=== PATIENT | male | born 1965 | race Caucasian/White ===

== ENCOUNTER 2017-07-26 15:25 | Inpatient (IN) | payer BC, SELFPAY ==
[2017-07-26 15:27] VITALS: BP 147/95; PULSE 92; RESP 17; TEMP 36.3; O2SAT 98; BMI 29.5
--- NOTE | 2017-07-26 15:46 | ED.VISSUMM ---
- ER Visit Summary Date of Service: 07/26/17 Chief Complaint: Alcohol withdrawal History of Present Illness: The patient is a 52 M who is requesting detox from alcohol. He has been drinking about half a gallon per day for about two years. Previously to that he was sober for about 4-5 years. His last drink was around 3 PM today, he had 5 shots of bourbon. Denies any other drug use, but did detox from opioids in the past. He is a smoker. He has a history of diabetes, high cholesterol, COPD, chronic kidney disease, thrombocytopenia, anemia, gout. Physical Examination: Afebrile and vital signs unremarkable. Head and neck atraumatic. Heart regular. Lungs clear. Abdomen soft. Skin appears normal in color. Test Results: Labs, Tox screen, and alcohol pending. Emergency Department Course and Treatment: Benefit from inpatient alcohol withdrawal. He tells me that he has a history of DTs, but no seizure history. He was treated with Ativan while awaiting results. social worker speaking with him, and she will speak with [employer]. Janel from [employer] says that the patient meets criteria for admission per CIWA score. They will follow the patient. Alcohol level 261 and tox screen positive for marijuana. White count 4.2, hemoglobin 12, platelets 60. Sodium 146 and glucose 116. Alk phos 122 and AST 64. Patient has a history of anemia and thrombocytopenia. No active bleeding. Hospitalist was contacted for admission. Treatment Plan: As above Disposition: Admission Impression: 1. Alcohol withdrawal 2. Thrombocytopenia This note was generated with [employer] dictation software. It may contain incorrect words, spelling, and punctuation that were not noted in review of the chart prior to signing ED Disposition - Plan for ED Patient: Chief Complaint: Subst Abuse Referrals: Care Physician,No Primary [Primary Care Provider] -
--- NOTE | 2017-07-26 15:49 | ED.DCSUM_ITS ---
- ER Visit Summary Date of Service: 07/26/17 Chief Complaint: Alcohol withdrawal History of Present Illness: The patient is a 52 M who is requesting detox from alcohol. He has been drinking about half a gallon per day for about two years. Previously to that he was sober for about 4-5 years. His last drink was around 3 PM today, he had 5 shots of bourbon. Denies any other drug use, but did detox from opioids in the past. He is a smoker. He has a history of diabetes, high cholesterol, COPD, chronic kidney disease, thrombocytopenia, anemia, gout. Physical Examination: Afebrile and vital signs unremarkable. Head and neck atraumatic. Heart regular. Lungs clear. Abdomen soft. Skin appears normal in color. Test Results: Labs, Tox screen, and alcohol pending. Emergency Department Course and Treatment: Benefit from inpatient alcohol withdrawal. He tells me that he has a history of DTs, but no seizure history. He was treated with Ativan while awaiting results. lavender farm worker speaking with him, and she will speak with [employer]. Janel from [employer] says that the patient meets criteria for admission per CIWA score. They will follow the patient. Alcohol level 261 and tox screen positive for marijuana. White count 4.2, hemoglobin 12, platelets 60. Sodium 146 and glucose 116. Alk phos 122 and AST 64. Patient has a history of anemia and thrombocytopenia. No active bleeding. Hospitalist was contacted for admission. Treatment Plan: As above Disposition: Admission Impression: 1. Alcohol withdrawal 2. Thrombocytopenia This note was generated with [employer] dictation software. It may contain incorrect words, spelling, and punctuation that were not noted in review of the chart prior to signing ED Disposition - Plan for ED Patient: Chief Complaint: Subst Abuse Referrals: Care Physician,No Primary [Primary Care Provider] -
--- NOTE | 2017-07-26 15:56 | CASEMGMT ---
Social Work Note Referral from Dr. Mirza that pt would benefit from detox and rehab. Face to face with the pt to discuss discharge plan. Introduced self and role at [facility]. Pt reports to live with his and insurance is provided through her employer. Pt states that he is interested in detox, but not inpatient rehabilitation. Educate pt to [facility] program here at [facility], but inform that they would like to see that he is willing to participate in follow-up care. Pt states that he would be willing to do outpatient rehab. Inform that SW will notify [facility] who will come to evaluate him as soon as they are available. Placed call to Janel who states that she would need to verify insurance, confirm pt's motivation to with follow-up care and review CIWA scores. Janel to come to unit as soon as she is able. Updated ED staff. Shelby Mercado, INTERNAL AUDIT MANAGER, BLOCKING MACHINE TENDER
--- NOTE | 2017-07-26 16:06 | CASEMGMT ---
Social Work Note Janel from [facility] on unit to evaluate. Shelby Mercado, DUST MILL OPERATOR, FIELD MARKETING LEAD
[2017-07-26] MEDS: LORazepam 2 MG/ML Syringe 1 MG IV (16:12)
[2017-07-26 16:37] LABS: Absolute Lymphocyte Count 1.36 X10^3/ul (0.83-4.51); Absolute Neutrophil Count 2.3 X10^3/uL (2.0-7.7); Basophil# 0.05 X10^3/uL; Basophil% 1.2 % (0-1); Eosinophils% 2.4 % (0-5); Hematocrit 36.4 % (40-54); Lymphocyte # 1.36 X10^3/ul (4.0); Lymphocyte % 32.6 % (19-41); Mean Corpuscular Volume 97.1 fL (80-94); Mean Platelet Vol. 10.9 fl (6.2-12.0); Monocyte# 0.38 X10^3/uL; Monocyte% 9.1 % (0-10); Neutrophil # 2.27 X10^3/uL (2.7-7.7); Neutrophil % 54.5 % (47-70); Platelet Count 60 K/mm3 (150-450); RBC Distribution Width CV 14.3 % (11.6-14.6); RBC Distribution Width SD 47.6 fl (35.1-43.9); Red Blood Count 3.75 M/mm3 (4.6-6.2); White Blood Count 4.2 K/mm3 (4.4-11.0)
[2017-07-26 16:38] LABS: ALB/GLOB Ratio 0.8 RATIO (0.9-2.4); AST(SGOT) 64 U/L (15-37); Alanine Aminotransfer ALT/SGPT 35 U/L (16-61); Albumin, Serum 3.1 g/dL (3.2-5.0); Alkaline Phosphatase 122 U/L (45-117); Anion Gap 8 (5-15); BUN 15 mg/dL (7-18); BUN/Creat Ratio 12.3 RATIO (10-20); Calcium,Total 7.7 mg/dL (8.5-10.1); Chloride 115 mmol/L (98-107); Creatinine, Serum 1.22 mg/dL (0.70-1.30); EST Glomerular Filtration Rate 67 mL/min (>60); Est Glom Filt Rate - Afr Amer 81 mL/min (>60); Globulin 4.1 g/dL (2.2-4.2); Glucose 116 mg/dL (74-106); Potassium 3.8 mmol/L (3.5-5.1); Protein, Total 7.2 g/dL (6.4-8.2); Sodium Level 146 mmol/L (136-145)
[2017-07-26 16:57] LABS: POSITIVE COUNT NO; POSITIVE DIFFERENTIAL NO; POSITIVE MORPHOLOGY NO
--- NOTE | 2017-07-26 17:00 | CASEMGMT ---
Social Work Note Updated by Janel from [facility] that after redoing the pt's CIWA score he is appropriate for their program as long as he does not need to be admitted to the hospital for medical management rather than just stabilization. Janel updated physician. Shelby Mercado, FARM SPECIALIST, CHIEF LIBRARIAN MUSIC DEPARTMENT
[2017-07-26 17:14] LABS: Amphetamine Urine VISTA NEGATIVE (<1000 ng/mL); Barbiturate Urine VISTA NEGATIVE (< 200 ng/mL); Benzodiazepine Urine VISTA NEGATIVE (< 200 ng/mL); Cocaine Urine VISTA NEGATIVE (< 300 ng/mL); Ecstacy Urine VISTA NEGATIVE (< 500 ng/mL); Methadone Urine VISTA NEGATIVE (< 300 ng/mL); PCP Urine VISTA NEGATIVE (< 25 ng/mL); THC Urine VISTA POSITIVE (< 50 ng/mL); Vista UDS pH Range 5
[2017-07-26 17:25] VITALS: BP 150/110
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
[2017-07-26 18:01] VITALS: BP 131/94; PULSE 91; RESP 18; O2SAT 97
[2017-07-26 18:15] VITALS: BMI 28.5
[2017-07-26 18:17] VITALS: BMI 28.6
[2017-07-26 18:23] VITALS: BP 136/89; PULSE 85; RESP 16; TEMP 36.7; O2SAT 98
[2017-07-26] MEDS: LORazepam 1 MG Tablet PO (18:45)
[2017-07-26 18:46] LABS: Bedside Glucose 200 mg/dL (70-110)
[2017-07-26 19:23] LABS: Hemoglobin A1c 5.8 % (4.2-6.3)
[2017-07-26 19:25] LABS: International Normalized Ratio 1.4; Prothrombin Time (Protime)PT. 17.5 SECONDS (11.7-14.9)
[2017-07-26] MEDS: hydrOXYzine PAM 25 MG Capsule 50 MG PO (21:43)
[2017-07-26] MEDS: Methocarbamol 750 MG Tablet PO (21:43)
[2017-07-26] MEDS: Glucerna Shake 120 ML LIQUID PO (21:43)
[2017-07-26] MEDS: traZODone 50 MG Tablet PO (21:43)
[2017-07-26 21:45] VITALS: BP 129/91; PULSE 107; RESP 16; TEMP 36.9; O2SAT 94
[2017-07-26 21:50] LABS: Bedside Glucose 115 mg/dL (70-110)
[2017-07-27] VITALS (9 sets, daily range): BP systolic 138–160; BP diastolic 90–106; PULSE 86–102; RESP 16–20; TEMP 37–37.4; O2SAT 95–99
[2017-07-27] MEDS: LORazepam 1 MG Tablet PO ×6 (00:31→21:34)
[2017-07-27] MEDS: Methocarbamol 750 MG Tablet PO ×3 (04:47→18:33)
[2017-07-27 06:41] LABS: Bedside Glucose 104 mg/dL (70-110)
[2017-07-27] MEDS: hydrOXYzine PAM 25 MG Capsule 50 MG PO ×3 (06:43→19:31)
[2017-07-27] MEDS: cloNIDine HCl 0.1 MG Tablet PO ×5 (06:43→18:33)
--- NOTE | 2017-07-27 07:48 | PN_ITS ---
Patient Problems: Active and Suspected Problems Alcohol withdrawal (Acute) Vitals/I&O's: Vital Signs Temp Pulse Resp BP Pulse Ox 99.1 F 102 H 16 160/106 H 95 07/27/17 04:52 07/27/17 04:52 07/27/17 04:52 07/27/17 04:52 07/27/17 04:52 Oxygen Delivery Method Room Air Weight: 202 lb Body Mass Index (BMI) 28.5 Intake and Output for Last 24 Hours 07/25/17 07/26/17 07/27/17 23:59 23:59 23:59 Intake Total 530 / 530 Balance 530 / 530 Laboratory Results 07/26/17 18:39: POC Glucose 200 H 07/26/17 18:56: PT 17.5 H, INR 1.4 07/26/17 18:56: Hemoglobin A1c 5.8 07/26/17 21:43: POC Glucose 115 H 07/27/17 06:38: POC Glucose 104 Current Medications Acetaminophen (Tylenol) 500 mg PO Q4H PRN PRN PRN Reason: Temp > 100.4 F Albuterol Sulfate (Ventolin Aerosols) 2.5 mg INHALATION Q4H PRN PRN Reason: SOB &/OR WHEEZING Albuterol Sulfate (Ventolin Aerosols) 2.5 mg INHALATION Q6HWA.RT [facility] Last Admin: 07/26/17 19:45 Dose: Not Given Budesonide (Pulmicort Aerosol) 0.5 mg INHALATION Q12H.RT [facility] Last Admin: 07/26/17 19:45 Dose: Not Given Clonidine (Catapres) 0.1 mg PO Q2H PRN PRN PRN Reason: sweating/anxiety Last Admin: 07/27/17 06:43 Dose: 0.1 mg Dextrose (D50w Syringe) 0 gm IV X1 PRN; Protocol PRN Reason: Hypoglycemia Folic Acid (Folic Acid) 1 mg PO DAILY@0800 [facility] Glucagon () 1 mg IM .X1 PRN PRN Reason: Hypoglycemia Hydroxyzine Pamoate (Vistaril Pamoate Capsule) 50 mg PO Q6H PRN PRN PRN Reason: Mild Anxiety (score 1/3) Last Admin: 07/27/17 06:43 Dose: 50 mg Loperamide HCl (Imodium) 2 - 4 mg PO UD PRN PRN Reason: LOOSE STOOLS Lorazepam (Ativan) 1 mg PO Q4H SOL PRN Reason: Taper Stop: 07/29/17 23:59 Last Admin: 07/27/17 04:47 Dose: 1 mg Magnesium Hydroxide (Milk Of Magnesia) 30 ml PO DAILY PRN PRN PRN Reason: Constipation Methocarbamol (Methocarbamol) 750 mg PO Q6H PRN PRN PRN Reason: Muscle Aches Last Admin: 07/27/17 04:47 Dose: 750 mg Nicotine (Nicoderm Cq (Pbkc)) 21 mg TRANSDERM. DAILY [facility] Nutritional Formula (Lactose Free) (Glucerna Shake) 120 ml PO 4X/DAY [facility] Last Admin: 07/26/17 21:43 Dose: 120 ml Senna (Senokot) 1 tablet PO QHS PRN PRN Reason: Constipation Sodium Chloride () 5 - 30 ml IV UD PRN PRN Reason: SALINE FLUSH Thiamine HCl (Vitamin B1) 100 mg PO DAILYCM [facility] Trazodone HCl (Desyrel) 50 mg PO QHS [facility] Last Admin: 07/26/17 21:43 Dose: 50 mg Medical Necessity - Tobacco Use Smoking Status: Current every day smoker Assessment/Plan Active and Suspected Problems Alcohol withdrawal (Acute)
[2017-07-27] MEDS: Folic Acid 1 MG Tablet PO (08:04)
[2017-07-27] MEDS: Thiamine Hydrochloride 100 MG Tablet PO (08:04)
--- NOTE | 2017-07-27 08:49 | US_ITS ---
STUDY: ABDOMINAL ULTRASOUND - RIGHT UPPER QUADRANT REASON FOR VISIT: Male, 52 years old. History of hepatosplenomegaly. TECHNIQUE: Ultrasound evaluation of the right upper quadrant was performed with real-time and static lundberg-scale imaging. TECHNICAL QUALITY: Adequate. COMPARISON: Comparison is made with prior study dated February 28, 2017. FINDINGS: Liver: The liver is enlarged and measures 20.4 cm. There is increased echogenicity consistent with fatty infiltration. The bile ducts are within normal limits. There is hepatic color flow. The direction of portal flow is hepatopetal. There is no demonstrated mass lesion. Gallbladder: Normal distended gallbladder. The gallbladder wall measures 3.4 mm. There is a negative sonographic Delgado's sign. There is no pericholecystic fluid. There are no gallstones. Common Bile Duct (C.B.D.): The common bile duct measures 3.7 mm. Pancreas: There is nonvisualization of the pancreas due to overlying bowel gas. Right Kidney: Normal size of the right kidney. The right kidney measures 9.7 cm x 4.2 cm x 5.5 cm. Normal renal cortex. The right cortex measures 1.7 cm. There is no demonstrated renal mass or cyst. There is no right hydronephrosis. There is evidence of splenomegaly. The spleen measures 16.9 cm x 7.2 cm x 7.3 cm. Small amount of ascites. US/Abdomen Limited IMPRESSION: Hepatosplenomegaly. Small amount of ascites. Electronically Signed: Raad Mcdonough MD at 10:09 EDT Tel [phone], Service support ,
[2017-07-27] MEDS: Glucerna Shake 120 ML LIQUID PO ×3 (09:38→21:34)
--- NOTE | 2017-07-27 10:09 | CASEMGMT ---
Social Work Note SW received a call from TERRI Silver that pt has a referral for [facility]. TERRI Silver asked this worker to check with Janel at [facility] to see if she will be following up with pt. SW placed call to Janel at [phone] and per Janel she will be seeing pt today for [facility]. Plan: [facility] Maranda Carrillo FABRICATING MACHINE OPERATOR, TRAVEL REGISTERED NURSE PACU
[2017-07-27 11:50] LABS: Bedside Glucose 212 mg/dL (70-110)
--- NOTE | 2017-07-27 12:52 | CHAPLAIN ---
Type of Pastoral Visit _x__ Initial Visit ___ Follow-up Visit ___ On-call Visit ___ General Patient Visit ___ Spiritual Assessment ___ Family Conference ___ Bereavement ___ Rapid Response ___ Code Blue ___ Other (describe below) Pastoral Care Referral From _x__ Patient ___ Family ___ Nurse ___ Physician ___ Security Compliance Engineer ___ Log Manager ___ Other (describe below) Sacrament/Intervention _x__ Active listening ___ Anointing ___ Hindu ___ Bereavement ___ Communion ___ Juliette exploration ___ ___ Life review ___ Prayer ___ Reconciliation ___ Sacrament of Sick _x__ Supportive presence ___ Wedding ___ Other (describe below) Pastoral Comments
--- NOTE | 2017-07-27 15:29 | PN_ITS ---
<Timoteo Cabrera - Last Filed: 07/27/17 15:23> Patient Problems: Active and Suspected Problems Alcohol withdrawal (Acute) Subjective: Current complaints include tremor in the upper extremities with muscle twitching in the left arm, nausea without vomiting, agitation, restlessness, hadache. No dizzy or LH at rest or with ambulation to the bathroom. Denies hx of withdrawal seizure. - Physical Exam General: Alert, Oriented x3, Cooperative HEENT: Atraumatic, PERRLA, EOMI, Normocephalic Neck: Supple, No JVD, Negative Carotid Bruits Lungs: Clear to auscultation, Normal air movement Cardiovascular: Regular rate, No murmurs Abdomen: Bowel Sounds Present, Soft, Non Tender Extremities: No edema, Capillary Refill Less than 3 Seconds Skin: No rashes, No breakdown Musculoskeletal: No Tenderness to Palpation of Joints or Extremities Neurological: Cranial nerves II-XII grossly intact, - - tremor BL upper ext, neg asterixis. Psych/Mental Status: Normal Affect, Appropriate, Alert and oriented to time, place, person, mood and affect Vital Signs Temp Pulse Resp BP Pulse Ox 98.6 F 90 18 139/96 H 98 07/27/17 12:55 07/27/17 12:55 07/27/17 12:55 07/27/17 12:55 07/27/17 12:52 Oxygen Delivery Method Room Air Weight: 91.6 kg Body Mass Index (BMI) 28.5 Intake and Output for Last 24 Hours 07/25/17 07/26/17 07/27/17 23:59 23:59 23:59 Intake Total 890 / 890 Balance 890 / 890 Laboratory Tests Past 24 Hrs 07/26/17 07/26/17 18:56 18:56 PT 17.5 H INR 1.4 Hemoglobin A1c 5.8 POC Glucose 07/27/17 07/27/17 07/26/17 11:46 06:38 21:43 POC Glucose 212 H 104 115 H 07/26/17 18:39 POC Glucose 200 H Medical Necessity - Tobacco Use Smoking Status: Current every day smoker Assessment/Plan Active and Suspected Problems Alcohol withdrawal (Acute) 1. Acute alcohol withdrawal - continue medical stabilization protocol, thiamine , folic acid. Current symtpoms include tremor, agitation, restlessness, nausea. Mildly elevated LFTs. Abdominal US with hepatosplenomegaly, small amount of ascites. 2. Pancytopenia, etiology unclear, possibly 2/2 liver disease. 3. CKD II - follows Dr. Baig as outpatient. GFR 67. 4. DMt2 - SSI, A1C 5.8 (prediabetes level) Carb controlled diet. 5. Mild htn - if continues through admission likely would benefit from starting antihypertensive at DC. Medical Stabilization Day 2 of 4. This patient was seen by Timoteo Cabrera PA-C under the supervision of Doctor Celio. <Tariq Pickens - Last Filed: 07/27/17 17:13> Subjective: Patient complaint of black stool before admission. He did not had any GI bleed. Complaint of withdrawal symptoms including nausea restlessness, muscle cramps. Abdominal sonogram revealed fatty infiltration of liver with splenomegaly - Physical Exam Lungs: Clear to auscultation, Normal air movement Cardiovascular: Regular rate, No murmurs Vital Signs Temp Pulse Resp BP Pulse Ox 99.2 F H 86 20 H 149/98 H 98 07/27/17 16:00 07/27/17 16:00 07/27/17 16:00 07/27/17 16:00 07/27/17 16:00 Oxygen Delivery Method Room Air Weight: 201 lb 15.095 oz Body Mass Index (BMI) 28.5 Intake and Output for Last 24 Hours 07/25/17 07/26/17 07/27/17 23:59 23:59 23:59 Intake Total 890 / 890 Balance 890 / 890 Laboratory Tests Past 24 Hrs 07/26/17 07/26/17 18:56 18:56 PT 17.5 H INR 1.4 Hemoglobin A1c 5.8 POC Glucose 07/27/17 07/27/17 07/27/17 16:32 11:46 06:38 POC Glucose 134 H 212 H 104 07/26/17 07/26/17 21:43 18:39 POC Glucose 115 H 200 H Assessment/Plan This patient was seen in conjunction with Timoteo CASAREZ. I have independently interviewed and examined the patient and reviewed pertinent history, examination findings, laboratory and plan of management. I have reviewed the note and agree with the documented findings with the few additional points. In brief, patient is admitted for alcohol withdrawal with chronic alcohol use and dependence. He also has pancytopenia secondary to alcoholic liver disease with WBC count 4.1.2 platelet count 60,000. Patient also complained of back stool before admission 60 of melena. Discussed with GI Dr. Butterfield. He suggested to call tomorrow after CBC. If hemoglobin drops, will need EGD. Abdominal ultrasound shows hepatosplenomegaly and small ascites. On Protonix 40 mg IV every 12 hourly, CBC tomorrow a.m. Avoid NSAIDs, antiplatelet agent and steroids. I have discussed my assessment with Timoteo CASAREZ and orders have been reviewed. Laboratory Results 07/26/17 16:15: Ethyl Alcohol 261.0 07/26/17 16:35: Urine Opiates Screen NEGATIVE, Urine Methadone Screen NEGATIVE, Ur Barbiturates Screen NEGATIVE, Ur Phencyclidine Scrn NEGATIVE, Ur Amphetamines Screen NEGATIVE, U Methamphetamin-MDMA NEGATIVE, U Benzodiazepines Scrn NEGATIVE, Urine Cocaine Screen NEGATIVE, U Cannabinoids Screen POSITIVE H 07/26/17 18:39: POC Glucose 200 H 07/26/17 18:56: PT 17.5 H, INR 1.4 07/26/17 18:56: Hemoglobin A1c 5.8 07/26/17 21:43: POC Glucose 115 H 07/27/17 06:38: POC Glucose 104 07/27/17 11:46: POC Glucose 212 H 07/27/17 16:32: POC Glucose 134 H Clinical Impression(s) from Imaging Studies Abdomen Ultrasound 07/27/17 08:49 IMPRESSION: Hepatosplenomegaly. Small amount of ascites. Code Visit Inpatient E&M: 62101 Subs Hosp L3
[2017-07-27 16:36] LABS: Bedside Glucose 134 mg/dL (70-110)
--- NOTE | 2017-07-27 17:43 | NURSING ---
SAID NURSE IN TO PT ROOM, PT OPENS EYES UPON NURSE ENTERING ROOM. UPDATED ON NEW ORDERS RECEIVED- PT STATES I DO NOT WANT ONE OF THOSE THINGS IN MY VEINS. FURTHER EDUCATION PROVIDED ON ORDERS/MEDS/TREATMENTS ORDERED BY MD/ WELL PT RIGHTS. PT POLITE BUT STATES HE DOES NOT WANT AN IV AT THIS TIME. SAID NURSE WILL NOTIFY MD OF PT REFUSING IV START AT THIS TIME.
[2017-07-27] MEDS: Pantoprazole Sodium 40 MG Tablet PO (18:32)
[2017-07-27] MEDS: traZODone 50 MG Tablet PO (21:34)
--- NOTE | 2017-07-28 04:05 | NURSING ---
Addendum entered by Deana Bey 07/28/17 07:10: Patient a&o x3 prior to leaving. patient does not appear to be at risk of harm to himself or others. Original Note: This RN into patient room to complete rounding and medicate patient. Patient not in room no belongs in room or closet. supervisor quilting notified and floor checked for patient. Patient not found on floor. Nursing bleach supervisor and Dr. Egan notified by charge.
--- NOTE | 2017-07-28 04:08 | NURSING ---
Notified supervisor composing room that patient has left AMA without notifying staff. Notified Hospitalist as well that patient has left.
--- NOTE | 2017-07-28 07:14 | NURSING ---
This nurse called patient's home phone and left a message for patient to call the floor to let know if is okay.
--- NOTE | 2017-07-28 07:35 | PCM.DC.SUM ---
Discharge Date and Diagnosis Date of Admission: 07/26/17 - Secondary Discharge Diagnosis Chronic Problems CKD (chronic kidney disease) stage 2, GFR 60-89 ml/min (Chronic) Pancytopenia (Chronic) CRF (chronic renal failure) (Chronic) COPD (chronic obstructive pulmonary disease) (Chronic) HLD (hyperlipidemia) (Chronic) Nicotine dependence (Chronic) Diabetes mellitus, type II (Chronic) Hyperuricemia (Chronic) History of positive PPD, untreated (Chronic) Gout (Chronic) EtOH dependence (Chronic) Hospital Course and Treatment Operations: None Summary of Care Provided: The patient is a 52 year old M [] Home Medications: Medications to take at Discharge Albuterol Inhaler [Ventolin Hfa (SP)] 1 - 2 puff INHALATION Q4H PRN PRN 02/27/17 Mometasone/Formoterol [Dulera 200 Mcg/5 Mcg Inhaler] 2 puff IH BID PRN PRN 07/26/17 Primary Care Physician: Care Physician,No Primary [Primary Care Provider] - Medical Necessity - Tobacco Use Smoking Status: Current every day smoker
--- NOTE | 2017-07-28 13:42 | PCM.DC.SUM ---
<Timoteo Cabrera - Last Filed: 07/28/17 13:42> Discharge Date and Diagnosis Date of Admission: 07/26/17 Date of Discharge: 07/28/17 - Primary Discharge Diagnosis Acute alcohol withdrawal Suspected mild blood loss anemia with melanotic stools pancytopenia CKDII HTN - Secondary Discharge Diagnosis Chronic Problems CKD (chronic kidney disease) stage 2, GFR 60-89 ml/min (Chronic) Pancytopenia (Chronic) CRF (chronic renal failure) (Chronic) COPD (chronic obstructive pulmonary disease) (Chronic) HLD (hyperlipidemia) (Chronic) Nicotine dependence (Chronic) Diabetes mellitus, type II (Chronic) Hyperuricemia (Chronic) History of positive PPD, untreated (Chronic) Gout (Chronic) EtOH dependence (Chronic) Hospital Course and Treatment Imaging Results: US/Abdomen Limited IMPRESSION: Hepatosplenomegaly. Small amount of ascites. Consults: [facility] - GI Operations: None Procedures: None Summary of Care Provided: Physical exam on day of discharge: Completed as patient left AMA before he can be examined. Hospital Course: The patient is a 52 year old M with a hx of alcoholism, htn, and CKD II who presented to the ER with acute alcohol intoxication seeking help for detox. He was admitted to the hospital on the alcohol withdrawal protocol. His tox screen also revealed cannabinoids. Glucose was elevated and his A1C was prediabetic at 5.8. He had panyctopenia with a hgb of 12 and platelets of 60 and did report some melanotic stools prior to presentation. An ultrasound of his abdomen revealed hepatosplenomegaly and a small amount of ascites. Dr. Butterfield was consulted who planned to do an EGD however the patient left AGAINST MEDICAL ADVICE early in the morning on 07.28.2017. [] Discharge Diet: - - no recommendations made as pt left AMA Discharge Activity: - - no recommendations made as pt left AMA Home Medications: Medications to take at Discharge Albuterol Inhaler [Ventolin Hfa (SP)] 1 - 2 puff INHALATION Q4H PRN PRN 02/27/17 Mometasone/Formoterol [Dulera 200 Mcg/5 Mcg Inhaler] 2 puff IH BID PRN PRN 07/26/17 Primary Care Physician: Care Physician,No Primary [Primary Care Provider] - Disposition: Against Medical Advice Minutes spent on discharge:: 35 Patient Condition:: Guarded Medical Necessity - Tobacco Use Smoking Status: Current every day smoker Meaningful Use Info Meaningful Use Diagnoses (Choose all that apply): None applicable <Tariq Pickens - Last Filed: 07/28/17 16:45> Discharge Date and Diagnosis - Secondary Discharge Diagnosis Chronic Problems CKD (chronic kidney disease) stage 2, GFR 60-89 ml/min (Chronic) Pancytopenia (Chronic) CRF (chronic renal failure) (Chronic) COPD (chronic obstructive pulmonary disease) (Chronic) HLD (hyperlipidemia) (Chronic) Nicotine dependence (Chronic) Diabetes mellitus, type II (Chronic) Hyperuricemia (Chronic) History of positive PPD, untreated (Chronic) Gout (Chronic) EtOH dependence (Chronic) Hospital Course and Treatment Summary of Care Provided: In brief, patient is admitted for alcohol withdrawal with chronic alcohol use and dependence. He also has pancytopenia secondary to alcoholic liver disease with WBC count 4.1.2 platelet count 60,000. Patient also complained of back stool before admission 60 of melena. Discussed with GI Dr. Butterfield on 07/27/2017. He suggested to call tomorrow after CBC. There was plan for CBC motor expert today and if there is drop in hematocrit, possible EGD. But patient signed AMA and left motor expert before blood draw. Abdominal ultrasound shows hepatosplenomegaly and small ascites. Patient was on Protonix 40 mg IV every 12 hourly I have discussed my assessment with Timoteo CASAREZ and orders have been reviewed. [] Code Visit Inpatient E&M: 19161 Disch Hosp
--- NOTE | 2017-07-28 13:52 | DS.PCM_ITS ---
<Timoteo Cabrera - Last Filed: 07/28/17 13:42> Discharge Date and Diagnosis Date of Admission: 07/26/17 Date of Discharge: 07/28/17 - Primary Discharge Diagnosis Acute alcohol withdrawal Suspected mild blood loss anemia with melanotic stools pancytopenia CKDII HTN - Secondary Discharge Diagnosis Chronic Problems CKD (chronic kidney disease) stage 2, GFR 60-89 ml/min (Chronic) Pancytopenia (Chronic) CRF (chronic renal failure) (Chronic) COPD (chronic obstructive pulmonary disease) (Chronic) HLD (hyperlipidemia) (Chronic) Nicotine dependence (Chronic) Diabetes mellitus, type II (Chronic) Hyperuricemia (Chronic) History of positive PPD, untreated (Chronic) Gout (Chronic) EtOH dependence (Chronic) Hospital Course and Treatment Imaging Results: US/Abdomen Limited IMPRESSION: Hepatosplenomegaly. Small amount of ascites. Consults: [facility] - GI Operations: None Procedures: None Summary of Care Provided: Physical exam on day of discharge: Completed as patient left AMA before he can be examined. Hospital Course: The patient is a 52 year old M with a hx of alcoholism, htn, and CKD II who presented to the ER with acute alcohol intoxication seeking help for detox. He was admitted to the hospital on the alcohol withdrawal protocol. His tox screen also revealed cannabinoids. Glucose was elevated and his A1C was prediabetic at 5.8. He had panyctopenia with a hgb of 12 and platelets of 60 and did report some melanotic stools prior to presentation. An ultrasound of his abdomen revealed hepatosplenomegaly and a small amount of ascites. Dr. Butterfield was consulted who planned to do an EGD however the patient left AGAINST MEDICAL ADVICE early in the morning on 07.28.2017. [] Discharge Diet: - - no recommendations made as pt left AMA Discharge Activity: - - no recommendations made as pt left AMA Home Medications: Medications to take at Discharge Albuterol Inhaler [Ventolin Hfa (SP)] 1 - 2 puff INHALATION Q4H PRN PRN Mometasone/Formoterol [Dulera 200 Mcg/5 Mcg Inhaler] 2 puff IH BID PRN PRN 07/26 Primary Care Physician: Care Physician,No Primary [Primary Care Provider] - Disposition: Against Medical Advice Minutes spent on discharge:: 35 Patient Condition:: Guarded Medical Necessity - Tobacco Use Smoking Status: Current every day smoker Meaningful Use Info Meaningful Use Diagnoses (Choose all that apply): None applicable <Tariq Pickens - Last Filed: 07/28/17 16:45> Discharge Date and Diagnosis - Secondary Discharge Diagnosis Chronic Problems CKD (chronic kidney disease) stage 2, GFR 60-89 ml/min (Chronic) Pancytopenia (Chronic) CRF (chronic renal failure) (Chronic) COPD (chronic obstructive pulmonary disease) (Chronic) HLD (hyperlipidemia) (Chronic) Nicotine dependence (Chronic) Diabetes mellitus, type II (Chronic) Hyperuricemia (Chronic) History of positive PPD, untreated (Chronic) Gout (Chronic) EtOH dependence (Chronic) Hospital Course and Treatment Summary of Care Provided: In brief, patient is admitted for alcohol withdrawal with chronic alcohol use and dependence. He also has pancytopenia secondary to alcoholic liver disease with WBC count 4.1.2 platelet count 60,000. Patient also complained of back stool before admission 60 of melena. Discussed with GI Dr. Butterfield on 2017. He suggested to call tomorrow after CBC. There was plan for CBC laboratory coordinator today and if there is drop in hematocrit, possible EGD. But patient signed AMA and left laboratory coordinator before blood draw. Abdominal ultrasound shows hepatosplenomegaly and small ascites. Patient was on Protonix 40 mg IV every 12 hourly I have discussed my assessment with Timtoeo CASAREZ and orders have been reviewed. [] Code Visit Inpatient E&M: 92008 Disch Hosp
== END 2017-07-28 04:12 | disposition left against medical advice (07) | DRG 894 ==
LOC: ED 17:40 → MS2 17:47
PROVIDERS: Emergency Provider Emergency Medicine; Visit Provider Internal Medicine
DX: F10.239 Alcohol dependence with withdrawal, unspecified (principal); D61.818 Other pancytopenia; R18.8 Other ascites; K92.1 Melena; F10.229 Alcohol dependence with intoxication, unspecified; Y90.8 Blood alcohol level of 240 mg/100 ml or more; D50.0 Iron deficiency anemia secondary to blood loss (chronic); J44.9 Chronic obstructive pulmonary disease, unspecified; E11.22 Type 2 diabetes mellitus with diabetic chronic kidney disease; I12.9 Hypertensive chronic kidney disease with stage 1 through stage 4 chronic kidney disease, or unspecified chronic kidney disease; N18.2 Chronic kidney disease, stage 2 (mild); E78.5 Hyperlipidemia, unspecified; F17.200 Nicotine dependence, unspecified, uncomplicated
CPT/HCPCS: 36415; 76705; 80053; 80307; 80320; 82962; 83036; 85025; 85610; 97802; 99284; 99406; G0480

== ENCOUNTER 2017-12-30 17:46 | Emergency (ER) | payer BC, SELFPAY ==
[2017-12-30 17:48] VITALS: BP 153/100; PULSE 104; RESP 17; TEMP 36.9; O2SAT 97; BMI 28.7
--- NOTE | 2017-12-30 18:05 | EKG12_ITS ---
Test Reason : SOB Blood Pressure : / mmHG Vent. Rate : 102 BPM Atrial Rate : 102 BPM P-R Int : 158 ms QRS Dur : 098 ms QT Int : 346 ms P-R-T Axes : 053 034 030 degrees QTc Int : 450 ms Sinus tachycardia Septal infarct , age undetermined Abnormal ECG Confirmed by JENNIFER TANNER, IAM ([id number]), electronic news gathering editor LA GREGORY ([id number]) on 01/03/2018 3:06:59 PM Referred By: Joana Mosley Confirmed By:IAM RODRIGUEZ MD
--- NOTE | 2017-12-30 18:06 | CT_ITS ---
STUDY: CTA CHEST REASON FOR EXAM: Male, 52 years old. HEMOPTYSIS X 5 DAYS RADIATION DOSAGE (If Supplied By Facility): CTDIvol = ( 13.8 ) mGy, DLP = ( 684.54 ) mGycm TECHNIQUE: The examination was performed with the intravenous administration of 100 ml of Isovue 370 contrast material. Post-processing of the angiographic images was performed, with multiplanar reformation and 3D reconstruction. Individualized dose optimization techniques were used for this CT. COMPARISON: None. FINDINGS: Normal enhancement of the main pulmonary artery and right and left pulmonary arteries. Normal enhancement of the bilateral peripheral pulmonary arteries. There is no demonstrated pulmonary embolism. Normal thoracic aorta and visualized great vessels. There is no demonstrated aortic dissection. Normal heart and pericardium. Normal mediastinum. Normal hilar regions. Normal visualized trachea and bronchi. The lungs are well expanded. Normal pulmonary parenchyma. Normal pleura. Normal chest wall structures. There are degenerative changes of thoracic spine. The liver is nodular in appearance. A focal mass is not identified. The finding is consistent for hepatic cirrhosis. Abdominal ascites CT/CTA Chest W/WO Contrast IMPRESSION: Hepatic cirrhosis Abdominal ascites No demonstrated pulmonary embolism or arterial dissection. Electronically Signed: Abimael Cortez MD at 20:20 EDT , Service support ,
[2017-12-30 18:11] VITALS: O2SAT 97
[2017-12-30 18:26] VITALS: PULSE 98; RESP 14
[2017-12-30] MEDS: Albuterol 2.5 MG/3 ML VIAL.NEB. INHALATION ×2 (18:26→18:47)
[2017-12-30] MEDS: Ipratropium/Albuterol Sulfate 3 ML AMPUL.NEB INHALATION (18:26)
[2017-12-30 18:48] VITALS: PULSE 105; RESP 14
[2017-12-30 21:29] VITALS: BP 158/108; PULSE 104
--- NOTE | 2017-12-30 21:44 | ED.VISSUMM ---
- ER Visit Summary Date of Service: 12/30/17 Chief Complaint: Hemoptysis, shortness of breath, dyspnea on exertion, COPD History of Present Illness: The patient is a 52 M who presents because of hemoptysis for the past 5 days. He has history of COPD. He reports cough and shortness of breath with dyspnea on exertion for the past week. He was a smoker of 2 packs per day. He presently is smoking 1/2-1 pack per day. He denies weight loss but does admit to night sweats. Review of prior records indicates he had a positive PPD with no follow-up or treatment. He does admit to drinking daily. He denies ocular, visual or auditory symptoms. He denies chest pain. He denies nausea, vomiting or diarrhea. He does report increased abdominal girth with weight gain. He denies orthopnea or PND. He denies black or maroon stool. He denies change in the color of his urine, dysuria, frequency, urgency or hematuria. Blood work was obtained 2 weeks ago and his CBC was unremarkable. Electrolyte panel including ALT was normal. A1c was 6.8. Lipid panel was normal chest pain symptoms No demonstrated pulmonary embolism or arterial dissection.mal. Triglycerides, HDL and LDL were unremarkable. TSH was elevated at 7.65. Physical Examination: Patient appears older than reported age. Head is atraumatic normocephalic. Pupils are equal round reactive. Extraocular muscles are intact. TMs are pearly white with landmarks noted. Nares patent with no drainage. Posterior pharynx without erythema or exudate. Uvula is midline. There is no dysphonia or dysphasia. Trachea is midline. There is no stridor with auscultation of the neck. Lungs reveal increased expiratory phase with wheezing throughout decreased air movement. Heart is regular without murmur, gallop or rub. Abdomen is distended tympanitic questionable fluid wave. Minimal edema of the feet. Neuro exam is nonfocal. Test Results: CTA of the chest was obtained and revealed: IMPRESSION: Hepatic cirrhosis Abdominal ascites No demonstrated pulmonary embolism or arterial dissection. Emergency Department Course and Treatment: With history of positive PPD on treated CT a was obtained to evaluate for pulmonary embolus, pneumonia, and/or cavitary lesions and since he complains of shortness of breath with night sweats and hemoptysis. He was treated with DuoNeb albuterol. He was reassessed and is wheeze free. Treatment Plan: Prescription for albuterol and prednisone. He was referred to Dr. Rod Villegas Disposition: Discharged to home Impression: 1. Exacerbation of COPD with bronchospasm 2. Hemoptysis 3. Alcoholic liver disease, cirrhosis 4. Ascites secondary #3 This note was generated with [employer] dictation software. It may contain incorrect words, spelling, and punctuation that were not noted in review of the chart prior to signing ED Disposition - Plan for ED Patient: Disposition: Home or Assisted Living Chief Complaint: GI Bleed Instructions: ED COPD Flare, ED Ascites, ED Cirrhosis Liver Prescriptions: Albuterol Inhaler [Ventolin Hfa] 2 puff INHALATION Q4H PRN PRN #1 inhaler PRN Reason: Wheezing Azithromycin [Zithromax Z-Frank] 250 mg PO UD #1 box Prednisone [Deltasone] 40 mg PO DAILY #10 tab Referrals: [facility] Nancy Gibbs [Primary Care Provider] - 3-5 Days Rod Villegas DO [STAFF PHYSICIAN] - 1 Week
[2017-12-30] MEDS: chlordiazePOXIDE 25 MG Capsule 50 MG PO (21:45)
[2017-12-30 22:33] VITALS: BP 139/102; PULSE 110; RESP 18; O2SAT 97
== END 2017-12-30 22:34 | disposition home or self-care (01) ==
PROVIDERS: Emergency Provider Emergency Medicine
DX: J44.1 Chronic obstructive pulmonary disease with (acute) exacerbation (principal); R04.2 Hemoptysis; K70.31 Alcoholic cirrhosis of liver with ascites; N18.6 End stage renal disease; E11.9 Type 2 diabetes mellitus without complications; E66.9 Obesity, unspecified; Z72.0 Tobacco use; M10.9 Gout, unspecified
CPT/HCPCS: 71275; 93005; 94640; 99284; Q9967; A4216

== ENCOUNTER → 2018-02-03 16:37 | Outpatient (CLI) | payer BC, SELFPAY ==
[2018-02-03 17:37] LABS: Absolute Lymphocyte Count 0.97 X10^3/ul (0.83-4.51); Basophil# 0.03 X10^3/uL; Basophil% 0.7 % (0-1); Eosinophil# 0.04 X10^3/uL; Eosinophils% 0.9 % (0-5); Hematocrit 29.2 % (40-54); Hemoglobin 9.6 g/dl (13.0-16.5); Lymphocyte # 0.97 X10^3/ul (4.0); Mean Corp Hgb Conc 32.9 g/gl (32-36); Mean Corpuscular Hgb 33.4 pg (27.0-32.0); Mean Corpuscular Volume 101.7 fL (80-94); Mean Platelet Vol. 10.7 fl (6.2-12.0); Monocyte# 0.37 X10^3/uL; Monocyte% 8.4 % (0-10); Neutrophil # 2.98 X10^3/uL (2.7-7.7); Neutrophil % 67.8 % (47-70); Platelet Count 55 K/mm3 (150-450); RBC Distribution Width CV 13.1 % (11.6-14.6); Red Blood Count 2.87 M/mm3 (4.6-6.2); White Blood Count 4.4 K/mm3 (4.4-11.0)
[2018-02-03 17:43] LABS: POSITIVE COUNT NO; POSITIVE DIFFERENTIAL NO; POSITIVE MORPHOLOGY NO
[2018-02-03 18:56] LABS: ALB/GLOB Ratio 0.7 RATIO (0.9-2.4); AST(SGOT) 127 U/L (15-37); Alanine Aminotransfer ALT/SGPT 44 U/L (16-61); Albumin, Serum 2.9 g/dL (3.2-5.0); Alkaline Phosphatase 87 U/L (45-117); Anion Gap 8 (5-15); BUN 22 mg/dL (7-18); Calcium,Total 8.4 mg/dL (8.5-10.1); Chloride 101 mmol/L (98-107); Creatinine, Serum 1.83 mg/dL (0.70-1.30); EST Glomerular Filtration Rate 42 mL/min (>60); Est Glom Filt Rate - Afr Amer 51 mL/min (>60); Globulin 4.1 g/dL (2.2-4.2); Glucose 126 mg/dL (74-106); Potassium 4.1 mmol/L (3.5-5.1); Sodium Level 137 mmol/L (136-145)
[2018-02-07 11:58] LABS: Ferritin 356 ng/mL (26-388); Iron 65 ug/dL (65-175); Iron Binding Capacity,Total 249 ug/dL (250-450); PERCENT IRON SATURATION 26.1 % (15.0-55.0)
[2018-02-08 14:51] LABS: HEPATITIS B SURFACE AG Negative (Negative); Hep B Surface Antibodies Non Reactive (.); Hep C Antibodies <0.1 s/co ratio (0.0-0.9); Vitamin B1, Thiamine 39.9 nmol/L (66.5-200.0)
== END ==
PROVIDERS: Family Provider Family Medicine; PCP Family Medicine; Visit Provider Family Medicine
DX: D64.9 Anemia, unspecified (principal); K74.60 Unspecified cirrhosis of liver; F10.10 Alcohol abuse, uncomplicated
CPT/HCPCS: 36415; 80053; 82140; 82728; 82746; 83540; 83550; 84425; 85025; 86706; 86803; 87340

== ENCOUNTER → 2018-02-17 15:51 | Outpatient (CLI) | payer BC, SELFPAY ==
[2018-02-17 17:35] LABS: Absolute Lymphocyte Count 0.83 X10^3/ul (0.83-4.51); Absolute Neutrophil Count 2.6 X10^3/uL (2.0-7.7); Basophil# 0.02 X10^3/uL; Basophil% 0.5 % (0-1); Eosinophil# 0.04 X10^3/uL; Hematocrit 34.9 % (40-54); Hemoglobin 11.6 g/dl (13.0-16.5); Lymphocyte # 0.83 X10^3/ul (4.0); Lymphocyte % 21.6 % (19-41); Mean Corp Hgb Conc 33.2 g/gl (32-36); Mean Corpuscular Hgb 33.2 pg (27.0-32.0); Monocyte# 0.34 X10^3/uL; Monocyte% 8.9 % (0-10); Neutrophil # 2.61 X10^3/uL (2.7-7.7); Platelet Count 63 K/mm3 (150-450); RBC Distribution Width CV 12.5 % (11.6-14.6); RBC Distribution Width SD 44.2 fl (35.1-43.9); Red Blood Count 3.49 M/mm3 (4.6-6.2); White Blood Count 3.8 K/mm3 (4.4-11.0)
[2018-02-17 17:46] LABS: Vitamin B12 619 pg/mL (211-911)
[2018-02-17 17:48] LABS: ALB/GLOB Ratio 0.7 RATIO (0.9-2.4); AST(SGOT) 50 U/L (15-37); Alanine Aminotransfer ALT/SGPT 31 U/L (16-61); Alkaline Phosphatase 98 U/L (45-117); Anion Gap 7 (5-15); BUN 11 mg/dL (7-18); BUN/Creat Ratio 8.7 RATIO (10-20); Calcium,Total 8.3 mg/dL (8.5-10.1); Chloride 105 mmol/L (98-107); Creatinine, Serum 1.27 mg/dL (0.70-1.30); EST Glomerular Filtration Rate 64 mL/min (>60); Est Glom Filt Rate - Afr Amer 77 mL/min (>60); Globulin 4.4 g/dL (2.2-4.2); Glucose 149 mg/dL (74-106); Protein, Total 7.4 g/dL (6.4-8.2); Sodium Level 138 mmol/L (136-145); Uric Acid 5.6 mg/dL (3.5-7.2)
[2018-02-17 17:57] LABS: Hemoglobin A1c 7.2 % (4.2-6.3)
[2018-02-17 18:05] LABS: POSITIVE COUNT NO; POSITIVE DIFFERENTIAL NO; POSITIVE MORPHOLOGY NO
== END ==
PROVIDERS: Family Provider Family Medicine; PCP Family Medicine; Visit Provider Family Medicine
DX: E11.9 Type 2 diabetes mellitus without complications (principal); D53.9 Nutritional anemia, unspecified; M10.9 Gout, unspecified; K74.60 Unspecified cirrhosis of liver; E51.9 Thiamine deficiency, unspecified
CPT/HCPCS: 36415; 80053; 82607; 83036; 84550; 85025

== ENCOUNTER → 2018-04-05 14:32 | Outpatient (CLI) | payer BC, SELFPAY ==
[2018-04-05 15:53] LABS: Absolute Lymphocyte Count 0.77 X10^3/ul (0.83-4.51); Absolute Neutrophil Count 2.4 X10^3/uL (2.0-7.7); Basophil# 0.02 X10^3/uL; Basophil% 0.5 % (0-1); Eosinophil# 0.11 X10^3/uL; Hemoglobin 12.5 g/dl (13.0-16.5); Lymphocyte # 0.77 X10^3/ul (4.0); Lymphocyte % 21.2 % (19-41); Mean Corp Hgb Conc 32.9 g/gl (32-36); Mean Corpuscular Hgb 30.7 pg (27.0-32.0); Mean Corpuscular Volume 93.4 fL (80-94); Mean Platelet Vol. 11.3 fl (6.2-12.0); Monocyte% 8.2 % (0-10); Neutrophil # 2.43 X10^3/uL (2.7-7.7); Neutrophil % 66.8 % (47-70); Platelet Count 60 K/mm3 (150-450); RBC Distribution Width SD 43.2 fl (35.1-43.9); Red Blood Count 4.07 M/mm3 (4.6-6.2); White Blood Count 3.6 K/mm3 (4.4-11.0)
[2018-04-05 15:56] LABS: POSITIVE COUNT NO; POSITIVE DIFFERENTIAL NO; POSITIVE MORPHOLOGY NO
[2018-04-05 16:54] LABS: ALB/GLOB Ratio 0.8 RATIO (0.9-2.4); AST(SGOT) 52 U/L (15-37); Alanine Aminotransfer ALT/SGPT 45 U/L (16-61); Albumin, Serum 3.3 g/dL (3.2-5.0); Alkaline Phosphatase 105 U/L (45-117); Anion Gap 10 (5-15); BUN 24 mg/dL (7-18); BUN/Creat Ratio 19.2 RATIO (10-20); Calcium,Total 9.6 mg/dL (8.5-10.1); Chloride 104 mmol/L (98-107); Creatinine, Serum 1.25 mg/dL (0.70-1.30); EST Glomerular Filtration Rate 65 mL/min (>60); Est Glom Filt Rate - Afr Amer 78 mL/min (>60); Globulin 4.4 g/dL (2.2-4.2); Glucose 282 mg/dL (74-106); Potassium 4.7 mmol/L (3.5-5.1); Protein, Total 7.7 g/dL (6.4-8.2); Sodium Level 140 mmol/L (136-145)
[2018-04-05 17:12] LABS: Vitamin D,25 Hydroxy 15.9 ng/mL (29.95-100.01)
--- OUTSIDE RECORDS SUMMARY | 2018-07-08 02:17 | XMS RPT_ITS ---
:1965 Author Organization OHIP Support Name Relationship Address Phone SUSHILA IQBAL Unavailable [address] + [place] [address] TALON SUSHILA Unavailable [address] + [place] [address] UE Unavailable Unavailable Unavailable TALON, SUSHILA Unavailable [address] + [place] [address] UE Unavailable Unavailable Unavailable TALON, SUSHILA Unavailable [address] + [place] [address] UE Unavailable Unavailable Unavailable TALON, SUSHILA Unavailable [address] + [place] [address] UE Unavailable Unavailable Unavailable TALON, SUSHILA Unavailable [address] + [place] [address] UE Unavailable Unavailable Unavailable TALON, SUSHILA Unavailable [address] [phone] [place] [address] UE Unavailable Unavailable Unavailable TALON, SUSHILA Unavailable [address] [phone] [place] [address] UE Unavailable Unavailable Unavailable TALON, SUSHILA Unavailable [address] [phone] [place] [address] UE Unavailable Unavailable Unavailable TALON, SUSHILA Unavailable [address] [phone] [place] [address] UE Unavailable Unavailable Unavailable Care Team Providers Name Role Phone Huseyin Corral Attending Unavailable Joana White Referring Unavailable [facility]IN[facility], [facility] Primary Care Unavailable Rene Mckee Attending Unavailable Rene Mckee Primary Care Unavailable Rene Mckee Attending Unavailable Rene Mckee Primary Care Unavailable Rene Mckee Attending Unavailable Rene Mckee E Primary Care Unavailable SchinRene avila Primary Care Unavailable Corral, Huseyin Attending Unavailable Jopperi, Steven Admitting Unavailable Primay Care Physicia, No Primary Care Unavailable Celio, Tariq Consulting Unavailable Celio, Tariq Attending Unavailable Jopperi, Steven Admitting Unavailable Jopperi, Steven Attending Unavailable Primay Care Physicia, No Primary Care Unavailable Jopperi, Steven Consulting Unavailable Jopperi, Steven Admitting Unavailable Primay Care Physicia, No Primary Care Unavailable Celio, Tariq Consulting Unavailable Celio, Tariq Attending Unavailable Primay Care Physicia, No Primary Care Unavailable Jopperi, Steven Admitting Unavailable Celio, Tariq Attending Unavailable ROBERTO LEYVA Admitting Unavailable ROBERTO LEYVA Attending Unavailable LITA NATH JR Referring Unavailable TAMMY ROCHA Referring Unavailable TAMMY ROCHA Referring Unavailable RADAMES MERCADO Attending Unavailable SCOTTY JERRY Referring Unavailable SHAKIRA VELAZQUEZ (FLIGHT ENGINEER MANAGER) Referring Unavailable SHAKIRA VELAZQUEZ (FLIGHT ENGINEER MANAGER) Referring Unavailable SARAHI VILLEDA Admitting Unavailable SARAHI VILLEDA Attending Unavailable SARAHI VILLEDA Admitting Unavailable SARAHI VILLEDA Attending Unavailable LITA NATH JR Admitting Unavailable LITA NATH JR Attending Unavailable BHARATH, HUSEYIN [place] Referring Unavailable CLARENCE JENSEN Consulting Unavailable PROVIDER, UNKNOWN Admitting Unavailable PROVIDER, UNKNOWN Attending Unavailable LITA NATH Admitting Unavailable LITA NATH Attending Unavailable CORRAL, HUSEYIN Referring Unavailable IMCA Primary Care Unavailable Calvin JENSEN Consulting Unavailable PROBLEMS PROBLEMS DATE TYPE CONDITION / CODE ATTENDING STATUS SOURCE 04/14/2018 Active Unknown / Justyn LEYVA UNK(Unknown) ROBERTO [facility] [place] Repository 04/14/2018 Active Hyperglycemia, PORTILLO WRIGHT Active [place] unspecified / LITA [facility] Other R73.9(ICD-10) [place] Repository 04/14/2018 Active Other shock / PORTILLO WRIGHT [facility] R57.8(ICD-10) [facility] Other [place] Repository 04/14/2018 Active Gastrointestinal PASSERO , Active [place] hemorrhage, [facility] Clinic Other unspecified / [place] K92.2(ICD-10) Repository 04/14/2018 Active Alcoholic cirrhosis PASSERO JR, Active [place] of liver without [facility] Other ascites / [place] K70.30(ICD-10) Repository 04/14/2018 Admitting Unknown / PASSERO, Active [facility] diagnosis UNK(Unknown) [facility] Health System Repository 05/05/2018 Unknown K74.60 - Unspecified Rene Mckee Active [place] cirrhosis of liver / [facility] K74.60(ICD-10) Hospital Repository 02/28/2018 Unknown E11.9 - Type 2 Rene Mckee Active [place] diabetes mellitus [facility] without complications [facility] / E11.9(ICD-10) Repository PROCEDURES PROCEDURES No Procedure Records FoundRESULTS RESULTS PROGRESS Observed: 2018 Status: COMPLETED Source: [place] 4:24 PM [facility] REPOSITORY HNO ID: [id number] Author: Amy Horton) Duale Service: Thoracic Surgery Author Type: Nurse Practitioner Type: Progress Notes Filed: 2018 4:31 PM Note Text: [facility] POSTOP PROGRESS NOTE DAY OF SURGERY: 05/01/2018 OPERATION: Right thoracoscopy, right posterolateral thoracotomy, complete decortication of the right pleural space, esophageal mobilization, primary repair of the esophagus, intercostal muscle flap based on intercostal vascular pedicle, flexible endoscopy, flexible bronchoscopy for mid esophageal perforation, extensive right pleural empyema, liver cirrhosis, 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 INTERVAL EVENTS / PERTINENT ROS: Patient had an uneventful night. Hemodynamically stable, afebrile, no chills, no diaphoresis. Pain controlled. Denies any SOB, lightheadedness, dizziness. No nausea/vomiting or bloating sensation while NPO. + flatus and no BM. Labs: WBC 9.52 H/H 9.2/28.8 BMP WNL CXR: no pneumothorax Plan: - ID COPAT for Vanco 1 gram every 24 and ertapenem 1 gram every 24 hours -continue anahi drain to bulb- DC to SNF with anahi drain -strict NPO/TPN(to be cycled 12 hours tonight) -barium swallow in 10 days as an outpatient Rhythm: SR 89 Intake/Output Summary (Last 24 hours) at 05/11/18 1627 Last data filed at 05/11/18 1441 Gross per 24 hour Intake 1921 ml Output 2405 ml Net -484 ml BP 156/74 Pulse 89 Temp 37.1 ?C (98.7 ?F) (Oral) Resp 16 Ht 177.8 cm (5' 10) Wt 103.8 kg (228 lb 13.4 oz) SpO2 96% BMI 32.83 kg/m? room air PHYSICAL EXAM: Constitutional: Obese and No acute distress HEENT: Fair dentition and No lesions Resp: Clear and Respiratory effort: normal Cardiovascular: Regular rate AND rhythm GI: Soft and Non-tender Integumentary: Warm and Dry Musculoskeletal: No deformities Neurological/Psychiatric: Oriented to time, place AND person , Alert and No gross focal neurologic deficits Additional systems reviewed: No additional systems reviewed Drains: -right arm PICC line with clean entry site and intact dressing -right anahi drain to bulb holding suction drained 40 cc of sero sang fluid yesterday Incisions: -Right posterolateral thoracotomy -with surgical glue, well approximated, no erythema, swelling, warmth, or drainage noted -right lateral chest wound packing removed and left JAZMIN no drainage or erythema noted HISTORY, ASSESSMENT AND PLAN: Problem Esophageal Perforation History: 52 year old male with COPD, DM2, liver cirrhosis secondary to ETOH abuse, esophageal varices, portal hypertension and ascites, presented to [facility] 04/14/18 with massive upper GI bleed from esophageal varices. Initially had a Sengstaken-Tony tube placed to tamponade the bleed, subsequently, underwent multiple endoscopies and was noted to have a contained perforation of the mid esophagus that at some point during became full thickness perforation likely went unrecognized because of the fact that perforation was covered by a clot every time he underwent endoscopy and also because he had NG decompression which prevented any extensive leakage into right pleural space, though he did have some soilage into R pleural space. Esophageal stent was placed but failed to contain the leak. Due to extensive comorbidity, undrained pleural space and ongoing perforation, he underwent urgent TIPS procedure 04/30/18, then was taken to OR 05/01/[address] Gr performed right posterolateral thoracotomy, complete right pleural decortication, primary repair of the esophagus and intercostal muscle flap based on intercostal vascular pedicle. Infectious disease consulted for help with antibiotics Assessment: Mid esophageal perf after hematemesis c/b empyema; Status post thoracotomy, repair of esophageal perf on 05/02/18 Plan: -Tubes: Right chest anahi to bulb- monitor amount and color of drainage -Monitor surgical drains for bleeding, chyle or anastomotic leak -ID: Appreciate ID recs DC ATB and started Ertapenem 1 gram every 24 hours and Vanco 1 gram every 24 hours with COPAT written -Double lumen PICC for TPN and ATB -Diet: Strict NPO to allow repair to heal; TPN in the interim (~4 weeks?). Diet to be advanced in outpatient -Afib prophylaxis x 30 days postop -GI stress ulcer prophylaxis x 30 days postop -Activity: ambulate/out of bed at least TID as able Essential Hypertension History: home med: amlodipine 10 mg daily, losartan 50 mg daily. Now NPO since repair of esophageal tear on 05/01/18 Assessment: BP's normotensive on clonidine patch 0.2, enalaprilat 1.25 mg IV q6H, metoprolol 10 mg IV q6H, lasix 20 mg IV daily, hydralazine 20 mg IV q6H. NPO. Plan: -Continue current regimen -monitor blood pressure Type II Diabetes Mellitus (Hcc) History: History of poorly controlled DM2, last Hgb A1c was 8.2 on 03/07/18. Admitted 04/05/18 for hematemesis and mid esophageal perf and has been NPO and on TPN Assessment: glucose ranged 127-133 while NPO and on TPN Plan: -Diet: NPO, TPN -Accucheck q6H with lispro sliding scale prn Alcoholic Cirrhosis (Hcc) History: History of presumed EtOH related cirrhosis with risk factors for BOONE with disease course c/b portal HTN (EV) who presented 04/14/18 to OSH with nausea, vomiting, melena, and hematemesis prompting tony tube placement at that time (unsure if gastric vs. Gastric and esophageal balloon inflated) found to have partial thickness esophageal tear and large EV. Transferred to [facility] 04/15/18. Hospital course c/b right empyema with fevers an purulent chest tube output on while on vancomycin/aztreonam/diflucan, respiratory failure requiring intubation now extubated (04/22) and stable from pulmonary standpoint, and on TPN. Underwent TIPS 04/30/18 with sinusoidal gradient form 18->4mmHg just prior to thoracotomy, R pleural decortication, repair of esophageal perforation on 05/01/18. Ultrasound 05/04/18 showed patent shunt Assessment: S/p TIPS placement 04/30/18 with sinusoidal gradient 18 pre and 4 post procedure Plan: -Has increased risk of post-TIPS encephalopathy given hx of prior encephalopathy; Monitor post-procedurally and TIPS can be adjusted if patient develops encephalopathy -If signs of hepatic encephalopathy manifest, start lactulose 20 gms QID and titrate to 3-4 bowel movements daily -CMP and INR daily INR today 1.3 Acute Post-Operative Pain History: Status post: VATS converted to thoracotomy, total pulm decortication, primary repair of mid esophageal tear on 05/01/18. Assessment: While NPO after repair of esophageal tear, reports adequate pain control with hydromorphone IV prn Plan: -Continue current regimen. -Continue to re-assess pain control to keep pain level at 4 or less Tobacco Abuse History: Patient is a current everyday smoker Assessment: Has not smoked since admission to hospital Plan: -Encourage smoking cessation and continue education as an outpatient Empyema Lung (Hcc) History: Mid esophageal perforation complicated by right empyema with fevers and purulent chest tube output. Infectious disease consulted for antibiotics. Underwent thoracotomy, decortication, primary repair of perf on 05/01/18 Assessment: S/p decortication and primary repair of esophageal perf on 05/01/18; afebrile while on antibiotics. Plan: -See plan under 'esophageal perf' -ID consulted Stage 2 Chronic Kidney Disease History: PHX CKD Assessment: Scr 0..84, BUN 43. Made 1.6L urine yesterday Plan: -Avoid hypotension, nephrotoxic agents, and renally dose medications. -Trend creatinine and monitor urine output Discharge Planning Issues History: and lives in [place], [place]. Admitted 05/08/18 for hematemesis, underwent TIPS procedure, then thoracotomy, pleural decortication and primary repair of esophageal tear on 05/01/18 Assessment: Anticipate discharge to SNF once clinically stable. Skilled needs postop: central line care, IV antibiotics, TPN(cycled at 12 hours) Plan: - Discuss needs with patient and collaborate with case management - Will continue to evaluate during hospital admission. DAILY STEP DOWN CHECKLIST FOR CATHETER RELATED INFECTION PREVENTION CVC, PICC, Dheeraj and/or Permacath present? Yes - PICC - needed for IV antibiotics and TPN Does the patient have a urinary catheter beyond POD 2? No VTE Risk Assessment: High risk VTE Mechanical and/or Pharmacologic Prophylaxis: IPC Device and Subcutaneous Heparin Labs and medications reviewed in [facility] SIGNATURE: Amy Sampson APRN.CNP PATIENT NAME: Lazaro Villafana DATE: 2018 TIME: 4:24 PM PAGER/CONTACT #: [phone] CONSULT PROG Observed: 2018 Status: COMPLETED Source: [place] 2:53 PM [facility] REPOSITORY O ID: [id number] Author: Katie Calderón Service: NST-Nutrition Support Team Author Type: Physician Type: Consult Progress Note Filed: 2018 3:29 PM Note Text: NUTRITION SUPPORT TEAM TOPIC: NUTRITION SUPPORT TEAM PROGRESS NOTE PATIENT NAME: Lazaro Villafana DATE OF : 1965 DATE: 2018 [facility] STAFF PHYSICIAN NOTE OF PERSONAL INVOLVEMENT IN CARE I have reviewed the progress note obtained and documented by the Nutrition Clinician. I have explored in detail with the patient the HPI and ROS, and they are summarized below. I have discussed the case and management of the patient's care with the Nutrition Clinician. I have reviewed available labs, and my exam and A/P are as follows: ASSESSMENT: 1. On TPN 2. No Malnutrition 3. Esophagus tear 4. hypoalbuminemia PLAN: Agree with recommendations as outline by clinician below. Labs were reviewed and TPN orders written: Electrolyte adjustment, cycle to 12 hours Our Service will follow. Interval History: 53 years old male , no PN for esophagus perforation, no N,V or abdominal pain, no CP or SOB , no cough or lower EX edema Physical Exam: Temp: T. Max: Temp (24hrs), Av.1 ?C (98.7 ?F), Min:36.8 ?C (98.3 ?F), Max:37.3 ?C (99.2 ?F) Venous Access: Line: PICC, Site: clean dry non-tender Edema: +2 Edema Katie Calderón MD Pager: [phone] Nutrition Clinician Assessment Nutritional Status: No malnutrition identified per RD on 04/28/18 Interval History: Transferred from ICU on 05/07/18. PICC line placed on 05/10/18; PN infusing through this morning. Pt tolerated 18 hour PN cycling well; BG and electrolytes WDL. Plan to d/c to SNF on Wednesday per thoracic surgery. Assessment: 52 year old male with a history of type II DM, poorly controlled HTN, CKD, COPD, tobacco smoker 2-3 PPD, alcohol use disorder with recent diagnosis of cirrhosis was transferred from OSH with an esophageal perforation seen on EGD. S/p esophageal stent for 4 weeks then removal with strict NPO (TPN for the interim; started 04/17/18). ? Afebrile/WBC: 9.52/BC: no growth x 5 days Line: L 3L CVC (placed on 04/27/2018/removed on 05/10/18) R 2L PICC placed on 05/10/18- clean, dry, non-tender Placement: tip located in the SVC/CAJ Denies SOB; not on NC today No edema, + small volume ascites Slightly hyperglycemia (B, 126, 115)- 100 units insulin in bag Electrolytes WDL ?Diureses: lasix 20 mg daily Chloride trending down (106) LFTs slightly elevated UO: 1675 ml; Chest Tube: 40 ml Recommendations: Cycle central PN 2.0 L x 12 hours w/ 1 hour taper up AND 1 hour taper down Decrease Mg and Phos, increase Ca and maintain K Note: only acetate, no chloride, in PN bag Vitals: Temperature Max in 24 hours: Temp (24hrs), Av.1 ?C (98.7 ?F), Min:36.8 ?C (98.3 ?F), Max:37.3 ?C (99.2 ?F) Current Vital Signs: BP 153/72 Pulse 91 Temp 37.1 ?C (98.7 ?F) (Oral) Resp 16 Ht 5' 10 (1.778 m) Wt 103.8 kg (228 lb 13.4 oz) SpO2 96% BMI 32.83 kg/m? Current Weight: Weight: 103.8 kg (228 lb 13.4 oz) Intake AND Output: Intake/Output Summary (Last 24 hours) at 05/11/18 1453 Last data filed at 05/11/18 1441 Gross per 24 hour Intake 1921 ml Output 2405 ml Net -484 ml Laboratory Data: Recent Labs 05/11/18 0455 05/10/18 0339 05/09/18 0340 NA 141 141 143 K 4.0 3.8 3.7 CHLOR 106* 107* 108* CO2 24 25 26 CREAT 0.84 0.83 0.81 BUN 43* 45* 50* GLUC 119* 149* 135* P 3.8 3.2 3.2 TPROT 6.0* 6.0* 6.3 ALB 2.2* 2.3* 2.5* MG 2.2 2.0 2.1 CA 8.0* 8.1* 8.7 Accuchecks: Glucose, Point of Care (mg/dL) Date Value 2018 127 (A) 2018 133 (A) 05/10/2018 126 (A) 05/10/2018 115 (A) Monica Rush RD, LD, [facility] Pager: [phone] Phone: [phone] THERAPY NT Observed: 2018 Status: COMPLETED Source: [place] 2:[address] [facility] REPOSITORY HNO ID: [id number] Author: Oxana Lee (Ot/Whitney Wilson Service: Occupational Therapy Author Type: Occupational Therapist Type: Therapy (PT/OT/Speech/Resp) Filed: 2018 2:37 PM Note Text: Occupational Therapy Treatment SERVICE DATE: 2018 SERVICE TIME: 1348 to 1426 ROOM: [place] [address] Recommended Discharge Disposition: Subacute/SNF Justification For Post Acute Needs: Anticipate that patient will require daily (5x/wk) skilled therapy in a post-acute facility setting at the time of acute hospital discharge;May not tolerate higher intensity programing;Willing to participate;Motivated Anticipated Discharge Needs: Undetermined OT Recommendations to Nursing: OOB for meals;Transfer to Chair;ADL?s in chair;With assist of 2 people OT 6 Clicks Score: 17 Precautions/Activity Restrictions: Lines/Tubes/Drains;Fall Risk Precaution/Activity Restriction Comments: R chest tube ASSESSMENT: Patient with progression in ADLs and functional transferse this date. Able to sit EOB and complete bed <> BSC transfer with Annette using WW. Pt.'s anxiety continues to limit participation and increase SOB during functional tasks. Continue to rec SNF. Patient Disposition at Start of Session: Supine in Bed;Call Raphael in Reach;Bed Alarm Patient Disposition at End of Session: Supine in Bed;Call Raphael in Reach;Bed Alarm Tolerated Full Session Fatigue;Pain Occupational Therapy Problem List: Cognitive Deficit;Edema;Pain;Safety Deficits;Impaired Self Care;Decreased Activity Tolerance;Decreased Strength;Functional Mobility Impairment;Balance Impaired;Impaired Fine Motor Skills Patient /Caregiver Goals: Care For Self Goals for Plan of Care: Able to perform HEP with: Modified Independent Feeding with: Modified Independent Grooming with: Modified Independent Upper Body Bathing with: Stand By Assistance Upper Body Dressing with: Stand By Assistance Lower Body Bathing with: Minimal Assistance Lower Body Dressing with: Minimal Assistance Toilet Hygiene with: Minimal Assistance Chair Transfer with: Minimal Assistance Toilet Transfer with: Minimal Assistance Tolerate (minutes of functional activity): 45 Functional Activity with: Stand By Assistance Demonstrate Positive Coping Strategies with: Modified Independent Demonstrate Competence With Education with: Modified Independent Progress Toward Goals: Progressing as expected Rehab Potential: Good PLAN: Treatment Frequency (times per week): 2 Current admission Treatment Interventions: Education;Self Care / Home Management;Energy Conservation Training;Strengthening;Functional Mobility Training;Balance Training;Neuromuscular Re-education;Pain Management;Edema Management;Cognitive Training Plan of Care developed with: Patient TREATMENT INTERVENTIONS: Therapy Diagnosis: Reduced mobility-other;Decreased activities of daily living (ADL);Muscle Weakness (generalized) Interventions Provided: Therapeutic Activity (79565);Self Assisted Management (75717);Cognitive Training (93205 or G0515) Therapeutic Activity (11154) Treatment Minutes: 15 1 unit Skilled Intervention(s): Instructed patient in log roll technique Instructed patient in supine to and from sit pushing with upper extremities to sit up Instruction in sit to and from stand technique with proper hand placement and body positioning at edge of bed/chair Instructed on bed <> BSC transfer using WW, pt. Required VCs for hand placement and body position. VCs for safe WW use and reaching back for bed/BSC prior to sitting down. Pt. Sitting prior to cues from OT Instructed patient on safe WW use, upright posture and upward gaze during functional mobility. Increased time required for line management and room setup in order to increase patient safety. Self Assisted Management (89805) Treatment Minutes: 15 1 unit Skilled Intervention(s): Cues for sequencing in hygiene tasks required maxA to clean pt. Up while standing at BSC, pt. Required VCs for upright posture. Unable to complete toilet hygiene while sitting on BSC Provided instruction, cuing and facilitation for lower body dressing while sitting EOB, provided Annette to thread BLE socks and provided VCs to lift socks over heel/ankle Educated patient on performing ADL tasks as independently as possible prior to requesting for assistance in order to return to habits, routines and roles from BI DATA ARCHITECT. Cognitive Training (G0515) Treatment Minutes (2018 Only): 8 $ Cognitive Training (G0515) Billed Units (2018 Only): 1 unit Skilled Intervention(s): Assisted with identification of coping strategies Provided psychosocial education on coping strategies including anxiety reduction techniques to increase independence during functional tasks. Therapeutic use of self and reflective listening to reduce pt anxiety Time spent educating pt. On PLB technique to decrease anxiety and SOB, pt. Visibly with increased SOB due to anxiety during mobility Total Timed Code Treatment Minutes: 38 Total Treatment Time (minutes): 38 FUNCTIONAL G CODE: OT 6 Clicks Score: 17 (05/11/181347) Self Care Current Status (G8987): CK (05/11/18 134) Self Care Goal Status (G8988): CJ (05/11/181347) Based on clinical assessment and the score on the 6 Clicks Functional Assessment Tool, the G code and corresponding severity modifiers are documented above. SUBJECTIVE: Current Hospital Course: Chart reviewed and no significant medical updates relevant to therapy were noted Reason for Occupational Therapy Consult: Re Eval post surgery Relevant Past Medical History: CKD. DM. COPD. ETOH. Cirrhosis. HTN. Patient Report: I can't do this. I am just breathing so heavy. 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 Entry To Home: Stairs Number Of Stairs Into Home: 3 Number Of Stairs To Bed/Bath: 0 Equipment Owned: Cane;Wheeled Walker Prior Functional Level: Within Functional Limits OBJECTIVE: Cognition/Communication Deficits Orientation Deficits: Not oriented to Time Responsiveness: Alert;Awake Follows Commands: 2-step Commands;1-step Commands;Cueing Needed Cueing to Follow Commands: Minimum Attention Deficits: Distractible Memory Deficits: Short Term Executive Function Deficits: Insight to Deficits;Safety Awareness;Judgement Judgement Deficit: Moderate impairment Insight to Deficits: Moderate impairment Safety Awareness Deficit: Moderate impairment Cognitive Clinical Tests and Screens: Mini Cog Clock Draw Test: 0-Abnormal Word Recall: 2-recalled words Mini Cog Score: 2 CURRENT FUNCTIONAL STATUS: Current Activities of Daily Living Assist Level Feeding Set Up Grooming Set Up Bathing Upper Body Minimal Assistance Bathing Lower Body Moderate Assistance Dressing Upper Body Minimal Assistance Dressing Lower Body Moderate Assistance Toileting Maximal Assistance Instrumental Activities of Daily Living Assist Level Meal/Beverage Prep Light Cleaning Laundry Medication Management with Strategies Functional Mobility Assist Level Rolling Minimal Assistance Supine to Sit Minimal Assistance Sit to Supine Minimal Assistance (for BLE) Scooting Minimal Assistance Sit to Stand Moderate Assistance (progressed to Annette) Stand to Sit Minimal Assistance Bed to Chair Minimal Assistance Toilet/Commode Minimal Assistance Functional Mobility Activity Tolerance: Sitting Activity Sitting Activity: ADLs/HEP Sitting Activity Tolerance (in minutes): 15 Please see discipline specific clinical documentation flowsheet for complete details for this therapy evaluation/treatment. SIGNATURE: Oxana Wilson OT/ PATIENT NAME: Lazaro Villafana DATE: 2018 TIME: 2:30 PM CASE MANAGEM Observed: 2018 Status: COMPLETED Source: [place] 2:[address] [facility] REPOSITORY HNO ID: [id number] Author: Makenna (Rn) BLAYNE Aparicio Service: Care Management Author Type: Registered Nurse Type: Care Mgt Progress Note Filed: 2018 3:56 PM Note Text: CARE MANAGEMENT PROGRESS NOTE SERVICE DATE: 2018 SERVICE TIME: 2:12 PM LOS: 27 days Needs Prior to Discharge: Precertification Procedure Needed: PICC/Dheeraj insertion EMR reviewed. Case discussed with PARAPROFESSIONAL AIDE. PT recs SNF. Has a CoPAT. Has PICC. Accepted by [facility] . Precert started. Discharge Wednesday. Transportation BLS ambulance via [employer] tentatively set for Saturday 05/13 at 11am. CM following. 2:45 PM Patient needs to meet copay for transportation to schedule. Patient and Sushila notified. CM following. 3:30 PM Patient unable to make copay for transportation via [employer]. Additional referrals sent to [facility] , [facility] , [facility] and [facility] [phone]. 3:39 PM Denied by [facility]. Called placeed to [facility] . [place] to assist with transportation arrangements. CM following. 3:56 PM Additional referrals sent to [facility] and [facility] . SIGNATURE: Makenna Aparicio RN PATIENT NAME: Lazaro Villafana DATE: 2018 TIME: 2:10 PM PAGER/CONTACT #: [phone] XR CHEST 1V FRONTAL Observed: 2018 Status: F Source: [facility] 1:[address] [facility] [facility] REPOSITORY * * *Final Report* * * DATE OF EXAM: 2018 1:24PM JIX [id number] - XR CHEST 1V FRONTAL PORT / PROCEDURE REASON: Post-operative / post-procedure assessment, asymptomatic * * * * Physician Interpretation * * * * EXAMINATION: CHEST RADIOGRAPH (PORTABLE SINGLE VIEW AP) Exam Date/Time: 2018 1:24 PM Clinical History: Post-operative / post-procedure assessment, asymptomatic, MQ: XCPMC_5 Comparison: 0541, same day RESULT: See impression. IMPRESSION: Lines, tubes, and devices: The tip of the right PICC overlies the lower third of the SVC. A right thoracostomy tube remains in place.. Lungs and pleura: Increasing peripheral opacity in the right hemithorax with blunting of the right costophrenic angle and the right lung apex, consistent with a pleural effusion which may be loculated. A portion of the right pleural effusion courses in the fissures (pseudotumor). There is passive atelectasis of the right lung. No pneumothorax is identified. The left lung remains clear of focal process. Cardiomediastinal silhouette: Stable cardiomediastinal silhouette. No acute process identified. The cardiac silhouette appears enlarged. A mural stent remains positioned over the lower third of the esophagus extending into the proximal stomach. Steel Turner: PSCB Transcribe Date/Time: 2018 3:20P Dictated by : WASHINGTON MONTANEZ MD This examination was interpreted and the report reviewed and electronically signed by: WASHINGTON MONTANEZ MD on 2018 3:23PM EST [id number] NURSING PROG Observed: 2018 Status: COMPLETED Source: [place] 10:32 AM [facility] REPOSITORY HNO ID: [id number] Author: Licha Lee (Rn) BLAYNE Callejas Service: NST-Nutrition Support Team Author Type: Registered Nurse Type: Nursing Progress Note Filed: 2018 10:33 AM Note Text: Home Parenteral Nutrition Nursing Evaluation Hx: 52 yr old male from [facility] s/p 1-13-19 Right thoracoscopy, right posterolateral thoracotomy, complete decortication of the right pleural space, esophageal mobilization, primary repair of the esophagus, intercostal muscle flap based on intercostal vascular pedicle, flexible endoscopy, flexible bronchoscopy for mid esophageal perforation, extensive right pleural empyema, liver cirrhosis, 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 Plan to d/c to a SNF. Licha Callejas RN pager [phone] XR CHEST 1V FRONTAL Observed: 2018 Status: F Source: [facility] 5:41 AM [facility] REPOSITORY * * *Final Report* * * DATE OF EXAM: 2018 5:41AM JIX [id number] - XR CHEST 1V FRONTAL PORT / PROCEDURE REASON: Acute respiratory illness * * * * Physician Interpretation * * * * EXAMINATION: CHEST RADIOGRAPH (PORTABLE SINGLE VIEW AP) Exam Date/Time: 2018 5:41 AM Clinical History: Acute respiratory illness, MQ: XCPMC_5 Comparison: 1 day prior RESULT: See impression. IMPRESSION: Lines, tubes, and devices: Interval removal of the left IJ venous catheter. Interval placement of a right PICC, the tip of which overlies the lower third of the SVC. Right thoracostomy tube remains in place. Lungs and pleura: Stable peripheral opacity in the right mid to lower hemithorax with blunting of the right costophrenic angle consistent with a pleural effusion which may be loculated. A portion of the right pleural effusion courses in the fissures (pseudotumor). There is a right mid to lower lung airspace opacity most commonly secondary to nonspecific atelectasis or pneumonia. The left lung appears clear focal process. Cardiomediastinal silhouette: Stable cardiomediastinal silhouette. No acute process identified. The cardiac silhouette appears enlarged. Steel Turner: PSCB Transcribe Date/Time: 2018 9:17A Dictated by : WASHINGTON MONTANEZ MD This examination was interpreted and the report reviewed and electronically signed by: WASHINGTON MONTANEZ MD on 2018 9:19AM EST [id number] PROTIME Collected: 2018 Status: F Source: [place] 4:55 AM [facility] REPOSITORY TYPE CODE TESTS RESULT OUT OF RANGE REFERENCE UNITS LAB PSEC 9.7-13.0 sec High PT Sec 13.6 LAB INR 0.9-1.3 PT INR 1.3 Result Comment: Vitamin K Antagonist (VKA) Therapeutic Range: INR 2 to 3 (Target INR of 2.5) Note: For patients treated with VKA drugs, such as warfarin, the [place] [employer] 2012 Guideline recommends a therapeutic INR range of 2 to 3 (target INR of 2.5). This recommendation includes high-risk patients with antiphospholipid syndrome with previous arterial or venous thromboembolism, current-generation mechanical or bioprosthetic aortic heart valve replacement. Note: Patients with mechanical aortic valve replacement and additional risk factors for thromboembolic events (atrial fibrillation, previous thromboembolism, LV dysfunction, hypercoagulable conditions) or an older generation mechanical AVR (i.e., ball in-Cage) or any mechanical MVR should have a INR therapeutic range of 2.5 to 3.5 (target INR of 3). Serjio GH, et al. Chest 2012, 141:7S-47S Rashida VAZQUEZ, et al. JAC 2017, 70: 252-289 Performed By: #### PT, CBC, CMP, MG1, PHOS #### [facility] [address] [place], [place] [address] CBC Collected: 2018 Status: F Source: [place] 4:55 AM [facility] REPOSITORY TYPE CODE TESTS RESULT OUT OF REFERENCE UNITS RANGE LAB WBC 3.70-11.00 k/uL WBC 9.52 LAB RBC 4.20-6.00 m/uL Low RBC 3.09 LAB HGB 13.0-17.0 g/dL Low Hemoglobin 9.2 LAB HCT 39.0-51.0 % Low Hematocrit 28.8 LAB MCV 80.0-100.0 fL MCV 93.2 LAB MCH 26.0-34.0 pG MCH 29.8 LAB MCHC 30.5-36.0 g/dL MCHC 31.9 LAB RDWCV 11.5-15.0 % RDW-CV High 17.3 LAB PLTCT 150-400 k/uL Low Platelet Count 97 Result Comment: No clot detected. LAB MPV 9.0-12.7 fL MPV 11.3 LAB ABSNUC <0.01 k/uL Absolute nRBC <0.01 Performed By: #### PT, CBC, CMP, MG1, PHOS #### [facility] [address] [place], [place] [address] COMP METABOLIC PANEL Collected: 2018 Status: F Source: [place] 4:55 AM [facility] REPOSITORY TYPE CODE TESTS RESULT OUT OF REFERENCE UNITS RANGE LAB TP 6.3-8.0 g/dL Low Protein, Total 6.0 LAB ALB 3.9-4.9 g/dL Low Albumin 2.2 LAB CA 8.5-10.2 mg/dL Low Calcium, Total 8.0 LAB TBIL 0.2-1.3 mg/dL Bilirubin, Total 1.0 LAB ALKP 38-113 U/L Alkaline Phosphatase 81 LAB AST 14-40 U/L AST High 48 LAB GLU 74-99 mg/dL Glucose High 119 Result Comment: The [place] [employer] Association (ADA) provides guidance for cutoff values for fasting glucose and random glucose. The ADA defines fasting as no caloric intake for at least 8 hours. Fas ting plasma glucose results between 100 to 125 mg/dL indicate increased risk for diabetes (prediabetes). Fasting plasma glucose results greater than or equal to 126 mg/dL meet the criteria for diagnosis of diabetes. In the absence of unequivocal hyperglycemia, results should be confirmed by repeat testing. In a patient with classic symptoms of hyperglycemia or hyperglycemic crisis, random plasma glucose results greater than or equal to 200 mg/dL meet the criteria for diagnosis of diabetes. Reference: Standards of Medical Care in Diabetes 2016, [place] [employer] Association. Diabetes Care. 2016.39(Suppl 1). LAB BUN 9-24 mg/dL BUN High 43 LAB CRET 0.73-1.22 mg/dL Creatinine 0.84 LAB NA 136-144 mmol/L Sodium 141 LAB K 3.7-5.1 mmol/L Potassium 4.0 LAB CL 97-105 mmol/L Chloride High 106 LAB CO2 22-30 mmol/L CO2 24 LAB AGAP 9-18 mmol/L Anion Gap 11 LAB ALT 10-54 U/L ALT 38 LAB GFRAA eGFR- Amer. >60 LAB GFRNAA . eGFR-All Other Races >60 Result Comment: eGFR (Estimated GFR) Units of measure: mL/min/1.73 meters squared eGFR is derived from the reexpressed MDRD Study equation using the following parameters: serum creatinine, age, gender and race. The creatinine assay has been calibrated to be traceable to IDMS. An eGFR <60 mL/min/1.73m2 for >3 months is consistent with chronic kidney disease. Refer to KDOQI guidelines for clinical interpretation. In patients with unstable renal function, e.g. those with acute kidney injury, the eGFR may not accurately reflect actual GFR. Performed By: #### PT, CBC, CMP, MG1, PHOS #### [facility] [address] [place], [place] [address] MAGNESIUM Collected: 2018 Status: F Source: [place] 4:[address] [facility] REPOSITORY TYPE CODE TESTS RESULT OUT OF REFERENCE UNITS RANGE LAB MG 1.7-2.3 mg/dL Magnesium 2.2 Performed By: #### PT, CBC, CMP, MG1, PHOS #### [facility] [address] [place], [place] [address] PHOSPHORUS Collected: 2018 Status: F Source: [place] 4:[address] [facility] REPOSITORY TYPE CODE TESTS RESULT OUT OF REFERENCE UNITS RANGE LAB PHOS 2.7-4.8 mg/dL Phosphorus 3.8 Performed By: #### PT, CBC, CMP, MG1, PHOS #### [facility] [address] [place], [place] [address] TYPE AND SCREEN Collected: 2018 Status: F Source: [place] 4:55 AM [facility] REPOSITORY TYPE CODE TESTS RESULT OUT OF REFERENCE UNITS RANGE LAB %ABR B ABO/RH(D) POSITIVE LAB % Antibody POS Screen Performed By: #### TSCR #### [facility] [address] [place], [place] [address] NURSING PROG Observed: 05/10/2018 Status: COMPLETED Source: [place] 9:18 PM [facility] REPOSITORY HNO ID: [id number] Author: Jayce GhoshRn) Carlos BAHENA RN Service: Nursing Author Type: Registered Nurse Type: Nursing Progress Note Filed: 05/10/2018 9:20 PM Note Text: Nursing Progress Note Patient Name: Lazaro Villafana Patient Location: [place] [id number] Triple lumen catheter removed from left IJ tip was intact. Pt tolerated well. Held pressure then drsg applied. This note was completed by: Jayce Gonzalez II, RN PT ED Observed: 05/10/2018 Status: COMPLETED Source: [place] 5:53 PM [facility] REPOSITORY HNO ID: [id number] Author: Mayra GhoshRn) BLAYNE Dave Service: PICC Team Author Type: Registered Nurse Type: Patient Education Filed: 05/10/2018 5:55 PM Note Text: PATIENT EDUCATION TOPIC: PROCEDURE / SURGERY: PICC PATIENT NAME: Lazaro Villafana PATIENT LOCATION: [place] [id number] READINESS TO LEARN COGNITIVE ABILITY: Alert and oriented MOTIVATION TO LEARN: Interested FAMILY SUPPORT: Unable to assess - Family not present INSTRUCTION PROVIDED TO: Patient PATIENT LEARNS BEST BY: Individual Instruction FACTORS AFFECTING LEARNING: None PHYSICAL LIMITATIONS AFFECTING LEARNING: None LEARNING RESPONSE DIAGNOSIS: ADULT: Malnutrition PATIENT/FAMILY RESPONSE: Verbalizes understanding of: MEDICAL REGIMEN-Importance of following prescribed medical regimen METHOD OF INSTRUCTION: Individual instruction FOLLOW-UP PLAN: Complete - No need for follow-up INSTRUCTIONAL AIDS USED: NA SUPPLEMENTAL MATERIAL PROVIDED TO PATIENT: Title of booklet / pamphlet: PICC REFERRAL (RECOMMENDATION): Nutrition (Inpatient) Electronically Signed By: Mayra Dave RN PROCEDURE Observed: 05/10/2018 Status: COMPLETED Source: [place] 5:[address] [facility] ID: [id number] Author: Mayra GhoshRn) BLAYNE Dave Service: PICC Team Author Type: Registered Nurse Type: Procedures Filed: 05/10/2018 5:52 PM Note Text: PICC NURSE INSERTION NOTE DATE OF PROCEDURE: May 10, 2018 TIME OF PROCEDURE: 1739 ORDERING PHYSICIAN: Amy Sampson CNP INFORMED CONSENT: Obtained per hospital policy. INDICATION FOR LINE PLACEMENT: IV therapy over six days PH/Osmolality CONDITION OF LINE PLACEMENT: Sterile PRIMARY PROCEDURALIST: Nathaniel Moore RN COAL HAULER OPERATOR: Mayra Dave RN PRE-PROCEDURE REVIEW ALLERGIES Allergen Reactions - Ciprofloxacin Unknown - Penicillin Unknown Tolerating cefepime Known History of Venous Thrombosis: Yes, Right Basilic and Right Cephalic from AC to wrist. Known History of Permanent Pacemaker or Automated Implanted Cardiac Device: No Previous Breast Surgery of Lymph Node Dissection: No History of Renal Disease with Arterio-Venous Fistula in Place or Planned: No Ultrasound Assessment Complete: Yes PROCEDURE NARRATIVE SAFE PRACTICE Hand Hygiene per Hospital Policy: Yes Skin Preparation Unit Dose Applicator Used: Chloraprep (CHG + alcohol), allowed to dry. Procedure Surface Cleansed with Antimicrobial Wipes: Yes Barriers Used by Proceduralist and all Assisting Personnel: Yes UNIVERSAL PROTOCOL / SAFETY CHECKLIST Procedure to be performed: PICC Sign in Communication: Completed Time Out: Team Confirms the Correct Patient, Correct Procedure, Correct Site and Site Marking, Correct Position (if applicable), Prep and Dry Time (if applicable). Time: 1739 Affirmation of Time Out: YES Sign Out Discussion: Completed Mayra Dave RN CATHETER PLACEMENT Brand: Powered by Peak Lot: [id number] Number of Lumens: 2 Type of PICC: Power Injectable PICC Lumen Size: 5 Iranian PLACEMENT TECHNIQUE Lidocaine: Yes. Strength: 1% and Buffered Volume 2 Modified Seldinger Technique Used to Place Line via the Right Basilic Ultrasound Guidance: Yes Number of Attempts at Insertion: 1 Ensured control of guidewire during all aspects of the procedure: Yes Accounted for entire guidewire upon removal: Yes Internal Length: 43 cm External Length: 0 cm Trim Length: 43 cm Mid-Arm Circumference Above Insertion Site: 34 centimeters Post Insertion Pain Level Related to Procedure: 0 Action Taken to Address Pain: None needed Verified Placement: Blood return and Tip location system or device indicates the tip is located in the SVC/CAJ. Line was Flushed with 20 cc normal saline Line Secured with: Securement device Sterile Dressing Applied and Dated: Yes Sterile Caps on all Ports Prior to Leaving Procedure Area: Yes SPECIMENS: None COMPLICATIONS: None Patient Education Materials: Given to patient The [facility] Central Line Insertion checklist, attached to the Central Line-Associated Bloodstream Infection Prevention Policy, was utilized during this procedure. QUESTIONS or PROBLEMS: Page [phone] SIGNATURE: Mayra Dave RN PATIENT NAME: Lazaro Villafana DATE: May 10, 2018 TIME: 5:49 PM PAGER/CONTACT PHONE: PLAN OF CARE Observed: 05/10/2018 Status: COMPLETED Source: [place] 5:11 PM [facility] REPOSITORY HNO ID: [id number] Author: Radha Camp (Tape Maker) Service: (none) Author Type: (none) Type: Plan of Care Filed: 05/10/2018 5:12 PM Note Text: METAL LATHER BEDSIDE DELIVERY SURVEY 1. Patient to use [facility] Bedside Delivery - YES 2. If fax, patient would like us to fax prescriptions to Pharmacy of choice a. Pharmacy: b. Location: c. Phone: 3. Insurance card on file - YES 4. Credit card for payment - NO No prescriptions yet. Please page upon discharge. CONSULT PROG Observed: 05/10/2018 Status: COMPLETED Source: [place] 4:16 PM [facility] REPOSITORY HNO ID: [id number] Author: Leena Li Service: Infectious Disease Author Type: Physician Type: Consult Progress Note Filed: 05/10/2018 4:36 PM Note Text: INFECTIOUS DISEASES PROGRESS NOTE Patient Name: Lazaro Villafana Account #: Data Unavailable Admission Date: 04/14/2018 Date of Evaluation: 05/10/2018 Time of Evaluation: 4:16 PM INTERVAL HPI: Patient is in J52, doing well, afebrile On TPN MEDICATIONS: Current hospital medications: NaCl 0.9% 10 mL 10 mL INTRAVENOUS q 12 H NaCl 0.9% 20 mL 20 mL INTRAVENOUS PRN Parenteral Nutrition - Adult INTRAVENOUS ONCE TPN (2200 START) Parenteral Nutrition - Adult INTRAVENOUS ONCE TPN (2200 START) vancomycin 1.25 g in D5W 250 mL (VANCOCIN) 1.25 g INTRAVENOUS q 12 HR insulin lispro injection (rapid acting) (HumaLOG) SUBCUTANEOUS q 6 H furosemide 20 mg injection (LASIX) 20 mg INTRAVENOUS DAILY budesonide 0.5 mg/2 mL 0.5 mg (PULMICORT) 0.5 mg INHALATION BID ipratropium-albuterol 3 mL nebulizer solution (DUONEB) 3 mL INHALATION QID OLANZapine orally disintegrating 10 mg tab(s) (ZyPREXA ZYDIS) 10 mg ORAL AT BEDTIME HYDROmorphone 0.4 mg injection (DILAUDID) 0.4 mg INTRAVENOUS q 4 H PRN metoprolol 10 mg injection (LOPRESSOR) 10 mg INTRAVENOUS q 6 HR hydrALAZINE 20 mg injection (APRESOLINE) 20 mg INTRAVENOUS q 6 H cloNIDine TTS 0.2 mg/24 hr 1 Patch (CATAPRES-TTS) 1 Patch TRANSDERMAL q FRI cloNIDine - REMOVE PATCH OTHER q FRI cloNIDine - VERIFY PATCH OTHER q 8 H fat emulsion infusion 20% (INTRALIPID) 250 mL INTRAVENOUS MO-WE-FR (10PM) enalaprilat 1.25 mg injection (VASOTEC IV) 1.25 mg INTRAVENOUS q 6 H Chlorhexidine Gluconate 0.12 % 15 mL (PERIDEX) 15 mL ORAL q 6 H heparin 5,000 Units injection 5,000 Units SUBCUTANEOUS q 12 H dextrose 50 % 12.5 g injection 12.5 g INTRAVENOUS PRN sodium chloride 0.65 % 2 [place] (AYR, OCEAN) 2 [place] EACH NOSTRIL 5X/DAY nasal ointment ([facility]) TOPICAL BID lidocaine 5 % 1 Patch (LIDODERM) 1 Patch TRANSDERMAL DAILY lidocaine patch - REMOVE OTHER AT BEDTIME lidocaine - VERIFY PATCH OTHER q 8 H aztreonam 2 g in D5W 100 mL MB+ (AZACTAM) 2 g INTRAVENOUS q 6 HR fluconazole 400 mg in NaCl (iso-osmotic) 200 mL (DIFLUCAN) 400 mg INTRAVENOUS DAILY vancomycin dosing and monitoring per pharmacy OTHER As Directed dextrose 40 % 15 g 15 g ORAL PRN glucagon 1 mg injection (GLUCAGEN) 1 mg INTRAMUSCULAR PRN NaCl 0.9% 3-5 mL 3-5 mL INTRAVENOUS q 12 H metroNIDAZOLE 500 mg PREMIX piggyback (FLAGYL) 500 mg INTRAVENOUS q 8 H pantoprazole 40 mg injection (PROTONIX) 40 mg INTRAVENOUS BID AC (0600/1599) PHYSICAL EXAM: BP 120/61 Pulse 88 Temp 36.9 ?C (98.5 ?F) (Oral) Resp 18 Ht 177.8 cm (5' 10) Wt 100.7 kg (222 lb 0.1 oz) SpO2 95% BMI 31.85 kg/m? NAD HEENT: anicteric Lungs - cta, chest tube removed CV rrr s1s2 Abd- obese, ntnd LE + 4 edema LABs: 11>30.4<121 Cr: 0.83 Alb: 2.3 HEPATIC: Recent Labs 05/10/18 0339 05/09/18 0340 05/08/18 0500 05/07/18 1203 05/07/18 0015 05/06/18 0012 05/05/18 0004 05/04/18 0005 ALKPHOS 78 84 86 85 86 82 70 85 ALT 46 59* 76* 84* 82* 72* 62* 83* AST 52* 68* 90* 102* 122* 99* 89* 160* TBILI 1.1 1.7* 1.9* 1.3 1.1 0.8 0.5 0.5 Micro and radiology personally reviewed 04/14/18: Quantiferon gold testing negative for TB 04/14/18: Blood cultures 04/19 no growth 04/14/18: MSSA nasal swab positive 04/17/18: MSSA nasal swab positive 04/17/18: Blood cultures 2/2 no growth 04/20/18: Blood cultures 2/2 no growth 04/20/18: Tracheal aspirate cultures no organisms on gram stain and no growth on culture 04/22/18: Fungitell negative 04/23/18: Sputum cultures normal abby 04/24/18: Staphylococcal nasal swab negative 04/27/18: Blood cultures 2/2 no growth 04/30/18: HCV Ab negative 04/30/18: HIV Ag/Ab negative 05/01/18: Staphylococcal nasal swab negative 05/01/18: right pleural tissue gram stain negative, cultures all no growth ? EGD 04/27/18: Impression: ? - Mucosal tear in the middle third of the esophagus ? healing well. ? - Portal hypertensive gastropathy. ? - Normal examined duodenum. ? - Feeding tube placement was successfully performed. ? Please confirm placement with KUB. ? - No specimens collected. ? Esophagram 04/27/18: PERSISTENT RIGHT MIDESOPHAGEAL PERFORATION DESCRIBED, CORRELATING WITH PRIOR. ? CT Chest 04/28/18: IMPRESSION: 1. ?Small to medium-sized right sided hydropneumothorax is stable in size since the prior chest CT dated 04/24/2018 with right thoracostomy tube in stable position. ?Adjacent dependent airspace opacity primarily in the right lower lobe has mildly improved in the interval and most likely represents either atelectasis or pneumonia/aspiration. 2. ?Previously seen bilateral airspace opacities, some of which were ground-glass or centrilobular in distribution have overall improved although have not resolved and may be due to either edema and/or infectious/inflammatory in etiology such as due to aspiration. ?No new airspace opacity has developed in the interval. 3. ?Persistent linear tract of gas extending from the right lateral mid to distal aspect of the esophagus which communicates with the right pleural space, in keeping with the known fistula as seen on the recent esophagram study. ?High attenuation material in the dependent right pleural space is nonspecific and may represent either contrast material from an esophagram study versus blood products. ?Correlate with the chest tube output for the presence of blood. 4. ?Stable mediastinal and right hilar lymphadenopathy, probably reactive. 5. ?Mild ascites in the upper abdomen, unchanged. ? Us Abd 05/04/18: IMPRESSION: PATENT TIPS. PATENT HEPATIC VASCULATURE WITH APPROPRIATELY DIRECTED FLOW. CIRRHOTIC LIVER MORPHOLOGY WITH SEQUELA OF PORTAL HYPERTENSION. ?NO HEPATIC LESION. SMALL-VOLUME ASCITES. ? IMPRESSION / PLAN 52 yo M with a h/o cirrhosis, EtoH related, CKD, COPD and reported + PPD in the past. Currently no clinical or imaging evidence of active pulmonary TB. ? Presenting with hemorrhagic shock secondary to hematemesis/esophageal tear c/b pneumomediastinum; no surgical intervention planned at this time. EGD 04/26/18 with reported improvement in esophageal tear (31-38cm). Esophageal stent placed last week, to be removed in four weeks. ? S/p TIPS 04/30/18: SUCCESSFUL TRANSJUGULAR JS-SYSTEMIC SHUNT. ?PATIENT WILL REQUIRE HEPATIC VASCULAR/TIPS ULTRASOUND FOR BASELINE VELOCITIES IN 4-5 DAYS. PORTOATIRAL GRADIENT WAS REDUCED FROM 18 MM HG TO 4 MM HG. ? 05/01/2018 Right VATS exploration, Right thoracotomy, Total right pleural decortication, primary repair of esophageal perforation with intercostal muscle flap, bronchoscopy and esophagoscopy. Surgical pathology: Right pleural tissue, biopsy - Organizing acute pleuritis with purulent exudates, consistent with empyema. Discharged form SICU - R side chest tube removed today 05/10/2018 I was called for copat placement today for discharge plans. Plan: Plan to continue fluconazole while in house - Change metronidazole and aztreonam, start ertapenem - continue vancomycin HIVAT done PICC line - double lumen Signing off. I will see pt again at your request. Marguerite Li MD Staff, Department of Infectious Disease Pager: [phone] May 10, 2018 4:31 PM CONSULT PROG Observed: 05/10/2018 Status: COMPLETED Source: [place] 2:[address] [facility] ID: [id number] Author: Katie Calderón Service: NST-Nutrition Support Team Author Type: Physician Type: Consult Progress Note Filed: 05/10/2018 3:18 PM Note Text: NUTRITION SUPPORT TEAM TOPIC: NUTRITION SUPPORT TEAM PROGRESS NOTE PATIENT NAME: Lazaro Villafana DATE OF : 1965 DATE: 05/10/2018 [facility] STAFF PHYSICIAN NOTE OF PERSONAL INVOLVEMENT IN CARE I have reviewed the progress note obtained and documented by the Nutrition Clinician. I have explored in detail with the patient the HPI and ROS, and they are summarized below. I have discussed the case and management of the patient's care with the Nutrition Clinician. I have reviewed available labs, and my exam and A/P are as follows: ASSESSMENT: 1. On TPN 2. No Malnutrition 3. Esophageal tear 4. hypoalbuminemia PLAN: Agree with recommendations as outline by clinician below. Labs were reviewed and TPN orders written: Electrolyte adjustment, cycle PN Our Service will follow. Interval History: 52 years old male on PN for esophageal tear, no N,V or abdominal pain, no CP or SOB , no cough , + lower EX edema Physical Exam: Temp: T. Max: Temp (24hrs), Av.8 ?C (98.2 ?F), Min:36.6 ?C (97.8 ?F), Max:36.9 ?C (98.5 ?F) Venous Access: Line: cvc , Site: CLEAN, NO TENDER, NO REDNESS Edema: 2+ Katie Calderón MD Pager: [phone] May 10, 2018 Nutrition Clinician Assessment Nutritional Status: No malnutrition identified per RD on 04/28/18 Interval History: Transferred from ICU on 05/07/18. Discussed with thoracic surgery; plan for pt to have 2L PICC placed and transfer to SNF on 05/13/18; requested TPN start cycling in anticipation of discharge. Plan for barium swallow in 10 days as outpatient. Assessment: 52 year old male with a history of type II DM, poorly controlled HTN, CKD, COPD, tobacco smoker 2-3 PPD, alcohol use disorder with recent diagnosis of cirrhosis was transferred from OSH with an esophageal perforation seen on EGD. S/p esophageal stent for 4 weeks then removal with strict NPO (TPN for the interim; started 04/17/18). ? Afebrile/WBC: 11.03/BC: no growth x 5 days Line: L 3L CVC (placed on 04/27/2018)- non-tender/clean/dry X-Ray: tip of left IJ om lower third SVC/right atrium on 05/07/18 Denies SOB; plan to d/c right chest tube; on O2 No edema, + small volume ascites Slightly hyperglycemia (B, 138, 149)- 100 units insulin in bag Electrolytes WDL Diureses: lasix 20 mg daily Chloride remains elevated (107) LFTs slightly elevated UO: 2725 ml; Chest Tube: 50 ml Recommendations: Continue central PN 2.0 L x 18 hours w/ 1 hour taper up AND 1 hour taper down Increase K (+21 mEq) and Phos (+4 mmol); h/o CKD noted Increase acetate Okay with 2L PICC line placement Vitals: Temperature Max in 24 hours: Temp (24hrs), Av.8 ?C (98.2 ?F), Min:36.6 ?C (97.8 ?F), Max:36.9 ?C (98.5 ?F) Current Vital Signs: BP 127/60 Pulse 88 Temp 36.9 ?C (98.5 ?F) (Oral) Resp 18 Ht 5' 10 (1.778 m) Wt 100.7 kg (222 lb 0.1 oz) SpO2 95% BMI 31.85 kg/m? Current Weight: Weight: 100.7 kg (222 lb 0.1 oz) Intake AND Output: Intake/Output Summary (Last 24 hours) at 05/10/18 1424 Last data filed at 05/10/18 1200 Gross per 24 hour Intake 1063 ml Output 2215 ml Net -1152 ml Laboratory Data: Recent Labs 05/10/18 0339 05/09/18 0340 05/08/18 0500 NA 141 143 145* K 3.8 3.7 4.1 CHLOR 107* 108* 108* CO2 25 26 26 CREAT 0.83 0.81 0.84 BUN 45* 50* 60* GLUC 149* 135* 134* P 3.2 3.2 3.6 TPROT 6.0* 6.3 6.4 ALB 2.3* 2.5* 2.6* MG 2.0 2.1 2.1 CA 8.1* 8.7 8.9 Accuchecks: Glucose, Point of Care (mg/dL) Date Value 05/10/2018 124 (A) 05/10/2018 129 (A) 05/10/2018 138 (A) 05/09/2018 127 (A) Monica Rush RD, LD, [facility] Pager: [phone] PROGRESS Observed: 05/10/2018 Status: COMPLETED Source: [place] 1:00 PM [facility] REPOSITORY HNO ID: [id number] Author: Rene Gomes Service: (none) Author Type: (none) Type: Progress Notes Filed: 05/10/2018 1:01 PM Note Text: Radiology Service Progress Note PATIENT NAME: Lazaro Villafana DATE OF SERVICE: May 10, 2018 TIME: 1:00 PM PATIENT IDENTITY VERIFICATION COMPLETED USING TWO (2) METHODS: Patient confirmed name verbally and ID band matches.. PATIENT GENDER DATA: Male PATIENT RELEVANT IMPLANT DATA REVIEWED: Not Applicable RADIOLOGY DEPARTMENT: General X-ray: Exam(s) Completed: Chest X-Ray PERIPHERAL IV DATA: Not applicable SIGNED BY: Rene Gomes May 10, 2018 1:00 PM XR CHEST 2V FRONTAL/LAT Observed: 05/10/2018 Status: F Source: [place] 12:59 PM [facility] REPOSITORY * * *Final Report* * * DATE OF EXAM: May 10 2018 12:59PM [id number] - XR CHEST 2V FRONTAL/LAT / PROCEDURE REASON: Post-operative / post-procedure assessment, asymptomatic * * * * Physician Interpretation * * * * EXAMINATION: CHEST RADIOGRAPH (2 VIEW FRONTAL and LATERAL) CLINICAL HISTORY: Post-operative / post-procedure assessment, asymptomatic, MQ: XC2_5 Comparison: Earlier same day at 5:40 AM RESULT: Lines, tubes, and devices: Interval removal of one of the right basilar pleural tube . Left IJ central venous catheter terminates near superior cavoatrial junction region. Right remaining pleural tube noted, tip terminating about the level of the right fifth proximal rib. Lungs and pleura: Mildly lordotic projection. Persistent right pleural effusion, stable to slightly increased with fluid tracking into the minor fissure. Associated atelectasis presumed. Prominent pulmonary vasculature with pulmonary venous congestion suspected. No large new lung consolidation. No large pneumothorax. Cardiomediastinal silhouette: Stable cardiomediastinal silhouette. Other: Stable skeletal structures. IMPRESSION: See body of the report Steel Turner: NIDHI Transcribe Date/Time: May 10 2018 1:33P Dictated by : ARABELLA CRUZ MD This examination was interpreted and the report reviewed and electronically signed by: ARABELLA CRUZ MD on May 10 2018 1:35PM EST [id number] PROGRESS Observed: 05/10/2018 Status: COMPLETED Source: [place] 12:28 PM [facility] REPOSITORY HNO ID: [id number] Author: Amy Horton) Duale Service: Thoracic Surgery Author Type: Nurse Practitioner Type: Progress Notes Filed: 05/10/2018 12:37 PM Note Text: [facility]OR[facility] POSTOP PROGRESS NOTE DAY OF SURGERY: 05/01/2018 OPERATION: Right thoracoscopy, right posterolateral thoracotomy, complete decortication of the right pleural space, esophageal mobilization, primary repair of the esophagus, intercostal muscle flap based on intercostal vascular pedicle, flexible endoscopy, flexible bronchoscopy for mid esophageal perforation, extensive right pleural empyema, liver cirrhosis, 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 INTERVAL EVENTS / PERTINENT ROS: Patient had an uneventful night. No additional Hemodynamically stable, afebrile, no chills, no diaphoresis. Pain controlled. Denies any SOB, lightheadedness, dizziness. No nausea/vomiting or bloating sensation while NPO. + flatus and no BM. Right chest tube to water seal no noted air leak drained 30 cc of sero sang fluid yesterday. Right chest tube removed, purse string tied, and Vaseline gauze immediately applied. CXR ordered. Patient tolerated procedure well. Labs: WBC 11.03 H/H 9.6/30.4, potassium 3.8 CXR: no pneumothorax Plan: -consult ID -ID to write COPAT -double lumen PICC placement today -once PICC place remove Left IJ catheter -DC right chest tube -continue anahi drain to bulb -potassium 20 meq IV today -strict NPO/TPN -barium swallow in 10 days as an outpatient Rhythm: SR 81 Intake/Output Summary (Last 24 hours) at 05/10/18 1228 Last data filed at 05/10/18 1200 Gross per 24 hour Intake 1063 ml Output 2865 ml Net -1802 ml BP 129/64 Pulse 85 Temp 36.9 ?C (98.4 ?F) (Oral) Resp 18 Ht 177.8 cm (5' 10) Wt 100.7 kg (222 lb 0.1 oz) SpO2 96% BMI 31.85 kg/m? room air PHYSICAL EXAM: Constitutional: Obese and No acute distress HEENT: Fair dentition and No lesions Resp: Clear and Respiratory effort: normal Cardiovascular: Regular rate AND rhythm GI: Soft and Non-tender Integumentary: Warm and Dry Musculoskeletal: No deformities Neurological/Psychiatric: Oriented to time, place AND person , Alert and No gross focal neurologic deficits Additional systems reviewed: No additional systems reviewed Drains: -Left IJ TLC with clean entry site and intact dressing -right anahi drain to bulb holding suction drained 10 cc of sero sang fluid yesterday Incisions: -Right posterolateral thoracotomy -with surgical glue, well approximated, no erythema, swelling, warmth, or drainage noted -right lateral chest wound packed wet to dry with intact dressing HISTORY, ASSESSMENT AND PLAN: Problem Esophageal Perforation History: 52 year old male with COPD, DM2, liver cirrhosis secondary to ETOH abuse, esophageal varices, portal hypertension and ascites, presented to [facility] 04/14/18 with massive upper GI bleed from esophageal varices. Initially had a Sengstaken-Tony tube placed to tamponade the bleed, subsequently, underwent multiple endoscopies and was noted to have a contained perforation of the mid esophagus that at some point during became full thickness perforation likely went unrecognized because of the fact that perforation was covered by a clot every time he underwent endoscopy and also because he had NG decompression which prevented any extensive leakage into right pleural space, though he did have some soilage into R pleural space. Esophageal stent was placed but failed to contain the leak. Due to extensive comorbidity, undrained pleural space and ongoing perforation, he underwent urgent TIPS procedure 04/30/18, then was taken to OR 05/01/[address] Gr performed right posterolateral thoracotomy, complete right pleural decortication, primary repair of the esophagus and intercostal muscle flap based on intercostal vascular pedicle. Infectious disease consulted for help with antibiotics Assessment: Mid esophageal perf after hematemesis c/b empyema; Status post thoracotomy, repair of esophageal perf on 05/02/18 Plan: -Tubes: Remove right chest tube and continue right chest anahi to bulb- monitor amount and color of drainage -Monitor surgical drains for bleeding, chyle or anastomotic leak -ID: Appreciate ID recs (aztreonam 2g IV q6H, fluconazole 400 mg IV QD, flagyl 500 mg IV q8H, vanc 1g IV BID) -ID to write COPAT -Double lumen PICC ordered -Diet: Strict NPO to allow repair to heal; TPN in the interim (~4 weeks?). Diet to be advanced in outpatient -Afib prophylaxis x 30 days postop -GI stress ulcer prophylaxis x 30 days postop -Activity: ambulate/out of bed at least TID as able Essential Hypertension History: home med: amlodipine 10 mg daily, losartan 50 mg daily. Now NPO since repair of esophageal tear on 05/01/18 Assessment: BP's normotensive on clonidine patch 0.2, enalaprilat 1.25 mg IV q6H, metoprolol 10 mg IV q6H, lasix 20 mg IV daily, hydralazine 20 mg IV q6H. NPO Plan: -Continue current regimen -monitor blood pressure Type II Diabetes Mellitus (Hcc) History: History of poorly controlled DM2, last Hgb A1c was 8.2 on 03/07/18. Admitted 04/05/18 for hematemesis and mid esophageal perf and has been NPO and on TPN Assessment: glucose ranged 124-129 while NPO and on TPN Plan: -Diet: NPO, TPN -Accucheck q6H with lispro sliding scale prn Alcoholic Cirrhosis (Hcc) History: History of presumed EtOH related cirrhosis with risk factors for BOONE with disease course c/b portal HTN (EV) who presented 04/14/18 to OSH with nausea, vomiting, melena, and hematemesis prompting tony tube placement at that time (unsure if gastric vs. Gastric and esophageal balloon inflated) found to have partial thickness esophageal tear and large EV. Transferred to [facility] 04/15/18. Hospital course c/b right empyema with fevers an purulent chest tube output on while on vancomycin/aztreonam/diflucan, respiratory failure requiring intubation now extubated (04/22) and stable from pulmonary standpoint, and on TPN. Underwent TIPS 04/30/18 with sinusoidal gradient form 18->4mmHg just prior to thoracotomy, R pleural decortication, repair of esophageal perforation on 05/01/18. Ultrasound 05/04/18 showed patent shunt Assessment: S/p TIPS placement 04/30/18 with sinusoidal gradient 18 pre and 4 post procedure. Plan: -Has increased risk of post-TIPS encephalopathy given hx of prior encephalopathy; Monitor post-procedurally and TIPS can be adjusted if patient develops encephalopathy -If signs of hepatic encephalopathy manifest, start lactulose 20 gms QID and titrate to 3-4 bowel movements daily -CMP and INR daily INR today 1.3 Acute Post-Operative Pain History: Status post: VATS converted to thoracotomy, total pulm decortication, primary repair of mid esophageal tear on 05/01/18. Assessment: While NPO after repair of esophageal tear, reports adequate pain control with hydromorphone IV prn. Plan: -Continue current regimen. -Continue to re-assess pain control to keep pain level at 4 or less Tobacco Abuse History: Patient is a current everyday smoker Assessment: Has not smoked since admission to hospital. Plan: -Encourage smoking cessation and continue education as an outpatient Empyema Lung (Hcc) History: Mid esophageal perforation complicated by right empyema with fevers and purulent chest tube output. Infectious disease consulted for antibiotics. Underwent thoracotomy, decortication, primary repair of perf on 05/01/18 Assessment: S/p decortication and primary repair of esophageal perf on 05/01/18; afebrile while on antibiotics Plan: -See plan under 'esophageal perf' -ID consulted Stage 2 Chronic Kidney Disease History: PHX CKD Assessment: Scr 0..83, BUN 45. Made 2.7L urine yesterday Plan: -Avoid hypotension, nephrotoxic agents, and renally dose medications. -Trend creatinine and monitor urine output Discharge Planning Issues History: and lives in [place], [place]. Admitted 05/08/18 for hematemesis, underwent TIPS procedure, then thoracotomy, pleural decortication and primary repair of esophageal tear on 05/01/18 Assessment: Anticipate discharge to SNF once clinically stable. Skilled needs postop: central line care, IV antibiotics, TPN Plan: - Discuss needs with patient and collaborate with case management - Will continue to evaluate during hospital admission. DAILY STEP DOWN CHECKLIST FOR CATHETER RELATED INFECTION PREVENTION CVC, PICC, Dheeraj and/or Permacath present? No Does the patient have a urinary catheter beyond POD 2? No VTE Risk Assessment: High risk VTE Mechanical and/or Pharmacologic Prophylaxis: IPC Device and Subcutaneous Heparin Labs and medications reviewed in [facility] SIGNATURE: Amy Sampson APRN.CNP PATIENT NAME: Lazaro Villafana DATE: May 10, 2018 TIME: 12:28 PM PAGER/CONTACT #: [phone] THERAPY NT Observed: 05/10/2018 Status: COMPLETED Source: [place] 11:48 AM [facility] REPOSITORY HNO ID: [id number] Author: Manjula GhoshPt) Jose Service: Physical Therapy Author Type: Physical Therapist Type: Therapy (PT/OT/Speech/Resp) Filed: 05/10/2018 11:53 AM Note Text: Physical Therapy Treatment SERVICE DATE: 05/10/2018 SERVICE TIME: 1042 to 1110 ROOM: [place] [address] Recommended Discharge Disposition: Subacute/SNF Recommended Discharge Disposition Comments: ( ) Anticipated Discharge Needs: Undetermined PT Recommendations to Nursing: Passive lift to/from chair;Utilize bed in chair position PT 6 Clicks Score: 10 Precautions/Activity Restrictions: Lines/Tubes/Drains;Fall Risk Precaution/Activity Restriction Comments: R chest tube ASSESSMENT : Pt with decreased motivation this date. Declined OOB or sitting EOB. Pt completed minimal supine there-ex with VC's and encouragement to continue. Pt is appropriate for SNF level of care at this time. Patient Disposition at Start of Session: Supine in Bed Patient Disposition at End of Session: Supine in Bed Tolerance Limited By Cooperation;Fatigue Physical Therapy Problem List: Education Deficit;Pain;Safety Deficits;Decreased Activity Tolerance;Decreased Strength;Functional Mobility Impairment;Balance Impaired Patient /Caregiver Goals: Go Home Goals for Plan of Care: Able to perform HEP with: Verbal Cues Only Rolling with: Supervision Transfer supine to/from sit with: Minimal Assistance Transfer sit to/from stand with: Minimal Assistance Ambulate with: Minimal Assistance Distance: 50ft Device: Wheeled Walker Ambulate up and down steps with: Contact Guard Assistance Number of steps: 3 Device: Rail Transfer: OOBTC with min A Progress Toward Goals: Progressing as expected Rehab Potential: Good PLAN: Treatment Frequency (times per week): 3 Current admission Treatment Interventions: Education;Strengthening;Functional Mobility Training;Balance Training Plan of Care developed with: Patient TREATMENT INTERVENTIONS: Therapy Diagnosis: Reduced mobility-other Interventions Provided: Therapeutic Exercise (72660) Therapeutic Exercise (92484) Treatment Minutes: 28 2 units Skilled Intervention(s): Instruction in therapeutic exercise Supine LE ther-ex completed AP, QS, GS, HS (2 sets), SLR Require encouragement and VC for technique. Total Timed Code Treatment Minutes: 28 Total Treatment Time (minutes): 28 FUNCTIONAL G CODE: PT 6 Clicks Score: 10 (05/10/18 1042) Mobility: Walking and Moving Around Current Status (G8978): CM (04/25/18 1145) Mobility: Walking and Moving Around Goal Status (G8979): CL (04/25/18 1145) Based on clinical assessment and the score on the 6 Clicks Functional Assessment Tool, the G code and corresponding severity modifiers are documented above. SUBJECTIVE: Current Hospital Course: Chart reviewed and no significant medical updates relevant to therapy were noted Reason for Physical Therapy Consult : Critical care therapy Relevant Past Medical History: CKD. DM. COPD. ETOH. Cirrhosis. HTN. Patient Report: Maybe I'll try to sit up this afternoon. 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 Entry To Home: Stairs Number Of Stairs Into Home: 3 Number Of Stairs To Bed/Bath: 0 Equipment Owned: Cane;Wheeled Walker Prior Functional Level: Within Functional Limits OBJECTIVE: Mini Cog Score: 2 (04/28/18 0830) CURRENT FUNCTIONAL STATUS: NT This date due to pt declined Current Functional Mobility Assist Level Additional Information Rolling Moderate Assistance Supine to Sit Moderate Assistance Sit to Supine ( ) Scooting Moderate Assistance Sit to Stand Maximal Assistance Stand to Sit Maximal Assistance Bed to Chair Maximal Assistance Bed To Chair Transfer Type: Stand Pivot Bed To Chair Transfer Equipment: (2 person assist) Toilet/Commode Gait Stairs Curb Step Car Transfer -HLM: 2: Bed activities / dependent transfer Please see discipline specific clinical documentation flowsheet for complete details for this therapy evaluation/treatment. SIGNATURE: Manjula Garcia PT PATIENT NAME: Lazaro Villafana DATE: May 10, 2018 TIME: 11:48 AM CASE MANAGEM Observed: 05/10/2018 Status: COMPLETED Source: [place] 10:13 AM [facility] REPOSITORY HNO ID: [id number] Author: Makenna (Rn) BLAYNE Aparicio Service: Care Management Author Type: Registered Nurse Type: Care Mgt Progress Note Filed: 05/10/2018 3:52 PM Note Text: CARE MANAGEMENT PROGRESS NOTE SERVICE DATE: 05/10/2018 SERVICE TIME: 10:13 AM LOS: 26 days Needs Prior to Discharge: Bed Availability;IV Antibiotics;OT/PT Evaluation;Precertification;Discharge Transportation Procedure Needed: PICC/Dheeraj insertion EMR reviewed. Discussed with PARAPROFESSIONAL AIDE. Met with patient. 52 yr old male from [facility] s/p 05-01-18 Right thoracoscopy, right posterolateral thoracotomy, complete decortication of the right pleural space, esophageal mobilization, primary repair of the esophagus, intercostal muscle flap based on intercostal vascular pedicle, flexible endoscopy, flexible bronchoscopy for mid esophageal perforation, extensive right pleural empyema, liver cirrhosis, 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 TIPS 04-30-18 Pt on TPN. Will start to cycle. Last ID note 05/06. Will contact ID for recommendation. Will likely need CoPAT. Will need PICC/Dheeraj. Lats PT/OT notes 05/06. Paged PT and OT for updated notes. Patient accepted by [facility] . CM from SNF to come and speak to the patient today. Will need precert. Case Management will continue to follow medical course and plan discharge accordingly. 3:51 PM Alaina Ivory CM from [facility] assessed. Conderned about discharge to SNF on aztreonam due to daily cost. Communicated to PARAPROFESSIONAL AIDE. SIGNATURE: Makenna Aparicio RN PATIENT NAME: Lazaro Villafana DATE: May 10, 2018 TIME: 10:13 AM PAGER/CONTACT #: [phone] XR CHEST 1V FRONTAL Observed: 05/10/2018 Status: F Source: [facility] 5:42 AM [facility] REPOSITORY * * *Final Report* * * DATE OF EXAM: May 10 2018 5:42AM JIX [id number] - XR CHEST 1V FRONTAL PORT / PROCEDURE REASON: Acute respiratory illness * * * * Physician Interpretation * * * * CHEST RADIOGRAPH (PORTABLE SINGLE VIEW AP) Exam Date/Time: 05/10/2018 5:42 AM Indications: Acute respiratory illness MQ: XCPMC_5 Comparison: 1 day earlier RESULTS: See Impression. IMPRESSION: Lines, Tubes, and Devices: Stable support lines and tubes. Lungs and Pleura: Right effusion and right-sided opacities are unchanged. No pneumothorax. Cardiomediastinal silhouette: Stable cardiac silhouette. Steel Turner: PSCB Transcribe Date/Time: May 10 2018 8:29A Dictated by : JUANCARLOS AHUMADA MD This examination was interpreted and the report reviewed and electronically signed by: JUANCARLOS AHUMADA MD on May 10 2018 8:29AM EST [id number] Collected: 05/10/2018 Status: F Source: [place] 3:39 AM [facility] REPOSITORY TYPE CODE TESTS RESULT OUT OF RANGE REFERENCE UNITS LAB PSEC 9.7-13.0 sec High PT Sec 13.7 LAB INR 0.9-1.3 PT INR 1.3 Result Comment: Vitamin K Antagonist (VKA) Therapeutic Range: INR 2 to 3 (Target INR of 2.5) Note: For patients treated with VKA drugs, such as warfarin, the [place] [employer] 2012 Guideline recommends a therapeutic INR range of 2 to 3 (target INR of 2.5). This recommendation includes high-risk patients with antiphospholipid syndrome with previous arterial or venous thromboembolism, current-generation mechanical or bioprosthetic aortic heart valve replacement. Note: Patients with mechanical aortic valve replacement and additional risk factors for thromboembolic events (atrial fibrillation, previous thromboembolism, LV dysfunction, hypercoagulable conditions) or an older generation mechanical AVR (i.e., ball in-Cage) or any mechanical MVR should have a INR therapeutic range of 2.5 to 3.5 (target INR of 3). Pradeeptt GH, et al. Chest 2012, 141:7S-47S Rashida RA, et al. [facility] 2017, 70: 252-289 Performed By: #### PT, CBC, CMP, MG1, PHOS #### [facility] [address] [id number] CBC Collected: 05/10/2018 Status: F Source: [place] 3:39 AM [facility] REPOSITORY TYPE CODE TESTS RESULT OUT OF REFERENCE UNITS RANGE LAB WBC 3.70-11.00 k/uL WBC High 11.03 LAB RBC 4.20-6.00 m/uL Low RBC 3.26 LAB HGB 13.0-17.0 g/dL Low Hemoglobin 9.6 LAB HCT 39.0-51.0 % Low Hematocrit 30.4 LAB MCV 80.0-100.0 fL MCV 93.3 LAB MCH 26.0-34.0 pG MCH 29.4 LAB MCHC 30.5-36.0 g/dL MCHC 31.6 LAB RDWCV 11.5-15.0 % RDW-CV High 17.3 LAB PLTCT 150-400 k/uL Low Platelet Count 121 LAB MPV 9.0-12.7 fL MPV 10.4 LAB ABSNUC <0.01 k/uL Absolute nRBC <0.01 Performed By: #### PT, CBC, CMP, MG1, PHOS #### [facility] [address] [place], [place] [address] COMP METABOLIC PANEL Collected: 05/10/2018 Status: F Source: [place] 3:39 AM [facility] REPOSITORY TYPE CODE TESTS RESULT OUT OF REFERENCE UNITS RANGE LAB TP 6.3-8.0 g/dL Low Protein, Total 6.0 LAB ALB 3.9-4.9 g/dL Low Albumin 2.3 LAB CA 8.5-10.2 mg/dL Low Calcium, Total 8.1 LAB TBIL 0.2-1.3 mg/dL Bilirubin, Total 1.1 LAB ALKP 38-113 U/L Alkaline Phosphatase 78 LAB AST 14-40 U/L AST High 52 LAB GLU 74-99 mg/dL Glucose High 149 Result Comment: The [place] [employer] (ADA) provides guidance for cutoff values for fasting glucose and random glucose. The ADA defines fasting as no caloric intake for at least 8 hours. Fas ting plasma glucose results between 100 to 125 mg/dL indicate increased risk for diabetes (prediabetes). Fasting plasma glucose results greater than or equal to 126 mg/dL meet the criteria for diagnosis of diabetes. In the absence of unequivocal hyperglycemia, results should be confirmed by repeat testing. In a patient with classic symptoms of hyperglycemia or hyperglycemic crisis, random plasma glucose results greater than or equal to 200 mg/dL meet the criteria for diagnosis of diabetes. Reference: Standards of Medical Care in Diabetes 2016, [place] [employer]. Diabetes Care. 2016.39(Suppl 1). LAB BUN 9-24 mg/dL BUN High 45 LAB CRET 0.73-1.22 mg/dL Creatinine 0.83 LAB NA 136-144 mmol/L Sodium 141 LAB K 3.7-5.1 mmol/L Potassium 3.8 LAB CL 97-105 mmol/L Chloride High 107 LAB CO2 22-30 mmol/L CO2 25 LAB AGAP 9-18 mmol/L Anion Gap 9 LAB ALT 10-54 U/L ALT 46 LAB GFRAA eGFR- Amer. >60 LAB GFRNAA . eGFR-All Other Races >60 Result Comment: eGFR (Estimated GFR) Units of measure: mL/min/1.73 meters squared eGFR is derived from the reexpressed MDRD Study equation using the following parameters: serum creatinine, age, gender and race. The creatinine assay has been calibrated to be traceable to IDMS. An eGFR <60 mL/min/1.73m2 for >3 months is consistent with chronic kidney disease. Refer to KDOQI guidelines for clinical interpretation. In patients with unstable renal function, e.g. those with acute kidney injury, the eGFR may not accurately reflect actual GFR. Performed By: #### PT, CBC, CMP, MG1, PHOS #### [facility] [address] [place] [address] MAGNESIUM Collected: 05/10/2018 Status: F Source: [place] 3:39 AM [facility] REPOSITORY TYPE CODE TESTS RESULT OUT OF REFERENCE UNITS RANGE LAB MG 1.7-2.3 mg/dL Magnesium 2.0 Performed By: #### PT, CBC, CMP, MG1, PHOS #### [facility] [address] [place] [address] PHOSPHORUS Collected: 05/10/2018 Status: F Source: [place] 3:39 AM [facility] REPOSITORY TYPE CODE TESTS RESULT OUT OF REFERENCE UNITS RANGE LAB PHOS 2.7-4.8 mg/dL Phosphorus 3.2 Performed By: #### PT, CBC, CMP, MG1, PHOS #### [facility] [address] [place] [address] PROGRESS Observed: 05/09/2018 Status: COMPLETED Source: [place] 3:32 PM [facility] REPOSITORY HNO ID: [id number] Author: Amy (Filiberto) Duale Service: Thoracic Surgery Author Type: Nurse Practitioner Type: Progress Notes Filed: 05/09/2018 4:14 PM Note Text: [facility] POSTOP PROGRESS NOTE DAY OF SURGERY: 05/01/2018 OPERATION: Right thoracoscopy, right posterolateral thoracotomy, complete decortication of the right pleural space, esophageal mobilization, primary repair of the esophagus, intercostal muscle flap based on intercostal vascular pedicle, flexible endoscopy, flexible bronchoscopy for mid esophageal perforation, extensive right pleural empyema, liver cirrhosis, 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 INTERVAL EVENTS / PERTINENT ROS: Patient had an uneventful night. Hemodynamically stable, afebrile, no chills, no diaphoresis. Pain controlled. Denies any SOB, lightheadedness, dizziness. No nausea/vomiting or bloating sensation while NPO. + flatus and no BM. Right posterior chest tube to water seal no noted air leak drained 20 cc of sero sang fluid yesterday. Right chest tube removed, purse string tied, and Vaseline gauze immediately applied. Right anahi drain to water seal no noted air leak. Anahi drain to bulb and holding suction. CXR ordered. Labs: WBC 12.66 H/H 10.2/33.4 CXR: no pneumothorax post pull Plan: -DC right post chest tube -strict NPO/TPN -barium swallow in 10 days Rhythm: SR 81 Intake/Output Summary (Last 24 hours) at 05/09/18 1543 Last data filed at 05/09/18 1421 Gross per 24 hour Intake 2736 ml Output 2255 ml Net 481 ml BP 135/73 Pulse 81 Temp 37.9 ?C (100.2 ?F) (Oral) Resp 20 Ht 177.8 cm (5' 10) Wt 101.7 kg (224 lb 3.3 oz) SpO2 94% BMI 32.17 kg/m? room air PHYSICAL EXAM: Constitutional: Obese and No acute distress HEENT: Fair dentition and No lesions Resp: Clear and Respiratory effort: normal Cardiovascular: Regular rate AND rhythm GI: Soft and Non-tender Integumentary: Warm and Dry Musculoskeletal: No deformities Neurological/Psychiatric: Oriented to time, place AND person , Alert and No gross focal neurologic deficits Additional systems reviewed: No additional systems reviewed Drains: -Left IJ ZULY with clean entry site and intact dressing -right anahi drain to bulb holding suction drained 70 cc of sero sang fluid yesterday -right chest tube to water seal no noted air leak drained 30 cc of sero sang fluid yesterday Incisions: -Right posterolateral thoracotomy -with surgical glue, well approximated, no erythema, swelling, warmth, or drainage noted HISTORY, ASSESSMENT AND PLAN: Problem Esophageal Perforation History: 52 year old male with COPD, DM2, liver cirrhosis secondary to ETOH abuse, esophageal varices, portal hypertension and ascites, presented to [facility] 04/14/18 with massive upper GI bleed from esophageal varices. Initially had a Sengstaken-Tony tube placed to tamponade the bleed, subsequently, underwent multiple endoscopies and was noted to have a contained perforation of the mid esophagus that at some point during became full thickness perforation likely went unrecognized because of the fact that perforation was covered by a clot every time he underwent endoscopy and also because he had NG decompression which prevented any extensive leakage into right pleural space, though he did have some soilage into R pleural space. Esophageal stent was placed but failed to contain the leak. Due to extensive comorbidity, undrained pleural space and ongoing perforation, he underwent urgent TIPS procedure 04/30/18, then was taken to OR 05/01/[address] Gr performed right posterolateral thoracotomy, complete right pleural decortication, primary repair of the esophagus and intercostal muscle flap based on intercostal vascular pedicle. Infectious disease consulted for help with antibiotics Assessment: Mid esophageal perf after hematemesis c/b empyema; Status post thoracotomy, repair of esophageal perf on 05/02/18 Plan: -Tubes: Remove right posterior chest tube and continue ight chest tube to water seal, right chest anahi to bulb -Monitor surgical drains for bleeding, chyle or anastomotic leak -ID: Appreciate ID recs (aztreonam 2g IV q6H, fluconazole 400 mg IV QD, flagyl 500 mg IV q8H, vanc 1g IV BID) -Diet: Strict NPO to allow repair to heal; TPN in the interim (~4 weeks?). Diet to be advanced in outpatient -Afib prophylaxis x 30 days postop -GI stress ulcer prophylaxis x 30 days postop -Activity: ambulate/out of bed at least TID as able Essential Hypertension History: home med: amlodipine 10 mg daily, losartan 50 mg daily. Now NPO since repair of esophageal tear on 05/01/18 Assessment: BP's normotensive on clonidine patch 0.2, enalaprilat 1.25 mg IV q6H, metoprolol 10 mg IV q6H, lasix 20 mg IV daily, hydralazine 20 mg IV q6H. Still NPO Plan: -Continue current regimen -monitor blood pressure Type II Diabetes Mellitus (Hcc) History: History of poorly controlled DM2, last Hgb A1c was 8.2 on 03/07/18. Admitted 04/05/18 for hematemesis and mid esophageal perf and has been NPO and on TPN Assessment: glucose ranged 129-137 while NPO and on TPN Plan: -Diet: NPO, TPN -Accucheck q6H with lispro sliding scale prn Alcoholic Cirrhosis (Hcc) History: History of presumed EtOH related cirrhosis with risk factors for BOONE with disease course c/b portal HTN (EV) who presented 04/14/18 to OSH with nausea, vomiting, melena, and hematemesis prompting tony tube placement at that time (unsure if gastric vs. Gastric and esophageal balloon inflated) found to have partial thickness esophageal tear and large EV. Transferred to [facility] 04/15/18. Hospital course c/b right empyema with fevers an purulent chest tube output on while on vancomycin/aztreonam/diflucan, respiratory failure requiring intubation now extubated (04/22) and stable from pulmonary standpoint, and on TPN. Underwent TIPS 04/30/18 with sinusoidal gradient form 18->4mmHg just prior to thoracotomy, R pleural decortication, repair of esophageal perforation on 05/01/18. Ultrasound 05/04/18 showed patent shunt Assessment: S/p TIPS placement 04/30/18 with sinusoidal gradient 18 pre and 4 post procedure. Plan: -Has increased risk of post-TIPS encephalopathy given hx of prior encephalopathy; Monitor post-procedurally and TIPS can be adjusted if patient develops encephalopathy -If signs of hepatic encephalopathy manifest, start lactulose 20 gms QID and titrate to 3-4 bowel movements daily -CMP and INR daily Acute Post-Operative Pain History: Status post: VATS converted to thoracotomy, total pulm decortication, primary repair of mid esophageal tear on 05/01/18. Assessment: While NPO after repair of esophageal tear, reports adequate pain control with hydromorphone IV prn Plan: -Continue current regimen. -Continue to re-assess pain control to keep pain level at 4 or less Tobacco Abuse History: Patient is a current everyday smoker Assessment: Has not smoked since admission to hospital Plan: -Encourage smoking cessation and continue education as an outpatient Empyema Lung (Hcc) History: Mid esophageal perforation complicated by right empyema with fevers and purulent chest tube output. Infectious disease consulted for antibiotics. Underwent thoracotomy, decortication, primary repair of perf on 05/01/18 Assessment: S/p decortication and primary repair of esophageal perf on 05/01/18; afebrile while on antibiotics Plan: -See plan under 'esophageal perf' Stage 2 Chronic Kidney Disease History: PHX CKD Assessment: Scr 0..81, BUN 58. Made 1.3L urine yesterday Plan: -Avoid hypotension, nephrotoxic agents, and renally dose medications. -Trend creatinine and monitor urine output Discharge Planning Issues History: and lives in [place], [place]. Admitted 05/08/18 for hematemesis, underwent TIPS procedure, then thoracotomy, pleural decortication and primary repair of esophageal tear on 05/01/18 Assessment: Anticipate discharge to SNF once clinically stable. Skilled needs postop: central line care, IV antibiotics, chest tube Plan: - Discuss needs with patient and collaborate with case management - Will continue to evaluate during hospital admission. DAILY STEP DOWN CHECKLIST FOR CATHETER RELATED INFECTION PREVENTION CVC, PICC, Dheeraj and/or Permacath present? No Does the patient have a urinary catheter beyond POD 2? No VTE Risk Assessment: High risk VTE Mechanical and/or Pharmacologic Prophylaxis: IPC Device and Subcutaneous Heparin Labs and medications reviewed in [facility] SIGNATURE: Amy Sampson APRN.CNP PATIENT NAME: Lazaro Villafana DATE: May 09, 2018 TIME: 3:43 PM PAGER/CONTACT #: [phone] CONSULT PROG Observed: 05/09/2018 Status: COMPLETED Source: [place] 2:29 PM [facility] REPOSITORY [facility] ID: [id number] Author: García Menendez (Welt Edge Rounder) Service: (none) Author Type: (none) Type: Consult Progress Note Filed: 05/09/2018 2:33 PM Note Text: Attestation signed by Shelby Galindo (Pharmacist) at 05/09/2018 2:35 PM Attestation: I have personally reviewed the information obtained by the student and updated/agree with the information contained in the note. Shelby Galindo, PharmD May 09, 2018 2:35 PM cell/pager [phone] PHARMACY VANCOMYCIN DOSING NOTE Patient Name: Lazaro Villafana Admission Date: 04/14/2018 Date of Consult: 05/09/2018 Time of Consult: 2:29 PM Indication: Pneumonia Goal Range: 15-25 mcg/mL RECOMMENDATIONS/PLAN: Pharmacy consulted for vancomycin dosing for Lazaro Villafaan, a 52 year old, male who is being treated with vancomycin for pneumonia. 1. Patient is currently ordered Vancomycin 1 g IV q12h. Today is day 18 of therapy. 2. The most recent vancomycin level was 14.3 mcg/mL drawn at 1227 on 05/09/18. This is a 12 hour level on the 18 day of therapy. 3. Will increase vancomycin to 1.25 g with a dosing interval of q12h 4. The next vancomycin level will be ordered for 05/13/18 unless clinically indicated sooner. (Pharmacy will order) We will follow patient renal function, vancomycin levels and doses with you during the course of therapy. Additional recommendations will appear in follow up notes. If you have any questions, please contact Shelby Galinod at [phone]. Age: [age] year old Allergies: ALLERGIES Allergen Reactions - Ciprofloxacin Unknown - Penicillin Unknown Tolerating cefepime Last 3 Encounter Wt Readings: Date: Wt: 04/14/2018 101.7 kg (224 lb 3.3 oz) 04/14/2018 97 kg (213 lb 13.5 oz) Last 1 Encounter Ht Readings: Date: Ht: 04/14/2018 177.8 cm (5' 10) CrCl: >100 mL/min Temp (24hrs), Av.2 ?C (98.9 ?F), Min:36.2 ?C (97.2 ?F), Max:37.9 ?C (100.2 ?F) - Current Temp: 37.9 ?C (100.2 ?F) Labs BUN (mg/dL) Date Value 05/09/2018 50 (H) 05/08/2018 60 (H) 05/07/2018 73 (H) Creatinine (mg/dL) Date Value 05/09/2018 0.81 05/08/2018 0.84 05/07/2018 0.94 WBC (k/uL) Date Value 05/09/2018 12.66 (H) 05/07/2018 11.56 (H) 05/06/2018 15.50 (H) Vancomycin Levels: Vancomycin, result (ug/mL) Date/Time Value 05/09/2018 1227 14.3 05/03/2018 1257 15.9 García Menendez (Welt Edge Rounder) CONSULT PROG Observed: 05/09/2018 Status: COMPLETED Source: [place] 1:47 PM [facility] RE[facility]ITORY [facility] ID: [id number] Author: Monica Keller) Adri Service: NST-Nutrition Support Team Author Type: Registered Dietitian Type: Consult Progress Note Filed: 05/09/2018 1:58 PM Note Text: NUTRITION SUPPORT TEAM TOPIC: NUTRITION SUPPORT TEAM PROGRESS NOTE PATIENT NAME: Lazaro Villafana DATE OF : 1965 DATE: 05/09/2018 Nutritional Status: No malnutrition identified per RD on 04/28/18 Interval History: Transferred from ICU on 05/07/18. Pt sleeping at time of team visit; appears comfortable. ILE infusing at time of visit. No new significant events. Assessment: 52 year old male with a history of type II DM, poorly controlled HTN, CKD, COPD, tobacco smoker 2-3 PPD, alcohol use disorder with recent diagnosis of cirrhosis was transferred from [facility] with an esophageal perforation seen on EGD. S/p esophageal stent for 4 weeks then removal with strict NPO (TPN for the interim; started 04/17/18). Afebrile/WBC: 11.56/BC: no growth x 5 days Line: L 3L CVC (placed on 04/27/2018)- non-tender/clean/dry X-Ray: tip of left IJ om lower third SVC/right atrium on 05/07/18 No SOB No edema, + small volume ascites Slightly hyperglycemia (B, 152, 153)- 100 units insulin in bag Electrolytes WDL (Na: 145-->143, K: 4.1-->3.7) Diureses: lasix 20 mg on 05/07/18 Chloride remains elevated (108) LFTs slightly elevated UO: 1325 ml; Chest Tube: 120 ml Recommendations: Continue central PN 2.0 L x 24 hours Increase K (+14 mEq) and Phos (+3 mmol); h/o CKD noted Increase acetate Vitals: Temperature Max in 24 hours: Temp (24hrs), Av.2 ?C (98.9 ?F), Min:36.2 ?C (97.2 ?F), Max:37.9 ?C (100.2 ?F) Current Vital Signs: BP 141/69 Pulse 92 Temp 37.9 ?C (100.2 ?F) (Oral) Resp 18 Ht 5' 10 (1.778 m) Wt 101.7 kg (224 lb 3.3 oz) SpO2 96% BMI 32.17 kg/m? Current Weight: Weight: 101.7 kg (224 lb 3.3 oz) Intake AND Output: Intake/Output Summary (Last 24 hours) at 05/09/18 1347 Last data filed at 05/09/18 1331 Gross per 24 hour Intake 2736 ml Output 2105 ml Net 631 ml Laboratory Data: Recent Labs 05/09/18 0340 05/08/18 0500 05/07/18 1203 05/07/18 0015 NA 143 145* -- 145* K 3.7 4.1 -- 4.9 CHLOR 108* 108* -- 106* CO2 26 26 -- 23 CREAT 0.81 0.84 -- 0.94 BUN 50* 60* -- 73* GLUC 135* 134* -- 157* P 3.2 3.6 -- 4.9* TPROT 6.3 6.4 6.9 7.6 ALB 2.5* 2.6* 2.7* 3.3* MG 2.1 2.1 -- 2.4* CA 8.7 8.9 -- 9.3 Accuchecks: Glucose, Point of Care (mg/dL) Date Value 05/09/2018 129 (A) 05/09/2018 137 (A) 05/08/2018 152 (A) 05/08/2018 153 (A) Monica Rush RD, LD, [facility] Pager: [phone] XR CHEST 1V FRONTAL Observed: 05/09/2018 Status: F Source: [facility] 12:55 PM [facility] REPOSITORY * * *Final Report* * * DATE OF EXAM: May 09 2018 12:55PM [id number] - XR CHEST 1V FRONTAL PORT / PROCEDURE REASON: Post-operative / post-procedure assessment, asymptomatic * * * * Physician Interpretation * * * * EXAMINATION: CHEST RADIOGRAPH (PORTABLE SINGLE VIEW AP) Exam Date/Time: 05/09/2018 12:55 PM Clinical History: Post-operative / post-procedure assessment, asymptomatic, MQ: XCPMC_5 Comparison: 05/09/2018 5:42 RESULT: See impression. IMPRESSION: Lines, tubes, and devices: One of the 3 right thoracostomy tubes has been removed in the interval. 2 right thoracostomy tubes remain in place. A left IJ catheter terminates in the lower third of the SVC. Lungs and pleura: There is persistent hazy opacity at the right lung base which obscures the right costophrenic angle, likely due to a stable small pleural effusion with adjacent atelectasis. The left lung remains clear of consolidation. No pulmonary edema. No substantial pneumothorax. Cardiomediastinal silhouette: Stable cardiomediastinal silhouette. Other: . Steel Turner: PSCB Transcribe Date/Time: May 09 2018 1:44P Dictated by : REMI PASTOR MD This examination was interpreted and the report reviewed and electronically signed by: REMI PASTOR MD on May 09 2018 1:45PM EST [id number] Collected: 05/09/2018 Status: F Source: [place] 12:27 PM [facility] REPOSITORY TYPE CODE TESTS RESULT OUT OF REFERENCE UNITS RANGE LAB VANCRA 5.0-20.0 ug/mL Vancomycin 14.3 Result Comment: Reference ranges and high/low indicator flags are provided as general guidelines only. The treating physician must determine appropriate target levels/dosing based on the specific clinical situation. Performed By: #### VANCRA #### [facility] [address] [place], [place] [address] CASE MANAGEM Observed: 05/09/2018 Status: COMPLETED Source: [place] 12:11 PM [facility] REPOSITORY HNO ID: [id number] Author: Magali (Rn) BLAYNE Grover Service: Care Management Author Type: Registered Nurse Type: Care Mgt Progress Note Filed: 05/09/2018 4:16 PM Note Text: CARE MANAGEMENT PROGRESS NOTE SERVICE DATE: 05/09/2018 SERVICE TIME: 12:10 LOS: 25 days Needs Prior to Discharge: Accepting Facility;Bed Availability;Insurance Authorization Transfer from ICU 52 yr old male from [facility] s/p 05-01-18 Right thoracoscopy, right posterolateral thoracotomy, complete decortication of the right pleural space, esophageal mobilization, primary repair of the esophagus, intercostal muscle flap based on intercostal vascular pedicle, flexible endoscopy, flexible bronchoscopy for mid esophageal perforation, extensive right pleural empyema, liver cirrhosis, 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 TIPS 04-30-18 Transferred from ICU-J over weekend. TPN 24hr, needs line ID: continue vancomycin (goal trough 15-25), aztreonam, metronidazole, fluconazole Await determinatino re COPAT Met with pt re dc needs/planning and transition of care. He is unaware of referral to [facility] from previous CM and has deferred me to his . Call to , left voicemail Received call form with initial SNF choices. Referrals sent, await determination re acceptance and bed availability. First choice [facility] SIGNATURE: Magali Grover RN PATIENT NAME: Lazaro Villafana DATE: May 09, 2018 TIME: 12:11 PM PAGER/CONTACT #: [phone] XR CHEST 1V FRONTAL Observed: 05/09/2018 Status: F Source: [facility] 5:[address] [facility] REPOSITORY * * *Final Report* * * DATE OF EXAM: May 09 2018 5:42AM [id number] - XR CHEST 1V FRONTAL PORT / PROCEDURE REASON: Acute respiratory illness * * * * Physician Interpretation * * * * EXAMINATION: CHEST RADIOGRAPH (PORTABLE SINGLE VIEW AP) Exam Date/Time: 05/09/2018 5:42 AM Clinical History: Acute respiratory illness, MQ: XCPMC_5 Comparison: 1 day prior RESULT: See impression. IMPRESSION: Lines, tubes, and devices: Unchanged Lungs and pleura: Right pleural fluid collection, areas of atelectasis and vascular crowding unchanged. Left lung clear Cardiomediastinal silhouette: Stable mild cardiomegaly Other: . Steel Turner: PSCB Transcribe Date/Time: May 09 2018 8:43A Dictated by : BEATRIZ PEDRAZA MD This examination was interpreted and the report reviewed and electronically signed by: BEATRIZ PEDRAZA MD on May 09 2018 8:44AM EST [id number] Collected: 05/09/2018 Status: F Source: [place] 3:[address] [facility] REPOSITORY TYPE CODE TESTS RESULT OUT OF RANGE REFERENCE UNITS LAB PSEC 9.7-13.0 sec High PT Sec 15.0 LAB INR 0.9-1.3 High PT INR 1.5 Result Comment: Vitamin K Antagonist (VKA) Therapeutic Range: INR 2 to 3 (Target INR of 2.5) Note: For patients treated with VKA drugs, such as warfarin, the [place] [employer] 2012 Guideline recommends a therapeutic INR range of 2 to 3 (target INR of 2.5). This recommendation includes high-risk patients with antiphospholipid syndrome with previous arterial or venous thromboembolism, current-generation mechanical or bioprosthetic aortic heart valve replacement. Note: Patients with mechanical aortic valve replacement and additional risk factors for thromboembolic events (atrial fibrillation, previous thromboembolism, LV dysfunction, hypercoagulable conditions) or an older generation mechanical AVR (i.e., ball in-Cage) or any mechanical MVR should have a INR therapeutic range of 2.5 to 3.5 (target INR of 3). Serjio GH, et al. Chest 2012, 141:7S-47S Rashida VAZQUEZ et al. [facility] 2017, 70: 252-289 Performed By: #### PT, CMP, MG1, PHOS #### [facility] [address] [place] [address] COMP METABOLIC PANEL Collected: 05/09/2018 Status: F Source: [place] 3:40 AM [facility] REPOSITORY TYPE CODE TESTS RESULT OUT OF REFERENCE UNITS RANGE LAB TP 6.3-8.0 g/dL Protein, Total 6.3 LAB ALB 3.9-4.9 g/dL Low Albumin 2.5 LAB CA 8.5-10.2 mg/dL Calcium, Total 8.7 LAB TBIL 0.2-1.3 mg/dL Bilirubin, High Total 1.7 LAB ALKP 38-113 U/L Alkaline Phosphatase 84 LAB AST 14-40 U/L AST High 68 LAB GLU 74-99 mg/dL Glucose High 135 Result Comment: The [place] [employer] Association (ADA) provides guidance for cutoff values for fasting glucose and random glucose. The ADA defines fasting as no caloric intake for at least 8 hours. Fas ting plasma glucose results between 100 to 125 mg/dL indicate increased risk for diabetes (prediabetes). Fasting plasma glucose results greater than or equal to 126 mg/dL meet the criteria for diagnosis of diabetes. In the absence of unequivocal hyperglycemia, results should be confirmed by repeat testing. In a patient with classic symptoms of hyperglycemia or hyperglycemic crisis, random plasma glucose results greater than or equal to 200 mg/dL meet the criteria for diagnosis of diabetes. Reference: Standards of Medical Care in Diabetes 2016, [place] [employer]. Diabetes Care. 2016.39(Suppl 1). LAB BUN 9-24 mg/dL BUN High 50 LAB CRET 0.73-1.22 mg/dL Creatinine 0.81 LAB NA 136-144 mmol/L Sodium 143 LAB K 3.7-5.1 mmol/L Potassium 3.7 LAB CL 97-105 mmol/L Chloride High 108 LAB CO2 22-30 mmol/L CO2 26 LAB AGAP 9-18 mmol/L Anion Gap 9 LAB ALT 10-54 U/L ALT High 59 LAB GFRAA eGFR- Amer. >60 LAB GFRNAA . eGFR-All Other Races >60 Result Comment: eGFR (Estimated GFR) Units of measure: mL/min/1.73 meters squared eGFR is derived from the reexpressed MDRD Study equation using the following parameters: serum creatinine, age, gender and race. The creatinine assay has been calibrated to be traceable to IDMS. An eGFR <60 mL/min/1.73m2 for >3 months is consistent with chronic kidney disease. Refer to KDOQI guidelines for clinical interpretation. In patients with unstable renal function, e.g. those with acute kidney injury, the eGFR may not accurately reflect actual GFR. Performed By: #### PT, CMP, MG1, PHOS #### [facility] [facility] [address] [address] MAGNESIUM Collected: 05/09/2018 Status: F Source: [place] 3:40 AM [facility] REPOSITORY TYPE CODE TESTS RESULT OUT OF REFERENCE UNITS RANGE LAB MG 1.7-2.3 mg/dL Magnesium 2.1 Performed By: #### PT, CMP, MG1, PHOS #### [facility] [address] [address] PHOSPHORUS Collected: 05/09/2018 Status: F Source: [place] 3:40 AM [facility] REPOSITORY TYPE CODE TESTS RESULT OUT OF REFERENCE UNITS RANGE LAB PHOS 2.7-4.8 mg/dL Phosphorus 3.2 Performed By: #### PT, CMP, MG1, PHOS #### [facility] [address] [address] CBC Collected: 05/09/2018 Status: F Source: [place] 3:40 AM [facility] REPOSITORY TYPE CODE TESTS RESULT OUT OF REFERENCE UNITS RANGE LAB WBC 3.70-11.00 k/uL WBC High 12.66 LAB RBC 4.20-6.00 m/uL Low RBC 3.55 LAB HGB 13.0-17.0 g/dL Low Hemoglobin 10.2 LAB HCT 39.0-51.0 % Low Hematocrit 33.4 LAB MCV 80.0-100.0 fL MCV 94.1 LAB MCH 26.0-34.0 pG MCH 28.7 LAB MCHC 30.5-36.0 g/dL MCHC 30.5 LAB RDWCV 11.5-15.0 % RDW-CV High 17.4 LAB PLTCT 150-400 k/uL Platelet Count 150 LAB MPV 9.0-12.7 fL MPV 10.6 LAB ABSNUC <0.01 k/uL Absolute nRBC <0.01 Performed By: #### CBC #### [facility] [address] [place] [id number] PROGRESS Observed: 05/08/2018 Status: COMPLETED Source: [place] 2:[address] [facility] REPOSITORY HNO ID: [id number] Author: Junie Clark (Filiberto) Favio Service: Thoracic Surgery Author Type: Nurse Practitioner Type: Progress Notes Filed: 05/08/2018 3:26 PM Note Text: [facility] THORACIC SURGERY POST-OP PROGRESS NOTE Lazaro Villafana [id number] DAY OF SURGERY: 05/01/2018 OPERATION: Right thoracoscopy, right posterolateral thoracotomy, complete decortication of the right pleural space, esophageal mobilization, primary repair of the esophagus, intercostal muscle flap based on intercostal vascular pedicle, flexible endoscopy, flexible bronchoscopy for mid esophageal perforation, extensive right pleural empyema, liver cirrhosis, 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 INTERVAL EVENTS / PERTINENT ROS: Transferred from ICU to floor last night. No acute events overnight. Afebrile. No subjective complaints. Wants to eat. Weaned to room air PERTINENT LABS: Personally reviewed; Na 145, K 4.1, creat 0.84, INR 1.5 CXR: personally reviewed, post surgical changes, small/stable loculated right effusion TELEMETRY: most recent recordings reviewed, SR PLAN: Keep all surgical drains Monitor electrolytes Antibiotics per ID Barium swallow tomorrow? Intake/Output Summary (Last 24 hours) at 05/08/18 1442 Last data filed at 05/08/18 1344 Gross per 24 hour Intake 0 ml Output 4285 ml Net -4285 ml PHYSICAL EXAM: Blood pressure 168/84, pulse 85, temperature 37.3 ?C (99.2 ?F), temperature source Oral, resp. rate 20, height 177.8 cm (5' 10), weight 102.1 kg (225 lb 1.4 oz), SpO2 95 %. Room air GENERAL: alert, no acute distress, well-hydrated, well nourished HEENT: normocephalic, midline, anicteric sclera. LUNGS: clear HEART: RRR without murmur ABDOMEN: Soft, non-tender, non distended. No masses EXTREMITIES: No clubbing, cyanosis or edema. MUSCULOSKELETAL: Muscular strength intact. SKIN: turgor normal, no suspicious rashes or lesions NEURO: Sensation grossly intact. Incisions: Right posterolateral thoracotomy Incision assessment: Well approximated. No swelling, warmth, erythema or drainage Tubes/Lines/Drains: -Left IJ central line -Right chest tube to water seal, no air leak, drained 30 cc seroang fluid yesterday -Right chest anahi drain x 2 to water seal, no air leak, drained 20 cc and 60 cc serosang fluid yesterday HISTORY, ASSESSMENT AND PLAN: Problem Esophageal Perforation History: 52 year old male with COPD, DM2, liver cirrhosis secondary to ETOH abuse, esophageal varices, portal hypertension and ascites, presented to [facility] 04/14/18 with massive upper GI bleed from esophageal varices. Initially had a Sengstaken-Tony tube placed to tamponade the bleed, subsequently, underwent multiple endoscopies and was noted to have a contained perforation of the mid esophagus that at some point during became full thickness perforation likely went unrecognized because of the fact that perforation was covered by a clot every time he underwent endoscopy and also because he had NG decompression which prevented any extensive leakage into right pleural space, though he did have some soilage into R pleural space. Esophageal stent was placed but failed to contain the leak. Due to extensive comorbidity, undrained pleural space and ongoing perforation, he underwent urgent TIPS procedure 04/30/18, then was taken to OR 05/01/[address] Gr performed right posterolateral thoracotomy, complete right pleural decortication, primary repair of the esophagus and intercostal muscle flap based on intercostal vascular pedicle. Infectious disease consulted for help with antibiotics Assessment: Mid esophageal perf after hematemesis c/b empyema; Status post thoracotomy, repair of esophageal perf on 05/02/18; Plan: -Tubes: Right chest tube to water seal, right chest anahi x 2 to bulbs -Monitor surgical drains for bleeding, chyle or anastomotic leak -ID: Appreciate ID recs (aztreonam 2g IV q6H, fluconazole 400 mg IV QD, flagyl 500 mg IV q8H, vanc 1g IV BID) -Diet: Strict NPO to allow repair to heal; TPN in the interim (~4 weeks?). Diet to be advanced in outpatient -Afib prophylaxis x 30 days postop -GI stress ulcer prophylaxis x 30 days postop -Activity: ambulate/out of bed at least TID as able Hydropneumothorax A/P: Continue to monitor CT output. Empyema Lung (Hcc) History: Mid esophageal perforation complicated by right empyema with fevers and purulent chest tube output. Infectious disease consulted for antibiotics. Underwent thoracotomy, decortication, primary repair of perf on 05/01/18 Assessment: S/p decortication and primary repair of esophageal perf on 05/01/18; afebrile while on antibiotics Plan: -See plan under 'esophageal perf' Alcoholic Cirrhosis (Hcc) History: History of presumed EtOH related cirrhosis with risk factors for BOONE with disease course c/b portal HTN (EV) who presented 04/14/18 to OSH with nausea, vomiting, melena, and hematemesis prompting tony tube placement at that time (unsure if gastric vs. Gastric and esophageal balloon inflated) found to have partial thickness esophageal tear and large EV. Transferred to [facility] 04/15/18. Hospital course c/b right empyema with fevers an purulent chest tube output on while on vancomycin/aztreonam/diflucan, respiratory failure requiring intubation now extubated (04/22) and stable from pulmonary standpoint, and on TPN. Underwent TIPS 04/30/18 with sinusoidal gradient form 18->4mmHg just prior to thoracotomy, R pleural decortication, repair of esophageal perforation on 05/01/18. Ultrasound 05/04/18 showed patent shunt Assessment: S/p TIPS placement 04/30/18 with sinusoidal gradient 18 pre and 4 post procedure. INR 1.5 Plan: -Has increased risk of post-TIPS encephalopathy given hx of prior encephalopathy; Monitor post-procedurally and TIPS can be adjusted if patient develops encephalopathy -If signs of hepatic encephalopathy manifest, start lactulose 20 gms QID and titrate to 3-4 bowel movements daily -CMP and INR daily Copd (Chronic Obstructive Pulmonary Disease) (Hcc) A/P: On mechanical ventilation. Vent wean as able. Acute Post-Operative Pain History: Status post: VATS converted to thoracotomy, total pulm decortication, primary repair of mid esophageal tear on 05/01/18. Assessment: While NPO after repair of esophageal tear, reports adequate pain control with hydromorphone IV prn Plan: -Continue current regimen. -Continue to re-assess pain control to keep pain level at 4 or less Type II Diabetes Mellitus (Hcc) History: History of poorly controlled DM2, last Hgb A1c was 8.2 on 03/07/18. Admitted 04/05/18 for hematemesis and mid esophageal perf and has been NPO and on TPN Assessment: euglycemic (glucose ranged 60-192) while NPO and on TPN Plan: -Diet: NPO, TPN -Accucheck q6H with lispro sliding scale prn Portal Hypertension (Hcc) Added automatically from request for surgery [id number] Stage 2 Chronic Kidney Disease History: PHX CKD Assessment: Scr 0.84, BUN 60. Made 5.4L urine yesterday Plan: -Avoid hypotension, nephrotoxic agents, and renally dose medications. -Trend creatinine and monitor urine output Essential Hypertension History: home med: amlodipine 10 mg daily, losartan 50 mg daily. Now NPO since repair of esophageal tear on 05/01/18 Assessment: Still hypertensive (systolics 160-180s), despite clonidine patch 0.2, enalaprilat 1.25 mg IV q6H, metoprolol 10 mg IV q6H, lasix 20 mg IV daily, hydralazine 20 mg IV q6H. Still NPO Plan: -Continue current regimen Severe Protein-Calorie Malnutrition (Hcc) A/P: Strict NPO. Continue TPN. Tobacco Abuse A/P: Encourage smoking cessation and continue education. Discharge Planning Issues History: and lives in [place], [place]. Admitted 05/08/18 for hematemesis, underwent TIPS procedure, then thoracotomy, pleural decortication and primary repair of esophageal tear on 05/01/18 Assessment: Anticipate discharge to SNF once clinically stable. Skilled needs postop: central line care, IV antibiotics, chest tube Plan: - Discuss needs with patient and collaborate with case management - Will continue to evaluate during hospital admission. Postoperative Hypertension Volume Overload Receiving Lasix 40 mg q6h, however, duie to rising Na level, started also on D%W. Will consider d/fabian the free water S/P Tips (Transjugular Intrahepatic Portosystemic Shunt) Hepatology Consult 05/03: --Echo done, no concern for pulmonary HTN, normal RV systolic function --- Has increased risk of post-TIPS encephalopathy given hx of prior encephalopathy; this can be monitored post-procedurally and TIPS can be adjusted after thoracic intervention completed if patient develops encephalopathy --Will need liver vasculature in 3 days to assess TIPS patency --If develops signs of HE start lactulose 20 gms QID and titrate to 3-4 bowel movements daily -Paracentesis PRN will need to be done bedside, please send for cellcount, culture, albumin, protein and cytology. --CMP and INR daily Delirium Due to General Medical Condition Hyperglycemia Insulin gtt transitioned to SSI DAILY STEP DOWN CHECKLIST FOR CATHETER RELATED INFECTION PREVENTION CVC, PICC, Dheeraj and/or Permacath present? Left IJ central line Does the patient have a urinary catheter beyond POD 2? No VTE Risk Assessment: High risk VTE Mechanical and/or Pharmacologic Prophylaxis: IPC Device, DOC hose, Subcutaneous heparin Labs and medications reviewed in [facility] SIGNATURE: Junie Stahl APRN.FLIGHT ENGINEER MANAGER PAGER: [phone] DATE of SERVICE: May 08, 2018 TIME of SERVICE: 3:11 PM CONSULT PROG Observed: 05/08/2018 Status: COMPLETED Source: [place] 11:50 AM [facility] REPOSITORY HNO ID: [id number] Author: Julio Cesar Cedillo Service: NST-Nutrition Support Team Author Type: Physician Type: Consult Progress Note Filed: 05/08/2018 1:50 PM Note Text: NUTRITION SUPPORT TEAM TOPIC: NUTRITION SUPPORT TEAM PROGRESS NOTE PATIENT NAME: Lazaro Villafana DATE OF : 1965 DATE: 05/08/2018 [facility] STAFF PHYSICIAN NOTE OF PERSONAL INVOLVEMENT IN CARE I have reviewed the progress note obtained and documented by the Nutrition Clinician. I have explored in detail with the patient the HPI and ROS, and they are summarized below. I have discussed the case and management of the patient's care with the Nutrition Clinician. I have reviewed available labs, and my exam and A/P are as follows: ASSESSMENT: 1. On TPN 2. No Malnutrition 3. Liver Cirrhosis PLAN: Agree with recommendations as outline by clinician below. Labs were reviewed and TPN orders written: Continue TPN without changes. Our Service will follow. Interval History: Transferred from ICU. No other significant changes. Physical Exam: Temp: T. Max: Temp (24hrs), Av.8 ?C (98.3 ?F), Min:36.1 ?C (97 ?F), Max:37.3 ?C (99.2 ?F) Venous Access: Line: Left triple lumen CVC, Site: clean dry Edema: No Edema Julio Cesar Cedillo MD Pager: [phone] May 08, 2018 Nutrition Clinician Assessment Nutritional Status: RECOMMENDED DIAGNOSIS: NO MALNUTRITION IDENTIFIED per Registered Dietitian on 04/28 Interval History: transferred from ICU Assessment: 52 year old male with a history of type II DM, poorly controlled HTN, CKD, COPD, tobacco smoker 2-3 PPD, alcohol use disorder with recent diagnosis of cirrhosis was transferred from [facility] with an esophageal perforation seen on EGD. S/p esophageal stent for 4 weeks then removal with strict NPO (TPN for the interim) Afebrile. No LE edema L 3 CVC Remains NPO Reviewed labs: stable Euglycemia Recommendations: Continue 2L PN with: no change Vitals: Temperature Max in 24 hours: Temp (24hrs), Av.8 ?C (98.3 ?F), Min:36.1 ?C (97 ?F), Max:37.3 ?C (99.2 ?F) Current Vital Signs: BP 146/83 Pulse 92 Temp 37.3 ?C (99.2 ?F) (Oral) Resp 20 Ht 5' 10 (1.778 m) Wt 102.1 kg (225 lb 1.4 oz) SpO2 93% BMI 32.30 kg/m? Current Weight: Weight: 102.1 kg (225 lb 1.4 oz) Intake AND Output: Intake/Output Summary (Last 24 hours) at 05/08/18 1150 Last data filed at 05/08/18 1110 Gross per 24 hour Intake 0 ml Output 4580 ml Net -4580 ml Laboratory Data: Recent Labs 05/08/18 0500 05/07/18 1203 05/07/18 0015 05/06/18 0012 NA 145* -- 145* 146* K 4.1 -- 4.9 4.0 CHLOR 108* -- 106* 110* CO2 26 -- 23 22 CREAT 0.84 -- 0.94 0.85 BUN 60* -- 73* 64* GLUC 134* -- 157* 180* P 3.6 -- 4.9* 5.2* TPROT 6.4 6.9 7.6 6.6 ALB 2.6* 2.7* 3.3* 2.3* MG 2.1 -- 2.4* 2.1 CA 8.9 -- 9.3 8.2* Accuchecks: Glucose, Point of Care (mg/dL) Date Value 05/08/2018 179 (A) 05/08/2018 146 (A) 05/07/2018 157 (A) 05/07/2018 172 (A) Janel Laura RD Pager: [phone] Increments 2 PROTIME Collected: 05/08/2018 Status: F Source: [place] 7:30 AM [facility] REPOSITORY TYPE CODE TESTS RESULT OUT OF RANGE REFERENCE UNITS LAB PSEC 9.7-13.0 sec High PT Sec 15.6 LAB INR 0.9-1.3 High PT INR 1.5 Result Comment: Vitamin K Antagonist (VKA) Therapeutic Range: INR 2 to 3 (Target INR of 2.5) Note: For patients treated with VKA drugs, such as warfarin, the [place] [employer] 2012 Guideline recommends a therapeutic INR range of 2 to 3 (target INR of 2.5). This recommendation includes high-risk patients with antiphospholipid syndrome with previous arterial or venous thromboembolism, current-generation mechanical or bioprosthetic aortic heart valve replacement. Note: Patients with mechanical aortic valve replacement and additional risk factors for thromboembolic events (atrial fibrillation, previous thromboembolism, LV dysfunction, hypercoagulable conditions) or an older generation mechanical AVR (i.e., ball in-Cage) or any mechanical MVR should have a INR therapeutic range of 2.5 to 3.5 (target INR of 3). Serjio GH, et al. Chest 2012, 141:7S-47S Rashida RA, et al. [facility] 2017, 70: 252-289 Performed By: #### PT #### [facility] [address], [place] [address] TYPE AND SCREEN Collected: 05/08/2018 Status: F Source: [place] 7:25 AM [facility] REPOSITORY TYPE CODE TESTS RESULT OUT OF REFERENCE UNITS RANGE LAB %ABR B ABO/RH(D) POSITIVE LAB % Antibody POS Screen Performed By: #### TSCR #### [facility] [address], [place] [address] COMP METABOLIC PANEL Collected: 05/08/2018 Status: F Source: [place] 5:00 AM [facility] REPOSITORY TYPE CODE TESTS RESULT OUT OF REFERENCE UNITS RANGE LAB TP 6.3-8.0 g/dL Protein, Total 6.4 LAB ALB 3.9-4.9 g/dL Low Albumin 2.6 LAB CA 8.5-10.2 mg/dL Calcium, Total 8.9 LAB TBIL 0.2-1.3 mg/dL Bilirubin, High Total 1.9 LAB ALKP 38-113 U/L Alkaline Phosphatase 86 LAB AST 14-40 U/L AST High 90 LAB GLU 74-99 mg/dL Glucose High 134 Result Comment: The [place] [employer] (ADA) provides guidance for cutoff values for fasting glucose and random glucose. The ADA defines fasting as no caloric intake for at least 8 hours. Fas ting plasma glucose results between 100 to 125 mg/dL indicate increased risk for diabetes (prediabetes). Fasting plasma glucose results greater than or equal to 126 mg/dL meet the criteria for diagnosis of diabetes. In the absence of unequivocal hyperglycemia, results should be confirmed by repeat testing. In a patient with classic symptoms of hyperglycemia or hyperglycemic crisis, random plasma glucose results greater than or equal to 200 mg/dL meet the criteria for diagnosis of diabetes. Reference: Standards of Medical Care in Diabetes 2016, [place] [employer] Association. Diabetes Care. 2016.39(Suppl 1). LAB BUN 9-24 mg/dL BUN High 60 LAB CRET 0.73-1.22 mg/dL Creatinine 0.84 LAB NA 136-144 mmol/L Sodium High 145 LAB K 3.7-5.1 mmol/L Potassium 4.1 LAB CL 97-105 mmol/L Chloride High 108 LAB CO2 22-30 mmol/L CO2 26 LAB AGAP 9-18 mmol/L Anion Gap 11 LAB ALT 10-54 U/L ALT High 76 LAB GFRAA eGFR- Amer. >60 LAB GFRNAA . eGFR-All Other Races >60 Result Comment: eGFR (Estimated GFR) Units of measure: mL/min/1.73 meters squared eGFR is derived from the reexpressed MDRD Study equation using the following parameters: serum creatinine, age, gender and race. The creatinine assay has been calibrated to be traceable to IDMS. An eGFR <60 mL/min/1.73m2 for >3 months is consistent with chronic kidney disease. Refer to KDOQI guidelines for clinical interpretation. In patients with unstable renal function, e.g. those with acute kidney injury, the eGFR may not accurately reflect actual GFR. Performed By: #### CMP, MG1, PHOS #### [facility] [address] [place] [address] MAGNESIUM Collected: 05/08/2018 Status: F Source: [place] 5:00 AM [facility] REPOSITORY TYPE CODE TESTS RESULT OUT OF REFERENCE UNITS RANGE LAB MG 1.7-2.3 mg/dL Magnesium 2.1 Performed By: #### CMP, MG1, PHOS #### [facility] [address] [place] [address] PHOSPHORUS Collected: 05/08/2018 Status: F Source: [place] 5:00 AM [facility] REPOSITORY TYPE CODE TESTS RESULT OUT OF REFERENCE UNITS RANGE LAB PHOS 2.7-4.8 mg/dL Phosphorus 3.6 Performed By: #### CMP, MG1, PHOS #### [facility] [address] [place] [address] XR CHEST 1V FRONTAL Observed: 05/08/2018 Status: F Source: [facility] 4:56 AM [facility] REPOSITORY * * *Final Report* * * DATE OF EXAM: May 08 2018 4:56AM [facility] [id number] - XR CHEST 1V FRONTAL PORT / PROCEDURE REASON: Acute respiratory illness * * * * Physician Interpretation * * * * EXAMINATION: CHEST RADIOGRAPH (PORTABLE SINGLE VIEW AP) Exam Date/Time: 05/08/2018 4:56 AM Clinical History: Acute respiratory illness, MQ: [id number] Comparison: 1 day prior RESULT: See impression. IMPRESSION: Lines, tubes, and devices: Stable Lungs and pleura: Improvement of vague opacities in the mid left lung. Small loculated right pleural effusion remains. Atelectatic changes remain at both bases, right more than left. Superimposed infiltrates/infection or edema cannot be entirely excluded. Cardiomediastinal silhouette: Stable cardiomediastinal silhouette. Other: . Steel Turner: PSCAlexys Transcribe Date/Time: May 08 2018 12:57P Dictated by : MELISSA RAHMAN MD This examination was interpreted and the report reviewed and electronically signed by: MELISSA RAHMAN MD on May 08 2018 12:58PM EST [id number] NURSING PROG Observed: 05/08/2018 Status: COMPLETED Source: [place] 2:24 AM [facility] REPOSITORY HNO ID: [id number] Author: Orlando (Rn) BLAYNE Johnson Service: (none) Author Type: Registered Nurse Type: Nursing Progress Note Filed: 05/08/2018 2:27 AM Note Text: Nursing Progress Note Patient Name: Lazaro Villafana Patient Location: J052 [id number] Event(s) / Intervention Note: The patient was observed having the following problems: BP 180/84, pt states he has had a headache since the morning prior. The time of the event occurred at: 0200. The following intervention(s) were initiated: scheduled metoprolol given. Vasotec and hydralazine were both given at 0000. [phone] paged. After the initiated interventions, the following observation(s) were made: waiting on response. nothing further noted. Will continue to observe and check with patient.. This note was completed by: ORLANDO JOHNSON RN NURSING PROG Observed: 05/07/2018 Status: COMPLETED Source: [place] 5:58 PM [facility] REPOSITORY HNO ID: [id number] Author: Bette (Rn) BLAYNE Mittal Service: Nursing Author Type: Registered Nurse Type: Nursing Progress Note Filed: 05/07/2018 5:58 PM Note Text: Nursing Progress Note Patient Name: Lazaro Villafana Patient Location: [place] [address]-2[facility] Transfer Note: Patient transferred into room/unit J52- in stable condition. Actions taken: No futher actions taken at this time. Will continue to monitor and check with patient. Patient belongings with patient. Skin assessed with Marty. Antonio MURRAY This note was completed by: Bette iMttal RN HEPATIC FUNCTN PANEL Collected: 05/07/2018 Status: F Source: [place] 12:03 PM [facility] REPOSITORY TYPE CODE TESTS RESULT OUT OF REFERENCE UNITS RANGE LAB ALB 3.9-4.9 g/dL Low Albumin 2.7 LAB TBIL 0.2-1.3 mg/dL Bilirubin, Total 1.3 LAB CBIL <0.2 mg/dL High Bilirubin,Conjuga 0.5 doc LAB ALKP 38-113 U/L Alkaline Phosphatase 85 LAB AST 14-40 U/L AST High 102 LAB ALT 10-54 U/L ALT High 84 LAB TP 6.3-8.0 g/dL Protein, Total 6.9 Performed By: #### HFP #### [facility] [address] [place], [place] [address] PROGRESS Observed: 05/07/2018 Status: COMPLETED Source: [place] 11:[address] [facility] REPOSITORY HNO ID: [id number] Author: Neda Brennan Service: Anesthesiology Author Type: Anesthesiologist Type: Progress Notes Filed: 05/07/2018 11:33 AM Note Text: [facility] CV[facility] Progress Note Name: Lazaro Villafana COORDINATION OF CARE NOTE: Important/Relevant PMH/PSH: Alcohol use disorder with recent diagnosis of cirrhosis w/ esophageal varices, type II DM, poorly controlled HTN, CKD, COPD, tobacco smoker 2-3 PPD. Hospital Course: HPI: Lazaro Villafana is a 52 year old male with alcohol use disorder with recent diagnosis of cirrhosis w/ esophageal varices who presents on transfer from OSH with hematemesis s/p EGD at OSH c/b esophageal laceration; MELD >?20. R-sided chest tube for hydropneumothorax. Admitted to [facility] SICU 04/14/18. 04/15/18: EGD showed 5cm esophageal laceration without active bleeding. 04/16/18: Right chest tube placed for effusion. 04/22/18: Extubated. 04/26/18: EGD: partial mucosal tear in mid esophagus. 04/27/18: Eesophagram showed persistent leak. 04/29/18: EGD 04/29: Esophageal stent successfully placed in Q3. Acute pulmonary insufficiency following non-thoracic surgery requiring intubation. Respiratory status improved with placement of CT to sxn. See Epic note for more details. Per discussion between Dr Jerry and Dr Soto the patient's care will be transitioned to Thoracic Surgery care, thoracic Surgery being primary team. Transferred to CVICU from SICU. 04/30-->TIPS A/P of Major Active Problems (excluding routine care and common problems): CV: SR. hypertensive. Resp: Extubated on high flow nasal cannula - weaned to 4 L O2 GI: Strict NPO, TPN. Cirrhosis. Follow INR. Esoph stent to be removed in 4 weeks. Renal: Cr normal. Hypervolemic-continue diuretics. Nephrology consulted to manage electrolytes on the floor Endo: Insulin infusion for glucose control - transitioned to SSI ID: Hospital course c/b mediastinitis with fevers an purulent chest tube output on vancomycin/aztreonam/flagyl/diflucan. ID following. Epistaxis: ENT following-->Nasal packing with Surgicel fibrillar removed by patient Neuro: Intermittently agitated. Continue olanzapine at bedtime. Lines: L IJ triple lumen (04/27/18). To Do or to Watch: Daily TPN Nephrology consult per TS to manage electrolyte abnormalities Hypertension OTHER PROBLEMS I MANAGED DURING THIS ENCOUNTER: Problem History of Hypertension Poorly controlled. Managed well with PRN meds and clonidine patch Type II Diabetes Mellitus (Hcc) A/P: Continue blood glucose control with RHI --> transitioned to SSI Volume Overload Receiving Lasix 40 mg q6h, however, duie to rising Na level, started also on D%W. Will consider d/fabian the free water Ckd (Chronic Kidney Disease) A/P: Cr 1.16. CKD. Avoid hypotension, nephrotoxic agents, and renally dose medications. Acute Post-Operative Pain A/P: Optimize pain control with PRN hydromorphone Mediastinitis Hospital course c/b mediastinitis with fevers an purulent chest tube output on vancomycin/aztreonam/diflucan. ID following. Follow blood cultures. Currently on Aztreonam, Vanco, Metronidazole, Fluconazole Hyperglycemia Insulin gtt transitioned to SSI Esophageal Perforation Recent diagnosis of cirrhosis w/ esophageal varices who presents on transfer from OSH with hematemesis s/p EGD at OSH c/b esophageal laceration. It is unlikely that this is the etiology of his massive hemoptysis, reportedly there were multiple varices that, in the background of cirrhosis is the likely etiology of his bleed. While he is requiring high doses of vasopressors, it is unlikely that the source of his shock is purely from his esophageal perforation given his lack of pleural effusion or free flowing contrast. 04/15/18: EGD showed 5cm esophageal laceration without active bleeding. 04/16/18: Right chest tube placed for effusion. 04/22/18: Extubated. 04/26/18: EGD: partial mucosal tear in mid esophagus. 04/27/18: Eesophagram showed persistent leak. 04/29/18: EGD 04/29: Esophageal stent successfully placed in Q3. SUBJECTIVE INTERVAL HISTORY: No acute events PERTINENT REVIEW OF SYSTEMS: See Assessment and Plan. Remaining ROS reviewed and negative. PHYSICAL EXAM AND PERTINENT DATA: Infusions: None Vital Signs: BP 179/88 Pulse 91 Temp 36.7 ?C (98.1 ?F) (Axillary) Resp 17 Ht 177.8 cm (5' 10) Wt 116.7 kg (257 lb 4.4 oz) SpO2 95% BMI 36.92 kg/m? Neuro: Awake and Follows commands Cardiovascular: Rhythm: regular rate and rhythm and Rate:normal sinus rhythm MAP: 85 mm Hg CVP: 11 mm Hg Pulmonary: Diminished breath sounds, right Ventilator: Extubated Recent Labs 05/06/18 1300 05/06/18 0902 05/06/18 0601 PH 7.47* 7.41 7.43 PCO2 34 37 37 PO2 160* 139* 139* HCO3 24 23 24 O2HB 97 97 97 LACT 1.3 2.0 1.0 CXR Findings: Post surgical changes, s/p VATS right. Gastrointestinal: Abdominal: Soft and Non-tender , distended Recent Labs 05/07/18 0015 05/06/18 0012 05/05/18 0004 TPROT 7.6 6.6 5.8* ALB 3.3* 2.3* 2.0* ALKPHOS 86 82 70 TBILI 1.1 0.8 0.5 AST 122* 99* 89* ALT 82* 72* 62* Heme: Recent Labs 05/07/18 0015 05/06/18 0012 05/05/18 0004 WBC 11.56* 15.50* 8.05 HB 11.5* 10.5* 9.0* HCT 35.8* 32.8* 27.7* PLT 236 289 149* Recent Labs 05/05/18 0004 PTSEC 15.4* INR 1.5* APTT 32.2 Endocrine: Renal: Stable Intake/Output Summary (Last 24 hours) at 05/07/18 0659 Last data filed at 05/07/18 0630 Gross per 24 hour Intake 4532.8 ml Output 8130 ml Net -3597.2 ml Recent Labs 05/07/18 0015 05/06/18 0012 05/05/18 0004 NA 145* 146* 145* K 4.9 4.0 3.8 CHLOR 106* 110* 110* CO2 23 22 24 BUN 73* 64* 59* CREAT 0.94 0.85 0.83 GLUC 157* 180* 148* Recent Labs 05/07/18 0015 05/06/18 0012 05/05/18 0004 CA 9.3 8.2* 7.9* Recent Labs 05/07/18 0015 05/06/18 0012 05/05/18 0004 MG 2.4* 2.1 1.9 Recent Labs 05/07/18 0015 05/06/18 0012 05/05/18 0004 P 4.9* 5.2* 4.5 Drug Blood Levels: I have discussed the case and the plan and management of the patient's care with the primary surgical team and consulting services, the bedside nurse and the respiratory therapist. SIGNATURE: Neda Brennan MD DATE of SERVICE: 05/07/2018 TIME of SERVICE: 11:31 AM CONSULT PROG Observed: 05/07/2018 Status: COMPLETED Source: [place] 7:27 AM [facility] RE[facility]IT[facility] ID: [id number] Author: Yaneli Rendon (Pharmacist) Service: Pharmacy Author Type: Pharmacist Type: Consult Progress Note Filed: 05/07/2018 7:29 AM Note Text: PHARMACY VANCOMYCIN DOSING NOTE Patient Name: Lazaro Villafana Admission Date: 04/14/2018 Date of Consult: 05/07/2018 Time of Consult: 7:27 AM Indication: Pneumonia Goal Range: 15-25 mcg/mL (increased per ID note) RECOMMENDATIONS/PLAN: Pharmacy consulted for vancomycin dosing for Lazaro Villafana, a 52 year old, male who is being treated with vancomycin for pneumonia 1. Patient is currently ordered Vancomycin 1 g IV q12h. Today is day 16 of therapy. 2. The most recent vancomycin level was 15.9 mcg/mL drawn at 12:57 on 05/03/18. This is a 12 hour level on the 12th day of therapy. 3. The present dose of vancomycin is the recommended dosage for this patient at this time. Continue therapy as prescribed. 4. The next vancomycin level will be ordered for 05/09/18 unless clinically indicated sooner. (Pharmacy will order) We will follow patient renal function, vancomycin levels and doses with you during the course of therapy. Additional recommendations will appear in follow up notes. If you have any questions, please contact EARNESTINE WOODS at [phone]. Age: [age] year old Allergies: ALLERGIES Allergen Reactions - Ciprofloxacin Unknown - Penicillin Unknown Tolerating cefepime Last 3 Encounter Wt Readings: Date: Wt: 04/14/2018 116.7 kg (257 lb 4.4 oz) 04/14/2018 97 kg (213 lb 13.5 oz) Last 1 Encounter Ht Readings: Date: Ht: 04/14/2018 177.8 cm (5' 10) CrCl: >100 mL/min Temp (24hrs), Av.2 ?C (97.2 ?F), Min:35.6 ?C (96.1 ?F), Max:36.9 ?C (98.4 ?F) - Current Temp: 36.5 ?C (97.7 ?F) Labs BUN (mg/dL) Date Value 05/07/2018 73 (H) 05/06/2018 64 (H) 05/05/2018 59 (H) Creatinine (mg/dL) Date Value 05/07/2018 0.94 05/06/2018 0.85 05/05/2018 0.83 WBC (k/uL) Date Value 05/07/2018 11.56 (H) 05/06/2018 15.50 (H) 05/05/2018 8.05 Vancomycin Levels: Vancomycin, result (ug/mL) Date/Time Value 05/03/2018 1257 15.9 04/26/2018 0148 14.4 EARNESTINE WOODS XR CHEST 1V FRONTAL Observed: 05/07/2018 Status: F Source: [facility] 12:54 AM [facility] REPOSITORY * * *Final Report* * * DATE OF EXAM: May 07 2018 12:54AM JIX [id number] - XR CHEST 1V FRONTAL PORT / PROCEDURE REASON: Acute respiratory illness * * * * Physician Interpretation * * * * EXAMINATION: CHEST RADIOGRAPH (PORTABLE SINGLE VIEW AP) Exam Date/Time: 05/07/2018 12:54 AM Clinical History: Acute respiratory illness, MQ: [id number] Comparison: 1 day prior RESULT: See impression. IMPRESSION: Lines, tubes, and devices: The tip of the left IJ venous catheter overlies the lower third of the SVC/right atrium. Multiple right thoracostomy tube remain in place. A mural stent remains positioned over the lower third of the esophagus extending into the proximal stomach. Lungs and pleura: There is a right pleural effusion with associated right mid to lower lung airspace/consolidative opacity most commonly secondary to nonspecific atelectasis or pneumonia. There are symmetric bilateral perihilar reticular opacities in the aerated portions of both lungs suggestive of interstitial edema. No pneumothorax is identified. Cardiomediastinal silhouette: Stable cardiomediastinal silhouette. No acute process identified. Other: There is mild subcutaneous emphysema in the right thoracoabdominal wall. Steel Turner: [facility] Transcribe Date/Time: May 07 2018 8:59A Dictated by : WASHINGTON MONTANEZ MD This examination was interpreted and the report reviewed and electronically signed by: WASHINGTON MONTANEZ MD on May 07 2018 9:01AM EST [id number] Collected: 05/07/2018 Status: F Source: [place] 12:15 AM [facility] REPOSITORY TYPE CODE TESTS RESULT OUT OF REFERENCE UNITS RANGE LAB MG 1.7-2.3 mg/dL High Magnesium 2.4 Result Comment: Results may be falsely increased due to interference by hemolysis. Suggest reorder as clinically indicated. Performed By: #### MG1, PHOS, CMP, CBCDIF #### [facility] [address] [place] [id number] PHOSPHORUS Collected: 05/07/2018 Status: F Source: [place] 12:15 AM [facility] REPOSITORY TYPE CODE TESTS RESULT OUT OF REFERENCE UNITS RANGE LAB PHOS 2.7-4.8 mg/dL High Phosphorus 4.9 Result Comment: Results may be falsely increased due to interference by hemolysis. Suggest reorder as clinically indicated. Performed By: #### MG1, PHOS, CMP, CBCDIF #### [facility] [address] [facility] [place], [place] [address] COMP METABOLIC PANEL Collected: 05/07/2018 Status: F Source: [place] 12:[address] [facility] REPOSITORY TYPE CODE TESTS RESULT OUT OF REFERENCE UNITS RANGE LAB TP 6.3-8.0 g/dL Protein, Total 7.6 LAB ALB 3.9-4.9 g/dL Low Albumin 3.3 Result Comment: Result rechecked. LAB CA 8.5-10.2 mg/dL Calcium, Total 9.3 LAB TBIL 0.2-1.3 mg/dL Bilirubin, Total 1.1 LAB ALKP 38-113 U/L Alkaline Phosphatase 86 LAB AST 14-40 U/L AST High 122 Result Comment: Results may be falsely increased due to interference by hemolysis. Suggest reorder as clinically indicated. LAB GLU 74-99 mg/dL High Glucose 157 Result Comment: The [place] [employer] (ADA) provides guidance for cutoff values for fasting glucose and random glucose. The ADA defines fasting as no caloric intake for at least 8 hours. Fas ting plasma glucose results between 100 to 125 mg/dL indicate increased risk for diabetes (prediabetes). Fasting plasma glucose results greater than or equal to 126 mg/dL meet the criteria for diagnosis of diabetes. In the absence of unequivocal hyperglycemia, results should be confirmed by repeat testing. In a patient with classic symptoms of hyperglycemia or hyperglycemic crisis, random plasma glucose results greater than or equal to 200 mg/dL meet the criteria for diagnosis of diabetes. Reference: Standards of Medical Care in Diabetes 2016, [place] [employer]. Diabetes Care. 2016.39(Suppl 1). LAB BUN 9-24 mg/dL BUN High 73 LAB CRET 0.73-1.22 mg/dL Creatinine 0.94 LAB NA 136-144 mmol/L Sodium High 145 LAB K 3.7-5.1 mmol/L Potassium 4.9 Result Comment: Results may be falsely increased due to interference by hemolysis. Suggest reorder as clinically indicated. LAB CL 97-105 mmol/L High Chloride 106 LAB CO2 22-30 mmol/L CO2 23 LAB AGAP 9-18 mmol/L Anion Gap 16 LAB ALT 10-54 U/L ALT High 82 Result Comment: Results may be falsely increased due to interference by hemolysis. Suggest reorder as clinically indicated. LAB GFRAA eGFR- Amer. >60 LAB GFRNAA . eGFR-All Other Races >60 Result Comment: eGFR (Estimated GFR) Units of measure: mL/min/1.73 meters squared eGFR is derived from the reexpressed MDRD Study equation using the following parameters: serum creatinine, age, gender and race. The creatinine assay has been calibrated to be traceable to IDMS. An eGFR <60 mL/min/1.73m2 for >3 months is consistent with chronic kidney disease. Refer to KDOQI guidelines for clinical interpretation. In patients with unstable renal function, e.g. those with acute kidney injury, the eGFR may not accurately reflect actual GFR. Performed By: #### MG1, PHOS, CMP, CBCDIF #### [facility] [address] [place] [id number] CBC AND DIFFERENTIAL Collected: 05/07/2018 Status: F Source: [place] 12:15 AM [facility] REPOSITORY TYPE CODE TESTS RESULT OUT OF REFERENCE UNITS RANGE LAB WBC 3.70-11.00 k/uL WBC High 11.56 LAB RBC 4.20-6.00 m/uL RBC Low 3.92 LAB HGB 13.0-17.0 g/dL Hemoglobin Low 11.5 LAB HCT 39.0-51.0 % Hematocrit Low 35.8 LAB MCV 80.0-100.0 fL MCV 91.3 LAB MCH 26.0-34.0 pG MCH 29.3 LAB MCHC 30.5-36.0 g/dL MCHC 32.1 LAB RDWCV 11.5-15.0 % RDW-CV High 18.1 LAB PLTCT 150-400 k/uL Platelet Count 236 LAB MPV 9.0-12.7 fL MPV 10.9 LAB ANEUT % Neut% 85.4 LAB AANEUT 1.45-7.50 k/uL Abs Neut High 9.87 LAB ALYMP % Lymph% 7.3 LAB AALYMP 1.00-4.00 k/uL Abs Lymph Low 0.84 LAB AMONO % Hendry% 6.4 LAB AAMONO <0.87 k/uL Abs Hendry 0.74 LAB AEOS % Eosin% 0.0 LAB AAEOS <0.46 k/uL Abs Eosin 0.00 LAB ABASO % Baso% 0.0 LAB AABASO <0.11 k/uL Abs Baso 0.00 LAB NRBC 0 /100 WBC NRBCs High 1 LAB AMYELO % Myelo% 0.9 LAB ANIIMI Anisocytosis Present LAB LFTIMI Left Shift Present LAB POLIMI Polychromasia Slight LAB PLTEST Platelet Estimate Platelet estimate adequate LAB DTYP DTYPE Manual Diff Performed By: #### MG1, PHOS, CMP, CBCDIF #### [facility] [address] [place], [place] [address] GASA + ALL Collected: 05/06/2018 Status: F Source: [place] FOR 1:00 PM [facility] RADIANCE USE ONLY REPOSITORY TYPE CODE TESTS RESULT OUT OF REFERENCE UNITS RANGE LAB PH 7.35-7.45 pH High 7.47 LAB PCO2 34-46 mm Hg pCO2 34 LAB PO2 85-95 mm Hg pO2 High 160 LAB BE mmol/L Base Excess 2 LAB HCO3 22-26 mmol/L Bicarbonate 24 LAB CO2CT 22.0-28.0 mmol/L CO2 Content 26 LAB O2HB 95-98 % Oxyhemoglobin, Art. 97 LAB COHB 0-5.0 % Carboxyhemoglobin, 1.2 Art LAB MHGB 0.4-1.5 % Methemoglobin 1.0 LAB TEMP C Temperature, Body 37.0 LAB PHTC 7.35-7.45 pH, Temp High Corrected 7.47 LAB PCO2T 34-46 mm Hg pCO2, Temp Correct 34 LAB PO2T mm Hg pO2, Temp Corrected 160 LAB NAB 135-146 mmol/L Sodium,Whole Bld 144 LAB KWB 3.5-5.0 mmol/L Potassium, Whole Bld 4.3 LAB HGBB 13.0-17.0 g/dL Low Hemoglobin,Total,A 11.4 CL LAB HCTB 39.0-51.0 % Hematocrit, Low ACL 35 LAB IC 1.08-1.30 mmol/L Calcium, Ion, WB 1.19 LAB GLB 60-105 mg/dL Glucose,Whole High Bld 216 LAB LACT 0.5-2.2 mmol/L Lactate 1.3 LAB ACBDTE Notify Date, Art [id number] LAB ACBTME Notify Time, Art Performed By: #### ALLBG #### [facility] [address] [place], [place] [address] THERAPY NT Observed: 05/06/2018 Status: COMPLETED Source: [place] 12:57 PM [facility] REPOSITORY [facility] ID: [id number] Author: ElhamOt/Whitney Salas Service: Occupational Therapy Author Type: Occupational Therapist Type: Therapy (PT/OT/Speech/Resp) Filed: 05/06/2018 1:01 PM Note Text: Occupational Therapy Treatment SERVICE DATE: 05/06/2018 SERVICE TIME: 1126 to 1206 ROOM: [place] [address] ([facility] ([facility] Vasc/Ultrasound)) Recommended Discharge Disposition: Subacute/SNF Justification For Post Acute Needs: Anticipate that patient will require daily (5x/wk) skilled therapy in a post-acute facility setting at the time of acute hospital discharge;May not tolerate higher intensity programing;Willing to participate;Motivated Anticipated Discharge Needs: Undetermined OT Recommendations to Nursing: OOB for meals;Transfer to Chair;ADL?s in chair;With assist of 2 people OT 6 Clicks Score: 13 Precautions/Activity Restrictions: Lines/Tubes/Drains;Fall Risk Precaution/Activity Restriction Comments: R chest tube ASSESSMENT: Upon assessment, patient presents with impaired Strength/Tone, Edema, Cognitive/Perceptual, Pain, Balance, Coordination, Functional Mobility and Activity Tolerance, affecting their ability to complete ADLs/IADLs safely without assistance from caregivers. Patient requires mod vcs for command following and processing. Pt also requires monitoring of vital signs due to fluctuations with activity and instructions/ education regarding safe activity dosing. Pt wishes to return home but needs exceed resources available at this time. Pt requires skilled therapy to address current functional limitations, identify coping skills to progress through current impairments as well as to increase independence with ADLs within safe limits. Patient would benefit from additional skilled OT while admitted upon discharge to maximize safety and independence with ADL/IADL routines and assist in safe transition to home environment. Patient Disposition at Start of Session: OOB in Chair Patient Disposition at End of Session: OOB in Chair Tolerance Limited By Fatigue;Pain Occupational Therapy Problem List: Cognitive Deficit;Edema;Pain;Safety Deficits;Impaired Self Care;Decreased Activity Tolerance;Decreased Strength;Functional Mobility Impairment;Balance Impaired;Impaired Fine Motor Skills Patient /Caregiver Goals: Care For Self Goals for Plan of Care: Able to perform HEP with: Modified Independent Feeding with: Modified Independent Grooming with: Modified Independent Upper Body Bathing with: Stand By Assistance Upper Body Dressing with: Stand By Assistance Lower Body Bathing with: Minimal Assistance Lower Body Dressing with: Minimal Assistance Toilet Hygiene with: Minimal Assistance Chair Transfer with: Minimal Assistance Toilet Transfer with: Minimal Assistance Tolerate (minutes of functional activity): 45 Functional Activity with: Stand By Assistance Demonstrate Positive Coping Strategies with: Modified Independent Demonstrate Competence With Education with: Modified Independent Progress Toward Goals: Progressing as expected Rehab Potential: Good PLAN: Treatment Frequency (times per week): 2 Current admission Treatment Interventions: Education;Self Care / Home Management;Energy Conservation Training;Strengthening;Functional Mobility Training;Balance Training;Neuromuscular Re-education;Pain Management;Edema Management;Cognitive Training Plan of Care developed with: Patient TREATMENT INTERVENTIONS: Therapy Diagnosis: Reduced mobility-other;Decreased activities of daily living (ADL);Muscle Weakness (generalized) Interventions Provided: Re-evaluation;Cognitive Training (93799 or G0515);Self Assisted Management (33478) $ Reevaluation (62857) Billed Units: 1 unit Self Assisted Management (39629) Treatment Minutes: 23 2 units Skilled Intervention(s): Provided skilled intervention and time for positioning in chair after session for safety, comfort, and pressure relief: call light in reach, cushion on seat. 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 Skilled monitoring of vital signs and symptoms continuously throughout session to ensure hemodynamic stability and physiological responses to activity with progression of session. Provided continuous verbal/tactile cues for activity pacing and initiation of therapeutic rest breaks to recover from exertion Provided intervention for vital sign monitoring to assess hemodynamic and respiratory response to activity to prescribe safe intensity and duration of activity/exercise during session Educated patient and caregiver on OT role, rehab POC, d/c recommendation, benefits of participation, safety Instruction in therapeutic exercise BUE AROM in seated position. (shoulder flexion, elbow flex/extension, wrist flexion/extension, MP/IP flexion/extension) Verbal and tactile cuing provided for technique, proper postioning and slow controlled movements. Provided visual cues/demonstration mirror image. Provided encouragement for and educated on respiratory benefits of upright position and facilitation of thoracic extension and lower abdominal activation during seated tasking. Instructed and demonstrated pursed breathing techniques during ther-ex with visual /verbal cues and feedback to apply during session. Issued handout for independent completion of HEP program with recommendation for completion 3x/daily. Instruction and demonstration on pursed lip breathing technique throughout session and benefits of utilizing technique. Handout provided. Instructed and educated on energy conservation technique and activity modifications. Issued handouts for energy conservation and work simplification principles, during dressing/bathing/grooming, and with cooking/housekeeping tasks. Cognitive Training (G0515) Treatment Minutes (2018 Only): 15 $ Cognitive Training (G0515) Billed Units (2018 Only): 1 unit Skilled Intervention(s): Facilitation of therapeutic use of self, active listening, and therapeutic touch throughout session to promote and increase rapport, increase feelings of control by providing choices, provide reassurance, positive reinforcement and encouragement to increase participation/motivation in OT session. Facilitation of rest breaks between steps of mobility to decrease anxiety during session Facilitation of positive reinforcement and optimism regarding positive gains during session and promoting positive outlook during admission despite complicated medical barriers Facilitation of maintaining attention to task(s) during session, mod cues required to gather attention and mod cues required to maintain it, able to maintain attention for 75% of task. - Identified pt goals and stressors, educated on positive coping strategies. Therapeutic use of self and reflective listening to reduce pt anxiety. Educated patient on strategies to prevent delirium including environmental modifications, sleep/wake cycle, participation in functional tasking, and engagement with family and caregivers Facilitation of environmental modifications including; bed positioning, opening blinds, turning on lights, television moved in view, and increase of access to bedside table, in order to promote increased awareness and engagement within environment to optimize participation with tasks and ADLs throughout daily activities. Total Timed Code Treatment Minutes: 38 Total Treatment Time (minutes): 40 FUNCTIONAL G CODE: OT 6 Clicks Score: 13 (05/06/18 1126) Self Care Current Status (G8987): CK (04/28/18829) Self Care Goal Status (G8988): CK (04/28/18829) Based on clinical assessment and the score on the 6 Clicks Functional Assessment Tool, the G code and corresponding severity modifiers are documented above. SUBJECTIVE: Current Hospital Course: Chart reviewed; 04/15/18: EGD showed 5cm esophageal laceration without active bleeding. 04/16/18: Right chest tube placed for effusion. 04/22/18: Extubated. 04/26/18: EGD: partial mucosal tear in mid esophagus. 04/27/18: Eesophagram showed persistent leak. 04/29/18: EGD 04/29: Esophageal stent successfully placed in Q3. Acute pulmonary insufficiency following non-thoracic surgery requiring intubation. Respiratory status improved with placement of CT to sxn. See Epic note for more details. Per discussion between Dr Jerry and Dr Soto the patient's care will be transitioned to Thoracic Surgery care, thoracic Surgery being primary team. Transferred to CVICU from SICU. 04/30-->TIPS Reason for Occupational Therapy Consult: Re Eval post surgery Relevant Past Medical History: CKD. DM. COPD. ETOH. Cirrhosis. HTN. 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 Entry To Home: Stairs Number Of Stairs Into Home: 3 Number Of Stairs To Bed/Bath: 0 Equipment Owned: Cane;Wheeled Walker Prior Functional Level: Within Functional Limits OBJECTIVE: Cognition/Communication Deficits Orientation Deficits: Not oriented to Time Responsiveness: Alert;Awake Follows Commands: 2-step Commands;1-step Commands;Cueing Needed Cueing to Follow Commands: Minimum Attention Deficits: Distractible Memory Deficits: Short Term Executive Function Deficits: Insight to Deficits;Safety Awareness;Judgement Judgement Deficit: Moderate impairment Insight to Deficits: Moderate impairment Safety Awareness Deficit: Moderate impairment Cognitive Clinical Tests and Screens: Mini Cog Clock Draw Test: 0-Abnormal Word Recall: 2-recalled words Mini Cog Score: 2 CURRENT FUNCTIONAL STATUS: Current Activities of Daily Living Assist Level Feeding Minimal Assistance Grooming Minimal Assistance Bathing Upper Body Minimal Assistance Bathing Lower Body Maximal Assistance Dressing Upper Body Moderate Assistance Dressing Lower Body Maximal Assistance Toileting Total Assistance (mcclain) Instrumental Activities of Daily Living Assist Level Meal/Beverage Prep Light Cleaning Laundry Medication Management with Strategies Functional Mobility Assist Level Rolling Moderate Assistance Supine to Sit Sit to Supine Scooting Sit to Stand Stand to Sit Maximal Assistance Bed to Chair Total Assistance Toilet/Commode Functional Mobility Activity Tolerance: Sitting Activity Sitting Activity: ADLs/HEP Sitting Activity Tolerance (in minutes): 15 Please see discipline specific clinical documentation flowsheet for complete details for this therapy evaluation/treatment. SIGNATURE: Lenny Salas OT/L PATIENT NAME: Lazaro Villafana DATE: May 06, 2018 TIME: 12:57 PM NUTRITION Observed: 05/06/2018 Status: COMPLETED Source: [place] 12:54 PM [facility] REPOSITORY HNO ID: [id number] Author: Sari Weston Service: NST-Nutrition Support Team Author Type: Registered Dietitian Type: Nutrition Filed: 05/06/2018 1:34 PM Note Text: NUTRITION SUPPORT TEAM PROGRESS NOTE SERVICE DATE: 05/06/2018 SERVICE TIME: 1040 RECOMMENDED DIAGNOSIS: NO MALNUTRITION IDENTIFIED per Registered Dietitian on 04/28 NUTRITION CARE PLAN Intervention: 1. ?Continue TPN ?- PN to provide 120gms 15% AA, 1700 dextrose calories, 2000ml?at 83ml/hr ?- orders pended with d/c NaPhos, reduce KPhos, incr K+ acetate, ?MVI, MTE, 100u insulin (1:3?ratio), 100mg thiamine 2. ?250ml IVPB lipids 20% fat emulsion MWF started 04/27; d/c'd 05/02 with pt on propofol; restart 05/06 ? Monitor and Evaluation: Goal: Meet >75% of estimated needs Monitor fluid/electrolyte balance Monitor labs, I/Os, vital signs, weight ? Discharge Nutrition Recommendations:? To be determined ? 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 Patient initially presented with hematemesis and melena with accompanying dizziness and shortness of breath. Transferred to F SICU on 04/14 for further management. s/p EGD 04/15?which showed a deep esophageal tear. ?Plan for a minimum of NPO x 2 weeks. ?04/16 Right chest tube placed for effusion. ?Esophagram (04/27/18): Persistent right mid-esophageal perforation; GI c/s and plan for esophageal stent placement tomorrow. ?s/p EGD 04/29: Esophageal stent successfully placed in Q3. Acute pulmonary insufficiency following non-thoracic surgery requiring intubation. Respiratory status improved with placement of CT to sxn. s/p TIPS 04/30. ? Interval History: TPN continues. Pt is afebrile with Tmax: 36.9 Resp: nasal cannula I/O's: Intake/Output Summary (Last 24 hours) at 05/06/18 1306 Last data filed at 05/06/18 1230 Gross per 24 hour Intake 8814 ml Output 4920 ml Net 3894 ml overall 6671.3 Abdomen: not assessed Last BM: ?05/06 Enteral access: ?n/a; NG d/c'd today Parenteral access: ?left IJ TLC placed 04/27 Labs: hypernatremia, hyperchloremia, hyperglycemia, hyperphosphatemia, leukocytosis, lactate 1.3, ionized calcium 1.19 Blood Gases: pH 7.47, pCO2 34, HCO3 24 Whole Blood glucose: 182, 157, 111, 119, 108, 216 Cultures: C-Diff in process Imaging: n/a Nutritional Intake: Intake History BI DATA ARCHITECT: Unable to determine Current intake: 04/17: ?Average 5 day intakes meeting <50% of estimated energy need.s started on PN 04/17 due to esophageal tear, plan for NPO x 2 weeks 04/18: currently goal kcals, PN 940 kcals, 110 g pro + propofol 765 kcals/day 12: ?TPN [facility] orders 04/17 - 04/19 to provide 110gms protein and 940 claories + additional calories from propofol (04/19 provided 626 calories) 04/21 - 04/22: ?PN with orders 04/20 - 04/21?to provide 100gms protein and 1000 calories + additional calories from propofol 04/25: ?PN with orders 04/22 - 04/24 to provide 110gms protein and 1040 calories 04/26 - 04/27: ?PN with orders 04/25 - 04/26?to provide 120gms protein and 1600 calories 04/28: ?PN with orders 04/27 to provide 120 gms protein and 1650 calories 04/29?- 05/02:?PN with orders 04/28 - 05/01?to provides 120 g protein and 1650 kcals + additonal calories from propofol; propofol restarted 05/03: ?TPN?- providing 1460 calories, 120 grams protein 05/04: ?TPN with orders 05/02 - 05/03 120gms protein and 1460 calories 05/05: TPN with orders 05/04 120gms protein and 1650 calories ? 250ml IVPB lipids 20% fat emulsion MWF started 04/27; d/c today - 05/02 with pt on propofol; restart 05/06 Current Diet Order DIET NPO Lines and Drains: Central Line Triple Lumen 04/27/18 Non-tunneled Left Neck (Active) Peripheral 05/04/18 1815 Short Left Forearm 20 Gauge (Active) Indwelling Urinary Catheter 04/29/18 2030 Mcclain 18 Fr (Active) Chest Tube 05/01/18 1218 Right Pleural Tube #1 (Active) Chest Tube 05/01/18 1219 Right Pleural 28 Fr Tube #2 (Active) Chest Tube 05/01/18 1219 Right Pleural Tube #3 (Active) Height: 177.8 cm (5' 10) Admission Weight: 106.1 kg (233 lb 14.5 oz) Current Weight: 116.7 kg (257 lb 4.4 oz) Body mass index is 36.92 kg/m?. Usual body weight ?Unable to determine? No weight history available. ? Estimated nutrition goals: [place] body weight: 75.4 kg Dosing weight: 106?kg (04/14; BMI 33.5kg/m2)?? Calorie needs 2859-0561?kilocalories determined by = 15-20?kcals/kg ?Dosing?weight? Protein needs: 90 - 121?grams determined by 1.2 -1.6g/kg ideal?weight?- due to CKD Temp (24hrs), Av.3 ?C (97.4 ?F), Min:35.7 ?C (96.3 ?F), Max:36.9 ?C (98.4 ?F) Recent Labs 05/06/18 0012 GLUC 180* BUN 64* CREAT 0.85 NA 146* K 4.0 CHLOR 110* CO2 22 ALB 2.3* P 5.2* HB 10.5* HCT 32.8* WBC 15.50* MG 2.1 Surgical Incision 05/01/18 Thoracotomy - Right (Active) Dressing Status None: Open to Air 05/06/2018 7:30 AM Frequency of Dressing Change As Needed 05/05/2018 7:00 PM Dressing Change Due 05/04/18 05/03/2018 7:30 AM Dressing /Treatment Type Dry Sterile Dressing 05/03/2018 7:30 AM Incision Closures Intact 05/06/2018 7:30 AM Drainage Description None 05/06/2018 7:30 AM Drainage Amount None 05/06/2018 7:30 AM Edges Intact 05/06/2018 7:30 AM Hematoma No 05/06/2018 7:30 AM Number of days: 5 Vitamin and Mineral Labs in the past year:No results for input(s): CHROMIUM, COPPER, MANGANESE, SELENIUM, VITAMINA, VITB1, VITB2, VITB6, B12, METHYLMAL, VITD25, VITAMINE, VITAK, ZINC, TIBC, FE, JOHANNY in the last 8784 hours. MNT Billing Type: Re-assess/15 min 2 units SIGNATURE: Sari Weston RD [facility] PATIENT NAME: Lazaro Villafana DATE: May 06, 2018 TIME: 1:03 PM PAGER: [phone] C DIFFICILE PCR Collected: 05/06/2018 Status: F Source: [place] 11:13 AM [facility] REPOSITORY TYPE CODE TESTS RESULT OUT OF REFERENCE UNITS RANGE LAB CDFRES C difficile PCR Negative for C. difficile toxin by PCR Performed By: #### CDPCR #### [facility] [address] [place], [place] [address] GASA + ALL Collected: 05/06/2018 Status: F Source: [place] FOR 9:02 AM [facility] RADIANCE USE ONLY REPOSITORY TYPE CODE TESTS RESULT OUT OF REFERENCE UNITS RANGE LAB PH 7.35-7.45 pH 7.41 LAB PCO2 34-46 mm Hg pCO2 37 LAB PO2 85-95 mm Hg pO2 High 139 LAB BE mmol/L Base Excess NEG 1 LAB HCO3 22-26 mmol/L Bicarbonate 23 LAB CO2CT 22.0-28.0 mmol/L CO2 Content 24 LAB O2HB 95-98 % Oxyhemoglobin, Art. 97 LAB COHB 0-5.0 % Carboxyhemoglobin,A 0.6 rt LAB MHGB 0.4-1.5 % Methemoglobin 1.0 LAB TEMP C Temperature, Body 37.0 LAB PHTC 7.35-7.45 pH, Temp Corrected 7.41 LAB PCO2T 34-46 mm Hg pCO2, Temp Correct 37 LAB PO2T mm Hg pO2, Temp Corrected 139 LAB NAB 135-146 mmol/L Sodium,Whole Bld 145 LAB KWB 3.5-5.0 mmol/L Potassium, Whole Bld 4.2 LAB HGBB 13.0-17.0 g/dL Low Hemoglobin,Total,AC 11.7 L LAB HCTB 39.0-51.0 % Hematocrit, ACL Low 36 LAB IC 1.08-1.30 mmol/L Calcium, Ion, WB 1.22 LAB GLB 60-105 mg/dL Glucose,Whole Bld High 108 LAB LACT 0.5-2.2 mmol/L Lactate 2.0 Performed By: #### ALLBG #### [facility] [address] [place], [place] [address] THERAPY NT Observed: 05/06/2018 Status: COMPLETED Source: [place] 8:53 AM [facility] REPOSITORY HNO ID: [id number] Author: Kevin (Pt) Marvin Service: Physical Therapy Author Type: Physical Therapist Type: Therapy (PT/OT/Speech/Resp) Filed: 05/06/2018 8:58 AM Note Text: Physical Therapy Treatment SERVICE DATE: 05/06/2018 SERVICE TIME: 804 to 847 ROOM: [place] [address] ([facility] ([facility] Vasc/Ultrasound)) Recommended Discharge Disposition: Unable to determine due to critical care status Recommended Discharge Disposition Comments: will need to see how patient progresses once on RNF. He may need a brief SNF stay Anticipated Discharge Needs: Undetermined PT Recommendations to Nursing: Passive lift to/from chair;Utilize bed in chair position PT 6 Clicks Score: 10 Precautions/Activity Restrictions: Lines/Tubes/Drains;Fall Risk Precaution/Activity Restriction Comments: R chest tube ASSESSMENT : Patient seen for reevaluation and mobility training after several days in bed after surgery. Patient presents with ability to follow commands, move all extremities but generalized weakness, pain, decreased activity tolerance and impaired functional mobility . Requires skilled PT for education, exercise prescription and mobility progression. Patient Disposition at Start of Session: Supine in Bed Patient Disposition at End of Session: OOB in Chair;Call Raphael in Reach Tolerance Limited By Fatigue Physical Therapy Problem List: Education Deficit;Pain;Safety Deficits;Decreased Activity Tolerance;Decreased Strength;Functional Mobility Impairment;Balance Impaired Patient /Caregiver Goals: Go Home Goals for Plan of Care: Able to perform HEP with: Independent Rolling with: Stand By Assistance Transfer supine to/from sit with: Stand By Assistance Transfer sit to/from stand with: Stand By Assistance Ambulate with: Stand By Assistance Distance: 100ft Device: Wheeled Walker Ambulate up and down steps with: Contact Guard Assistance Number of steps: 3 Device: Rail Transfer: Transfer bed to chair SBA with walker Progress Toward Goals: Progressing as expected Rehab Potential: Good PLAN: Treatment Frequency (times per week): 3 Current admission Treatment Interventions: Education;Strengthening;Functional Mobility Training;Balance Training Plan of Care developed with: Patient TREATMENT INTERVENTIONS: Therapy Diagnosis: Reduced mobility-other Interventions Provided: Re-evaluation;Therapeutic Activity (18137) $ Reevaluation (53091) Billed Units: 1 unit Therapeutic Activity (54784) Treatment Minutes: 20 1 unit Skilled Intervention(s): Educated patient on the role of PT, exercise and mobility on his recovery. Instructed and assisted patient with supine UE and LE AAROM as warm up to mobility and to ascertain response to activity. Ensured safe management of lines and tubes throughout mobility session. Instructed and assisted patient with bed mobility to achieve upright sitting on edge of bed. Patient dizzy and fatigued initially so partially returned to supine. Assisted patient again to achieve upright sitting. Guarded patient in static sitting on edge of bed for several minutes to acclimate to upright posture. Instructed and assisted patient with stand pivot transfer bed to chair- max assistance, 2 people required, verbal cues for breathing and upright gaze. -Skilled intervention for ICU line/room setup for safe mobility environment -Skilled intervention for vital sign monitoring to assess hemodynamic and respiratory response to activity to prescribe safe intensity and duration of activity/exercise during above interventions -Skilled intervention and time for positioning in chair after session for safety, comfort: call light, positioned for comfort, RN aware Total Timed Code Treatment Minutes: 20 Total Treatment Time (minutes): 43 FUNCTIONAL G CODE: PT 6 Clicks Score: 10 (05/06/18 0805) Mobility: Walking and Moving Around Current Status (G8978): CM (04/25/18 1145) Mobility: Walking and Moving Around Goal Status (G8979): CL (04/25/18 1145) Based on clinical assessment and the score on the 6 Clicks Functional Assessment Tool, the G code and corresponding severity modifiers are documented above. SUBJECTIVE: Current Hospital Course: Chart reviewed; Lazaro Villafana is a 52 year old male with alcohol use disorder with recent diagnosis of cirrhosis w/ esophageal varices who presents on transfer from OSH with hematemesis s/p EGD at OSH c/b esophageal laceration; MELD >?20. R-sided chest tube for hydropneumothorax. Admitted to [facility] SICU 04/14/18. 04/15/18: EGD showed 5cm esophageal laceration without active bleeding. 04/16/18: Right chest tube placed for effusion. 04/22/18: Extubated. 04/26/18: EGD: partial mucosal tear in mid esophagus. 04/27/18: Eesophagram showed persistent leak. 04/29/18: EGD 04/29: Esophageal stent successfully placed in Q3. Acute pulmonary insufficiency following non-thoracic surgery requiring intubation. Respiratory status improved with placement of CT to sxn. See Epic note for more details. Per discussion between Dr Jerry and Dr Soto the patient's care will be transitioned to Thoracic Surgery care, thoracic Surgery being primary team. Transferred to CVICU from SICU. 04/30-->TIPS Reason for Physical Therapy Consult : Critical care therapy Relevant Past Medical History: CKD. DM. COPD. ETOH. Cirrhosis. HTN. Patient Report: c/o generalized pain. 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 Entry To Home: Stairs Number Of Stairs Into Home: 3 Number Of Stairs To Bed/Bath: 0 Equipment Owned: Cane;Wheeled Walker Prior Functional Level: Within Functional Limits OBJECTIVE: Mini Cog Score: 2 (04/28/18 9430) CURRENT FUNCTIONAL STATUS: Current Functional Mobility Assist Level Additional Information Rolling Moderate Assistance Supine to Sit Moderate Assistance Sit to Supine ( ) Scooting Moderate Assistance Sit to Stand Maximal Assistance Stand to Sit Maximal Assistance Bed to Chair Maximal Assistance Bed To Chair Transfer Type: Stand Pivot Bed To Chair Transfer Equipment: (2 person assist) Toilet/Commode Gait Stairs Curb Step Car Transfer JH-M: 4: Move to chair / commode Please see discipline specific clinical documentation flowsheet for complete details for this therapy evaluation/treatment. SIGNATURE: Kevin Jeris, PT PATIENT NAME: Lazaro Villafana DATE: May 06, 2018 TIME: 8:53 AM PROGRESS Observed: 05/06/2018 Status: COMPLETED Source: [place] 8:[address] [facility] [place] REPOSITORY HNO ID: [id number] Author: Steven Sanchez Service: Critical Care Author Type: Anesthesiologist Type: Progress Notes Filed: 05/06/2018 8:46 AM Note Text: CVICU PROGRESS NOTE Admission Date: 04/14/2018 Hospital Day: # 22 5 Days Post-Op SUBJECTIVE: Interval Events: Hi flow nasal cannula weaned. Pain control difficult overnight. Patient Active Hospital Problem List: Esophageal perforation (04/14/2018) Hydropneumothorax (04/29/2018) History of hypertension (04/29/2018) Type II diabetes mellitus (HCC) (04/29/2018) Hyperglycemia (04/14/2018) Alcoholic cirrhosis (HCC) (04/14/2018) COPD (chronic obstructive pulmonary disease) (HCC) (04/14/2018) Acute post-operative pain (04/20/2018) Tobacco abuse (04/20/2018) Mediastinitis (04/20/2018) Severe protein-calorie malnutrition (HCC) (04/22/2018) Delirium due to general medical condition (04/26/2018) CKD (chronic kidney disease) (04/29/2018) Portal hypertension (HCC) (04/14/2018) Volume overload (05/03/2018) S/P TIPS (transjugular intrahepatic portosystemic shunt) (05/03/2018) Postoperative hypertension (05/06/2018) ASSESSMENT/PLAN: Continue nothing by mouth and TPN. Continue diuresis and had D5W infusion for control of serum sodium. Schedule aerosols including inhaled steroid and at percussion therapy. Continue insulin infusion for glycemic control. Schedule metoprolol, increase hydralazine dose, continue enalapril IV, and add Catapres patch. COORDINATION OF CARE NOTE: Important/Relevant PMH/PSH: Alcohol use disorder with recent diagnosis of cirrhosis w/ esophageal varices, type II DM, poorly controlled HTN, CKD, COPD, tobacco smoker 2-3 PPD. Hospital Course: HPI: Lazaro Villafana is a 52 year old male with alcohol use disorder with recent diagnosis of cirrhosis w/ esophageal varices who presents on transfer from OSH with hematemesis s/p EGD at OSH c/b esophageal laceration; MELD >?20. R-sided chest tube for hydropneumothorax. Admitted to [facility] SICU 04/14/18. 04/15/18: EGD showed 5cm esophageal laceration without active bleeding. 04/16/18: Right chest tube placed for effusion. 04/22/18: Extubated. 04/26/18: EGD: partial mucosal tear in mid esophagus. 04/27/18: Eesophagram showed persistent leak. 04/29/18: EGD 04/29: Esophageal stent successfully placed in Q3. Acute pulmonary insufficiency following non-thoracic surgery requiring intubation. Respiratory status improved with placement of CT to sxn. See Epic note for more details. Per discussion between Dr Jerry and Dr Soto the patient's care will be transitioned to Thoracic Surgery care, thoracic Surgery being primary team. Transferred to CVICU from SICU. 04/30-->TIPS A/P of Major Active Problems (excluding routine care and common problems): CV: SR. hypertensive. Resp: Extubated on high flow nasal cannula GI: Strict NPO, TPN. Cirrhosis. Follow INR. Esoph stent to be removed in 4 weeks. Renal: Cr normal. Hypervolemic-continue diuretics. At D5W infusion to control serum sodium. Endo: Insulin infusion for glucose control ID: Hospital course c/b mediastinitis with fevers an purulent chest tube output on vancomycin/aztreonam/flagyl/diflucan. ID following. Epistaxis: ENT following-->Nasal packing with Surgicel fibrillar removed by patient Neuro: Intermittently agitated. Continue olanzapine at bedtime. Dexmedetomidine as needed, and has been effective. Lines: L IJ triple lumen (04/27/18). To Do or to Watch: Daily TPN Hypervolemia Hypertension OBJECTIVE: Vital Signs: Temp Min: 35.7 ?C (96.3 ?F) Max: 39 ?C (102.2 ?F) Temp (24hrs), Av.5 ?C (97.7 ?F), Min:35.7 ?C (96.3 ?F), Max:37.1 ?C (98.8 ?F) Vitals: 05/06/18 0710 05/06/18 0728 05/06/18 0730 05/06/18 0750 Pulse: 77 78 75 81 BP: MAP Non Invasive (Mean Arterial Pressure): Arterial BP 1: 149/66 165/71 151/71 MAP Invasive (Mean Arterial Pressure) 1: 91 97 99 98 Resp: SpO2: 97% 96% 96% 96% Additional Cardiac Parameters 05/06/18 0710 05/06/18 0728 05/06/18 0730 05/06/18 0750 CVP: 13 15 14 14 Fluid Balance: Date 05/05/18 0700 - 05/06/18 0659 05/06/18 07 - 05/07/18 0659 Shift 9571-2072 0429-4984 8248-3828 24 Hour Total 6764-8882 5290-8668 8041-7013 24 Hour Total I N T A K E IV 3570 2056 5626 IVPB 2030 1433 3463 Vancomycin IV 200 200 Regular Insulin IV 184 89 273 Nitroglycerine Volume 167 699 4109 Flagyl IV 100 100 Aztreonam (Azactam) IV 200 200 Cefepime IVPB 200 200 TPN/PPN 568 909 3248 TPN 671 574 4137 Irrigants 90 90 Irrigant/Flush Amount In (GI Feed/Drain 05/01/18 Assessment Nasogastric Right Naris 14 Fr) 90 90 Shift Total 4646 2858 7504 O U T P U T Urine 2230 1060 1660 4950 120 120 Output ( Indwelling Urinary Catheter 04/29/182029 Mcclain 18 Fr) 2230 1060 1660 4950 120 120 Tubes 50 50 Output (GI Feed/Drain 05/01/18 Assessment Nasogastric Right Naris 14 Fr) 50 50 Chest Tube 80 60 0 140 10 10 Chest Tube Output (Chest Tube 05/01/18 1218 Right Pleural Tube #1) 40 20 0 60 0 0 Chest Tube Output (Chest Tube 05/01/18 1219 Right Pleural 28 Fr Tube #2) 30 20 0 50 10 10 Chest Tube Output (Chest Tube 05/01/18 1219 Right Pleural Tube #3) 10 20 0 30 0 0 # of BMs Number of BMs 1 x 1 x 2 x Shift Total 2310 1170 1660 5140 130 130 Weight (kg) 116.7 116.7 116.7 116.7 116.7 116.7 116.7 116.7 Last Weight: 116.7 kg (257 lb 4.4 oz) (05/05/18 0300) Admit Weight: 106.1 kg (233 lb 14.5 oz) (04/16/18 0000) DIET NPO Parenteral Nutrition - Adult Lines, Drains, and Airways Line Central Line Triple Lumen 04/27/18 Non-tunneled Left Neck 9 days Arterial Line 04/29/182009 Arterial Line Left Radial 6 days Peripheral 05/04/18 1815 Short Left Forearm 20 Gauge 1 day Drain Indwelling Urinary Catheter 04/29/182029 Mcclain 18 Fr 6 days GI Feed/Drain 05/01/18 Assessment Nasogastric Right Naris 14 Fr 5 days Chest Tube 05/01/18 1218 Right Pleural Tube #1 4 days Chest Tube 05/01/18 1219 Right Pleural Tube #3 4 days Chest Tube 05/01/18 1219 Right Pleural 28 Fr Tube #2 4 days Vent/Oxygen: O2 Therapy: Hi-Flow (05/06/18 0730) Liters: 6 (05/06/18 0730) %FIO2: 40 (05/06/18 0458) %FIO2 Min: 40 Max: 40 Pulmonary Therapy: Bronchodilators and Percussion vest VENTILATOR INFORMATION: Settings: Invasive Ventilator Mode: Continuous Positive Airway Pressure;Pressure Support Ventilation (05/04/18 0707) %FIO2: 40 Set Ventilator Respiratory Rate (BPM): (S) 18 PEEP/CPAP (cm H2O): (S) 5 Inspiratory Pressure Set (cm H2O): (S) 8 Patient Data: Inspiratory:Expiratory Ratio: 1:2 Peak Inspiratory Pressure (cm H2O): 14 Plateau Pressure (cm H2O): 21 Weaning Data: Spontaneous Respiratory Rate (BPM): 22 Physical Examination Performed: Cardiovascular: Normal sinus rhythm with variable rate Respiratory: Unlabored, no distress Extremities: Edema of all extremities, all warm and well-perfused Neurologic: Alert and oriented ?3, moves all extremities, conversant, follows commands Diagnostic tests reviewed today: CXR: Right effusion Recent Labs 05/06/18 0601 05/06/18 0415 05/06/18 0212 05/06/18 0011 05/05/18 2211 PH 7.43 7.46* 7.48* 7.48* 7.48* PCO2 37 35 32* 31* 32* PO2 139* 127* 120* 117* 99* HCO3 24 25 23 23 23 BE 0 1 1 0 1 Recent Labs 05/06/18 0012 05/05/18 0004 05/04/18 0005 MCV 91.1 89.9 91.0 MCH 29.2 29.2 29.6 MPV 10.4 11.4 11.7 Recent Labs 05/06/18 0012 05/05/18 0004 05/04/18 0005 05/03/18 0054 05/02/18 0248 04/28/18 0106 04/20/18 1338 04/14/18 1700 04/14/18 1415 WBC 15.50* 8.05 6.97 13.83* 7.56 < > 7.63 < > 10.03 < > 20.86* 21.54* RBC 3.60* 3.08* 3.45* 3.54* 3.41* < > 2.77* < > 2.66* < > 2.73* 2.67* HB 10.5* 9.0* 10.2* 10.5* 9.8* < > 7.8* < > 7.9* < > 8.0* 8.1* HCT 32.8* 27.7* 31.4* 31.9* 29.8* < > 25.5* < > 24.2* < > 25.0* 25.3* PLT 289 149* 125* 166 124* < > 145* < > 66* < > 102* 120* MCV 91.1 89.9 91.0 90.1 87.4 < > 92.1 < > 91.0 < > 91.6 94.8 MCH 29.2 29.2 29.6 29.7 28.7 < > 28.2 < > 29.7 < > 29.3 30.3 MPV 10.4 11.4 11.7 11.5 11.1 < > 11.1 < > 11.1 < > 12.2* 12.2* RDW -- -- -- -- -- -- -- -- -- -- 15.3* 13.0 ABSNEUT -- 7.12 6.39 -- -- -- 5.58 < > 8.53* < > -- -- ANCSEGBAND -- -- -- -- -- -- -- -- 8.53 -- -- -- NEUTP -- 88.5 91.8 -- -- -- 73.1 < > 85.0 < > -- -- LYMPHP -- 5.2 3.7 -- -- -- 16.9 < > 8.0 < > -- -- MONOP -- 6.2 4.4 -- -- -- 6.6 < > 7.0 < > -- -- EODINP -- 0.0 0.0 -- -- -- 3.0 < > 0.0 < > -- -- < > = values in this interval not displayed. Recent Labs 05/06/18 0012 05/05/18 0004 05/04/18 0005 05/03/18 0054 05/02/18 0248 GLUC 180* 148* 223* 194* 257* NA 146* 145* 141 139 137 K 4.0 3.8 4.5 4.9 4.2 CHLOR 110* 110* 109* 109* 105 CO2 22 24 21* 21* 19* CREAT 0.85 0.83 0.89 0.89 1.03 BUN 64* 59* 51* 43* 42* ANION 14 11 11 9 13 CA 8.2* 7.9* 8.0* 7.9* 7.7* TPROT 6.6 5.8* 6.5 6.2* 6.0* ALB 2.3* 2.0* 2.1* 1.9* 1.9* TBILI 0.8 0.5 0.5 0.5 0.6 ALKPHOS 82 70 85 76 59 AST 99* 89* 160* 161* 73* ALT 72* 62* 83* 56* 31 Recent Labs 05/05/18 0004 05/04/18 0005 05/03/18 1803 05/01/18 1521 05/01/18 1101 05/01/18 0920 APTT 32.2 30.0 29.3 29.9 33.8* 32.5* INR 1.5* 1.4* 1.4* 1.3 1.5* 1.4* FIBCT -- -- -- 478* 432* 483* VAP Prevention: Chlorhexidine Mouth Care: Not Applicable Stress Ulcer Prophylaxis PPI or H2 antagonist: Yes VTE Prophylaxis: Active VTE Risk Category Order: 04/14/18 2100 VTE RISK CATEGORY: SURGICAL MODERATE RISK ([place] Active VTE Medication Orders: 05/02/18 0800 HEPARIN 5,000 UNITS INJECTION Active VTE Prophylaxis Orders: 05/05/18 0800 ACTIVITY - MOBILIZE [place]IENT ([place]) 04/28/18 0845 GRADUATED COMPRESSION STOCKINGS ([place] 04/14/18 2100 PNEUMATIC COMPRESSION STOCKINGS ([place], [place]) Anticoagulant AND Antiplatelet Medications Start Dose Route Frequency Ordered Stop 05/02/18 0800 heparin 5,000 Units injection 5,000 Units SUBCUTANEOUS EVERY 12 HOURS 05/02/18 0756 -- I personally reviewed and updated the patient's history and course in the note as well as the assessment AND plan. I discussed the management plan with the RN and RT. SIGNATURE: Steven Sanchez MD, MMM PT NAME: Lazaro Villafana DATE: May 06, 2018 CONSULT PROG Observed: 05/06/2018 Status: COMPLETED Source: [place] 6:46 AM [facility] [facility] REPOSITORY O ID: [id number] Author: Leena Li Service: Infectious Disease Author Type: Physician Type: Consult Progress Note Filed: 05/06/2018 1:27 PM Note Text: INFECTIOUS DISEASES PROGRESS NOTE Patient Name: Lazaro Villafana Account #: Data Unavailable Admission Date: 04/14/2018 Date of Evaluation: 05/06/2018 Time of Evaluation: 10:20 AM INTERVAL HPI: Afebrile for > 24 hours, uptrending leukocytosis. Liquid BMs documented. Patient reports overall feeling better over last two days but still with some cramping diffuse abdominal pain and back pain. S/p VATS decortication 05/01/18 with cultures negative. On TPN. Broad-spectrum antibiotics continued. Steroids started 05/03/18. Extubated 05/04/18. Getting OOB to chair. Metronidazole 04/15 Fluconazole 04/15 Vancomycin 04/20 Aztreonam 04/22 MEDICATIONS: Current hospital medications: HYDROmorphone 0.5 mg injection (DILAUDID) 0.5 mg INTRAVENOUS ONCE HYDROmorphone 0.5 mg injection (DILAUDID) 0.5 mg INTRAVENOUS q 4 H PRN potassium chloride iv piggyback 10 mEq/100mL 10 mEq INTRAVENOUS PRN potassium chloride iv piggyback 20 mEq/50 mL 20 mEq INTRAVENOUS PRN potassium chloride 40-120 mEq oral powder (KLOR-CON) 40-120 mEq ORAL/FEEDING TUBE PRN furosemide 40 mg injection (LASIX) 40 mg INTRAVENOUS q 6 H hydrALAZINE 10 mg injection (APRESOLINE) 10 mg INTRAVENOUS q 6 H Parenteral Nutrition - Adult INTRAVENOUS ONCE TPN (2200 START) nitroglycerin 50 mg in D5W 250 mL 5-200 mcg/min INTRAVENOUS CONTINUOUS metoprolol 10 mg injection (LOPRESSOR) 10 mg INTRAVENOUS q 4 H PRN OLANZapine orally disintegrating 10 mg tab(s) (ZyPREXA ZYDIS) 10 mg ORAL q 12 H enalaprilat 1.25 mg injection (VASOTEC IV) 1.25 mg INTRAVENOUS q 6 H Chlorhexidine Gluconate 0.12 % 15 mL (PERIDEX) 15 mL ORAL q 6 H heparin 5,000 Units injection 5,000 Units SUBCUTANEOUS q 12 H insulin regular human iv bolus 2-10 Units 2-10 Units INTRAVENOUS PRN insulin regular 250 units in NaCl 0.9% 250 mL iv infusion - HVI CVICU NOMOGRAM 0.5-40 Units/hr INTRAVENOUS CONTINUOUS dextrose 50 % 12.5 g injection 12.5 g INTRAVENOUS PRN sodium chloride 0.65 % 2 [place] (AYR, OCEAN) 2 [place] EACH NOSTRIL 5X/DAY nasal ointment ([facility]) TOPICAL BID lidocaine 5 % 1 Patch (LIDODERM) 1 Patch TRANSDERMAL DAILY lidocaine patch - REMOVE OTHER AT BEDTIME lidocaine - VERIFY PATCH OTHER q 8 H labetalol 10 mg injection syringe (NORMODYNE) 10 mg INTRAVENOUS q 2 H PRN vancomycin iv piggyback 1 g in D5W 200 mL (VANCOCIN) 1 g INTRAVENOUS q 12 HR aztreonam 2 g in D5W 100 mL MB+ (AZACTAM) 2 g INTRAVENOUS q 6 HR fluconazole 400 mg in NaCl (iso-osmotic) 200 mL (DIFLUCAN) 400 mg INTRAVENOUS DAILY vancomycin dosing and monitoring per pharmacy OTHER As Directed potassium chloride 20-80 mEq CUP 20-80 mEq ORAL/FEEDING TUBE PRN magnesium sulfate in water 2 g in sterile water 50 ml 2 g INTRAVENOUS PRN dextrose 40 % 15 g 15 g ORAL PRN glucagon 1 mg injection (GLUCAGEN) 1 mg INTRAMUSCULAR PRN NaCl 0.9% 3-5 mL 3-5 mL INTRAVENOUS q 12 H metroNIDAZOLE 500 mg PREMIX piggyback (FLAGYL) 500 mg INTRAVENOUS q 8 H ipratropium-albuterol 3 mL nebulizer solution (DUONEB) 3 mL INHALATION q 4 H PRN pantoprazole 40 mg injection (PROTONIX) 40 mg INTRAVENOUS BID AC (0600/1600) PHYSICAL EXAM: BP 166/69 Pulse 90 Temp 36.2 ?C (97.2 ?F) (Oral) Resp 20 Ht 177.8 cm (5' 10) Wt 116.7 kg (257 lb 4.4 oz) SpO2 95% BMI 36.92 kg/m? Lines: Nontunnelled triple lumen / Left neck, L a-line, R nares NGT L nares nasal packing ?SKIN: No lesions noted. EYES: PERRLA NECK: L nontunnelled triple lumen catheter with no overlying erythema, swelling or warmth. LUNGS: clear to auscultation, no wheezes, or crackles. HEART: ?Regular rate/rhythm, normal heart sounds, and no murmurs. ABDOMEN: Soft, epigastric tenderness, hypoactive BS EXTREMITIES: Edema of all four extremities. Three right-sided chest tubes with dark fluid output, mcclain TPN, insulin infusion, nitroglycerin Labs: WBC 15.50, Hgb 10.5, Plt 289, Cr 0.85 Micro and radiology personally reviewed 04/14/18: Quantiferon gold testing negative for TB 04/14/18: Blood cultures 04/19 no growth 04/14/18: MSSA nasal swab positive 04/17/18: MSSA nasal swab positive 04/17/18: Blood cultures 2/2 no growth 04/20/18: Blood cultures 2/2 no growth 04/20/18: Tracheal aspirate cultures no organisms on gram stain and no growth on culture 04/22/18: Fungitell negative 04/23/18: Sputum cultures normal abby 04/24/18: Staphylococcal nasal swab negative 04/27/18: Blood cultures 2/2 no growth 04/30/18: HCV Ab negative 04/30/18: HIV Ag/Ab negative 05/01/18: Staphylococcal nasal swab negative 05/01/18: right pleural tissue gram stain negative, cultures all no growth EGD 04/27/18: Impression: ? - Mucosal tear in the middle third of the esophagus ? healing well. ? - Portal hypertensive gastropathy. ? - Normal examined duodenum. ? - Feeding tube placement was successfully performed. ? Please confirm placement with KUB. ? - No specimens collected. Esophagram 04/27/18: PERSISTENT RIGHT MIDESOPHAGEAL PERFORATION DESCRIBED, CORRELATING WITH PRIOR. CT Chest 04/28/18: IMPRESSION: 1. ?Small to medium-sized right sided hydropneumothorax is stable in size since the prior chest CT dated 04/24/2018 with right thoracostomy tube in stable position. ?Adjacent dependent airspace opacity primarily in the right lower lobe has mildly improved in the interval and most likely represents either atelectasis or pneumonia/aspiration. 2. ?Previously seen bilateral airspace opacities, some of which were ground-glass or centrilobular in distribution have overall improved although have not resolved and may be due to either edema and/or infectious/inflammatory in etiology such as due to aspiration. ?No new airspace opacity has developed in the interval. 3. ?Persistent linear tract of gas extending from the right lateral mid to distal aspect of the esophagus which communicates with the right pleural space, in keeping with the known fistula as seen on the recent esophagram study. ?High attenuation material in the dependent right pleural space is nonspecific and may represent either contrast material from an esophagram study versus blood products. ?Correlate with the chest tube output for the presence of blood. 4. ?Stable mediastinal and right hilar lymphadenopathy, probably reactive. 5. ?Mild ascites in the upper abdomen, unchanged. Us Abd 05/04/18: IMPRESSION: PATENT TIPS. PATENT HEPATIC VASCULATURE WITH APPROPRIATELY DIRECTED FLOW. CIRRHOTIC LIVER MORPHOLOGY WITH SEQUELA OF PORTAL HYPERTENSION. ?NO HEPATIC LESION. SMALL-VOLUME ASCITES. IMPRESSION / PLAN 52 yo M with a h/o cirrhosis, EtoH related, CKD, COPD and reported + PPD in the past. Currently no clinical or imaging evidence of active pulmonary TB. Presenting with hemorrhagic shock secondary to hematemesis/esophageal tear c/b pneumomediastinum; no surgical intervention planned at this time. EGD 04/26/18 with reported improvement in esophageal tear (31-38cm). Esophageal stent placed last week, to be removed in four weeks. S/p TIPS 04/30/18: SUCCESSFUL TRANSJUGULAR JS-SYSTEMIC SHUNT. ?PATIENT WILL REQUIRE HEPATIC VASCULAR/TIPS ULTRASOUND FOR BASELINE VELOCITIES IN 4-5 DAYS. PORTOATIRAL GRADIENT WAS REDUCED FROM 18 MM HG TO 4 MM HG. ? 05/01/2018 Right VATS exploration, Right thoracotomy, Total right pleural decortication, primary repair of esophageal perforation with intercostal muscle flap, bronchoscopy and esophagoscopy. Surgical pathology pending. Plan: - continue vancomycin (goal trough 15-25), aztreonam, metronidazole, fluconazole as ordered for now - HIV Ag/Ab and Hepatitis C Antibody screening: negative - check C diff PCR Will discuss with attending, Perla Delgado PGY4 [facility] STAFF PHYSICIAN NOTE OF PERSONAL INVOLVEMENT IN CARE Events reviewed. Patient examined. Findings as outlined in the fellow's note above. Jang elements verified. ? Relevant lab data, microbiology and imaging data reviewed. Relevant images personally reviewed. ? Agree with assessment and plan as outlined in the fellow's note above. I was physically present for the critical portions of the service provided by the ID team. The management plan reflects my input. ?Dr Emerson will cover this weekend, please call with questions Marguerite Li MD Staff, Department of Infectious Disease Pager: [phone] May 06, 2018 1:26 PM GASA + ALL Collected: 05/06/2018 Status: F Source: [place] FOR 6:01 AM [facility] USE ONLY REPOSITORY TYPE CODE TESTS RESULT OUT OF REFERENCE UNITS RANGE LAB PH 7.35-7.45 pH 7.43 LAB PCO2 34-46 mm Hg pCO2 37 LAB PO2 85-95 mm Hg pO2 High 139 LAB BE mmol/L Base Excess 0 LAB HCO3 22-26 mmol/L Bicarbonate 24 LAB CO2CT 22.0-28.0 mmol/L CO2 Content 25 LAB O2HB 95-98 % Oxyhemoglobin, Art. 97 LAB COHB 0-5.0 % Carboxyhemoglobin,A 1.2 rt LAB MHGB 0.4-1.5 % Methemoglobin 0.9 LAB TEMP C Temperature, Body 37.0 LAB PHTC 7.35-7.45 pH, Temp Corrected 7.43 LAB PCO2T 34-46 mm Hg pCO2, Temp Correct 37 LAB PO2T mm Hg pO2, Temp Corrected 139 LAB NAB 135-146 mmol/L Sodium,Whole Bld 144 LAB KWB 3.5-5.0 mmol/L Potassium, Whole Bld 4.2 LAB HGBB 13.0-17.0 g/dL Low Hemoglobin,Total,AC 10.9 L LAB HCTB 39.0-51.0 % Hematocrit, ACL Low 34 LAB IC 1.08-1.30 mmol/L Calcium, Ion, WB 1.23 LAB GLB 60-105 mg/dL Glucose,Whole Bld High 119 LAB LACT 0.5-2.2 mmol/L Lactate 1.0 Performed By: #### ALLBG #### [facility] [address] [place], [place] [address] GASA + ALL Collected: 05/06/2018 Status: F Source: [place] FOR 4:15 AM [facility] RADIANCE USE ONLY REPOSITORY TYPE CODE TESTS RESULT OUT OF REFERENCE UNITS RANGE LAB PH 7.35-7.45 pH High 7.46 LAB PCO2 34-46 mm Hg pCO2 35 LAB PO2 85-95 mm Hg pO2 High 127 LAB BE mmol/L Base Excess 1 LAB HCO3 22-26 mmol/L Bicarbonate 25 LAB CO2CT 22.0-28.0 mmol/L CO2 Content 26 LAB O2HB 95-98 % Oxyhemoglobin, Art. 96 LAB COHB 0-5.0 % Carboxyhemoglobin,A 1.3 rt LAB MHGB 0.4-1.5 % Methemoglobin 1.1 LAB TEMP C Temperature, Body 37.0 LAB PHTC 7.35-7.45 pH, Temp High Corrected 7.46 LAB PCO2T 34-46 mm Hg pCO2, Temp Correct 35 LAB PO2T mm Hg pO2, Temp Corrected 127 LAB NAB 135-146 mmol/L Sodium,Whole Bld 145 LAB KWB 3.5-5.0 mmol/L Potassium, Whole Bld 4.0 LAB HGBB 13.0-17.0 g/dL Low Hemoglobin,Total,AC 10.6 L LAB HCTB 39.0-51.0 % Hematocrit, ACL Low 33 LAB IC 1.08-1.30 mmol/L Calcium, Ion, WB 1.19 LAB GLB 60-105 mg/dL Glucose,Whole Bld High 111 LAB LACT 0.5-2.2 mmol/L Lactate 1.4 Performed By: #### ALLBG #### [facility] [address] [place], [place] [address] XR CHEST 1V FRONTAL Observed: 05/06/2018 Status: F Source: [facility] 3:56 AM [facility] REPOSITORY * * *Final Report* * * DATE OF EXAM: May 06 2018 3:56AM JIX [id number] - XR CHEST 1V FRONTAL PORT / PROCEDURE REASON: Acute respiratory illness * * * * Physician Interpretation * * * * EXAMINATION: CHEST RADIOGRAPH (PORTABLE SINGLE VIEW AP) Exam Date/Time: 05/06/2018 3:56 AM Clinical History: Acute respiratory illness, MQ: [id number] Comparison: 1 day prior RESULT: See impression. IMPRESSION: Lines, tubes, and devices: Interval removal of endotracheal and NG/OG tube. All other tubes and lines are unchanged. Stable esophageal stent. Lungs and pleura: Mild improvement in right pleural effusion with associated basilar atelectasis/consolidations. No new consolidations in the left lung. No left pleural effusion and no large pneumothorax. Cardiomediastinal silhouette: Stable cardiomediastinal silhouette. Other: . Steel Turner: PSCB Transcribe Date/Time: May 06 2018 7:55A Dictated by : WILI GATES MD This examination was interpreted and the report reviewed and electronically signed by: WILI GATSE MD on May 06 2018 7:58AM EST [id number] GASA + ALL Collected: 05/06/2018 Status: F Source: [facility] 2:12 AM [facility] RADIANCE USE ONLY REPOSITORY TYPE CODE TESTS RESULT OUT OF REFERENCE UNITS RANGE LAB PH 7.35-7.45 pH High 7.48 LAB PCO2 34-46 mm Hg pCO2 Low 32 LAB PO2 85-95 mm Hg pO2 High 120 LAB BE mmol/L Base Excess 1 LAB HCO3 22-26 mmol/L Bicarbonate 23 LAB CO2CT 22.0-28.0 mmol/L CO2 Content 24 LAB O2HB 95-98 % Oxyhemoglobin, Art. 97 LAB COHB 0-5.0 % Carboxyhemoglobin,A 1.0 rt LAB MHGB 0.4-1.5 % Methemoglobin 0.8 LAB TEMP C Temperature, Body 37.0 LAB PHTC 7.35-7.45 pH, Temp High Corrected 7.48 LAB PCO2T 34-46 mm Hg pCO2, Temp Low Correct 32 LAB PO2T mm Hg pO2, Temp Corrected 120 LAB NAB 135-146 mmol/L Sodium,Whole Bld 145 LAB KWB 3.5-5.0 mmol/L Potassium, Whole Bld 4.0 LAB HGBB 13.0-17.0 g/dL Low Hemoglobin,Total,AC 10.4 L LAB HCTB 39.0-51.0 % Hematocrit, ACL Low 32 LAB IC 1.08-1.30 mmol/L Calcium, Ion, WB 1.20 LAB GLB 60-105 mg/dL Glucose,Whole Bld High 157 LAB LACT 0.5-2.2 mmol/L Lactate 1.7 Performed By: #### ALLBG #### [facility] [address] [place] [id number] COMP METABOLIC PANEL Collected: 05/06/2018 Status: F Source: [place] 12:12 AM [facility] REPOSITORY TYPE CODE TESTS RESULT OUT OF REFERENCE UNITS RANGE LAB TP 6.3-8.0 g/dL Protein, Total 6.6 LAB ALB 3.9-4.9 g/dL Low Albumin 2.3 LAB CA 8.5-10.2 mg/dL Low Calcium, Total 8.2 LAB TBIL 0.2-1.3 mg/dL Bilirubin, Total 0.8 LAB ALKP 38-113 U/L Alkaline Phosphatase 82 LAB AST 14-40 U/L AST High 99 LAB GLU 74-99 mg/dL Glucose High 180 Result Comment: The [place] [employer] (ADA) provides guidance for cutoff values for fasting glucose and random glucose. The ADA defines fasting as no caloric intake for at least 8 hours. Fas ting plasma glucose results between 100 to 125 mg/dL indicate increased risk for diabetes (prediabetes). Fasting plasma glucose results greater than or equal to 126 mg/dL meet the criteria for diagnosis of diabetes. In the absence of unequivocal hyperglycemia, results should be confirmed by repeat testing. In a patient with classic symptoms of hyperglycemia or hyperglycemic crisis, random plasma glucose results greater than or equal to 200 mg/dL meet the criteria for diagnosis of diabetes. Reference: Standards of Medical Care in Diabetes 2016, [place] [employer]. Diabetes Care. 2016.39(Suppl 1). LAB BUN 9-24 mg/dL BUN High 64 LAB CRET 0.73-1.22 mg/dL Creatinine 0.85 LAB NA 136-144 mmol/L Sodium High 146 LAB K 3.7-5.1 mmol/L Potassium 4.0 LAB CL 97-105 mmol/L Chloride High 110 LAB CO2 22-30 mmol/L CO2 22 LAB AGAP 9-18 mmol/L Anion Gap 14 LAB ALT 10-54 U/L ALT High 72 LAB GFRAA eGFR- Amer. >60 LAB GFRNAA . eGFR-All Other Races >60 Result Comment: eGFR (Estimated GFR) Units of measure: mL/min/1.73 meters squared eGFR is derived from the reexpressed MDRD Study equation using the following parameters: serum creatinine, age, gender and race. The creatinine assay has been calibrated to be traceable to IDMS. An eGFR <60 mL/min/1.73m2 for >3 months is consistent with chronic kidney disease. Refer to KDOQI guidelines for clinical interpretation. In patients with unstable renal function, e.g. those with acute kidney injury, the eGFR may not accurately reflect actual GFR. Performed By: #### CMP, MG1, PHOS, CBCDIF #### [facility] [address] [place] [id number] MAGNESIUM Collected: 05/06/2018 Status: F Source: [place] 12:[address] [facility] REPOSITORY TYPE CODE TESTS RESULT OUT OF REFERENCE UNITS RANGE LAB MG 1.7-2.3 mg/dL Magnesium 2.1 Performed By: #### CMP, MG1, PHOS, CBCDIF #### [facility] [address] [place], [place] [address] PHOSPHORUS Collected: 05/06/2018 Status: F Source: [place] 12:12 AM [facility] REPOSITORY TYPE CODE TESTS RESULT OUT OF REFERENCE UNITS RANGE LAB PHOS 2.7-4.8 mg/dL High Phosphorus 5.2 Performed By: #### CMP, MG1, PHOS, CBCDIF #### [facility] [address] [place], [place] [address] CBC AND DIFFERENTIAL Collected: 05/06/2018 Status: F Source: [place] 12:12 AM [facility] REPOSITORY TYPE CODE TESTS RESULT OUT OF REFERENCE UNITS RANGE LAB WBC 3.70-11.00 k/uL WBC High 15.50 LAB RBC 4.20-6.00 m/uL RBC Low 3.60 LAB HGB 13.0-17.0 g/dL Hemoglobin Low 10.5 LAB HCT 39.0-51.0 % Hematocrit Low 32.8 LAB MCV 80.0-100.0 fL MCV 91.1 LAB MCH 26.0-34.0 pG MCH 29.2 LAB MCHC 30.5-36.0 g/dL MCHC 32.0 LAB RDWCV 11.5-15.0 % RDW-CV High 17.4 LAB PLTCT 150-400 k/uL Platelet Count 289 LAB MPV 9.0-12.7 fL MPV 10.4 LAB ANEUT % Neut% 90.8 LAB AANEUT 1.45-7.50 k/uL Abs Neut High 14.07 LAB ALYMP % Lymph% 0.8 LAB AALYMP 1.00-4.00 k/uL Abs Lymph Low 0.12 LAB AMONO % Hendry% 6.7 LAB AAMONO <0.87 k/uL Abs Hendry High 1.04 LAB AEOS % Eosin% 0.0 LAB AAEOS <0.46 k/uL Abs Eosin 0.00 LAB ABASO % Baso% 0.0 LAB AABASO <0.11 k/uL Abs Baso 0.00 LAB AMYELO % Myelo% 1.7 LAB ANIIMI Anisocytosis Present LAB LFTIMI Left Shift Present LAB OVAIMI Ovalocytes Few LAB POLIMI Polychromasia Slight LAB RCFIMI RBC Fragments Few LAB PLTEST Platelet Estimate Platelet estimate adequate LAB DTYP DTYPE Manual Diff Performed By: #### CMP, MG1, PHOS, CBCDIF #### [facility] [address] [place], [place] [address] GASA + ALL Collected: 05/06/2018 Status: F Source: [place] FOR 12:11 AM [facility] REPOSITORY TYPE CODE TESTS RESULT OUT OF REFERENCE UNITS RANGE LAB PH 7.35-7.45 pH 7.48 High LAB PCO2 34-46 mm Hg pCO2 31 Low LAB PO2 85-95 mm Hg pO2 117 High LAB BE mmol/L Base Excess 0 LAB HCO3 22-26 mmol/L Bicarbonate 23 LAB CO2CT 22.0-28.0 mmol/L CO2 Content 24 LAB O2HB 95-98 % 97 Oxyhemoglobin, Art. LAB COHB 0-5.0 % 1.5 Carboxyhemoglobin ,Art LAB MHGB 0.4-1.5 % 0.5 Methemoglobin LAB TEMP C 36.2 Temperature, Body LAB PHTC 7.35-7.45 pH, Temp 7.49 High Corrected LAB PCO2T 34-46 mm Hg pCO2, Temp 30 Low Correct LAB PO2T mm Hg pO2, Temp 113 Corrected LAB NAB 135-146 mmol/L 142 Sodium,Whole Bld LAB KWB 3.5-5.0 mmol/L Potassium, 3.9 Whole Bld LAB HGBB 13.0-17.0 g/dL 10.7 Low Hemoglobin,Total, ACL LAB HCTB 39.0-51.0 % Hematocrit, 33 Low ACL LAB IC 1.08-1.30 mmol/L Calcium, 1.18 Ion, WB LAB GLB 60-105 mg/dL 182 High Glucose,Whole Bld LAB LACT 0.5-2.2 mmol/L Lactate 1.6 LAB ABGCOM Blood Gas O2 Comm, Art Administration Result Comment: 40% Performed By: #### ALLBG #### [facility] [address] [place], [place] [address] GASA + ALL Collected: 05/05/2018 Status: F Source: [place] FOR 10:11 PM [facility] REPOSITORY TYPE CODE TESTS RESULT OUT OF REFERENCE UNITS RANGE LAB PH 7.35-7.45 pH High 7.48 LAB PCO2 34-46 mm Hg pCO2 Low 32 LAB PO2 85-95 mm Hg pO2 High 99 LAB BE mmol/L Base Excess 1 LAB HCO3 22-26 mmol/L Bicarbonate 23 LAB CO2CT 22.0-28.0 mmol/L CO2 Content 24 LAB O2HB 95-98 % Oxyhemoglobin, Art. 96 LAB COHB 0-5.0 % Carboxyhemoglobin,A 1.1 rt LAB MHGB 0.4-1.5 % Methemoglobin 0.7 LAB TEMP C Temperature, Body 37.0 LAB PHTC 7.35-7.45 pH, Temp High Corrected 7.48 LAB PCO2T 34-46 mm Hg pCO2, Temp Low Correct 32 LAB PO2T mm Hg pO2, Temp Corrected 99 LAB O2AD O2 Administered 40.0 LAB NAB 135-146 mmol/L Sodium,Whole Bld 144 LAB KWB 3.5-5.0 mmol/L Potassium, Whole Bld 3.8 LAB HGBB 13.0-17.0 g/dL Low Hemoglobin,Total,AC 10.4 L LAB HCTB 39.0-51.0 % Hematocrit, ACL Low 32 LAB IC 1.08-1.30 mmol/L Calcium, Ion, WB 1.17 LAB GLB 60-105 mg/dL Glucose,Whole Bld High 186 LAB LACT 0.5-2.2 mmol/L Lactate 1.8 Performed By: #### ALLBG #### [facility] [address] [place] [address] GASA + ALL Collected: 05/05/2018 Status: F Source: [place] FOR 8:20 PM [facility] RADIANCE USE ONLY REPOSITORY TYPE CODE TESTS RESULT OUT OF REFERENCE UNITS RANGE LAB PH 7.35-7.45 pH High 7.52 LAB PCO2 34-46 mm Hg pCO2 Low 31 LAB PO2 85-95 mm Hg pO2 High 118 LAB BE mmol/L Base Excess 2 LAB HCO3 22-26 mmol/L Bicarbonate 25 LAB CO2CT 22.0-28.0 mmol/L CO2 Content 26 LAB O2HB 95-98 % Oxyhemoglobin, Art. 97 LAB COHB 0-5.0 % Carboxyhemoglobin,A 1.2 rt LAB MHGB 0.4-1.5 % Methemoglobin 0.7 LAB TEMP C Temperature, Body 37.0 LAB PHTC 7.35-7.45 pH, Temp High Corrected 7.52 LAB PCO2T 34-46 mm Hg pCO2, Temp Low Correct 31 LAB PO2T mm Hg pO2, Temp Corrected 118 LAB NAB 135-146 mmol/L Sodium,Whole Bld 143 LAB KWB 3.5-5.0 mmol/L Potassium, Whole Bld 3.8 LAB HGBB 13.0-17.0 g/dL Low Hemoglobin,Total,AC 10.7 L LAB HCTB 39.0-51.0 % Hematocrit, ACL Low 33 LAB IC 1.08-1.30 mmol/L Calcium, Ion, WB 1.16 LAB GLB 60-105 mg/dL Glucose,Whole Bld High 167 LAB LACT 0.5-2.2 mmol/L Lactate 1.5 Performed By: #### ALLBG #### [facility] [address] [place] [address] GASA + ALL Collected: 05/05/2018 Status: F Source: [place] FOR 6:08 PM [facility] RADIANCE USE ONLY REPOSITORY TYPE CODE TESTS RESULT OUT OF REFERENCE UNITS RANGE LAB PH 7.35-7.45 pH 7.50 High LAB PCO2 34-46 mm Hg pCO2 30 Low LAB PO2 85-95 mm Hg pO2 110 High LAB BE mmol/L Base Excess 1 LAB HCO3 22-26 mmol/L Bicarbonate 24 LAB CO2CT 22.0-28.0 mmol/L CO2 Content 24 LAB O2HB 95-98 % 97 Oxyhemoglobin, Art. LAB COHB 0-5.0 % 0.9 Carboxyhemoglobin ,Art LAB MHGB 0.4-1.5 % 0.8 Methemoglobin LAB TEMP C 37.0 Temperature, Body LAB PHTC 7.35-7.45 pH, Temp 7.50 High Corrected LAB PCO2T 34-46 mm Hg pCO2, Temp 30 Low Correct LAB PO2T mm Hg pO2, Temp 110 Corrected LAB NAB 135-146 mmol/L 146 Sodium,Whole Bld LAB KWB 3.5-5.0 mmol/L Potassium, 3.2 Low Whole Bld LAB HGBB 13.0-17.0 g/dL 10.2 Low Hemoglobin,Total, ACL LAB HCTB 39.0-51.0 % Hematocrit, 31 Low ACL LAB IC 1.08-1.30 mmol/L Calcium, 1.19 Ion, WB LAB GLB 60-105 mg/dL 103 Glucose,Whole Bld LAB LACT 0.5-2.2 mmol/L Lactate 1.5 LAB ABGCOM Blood Gas O2 Comm, Art Administration Result Comment: 10L Performed By: #### ALLBG #### [facility] [address] [place], [place] [address] THERAPY NT Observed: 05/05/2018 Status: COMPLETED Source: [place] 3:44 PM [facility] REPOSITORY HNO ID: [id number] Author: Kevin (Pt) Marvin Service: Physical Therapy Author Type: Physical Therapist Type: Therapy (PT/OT/Speech/Resp) Filed: 05/05/2018 3:44 PM Note Text: PHYSICAL THERAPY MISSED VISIT SERVICE DATE: 05/05/2018 SERVICE TIME: 1406 to 1406 ROOM: [place] [address] ([facility] LAB MAIN ([facility] Vasc/Ultrasound)) Attempted Treatment. Patient not seen due to Test/Procedure. SIGNATURE: Kevin Wong, PT PATIENT NAME: Lazaro Villafana DATE: May 05, 2018 TIME: 3:44 PM NUTRITION Observed: 05/05/2018 Status: COMPLETED Source: [place] 2:32 PM [facility] REPOSITORY HNO ID: [id number] Author: Sari Weston Service: NST-Nutrition Support Team Author Type: Registered Dietitian Type: Nutrition Filed: 05/05/2018 2:41 PM Note Text: NUTRITION SUPPORT TEAM PROGRESS NOTE SERVICE DATE: 05/05/2018 SERVICE TIME: 1053 RECOMMENDED DIAGNOSIS: NO MALNUTRITION IDENTIFIED per Registered Dietitian on 04/28 NUTRITION CARE PLAN Intervention: 1. ?Continue TPN ?- PN to provide 120gms 15% AA, 1700 dextrose calories, 1800ml?at 75ml/hr ?- orders pended with reduced NaPhos, reduce Na+ acetate, incr K+ acetate, incr MgSO4, MVI, MTE, 85-100u insulin (1:3?ratio), 100mg thiamine 2. ?250ml IVPB lipids 20% fat emulsion MWF started 04/27; d/c'd 05/02 with pt on propofol; consider restart 05/06 with propofol off ? Monitor and Evaluation: Goal: Meet >75% of estimated needs Monitor fluid/electrolyte balance Monitor labs, I/Os, vital signs, weight ? Discharge Nutrition Recommendations:? To be determined ? 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 Patient initially presented with hematemesis and melena with accompanying dizziness and shortness of breath. Transferred to [facility] on 04/14 for further management. s/p EGD 04/15?which showed a deep esophageal tear. ?Plan for a minimum of NPO x 2 weeks. ?04/16 Right chest tube placed for effusion. ?Esophagram (04/27/18): Persistent right mid-esophageal perforation; GI c/s and plan for esophageal stent placement tomorrow. ?s/p EGD 04/29: Esophageal stent successfully placed in Q3. Acute pulmonary insufficiency following non-thoracic surgery requiring intubation. Respiratory status improved with placement of CT to sxn. s/p TIPS 04/30. Interval History: Wants to know when he can eat Pt is afebrile with Tmax: 36.8 Resp: high flow O2 I/O's: Intake/Output Summary (Last 24 hours) at 05/05/18 1437 Last data filed at 05/05/18 1330 Gross per 24 hour Intake 4304 ml Output 6510 ml Net -2206 ml overall +5794.3 Abdomen: not assessed Last BM: ?05/01 Enteral access: ?n/a; NG to LIWS Parenteral access: ?left IJ TLC placed 04/27 Labs: hypernatremia, hyperchloremia, Mg suboptimal, lactate 1.8, ionized calcium 1.17 Blood Gases: pH 7.53, pCO2 27, HCO3 23 Blood sugars: 212, 164, 193 Cultures: n/a Imaging: n/a Nutritional Intake: Intake History BI DATA ARCHITECT: Unable to determine Current intake: 04/17: ?Average 5 day intakes meeting <50% of estimated energy need.s started on PN 04/17 due to esophageal tear, plan for NPO x 2 weeks 04/18: currently goal kcals, PN 940 kcals, 110 g pro + propofol 765 kcals/day 04/20: ?TPN wirh orders 04/17 - 04/19 to provide 110gms protein and 940 claories + additional calories from propofol (04/19 provided 626 calories) 04/21 - 04/22: ?PN with orders 04/20 - 04/21?to provide 100gms protein and 1000 calories + additional calories from propofol 04/25: ?PN with orders 04/22 - 04/24 to provide 110gms protein and 1040 calories 04/26 - 04/27: ?PN with orders 04/25 - 04/26?to provide 120gms protein and 1600 calories 04/28: ?PN with orders 04/27 to provide 120 gms protein and 1650 calories 04/29?- 05/02:?PN with orders 04/28 - 05/01?to provides 120 g protein and 1650 kcals + additonal calories from propofol; propofol restarted 05/03: TPN?- providing 1460 calories, 120 grams protein 05/04: TPN with orders 05/02 - 05/03 120gms protein and 1460 calories 05/05: TPN with orders 05/04 120gms protein and 1650 calories ? 250ml IVPB lipids 20% fat emulsion MWF started 04/27; d/c today - 05/02 with pt on propofol. ?? Current Diet Order DIET NPO Lines and Drains: Central Line Triple Lumen 04/27/18 Non-tunneled Left Neck (Active) Peripheral 05/04/18 1815 Short Left Forearm 20 Gauge (Active) GI Feed/Drain 05/01/18 Assessment Nasogastric Right Naris 14 Fr (Active) Indwelling Urinary Catheter 04/29/18 2030 Mcclain 18 Fr (Active) Chest Tube 05/01/18 1218 Right Pleural Tube #1 (Active) Chest Tube 05/01/18 1219 Right Pleural 28 Fr Tube #2 (Active) Chest Tube 05/01/18 1219 Right Pleural Tube #3 (Active) Height: 177.8 cm (5' 10) Admission Weight: 106.1 kg (233 lb 14.5 oz) Current Weight: 116.7 kg (257 lb 4.4 oz) Body mass index is 36.92 kg/m?. Usual body weight ?Unable to determine? No weight history available. ? Estimated nutrition goals: [place] body weight: 75.4 kg Dosing weight: 106?kg (04/14; BMI 33.5kg/m2)?? Calorie needs 9723-3740?kilocalories determined by = 15-20?kcals/kg ?Dosing?weight? Protein needs: 90 - 121?grams determined by 1.2 -1.6g/kg ideal?weight?- due to CKD Temp (24hrs), Av.3 ?C (97.4 ?F), Min:35.9 ?C (96.6 ?F), Max:36.8 ?C (98.2 ?F) Recent Labs 05/05/18 0004 GLUC 148* BUN 59* CREAT 0.83 NA 145* K 3.8 CHLOR 110* CO2 24 ALB 2.0* P 4.5 HB 9.0* HCT 27.7* WBC 8.05 MG 1.9 Surgical Incision 05/01/18 Thoracotomy - Right (Active) Dressing Status None: Open to Air 05/05/2018 7:30 AM Frequency of Dressing Change Daily 05/03/2018 1:30 AM Dressing Change Due 05/04/18 05/03/2018 7:30 AM Dressing /Treatment Type Dry Sterile Dressing 05/03/2018 7:30 AM Incision Closures Intact 05/05/2018 7:30 AM Drainage Description None 05/05/2018 7:30 AM Drainage Amount None 05/05/2018 7:30 AM Edges Intact 05/05/2018 7:30 AM Hematoma No 05/05/2018 7:30 AM Number of days: 4 Vitamin and Mineral Labs in the past year:No results for input(s): CHROMIUM, COPPER, MANGANESE, SELENIUM, VITAMINA, VITB1, VITB2, VITB6, B12, METHYLMAL, VITD25, VITAMINE, VITAK, ZINC, TIBC, FE, JOHANNY in the last 8784 hours. MNT Billing Type: Re-assess/15 min 2 units SIGNATURE: Sari Weston RD [facility] PATIENT NAME: Lazaro Villafana DATE: May 05, 2018 TIME: 2:32 PM PAGER: [phone] CONSULT PROG Observed: 05/05/2018 Status: COMPLETED Source: [place] 2:[address] [facility] [place] REPOSITORY HNO ID: [id number] Author: Alexander Caruso (Pharmacist) Service: Pharmacy Author Type: Pharmacist Type: Consult Progress Note Filed: 05/05/2018 2:12 PM Note Text: MEDICATION HISTORY AND MEDICATION RECONCILIATION Patient Name:Violet Villafana : 1965 Source of history:[facility] records Medication Nonadherence Identified: No barriers noted The above information represents the best possible medication history: Yes Reconciliation completed? Yes All BI DATA ARCHITECT medications addressed by LIP, previously. Additional comments: Hospital day 21. BI DATA ARCHITECT mediations previously resumed or held appropriately. Currently NPO. Reassess resumption of oral medications when appropriate. Allergies: ALLERGIES Allergen Reactions - Ciprofloxacin Unknown - Penicillin Unknown Tolerating cefepime Preferred Pharmacy: TBD Current BI DATA ARCHITECT Medications: Prior to Admission medications as of 05/01/18 4301 Medication Sig Last Dose Taking amLODIPine (NORVASC) 10 mg tablet Take 10 mg by mouth once daily. metFORMIN (GLUCOPHAGE) 500 mg tablet Take 500 mg by mouth twice daily. losartan (COZAAR) 50 mg tablet Take 50 mg by mouth once daily. lactulose (DUPHALAC, CONSTULOSE) 10 gram/15 mL solution glyBURIDE (DIABETA) 5 mg tablet Take 5 mg by mouth twice daily. hydrOXYzine pamoate (VISTARIL) 50 mg capsule Take 50 mg by mouth twice daily as needed. NORepinephrine (LEVOPHED) 16 mg in D5W 250 mL Inject 0.6-30 mcg/min intravenously continuous. metroNIDAZOLE (FLAGYL) 500 mg/100 mL Inject 100 mL intravenously every 8 hours. aztreonam (AZACTAM) 1 g in D5W 100 mL Inject 100 mL intravenously every 8 hours. propofol infusion (DIPRIVAN) 10 mg/mL injection Inject 0.485- 5.82 mg/min intravenously continuous. pantoprazole (PROTONIX) 40 mg injection Inject 10 mL intravenously twice daily. octreotide 500 mcg in D5W 100 mL Inject 50 mcg/hr intravenously continuous. Alexander Caruso, Pharmacist May 05, 2018 2:05 PM G[facility] + ALL Collected: 05/05/2018 Status: F Source: [place] FOR 1:06 PM [facility] REPOSITORY TYPE CODE TESTS RESULT OUT OF REFERENCE UNITS RANGE LAB PH 7.35-7.45 pH High 7.53 LAB PCO2 34-46 mm Hg pCO2 Low 27 LAB PO2 85-95 mm Hg pO2 94 LAB BE mmol/L Base Excess 1 LAB HCO3 22-26 mmol/L Bicarbonate 23 LAB CO2CT 22.0-28.0 mmol/L CO2 Content 23 LAB O2HB 95-98 % Oxyhemoglobin, Art. 96 LAB COHB 0-5.0 % Carboxyhemoglobin,A 1.3 rt LAB MHGB 0.4-1.5 % Methemoglobin 0.8 LAB TEMP C Temperature, Body 37.0 LAB PHTC 7.35-7.45 pH, Temp High Corrected 7.53 LAB PCO2T 34-46 mm Hg pCO2, Temp Low Correct 27 LAB PO2T mm Hg pO2, Temp Corrected 94 LAB NAB 135-146 mmol/L Sodium,Whole Bld 145 LAB KWB 3.5-5.0 mmol/L Potassium, Whole Low Bld 3.3 LAB HGBB 13.0-17.0 g/dL Low Hemoglobin,Total,AC 10.4 L LAB HCTB 39.0-51.0 % Hematocrit, ACL Low 32 LAB IC 1.08-1.30 mmol/L Calcium, Ion, WB 1.17 LAB GLB 60-105 mg/dL Glucose,Whole Bld High 138 LAB LACT 0.5-2.2 mmol/L Lactate 1.8 Performed By: #### ALLBG #### [facility] [address] [place] [address] CASE MANAGEM Observed: 05/05/2018 Status: COMPLETED Source: [place] 11:06 AM [facility] REPOSITORY HNO ID: [id number] Author: Tenisha GhoshRn) BLAYNE Cox Service: Case Management Author Type: Registered Nurse Type: Care Mgt Progress Note Filed: 05/05/2018 11:14 AM Note Text: CARE MANAGEMENT PROGRESS NOTE SERVICE DATE: 05/05/2018 SERVICE TIME: 11:07 AM LOS: 21 days Needs Prior to Discharge: To Be Determined Afebrile for > 24 hours, fluctuating leukocytosis. S/p VATS decortication 05/01/18 with cultures in process but all stains/smears negative. On TPN. Broad-spectrum antibiotics continued. Steroids started 05/03/18. Extubated 05/04/18. Getting OOB to chair. Slightly confused, thinks he will have a procedure done today, ? Daily TPN, continue vancomycin (goal trough 15-25), aztreonam, metronidazole, fluconazole. LTAC referral sent to [facility] for screening. Case Management will continue to follow Medical course and plan discharge accordingly. SIGNATURE: Tneisha Cox RN PATIENT NAME: Lazaro Villafana DATE: May 05, 2018 TIME: 11:07 AM PAGER/CONTACT #: [phone] PROGRESS Observed: 05/05/2018 Status: COMPLETED Source: [place] 10:37 AM [facility] REPOSITORY HNO ID: [id number] Author: Steven Sanchez Service: Critical Care Author Type: Anesthesiologist Type: Progress Notes Filed: 05/05/2018 10:45 AM Note Text: CVICU PROGRESS NOTE Admission Date: 04/14/2018 Hospital Day: # 21 4 Days Post-Op SUBJECTIVE: Interval Events: Extubated yesterday. Intermittently agitated. Patient Active Hospital Problem List: Esophageal perforation (04/14/2018) Hydropneumothorax (04/29/2018) History of hypertension (04/29/2018) Type II diabetes mellitus (HCC) (04/29/2018) Hyperglycemia (04/14/2018) Alcoholic cirrhosis (HCC) (04/14/2018) COPD (chronic obstructive pulmonary disease) (HCC) (04/14/2018) Acute post-operative pain (04/20/2018) Tobacco abuse (04/20/2018) Mediastinitis (04/20/2018) Severe protein-calorie malnutrition (HCC) (04/22/2018) Delirium due to general medical condition (04/26/2018) CKD (chronic kidney disease) (04/29/2018) Portal hypertension (HCC) (04/14/2018) Volume overload (05/03/2018) S/P TIPS (transjugular intrahepatic portosystemic shunt) (05/03/2018) ASSESSMENT/PLAN: Continue nothing by mouth and TPN. Hypertension treated with IV metoprolol, IV enalapril, and IV hydralazine. Continue antibiotics per infectious disease recommendations. Delirium appears to be better controlled. If needed, dexmedetomidine has been effective. Ultrasound results from yesterday reviewed. Hypervolemia persists. Schedule IV Lasix. IV insulin infusion for glycemic control. Chest tube management per thoracic surgery service. COORDINATION OF CARE NOTE: Important/Relevant PMH/PSH: Alcohol use disorder with recent diagnosis of cirrhosis w/ esophageal varices, type II DM, poorly controlled HTN, CKD, COPD, tobacco smoker 2-3 PPD. Hospital Course: HPI: Lazaro Villafana is a 52 year old male with alcohol use disorder with recent diagnosis of cirrhosis w/ esophageal varices who presents on transfer from OSH with hematemesis s/p EGD at OSH c/b esophageal laceration; MELD >?20. R-sided chest tube for hydropneumothorax. Admitted to [facility] SICU 04/14/18. 04/15/18: EGD showed 5cm esophageal laceration without active bleeding. 04/16/18: Right chest tube placed for effusion. 04/22/18: Extubated. 04/26/18: EGD: partial mucosal tear in mid esophagus. 04/27/18: Eesophagram showed persistent leak. 04/29/18: EGD 04/29: Esophageal stent successfully placed in Q3. Acute pulmonary insufficiency following non-thoracic surgery requiring intubation. Respiratory status improved with placement of CT to sxn. See Epic note for more details. Per discussion between Dr Jerry and Dr Soto the patient's care will be transitioned to Thoracic Surgery care, thoracic Surgery being primary team. Transferred to CVICU from SICU. 04/30-->TIPS A/P of Major Active Problems (excluding routine care and common problems): CV: SR. hypertensive. Resp: Intubated and sedated. Status post TIPS and right VATS. Extubated 05/04 GI: Strict NPO, TPN. Cirrhosis. Follow INR. Esoph stent to be removed in 4 weeks. Renal: Cr normal. Hypervolemic-schedule diuretics Endo: Insulin infusion for glucose control ID: Hospital course c/b mediastinitis with fevers an purulent chest tube output on vancomycin/aztreonam/flagyl/diflucan. ID following. Epistaxis: ENT following-->Nasal packing with Surgicel fibrillar removed by patient Neuro: Intermittently agitated. Continue olanzapine. Dexmedetomidine as needed, and has been effective. Lines: L IJ triple lumen (04/27/18). To Do or to Watch: Daily TPN Agitation Hypervolemia OBJECTIVE: Vital Signs: Temp Min: 35.7 ?C (96.3 ?F) Max: 39 ?C (102.2 ?F) Temp (24hrs), Av.3 ?C (97.4 ?F), Min:35.9 ?C (96.6 ?F), Max:36.8 ?C (98.2 ?F) Vitals: 05/05/18 0930 05/05/18 0950 05/05/18 1010 05/05/18 1030 Pulse: 87 84 88 91 BP: MAP Non Invasive (Mean Arterial Pressure): Arterial BP 1: 154/51 149/49 154/54 159/54 MAP Invasive (Mean Arterial Pressure) 1: 79 76 81 84 Resp: SpO2: 94% 94% 94% 93% Additional Cardiac Parameters 05/05/18 0710 05/05/18 0730 05/05/18 0810 05/05/18 0830 CVP: 8 8 8 10 Fluid Balance: Date 05/04/18 0700 - 05/05/18 0659 05/05/18 0700 - 05/06/18 0659 Shift 0345-4912 6326-5064 5938-8714 24 Hour Total 9975-3312 2520-4053 6409-9309 24 Hour Total I N T A K E IV 671 1653 2324 NS 0.9% 1013 1013 Regular Insulin IV 126 111 237 Dexmedetomidine IV 173 120 293 Nitroglycerine Volume 372 409 781 TPN/PPN 6173 612 3299 TPN 7586 042 5716 Irrigants 30 30 90 150 Irrigant/Flush Amount In (GI Feed/Drain 05/01/18 Assessment Nasogastric Right Naris 14 Fr) 30 30 90 150 Shift Total 30 1739 2565 4334 O U T P U T Urine 1100 2270 1660 5030 890 890 Output ( Indwelling Urinary Catheter 04/29/18 2030 Mcclain 18 Fr) 1100 2270 1660 5030 890 890 Tubes 200 100 300 Output (GI Feed/Drain 05/01/18 Assessment Nasogastric Right Naris 14 Fr) 200 100 300 Chest Tube 110 90 110 310 10 10 Chest Tube Output (Chest Tube 05/01/18 1218 Right Pleural Tube #1) 50 40 70 160 10 10 Chest Tube Output (Chest Tube 05/01/18 1219 Right Pleural 28 Fr Tube #2) 20 20 30 70 0 0 Chest Tube Output (Chest Tube 05/01/18 1219 Right Pleural Tube #3) 40 30 10 80 0 0 Shift Total 1210 2560 1870 5640 900 900 Weight (kg) 118.2 118.2 116.7 116.7 116.7 116.7 116.7 116.7 Last Weight: 116.7 kg (257 lb 4.4 oz) (05/05/18 0300) Admit Weight: 106.1 kg (233 lb 14.5 oz) (04/16/18 0000) DIET NPO Parenteral Nutrition - Adult Lines, Drains, and Airways Line Central Line Triple Lumen 04/27/18 Non-tunneled Left Neck 8 days Arterial Line 04/29/182009 Arterial Line Left Radial 5 days Peripheral 05/04/18 1815 Short Left Forearm 20 Gauge less than 1 day Drain Indwelling Urinary Catheter 04/29/182029 Mcclain 18 Fr 5 days GI Feed/Drain 05/01/18 Assessment Nasogastric Right Naris 14 Fr 4 days Chest Tube 05/01/18 1218 Right Pleural Tube #1 3 days Chest Tube 05/01/18 1219 Right Pleural Tube #3 3 days Chest Tube 05/01/18 1219 Right Pleural 28 Fr Tube #2 3 days Vent/Oxygen: O2 Therapy: Hi-Flow Face Mask-Heated (05/05/18 08) Liters: (S) 45 (05/05/18 08) %FIO2: 40 (05/05/18815) %FIO2 Min: 40 Max: 50 Pulmonary Therapy: Bronchodilators VENTILATOR INFORMATION: Settings: Invasive Ventilator Mode: Continuous Positive Airway Pressure;Pressure Support Ventilation (05/04/18 0707) %FIO2: 40 Set Ventilator Respiratory Rate (BPM): (S) 18 PEEP/CPAP (cm H2O): (S) 5 Inspiratory Pressure Set (cm H2O): (S) 8 Patient Data: Inspiratory:Expiratory Ratio: 1:2 Peak Inspiratory Pressure (cm H2O): 14 Plateau Pressure (cm H2O): 21 Weaning Data: Spontaneous Respiratory Rate (BPM): 22 Physical Examination Performed: Cardiovascular: Regular rate and rhythm, normal sinus rhythm Respiratory: Unlabored, tolerating high flow oxygen via mask Extremities: Edema of all extremities, all warm and well-perfused Neurologic: Awake, alert and oriented times 2?3, moves all extremities, follows commands Diagnostic tests reviewed today: CXR: Increased vascular markings bilaterally, right pleural effusion Recent Labs 05/05/18 0954 05/05/18 0745 05/05/18 0357 05/05/18 0203 05/05/18 0004 PH 7.55* 7.49* 7.49* 7.49* 7.48* PCO2 25* 31* 29* 30* 31* PO2 88 93 94 98* 99* HCO3 22 23 22 23 23 BE 0 0 NEG 1 0 0 Recent Labs 05/05/18 0004 05/04/18 0005 05/03/18 0054 MCV 89.9 91.0 90.1 MCH 29.2 29.6 29.7 MPV 11.4 11.7 11.5 Recent Labs 05/05/18 0004 05/04/18 0005 05/03/18 0054 05/02/18 0248 05/01/18 1521 04/28/18 0106 04/20/18 1338 04/14/18 1700 04/14/18 1415 WBC 8.05 6.97 13.83* 7.56 14.41* < > 7.63 < > 10.03 < > 20.86* 21.54* RBC 3.08* 3.45* 3.54* 3.41* 3.36* < > 2.77* < > 2.66* < > 2.73* 2.67* HB 9.0* 10.2* 10.5* 9.8* 9.6* < > 7.8* < > 7.9* < > 8.0* 8.1* HCT 27.7* 31.4* 31.9* 29.8* 30.1* < > 25.5* < > 24.2* < > 25.0* 25.3* PLT 149* 125* 166 124* 194 < > 145* < > 66* < > 102* 120* MCV 89.9 91.0 90.1 87.4 89.6 < > 92.1 < > 91.0 < > 91.6 94.8 MCH 29.2 29.6 29.7 28.7 28.6 < > 28.2 < > 29.7 < > 29.3 30.3 MPV 11.4 11.7 11.5 11.1 10.7 < > 11.1 < > 11.1 < > 12.2* 12.2* RDW -- -- -- -- -- -- -- -- -- -- 15.3* 13.0 ABSNEUT 7.12 6.39 -- -- -- -- 5.58 < > 8.53* < > -- -- ANCSEGBAND -- -- -- -- -- -- -- -- 8.53 -- -- -- NEUTP 88.5 91.8 -- -- -- -- 73.1 < > 85.0 < > -- -- LYMPHP 5.2 3.7 -- -- -- -- 16.9 < > 8.0 < > -- -- MONOP 6.2 4.4 -- -- -- -- 6.6 < > 7.0 < > -- -- EODINP 0.0 0.0 -- -- -- -- 3.0 < > 0.0 < > -- -- < > = values in this interval not displayed. Recent Labs 05/05/18 0004 05/04/18 0005 05/03/18 0054 05/02/18 0248 05/01/18 1521 05/01/18 0156 GLUC 148* 223* 194* 257* 188* 207* NA 145* 141 139 137 137 137 K 3.8 4.5 4.9 4.2 5.2* 4.5 CHLOR 110* 109* 109* 105 107* 106* CO2 24 21* 21* 19* 21* 19* CREAT 0.83 0.89 0.89 1.03 1.16 1.10 BUN 59* 51* 43* 42* 38* 39* ANION 11 11 9 13 9 12 CA 7.9* 8.0* 7.9* 7.7* 7.5* 7.3* TPROT 5.8* 6.5 6.2* 6.0* -- 6.5 ALB 2.0* 2.1* 1.9* 1.9* -- 1.9* TBILI 0.5 0.5 0.5 0.6 -- 0.5 ALKPHOS 70 85 76 59 -- 61 AST 89* 160* 161* 73* -- 55* ALT 62* 83* 56* 31 -- 23 Recent Labs 05/05/18 0004 05/04/18 0005 05/03/18 1803 05/01/18 1521 05/01/18 1101 05/01/18 0920 APTT 32.2 30.0 29.3 29.9 33.8* 32.5* INR 1.5* 1.4* 1.4* 1.3 1.5* 1.4* FIBCT -- -- -- 478* 432* 483* VAP Prevention: Chlorhexidine Mouth Care: Not Applicable Stress Ulcer Prophylaxis PPI or H2 antagonist: Yes VTE Prophylaxis: Active VTE Risk Category Order: 04/14/18 2100 VTE RISK CATEGORY: SURGICAL MODERATE RISK ([place], [place]) Active VTE Medication Orders: 05/02/18 0800 HEPARIN 5,000 UNITS INJECTION Active VTE Prophylaxis Orders: 05/05/18 0800 ACTIVITY - MOBILIZE PATIENT ([place], [place]) 04/28/18 0845 GRADUATED COMPRESSION STOCKINGS ([place], [place]) 04/14/18 2100 PNEUMATIC COMPRESSION STOCKINGS ([place], [place]) Anticoagulant AND Antiplatelet Medications Start Dose Route Frequency Ordered Stop 05/02/18 0800 heparin 5,000 Units injection 5,000 Units SUBCUTANEOUS EVERY 12 HOURS 05/02/18 0756 -- I personally reviewed and updated the patient's history and course in the note as well as the assessment AND plan. I discussed the management plan with the RN and RT. SIGNATURE: Steven Sanchez MD, MMM PT NAME: Lazaro Villafana DATE: May 05, 2018 GASA + ALL Collected: 05/05/2018 Status: F Source: [place] FOR 9:54 AM [facility] USE ONLY REPOSITORY TYPE CODE TESTS RESULT OUT OF REFERENCE UNITS RANGE LAB PH 7.35-7.45 pH High 7.55 LAB PCO2 34-46 mm Hg pCO2 Low 25 LAB PO2 85-95 mm Hg pO2 88 LAB BE mmol/L Base Excess 0 LAB HCO3 22-26 mmol/L Bicarbonate 22 LAB CO2CT 22.0-28.0 mmol/L CO2 Content 22 LAB O2HB 95-98 % Oxyhemoglobin, Art. 96 LAB COHB 0-5.0 % Carboxyhemoglobin,A 0.9 rt LAB MHGB 0.4-1.5 % Methemoglobin 0.6 LAB TEMP C Temperature, Body 37.0 LAB PHTC 7.35-7.45 pH, Temp High Corrected 7.55 LAB PCO2T 34-46 mm Hg pCO2, Temp Low Correct 25 LAB PO2T mm Hg pO2, Temp Corrected 88 LAB NAB 135-146 mmol/L Sodium,Whole Bld 145 LAB KWB 3.5-5.0 mmol/L Potassium, Whole Bld 3.5 LAB HGBB 13.0-17.0 g/dL Low Hemoglobin,Total,AC 10.2 L LAB HCTB 39.0-51.0 % Hematocrit, ACL Low 31 LAB IC 1.08-1.30 mmol/L Calcium, Ion, WB 1.15 LAB GLB 60-105 mg/dL Glucose,Whole Bld High 143 LAB LACT 0.5-2.2 mmol/L Lactate 2.0 Performed By: #### ALLBG #### [facility] [address] [place], [place] [address] GASA + ALL Collected: 05/05/2018 Status: F Source: [place] FOR 7:45 AM [facility] USE ONLY REPOSITORY TYPE CODE TESTS RESULT OUT OF REFERENCE UNITS RANGE LAB PH 7.35-7.45 pH 7.49 High LAB PCO2 34-46 mm Hg pCO2 31 Low LAB PO2 85-95 mm Hg pO2 93 LAB BE mmol/L Base Excess 0 LAB HCO3 22-26 mmol/L Bicarbonate 23 LAB CO2CT 22.0-28.0 mmol/L CO2 Content 24 LAB O2HB 95-98 % 96 Oxyhemoglobin, Art. LAB COHB 0-5.0 % 1.0 Carboxyhemoglobin ,Art LAB MHGB 0.4-1.5 % 0.8 Methemoglobin LAB TEMP C 37.0 Temperature, Body LAB PHTC 7.35-7.45 pH, Temp 7.49 High Corrected LAB PCO2T 34-46 mm Hg pCO2, Temp 31 Low Correct LAB PO2T mm Hg pO2, Temp 93 Corrected LAB NAB 135-146 mmol/L 144 Sodium,Whole Bld LAB KWB 3.5-5.0 mmol/L Potassium, 3.6 Whole Bld LAB HGBB 13.0-17.0 g/dL 9.4 Low Hemoglobin,Total, ACL LAB HCTB 39.0-51.0 % Hematocrit, 29 Low ACL LAB IC 1.08-1.30 mmol/L Calcium, 1.18 Ion, WB LAB GLB 60-105 mg/dL 165 High Glucose,Whole Bld LAB LACT 0.5-2.2 mmol/L Lactate 1.7 LAB ABGCOM Blood Gas O2 Comm, Art Administration Result Comment: 10LNC HI FLOW LAB ACBDTE [id number] Notify Date, Art LAB ACBTME [id number] Notify Time, Art Performed By: #### ALLBG #### [facility] [address] [place] [address] CONSULT PROG Observed: 05/05/2018 Status: COMPLETED Source: [place] 5:15 AM [facility] REPOSITORY HNO ID: [id number] Author: Leena Li Service: Infectious Disease Author Type: Physician Type: Consult Progress Note Filed: 05/05/2018 4:04 PM Note Text: INFECTIOUS DISEASES PROGRESS NOTE Patient Name: Lazaro Villafana Account #: Data Unavailable Admission Date: 04/14/2018 Date of Evaluation: 05/05/2018 Time of Evaluation: 10:20 AM INTERVAL HPI: Afebrile for > 24 hours, fluctuating leukocytosis. S/p VATS decortication 05/01/18 with cultures in process but all stains/smears negative. On TPN. Broad-spectrum antibiotics continued. Steroids started 05/03/18. Extubated 05/04/18. Getting OOB to chair. Slightly confused, thinks he will have a procedure done today, perseverates on chest tubes. Metronidazole 04/15 Fluconazole 04/15 Vancomycin 04/20 Aztreonam 04/22 MEDICATIONS: Current hospital medications: potassium chloride iv piggyback 10 mEq/100mL 10 mEq INTRAVENOUS PRN potassium chloride iv piggyback 20 mEq/50 mL 20 mEq INTRAVENOUS PRN potassium chloride 40-120 mEq oral powder (KLOR-CON) 40-120 mEq ORAL/FEEDING TUBE PRN nitroglycerin 50 mg in D5W 250 mL 5-200 mcg/min INTRAVENOUS CONTINUOUS metoprolol 10 mg injection (LOPRESSOR) 10 mg INTRAVENOUS q 4 H PRN OLANZapine orally disintegrating 10 mg tab(s) (ZyPREXA ZYDIS) 10 mg ORAL q 12 H enalaprilat 1.25 mg injection (VASOTEC IV) 1.25 mg INTRAVENOUS q 6 H Parenteral Nutrition - Adult INTRAVENOUS ONCE TPN (2200 START) furosemide 20 mg injection (LASIX) 20 mg INTRAVENOUS q 8 H methylPREDNISolone sod succinate(PF) 40 mg injection (SOLU- Medrol) 40 mg INTRAVENOUS q 8 H dexmedetomidine 400 mcg in NaCl 0.9% 100 mL (PRECEDEX) 0.2- 1.5 mcg/kg/hr (Adjusted) INTRAVENOUS CONTINUOUS Chlorhexidine Gluconate 0.12 % 15 mL (PERIDEX) 15 mL ORAL q 6 H heparin 5,000 Units injection 5,000 Units SUBCUTANEOUS q 12 H insulin regular human iv bolus 2-10 Units 2-10 Units INTRAVENOUS PRN insulin regular 250 units in NaCl 0.9% 250 mL iv infusion - HVI CVICU NOMOGRAM 0.5-40 Units/hr INTRAVENOUS CONTINUOUS dextrose 50 % 12.5 g injection 12.5 g INTRAVENOUS PRN sodium chloride 0.65 % 2 [place] (AYR, OCEAN) 2 [place] EACH NOSTRIL 5X/DAY nasal ointment ([facility]) TOPICAL BID dextrose 5% in water iv infusion 5-30 mL/hr INTRAVENOUS CONTINUOUS lidocaine 5 % 1 Patch (LIDODERM) 1 Patch TRANSDERMAL DAILY lidocaine patch - REMOVE OTHER AT BEDTIME lidocaine - VERIFY PATCH OTHER q 8 H labetalol 10 mg injection syringe (NORMODYNE) 10 mg INTRAVENOUS q 2 H PRN vancomycin iv piggyback 1 g in D5W 200 mL (VANCOCIN) 1 g INTRAVENOUS q 12 HR aztreonam 2 g in D5W 100 mL MB+ (AZACTAM) 2 g INTRAVENOUS q 6 HR fluconazole 400 mg in NaCl (iso-osmotic) 200 mL (DIFLUCAN) 400 mg INTRAVENOUS DAILY vancomycin dosing and monitoring per pharmacy OTHER As Directed potassium chloride 20-80 mEq CUP 20-80 mEq ORAL/FEEDING TUBE PRN magnesium sulfate in water 2 g in sterile water 50 ml 2 g INTRAVENOUS PRN dextrose 40 % 15 g 15 g ORAL PRN glucagon 1 mg injection (GLUCAGEN) 1 mg INTRAMUSCULAR PRN NaCl 0.9% 3-5 mL 3-5 mL INTRAVENOUS q 12 H fentaNYL 50 mcg/mL 25-50 mcg injection (SUBLIMAZE) 25-50 mcg INTRAVENOUS q 1 H PRN metroNIDAZOLE 500 mg PREMIX piggyback (FLAGYL) 500 mg INTRAVENOUS q 8 H ipratropium-albuterol 3 mL nebulizer solution (DUONEB) 3 mL INHALATION q 4 H PRN pantoprazole 40 mg injection (PROTONIX) 40 mg INTRAVENOUS BID AC (0600/[id number]) PHYSICAL EXAM: BP 166/69 Pulse 68 Temp 36.6 ?C (97.9 ?F) (Oral) Resp 20 Ht 177.8 cm (5' 10) Wt 116.7 kg (257 lb 4.4 oz) SpO2 95% BMI 36.92 kg/m? Lines: Nontunnelled triple lumen 04/27 Left neck, L a-line, R nares NGT L nares nasal packing ?SKIN: No lesions noted. EYES: PERRLA NECK: L nontunnelled triple lumen catheter with no overlying erythema, swelling or warmth. LUNGS: clear to auscultation, no wheezes, or crackles. HEART: ?Regular rate/rhythm, normal heart sounds, and no murmurs. ABDOMEN: Soft, epigastric tenderness, hypoactive BS EXTREMITIES: Edema of all four extremities. Three right-sided chest tubes with dark fluid output, mcclain TPN, insulin infusion, nitroglycerin Labs: WBC 8.05, Hgb 9, Plt 149, Cr 0.83 Micro and radiology personally reviewed 04/14/18: Quantiferon gold testing negative for TB 04/14/18: Blood cultures 04/19 no growth 04/14/18: MSSA nasal swab positive 04/17/18: MSSA nasal swab positive 04/17/18: Blood cultures 2/2 no growth 04/20/18: Blood cultures 2/2 no growth 04/20/18: Tracheal aspirate cultures no organisms on gram stain and no growth on culture 04/22/18: Fungitell negative 04/23/18: Sputum cultures normal abby 04/24/18: Staphylococcal nasal swab negative 04/27/18: Blood cultures 2/2 no growth 04/30/18: HCV Ab negative 04/30/18: HIV Ag/Ab negative 05/01/18: Staphylococcal nasal swab negative 05/01/18: right pleural tissue gram stain negative, cultures all pending EGD 04/27/18: Impression: ? - Mucosal tear in the middle third of the esophagus ? healing well. ? - Portal hypertensive gastropathy. ? - Normal examined duodenum. ? - Feeding tube placement was successfully performed. ? Please confirm placement with KUB. ? - No specimens collected. Esophagram 04/27/18: PERSISTENT RIGHT MIDESOPHAGEAL PERFORATION DESCRIBED, CORRELATING WITH PRIOR. CT Chest 04/28/18: IMPRESSION: 1. ?Small to medium-sized right sided hydropneumothorax is stable in size since the prior chest CT dated 04/24/2018 with right thoracostomy tube in stable position. ?Adjacent dependent airspace opacity primarily in the right lower lobe has mildly improved in the interval and most likely represents either atelectasis or pneumonia/aspiration. 2. ?Previously seen bilateral airspace opacities, some of which were ground-glass or centrilobular in distribution have overall improved although have not resolved and may be due to either edema and/or infectious/inflammatory in etiology such as due to aspiration. ?No new airspace opacity has developed in the interval. 3. ?Persistent linear tract of gas extending from the right lateral mid to distal aspect of the esophagus which communicates with the right pleural space, in keeping with the known fistula as seen on the recent esophagram study. ?High attenuation material in the dependent right pleural space is nonspecific and may represent either contrast material from an esophagram study versus blood products. ?Correlate with the chest tube output for the presence of blood. 4. ?Stable mediastinal and right hilar lymphadenopathy, probably reactive. 5. ?Mild ascites in the upper abdomen, unchanged. Us Abd 05/04/18: IMPRESSION: PATENT TIPS. PATENT HEPATIC VASCULATURE WITH APPROPRIATELY DIRECTED FLOW. CIRRHOTIC LIVER MORPHOLOGY WITH SEQUELA OF PORTAL HYPERTENSION. ?NO HEPATIC LESION. SMALL-VOLUME ASCITES. IMPRESSION / PLAN 52 yo M with a h/o cirrhosis, EtoH related, CKD, COPD and reported + PPD in the past. Currently no clinical or imaging evidence of active pulmonary TB. Presenting with hemorrhagic shock secondary to hematemesis/esophageal tear c/b pneumomediastinum; no surgical intervention planned at this time. EGD 04/26/18 with reported improvement in esophageal tear (31-38cm). Esophageal stent placed last week, to be removed in four weeks. S/p TIPS 04/30/18: SUCCESSFUL TRANSJUGULAR JS-SYSTEMIC SHUNT. ?PATIENT WILL REQUIRE HEPATIC VASCULAR/TIPS ULTRASOUND FOR BASELINE VELOCITIES IN 4-5 DAYS. PORTOATIRAL GRADIENT WAS REDUCED FROM 18 MM HG TO 4 MM HG. ? 05/01/2018 Right VATS exploration, Right thoracotomy, Total right pleural decortication, primary repair of esophageal perforation with intercostal muscle flap, bronchoscopy and esophagoscopy. Surgical pathology pending. Plan: - continue vancomycin (goal trough 15-25), aztreonam, metronidazole, fluconazole as ordered for now - HIV Ag/Ab and Hepatitis C Antibody screening: negative Will discuss with attending, Perla Delgado PGY4 [facility] STAFF PHYSICIAN NOTE OF PERSONAL INVOLVEMENT IN CARE Events reviewed. Patient examined. Findings as outlined in the fellow's note above. Jang elements verified. ? Relevant lab data, microbiology and imaging data reviewed. Relevant images personally reviewed. ? Agree with assessment and plan as outlined in the fellow's note above. I was physically present for the critical portions of the service provided by the ID team. The management plan reflects my input. ? Marguerite Li MD Staff, Department of Infectious Disease Pager: [phone] GASA + ALL Collected: 05/05/2018 Status: F Source: [place] 3:57 AM [facility] USE [facility] REPOSITORY TYPE CODE TESTS RESULT OUT OF REFERENCE UNITS RANGE LAB PH 7.35-7.45 pH High 7.49 LAB PCO2 34-46 mm Hg pCO2 Low 29 LAB PO2 85-95 mm Hg pO2 94 LAB BE mmol/L Base Excess NEG 1 LAB HCO3 22-26 mmol/L Bicarbonate 22 LAB CO2CT 22.0-28.0 mmol/L CO2 Content 23 LAB O2HB 95-98 % Oxyhemoglobin, Art. 96 LAB COHB 0-5.0 % Carboxyhemoglobin,A 1.3 rt LAB MHGB 0.4-1.5 % Methemoglobin 1.0 LAB TEMP C Temperature, Body 37.0 LAB PHTC 7.35-7.45 pH, Temp High Corrected 7.49 LAB PCO2T 34-46 mm Hg pCO2, Temp Low Correct 29 LAB PO2T mm Hg pO2, Temp Corrected 94 LAB NAB 135-146 mmol/L Sodium,Whole Bld 143 LAB KWB 3.5-5.0 mmol/L Potassium, Whole Bld 3.8 LAB HGBB 13.0-17.0 g/dL Low Hemoglobin,Total,AC 8.5 L LAB HCTB 39.0-51.0 % Hematocrit, ACL Low 26 LAB IC 1.08-1.30 mmol/L Calcium, Ion, WB 1.16 LAB GLB 60-105 mg/dL Glucose,Whole Bld High 178 LAB LACT 0.5-2.2 mmol/L Lactate 1.3 Performed By: #### ALLBG #### [facility] [address] [place], [place] [address] XR CHEST 1V FRONTAL Observed: 05/05/2018 Status: F Source: [facility] 2:[address] [facility] REPOSITORY * * *Final Report* * * DATE OF EXAM: May 05 2018 2:05AM AGNIESZKA [id number] - XR CHEST 1V FRONTAL PORT / PROCEDURE REASON: Acute respiratory illness * * * * Physician Interpretation * * * * EXAMINATION: CHEST RADIOGRAPH (PORTABLE SINGLE VIEW AP) Exam Date/Time: 05/05/2018 2:05 AM Clinical History: Acute respiratory illness, MQ: [id number] Comparison: 1 day prior RESULT: See impression. IMPRESSION: Lines, tubes, and devices: Interval extubation. Nasogastric tube, left IJ central venous catheter and multiple right-sided chest tubes remain in place. Interval stent is identified over the lower third of the esophagus, extending into the proximal stomach. Lungs and pleura: There is persistent right-sided pleural effusion with atelectasis versus aspiration/pneumonia in the adjacent lung. Mild pulmonary venous congestion is noted. Findings are essentially stable from the prior exam. No large pneumothorax is identified. Cardiomediastinal silhouette: Stable cardiomediastinal silhouette. Other: Mild subcutaneous emphysema overlies the right lateral chest wall. Steel Turner: NIDHI Transcribe Date/Time: May 05 2018 6:53A Dictated by : SHILPI HTAKUR MD This examination was interpreted and the report reviewed and electronically signed by: SHILPI THAKUR MD on May 05 2018 6:54AM EST [id number] GASA + ALL Collected: 05/05/2018 Status: F Source: [place] 2:03 AM [facility] USE ONLY REPOSITORY TYPE CODE TESTS RESULT OUT OF REFERENCE UNITS RANGE LAB PH 7.35-7.45 pH High 7.49 LAB PCO2 34-46 mm Hg pCO2 Low 30 LAB PO2 85-95 mm Hg pO2 High 98 LAB BE mmol/L Base Excess 0 LAB HCO3 22-26 mmol/L Bicarbonate 23 LAB CO2CT 22.0-28.0 mmol/L CO2 Content 24 LAB O2HB 95-98 % Oxyhemoglobin, Art. 97 LAB COHB 0-5.0 % Carboxyhemoglobin,A 1.0 rt LAB MHGB 0.4-1.5 % Methemoglobin 0.6 LAB TEMP C Temperature, Body 37.0 LAB PHTC 7.35-7.45 pH, Temp High Corrected 7.49 LAB PCO2T 34-46 mm Hg pCO2, Temp Low Correct 30 LAB PO2T mm Hg pO2, Temp Corrected 98 LAB NAB 135-146 mmol/L Sodium,Whole Bld 143 LAB KWB 3.5-5.0 mmol/L Potassium, Whole Bld 3.7 LAB HGBB 13.0-17.0 g/dL Low Hemoglobin,Total,AC 9.0 L LAB HCTB 39.0-51.0 % Hematocrit, ACL Low 28 LAB IC 1.08-1.30 mmol/L Calcium, Ion, WB 1.18 LAB GLB 60-105 mg/dL Glucose,Whole Bld High 157 LAB LACT 0.5-2.2 mmol/L Lactate 1.3 Performed By: #### ALLBG #### [facility] [address] [place], [place] [address] GASA + ALL Collected: 05/05/2018 Status: F Source: [place] 12:04 AM [facility] USE ONLY REPOSITORY TYPE CODE TESTS RESULT OUT OF REFERENCE UNITS RANGE LAB PH 7.35-7.45 pH High 7.48 LAB PCO2 34-46 mm Hg pCO2 Low 31 LAB PO2 85-95 mm Hg pO2 High 99 LAB BE mmol/L Base Excess 0 LAB HCO3 22-26 mmol/L Bicarbonate 23 LAB CO2CT 22.0-28.0 mmol/L CO2 Content 24 LAB O2HB 95-98 % Oxyhemoglobin, Art. 96 LAB COHB 0-5.0 % Carboxyhemoglobin,A 1.1 rt LAB MHGB 0.4-1.5 % Methemoglobin 0.5 LAB TEMP C Temperature, Body 37.0 LAB PHTC 7.35-7.45 pH, Temp High Corrected 7.48 LAB PCO2T 34-46 mm Hg pCO2, Temp Low Correct 31 LAB PO2T mm Hg pO2, Temp Corrected 99 LAB NAB 135-146 mmol/L Sodium,Whole Bld 144 LAB KWB 3.5-5.0 mmol/L Potassium, Whole Bld 3.7 LAB HGBB 13.0-17.0 g/dL Low Hemoglobin,Total,AC 9.0 L LAB HCTB 39.0-51.0 % Hematocrit, ACL Low 28 LAB IC 1.08-1.30 mmol/L Calcium, Ion, WB 1.20 LAB GLB 60-105 mg/dL Glucose,Whole Bld High 145 LAB LACT 0.5-2.2 mmol/L Lactate 1.4 Performed By: #### ALLBG #### [facility] [address] [place], [place] [address] CBC AND DIFFERENTIAL Collected: 05/05/2018 Status: F Source: [place] 12:04 AM [facility] REPOSITORY TYPE CODE TESTS RESULT OUT OF REFERENCE UNITS RANGE LAB WBC 3.70-11.00 k/uL WBC 8.05 LAB RBC 4.20-6.00 m/uL Low RBC 3.08 LAB HGB 13.0-17.0 g/dL Low Hemoglobin 9.0 LAB HCT 39.0-51.0 % Low Hematocrit 27.7 LAB MCV 80.0-100.0 fL MCV 89.9 LAB MCH 26.0-34.0 pG MCH 29.2 LAB MCHC 30.5-36.0 g/dL MCHC 32.5 LAB RDWCV 11.5-15.0 % RDW-CV High 16.2 LAB PLTCT 150-400 k/uL Low Platelet Count 149 LAB MPV 9.0-12.7 fL MPV 11.4 LAB ANEUT % Neut% 88.5 LAB AANEUT 1.45-7.50 k/uL Abs Neut 7.12 LAB ALYMP % Lymph% 5.2 LAB AALYMP 1.00-4.00 k/uL Low Abs Lymph 0.42 LAB AMONO % Hendry% 6.2 LAB AAMONO <0.87 k/uL Abs Hendry 0.50 LAB AEOS % Eosin% 0.0 LAB AAEOS <0.46 k/uL Abs Eosin <0.03 LAB ABASO % Baso% 0.1 LAB AABASO <0.11 k/uL Abs Baso <0.03 LAB AUNRBC 0 /100 WBC NRBCs 0.0 LAB ABNRBC <0.01 k/uL Absolute nRBC <0.01 LAB DTYP DTYPE Auto Diff Performed By: #### CBCDIF, PT, PTT, CMP, MG1, PHOS #### [facility] [address] [place] [address] PROTIME Collected: 05/05/2018 Status: F Source: [place] 12:[address] [facility] REPOSITORY TYPE CODE TESTS RESULT OUT OF RANGE REFERENCE UNITS LAB PSEC 9.7-13.0 sec High PT Sec 15.4 LAB INR 0.9-1.3 High PT INR 1.5 Result Comment: Vitamin K Antagonist (VKA) Therapeutic Range: INR 2 to 3 (Target INR of 2.5) Note: For patients treated with VKA drugs, such as warfarin, the [place] [employer] 2012 Guideline recommends a therapeutic INR range of 2 to 3 (target INR of 2.5). This recommendation includes high-risk patients with antiphospholipid syndrome with previous arterial or venous thromboembolism, current-generation mechanical or bioprosthetic aortic heart valve replacement. Note: Patients with mechanical aortic valve replacement and additional risk factors for thromboembolic events (atrial fibrillation, previous thromboembolism, LV dysfunction, hypercoagulable conditions) or an older generation mechanical AVR (i.e., ball in-Cage) or any mechanical MVR should have a INR therapeutic range of 2.5 to 3.5 (target INR of 3). Serjio GH, et al. Chest 2012, 141:7S-47S Rashida VAZQUEZ et al. [facility] 2017, 70: 252-289 Performed By: #### CBCDIF, PT, PTT, CMP, MG1, PHOS #### [facility] [address] [place], [place] [address] 780 APTT Collected: 05/05/2018 Status: F Source: [place] 12:04 AM [facility] REPOSITORY TYPE CODE TESTS RESULT OUT OF RANGE REFERENCE UNITS LAB APTT 23.0-32.4 sec APTT 32.2 Result Comment: Unfractionated Heparin Therapeutic Ranges: Standard Heparin Nomogram: 53 to 78 seconds (anti-Xa level of 0.3 to 0.7 U/ml) Low Dose/ACS Nomogram: 49 to 67 seconds (anti-Xa level of 0.2 to 0.5 U/ml) Stroke Treatment Nomogram: 49 to 67 seconds (anti-Xa level of 0.2 to 0.5 U/ml) Note: The APTT therapeutic range has been determined for the current lot of laboratory APTT reagent in use throughout the [facility]. Performed By: #### CBCDIF, PT, PTT, CMP, MG1, PHOS #### [facility] [address] [place], [place] [address] COMP METABOLIC PANEL Collected: 05/05/2018 Status: F Source: [place] 12:04 [facility] REPOSITORY TYPE CODE TESTS RESULT OUT OF REFERENCE UNITS RANGE LAB TP 6.3-8.0 g/dL Low Protein, Total 5.8 LAB ALB 3.9-4.9 g/dL Low Albumin 2.0 LAB CA 8.5-10.2 mg/dL Low Calcium, Total 7.9 LAB TBIL 0.2-1.3 mg/dL Bilirubin, Total 0.5 LAB ALKP 38-113 U/L Alkaline Phosphatase 70 LAB AST 14-40 U/L AST High 89 LAB GLU 74-99 mg/dL Glucose High 148 Result Comment: The [place] [employer] Association (ADA) provides guidance for cutoff values for fasting glucose and random glucose. The ADA defines fasting as no caloric intake for at least 8 hours. Fas ting plasma glucose results between 100 to 125 mg/dL indicate increased risk for diabetes (prediabetes). Fasting plasma glucose results greater than or equal to 126 mg/dL meet the criteria for diagnosis of diabetes. In the absence of unequivocal hyperglycemia, results should be confirmed by repeat testing. In a patient with classic symptoms of hyperglycemia or hyperglycemic crisis, random plasma glucose results greater than or equal to 200 mg/dL meet the criteria for diagnosis of diabetes. Reference: Standards of Medical Care in Diabetes 2016, [place] [employer]. Diabetes Care. 2016.39(Suppl 1). LAB BUN 9-24 mg/dL BUN High 59 LAB CRET 0.73-1.22 mg/dL Creatinine 0.83 LAB NA 136-144 mmol/L Sodium High 145 LAB K 3.7-5.1 mmol/L Potassium 3.8 LAB CL 97-105 mmol/L Chloride High 110 LAB CO2 22-30 mmol/L CO2 24 LAB AGAP 9-18 mmol/L Anion Gap 11 LAB ALT 10-54 U/L ALT High 62 LAB GFRAA eGFR- Amer. >60 LAB GFRNAA . eGFR-All Other Races >60 Result Comment: eGFR (Estimated GFR) Units of measure: mL/min/1.73 meters squared eGFR is derived from the reexpressed MDRD Study equation using the following parameters: serum creatinine, age, gender and race. The creatinine assay has been calibrated to be traceable to IDMS. An eGFR <60 mL/min/1.73m2 for >3 months is consistent with chronic kidney disease. Refer to KDOQI guidelines for clinical interpretation. In patients with unstable renal function, e.g. those with acute kidney injury, the eGFR may not accurately reflect actual GFR. Performed By: #### CBCDIF, PT, PTT, CMP, MG1, PHOS #### [facility] [address] [place] [address] MAGNESIUM Collected: 05/05/2018 Status: F Source: [place] 12:04 AM [facility] REPOSITORY TYPE CODE TESTS RESULT OUT OF REFERENCE UNITS RANGE LAB MG 1.7-2.3 mg/dL Magnesium 1.9 Performed By: #### CBCDIF, PT, PTT, CMP, MG1, PHOS #### [facility] [address] [place] [id number] PHOSPHORUS Collected: 05/05/2018 Status: F Source: [place] 12:04 AM [facility] REPOSITORY TYPE CODE TESTS RESULT OUT OF REFERENCE UNITS RANGE LAB PHOS 2.7-4.8 mg/dL Phosphorus 4.5 Performed By: #### CBCDIF, PT, PTT, CMP, MG1, PHOS #### [facility] [address] [place], [place] [address] TYPE AND SCREEN Collected: 05/05/2018 Status: F Source: [place] 12:00 AM [facility] REPOSITORY TYPE CODE TESTS RESULT OUT OF REFERENCE UNITS RANGE LAB %ABR B ABO/RH(D) POSITIVE LAB % Antibody POS Screen Performed By: #### TSCR #### [facility] [address] [place], [place] [address] GASA + ALL Collected: 05/04/2018 Status: F Source: [place] FOR 9:46 PM [facility] USE ONLY REPOSITORY TYPE CODE TESTS RESULT OUT OF REFERENCE UNITS RANGE LAB PH 7.35-7.45 pH High 7.47 LAB PCO2 34-46 mm Hg pCO2 Low 31 LAB PO2 85-95 mm Hg pO2 90 LAB BE mmol/L Base Excess 0 LAB HCO3 22-26 mmol/L Bicarbonate 23 LAB CO2CT 22.0-28.0 mmol/L CO2 Content 23 LAB O2HB 95-98 % Oxyhemoglobin, Art. 96 LAB COHB 0-5.0 % Carboxyhemoglobin,A 0.1 rt LAB MHGB 0.4-1.5 % Methemoglobin 0.5 LAB TEMP C Temperature, Body 37.0 LAB PHTC 7.35-7.45 pH, Temp High Corrected 7.47 LAB PCO2T 34-46 mm Hg pCO2, Temp Low Correct 31 LAB PO2T mm Hg pO2, Temp Corrected 90 LAB NAB 135-146 mmol/L Sodium,Whole Bld 145 LAB KWB 3.5-5.0 mmol/L Potassium, Whole Bld 3.5 LAB HGBB 13.0-17.0 g/dL Low Hemoglobin,Total,AC 9.3 L LAB HCTB 39.0-51.0 % Hematocrit, ACL Low 29 LAB IC 1.08-1.30 mmol/L Calcium, Ion, WB 1.23 LAB GLB 60-105 mg/dL Glucose,Whole Bld High 154 LAB LACT 0.5-2.2 mmol/L Lactate 1.5 Performed By: #### ALLBG #### [facility] [address] [place], [place] [address] GASA + ALL Collected: 05/04/2018 Status: F Source: [place] 7:24 PM [facility] USE ONLY REPOSITORY TYPE CODE TESTS RESULT OUT OF REFERENCE UNITS RANGE LAB PH 7.35-7.45 pH High 7.48 LAB PCO2 34-46 mm Hg pCO2 Low 30 LAB PO2 85-95 mm Hg pO2 High 97 LAB BE mmol/L Base Excess NEG 1 LAB HCO3 22-26 mmol/L Bicarbonate 22 LAB CO2CT 22.0-28.0 mmol/L CO2 Content 23 LAB O2HB 95-98 % Oxyhemoglobin, Art. 96 LAB COHB 0-5.0 % Carboxyhemoglobin,A 0.9 rt LAB MHGB 0.4-1.5 % Methemoglobin 0.9 LAB TEMP C Temperature, Body 37.0 LAB PHTC 7.35-7.45 pH, Temp High Corrected 7.48 LAB PCO2T 34-46 mm Hg pCO2, Temp Low Correct 30 LAB PO2T mm Hg pO2, Temp Corrected 97 LAB NAB 135-146 mmol/L Sodium,Whole Bld 145 LAB KWB 3.5-5.0 mmol/L Potassium, Whole Low Bld 3.2 LAB HGBB 13.0-17.0 g/dL Low Hemoglobin,Total,AC 8.8 L LAB HCTB 39.0-51.0 % Hematocrit, ACL Low 27 LAB IC 1.08-1.30 mmol/L Calcium, Ion, WB 1.20 LAB GLB 60-105 mg/dL Glucose,Whole Bld High 188 LAB LACT 0.5-2.2 mmol/L Lactate 1.6 Performed By: #### ALLBG #### [facility] [address] [place], [place] [address] GASA + ALL Collected: 05/04/2018 Status: F Source: [place] 6:13 PM [facility] REPOSITORY TYPE CODE TESTS RESULT OUT OF REFERENCE UNITS RANGE LAB PH 7.35-7.45 pH High 7.49 LAB PCO2 34-46 mm Hg pCO2 Low 28 LAB PO2 85-95 mm Hg pO2 88 LAB BE mmol/L Base Excess NEG 2 LAB HCO3 22-26 mmol/L Bicarbonate Low 21 LAB CO2CT 22.0-28.0 mmol/L CO2 Content 22 LAB O2HB 95-98 % Oxyhemoglobin, Art. 96 LAB COHB 0-5.0 % Carboxyhemoglobin,A 1.5 rt LAB MHGB 0.4-1.5 % Methemoglobin Low 0.3 LAB TEMP C Temperature, Body 37.0 LAB PHTC 7.35-7.45 pH, Temp High Corrected 7.49 LAB PCO2T 34-46 mm Hg pCO2, Temp Low Correct 28 LAB PO2T mm Hg pO2, Temp Corrected 88 LAB NAB 135-146 mmol/L Sodium,Whole Bld 144 LAB KWB 3.5-5.0 mmol/L Potassium, Whole Low Bld 3.4 LAB HGBB 13.0-17.0 g/dL Low Hemoglobin,Total,AC 8.5 L LAB HCTB 39.0-51.0 % Hematocrit, ACL Low 26 LAB IC 1.08-1.30 mmol/L Calcium, Ion, WB 1.15 LAB GLB 60-105 mg/dL Glucose,Whole Bld High 216 LAB LACT 0.5-2.2 mmol/L Lactate 1.3 Performed By: #### ALLBG #### [facility] [address] [place], [place] [address] NUTRITION Observed: 05/04/2018 Status: COMPLETED Source: [place] 5:15 PM [facility] REPOSITORY HNO ID: [id number] Author: Sari Weston Service: NST-Nutrition Support Team Author Type: Registered Dietitian Type: Nutrition Filed: 05/04/2018 5:27 PM Note Text: NUTRITION SUPPORT TEAM PROGRESS NOTE SERVICE DATE: 05/04/2018 SERVICE TIME: 1210 RECOMMENDED DIAGNOSIS: NO MALNUTRITION IDENTIFIED per Registered Dietitian on 04/28 NUTRITION CARE PLAN Intervention: 1. ?Continue TPN ?- PN to provide 120gms 15% AA, 1700 dextrose calories, 1800ml?at 75ml/hr ?- orders pended with incr MgSO4, reduced NaPhos, incr Na+ acetate, MVI, MTE, 70 - 85u insulin (1:4 ratio), 100mg thiamine 2. ?250ml IVPB lipids 20% fat emulsion MWF started 04/27; d/c'd 05/02 with pt on propofol; consider restart 05/06 with propofol off ? Monitor and Evaluation: Goal: Meet >75% of estimated needs Monitor fluid/electrolyte balance Monitor labs, I/Os, vital signs, weight ? Discharge Nutrition Recommendations:? To be determined ? 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 Patient initially presented with hematemesis and melena with accompanying dizziness and shortness of breath. Transferred to [facility] on 04/14 for further management. s/p EGD 04/15?which showed a deep esophageal tear. ?Plan for a minimum of NPO x 2 weeks. ?04/16 Right chest tube placed for effusion. ?Esophagram (04/27/18): Persistent right mid-esophageal perforation; GI c/s and plan for esophageal stent placement tomorrow. s/p EGD 04/29: Esophageal stent successfully placed in Q3. Acute pulmonary insufficiency following non-thoracic surgery requiring intubation. Respiratory status improved with placement of CT to sxn. s/p TIPS 04/30. Interval History: extubated today; propofol off Pt is afebrile with Tmax: 36.6 Resp: hi flow O2 mask I/O's: Intake/Output Summary (Last 24 hours) at 05/04/18 1721 Last data filed at 05/04/18 1530 Gross per 24 hour Intake 4290.8 ml Output 4130 ml Net 160.8 ml overall +8414.3 Abdomen: not assessed Last BM: ?05/01 Enteral access: ?n/a; NG to LIWS Parenteral access: ?left IJ TLC placed 04/27 Labs: hyperchloremia, Mg suboptimal, hypocapnia, lactate 1.1, ionized calcium 1.10 Blood Gases: pH 7.48, pCO2 26, [id number] Whole Blood glucose: 219, 190, 155, 137, 176, 178 Cultures: n/a Imaging: n/a Nutritional Intake: Intake History BI DATA ARCHITECT: Unable to determine Current intake: 04/17: ?Average 5 day intakes meeting <50% of estimated energy need.s started on PN 04/17 due to esophageal tear, plan for NPO x 2 weeks 04/18: currently goal kcals, PN 940 kcals, 110 g pro + propofol 765 kcals/day 04/20: ?TPN wi orders 04/17 - 1/1 to provide 110gms protein and 940 claories + additional calories from propofol (04/19 provided 626 calories) 04/21 - 04/22: ?PN with orders 04/20 - 04/21?to provide 100gms protein and 1000 calories + additional calories from propofol 04/25: ?PN with orders 04/22 - 04/24 to provide 110gms protein and 1040 calories 04/26 - 04/27: ?PN with orders 04/25 - 04/26?to provide 120gms protein and 1600 calories 04/28: ?PN with orders 04/27 to provide 120 gms protein and 1650 calories 04/29 - 05/02:?PN with orders 04/28 - 05/01 to provides 120 g protein and 1650 kcals + additonal calories from propofol; propofol restarted 05/03: TPN - providing 1460 calories, 120 grams protein 05/04: TPN with orders 05/02 - 05/03 120gms protein and 1460 calories ? 250ml IVPB lipids 20% fat emulsion MWF started 04/27; d/c today - 05/02 with pt on propofol. Current Diet Order DIET NPO Lines and Drains: Central Line Double Lumen 05/01/18 Right Groin Through Introducer (Active) Central Line Triple Lumen 04/27/18 Non-tunneled Left Neck (Active) Introducer 05/01/18 Right Groin (Active) GI Feed/Drain 05/01/18 Assessment Nasogastric Right Naris 14 Fr (Active) Indwelling Urinary Catheter 04/29/18 2030 Mcclain 18 Fr (Active) Chest Tube 05/01/18 1218 Right Pleural Tube #1 (Active) Chest Tube 05/01/18 1219 Right Pleural 28 Fr Tube #2 (Active) Chest Tube 05/01/18 1219 Right Pleural Tube #3 (Active) Height: 177.8 cm (5' 10) Admission Weight: 106.1 kg (233 lb 14.5 oz) Current Weight: 118.2 kg (260 lb 9.3 oz) Body mass index is 37.39 kg/m?. Usual body weight ?Unable to determine? No weight history available. Estimated nutrition goals: [place] body weight: 75.4 kg Dosing weight: 106?kg (04/14; BMI 33.5kg/m2)?? Calorie needs [id number]?kilocalories determined by = 15-20?kcals/kg ?Dosing?weight? Protein needs: 90 - 121?grams determined by 1.2 -1.6g/kg ideal?weight?- due to CKD Temp (24hrs), Av.6 ?C (97.9 ?F), Min:36.6 ?C (97.9 ?F), Max:36.6 ?C (97.9 ?F) Recent Labs 05/04/18 0005 GLUC 223* BUN 51* CREAT 0.89 NA 141 K 4.5 CHLOR 109* CO2 21* ALB 2.1* P 4.4 HB 10.2* HCT 31.4* WBC 6.97 MG 1.9 Surgical Incision 05/01/18 Thoracotomy - Right (Active) Dressing Status None: Open to Air 05/04/2018 7:30 AM Frequency of Dressing Change Daily 05/03/2018 1:30 AM Dressing Change Due 05/04/18 05/03/2018 7:30 AM Dressing /Treatment Type Dry Sterile Dressing 05/03/2018 7:30 AM Incision Closures Intact 05/04/2018 7:30 AM Drainage Description None 05/04/2018 7:30 AM Drainage Amount None 05/04/2018 7:30 AM Edges Intact 05/04/2018 7:30 AM Hematoma No 05/04/2018 7:30 AM Number of days: 3 Vitamin and Mineral Labs in the past year:No results for input(s): CHROMIUM, COPPER, MANGANESE, SELENIUM, VITAMINA, VITB1, VITB2, VITB6, B12, METHYLMAL, VITD25, VITAMINE, VITAK, ZINC, TIBC, FE, JOHANNY in the last 8784 hours. MNT Billing Type: Re-assess/15 min 2 units SIGNATURE: Sari Weston RD [facility] PATIENT NAME: Lazaro Villafana DATE: May 04, 2018 TIME: 5:15 PM PAGER: [phone] GASA + ALL Collected: 05/04/2018 Status: F Source: [place] FOR 3:51 PM [facility] USE ONLY REPOSITORY TYPE CODE TESTS RESULT OUT OF REFERENCE UNITS RANGE LAB PH 7.35-7.45 pH High 7.48 LAB PCO2 34-46 mm Hg pCO2 Low 26 LAB PO2 85-95 mm Hg pO2 High 103 LAB BE mmol/L Base Excess NEG 3 LAB HCO3 22-26 mmol/L Bicarbonate Low 19 LAB CO2CT 22.0-28.0 mmol/L CO2 Content Low 20 LAB O2HB 95-98 % Oxyhemoglobin, Art. 96 LAB COHB 0-5.0 % Carboxyhemoglobin,A 1.1 rt LAB MHGB 0.4-1.5 % Methemoglobin 0.8 LAB TEMP C Temperature, Body 37.0 LAB PHTC 7.35-7.45 pH, Temp High Corrected 7.48 LAB PCO2T 34-46 mm Hg pCO2, Temp Low Correct 26 LAB PO2T mm Hg pO2, Temp Corrected 103 LAB NAB 135-146 mmol/L Sodium,Whole Bld 143 LAB KWB 3.5-5.0 mmol/L Potassium, Whole Low Bld 3.2 LAB HGBB 13.0-17.0 g/dL Low Hemoglobin,Total,AC 8.0 L LAB HCTB 39.0-51.0 % Hematocrit, ACL Low 25 LAB IC 1.08-1.30 mmol/L Calcium, Ion, WB 1.10 LAB GLB 60-105 mg/dL Glucose,Whole Bld High 178 LAB LACT 0.5-2.2 mmol/L Lactate 1.1 Performed By: #### ALLBG #### [facility] [address] [place] [phone] GASA + ALL Collected: 05/04/2018 Status: F Source: [place] FOR 12:44 PM [facility] USE ONLY REPOSITORY TYPE CODE TESTS RESULT OUT OF REFERENCE UNITS RANGE LAB PH 7.35-7.45 pH High 7.48 LAB PCO2 34-46 mm Hg pCO2 Low 28 LAB PO2 85-95 mm Hg pO2 High 105 LAB BE mmol/L Base Excess NEG 2 LAB HCO3 22-26 mmol/L Bicarbonate Low 21 LAB CO2CT 22.0-28.0 mmol/L CO2 Content 22 LAB O2HB 95-98 % Oxyhemoglobin, Art. 97 LAB COHB 0-5.0 % Carboxyhemoglobin,A 1.2 rt LAB MHGB 0.4-1.5 % Methemoglobin 0.7 LAB TEMP C Temperature, Body 37.0 LAB PHTC 7.35-7.45 pH, Temp High Corrected 7.48 LAB PCO2T 34-46 mm Hg pCO2, Temp Low Correct 28 LAB PO2T mm Hg pO2, Temp Corrected 105 LAB NAB 135-146 mmol/L Sodium,Whole Bld 141 LAB KWB 3.5-5.0 mmol/L Potassium, Whole Bld 3.5 LAB HGBB 13.0-17.0 g/dL Low Hemoglobin,Total,AC 8.4 L LAB HCTB 39.0-51.0 % Hematocrit, ACL Low 26 LAB IC 1.08-1.30 mmol/L Calcium, Ion, WB 1.09 LAB GLB 60-105 mg/dL Glucose,Whole Bld High 176 LAB LACT 0.5-2.2 mmol/L Lactate 1.2 Performed By: #### ALLBG #### [facility] [address] [place], [place] [address] CONSULT PROG Observed: 05/04/2018 Status: COMPLETED Source: [place] 10:44 AM [facility] REPOSITORY HNO ID: [id number] Author: Leena Li Service: Infectious Disease Author Type: Physician Type: Consult Progress Note Filed: 05/04/2018 4:23 PM Note Text: INFECTIOUS DISEASES PROGRESS NOTE Patient Name: Lazaro Villafana Account #: Data Unavailable Admission Date: 04/14/2018 Date of Evaluation: 05/04/2018 Time of Evaluation: 10:20 AM INTERVAL HPI: Afebrile for > 24 hours, fluctuating leukocytosis. S/p VATS decortication 05/01/18 with cultures in process but all stains/smears negative. On TPN. Broad-spectrum antibiotics continued. Extubate this AM. Plans for right femoral central venous catheter to be removed today. Abdominal ultrasound completed today. Metronidazole 04/15 Fluconazole 04/15 Vancomycin 04/20 Aztreonam 04/22 MEDICATIONS: Current hospital medications: nitroglycerin 50 mg in D5W 250 mL 5-200 mcg/min INTRAVENOUS CONTINUOUS metoprolol 10 mg injection (LOPRESSOR) 10 mg INTRAVENOUS q 4 H PRN OLANZapine orally disintegrating 10 mg tab(s) (ZyPREXA ZYDIS) 10 mg ORAL q 12 H enalaprilat 1.25 mg injection (VASOTEC IV) 1.25 mg INTRAVENOUS q 6 H methylPREDNISolone sod succinate(PF) 40 mg injection (SOLU- Medrol) 40 mg INTRAVENOUS q 8 H Parenteral Nutrition - Adult INTRAVENOUS ONCE TPN (2200 START) dexmedetomidine 400 mcg in NaCl 0.9% 100 mL (PRECEDEX) 0.2- 1.5 mcg/kg/hr (Adjusted) INTRAVENOUS CONTINUOUS Chlorhexidine Gluconate 0.12 % 15 mL (PERIDEX) 15 mL ORAL q 6 H heparin 5,000 Units injection 5,000 Units SUBCUTANEOUS q 12 H insulin regular human iv bolus 2-10 Units 2-10 Units INTRAVENOUS PRN insulin regular 250 units in NaCl 0.9% 250 mL iv infusion - HVI CVICU NOMOGRAM 0.5-40 Units/hr INTRAVENOUS CONTINUOUS dextrose 50 % 12.5 g injection 12.5 g INTRAVENOUS PRN perflutren lipid microspheres 1.1 mg/mL 1.3 mL injection (DEFINITY) 1.3 mL INTRAVENOUS DIRECTED PRN sodium chloride 0.65 % 2 [place] (AYR, OCEAN) 2 [place] EACH NOSTRIL 5X/DAY nasal ointment ([facility]) TOPICAL BID dextrose 5% in water iv infusion 5-30 mL/hr INTRAVENOUS CONTINUOUS lidocaine 5 % 1 Patch (LIDODERM) 1 Patch TRANSDERMAL DAILY lidocaine patch - REMOVE OTHER AT BEDTIME lidocaine - VERIFY PATCH OTHER q 8 H labetalol 10 mg injection syringe (NORMODYNE) 10 mg INTRAVENOUS q 2 H PRN vancomycin iv piggyback 1 g in D5W 200 mL (VANCOCIN) 1 g INTRAVENOUS q 12 HR aztreonam 2 g in D5W 100 mL MB+ (AZACTAM) 2 g INTRAVENOUS q 6 HR fluconazole 400 mg in NaCl (iso-osmotic) 200 mL (DIFLUCAN) 400 mg INTRAVENOUS DAILY vancomycin dosing and monitoring per pharmacy OTHER As Directed potassium chloride iv piggyback 20 mEq/100 mL 20 mEq INTRAVENOUS PRN potassium chloride 20-80 mEq CUP 20-80 mEq ORAL/FEEDING TUBE PRN magnesium sulfate in water 2 g in sterile water 50 ml 2 g INTRAVENOUS PRN dextrose 40 % 15 g 15 g ORAL PRN glucagon 1 mg injection (GLUCAGEN) 1 mg INTRAMUSCULAR PRN NaCl 0.9% 3-5 mL 3-5 mL INTRAVENOUS q 12 H fentaNYL 50 mcg/mL 25-50 mcg injection (SUBLIMAZE) 25-50 mcg INTRAVENOUS q 1 H PRN metroNIDAZOLE 500 mg PREMIX piggyback (FLAGYL) 500 mg INTRAVENOUS q 8 H ipratropium-albuterol 3 mL nebulizer solution (DUONEB) 3 mL INHALATION q 4 H PRN pantoprazole 40 mg injection (PROTONIX) 40 mg INTRAVENOUS BID AC (0600/1600) PHYSICAL EXAM: BP 166/69 Pulse 75 Temp 36.6 ?C (97.9 ?F) (Oral) Resp 24 Ht 177.8 cm (5' 10) Wt 118.2 kg (260 lb 9.3 oz) SpO2 96% BMI 37.39 kg/m? Lines: Nontunnelled triple lumen 04/27 Left neck, L a-line, R nares NGT L nares nasal packing ?SKIN: No lesions noted. EYES: PERRLA NECK: L nontunnelled triple lumen catheter with no overlying erythema, swelling or warmth. LUNGS: clear to auscultation, no wheezes, or crackles. HEART: ?Regular rate/rhythm, normal heart sounds, and no murmurs. ABDOMEN: Soft, epigastric tenderness, hypoactive BS EXTREMITIES: Edema of all four extremities. Three right-sided chest tubes with dark fluid output, mcclain TPN, insulin infusion, precedex Labs: WBC 6.97, Hgb 10.2, Plt 125, Cr 0.89 Micro and radiology personally reviewed 04/14/18: Quantiferon gold testing negative for TB 04/14/18: Blood cultures 04/19 no growth 04/14/18: MSSA nasal swab positive 04/17/18: MSSA nasal swab positive 04/17/18: Blood cultures 2/2 no growth 04/20/18: Blood cultures 2/2 no growth 04/20/18: Tracheal aspirate cultures no organisms on gram stain and no growth on culture 04/22/18: Fungitell negative 04/23/18: Sputum cultures normal abby 04/24/18: Staphylococcal nasal swab negative 04/27/18: Blood cultures 2/2 no growth 04/30/18: HCV Ab negative 04/30/18: HIV Ag/Ab negative 05/01/18: Staphylococcal nasal swab negative 05/01/18: right pleural tissue gram stain negative, cultures all pending EGD 04/27/18: Impression: ? - Mucosal tear in the middle third of the esophagus ? healing well. ? - Portal hypertensive gastropathy. ? - Normal examined duodenum. ? - Feeding tube placement was successfully performed. ? Please confirm placement with KUB. ? - No specimens collected. Esophagram 04/27/18: PERSISTENT RIGHT MIDESOPHAGEAL PERFORATION DESCRIBED, CORRELATING WITH PRIOR. CT Chest 04/28/18: IMPRESSION: 1. ?Small to medium-sized right sided hydropneumothorax is stable in size since the prior chest CT dated 04/24/2018 with right thoracostomy tube in stable position. ?Adjacent dependent airspace opacity primarily in the right lower lobe has mildly improved in the interval and most likely represents either atelectasis or pneumonia/aspiration. 2. ?Previously seen bilateral airspace opacities, some of which were ground-glass or centrilobular in distribution have overall improved although have not resolved and may be due to either edema and/or infectious/inflammatory in etiology such as due to aspiration. ?No new airspace opacity has developed in the interval. 3. ?Persistent linear tract of gas extending from the right lateral mid to distal aspect of the esophagus which communicates with the right pleural space, in keeping with the known fistula as seen on the recent esophagram study. ?High attenuation material in the dependent right pleural space is nonspecific and may represent either contrast material from an esophagram study versus blood products. ?Correlate with the chest tube output for the presence of blood. 4. ?Stable mediastinal and right hilar lymphadenopathy, probably reactive. 5. ?Mild ascites in the upper abdomen, unchanged. IMPRESSION / PLAN 52 yo M with a h/o cirrhosis, EtoH related, CKD, COPD and reported + PPD in the past. Currently no clinical or imaging evidence of active pulmonary TB. Presenting with hemorrhagic shock secondary to hematemesis/esophageal tear c/b pneumomediastinum; no surgical intervention planned at this time. EGD 04/26/18 with reported improvement in esophageal tear (31-38cm). Esophageal stent placed last week, to be removed in four weeks. Maintained on TPN. Intubated, sedated. S/p TIPS 04/30/18: SUCCESSFUL TRANSJUGULAR JS-SYSTEMIC SHUNT. ?PATIENT WILL REQUIRE HEPATIC VASCULAR/TIPS ULTRASOUND FOR BASELINE VELOCITIES IN 4-5 DAYS. PORTOATIRAL GRADIENT WAS REDUCED FROM 18 MM HG TO 4 MM HG. ? 05/01/2018 Right VATS exploration, Right thoracotomy, Total right pleural decortication, primary repair of esophageal perforation with intercostal muscle flap, bronchoscopy and esophagoscopy. Surgical pathology pending. Plan: - continue vancomycin (goal trough 15-25), aztreonam, metronidazole, fluconazole as ordered for now until decortication tissue cultures finalize - HIV Ag/Ab and Hepatitis C Antibody screening: negative Will discuss with attending, Perla Delgado PGY4 [facility] STAFF PHYSICIAN NOTE OF PERSONAL INVOLVEMENT IN CARE Events reviewed. Patient examined. Findings as outlined in the fellow's note above. Jang elements verified. ? Relevant lab data, microbiology and imaging data reviewed. Relevant images personally reviewed. ? Agree with assessment and plan as outlined in the fellow's note above. I was physically present for the critical portions of the service provided by the ID team. The management plan reflects my input. ? Marguerite Li MD Staff, Department of Infectious Disease Pager: [phone] GASA + ALL Collected: 05/04/2018 Status: F Source: [facility] 9:37 AM [facility] USE ONLY REPOSITORY TYPE CODE TESTS RESULT OUT OF REFERENCE UNITS RANGE LAB PH 7.35-7.45 pH High 7.48 LAB PCO2 34-46 mm Hg pCO2 Low 29 LAB PO2 85-95 mm Hg pO2 Low 82 LAB BE mmol/L Base Excess NEG 2 LAB HCO3 22-26 mmol/L Bicarbonate Low 21 LAB CO2CT 22.0-28.0 mmol/L CO2 Content 22 LAB O2HB 95-98 % Oxyhemoglobin, Art. 95 LAB COHB 0-5.0 % Carboxyhemoglobin,A 1.4 rt LAB MHGB 0.4-1.5 % Methemoglobin Low 0.3 LAB TEMP C Temperature, Body 37.0 LAB PHTC 7.35-7.45 pH, Temp High Corrected 7.48 LAB PCO2T 34-46 mm Hg pCO2, Temp Low Correct 29 LAB PO2T mm Hg pO2, Temp Corrected 82 LAB NAB 135-146 mmol/L Sodium,Whole Bld 143 LAB KWB 3.5-5.0 mmol/L Potassium, Whole Bld 3.7 LAB HGBB 13.0-17.0 g/dL Low Hemoglobin,Total,AC 8.8 L LAB HCTB 39.0-51.0 % Hematocrit, ACL Low 27 LAB IC 1.08-1.30 mmol/L Calcium, Ion, WB 1.17 LAB GLB 60-105 mg/dL Glucose,Whole Bld High 137 LAB LACT 0.5-2.2 mmol/L Lactate 1.4 Performed By: #### ALLBG #### [facility] [address] [place], [place] [address] US DOPPLER COMPLETE Observed: 05/04/2018 Status: F Source: [place] 9:[address] [facility] REPOSITORY * * *Final Report* * * DATE OF EXAM: May 04 2018 9:15AM [facility] [place] US DOPPLER COMPLETE / PROCEDURE REASON: Cirrhosis or Fatty Liver * * * * Physician Interpretation * * * * LIVER VASCULAR ULTRASOUND WITH DOPPLER IMAGING HISTORY: Status post TIPS 04/30/2018 COMPARISON: None. TECHNIQUE: Sonography of the liver with color and spectral Doppler imaging of the hepatic vasculature was performed. Images were obtained and stored in a permanent archive. RESULT: SONOGRAPHIC FINDINGS: Pancreas: Normal sonographic appearance. Portions obscured: tail Liver: Echotexture: Coarse Echogenicity: Normal Surface contour: Nodular Lesions: None. Biliary: No intrahepatic biliary duct dilation. CBD: 0.2 cm at the hilum. Gallbladder: Normal caliber -Contents: Sludge present -Wall: Nonspecific gallbladder wall thickening present. Right Kidney: No hydronephrosis. Spleen: The craniocaudal length of the spleen is 19.1 cm, enlarged. There are no splenic lesions. Other: Small volume abdominal ascites. HEPATIC VASCULATURE: PORTAL SYSTEM: -Splenic Vein: Patent with antegrade flow (towards the liver). -Main PV: Patent with phasic antegrade flow (towards liver and TIPS). 46 cm/sec -Right anterior PV: Patent with retrograde flow (towards TIPS). -Right posterior PV: Patent with retrograde flow (towards TIPS). -Left PV: Patent with retrograde flow (towards TIPS). Splenorenal shunt: area obscured Recannulized paraumbilical vein: no TIPS extends from the right hepatic vein to the right portal vein. The TIPS is patent. Stent near portal vein: 116-117 cm/s Mid stent: 153-158 cm/s Stent near hepatic vein: 136-140 cm/s HEPATIC ARTERIES: - Main HALL: Normal waveform PSV: 148-168 cm/sec. RI: 0.60-0.62 - Right anterior HALL: Normal waveform - Right posterior HALL: Normal waveform - Left HALL: Normal waveform HEPATIC VEINS: -Left: Patent with triphasic waveform. -Middle: Patent with triphasic waveform. -Right: Patent with triphasic waveform. IVC: Patent with normal, phasic wave form. IMPRESSION: PATENT TIPS. PATENT HEPATIC VASCULATURE WITH APPROPRIATELY DIRECTED FLOW. CIRRHOTIC LIVER MORPHOLOGY WITH SEQUELA OF PORTAL HYPERTENSION. NO HEPATIC LESION. SMALL-VOLUME ASCITES. Steel Turner: PSCB Transcribe Date/Time: May 04 2018 9:52A Dictated by : MARYBETH RAO MD This examination was interpreted and the report reviewed and electronically signed by: MARYBETH RAO MD on May 04 2018 9:59AM EST [id number] PROGRESS Observed: 05/04/2018 Status: COMPLETED Source: [place] 9:12 AM [facility] REPOSITORY HNO ID: [id number] Author: Steven Sanchez Service: Critical Care Author Type: Anesthesiologist Type: Progress Notes Filed: 05/04/2018 9:28 AM Note Text: CVICU PROGRESS NOTE Admission Date: 04/14/2018 Hospital Day: # 20 3 Days Post-Op SUBJECTIVE: Interval Events: Severe agitation during weaning attempt last night. He tolerated pressure-support ventilation overnight. Patient Active Hospital Problem List: Esophageal perforation (04/14/2018) Acute respiratory failure (HCC) (04/29/2018) Hydropneumothorax (04/29/2018) History of hypertension (04/29/2018) Type II diabetes mellitus (HCC) (04/29/2018) Hyperglycemia (04/14/2018) Alcoholic cirrhosis (HCC) (04/14/2018) COPD (chronic obstructive pulmonary disease) (HCC) (04/14/2018) Acute post-operative pain (04/20/2018) Tobacco abuse (04/20/2018) Mediastinitis (04/20/2018) Severe protein-calorie malnutrition (HCC) (04/22/2018) Delirium due to general medical condition (04/26/2018) CKD (chronic kidney disease) (04/29/2018) Portal hypertension (HCC) (04/14/2018) Volume overload (05/03/2018) S/P TIPS (transjugular intrahepatic portosystemic shunt) (05/03/2018) ASSESSMENT/PLAN: Continue antibiotics per infectious disease recommendations. Wean to extubate. Continue beta garcia, and add IV STALIN inhibitor for blood pressure management. Continue steroids and aerosols for COPD. Continue TPN. Add a.m. dose of olanzapine for better control of delirium and agitation once propofol is discontinued. Awaiting results of abdominal ultrasound from today. COORDINATION OF CARE NOTE: Important/Relevant PMH/PSH: Alcohol use disorder with recent diagnosis of cirrhosis w/ esophageal varices, type II DM, poorly controlled HTN, CKD, COPD, tobacco smoker 2-3 PPD. Hospital Course: HPI: Lazaro Villafana is a 52 year old male with alcohol use disorder with recent diagnosis of cirrhosis w/ esophageal varices who presents on transfer from OSH with hematemesis s/p EGD at OSH c/b esophageal laceration; MELD >?20. R-sided chest tube for hydropneumothorax. Admitted to F SICU 04/14/18. 04/15/18: EGD showed 5cm esophageal laceration without active bleeding. 04/16/18: Right chest tube placed for effusion. 04/22/18: Extubated. 04/26/18: EGD: partial mucosal tear in mid esophagus. 04/27/18: Eesophagram showed persistent leak. 04/29/18: EGD 04/29: Esophageal stent successfully placed in Q3. Acute pulmonary insufficiency following non-thoracic surgery requiring intubation. Respiratory status improved with placement of CT to sxn. See Epic note for more details. Per discussion between Dr Jerry and Dr Soto the patient's care will be transitioned to Thoracic Surgery care, thoracic Surgery being primary team. Transferred to CVICU from SICU. 04/30-->TIPS A/P of Major Active Problems (excluding routine care and common problems): CV: SR. Remains off pressors. Resp: Intubated and sedated. Status post TIPS and right VATS. WTE GI: Strict NPO, TPN. Cirrhosis. Follow INR. Esoph stent to be removed in 4 weeks. Heme:Cautious use of SQH given bedrest. Renal: Cr normal Endo: Insulin infusion for glucose control ID: Hospital course c/b mediastinitis with fevers an purulent chest tube output on vancomycin/aztreonam/flagyl/diflucan. ID following. Epistaxis: ENT following-->Nasal packing with Surgicel fibrillar. Neuro: Agitation with sedation vacation. Transition sedation to dexmedetomidine and Seroquel. Lines: L IJ triple lumen (04/27/18). To Do or to Watch: WTE Daily TPN Monitor ammonia level Abd ultrasound results OBJECTIVE: Vital Signs: Temp Min: 35.7 ?C (96.3 ?F) Max: 39 ?C (102.2 ?F) Temp (24hrs), Av.6 ?C (97.8 ?F), Min:36.3 ?C (97.3 ?F), Max:36.7 ?C (98.1 ?F) Vitals: 05/04/18 0707 05/04/18 0710 05/04/18 0730 05/04/18 0750 Pulse: 74 75 75 75 BP: MAP Non Invasive (Mean Arterial Pressure): Arterial BP 1: 144/68 145/68 147/69 MAP Invasive (Mean Arterial Pressure) 1: 92 91 93 Resp: 16 SpO2: 94% 94% 94% 94% Additional Cardiac Parameters 05/04/18 0650 05/04/18 0710 05/04/18 0730 05/04/18 0750 CVP: 10 10 10 10 Fluid Balance: Date 05/03/18 07 - 05/04/18 0659 05/04/18 07 - 05/05/18 0659 Shift 2636-8970 3895-6190 8997-5215 24 Hour Total 4725-9435 8619-2213 4585-2261 24 Hour Total I N T A K E IV 1054 1395.8 2449.8 IVPB 639 639 NS 0.9% 639 639 Regular Insulin IV 88.3 133 221.3 Dexmedetomidine IV 278 270 548 Nitroglycerine Volume 83.8 83.8 Propofol IV 48.7 270 318.7 TPN/PPN 945 126 2836 TPN 489 569 8115 Irrigants 30 60 90 30 30 Irrigant/Flush Amount In (GI Feed/Drain 05/01/18 Assessment Nasogastric Right Naris 14 Fr) 30 60 90 30 30 Shift Total 1945 2314.8 4260.8 30 30 O U T P U T Urine 1959 1760 1000 4720 200 200 Output ( Indwelling Urinary Catheter 04/29/182029 Mcclain 18 Fr) 1959 1760 1000 4720 200 200 Tubes 300 300 Output (GI Feed/Drain 05/01/18 Assessment Nasogastric Right Naris 14 Fr) 300 300 Chest Tube 70 130 50 250 40 40 Chest Tube Output (Chest Tube 05/01/18 1218 Right Pleural Tube #1) 50 80 10 140 10 10 Chest Tube Output (Chest Tube 05/01/18 1219 Right Pleural 28 Fr Tube #2) 10 40 0 50 20 20 Chest Tube Output (Chest Tube 05/01/18 1219 Right Pleural Tube #3) 10 10 40 60 10 10 Shift Total 20290 1350 5270 240 240 Weight (kg) 118.2 118.2 118.2 118.2 118.2 118.2 118.2 118.2 Last Weight: 118.2 kg (260 lb 9.3 oz) (05/02/18 0300) Admit Weight: 106.1 kg (233 lb 14.5 oz) (04/16/18 0000) DIET NPO Parenteral Nutrition - Adult Lines, Drains, and Airways Line Central Line Triple Lumen 04/27/18 Non-tunneled Left Neck 7 days Arterial Line 04/29/182009 Arterial Line Left Radial 4 days Central Line Double Lumen 05/01/18 Right Groin Through Introducer 3 days Introducer 05/01/18 Right Groin 3 days Drain Indwelling Urinary Catheter 04/29/182029 Mcclain 18 Fr 4 days GI Feed/Drain 05/01/18 Assessment Nasogastric Right Naris 14 Fr 3 days Chest Tube 05/01/18 1218 Right Pleural Tube #1 2 days Chest Tube 05/01/18 1219 Right Pleural Tube #3 2 days Chest Tube 05/01/18 1219 Right Pleural 28 Fr Tube #2 2 days Airway Airway Endotracheal Tube 04/30/18 4 days Vent/Oxygen: O2 Therapy: Ventilator (05/04/18 0730) %FIO2: 30 (05/04/18 0730) Invasive Ventilator Mode: Continuous Positive Airway Pressure;Pressure Support Ventilation (05/04/18 0707) Pressure Support (cm H2O): 5 (05/04/18706) PEEP/CPAP (cm H2O): (S) 5 (05/04/18 08) Peak Inspiratory Pressure (cm H2O): 14 (05/04/18706) Mean Airway Pressure (cm H2O): 10 (05/04/18706) %FIO2 Min: 30 Max: 40 Pulmonary Therapy: Bronchodilators VENTILATOR INFORMATION: Settings: Invasive Ventilator Mode: Continuous Positive Airway Pressure;Pressure Support Ventilation (05/04/18706) %FIO2: 30 Set Ventilator Respiratory Rate (BPM): (S) 18 PEEP/CPAP (cm H2O): (S) 5 Inspiratory Pressure Set (cm H2O): (S) 8 Patient Data: Inspiratory:Expiratory Ratio: 1:2 Peak Inspiratory Pressure (cm H2O): 14 Plateau Pressure (cm H2O): 21 Weaning Data: Spontaneous Respiratory Rate (BPM): 22 Physical Examination Performed: Cardiovascular: Regular rate and rhythm, normal sinus rhythm, hypertensive Respiratory: Tolerating CPAP pressure support ventilation 5/5 Extremities: Edema of all extremities Neurologic: Easily arousable, moves all extremities, follows commands Diagnostic tests reviewed today: CXR: Right effusion Recent Labs 05/04/18 0852 05/04/18 0328 05/04/18 0021 05/03/18 1943 05/03/18 1627 PH 7.45 7.43 7.42 7.40 7.39 PCO2 30* 32* 32* 35 35 PO2 99* 80* 116* 124* 89 HCO3 21* 21* 20* 21* 21* BE NEG 3 NEG 2 NEG 3 NEG 3 NEG 3 Recent Labs 05/04/18 0005 05/03/18 0054 05/02/18 0248 MCV 91.0 90.1 87.4 MCH 29.6 29.7 28.7 MPV 11.7 11.5 11.1 Recent Labs 05/04/18 0005 05/03/18 0054 05/02/18 0248 05/01/18 1521 05/01/18 1101 04/30/18 0445 04/28/18 0106 04/27/18 0237 04/20/18 1338 04/14/18 1700 04/14/18 1415 WBC 6.97 13.83* 7.56 14.41* -- -- 7.89 < > 7.63 6.78 < > 10.03 < > 20.86* 21.54* RBC 3.45* 3.54* 3.41* 3.36* -- -- 2.76* < > 2.77* 2.64* < > 2.66* < > 2.73* 2.67* HB 10.2* 10.5* 9.8* 9.6* -- -- 8.0* < > 7.8* 7.3* < > 7.9* < > 8.0* 8.1* HCT 31.4* 31.9* 29.8* 30.1* -- -- 25.0* < > 25.5* 23.8* < > 24.2* < > 25.0* 25.3* PLT 125* 166 124* 194 202 < > 134* < > 145* 132* < > 66* < > 102* 120* MCV 91.0 90.1 87.4 89.6 -- -- 90.6 < > 92.1 90.2 < > 91.0 < > 91.6 94.8 MCH 29.6 29.7 28.7 28.6 -- -- 29.0 < > 28.2 27.7 < > 29.7 < > 29.3 30.3 MPV 11.7 11.5 11.1 10.7 -- -- 11.5 < > 11.1 10.9 < > 11.1 < > 12.2* 12.2* RDW -- -- -- -- -- -- -- -- -- -- -- -- -- 15.3* 13.0 ABSNEUT 6.39 -- -- -- -- -- -- -- 5.58 4.87 < > 8.53* < > -- -- ANCSEGBAND -- -- -- -- -- -- -- -- -- -- -- 8.53 -- -- -- NEUTP 91.8 -- -- -- -- -- -- -- 73.1 71.9 < > 85.0 < > -- -- LYMPHP 3.7 -- -- -- -- -- -- -- 16.9 18.0 < > 8.0 < > -- -- MONOP 4.4 -- -- -- -- -- -- -- 6.6 6.9 < > 7.0 < > -- -- EODINP 0.0 -- -- -- -- -- -- -- 3.0 2.9 < > 0.0 < > -- -- < > = values in this interval not displayed. Recent Labs 05/04/18 0005 05/03/18 0054 05/02/18 0248 05/01/18 1521 05/01/18 0156 04/30/18 0005 GLUC 223* 194* 257* 188* 207* 130* NA 141 139 137 137 137 141 K 4.5 4.9 4.2 5.2* 4.5 4.5 CHLOR 109* 109* 105 107* 106* 111* CO2 21* 21* 19* 21* 19* 20* CREAT 0.89 0.89 1.03 1.16 1.10 1.25* BUN 51* 43* 42* 38* 39* 42* ANION 11 9 13 9 12 10 CA 8.0* 7.9* 7.7* 7.5* 7.3* 7.8* TPROT 6.5 6.2* 6.0* -- 6.5 6.9 ALB 2.1* 1.9* 1.9* -- 1.9* 2.0* TBILI 0.5 0.5 0.6 -- 0.5 0.3 ALKPHOS 85 76 59 -- 61 63 AST 160* 161* 73* -- 55* 46* ALT 83* 56* 31 -- 23 20 Recent Labs 05/04/18 0005 05/03/18 1803 05/01/18 1521 05/01/18 1101 05/01/18 0920 APTT 30.0 29.3 29.9 33.8* 32.5* INR 1.4* 1.4* 1.3 1.5* 1.4* FIBCT -- -- 478* 432* 483* VAP Prevention: Chlorhexidine Mouth Care: Yes Stress Ulcer Prophylaxis PPI or H2 antagonist: Yes VTE Prophylaxis: Active VTE Risk Category Order: 04/14/18 2100 VTE RISK CATEGORY: SURGICAL MODERATE RISK ([place]) Active VTE Medication Orders: 05/02/18 0800 HEPARIN 5,000 UNITS INJECTION Active VTE Prophylaxis Orders: 04/28/18 0845 GRADUATED COMPRESSION STOCKINGS ([place] 04/14/18 2100 PNEUMATIC COMPRESSION [place]OCKINGS [place] 04/14/18 2100 ACTIVITY - MOBILIZE PATIENT ([place], [place]) Anticoagulant AND Antiplatelet Medications Start Dose Route Frequency Ordered Stop 05/02/18 0800 heparin 5,000 Units injection 5,000 Units SUBCUTANEOUS EVERY 12 HOURS 05/02/18 0756 -- I personally reviewed and updated the patient's history and course in the note as well as the assessment AND plan. I discussed the management plan with the RN and RT. SIGNATURE: Steven Sanchez MD, MMM PT NAME: Lazaro Villafana DATE: May 04, 2018 US ABD LIVER VASCULAR Observed: 05/04/2018 Status: F Source: [place] 9:00 AM [facility] REPOSITORY * * *Final Report* * * DATE OF EXAM: May 04 2018 9:00AM [facility] [place] - US ABD LIVER VASCULAR / PROCEDURE REASON: Liver disease, chronic, fibrosis suspected * * * * Physician Interpretation * * * * LIVER VASCULAR ULTRASOUND WITH DOPPLER IMAGING HISTORY: Status post TIPS 04/30/2018 COMPARISON: None. TECHNIQUE: Sonography of the liver with color and spectral Doppler imaging of the hepatic vasculature was performed. Images were obtained and stored in a permanent archive. RESULT: SONOGRAPHIC FINDINGS: Pancreas: Normal sonographic appearance. Portions obscured: tail Liver: Echotexture: Coarse Echogenicity: Normal Surface contour: Nodular Lesions: None. Biliary: No intrahepatic biliary duct dilation. CBD: 0.2 cm at the hilum. Gallbladder: Normal caliber -Contents: Sludge present -Wall: Nonspecific gallbladder wall thickening present. Right Kidney: No hydronephrosis. Spleen: The craniocaudal length of the spleen is 19.1 cm, enlarged. There are no splenic lesions. Other: Small volume abdominal ascites. HEPATIC VASCULATURE: PORTAL SYSTEM: -Splenic Vein: Patent with antegrade flow (towards the liver). -Main PV: Patent with phasic antegrade flow (towards liver and TIPS). 46 cm/sec -Right anterior PV: Patent with retrograde flow (towards TIPS). -Right posterior PV: Patent with retrograde flow (towards TIPS). -Left PV: Patent with retrograde flow (towards TIPS). Splenorenal shunt: area obscured Recannulized paraumbilical vein: no TIPS extends from the right hepatic vein to the right portal vein. The TIPS is patent. Stent near portal vein: 116-117 cm/s Mid stent: 153-158 cm/s Stent near hepatic vein: 136-140 cm/s HEPATIC ARTERIES: - Main HALL: Normal waveform PSV: 148-168 cm/sec. RI: 0.60-0.62 - Right anterior HALL: Normal waveform - Right posterior HALL: Normal waveform - Left HALL: Normal waveform HEPATIC VEINS: -Left: Patent with triphasic waveform. -Middle: Patent with triphasic waveform. -Right: Patent with triphasic waveform. IVC: Patent with normal, phasic wave form. IMPRESSION: PATENT TIPS. PATENT HEPATIC VASCULATURE WITH APPROPRIATELY DIRECTED FLOW. CIRRHOTIC LIVER MORPHOLOGY WITH SEQUELA OF PORTAL HYPERTENSION. NO HEPATIC LESION. SMALL-VOLUME ASCITES. Steel Turner: NIDHI Transcribe Date/Time: May 04 2018 9:52A Dictated by : MARYBETH RAO MD This examination was interpreted and the report reviewed and electronically signed by: MARYBETH RAO MD on May 04 2018 9:59AM EST [id number] GASA + ALL Collected: 05/04/2018 Status: F Source: [facility] 8:52 AM [facility] USE ONLY REPOSITORY TYPE CODE TESTS RESULT OUT OF REFERENCE UNITS RANGE LAB PH 7.35-7.45 pH 7.45 LAB PCO2 34-46 mm Hg pCO2 Low 30 LAB PO2 85-95 mm Hg pO2 High 99 LAB BE mmol/L Base Excess NEG 3 LAB HCO3 22-26 mmol/L Bicarbonate Low 21 LAB CO2CT 22.0-28.0 mmol/L CO2 Content Low 21 LAB O2HB 95-98 % Oxyhemoglobin, Art. 96 LAB COHB 0-5.0 % Carboxyhemoglobin,A 1.2 rt LAB MHGB 0.4-1.5 % Methemoglobin 0.5 LAB TEMP C Temperature, Body 37.0 LAB PHTC 7.35-7.45 pH, Temp Corrected 7.45 LAB PCO2T 34-46 mm Hg pCO2, Temp Low Correct 30 LAB PO2T mm Hg pO2, Temp Corrected 99 LAB NAB 135-146 mmol/L Sodium,Whole Bld 143 LAB KWB 3.5-5.0 mmol/L Potassium, Whole Bld 3.8 LAB HGBB 13.0-17.0 g/dL Low Hemoglobin,Total,AC 8.7 L LAB HCTB 39.0-51.0 % Hematocrit, ACL Low 27 LAB IC 1.08-1.30 mmol/L Calcium, Ion, WB 1.21 LAB GLB 60-105 mg/dL Glucose,Whole Bld High 155 LAB LACT 0.5-2.2 mmol/L Lactate 1.7 Performed By: #### ALLBG #### [facility] [address] [place], [place] [address] GASA + ALL Collected: 05/04/2018 Status: F Source: [place] FOR 3:28 AM [facility] RADIANCE USE ONLY REPOSITORY TYPE CODE TESTS RESULT OUT OF REFERENCE UNITS RANGE LAB PH 7.35-7.45 pH 7.43 LAB PCO2 34-46 mm Hg pCO2 Low 32 LAB PO2 85-95 mm Hg pO2 Low 80 LAB BE mmol/L Base Excess NEG 2 LAB HCO3 22-26 mmol/L Bicarbonate Low 21 LAB CO2CT 22.0-28.0 mmol/L CO2 Content 22 LAB O2HB 95-98 % Oxyhemoglobin, Art. 95 LAB COHB 0-5.0 % Carboxyhemoglobin,A 1.1 rt LAB MHGB 0.4-1.5 % Methemoglobin 0.6 LAB TEMP C Temperature, Body 37.0 LAB PHTC 7.35-7.45 pH, Temp Corrected 7.43 LAB PCO2T 34-46 mm Hg pCO2, Temp Low Correct 32 LAB PO2T mm Hg pO2, Temp Corrected 80 LAB NAB 135-146 mmol/L Sodium,Whole Bld 142 LAB KWB 3.5-5.0 mmol/L Potassium, Whole Bld 4.1 LAB HGBB 13.0-17.0 g/dL Low Hemoglobin,Total,AC 9.3 L LAB HCTB 39.0-51.0 % Hematocrit, ACL Low 29 LAB IC 1.08-1.30 mmol/L Calcium, Ion, WB 1.23 LAB GLB 60-105 mg/dL Glucose,Whole Bld High 190 LAB LACT 0.5-2.2 mmol/L Lactate 1.7 Performed By: #### ALLBG #### [facility] [address] [place], [place] [address] XR CHEST 1V FRONTAL Observed: 05/04/2018 Status: F Source: [facility] 2:29 AM [facility] REPOSITORY * * *Final Report* * * DATE OF EXAM: May 04 2018 2:29AM [facility] [id number] - XR CHEST 1V FRONTAL PORT / PROCEDURE REASON: Acute respiratory illness * * * * Physician Interpretation * * * * EXAMINATION: CHEST RADIOGRAPH (PORTABLE SINGLE VIEW AP) Exam Date/Time: 05/04/2018 2:29 AM Clinical History: Acute respiratory illness, MQ: [id number] Comparison: 1 day prior RESULT: See impression. IMPRESSION: Lines, tubes, and devices: The tip of the ET tube is 3 to 4 cm proximal to the bethany. An enteric tube courses below the diaphragm. The tip of the left IJ venous catheter overlies the lower third of the SVC. A mural stent remains positioned over the lower third of the esophagus extending into the proximal stomach. Multiple right thoracostomy tubes remain in place. Lungs and pleura: Improved inspiratory effort. There is a right pleural effusion with associated right mid to lower lung airspace/consolidative opacity most commonly secondary to nonspecific atelectasis or pneumonia/aspiration. The left lung appears clear. No pneumothorax is identified. Cardiomediastinal silhouette: Stable cardiomediastinal silhouette. The heart size is within normal limits. Other: There is mild subcutaneous emphysema in the right thoracoabdominal wall. Steel Turner: PSCAlexys Transcribe Date/Time: May 04 2018 7:51A Dictated by : WASHINGTON MONTANEZ MD This examination was interpreted and the report reviewed and electronically signed by: WASHINGTON MONTANEZ MD on May 04 2018 7:53AM EST [id number] GASA + ALL Collected: 05/04/2018 Status: F Source: [facility] 12:21 AM [facility] RADIANCE USE ONLY REPOSITORY TYPE CODE TESTS RESULT OUT OF REFERENCE UNITS RANGE LAB PH 7.35-7.45 pH 7.42 LAB PCO2 34-46 mm Hg pCO2 Low 32 LAB PO2 85-95 mm Hg pO2 High 116 LAB BE mmol/L Base Excess NEG 3 LAB HCO3 22-26 mmol/L Bicarbonate Low 20 LAB CO2CT 22.0-28.0 mmol/L CO2 Content Low 21 LAB O2HB 95-98 % Oxyhemoglobin, Art. 97 LAB COHB 0-5.0 % Carboxyhemoglobin,A 1.0 rt LAB MHGB 0.4-1.5 % Methemoglobin 0.6 LAB TEMP C Temperature, Body 37.0 LAB PHTC 7.35-7.45 pH, Temp Corrected 7.42 LAB PCO2T 34-46 mm Hg pCO2, Temp Low Correct 32 LAB PO2T mm Hg pO2, Temp Corrected 116 LAB NAB 135-146 mmol/L Sodium,Whole Bld 140 LAB KWB 3.5-5.0 mmol/L Potassium, Whole Bld 4.4 LAB HGBB 13.0-17.0 g/dL Low Hemoglobin,Total,AC 10.5 L LAB HCTB 39.0-51.0 % Hematocrit, ACL Low 32 LAB IC 1.08-1.30 mmol/L Calcium, Ion, WB 1.20 LAB GLB 60-105 mg/dL Glucose,Whole Bld High 219 LAB LACT 0.5-2.2 mmol/L Lactate 1.4 Performed By: #### ALLBG #### [facility] [address] [place], [place] [address] CBC AND DIFFERENTIAL Collected: 05/04/2018 Status: F Source: [place] 12:[address] [facility] REPOSITORY TYPE CODE TESTS RESULT OUT OF REFERENCE UNITS RANGE LAB WBC 3.70-11.00 k/uL WBC 6.97 LAB RBC 4.20-6.00 m/uL Low RBC 3.45 LAB HGB 13.0-17.0 g/dL Low Hemoglobin 10.2 LAB HCT 39.0-51.0 % Low Hematocrit 31.4 LAB MCV 80.0-100.0 fL MCV 91.0 LAB MCH 26.0-34.0 pG MCH 29.6 LAB MCHC 30.5-36.0 g/dL MCHC 32.5 LAB RDWCV 11.5-15.0 % RDW-CV High 16.1 LAB PLTCT 150-400 k/uL Low Platelet Count 125 LAB MPV 9.0-12.7 fL MPV 11.7 LAB ANEUT % Neut% 91.8 LAB AANEUT 1.45-7.50 k/uL Abs Neut 6.39 LAB ALYMP % Lymph% 3.7 LAB AALYMP 1.00-4.00 k/uL Low Abs Lymph 0.26 LAB AMONO % Hendry% 4.4 LAB AAMONO <0.87 k/uL Abs Hendry 0.31 LAB AEOS % Eosin% 0.0 LAB AAEOS <0.46 k/uL Abs Eosin <0.03 LAB ABASO % Baso% 0.1 LAB AABASO <0.11 k/uL Abs Baso <0.03 LAB AUNRBC 0 /100 WBC NRBCs 0.0 LAB ABNRBC <0.01 k/uL Absolute nRBC <0.01 LAB DTYP DTYPE Auto Diff Performed By: #### CBCDIF, PT, PTT, NH3, CMP, MG1, PHOS #### [facility] [address] [place], [place] [address] PROTIME Collected: 05/04/2018 Status: F Source: [place] 12:[address] [facility] REPOSITORY TYPE CODE TESTS RESULT OUT OF RANGE REFERENCE UNITS LAB PSEC 9.7-13.0 sec High PT Sec 14.5 LAB INR 0.9-1.3 High PT INR 1.4 Result Comment: Vitamin K Antagonist (VKA) Therapeutic Range: INR 2 to 3 (Target INR of 2.5) Note: For patients treated with VKA drugs, such as warfarin, the [place] [employer] 2012 Guideline recommends a therapeutic INR range of 2 to 3 (target INR of 2.5). This recommendation includes high-risk patients with antiphospholipid syndrome with previous arterial or venous thromboembolism, current-generation mechanical or bioprosthetic aortic heart valve replacement. Note: Patients with mechanical aortic valve replacement and additional risk factors for thromboembolic events (atrial fibrillation, previous thromboembolism, LV dysfunction, hypercoagulable conditions) or an older generation mechanical AVR (i.e., ball in-Cage) or any mechanical MVR should have a INR therapeutic range of 2.5 to 3.5 (target INR of 3). Serjio GH, et al. Chest 2012, 141:7S-47S Rashida RA, et al. JACC 2017, 70: 252-289 Performed By: #### CBCDIF, PT, PTT, NH3, CMP, MG1, PHOS #### [place] [id number] [place] [id number] APTT Collected: 05/04/2018 Status: F Source: [place] 12:05 [facility] REPOSITORY TYPE CODE TESTS RESULT OUT OF RANGE REFERENCE UNITS LAB APTT 23.0-32.4 sec APTT 30.0 Result Comment: Unfractionated Heparin Therapeutic Ranges: Standard Heparin Nomogram: 53 to 78 seconds (anti-Xa level of 0.3 to 0.7 U/ml) Low Dose/ACS Nomogram: 49 to 67 seconds (anti-Xa level of 0.2 to 0.5 U/ml) Stroke Treatment Nomogram: 49 to 67 seconds (anti-Xa level of 0.2 to 0.5 U/ml) Note: The APTT therapeutic range has been determined for the current lot of laboratory APTT reagent in use throughout the [facility]. Performed By: #### CBCDIF, PT, PTT, NH3, CMP, MG1, PHOS #### [place] [id number] [place] [id number] AMMONIA Collected: 05/04/2018 Status: F Source: [place] 12:[address] [place] [address] REPOSITORY TYPE CODE TESTS RESULT OUT OF REFERENCE UNITS RANGE LAB NH3 16-60 umol/L Ammonia 60 Performed By: #### CBCDIF, PT, PTT, NH3, CMP, MG1, PHOS #### [place] [address] COMP METABOLIC PANEL Collected: 05/04/2018 Status: F Source: [place] 12:05 [facility] REPOSITORY TYPE CODE TESTS RESULT OUT OF REFERENCE UNITS RANGE LAB TP 6.3-8.0 g/dL Protein, Total 6.5 LAB ALB 3.9-4.9 g/dL Low Albumin 2.1 LAB CA 8.5-10.2 mg/dL Low Calcium, Total 8.0 LAB TBIL 0.2-1.3 mg/dL Bilirubin, Total 0.5 LAB ALKP 38-113 U/L Alkaline Phosphatase 85 LAB AST 14-40 U/L AST High 160 LAB GLU 74-99 mg/dL Glucose High 223 Result Comment: The [place] [employer] Association (ADA) provides guidance for cutoff values for fasting glucose and random glucose. The ADA defines fasting as no caloric intake for at least 8 hours. Fas ting plasma glucose results between 100 to 125 mg/dL indicate increased risk for diabetes (prediabetes). Fasting plasma glucose results greater than or equal to 126 mg/dL meet the criteria for diagnosis of diabetes. In the absence of unequivocal hyperglycemia, results should be confirmed by repeat testing. In a patient with classic symptoms of hyperglycemia or hyperglycemic crisis, random plasma glucose results greater than or equal to 200 mg/dL meet the criteria for diagnosis of diabetes. Reference: Standards of Medical Care in Diabetes 2016, [place] [employer] Association. Diabetes Care. 2016.39(Suppl 1). LAB BUN 9-24 mg/dL BUN High 51 LAB CRET 0.73-1.22 mg/dL Creatinine 0.89 LAB NA 136-144 mmol/L Sodium 141 LAB K 3.7-5.1 mmol/L Potassium 4.5 LAB CL 97-105 mmol/L Chloride High 109 LAB CO2 22-30 mmol/L Low CO2 21 LAB AGAP 9-18 mmol/L Anion Gap 11 LAB ALT 10-54 U/L ALT High 83 LAB GFRAA eGFR- Amer. >60 LAB GFRNAA . eGFR-All Other Races >60 Result Comment: eGFR (Estimated GFR) Units of measure: mL/min/1.73 meters squared eGFR is derived from the reexpressed MDRD Study equation using the following parameters: serum creatinine, age, gender and race. The creatinine assay has been calibrated to be traceable to IDMS. An eGFR <60 mL/min/1.73m2 for >3 months is consistent with chronic kidney disease. Refer to KDOQI guidelines for clinical interpretation. In patients with unstable renal function, e.g. those with acute kidney injury, the eGFR may not accurately reflect actual GFR. Performed By: #### CBCDIF, PT, PTT, NH3, CMP, MG1, PHOS #### [facility] [address] [place], [place] [address] MAGNESIUM Collected: 05/04/2018 Status: F Source: [place] 12:[address] [facility] REPOSITORY TYPE CODE TESTS RESULT OUT OF REFERENCE UNITS RANGE LAB MG 1.7-2.3 mg/dL Magnesium 1.9 Performed By: #### CBCDIF, PT, PTT, NH3, CMP, MG1, PHOS #### [facility] [address] [place], [place] [address] PHOSPHORUS Collected: 05/04/2018 Status: F Source: [place] 12:05 AM [facility] REPOSITORY TYPE CODE TESTS RESULT OUT OF REFERENCE UNITS RANGE LAB PHOS 2.7-4.8 mg/dL Phosphorus 4.4 Performed By: #### CBCDIF, PT, PTT, NH3, CMP, MG1, PHOS #### [facility] [address] [place], [place] [address] GASA + ALL Collected: 05/03/2018 Status: F Source: [facility] 7:43 PM [facility] RADIANCE USE ONLY REPOSITORY TYPE CODE TESTS RESULT OUT OF REFERENCE UNITS RANGE LAB PH 7.35-7.45 pH 7.40 LAB PCO2 34-46 mm Hg pCO2 35 LAB PO2 85-95 mm Hg pO2 High 124 LAB BE mmol/L Base Excess NEG 3 LAB HCO3 22-26 mmol/L Bicarbonate Low 21 LAB CO2CT 22.0-28.0 mmol/L CO2 Content 22 LAB O2HB 95-98 % Oxyhemoglobin, Art. 97 LAB COHB 0-5.0 % Carboxyhemoglobin,A 1.0 rt LAB MHGB 0.4-1.5 % Methemoglobin 0.5 LAB TEMP C Temperature, Body 37.0 LAB PHTC 7.35-7.45 pH, Temp Corrected 7.40 LAB PCO2T 34-46 mm Hg pCO2, Temp Correct 35 LAB PO2T mm Hg pO2, Temp Corrected 124 LAB NAB 135-146 mmol/L Sodium,Whole Bld 140 LAB KWB 3.5-5.0 mmol/L Potassium, Whole Bld 4.4 LAB HGBB 13.0-17.0 g/dL Low Hemoglobin,Total,AC 10.1 L LAB HCTB 39.0-51.0 % Hematocrit, ACL Low 31 LAB IC 1.08-1.30 mmol/L Calcium, Ion, WB 1.19 LAB GLB 60-105 mg/dL Glucose,Whole Bld High 215 LAB LACT 0.5-2.2 mmol/L Lactate 1.4 Performed By: #### ALLBG #### [facility] [address] [place], [place] [address] PROTIME Collected: 05/03/2018 Status: F Source: [place] 6:03 [facility] REPOSITORY TYPE CODE TESTS RESULT OUT OF RANGE REFERENCE UNITS LAB PSEC 9.7-13.0 sec High PT Sec 14.3 LAB INR 0.9-1.3 High PT INR 1.4 Result Comment: Vitamin K Antagonist (VKA) Therapeutic Range: INR 2 to 3 (Target INR of 2.5) Note: For patients treated with VKA drugs, such as warfarin, the [place] [employer] 2012 Guideline recommends a therapeutic INR range of 2 to 3 (target INR of 2.5). This recommendation includes high-risk patients with antiphospholipid syndrome with previous arterial or venous thromboembolism, current-generation mechanical or bioprosthetic aortic heart valve replacement. Note: Patients with mechanical aortic valve replacement and additional risk factors for thromboembolic events (atrial fibrillation, previous thromboembolism, LV dysfunction, hypercoagulable conditions) or an older generation mechanical AVR (i.e., ball in-Cage) or any mechanical MVR should have a INR therapeutic range of 2.5 to 3.5 (target INR of 3). Pradeeptt GH, et al. Chest 2012, 141:7S-47S Rashida RA, et al. [facility] 2017, 70: 252-289 Performed By: #### PT, PTT #### [facility] [address] [place], [place] [address] APTT Collected: 05/03/2018 Status: F Source: [place] 6:03 [facility] REPOSITORY TYPE CODE TESTS RESULT OUT OF RANGE REFERENCE UNITS LAB APTT 23.0-32.4 sec APTT 29.3 Result Comment: Unfractionated Heparin Therapeutic Ranges: Standard Heparin Nomogram: 53 to 78 seconds (anti-Xa level of 0.3 to 0.7 U/ml) Low Dose/ACS Nomogram: 49 to 67 seconds (anti-Xa level of 0.2 to 0.5 U/ml) Stroke Treatment Nomogram: 49 to 67 seconds (anti-Xa level of 0.2 to 0.5 U/ml) Note: The APTT therapeutic range has been determined for the current lot of laboratory APTT reagent in use throughout the [facility]. Performed By: #### PT, PTT #### [facility] [address] [place], [place] [id number] GASA + ALL Collected: 05/03/2018 Status: F Source: [place] FOR 4:27 PM [facility] RADIANCE USE ONLY REPOSITORY TYPE CODE TESTS RESULT OUT OF REFERENCE UNITS RANGE LAB PH 7.35-7.45 pH 7.39 LAB PCO2 34-46 mm Hg pCO2 35 LAB PO2 85-95 mm Hg pO2 89 LAB BE mmol/L Base Excess NEG 3 LAB HCO3 22-26 mmol/L Bicarbonate Low 21 LAB CO2CT 22.0-28.0 mmol/L CO2 Content 22 LAB O2HB 95-98 % Oxyhemoglobin, Art. 95 LAB COHB 0-5.0 % Carboxyhemoglobin,A 1.2 rt LAB MHGB 0.4-1.5 % Methemoglobin 0.7 LAB TEMP C Temperature, Body 37.0 LAB PHTC 7.35-7.45 pH, Temp Corrected 7.39 LAB PCO2T 34-46 mm Hg pCO2, Temp Correct 35 LAB PO2T mm Hg pO2, Temp Corrected 89 LAB NAB 135-146 mmol/L Sodium,Whole Bld 141 LAB KWB 3.5-5.0 mmol/L Potassium, Whole Bld 4.9 LAB HGBB 13.0-17.0 g/dL Low Hemoglobin,Total,AC 10.0 L LAB HCTB 39.0-51.0 % Hematocrit, ACL Low 31 LAB IC 1.08-1.30 mmol/L Calcium, Ion, WB 1.24 LAB GLB 60-105 mg/dL Glucose,Whole Bld High 233 LAB LACT 0.5-2.2 mmol/L Lactate 1.4 Performed By: #### ALLBG #### [facility] [address] [place], [place] [address] THERAPY NT Observed: 05/03/2018 Status: COMPLETED Source: [place] 3:46 PM [facility] REPOSITORY HNO ID: [id number] Author: Kevin (Zacarias Wong Service: Physical Therapy Author Type: Physical Therapist Type: Therapy (PT/OT/Speech/Resp) Filed: 05/03/2018 3:46 PM Note Text: PHYSICAL THERAPY MISSED VISIT SERVICE DATE: 05/03/2018 SERVICE TIME: 1545 to 1545 ROOM: [place] [address] ([facility] ([facility] Vasc/Ultrasound)) Attempted Treatment. Patient not seen due to Illness. SIGNATURE: Kevin Wong PT PATIENT NAME: Lazaro Villafana DATE: May 03, 2018 TIME: 3:46 PM CONSULT PROG Observed: 05/03/2018 Status: COMPLETED Source: [place] 2:49 PM [facility] REPOSITORY HNO ID: [id number] Author: Alexander Caruso (Pharmacist) Service: Pharmacy Author Type: Pharmacist Type: Consult Progress Note Filed: 05/03/2018 2:51 PM Note Text: PHARMACY VANCOMYCIN DOSING NOTE Patient Name: Lazaro Villafana Admission Date: 04/14/2018 Date of Consult: 05/03/2018 Time of Consult: 2:49 PM Indication: Pneumonia Goal Range: 10-20 mcg/mL RECOMMENDATIONS/PLAN: Pharmacy consulted for vancomycin dosing for Lazaro Villafana, a 52 year old, male who is being treated with vancomycin for pneumonia 1. Patient is currently ordered Vancomycin 1 g IV q12h. Today is day 12 of therapy. 2. The most recent vancomycin level was 15.9 mcg/mL drawn at 1257 on 05/03. This is a 12 hour level on the 12th day of therapy. 3. The present dose of vancomycin is the recommended dosage for this patient at this time. Continue therapy as prescribed. 4. The next vancomycin level will be ordered for 05/09 unless clinically indicated sooner. (Pharmacy will order) We will follow patient renal function, vancomycin levels and doses with you during the course of therapy. Additional recommendations will appear in follow up notes. If you have any questions, please contact Alexander Caruso, Pharmacist at [phone]. Age: [age] year old Allergies: ALLERGIES Allergen Reactions - Ciprofloxacin Unknown - Penicillin Unknown Tolerating cefepime Last 3 Encounter Wt Readings: Date: Wt: 04/14/2018 118.2 kg (260 lb 9.3 oz) 04/14/2018 97 kg (213 lb 13.5 oz) Last 1 Encounter Ht Readings: Date: Ht: 04/14/2018 177.8 cm (5' 10) CrCl: >120 mL/min Temp (24hrs), Av.9 ?C (98.5 ?F), Min:36.3 ?C (97.3 ?F), Max:37.4 ?C (99.3 ?F) - Current Temp: 36.3 ?C (97.3 ?F) Labs BUN (mg/dL) Date Value 05/03/2018 43 (H) 05/02/2018 42 (H) 05/01/2018 38 (H) Creatinine (mg/dL) Date Value 05/03/2018 0.89 05/02/2018 1.03 05/01/2018 1.16 WBC (k/uL) Date Value 05/03/2018 13.83 (H) 05/02/2018 7.56 05/01/2018 14.41 (H) Vancomycin Levels: Vancomycin, result (ug/mL) Date/Time Value 05/03/2018 1257 15.9 04/26/2018 0148 14.4 Alexander Caruso, Pharmacist GASA + ALL Collected: 05/03/2018 Status: F Source: [place] FOR 1:58 PM [facility] USE ONLY REPOSITORY TYPE CODE TESTS RESULT OUT OF REFERENCE UNITS RANGE LAB PH 7.35-7.45 pH 7.38 LAB PCO2 34-46 mm Hg pCO2 37 LAB PO2 85-95 mm Hg pO2 High 114 LAB BE mmol/L Base Excess NEG 3 LAB HCO3 22-26 mmol/L Bicarbonate 22 LAB CO2CT 22.0-28.0 mmol/L CO2 Content 23 LAB O2HB 95-98 % Oxyhemoglobin, Art. 96 LAB COHB 0-5.0 % Carboxyhemoglobin,A 1.0 rt LAB MHGB 0.4-1.5 % Methemoglobin 0.9 LAB TEMP C Temperature, Body 37.0 LAB PHTC 7.35-7.45 pH, Temp Corrected 7.38 LAB PCO2T 34-46 mm Hg pCO2, Temp Correct 37 LAB PO2T mm Hg pO2, Temp Corrected 114 LAB NAB 135-146 mmol/L Sodium,Whole Bld 139 LAB KWB 3.5-5.0 mmol/L Potassium, Whole Bld 4.7 LAB HGBB 13.0-17.0 g/dL Low Hemoglobin,Total,AC 11.2 L LAB HCTB 39.0-51.0 % Hematocrit, ACL Low 35 LAB IC 1.08-1.30 mmol/L Calcium, Ion, WB 1.21 LAB GLB 60-105 mg/dL Glucose,Whole Bld High 194 LAB LACT 0.5-2.2 mmol/L Lactate 1.3 Performed By: #### ALLBG #### [facility] [address] [place], [place] [address] VANCOMYCIN Collected: 05/03/2018 Status: F Source: [place] 12:57 PM [facility] REPOSITORY TYPE CODE TESTS RESULT OUT OF REFERENCE UNITS RANGE LAB VANCRA 5.0-20.0 ug/mL Vancomycin 15.9 Result Comment: Reference ranges and high/low indicator flags are provided as general guidelines only. The treating physician must determine appropriate target levels/dosing based on the specific clinical situation. Performed By: #### VANCRA #### [facility] [address] [place], [place] [address] NUTRITION Observed: 05/03/2018 Status: COMPLETED Source: [place] 12:25 PM [facility] REPOSITORY HNO ID: [id number] Author: Jesus Kennedy Service: NST-Nutrition Support Team Author Type: Registered Dietitian Type: Nutrition Filed: 05/03/2018 12:41 PM Note Text: NUTRITION SUPPORT TEAM PROGRESS NOTE SERVICE DATE: 05/03/2018 SERVICE TIME: 12:00PM RECOMMENDED DIAGNOSIS: NO MALNUTRITION IDENTIFIED per Registered Dietitian on 04/28 NUTRITION CARE PLAN Intervention: Parenteral nutrition - recommend continuing with current TPN: 1800 milliliters, 75 milliliters/hour 120 grams 15% amino acids 980 dextrose calories - recommend increasing sodium acetate - recommend increasing insulin Goal: Parenteral nutrition intake provides >90% estimated nutritional requirements Discharge Nutrition Recommendations: To be determined Per HPI: 52 year old male with a history of type II DM, poorly controlled HTN, CKD, COPD, tobacco smoker 2-3 PPD, alcohol use disorder with recent diagnosis of cirrhosis was transferred from [facility] with an esophageal perforation seen on EGD. Patient initially presented with hematemesis and melena with accompanying dizziness and shortness of breath. Transferred to [facility] on 04/14 for further management. s/p EGD 04/15?which showed a deep esophageal tear. ?Plan for a minimum of NPO x 2 weeks. ?04/16 Right chest tube placed for effusion. ?Esophagram (04/27/18): Persistent right mid-esophageal perforation; GI c/s and plan for esophageal stent placement tomorrow. s/p EGD 04/29: Esophageal stent successfully placed in Q3. Acute pulmonary insufficiency following non-thoracic surgery requiring intubation. Respiratory status improved with placement of CT to sxn. s/p TIPS 04/30 Interval History: Metabolic acidosis; hyperchloremic, low bicarbonate Hyperglycemic - will continue with current dextrose intake until hyperglycemia is better controlled Receiving propofol which provided 840 calories yesterday Current Diet Order DIET NPO TPN - providing 1460 calories, 120 grams protein Lines and Drains: Central Line Triple Lumen 04/27/18 Non-tunneled Left Neck (Active) tip at cavoatrial junction Height: 177.8 cm (5' 10) Admission Weight: 106.1 kg (233 lb 14.5 oz) Current Weight: 118.2 kg (260 lb 9.3 oz) Body mass index is 37.39 kg/m?. Usual body weight ?Unable to determine? No weight history available. ? Estimated nutrition goals: [place] body weight: 75.4 kg Dosing weight: 106?kg (04/14; BMI 33.5kg/m2)?? Calorie needs 8536-5140?kilocalories determined by = 15-20?kcals/kg ?Dosing?weight? Protein needs: 90 - 121?grams determined by 1.2 -1.6g/kg ideal?weight?- due to CKD ? Recent Labs 05/03/18 0054 GLUC 194* BUN 43* CREAT 0.89 NA 139 K 4.9 CHLOR 109* CO2 21* ALB 1.9* P 3.7 HB 10.5* HCT 31.9* WBC 13.83* MG 2.1 MNT Billing Type: Re-assess/15 min 2 units SIGNATURE: Bk Kennedy, MS RD LD PATIENT NAME: Lazaro Villafana DATE: May 03, 2018 TIME: 12:25 PM PAGER: [phone] GASA + ALL Collected: 05/03/2018 Status: F Source: [place] FOR 11:17 AM [facility] RADIANCE USE ONLY REPOSITORY TYPE CODE TESTS RESULT OUT OF REFERENCE UNITS RANGE LAB PH 7.35-7.45 pH 7.35 LAB PCO2 34-46 mm Hg pCO2 39 LAB PO2 85-95 mm Hg pO2 High 113 LAB BE mmol/L Base Excess NEG 4 LAB HCO3 22-26 mmol/L Bicarbonate Low 21 LAB CO2CT 22.0-28.0 mmol/L CO2 Content 22 LAB O2HB 95-98 % Oxyhemoglobin, Art. 96 LAB COHB 0-5.0 % Carboxyhemoglobin,A 0.6 rt LAB MHGB 0.4-1.5 % Methemoglobin 0.8 LAB TEMP C Temperature, Body 37.0 LAB PHTC 7.35-7.45 pH, Temp Corrected 7.35 LAB PCO2T 34-46 mm Hg pCO2, Temp Correct 39 LAB PO2T mm Hg pO2, Temp Corrected 113 LAB NAB 135-146 mmol/L Sodium,Whole Bld 141 LAB KWB 3.5-5.0 mmol/L Potassium, Whole Bld 4.1 LAB HGBB 13.0-17.0 g/dL Low Hemoglobin,Total,AC 10.3 L LAB HCTB 39.0-51.0 % Hematocrit, ACL Low 32 LAB IC 1.08-1.30 mmol/L Calcium, Ion, WB 1.20 LAB GLB 60-105 mg/dL Glucose,Whole Bld High 133 LAB LACT 0.5-2.2 mmol/L Lactate 1.0 Performed By: #### ALLBG #### [facility] [address] [place], [place] [address] PROGRESS Observed: 05/03/2018 Status: COMPLETED Source: [place] 11:09 AM [facility] REPOSITORY HNO ID: [id number] Author: Steven Sanchez Service: Critical Care Author Type: Anesthesiologist Type: Progress Notes Filed: 05/03/2018 11:28 AM Note Text: CVICU PROGRESS NOTE Admission Date: 04/14/2018 Hospital Day: # 19 2 Days Post-Op SUBJECTIVE: Interval Events: No significant events overnight Patient Active Hospital Problem List: Esophageal perforation (04/14/2018) Acute respiratory failure (HCC) (04/29/2018) Hydropneumothorax (04/29/2018) History of hypertension (04/29/2018) Type II diabetes mellitus (HCC) (04/29/2018) Hyperglycemia (04/14/2018) Alcoholic cirrhosis (HCC) (04/14/2018) COPD (chronic obstructive pulmonary disease) (HCC) (04/14/2018) Acute post-operative pain (04/20/2018) Tobacco abuse (04/20/2018) Mediastinitis (04/20/2018) Fever (04/20/2018) Severe protein-calorie malnutrition (HCC) (04/22/2018) Delirium due to general medical condition (04/26/2018) Epistaxis (04/29/2018) CKD (chronic kidney disease) (04/29/2018) Portal hypertension (HCC) (04/14/2018) Volume overload (05/03/2018) S/P TIPS (transjugular intrahepatic portosystemic shunt) (05/03/2018) ASSESSMENT/PLAN: Continue antibiotics per infectious disease recommendations. Awaiting input from hepatology service regarding possible paracentesis. Continue insulin infusion. Continue aerosols. Fentanyl as needed for pain management. Propofol infusion for sedation. Follow-up with echocardiogram results. Diuresis. Monitor CMP, INR, and ammonia level Continue TPN COORDINATION OF CARE NOTE: Important/Relevant PMH/PSH: Alcohol use disorder with recent diagnosis of cirrhosis w/ esophageal varices, type II DM, poorly controlled HTN, CKD, COPD, tobacco smoker 2-3 PPD. Hospital Course: HPI: Lazaro Villafana is a 52 year old male with alcohol use disorder with recent diagnosis of cirrhosis w/ esophageal varices who presents on transfer from OSH with hematemesis s/p EGD at OSH c/b esophageal laceration; MELD >?20. R-sided chest tube for hydropneumothorax. Admitted to [facility] 04/14/18. 04/15/18: EGD showed 5cm esophageal laceration without active bleeding. 04/16/18: Right chest tube placed for effusion. 04/22/18: Extubated. 04/26/18: EGD: partial mucosal tear in mid esophagus. 04/27/18: Eesophagram showed persistent leak. 04/29/18: EGD 04/29: Esophageal stent successfully placed in Q3. Acute pulmonary insufficiency following non-thoracic surgery requiring intubation. Respiratory status improved with placement of CT to sxn. See Epic note for more details. Per discussion between Dr Jerry and Dr Soto the patient's care will be transitioned to Thoracic Surgery care, thoracic Surgery being primary team. Transferred to CVICU from SICU. 04/30-->TIPS A/P of Major Active Problems (excluding routine care and common problems): CV: SR. Remains off pressors. Resp: Intubated and sedated. Status post TIPS and right VATS GI: Strict NPO, TPN. Cirrhosis. Follow INR. Esoph stent to be removed in 4 weeks. Heme:Cautious use of SQH given bedrest. Renal: Cr 1.1 Endo: Insulin infusion for glucose control ID: Hospital course c/b mediastinitis with fevers an purulent chest tube output on vancomycin/aztreonam/flagyl/diflucan. ID following. Epistaxis: ENT following-->Nasal packing with Surgicel fibrillar. Lines: L IJ triple lumen (04/27/18). To Do or to Watch: Maintain on ventilator Daily TPN Monitor ammonia level Echocardiogram and LE ultrasound results. Awaiting input from Hepatology regarding possible paracentesis. Proceed with wean to extubate once that decision is made. OBJECTIVE: Vital Signs: Temp Min: 35.7 ?C (96.3 ?F) Max: 39 ?C (102.2 ?F) Temp (24hrs), Av.1 ?C (98.8 ?F), Min:36.9 ?C (98.4 ?F), Max:37.4 ?C (99.3 ?F) Vitals: 05/03/18 0830 05/03/18 0900 05/03/18 0930 05/03/18 1000 Pulse: 88 85 85 89 BP: MAP Non Invasive (Mean Arterial Pressure): Arterial BP 1: 115/57 154/68 153/68 146/66 MAP Invasive (Mean Arterial Pressure) 1: 77 96 96 92 Resp: SpO2: 97% 98% 97% 95% Additional Cardiac Parameters 05/03/18 0830 05/03/18 0900 05/03/18 0930 05/03/18 1000 CVP: 14 15 12 15 Fluid Balance: Date 05/02/18 0700 - 05/03/18 0659 05/03/18 0700 - 05/04/18 0659 Shift 2973-6989 7723-7141 4092-9020 24 Hour Total 4909-7036 7208-7634 2170-1849 24 [place] 2501 1087.6 3588.6 D5W 1812 1812 NS 0.9% 623 623 Regular Insulin IV 301 88.6 389.6 Propofol IV 388 376 764 TPN/PPN 7348 139 7431 TPN 9563 330 2652 Irrigants 60 60 60 180 Irrigant/Flush Amount In (GI Feed/Drain 05/01/18 Assessment Nasogastric Right Naris 14 Fr) 60 60 60 180 Shift Total 60 3614 2087.6 5761.6 O U T P U T Urine 1440 2130 1350 4920 400 400 Output ( Indwelling Urinary Catheter 04/29/18 2030 Mcclain 18 Fr) 1440 2130 1350 4920 400 400 Tubes 250 50 300 Output (GI Feed/Drain 05/01/18 Assessment Nasogastric Right Naris 14 Fr) 250 50 300 Chest Tube 290 110 120 520 40 40 Chest Tube Output (Chest Tube 05/01/18 1218 Right Pleural Tube #1) 130 50 70 250 20 20 Chest Tube Output (Chest Tube 05/01/18 1219 Right Pleural 28 Fr Tube #2) 45 20 20 85 10 10 Chest Tube Output (Chest Tube 05/01/18 1219 Right Pleural Tube #3) 115 40 30 185 10 10 Shift Total 1730 2490 1520 5740 440 440 Weight (kg) 118.2 118.2 118.2 118.2 118.2 118.2 118.2 118.2 Last Weight: 118.2 kg (260 lb 9.3 oz) (05/02/18 0300) Admit Weight: 106.1 kg (233 lb 14.5 oz) (04/16/18 0000) DIET NPO Parenteral Nutrition - Adult Parenteral Nutrition - Adult Lines, Drains, and Airways Line Central Line Triple Lumen 04/27/18 Non-tunneled Left Neck 6 days Arterial Line 04/29/182009 Arterial Line Left Radial 3 days Central Line Double Lumen 05/01/18 Right Groin Through Introducer 2 days Introducer 05/01/18 Right Groin 2 days Drain Indwelling Urinary Catheter 04/29/18 2030 Mcclain 18 Fr 3 days GI Feed/Drain 05/01/18 Assessment Nasogastric Right Naris 14 Fr 2 days Chest Tube 05/01/18 1218 Right Pleural Tube #1 1 day Chest Tube 05/01/18 1219 Right Pleural Tube #3 1 day Chest Tube 05/01/18 1219 Right Pleural 28 Fr Tube #2 1 day Airway Airway Endotracheal Tube 04/30/18 3 days Vent/Oxygen: O2 Therapy: Ventilator (05/03/18748) %FIO2: (S) 40 (05/03/18748) Invasive Ventilator Mode: (S) Continuous Positive Airway Pressure;Pressure Support Ventilation (05/03/18748) Pressure Support (cm H2O): 5 (05/03/18748) PEEP/CPAP (cm H2O): 10 (05/03/18748) Peak Inspiratory Pressure (cm H2O): 16 (05/03/18748) Mean Airway Pressure (cm H2O): 11 (05/03/18748) %FIO2 Min: 40 Max: 100 Pulmonary Therapy: Bronchodilators VENTILATOR INFORMATION: Settings: Invasive Ventilator Mode: (S) Continuous Positive Airway Pressure;Pressure Support Ventilation (05/03/18748) %FIO2: (S) 40 Set Ventilator Respiratory Rate (BPM): (S) 18 PEEP/CPAP (cm H2O): 10 Inspiratory Pressure Set (cm H2O): (S) 8 Patient Data: Inspiratory:Expiratory Ratio: 1:2 Peak Inspiratory Pressure (cm H2O): 16 Plateau Pressure (cm H2O): 21 Weaning Data: Spontaneous Respiratory Rate (BPM): 13 Physical Examination Performed: Cardiovascular: Regular rate and rhythm, normal sinus rhythm, hypertensive Respiratory: Unlabored, synchronous with ventilator Extremities: 3+ pitting edema of all extremities, all warm and well-perfused Neurologic: Moves all extremities, follows commands on sedation vacation Abdomen: Soft, mildly distended, no response to deep palpation Diagnostic tests reviewed today: CXR: Right pleural effusion Recent Labs 05/03/18 0818 05/03/18 0338 05/02/18 2257 05/02/18 1656 05/02/18 1431 PH 7.33* 7.34* 7.41 7.41 7.37 PCO2 42 40 33* 32* 34 PO2 124* 116* 114* 95 108* HCO3 21* 21* 21* 20* 19* BE NEG 4 NEG 4 NEG 3 NEG 3 NEG 5 Recent Labs 05/03/18 0054 05/02/18 0248 05/01/18 1521 MCV 90.1 87.4 89.6 MCH 29.7 28.7 28.6 MPV 11.5 11.1 10.7 Recent Labs 05/03/18 0054 05/02/18 0248 05/01/18 1521 05/01/18 1101 05/01/18 0920 04/30/18 0445 04/30/18 0005 04/28/18 0106 04/27/18 0237 04/26/18 0148 04/20/18 1338 04/14/18 1700 04/14/18 1415 WBC 13.83* 7.56 14.41* -- -- 7.89 7.44 7.63 6.78 7.02 < > 10.03 < > 20.86* 21.54* RBC 3.54* 3.41* 3.36* -- -- 2.76* 2.37* 2.77* 2.64* 2.41* < > 2.66* < > 2.73* 2.67* HB 10.5* 9.8* 9.6* -- -- 8.0* 6.7* 7.8* 7.3* 6.9* < > 7.9* < > 8.0* 8.1* HCT 31.9* 29.8* 30.1* -- -- 25.0* 22.3* 25.5* 23.8* 22.2* < > 24.2* < > 25.0* 25.3* PLT 166 124* 194 202 206 134* 137* 145* 132* 131* < > 66* < > 102* 120* MCV 90.1 87.4 89.6 -- -- 90.6 94.1 92.1 90.2 92.1 < > 91.0 < > 91.6 94.8 MCH 29.7 28.7 28.6 -- -- 29.0 28.3 28.2 27.7 28.6 < > 29.7 < > 29.3 30.3 MPV 11.5 11.1 10.7 -- -- 11.5 11.6 11.1 10.9 11.1 < > 11.1 < > 12.2* 12.2* RDW -- -- -- -- -- -- -- -- -- -- -- -- -- 15.3* 13.0 ABSNEUT -- -- -- -- -- -- -- 5.58 4.87 4.91 < > 8.53* < > -- -- ANCSEGBAND -- -- -- -- -- -- -- -- -- -- -- 8.53 -- -- -- NEUTP -- -- -- -- -- -- -- 73.1 71.9 70.0 < > 85.0 < > -- -- LYMPHP -- -- -- -- -- -- -- 16.9 18.0 18.1 < > 8.0 < > -- -- MONOP -- -- -- -- -- -- -- 6.6 6.9 8.5 < > 7.0 < > -- -- EODINP -- -- -- -- -- -- -- 3.0 2.9 3.1 < > 0.0 < > -- -- < > = values in this interval not displayed. Recent Labs 05/03/18 0054 05/02/18 0248 05/01/18 1521 05/01/18 0156 04/30/18 0005 04/23/18 0206 GLUC 194* 257* 188* 207* 130* < > 235* NA 139 137 137 137 141 < > 140 K 4.9 4.2 5.2* 4.5 4.5 < > 4.2 CHLOR 109* 105 107* 106* 111* < > 104 CO2 21* 19* 21* 19* 20* < > 25 CREAT 0.89 1.03 1.16 1.10 1.25* < > 1.35* BUN 43* 42* 38* 39* 42* < > 54* ANION 9 13 9 12 10 < > 11 CA 7.9* 7.7* 7.5* 7.3* 7.8* < > 7.6* TPROT 6.2* 6.0* -- 6.5 6.9 -- 6.2* ALB 1.9* 1.9* -- 1.9* 2.0* -- 2.3* TBILI 0.5 0.6 -- 0.5 0.3 -- 0.7 ALKPHOS 76 59 -- 61 63 -- 74 AST 161* 73* -- 55* 46* -- 54* ALT 56* 31 -- 23 20 -- 23 < > = values in this interval not displayed. Recent Labs 05/01/18 1521 05/01/18 1101 05/01/18 0920 04/30/18 0005 APTT 29.9 33.8* 32.5* 34.1* INR 1.3 1.5* 1.4* 1.5* FIBCT 478* 432* 483* -- VAP Prevention: Chlorhexidine Mouth Care: Yes Stress Ulcer Prophylaxis PPI or H2 antagonist: Yes VTE Prophylaxis: Active VTE Risk Category Order: 04/14/18 2100 VTE RISK CATEGORY: SURGICAL MODERATE RISK ([place], [place]) Active VTE Medication Orders: 05/02/18 0800 HEPARIN 5,000 UNITS INJECTION Active VTE Prophylaxis Orders: 04/28/18 0845 GRADUATED COMPRESSION STOCKINGS ([place], [place]) 04/14/18 2100 PNEUMATIC COMPRESSION STOCKINGS ([place], [place]) 04/14/18 2100 ACTIVITY - MOBILIZE PATIENT ([place], [place]) Anticoagulant AND Antiplatelet Medications Start Dose Route Frequency Ordered Stop 05/02/18 0800 heparin 5,000 Units injection 5,000 Units SUBCUTANEOUS EVERY 12 HOURS 05/02/18 0756 -- I personally reviewed and updated the patient's history and course in the note as well as the assessment AND plan. I discussed the management plan with the RN and RT. SIGNATURE: Steven Sanchez MD, MMM PT NAME: Lazaro Villafana DATE: May 03, 2018 CONSULT PROG Observed: 05/03/2018 Status: COMPLETED Source: [place] 10:55 AM [facility] REPOSITORY HNO ID: [id number] Author: Radha Villgeas Service: Hepatology Author Type: Nurse Practitioner Type: Consult Progress Note Filed: 05/03/2018 11:08 AM Note Text: HEPATOLOGY CONSULT PROGRESS NOTE Service Date 05/03/2018 Patient:Lazaro Villafana Medical Record: [id number] Reason for Initial Consult: TIPS procedure Requesting Service: Thoracic CC: intubated and sedated Interval History: Afebrile, HDS, intubated on MV, sedated Opens eyes to name Bronched this morning Echo normal RV systolic function, EF 66% Liver chemistries stable, INR WNL Current hospital medications: methylPREDNISolone sod succinate(PF) 40 mg injection (SOLU- Medrol) 40 mg INTRAVENOUS q 8 H Parenteral Nutrition - Adult INTRAVENOUS ONCE TPN (2199 START) Chlorhexidine Gluconate 0.12 % 15 mL (PERIDEX) 15 mL ORAL q 6 H heparin 5,000 Units injection 5,000 Units SUBCUTANEOUS q 12 H Parenteral Nutrition - Adult INTRAVENOUS ONCE TPN (2199 START) insulin regular human iv bolus 2-10 Units 2-10 Units INTRAVENOUS PRN insulin regular 250 units in NaCl 0.9% 250 mL iv infusion - HVI CVICU NOMOGRAM 0.5-40 Units/hr INTRAVENOUS CONTINUOUS dextrose 50 % 12.5 g injection 12.5 g INTRAVENOUS PRN perflutren lipid microspheres 1.1 mg/mL 1.3 mL injection (DEFINITY) 1.3 mL INTRAVENOUS DIRECTED PRN sodium chloride 0.65 % 2 [place] (AYR, OCEAN) 2 [place] EACH NOSTRIL 5X/DAY nasal ointment ([facility]) TOPICAL BID NORepinephrine 16 mg in D5W 250 mL (LEVOPHED) 0.6-30 mcg/min INTRAVENOUS CONTINUOUS propofol infusion (DIPRIVAN) 5-60 mcg/kg/min INTRAVENOUS CONTINUOUS dextrose 5% in water iv infusion 5-30 mL/hr INTRAVENOUS CONTINUOUS metoprolol 10 mg injection (LOPRESSOR) 10 mg INTRAVENOUS q 6 HR OLANZapine orally disintegrating 10 mg tab(s) (ZyPREXA ZYDIS) 10 mg ORAL AT BEDTIME lidocaine 5 % 1 Patch (LIDODERM) 1 Patch TRANSDERMAL DAILY lidocaine patch - REMOVE OTHER AT BEDTIME lidocaine - VERIFY PATCH OTHER q 8 H labetalol 10 mg injection syringe (NORMODYNE) 10 mg INTRAVENOUS q 2 H PRN vancomycin iv piggyback 1 g in D5W 200 mL (VANCOCIN) 1 g INTRAVENOUS q 12 HR aztreonam 2 g in D5W 100 mL MB+ (AZACTAM) 2 g INTRAVENOUS q 6 HR fluconazole 400 mg in NaCl (iso-osmotic) 200 mL (DIFLUCAN) 400 mg INTRAVENOUS DAILY vancomycin dosing and monitoring per pharmacy OTHER As Directed potassium chloride iv piggyback 20 mEq/100 mL 20 mEq INTRAVENOUS PRN potassium chloride 20-80 mEq CUP 20-80 mEq ORAL/FEEDING TUBE PRN magnesium sulfate in water 2 g in sterile water 50 ml 2 g INTRAVENOUS PRN dextrose 40 % 15 g 15 g ORAL PRN glucagon 1 mg injection (GLUCAGEN) 1 mg INTRAMUSCULAR PRN NaCl 0.9% 3-5 mL 3-5 mL INTRAVENOUS q 12 H fentaNYL 50 mcg/mL 25-50 mcg injection (SUBLIMAZE) 25-50 mcg INTRAVENOUS q 1 H PRN metroNIDAZOLE 500 mg PREMIX piggyback (FLAGYL) 500 mg INTRAVENOUS q 8 H ipratropium-albuterol 3 mL nebulizer solution (DUONEB) 3 mL INHALATION q 4 H PRN pantoprazole 40 mg injection (PROTONIX) 40 mg INTRAVENOUS BID AC (0600/1600) Physical Exam: Vital Signs: 05/03/18 0830 05/03/18 0900 05/03/18 0930 05/03/18 1000 BP: Pulse: 88 85 85 89 Resp: Temp: TempSrc: SpO2: 97% 98% 97% 95% Weight: Height: VITAL SIGNS: BP 166/69 Pulse 89 Temp (Src) 99.3 (Oral) Resp 13 Ht 5' 10 (1.78m) Wt 260 lb 9.3 oz (118.2kg) SpO2 95% BMI 37.39 kg/(m2). General appearance:sedated, intubated in no acute distress Eyes: anicteric Lungs: breath sounds decreased bilateral bases, CT x3 Heart: RRR Abdomen:round, non tense, +shiftting dullness, +bowel sounds, NG non bloody ouptu Extremities: pitting lower extremity edema Neuro: opens eyes to name Intake/Output Summary (Last 24 hours) at 05/03/18 1056 Last data filed at 05/03/18 0930 Gross per 24 hour Intake 5731.6 ml Output 5405 ml Net 326.6 ml Diagnostic Testing: Labs: CBC, Coags, BMP, Mg, Phos Recent Labs 05/03/18 0818 05/03/18 0338 05/03/18 0054 05/02/18 2257 05/02/18 0248 05/01/18 1521 05/01/18 1101 05/01/18 0920 WBC -- -- 13.83* -- -- 7.56 -- 14.41* -- -- -- -- HB -- -- 10.5* -- -- 9.8* -- 9.6* -- -- -- -- HCT -- -- 31.9* -- -- 29.8* -- 30.1* -- -- -- -- PLT -- -- 166 -- -- 124* -- 194 -- 202 -- 206 INR -- -- -- -- -- -- -- 1.3 -- 1.5* -- 1.4* APTT -- -- -- -- -- -- -- 29.9 -- 33.8* -- 32.5* NA -- -- 139 -- -- 137 -- 137 -- -- -- -- K -- -- 4.9 -- -- 4.2 -- 5.2* -- -- -- -- CHLOR -- -- 109* -- -- 105 -- 107* -- -- -- -- CO2 -- -- 21* -- -- 19* -- 21* -- -- -- -- BUN -- -- 43* -- -- 42* -- 38* -- -- -- -- CREAT -- -- 0.89 -- -- 1.03 -- 1.16 -- -- -- -- GLUC -- -- 194* -- -- 257* -- 188* -- -- -- -- IC 1.22 1.19 -- 1.16 < > -- < > -- < > -- < > -- CA -- -- 7.9* -- -- 7.7* -- 7.5* -- -- -- -- MG -- -- 2.1 -- -- 1.9 -- 1.6* -- -- -- -- P -- -- 3.7 -- -- 2.9 -- 4.7 -- -- -- -- < > = values in this interval not displayed. Liver Function, Amylase, AND Lipase Recent Labs 05/03/18 0818 05/03/18 0338 05/03/18 0054 05/02/18 2257 05/02/18 0248 05/01/18 0156 TPROT -- -- 6.2* -- -- 6.0* -- 6.5 ALB -- -- 1.9* -- -- 1.9* -- 1.9* ALT -- -- 56* -- -- 31 -- 23 AST -- -- 161* -- -- 73* -- 55* ALKPHOS -- -- 76 -- -- 59 -- 61 TBILI -- -- 0.5 -- -- 0.6 -- 0.5 LACT 1.3 1.2 -- 1.4 < > -- < > -- < > = values in this interval not displayed. MELD-Na score: 9 at 05/03/2018 12:54 AM MELD score: 9 at 05/03/2018 12:54 AM Calculated from: Serum Creatinine: 0.89 mg/dL (Rounded to 1) at 05/03/2018 12:54 AM Serum Sodium: 139 mmol/L (Rounded to 137) at 05/03/2018 12:54 AM Total Bilirubin: 0.5 mg/dL (Rounded to 1) at 05/03/2018 12:54 AM INR(ratio): 1.3 at 05/01/2018 3:21 PM Age: 52 years Reviewed: Most recent labs Impression:??? Lazaro Villafana is a 52 year old gentleman with history notable for presumed EtOH related cirrhosis with risk factors for BOONE with disease course c/b portal HTN (EV) who presented with complaints?of several day history of nausea, vomiting, melena, and hematemesis prompting tony tube placement at that time (unsure if gastric vs. Gastric and esophageal balloon inflated) found to have partial thickness esophageal tear and large EV. ? His hospital course c/b mediastinitis with fevers an purulent chest tube output on vancomycin/aztreonam/diflucan, respiratory failure requiring intubation now extubated (04/22) and stable from pulmonary standpoint, and on TPN. ? S/p TIPS 04/30 with sinusoidal gradient form 18->4mmHg ?? XR Esophagram with persistent leak now s/p Rt VATS, R thoracotomy, R pleural decortication, repair of esophageal perforation ? Hepatology consulted for TIPS evaluation to decompress portal system prior to thoracic intervention. He does have a hx of encephalopathy in the past ? Recommendations:? --Echo done, no concern for pulmonary HTN, normal RV systolic function --- Has increased risk of post-TIPS encephalopathy given hx of prior encephalopathy; this can be monitored post-procedurally and TIPS can be adjusted after thoracic intervention completed if patient develops encephalopathy --Will need liver vasculature in 3 days to assess TIPS patency --If develops signs of HE start lactulose 20 gms QID and titrate to 3-4 bowel movements daily -Paracentesis PRN will need to be done bedside, please send for cellcount, culture, albumin, protein and cytology. --CMP and INR daily Hepatology will sign off for now, please contact with questions or concerns. SIGNATURE: Radha Villegas NP-C PATIENT NAME: Lazaro Villafana DATE: May 03, 2018 TIME: 10:56 AM PAGER/CONTACT #: [phone] ? AMMONIA Collected: 05/03/2018 Status: F Source: [place] 9:30 AM [facility] REPOSITORY TYPE CODE TESTS RESULT OUT OF REFERENCE UNITS RANGE LAB NH3 16-60 umol/L Ammonia 59 Performed By: #### NH3 #### [facility] [address] [place], [place] [address] XR CHEST 1V FRONTAL Observed: 05/03/2018 Status: F Source: [facility] 8:24 AM [facility] REPOSITORY * * *Final Report* * * DATE OF EXAM: May 03 2018 8:24AM JIX [id number] - XR CHEST 1V FRONTAL PORT / PROCEDURE REASON: Post-operative / post-procedure assessment, asymptomatic * * * * Physician Interpretation * * * * EXAMINATION: CHEST RADIOGRAPH (PORTABLE SINGLE VIEW AP) Exam Date/Time: 05/03/2018 8:24 AM Clinical History: Post-operative / post-procedure assessment, asymptomatic, MQ: [id number] Comparison: Earlier same day at 2:13 AM RESULT: See impression. IMPRESSION: Lines, tubes, and devices: Stable multiple life support devices. Esophageal stent overlying inferior T8 level, extending into the stomach with smooth narrowing of the luminal diameter about the level of the esophageal hiatus noted. GI clips suggested epigastric region. Mildly lordotic projection. Lungs and pleura: No large pneumothorax. Bilateral interstitial opacities noted, and scattered heterogeneous opacities suggestive of atelectasis and possible edema. Right pleural effusion noted, into the right interlobar fissures associated atelectasis presumed. Cardiomediastinal silhouette: Presumed stable cardiomediastinal silhouette, with partial obscuration of the right heart border. Other: . Steel Turner: PSCB Transcribe Date/Time: May 03 2018 9:08A Dictated by : ARABELLA CRUZ MD This examination was interpreted and the report reviewed and electronically signed by: ARABELLA CRUZ MD on May 03 2018 9:12AM EST [id number] GASA + ALL Collected: 05/03/2018 Status: F Source: [place] FOR 8:18 AM [facility] USE ONLY REPOSITORY TYPE CODE TESTS RESULT OUT OF REFERENCE UNITS RANGE LAB PH 7.35-7.45 pH Low 7.33 LAB PCO2 34-46 mm Hg pCO2 42 LAB PO2 85-95 mm Hg pO2 High 124 LAB BE mmol/L Base Excess NEG 4 LAB HCO3 22-26 mmol/L Bicarbonate Low 21 LAB CO2CT 22.0-28.0 mmol/L CO2 Content 22 LAB O2HB 95-98 % Oxyhemoglobin, Art. 96 LAB COHB 0-5.0 % Carboxyhemoglobin,A 1.0 rt LAB MHGB 0.4-1.5 % Methemoglobin 0.9 LAB TEMP C Temperature, Body 37.0 LAB PHTC 7.35-7.45 pH, Temp Low Corrected 7.33 LAB PCO2T 34-46 mm Hg pCO2, Temp Correct 42 LAB PO2T mm Hg pO2, Temp Corrected 124 LAB NAB 135-146 mmol/L Sodium,Whole Bld 139 LAB KWB 3.5-5.0 mmol/L Potassium, Whole Bld 4.3 LAB HGBB 13.0-17.0 g/dL Low Hemoglobin,Total,AC 10.3 L LAB HCTB 39.0-51.0 % Hematocrit, ACL Low 32 LAB IC 1.08-1.30 mmol/L Calcium, Ion, WB 1.22 LAB GLB 60-105 mg/dL Glucose,Whole Bld High 154 LAB LACT 0.5-2.2 mmol/L Lactate 1.3 Performed By: #### ALLBG #### [facility] [address] [place], [place] [address] PROGRESS Observed: 05/03/2018 Status: COMPLETED Source: [place] 7:53 AM [facility] REPOSITORY HNO ID: [id number] Author: Maggy (Lab Animal Technologist) JAQUELIN Salas Service: Respiratory Therapy Author Type: Respiratory Therapist Type: Progress Notes Filed: 05/03/2018 7:54 AM Note Text: Pt placed on 100% FiO2 and bronched per Dr. Arita for small amount of secretions. No complications. PROCEDURE Observed: 05/03/2018 Status: COMPLETED Source: [place] 7:41 AM [facility] REPOSITORY HNO ID: [id number] Author: Yaneli (Res) Juan J Service: Thoracic Surgery Author Type: Resident Type: Procedures Filed: 05/03/2018 7:43 AM Note Text: BEDSIDE PROCEDURE NOTE BRONCHOSCOPY Date/Start Time: 05/03/2018 7:35 AM Performed by: YANELI ARITA (RES) Authorized by: GARRISON GR Consent/[place] Protocol Written consent obtained: No, emergent procedure Sign In Communication: Completed Pre-procedure Details: PPE Used: Mask with eye shield Medications: Analgesia and sedation Analgesia (see MAR): Fentanyl Sedation (see MAR): Propofol Procedure Details: Type: Standard Indication: Respiratory failure The bronchoscope was introduced via endotracheal tube. Maneuvers Performed: BAL and suctioning BAL - Location: Right lower lobe BAL - Returned Fluid Description: Thick, mucoid and hugo/brown Bronchoscope Out Time: 05/03/2018 7:39 AM Post-procedure Details: Patient tolerated the procedure well with no immediate complications Estimated Blood Loss: None Specimens Sent: None SIGNATURE: Yaneli Arita MD PATIENT NAME: Lazaro Villafana DATE: May 03, 2018 TIME: 7:41 AM PAGER/CONTACT #: CONSULT PROG Observed: 05/03/2018 Status: COMPLETED Source: [place] 5:44 AM [facility] REPOSITORY HNO ID: [id number] Author: Leena Li Service: Infectious Disease Author Type: Physician Type: Consult Progress Note Filed: 05/03/2018 4:12 PM Note Text: INFECTIOUS DISEASES PROGRESS NOTE Patient Name: Lazaro Villafana Account #: Data Unavailable Admission Date: 04/14/2018 Date of Evaluation: 05/03/2018 Time of Evaluation: 10:20 AM INTERVAL HPI: Afebrile for > 24 hours, fluctuating leukocytosis. S/p VATS decortication 05/01/18 with cultures in process but all stains/smears negative. On TPN, still intubated and sedated. Broad-spectrum antibiotics continued. BAL completed this AM with thick dark secretions noted. Attempted extubation today failed, now back on sedation with propofol, precedex. U/S upper and lower extremities completed today for swelling and all negative for DVT. Metronidazole 04/15 Fluconazole 04/15 Vancomycin 04/20 Aztreonam 04/22 MEDICATIONS: Current hospital medications: Chlorhexidine Gluconate 0.12 % 15 mL (PERIDEX) 15 mL ORAL q 6 H heparin 5,000 Units injection 5,000 Units SUBCUTANEOUS q 12 H Parenteral Nutrition - Adult INTRAVENOUS ONCE TPN (0 START) insulin regular human iv bolus 2-10 Units 2-10 Units INTRAVENOUS PRN insulin regular 250 units in NaCl 0.9% 250 mL iv infusion - HVI CVICU NOMOGRAM 0.5-40 Units/hr INTRAVENOUS CONTINUOUS dextrose 50 % 12.5 g injection 12.5 g INTRAVENOUS PRN perflutren lipid microspheres 1.1 mg/mL 1.3 mL injection (DEFINITY) 1.3 mL INTRAVENOUS DIRECTED PRN sodium chloride 0.65 % 2 [place] (AYR, OCEAN) 2 [place] EACH NOSTRIL 5X/DAY nasal ointment ([facility]) TOPICAL BID NORepinephrine 16 mg in D5W 250 mL (LEVOPHED) 0.6-30 mcg/min INTRAVENOUS CONTINUOUS propofol infusion (DIPRIVAN) 5-60 mcg/kg/min INTRAVENOUS CONTINUOUS dextrose 5% in water iv infusion 5-30 mL/hr INTRAVENOUS CONTINUOUS metoprolol 10 mg injection (LOPRESSOR) 10 mg INTRAVENOUS q 6 HR OLANZapine orally disintegrating 10 mg tab(s) (ZyPREXA ZYDIS) 10 mg ORAL AT BEDTIME lidocaine 5 % 1 Patch (LIDODERM) 1 Patch TRANSDERMAL DAILY lidocaine patch - REMOVE OTHER AT BEDTIME lidocaine - VERIFY PATCH OTHER q 8 H labetalol 10 mg injection syringe (NORMODYNE) 10 mg INTRAVENOUS q 2 H PRN vancomycin iv piggyback 1 g in D5W 200 mL (VANCOCIN) 1 g INTRAVENOUS q 12 HR aztreonam 2 g in D5W 100 mL MB+ (AZACTAM) 2 g INTRAVENOUS q 6 HR fluconazole 400 mg in NaCl (iso-osmotic) 200 mL (DIFLUCAN) 400 mg INTRAVENOUS DAILY vancomycin dosing and monitoring per pharmacy OTHER As Directed potassium chloride iv piggyback 20 mEq/100 mL 20 mEq INTRAVENOUS PRN potassium chloride 20-80 mEq CUP 20-80 mEq ORAL/FEEDING TUBE PRN magnesium sulfate in water 2 g in sterile water 50 ml 2 g INTRAVENOUS PRN dextrose 40 % 15 g 15 g ORAL PRN glucagon 1 mg injection (GLUCAGEN) 1 mg INTRAMUSCULAR PRN NaCl 0.9% 3-5 mL 3-5 mL INTRAVENOUS q 12 H fentaNYL 50 mcg/mL 25-50 mcg injection (SUBLIMAZE) 25-50 mcg INTRAVENOUS q 1 H PRN metroNIDAZOLE 500 mg PREMIX piggyback (FLAGYL) 500 mg INTRAVENOUS q 8 H ipratropium-albuterol 3 mL nebulizer solution (DUONEB) 3 mL INHALATION q 4 H PRN pantoprazole 40 mg injection (PROTONIX) 40 mg INTRAVENOUS BID AC (0600/1600) PHYSICAL EXAM: BP 166/69 Pulse 91 Temp 36.9 ?C (98.4 ?F) (Axillary) Resp 16 Ht 177.8 cm (5' 10) Wt 118.2 kg (260 lb 9.3 oz) SpO2 96% BMI 37.39 kg/m? Lines: Nontunnelled triple lumen 1/9 Left neck, L a-line, R nares NGT L nares nasal packing ?SKIN: No lesions noted. EYES: PERRLA NECK: L nontunnelled triple lumen catheter with no overlying erythema, swelling or warmth. LUNGS: clear to auscultation, no wheezes, or crackles. HEART: ?Regular rate/rhythm, normal heart sounds, and no murmurs. ABDOMEN: Soft, epigastric tenderness, hypoactive BS EXTREMITIES: Edema of all four extremities. Three right-sided chest tubes with dark fluid output, mcclain TPN, insulin infusion, propofol Labs: WBC 13.83, Hgb 10.5, Plt 166, Cr 0.89 Micro and radiology personally reviewed 04/14/18: Quantiferon gold testing negative for TB 04/14/18: Blood cultures 04/19 no growth 04/14/18: MSSA nasal swab positive 04/17/18: MSSA nasal swab positive 04/17/18: Blood cultures 2/2 no growth 04/20/18: Blood cultures 2/2 no growth 04/20/18: Tracheal aspirate cultures no organisms on gram stain and no growth on culture 04/22/18: Fungitell negative 04/23/18: Sputum cultures normal abby 04/24/18: Staphylococcal nasal swab negative 04/27/18: Blood cultures 2/2 no growth 04/30/18: HCV Ab negative 04/30/18: HIV Ag/Ab negative 05/01/18: Staphylococcal nasal swab negative 05/01/18: right pleural tissue gram stain negative, cultures all pending EGD 04/27/18: Impression: ? - Mucosal tear in the middle third of the esophagus ? healing well. ? - Portal hypertensive gastropathy. ? - Normal examined duodenum. ? - Feeding tube placement was successfully performed. ? Please confirm placement with KUB. ? - No specimens collected. Esophagram 04/27/18: PERSISTENT RIGHT MIDESOPHAGEAL PERFORATION DESCRIBED, CORRELATING WITH PRIOR. CT Chest 04/28/18: IMPRESSION: 1. ?Small to medium-sized right sided hydropneumothorax is stable in size since the prior chest CT dated 04/24/2018 with right thoracostomy tube in stable position. ?Adjacent dependent airspace opacity primarily in the right lower lobe has mildly improved in the interval and most likely represents either atelectasis or pneumonia/aspiration. 2. ?Previously seen bilateral airspace opacities, some of which were ground-glass or centrilobular in distribution have overall improved although have not resolved and may be due to either edema and/or infectious/inflammatory in etiology such as due to aspiration. ?No new airspace opacity has developed in the interval. 3. ?Persistent linear tract of gas extending from the right lateral mid to distal aspect of the esophagus which communicates with the right pleural space, in keeping with the known fistula as seen on the recent esophagram study. ?High attenuation material in the dependent right pleural space is nonspecific and may represent either contrast material from an esophagram study versus blood products. ?Correlate with the chest tube output for the presence of blood. 4. ?Stable mediastinal and right hilar lymphadenopathy, probably reactive. 5. ?Mild ascites in the upper abdomen, unchanged. IMPRESSION / PLAN 52 yo M with a h/o cirrhosis, EtoH related, CKD, COPD and reported + PPD in the past. Currently no clinical or imaging evidence of active pulmonary TB. Presenting with hemorrhagic shock secondary to hematemesis/esophageal tear c/b pneumomediastinum; no surgical intervention planned at this time. EGD 04/26/18 with reported improvement in esophageal tear (31-38cm). Esophageal stent placed last week, to be removed in four weeks. Maintained on TPN. Intubated, sedated. S/p TIPS 04/30/18: SUCCESSFUL TRANSJUGULAR JS-SYSTEMIC SHUNT. ?PATIENT WILL REQUIRE HEPATIC VASCULAR/TIPS ULTRASOUND FOR BASELINE VELOCITIES IN 4-5 DAYS. PORTOATIRAL GRADIENT WAS REDUCED FROM 18 MM HG TO 4 MM HG. ? 05/01/2018 Right VATS exploration, Right thoracotomy, Total right pleural decortication, primary repair of esophageal perforation with intercostal muscle flap, bronchoscopy and esophagoscopy. Surgical pathology pending. Plan: - continue vancomycin (goal trough 15-25), aztreonam, metronidazole, fluconazole as ordered for now until decortication tissue cultures finalize - HIV Ag/Ab and Hepatitis C Antibody screening: negative Will discuss with attending, Perla Delgado PGY4 [facility] STAFF PHYSICIAN NOTE OF PERSONAL INVOLVEMENT IN CARE Events reviewed. Patient examined. Findings as outlined in the fellow's note above. Jang elements verified. ? Relevant lab data, microbiology and imaging data reviewed. Relevant images personally reviewed. ? Agree with assessment and plan as outlined in the fellow's note above. I was physically present for the critical portions of the service provided by the ID team. The management plan reflects my input. ? Marguerite Li MD Staff, Department of Infectious Disease Pager: [phone] GASA + ALL Collected: 05/03/2018 Status: F Source: [facility] 3:38 AM [facility] REPOSITORY TYPE CODE TESTS RESULT OUT OF REFERENCE UNITS RANGE LAB PH 7.35-7.45 pH Low 7.34 LAB PCO2 34-46 mm Hg pCO2 40 LAB PO2 85-95 mm Hg pO2 High 116 LAB BE mmol/L Base Excess NEG 4 LAB HCO3 22-26 mmol/L Bicarbonate Low 21 LAB CO2CT 22.0-28.0 mmol/L CO2 Content 22 LAB O2HB 95-98 % Oxyhemoglobin, Art. 98 LAB COHB 0-5.0 % Carboxyhemoglobin,A 0.0 rt LAB MHGB 0.4-1.5 % Methemoglobin 0.4 LAB TEMP C Temperature, Body 37.0 LAB PHTC 7.35-7.45 pH, Temp Low Corrected 7.34 LAB PCO2T 34-46 mm Hg pCO2, Temp Correct 40 LAB PO2T mm Hg pO2, Temp Corrected 116 LAB NAB 135-146 mmol/L Sodium,Whole Bld 139 LAB KWB 3.5-5.0 mmol/L Potassium, Whole Bld 4.5 LAB HGBB 13.0-17.0 g/dL Low Hemoglobin,Total,AC 10.6 L LAB HCTB 39.0-51.0 % Hematocrit, ACL Low 33 LAB IC 1.08-1.30 mmol/L Calcium, Ion, WB 1.19 LAB GLB 60-105 mg/dL Glucose,Whole Bld High 189 LAB LACT 0.5-2.2 mmol/L Lactate 1.2 Performed By: #### ALLBG #### [facility] [address] [place], [place] [address] XR CHEST 1V FRONTAL Observed: 05/03/2018 Status: F Source: [facility] 2:13 AM [facility] REPOSITORY * * *Final Report* * * DATE OF EXAM: May 03 2018 2:13AM [id number] - XR CHEST 1V FRONTAL PORT / PROCEDURE REASON: Acute respiratory illness * * * * Physician Interpretation * * * * CHEST RADIOGRAPH (PORTABLE SINGLE VIEW AP) Exam Date/Time: 05/03/2018 2:13 AM Indications: Acute respiratory illness MQ: [id number]_5 Comparison: Earlier the same day RESULTS: See Impression. IMPRESSION: Lines, Tubes, and Devices: Stable support lines and tubes. Lungs and Pleura: Right greater than left effusions and scattered lung opacities similar to prior. No pneumothorax. Cardiomediastinal silhouette: Stable cardiac silhouette. Steel Turner: NIDHI Transcribe Date/Time: May 03 2018 6:51A Dictated by : JUANCARLOS AHUMADA MD This examination was interpreted and the report reviewed and electronically signed by: JUANCARLOS AHUMADA MD on May 03 2018 6:52AM EST [id number] CBC Collected: 05/03/2018 Status: F Source: [place] 12:54 AM [facility] REPOSITORY TYPE CODE TESTS RESULT OUT OF REFERENCE UNITS RANGE LAB WBC 3.70-11.00 k/uL WBC High 13.83 LAB RBC 4.20-6.00 m/uL Low RBC 3.54 LAB HGB 13.0-17.0 g/dL Low Hemoglobin 10.5 LAB HCT 39.0-51.0 % Low Hematocrit 31.9 LAB MCV 80.0-100.0 fL MCV 90.1 LAB MCH 26.0-34.0 pG MCH 29.7 LAB MCHC 30.5-36.0 g/dL MCHC 32.9 LAB RDWCV 11.5-15.0 % RDW-CV High 16.0 LAB PLTCT 150-400 k/uL Platelet Count 166 LAB MPV 9.0-12.7 fL MPV 11.5 LAB ABSNUC <0.01 k/uL Absolute nRBC <0.01 Performed By: #### CBC, CMP, MG1, PHOS #### [facility] [address] [id number] COMP METABOLIC PANEL Collected: 05/03/2018 Status: F Source: [place] 12:54 AM [facility] REPOSITORY TYPE CODE TESTS RESULT OUT OF REFERENCE UNITS RANGE LAB TP 6.3-8.0 g/dL Low Protein, Total 6.2 LAB ALB 3.9-4.9 g/dL Low Albumin 1.9 LAB CA 8.5-10.2 mg/dL Low Calcium, Total 7.9 LAB TBIL 0.2-1.3 mg/dL Bilirubin, Total 0.5 LAB ALKP 38-113 U/L Alkaline Phosphatase 76 LAB AST 14-40 U/L AST High 161 LAB GLU 74-99 mg/dL Glucose High 194 Result Comment: The [place] [employer] Association (ADA) provides guidance for cutoff values for fasting glucose and random glucose. The ADA defines fasting as no caloric intake for at least 8 hours. Fas ting plasma glucose results between 100 to 125 mg/dL indicate increased risk for diabetes (prediabetes). Fasting plasma glucose results greater than or equal to 126 mg/dL meet the criteria for diagnosis of diabetes. In the absence of unequivocal hyperglycemia, results should be confirmed by repeat testing. In a patient with classic symptoms of hyperglycemia or hyperglycemic crisis, random plasma glucose results greater than or equal to 200 mg/dL meet the criteria for diagnosis of diabetes. Reference: Standards of Medical Care in Diabetes 2016, [place] [employer] Association. Diabetes Care. 2016.39(Suppl 1). LAB BUN 9-24 mg/dL BUN High 43 LAB CRET 0.73-1.22 mg/dL Creatinine 0.89 LAB NA 136-144 mmol/L Sodium 139 LAB K 3.7-5.1 mmol/L Potassium 4.9 LAB CL 97-105 mmol/L Chloride High 109 LAB CO2 22-30 mmol/L Low CO2 21 LAB AGAP 9-18 mmol/L Anion Gap 9 LAB ALT 10-54 U/L ALT High 56 LAB GFRAA eGFR- Amer. >60 LAB GFRNAA . eGFR-All Other Races >60 Result Comment: eGFR (Estimated GFR) Units of measure: mL/min/1.73 meters squared eGFR is derived from the reexpressed MDRD Study equation using the following parameters: serum creatinine, age, gender and race. The creatinine assay has been calibrated to be traceable to IDMS. An eGFR <60 mL/min/1.73m2 for >3 months is consistent with chronic kidney disease. Refer to KDOQI guidelines for clinical interpretation. In patients with unstable renal function, e.g. those with acute kidney injury, the eGFR may not accurately reflect actual GFR. Performed By: #### CBC, CMP, MG1, PHOS #### [facility] [address] [place], [place] [address] MAGNESIUM Collected: 05/03/2018 Status: F Source: [place] 12:[address] [facility] REPOSITORY TYPE CODE TESTS RESULT OUT OF REFERENCE UNITS RANGE LAB MG 1.7-2.3 mg/dL Magnesium 2.1 Performed By: #### CBC, CMP, MG1, PHOS #### [facility] [address] [place], [place] [address] PHOSPHORUS Collected: 05/03/2018 Status: F Source: [place] 12:54 AM [facility] REPOSITORY TYPE CODE TESTS RESULT OUT OF REFERENCE UNITS RANGE LAB PHOS 2.7-4.8 mg/dL Phosphorus 3.7 Performed By: #### CBC, CMP, MG1, PHOS #### [facility] [address] [place], [place] [address] AMMONIA Collected: 05/03/2018 Status: F Source: [place] 12:41 AM [facility] REPOSITORY TYPE CODE TESTS RESULT OUT OF REFERENCE UNITS RANGE LAB NH3 16-60 umol/L High Ammonia 61 Performed By: #### NH3 #### [facility] [address] [place], [place] [address] GASA + ALL Collected: 05/02/2018 Status: F Source: [facility] 10:57 PM [facility] USE ONLY REPOSITORY TYPE CODE TESTS RESULT OUT OF REFERENCE UNITS RANGE LAB PH 7.35-7.45 pH 7.41 LAB PCO2 34-46 mm Hg pCO2 Low 33 LAB PO2 85-95 mm Hg pO2 High 114 LAB BE mmol/L Base Excess NEG 3 LAB HCO3 22-26 mmol/L Bicarbonate Low 21 LAB CO2CT 22.0-28.0 mmol/L CO2 Content 22 LAB O2HB 95-98 % Oxyhemoglobin, Art. 97 LAB COHB 0-5.0 % Carboxyhemoglobin,A 0.8 rt LAB MHGB 0.4-1.5 % Methemoglobin 0.7 LAB TEMP C Temperature, Body 37.0 LAB PHTC 7.35-7.45 pH, Temp Corrected 7.41 LAB PCO2T 34-46 mm Hg pCO2, Temp Low Correct 33 LAB PO2T mm Hg pO2, Temp Corrected 114 LAB NAB 135-146 mmol/L Sodium,Whole Bld 140 LAB KWB 3.5-5.0 mmol/L Potassium, Whole Bld 4.7 LAB HGBB 13.0-17.0 g/dL Low Hemoglobin,Total,AC 10.8 L LAB HCTB 39.0-51.0 % Hematocrit, ACL Low 33 LAB IC 1.08-1.30 mmol/L Calcium, Ion, WB 1.16 LAB GLB 60-105 mg/dL Glucose,Whole Bld High 165 LAB LACT 0.5-2.2 mmol/L Lactate 1.4 Performed By: #### ALLBG #### [facility] [address] [place], [place] [address] NUTRITION Observed: 05/02/2018 Status: COMPLETED Source: [place] 8:[address] [facility] REPOSITORY HNO ID: [id number] Author: Sari Weston Service: NST-Nutrition Support Team Author Type: Registered Dietitian Type: Nutrition Filed: 05/02/2018 8:34 PM Note Text: NUTRITION SUPPORT TEAM PROGRESS NOTE SERVICE DATE: 05/02/2018 SERVICE TIME: 1030 RECOMMENDED DIAGNOSIS: NO MALNUTRITION IDENTIFIED per Registered Dietitian on 04/28 NUTRITION CARE PLAN Intervention: 1. ?Continue TPN ?- PN to provide 120gms 15% AA, 980 dextrose calories, 1800ml?at 75ml/hr ?- orders pended with incr MgSO4, Incr NaPhos, reduced KPhos, incr Na+ acetate?MVI, MTE, 70u insulin (1:4 ratio), 100mg thiamine - adj PN with propofol infusion 2. ?250ml IVPB lipids 20% fat emulsion MWF started 04/27; d/c'd 05/02 with pt on propofol ? Monitor and Evaluation: Goal: Meet >75% of estimated needs Monitor fluid/electrolyte balance Monitor labs, I/Os, vital signs, weight ? Discharge Nutrition Recommendations:? To be determined ? 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 Patient initially presented with hematemesis and melena with accompanying dizziness and shortness of breath. Transferred to [facility] on 04/14 for further management. s/p EGD 04/15?which showed a deep esophageal tear. ?Plan for a minimum of NPO x 2 weeks. ?04/16 Right chest tube placed for effusion. ?Esophagram (04/27/18): Persistent right mid-esophageal perforation; GI c/s and plan for esophageal stent placement tomorrow. s/p EGD 04/29: Esophageal stent successfully placed in Q3. Acute pulmonary insufficiency following non-thoracic surgery requiring intubation. Respiratory status improved with placement of CT to sxn. s/p TIPS 04/30 Interval History: TPN continues. NG in place Pt is afebrile with Tmax: 36.4 Resp: intubated I/O's: Intake/Output Summary (Last 24 hours) at 05/02/182022 Last data filed at 05/02/18 1830 Gross per 24 hour Intake 5056 ml Output 4570 ml Net 486 ml overall +6779.8 Abdomen: not assessed Last BM: 05/01 Enteral access: ?n/a; NG to LIWS Parenteral access: ?left IJ TLC placed 04/27 Labs: hypocapnia, hyperglycemia, Mg and PO4 suboptimal, lactate 1.7, ionized calcium 1.20 Blood Gases: pH 7.36, pCO2 34, HCO3 19 Blood sugars: 280, 207 Cultures: blood cx x 2 no growth x 5 days Imaging: n/a Nutritional Intake: Intake History BI DATA ARCHITECT: Unable to determine Current intake: 04/17: ?Average 5 day intakes meeting <50% of estimated energy need.s started on PN 04/17 due to esophageal tear, plan for NPO x 2 weeks 04/18: currently goal kcals, PN 940 kcals, 110 g pro + propofol 765 kcals/day 12: ?TPN wirh orders 04/17 - 04/19 to provide 110gms protein and 940 claories + additional calories from propofol (04/19 provided 626 calories) 04/21 - 04/22: ?PN with orders 04/20 - 04/21?to provide 100gms protein and 1000 calories + additional calories from propofol 04/25: ?PN with orders 04/22 - 04/24 to provide 110gms protein and 1040 calories 04/26 - 04/27: ?PN with orders 04/25 - 04/26?to provide 120gms protein and 1600 calories 04/28: PN with orders 04/27 to provide 120 gms protein and 1650 calories 04/29 - 05/02: PN with orders 04/28 - 05/01 to provides 120 g protein and 1650 kcals + additonal calories from propofol; propofol restarted ? 250ml IVPB lipids 20% fat emulsion MWF started 04/27; d/c today - 05/02 with pt on propofol. Current Diet Order DIET NPO Lines and Drains: Central Line Triple Lumen 04/27/18 Non-tunneled Left Neck (Active) Introducer 05/01/18 Right Groin (Active) GI Feed/Drain 05/01/18 Assessment Nasogastric Right Naris 14 Fr (Active) Indwelling Urinary Catheter 04/29/18 2030 Mcclain 18 Fr (Active) Chest Tube 05/01/18 1218 Right Pleural Tube #1 (Active) Chest Tube 05/01/18 1219 Right Pleural 28 Fr Tube #2 (Active) Chest Tube 05/01/18 1219 Right Pleural Tube #3 (Active) Height: 177.8 cm (5' 10) Admission Weight: 106.1 kg (233 lb 14.5 oz) Current Weight: 118.2 kg (260 lb 9.3 oz) Body mass index is 37.39 kg/m?. Usual body weight ?Unable to determine? No weight history available. Estimated nutrition goals: [place] body weight: 75.4 kg Dosing weight: 106?kg (04/14; BMI 33.5kg/m2)?? Calorie needs 2480-9988?kilocalories determined by = 15-20?kcals/kg ?Dosing?weight? Protein needs: 90 - 121?grams determined by 1.2 -1.6g/kg ideal?weight?- due to CKD Temp (24hrs), Av.1 ?C (96.9 ?F), Min:35.7 ?C (96.3 ?F), Max:36.4 ?C (97.5 ?F) Recent Labs 05/02/18 0248 GLUC 257* BUN 42* CREAT 1.03 NA 137 K 4.2 CHLOR 105 CO2 19* ALB 1.9* P 2.9 HB 9.8* HCT 29.8* WBC 7.56 MG 1.9 Surgical Incision 05/01/18 Thoracotomy - Right (Active) Dressing Status Initial Post-Op Dressing Intact 05/02/2018 7:30 AM Frequency of Dressing Change Other: See Comment 05/02/2018 7:30 AM Dressing Change Due 05/04/18 05/02/2018 7:30 AM Dressing /Treatment Type Dry Sterile Dressing 05/02/2018 7:30 AM Incision Closures Other: See Comment 05/02/2018 7:30 AM Drainage Description None 05/02/2018 7:30 AM Drainage Amount None 05/02/2018 7:30 AM Edges Other: See Comment 05/02/2018 7:30 AM Hematoma No 05/02/2018 7:30 AM Number of days: 1 Vitamin and Mineral Labs in the past year:No results for input(s): CHROMIUM, COPPER, MANGANESE, SELENIUM, VITAMINA, VITB1, VITB2, VITB6, B12, METHYLMAL, VITD25, VITAMINE, VITAK, ZINC, TIBC, FE, JOHANNY in the last 8784 hours. MNT Billing Type: Re-assess/15 min 2 units SIGNATURE: Sari Weston RD [facility] PATIENT NAME: Lazaro Villafana DATE: May 02, 2018 TIME: 8:15 PM PAGER: [phone] GASA + ALL Collected: 05/02/2018 Status: F Source: [place] FOR 4:56 PM [facility] USE ONLY REPOSITORY TYPE CODE TESTS RESULT OUT OF REFERENCE UNITS RANGE LAB PH 7.35-7.45 pH 7.41 LAB PCO2 34-46 mm Hg pCO2 32 Low LAB PO2 85-95 mm Hg pO2 95 LAB BE mmol/L Base Excess NEG 3 LAB HCO3 22-26 mmol/L Bicarbonate 20 Low LAB CO2CT 22.0-28.0 mmol/L CO2 Content 21 Low LAB O2HB 95-98 % 96 Oxyhemoglobin, Art. LAB COHB 0-5.0 % 0.9 Carboxyhemoglobin ,Art LAB MHGB 0.4-1.5 % 1.0 Methemoglobin LAB TEMP C 37.0 Temperature, Body LAB PHTC 7.35-7.45 pH, Temp 7.41 Corrected LAB PCO2T 34-46 mm Hg pCO2, Temp 32 Low Correct LAB PO2T mm Hg pO2, Temp 95 Corrected LAB NAB 135-146 mmol/L 139 Sodium,Whole Bld LAB KWB 3.5-5.0 mmol/L Potassium, 3.9 Whole Bld LAB HGBB 13.0-17.0 g/dL 11.0 Low Hemoglobin,Total, ACL LAB HCTB 39.0-51.0 % Hematocrit, 34 Low ACL LAB IC 1.08-1.30 mmol/L Calcium, 1.18 Ion, WB LAB GLB 60-105 mg/dL 131 High Glucose,Whole Bld LAB LACT 0.5-2.2 mmol/L Lactate 1.7 LAB ABGCOM Blood Gas O2 Comm, Art Administration Result Comment: 40% Performed By: #### ALLBG #### [facility] [address] [place], [place] [address] GASA + ALL Collected: 05/02/2018 Status: F Source: [place] FOR 2:31 PM [facility] RADIANCE USE ONLY REPOSITORY TYPE CODE TESTS RESULT OUT OF REFERENCE UNITS RANGE LAB PH 7.35-7.45 pH 7.37 LAB PCO2 34-46 mm Hg pCO2 34 LAB PO2 85-95 mm Hg pO2 108 High LAB BE mmol/L Base Excess NEG 5 LAB HCO3 22-26 mmol/L Bicarbonate 19 Low LAB CO2CT 22.0-28.0 mmol/L CO2 Content 21 Low LAB O2HB 95-98 % 96 Oxyhemoglobin, Art. LAB COHB 0-5.0 % 1.0 Carboxyhemoglobin ,Art LAB MHGB 0.4-1.5 % 0.7 Methemoglobin LAB TEMP C 37.0 Temperature, Body LAB PHTC 7.35-7.45 pH, Temp 7.37 Corrected LAB PCO2T 34-46 mm Hg pCO2, Temp 34 Correct LAB PO2T mm Hg pO2, Temp 108 Corrected LAB NAB 135-146 mmol/L 139 Sodium,Whole Bld LAB KWB 3.5-5.0 mmol/L Potassium, 4.1 Whole Bld LAB HGBB 13.0-17.0 g/dL 11.0 Low Hemoglobin,Total, ACL LAB HCTB 39.0-51.0 % Hematocrit, 34 Low ACL LAB IC 1.08-1.30 mmol/L Calcium, 1.21 Ion, WB LAB GLB 60-105 mg/dL 153 High Glucose,Whole Bld LAB LACT 0.5-2.2 mmol/L Lactate 1.7 LAB ABGCOM Blood Gas O2 Comm, Art Administration Result Comment: 40% LAB ACBDTE [id number] Notify Date, Art LAB ACBTME [id number] Notify Time, Art Performed By: #### ALLBG #### [facility] [address] [place], [place] [address] THERAPY NT Observed: 05/02/2018 Status: COMPLETED Source: [place] 12:26 PM [facility] REPOSITORY HNO ID: [id number] Author: Kevin (Pt) Marvin Service: Physical Therapy Author Type: Physical Therapist Type: Therapy (PT/OT/Speech/Resp) Filed: 05/02/2018 12:26 PM Note Text: PHYSICAL THERAPY MISSED VISIT SERVICE DATE: 05/02/2018 SERVICE TIME: 1226 to 1226 ROOM: [place] [address] Attempted Treatment. Patient not seen due to Surgery. Surgery yesterday, patient still intubated and sedated. SIGNATURE: Kevin Wong, PT PATIENT NAME: Lazaro Villafana DATE: May 02, 2018 TIME: 12:26 PM GASA + ALL Collected: 05/02/2018 Status: F Source: [place] FOR 12:10 PM [facility] RADIANCE USE ONLY REPOSITORY TYPE CODE TESTS RESULT OUT OF REFERENCE UNITS RANGE LAB PH 7.35-7.45 pH 7.36 LAB PCO2 34-46 mm Hg pCO2 34 LAB PO2 85-95 mm Hg pO2 113 High LAB BE mmol/L Base Excess NEG 5 LAB HCO3 22-26 mmol/L Bicarbonate 19 Low LAB CO2CT 22.0-28.0 mmol/L CO2 Content 20 Low LAB O2HB 95-98 % 97 Oxyhemoglobin, Art. LAB COHB 0-5.0 % 1.0 Carboxyhemoglobin ,Art LAB MHGB 0.4-1.5 % 0.6 Methemoglobin LAB TEMP C 37.0 Temperature, Body LAB PHTC 7.35-7.45 pH, Temp 7.36 Corrected LAB PCO2T 34-46 mm Hg pCO2, Temp 34 Correct LAB PO2T mm Hg pO2, Temp 113 Corrected LAB NAB 135-146 mmol/L 137 Sodium,Whole Bld LAB KWB 3.5-5.0 mmol/L Potassium, 4.0 Whole Bld LAB HGBB 13.0-17.0 g/dL 10.8 Low Hemoglobin,Total, ACL LAB HCTB 39.0-51.0 % Hematocrit, 33 Low ACL LAB IC 1.08-1.30 mmol/L Calcium, 1.20 Ion, WB LAB GLB 60-105 mg/dL 171 High Glucose,Whole Bld LAB LACT 0.5-2.2 mmol/L Lactate 1.7 LAB ABGCOM Blood Gas O2 Comm, Art Administration Result Comment: 40% LAB ACBDTE [id number] Notify Date, Art LAB ACBTME [id number] Notify Time, Art Performed By: #### ALLBG #### [facility] [address] [place], [place] [address] CONSULT PROG Observed: 05/02/2018 Status: COMPLETED Source: [place] 11:[address] [facility] REPOSITORY HNO ID: [id number] Author: Leena Li Service: Infectious Disease Author Type: Physician Type: Consult Progress Note Filed: 05/02/2018 12:45 PM Note Text: INFECTIOUS DISEASES PROGRESS NOTE Patient Name: Lazaro Villafana Account #: Data Unavailable Admission Date: 04/14/2018 Date of Evaluation: 05/02/2018 Time of Evaluation: 10:20 AM INTERVAL HPI: Afebrile for 24 hours, downtrending leukocytosis. S/p VATS decortication 05/01/18 with cultures pending. On TPN, still intubated and sedated. Broad-spectrum antibiotics continued. Metronidazole 04/15 Fluconazole 04/15 Vancomycin 04/20 Aztreonam 04/22 MEDICATIONS: Current hospital medications: Chlorhexidine Gluconate 0.12 % 15 mL (PERIDEX) 15 mL ORAL q 6 H heparin 5,000 Units injection 5,000 Units SUBCUTANEOUS q 12 H Parenteral Nutrition - Adult INTRAVENOUS ONCE TPN (2200 START) insulin regular human iv bolus 2-10 Units 2-10 Units INTRAVENOUS PRN insulin regular 250 units in NaCl 0.9% 250 mL iv infusion - HVI CVICU NOMOGRAM 0.5-40 Units/hr INTRAVENOUS CONTINUOUS dextrose 50 % 12.5 g injection 12.5 g INTRAVENOUS PRN perflutren lipid microspheres 1.1 mg/mL 1.3 mL injection (DEFINITY) 1.3 mL INTRAVENOUS DIRECTED PRN sodium chloride 0.65 % 2 [place] (AYR, OCEAN) 2 [place] EACH NOSTRIL 5X/DAY nasal ointment ([facility]) TOPICAL BID NORepinephrine 16 mg in D5W 250 mL (LEVOPHED) 0.6-30 mcg/min INTRAVENOUS CONTINUOUS propofol infusion (DIPRIVAN) 5-60 mcg/kg/min INTRAVENOUS CONTINUOUS dextrose 5% in water iv infusion 5-30 mL/hr INTRAVENOUS CONTINUOUS fat emulsion infusion 20% (INTRALIPID) 250 mL INTRAVENOUS MO-WE-FR (10PM) metoprolol 10 mg injection (LOPRESSOR) 10 mg INTRAVENOUS q 6 HR OLANZapine orally disintegrating 10 mg tab(s) (ZyPREXA ZYDIS) 10 mg ORAL AT BEDTIME lidocaine 5 % 1 Patch (LIDODERM) 1 Patch TRANSDERMAL DAILY lidocaine patch - REMOVE OTHER AT BEDTIME lidocaine - VERIFY PATCH OTHER q 8 H labetalol 10 mg injection syringe (NORMODYNE) 10 mg INTRAVENOUS q 2 H PRN insulin glargine 20 Units pen (long acting) (LANTUS SOLOSTAR, BASAGLAR KWIKPEN) 20 Units SUBCUTANEOUS AT BEDTIME vancomycin iv piggyback 1 g in D5W 200 mL (VANCOCIN) 1 g INTRAVENOUS q 12 HR aztreonam 2 g in D5W 100 mL MB+ (AZACTAM) 2 g INTRAVENOUS q 6 HR fluconazole 400 mg in NaCl (iso-osmotic) 200 mL (DIFLUCAN) 400 mg INTRAVENOUS DAILY vancomycin dosing and monitoring per pharmacy OTHER As Directed potassium chloride iv piggyback 20 mEq/100 mL 20 mEq INTRAVENOUS PRN potassium chloride 20-80 mEq CUP 20-80 mEq ORAL/FEEDING TUBE PRN magnesium sulfate in water 2 g in sterile water 50 ml 2 g INTRAVENOUS PRN dextrose 40 % 15 g 15 g ORAL PRN glucagon 1 mg injection (GLUCAGEN) 1 mg INTRAMUSCULAR PRN NaCl 0.9% 3-5 mL 3-5 mL INTRAVENOUS q 12 H fentaNYL 50 mcg/mL 25-50 mcg injection (SUBLIMAZE) 25-50 mcg INTRAVENOUS q 1 H PRN metroNIDAZOLE 500 mg PREMIX piggyback (FLAGYL) 500 mg INTRAVENOUS q 8 H ipratropium-albuterol 3 mL nebulizer solution (DUONEB) 3 mL INHALATION q 4 H PRN pantoprazole 40 mg injection (PROTONIX) 40 mg INTRAVENOUS BID AC (0600/1600) PHYSICAL EXAM: BP 155/66 Pulse 87 Temp (!) 35.7 ?C (96.3 ?F) (Axillary) Resp 23 Ht 177.8 cm (5' 10) Wt 118.2 kg (260 lb 9.3 oz) SpO2 98% BMI 37.39 kg/m? Lines: Nontunnelled triple lumen 04/27 Left neck, L a-line, R nares NGT ?SKIN: No lesions noted. EYES: PERRLA NECK: L nontunnelled triple lumen catheter with no overlying erythema, swelling or warmth. LUNGS: clear to auscultation, no wheezes, or crackles. HEART: ?Regular rate/rhythm, normal heart sounds, and no murmurs. ABDOMEN: Soft, epigastric tenderness, hypoactive BS EXTREMITIES: Edema of all four extremities. Three right-sided chest tubes with dark fluid output, mcclain TPN, insulin infusion, propofol Labs: WBC 7.56, Hgb 9.8, Plt 124, Cr 1.03 Micro and radiology personally reviewed 04/14/18: Quantiferon gold testing negative for TB 04/14/18: Blood cultures 04/19 no growth 04/14/18: MSSA nasal swab positive 04/17/18: MSSA nasal swab positive 04/17/18: Blood cultures 2/2 no growth 04/20/18: Blood cultures 2/2 no growth 04/20/18: Tracheal aspirate cultures no organisms on gram stain and no growth on culture 04/22/18: Fungitell negative 04/23/18: Sputum cultures normal abby 04/24/18: Staphylococcal nasal swab negative 04/27/18: Blood cultures 2/2 no growth 04/30/18: HCV Ab negative 04/30/18: HIV Ag/Ab negative 05/01/18: Staphylococcal nasal swab negative 05/01/18: right pleural tissue gram stain negative, cultures all pending EGD 04/27/18: Impression: ? - Mucosal tear in the middle third of the esophagus ? healing well. ? - Portal hypertensive gastropathy. ? - Normal examined duodenum. ? - Feeding tube placement was successfully performed. ? Please confirm placement with KUB. ? - No specimens collected. Esophagram 04/27/18: PERSISTENT RIGHT MIDESOPHAGEAL PERFORATION DESCRIBED, CORRELATING WITH PRIOR. CT Chest 04/28/18: IMPRESSION: 1. ?Small to medium-sized right sided hydropneumothorax is stable in size since the prior chest CT dated 04/24/2018 with right thoracostomy tube in stable position. ?Adjacent dependent airspace opacity primarily in the right lower lobe has mildly improved in the interval and most likely represents either atelectasis or pneumonia/aspiration. 2. ?Previously seen bilateral airspace opacities, some of which were ground-glass or centrilobular in distribution have overall improved although have not resolved and may be due to either edema and/or infectious/inflammatory in etiology such as due to aspiration. ?No new airspace opacity has developed in the interval. 3. ?Persistent linear tract of gas extending from the right lateral mid to distal aspect of the esophagus which communicates with the right pleural space, in keeping with the known fistula as seen on the recent esophagram study. ?High attenuation material in the dependent right pleural space is nonspecific and may represent either contrast material from an esophagram study versus blood products. ?Correlate with the chest tube output for the presence of blood. 4. ?Stable mediastinal and right hilar lymphadenopathy, probably reactive. 5. ?Mild ascites in the upper abdomen, unchanged. IMPRESSION / PLAN 52 yo M with a h/o cirrhosis, EtoH related, CKD, COPD and reported + PPD in the past. Currently no clinical or imaging evidence of active pulmonary TB. Presenting with hemorrhagic shock secondary to hematemesis/esophageal tear c/b pneumomediastinum; no surgical intervention planned at this time. EGD 04/26/18 with reported improvement in esophageal tear (31-38cm). Esophageal stent placed last week, to be removed in four weeks. Maintained on TPN. Intubated, sedated. ? 05/01/2018 Right VATS exploration, Right thoracotomy, Total right pleural decortication, primary repair of esophageal perforation with intercostal muscle flap, bronchoscopy and esophagoscopy. Surgical pathology pending. Plan: - continue vancomycin (goal trough 15-25), aztreonam, metronidazole, fluconazole as ordered for now until decortication tissue cultures finalize - will follow HIV Ag/Ab and Hepatitis C Antibody screening Discussed with attending, Perla Delgado PGY4 [facility] STAFF PHYSICIAN NOTE OF PERSONAL INVOLVEMENT IN CARE Events reviewed. Patient examined. Findings as outlined in the fellow's note above. Jang elements verified. ? Relevant lab data, microbiology and imaging data reviewed. Relevant images personally reviewed. ? Agree with assessment and plan as outlined in the fellow's note above. I was physically present for the critical portions of the service provided by the ID team. The management plan reflects my input. ? Marguerite Li MD Staff, Department of Infectious Disease Pager: [phone] CASE MANAGEM Observed: 05/02/2018 Status: COMPLETED Source: [place] 11:15 AM [facility] REPOSITORY HNO ID: [id number] Author: Tenisha Ferreira) BLAYNE Cox Service: Case Management Author Type: Registered Nurse Type: Care Mgt Progress Note Filed: 05/02/2018 11:22 AM Note Text: CARE MANAGEMENT PROGRESS NOTE SERVICE DATE: 05/02/2018 SERVICE TIME: 11:15 AM LOS: 18 days Needs Prior to Discharge: To Be Determined 05/01/2018 Right VATS exploration, Right thoracotomy, Total right pleural decortication, primary repair of esophageal perforation with intercostal muscle flap, bronchoscopy and esophagoscopy. Patient transferred from SICU GI: Strict NPO, TPN. Cirrhosis. Follow INR. Esoph stent to be removed in 4 weeks. Maintain on ventilator Daily TPN Monitor ammonia level. Case Management will continue to follow Medical course and plan discharge accordingly. SIGNATURE: Tenisha Cox RN PATIENT NAME: Lazaro Villafana DATE: May 02, 2018 TIME: 11:15 AM PAGER/CONTACT #: [phone] CONSULT PROG Observed: 05/02/2018 Status: COMPLETED Source: [place] 10:21 AM [facility] REPOSITORY HNO ID: [id number] Author: Radha Villegas Service: Hepatology Author Type: Nurse Practitioner Type: Consult Progress Note Filed: 05/02/2018 2:33 PM Note Text: HEPATOLOGY CONSULT PROGRESS NOTE Service Date 05/02/2018 Patient:Lazaro Villafana Medical Record: [id number] Reason for Initial Consult: TIPS procedure Requesting Service: Thoracic CC: Intubated, sedated Interval History: Afebrile, HDS off pressors, sedated, intubated on MV S/p TIPS placement/12 with sinusoidal gradient 18 pre and 4 post procedure Underwent right VATS, R thoracotomy, R pleural decortication, repair of esophageal perforation Liver chemistries and INR WNL today NG output non bloody Current hospital medications: Chlorhexidine Gluconate 0.12 % 15 mL (PERIDEX) 15 mL ORAL q 6 H heparin 5,000 Units injection 5,000 Units SUBCUTANEOUS q 12 H Parenteral Nutrition - Adult INTRAVENOUS ONCE TPN (2200 START) insulin regular human iv bolus 2-10 Units 2-10 Units INTRAVENOUS PRN insulin regular 250 units in NaCl 0.9% 250 mL iv infusion - HVI CVICU NOMOGRAM 0.5-40 Units/hr INTRAVENOUS CONTINUOUS dextrose 50 % 12.5 g injection 12.5 g INTRAVENOUS PRN perflutren lipid microspheres 1.1 mg/mL 1.3 mL injection (DEFINITY) 1.3 mL INTRAVENOUS DIRECTED PRN sodium chloride 0.65 % 2 [place] (AYR, OCEAN) 2 [place] EACH NOSTRIL 5X/DAY nasal ointment ([facility]) TOPICAL BID NORepinephrine 16 mg in D5W 250 mL (LEVOPHED) 0.6-30 mcg/min INTRAVENOUS CONTINUOUS propofol infusion (DIPRIVAN) 5-60 mcg/kg/min INTRAVENOUS CONTINUOUS dextrose 5% in water iv infusion 5-30 mL/hr INTRAVENOUS CONTINUOUS fat emulsion infusion 20% (INTRALIPID) 250 mL INTRAVENOUS MO-WE-FR (10PM) metoprolol 10 mg injection (LOPRESSOR) 10 mg INTRAVENOUS q 6 HR OLANZapine orally disintegrating 10 mg tab(s) (ZyPREXA ZYDIS) 10 mg ORAL AT BEDTIME lidocaine 5 % 1 Patch (LIDODERM) 1 Patch TRANSDERMAL DAILY lidocaine patch - REMOVE OTHER AT BEDTIME lidocaine - VERIFY PATCH OTHER q 8 H labetalol 10 mg injection syringe (NORMODYNE) 10 mg INTRAVENOUS q 2 H PRN insulin glargine 20 Units pen (long acting) (LANTUS SOLOSTAR, BASAGLAR KWIKPEN) 20 Units SUBCUTANEOUS AT BEDTIME vancomycin iv piggyback 1 g in D5W 200 mL (VANCOCIN) 1 g INTRAVENOUS q 12 HR aztreonam 2 g in D5W 100 mL MB+ (AZACTAM) 2 g INTRAVENOUS q 6 HR fluconazole 400 mg in NaCl (iso-osmotic) 200 mL (DIFLUCAN) 400 mg INTRAVENOUS DAILY vancomycin dosing and monitoring per pharmacy OTHER As Directed potassium chloride iv piggyback 20 mEq/100 mL 20 mEq INTRAVENOUS PRN potassium chloride 20-80 mEq CUP 20-80 mEq ORAL/FEEDING TUBE PRN magnesium sulfate in water 2 g in sterile water 50 ml 2 g INTRAVENOUS PRN dextrose 40 % 15 g 15 g ORAL PRN glucagon 1 mg injection (GLUCAGEN) 1 mg INTRAMUSCULAR PRN NaCl 0.9% 3-5 mL 3-5 mL INTRAVENOUS q 12 H fentaNYL 50 mcg/mL 25-50 mcg injection (SUBLIMAZE) 25-50 mcg INTRAVENOUS q 1 H PRN metroNIDAZOLE 500 mg PREMIX piggyback (FLAGYL) 500 mg INTRAVENOUS q 8 H ipratropium-albuterol 3 mL nebulizer solution (DUONEB) 3 mL INHALATION q 4 H PRN pantoprazole 40 mg injection (PROTONIX) 40 mg INTRAVENOUS BID AC (0600/1600) Physical Exam: Vital Signs: 05/02/18 0830 05/02/18 0930 05/02/18 1012 05/02/18 1017 BP: 155/66 Pulse: 79 87 88 87 Resp: 23 Temp: TempSrc: SpO2: 99% 98% 99% Weight: Height: VITAL SIGNS: BP 155/66 Pulse 87 Temp (Src) 96.3 (Axillary) Resp 23 Ht 5' 10 (1.78m) Wt 260 lb 9.3 oz (118.2kg) SpO2 99% BMI 37.39 kg/(m2). General appearance:sedated, intubated Lungs: breath sounds clear with rhonchi in upper lobese Heart: RRR Abdomen: soft, non tense, hypoactive bowel sounds Extremities: pitting lower extremity edema bilaterally Neuro: Sedated Intake/Output Summary (Last 24 hours) at 05/02/18 1021 Last data filed at 05/02/18 0930 Gross per 24 hour Intake 87508.8 ml Output 4200 ml Net 7039.8 ml Diagnostic Testing: Labs: CBC, Coags, BMP, Mg, Phos Recent Labs 05/02/18 0953 05/02/18 0735 05/02/18 0547 05/02/18 0248 05/01/18 1521 05/01/18 1101 05/01/18 0920 05/01/18 0156 04/30/18 0445 WBC -- -- -- 7.56 -- 14.41* -- -- -- -- -- -- -- 7.89 HB -- -- -- 9.8* -- 9.6* -- -- -- -- -- -- -- 8.0* HCT -- -- -- 29.8* -- 30.1* -- -- -- -- -- -- -- 25.0* PLT -- -- -- 124* -- 194 -- 202 -- 206 -- -- -- 134* INR -- -- -- -- -- 1.3 -- 1.5* -- 1.4* -- -- -- -- APTT -- -- -- -- -- 29.9 -- 33.8* -- 32.5* -- -- -- -- NA -- -- -- 137 -- 137 -- -- -- -- -- 137 -- -- K -- -- -- 4.2 -- 5.2* -- -- -- -- -- 4.5 -- -- CHLOR -- -- -- 105 -- 107* -- -- -- -- -- 106* -- -- CO2 -- -- -- 19* -- 21* -- -- -- -- -- 19* -- -- BUN -- -- -- 42* -- 38* -- -- -- -- -- 39* -- -- CREAT -- -- -- 1.03 -- 1.16 -- -- -- -- -- 1.10 -- -- GLUC -- -- -- 257* -- 188* -- -- -- -- -- 207* -- -- IC 1.18 1.17 1.17 -- < > -- < > -- < > -- < > -- < > -- CA -- -- -- 7.7* -- 7.5* -- -- -- -- -- 7.3* -- -- MG -- -- -- 1.9 -- 1.6* -- -- -- -- -- 1.7 -- -- P -- -- -- 2.9 -- 4.7 -- -- -- -- -- 3.3 -- -- < > = values in this interval not displayed. Liver Function, Amylase, AND Lipase Recent Labs 05/02/18 0953 05/02/18 0735 05/02/18 0547 05/02/18 0248 05/01/18 0156 04/30/18 0005 TPROT -- -- -- 6.0* -- 6.5 -- 6.9 ALB -- -- -- 1.9* -- 1.9* -- 2.0* ALT -- -- -- 31 -- 23 -- 20 AST -- -- -- 73* -- 55* -- 46* ALKPHOS -- -- -- 59 -- 61 -- 63 TBILI -- -- -- 0.6 -- 0.5 -- 0.3 LACT 1.7 1.9 2.0 -- < > -- < > -- < > = values in this interval not displayed. MELD-Na score: 9 at 05/02/2018 2:48 AM MELD score: 9 at 05/02/2018 2:48 AM Calculated from: Serum Creatinine: 1.03 mg/dL at 05/02/2018 2:48 AM Serum Sodium: 137 mmol/L at 05/02/2018 2:48 AM Total Bilirubin: 0.6 mg/dL (Rounded to 1) at 05/02/2018 2:48 AM INR(ratio): 1.3 at 05/01/2018 3:21 PM Age: 52 years Reviewed: Most recent labs and imaging results. Impression: Lazaro Villafana is a 52 year old gentleman with history notable for presumed EtOH related cirrhosis with risk factors for BOONE with disease course c/b portal HTN (EV) who presented with complaints?of several day history of nausea, vomiting, melena, and hematemesis prompting tony tube placement at that time (unsure if gastric vs. Gastric and esophageal balloon inflated) found to have partial thickness esophageal tear and large EV. ? His hospital course c/b mediastinitis with fevers an purulent chest tube output on vancomycin/aztreonam/diflucan, respiratory failure requiring intubation now extubated (04/22) and stable from pulmonary standpoint, and on TPN. S/p TIPS 04/30 with sinusoidal gradient form 18->4mmHg ?? XR Esophagram with persistent leak now s/p Rt VATS, R thoracotomy, R pleural decortication, repair of esophageal perforation Hepatology consulted for TIPS evaluation to decompress portal system prior to thoracic intervention. He does have a hx of encephalopathy in the past ? Recommendations: --- Recommend Echo for evaluation of pulmonary pressures --- Has increased risk of post-TIPS encephalopathy given hx of prior encephalopathy; this can be monitored post-procedurally and TIPS can be adjusted after thoracic intervention completed if patient develops encephalopathy --Will need liver vasculature in 4-5 days to assess TIPS patency --If develops signs of HE start lactulose 20 gms QID and titrate to 3-4 bowel movements daily --CMP and INR daily SIGNATURE: Radha Villegas PARAPROFESSIONAL AIDE-C PATIENT NAME: Lazaro Villafana DATE: May 02, 2018 TIME: 10:21 AM PAGER/CONTACT #: [phone] ? GASA + ALL Collected: 05/02/2018 Status: F Source: [facility] 9:53 AM [facility] USE ONLY REPOSITORY TYPE CODE TESTS RESULT OUT OF REFERENCE UNITS RANGE LAB PH 7.35-7.45 pH 7.40 LAB PCO2 34-46 mm Hg pCO2 32 Low LAB PO2 85-95 mm Hg pO2 111 High LAB BE mmol/L Base Excess NEG 4 LAB HCO3 22-26 mmol/L Bicarbonate 19 Low LAB CO2CT 22.0-28.0 mmol/L CO2 Content 20 Low LAB O2HB 95-98 % 96 Oxyhemoglobin, Art. LAB COHB 0-5.0 % 0.3 Carboxyhemoglobin ,Art LAB MHGB 0.4-1.5 % 1.2 Methemoglobin LAB TEMP C 37.0 Temperature, Body LAB PHTC 7.35-7.45 pH, Temp 7.40 Corrected LAB PCO2T 34-46 mm Hg pCO2, Temp 32 Low Correct LAB PO2T mm Hg pO2, Temp 111 Corrected LAB NAB 135-146 mmol/L 137 Sodium,Whole Bld LAB KWB 3.5-5.0 mmol/L Potassium, 4.1 Whole Bld LAB HGBB 13.0-17.0 g/dL 11.0 Low Hemoglobin,Total, ACL LAB HCTB 39.0-51.0 % Hematocrit, 34 Low ACL LAB IC 1.08-1.30 mmol/L Calcium, 1.18 Ion, WB LAB GLB 60-105 mg/dL 177 High Glucose,Whole Bld LAB LACT 0.5-2.2 mmol/L Lactate 1.7 LAB ABGCOM Blood Gas O2 Comm, Art Administration Result Comment: 40% Performed By: #### ALLBG #### [facility] [address] [place] [address] AMMONIA Collected: 05/02/2018 Status: F Source: [place] 9:43 AM [facility] REPOSITORY TYPE CODE TESTS RESULT OUT OF REFERENCE UNITS RANGE LAB NH3 16-60 umol/L Ammonia 52 Performed By: #### NH3 #### [facility] [address] [place], [place] [address] PROGRESS Observed: 05/02/2018 Status: COMPLETED Source: [place] 9:23 AM [facility] REPOSITORY HNO ID: [id number] Author: Neetu GhoshRn) Loyda RN Service: Cardiovascular Medicine Author Type: Registered Nurse Type: Progress Notes Filed: 05/02/2018 9:24 AM Note Text: 05/02/2018 9:23 AM ECHO WITH DEFINITY Order reviewed by nurse:yes Medications: Definity - dosage 2 ml in 8 ml normal saline; 3 ml given IVP per protocol Reaction: No Central line used for IV administration; flushed with normal saline after echo completed; site WNL CONSULT PROG Observed: 05/02/2018 Status: COMPLETED Source: [place] 9:20 AM [facility] REPOSITORY HNO ID: [id number] Author: Alexander Caruso (Pharmacist) Service: Pharmacy Author Type: Pharmacist Type: Consult Progress Note Filed: 05/02/2018 9:22 AM Note Text: PHARMACY VANCOMYCIN DOSING NOTE Patient Name: Lazaro Villafana Admission Date: 04/14/2018 Date of Consult: 05/02/2018 Time of Consult: 9:20 AM Indication: Pneumonia Goal Range: 10-20 mcg/mL RECOMMENDATIONS/PLAN: Pharmacy consulted for vancomycin dosing for Lazaro Villafana, a 52 year old, male who is being treated with vancomycin for pneumonia 1. Patient is currently ordered Vancomycin 1 g IV q12h. Today is day 11 of therapy. 2. No more recent vancomycin level has been drawn for this dosing regimen. 3. The present dose of vancomycin is the recommended dosage for this patient at this time. Continue therapy as prescribed. Dose from yesterday afternoon not documented as given, patient in OR. 4. The next vancomycin level will be ordered for 1-2 days unless clinically indicated sooner. (Pharmacy will order) We will follow patient renal function, vancomycin levels and doses with you during the course of therapy. Additional recommendations will appear in follow up notes. If you have any questions, please contact Alexander Caruso, Pharmacist at [phone]. Age: [age] year old Allergies: ALLERGIES Allergen Reactions - Ciprofloxacin Unknown - Penicillin Unknown Tolerating cefepime Last 3 Encounter Wt Readings: Date: Wt: 04/14/2018 118.2 kg (260 lb 9.3 oz) 04/14/2018 97 kg (213 lb 13.5 oz) Last 1 Encounter Ht Readings: Date: Ht: 04/14/2018 177.8 cm (5' 10) CrCl: ~110 mL/min Temp (24hrs), Av.2 ?C (97.2 ?F), Min:35.7 ?C (96.3 ?F), Max:36.6 ?C (97.9 ?F) - Current Temp: (!) 35.7 ?C (96.3 ?F) Labs BUN (mg/dL) Date Value 05/02/2018 42 (H) 05/01/2018 38 (H) 05/01/2018 39 (H) Creatinine (mg/dL) Date Value 05/02/2018 1.03 05/01/2018 1.16 05/01/2018 1.10 WBC (k/uL) Date Value 05/02/2018 7.56 05/01/2018 14.41 (H) 04/30/2018 7.89 Vancomycin Levels: Vancomycin, result (ug/mL) Date/Time Value 04/26/2018 0148 14.4 04/22/2018 0120 24.3 (H) Earnestine Howe PROGRESS Observed: 05/02/2018 Status: COMPLETED Source: [place] 7:50 AM [facility] REPOSITORY O ID: [id number] Author: Steven Sanchez Service: Critical Care Author Type: Anesthesiologist Type: Progress Notes Filed: 05/02/2018 7:58 AM Note Text: CVICU PROGRESS NOTE Admission Date: 04/14/2018 Hospital Day: # 18 1 Day Post-Op SUBJECTIVE: Interval Events: No significant events overnight Patient Active Hospital Problem List: Esophageal perforation (04/14/2018) Acute respiratory failure (HCC) (04/29/2018) Hydropneumothorax (04/29/2018) Hypotension (04/29/2018) History of hypertension (04/29/2018) Type II diabetes mellitus (HCC) (04/29/2018) Hyperglycemia (04/14/2018) Alcoholic cirrhosis (HCC) (04/14/2018) COPD (chronic obstructive pulmonary disease) (HCC) (04/14/2018) Secondary thrombocytopenia (04/20/2018) Acute post-operative pain (04/20/2018) Tobacco abuse (04/20/2018) Mediastinitis (04/20/2018) Fever (04/20/2018) Severe protein-calorie malnutrition (HCC) (04/22/2018) Delirium due to general medical condition (04/26/2018) Epistaxis (04/29/2018) CKD (chronic kidney disease) (04/29/2018) Portal hypertension (HCC) (04/14/2018) ASSESSMENT/PLAN: Wean ventilator support, but maintaining on ventilator per CTS to maximize lung expansion. No need for vasopressors overnight. Continue insulin infusion for glycemic control. Continue antibiotics per infectious disease recommendations. Continue TPN. Monitor ammonia level. Follow blood cultures. COORDINATION OF CARE NOTE: Important/Relevant PMH/PSH: Alcohol use disorder with recent diagnosis of cirrhosis w/ esophageal varices, type II DM, poorly controlled HTN, CKD, COPD, tobacco smoker 2-3 PPD. Hospital Course: HPI: Lazaro Villafana is a 52 year old male with alcohol use disorder with recent diagnosis of cirrhosis w/ esophageal varices who presents on transfer from OSH with hematemesis s/p EGD at OSH c/b esophageal laceration; MELD >?20. R-sided chest tube for hydropneumothorax. Admitted to F SICU 04/14/18. 04/15/18: EGD showed 5cm esophageal laceration without active bleeding. 04/16/18: Right chest tube placed for effusion. 04/22/18: Extubated. 04/26/18: EGD: partial mucosal tear in mid esophagus. 04/27/18: Eesophagram showed persistent leak. 04/29/18: EGD 04/29: Esophageal stent successfully placed in Q3. Acute pulmonary insufficiency following non-thoracic surgery requiring intubation. Respiratory status improved with placement of CT to sxn. See Epic note for more details. Per discussion between Dr Jerry and Dr Soto the patient's care will be transitioned to Thoracic Surgery care, thoracic Surgery being primary team. Transferred to CVICU from SICU. 04/30-->TIPS A/P of Major Active Problems (excluding routine care and common problems): CV: SR. Remains off pressors. Resp: Intubated and sedated. Status post TIPS and right VATS GI: Strict NPO, TPN. Cirrhosis. Follow INR. Esoph stent to be removed in 4 weeks. Heme:Cautious use of SQH given bedrest. Renal: Cr 1.1 Endo: Insulin infusion for glucose control ID: Hospital course c/b mediastinitis with fevers an purulent chest tube output on vancomycin/aztreonam/flagyl/diflucan. ID following. Epistaxis: ENT following-->Nasal packing with Surgicel fibrillar. Lines: L IJ triple lumen (04/27/18). To Do or to Watch: Maintain on ventilator Daily TPN Monitor ammonia level OBJECTIVE: Vital Signs: Temp Min: 35.7 ?C (96.3 ?F) Max: 39 ?C (102.2 ?F) Temp (24hrs), Av.2 ?C (97.2 ?F), Min:35.7 ?C (96.3 ?F), Max:36.6 ?C (97.9 ?F) Vitals: 05/02/18 0603 05/02/18 0610 05/02/18 0630 05/02/18 0730 Pulse: 72 72 71 72 BP: MAP Non Invasive (Mean Arterial Pressure): Arterial BP 1: 104/52 106/53 107/54 MAP Invasive (Mean Arterial Pressure) 1: 69 70 71 72 Resp: SpO2: 96% 96% 96% 95% Additional Cardiac Parameters 05/02/18 0603 05/02/18 0610 05/02/18 0630 05/02/18 0730 CVP: 13 13 34 12 Fluid Balance: Date 05/01/18 0700 - 05/02/18 0659 05/02/18 07 - 05/03/18 0659 Shift 6388-5285 6312-1036 9224-1568 24 Hour Total 5607-6531 2004-1395 0160-9567 24 Hour Total I N T A K E IV 3000 1752.8 519 5271.8 NS 0.9% 978 978 Regular Insulin IV 7.8 169 176.8 OR Crystalloid intake (mL) 3000 3000 NORepinephrine Volume 165 165 Propofol IV 602 350 952 Blood Products 2310 351 2661 Cryoprecipitate Number of Units 1 1 PRBC Intake (mL) 3213 725 4835 Cryoprecipitate (mL) 150 150 Platelet Infused (mL) 150 150 FFP (mL) 600 600 Packed Red Blood Cells Number of Units 4 1 5 Platelets Number of Units 1 1 Fresh Frozen Plasma Number of Units 4 4 TPN/PPN 2384 893 3277 TPN 2384 893 3277 Other Amount Wasted PRBC 0 mL 0 mL Shift Total 5310 4487.8 1412 31784.8 O U T P U T Urine 7763 488 8967 3190 100 100 OR Urine Output 250 250 Output ( Indwelling Urinary Catheter 04/29/18 2030 Mcclain 18 Fr) 3985 908 4012 2940 100 100 Tubes 10 10 Output (GI Feed/Drain 05/01/18 Assessment Nasogastric Right Naris 14 Fr) 10 10 Chest Tube 20 140 70 230 80 80 Chest Tube Output (Chest Tube 05/01/18 1218 Right Pleural Tube #1) 20 130 70 220 30 30 Chest Tube Output (Chest Tube 05/01/18 1219 Right Pleural 28 Fr Tube #2) 0 5 0 5 10 10 Chest Tube Output (Chest Tube 05/01/18 1219 Right Pleural Tube #3) 0 5 0 5 40 40 # of BMs Number of BMs 0 x 0 x Blood 1000 1000 Estimated Blood loss 1000 1000 Shift Total 2270 1070 1090 4430 180 180 Weight (kg) 102.6 102.6 118.2 118.2 118.2 118.2 118.2 118.2 Last Weight: 118.2 kg (260 lb 9.3 oz) (05/02/18 0300) Admit Weight: 106.1 kg (233 lb 14.5 oz) (04/16/18 0000) DIET NPO Parenteral Nutrition - Adult Lines, Drains, and Airways Line Central Line Triple Lumen 04/27/18 Non-tunneled Left Neck 5 days Arterial Line 04/29/182009 Arterial Line Left Radial 2 days Introducer 05/01/18 Right Groin 1 day Drain Indwelling Urinary Catheter 04/29/18 2030 Mcclain 18 Fr 2 days GI Feed/Drain 05/01/18 Assessment Nasogastric Right Naris 14 Fr 1 day Chest Tube 05/01/18 1218 Right Pleural Tube #1 less than 1 day Chest Tube 05/01/18 1219 Right Pleural Tube #3 less than 1 day Chest Tube 05/01/18 1219 Right Pleural 28 Fr Tube #2 less than 1 day Airway Airway Endotracheal Tube 04/30/18 2 days Vent/Oxygen: O2 Therapy: Ventilator (05/02/18729) %FIO2: 40 (05/02/18729) Inspiratory Pressure Set (cm H2O): (S) 8 (05/02/18602) Set Ventilator Respiratory Rate (BPM): (S) 18 (05/02/18602) %FIO2 Min: 40 Max: 60 Pulmonary Therapy: Bronchodilators VENTILATOR INFORMATION: Settings: Invasive Ventilator Mode: Pressure Control Ventilation (05/02/18316) %FIO2: 40 Set Ventilator Respiratory Rate (BPM): (S) 18 PEEP/CPAP (cm H2O): 10 Inspiratory Pressure Set (cm H2O): (S) 8 Patient Data: Inspiratory:Expiratory Ratio: 1:2 Peak Inspiratory Pressure (cm H2O): 22 Plateau Pressure (cm H2O): 25 Weaning Data: Spontaneous Respiratory Rate (BPM): 1 Physical Examination Performed: Cardiovascular: Regular rate and rhythm, normal sinus rhythm Respiratory: No distress, synchronous with ventilator Extremities: Edema of lower extremities Surgical Sites: Dressings clean and dry Neurologic: Moves all extremities, follows commands Diagnostic tests reviewed today: CXR: Right pleural effusion Recent Labs 05/02/18 0735 05/02/18 0547 05/02/18 0241 05/01/18195805/01/18 1739 PH 7.39 7.39 7.40 7.37 7.34* PCO2 34 32* 31* 36 39 PO2 88 111* 97* 110* 152* HCO3 20* 19* 19* 20* 20* BE NEG 4 NEG 5 NEG 5 NEG 4 NEG 5 Recent Labs 05/02/18 0248 05/01/18 1521 04/30/18 0445 MCV 87.4 89.6 90.6 MCH 28.7 28.6 29.0 MPV 11.1 10.7 11.5 Recent Labs 05/02/18 0248 05/01/18 1521 05/01/18 1101 05/01/18 0920 04/30/18 0445 04/30/18 0005 04/28/18 0106 04/27/18 0237 04/26/18 0148 04/20/18 1338 04/14/18 1700 04/14/18 1415 WBC 7.56 14.41* -- -- 7.89 7.44 7.63 6.78 7.02 < > 10.03 < > 20.86* 21.54* RBC 3.41* 3.36* -- -- 2.76* 2.37* 2.77* 2.64* 2.41* < > 2.66* < > 2.73* 2.67* HB 9.8* 9.6* -- -- 8.0* 6.7* 7.8* 7.3* 6.9* < > 7.9* < > 8.0* 8.1* HCT 29.8* 30.1* -- -- 25.0* 22.3* 25.5* 23.8* 22.2* < > 24.2* < > 25.0* 25.3* PLT 124* 194 202 206 134* 137* 145* 132* 131* < > 66* < > 102* 120* MCV 87.4 89.6 -- -- 90.6 94.1 92.1 90.2 92.1 < > 91.0 < > 91.6 94.8 MCH 28.7 28.6 -- -- 29.0 28.3 28.2 27.7 28.6 < > 29.7 < > 29.3 30.3 MPV 11.1 10.7 -- -- 11.5 11.6 11.1 10.9 11.1 < > 11.1 < > 12.2* 12.2* RDW -- -- -- -- -- -- -- -- -- -- -- -- 15.3* 13.0 ABSNEUT -- -- -- -- -- -- 5.58 4.87 4.91 < > 8.53* < > -- -- ANCSEGBAND -- -- -- -- -- -- -- -- -- -- 8.53 -- -- -- NEUTP -- -- -- -- -- -- 73.1 71.9 70.0 < > 85.0 < > -- -- LYMPHP -- -- -- -- -- -- 16.9 18.0 18.1 < > 8.0 < > -- -- MONOP -- -- -- -- -- -- 6.6 6.9 8.5 < > 7.0 < > -- -- EODINP -- -- -- -- -- -- 3.0 2.9 3.1 < > 0.0 < > -- -- < > = values in this interval not displayed. Recent Labs 05/02/18 0248 05/01/18 1521 05/01/18 0156 04/30/18 0005 04/29/18 0200 04/23/18 0206 04/22/18 0120 GLUC 257* 188* 207* 130* 173* < > 235* 223* NA 137 137 137 141 142 < > 140 140 K 4.2 5.2* 4.5 4.5 4.6 < > 4.2 4.3 CHLOR 105 107* 106* 111* 111* < > 104 105 CO2 19* 21* 19* 20* 21* < > 25 21* CREAT 1.03 1.16 1.10 1.25* 1.16 < > 1.35* 1.45* BUN 42* 38* 39* 42* 39* < > 54* 58* ANION 13 9 12 10 10 < > 11 14 CA 7.7* 7.5* 7.3* 7.8* 7.6* < > 7.6* 7.5* TPROT 6.0* -- 6.5 6.9 -- -- 6.2* 5.8* ALB 1.9* -- 1.9* 2.0* -- -- 2.3* 2.1* TBILI 0.6 -- 0.5 0.3 -- -- 0.7 0.7 ALKPHOS 59 -- 61 63 -- -- 74 72 AST 73* -- 55* 46* -- -- 54* 51* ALT 31 -- 23 20 -- -- 18 < > = values in this interval not displayed. Recent Labs 05/01/18 1521 05/01/18 1101 05/01/18 0920 04/30/18 0005 APTT 29.9 33.8* 32.5* 34.1* INR 1.3 1.5* 1.4* 1.5* FIBCT 478* 432* 483* -- VAP Prevention: Chlorhexidine Mouth Care: Yes Stress Ulcer Prophylaxis PPI or H2 antagonist: Yes VTE Prophylaxis: Active VTE Risk Category Order: 04/14/18 2100 VTE RISK CATEGORY: SURGICAL MODERATE RISK ([place]) Active VTE Medication Orders: Active VTE Prophylaxis Orders: 04/28/18 0845 GRADUATED COMPRESSION STOCKINGS ([place]) 04/14/18 2100 PNEUMATIC COMPRESSION STOCKINGS ([place] 04/14/18 2100 ACTIVITY - MOBILIZE PATIENT ([place], [place]) I personally reviewed and updated the patient's history and course in the note as well as the assessment AND plan. I discussed the management plan with the RN and RT. This patient has a high probability of sudden, clinically significant deterioration, which requires the highest level of preparedness to intervene urgently. I participated in the decision making and personally managed or directed the care plan, including medical problems that required my frequent assessment to treat or prevent imminent deterioration. I personally spent 30 minutes of critical care time treating the patient. Time devoted to any procedures I billed separately is not included. SIGNATURE: Steven Sanchez MD, MMM PT NAME: Lazaro Villafana DATE: May 02, 2018 GASA + ALL Collected: 05/02/2018 Status: F Source: [place] FOR 7:35 AM [facility] RADIANCE USE ONLY REPOSITORY TYPE CODE TESTS RESULT OUT OF REFERENCE UNITS RANGE LAB PH 7.35-7.45 pH 7.39 LAB PCO2 34-46 mm Hg pCO2 34 LAB PO2 85-95 mm Hg pO2 88 LAB BE mmol/L Base Excess NEG 4 LAB HCO3 22-26 mmol/L Bicarbonate 20 Low LAB CO2CT 22.0-28.0 mmol/L CO2 Content 21 Low LAB O2HB 95-98 % 95 Oxyhemoglobin, Art. LAB COHB 0-5.0 % 1.2 Carboxyhemoglobin ,Art LAB MHGB 0.4-1.5 % 0.9 Methemoglobin LAB TEMP C 37.0 Temperature, Body LAB PHTC 7.35-7.45 pH, Temp 7.39 Corrected LAB PCO2T 34-46 mm Hg pCO2, Temp 34 Correct LAB PO2T mm Hg pO2, Temp 88 Corrected LAB NAB 135-146 mmol/L 135 Sodium,Whole Bld LAB KWB 3.5-5.0 mmol/L Potassium, 4.4 Whole Bld LAB HGBB 13.0-17.0 g/dL 10.2 Low Hemoglobin,Total, ACL LAB HCTB 39.0-51.0 % Hematocrit, 32 Low ACL LAB IC 1.08-1.30 mmol/L Calcium, 1.17 Ion, WB LAB GLB 60-105 mg/dL 195 High Glucose,Whole Bld LAB LACT 0.5-2.2 mmol/L Lactate 1.9 LAB ABGCOM Blood Gas O2 Comm, Art Administration Result Comment: 40% Performed By: #### ALLBG #### [facility] [address] [place], [place] [address] GASA + ALL Collected: 05/02/2018 Status: F Source: [place] FOR 5:47 AM [facility] RADIANCE USE ONLY REPOSITORY TYPE CODE TESTS RESULT OUT OF REFERENCE UNITS RANGE LAB PH 7.35-7.45 pH 7.39 LAB PCO2 34-46 mm Hg pCO2 Low 32 LAB PO2 85-95 mm Hg pO2 High 111 LAB BE mmol/L Base Excess NEG 5 LAB HCO3 22-26 mmol/L Bicarbonate Low 19 LAB CO2CT 22.0-28.0 mmol/L CO2 Content Low 20 LAB O2HB 95-98 % Oxyhemoglobin, Art. 97 LAB COHB 0-5.0 % Carboxyhemoglobin,A 0.9 rt LAB MHGB 0.4-1.5 % Methemoglobin 0.7 LAB TEMP C Temperature, Body 37.0 LAB PHTC 7.35-7.45 pH, Temp Corrected 7.39 LAB PCO2T 34-46 mm Hg pCO2, Temp Low Correct 32 LAB PO2T mm Hg pO2, Temp Corrected 111 LAB NAB 135-146 mmol/L Sodium,Whole Bld Low 134 LAB KWB 3.5-5.0 mmol/L Potassium, Whole Bld 4.0 LAB HGBB 13.0-17.0 g/dL Low Hemoglobin,Total,AC 10.0 L LAB HCTB 39.0-51.0 % Hematocrit, ACL Low 31 LAB IC 1.08-1.30 mmol/L Calcium, Ion, WB 1.17 LAB GLB 60-105 mg/dL Glucose,Whole Bld High 230 LAB LACT 0.5-2.2 mmol/L Lactate 2.0 Performed By: #### ALLBG #### [facility] [address], [place] [address] CBC Collected: 05/02/2018 Status: F Source: [place] 2:48 AM [facility] REPOSITORY TYPE CODE TESTS RESULT OUT OF REFERENCE UNITS RANGE LAB WBC 3.70-11.00 k/uL WBC 7.56 LAB RBC 4.20-6.00 m/uL Low RBC 3.41 LAB HGB 13.0-17.0 g/dL Low Hemoglobin 9.8 LAB HCT 39.0-51.0 % Low Hematocrit 29.8 LAB MCV 80.0-100.0 fL MCV 87.4 LAB MCH 26.0-34.0 pG MCH 28.7 LAB MCHC 30.5-36.0 g/dL MCHC 32.9 LAB RDWCV 11.5-15.0 % RDW-CV High 15.6 LAB PLTCT 150-400 k/uL Low Platelet Count 124 LAB MPV 9.0-12.7 fL MPV 11.1 LAB ABSNUC <0.01 k/uL Absolute nRBC <0.01 Performed By: #### CBC, CMP, MG1, PHOS #### [facility] [address], [place] [address] COMP METABOLIC PANEL Collected: 05/02/2018 Status: F Source: [place] 2:48 AM [facility] REPOSITORY TYPE CODE TESTS RESULT OUT OF REFERENCE UNITS RANGE LAB TP 6.3-8.0 g/dL Low Protein, Total 6.0 LAB ALB 3.9-4.9 g/dL Low Albumin 1.9 LAB CA 8.5-10.2 mg/dL Low Calcium, Total 7.7 LAB TBIL 0.2-1.3 mg/dL Bilirubin, Total 0.6 LAB ALKP 38-113 U/L Alkaline Phosphatase 59 LAB AST 14-40 U/L AST High 73 LAB GLU 74-99 mg/dL Glucose High 257 Result Comment: The [place] [employer] (ADA) provides guidance for cutoff values for fasting glucose and random glucose. The ADA defines fasting as no caloric intake for at least 8 hours. Fas ting plasma glucose results between 100 to 125 mg/dL indicate increased risk for diabetes (prediabetes). Fasting plasma glucose results greater than or equal to 126 mg/dL meet the criteria for diagnosis of diabetes. In the absence of unequivocal hyperglycemia, results should be confirmed by repeat testing. In a patient with classic symptoms of hyperglycemia or hyperglycemic crisis, random plasma glucose results greater than or equal to 200 mg/dL meet the criteria for diagnosis of diabetes. Reference: Standards of Medical Care in Diabetes 2016, [place] [employer]. Diabetes Care. 2016.39(Suppl 1). LAB BUN 9-24 mg/dL BUN High 42 LAB CRET 0.73-1.22 mg/dL Creatinine 1.03 LAB NA 136-144 mmol/L Sodium 137 LAB K 3.7-5.1 mmol/L Potassium 4.2 LAB CL 97-105 mmol/L Chloride 105 LAB CO2 22-30 mmol/L Low CO2 19 LAB AGAP 9-18 mmol/L Anion Gap 13 LAB ALT 10-54 U/L ALT 31 LAB GFRAA eGFR- Amer. >60 LAB GFRNAA . eGFR-All Other Races >60 Result Comment: eGFR (Estimated GFR) Units of measure: mL/min/1.73 meters squared eGFR is derived from the reexpressed MDRD Study equation using the following parameters: serum creatinine, age, gender and race. The creatinine assay has been calibrated to be traceable to IDMS. An eGFR <60 mL/min/1.73m2 for >3 months is consistent with chronic kidney disease. Refer to KDOQI guidelines for clinical interpretation. In patients with unstable renal function, e.g. those with acute kidney injury, the eGFR may not accurately reflect actual GFR. Performed By: #### CBC, CMP, MG1, PHOS #### [facility] [address] [place], [place] [address] MAGNESIUM Collected: 05/02/2018 Status: F Source: [place] 2:48 AM [facility] REPOSITORY TYPE CODE TESTS RESULT OUT OF REFERENCE UNITS RANGE LAB MG 1.7-2.3 mg/dL Magnesium 1.9 Performed By: #### CBC, CMP, MG1, PHOS #### [facility] [address], [place] [address] PHOSPHORUS Collected: 05/02/2018 Status: F Source: [place] 2:48 AM [facility] REPOSITORY TYPE CODE TESTS RESULT OUT OF REFERENCE UNITS RANGE LAB PHOS 2.7-4.8 mg/dL Phosphorus 2.9 Performed By: #### CBC, CMP, MG1, PHOS #### [facility] [address] [place], [place] [address] TYPE AND SCREEN Collected: 05/02/2018 Status: F Source: [place] 2:45 AM [facility] REPOSITORY TYPE CODE TESTS RESULT OUT OF REFERENCE UNITS RANGE LAB %ABR B ABO/RH(D) POSITIVE LAB % Antibody POS Screen Performed By: #### TSCR #### [facility] [address] [place] [address] GASA + ALL Collected: 05/02/2018 Status: F Source: [place] FOR 2:41 AM [facility] RADIANCE USE ONLY REPOSITORY TYPE CODE TESTS RESULT OUT OF REFERENCE UNITS RANGE LAB PH 7.35-7.45 pH 7.40 LAB PCO2 34-46 mm Hg pCO2 Low 31 LAB PO2 85-95 mm Hg pO2 High 97 LAB BE mmol/L Base Excess NEG 5 LAB HCO3 22-26 mmol/L Bicarbonate Low 19 LAB CO2CT 22.0-28.0 mmol/L CO2 Content Low 20 LAB O2HB 95-98 % Oxyhemoglobin, Art. 96 LAB COHB 0-5.0 % Carboxyhemoglobin,A 1.4 rt LAB MHGB 0.4-1.5 % Methemoglobin 0.9 LAB TEMP C Temperature, Body 37.0 LAB PHTC 7.35-7.45 pH, Temp Corrected 7.40 LAB PCO2T 34-46 mm Hg pCO2, Temp Low Correct 31 LAB PO2T mm Hg pO2, Temp Corrected 97 LAB NAB 135-146 mmol/L Sodium,Whole Bld 135 LAB KWB 3.5-5.0 mmol/L Potassium, Whole Bld 3.7 LAB HGBB 13.0-17.0 g/dL Low Hemoglobin,Total,AC 9.9 L LAB HCTB 39.0-51.0 % Hematocrit, ACL Low 31 LAB IC 1.08-1.30 mmol/L Calcium, Ion, WB 1.12 LAB GLB 60-105 mg/dL Glucose,Whole Bld High 229 LAB LACT 0.5-2.2 mmol/L Lactate 2.0 Performed By: #### ALLBG #### [facility] [address] [place], [place] [address] XR CHEST 1V FRONTAL Observed: 05/02/2018 Status: F Source: [facility] 2:[address] [facility] REPOSITORY * * *Final Report* * * DATE OF EXAM: May 02 2018 2:18AM JIX [id number] - XR CHEST 1V FRONTAL PORT / PROCEDURE REASON: Acute respiratory illness * * * * Physician Interpretation * * * * EXAMINATION: CHEST RADIOGRAPH (PORTABLE SINGLE VIEW AP) Exam Date/Time: 05/02/2018 2:18 AM Clinical History: Acute respiratory illness, MQ: [id number] Comparison: 1 day prior RESULT: See impression. IMPRESSION: Lines, tubes, and devices: Stable position of endotracheal tube and distal esophageal stent. NG tube extends into the superior aspect of the stent. 3 right-sided pleural drains in place. Left IJ central venous catheter tip in right atrium. A catheter is looped at the neck, and may be overlying although attention on follow-up suggested. Lungs and pleura: There is a medium-sized right pleural effusion (l hydropneumothorax as seen on recent chest CT) with adjacent right basilar atelectasis/consolidation, without significant change. Mild interstitial pulmonary edema , also unchanged. Linear subsegmental atelectasis in the left midlung. Cardiomediastinal silhouette: Stable cardiomediastinal silhouette, with stable prominence of the right paratracheal region which may be due to loculated fluid and/ or adenopathy. Steel Turner: NIDHI Transcribe Date/Time: May 02 2018 7:25A Dictated by : NEETU MORALES MD This examination was interpreted and the report reviewed and electronically signed by: NEETU MORALES MD on May 02 2018 7:30AM EST [id number] GASA + ALL Collected: 05/01/2018 Status: F Source: [place] FOR 7:59 PM [facility] REPOSITORY TYPE CODE TESTS RESULT OUT OF REFERENCE UNITS RANGE LAB PH 7.35-7.45 pH 7.37 LAB PCO2 34-46 mm Hg pCO2 36 LAB PO2 85-95 mm Hg pO2 High 110 LAB BE mmol/L Base Excess NEG 4 LAB HCO3 22-26 mmol/L Bicarbonate Low 20 LAB CO2CT 22.0-28.0 mmol/L CO2 Content Low 21 LAB O2HB 95-98 % Oxyhemoglobin, Art. 97 LAB COHB 0-5.0 % Carboxyhemoglobin,A 1.3 rt LAB MHGB 0.4-1.5 % Methemoglobin 0.6 LAB TEMP C Temperature, Body 37.0 LAB PHTC 7.35-7.45 pH, Temp Corrected 7.37 LAB PCO2T 34-46 mm Hg pCO2, Temp Correct 36 LAB PO2T mm Hg pO2, Temp Corrected 110 LAB NAB 135-146 mmol/L Sodium,Whole Bld 136 LAB KWB 3.5-5.0 mmol/L Potassium, Whole Bld 4.4 LAB HGBB 13.0-17.0 g/dL Low Hemoglobin,Total,AC 10.1 L LAB HCTB 39.0-51.0 % Hematocrit, ACL Low 31 LAB IC 1.08-1.30 mmol/L Calcium, Ion, WB 1.14 LAB GLB 60-105 mg/dL Glucose,Whole Bld High 291 LAB LACT 0.5-2.2 mmol/L Lactate 1.9 Performed By: #### ALLBG #### [facility] [address] [place], [place] [address] GASA + ALL Collected: 05/01/2018 Status: F Source: [place] FOR 5:39 PM [facility] REPOSITORY TYPE CODE TESTS RESULT OUT OF REFERENCE UNITS RANGE LAB PH 7.35-7.45 pH Low 7.34 LAB PCO2 34-46 mm Hg pCO2 39 LAB PO2 85-95 mm Hg pO2 High 152 LAB BE mmol/L Base Excess NEG 5 LAB HCO3 22-26 mmol/L Bicarbonate Low 20 LAB CO2CT 22.0-28.0 mmol/L CO2 Content 22 LAB O2HB 95-98 % Oxyhemoglobin, Art. 97 LAB COHB 0-5.0 % Carboxyhemoglobin,A 1.2 rt LAB MHGB 0.4-1.5 % Methemoglobin 0.8 LAB TEMP C Temperature, Body 37.0 LAB PHTC 7.35-7.45 pH, Temp Low Corrected 7.34 LAB PCO2T 34-46 mm Hg pCO2, Temp Correct 39 LAB PO2T mm Hg pO2, Temp Corrected 152 LAB NAB 135-146 mmol/L Sodium,Whole Bld 135 LAB KWB 3.5-5.0 mmol/L Potassium, Whole Bld 4.7 LAB HGBB 13.0-17.0 g/dL Low Hemoglobin,Total,AC 9.7 L LAB HCTB 39.0-51.0 % Hematocrit, ACL Low 30 LAB IC 1.08-1.30 mmol/L Calcium, Ion, WB Low 1.06 LAB GLB 60-105 mg/dL Glucose,Whole Bld High 258 LAB LACT 0.5-2.2 mmol/L Lactate 1.5 Performed By: #### ALLBG #### [facility] [address] [place], [place] [address] ANES POST Observed: 05/01/2018 Status: COMPLETED Source: [place] 3:54 PM [facility] REPOSITORY HNO ID: [id number] Author: Lita Cruz Service: Anesthesiology Author Type: Anesthesiologist Type: Anesthesia PostOp Filed: 05/01/2018 3:55 PM Note Text: POST ANESTHESIA EVALUATION NOTE SERVICE DATE: 05/01/2018 SERVICE TIME: 1552 : 1967 Vitals: 04/30/18 2010 04/30/18 2330 05/01/18 0330 05/01/18 0700 Temp: 36.9 ?C (98.4 ?F) 37.3 ?C (99.1 ?F) 36.8 ?C (98.2 ?F) 37.7 ?C (99.9 ?F) 05/01/18 1430 05/01/18 1450 05/01/18 1510 05/01/18 1530 Arterial BP 1: 128/62 129/66 115/60 116/60 BP: 05/01/18 1450 05/01/18 1510 05/01/18 1520 05/01/18 1530 Pulse: 77 75 74 74 05/01/18 1430 05/01/18 1450 05/01/18 1510 05/01/18 1520 Resp: 27 18 6 20 05/01/18 1450 05/01/18 1510 05/01/18 1520 05/01/18 1530 SpO2: 94% 95% 96% 96% Validated Vital Signs: Yes POST ANES STATUS: PACU/ICU Patient Condition: Guarded Neurological Status: On intravenous sedation. Pulmonary Status: On invasive mechanical ventilation. Airway Control: Intubated on mechanical ventilation. Cardiovascular Status: Guarded Pain: Adequately controlled Postoperative Nausea/Vomiting: No significant post operative nausea or vomiting Postoperative Hydration Status: Adequate. Intra-Operative Events: No Significant Anesthesia Events Anesthetic Complications: None Recommendation: Continue current plan of care Other Remarks: SIGNATURE: Lita Cruz MD PATIENT NAME: Lazaro Villafana DATE: May 01, 2018 TIME: 3:55 PM PAGER/CONTACT #: [phone] + ALL Collected: 05/01/2018 Status: F Source: [place] FOR 3:23 PM [facility] USE ONLY REPOSITORY TYPE CODE TESTS RESULT OUT OF REFERENCE UNITS RANGE LAB PH 7.35-7.45 pH 7.27 Low LAB PCO2 34-46 mm Hg pCO2 43 LAB PO2 85-95 mm Hg pO2 111 High LAB BE mmol/L Base Excess NEG 7 LAB HCO3 22-26 mmol/L Bicarbonate 19 Low LAB CO2CT 22.0-28.0 mmol/L CO2 Content 21 Low LAB O2HB 95-98 % 95 Oxyhemoglobin, Art. LAB COHB 0-5.0 % 1.3 Carboxyhemoglobin ,Art LAB MHGB 0.4-1.5 % 1.0 Methemoglobin LAB TEMP C 37.0 Temperature, Body LAB PHTC 7.35-7.45 pH, Temp 7.27 Low Corrected LAB PCO2T 34-46 mm Hg pCO2, Temp 43 Correct LAB PO2T mm Hg pO2, Temp 111 Corrected LAB NAB 135-146 mmol/L 138 Sodium,Whole Bld LAB KWB 3.5-5.0 mmol/L Potassium, 4.6 Whole Bld LAB HGBB 13.0-17.0 g/dL 9.3 Low Hemoglobin,Total, ACL LAB HCTB 39.0-51.0 % Hematocrit, 29 Low ACL LAB IC 1.08-1.30 mmol/L Calcium, 1.05 Low Ion, WB LAB GLB 60-105 mg/dL 179 High Glucose,Whole Bld LAB LACT 0.5-2.2 mmol/L Lactate 1.3 LAB ABGCOM Blood Gas O2 Comm, Art Administration Result Comment: 60% Performed By: #### ALLBG #### [facility] [address] [place], [place] [address] CBC Collected: 05/01/2018 Status: F Source: [place] 3:21 PM [facility] REPOSITORY TYPE CODE TESTS RESULT OUT OF REFERENCE UNITS RANGE LAB WBC 3.70-11.00 k/uL WBC High 14.41 LAB RBC 4.20-6.00 m/uL Low RBC 3.36 LAB HGB 13.0-17.0 g/dL Low Hemoglobin 9.6 LAB HCT 39.0-51.0 % Low Hematocrit 30.1 LAB MCV 80.0-100.0 fL MCV 89.6 LAB MCH 26.0-34.0 pG MCH 28.6 LAB MCHC 30.5-36.0 g/dL MCHC 31.9 LAB RDWCV 11.5-15.0 % RDW-CV High 15.7 LAB PLTCT 150-400 k/uL Platelet Count 194 LAB MPV 9.0-12.7 fL MPV 10.7 LAB ABSNUC <0.01 k/uL Absolute nRBC <0.01 Performed By: #### CBC, PTT, FIBCT, PT, NH3, MG1, PHOS, BMP #### [facility] [address] [place], [place] [address] APTT Collected: 05/01/2018 Status: F Source: [place] 3:21 PM [facility] REPOSITORY TYPE CODE TESTS RESULT OUT OF RANGE REFERENCE UNITS LAB APTT 23.0-32.4 sec APTT 29.9 Result Comment: Unfractionated Heparin Therapeutic Ranges: Standard Heparin Nomogram: 53 to 78 seconds (anti-Xa level of 0.3 to 0.7 U/ml) Low Dose/ACS Nomogram: 49 to 67 seconds (anti-Xa level of 0.2 to 0.5 U/ml) Stroke Treatment Nomogram: 49 to 67 seconds (anti-Xa level of 0.2 to 0.5 U/ml) Note: The APTT therapeutic range has been determined for the current lot of laboratory APTT reagent in use throughout the [facility]. Sample checked for a clot. Performed By: #### CBC, PTT, FIBCT, PT, NH3, MG1, PHOS, BMP #### [facility] [address] [place], [place] [address] FIBRINOGEN Collected: 05/01/2018 Status: F Source: [place] 3:21 PM [facility] REPOSITORY TYPE CODE TESTS RESULT OUT OF REFERENCE UNITS RANGE LAB FIBCT 200-400 mg/dL High Fibrinogen 478 Result Comment: Sample checked for a clot. Performed By: #### CBC, PTT, FIBCT, PT, NH3, MG1, PHOS, BMP #### [facility] [address] [place], [place] [address] PROTIME Collected: 05/01/2018 Status: F Source: [place] 3:21 PM [facility] REPOSITORY TYPE CODE TESTS RESULT OUT OF RANGE REFERENCE UNITS LAB PSEC 9.7-13.0 sec High PT Sec 13.9 Result Comment: Sample checked for a clot. LAB INR 0.9-1.3 PT INR 1.3 Result Comment: Vitamin K Antagonist (VKA) Therapeutic Range: INR 2 to 3 (Target INR of 2.5) Note: For patients treated with VKA drugs, such as warfarin, the [place] [employer] 2012 Guideline recommends a therapeutic INR range of 2 to 3 (target INR of 2.5). This recommendation includes high-risk patients with antiphospholipid syndrome with previous arterial or venous thromboembolism, current-generation mechanical or bioprosthetic aortic heart valve replacement. Note: Patients with mechanical aortic valve replacement and additional risk factors for thromboembolic events (atrial fibrillation, previous thromboembolism, LV dysfunction, hypercoagulable conditions) or an older generation mechanical AVR (i.e., ball in-Cage) or any mechanical MVR should have a INR therapeutic range of 2.5 to 3.5 (target INR of 3). Serjio ALTAMIRANO, et al. Chest 2012, 141:7S-47S Rashida RA, et al. [facility] 2017, 70: 252-289 Sample checked for a clot. Performed By: #### CBC, PTT, FIBCT, PT, NH3, MG1, PHOS, BMP #### [facility] [address] [place], [place] [address] AMMONIA Collected: 05/01/2018 Status: C Source: [place] 3:21 PM [facility] REPOSITORY TYPE CODE TESTS RESULT OUT OF REFERENCE UNITS RANGE LAB NH3 16-60 umol/L High Ammonia 66 Result Comment: Result may be falsely increased due to the fact that the sample was not received on ice. Ammonia may be falsely increased due to delayed receipt in lab. MARY [id number] 05/01/2018 H.SIGNOR Disregard NO ICE comment. Specimen received on ice. Delay in processing due to Chemistry instrumentation issue. EI 1916 05/01/18 Corrected on 05/01 AT 1918: Previously reported as 54 Performed By: #### CBC, PTT, FIBCT, PT, NH3, MG1, PHOS, BMP #### [facility] [address] [place] [address] MAGNESIUM Collected: 05/01/2018 Status: F Source: [place] 3:21 PM [facility] REPOSITORY TYPE CODE TESTS RESULT OUT OF REFERENCE UNITS RANGE LAB MG 1.7-2.3 mg/dL Low Magnesium 1.6 Performed By: #### CBC, PTT, FIBCT, PT, NH3, MG1, PHOS, BMP #### [facility] [address] [place] [address] PHOSPHORUS Collected: 05/01/2018 Status: F Source: [place] 3:21 PM [facility] REPOSITORY TYPE CODE TESTS RESULT OUT OF REFERENCE UNITS RANGE LAB PHOS 2.7-4.8 mg/dL Phosphorus 4.7 Performed By: #### CBC, PTT, FIBCT, PT, NH3, MG1, PHOS, BMP #### [facility] [address] [place], [place] [address] BASIC METABOLIC PANL Collected: 05/01/2018 Status: F Source: [place] 3:[address] [facility] REPOSITORY TYPE CODE TESTS RESULT OUT OF REFERENCE UNITS RANGE LAB GLU 74-99 mg/dL High Glucose 188 Result Comment: The [place] [employer] (ADA) provides guidance for cutoff values for fasting glucose and random glucose. The ADA defines fasting as no caloric intake for at least 8 hours. Fas ting plasma glucose results between 100 to 125 mg/dL indicate increased risk for diabetes (prediabetes). Fasting plasma glucose results greater than or equal to 126 mg/dL meet the criteria for diagnosis of diabetes. In the absence of unequivocal hyperglycemia, results should be confirmed by repeat testing. In a patient with classic symptoms of hyperglycemia or hyperglycemic crisis, random plasma glucose results greater than or equal to 200 mg/dL meet the criteria for diagnosis of diabetes. Reference: Standards of Medical Care in Diabetes 2016, [place] [employer]. Diabetes Care. 2016.39(Suppl 1). LAB BUN 9-24 mg/dL BUN High 38 LAB CRET 0.73-1.22 mg/dL Creatinine 1.16 LAB NA 136-144 mmol/L Sodium 137 LAB K 3.7-5.1 mmol/L Potassium High 5.2 LAB CL 97-105 mmol/L Chloride High 107 LAB CO2 22-30 mmol/L Low CO2 21 LAB AGAP 9-18 mmol/L Anion Gap 9 LAB CA 8.5-10.2 mg/dL Low Calcium, Total 7.5 LAB GFRAA eGFR- Amer. >60 LAB GFRNAA . eGFR-All Other Races >60 Result Comment: eGFR (Estimated GFR) Units of measure: mL/min/1.73 meters squared eGFR is derived from the reexpressed MDRD Study equation using the following parameters: serum creatinine, age, gender and race. The creatinine assay has been calibrated to be traceable to IDMS. An eGFR <60 mL/min/1.73m2 for >3 months is consistent with chronic kidney disease. Refer to KDOQI guidelines for clinical interpretation. In patients with unstable renal function, e.g. those with acute kidney injury, the eGFR may not accurately reflect actual GFR. Performed By: #### CBC, PTT, FIBCT, PT, NH3, MG1, PHOS, BMP #### [facility] [address] [place] [id number] PROGRESS Observed: 05/01/2018 Status: COMPLETED Source: [place] 2:58 PM [facility] REPOSITORY HNO ID: [id number] Author: García Hodge Service: Critical Care Author Type: Anesthesiologist Type: Progress Notes Filed: 05/01/2018 4:03 PM Note Text: Post op open thoracotomy--> Modest blood product utilization.transfused 1:1;1. On levo 6. Metabolic acidosis-->LRB/PRBC Esoph stent had migrated and was left alone at [facility]. CT x 3 right side. --> Continuing abx Vent support (high risk to need trach) c PEEP 10 or greater x 24 H Check ammonia and full coag panel NGT is in place past migrated stent-->guard this to the last man! Strict NPO/TPN-->increase Na Acetate for BE (-) 7. R groin line out maybe in am. WILMA Hodge MD XR CHEST 1V FRONTAL Observed: 05/01/2018 Status: F Source: [facility] 2:56 PM [facility] REPOSITORY * * *Final Report* * * DATE OF EXAM: May 01 2018 2:56PM ANGIESZKA [id number] - XR CHEST 1V FRONTAL PORT / PROCEDURE REASON: Post-operative / post-procedure assessment, symptomatic * * * * Physician Interpretation * * * * CHEST RADIOGRAPH (PORTABLE SINGLE VIEW AP) Exam Date/Time: 05/01/2018 2:56 PM Indications: Post-operative / post-procedure assessment, symptomatic MQ: [id number] Comparison: Earlier the same day RESULTS: See Impression. IMPRESSION: Lines, Tubes, and Devices: ET tube mid trachea, nasogastric tube over stomach, left IJ line cavoatrial junction, several right-sided chest tubes, esophageal stent crossing the GE junction. Lungs and Pleura: Right greater than left effusions and scattered lung opacities similar to prior. No pneumothorax. Cardiomediastinal silhouette: Stable cardiac silhouette. Steel Turner: PSCB Transcribe Date/Time: May 01 2018 9:50P Dictated by : JUANCARLOS AHUMADA MD This examination was interpreted and the report reviewed and electronically signed by: JUANCARLOS AHUMADA MD on May 01 2018 9:51PM EST [id number] + ALL Collected: 05/01/2018 Status: F Source: [facility] 1:48 PM [facility] RADIANCE USE ONLY REPOSITORY TYPE CODE TESTS RESULT OUT OF REFERENCE UNITS RANGE LAB PH 7.35-7.45 pH Low 7.24 LAB PCO2 34-46 mm Hg pCO2 High 52 LAB PO2 85-95 mm Hg pO2 High 183 LAB BE mmol/L Base Excess NEG 6 LAB HCO3 22-26 mmol/L Bicarbonate Low 21 LAB CO2CT 22.0-28.0 mmol/L CO2 Content 23 LAB O2HB 95-98 % Oxyhemoglobin, Art. 97 LAB COHB 0-5.0 % Carboxyhemoglobin, 1.0 Art LAB MHGB 0.4-1.5 % Methemoglobin 1.0 LAB TEMP C Temperature, Body 37.0 LAB PHTC 7.35-7.45 pH, Temp Low Corrected 7.24 LAB PCO2T 34-46 mm Hg pCO2, Temp High Correct 52 LAB PO2T mm Hg pO2, Temp Corrected 183 LAB NAB 135-146 mmol/L Sodium,Whole Bld 138 LAB KWB 3.5-5.0 mmol/L Potassium, Whole Bld 5.0 LAB HGBB 13.0-17.0 g/dL Low Hemoglobin,Total,A 9.5 CL LAB HCTB 39.0-51.0 % Hematocrit, Low ACL 30 LAB IC 1.08-1.30 mmol/L Calcium, Ion, Low WB 1.01 LAB GLB 60-105 mg/dL Glucose,Whole High Bld 179 LAB LACT 0.5-2.2 mmol/L Lactate 1.4 LAB ACBDTE Notify Date, Art [id number] LAB ACBTME Notify Time, Art [id number] Performed By: #### ALLBG #### [facility] [address] [place], [place] [address] BRIEF OP NOT Observed: 05/01/2018 Status: COMPLETED Source: [place] 1:44 PM [facility] REPOSITORY HNO ID: [id number] Author: Dakotah Beasley (Res) Yasmany Service: Thoracic Surgery Author Type: Resident Type: Brief Op Note Filed: 05/01/2018 1:59 PM Note Text: CARDIOTHORACIC BRIEF OP NOTE LOG ID: [id number] SURGERY/PROCEDURE DATE: 05/01/2018 INCISION/PROCEDURE START TIME: 8:41 AM INCISION CLOSE/PROCEDURE END TIME: 1:38 PM SURGEON(S) AND COAL HAULER OPERATOR(S): Surgeon(s) and Role: * Garrison Gr - Primary * Dakotah Beasley (Gilbert) Yasmany - Resident - Assisting Registered Nurse Hub Cutter: Steven (Blayne) BLAYNE AdanDAIRY HUSBANDRY TEACHER AND ANESTHESIA: Procedure(s) and Anesthesia Type: * DECORTICATION LUNG TOTAL - General Details: Right VATS exploration, Right thoracotomy, Total right pleural decortication, primary repair of esophageal perforation with intercostal muscle flap, bronchoscopy and esophagoscopy. ANESTHESIA: General BRIEF FINDINGS: empyema with pleural rind and bilious fluid. 2 cm linear tear in the free wall of the distal esophagus. Migration of esophageal stent past distal to the defect. PREOPERATIVE DIAGNOSIS: Esophageal perforation POSTOPERATIVE DIAGNOSIS: Same ESTIMATED BLOOD LOSS: 500 mL TUBES/DRAINS: At Skin: Right anterior chest tube - posterior right pleura behind muscle flap, posterior to esophageal repair Right posterior chest tube - Anterior right pleura Right anahi - Anterior to esophageal repair 18Fr NG tube SPECIMENS: Specimen ID Type Site Comments Sent To right pleural tissue Tissue Lung prepped by PERLA/HUI, sent with DG Microbiology 1--right pleural tissue Tissue Lung prepped by PERLA/HUI, sent with RS Pathology Routine IMPLANTS: None COMPLICATIONS: None SIGNATURE: Dakotah Jade MD PATIENT NAME: Lazaro Villafana DATE: May 01, 2018 TIME: 1:57 PM PAGER/CONTACT #: [phone] THROMBOGRAPH PANEL Collected: 05/01/2018 Status: F Source: [place] 1:[address] [facility] REPOSITORY TYPE CODE TESTS RESULT OUT OF REFERENCE UNITS RANGE LAB RTEG 4.0-10.0 min R Value Low 3.8 LAB MATEG 51.0-69.0 mm Maximum High Amplitude 76.8 LAB DEGANG 47.0-74.0 deg Degree High Angle 78.5 LAB LY30 0.0-5.0 % Lysis Time 30 0.0 LAB CITEG Coagulation Index 5 Result Comment: (NOTE) Reference range: NEG 4 to 2 The Coagulation Index, a secondary parameter, is labeled by the adzing and boring machine helper as for research use only and is used per the adzing and boring machine helper's instructions. Its performance characteristics were determined by [facility]'s [facility] Laboratory Medicine [place] in a manner consistent with CLIA requirements. This test has not been cleared by the U.S. Food and Drug Administration. LAB TEGINT Thrombograph Interp (NOTE) Result Comment: Performing Pathologist: Yasemin García Interpretation: Abnormal - see comment below. A thromboelastograph (TEG) study was performed using citrate-anticoagulated whole blood. The R value, a measure of coagulation function, is short. This indicates coagulation hyperfunction. The Maximal Amplitude (MA), a measure of platelet function, is increased. This is indicative of platelet hyperfunction. The Angle, a measure of fibrinogen function, is increased. This is indicative of increased fibrinogen concentration or function. The Ly30, a measure of fibrinolysis function, is normal. This is indicative of normal fibrinolytic function. The Coagulation Index (CI), a measure of hemostasis function, is increased. The CI is a calculated parameter based on the other TEG results. This is indicative of increased hemostasis function. Performed By: #### TEGPNP #### [facility] [address] [place], [place] [address] GASA + ALL Collected: 05/01/2018 Status: F Source: [place] 12:51 PM [facility] RADIANCE USE ONLY REPOSITORY TYPE CODE TESTS RESULT OUT OF REFERENCE UNITS RANGE LAB PH 7.35-7.45 pH Low 7.23 LAB PCO2 34-46 mm Hg pCO2 High 51 LAB PO2 85-95 mm Hg pO2 High 192 LAB BE mmol/L Base Excess NEG 6 LAB HCO3 22-26 mmol/L Bicarbonate Low 21 LAB CO2CT 22.0-28.0 mmol/L CO2 Content 22 LAB O2HB 95-98 % Oxyhemoglobin, Art. 97 LAB COHB 0-5.0 % Carboxyhemoglobin,A 1.3 rt LAB MHGB 0.4-1.5 % Methemoglobin 0.9 LAB TEMP C Temperature, Body 37.0 LAB PHTC 7.35-7.45 pH, Temp Low Corrected 7.23 LAB PCO2T 34-46 mm Hg pCO2, Temp High Correct 51 LAB PO2T mm Hg pO2, Temp Corrected 192 LAB NAB 135-146 mmol/L Sodium,Whole Bld 137 LAB KWB 3.5-5.0 mmol/L Potassium, Whole Bld 5.0 LAB HGBB 13.0-17.0 g/dL Low Hemoglobin,Total,AC 9.8 L LAB HCTB 39.0-51.0 % Hematocrit, ACL Low 30 LAB IC 1.08-1.30 mmol/L Calcium, Ion, WB 1.11 LAB GLB 60-105 mg/dL Glucose,Whole Bld High 170 LAB LACT 0.5-2.2 mmol/L Lactate 1.5 Performed By: #### ALLBG #### [facility] [address] [place], [place] [address] GASA + ALL Collected: 05/01/2018 Status: F Source: [place] FOR 12:04 PM [facility] USE ONLY REPOSITORY TYPE CODE TESTS RESULT OUT OF REFERENCE UNITS RANGE LAB PH 7.35-7.45 pH Low 7.25 LAB PCO2 34-46 mm Hg pCO2 High 48 LAB PO2 85-95 mm Hg pO2 High 173 LAB BE mmol/L Base Excess NEG 6 LAB HCO3 22-26 mmol/L Bicarbonate Low 20 LAB CO2CT 22.0-28.0 mmol/L CO2 Content 22 LAB O2HB 95-98 % Oxyhemoglobin, Art. 97 LAB COHB 0-5.0 % Carboxyhemoglobin,A 0.7 rt LAB MHGB 0.4-1.5 % Methemoglobin 1.2 LAB TEMP C Temperature, Body 37.0 LAB PHTC 7.35-7.45 pH, Temp Low Corrected 7.25 LAB PCO2T 34-46 mm Hg pCO2, Temp High Correct 48 LAB PO2T mm Hg pO2, Temp Corrected 173 LAB NAB 135-146 mmol/L Sodium,Whole Bld 138 LAB KWB 3.5-5.0 mmol/L Potassium, Whole Bld 4.3 LAB HGBB 13.0-17.0 g/dL Low Hemoglobin,Total,AC 8.7 L LAB HCTB 39.0-51.0 % Hematocrit, ACL Low 27 LAB IC 1.08-1.30 mmol/L Calcium, Ion, WB 1.12 LAB GLB 60-105 mg/dL Glucose,Whole Bld High 162 LAB LACT 0.5-2.2 mmol/L Lactate 1.2 Performed By: #### ALLBG #### [facility] [address] [place], [place] [address] GASA + ALL Collected: 05/01/2018 Status: F Source: [place] 11:21 AM [facility] USE ONLY REPOSITORY TYPE CODE TESTS RESULT OUT OF REFERENCE UNITS RANGE LAB PH 7.35-7.45 pH Low 7.25 LAB PCO2 34-46 mm Hg pCO2 High 52 LAB PO2 85-95 mm Hg pO2 High 133 LAB BE mmol/L Base Excess NEG 5 LAB HCO3 22-26 mmol/L Bicarbonate 22 LAB CO2CT 22.0-28.0 mmol/L CO2 Content 23 LAB O2HB 95-98 % Oxyhemoglobin, Art. 96 LAB COHB 0-5.0 % Carboxyhemoglobin,A 1.0 rt LAB MHGB 0.4-1.5 % Methemoglobin 0.9 LAB TEMP C Temperature, Body 37.0 LAB PHTC 7.35-7.45 pH, Temp Low Corrected 7.25 LAB PCO2T 34-46 mm Hg pCO2, Temp High Correct 52 LAB PO2T mm Hg pO2, Temp Corrected 133 LAB NAB 135-146 mmol/L Sodium,Whole Bld 136 LAB KWB 3.5-5.0 mmol/L Potassium, Whole Bld 4.5 LAB HGBB 13.0-17.0 g/dL Low Hemoglobin,Total,AC 8.3 L LAB HCTB 39.0-51.0 % Hematocrit, ACL Low 26 LAB IC 1.08-1.30 mmol/L Calcium, Ion, WB 1.16 LAB GLB 60-105 mg/dL Glucose,Whole Bld High 177 LAB LACT 0.5-2.2 mmol/L Lactate 1.2 Performed By: #### ALLBG #### [place] [address] PLATELET COUNT Collected: 05/01/2018 Status: F Source: [place] 11:01 [facility] REPOSITORY TYPE CODE TESTS RESULT OUT OF REFERENCE UNITS RANGE LAB PLTCT 150-400 k/uL Platelet Count 202 Performed By: #### PLTCT, FIBCT, PT, PTT #### [place] [id number] [place] [address] FIBRINOGEN Collected: 05/01/2018 Status: F Source: [place] 11:01 [facility] REPOSITORY TYPE CODE TESTS RESULT OUT OF REFERENCE UNITS RANGE LAB FIBCT 200-400 mg/dL High Fibrinogen 432 Performed By: #### PLTCT, FIBCT, PT, PTT #### [facility] [address] [place] [id number] PROTIME Collected: 05/01/2018 Status: F Source: [place] 11:01 [facility] REPOSITORY TYPE CODE TESTS RESULT OUT OF RANGE REFERENCE UNITS LAB PSEC 9.7-13.0 sec High PT Sec 15.1 LAB INR 0.9-1.3 High PT INR 1.5 Result Comment: Vitamin K Antagonist (VKA) Therapeutic Range: INR 2 to 3 (Target INR of 2.5) Note: For patients treated with VKA drugs, such as warfarin, the [place] [employer] 2012 Guideline recommends a therapeutic INR range of 2 to 3 (target INR of 2.5). This recommendation includes high-risk patients with antiphospholipid syndrome with previous arterial or venous thromboembolism, current-generation mechanical or bioprosthetic aortic heart valve replacement. Note: Patients with mechanical aortic valve replacement and additional risk factors for thromboembolic events (atrial fibrillation, previous thromboembolism, LV dysfunction, hypercoagulable conditions) or an older generation mechanical AVR (i.e., ball in-Cage) or any mechanical MVR should have a INR therapeutic range of 2.5 to 3.5 (target INR of 3). Serjio ALTAMIRANO, et al. Chest 2012, 141:7S-47S Rashida RA, et al. JAC 2017, 70: 252-289 Performed By: #### PLTCT, FIBCT, PT, PTT #### [facility] [address] [place], [place] [address] APTT Collected: 05/01/2018 Status: F Source: [place] 11:01 [facility] REPOSITORY TYPE CODE TESTS RESULT OUT OF RANGE REFERENCE UNITS LAB APTT 23.0-32.4 sec High APTT 33.8 Result Comment: Unfractionated Heparin Therapeutic Ranges: Standard Heparin Nomogram: 53 to 78 seconds (anti-Xa level of 0.3 to 0.7 U/ml) Low Dose/ACS Nomogram: 49 to 67 seconds (anti-Xa level of 0.2 to 0.5 U/ml) Stroke Treatment Nomogram: 49 to 67 seconds (anti-Xa level of 0.2 to 0.5 U/ml) Note: The APTT therapeutic range has been determined for the current lot of laboratory APTT reagent in use throughout the [facility]. Performed By: #### PLTCT, FIBCT, PT, PTT #### [facility] [address] [place], [place] [address] THROMBOGRAPH PANEL Collected: 05/01/2018 Status: F Source: [place] 11:01 AM [facility] REPOSITORY TYPE CODE TESTS RESULT OUT OF REFERENCE UNITS RANGE LAB RTEG 4.0-10.0 min R Value 5.2 LAB MATEG 51.0-69.0 mm Maximum High Amplitude 74.9 LAB DEGANG 47.0-74.0 deg Degree High Angle 77.2 LAB LY30 0.0-5.0 % Lysis Time 30 0.0 LAB CITEG Coagulation Index 4 Result Comment: (NOTE) Reference range: NEG 4 to 2 The Coagulation Index, a secondary parameter, is labeled by the adzing and boring machine helper as for research use only and is used per the adzing and boring machine helper's instructions. Its performance characteristics were determined by [facility]'s Dave [facility] Pathology and Laboratory Medicine [place] in a manner consistent with CLIA requirements. This test has not been cleared by the U.S. Food and Drug Administration. LAB TEGINT Thrombograph Interp (NOTE) Result Comment: Performing Pathologist: Yasemin García Interpretation: Abnormal - see comment below. A thromboelastograph (TEG) study was performed using citrate-anticoagulated whole blood. The R value, a measure of coagulation function, is within the normal range. This indicates normal coagulation function. The Maximal Amplitude (MA), a measure of platelet function, is increased. This is indicative of platelet hyperfunction. The Angle, a measure of fibrinogen function, is increased. This is indicative of increased fibrinogen concentration or function. The Ly30, a measure of fibrinolysis function, is normal. This is indicative of normal fibrinolytic function. The Coagulation Index (CI), a measure of hemostasis function, is increased. The CI is a calculated parameter based on the other TEG results. This is indicative of increased hemostasis function. Performed By: #### TEGPNP #### [facility] [address] [place], [place] [address] GASA + ALL Collected: 05/01/2018 Status: F Source: [facility] 10:53 AM [facility] RADIANCE USE ONLY REPOSITORY TYPE CODE TESTS RESULT OUT OF REFERENCE UNITS RANGE LAB PH 7.35-7.45 pH Low 7.28 LAB PCO2 34-46 mm Hg pCO2 46 LAB PO2 85-95 mm Hg pO2 High 230 LAB BE mmol/L Base Excess NEG 5 LAB HCO3 22-26 mmol/L Bicarbonate Low 21 LAB CO2CT 22.0-28.0 mmol/L CO2 Content 22 LAB O2HB 95-98 % Oxyhemoglobin, Art. 97 LAB COHB 0-5.0 % Carboxyhemoglobin, 1.5 Art LAB MHGB 0.4-1.5 % Methemoglobin 1.1 LAB TEMP C Temperature, Body 37.0 LAB PHTC 7.35-7.45 pH, Temp Low Corrected 7.28 LAB PCO2T 34-46 mm Hg pCO2, Temp Correct 46 LAB PO2T mm Hg pO2, Temp Corrected 230 LAB NAB 135-146 mmol/L Sodium,Whole Bld 138 LAB KWB 3.5-5.0 mmol/L Potassium, Whole Bld 4.5 LAB HGBB 13.0-17.0 g/dL Low Hemoglobin,Total,A 8.2 CL LAB HCTB 39.0-51.0 % Hematocrit, Low ACL 25 LAB IC 1.08-1.30 mmol/L Calcium, Ion, WB 1.15 LAB GLB 60-105 mg/dL Glucose,Whole High Bld 159 LAB LACT 0.5-2.2 mmol/L Lactate 1.2 LAB ACBDTE Notify Date, Art [id number] LAB ACBTME Notify Time, Art Performed By: #### ALLBG #### [facility] [address] [place] [id number] GASA + ALL Collected: 05/01/2018 Status: F Source: [place] 10:15 AM [facility] REPOSITORY TYPE CODE TESTS RESULT OUT OF REFERENCE UNITS RANGE LAB PH 7.35-7.45 pH Low 7.25 LAB PCO2 34-46 mm Hg pCO2 High 50 LAB PO2 85-95 mm Hg pO2 High 183 LAB BE mmol/L Base Excess NEG 6 LAB HCO3 22-26 mmol/L Bicarbonate Low 21 LAB CO2CT 22.0-28.0 mmol/L CO2 Content 23 LAB O2HB 95-98 % Oxyhemoglobin, Art. 97 LAB COHB 0-5.0 % Carboxyhemoglobin,A 0.4 rt LAB MHGB 0.4-1.5 % Methemoglobin 1.1 LAB TEMP C Temperature, Body 37.0 LAB PHTC 7.35-7.45 pH, Temp Low Corrected 7.25 LAB PCO2T 34-46 mm Hg pCO2, Temp High Correct 50 LAB PO2T mm Hg pO2, Temp Corrected 183 LAB NAB 135-146 mmol/L Sodium,Whole Bld 137 LAB KWB 3.5-5.0 mmol/L Potassium, Whole Bld 4.6 LAB HGBB 13.0-17.0 g/dL Low Hemoglobin,Total,AC 9.5 L LAB HCTB 39.0-51.0 % Hematocrit, ACL Low 30 LAB IC 1.08-1.30 mmol/L Calcium, Ion, WB 1.16 LAB GLB 60-105 mg/dL Glucose,Whole Bld High 154 LAB LACT 0.5-2.2 mmol/L Lactate 1.1 Performed By: #### ALLBG #### [place] [id number] [place] [address] Observed: 05/01/2018 Status: F Source: [place] TISSUE CULT / STAIN 9:44 [facility] REPOSITORY Sp. Request/Comment: - Specimen collected in surgery. Specimen received in sterile container. Smear Result - No organisms seen No Polymorphonuclear Leukocytes Culture Result - No growth 3 days Performed By: #### TISCUL #### [place] [id number] [place] [address] Observed: 05/01/2018 Status: F Source: [place] ANAEROBE CULTURE 9:44 [facility] REPOSITORY Culture Result - Negative for anaerobes. Performed By: #### ANACUL #### [place] [id number] [place] [address] GASA + ALL Collected: 05/01/2018 Status: F Source: [place] FOR 9:23 AM [facility] RADIANCE USE ONLY REPOSITORY TYPE CODE TESTS RESULT OUT OF REFERENCE UNITS RANGE LAB PH 7.35-7.45 pH Low 7.29 LAB PCO2 34-46 mm Hg pCO2 45 LAB PO2 85-95 mm Hg pO2 High 194 LAB BE mmol/L Base Excess NEG 5 LAB HCO3 22-26 mmol/L Bicarbonate Low 21 LAB CO2CT 22.0-28.0 mmol/L CO2 Content 22 LAB O2HB 95-98 % Oxyhemoglobin, Art. 97 LAB COHB 0-5.0 % Carboxyhemoglobin,A 0.6 rt LAB MHGB 0.4-1.5 % Methemoglobin 1.1 LAB TEMP C Temperature, Body 37.0 LAB PHTC 7.35-7.45 pH, Temp Low Corrected 7.29 LAB PCO2T 34-46 mm Hg pCO2, Temp Correct 45 LAB PO2T mm Hg pO2, Temp Corrected 194 LAB NAB 135-146 mmol/L Sodium,Whole Bld 137 LAB KWB 3.5-5.0 mmol/L Potassium, Whole Bld 4.5 LAB HGBB 13.0-17.0 g/dL Low Hemoglobin,Total,AC 10.5 L LAB HCTB 39.0-51.0 % Hematocrit, ACL Low 33 LAB IC 1.08-1.30 mmol/L Calcium, Ion, WB 1.18 LAB GLB 60-105 mg/dL Glucose,Whole Bld High 156 LAB LACT 0.5-2.2 mmol/L Lactate 1.2 Performed By: #### ALLBG #### [facility] [address] [place], [place] [address] PLATELET COUNT Collected: 05/01/2018 Status: F Source: [place] 9:20 AM [facility] REPOSITORY TYPE CODE TESTS RESULT OUT OF REFERENCE UNITS RANGE LAB PLTCT 150-400 k/uL Platelet Count 206 Performed By: #### PLTCT, PTT, FIBCT, PT #### [facility] [address] [place] [address] APTT Collected: 05/01/2018 Status: F Source: [place] 9:20 AM [facility] REPOSITORY TYPE CODE TESTS RESULT OUT OF RANGE REFERENCE UNITS LAB APTT 23.0-32.4 sec High APTT 32.5 Result Comment: Unfractionated Heparin Therapeutic Ranges: Standard Heparin Nomogram: 53 to 78 seconds (anti-Xa level of 0.3 to 0.7 U/ml) Low Dose/ACS Nomogram: 49 to 67 seconds (anti-Xa level of 0.2 to 0.5 U/ml) Stroke Treatment Nomogram: 49 to 67 seconds (anti-Xa level of 0.2 to 0.5 U/ml) Note: The APTT therapeutic range has been determined for the current lot of laboratory APTT reagent in use throughout the [facility]. Performed By: #### PLTCT, PTT, FIBCT, PT #### [facility] [address] [place], [place] [address] FIBRINOGEN Collected: 05/01/2018 Status: F Source: [place] 9:20 AM [facility] REPOSITORY TYPE CODE TESTS RESULT OUT OF REFERENCE UNITS RANGE LAB FIBCT 200-400 mg/dL High Fibrinogen 483 Result Comment: Result rechecked. Sample checked for a clot. Performed By: #### PLTCT, PTT, FIBCT, PT #### [facility] [address] [place], [place] [address] PROTIME Collected: 05/01/2018 Status: F Source: [place] 9:20 AM [facility] REPOSITORY TYPE CODE TESTS RESULT OUT OF RANGE REFERENCE UNITS LAB PSEC 9.7-13.0 sec High PT Sec 14.8 LAB INR 0.9-1.3 High PT INR 1.4 Result Comment: Vitamin K Antagonist (VKA) Therapeutic Range: INR 2 to 3 (Target INR of 2.5) Note: For patients treated with VKA drugs, such as warfarin, the [place] [employer] 2012 Guideline recommends a therapeutic INR range of 2 to 3 (target INR of 2.5). This recommendation includes high-risk patients with antiphospholipid syndrome with previous arterial or venous thromboembolism, current-generation mechanical or bioprosthetic aortic heart valve replacement. Note: Patients with mechanical aortic valve replacement and additional risk factors for thromboembolic events (atrial fibrillation, previous thromboembolism, LV dysfunction, hypercoagulable conditions) or an older generation mechanical AVR (i.e., ball in-Cage) or any mechanical MVR should have a INR therapeutic range of 2.5 to 3.5 (target INR of 3). Serjio GH, et al. Chest 2012, 141:7S-47S Rashida RA, et al. [facility] 2017, 70: 252-289 Performed By: #### PLTCT, PTT, FIBCT, PT #### [facility] [address] [place], [place] [address] PROGRESS Observed: 05/01/2018 Status: COMPLETED Source: [place] 8:[address] [facility] REPOSITORY HNO ID: [id number] Author: García Hodge Service: Critical Care Author Type: Anesthesiologist Type: Progress Notes Filed: 05/01/2018 8:53 AM Note Text: [facility] Note Name: Lazaro Villafana Coordination of Care Note: Important/Relevant PMH/PSH: Alcohol use disorder with recent diagnosis of cirrhosis w/ esophageal varices, type II DM, poorly controlled HTN, CKD, COPD, tobacco smoker 2-3 PPD. Hospital Course: HPI: Lazaro Villafana is a 52 year old male with alcohol use disorder with recent diagnosis of cirrhosis w/ esophageal varices who presents on transfer from OSH with hematemesis s/p EGD at OSH c/b esophageal laceration; MELD >?20. R-sided chest tube for hydropneumothorax. Admitted to [facility] SICU 04/14/18. 04/15/18: EGD showed 5cm esophageal laceration without active bleeding. 04/16/18: Right chest tube placed for effusion. 04/22/18: Extubated. 04/26/18: EGD: partial mucosal tear in mid esophagus. 04/27/18: Eesophagram showed persistent leak. 04/29/18: EGD 04/29: Esophageal stent successfully placed in Q3. Acute pulmonary insufficiency following non-thoracic surgery requiring intubation. Respiratory status improved with placement of CT to sxn. See Epic note for more details. Per discussion between Dr Jerry and Dr Soto the patient's care will be transitioned to Thoracic Surgery care, thoracic Surgery being primary team. Transferred to CVICU from SICU. 04/30-->TIPS A/P of Major Active Problems (excluding routine care and common problems): CV: SR. Off pressors. Resp: Intubated and sedated. After TIPS. OR today for R VATS. GI: Strict NPO, TPN. Cirrhosis. INR 1.5. POD 1 Esoph stent to be removed in 4 weeks. Heme:Cautious use of SQH given bedrest. Renal: Cr 1.1 Endo: Lantus 20 and SSI. ID: Hospital course c/b mediastinitis with fevers an purulent chest tube output on vancomycin/aztreonam/flagyl/diflucan. ID following. -->vats Epistaxis: ENT following-->Nasal packing with Surgicel fibrillar. Lines: L IJ triple lumen (04/27/18). To Do or to Watch: OR for VATS S/p TIPS--Portal Hypertension (Hcc) Hyperglycemia Alcoholic Cirrhosis (Hcc) Copd (Chronic Obstructive Pulmonary Disease) (Hcc) Esophageal Perforation Mild Protein-Calorie Malnutrition (Hcc) Hypernatremia Secondary Thrombocytopenia Acute Post-Operative Pain Acute Respiratory Insufficiency Consolidation of Right Lower Lobe of Lung (Hcc) Tobacco Abuse Mediastinitis Fever Leukocytosis Severe Protein-Calorie Malnutrition (Hcc) Delirium Due to General Medical Condition Hypotension Epistaxis Acute Respiratory Failure (Hcc) Type II Diabetes Mellitus (Hcc) History of Hypertension Hydropneumothorax Ckd (Chronic Kidney Disease) Gen: intubated and sedated. No distress Neck-No JVD CV-RRR Lungs-CTA /symmetric anteriorly Abd-soft and not distended s obv TTP Ext-WWP. Edema-2+ This patient has a high probability of sudden, clinically significant deterioration, which requires the highest level of preparedness to intervene urgently. I participated in the decision making and personally managed or directed the care plan, including medical problems that required my frequent assessment to treat or prevent imminent deterioration. I personally spent 30 minutes of critical care time treating the patient. Time devoted to any procedures I billed separately is not included. SIGNATURE: García Hodge MD DATE of SERVICE: 05/01/2018 TIME of SERVICE: 8:51 AM GASA + ALL Collected: 05/01/2018 Status: F Source: [place] FOR 8:19 AM [facility] USE ONLY REPOSITORY TYPE CODE TESTS RESULT OUT OF REFERENCE UNITS RANGE LAB PH 7.35-7.45 pH Low 7.29 LAB PCO2 34-46 mm Hg pCO2 42 LAB PO2 85-95 mm Hg pO2 High 205 LAB BE mmol/L Base Excess NEG 6 LAB HCO3 22-26 mmol/L Bicarbonate Low 20 LAB CO2CT 22.0-28.0 mmol/L CO2 Content Low 21 LAB O2HB 95-98 % Oxyhemoglobin, High Art. 99 LAB COHB 0-5.0 % Carboxyhemoglobin, 0.0 Art LAB MHGB 0.4-1.5 % Methemoglobin Low 0.1 LAB TEMP C Temperature, Body 37.0 LAB PHTC 7.35-7.45 pH, Temp Low Corrected 7.29 LAB PCO2T 34-46 mm Hg pCO2, Temp Correct 42 LAB PO2T mm Hg pO2, Temp Corrected 205 LAB NAB 135-146 mmol/L Sodium,Whole Bld 138 LAB KWB 3.5-5.0 mmol/L Potassium, Whole Bld 4.1 LAB HGBB 13.0-17.0 g/dL Low Hemoglobin,Total,A 7.9 CL LAB HCTB 39.0-51.0 % Hematocrit, Low ACL 25 LAB IC 1.08-1.30 mmol/L Calcium, Ion, WB 1.21 LAB GLB 60-105 mg/dL Glucose,Whole High Bld 151 LAB LACT 0.5-2.2 mmol/L Lactate 1.2 LAB ACBDTE Notify Date, Art [id number] LAB ACBTME Notify Time, Art Performed By: #### ALLBG #### [facility] [address] [place] [address] THROMBOGRAPH PANEL Collected: 05/01/2018 Status: F Source: [place] 8:12 AM [facility] REPOSITORY TYPE CODE TESTS RESULT OUT OF REFERENCE UNITS RANGE LAB RTEG 4.0-10.0 min R Value 5.1 LAB MATEG 51.0-69.0 mm Maximum High Amplitude 73.7 LAB DEGANG 47.0-74.0 deg Degree High Angle 76.0 LAB LY30 0.0-5.0 % Lysis Time 30 0.0 LAB CITEG Coagulation Index 3 Result Comment: (NOTE) Reference range: NEG 4 to 2 The Coagulation Index, a secondary parameter, is labeled by the adzing and boring machine helper as for research use only and is used per the adzing and boring machine helper's instructions. Its performance characteristics were determined by [facility]'s [facility] [place] in a manner consistent with CLIA requirements. This test has not been cleared by the U.S. Food and Drug Administration. LAB TEGINT Thrombograph Interp (NOTE) Result Comment: Performing Pathologist: Yasemin García Interpretation: Abnormal - see comment below. A thromboelastograph (TEG) study was performed using citrate-anticoagulated whole blood. The R value, a measure of coagulation function, is within the normal range. This indicates normal coagulation function. The Maximal Amplitude (MA), a measure of platelet function, is increased. This is indicative of platelet hyperfunction. The Angle, a measure of fibrinogen function, is increased. This is indicative of increased fibrinogen concentration or function. The Ly30, a measure of fibrinolysis function, is normal. This is indicative of normal fibrinolytic function. The Coagulation Index (CI), a measure of hemostasis function, is increased. The CI is a calculated parameter based on the other TEG results. This is indicative of increased hemostasis function. Performed By: #### TEGPNP #### [facility] [address] [place], [place] [address] THROMBOGRAPH HEPASE Collected: 05/01/2018 Status: F Source: [place] 8:12 AM [facility] REPOSITORY TYPE CODE TESTS RESULT OUT OF REFERENCE UNITS RANGE LAB RTEGH 4.0-10.0 min R Value (Hep) 5.7 LAB MATEGH 51.0-69.0 mm Maximum High Amplit (Hep) 73.0 LAB DEGANH 47.0-74.0 deg Degree High Angle (Hep) 76.4 LAB LY30H 0.0-5.0 % Lysis Time 30 (Hep) 0.0 LAB CITEGH Coagulation Ind(Hep) 3 Result Comment: (NOTE) Reference Range: NEG 4 to 2 The Coagulation Index, a secondary parameter, is labeled by the adzing and boring machine helper as for research use only and is used per the adzing and boring machine helper's instructions. Its performance characteristics were determined by [facility]'s Dave [facility] Pathology and Laboratory [facility] [place] in a manner consistent with CLIA requirements. This test has not been cleared by the U.S. Food and Drug Administration. LAB TEGINH Thrombograph Int(Hep) (NOTE) Result Comment: Performing Pathologist: Yasemin García Interpretation: Abnormal - see comment below. A thromboelastograph (TEG) study was performed using citrate-anticoagulated whole blood treated with heparinase to neutralize a heparin effect. The R value, a measure of coagulation function, is within the normal range. This indicates normal coagulation function. The Maximal Amplitude (MA), a measure of platelet function, is increased. This is indicative of platelet hyperfunction. The Angle, a measure of fibrinogen function, is increased. This is indicative of increased fibrinogen concentration or function. The Ly30, a measure of fibrinolysis function, is normal. This is indicative of normal fibrinolytic function. The Coagulation Index (CI), a measure of hemostasis function, is increased. The CI is a calculated parameter based on the other TEG results. This is indicative of increased hemostasis function. Performed By: #### TEGHPP #### [facility] [address] [place], [place] [address] GASA + ALL Collected: 05/01/2018 Status: F Source: [place] FOR 5:26 AM [facility] USE ONLY REPOSITORY TYPE CODE TESTS RESULT OUT OF REFERENCE UNITS RANGE LAB PH 7.35-7.45 pH 7.40 LAB PCO2 34-46 mm Hg pCO2 Low 31 LAB PO2 85-95 mm Hg pO2 High 137 LAB BE mmol/L Base Excess NEG 4 LAB HCO3 22-26 mmol/L Bicarbonate Low 19 LAB CO2CT 22.0-28.0 mmol/L CO2 Content Low 20 LAB O2HB 95-98 % Oxyhemoglobin, Art. 97 LAB COHB 0-5.0 % Carboxyhemoglobin,A 1.6 rt LAB MHGB 0.4-1.5 % Methemoglobin 0.5 LAB TEMP C Temperature, Body 37.0 LAB PHTC 7.35-7.45 pH, Temp Corrected 7.40 LAB PCO2T 34-46 mm Hg pCO2, Temp Low Correct 31 LAB PO2T mm Hg pO2, Temp Corrected 137 LAB NAB 135-146 mmol/L Sodium,Whole Bld 136 LAB KWB 3.5-5.0 mmol/L Potassium, Whole Bld 4.0 LAB HGBB 13.0-17.0 g/dL Low Hemoglobin,Total,AC 8.4 L LAB HCTB 39.0-51.0 % Hematocrit, ACL Low 26 LAB IC 1.08-1.30 mmol/L Calcium, Ion, WB 1.12 LAB GLB 60-105 mg/dL Glucose,Whole Bld High 181 LAB LACT 0.5-2.2 mmol/L Lactate 1.2 Performed By: #### ALLBG #### [facility] [address] [place], [place] [address] GASA + ALL Collected: 05/01/2018 Status: F Source: [place] FOR 2:02 AM [facility] RADIANCE USE ONLY REPOSITORY TYPE CODE TESTS RESULT OUT OF REFERENCE UNITS RANGE LAB PH 7.35-7.45 pH 7.39 LAB PCO2 34-46 mm Hg pCO2 Low 33 LAB PO2 85-95 mm Hg pO2 High 134 LAB BE mmol/L Base Excess NEG 5 LAB HCO3 22-26 mmol/L Bicarbonate Low 19 LAB CO2CT 22.0-28.0 mmol/L CO2 Content Low 20 LAB O2HB 95-98 % Oxyhemoglobin, Art. 97 LAB COHB 0-5.0 % Carboxyhemoglobin,A 1.6 rt LAB MHGB 0.4-1.5 % Methemoglobin Low 0.3 LAB TEMP C Temperature, Body 37.0 LAB PHTC 7.35-7.45 pH, Temp Corrected 7.39 LAB PCO2T 34-46 mm Hg pCO2, Temp Low Correct 33 LAB PO2T mm Hg pO2, Temp Corrected 134 LAB NAB 135-146 mmol/L Sodium,Whole Bld 138 LAB KWB 3.5-5.0 mmol/L Potassium, Whole Bld 4.3 LAB HGBB 13.0-17.0 g/dL Low Hemoglobin,Total,AC 8.6 L LAB HCTB 39.0-51.0 % Hematocrit, ACL Low 27 LAB IC 1.08-1.30 mmol/L Calcium, Ion, WB 1.14 LAB GLB 60-105 mg/dL Glucose,Whole Bld High 204 LAB LACT 0.5-2.2 mmol/L Lactate 1.1 Performed By: #### ALLBG #### [facility] [address] [place], [place] [address] COMP METABOLIC PANEL Collected: 05/01/2018 Status: F Source: [place] 1:56 AM [facility] REPOSITORY TYPE CODE TESTS RESULT OUT OF REFERENCE UNITS RANGE LAB TP 6.3-8.0 g/dL Protein, Total 6.5 LAB ALB 3.9-4.9 g/dL Low Albumin 1.9 LAB CA 8.5-10.2 mg/dL Low Calcium, Total 7.3 LAB TBIL 0.2-1.3 mg/dL Bilirubin, Total 0.5 LAB ALKP 38-113 U/L Alkaline Phosphatase 61 LAB AST 14-40 U/L AST High 55 LAB GLU 74-99 mg/dL Glucose High 207 Result Comment: The [place] [employer] Association (ADA) provides guidance for cutoff values for fasting glucose and random glucose. The ADA defines fasting as no caloric intake for at least 8 hours. Fas ting plasma glucose results between 100 to 125 mg/dL indicate increased risk for diabetes (prediabetes). Fasting plasma glucose results greater than or equal to 126 mg/dL meet the criteria for diagnosis of diabetes. In the absence of unequivocal hyperglycemia, results should be confirmed by repeat testing. In a patient with classic symptoms of hyperglycemia or hyperglycemic crisis, random plasma glucose results greater than or equal to 200 mg/dL meet the criteria for diagnosis of diabetes. Reference: Standards of Medical Care in Diabetes 2016, [place] [employer] Association. Diabetes Care. 2016.39(Suppl 1). LAB BUN 9-24 mg/dL BUN High 39 LAB CRET 0.73-1.22 mg/dL Creatinine 1.10 LAB NA 136-144 mmol/L Sodium 137 LAB K 3.7-5.1 mmol/L Potassium 4.5 LAB CL 97-105 mmol/L Chloride High 106 LAB CO2 22-30 mmol/L Low CO2 19 LAB AGAP 9-18 mmol/L Anion Gap 12 LAB ALT 10-54 U/L ALT 23 LAB GFRAA eGFR- Amer. >60 LAB GFRNAA . eGFR-All Other Races >60 Result Comment: eGFR (Estimated GFR) Units of measure: mL/min/1.73 meters squared eGFR is derived from the reexpressed MDRD Study equation using the following parameters: serum creatinine, age, gender and race. The creatinine assay has been calibrated to be traceable to IDMS. An eGFR <60 mL/min/1.73m2 for >3 months is consistent with chronic kidney disease. Refer to KDOQI guidelines for clinical interpretation. In patients with unstable renal function, e.g. those with acute kidney injury, the eGFR may not accurately reflect actual GFR. Performed By: #### CMP, MG1, PHOS #### [facility] [address] [place], [place] [address] MAGNESIUM Collected: 05/01/2018 Status: F Source: [place] 1:[address] [facility] REPOSITORY TYPE CODE TESTS RESULT OUT OF REFERENCE UNITS RANGE LAB MG 1.7-2.3 mg/dL Magnesium 1.7 Performed By: #### CMP, MG1, PHOS #### [facility] [place] [place], [place] [address] PHOSPHORUS Collected: 05/01/2018 Status: F Source: [place] 1:56 AM [facility] REPOSITORY TYPE CODE TESTS RESULT OUT OF REFERENCE UNITS RANGE LAB PHOS 2.7-4.8 mg/dL Phosphorus 3.3 Performed By: #### CMP, MG1, PHOS #### [facility] [address] [place], [place] [address] STAPH AUREUS PCR Collected: 05/01/2018 Status: F Source: [place] 1:55 AM [facility] REPOSITORY TYPE CODE TESTS RESULT OUT OF REFERENCE UNITS RANGE LAB SASRC Nasal S aureus Spec Source LAB MRSRES Negative for MRSA MRSA by PCR. PCR LAB SARES Negative for Staph Staphylococcus aureus PCR aureus by PCR. Performed By: #### SAPCR #### [facility] [address] [place] [address] XR CHEST 1V FRONTAL Observed: 05/01/2018 Status: F Source: [facility] 1:01 AM [facility] REPOSITORY * * *Final Report* * * DATE OF EXAM: May 01 2018 1:01AM JIX [id number] - XR CHEST 1V FRONTAL PORT / PROCEDURE REASON: Acute respiratory illness * * * * Physician Interpretation * * * * CHEST RADIOGRAPH (PORTABLE SINGLE VIEW AP) Exam Date/Time: 05/01/2018 1:01 AM Indications: Acute respiratory illness MQ: [id number] Comparison: 1 day earlier RESULTS: See Impression. IMPRESSION: Lines, Tubes, and Devices: Stable support lines and tubes. Lungs and Pleura: Right effusion and overlying opacity unchanged. No pneumothorax. Cardiomediastinal silhouette: Stable cardiac silhouette. Steel Turner: NIDHI Transcribe Date/Time: May 01 2018 7:58A Dictated by : JUANCARLOS AHUMADA MD This examination was interpreted and the report reviewed and electronically signed by: JUANCARLOS AHUMADA MD on May 01 2018 7:59AM EST [id number] OPERATIVE NO Observed: 05/01/2018 Status: COMPLETED Source: [place] 12:00 AM [facility] REPOSITORY HNO ID: [id number] Author: Garrison Gr Service: Thoracic Surgery Author Type: Physician Type: Operative Report Filed: 05/02/2018 10:19 AM Note Text: [facility] - Cardiothoracic Operative Report [address] [address] [place] LAZARO V[place]AFA[place] : 1965 AGE: 52. SEX: M PATIENT TYPE: IN HOSP SVC: [place] LOCATION: [id number] ATTENDING PHYSICIAN: GOPAL NUMBER: [id number] DATE OF SURGERY/PROCEDURE: 05/01/2018 INCISION/PROCEDURE START TIME: 08:41. INCISION CLOSE/PROCEDURE END TIME: 01:48 p.m. PREOPERATIVE DIAGNOSIS: 1. Mid esophageal perforation. 2. Extensive right pleural empyema. 3. 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 POSTOPERATIVE DIAGNOSIS: Same SURGEON: Garrison Gr M.D. COAL HAULER OPERATOR: 1. Dakotah Jade M.D. 2. Javier Booker M.D. SURGERY/PROCEDURE: 1. Right thoracoscopy. 2. Right posterolateral thoracotomy. 3. Complete decortication of the right pleural space. 4. Esophageal mobilization. 5. Primary repair of the esophagus. 6. Intercostal muscle flap based on intercostal vascular pedicle. 7. Flexible endoscopy. 8. Flexible bronchoscopy. ANESTHESIA: General endotracheal. OPERATIVE INDICATIONS: The patient is a 52-year-old male, who has had a complex hospital course, who has known cirrhosis secondary to alcohol abuse. He has known ascites. He presented to an outside hospital with massive upper GI bleed from esophageal varices. He initially had a Sengstaken-Tony tube placed, which tamponade the bleeding. Subsequently, he underwent multiple endoscopies and was noted to have a contained perforation of the mid esophagus that at some point during the last 2 weeks became a full thickness perforation likely went unrecognized because of the fact that the perforation was covered by a clot every time he underwent endoscopy and the fact that he had a gastric decompression this whole time, which prevented any extensive leakage from the perforation into right pleural space. However, he did have contamination of the right pleural space with extensive empyema. He had a chest tube placed, which at this point is draining bile. He underwent endoscopy and stent placement across the perforation, which clearly is nonocclusive due to continuous drainage of bile in soilage of his pleural space. Due to his extensive comorbidity, undrained pleural space, or incompletely drained pleural space and ongoing perforation, I had an extensive discussion with the family, the ICU, the Medical Team, the Hepatology team, and the patient's family that given his high morbidity and mortality from liver failure ongoing undrained infection and perforation is very likely to be the cause of his mortality. If we have to have any chance of salvaging this situation, he needs to undergo decortication of his right pleural space with possible control of the esophageal perforation. Given his extensive portal hypertension, he underwent an urgent TIPS procedure on April 30, 2018 in preparation for thoracic exploration on May 01, 2018. DESCRIPTION OF PROCEDURE: After obtaining informed consent, the patient was brought to the operating room and placed supine on the table. Time-out was performed in the presence of Anesthesia team, Surgical team, and Operating room staff. He was already intubated. At this time, a right-sided bronchial garcia was placed. A femoral venous cordis was placed. He had a central line and peripheral IVs. In addition, radial line was already present. He was then positioned in left lateral decubitus position. The right chest was prepped and draped in the usual fashion. He did not have an NG or OG tubes because of a recent nosebleed. Next, a flexible endoscopy was performed and subsequently the esophageal perforation was noted. The stent had already migrated into the stomach and was left as such. Next, the pleural space was accessed in the sixth intercostal space. Dense adhesions were noted, therefore a posterolateral sixth space thoracotomy was created on the way in a well vascularized intercostal muscle flap was taken and preserved. Next, retractors were placed. The pleural space had complete pleural symphysis secondary to extensive infection. There were bile abscesses all over the pleural space, which were opened up and drained. Extensive decortication of the lung was performed, of course as expected, there was continuous hemorrhage from every pleural space without any evidence of clot formation, therefore the patient was kept on continuous transfusion of packed red blood cells, FFP, and platelets. This allowed us to perform the decortication by intermittently packing and unpacking the chest and various areas and to decorticate the areas sequentially. Anterior, posterior, lateral, apical, and diaphragmatic surfaces were all freed up. The fissures were opened up. A large abscess cavity was noted over the esophagus, which was completely drained and evacuated. The pleura was approximately 2 cm thick and was decorticated at the end. All three lobes were completely free. All the infected material was washed out and evacuated and the lung was completely free and inflated well. At this point, the attention was focused onto the esophagus. The inferior pulmonary ligament was divided. A large perforation was noted in the mid esophagus just adjacent to the right mainstem bronchus. Due to the extensive varices in the esophagus, I decided not to mobilize the esophagus circumferentially; however, mobilized it enough so that the edges of the esophagus were completely free and were able to be lifted up. Next, the pleura was opened over the esophagus. The muscular layer of the esophagus was opened up superiorly and inferiorly to the perforation to expose edges of the mucosa. The mucosal edges were somewhat healthy; however, multiple areas of point bleeding were noted, which was likely related to his portal hypertension. I therefore decided to not debride the mucosa at all; however, using white sutures, I approximated the mucosa using 3-0 PDS sutures placed in an interrupted fashion. Endoscopy was performed and an NG tube was placed through the stent into the stomach across the area of the perforation before starting the repair. Next, after complete approximation of the mucosa, we approximated the muscular layer using again interrupted 3-0 PDS sutures. At this point, the repeat endoscopy was performed. The stomach and the esophagus were insufflated under water and no air leak was noted from the area of the repair. All necrotic tissue had already been debrided. Next, we sewed the intercostal muscle flap in the longitudinal fashion over the area of the repair since I had not mobilized the esophagus circumferentially. The muscle was not wrapped around the repair; however, was sewn over the area of the repaired using 3-0 PDS sutures. Again, airtight repair already been achieved. At this point, the chest cavity was irrigated with 4 L of normal saline. We had spent approximately 3 hours in performing the decortication and lysing the adhesions and another hours were spent performing the esophageal mobilization and repair. No lung injury was noted. No bleeding was noted from the lung; however, all dissection sites were completely nonhemostatic and there was no formation of clot. At this point, the chest was packed. Further transfusion of coagulation factors were administered. Hemostatic agents were instilled in the pleural space and the chest was kept packed. At this point, we were able to achieve complete hemostasis. No surgical bleeding and no oozing were noted from any dissection site. Again, the pleural surfaces were completely examined at all dissection sites and excellent bleeding control was noted. At this point, a 28-Iranian chest tube was placed anteroapically. A second 28-Iranian chest tube was placed posteroapically under the intercostal muscle flap and a Anahi drain was placed anterior to the esophagus and front of the intercostal muscle flap in the paraesophageal gutter. Next, the lung was inflated and noted to fill up the chest. The thoracotomy was closed in layers using #2 Vicryl for rib approximation followed by #1 Vicryl for the muscle closure followed by 2-0 and 4-0 Vicryl. Sterile dressings were applied. Chest tube was secured to the skin. The patient was then transferred to the supine position. The bronchial garcia was removed. Flexible bronchoscopy was performed. Thick secretions were suctioned out from both lungs. The endoscope was then removed. The NG tube was secured to the septum of the nose, since it could not be bridled due to the fact that one side of the nose was already packed. No bleeding was noted from the esophageal repair or from the NG tube insertion site. The chest tubes were relatively dry at the end of the procedure. He was then transferred to the ICU in a stable, but guarded condition. During the procedure, the patient received 4 units of packed red blood cell, 4 packs of platelets, and 4 units of FFP. PARTICIPATION: I was present for the whole procedure. Dr. Dakotah Jade was my first dyer and Dr. Javier Booker was my second mail handler assistant. LOG ID: [id number]. ESTIMATED BLOOD LOSS: 500 mL. COUNTS: All counts were correct. COMPLICATIONS: None. CONDITION: Guarded. DISPOSITION: ICU. Garrison Gr M.D. UA:[id number] /[id number] cc: SURGICAL PATHOLOGY Observed: 05/01/2018 Status: F Source: [place] [address]:[address] [facility] REPOSITORY Specimen originated from [facility] Specimen #: [id number] Submitting Physician: GARRISON GR MD FINAL DIAGNOSIS Right pleural tissue, biopsy - Organizing acute pleuritis with purulent exudates, consistent with empyema. WILLI/srj 05/03/2018 COMMENT A GMS stain performed for the evaluation of fungal organisms is negative. Bk Schroeder M.D. (Electronic Signature) SPECIMEN SUBMITTED A: RIGHT PLEURAL TISSUE CLINICAL DATA PLEURAL EFFUSION GROSS DESCRIPTION A. Received in formalin labeled as right pleural tissue are multiple fragments of hugo-white fibrous and friable soft tissue and hemorrhagic material aggregating to 11.0 x 3.5 x 3.5 cm. Sectioning reveals a hugo-white fibrous cut surface. Communications And Signals Supervisor cross sections are submitted in two cassettes. TALENT ACQUISITION RELATIONSHIP MANAGER/dss 05/02/2018 Gross examination performed at [facility], [address] [place] [address] Date of Report: 05/05/2018 Date of Procedure: 05/01/2018 Date of Receipt: 05/02/2018 Submitted by: GARRISON GR MD Location: [facility] Diagnostic interpretation performed at [facility], [address] [place] [address]. GASA + ALL Collected: 04/30/2018 Status: F Source: [place] FOR 11:30 PM [facility] RADIANCE USE ONLY REPOSITORY TYPE CODE TESTS RESULT OUT OF REFERENCE UNITS RANGE LAB PH 7.35-7.45 pH 7.39 LAB PCO2 34-46 mm Hg pCO2 Low 32 LAB PO2 85-95 mm Hg pO2 High 134 LAB BE mmol/L Base Excess NEG 5 LAB HCO3 22-26 mmol/L Bicarbonate Low 19 LAB CO2CT 22.0-28.0 mmol/L CO2 Content Low 20 LAB O2HB 95-98 % Oxyhemoglobin, Art. 98 LAB COHB 0-5.0 % Carboxyhemoglobin,A 1.5 rt LAB MHGB 0.4-1.5 % Methemoglobin Low 0.3 LAB TEMP C Temperature, Body 37.0 LAB PHTC 7.35-7.45 pH, Temp Corrected 7.39 LAB PCO2T 34-46 mm Hg pCO2, Temp Low Correct 32 LAB PO2T mm Hg pO2, Temp Corrected 134 LAB NAB 135-146 mmol/L Sodium,Whole Bld 139 LAB KWB 3.5-5.0 mmol/L Potassium, Whole Bld 3.9 LAB HGBB 13.0-17.0 g/dL Low Hemoglobin,Total,AC 8.3 L LAB HCTB 39.0-51.0 % Hematocrit, ACL Low 26 LAB IC 1.08-1.30 mmol/L Calcium, Ion, WB 1.09 LAB GLB 60-105 mg/dL Glucose,Whole Bld High 176 LAB LACT 0.5-2.2 mmol/L Lactate 1.0 Performed By: #### ALLBG #### [facility] [address] [place], [place] [address] GASA + ALL Collected: 04/30/2018 Status: F Source: [place] FOR 8:29 PM [facility] RADIANCE USE ONLY REPOSITORY TYPE CODE TESTS RESULT OUT OF REFERENCE UNITS RANGE LAB PH 7.35-7.45 pH Low 7.23 LAB PCO2 34-46 mm Hg pCO2 High 50 LAB PO2 85-95 mm Hg pO2 85 LAB BE mmol/L Base Excess NEG 7 LAB HCO3 22-26 mmol/L Bicarbonate Low 20 LAB CO2CT 22.0-28.0 mmol/L CO2 Content 22 LAB O2HB 95-98 % Oxyhemoglobin, Art. 95 LAB COHB 0-5.0 % Carboxyhemoglobin,A 0.6 rt LAB MHGB 0.4-1.5 % Methemoglobin Low 0.3 LAB TEMP C Temperature, Body 37.0 LAB PHTC 7.35-7.45 pH, Temp Low Corrected 7.23 LAB PCO2T 34-46 mm Hg pCO2, Temp High Correct 50 LAB PO2T mm Hg pO2, Temp Corrected 85 LAB NAB 135-146 mmol/L Sodium,Whole Bld 139 LAB KWB 3.5-5.0 mmol/L Potassium, Whole Bld 4.1 LAB HGBB 13.0-17.0 g/dL Low Hemoglobin,Total,AC 9.1 L LAB HCTB 39.0-51.0 % Hematocrit, ACL Low 28 LAB IC 1.08-1.30 mmol/L Calcium, Ion, WB 1.12 LAB GLB 60-105 mg/dL Glucose,Whole Bld High 137 LAB LACT 0.5-2.2 mmol/L Lactate 0.5 Performed By: #### ALLBG #### [facility] [address] [place] [address] ANES POST Observed: 04/30/2018 Status: COMPLETED Source: [place] 7:50 PM [facility] REPOSITORY HNO ID: [id number] Author: Gricelda Weller Service: Anesthesiology Author Type: Anesthesiologist Type: Anesthesia PostOp Filed: 04/30/2018 7:52 PM Note Text: POST ANESTHESIA EVALUATION NOTE SERVICE DATE: 04/30/2018 SERVICE TIME: 7:50 PM : 1965 Vitals: 04/30/18 0750 04/30/18 0810 04/30/18 0850 04/30/18 1500 Temp: (!) 38 ?C (100.4 ?F) (!) 38.3 ?C (100.9 ?F) 37.8 ?C (100 ?F) (!) 38.2 ?C (100.8 ?F) 04/30/18 1550 04/30/18 1610 04/30/18 1630 04/30/18 1650 Arterial BP 1: 147/62 156/65 139/67 155/64 BP: 04/30/18 1610 04/30/18 1630 04/30/18 1641 04/30/18 1650 Pulse: 86 96 92 95 04/30/18 1610 04/30/18 1630 04/30/18 1641 04/30/18 1650 Resp: 27 20 23 22 04/30/18 1610 04/30/18 1630 04/30/18 1641 01/12/19 1650 SpO2: 95% 93% 94% 95% Validated Vital Signs: HR: 94; BP: 133/70; RR: 16; SpO2%: 99; Temperature: 36.3 POST ANES STATUS: PACU/ICU Patient Condition: Guarded Neurological Status: On intravenous sedation. Pulmonary Status: On invasive mechanical ventilation. Airway Control: Intubated on mechanical ventilation. Cardiovascular Status: Guarded Pain: Adequately controlled Postoperative Nausea/Vomiting: No significant post operative nausea or vomiting Postoperative Hydration Status: Adequate. Intra-Operative Events: No Significant Anesthesia Events Anesthetic Complications: None Recommendation: Continue current plan of care and Further care per PACU/ICU/Floor team Other Remarks: SIGNATURE: Gricelda Weller MD PATIENT NAME: Lazaro Villafana DATE: April 30, 2018 TIME: 7:50 PM PAGER/CONTACT #: [phone] HISTORY PHYSICAL Observed: 04/30/2018 Status: COMPLETED Source: [place] 7:32 PM [facility] REPOSITORY [facility] ID: [id number] Author: Radha Queen MD (Fel) Service: Radiology Author Type: Fellow Type: HANDP Filed: 04/30/2018 7:33 PM Note Text: UPDATED PROCEDURAL SEDATION HISTORY AND PHYSICAL EXAMINATION SERVICE DATE: 04/30/2018 SERVICE TIME: 7:32 PM PHYSICAL EXAM MUST BE COMPLETED ON ADMISSION PROCEDURE SCHEDULED: Procedure(s): INSERT TIPS SHUNT STENT (Right) RADIOLOGY ORDER PLACED: The History and Physical (completed in the past 30 days) has been reviewed and the patient has been examined. The contents accurately reflect the patient's condition with the following additions or revisions since the HANDP was completed. ASA Class: ASA Class:: Patient with mild systemic disease Examination indicates no changes. AIRWAY: Airway Visualization of Uvula: Yes Mouth opening greater than 2 fingerbreadths: Yes Neck Full Range of Motion: Yes LUNGS: Lungs clear to auscultation, Good diaphragmatic excursion CARDIAC: Normal S1 and S2; no rubs, murmurs, or gallops Provisional Diagnosis/Treatment Plan: cirrhosis, GI bleeding, esophageal laceration; TIPS SEDATION GOAL: Anesthesia This HANDP can be found in the Electronic Medical Record dated 04/14/2018. SIGNATURE: Radha Queen MD PATIENT NAME: Lazaro Villafana DATE: April 30, 2018 TIME: 7:32 PM PAGER: [phone] IR TIPS PORTOCAVAL Observed: 04/30/2018 Status: F Source: [place] 7:[address] [facility] REPOSITORY * * *Final Report* * * DATE OF EXAM: Apr 30 2018 7:28PM [facility] 0806 - IR TIPS PORTOCAVAL SHUNT / PROCEDURE REASON: Portal hypertension (HCC) * * * * Physician Interpretation * * * * PROCEDURE: TRANSJUGULAR INTRAHEPATIC PORTOSYSTEMIC SHUNT HISTORY: 52-year-old male with history of alcohol abuse, cirrhosis, portal hypertension, presenting with the melanoma and hematemesis, Azra tube placement resulting in partial thickness esophageal perforation. Thoracic surgery is scheduled, preoperative TIPS procedure to decrease the bleeding from esophageal varices is required. CONSENT: Risks, benefits, treatment options, potential complications and personnel to be involved were discussed (including the risks of radiation exposure, contrast and anesthesia administration, and any equipment needed for the procedure to ensure best possible outcome) with the patient and all questions were answered and consent was obtained prior to procedure. MEDICATION RECONCILIATION: The patient's medications and allergies were reviewed in the electronic medical record and reconciled to the proposed procedure/treatment. STEVENSON-PROCEDURE DISCUSSION: The appropriate elements of the pre-procedure discussion, safety check list and sign-out were performed. TIME OUT: A time out was performed immediately prior to procedure start with the nursing, and interventional team, correctly identifying the name, date of , procedure, anatomy (including marking of site and side if applicable), patient position, procedure consent form, relevant diagnostic and radiology test results, antibiotic administration if applicable, safety precautions, and procedure-specific equipment needs. Start of procedure: 17:49 End of procedure: 19:28 Patient position: Supine Anesthesia: general anesthesia Intra-service time (monitoring for moderate sedation): 0 minutes Patient monitoring: I personally supervised and directed an independent trained observer who assisted in monitoring the patient?s level of consciousness and physiological status throughout the procedure. Local anesthesia: 1 % lidocaine ANTIBIOTICS: None Antibiotic infusion start time: N/A CONTRAST DOSE: 70 cc of OMNIPAQUE 240 was injected into the venous system during the procedure. 120 cc CO2 was injected into the venous system during the procedure. IMAGE GUIDANCE: Fluoroscopic and sonographic guidance was used. Ultrasound demonstrated patency of the right internal jugular vein without filling defects. Access was obtained under direct sonographic visualization. A sonographic image of the vessel was obtained and placed into the permanent archive for documentation. FLUOROSCOPIC RADIATION SUMMARY: Plane A, Air Kerma: 308.0 mGy Dose Area Product (DAP): 735532.0 mGy*cm2 Fluoro Time: 30:42 min:sec Radiation dose exceed 5 Gy: No If radiation dose exceeded 5 Gy, was counseling and instructional brochure provided: N/A ACCESS: right internal jugular vein ACCESS HEMOSTASIS: Manual Compression. TECHNIQUE: The patient was prepped and draped using all elements of maximal sterile barrier technique (cap, mask, sterile gown, sterile gloves, a large sterile sheet, hand hygiene and cutaneous antisepsis), sterile ultrasound gel and sterile ultrasound probe covers. After local anesthesia, access was obtained into right internal jugular vein. A 5 Iranian sheath was placed. A pigtail catheter was placed and the right atrium and ventricle pressure were measured. The 5 Iranian vascular sheath was exchanged for a 10 Iranian sheath. Using a 5F MPB catheter through the TIPS sheath in conjunction with a 0.035 glide wire, right hepatic vein was accessed and hepatic venogram was obtained. Free and wedge hepatic pressures were obtained. CO2 portogram was obtained in AP and TURNER projections. The 5F MPB catheter was removed over an Amplatz stiff wire and the R?gisselle-Uchida needle and sheath were advanced into the TIPS sheath. Using the CO2 portogram as guidance, access was obtained between right hepatic vein and middle portal vein using the needle. Location was verified using a small amount of contrast. 0.035 angled glide wire was used to gain access into the left the portal vein. The needle was removed and 5F MPB catheter advanced into the main portal vein. Direct portal pressure and portogram were obtained. Tract was dilated over a stiff Amplatz wire using an 8 mm balloon. Marker pigtail was used during the portal venogram and measurement of the tract was estimated. Viatorr stent graft was deployed. Pressures were obtained between portal vein and right atrium. The Portoatiral gradient post TIPS was reduced from 18 mm Hg to 4 mm Hg. Portal venogram was repeated. The sheaths were removed and hemostasis obtained by direct manual compression. Sterile dressing was applied. RESULT: Pre TIPS pressures: Right atrium 9 mm Hg. Right ventricle 17 mm Hg. Free Hepatic 9 mm Hg. Wedge Hepatic 27 mm Hg. Direct portal 27 mm Hg. Corrected sinusoidal gradient was calculated to be 18 mm Hg. Portogram demonstrated antegrade flow of the portal vein with filling of esophageal varices. INDWELLING DEVICE: A 8-10 mm x 6/2 cm [place] Viatorr stent graft was deployed between middle portal vein and right hepatic vein and dilated initially with an 8 mm balloon achieving an inadequate gradient decrease and then with a 9 mm balloon. Post TIPS pressures: Right atrium 12 mm Hg. Portal 16 mm Hg. Portoatrial gradient was calculated to be 4 mm Hg. Post TIPS portogram demonstrated antegrade flow through the TIPS without filling of varices. The patient tolerated the procedure well. There were no significant complications and no other complications during the procedure. CONCLUSION: The patient was comfortable and was transferred to the transferred to the PACU in stable condition. Estimated Blood Loss: Minimal Number and Type of Removed Specimens: 0 . ATTENDING RADIOLOGIST: Stanislav Nunez M.D. COAL HAULER OPERATOR: Radha Queen M.D., Jose Murphy MD The procedure was performed by the: the mail handler assistant, and the attending radiologist personally supervised the entire procedure. The attending radiologist performed the following procedural activities: Assistance with access to the main portal vein, and the directly supervised Entire procedure IMPRESSION: SUCCESSFUL TRANSJUGULAR JS-SYSTEMIC SHUNT. PATIENT WILL REQUIRE HEPATIC VASCULAR/TIPS ULTRASOUND FOR BASELINE VELOCITIES IN 4-5 DAYS. PORTOATIRAL GRADIENT WAS REDUCED FROM 18 MM HG TO 4 MM HG. Steel Turner: PSCB Transcribe Date/Time: Apr 30 2018 7:52P Dictated by : RADHA QUEEN MD This examination was interpreted and the report reviewed and electronically signed by: STANISLAV NUNEZ MD on Apr 30 2018 10:19PM YASSINE COSTA MG Collected: 04/30/2018 Status: F Source: [place] FOR 6:12 PM [facility] USE ONLY REPOSITORY TYPE CODE TESTS RESULT OUT OF REFERENCE UNITS RANGE LAB PH 7.35-7.45 pH 7.36 LAB PCO2 34-46 mm Hg pCO2 37 LAB PO2 85-95 mm Hg pO2 High 100 LAB BE mmol/L Base Excess NEG 4 LAB HCO3 22-26 mmol/L Bicarbonate Low 20 LAB CO2CT 22.0-28.0 mmol/L CO2 Content Low 21 LAB O2HB 95-98 % Oxyhemoglobin, Art. 95 LAB COHB 0-5.0 % Carboxyhemoglobin,A 2.2 rt LAB MHGB 0.4-1.5 % Methemoglobin 0.7 LAB TEMP C Temperature, Body 37.0 LAB PHTC 7.35-7.45 pH, Temp Corrected 7.36 LAB PCO2T 34-46 mm Hg pCO2, Temp Correct 37 LAB PO2T mm Hg pO2, Temp Corrected 100 LAB NAB 135-146 mmol/L Sodium,Whole Bld 138 LAB KWB 3.5-5.0 mmol/L Potassium, Whole Bld 4.0 LAB HGBB 13.0-17.0 g/dL Low Hemoglobin,Total,AC 8.9 L LAB HCTB 39.0-51.0 % Hematocrit, ACL Low 28 LAB IC 1.08-1.30 mmol/L Calcium, Ion, WB 1.12 LAB GLB 60-105 mg/dL Glucose,Whole Bld High 134 LAB LACT 0.5-2.2 mmol/L Lactate 0.9 LAB MGI 0.43-0.66 mmol/L Magnesium, Ion, WB 0.46 Performed By: #### ALLMG #### [facility] [address] [place] [id number] PT ED Observed: 04/30/2018 Status: COMPLETED Source: [place] 5:05 PM [facility] REPOSITORY HNO ID: [id number] Author: Sana (Rn) BLAYNE Rasheed Service: (none) Author Type: Registered Nurse Type: Patient Education Filed: 04/30/2018 5:07 PM Note Text: AMBULATORY PATIENT EDUCATION TOPIC: TIPS READINESS TO LEARN COGNITIVE ABILITY: Alert and oriented MOTIVATION TO LEARN: Interested FAMILY SUPPORT: Unable to assess - Family not present INSTRUCTION PROVIDED TO: Patient PATIENT LEARNS BEST BY: Individual Instruction Verbal Instruction FACTORS AFFECTING LEARNING: None PHYSICAL LIMITATIONS AFFECTING LEARNING: None LEARNING RESPONSE DIAGNOSIS: Portal HTN METHOD OF INSTRUCTION: Individual instruction Verbal instruction PATIENT / FAMILY RESPONSE: Information received as demonstrated by interest and questions FOLLOW-UP PLAN: Recommend - Recommend continued instruction and follow up as directed SUPPLEMENTAL MATERIAL: None REFERRAL (RECOMMENDATION): None Electronically Signed By: Sana Rasheed RN In Department: [id number] CONSULT Observed: 04/30/2018 Status: COMPLETED Source: [place] 2:24 PM [facility] REPOSITORY HNO ID: [id number] Author: Stanislav Nunez Service: Radiology Author Type: Physician Type: Consults Filed: 04/30/2018 7:46 PM Note Text: INTERVENTIONAL RADIOLOGY CONSULT NOTE Subjective Reason for Referral: Evaluation for TIPS Indications for Procedure: bleeding esophageal varices. Prophylaxis for decortication in a patient with pulmonary hypertension. Pertinent History: Lazaro Villafana is a 52 year old yo male w PMH of Hx of type II DM, HTN, CKD, COPD, 2-3 PPD, EtOH abuse, liver cirrhosis, presenteed to OSH with several day history of nausea, vomiting, melena, and hematemesis prompting tony tube placement at that time resulting in partial thickness esophageal perforation. Pt transferred here. 04/15 EGD showed 5cm esophageal laceration without active bleeding. 04/16 Right chest tube placed for effusion.04/26 EGD, well healing esophageal tear. 04/27 esophagram shows persistent leak. Thoracic surgery would like to proceed with decortication, would like pre-op TIPS to decrease bleeding from esophogeal varices. ALLERGIES Allergen Reactions - Ciprofloxacin Unknown - Penicillin Unknown Tolerating cefepime Objective Vitals: BP 136/74 Pulse 81 Temp 37.8 ?C (100 ?F) (Oral) Resp 22 Ht 177.8 cm (5' 10) Wt 107.5 kg (236 lb 15.9 oz) SpO2 97% BMI 34.01 kg/m? ASA Class: Physical Exam: Airway: -Airway- Visualization of Uvula: Yes -Mouth - Opening greater than 2 fingerbreadths: Yes - Incisor distance at least 3 finger breadths: Yes -Neck - Full Range of Motion: Yes - Hyoid-Mental distance at least 3 finger breadths: Yes - Uzyfyjs-gt-Tebjv distance at least 2 finger breadths: Yes Constitutional: Well appearing, alert, in no acute distress, well-hydrated, well nourished. Oropharynx: poor dentition, missing medial 4 upper teeth Neck: Supple, no adenopathy; thyroid symmetric, normal size, no bruits Back: not examined Chest: breathing comfortably. No increased WOB. Cardiovascular: NRRR Abdomen: Normal abdominal exam, Abdomen soft, non-tender. Bowel sounds normal. No masses, organomegaly Extremities: No deformities, edema, skin discoloration, clubbing or cyanosis. Good capillary refill. Peripheral Pulses: Normal Neuro: Oriented X 3 I concur with physical exam. In addition, the patient is moderately obese with mild hepatomegaly on exam. No JVD. Pertinent Labs: CBC, Coags, BMP, Mg, Phos Recent Labs 04/30/18 1111 04/30/18 0834 04/30/18 0451 04/30/18 0445 04/30/18 0005 04/29/18 0200 04/28/18 1236 04/28/18 0106 WBC -- -- -- 7.89 -- 7.44 -- -- -- 7.63 HB -- -- -- 8.0* -- 6.7* -- -- -- 7.8* HCT -- -- -- 25.0* -- 22.3* -- -- -- 25.5* PLT -- -- -- 134* -- 137* -- -- -- 145* INR -- -- -- -- -- 1.5* -- -- -- -- APTT -- -- -- -- -- 34.1* -- -- -- -- NA -- -- -- -- -- 141 -- 142 144 -- K -- -- -- -- -- 4.5 -- 4.6 4.9 -- CHLOR -- -- -- -- -- 111* -- 111* 113* -- CO2 -- -- -- -- -- 20* -- 21* 23 -- BUN -- -- -- -- -- 42* -- 39* 38* -- CREAT -- -- -- -- -- 1.25* -- 1.16 1.21 -- GLUC -- -- -- -- -- 130* -- 173* 123* -- IC 1.19 1.14 1.17 -- < > -- < > -- -- -- CA -- -- -- -- -- 7.8* -- 7.6* 8.0* -- MG -- -- -- -- -- 2.1 -- 2.0 -- 1.9 P -- -- -- -- -- 4.4 -- 3.3 -- 3.6 < > = values in this interval not displayed. Liver Function, Amylase, AND Lipase Recent Labs 04/30/18 1111 04/30/18 0834 04/30/181 04/30/18 0005 TPROT -- -- -- -- 6.9 ALB -- -- -- -- 2.0* ALT -- -- -- -- 20 AST -- -- -- -- 46* ALKPHOS -- -- -- -- 63 TBILI -- -- -- -- 0.3 LACT 0.7 1.1 1.2 < > -- < > = values in this interval not displayed. Cardiac Enzymes Critical Imaging Findings: No recent ECHO. MELD-Na score: 13 at 04/30/2018 12:05 AM MELD score: 13 at 04/30/2018 12:05 AM Calculated from: Serum Creatinine: 1.25 mg/dL at 04/30/2018 12:05 AM Serum Sodium: 141 mmol/L (Rounded to 137) at 04/30/2018 12:05 AM Total Bilirubin: 0.3 mg/dL (Rounded to 1) at 04/30/2018 12:05 AM INR(ratio): 1.5 at 04/30/2018 12:05 AM Age: 52 years PROVISIONAL DIAGNOSIS/TREATMENT PLAN: Proceed with TIPS No recent ECHO, will obtain right heart pressure intraoperatively and if normal will proceed with porocedure, if right heart pressures are grossly elevated will abort TIPS. Will monitor for encephalopathy post-procedurally. Labs are appropriate for the procedure. Sedation Goal: General anesthesia. Consent Obtained. DNR Status Discussed with patient/family: No. DNR Status: FULL CODE The patient will be tentatively scheduled for later today. Please make the patient NPO now. Case d/w attending physician, Dr. Nunez I concur with the plan. This HANDP can be found in the Electronic Medical Record dated 04/30/18. SIGNATURE: Jose Murphy MD PATIENT NAME: Lazaro Villafana DATE: April 30, 2018 TIME: 2:25 PM PAGER: [phone] IR director of early childhood education Pager #[phone] (use M-F after 5pm and on Weekends) [facility] STAFF PHYSICIAN NOTE OF PERSONAL INVOLVEMENT IN CARE I have reviewed the consult note obtained and documented by the resident and I personally participated in the jang components. I have discussed the case and management of the patient's care. The following comments revise or confirm relevant jang components of their note. 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 PLAN: TIPS to be performed urgently prior to thoracic surgery tommorrow Stanislav Nunez MD Interventional Radiology Pager [phone] TIME of SERVICE: 7:43 PM CONSULT Observed: 04/30/2018 Status: COMPLETED Source: [place] 1:[address] [facility] REPOSITORY HNO ID: [id number] Author: Isidra Glass Service: Hepatology Author Type: Physician Type: Consults Filed: 04/30/2018 3:40 PM Note Text: Department of Gastroenterology AND Hepatology Initial Consult Note Date of Service: April 30, 2018 Patient: Lazaro Villafana Medical Record: [id number] Reason for Admission / Consultation: Opinion/Advice regarding TIPS procedure Hepatology Attending: Isidra Glass DO Impression: Lazaro Villafana is a 52 year old gentleman with history notable for presumed EtOH related cirrhosis with risk factors for BOONE with disease course c/b portal HTN (EV) who presented with complaints?of several day history of nausea, vomiting, melena, and hematemesis prompting tony tube placement at that time (unsure if gastric vs. Gastric and esophageal balloon inflated) found to have partial thickness esophageal tear and large EV. ? His hospital course c/b mediastinitis with fevers an purulent chest tube output on vancomycin/aztreonam/diflucan, respiratory failure requiring intubation now extubated (04/22) and stable from pulmonary standpoint, and on TPN. ?? XR Esophagram with persistent leak now s/p esophageal stent placement. He has persistent fevers and empyema. Thoracic surgery planning right pleural decortication. Hepatology consulted for TIPS evaluation to decompress portal system prior to thoracic intervention. He does have a hx of encephalopathy in the past Recommendations: --- Recommend Echo for evaluation of pulmonary pressures --- Has increased risk of post-TIPS encephalopathy given hx of prior encephalopathy; this can be monitored post-procedurally and TIPS can be adjusted after thoracic intervention completed if patient develops encephalopathy --- Given the need for urgent intervention, can proceed with TIPS per HARSHIL Cheung MD Gastroenterology and Hepatology Fellow Discussed with staff, Dr. Glass We will continue to follow History of Present Illness: Lazaro Villafana is a 52 year old gentleman with history notable for presumed EtOH related cirrhosis with risk factors for BOONE with disease course c/b portal HTN (EV) who presented with complaints of several day history of nausea, vomiting, melena, and hematemesis prompting tony tube placement at that time (unsure if gastric vs. Gastric and esophageal balloon inflated) subsequently transferred to [facility] where he underwent EGD revealing Grade II non bleeding EV and a long 7 cm laceration (31-38 cm from the incisors) with GE junction documented to be at 45 cm. ? Mr. Villafana has an additional history significant for - Non insulin dependent Diabetes Mellitus - Hypertension - Chronic Kidney Disease - Chronic obstructive pulmonary disease - EtOH abuse disorder ? EGD (04/14/18): ?4:20 PM - GE junction at 45 cm - Grade II Esophageal varices, 2 columns not actively bleeding - Laceration with adherent clot from 31 - 38 cm from incisors. ? ? Transferred to [facility] S[facility] and re-scoped 04/15/18: ? EGD (04/15/18): - Deep mucosal tear 31-38 cm from incisors - Large varices in lower third of esophagus - Hematin in stomach - Scope not advanced to duodenum to avoid additional pressure on esophagus ? His hospital course c/b mediastinitis with fevers an purulent chest tube output on vancomycin/aztreonam/diflucan, respiratory failure requiring intubation and on TPN. He was again re-scoped on 04/26/18: EGD (04/26/18): - Mucosal tear in middle third of esophagus from 31 to 38 cm healing well - PHG ? XR Esophagram (04/27/18) demonstrated persistent right mid-esophageal perforation and endoscopic esophageal stent placed on 04/29/18 EGD (04/29/18): - Non-bleeding large (> 5 mm) esophageal varices. - Deep mucosal tear in the middle third of the esophagus. This measured 5 cm (from 35 to 30 cm). Wallflex fully covered esophageal stent (23 mm x 15.5 cm) placed. 2 clips (MR conditional) were placed on the proximal end of the stent to reduce the risk of stent migration. He was then transferred to thoracic surgery service. He has persistent fevers and empyema. Thoracic surgery planning right pleural decortication. Hepatology consulted for TIPS evaluation to decompress portal system prior to thoracic intervention. MELD-Na score: 13 at 04/30/2018 12:05 AM MELD score: 13 at 04/30/2018 12:05 AM Calculated from: Serum Creatinine: 1.25 mg/dL at 04/30/2018 12:05 AM Serum Sodium: 141 mmol/L (Rounded to 137) at 04/30/2018 12:05 AM Total Bilirubin: 0.3 mg/dL (Rounded to 1) at 04/30/2018 12:05 AM INR(ratio): 1.5 at 04/30/2018 12:05 AM Age: 52 years No Echo for evaluation of pulmonary pressures. He does have a history of encephalopathy in the past on lactulose previously. Pertinent Review of Systems: Negative except as mentioned above Past Medical History: PAST MEDICAL HISTORY Diagnosis Date - Cirrhosis (HCC) - COPD (chronic obstructive pulmonary disease) (HCC) - Diabetes (HCC) - ETOH abuse - Hypertension Past Surgical History: No past surgical history on file. Family History: No family history on file. Social History: Social History Marital status: Spouse name: Years of education: Number of children: Social History Main Topics Smoking status: Current Every Day Smoker Packs/day: 0.00 Years: 0.00 Alcohol use: Yes Drug use: Yes Allergies: ALLERGIES Allergen Reactions - Ciprofloxacin Unknown - Penicillin Unknown Tolerating cefepime Medications: Prior to Admission Medications: amLODIPine (NORVASC) 10 mg tablet Take 10 mg by mouth once daily. metFORMIN (GLUCOPHAGE) 500 mg tablet Take 500 mg by mouth twice daily. losartan (COZAAR) 50 mg tablet Take 50 mg by mouth once daily. lactulose (DUPHALAC, CONSTULOSE) 10 gram/15 mL solution glyBURIDE (DIABETA) 5 mg tablet Take 5 mg by mouth twice daily. hydrOXYzine pamoate (VISTARIL) 50 mg capsule Take 50 mg by mouth twice daily as needed. NORepinephrine (LEVOPHED) 16 mg in D5W 250 mL Inject 0.6-30 mcg/min intravenously continuous. metroNIDAZOLE (FLAGYL) 500 mg/100 mL Inject 100 mL intravenously every 8 hours. aztreonam (AZACTAM) 1 g in D5W 100 mL Inject 100 mL intravenously every 8 hours. propofol infusion (DIPRIVAN) 10 mg/mL injection Inject 0.485- 5.82 mg/min intravenously continuous. pantoprazole (PROTONIX) 40 mg injection Inject 10 mL intravenously twice daily. octreotide 500 mcg in D5W 100 mL Inject 50 mcg/hr intravenously continuous. Current hospital medications: dexmedetomidine 400 mcg in NaCl 0.9% 100 mL (PRECEDEX) 0.2- 1.5 mcg/kg/hr INTRAVENOUS CONTINUOUS sodium chloride 0.65 % 2 [place] (AYR, OCEAN) 2 [place] EACH NOSTRIL 5X/DAY nasal ointment ([facility]) TOPICAL BID Parenteral Nutrition - Adult INTRAVENOUS ONCE TPN (2200 START) NORepinephrine 16 mg in D5W 250 mL (LEVOPHED) 0.6-30 mcg/min INTRAVENOUS CONTINUOUS propofol infusion (DIPRIVAN) 5-60 mcg/kg/min INTRAVENOUS CONTINUOUS furosemide 500 mg in empty container, plastic bag 50 mL IV infusion (LASIX) 5 mg/hr INTRAVENOUS CONTINUOUS dextrose 5% in water iv infusion 5-30 mL/hr INTRAVENOUS CONTINUOUS fat emulsion infusion 20% (INTRALIPID) 250 mL INTRAVENOUS MO-WE-FR (10PM) metoprolol 10 mg injection (LOPRESSOR) 10 mg INTRAVENOUS q 6 HR OLANZapine orally disintegrating 10 mg tab(s) (ZyPREXA ZYDIS) 10 mg ORAL AT BEDTIME lidocaine 5 % 1 Patch (LIDODERM) 1 Patch TRANSDERMAL DAILY lidocaine patch - REMOVE OTHER AT BEDTIME lidocaine - VERIFY PATCH OTHER q 8 H labetalol 10 mg injection syringe (NORMODYNE) 10 mg INTRAVENOUS q 2 H PRN insulin glargine 20 Units pen (long acting) (LANTUS SOLOSTAR, BASAGLAR KWIKPEN) 20 Units SUBCUTANEOUS AT BEDTIME vancomycin iv piggyback 1 g in D5W 200 mL (VANCOCIN) 1 g INTRAVENOUS q 12 HR aztreonam 2 g in D5W 100 mL MB+ (AZACTAM) 2 g INTRAVENOUS q 6 HR heparin 5,000 Units injection 5,000 Units SUBCUTANEOUS q 12 H fluconazole 400 mg in NaCl (iso-osmotic) 200 mL (DIFLUCAN) 400 mg INTRAVENOUS DAILY vancomycin dosing and monitoring per pharmacy OTHER As Directed insulin regular human injection (short acting) (NovoLIN R,HumuLIN R) SUBCUTANEOUS q 6 H potassium chloride iv piggyback 20 mEq/100 mL 20 mEq INTRAVENOUS PRN potassium chloride 20-80 mEq CUP 20-80 mEq ORAL/FEEDING TUBE PRN magnesium sulfate in water 2 g in sterile water 50 ml 2 g INTRAVENOUS PRN sodium glycerophosphate 15 mmol in D5W 250 mL (GLYCOPHOS) 15 mmol INTRAVENOUS PRN sodium glycerophosphate 30 mmol in D5W 250 mL (GLYCOPHOS) 30 mmol INTRAVENOUS PRN sodium glycerophosphate 45 mmol in D5W 250 mL (GLYCOPHOS) 45 mmol INTRAVENOUS PRN dextrose 40 % 15 g 15 g ORAL PRN glucagon 1 mg injection (GLUCAGEN) 1 mg INTRAMUSCULAR PRN dextrose 50 % 12.5 g injection 12.5 g INTRAVENOUS PRN NaCl 0.9% 3-5 mL 3-5 mL INTRAVENOUS q 12 H fentaNYL 50 mcg/mL 25-50 mcg injection (SUBLIMAZE) 25-50 mcg INTRAVENOUS q 1 H PRN metroNIDAZOLE 500 mg PREMIX piggyback (FLAGYL) 500 mg INTRAVENOUS q 8 H ipratropium-albuterol 3 mL nebulizer solution (DUONEB) 3 mL INHALATION q 4 H PRN pantoprazole 40 mg injection (PROTONIX) 40 mg INTRAVENOUS BID AC (0600/1600) Physical Exam: Vital Signs 04/30/18 1210 04/30/18 1230 04/30/18 1250 04/30/18 1310 BP: Pulse: 90 87 79 81 Resp: 19 20 18 22 Temp: TempSrc: SpO2: 96% 96% 97% 97% Weight: Height: Intake/Output Summary (Last 24 hours) at 04/30/18 1336 Last data filed at 04/30/18 1230 Gross per 24 hour Intake 3844.6 ml Output 5352 ml Net -1507.4 ml VITAL SIGNS: BP 136/74 Pulse 81 Temp (Src) 100 (Oral) Resp 22 Ht 5' 10 (1.78m) Wt 236 lb 15.9 oz (107.5kg) SpO2 97% BMI 34.01 kg/(m2). General appearance: alert, in no acute distress Skin: no rashes or lesions Head: normal Eyes: Anicteric sclera. Lungs: lungs clear to auscultation, no wheezing or rhonchi; +chest tube Heart: RRR without murmur Abdomen: Abdomen soft, non-tender. Bowel sounds normal. Neuro: CN2-12 grossly intact Labs: CBC, Coags, BMP, Mg, Phos Recent Labs 04/30/18 1111 04/30/18 0834 04/30/18 0451 04/30/18 0445 04/30/18 0005 04/29/18 0200 04/28/18 1236 04/28/18 0106 WBC -- -- -- 7.89 -- 7.44 -- -- -- 7.63 HB -- -- -- 8.0* -- 6.7* -- -- -- 7.8* HCT -- -- -- 25.0* -- 22.3* -- -- -- 25.5* PLT -- -- -- 134* -- 137* -- -- -- 145* INR -- -- -- -- -- 1.5* -- -- -- -- APTT -- -- -- -- -- 34.1* -- -- -- -- NA -- -- -- -- -- 141 -- 142 144 -- K -- -- -- -- -- 4.5 -- 4.6 4.9 -- CHLOR -- -- -- -- -- 111* -- 111* 113* -- CO2 -- -- -- -- -- 20* -- 21* 23 -- BUN -- -- -- -- -- 42* -- 39* 38* -- CREAT -- -- -- -- -- 1.25* -- 1.16 1.21 -- GLUC -- -- -- -- -- 130* -- 173* 123* -- IC 1.19 1.14 1.17 -- < > -- < > -- -- -- CA -- -- -- -- -- 7.8* -- 7.6* 8.0* -- MG -- -- -- -- -- 2.1 -- 2.0 -- 1.9 P -- -- -- -- -- 4.4 -- 3.3 -- 3.6 < > = values in this interval not displayed. Liver Function, Amylase, AND Lipase Recent Labs 04/30/18 1111 04/30/18 0834 04/30/18 0451 04/30/18 0005 TPROT -- -- -- -- 6.9 ALB -- -- -- -- 2.0* ALT -- -- -- -- 20 AST -- -- -- -- 46* ALKPHOS -- -- -- -- 63 TBILI -- -- -- -- 0.3 LACT 0.7 1.1 1.2 < > -- < > = values in this interval not displayed. SIGNATURE: Alec Cheung MD PATIENT NAME: Lazaro Villafana DATE: April 30, 2018 TIME: 1:36 PM PAGER/CONTACT #: [phone] Fellow's history reviewed. Patient interviewed and examined. 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 Being managed for esophageal tear and has known varices. He reports being treated for high ammonia in the past with lactulose. On exam, I find no asterixis. Assessment and plan reviewed with fellow. Labs/tests show MELD-Na score: 13 at 04/30/2018 12:05 AM MELD score: 13 at 04/30/2018 12:05 AM Calculated from: Serum Creatinine: 1.25 mg/dL at 04/30/2018 12:05 AM Serum Sodium: 141 mmol/L (Rounded to 137) at 04/30/2018 12:05 AM Total Bilirubin: 0.3 mg/dL (Rounded to 1) at 04/30/2018 12:05 AM INR(ratio): 1.5 at 04/30/2018 12:05 AM Age: 52 years Recommendations: Echo if time allows TIPS is reasonable in this patient Monitor for worsening encephalopathy post TIPS and surgery I have personally examined the patient and repeated the jang components of the exam/history. The assessment and plan were formulated and discussed with the resident/fellow. See fellow's note for further details. Isidra Glass DO April 30, 2018 3:40 PM PROGRESS Observed: 04/30/2018 Status: COMPLETED Source: [place] 11:44 AM [facility] REPOSITORY HNO ID: [id number] Author: Garrison Gr Service: Thoracic Surgery Author Type: Physician Type: Progress Notes Filed: 04/30/2018 11:51 AM Note Text: [facility] STAFF PHYSICIAN NOTE OF PERSONAL INVOLVEMENT IN CARE IMPRESSION: Patient is a 52 year old male with advanced cirrhosis, ascites, esophageal varices, moderate liver synthetic dysfunction and thrombocytopenia Admitted with esophageal perforation in to right pleural space, drained with a chest tube but has developed loculations that are undrained. Stented yesterday. Overnight continues to be febrile. Respiratory status stable to improving and he is weaning to extubate. I had a detailed discussion with the ICU staff, my team and the patient's on the phone. In the setting of cirrhosis, ascites, empyema and esophageal perforation and on going fevers, it is unlikely that he will be salvaged without clearing the persistent infection in his chest. Any thoracic intervention carries a high risk of morbidity and mortality. I have made this very clear to the . My recommendation is to perform TIPS to decompress the portal system and perform right pleural decortication. There is no doubt that this is a high risk undertaking but this is what we need to do to safe his life. All parties understand and are in agreement. PLAN: - IR consult for TIPS urgently - Plan for thoracic exploration tomorrow morning - He will need platelet, FFP and PRBC transfusions ad tomas I have reviewed the documentation obtained and documented by the Resident and have reviewed and updated the problem list as appropriate. I have personally performed a face to face assessment of the patient and have personally participated in the jang components. I have discussed the case and management of the patient's care. STAFF PHYSICIAN: Garrison Gr MD DATE OF SERVICE: April 30, 2018 TIME OF SERVICE: 11:44 AM GASA + ALL Collected: 04/30/2018 Status: F Source: [place] FOR 11:11 AM [facility] USE ONLY REPOSITORY TYPE CODE TESTS RESULT OUT OF REFERENCE UNITS RANGE LAB PH 7.35-7.45 pH 7.38 LAB PCO2 34-46 mm Hg pCO2 37 LAB PO2 85-95 mm Hg pO2 91 LAB BE mmol/L Base Excess NEG 3 LAB HCO3 22-26 mmol/L Bicarbonate Low 21 LAB CO2CT 22.0-28.0 mmol/L CO2 Content 22 LAB O2HB 95-98 % Oxyhemoglobin, Art. 95 LAB COHB 0-5.0 % Carboxyhemoglobin, 1.5 Art LAB MHGB 0.4-1.5 % Methemoglobin 0.7 LAB TEMP C Temperature, Body 37.0 LAB PHTC 7.35-7.45 pH, Temp Corrected 7.38 LAB PCO2T 34-46 mm Hg pCO2, Temp Correct 37 LAB PO2T mm Hg pO2, Temp Corrected 91 LAB NAB 135-146 mmol/L Sodium,Whole Bld 141 LAB KWB 3.5-5.0 mmol/L Potassium, Whole Bld 4.0 LAB HGBB 13.0-17.0 g/dL Low Hemoglobin,Total,A 8.7 CL LAB HCTB 39.0-51.0 % Hematocrit, Low ACL 27 LAB IC 1.08-1.30 mmol/L Calcium, Ion, WB 1.19 LAB GLB 60-105 mg/dL Glucose,Whole High Bld 153 LAB LACT 0.5-2.2 mmol/L Lactate 0.7 LAB ACBDTE Notify Date, Art [id number] LAB ACBTME Notify Time, Art Performed By: #### ALLBG #### [facility] [address] [place], [place] [address] PROGRESS Observed: 04/30/2018 Status: COMPLETED Source: [place] 10:[address] [facility] REPOSITORY HNO ID: [id number] Author: García Hodge Service: Critical Care Author Type: Anesthesiologist Type: Progress Notes Filed: 04/30/2018 10:45 AM Note Text: [facility] Note Name: Lazaro Villafana Coordination of Care Note: Important/Relevant PMH/PSH: Alcohol use disorder with recent diagnosis of cirrhosis w/ esophageal varices, type II DM, poorly controlled HTN, CKD, COPD, tobacco smoker 2-3 PPD. Hospital Course: HPI: Lazaro Villafana is a 52 year old male with alcohol use disorder with recent diagnosis of cirrhosis w/ esophageal varices who presents on transfer from OSH with hematemesis s/p EGD at OSH c/b esophageal laceration; MELD >?20. R-sided chest tube for hydropneumothorax. Admitted to [facility] SICU 04/14/18. 04/15/18: EGD showed 5cm esophageal laceration without active bleeding. 04/16/18: Right chest tube placed for effusion. 04/22/18: Extubated. 04/26/18: EGD: partial mucosal tear in mid esophagus. 04/27/18: Eesophagram showed persistent leak. 04/29/18: EGD 04/29: Esophageal stent successfully placed in Q3. Acute pulmonary insufficiency following non-thoracic surgery requiring intubation. Respiratory status improved with placement of CT to sxn. See Epic note for more details. Per discussion between Dr Jerry and Dr Soto the patient's care will be transitioned to Thoracic Surgery care, thoracic Surgery being primary team. Transferred to CVICU from SICU. A/P of Major Active Problems (excluding routine care and common problems): CV: SR. Off pressors. Resp: Arrived intubated and sedated. Respiratory insufficiency improved with CT to sxn post procedure. Vent wean as able. R-sided chest tube for hydropneumothorax. 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 GI: Strict NPO, TPN. Cirrhosis. INR 1.5. POD 1 Esoph stent to be removed in 4 weeks. Heme: Hb 8. Plts 134k. INR 1.5. Cautious use of SQH given bedrest. Renal: Cr 1.16-->1.25 CKD. Lasix qtt all night. Hold qtt and redose tomorrow. Endo: Lantus 20 and SSI. ID: Hospital course c/b mediastinitis with fevers an purulent chest tube output on vancomycin/aztreonam/flagyl/diflucan. ID following. Epistaxis: ENT following-->Nasal packing with Surgicel fibrillar. Lines: L IJ triple lumen (04/27/18). To Do or to Watch: WTE Precedex as needed NPO/TPN/No NGT for now Possibly lasix again tomorrow. Plan TIPS prior to decortication Esophageal stent Recent epistaxis Vanc/aztreonam/flagyl/fluc Issues I addressed are: Non Gap Metabolic Acidosis Hyperglycemia Alcoholic Cirrhosis (Hcc) Copd (Chronic Obstructive Pulmonary Disease) (Hcc) Esophageal Perforation Acute Post-Operative Pain Acute Respiratory Insufficiency Consolidation of Right Lower Lobe of Lung (Hcc) Tobacco Abuse Mediastinitis Severe Protein-Calorie Malnutrition (Hcc) Delirium Due to General Medical Condition Epistaxis Acute Respiratory Failure (Hcc) Type II Diabetes Mellitus (Hcc) History of Hypertension Hydropneumothorax Ckd (Chronic Kidney Disease) General-No distress. Neuro-awake and fluent post extubation ;NICOLAS's Neck-No JVD CV-RRR Lungs-CTA. Unlabored Abd-soft and NT. Mild distention. R chest tube. Ext-WWP. 2+ edema. This patient has a high probability of sudden, clinically significant deterioration, which requires the highest level of preparedness to intervene urgently. I participated in the decision making and personally managed or directed the care plan, including medical problems that required my frequent assessment to treat or prevent imminent deterioration. I personally spent 40 minutes of critical care time treating the patient. Time devoted to any procedures I billed separately is not included. I also rounded with the thoracics team. SIGNATURE: García Hodge MD DATE of SERVICE: 04/30/2018 TIME of SERVICE: 10:41 AM GASA + ALL Collected: 04/30/2018 Status: F Source: [place] FOR 8:34 AM [facility] USE ONLY REPOSITORY TYPE CODE TESTS RESULT OUT OF REFERENCE UNITS RANGE LAB PH 7.35-7.45 pH 7.42 LAB PCO2 34-46 mm Hg pCO2 Low 32 LAB PO2 85-95 mm Hg pO2 High 115 LAB BE mmol/L Base Excess NEG 3 LAB HCO3 22-26 mmol/L Bicarbonate Low 20 LAB CO2CT 22.0-28.0 mmol/L CO2 Content Low 21 LAB O2HB 95-98 % Oxyhemoglobin, Art. 97 LAB COHB 0-5.0 % Carboxyhemoglobin, 1.6 Art LAB MHGB 0.4-1.5 % Methemoglobin 0.8 LAB TEMP C Temperature, Body 37.0 LAB PHTC 7.35-7.45 pH, Temp Corrected 7.42 LAB PCO2T 34-46 mm Hg pCO2, Temp Low Correct 32 LAB PO2T mm Hg pO2, Temp Corrected 115 LAB NAB 135-146 mmol/L Sodium,Whole Bld 138 LAB KWB 3.5-5.0 mmol/L Potassium, Whole Bld 4.0 LAB HGBB 13.0-17.0 g/dL Low Hemoglobin,Total,A 8.6 CL LAB HCTB 39.0-51.0 % Hematocrit, Low ACL 27 LAB IC 1.08-1.30 mmol/L Calcium, Ion, WB 1.14 LAB GLB 60-105 mg/dL Glucose,Whole High Bld 160 LAB LACT 0.5-2.2 mmol/L Lactate 1.1 LAB ACBDTE Notify Date, Art [id number] LAB ACBTME Notify Time, Art Performed By: #### ALLBG #### [facility] [address] [place], [place] [address] GASA + ALL Collected: 04/30/2018 Status: F Source: [place] FOR 4:51 AM [facility] USE ONLY REPOSITORY TYPE CODE TESTS RESULT OUT OF REFERENCE UNITS RANGE LAB PH 7.35-7.45 pH 7.36 LAB PCO2 34-46 mm Hg pCO2 36 LAB PO2 85-95 mm Hg pO2 High 121 LAB BE mmol/L Base Excess NEG 4 LAB HCO3 22-26 mmol/L Bicarbonate Low 20 LAB CO2CT 22.0-28.0 mmol/L CO2 Content Low 21 LAB O2HB 95-98 % Oxyhemoglobin, Art. 97 LAB COHB 0-5.0 % Carboxyhemoglobin,A 1.0 rt LAB MHGB 0.4-1.5 % Methemoglobin 0.8 LAB TEMP C Temperature, Body 37.0 LAB PHTC 7.35-7.45 pH, Temp Corrected 7.36 LAB PCO2T 34-46 mm Hg pCO2, Temp Correct 36 LAB PO2T mm Hg pO2, Temp Corrected 121 LAB NAB 135-146 mmol/L Sodium,Whole Bld 139 LAB KWB 3.5-5.0 mmol/L Potassium, Whole Bld 3.9 LAB HGBB 13.0-17.0 g/dL Low Hemoglobin,Total,AC 8.2 L LAB HCTB 39.0-51.0 % Hematocrit, ACL Low 26 LAB IC 1.08-1.30 mmol/L Calcium, Ion, WB 1.17 LAB GLB 60-105 mg/dL Glucose,Whole Bld High 163 LAB LACT 0.5-2.2 mmol/L Lactate 1.2 Performed By: #### ALLBG #### [facility] [address] [place], [place] [address] CBC Collected: 04/30/2018 Status: F Source: [place] 4:45 AM [facility] REPOSITORY TYPE CODE TESTS RESULT OUT OF REFERENCE UNITS RANGE LAB WBC 3.70-11.00 k/uL WBC 7.89 LAB RBC 4.20-6.00 m/uL Low RBC 2.76 LAB HGB 13.0-17.0 g/dL Low Hemoglobin 8.0 LAB HCT 39.0-51.0 % Low Hematocrit 25.0 LAB MCV 80.0-100.0 fL MCV 90.6 LAB MCH 26.0-34.0 pG MCH 29.0 LAB MCHC 30.5-36.0 g/dL MCHC 32.0 LAB RDWCV 11.5-15.0 % RDW-CV High 16.9 LAB PLTCT 150-400 k/uL Low Platelet Count 134 LAB MPV 9.0-12.7 fL MPV 11.5 LAB ABSNUC <0.01 k/uL Absolute nRBC <0.01 Performed By: #### CBC #### [facility] [address] [place], [place] [address] XR CHEST 1V FRONTAL Observed: 04/30/2018 Status: F Source: [facility] 3:26 AM [facility] REPOSITORY * * *Final Report* * * DATE OF EXAM: Apr 30 2018 3:26AM JIX [id number] - XR CHEST 1V FRONTAL PORT / PROCEDURE REASON: Acute respiratory illness * * * * Physician Interpretation * * * * EXAMINATION: CHEST RADIOGRAPH (PORTABLE SINGLE VIEW AP) Exam Date/Time: 04/30/2018 3:26 AM Clinical History: Acute respiratory illness, MQ: XCPMC_5 Comparison: 1 day prior RESULT: See impression. IMPRESSION: Lines, tubes, and devices: The tip of the ET tube is 5 to 6 cm proximal to the bethany. The tip of the left IJ venous catheter overlies the right atrium. A right thoracostomy tube remains in place. A mural stent remains positioned over the lower third of the esophagus extending into the proximal stomach.. Lungs and pleura: Vague lucency overlying the right lung base is consistent with sequelae of a hydropneumothorax as stated on the chest CT of 04/28/2018. There is a persistent right mid to lower lung airspace opacity most commonly secondary to nonspecific atelectasis or pneumonia/aspiration. The left lung appears clear. Cardiomediastinal silhouette: Stable cardiomediastinal silhouette. The heart size is within normal limits. There is increased soft tissue density in the right paratracheal region which may be secondary to loculated pleural fluid, mediastinal lymphadenopathy and/or venous distention. Steel Turner: NIDHI Transcribe Date/Time: Apr 30 2018 1:12P Dictated by : WASHINGTON MONTANEZ MD This examination was interpreted and the report reviewed and electronically signed by: WASHINGTON MONTANEZ MD on Apr 30 2018 1:15PM EST [id number] NURSING PROG Observed: 04/30/2018 Status: COMPLETED Source: [place] 12:43 AM [facility] REPOSITORY HNO ID: [id number] Author: Delisa (Rn) BLAYNE Hawley Service: Nursing Author Type: Registered Nurse Type: Nursing Progress Note Filed: 04/30/2018 12:44 AM Note Text: Nursing Progress: Topic: RESTRAINT NON-VIOLENT PATIENT NAME: Lazaro Villafana PATIENT LOCATION: [place] [id number] The patient demonstrates Attempting to Remove Medical Devices Vital to Medical Stability as evidenced by the following behaviors attempting to pull ETT AND invasive lines which pose an imminent danger to self or others. The following interventions were attempted but were not effective in protecting the patient's safety: Bed in Low/Locked Position, Modify Environment, Modify Equipment, Frequent Observation, Re-Orientation Methods Next, a comprehensive assessment was performed and warranted placing the patient in Soft Bilateral Wrists, the least restrictive restraint needed to protect the patient's safety. Ongoing safety assessments and evaluation for earliest removal of restraints will be performed. DATE: April 30, 2018 TIME: 12:43 AM Delisa Hawley RN GASA + ALL Collected: 04/30/2018 Status: F Source: [place] FOR 12:12 AM [facility] RADIANCE USE ONLY REPOSITORY TYPE CODE TESTS RESULT OUT OF REFERENCE UNITS RANGE LAB PH 7.35-7.45 pH 7.35 LAB PCO2 34-46 mm Hg pCO2 36 LAB PO2 85-95 mm Hg pO2 139 High LAB BE mmol/L Base Excess NEG 5 LAB HCO3 22-26 mmol/L Bicarbonate 20 Low LAB CO2CT 22.0-28.0 mmol/L CO2 Content 21 Low LAB O2HB 95-98 % 97 Oxyhemoglobin, Art. LAB COHB 0-5.0 % 1.3 Carboxyhemoglobin ,Art LAB MHGB 0.4-1.5 % 0.9 Methemoglobin LAB TEMP C 37.0 Temperature, Body LAB PHTC 7.35-7.45 pH, Temp 7.35 Corrected LAB PCO2T 34-46 mm Hg pCO2, Temp 36 Correct LAB PO2T mm Hg pO2, Temp 139 Corrected LAB NAB 135-146 mmol/L 141 Sodium,Whole Bld LAB KWB 3.5-5.0 mmol/L Potassium, 4.5 Whole Bld LAB HGBB 13.0-17.0 g/dL 7.0 Low Hemoglobin,Total, ACL LAB HCTB 39.0-51.0 % Hematocrit, 22 Low ACL LAB IC 1.08-1.30 mmol/L Calcium, 1.22 Ion, WB LAB GLB 60-105 mg/dL 128 High Glucose,Whole Bld LAB LACT 0.5-2.2 mmol/L Lactate 1.2 LAB ABGCOM Blood Gas O2 Comm, Art Administration Result Comment: 40% Performed By: #### ALLBG #### [facility] [address] [place], [place] [address] CBC Collected: 04/30/2018 Status: F Source: [place] 12:05 AM [facility] REPOSITORY TYPE CODE TESTS RESULT OUT OF REFERENCE UNITS RANGE LAB WBC 3.70-11.00 k/uL WBC 7.44 LAB RBC 4.20-6.00 m/uL Low RBC 2.37 LAB HGB 13.0-17.0 g/dL Low Hemoglobin 6.7 LAB HCT 39.0-51.0 % Low Hematocrit 22.3 LAB MCV 80.0-100.0 fL MCV 94.1 LAB MCH 26.0-34.0 pG MCH 28.3 LAB MCHC 30.5-36.0 g/dL Low MCHC 30.0 LAB RDWCV 11.5-15.0 % RDW-CV High 16.5 LAB PLTCT 150-400 k/uL Low Platelet Count 137 LAB MPV 9.0-12.7 fL MPV 11.6 LAB ABSNUC <0.01 k/uL Absolute nRBC <0.01 Performed By: #### CBC, PT, PTT, CMP, MG1, PHOS, AHCV, HIV12C #### [facility] [address] [place], [place] [address] PROTIME Collected: 04/30/2018 Status: F Source: [place] 12:05 [facility] REPOSITORY TYPE CODE TESTS RESULT OUT OF RANGE REFERENCE UNITS LAB PSEC 9.7-13.0 sec High PT Sec 15.4 LAB INR 0.9-1.3 High PT INR 1.5 Result Comment: Vitamin K Antagonist (VKA) Therapeutic Range: INR 2 to 3 (Target INR of 2.5) Note: For patients treated with VKA drugs, such as warfarin, the [place] [employer] 2012 Guideline recommends a therapeutic INR range of 2 to 3 (target INR of 2.5). This recommendation includes high-risk patients with antiphospholipid syndrome with previous arterial or venous thromboembolism, current-generation mechanical or bioprosthetic aortic heart valve replacement. Note: Patients with mechanical aortic valve replacement and additional risk factors for thromboembolic events (atrial fibrillation, previous thromboembolism, LV dysfunction, hypercoagulable conditions) or an older generation mechanical AVR (i.e., ball in-Cage) or any mechanical MVR should have a INR therapeutic range of 2.5 to 3.5 (target INR of 3). Serjio GH, et al. Chest 2012, 141:7S-47S Rashida RA, et al. [facility] 2017, 70: 252-289 Performed By: #### CBC, PT, PTT, CMP, MG1, PHOS, AHCV, HIV12C #### [facility] [address] [place], [place] [address] APTT Collected: 04/30/2018 Status: F Source: [place] 12:05 [facility] REPOSITORY TYPE CODE TESTS RESULT OUT OF RANGE REFERENCE UNITS LAB APTT 23.0-32.4 sec High APTT 34.1 Result Comment: Unfractionated Heparin Therapeutic Ranges: Standard Heparin Nomogram: 53 to 78 seconds (anti-Xa level of 0.3 to 0.7 U/ml) Low Dose/ACS Nomogram: 49 to 67 seconds (anti-Xa level of 0.2 to 0.5 U/ml) Stroke Treatment Nomogram: 49 to 67 seconds (anti-Xa level of 0.2 to 0.5 U/ml) Note: The APTT therapeutic range has been determined for the current lot of laboratory APTT reagent in use throughout the [facility]. Performed By: #### CBC, PT, PTT, CMP, MG1, PHOS, AHCV, HIV12C #### [facility] [address] [place], [place] [address] COMP METABOLIC PANEL Collected: 04/30/2018 Status: F Source: [place] 12:[address] [facility] REPOSITORY TYPE CODE TESTS RESULT OUT OF REFERENCE UNITS RANGE LAB TP 6.3-8.0 g/dL Protein, Total 6.9 LAB ALB 3.9-4.9 g/dL Low Albumin 2.0 LAB CA 8.5-10.2 mg/dL Low Calcium, Total 7.8 LAB TBIL 0.2-1.3 mg/dL Bilirubin, Total 0.3 LAB ALKP 38-113 U/L Alkaline Phosphatase 63 LAB AST 14-40 U/L AST High 46 LAB GLU 74-99 mg/dL Glucose High 130 Result Comment: The [place] [employer] Association (ADA) provides guidance for cutoff values for fasting glucose and random glucose. The ADA defines fasting as no caloric intake for at least 8 hours. Fas ting plasma glucose results between 100 to 125 mg/dL indicate increased risk for diabetes (prediabetes). Fasting plasma glucose results greater than or equal to 126 mg/dL meet the criteria for diagnosis of diabetes. In the absence of unequivocal hyperglycemia, results should be confirmed by repeat testing. In a patient with classic symptoms of hyperglycemia or hyperglycemic crisis, random plasma glucose results greater than or equal to 200 mg/dL meet the criteria for diagnosis of diabetes. Reference: Standards of Medical Care in Diabetes 2016, [place] [employer]. Diabetes Care. 2016.39(Suppl 1). LAB BUN 9-24 mg/dL BUN High 42 LAB CRET 0.73-1.22 mg/dL Creatinine High 1.25 LAB NA 136-144 mmol/L Sodium 141 LAB K 3.7-5.1 mmol/L Potassium 4.5 LAB CL 97-105 mmol/L Chloride High 111 LAB CO2 22-30 mmol/L Low CO2 20 LAB AGAP 9-18 mmol/L Anion Gap 10 LAB ALT 10-54 U/L ALT 20 LAB GFRAA eGFR- Amer. >60 LAB GFRNAA . eGFR-All Other Races >60 Result Comment: eGFR (Estimated GFR) Units of measure: mL/min/1.73 meters squared eGFR is derived from the reexpressed MDRD Study equation using the following parameters: serum creatinine, age, gender and race. The creatinine assay has been calibrated to be traceable to IDMS. An eGFR <60 mL/min/1.73m2 for >3 months is consistent with chronic kidney disease. Refer to KDOQI guidelines for clinical interpretation. In patients with unstable renal function, e.g. those with acute kidney injury, the eGFR may not accurately reflect actual GFR. Performed By: #### CBC, PT, PTT, CMP, MG1, PHOS, AHCV, HIV12C #### [facility] [address] [place] [address] MAGNESIUM Collected: 04/30/2018 Status: F Source: [place] 12:05 [facility] REPOSITORY TYPE CODE TESTS RESULT OUT OF REFERENCE UNITS RANGE LAB MG 1.7-2.3 mg/dL Magnesium 2.1 Performed By: #### CBC, PT, PTT, CMP, MG1, PHOS, AHCV, HIV12C #### [place] [address] PHOSPHORUS Collected: 04/30/2018 Status: F Source: [place] 12:05 [facility] REPOSITORY TYPE CODE TESTS RESULT OUT OF REFERENCE UNITS RANGE LAB PHOS 2.7-4.8 mg/dL Phosphorus 4.4 Performed By: #### CBC, PT, PTT, CMP, MG1, PHOS, AHCV, HIV12C #### [place] [phone] HEPATITIS C AB IA Collected: 04/30/2018 Status: F Source: [place] 12:05 [facility] REPOSITORY TYPE CODE TESTS RESULT OUT OF REFERENCE UNITS RANGE LAB AHCV Negative Hepatitis C Ab Negative IA Performed By: #### CBC, PT, PTT, CMP, MG1, PHOS, AHCV, HIV12C #### [facility] [address] [place] [address] HIV 12 COMBO (AG/AB) Collected: 04/30/2018 Status: F Source: [place] 12:05 [facility] REPOSITORY TYPE CODE TESTS RESULT OUT OF REFERENCE UNITS RANGE LAB HVAGAB Non Reactive HIV Non Reactive 12 Ag/Ab Result Comment: (NOTE) HIV Information: [place] Rev. Code 3701.243(E): This information has been disclosed to you from confidential records protected from disclosure by state law. You shall make no further disclosure of this information without the specific, written, and informed release of the individual to whom it pertains, or as otherwise permitted by state law. A general authorization for the release of medical or other information is not sufficient for the purpose of the release of HIV test results or diagnoses. Performed By: #### CBC, PT, PTT, CMP, MG1, PHOS, AHCV, HIV12C #### [facility] [address] [place], [place] [address] GASA + ALL Collected: 04/29/2018 Status: F Source: [place] FOR 9:21 PM [facility] RADIANCE USE ONLY REPOSITORY TYPE CODE TESTS RESULT OUT OF REFERENCE UNITS RANGE LAB PH 7.35-7.45 pH 7.35 LAB PCO2 34-46 mm Hg pCO2 36 LAB PO2 85-95 mm Hg pO2 107 High LAB BE mmol/L Base Excess NEG 5 LAB HCO3 22-26 mmol/L Bicarbonate 19 Low LAB CO2CT 22.0-28.0 mmol/L CO2 Content 20 Low LAB O2HB 95-98 % 96 Oxyhemoglobin, Art. LAB COHB 0-5.0 % 1.7 Carboxyhemoglobin ,Art LAB MHGB 0.4-1.5 % 0.4 Methemoglobin LAB TEMP C 37.0 Temperature, Body LAB PHTC 7.35-7.45 pH, Temp 7.35 Corrected LAB PCO2T 34-46 mm Hg pCO2, Temp 36 Correct LAB PO2T mm Hg pO2, Temp 107 Corrected LAB NAB 135-146 mmol/L 142 Sodium,Whole Bld LAB KWB 3.5-5.0 mmol/L Potassium, 4.2 Whole Bld LAB HGBB 13.0-17.0 g/dL 6.8 Low Hemoglobin,Total, ACL LAB HCTB 39.0-51.0 % Hematocrit, 21 Low ACL LAB IC 1.08-1.30 mmol/L Calcium, 1.19 Ion, WB LAB GLB 60-105 mg/dL 165 High Glucose,Whole Bld LAB LACT 0.5-2.2 mmol/L Lactate 1.3 LAB ABGCOM Blood Gas O2 Comm, Art Administration Result Comment: 40% Performed By: #### ALLBG #### [facility] [address] [place], [place] [address] PROCEDURE Observed: 04/29/2018 Status: COMPLETED Source: [place] 8:24 PM [facility] REPOSITORY HNO ID: [id number] Author: Zahida Figueroa Service: Critical Care Author Type: Physician Type: Procedures Filed: 05/09/2018 11:06 AM Note Text: BEDSIDE PROCEDURE NOTE ARTERIAL LINE Date/Start Time: 04/29/2018 8:24 PM Performed by: ESTRELLITA LEIJA (RES) Authorized by: ZAHIDA FIGUEROA Consent/[place] Protocol Written consent obtained: No, emergent procedure Pre-procedure Details: PPE Used: Sterile gloves, mask and cap The area was prepped with chlorhexidine (Chloroprep) and allowed to dry. A sterile partial body drape was applied following the usual aseptic technique. Medications: Sedation Sedation (see MAR): Propofol Procedure Details: Indication: Monitoring of vital bodily functions and frequent ABGs and labs Site: Left radial Technique: Modified Seldinger The artery was cannulated with a 20 gauge catheter. A straight-tipped spring wire was passed into the artery through the indwelling catheter and left in situ while the catheter was removed. A 12 cm, 20 gauge catheter was advanced over the guidewire and left in situ while the guidewire was removed. Pulsatile blood flow exited the catheter. Arterial waveform was noted on the monitor when the catheter was transduced. Securement/Dressing: Sterile, transparent, occlusive dressing All catheters, needles, and wires were accounted for and intact Number of attempts: 1 Post-procedure Details: Patient tolerated the procedure well with no immediate complications Estimated Blood Loss: Scant Comments: I was present and supervised the procedure Zahida Figueroa MD SIGNATURE: Estrellita Leija DO PATIENT NAME: Lazaro Villafana DATE: April 29, 2018 TIME: 8:24 PM PAGER/CONTACT #: XR CHEST 1V FRONTAL Observed: 04/29/2018 Status: F Source: [facility] 6:59 PM [facility] REPOSITORY * * *Final Report* * * DATE OF EXAM: Apr 29 2018 6:59PM AGNIESZKA [id number] - XR CHEST 1V FRONTAL PORT / PROCEDURE REASON: Evaluate tube, line or lead position * * * * Physician Interpretation * * * * EXAMINATION: CHEST RADIOGRAPH (PORTABLE SINGLE VIEW AP) Exam Date/Time: 04/29/2018 6:59 PM Clinical History: Evaluate tube, line or lead position, MQ: XCPMC_5 Comparison: 04/29/2017 12:33 RESULT: See impression. IMPRESSION: Lines, tubes, and devices: No substantial change in position of the endotracheal tube, left IJ catheter, or right thoracostomy tube. Distal esophageal stent extending into the stomach is noted. Lungs and pleura: Hazy opacity at the right lung base is consistent with a hydropneumothorax as seen on the recent chest CT. Adjacent opacity in the right lung base is most commonly due to either atelectasis versus pneumonia/aspiration. No pulmonary edema. Left lung is clear of consolidation. Cardiomediastinal silhouette: Stable cardiomediastinal silhouette. Other: . Steel Turner: PSCB Transcribe Date/Time: Apr 29 2018 7:39P Dictated by : REMI PASTOR MD This examination was interpreted and the report reviewed and electronically signed by: REMI PASTOR MD on Apr 29 2018 7:43PM EST [id number] Observed: 04/29/2018 Status: COMPLETED Source: [place] 6:25 PM [facility] REPOSITORY HNO ID: [id number] Author: Quiana Valentine Service: Critical Care Author Type: Nurse Practitioner Type: Progress Notes Filed: 04/29/2018 6:44 PM Note Text: [facility] Admission Note Name: Lazaro Villafana Principal Diagnosis: Esophageal perforation Important/Relevant PMH/PSH: Alcohol use disorder with recent diagnosis of cirrhosis w/ esophageal varices, type II DM, poorly controlled HTN, CKD, COPD, tobacco smoker 2-3 PPD. Hospital Course: HPI: Lazaro Villafana is a 52 year old male with alcohol use disorder with recent diagnosis of cirrhosis w/ esophageal varices who presents on transfer from OSH with hematemesis s/p EGD at OSH c/b esophageal laceration; MELD >?20. R-sided chest tube for hydropneumothorax. Admitted to [facility] SICU 04/14/18. 04/15/18: EGD showed 5cm esophageal laceration without active bleeding. 04/16/18: Right chest tube placed for effusion. 04/22/18: Extubated. 04/26/18: EGD: partial mucosal tear in mid esophagus. 04/27/18: Eesophagram showed persistent leak. 04/29/18: EGD 04/29: Esophageal stent successfully placed in Q3. Acute pulmonary insufficiency following non-thoracic surgery requiring intubation. Respiratory status improved with placement of CT to sxn. See Epic note for more details. Per discussion between Dr Jerry and Dr Soto the patient's care will be transitioned to Thoracic Surgery care, thoracic Surgery being primary team. Transferred to CVICU from SICU. A/P of Major Active Problems (excluding routine care and common problems): CV: SR. Hypotensive requiring vasopressor support on norepinephrine infusion for MAP > 65, wean as tolerated. Resp: Arrived intubated and sedated. Respiratory insufficiency improved with CT to sxn post procedure. Vent wean as able. R-sided chest tube for hydropneumothorax. GI: Strict NPO, TPN. Renal: Cr 1.16. CKD. Avoid hypotension, nephrotoxic agents, and renally dose medications. ID: Hospital course c/b mediastinitis with fevers an purulent chest tube output on vancomycin/aztreonam/diflucan. ID following. Epistaxis: ENT following-->Nasal packing with Surgicel fibrillar. Lines: L IJ triple lumen (04/27/18). To Do or to Watch: Continue strict NPO, TPN Continue to monitor chest tube output Follow blood cultures 04/27/17, per ID would hold off on PICC placement until confirmed no growth for 48 hours Continue supportive care Discharge Planning: Anticipated Discharge Date: Unknown Barriers to Discharge: Unknown Care Management Discharge Needs: Needs Prior to Discharge: To Be Determined Additional Hospital Problems Problem Esophageal Perforation Recent diagnosis of cirrhosis w/ esophageal varices who presents on transfer from OSH with hematemesis s/p EGD at OSH c/b esophageal laceration. It is unlikely that this is the etiology of his massive hemoptysis, reportedly there were multiple varices that, in the background of cirrhosis is the likely etiology of his bleed. While he is requiring high doses of vasopressors, it is unlikely that the source of his shock is purely from his esophageal perforation given his lack of pleural effusion or free flowing contrast. 04/15/18: EGD showed 5cm esophageal laceration without active bleeding. 04/16/18: Right chest tube placed for effusion. 04/22/18: Extubated. 04/26/18: EGD: partial mucosal tear in mid esophagus. 04/27/18: Eesophagram showed persistent leak. 04/29/18: EGD 04/29: Esophageal stent successfully placed in Q3. Acute Respiratory Failure (Hcc) Acute pulmonary insufficiency following non-thoracic surgery requiring intubation. Respiratory status improved with placement of CT to sxn. A/P: Arrived to ICU intubated and sedated. Vent wean as able. Hydropneumothorax A/P: Continue to monitor CT output. Copd (Chronic Obstructive Pulmonary Disease) (Hcc) A/P: On mechanical ventilation. Vent wean as able. Hypotension A/P: Hypotension requiring vasopressor support on norepinephrine infusion to maintain MAP > 65, wean as tolerated. History of Hypertension Poorly controlled. A/P: Currently requiring vasopressor support. Consider initiation of antihypertensive regimen as appropriate. Acute Post-Operative Pain A/P: Optimize pain control with PRN Fentanyl, scheduled lidoderm patches. Type II Diabetes Mellitus (Hcc) A/P: Continue blood glucose control with SSI. Severe Protein-Calorie Malnutrition (Hcc) A/P: Strict NPO. Continue TPN. Epistaxis Endorses a long history of intermittent nosebleeds on the left. A/P: S/p nasal packing with Surgicel fibrillar. ENT following, appreciate recs. Mediastinitis Hospital course c/b mediastinitis with fevers an purulent chest tube output on vancomycin/aztreonam/diflucan. ID following. Follow blood cultures. Tobacco Abuse A/P: Encourage smoking cessation and continue education. Ckd (Chronic Kidney Disease) A/P: Cr 1.16. CKD. Avoid hypotension, nephrotoxic agents, and renally dose medications. BP 114/59 Pulse 78 Temp 37.3 ?C (99.1 ?F) (Oral) Resp 21 Ht 177.8 cm (5' 10) Wt 105.2 kg (231 lb 14.8 oz) SpO2 96% BMI 33.28 kg/m? Infusions: Norepinephrine Propofol CVICU Admission CXR: Reviewed. Neuro: Sedation, PERRL. Cardiovascular: Rhythm: regular rate and rhythm and Rate: sinus rhythm MAP: 74 mmHg Pacemaker : None ICD: No Peripheral pulses present: All present Pulmonary: Breath sounds equal Ventilator: Intubated Potential prolonged intubation : No Abdominal: Soft Continued need for urinary catheter: Yes - clinical indication: Patient post major surgery requiring fluid balance and input and output measurement. DAY OF SURGERY PLAN: Standard Protocol, intubated patient: Cardiovascular monitoring, stabilization of blood pressure and cardiac function, wean to extubate when ready per protocol. Pain control, glycemic control, DVT prophylaxis, antibiotic prophylaxis. SIGNATURE: Quiana Valentine APRN.CNP DATE of SERVICE: 04/29/2018 TIME of SERVICE: 6:25 PM CONSULT PROG Observed: 04/29/2018 Status: COMPLETED Source: [place] 4:17 PM [facility] REPOSITORY [facility] ID: [id number] Author: Doris Hammer (Pharmacist) Service: Pharmacy Author Type: Pharmacist Type: Consult Progress Note Filed: 04/29/2018 4:21 PM Note Text: PHARMACY VANCOMYCIN DOSING NOTE Patient Name: Lazaro Villafana Admission Date: 04/14/2018 Date of Consult: 04/29/2018 Time of Consult: 4:17 PM Indication: Pneumonia Goal Range: 10-20 mcg/mL RECOMMENDATIONS/PLAN: Pharmacy consulted for vancomycin dosing for Lazaro Villafana, a 52 year old, male who is being treated with vancomycin for pneumonia. 1. Patient is currently ordered vancomycin 1 g IV q12h. Today is day 8 of therapy. 2. The most recent vancomycin level was 14.4 mcg/mL drawn at 0148 on 04/26/18. This was an approximate 13-hour level on the 5th day of that current regimen. 3. The present dose of vancomycin is the recommended dosage for this patient at this time. Continue therapy as prescribed. 4. The next vancomycin level will be ordered for 5 to 7 days from last level collected, though might consider earlier level if there is a continued need for vasopressors (post-OR today) or as otherwise indicated. (Pharmacy will order) We will follow patient renal function, vancomycin levels and doses with you during the course of therapy. Additional recommendations will appear in follow up notes. If you have any questions, please contact Doris Hammer PharmD at . Age: [age] year old Allergies: ALLERGIES Allergen Reactions - Ciprofloxacin Unknown - Penicillin Unknown Tolerating cefepime Last 3 Encounter Wt Readings: Date: Wt: 04/14/2018 105.2 kg (231 lb 14.8 oz) 04/14/2018 97 kg (213 lb 13.5 oz) Last 1 Encounter Ht Readings: Date: Ht: 04/14/2018 177.8 cm (5' 10) CrCl: > 90 mL/min Temp (24hrs), Av.2 ?C (99 ?F), Min:37.1 ?C (98.8 ?F), Max:37.3 ?C (99.1 ?F) - Current Temp: 37.1 ?C (98.8 ?F) Labs BUN (mg/dL) Date Value 04/29/2018 39 (H) 04/28/2018 38 (H) 04/27/2018 42 (H) Creatinine (mg/dL) Date Value 04/29/2018 1.16 04/28/2018 1.21 04/27/2018 1.17 WBC (k/uL) Date Value 04/28/2018 7.63 04/27/2018 6.78 04/26/2018 7.02 Vancomycin Levels: Vancomycin, result (ug/mL) Date/Time Value 04/26/2018 0148 14.4 04/22/2018 0120 24.3 (H) DORIS HAMMER PharmD NURSING PROG Observed: 04/29/2018 Status: COMPLETED Source: [place] 2:39 PM [facility] REPOSITORY HNO ID: [id number] Author: Antonina (Rn) BLAYNE Diaz Service: Nursing Author Type: Registered Nurse Type: Nursing Progress Note Filed: 04/29/2018 2:39 PM Note Text: Nursing Progress: Topic: RESTRAINT NON-VIOLENT PATIENT NAME: Lazaro Villafana PATIENT LOCATION: G052 [id number] The patient demonstrates Attempting to Remove Medical Devices Vital to Medical Stability, Confusion as evidenced by the following behaviors pulling at lines and ett which pose an imminent danger to self or others. The following interventions were attempted but were not effective in protecting the patient's safety: IV/Feeding Bag/Pump Out of Vision, Medications Reviewed, Modify Environment, Modify Equipment, Bed in Low/Locked Position, Call Light Within Reach, Pain/Discomfort Relief Next, a comprehensive assessment was performed and warranted placing the patient in Soft Bilateral Wrists, the least restrictive restraint needed to protect the patient's safety. Ongoing safety assessments and evaluation for earliest removal of restraints will be performed. DATE: April 29, 2018 TIME: 2:39 PM Antonina Diaz RN ANEMatthew POST Observed: 04/29/2018 Status: COMPLETED Source: [place] 1:44 PM [facility] REPOSITORY HNO ID: [id number] Author: Ted Mackenzie MD Service: Anesthesiology Author Type: Anesthesiologist Type: Anesthesia PostOp Filed: 04/29/2018 1:46 PM Note Text: POST ANESTHESIA EVALUATION NOTE SERVICE DATE: 04/29/2018 SERVICE TIME: 12:42p : 1965 Vitals: 04/29/18 0005 04/29/18 0400 04/29/18 0800 04/29/18 1200 Temp: 37.2 ?C (99 ?F) 37.3 ?C (99.1 ?F) 37.2 ?C (99 ?F) 37.1 ?C (98.8 ?F) 04/29/18 1000 04/29/18 1100 04/29/18 1200 04/29/18 1300 Arterial BP 1: BP: 137/65 106/56 120/67 103/55 04/29/18 1000 04/29/18 1100 04/29/18 1200 04/29/18 1300 Pulse: 87 94 106 101 04/29/18 0800 04/29/18 0900 04/29/18 1000 04/29/18 1300 Resp: 23 23 16 18 04/29/18 1000 04/29/18 1100 04/29/18 1200 04/29/18 1300 SpO2: 95% 100% 91% 94% Validated Vital Signs: HR: 97; BP: 106/58; RR: 16; SpO2%: 96; Temperature: 37.3 POST ANES STATUS: PACU/ICU Patient Condition: Guarded Neurological Status: On intravenous sedation. Pulmonary Status: On invasive mechanical ventilation. 100% FIO2 Airway Control: Intubated on mechanical ventilation. Cardiovascular Status: Stable Pain: Adequately controlled Postoperative Nausea/Vomiting: No significant post operative nausea or vomiting Postoperative Hydration Status: Adequate. Intra-Operative Events: Acute pulmonary insufficiency following non-thoracic surgery See the [facility] record for the event detail Anesthetic Complications: None Recommendation: Continue current plan of care by ICU and CXR now, CT to suction Other Remarks: SIGNATURE: Ted Mackenzie MD PATIENT NAME: Lazaro Villafana DATE: April 29, 2018 TIME: 1:44 PM PAGER/CONTACT #: [phone] PLAN OF CARE Observed: 04/29/2018 Status: COMPLETED Source: [place] 1:21 PM [facility] REPOSITORY HNO ID: [id number] Author: Alec Cheung (Fel) Service: Gastroenterology Author Type: Fellow Type: Plan of Care Filed: 04/29/2018 1:27 PM Note Text: EGD 04/29: Esophageal stent successfully placed in Q3. See Epic note for more details Recommendations: - Stent removal in 4 weeks (order placed by id) - XR esophagram to assess for persistent leak post-procedurally - Remainder of care per primary team Alec Cheung MD GI Fellow April 29, 2018 1:22 PM XR CHEST 1V FRONTAL Observed: 04/29/2018 Status: F Source: [facility] 1:11 PM [facility] REPOSITORY * * *Final Report* * * DATE OF EXAM: Apr 29 2018 1:11PM TERENCE 5376 - XR CHEST 1V FRONTAL PORT / PROCEDURE REASON: Evaluate tube, line or lead position * * * * Physician Interpretation * * * * EXAMINATION: CHEST RADIOGRAPH (PORTABLE SINGLE VIEW AP) Exam Date/Time: 04/29/2018 1:11 PM Clinical History: Evaluate tube, line or lead position, MQ: [id number] Comparison: Same day 351 hrs RESULT: See impression. IMPRESSION: Lines, tubes, and devices: There is been interval placement of an esophageal stent. Endotracheal tube, left IJ venous catheter and right chest tube are in place. Lungs and pleura: Small to medium right pleural effusion is noted, which may be partially loculated. The locule along the right lung apex has increased since prior examination. No large pneumothorax is identified. Patchy reticular opacities are noted, likely related to pulmonary edema. Cardiomediastinal silhouette: Cardiac silhouette is enlarged with pulmonary venous congestion. Other: . Steel Turner: NIDHI Transcribe Date/Time: Apr 29 2018 2:10P Dictated by : RAJNI SELLERS MD This examination was interpreted and the report reviewed and electronically signed by: RAJNI SELLERS MD on Apr 29 2018 2:11PM EST [id number] CASE MANAGEM Observed: 04/29/2018 Status: COMPLETED Source: [place] 9:48 AM [facility] REPOSITORY HNO ID: [id number] Author: Rai (Rn) BLAYNE Kramer Service: Care Management Author Type: Registered Nurse Type: Care Mgt Progress Note Filed: 04/29/2018 9:51 AM Note Text: CARE MANAGEMENT PROGRESS NOTE SERVICE DATE: 04/29/2018 SERVICE TIME: 9:48 AM LOS: 15 days Patient remains in SICU now with nasal packing due to significant epistaxis and needed VM for oxygenation. Continues on TPN and with right chest tube. GI planning for esophageal stent today. PT recommendations remain tbd. Laser Specialist to follow for discharge planning pending POC and medical stability. Needs Prior to Discharge: To Be Determined SIGNATURE: Rai Kramer RN PATIENT NAME: Lazaro Villafana DATE: April 29, 2018 TIME: 9:48 AM PAGER/CONTACT #: [phone] OBSOLETE Observed: 04/29/2018 Status: COMPLETED Source: [place] 9:00 AM [facility] REPOSITORY Procedure (GASTPR) LAZARO VILLAFANA ([id number]) 1965 M Date Time Provider Department 04/29/18 9:00 AM RAD[facility]O [facility] During your visit today, we recorded the following information about you: Referring Provider: SCOTTY JERRY [[id number]] Allergies As of Date: 04/29/2018 Noted Allergy Reaction CIPROFLOXACIN 04/14/2018 16 - Unknown PENICILLIN 04/14/2018 16 - Unknown Comments: Tolerating cefepime Date Reviewed: 04/29/2018 Reviewed by: Delisa (Rn) BLAYNE Hawley - Fully Assessed Reason for Visit: Procedure [88] Cmt: EGD EUS Primary Visit Diagnosis:Mild protein-calorie malnutrition (HCC) [E44.1] Order(s):EGD [0737747] Order #: [id number]. #:[id number] Prescriptions as of 04/29/2018 Sig: AMLODIPINE 10 MG TABLET Take 10 mg by mouth once lynda* METFORMIN 500 MG TABLET Take 500 mg by mouth twice da* LOSARTAN 50 MG TABLET Take 50 mg by mouth once lynda* LACTULOSE 10 GRAM/15 ML ORAL * GLYBURIDE 5 MG TABLET Take 5 mg by mouth twice lynda* HYDROXYZINE PAMOATE 50 MG CAP* Take 50 mg by mouth twice shikha* NOREPINEPHRINE IV INFUSION 16* Inject 0.6-30 mcg/min intrave* METRONIDAZOLE 500 MG/100 ML-S* Inject 100 mL intravenously e* AZTREONAM IVPB 1 G IN D5W 100* Inject 100 mL intravenously e* PROPOFOL 10 MG/ML INTRAVENOUS* Inject 0.485-5.82 mg/min intr* PANTOPRAZOLE 40 MG INTRAVENOU* Inject 10 mL intravenously tw* OCTREOTIDE IV INFUSION Inject 50 mcg/hr intravenousl* Problem List As Of Date 04/29/2018 Noted Resolved Upper GI bleed [K92.2] INVALID FOR* GI bleed [K92.2] INVALID FOR* More... High anion gap metabolic acidosis [E87.2] INVALID FOR* Hemorrhagic shock (HCC) [R57.8] INVALID FOR* Hyperglycemia [R73.9] INVALID FOR* Alcoholic cirrhosis (HCC) [K70.30] INVALID FOR* COPD (chronic obstructive pulmonary disease) (H*INVALID FOR* More... Esophageal perforation [K22.3] INVALID FOR* More... Mild protein-calorie malnutrition (HCC) [E44.1] INVALID FOR* Hypernatremia [E87.0] INVALID FOR* Secondary thrombocytopenia [D69.59] INVALID FOR* Acute post-operative pain [G89.18] INVALID FOR* More... Acute respiratory insufficiency [R06.89] INVALID FOR* Consolidation of right lower lobe of lung (HCC)*INVALID FOR* Secondary esophageal varices without bleeding (*INVALID FOR*04/26/2018 Tobacco abuse [Z72.0] INVALID FOR* More... Acute blood loss anemia [D62] INVALID FOR*04/26/2018 Mediastinitis [J98.51] INVALID FOR* More... Fever [R50.9] INVALID FOR* Leukocytosis [D72.829] INVALID FOR* Coagulopathy (HCC) [D68.9] INVALID FOR*04/26/2018 Severe protein-calorie malnutrition (HCC) [E43] INVALID FOR* More... Delirium due to general medical condition [F05] INVALID FOR* Hypotension [I95.9] INVALID FOR* More... Epistaxis [R04.0] INVALID FOR* More... Acute respiratory failure (HCC) [J96.00] INVALID FOR* More... Type II diabetes mellitus (HCC) [E11.9] INVALID FOR* More... History of hypertension [Z86.79] INVALID FOR* More... Hydropneumothorax [J94.8] INVALID FOR* More... CKD (chronic kidney disease) [N18.9] INVALID FOR* More... Encounter Status:Closed by MANUEL LIZARRAGA on 05/02/18 NUTRITION Observed: 04/29/2018 Status: COMPLETED Source: [place] 8:54 AM [facility] REPOSITORY [facility] ID: [id number] Author: Dalia Preston Service: NST-Nutrition Support Team Author Type: Registered Dietitian Type: Nutrition Filed: 04/29/2018 3:46 PM Note Text: NUTRITION SUPPORT TEAM PROGRESS NOTE SERVICE DATE: 04/29/2018 SERVICE TIME: 11:17 AM RECOMMENDED DIAGNOSIS: NO MALNUTRITION IDENTIFIED per Registered Dietitian on 04/28 NUTRITION CARE PLAN Intervention: 1. Continue TPN tonight: 2 liters over 24 hours 120 g 15% AA 1170 kcals dextrose Increase sodium phosphate to 25 mmol 70 units RHI in bag 100 mg thiamin 2. ?250ml IVPB lipids 20% fat emulsion MWF started 1/9 Monitor and Evaluation: Goal: Meet >75% of estimated needs Monitor fluid/electrolyte balance Monitor labs, I/Os, vital signs, weight Discharge Nutrition Recommendations: To be determined Per HPI: 52 year old male with a history of type II DM, poorly controlled HTN, CKD, COPD, tobacco smoker 2-3 PPD, alcohol use disorder with recent diagnosis of cirrhosis was transferred from [facility] with an esophageal perforation seen on EGD. Patient initially presented with hematemesis and melena with accompanying dizziness and shortness of breath. Transferred to [facility] on 04/14 for further management. s/p EGD 04/15?which showed a deep esophageal tear. ?Plan for a minimum of NPO x 2 weeks. ?04/16 Right chest tube placed for effusion. ?Esophagram (04/27/18): Persistent right mid-esophageal perforation; GI c/s and plan for esophageal stent placement tomorrow Interval History: Esophageal stent placed today. Intake/Output Summary (Last 24 hours) at 04/29/18 0659 Gross per 24 hour Intake 3333 ml Output 2550 ml Net 783 ml +1292 ml D5W -2400 ml urine -150 ml chest tube 2x BM Tmax: Temp (24hrs), Av.2 ?C (98.9 ?F), Min:37 ?C (98.6 ?F), Max:37.3 ?C (99.1 ?F) Edema: generalized, LE 2+ Enteral access: n/a; plan for EGD guided post pyloric feeding tube placement; pt pulled SBFT Parenteral access: left IJ TLC placed 04/27 Pertinent medications: diflucan, magnesium (2 g), protonix, glycophos (15 mmol), vancomycin Labs reviewed Nutritional Intake: Intake History BI DATA ARCHITECT: Unable to determine Current intake: 04/17: Average 5 day intakes meeting <50% of estimated energy need.s started on PN 04/17 due to esophageal tear, plan for NPO x 2 weeks 04/18: currently goal kcals, PN 940 kcals, 110 g pro + propofol 765 kcals/day 1: TPN wirh orders 04/17 - 04/19 to provide 110gms protein and 940 claories + additional calories from propofol (04/19 provided 626 calories) 04/21 - 04/22: PN with orders 04/20 - 04/21 to provide 100gms protein and 1000 calories + additional calories from propofol 04/25: PN with orders 04/22 - 04/24 to provide 110gms protein and 1040 calories 04/26 - 04/27: PN with orders 04/25 - 04/26 to provide 120gms protein and 1600 calories 04/28: PN with orders 04/27 to provide 120 gms protein and 1650 calories 04/29: PN with orders 04/28 to provides 120 g protein and 1650 kcals Current Diet Order DIET NPO Lines and Drains: Central Line Triple Lumen 04/27/18 Non-tunneled Left Neck (Active) Chest Tube 04/16/18 2100 Right 28 Fr (Active) Height: 177.8 cm (5' 10) Admission Weight: 106.1 kg (233 lb 14.5 oz) Current Weight: 105.2 kg (231 lb 14.8 oz) Body mass index is 33.28 kg/m?. Usual body weight Unable to determine No weight history available. Last Wt 04/28/18 : 105.2 kg (231 lb 14.8 oz) 04/14/18 : 97 kg (213 lb 13.5 oz) Estimated nutrition goals: [place] body weight: 75.4 kg Dosing weight: 106 kg (04/14; BMI 33.5kg/m2) Calorie needs 0679-3010 kilocalories determined by = 15-20 kcals/kg Dosing weight Protein needs: 90 - 121 grams determined by 1.2 -1.6g/kg ideal weight - due to CKD Recent Labs 04/29/18 0200 04/28/18 0106 GLUC 173* -- BUN 39* -- CREAT 1.16 -- NA 142 -- K 4.6 -- CHLOR 111* -- CO2 21* -- P 3.3 3.6 HB -- 7.8* HCT -- 25.5* WBC -- 7.63 MG 2.0 1.9 MNT Billing Type: Re-assess/15 min 2 units SIGNATURE: Dalia Preston RD, LD, [facility] PATIENT NAME: Lazaro Villafana DATE: April 29, 2018 TIME: 8:54 AM PAGER: [phone] THERAPY NT Observed: 04/29/2018 Status: COMPLETED Source: [place] 8:25 AM [facility] REPOSITORY HNO ID: [id number] Author: Ekaterina (Pt) Sagrario Service: Physical Therapy Author Type: Physical Therapist Type: Therapy (PT/OT/Speech/Resp) Filed: 04/29/2018 8:25 AM Note Text: PHYSICAL THERAPY MISSED VISIT SERVICE DATE: 04/29/2018 SERVICE TIME: 824 to 824 ROOM: [place] [id number] Attempted Treatment. Patient not seen. Declined PT before his procedure. Will reattempt as able. SIGNATURE: Ekaterina Zabala PT PATIENT NAME: Lazaro Villafana DATE: April 29, 2018 TIME: 8:25 AM CONSULT PROG Observed: 04/29/2018 Status: COMPLETED Source: [place] 8:06 AM [facility] REPOSITORY HNO ID: [id number] Author: Francois Gann Service: Thoracic Surgery Author Type: Resident Type: Consult Progress Note Filed: 04/29/2018 8:08 AM Note Text: [facility] SURGERY CONSULT PROGRESS NOTE Lazaro Villafana [id number] PRIMARY SERVICE: HOSPITAL DAY: # 15 INTERVAL HISTORY Epistaxis overnight. Managed by ENT. No other acute events. PHYSICAL EXAM BP 125/76 Pulse 98 Temp 37.3 ?C (99.1 ?F) (Oral) Resp 29 Ht 177.8 cm (5' 10) Wt 105.2 kg (231 lb 14.8 oz) SpO2 94% BMI 33.28 kg/m? Intake/Output Summary (Last 24 hours) at 04/29/18 0806 Last data filed at 04/29/18 0700 Gross per 24 hour Intake 3333 ml Output 2465 ml Net 868 ml Constitutional: No acute distress HEENT: EOM's intact Resp: Respiratory effort: normal, CT SS, no air leak, on suction Cardiovascular: Cardiac: Regular rate AND rhythm Integumentary: Warm Musculoskeletal: No deformities Neurological/Psychiatric: Alert, some mild confusion Additional systems reviewed: No additional systems reviewed ? DATA Recent Labs 04/28/18 0106 04/27/18 0237 WBC 7.63 6.78 HB 7.8* 7.3* HCT 25.5* 23.8* PLT 145* 132* Recent Labs 04/29/18 0200 04/28/18 1236 04/28/18 0106 04/27/18 0237 NA 142 144 -- 149* K 4.6 4.9 -- 4.8 CO2 21* 23 -- 21* BUN 39* 38* -- 42* CREAT 1.16 1.21 -- 1.17 GLUC 173* 123* -- 133* MG 2.0 -- 1.9 1.9 IMAGING I personally reviewed: CXR ASSESSMENT AND PLAN 52 year old male with multiple medical comorbidities now with likely partial thickness esophageal perforation, putatively from S-B tube placement at OSH. It is unlikely that this is the etiology of his massive hemoptysis, reportedly there were multiple varices that, in the background of cirrhosis is the likely etiology of his bleed. While he is requiring high doses of vasopressors, it is unlikely that the source of his shock is purely from his esophageal perforation given his lack of pleural effusion or free flowing contrast. 04/15 EGD showed 5cm esophageal laceration without active bleeding. 04/16 Right chest tube placed for effusion. 04/22 extubated. 04/22 Patient pulled NGT. 04/[address] by 4cm. 04/26 EGD, well healing esophageal tear. 04/27 esophagram shows persistent leak. ?? Plan - no surgical intervention at this point - daily CXR - STRICT NPO - possible stent per GI today - Image guided pigtail placement to drain fissure fluid collection - will continue to follow ? Plan discussed with Dr. Soto. ? Francois Gann MD,PhD Pager [phone] 04/29/2018 8:06 AM CONSULT PROG Observed: 04/29/2018 Status: COMPLETED Source: [place] 6:57 AM [facility] REPOSITORY HNO ID: [id number] Author: Alec Cheung (Fel) Service: Gastroenterology Author Type: Fellow Type: Consult Progress Note Filed: 04/29/2018 6:58 AM Note Text: Gastroenterology Consult Service Progress Note Date of Service: April 29, 2018 Patient: Lazaro Villafana Medical Record: [id number] Reason for Initial Consult: Esophageal tear Requesting Service: SICU Impression: Lazaro Villafana is a 52 year old gentleman with history notable for presumed EtOH related cirrhosis with risk factors for BOONE with disease course c/b portal HTN (EV) who presented with complaints?of several day history of nausea, vomiting, melena, and hematemesis prompting tony tube placement at that time (unsure if gastric vs. Gastric and esophageal balloon inflated) found to have partial thickness esophageal tear and large EV. ? His hospital course c/b mediastinitis with fevers an purulent chest tube output on vancomycin/aztreonam/diflucan, respiratory failure requiring intubation now extubated (04/22) and stable from pulmonary standpoint, and on TPN. ? EGD (04/14/18): ?4:20 PM - GE junction at 45 cm - Grade II Esophageal varices, 2 columns not actively bleeding - Laceration with adherent clot from 31 - 38 cm from incisors. ? ? EGD (04/15/18): - Deep mucosal tear 31-38 cm from incisors - Large varices in lower third of esophagus - Hematin in stomach - Scope not advanced to duodenum to avoid additional pressure on esophagus ? EGD (04/26/18): - Mucosal tear in middle third of esophagus from 31 to 38 cm healing well - PHG ? XR Esophagram (04/27/18): Persistent right mid-esophageal perforation ? GI re-consulted for possible esophageal stent placement. ? Plan:? -Will plan for esophageal stent placement today at 9 AM in Q3 under fluoroscopy - Ensure active type and screen, Hgb >7, Plt > 50K, and INR <1.7 in anticipation of procedure - Continue broad spectrum antibiotics - Strict NPO Alec Cheung MD Gastroenterology AND Hepatology Fellow Discussed with staff. SIGNATURE: Alec Cheung MD PATIENT NAME: Lazaro Villafana DATE: April 29, 2018 TIME: 6:57 AM PAGER/CONTACT #: [phone] CONSULT PROG Observed: 04/29/2018 Status: COMPLETED Source: [place] 5:[address] [facility] REPOSITORY HNO ID: [id number] Author: Muriel Flanagan Service: Infectious Disease Author Type: Physician Type: Consult Progress Note Filed: 04/29/2018 10:09 PM Note Text: INFECTIOUS DISEASES PROGRESS NOTE Patient Name: Lazaro Villafana Account #: Data Unavailable Admission Date: 04/14/2018 Date of Evaluation: 04/29/2018 Time of Evaluation: 10:20 AM INTERVAL HPI: Afebrile x 24 hours. OOB with physical therapy. Plans for EGD with stent placement noted today. Metronidazole 04/15 Fluconazole 04/15 Vancomycin 04/20 Aztreonam 04/22 MEDICATIONS: Current hospital medications: sodium chloride 0.65 % 2 [place] (AYR, OCEAN) 2 [place] EACH NOSTRIL 5X/DAY nasal ointment ([facility]) TOPICAL BID Parenteral Nutrition - Adult INTRAVENOUS ONCE TPN (2200 START) dextrose 5% in water iv infusion 5-30 mL/hr INTRAVENOUS CONTINUOUS fat emulsion infusion 20% (INTRALIPID) 250 mL INTRAVENOUS MO-WE-FR (10PM) metoprolol 10 mg injection (LOPRESSOR) 10 mg INTRAVENOUS q 6 HR OLANZapine orally disintegrating 10 mg tab(s) (ZyPREXA ZYDIS) 10 mg ORAL AT BEDTIME lidocaine 5 % 1 Patch (LIDODERM) 1 Patch TRANSDERMAL DAILY lidocaine patch - REMOVE OTHER AT BEDTIME lidocaine - VERIFY PATCH OTHER q 8 H labetalol 10 mg injection syringe (NORMODYNE) 10 mg INTRAVENOUS q 2 H PRN insulin glargine 20 Units pen (long acting) (LANTUS SOLOSTAR, BASAGLAR KWIKPEN) 20 Units SUBCUTANEOUS AT BEDTIME vancomycin iv piggyback 1 g in D5W 200 mL (VANCOCIN) 1 g INTRAVENOUS q 12 HR aztreonam 2 g in D5W 100 mL MB+ (AZACTAM) 2 g INTRAVENOUS q 6 HR heparin 5,000 Units injection 5,000 Units SUBCUTANEOUS q 12 H fluconazole 400 mg in NaCl (iso-osmotic) 200 mL (DIFLUCAN) 400 mg INTRAVENOUS DAILY vancomycin dosing and monitoring per pharmacy OTHER As Directed insulin regular human injection (short acting) (NovoLIN R,HumuLIN R) SUBCUTANEOUS q 6 H potassium chloride iv piggyback 20 mEq/100 mL 20 mEq INTRAVENOUS PRN potassium chloride 20-80 mEq CUP 20-80 mEq ORAL/FEEDING TUBE PRN magnesium sulfate in water 2 g in sterile water 50 ml 2 g INTRAVENOUS PRN sodium glycerophosphate 15 mmol in D5W 250 mL (GLYCOPHOS) 15 mmol INTRAVENOUS PRN sodium glycerophosphate 30 mmol in D5W 250 mL (GLYCOPHOS) 30 mmol INTRAVENOUS PRN sodium glycerophosphate 45 mmol in D5W 250 mL (GLYCOPHOS) 45 mmol INTRAVENOUS PRN dextrose 40 % 15 g 15 g ORAL PRN glucagon 1 mg injection (GLUCAGEN) 1 mg INTRAMUSCULAR PRN dextrose 50 % 12.5 g injection 12.5 g INTRAVENOUS PRN NaCl 0.9% 3-5 mL 3-5 mL INTRAVENOUS q 12 H fentaNYL 50 mcg/mL 25-50 mcg injection (SUBLIMAZE) 25-50 mcg INTRAVENOUS q 1 H PRN metroNIDAZOLE 500 mg PREMIX piggyback (FLAGYL) 500 mg INTRAVENOUS q 8 H ipratropium-albuterol 3 mL nebulizer solution (DUONEB) 3 mL INHALATION q 4 H PRN pantoprazole 40 mg injection (PROTONIX) 40 mg INTRAVENOUS BID AC (0600/1600) PHYSICAL EXAM: BP 133/64 Pulse 100 Temp 37.2 ?C (99 ?F) (Oral) Resp 16 Ht 177.8 cm (5' 10) Wt 105.2 kg (231 lb 14.8 oz) SpO2 94% BMI 33.28 kg/m? Lines: Nontunnelled triple lumen 04/27 Left neck ?GEN: conversant, no distress SKIN: No lesions noted. EYES: PERRLA NECK: L nontunnelled triple lumen catheter with no overlying erythema, swelling or warmth. LUNGS: clear to auscultation, no wheezes, or crackles. HEART: ?Regular rate/rhythm, normal heart sounds, and no murmurs. ABDOMEN: Soft, epigastric tenderness, hypoactive BS EXTREMITIES: Edema of hands b/l, no LE edema. + right sided chest tube with unchanged, chunky fluid Labs: WBC 7.63, Hgb 7.8, Plt 145, Cr 1.16 +686 cc/24 hours Micro and radiology personally reviewed 04/14/18: Quantiferon gold testing negative for TB 04/14/18: Blood cultures 04/19 no growth 04/14/18: MSSA nasal swab positive 04/17/18: MSSA nasal swab positive 04/17/18: Blood cultures 2/2 no growth 04/20/18: Blood cultures 2/2 no growth 04/20/18: Tracheal aspirate cultures no organisms on gram stain and no growth on culture 04/22/18: Fungitell negative 04/23/18: Sputum cultures normal abby 04/24/18: Staphylococcal nasal swab negative 04/27/18: Blood cultures 2/[address] Chest 04/17/18: IMPRESSION: 1. ?NEW MULTIFOCAL CONSOLIDATIVE/GROUNDGLASS OPACITIES PREDOMINANTLY LEFT UPPER LOBE AND LINGULA, MAY REPRESENT MULTIFOCAL PNEUMONIA/ASPIRATION PNEUMONITIS, HEMORRHAGE OR ASYMMETRIC EDEMA. ?RADIOGRAPHIC FOLLOW-UP IS RECOMMENDED.. 2. ?BILATERAL LOWER LOBE AIRSPACE OPACITIES WITH VOLUME LOSS, RIGHT GREATER THAN LEFT, MOST LIKELY ATELECTASIS WITH POSSIBLE SUPERIMPOSED INFECTIOUS PROCESS. 3. ?LIMITED EVALUATION OF PREVIOUSLY SEEN MID ESOPHAGEAL CONTRAST EXTRAVASATION/TEAR. ?SMALL FOCI OF RIGHT-SIDED PNEUMOMEDIASTINUM, NOT SIGNIFICANTLY CHANGED. ?SMALL FOCI OF PNEUMOMEDIASTINUM HAVE DEVELOPED SUPERIORLY. ?THESE COULD BE FROM RECENT INTERVENTION. 4. SMALL BILATERAL PLEURAL COLLECTIONS HAVE SLIGHTLY INCREASED COMPARED TO PRIOR EXAM. ?THE AIR COMPONENTS OF THE RIGHT PLEURAL COLLECTION ARE NEW SINCE PREVIOUS EXAM, LIKELY RELATED TO ?INTERVAL PLACEMENT OF RIGHT APICAL CHEST TUBE. US upper extremities 04/20/18: IMPRESSION ? RIGHT SIDE - DEEP VEINS Technically limited study. Negative for acute deep vein thrombosis in vessels visualized. Unable to visualize the internal jugular vein due to IV lines and bandages. RIGHT SIDE - SUPERFICIAL VEINS Acute superficial thrombophlebitis in the cephalic vein antecubital fossa to wrist. Acute superficial thrombophlebitis in the basilic vein mid upper arm to wrist. Acute superficial thrombophlebitis in the median cubital vein at the antecubital fossa. ? LEFT SIDE - DEEP VEINS Spontaneous and respirophasic flow noted in the subclavian vein at proximal. CT Chest 04/21/18: IMPRESSION: 1. ?Unchanged right hydropneumothorax with right thoracostomy tube and associated right lower lobe atelectasis. ?Superimposed infection/aspiration cannot be excluded. 2. ?Groundglass opacities in the left upper lobe and lingula, likely infectious/inflammatory. ?Left apical consolidation has decreased since the prior exam. 3. ?Circumferential wall thickening of the esophagus. ?Known esophageal tear is not visualized on this examination. 4. ?Mediastinal lymphadenopathy, likely reactive. CT Chest 04/24/18: IMPRESSION: 1. Small to medium-sized right loculated hydropneumothorax with associated right pleural thickening and adjacent right lower lobe atelectasis/consolidation (most likely due to infection), without significant change. Right thoracostomy tube stable in position. 2. Scattered ground-glass opacities within the upper lobes, new within the right upper lobe and stable to slightly decreased in the left upper lobe. These are most likely infectious/inflammatory in origin. Additional small ground-glass and small consolidative opacities within the inferior left lower lobe with adjacent centrilobular nodular opacities are most likely infectious and, in this location, may be related to aspiration. 3. Interval resolution of the left pleural effusion with overall decreased atelectasis in the left lower lobe. 4. Thoracic lymphadenopathy, likely reactive. 5. Known esophageal perforation; small locules of gas extending from the level of the distal esophagus into the right pleural space (images 90-93) may correspond to the site of perforation. ? EGD 04/27/18: Impression: ? - Mucosal tear in the middle third of the esophagus ? healing well. ? - Portal hypertensive gastropathy. ? - Normal examined duodenum. ? - Feeding tube placement was successfully performed. ? Please confirm placement with KUB. ? - No specimens collected. Esophagram 04/27/18: PERSISTENT RIGHT MIDESOPHAGEAL PERFORATION DESCRIBED, CORRELATING WITH PRIOR. CT Chest 04/28/18: IMPRESSION: 1. ?Small to medium-sized right sided hydropneumothorax is stable in size since the prior chest CT dated 04/24/2018 with right thoracostomy tube in stable position. ?Adjacent dependent airspace opacity primarily in the right lower lobe has mildly improved in the interval and most likely represents either atelectasis or pneumonia/aspiration. 2. ?Previously seen bilateral airspace opacities, some of which were ground-glass or centrilobular in distribution have overall improved although have not resolved and may be due to either edema and/or infectious/inflammatory in etiology such as due to aspiration. ?No new airspace opacity has developed in the interval. 3. ?Persistent linear tract of gas extending from the right lateral mid to distal aspect of the esophagus which communicates with the right pleural space, in keeping with the known fistula as seen on the recent esophagram study. ?High attenuation material in the dependent right pleural space is nonspecific and may represent either contrast material from an esophagram study versus blood products. ?Correlate with the chest tube output for the presence of blood. 4. ?Stable mediastinal and right hilar lymphadenopathy, probably reactive. 5. ?Mild ascites in the upper abdomen, unchanged. IMPRESSION / PLAN 52 yo M with a h/o cirrhosis, EtoH related, CKD, COPD and reported + PPD in the past. Currently no clinical or imaging evidence of active pulmonary TB. Presenting with hemorrhagic shock secondary to hematemesis/esophageal tear c/b pneumomediastinum; no surgical intervention planned at this time. EGD 04/26/18 with reported improvement in esophageal tear (31-38cm). Plans for PICC for TPN and GI stent placement via EGD noted. Plan: - continue vancomycin (goal trough 15-25), aztreonam, metronidazole, fluconazole as ordered for now, will likely continue antibiotics until blood cultures finalize - will follow blood cultures 04/27/17, would hold off on PICC placement until confirmed no growth for 48 hours - order HIV Ag/Ab and Hepatitis C Antibody screening Will discuss with attending, Perla Delgado PGY4 ID STAFF I evaluated the patient and personally participated in the jang components. I agree with the fellow's findings and plan as documented and have discussed the case and management of the patient's care with the fellow. I have reviewed and verified pertinent data. Intubated following EGD On pressor No new fevers Maintain present antibiotics for now Dr. Caro Nielsen will be available this weekend. Please call with questions. Dr. Marguerite Li will resume service on Wednesday. Muriel Flanagan MD Pager: [phone] April 29, 2018 PROGRESS Observed: 04/29/2018 Status: COMPLETED Source: [place] 5:[address] [facility] REPOSITORY HNO ID: [id number] Author: Shelby Kumar) Keenan Camara MD Service: General Surgery Author Type: Resident Type: Progress Notes Filed: 04/29/2018 9:10 AM Note Text: Acute Care Surgery PROGRESS NOTE Lazaro Villafana [id number] 04/29/2018 ASSESSMENT/PLAN: Lazaro Villafana is a 52 year old male with PMHx type II DM, poorly controlled HTN, CKD, COPD, tobacco smoker 2-3 PPD, alcohol use disorder with recent diagnosis of cirrhosis w/ esophageal varices who presents on transfer from OSH with hematemesis s/p EGD at OSH c/b esophageal laceration that appears to be contained; MELD >?20, currently with R-sided chest tube for hydropneumothorax, NPO and on TPN. Intermittent fevers. EGD done 04/26 with finding of partial mucosal tear in mid esophagus. Esophagram (04/27) showing persistent leak in esophagus. - Continue strict NPO, TPN - Remains intermittently febrile - GI to do EGD w/ stent placement today - Hgb stable - Continue to monitor chest tube output - Continue supportive/SICU care Per discussion between Dr Jerry and Dr Soto the patient's care will be transition to Thoracic Surgery care. Thoracic Surgery will be primary team General Surgery will sign off now - we will be available as needed. Please call with question Plan to be discussed with Attending, Dr. Yony Camara MD General Surgery PGY-5 Pager: [phone] SUBJECTIVE 24 hour events: No acute events Pain is well controlled on current regimen. Mental status remains stable DIET NPO OBJECTIVE Intake/Output Summary (Last 24 hours) at 04/29/18 0518 Last data filed at 04/29/18 0500 Gross per 24 hour Intake 3571.3 ml Output 2550 ml Net 1021.3 ml PHYSICAL EXAM: BP 133/64 Pulse 100 Temp (Src) 99 (Oral) Resp 16 Ht 5' 10 (1.78m) Wt 231 lb 14.8 oz (105.2kg) SpO2 94% BMI 33.28 kg/(m2). Gen: Awake, alert Lungs: Breathing comfortably Abdomen:soft, not tender Ext: No edema, SCDs in place DATA: Date 04/28/18699 - 04/29/1865804/29/18699 - 04/30/18 0659 Shift 7411-5356 9174-5956 5384-7932 24 Hour Total 2094-8066 2636-1712 4635-5753 24 Hour Total I N T A K E IV 949 949 D5W 721 721 Vancomycin IV 200 200 Dexmedetomidine IV 28 28 TPN/PPN 874 874 TPN 874 874 Shift Total 1823 1823 O U T P U T Urine 1035 932 394 1570 Void (ml) 325 477 696 1971 Output ([REMOVED] Indwelling Urinary Catheter 04/25/18 1916 Mcclain 16 Fr 04/28/18 1140) 710 710 Chest Tube 0 0 Chest Tube Output (Chest Tube 04/16/18 2100 Right 28 Fr) 0 0 # of BMs Stool Incontinence 1 x 1 x 2 x Number of BMs 1 x 1 x 2 x Shift Total 1035 234 856 2782 Weight (kg) 105.2 105.2 105.2 105.2 105.2 105.2 105.2 105.2 Diagnostic tests reviewed for today's visit: Most recent labs and imaging results. CBC, Coags, BMP, Mg, Phos Recent Labs 04/29/18 0200 04/28/18 1236 04/28/18 0106 04/27/18 0237 04/26/18 1024 WBC -- -- 7.63 6.78 -- HB -- -- 7.8* 7.3* -- HCT -- -- 25.5* 23.8* -- PLT -- -- 145* 132* -- NA 142 144 -- 149* -- K 4.6 4.9 -- 4.8 -- CHLOR 111* 113* -- 116* -- CO2 21* 23 -- 21* -- BUN 39* 38* -- 42* -- CREAT 1.16 1.21 -- 1.17 -- GLUC 173* 123* -- 133* -- IC -- -- -- -- 1.13 CA 7.6* 8.0* -- 8.0* -- MG 2.0 -- 1.9 1.9 -- P 3.3 -- 3.6 3.9 -- XR CHEST 1V FRONTAL Observed: 04/29/2018 Status: F Source: [facility] 3:58 AM [facility] REPOSITORY * * *Final Report* * * DATE OF EXAM: Apr 29 2018 3:58AM TERENCE 5376 - XR CHEST 1V FRONTAL PORT / PROCEDURE REASON: Acute respiratory illness * * * * Physician Interpretation * * * * CHEST RADIOGRAPH (PORTABLE SINGLE VIEW AP) Exam Date/Time: 04/29/2018 3:58 AM Indications: Acute respiratory illness MQ: [id number] Comparison: 1 day earlier RESULTS: See Impression. IMPRESSION: Lines, Tubes, and Devices: Stable support lines and tubes. Lungs and Pleura: Right effusion and overlying opacity unchanged. No pneumothorax. Cardiomediastinal silhouette: Stable cardiac silhouette. Steel Turner: NIDHI Transcribe Date/Time: Apr 29 2018 7:18A Dictated by : JUANCARLOS AHUMADA MD This examination was interpreted and the report reviewed and electronically signed by: JUANCARLOS AHUMADA MD on Apr 29 2018 7:19AM EST [id number] CONSULT Observed: 04/29/2018 Status: COMPLETED Source: [place] 3:[address] [facility] REPOSIT[facility] O ID: [id number] Author: Annalee Weber Service: Otolaryngology Author Type: Resident Type: Consults Filed: 04/29/2018 3:32 AM Note Text: OTOLARYNGOLOGY EPISTAXIS CONSULT HANDP Patient Name: Lazaro Villafana CHIEF COMPLAINT: Epistaxis HPI: Lazaro Villafana is a 52 year old male with a history of ETOH cirrhosis c/b portal HTN and EV who presented with significant GI bleed found to have a partial thickness esophageal tear. He endorses a long history of intermittent nosebleeds on the left. His nurse reports he has been bleeding since yesterday despite holding pressure and makeshift packings. The bleeding has always been from the left. Not on any AC PAST MEDICAL HISTORY: PAST MEDICAL HISTORY Diagnosis Date - Cirrhosis (HCC) - COPD (chronic obstructive pulmonary disease) (HCC) - Diabetes (HCC) - ETOH abuse - Hypertension PAST SURGICAL HISTORY: No past surgical history on file. FAMILY HISTORY: No family history on file. SOCIAL HISTORY: Social History Substance Use Topics - Smoking status: Current Every Day Smoker - Smokeless tobacco: Not on file - Alcohol use Yes MEDICATIONS: CURRENT INPATIENT MEDICATIONS: amLODIPine (NORVASC) 10 mg tablet Take 10 mg by mouth once daily. metFORMIN (GLUCOPHAGE) 500 mg tablet Take 500 mg by mouth twice daily. losartan (COZAAR) 50 mg tablet Take 50 mg by mouth once daily. lactulose (DUPHALAC, CONSTULOSE) 10 gram/15 mL solution glyBURIDE (DIABETA) 5 mg tablet Take 5 mg by mouth twice daily. hydrOXYzine pamoate (VISTARIL) 50 mg capsule Take 50 mg by mouth twice daily as needed. NORepinephrine (LEVOPHED) 16 mg in D5W 250 mL Inject 0.6-30 mcg/min intravenously continuous. metroNIDAZOLE (FLAGYL) 500 mg/100 mL Inject 100 mL intravenously every 8 hours. aztreonam (AZACTAM) 1 g in D5W 100 mL Inject 100 mL intravenously every 8 hours. propofol infusion (DIPRIVAN) 10 mg/mL injection Inject 0.485- 5.82 mg/min intravenously continuous. pantoprazole (PROTONIX) 40 mg injection Inject 10 mL intravenously twice daily. octreotide 500 mcg in D5W 100 mL Inject 50 mcg/hr intravenously continuous. ALLERGIES: ALLERGIES Allergen Reactions - Ciprofloxacin Unknown - Penicillin Unknown Tolerating cefepime COMPLETE REVIEW OF SYSTEMS: Unable to obtain due to patient's critical illness PHYSICAL EXAM: Patient Vitals for the past 24 hrs: BP Temp Temp src Pulse Resp SpO2 Weight 04/29/18 0100 148/72 - - 120 21 93 % - 04/29/18 0005 - 37.2 ?C (99 ?F) Oral - - - - 04/29/18 0000 142/77 - - 90 24 94 % - 04/28/18 2300 140/72 - - 88 22 95 % - 04/28/18 2200 136/84 - - 106 24 96 % - 04/28/18 2100 144/89 - - 106 27 97 % - 04/28/18 2000 158/85 37.2 ?C (99 ?F) Oral 92 24 97 % - 04/28/18 1900 145/72 - - 85 27 99 % - 04/28/18 1800 128/72 - - 86 26 97 % - 04/28/18 1700 141/73 - - 97 26 97 % - 04/28/18 1600 144/76 37 ?C (98.6 ?F) Oral 97 27 93 % - 04/28/18 1500 139/74 - - 95 27 98 % - 04/28/18 1400 148/78 - - 92 27 97 % - 04/28/18 1300 172/83 - - 99 30 96 % - 04/28/18 1200 130/69 - - 81 26 97 % - 04/28/18 1100 131/67 - - 106 28 96 % - 04/28/18 1000 138/80 - - 92 28 95 % - 04/28/18 0900 136/84 - - 92 26 96 % - 04/28/18 0800 145/68 36.8 ?C (98.2 ?F) Oral 87 27 95 % - 04/28/18 0700 141/63 - - 90 23 94 % - 04/28/18 0600 141/65 - - 83 25 97 % 105.2 kg (231 lb 14.8 oz) 04/28/18 0500 145/65 - - 91 16 95 % - 04/28/18 0400 140/63 (!) 38.2 ?C (100.8 ?F) Oral 94 19 95 % - GENERAL APPEARANCE: well appearing NOSE: Airway: Widely patent with good air movement External: No scars, lesions, or masses. Atraumatic Septum: midline Turbinates: normal NASAL ENDOSCOPY: After topical decongestion and anesthesia of the left nasal cavity, the nasopharyngoscope was inserted. Active bleeding is seen from the left anterior septum. No other bleeding was noted. The left side of the nasal cavity was packed with Surgicel fibrillar. No further bleeding was noted intranasally or in the oropharynx. The scope was quickly passed into the left, and no bleeding was norted ORAL CAVITY: No evidence of active bleeding. No clot in the posterior oropharynx DATA: Diagnostic tests reviewed for today's visit: N/A ASSESSMENT AND PLAN: Epistaxis - now resolved PLAN: - Nasal packing with Surgicel fibrillar. - Please do not remove nasal packing, surgicel fibrillar will dissolve on its own in approx 5 days - Antibiotics - Recommend anti-Staph coverage for 7 days Typically we recommend Augmentin 875mg BID, however other antibiotics may be used as long as there is staph coverage - Humidified O2 via face tent if appropriate (no nasal canula if possible) - Begin [facility] nasal cream BID and prn (ordered) - Order Afrin at bedside. If patient re-bleeds, spray Afrin in both nares liberally, and hold pressure firmly over the soft portion of the nose without continuously for 20 minutes. - Begin [place] 6 times a day (scheduled) (ordered) - Please notify ENT with further bleeding or questions - Follow up in ENT clinic if bleeding recurs as an outpatient, call [phone] - Discussed epistaxis prevention and acute treatment Open mouth sneezing only, avoid nose blowing and picking to prevent further bleeding Patient Instructions Follow these Steps to Stop a Nosebleed. ? Stay calm ? Sit down and lean your body and your head slightly forward. This will keep the blood from running down your throat, which can cause nausea, vomiting, choking, and diarrhea. (Do NOT lay flat or put your head between your legs.) ? Breathe through your mouth ? Use a tub/bowl or damp washcloth to catch the blood. Use your thumb and index finger to pinch together the soft part of your nose. Make sure to pinch together the soft part of the nose. Squeezing at or above the bony part of the nose will not put pressure where it can help stop bleeding. ? Keep pinching your nose without letting go for at least 5 minutes (timed by clock). Do not ?peek? to see if the bleeding has stopped. Every time you stop to ?peek,?-- and the bleeding has not stopped -- you have to ?restart the clock? and pinch your nose for another 5 minutes!! If your nostril is still bleeding, continue squeezing your nose for another 10 minutes. ? You can spray an qdno-lws-tcslmil decongestant spray, such as oxymetazoline (Afrin?, Eduardo-Synephrine?) into the bleeding side of the nose and then apply pressure to the nose as described above. Do not use Afrin? for more than 5 days. Go to the emergency room or call 911 if you cannot stop the bleeding after more than 20 minutes of applying direct pressure. SIGNATURE: Annalee Garcia MD PATIENT NAME: Lazaro Villafana DATE: April 29, 2018 TIME: 3:28 AM PAGER/CONTACT #: [phone] BASIC METABOLIC PANL Collected: 04/29/2018 Status: F Source: [place] 2:00 AM [facility] REPOSITORY TYPE CODE TESTS RESULT OUT OF REFERENCE UNITS RANGE LAB GLU 74-99 mg/dL High Glucose 173 Result Comment: The [place] [employer] Association (ADA) provides guidance for cutoff values for fasting glucose and random glucose. The ADA defines fasting as no caloric intake for at least 8 hours. Fas ting plasma glucose results between 100 to 125 mg/dL indicate increased risk for diabetes (prediabetes). Fasting plasma glucose results greater than or equal to 126 mg/dL meet the criteria for diagnosis of diabetes. In the absence of unequivocal hyperglycemia, results should be confirmed by repeat testing. In a patient with classic symptoms of hyperglycemia or hyperglycemic crisis, random plasma glucose results greater than or equal to 200 mg/dL meet the criteria for diagnosis of diabetes. Reference: Standards of Medical Care in Diabetes 2016, [place] [employer] Association. Diabetes Care. 2016.39(Suppl 1). LAB BUN 9-24 mg/dL BUN High 39 LAB CRET 0.73-1.22 mg/dL Creatinine 1.16 LAB NA 136-144 mmol/L Sodium 142 LAB K 3.7-5.1 mmol/L Potassium 4.6 LAB CL 97-105 mmol/L Chloride High 111 LAB CO2 22-30 mmol/L Low CO2 21 LAB AGAP 9-18 mmol/L Anion Gap 10 LAB CA 8.5-10.2 mg/dL Low Calcium, Total 7.6 LAB GFRAA eGFR- Amer. >60 LAB GFRNAA . eGFR-All Other Races >60 Result Comment: eGFR (Estimated GFR) Units of measure: mL/min/1.73 meters squared eGFR is derived from the reexpressed MDRD Study equation using the following parameters: serum creatinine, age, gender and race. The creatinine assay has been calibrated to be traceable to IDMS. An eGFR <60 mL/min/1.73m2 for >3 months is consistent with chronic kidney disease. Refer to KDOQI guidelines for clinical interpretation. In patients with unstable renal function, e.g. those with acute kidney injury, the eGFR may not accurately reflect actual GFR. Performed By: #### BMP, MG1, PHOS #### [facility] [address] [place], [place] [address] MAGNESIUM Collected: 04/29/2018 Status: F Source: [place] 2:00 AM [facility] REPOSITORY TYPE CODE TESTS RESULT OUT OF REFERENCE UNITS RANGE LAB MG 1.7-2.3 mg/dL Magnesium 2.0 Performed By: #### BMP, MG1, PHOS #### [facility] [address] [place], [place] [address] PHOSPHORUS Collected: 04/29/2018 Status: F Source: [place] 2:00 AM [facility] REPOSITORY TYPE CODE TESTS RESULT OUT OF REFERENCE UNITS RANGE LAB PHOS 2.7-4.8 mg/dL Phosphorus 3.3 Performed By: #### BMP, MG1, PHOS #### [facility] [address] [place], [place] [address] TYPE AND SCREEN Collected: 04/29/2018 Status: F Source: [place] 2:00 AM [facility] REPOSITORY TYPE CODE TESTS RESULT OUT OF REFERENCE UNITS RANGE LAB %ABR B ABO/RH(D) POSITIVE LAB % Antibody POS Screen Performed By: #### TSCR #### [facility] [address] [place], [place] [address] NURSING PROG Observed: 04/29/2018 Status: COMPLETED Source: [place] 1:36 AM [facility] REPOSITORY HNO ID: [id number] Author: Kurtis Ferreira) BLAYNE Benton Service: (none) Author Type: Registered Nurse Type: Nursing Progress Note Filed: 04/29/2018 1:43 AM Note Text: Nursing Progress Note Patient Name: Lazaro Villafana Patient Location: [place] [id number] Daily Note: after getting patient up to the chair about 2014 he developed a significant amount of epistaxis out of left nostril, I packed the nostril with gauze and he saturated the packing 4 times. I reported this to our fellow and Dr. Mercado, bleeding stopped around 2200 and now has began @ 0130 again after getting up to side of bed to urinate, I packed the left nostril again and will report to staff. Patient is stable in bed resting currently. This note was completed by: Kurtis Benton RN NUTRITION Observed: 04/28/2018 Status: COMPLETED Source: [place] 3:53 PM [facility] REPOSITORY HNO ID: [id number] Author: Sari Weston Service: NST-Nutrition Support Team Author Type: Registered Dietitian Type: Nutrition Filed: 04/28/2018 4:07 PM Note Text: NUTRITION SUPPORT TEAM REASSESSMENT SERVICE DATE: 04/28/2018 SERVICE TIME: 1001 RECOMMENDED MALNUTRITION DIAGNOSIS: NO MALNUTRITION IDENTIFIED NUTRITION CARE PLAN: Intervention: 1. ?Continue TPN with increased volume per SICU ?- PN to provide 120gms 15% AA, 1170 dextrose calories, 2000ml?at 83ml/hr ?- orders pended with reduced KPhos, incr NaPhos, incr MgSO4, MVI, MTE, 70u insulin (1:5 ratio), 100mg thiamine 2. ?250ml IVPB lipids 20% fat emulsion MWF started 04/27 ? Monitor and Evaluation: Goal: Meet >75% of estimated needs Monitor fluid/electrolyte balance Monitor labs, I/Os, vital signs, weight ? Discharge Nutrition Recommendations:? To be determined ? 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 Patient initially presented with hematemesis and melena with accompanying dizziness and shortness of breath. Transferred to [facility] on 04/14 for further management. s/p EGD 04/15?which showed a deep esophageal tear. ?Plan for a minimum of NPO x 2 weeks. ?04/16 Right chest tube placed for effusion. Esophagram (04/27/18): Persistent right mid-esophageal perforation; GI c/s and plan for esophageal stent placement tomorrow Interval History: TPN continues Pt is febrile with Tmax: 38.2 Resp: nasal cannula I/O's: Intake/Output Summary (Last 24 hours) at 04/28/18 1557 Last data filed at 04/28/18 1400 Gross per 24 hour Intake 3777.3 ml Output 2895 ml Net 882.3 ml overall +91313.9 Abdomen: not assessed Last BM: today Enteral access: ?n/a; plan for EGD guided post pyloric feeding tube placement; pt pulled SBFT Parenteral access: ?left IJ TLC placed 04/27 Labs: Na improved, Cl trending down, Mg suboptimal Blood Gases: n/a Blood sugars: 100, 172, 120 Cultures: blood cx x 2 no growth x 1 day Imaging: esophogram 04/27 IMPRESSION: PERSISTENT RIGHT MIDESOPHAGEAL PERFORATION DESCRIBED, CORRELATING WITH PRIOR. Current Diet Order DIET NPO Lines and Drains: Central Line Triple Lumen 04/27/18 Non-tunneled Left Neck (Active) Peripheral 04/14/18 2344 Left Antecubital 18 Gauge (Active) Chest Tube 04/16/18 2100 Right 28 Fr (Active) Nutritional Intake: Intake History BI DATA ARCHITECT: Unable to determine Current intake: 04/17: ?Average 5 day intakes meeting <50% of estimated energy need.s started on PN 04/17 due to esophageal tear, plan for NPO x 2 weeks 04/18: currently goal kcals, PN 940 kcals, 110 g pro + propofol 765 kcals/day 04/20: ?TPN wirh orders 04/17 - 04/19 to provide 110gms protein and 940 claories + additional calories from propofol (04/19 provided 626 calories) 04/21 - 04/22: ?PN with orders 04/20 - 04/21?to provide 100gms protein and 1000 calories + additional calories from propofol 04/25: ?PN with orders 04/22 - 04/24 to provide 110gms protein and 1040 calories 04/26 - 04/27: ?PN with orders 04/25 - 04/26 to provide 120gms protein and 1600 calories 04/28: PN with orders 04/27 to provide 120 gms protein and 1650 calories 250ml IVPB lipids 20% fat emulsion MWF started 04/27 GI symptoms: none Nutrition Abdominal Exam: and not assessed ANTHROPOMETRICS Height: 177.8 cm (5' 10) Admission Weight: 106.1 kg (233 lb 14.5 oz) Current Weight: 105.2 kg (231 lb 14.8 oz) Body mass index is 33.28 kg/m?. Usual body weight ?Unable to determine? No weight history available. Last Wt 04/28/18 : 105.2 kg (231 lb 14.8 oz) 04/14/18 : 97 kg (213 lb 13.5 oz) Estimated nutrition goals: [place] body weight: 75.4 kg Dosing weight: 106?kg (04/14; BMI 33.5kg/m2)?? Calorie needs 5420-2709?kilocalories determined by = 15-20?kcals/kg ?Dosing?weight? Protein needs: 90 - 121?grams determined by 1.2 -1.6g/kg ideal?weight?- due to [id number]} NUTRITION FOCUSED PHYSICAL EXAM: Subcutaneous Fat Loss Orbital No fat loss Triceps No fat loss Mid-axillary at the iliac crest Unable to determine at this time Muscle Loss Locations: Temporalis No muscle loss Pectoralis No muscle loss Deltoids Mild Interosseous Mild Latissimus dorsi, trapezius Unable to determine at this time Quadriceps Unable to determine at this time Gastrocnemius Unable to determine at this time Potential micronutrient deficiency revealed in: No deficiency identified Edema: Yes Lower extremities Moderate 2+ Ascites: No Assessment of Functional Status: Functional capacity is unrelated to nutrition status Temperature Max in 24 hours: Temp (24hrs), Av.7 ?C (99.9 ?F), Min:36.8 ?C (98.2 ?F), Max:38.2 ?C (100.8 ?F) BP 139/74 Pulse 95 Temp 36.8 ?C (98.2 ?F) (Oral) Resp 27 Ht 177.8 cm (5' 10) Wt 105.2 kg (231 lb 14.8 oz) SpO2 98% BMI 33.28 kg/m? Recent Labs 04/28/18 1236 04/28/18 0106 GLUC 123* -- BUN 38* -- CREAT 1.21 -- NA 144 -- K 4.9 -- CHLOR 113* -- CO2 23 -- P -- 3.6 HB -- 7.8* HCT -- 25.5* WBC -- 7.63 MG -- 1.9 Vitamin and Mineral Labs in the past year:No results for input(s): CHROMIUM, COPPER, MANGANESE, SELENIUM, VITAMINA, VITB1, VITB2, VITB6, B12, METHYLMAL, VITD25, VITAMINE, VITAK, ZINC, TIBC, FE, JOHANNY in the last 8784 hours. Potential Signs of Inflammation: hypoalbuminemia, hyperthermia and imaging studies MNT Billing Type: Re-assess/15 min 3 units SIGNATURE: Sari Weston RD ST. [facility] PATIENT NAME: Lazaro Villafana DATE: April 28, 2018 TIME: 3:53 PM PAGER: [phone] PROGRESS Observed: 04/28/2018 Status: COMPLETED Source: [place] 1:35 PM [facility] REPOSITORY HNO ID: [id number] Author: ANDRESSA Amezquita (Ct) Service: Radiology Author Type: Clinical Warrant Clerk Type: Progress Notes Filed: 04/28/2018 1:35 PM Note Text: Radiology Service Progress Note PATIENT NAME: Lazaro Villafana DATE OF SERVICE: April 28, 2018 TIME: 1:35 PM PATIENT IDENTITY VERIFICATION COMPLETED USING TWO (2) METHODS: Patient confirmed name verbally and ID band matches.. PATIENT GENDER DATA: Male PATIENT RELEVANT IMPLANT DATA REVIEWED: Yes RADIOLOGY DEPARTMENT: CT; Exam(s) Completed: Chest PERIPHERAL IV DATA: Not applicable SIGNED BY: ANDRESSA Amezquita April 28, 2018 1:[address] CHEST WO IVCON Observed: 04/28/2018 Status: F Source: [place] 1:35 PM [facility] REPOSITORY * * *Final Report* * * DATE OF EXAM: Apr 28 2018 1:35PM [facility] [place]41 - CT CHEST WO IVCON / PROCEDURE REASON: Pleural effusion * * * * Physician Interpretation * * * * EXAMINATION: CHEST CT WITHOUT CONTRAST CLINICAL HISTORY: 52-year old male with PMHx type II DM, poorly controlled HTN, CKD, COPD, tobacco smoker 2-3 PPD, alcohol use disorder with recent diagnosis of cirrhosis w/ esophageal varices who presents on transfer from OSH with hematemesis s/p EGD at OSH c/b esophageal laceration that appears to be contained; MELD >?20, currently with R-sided chest tube for hydropneumothorax, NPO and on TPN. Intermittent fevers. EGD done 04/26 with finding of partial mucosal tear in mid esophagus. Esophagram (04/27) showing persistent leak in esophagus. Evaluate pleural effusion. Technique: Spiral CT acquisition of the chest from the thoracic inlet to the upper abdomen without contrast. MQ: [id number] CT Dose-Length Product: 499 mGy*cm CT Dose Reduction Employed: Automated exposure control (AEC) Comparison: Chest CT exams dated 04/24/2018, 04/21/2018, and 04/15/2018; chest radiograph dated 04/28/2017; esophagram study dated 04/27/2017 RESULT: Limitations: Respiratory motion. Lines, tubes, and devices: A left IJ catheter terminates in the lower third of the SVC. A right thoracostomy tube enters laterally at the right lung base and terminates medially adjacent to the right upper lobe, stable in position relative to the prior chest CT dated 04/24/2018. Lung parenchyma and pleura: Images of the lungs are degraded by respiratory motion. A small to medium-sized right-sided probably loculated hydropneumothorax is present which has not substantially changed in size since the most recent CT dated 04/24/2009. Pleural fluid extends stents into the inferior aspect of the right major fissure as seen on image image 108, which is stable. Small amount of gas in the right pleural space is noted, for example as seen on image 94. Adjacent opacity primarily in the right lower lobe has mildly improved with improved aeration at the medial right lung base, for example as seen on image 131. Superimposed pneumonia/aspiration in this region is not excluded. High attenuation material in the inferior right pleural space as seen on image 160 is stable since the prior exam measuring approximately 50 Hounsfield units. This may represent either blood products versus contrast material from the recent esophagram study. Patchy airspace opacities primarily in the upper lobes have improved since the prior CT dated 04/24/2018, for example as seen on the left upper lobe, image 59 which is less dense and in the right upper lobe, image 67 which is also less dense. Clustered nodules in the left lower lobe as seen on image 151 also appear improved although have not resolved. No left-sided pneumothorax. Central airways are patent, no endobronchial lesion. Thoracic inlet, heart, and mediastinum: The imaged thyroid gland is unremarkable. No supraclavicular or axillary lymphadenopathy. There is persistent mild mediastinal lymphadenopathy. For reference, a 1.2 cm in short axis right paratracheal lymph node, image 51 is stable in size. A subcarinal lymph node, image 72 measuring 1.1 cm in short axis is stable in size. Additional borderline and mildly enlarged mediastinal lymph nodes are stable. An enlarged right hilar lymph node, image 69 measuring 1.3 cm in short axis is also stable in size. There is common origin of the right brachiocephalic and left common carotid arteries, a normal anatomic variant. Both the ascending aorta and main pulmonary artery are normal in caliber. No distinct coronary artery atherosclerotic calcification is seen. Heart size appears normal although individual chamber sizes are not well assessed on this noncontrast exam. Blood pool is hypodense relative to the interventricular septum, suggesting anemia. There is a linear tract of gas along the right lateral mid to distal aspect of the esophagus, as seen on image 83 which appears contiguous with the right pleural space, stable in appearance since the prior exam, suggestive of a fistulous tract/leak in this region. Small amount of high attenuation material in the distal esophagus likely represents contrast material. No mediastinal fluid collection identified. Bones and soft tissues: No destructive lytic or blastic bone lesion. Mild endplate degenerative changes are present within the thoracic spine. Upper abdomen: Images of the upper abdomen demonstrate no abnormality within the imaged liver, gallbladder, spleen, right adrenal gland, or right kidney on this noncontrast exam. Mild perihepatic and perisplenic ascites appears unchanged. QB_N IMPRESSION: 1. Small to medium-sized right sided hydropneumothorax is stable in size since the prior chest CT dated 04/24/2018 with right thoracostomy tube in stable position. Adjacent dependent airspace opacity primarily in the right lower lobe has mildly improved in the interval and most likely represents either atelectasis or pneumonia/aspiration. 2. Previously seen bilateral airspace opacities, some of which were ground-glass or centrilobular in distribution have overall improved although have not resolved and may be due to either edema and/or infectious/inflammatory in etiology such as due to aspiration. No new airspace opacity has developed in the interval. 3. 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 High attenuation material in the dependent right pleural space is nonspecific and may represent either contrast material from an esophagram study versus blood products. Correlate with the chest tube output for the presence of blood. 4. Stable mediastinal and right hilar lymphadenopathy, probably reactive. 5. Mild ascites in the upper abdomen, unchanged. Steel Turner: PSCB Transcribe Date/Time: Apr 28 2018 1:41P Dictated by : REMI PASTOR MD This examination was interpreted and the report reviewed and electronically signed by: REMI PASTOR MD on Apr 28 2018 2:05PM EST [id number] BASIC METABOLIC PANL Collected: 04/28/2018 Status: F Source: [place] 12:[address] [facility] REPOSITORY TYPE CODE TESTS RESULT OUT OF REFERENCE UNITS RANGE LAB GLU 74-99 mg/dL High Glucose 123 Result Comment: The [place] Diabetes Association (ADA) provides guidance for cutoff values for fasting glucose and random glucose. The ADA defines fasting as no caloric intake for at least 8 hours. Fas ting plasma glucose results between 100 to 125 mg/dL indicate increased risk for diabetes (prediabetes). Fasting plasma glucose results greater than or equal to 126 mg/dL meet the criteria for diagnosis of diabetes. In the absence of unequivocal hyperglycemia, results should be confirmed by repeat testing. In a patient with classic symptoms of hyperglycemia or hyperglycemic crisis, random plasma glucose results greater than or equal to 200 mg/dL meet the criteria for diagnosis of diabetes. Reference: Standards of Medical Care in Diabetes 2016, [place] [employer]. Diabetes Care. 2016.39(Suppl 1). LAB BUN 9-24 mg/dL BUN High 38 LAB CRET 0.73-1.22 mg/dL Creatinine 1.21 LAB NA 136-144 mmol/L Sodium 144 LAB K 3.7-5.1 mmol/L Potassium 4.9 LAB CL 97-105 mmol/L Chloride High 113 LAB CO2 22-30 mmol/L CO2 23 LAB AGAP 9-18 mmol/L Low Anion Gap 8 LAB CA 8.5-10.2 mg/dL Low Calcium, Total 8.0 LAB GFRAA eGFR- Amer. >60 LAB GFRNAA . eGFR-All Other Races >60 Result Comment: eGFR (Estimated GFR) Units of measure: mL/min/1.73 meters squared eGFR is derived from the reexpressed MDRD Study equation using the following parameters: serum creatinine, age, gender and race. The creatinine assay has been calibrated to be traceable to IDMS. An eGFR <60 mL/min/1.73m2 for >3 months is consistent with chronic kidney disease. Refer to KDOQI guidelines for clinical interpretation. In patients with unstable renal function, e.g. those with acute kidney injury, the eGFR may not accurately reflect actual GFR. Performed By: #### BMP #### [facility] [place] [address] [place], [place] [address] THERAPY NT Observed: 04/28/2018 Status: COMPLETED Source: [place] 12:25 PM [facility] REPOSITORY HNO ID: [id number] Author: Jerilyn Vasquez (Vilma Germain Service: Occupational Therapy Author Type: Occupational Therapist Type: Therapy (PT/OT/Speech/Resp) Filed: 04/28/2018 12:39 PM Note Text: Occupational Therapy Evaluation SERVICE DATE: 04/28/2018 SERVICE TIME: 829 ROOM: [place] [address] Recommended Discharge Disposition: Subacute/SNF Justification For Post Acute Needs: Anticipate that patient will require daily (5x/wk) skilled therapy in a post-acute facility setting at the time of acute hospital discharge;Willing to participate;Functional status improvement unknown Anticipated Discharge Needs: Undetermined OT Recommendations to Nursing: Encourage patient participation with in-bed ADL?s;Utilize bed in Chair Position OT 6 Clicks Score: 14 Precautions/Activity Restrictions: Lines/Tubes/Drains;Fall Risk Precaution/Activity Restriction Comments: R chest tube ASSESSMENT: Patient presents with impaired Strength/Tone, Edema, Cognitive/Perceptual, Balance, Coordination, Functional Mobility and Activity Tolerance and ADLs, impacting the ability to function without assistance from caregivers. Patient requires Mod assist with all ADLs including Minimal: Verbal for safety. Pt also requires monitoring of vital signs due to fluctuations with activity and instructions/ education regarding safe activity dosing. Pt wishes to return home but needs exceed resources available at this time. Pt requires skilled therapy to address current functional limitations, identify coping skills to progress through current impairments as well as to increase independence with ADLs within safe limits. Fatigued easily during functional activities requiring multiple rest breaks. Recommending SNF to maximize independence in ADLs and functional mobility. Patient Disposition at Start of Session: Supine in Bed Patient Disposition at End of Session: Supine in Bed Tolerated Full Session Occupational Therapy Problem List: Cognitive Deficit;Safety Deficits;Impaired Self Care;Decreased Activity Tolerance;Functional Mobility Impairment;Balance Impaired;Impaired Fine Motor Skills Patient /Caregiver Goals: Go Home Goals for Plan of Care: Grooming with: Modified Independent Upper Body Bathing with: Modified Independent Upper Body Dressing with: Modified Independent Lower Body Bathing with: Minimal Assistance Lower Body Dressing with: Minimal Assistance Chair Transfer with: Minimal Assistance Toilet Transfer with: Minimal Assistance Tolerate (minutes of functional activity): 30 Functional Activity with: Minimal Assistance Demonstrate Positive Coping Strategies with: Modified Independent Demonstrate Competence With Education with: Modified Independent Progress Toward Goals: Progressing as expected Rehab Potential: Good PLAN: Treatment Frequency (times per week): 3 Current admission Treatment Interventions: Education;Self Care / Home Management;Energy Conservation Training;Cognitive Training Plan of Care developed with: Patient TREATMENT INTERVENTIONS: Therapy Diagnosis: Decreased activities of daily living (ADL) Interventions Provided: Evaluation;Self Assisted Management (84382);Cognitive Training (47403 or G0515) $ Evaluation-Moderate (35732) Billed Units: 1 unit Self Assisted Management (16113) Treatment Minutes: 15 1 unit Skilled Intervention(s): Education provided for OT roles and services within hospital setting including POC and D/C planning. Provided cuing for hand/oral hygiene with increased assist provided for completion of simple oral care. Task breakdown provided to increase independence with ADL tasks with rest breaks and increased time provided for task completion. Education provided for importance of promoting independence to tolerance within hospital setting with ADL tasks. Increased assist provided for simple grooming tasks while sitting in bed in chair position. Education provided for importance of sitting upright for sitting and activity tolerance. Pt verbalized understanding. Cognitive Training (G0515) Treatment Minutes (2018 Only): 8 $ Cognitive Training (G0515) Billed Units (2018 Only): 1 unit Skilled Intervention(s):Patient was educated on problem solving and sequencing tasks with decreased extraneous environmental stimuli to improve level of alertness and attention, for optimal participation in session. Provided cognitive leisure activities to complete outside therapy session with education provided on importance of cognitive stimulation within ICU setting. Instruction provided for completion of simple cognitive acuity activities to increase independence with tasks. Administered Mini Cog Assessment again to reassess cognitive status, pt scored 2/5 ( score <4 may require further cognitive evaluation); Short term memory recall-pt able to identify 2/3 words, required multiple cues. Clock Drawing- pt unable to draw with correct number sequencing, number placement, clock contour, and correct hand placement. Education on reason for assessment, and results of assessment. Total Timed Code Treatment Minutes: 23 Total Treatment Time (minutes): 38 FUNCTIONAL G CODE: OT 6 Clicks Score: 14 (04/28/18829) Self Care Current Status (G8987): CK (04/28/18829) Self Care Goal Status (G8988): CK (04/28/18829) Based on clinical assessment and the score on the 6 Clicks Functional Assessment Tool, the G code and corresponding severity modifiers are documented above. SUBJECTIVE: Current Hospital Course: Chart reviewed; 52 year old man with history of T2DM, HTN, COPD, CKD, alcohol/tobacco abuse, liver cirrhosis with esophageal varices who presented to [facility] after developing a partial thickness esophageal perforation. Initially required intubation, has now been extubated. On broad-spectrum antibiotics with right sided chest tube in place. Intermittent low-grade fevers. Occasionally has agitation delirium. Reason for Occupational Therapy Consult: Critical Care Therapy Relevant Past Medical History: CKD. DM. COPD. ETOH. Cirrhosis. HTN. 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 Entry To Home: Stairs Number Of Stairs Into Home: 3 Number Of Stairs To Bed/Bath: 0 Equipment Owned: Cane;Wheeled Walker Prior Functional Level: Within Functional Limits OBJECTIVE: Cognition/Communication Deficits Orientation Deficits: Not oriented to Time Responsiveness: Alert;Awake Follows Commands: 2-step Commands Attention Deficits: Distractible Executive Function Deficits: Safety Awareness;Insight to Deficits;Judgement Judgement Deficit: Minimal impairment Insight to Deficits: Minimal impairment Safety Awareness Deficit: Minimal impairment Cognitive Clinical Tests and Screens: Mini Cog Clock Draw Test: 0-Abnormal Word Recall: 2-recalled words Mini Cog Score: 2 CURRENT FUNCTIONAL STATUS: Current Activities of Daily Living Assist Level Feeding Stand By Assistance Grooming Minimal Assistance Bathing Upper Body Minimal Assistance Bathing Lower Body Maximal Assistance Dressing Upper Body Minimal Assistance Dressing Lower Body Maximal Assistance Toileting Total Assistance Functional Mobility Assist Level Rolling Moderate Assistance *further mobility deferred at this date for safety Please see discipline specific clinical documentation flowsheet for complete details for this therapy evaluation/treatment. SIGNATURE: Jerilyn Germain OTR/L PATIENT NAME: Lazaro Villafana DATE: April 28, 2018 TIME: 12:26 PM CONSULT PROG Observed: 04/28/2018 Status: COMPLETED Source: [place] 11:17 AM [facility] REPOSITORY HNO ID: [id number] Author: Rene Solorzano Service: Gastroenterology Author Type: Physician Type: Consult Progress Note Filed: 04/28/2018 5:21 PM Note Text: Gastroenterology Consult Service Progress Note Department of Gastroenterology AND Hepatology Digestive Disease [facility] Date of Service April 28, 2018 Patient: Lazaro Villafana Medical Record: [id number] Reason for Initial Consult: Esophageal Tear Requesting Service: General Surgery Lazaro Villafana is a 52 year old gentleman with history notable for presumed EtOH related cirrhosis with risk factors for BOONE with disease course c/b portal HTN (EV) who presented with complaints of several day history of nausea, vomiting, melena, and hematemesis prompting tony tube placement at that time (unsure if gastric vs. Gastric and esophageal balloon inflated) found to have partial thickness esophageal tear and large EV. His hospital course c/b mediastinitis with fevers an purulent chest tube output on vancomycin/aztreonam/diflucan, respiratory failure requiring intubation now extubated (04/22) and stable from pulmonary standpoint, and on TPN. EGD (04/14/18): ?4:20 PM - GE junction at 45 cm - Grade II Esophageal varices, 2 columns not actively bleeding - Laceration with adherent clot from 31 - 38 cm from incisors. ? ? EGD (04/15/18): - Deep mucosal tear 31-38 cm from incisors - Large varices in lower third of esophagus - Hematin in stomach - Scope not advanced to duodenum to avoid additional pressure on esophagus EGD (04/26/18): - Mucosal tear in middle third of esophagus from 31 to 38 cm healing well - PHG ? XR Esophagram (04/27/18): Persistent right mid-esophageal perforation ? GI re-consulted for possible esophageal stent placement. ? Plan: -Will plan for esophageal stent placement tomorrow in Q3 under fluoroscopy - Ensure active type and screen, Hgb >7, Plt > 50K, and INR <1.7 in anticipation of procedure - Continue broad spectrum antibiotics - Strict NPO Discussed with Dr. Solorzano Subjective: - EGD on 04/26 with healing esophageal tear - XR esophagram on 04/27 with persistent perforation and contrast leak from the right mid-esophagus c/w perforation and corresponding to his right purulent pleural effusion - HD stable on RA Current hospital medications: Parenteral Nutrition - Adult INTRAVENOUS ONCE TPN (0 START) dextrose 5% in water iv infusion 5-30 mL/hr INTRAVENOUS CONTINUOUS Parenteral Nutrition - Adult INTRAVENOUS ONCE TPN (2200 START) fat emulsion infusion 20% (INTRALIPID) 250 mL INTRAVENOUS MO-WE-FR (10PM) metoprolol 10 mg injection (LOPRESSOR) 10 mg INTRAVENOUS q 6 HR OLANZapine orally disintegrating 10 mg tab(s) (ZyPREXA ZYDIS) 10 mg ORAL AT BEDTIME lidocaine 5 % 1 Patch (LIDODERM) 1 Patch TRANSDERMAL DAILY lidocaine patch - REMOVE OTHER AT BEDTIME lidocaine - VERIFY PATCH OTHER q 8 H labetalol 10 mg injection syringe (NORMODYNE) 10 mg INTRAVENOUS q 2 H PRN insulin glargine 20 Units pen (long acting) (LANTUS SOLOSTAR, BASAGLAR KWIKPEN) 20 Units SUBCUTANEOUS AT BEDTIME vancomycin iv piggyback 1 g in D5W 200 mL (VANCOCIN) 1 g INTRAVENOUS q 12 HR aztreonam 2 g in D5W 100 mL MB+ (AZACTAM) 2 g INTRAVENOUS q 6 HR heparin 5,000 Units injection 5,000 Units SUBCUTANEOUS q 12 H fluconazole 400 mg in NaCl (iso-osmotic) 200 mL (DIFLUCAN) 400 mg INTRAVENOUS DAILY vancomycin dosing and monitoring per pharmacy OTHER As Directed insulin regular human injection (short acting) (NovoLIN R,HumuLIN R) SUBCUTANEOUS q 6 H potassium chloride iv piggyback 20 mEq/100 mL 20 mEq INTRAVENOUS PRN potassium chloride 20-80 mEq CUP 20-80 mEq ORAL/FEEDING TUBE PRN magnesium sulfate in water 2 g in sterile water 50 ml 2 g INTRAVENOUS PRN sodium glycerophosphate 15 mmol in D5W 250 mL (GLYCOPHOS) 15 mmol INTRAVENOUS PRN sodium glycerophosphate 30 mmol in D5W 250 mL (GLYCOPHOS) 30 mmol INTRAVENOUS PRN sodium glycerophosphate 45 mmol in D5W 250 mL (GLYCOPHOS) 45 mmol INTRAVENOUS PRN dextrose 40 % 15 g 15 g ORAL PRN glucagon 1 mg injection (GLUCAGEN) 1 mg INTRAMUSCULAR PRN dextrose 50 % 12.5 g injection 12.5 g INTRAVENOUS PRN NaCl 0.9% 3-5 mL 3-5 mL INTRAVENOUS q 12 H fentaNYL 50 mcg/mL 25-50 mcg injection (SUBLIMAZE) 25-50 mcg INTRAVENOUS q 1 H PRN metroNIDAZOLE 500 mg PREMIX piggyback (FLAGYL) 500 mg INTRAVENOUS q 8 H ipratropium-albuterol 3 mL nebulizer solution (DUONEB) 3 mL INHALATION q 4 H PRN pantoprazole 40 mg injection (PROTONIX) 40 mg INTRAVENOUS BID AC (06/1599) Physical Exam: Vital Signs 04/28/18 0800 04/28/18 0900 04/28/18 1000 04/28/18 1100 BP: 145/68 136/84 138/80 131/67 Pulse: 87 92 92 106 Resp: 27 26 28 28 Temp: 36.8 ?C (98.2 ?F) TempSrc: Oral SpO2: 95% 96% 95% 96% Weight: Height: Intake/Output Summary (Last 24 hours) at 04/28/18 1118 Last data filed at 04/28/18 1100 Gross per 24 hour Intake 3777.3 ml Output 2940 ml Net 837.3 ml VITAL SIGNS: BP 131/67 Pulse 106 Temp (Src) 98.2 (Oral) Resp 28 Ht 5' 10 (1.78m) Wt 231 lb 14.8 oz (105.2kg) SpO2 96% BMI 33.28 kg/(m2). General appearance: well appearing, alert, in no acute distress Skin: no rashes or lesions Lungs: lungs clear to auscultation, no wheezing or rhonchi Heart: RRR without murmur Abdomen: Abdomen soft, non-tender. Bowel sounds normal. Extremities: Extremities normal. Musculoskeletal: Muscular strength grossly intact Neuro: CN2-12 grossly intact Labs: CBC, Coags, BMP, Mg, Phos Recent Labs 04/28/18 0106 04/27/18 0237 04/26/18 1024 04/26/18 0148 WBC 7.63 6.78 -- 7.02 HB 7.8* 7.3* -- 6.9* HCT 25.5* 23.8* -- 22.2* PLT 145* 132* -- 131* NA -- 149* -- 148* K -- 4.8 -- 4.0 CHLOR -- 116* -- 112* CO2 -- 21* -- 25 BUN -- 42* -- 46* CREAT -- 1.17 -- 1.07 GLUC -- 133* -- 129* IC -- -- 1.13 -- CA -- 8.0* -- 8.0* MG 1.9 1.9 -- 2.1 P 3.6 3.9 -- 3.4 Liver Function, Amylase, AND Lipase Recent Labs 04/26/18 1024 LACT 1.0 Cardiac Enzymes SIGNATURE: Alec Cheung MD PATIENT NAME: Lazaro Villafana DATE: April 28, 2018 TIME: 11:18 AM PAGER/CONTACT #: [phone] GI Staff Note I reviewed the history and physical obtained and documented by Dr. Cheung and I personally participated in the jang components. 52 yo male with cirrhosis / portal hypertension who is s/p Meme Holli tear. Developed right empyema and found to have a contrast leak from the mid-esophagus. Will plan for EGD with esophageal stent placement to provide seal. Rene Solorzano II MD FACP THERAPY NT Observed: 04/28/2018 Status: COMPLETED Source: [place] 11:[address] [facility] REPOSITORY HNO ID: [id number] Author: Ekaterina (Pt) Sagrario Service: Physical Therapy Author Type: Physical Therapist Type: Therapy (PT/OT/Speech/Resp) Filed: 04/28/2018 11:09 AM Note Text: Physical Therapy Treatment SERVICE DATE: 04/28/2018 SERVICE TIME: 1015 to 1048 ROOM: [place] [address] Recommended Discharge Disposition: Unable to determine due to critical care status PT Recommendations to Nursing: Passive lift to/from chair;Utilize bed in chair position PT 6 Clicks Score: 10 Precautions/Activity Restrictions: Lines/Tubes/Drains;Fall Risk Precaution/Activity Restriction Comments: R chest tube ASSESSMENT : Patient progressed to stand and step to the chair today however needed extra time, rest breaks, and cues for breathing. Recommend continued skilled PT focusing on transfers and gait. Patient Disposition at Start of Session: Supine in Bed Patient Disposition at End of Session: OOB in Chair;Call Raphael in Reach;SCDs Tolerated Full Session Without limitations Physical Therapy Problem List: Education Deficit;Pain;Safety Deficits;Decreased Activity Tolerance;Decreased Strength;Functional Mobility Impairment;Balance Impaired Patient /Caregiver Goals: Go Home Goals for Plan of Care: Able to perform HEP with: Independent Rolling with: Stand By Assistance Transfer supine to/from sit with: Stand By Assistance Transfer sit to/from stand with: Stand By Assistance Ambulate with: Stand By Assistance Distance: 100ft Device: Wheeled Walker Ambulate up and down steps with: Contact Guard Assistance Number of steps: 3 Device: Rail Transfer: Transfer bed to chair SBA with walker Progress Toward Goals: Progressing as expected Rehab Potential: Good PLAN: Treatment Frequency (times per week): 5 Current admission Treatment Interventions: Education;Strengthening;Functional Mobility Training;Balance Training Plan of Care developed with: Patient TREATMENT INTERVENTIONS: Therapy Diagnosis: Reduced mobility-other Interventions Provided: Therapeutic Activity (47912) Therapeutic Activity (54237) Treatment Minutes: 33 2 units Skilled Intervention(s): -Education to patient : PT Plan, OOB with assist (pt able to verbalize understanding) -Instruction to nursing regarding: mobility recs -Supine to sit: Instruction with logroll. Cues to roll, mobilize LE, weight shift trunk -Sit to/from stand 3x: B UE support to wt shift trunk. Cues to knees for ext to stand -Transfer bed to chair: B UE support to wt shift trunk. Cues to knees for ext. Verbal cues for pacing. -Instruction and verbal cues for pursed lip breathing throughout -Skilled intervention for ICU line/room setup for safe mobility environment -Skilled intervention for vital sign monitoring to assess hemodynamic and respiratory response to activity to prescribe safe intensity and duration of activity/exercise during above interventions -Skilled intervention and time for positioning in chair after session for safety, comfort Total Timed Code Treatment Minutes: 33 Total Treatment Time (minutes): 33 SUBJECTIVE: Current Hospital Course: 52 yo male with hematemesis s/p EGD at OSH c/b esophageal laceration that appears to be contained; MELD > 20, currently with R-sided chest tube for hydropneumothorax, NPO and on TPN. 04/28 stable in ICU Reason for Physical Therapy Consult : Critical care therapy Relevant Past Medical History: CKD. DM. COPD. ETOH. Cirrhosis. HTN. 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 Entry To Home: Stairs Number Of Stairs Into Home: 3 Number Of Stairs To Bed/Bath: 0 Equipment Owned: Cane;Wheeled Walker Prior Functional Level: Within Functional Limits OBJECTIVE: Mini Cog Score: 2 (04/25/18 1145) CURRENT FUNCTIONAL STATUS: Current Functional Mobility Assist Level Additional Information Rolling Moderate Assistance Supine to Sit Moderate Assistance Sit to Supine Maximal Assistance Scooting Moderate Assistance Sit to Stand Moderate Assistance Stand to Sit Moderate Assistance Bed to Chair Moderate Assistance 2 assist Bed To Chair Transfer Equipment: Gait Belt Toilet/Commode Gait Stairs Curb Step Car Transfer -M: 4: Move to chair / commode Please see discipline specific clinical documentation flowsheet for complete details for this therapy evaluation/treatment. SIGNATURE: Ekaterina Zabala PT PATIENT NAME: Lazaro Villafana DATE: April 28, 2018 TIME: 11:06 AM PROGRESS Observed: 04/28/2018 Status: COMPLETED Source: [place] 8:52 AM [facility] REPOSIT[facility] HNO ID: [id number] Author: Rosa Maria Gan Service: Critical Care Author Type: Anesthesiologist Type: Progress Notes Filed: 04/28/2018 12:07 PM Note Text: SURGICAL INTENSIVE CARE UNIT PROGRESS NOTE SERVICE DATE: April 28, 2018 SERVICE TIME: 8:52 AM Subjective MAJOR ISSUES: febrile o/n 38.2 04/28 at 0400, cultures from 04/27 pending. Lines exchanged yesterday Esophogram demonstrating R midesophageal perforation Objective VITAL SIGNS Temp: 36.8 ?C (98.2 ?F) Pulse: 87 Arterial BP 1: 142/69 MAP Invasive (Mean Arterial Pressure) 1: 91 Resp: 27 SpO2: 95 % 145/68 Not applicable Current Facility-Administered Medications: dextrose 5% in water iv infusion 5-30 mL/hr INTRAVENOUS CONTINUOUS Parenteral Nutrition - Adult INTRAVENOUS ONCE TPN (2200 START) fat emulsion infusion 20% (INTRALIPID) 250 mL INTRAVENOUS MO-WE-FR (10PM) metoprolol 10 mg injection (LOPRESSOR) 10 mg INTRAVENOUS q 6 HR dexmedetomidine 400 mcg in NaCl 0.9% 100 mL (PRECEDEX) 0.2- 1 mcg/kg/hr INTRAVENOUS CONTINUOUS OLANZapine orally disintegrating 10 mg tab(s) (ZyPREXA ZYDIS) 10 mg ORAL AT BEDTIME lidocaine 5 % 1 Patch (LIDODERM) 1 Patch TRANSDERMAL DAILY And lidocaine patch - REMOVE OTHER AT BEDTIME And lidocaine - VERIFY PATCH OTHER q 8 H labetalol 10 mg injection syringe (NORMODYNE) 10 mg INTRAVENOUS q 2 H PRN insulin glargine 20 Units pen (long acting) (LANTUS SOLOSTAR, BASAGLAR KWIKPEN) 20 Units SUBCUTANEOUS AT BEDTIME vancomycin iv piggyback 1 g in D5W 200 mL (VANCOCIN) 1 g INTRAVENOUS q 12 HR aztreonam 2 g in D5W 100 mL MB+ (AZACTAM) 2 g INTRAVENOUS q 6 HR heparin 5,000 Units injection 5,000 Units SUBCUTANEOUS q 12 H fluconazole 400 mg in NaCl (iso-osmotic) 200 mL (DIFLUCAN) 400 mg INTRAVENOUS DAILY vancomycin dosing and monitoring per pharmacy OTHER As Directed insulin regular human injection (short acting) (NovoLIN R,HumuLIN R) SUBCUTANEOUS q 6 H potassium chloride iv piggyback 20 mEq/100 mL 20 mEq INTRAVENOUS PRN Or potassium chloride 20-80 mEq CUP 20-80 mEq ORAL/FEEDING TUBE PRN magnesium sulfate in water 2 g in sterile water 50 ml 2 g INTRAVENOUS PRN sodium glycerophosphate 15 mmol in D5W 250 mL (GLYCOPHOS) 15 mmol INTRAVENOUS PRN Or sodium glycerophosphate 30 mmol in D5W 250 mL (GLYCOPHOS) 30 mmol INTRAVENOUS PRN Or sodium glycerophosphate 45 mmol in D5W 250 mL (GLYCOPHOS) 45 mmol INTRAVENOUS PRN dextrose 40 % 15 g 15 g ORAL PRN Or glucagon 1 mg injection (GLUCAGEN) 1 mg INTRAMUSCULAR PRN Or dextrose 50 % 12.5 g injection 12.5 g INTRAVENOUS PRN NaCl 0.9% 3-5 mL 3-5 mL INTRAVENOUS q 12 H fentaNYL 50 mcg/mL 25-50 mcg injection (SUBLIMAZE) 25-50 mcg INTRAVENOUS q 1 H PRN metroNIDAZOLE 500 mg PREMIX piggyback (FLAGYL) 500 mg INTRAVENOUS q 8 H ipratropium-albuterol 3 mL nebulizer solution (DUONEB) 3 mL INHALATION q 4 H PRN pantoprazole 40 mg injection (PROTONIX) 40 mg INTRAVENOUS BID AC (0600/1600) Cardiovascular: Regular rhythm Abdomen: soft NT, distended Extremities: tr edema Neuro: Awake oriented x3, Follows commands and Alert Pulm: exp wheezes on R, clear on L. On 2L O2 NC Mcclain barriga UO R chest tube c/d/i L triple lumen Intake/Output Summary (Last 24 hours) at 04/28/18 0852 Last data filed at 04/28/18 0800 Gross per 24 hour Intake 3777.3 ml Output 2910 ml Net 867.3 ml Current Weight: Weight: 105.2 kg (231 lb 14.8 oz) Admission Weight: Weight: 106.1 kg (233 lb 14.5 oz) RESPIRATORY Mechanical Ventilation: No. Supplemental Oxygen: Yes. 2L Recent Labs 04/26/18 1024 04/25/18 1043 PH 7.46* 7.47* PO2 70* 78* PCO2 35 34 BE 1 2 HCO3 24 25 LACT 1.0 1.1 Patient Lines Assessed: Central Line: Site: Left internal jugular , Day #: 1, Rewired: Yes, Fresh stick: Yes Diagnostic tests reviewed for today's visit: Most recent labs and imaging results. Assessment/Plan Neuro:? AANDOx3, extubated -- Prn fentanyl for pain -- Continue lidocaine patch -- Zyprexa at night for agitation -- dexmedetomidine for agitation, wean as tolerated ? CV:? Hx of HTN on losartan and amlodipine at home. -- HDS off pressors -- PRN labetalol for HTN -- Scheduled metoprolol 10mg q6h until able to restart home PO meds; hold parameters in place ? Pulm:? Hx of COPD. Stable respiratory fxn on RA. CT chest with loculated R pleural effusion. CXR with R loculated pleural effusion, interstitial and alveolar opacities unchanged. -- resp culture normal abby -- Duonebs prn -- Monitor chest tube output -- thoracic surgery declines VATS on 04/28 --f/u GI stenting esophagus ? Renal:??(baseline Cr ~1.2 from 02/2018) -- Stable kidney function, good UOP -- Discontinue Mcclain -- repeat BMP ? GI:? Likely partial thickness mid-distal esophageal perforation, not amenable to stenting. EtOH cirrhosis with portal HTN, grade [address] Chest 04/24: Known esophageal perforation; small locules of gas extending from the level of the distal esophagus into the right pleural space (images 90-93) may correspond to the site of perforation. -- NPO until esoph leak healed -- NGT removed by patient (04/22); no need to replace NGT per thoracic (do not place blindly) -- repeat EGD 04/26 showed that esophagus is healing appropriately and there were no varices or active bleeding in esophagus. Corpak placed during EGD but patient subsequently removed corpak shortly after placement. -- Esophagram w leak -- f/u thoracic recs ? Heme:? -- Transfused 1u pRBC for Hgb 6.9 last on 04/26 -- Transfuse to keep Hgb >7 -- SQH ? Fluid/Electrolyte/Nutrition: -- NPO -- Replete lytes as needed -- TPN. incr volume on 04/28 -- D5W for carrier fluid given hypernatremia ? Endo:? Hx of IDDM, HgbA1c 8.2. -- Continue lantus 20 units qHS -- ISS3 -- Nutrition will adjust glargine in TF ? ID:?Esophageal tear and perforation. Aztreonam and flagyl at OSH. -- Intermittent low grade fevers; febrile overnight to 38.8 -- MSSA PCR positive, MRSA PCR negative -- Started Vancomycin on 04/20 per ID recs to cover for GPC -- transitioned cefepime to aztreonam 04/22 -- also on fluconazole (started 04/15), flagyl (started 04/15) -- allergy consult for skin test - negative - tolerated cefepime -- ID following, appreciate recs -- R IJ central line replaced 04/27, A-line from 04/14 removed ? PPX:? -- GI ppx - pantoprazole given GI bleed -- VTE ppx - 5000u BID Medication and Non-Pharmacologic VTE Prophylaxis/Anticoagulants Anticoagulant AND Antiplatelet Medications Start Dose Route Frequency Ordered Stop 04/21/18 0930 heparin 5,000 Units injection 5,000 Units SUBCUTANEOUS EVERY 12 HOURS 04/21/18 0901 -- 04/28/18 0845 graduated compression stockings ([place] 04/14/18 2100 pneumatic compression stockings ([place] 04/14/18 2100 activity - mobilize patient ([place]) VTE Prophylaxis: VTE prophylaxis appropriate SIGNATURE: Francisco Díaz MD, PGY-4 resident PATIENT NAME: Lazaro Villafana DATE: April 28, 2018 TIME: 8:52 AM PAGER/CONTACT #: SICU STAFF NOTE I have seen and reviewed the patient today, including physical examination at bedside with the SICU Housestaff and verifying the findings (see resident's documentation); reviewing labs, Xrays; discussing with primary physician and consultants; and developing plan of care with the bedside nurse. This care required my full attention and direct personal management in prevention of imminent clinical deterioration. [LEVEL III] REASON FOR SICU ADMISSION AND PERTINENT RECENT HISTORY: 52 year old man with history of T2DM, HTN, COPD, CKD, alcohol/tobacco abuse, liver cirrhosis with esophageal varices who presented to [facility] after developing a partial thickness esophageal perforation. Initially required intubation, has now been extubated. On broad-spectrum antibiotics with right sided chest tube in place. Intermittent low-grade fevers. Occasionally has agitation delirium. CURRENTLY: Doing well, calm and alert. Esophagram demonstrated ongoing leak. Still spiking fevers. DAILY ASSESSMENTS: Restraints -Unnecessary Central Access -Necessary. Personal evaluation has established that ongoing need exists for TPN Sedation interruption -Not applicable Continued need for urinary catheter: D/C Urinary Catheter IMPRESSION AND PLAN: 52 year old man with unrepaired partial thickness esophageal perforation. Has ongoing mediastinitis with fevers and purulent chest tube output as well as hydropneumothorax on chest CT. Is receiving appropriate antibiotic therapy. Stable and clinically improved from a cardiac and pulmonary standpoint. No pressors, on minimal O2 requirement. Underwent EGD, partial thickness tear is resolving. Esophogram with ongoing leak. Has hydropneumothorax, pleural effusion with empyema. Acute post-operative pain: IV fentanyl PRN, has lidocaine patches over chest tube site as well Hypertension: continue IV metoprolol Acute respiratory insufficiency, RLL lung consolidation, COPD: doing well on RA to 2L NC currently. Will encourage IS use, ambulation, out of bed Mediastinitis related to esophageal perforation: Continue aztreonam, fluconazole, flagyl, vancomycin. Thoracic surgery, general surgery, and GI following. Ongoing esophageal leak. Appreciate surgical team's input. Still spiking fevers, would benefit from source control via stenting, VATs T2DM: SSI, target blood glucose < 200 Severe protein-calorie malnutrition: patient TPN-dependent, strict NPO until cleared by thoracic surgery. Hyperactive delirium: Olanzepine ordered. improving Prophy: Protonix, SQH Lines: discontinue mcclain Dispo: SICU SIGNATURE: Rosa Maria Gan MD DATE: April 28, 2018 TIME: 12:03 PM CONSULT PROG Observed: 04/28/2018 Status: COMPLETED Source: [place] 6:[address] [facility] RE[facility] HNO ID: [id number] Author: Francois Gann Service: Thoracic Surgery Author Type: Resident Type: Consult Progress Note Filed: 04/28/2018 11:29 AM Note Text: [facility] TH[facility]AC[facility] SURGERY CONSULT PROGRESS NOTE Lazaro Villafana [id number] PRIMARY SERVICE: HOSPITAL DAY: # 14 INTERVAL HISTORY No acute events overnight. Esophagram shows persistent leak. PHYSICAL EXAM BP 145/65 Pulse 91 Temp (!) 38.2 ?C (100.8 ?F) (Oral) Resp 16 Ht 177.8 cm (5' 10) Wt 104.3 kg (229 lb 15 oz) SpO2 95% BMI 32.99 kg/m? Intake/Output Summary (Last 24 hours) at 04/28/18 0620 Last data filed at 04/28/18 0400 Gross per 24 hour Intake 2029 ml Output 2550 ml Net -521 ml Constitutional: No acute distress HEENT: EOM's intact Resp: Respiratory effort: normal, CT SS, no air leak, on suction Cardiovascular: Cardiac: Regular rate AND rhythm Integumentary: Warm Musculoskeletal: No deformities Neurological/Psychiatric: Alert, some mild confusion Additional systems reviewed: No additional systems reviewed DATA Recent Labs 04/28/1810504/27/1823604/26/18147 WBC 7.63 6.78 7.02 HB 7.8* 7.3* 6.9* HCT 25.5* 23.8* 22.2* PLT 145* 132* 131* Recent Labs 04/28/1810504/27/1823604/26/18147 NA -- 149* 148* K -- 4.8 4.0 CO2 -- 21* 25 BUN -- 42* 46* CREAT -- 1.17 1.07 GLUC -- 133* 129* MG 1.9 1.9 2.1 IMAGING I personally reviewed: CXR ASSESSMENT AND PLAN 52 year old male with multiple medical comorbidities now with likely partial thickness esophageal perforation, putatively from S-B tube placement at OSH. It is unlikely that this is the etiology of his massive hemoptysis, reportedly there were multiple varices that, in the background of cirrhosis is the likely etiology of his bleed. While he is requiring high doses of vasopressors, it is unlikely that the source of his shock is purely from his esophageal perforation given his lack of pleural effusion or free flowing contrast. 04/15 EGD showed 5cm esophageal laceration without active bleeding. 04/16 Right chest tube placed for effusion. 04/22 extubated. 04/22 Patient pulled NGT. 04/[address] by 4cm. 04/26 EGD, well healing esophageal tear. 04/27 esophagram shows persistent leak. ?? Plan - no surgical intervention at this point - daily CXR - STRICT NPO - Reconsider stent - Image guided pigtail placement to drain fissure fluid collection - will continue to follow ? Plan discussed with Dr. Soto. Francois Gann MD,PhD Pager [phone] 04/28/2018 6:20 AM CONSULT PROG Observed: 04/28/2018 Status: COMPLETED Source: [place] 5:30 AM [facility] REPOSITORY HNO ID: [id number] Author: Muriel Flanagan Service: Infectious Disease Author Type: Physician Type: Consult Progress Note Filed: 04/28/2018 9:18 PM Note Text: INFECTIOUS DISEASES PROGRESS NOTE Patient Name: Lazaro Villafana Account #: Data Unavailable Admission Date: 04/14/2018 Date of Evaluation: 04/28/2018 Time of Evaluation: 10:20 AM INTERVAL HPI: Febrile to 100.8F overnight, otherwise hemodynamically stable. RIJ CVC replaced for LIJ CVC 04/27/18. CXR with some improvement over Right lung alvarez. Bedside GI scope performed 04/26/18. Partial esophageal tear reported healing well; corpak placed but subsequently removed by patient. Esophagram 04/27/18 confirmed perforation. No definitive interventions planned. Metronidazole 04/15 Fluconazole 04/15 Vancomycin 04/20 Aztreonam 04/22 MEDICATIONS: Current hospital medications: dextrose 5% in water iv infusion 5-30 mL/hr INTRAVENOUS CONTINUOUS Parenteral Nutrition - Adult INTRAVENOUS ONCE TPN (0 START) fat emulsion infusion 20% (INTRALIPID) 250 mL INTRAVENOUS MO-WE-FR (10PM) metoprolol 10 mg injection (LOPRESSOR) 10 mg INTRAVENOUS q 6 HR dexmedetomidine 400 mcg in NaCl 0.9% 100 mL (PRECEDEX) 0.2- 1 mcg/kg/hr INTRAVENOUS CONTINUOUS OLANZapine orally disintegrating 10 mg tab(s) (ZyPREXA ZYDIS) 10 mg ORAL AT BEDTIME lidocaine 5 % 1 Patch (LIDODERM) 1 Patch TRANSDERMAL DAILY lidocaine patch - REMOVE OTHER AT BEDTIME lidocaine - VERIFY PATCH OTHER q 8 H labetalol 10 mg injection syringe (NORMODYNE) 10 mg INTRAVENOUS q 2 H PRN insulin glargine 20 Units pen (long acting) (LANTUS SOLOSTAR, BASAGLAR KWIKPEN) 20 Units SUBCUTANEOUS AT BEDTIME vancomycin iv piggyback 1 g in D5W 200 mL (VANCOCIN) 1 g INTRAVENOUS q 12 HR aztreonam 2 g in D5W 100 mL MB+ (AZACTAM) 2 g INTRAVENOUS q 6 HR heparin 5,000 Units injection 5,000 Units SUBCUTANEOUS q 12 H fluconazole 400 mg in NaCl (iso-osmotic) 200 mL (DIFLUCAN) 400 mg INTRAVENOUS DAILY vancomycin dosing and monitoring per pharmacy OTHER As Directed insulin regular human injection (short acting) (NovoLIN R,HumuLIN R) SUBCUTANEOUS q 6 H potassium chloride iv piggyback 20 mEq/100 mL 20 mEq INTRAVENOUS PRN potassium chloride 20-80 mEq CUP 20-80 mEq ORAL/FEEDING TUBE PRN magnesium sulfate in water 2 g in sterile water 50 ml 2 g INTRAVENOUS PRN sodium glycerophosphate 15 mmol in D5W 250 mL (GLYCOPHOS) 15 mmol INTRAVENOUS PRN sodium glycerophosphate 30 mmol in D5W 250 mL (GLYCOPHOS) 30 mmol INTRAVENOUS PRN sodium glycerophosphate 45 mmol in D5W 250 mL (GLYCOPHOS) 45 mmol INTRAVENOUS PRN dextrose 40 % 15 g 15 g ORAL PRN glucagon 1 mg injection (GLUCAGEN) 1 mg INTRAMUSCULAR PRN dextrose 50 % 12.5 g injection 12.5 g INTRAVENOUS PRN NaCl 0.9% 3-5 mL 3-5 mL INTRAVENOUS q 12 H fentaNYL 50 mcg/mL 25-50 mcg injection (SUBLIMAZE) 25-50 mcg INTRAVENOUS q 1 H PRN metroNIDAZOLE 500 mg PREMIX piggyback (FLAGYL) 500 mg INTRAVENOUS q 8 H ipratropium-albuterol 3 mL nebulizer solution (DUONEB) 3 mL INHALATION q 4 H PRN pantoprazole 40 mg injection (PROTONIX) 40 mg INTRAVENOUS BID AC (0600/1600) PHYSICAL EXAM: BP 145/65 Pulse 91 Temp (!) 38.2 ?C (100.8 ?F) (Oral) Resp 16 Ht 177.8 cm (5' 10) Wt 104.3 kg (229 lb 15 oz) SpO2 95% BMI 32.99 kg/m? Lines: Nontunnelled triple lumen /9 Left neck ?GEN: OOB with PT SKIN: No lesions noted. EYES: PERRLA NECK: L nontunnelled triple lumen catheter with no overlying erythema, swelling or warmth. LUNGS: clear to auscultation, no wheezes, or crackles. HEART: ?Regular rate/rhythm, normal heart sounds, and no murmurs. ABDOMEN: Soft, epigastric tenderness, hypoactive BS EXTREMITIES: Edema of hands b/l, no LE edema. +mcclain + right sided chest tube with unchanged, chunky fluid Labs: WBC 7.63, Hgb 7.8, Plt 145, Cr 1.17 +1360 cc/24 hours Micro and radiology personally reviewed 04/14/18: Quantiferon gold testing negative for TB 04/14/18: Blood cultures 04/19 no growth 04/14/18: MSSA nasal swab positive 04/17/18: MSSA nasal swab positive 04/17/18: Blood cultures 2/2 no growth 04/20/18: Blood cultures 2/2 no growth 04/20/18: Tracheal aspirate cultures no organisms on gram stain and no growth on culture 04/22/18: Fungitell negative 04/23/18: Sputum cultures normal abby 04/24/18: Staphylococcal nasal swab negative 04/27/18: Blood cultures 2/[address] Chest 04/17/18: IMPRESSION: 1. ?NEW MULTIFOCAL CONSOLIDATIVE/GROUNDGLASS OPACITIES PREDOMINANTLY LEFT UPPER LOBE AND LINGULA, MAY REPRESENT MULTIFOCAL PNEUMONIA/ASPIRATION PNEUMONITIS, HEMORRHAGE OR ASYMMETRIC EDEMA. ?RADIOGRAPHIC FOLLOW-UP IS RECOMMENDED.. 2. ?BILATERAL LOWER LOBE AIRSPACE OPACITIES WITH VOLUME LOSS, RIGHT GREATER THAN LEFT, MOST LIKELY ATELECTASIS WITH POSSIBLE SUPERIMPOSED INFECTIOUS PROCESS. 3. ?LIMITED EVALUATION OF PREVIOUSLY SEEN MID ESOPHAGEAL CONTRAST EXTRAVASATION/TEAR. ?SMALL FOCI OF RIGHT-SIDED PNEUMOMEDIASTINUM, NOT SIGNIFICANTLY CHANGED. ?SMALL FOCI OF PNEUMOMEDIASTINUM HAVE DEVELOPED SUPERIORLY. ?THESE COULD BE FROM RECENT INTERVENTION. 4. SMALL BILATERAL PLEURAL COLLECTIONS HAVE SLIGHTLY INCREASED COMPARED TO PRIOR EXAM. ?THE AIR COMPONENTS OF THE RIGHT PLEURAL COLLECTION ARE NEW SINCE PREVIOUS EXAM, LIKELY RELATED TO ?INTERVAL PLACEMENT OF RIGHT APICAL CHEST TUBE. US upper extremities 04/20/18: IMPRESSION ? RIGHT SIDE - DEEP VEINS Technically limited study. Negative for acute deep vein thrombosis in vessels visualized. Unable to visualize the internal jugular vein due to IV lines and bandages. RIGHT SIDE - SUPERFICIAL VEINS Acute superficial thrombophlebitis in the cephalic vein antecubital fossa to wrist. Acute superficial thrombophlebitis in the basilic vein mid upper arm to wrist. Acute superficial thrombophlebitis in the median cubital vein at the antecubital fossa. ? LEFT SIDE - DEEP VEINS Spontaneous and respirophasic flow noted in the subclavian vein at proximal. CT Chest 04/21/18: IMPRESSION: 1. ?Unchanged right hydropneumothorax with right thoracostomy tube and associated right lower lobe atelectasis. ?Superimposed infection/aspiration cannot be excluded. 2. ?Groundglass opacities in the left upper lobe and lingula, likely infectious/inflammatory. ?Left apical consolidation has decreased since the prior exam. 3. ?Circumferential wall thickening of the esophagus. ?Known esophageal tear is not visualized on this examination. 4. ?Mediastinal lymphadenopathy, likely reactive. CT Chest 04/24/18: IMPRESSION: 1. Small to medium-sized right loculated hydropneumothorax with associated right pleural thickening and adjacent right lower lobe atelectasis/consolidation (most likely due to infection), without significant change. Right thoracostomy tube stable in position. 2. Scattered ground-glass opacities within the upper lobes, new within the right upper lobe and stable to slightly decreased in the left upper lobe. These are most likely infectious/inflammatory in origin. Additional small ground-glass and small consolidative opacities within the inferior left lower lobe with adjacent centrilobular nodular opacities are most likely infectious and, in this location, may be related to aspiration. 3. Interval resolution of the left pleural effusion with overall decreased atelectasis in the left lower lobe. 4. Thoracic lymphadenopathy, likely reactive. 5. Known esophageal perforation; small locules of gas extending from the level of the distal esophagus into the right pleural space (images 90-93) may correspond to the site of perforation. ? EGD 04/27/18: Impression: ? - Mucosal tear in the middle third of the esophagus ? healing well. ? - Portal hypertensive gastropathy. ? - Normal examined duodenum. ? - Feeding tube placement was successfully performed. ? Please confirm placement with KUB. ? - No specimens collected. Esophagram 04/27/18: PERSISTENT RIGHT MIDESOPHAGEAL PERFORATION DESCRIBED, CORRELATING WITH PRIOR. IMPRESSION / PLAN 52 yo M with a h/o cirrhosis, EtoH related, CKD, COPD and reported + PPD in the past. Currently no clinical or imaging evidence of active pulmonary TB. Presenting with hemorrhagic shock secondary to hematemesis/esophageal tear c/b pneumomediastinum; no surgical intervention planned at this time. EGD 04/26/18 with reported improvement in esophageal tear (31-38cm). Plans for PICC for TPN noted. Plan: - continue vancomycin (goal trough 15-25), aztreonam, metronidazole, fluconazole as ordered for now, will likely continue antibiotics until blood cultures finalize - will follow blood cultures 04/27/17, would hold off on PICC placement until confirmed no growth for 48 hours - order HIV Ag/Ab and Hepatitis C Antibody screening Will discuss with attending, Perla Delgado PGY4 ID STAFF I evaluated the patient and personally participated in the jang components. I agree with the fellow's findings and plan as documented and have discussed the case and management of the patient's care with the fellow. I have reviewed and verified pertinent data. More awake, no new complaints Discussed with patient cipro--gives him severe headache Plan as above Muriel Flanagan MD Pager: [phone] April 28, 2018 PROGRESS Observed: 04/28/2018 Status: COMPLETED Source: [place] 5:16 AM [facility] REPOSITORY HNO ID: [id number] Author: Gab Castillo Service: General Surgery Author Type: Resident Type: Progress Notes Filed: 04/28/2018 8:34 AM Note Text: Attestation signed by Scotty Jerry at 04/28/2018 12:40 PM Attending Note I evaluated the patient and personally participated in the jang components. I agree with the resident's findings and plan as documented and have discussed the case and management of the patient's care with the resident. Clinical trajectory discussed with Dr. Soto this morning. Patient with ongoing fevers and active leak from esophagus. We will ask GI about possible stent and Dr. Soto mentioned possible VATS vs additional pigtail drain. MELD score is currently 12. He likely needs diversion with SF and VATS for management of the right sided hydropneumothorax as currently source control has not been achieved. Discussed complexity of situation with Dr. Soto. Signature: Scotty Jerry MD Date: 04/28/2018 Time: 12:34 PM Acute Care Surgery PROGRESS NOTE Lazaro Villafana [id number] 04/28/2018 ASSESSMENT/PLAN: Lazaro Villafana is a 52 year old male with PMHx type II DM, poorly controlled HTN, CKD, COPD, tobacco smoker 2-3 PPD, alcohol use disorder with recent diagnosis of cirrhosis w/ esophageal varices who presents on transfer from OSH with hematemesis s/p EGD at OSH c/b esophageal laceration that appears to be contained; MELD >?20, currently with R-sided chest tube for hydropneumothorax, NPO and on TPN. Intermittent fevers. EGD done 04/26 with finding of partial mucosal tear in mid esophagus. Esophagram (04/27) showing persistent leak in esophagus. ? - Continue strict NPO, TPN - Remains intermittently febrile - Will need to discuss with Thoracic surgery and GI regarding further management of leak - Hgb stable - Continue to monitor chest tube output - Please apply Doc hose to legs - Continue supportive/SICU care ? To be discussed with staff, After 6pm and on weekends and holidays, please page General Surgery on-call [phone] Gab Castillo MD General Surgery, PGY-1 SUBJECTIVE 24 hour events: No acute events No pressor requirements Febrile overnight Pain is well controlled on current regimen. DIET NPO diet with no n/v OBJECTIVE Intake/Output Summary (Last 24 hours) at 04/28/18 0516 Last data filed at 04/28/18 0400 Gross per 24 hour Intake 3980 ml Output 2670 ml Net 1310 ml PHYSICAL EXAM: BP 145/65 Pulse 91 Temp (Src) 100.8 (Oral) Resp 16 Ht 5' 10 (1.78m) Wt 229 lb 15 oz (104.3kg) SpO2 95% BMI 32.99 kg/(m2). Gen: Awake, alert Lungs: No respiratory distress, 2L NC, CT with thick, dark, serosanguinous output Abdomen: soft, ntnd Ext: No edema, SCDs in place DATA: Date 04/27/18699 - 04/28/18 0659 04/28/18699 - 04/29/18 0659 Shift 5747-3797 7297-4495 3383-6871 24 Hour Total 5358-5715 3130-4410 0715-9596 24 Hour Total I N T A K E IV 1205 1205 D5W 1061 1061 Dexmedetomidine IV 144 144 TPN/PPN 824 824 TPN 824 824 Shift Total 2028 2028 O U T P U T Urine 800 793 829 6148 Output ( Indwelling Urinary Catheter 04/25/18 1916 Mcclain 16 Fr) 800 547 734 1215 Chest Tube 50 50 Chest Tube Output (Chest Tube 04/16/18 2100 Right 28 Fr) 50 50 # of BMs Number of BMs 0 x 0 x Shift Total 800 205 772 8372 Weight (kg) 104.3 104.3 104.3 104.3 104.3 104.3 104.3 104.3 Diagnostic tests reviewed for today's visit: Most recent labs and imaging results. CBC, Coags, BMP, Mg, Phos Recent Labs 04/28/18 0106 04/27/18 0237 04/26/18 1024 04/26/18 0148 04/25/18 1043 WBC 7.63 6.78 -- 7.02 -- HB 7.8* 7.3* -- 6.9* -- HCT 25.5* 23.8* -- 22.2* -- PLT 145* 132* -- 131* -- NA -- 149* -- 148* -- K -- 4.8 -- 4.0 -- CHLOR -- 116* -- 112* -- CO2 -- 21* -- 25 -- BUN -- 42* -- 46* -- CREAT -- 1.17 -- 1.07 -- GLUC -- 133* -- 129* -- IC -- -- 1.13 -- 1.16 CA -- 8.0* -- 8.0* -- MG 1.9 1.9 -- 2.1 -- P 3.6 3.9 -- 3.4 -- Liver Function, Amylase, AND Lipase Recent Labs 04/26/18 1024 04/25/18 1043 LACT 1.0 1.1 XR CHEST 1V FRONTAL Observed: 04/28/2018 Status: F Source: [facility] 3:39 AM [facility] REPOSITORY * * *Final Report* * * DATE OF EXAM: Apr 28 2018 3:39AM [facility] 5376 - XR CHEST 1V FRONTAL PORT / PROCEDURE REASON: Acute respiratory illness * * * * Physician Interpretation * * * * EXAMINATION: CHEST RADIOGRAPH (PORTABLE SINGLE VIEW AP) Exam Date/Time: 04/28/2018 3:39 AM Clinical History: Acute respiratory illness, MQ: XCPMC_5 Comparison: 1 day prior RESULT: See impression. IMPRESSION: Lines, tubes, and devices: Interval right IJ central venous catheter removal. Otherwise stable life support devices. Mildly lordotic projection. Lungs and pleura: No new left lung consolidation. Persistent right-sided opacities, suggestive of right pleural effusion (with fluid likely in the interlobar fissure) and associated atelectasis. Other processes such as infection or aspiration not completely excluded, if clinical picture fits. Cardiomediastinal silhouette: Stable cardiomediastinal silhouette. Other: . Steel Turner: PSCB Transcribe Date/Time: Apr 28 2018 8:53A Dictated by : ARABELLA CRUZ MD This examination was interpreted and the report reviewed and electronically signed by: ARABELLA CRUZ MD on Apr 28 2018 8:54AM EST [id number] CBC AND DIFFERENTIAL Collected: 04/28/2018 Status: F Source: [place] 1:06 AM [facility] REPOSITORY TYPE CODE TESTS RESULT OUT OF REFERENCE UNITS RANGE LAB WBC 3.70-11.00 k/uL WBC 7.63 LAB RBC 4.20-6.00 m/uL Low RBC 2.77 LAB HGB 13.0-17.0 g/dL Low Hemoglobin 7.8 LAB HCT 39.0-51.0 % Low Hematocrit 25.5 LAB MCV 80.0-100.0 fL MCV 92.1 LAB MCH 26.0-34.0 pG MCH 28.2 LAB MCHC 30.5-36.0 g/dL MCHC 30.6 LAB RDWCV 11.5-15.0 % RDW-CV High 16.8 LAB PLTCT 150-400 k/uL Low Platelet Count 145 LAB MPV 9.0-12.7 fL MPV 11.1 LAB ANEUT % Neut% 73.1 LAB AANEUT 1.45-7.50 k/uL Abs Neut 5.58 LAB ALYMP % Lymph% 16.9 LAB AALYMP 1.00-4.00 k/uL Abs Lymph 1.29 LAB AMONO % Hendry% 6.6 LAB AAMONO <0.87 k/uL Abs Hendry 0.50 LAB AEOS % Eosin% 3.0 LAB AAEOS <0.46 k/uL Abs Eosin 0.23 LAB ABASO % Baso% 0.4 LAB AABASO <0.11 k/uL Abs Baso 0.03 LAB AUNRBC 0 /100 WBC NRBCs 0.0 LAB ABNRBC <0.01 k/uL Absolute nRBC <0.01 LAB DTYP DTYPE Auto Diff Performed By: #### CBCDIF, MG1, PHOS #### [facility] [address] [id number] MAGNESIUM Collected: 04/28/2018 Status: F Source: [place] 1:06 AM [facility] REPOSITORY TYPE CODE TESTS RESULT OUT OF REFERENCE UNITS RANGE LAB MG 1.7-2.3 mg/dL Magnesium 1.9 Performed By: #### CBCDIF, MG1, PHOS #### [facility] [address] [place], [place] [address] PHOSPHORUS Collected: 04/28/2018 Status: F Source: [place] 1:06 AM [facility] REPOSITORY TYPE CODE TESTS RESULT OUT OF REFERENCE UNITS RANGE LAB PHOS 2.7-4.8 mg/dL Phosphorus 3.6 Performed By: #### CBCDIF, MG1, PHOS #### [facility] [address] [place], [place] [address] XR ESOPHAGRAM Observed: 04/27/2018 Status: F Source: [place] 2:31 PM [facility] REPOSITORY * * *Final Report* * * DATE OF EXAM: Apr 27 2018 2:31PM HGX 5378 - XR ESOPHAGRAM / PROCEDURE REASON: Perforation of esophagus * * * * Physician Interpretation * * * * ESOPHAGRAM HISTORY: 52-year-old male with past medical history of type 2 diabetes mellitus, hypertension, chronic renal insufficiency, COPD, alcohol use disorder with cirrhosis and esophageal varices. Patient was transferred from outside hospital with hematemesis and had and esophageal perforation following placement of a Sengstaken-Tony (SB) tube at an outside hospital. COMPARISON: CT Chest 04/24/2018. TECHNIQUE: The patient ingested water-soluble contrast under intermittent fluoroscopic monitoring. Contrast: ORAL: 15 ml of OMNIPAQUE 350 Fluoroscopy radiation summary: Fluoroscopy time: 0:48 (min:sec). Air kerma: 13.3 mGy. RESULT: Senior Software Test Engineer: Right thoracostomy tube remains in place. Right IJ venous catheter with the tip in the mid-lower SVC. Left IJ venous catheter with the tip near at the right atrium. Right basilar atelectasis/consolidative opacities. Small, loculated right pleural effusion. Patient ingested water-soluble contrast. There is immediate extraluminal contrast leak extending from the RIGHT side of the mid esophagus at the approximate level of T6-T7, extending freely into the RIGHT pleural space, consistent with esophageal perforation. No definitive communication with the RIGHT bronchial tree on limited assessment. The study was performed by MARTA Ratliff, under the supervision of Dr. العلي, who was present for the critical portion of the exam. Images associated with this study were submitted for interpretation and reviewed by Dr. العلي. IMPRESSION: PERSISTENT RIGHT MIDESOPHAGEAL PERFORATION DESCRIBED, CORRELATING WITH PRIOR. Steel Turner: NIDHI Transcribe Date/Time: Apr 27 2018 2:32P Dictated by : MARTA RATLIFF This examination was interpreted and the report reviewed and electronically signed by: GRETA العلي DO on Apr 27 2018 3:15PM EST [id number] PROGRESS Observed: 04/27/2018 Status: COMPLETED Source: [place] 2:[address] [facility] [facility] REPOSITORY O ID: [id number] Author: Maranda Gomes Service: (none) Author Type: (none) Type: Progress Notes Filed: 04/27/2018 2:24 PM Note Text: Radiology Service Progress Note PATIENT NAME: Lazaro Villafana DATE OF SERVICE: April 27, 2018 TIME: 2:22 PM PATIENT IDENTITY VERIFICATION COMPLETED USING TWO (2) METHODS: Patient confirmed name verbally and Date of . PATIENT GENDER DATA: Male PATIENT RELEVANT IMPLANT DATA REVIEWED: Yes RADIOLOGY DEPARTMENT: General X-ray: Exam(s) Completed: GI/ Procedure(s): Esophogram with water soluable contrast PERIPHERAL IV DATA: Not applicable SIGNED BY: Maranda Boggsasley Rt April 27, 2018 2:22 PM THERAPY NT Observed: 04/27/2018 Status: COMPLETED Source: [place] 1:[address] [facility] REPOSITORY HNO ID: [id number] Author: Ekaterina (Pt) Sagrario Service: Physical Therapy Author Type: Physical Therapist Type: Therapy (PT/OT/Speech/Resp) Filed: 04/27/2018 1:46 PM Note Text: PHYSICAL THERAPY MISSED VISIT SERVICE DATE: 04/27/2018 SERVICE TIME: 1343 to 1343 ROOM: [place] [address] Attempted Treatment. Patient not seen due to Test/Procedure. Currently leaving the unit with transport for esophogram. Attempted in the AM and RN advised deferring PT d/t agitation. SIGNATURE: Ekaterina Zabala PT PATIENT NAME: Lazaro Villafana DATE: April 27, 2018 TIME: 1:44 PM XR CHEST 1V FRONTAL Observed: 04/27/2018 Status: F Source: [facility] 12:59 PM [facility] REPOSITORY * * *Final Report* * * DATE OF EXAM: Apr 27 2018 12:59PM [facility] 5376 - XR CHEST 1V FRONTAL PORT / PROCEDURE REASON: Evaluate tube, line or lead position * * * * Physician Interpretation * * * * EXAMINATION: CHEST RADIOGRAPH (PORTABLE SINGLE VIEW AP) Exam Date/Time: 04/27/2018 12:59 PM Clinical History: Evaluate tube, line or lead position, Post- operative / post-procedure assessment, asymptomatic, MQ: XCPMC_5 Comparison: 0401, same day RESULT: See impression. IMPRESSION: Lines, tubes, and devices: Interval placement of a left IJ venous catheter, the tip of which overlies the lower third of the SVC/right atrium. The tip of the right IJ venous catheter overlies the mid SVC. A right thoracostomy tube remains in place. Lungs and pleura: There is stable peripheral opacity in the right hemithorax associated with blunting of the right costophrenic angle, suggestive of a pleural effusion which may be loculated. A portion of the right pleural effusion courses in the fissures (pseudotumor). There is a patchy airspace opacity in the right mid to lower lung most commonly secondary to nonspecific atelectasis. The left lung appears clear. No pneumothorax is identified. Cardiomediastinal silhouette: Stable cardiomediastinal silhouette. The cardiac silhouette appears enlarged. Increased soft tissue density overlying the right tracheobronchial angle is likely secondary to venous distention. Steel Turner: PSCB Transcribe Date/Time: Apr 27 2018 2:06P Dictated by : WASHINGTON MONTANEZ MD This examination was interpreted and the report reviewed and electronically signed by: WASHINGTON MONTANEZ MD on Apr 27 2018 2:09PM EST [id number] NUTRITION Observed: 04/27/2018 Status: COMPLETED Source: [place] 12:53 PM [facility] REPOSITORY HNO ID: [id number] Author: Sari Weston Service: NST-Nutrition Support Team Author Type: Registered Dietitian Type: Nutrition Filed: 04/27/2018 1:02 PM Note Text: NUTRITION SUPPORT TEAM PROGRESS NOTE SERVICE DATE: 04/27/2018 SERVICE TIME: 1004 RECOMMENDED DIAGNOSIS: MILD PROTEIN-CALORIE MALNUTRITION per Registered Dietitian on 04/17 NUTRITION CARE PLAN Intervention: 1. ?Continue TPN ?- PN to provide 120gms 15% AA, 1170 dextrose calories, 1680ml?at 70ml/hr ?- orders pended with reduced K+ acetate, reduced NaPhos, slight incr MgSO4, MVI, MTE, 70u insulin (1:5 ratio), 100mg thiamine 2. ?Start 250ml IVPB lipids 20% fat emulsion MWF 04/27 ? Monitor and Evaluation: Goal: Meet >75% of estimated needs Monitor fluid/electrolyte balance Monitor labs, I/Os, vital signs, weight ? Discharge Nutrition Recommendations:? To be determined ? Per HPI: 52 year old male with a history of type II DM, poorly controlled HTN, CKD, COPD, tobacco smoker 2-3 PPD, alcohol use disorder with recent diagnosis of cirrhosis was transferred from [facility] with an esophageal perforation seen on EGD. Patient initially presented with hematemesis and melena with accompanying dizziness and shortness of breath. Transferred to [facility] SICU on 04/14 for further management. s/p EGD 04/15?which showed a deep esophageal tear. ?Plan for a minimum of NPO x 2 weeks. ?04/16 Right chest tube placed for effusion. Interval History: plan for new CVC today Pt is febrile with Tmax: 38.8 Resp: nasal cannula I/O's: Intake/Output Summary (Last 24 hours) at 04/27/18 1257 Last data filed at 04/27/18 1200 Gross per 24 hour Intake 3466 ml Output 2740 ml Net 726 ml overall 61273.6 Abdomen: not assessed Last BM: 04/26 Enteral access: ?n/a; plan for EGD guided post pyloric feeding tube placement Parenteral access: ?right IJ TLC placed 04/14 Labs: hypernatremia, hyperchloremia, hypocapnia, Mg suboptimal, K+ trended up Blood Gases: n/a Blood sugars: 113, 126, 123 Cultures: blood cx x 2 in process Imaging: n/a Nutritional Intake: Intake History BI DATA ARCHITECT: Unable to determine Current intake: 04/17: ?Average 5 day intakes meeting <50% of estimated energy need.s started on PN 04/17 due to esophageal tear, plan for NPO x 2 weeks 04/18: currently goal kcals, PN 940 kcals, 110 g pro + propofol 765 kcals/day 12: ?TPN wirh orders 04/17 - 04/19 to provide 110gms protein and 940 claories + additional calories from propofol (04/19 provided 626 calories) 04/21 - 04/22: ?PN with orders 04/20 - 04/21?to provide 100gms protein and 1000 calories + additional calories from propofol 04/25: ?PN with orders 04/22 - 04/24 to provide 110gms protein and 1040 calories 04/26 - 04/27: PN with orders 04/25 - 04/26 to provide 120gms protein and 1600 calories Current Diet Order DIET NPO Lines and Drains: Central Line Triple Lumen 04/14/18 2319 Non-tunneled Right Neck (Active) Peripheral 04/14/18 2344 Left Antecubital 18 Gauge (Active) Indwelling Urinary Catheter 04/25/18 1916 Mcclain 16 Fr (Active) Chest Tube 04/16/18 2100 Right 28 Fr (Active) Height: 177.8 cm (5' 10) Admission Weight: 106.1 kg (233 lb 14.5 oz) Current Weight: 104.3 kg (229 lb 15 oz) Body mass index is 32.99 kg/m?. Usual body weight ?Unable to determine? No weight history available. ? Estimated nutrition goals: [place] body weight: 75.4 kg Dosing weight: 106?kg (04/14; BMI 33.5kg/m2)?? Calorie needs 5774-7408?kilocalories determined by = 15-20?kcals/kg ?Dosing?weight? Protein needs: 90 - 121?grams determined by 1.2 -1.6g/kg ideal?weight?- due to CKD Temp (24hrs), Av.4 ?C (99.3 ?F), Min:36.6 ?C (97.9 ?F), Max:38.8 ?C (101.8 ?F) Recent Labs 04/27/18 0237 GLUC 133* BUN 42* CREAT 1.17 NA 149* K 4.8 CHLOR 116* CO2 21* P 3.9 HB 7.3* HCT 23.8* WBC 6.78 MG 1.9 Vitamin and Mineral Labs in the past year:No results for input(s): CHROMIUM, COPPER, MANGANESE, SELENIUM, VITAMINA, VITB1, VITB2, VITB6, B12, METHYLMAL, VITD25, VITAMINE, VITAK, ZINC, TIBC, FE, JOHANNY in the last 8784 hours. MNT Billing Type: Re-assess/15 min 2 units SIGNATURE: Sari Weston RD [facility] PATIENT NAME: Lazaro Villafana DATE: April 27, 2018 TIME: 12:54 PM PAGER: [phone] PROCEDURE Observed: 04/27/2018 Status: COMPLETED Source: [place] 11:59 AM [facility] REPOSITORY [facility] ID: [id number] Author: Rosa Maria Gan Service: Critical Care Author Type: Anesthesiologist Type: Procedures Filed: 04/27/2018 1:36 PM Note Text: SICU PROCEDURE NOTE PROCEDURE DATE: 04/27/2018 PROCEDURE START TIME: 11:35 AM INFORMED CONSENT Please refer to the electronically signed consent form, located under the Encounters tab of the electronic medical record. [place] Protocol / Safety Checklist The sign in communication was completed. The procedural team confirmed the correct patient, the correct procedure and the correct site during the audible time out. The time out was affirmed. The sign out discussion was completed. UNIVERSAL PROTOCOL / SAFETY CHECKLIST Sign in Communication: Completed Time Out: Team Confirms the Correct Patient, Correct Procedure, Correct Site and Site Marking, Correct Position (if applicable), Prep and Dry Time (if applicable). Time: 11:35 AM Affirmation of Time Out: YES Sign Out Discussion: Completed PROCEDURE: CENTRAL VENOUS LINE INSERTION Indication: Total parenteral nutrition Insertion Type: New stick Site: Left internal jugular vein Inserted By: RONY Warner resident Supervision: Dr. Rosa Maria Gan [facility] Central Line Insertion checklist, attached to the Central Line-Associated Bloodstream Infection Prevention Policy, was utilized during this procedure. Ultrasound Used for Insertion: Yes, image not captured All personnel involved with the procedure used caps, masks with eye hawkins, sterile gowns and sterile gloves. The area was prepped with chlorhexidine gluconate and draped with a full-body sterile drape following the usual aseptic technique . Anesthesia was obtained with local infiltration of 1% lidocaine. The vessel was cannulated under direct ultrasound visualization with a 6.35 cm, 18 gauge single lumen catheter on the first attempt. The vessel was transduced to confirm venous placement. A J-tipped spring wire was passed into the vein through the indwelling catheter and left in situ while the catheter was removed. A small skin incision was made and the tract was dilated with a semi-rigid tissue dilator. A 20 cm triple-lumen, 7 Fr, non-tunneled, pressure injectable, antimicrobial catheter was advanced over the guidewire and left in situ while the guidewire was removed. All ports were capped with sterile site caps, venous blood was aspirated from all ports and all ports were flushed with sterile saline solution. The catheter was secured in place at 20 cm with sterile sutures and a sterile, transparent, occlusive chlorhexidine dressing was placed over the site. A portable CXR was ordered. All catheters, needles and wires were accounted for and intact. The patient tolerated the procedure well and without apparent complications No Specimens Collected Unless Noted Here Estimated Blood Loss: None SIGNATURE: Gloria Crawford MD PATIENT NAME: Lazaro Villafana DATE: April 27, 2018 TIME: 11:59 AM PAGER/CONTACT #: [phone] SICU STAFF NOTE I was present for supervision of placement of L IJ triple lumen central line. Rosa Maria Gan MD CONSULT PROG Observed: 04/27/2018 Status: COMPLETED Source: [place] 10:18 AM [facility] REPOSITORY HNO ID: [id number] Author: Francois Gann Service: Thoracic Surgery Author Type: Resident Type: Consult Progress Note Filed: 04/27/2018 10:20 AM Note Text: [facility] TH[facility]ACIC SURGERY CONSULT PROGRESS NOTE Lazaro Villafana [id number] PRIMARY SERVICE: HOSPITAL DAY: # 13 INTERVAL HISTORY No acute events. Pt has some confusion. Ct output 150cc. EGD yesterday indicates well healing esophageal tear. PHYSICAL EXAM BP 146/81 Pulse 72 Temp 37.3 ?C (99.1 ?F) (Oral) Resp 22 Ht 177.8 cm (5' 10) Wt 104.3 kg (229 lb 15 oz) SpO2 97% BMI 32.99 kg/m? Intake/Output Summary (Last 24 hours) at 04/27/18 1018 Last data filed at 04/27/18 1000 Gross per 24 hour Intake 3466 ml Output 2740 ml Net 726 ml Constitutional: No acute distress HEENT: EOM's intact Resp: Respiratory effort: normal, CT SS, no air leak, on suction Cardiovascular: Cardiac: Regular rate AND rhythm Integumentary: Warm Musculoskeletal: No deformities Neurological/Psychiatric: Alert, some mild confusion Additional systems reviewed: No additional systems reviewed DATA Recent Labs 04/27/18 0237 04/26/18 0148 04/25/18 0215 WBC 6.78 7.02 8.65 HB 7.3* 6.9* 7.4* HCT 23.8* 22.2* 23.5* PLT 132* 131* 131* Recent Labs 04/27/18 0237 04/26/18 0148 04/25/18 0215 NA 149* 148* 147* K 4.8 4.0 4.4 CO2 21* 25 24 BUN 42* 46* 45* CREAT 1.17 1.07 1.06 GLUC 133* 129* 157* MG 1.9 2.1 1.9 IMAGING I personally reviewed: CXR ASSESSMENT AND PLAN 52 year old male with multiple medical comorbidities now with likely partial thickness esophageal perforation, putatively from S-B tube placement at OSH. It is unlikely that this is the etiology of his massive hemoptysis, reportedly there were multiple varices that, in the background of cirrhosis is the likely etiology of his bleed. While he is requiring high doses of vasopressors, it is unlikely that the source of his shock is purely from his esophageal perforation given his lack of pleural effusion or free flowing contrast. 04/15 EGD showed 5cm esophageal laceration without active bleeding. 04/16 Right chest tube placed for effusion. 04/22 extubated. 04/22 Patient pulled NGT. 04/[address] by 4cm. 04/26 EGD, well healing esophageal tear. ? Plan - daily CXR - esophagram today - will f/u esophagram - possible tPA through chest tube today vs tomorrow Francois Gann MD,PhD Pager [phone] 04/27/2018 10:18 AM THERAPY NT Observed: 04/27/2018 Status: COMPLETED Source: [place] 9:54 AM [facility] REPOSITORY HNO ID: [id number] Author: Jerilyn Vasquez (Ot) Jessa Service: Occupational Therapy Author Type: Occupational Therapist Type: Therapy (PT/OT/Speech/Resp) Filed: 04/27/2018 2:55 PM Note Text: OCCUPATIONAL THERAPY MISSED VISIT SERVICE DATE: 04/27/2018 SERVICE TIME: 08 to 821 ROOM: [place] [address] Attempted Evaluation. Patient not seen due to Other: See Comment. Bedside nurse requesting hold for agitation in AM. Will follow up when able. SIGNATURE: Jerilyn Germain, OTR/L PATIENT NAME: Lazaro Villafana DATE: April 27, 2018 TIME: 2:54 PM PROGRESS Observed: 04/27/2018 Status: COMPLETED Source: [place] 9:15 AM [facility] REPOSITORY HNO ID: [id number] Author: Rosa Maria Gan Service: Critical Care Author Type: Anesthesiologist Type: Progress Notes Filed: 04/27/2018 2:36 PM Note Text: SURGICAL INTENSIVE CARE UNIT PROGRESS NOTE SERVICE DATE: April 27, 2018 SERVICE TIME: 9:15 AM Subjective Febrile overnight. Repeat blood cultures obtained. Will remove and replace central line. Objective VITAL SIGNS Temp: 37.3 ?C (99.1 ?F) Pulse: 72 BP: 146/81 MAP Non Invasive (Mean Arterial Pressure): 107 Resp: 22 SpO2: 97 % Current Facility-Administered Medications: Parenteral Nutrition - Adult INTRAVENOUS ONCE TPN (2200 START) metoprolol 10 mg injection (LOPRESSOR) 10 mg INTRAVENOUS q 6 HR dexmedetomidine 400 mcg in NaCl 0.9% 100 mL (PRECEDEX) 0.2- 1 mcg/kg/hr INTRAVENOUS CONTINUOUS OLANZapine orally disintegrating 10 mg tab(s) (ZyPREXA ZYDIS) 10 mg ORAL AT BEDTIME lidocaine 5 % 1 Patch (LIDODERM) 1 Patch TRANSDERMAL DAILY And lidocaine patch - REMOVE OTHER AT BEDTIME And lidocaine - VERIFY PATCH OTHER q 8 H labetalol 10 mg injection syringe (NORMODYNE) 10 mg INTRAVENOUS q 2 H PRN insulin glargine 20 Units pen (long acting) (LANTUS SOLOSTAR, BASAGLAR KWIKPEN) 20 Units SUBCUTANEOUS AT BEDTIME vancomycin iv piggyback 1 g in D5W 200 mL (VANCOCIN) 1 g INTRAVENOUS q 12 HR aztreonam 2 g in D5W 100 mL MB+ (AZACTAM) 2 g INTRAVENOUS q 6 HR heparin 5,000 Units injection 5,000 Units SUBCUTANEOUS q 12 H fluconazole 400 mg in NaCl (iso-osmotic) 200 mL (DIFLUCAN) 400 mg INTRAVENOUS DAILY vancomycin dosing and monitoring per pharmacy OTHER As Directed insulin regular human injection (short acting) (NovoLIN R,HumuLIN R) SUBCUTANEOUS q 6 H potassium chloride iv piggyback 20 mEq/100 mL 20 mEq INTRAVENOUS PRN Or potassium chloride 20-80 mEq CUP 20-80 mEq ORAL/FEEDING TUBE PRN magnesium sulfate in water 2 g in sterile water 50 ml 2 g INTRAVENOUS PRN sodium glycerophosphate 15 mmol in D5W 250 mL (GLYCOPHOS) 15 mmol INTRAVENOUS PRN Or sodium glycerophosphate 30 mmol in D5W 250 mL (GLYCOPHOS) 30 mmol INTRAVENOUS PRN Or sodium glycerophosphate 45 mmol in D5W 250 mL (GLYCOPHOS) 45 mmol INTRAVENOUS PRN dextrose 40 % 15 g 15 g ORAL PRN Or glucagon 1 mg injection (GLUCAGEN) 1 mg INTRAMUSCULAR PRN Or dextrose 50 % 12.5 g injection 12.5 g INTRAVENOUS PRN lactated ringers infusion 5-30 mL/hr INTRAVENOUS CONTINUOUS NaCl 0.9% 3-5 mL 3-5 mL INTRAVENOUS q 12 H fentaNYL 50 mcg/mL 25-50 mcg injection (SUBLIMAZE) 25-50 mcg INTRAVENOUS q 1 H PRN metroNIDAZOLE 500 mg PREMIX piggyback (FLAGYL) 500 mg INTRAVENOUS q 8 H ipratropium-albuterol 3 mL nebulizer solution (DUONEB) 3 mL INHALATION q 4 H PRN pantoprazole 40 mg injection (PROTONIX) 40 mg INTRAVENOUS BID AC (0600/1600) Cardiovascular: Regular rate and rhythm Abdomen: Soft and Nontender Extremities: Mild pedal edema Neuro: Awake, alert and oriented x3 Intake/Output Summary (Last 24 hours) at 04/27/18 0915 Last data filed at 04/27/18 0800 Gross per 24 hour Intake 3466 ml Output 2530 ml Net 936 ml Current Weight: Weight: 105.8 kg (233 lb) Admission Weight: Weight: 106.1 kg (233 lb 14.5 oz) RESPIRATORY 2L NC Recent Labs 04/26/18 1024 04/25/18 1043 PH 7.46* 7.47* PO2 70* 78* PCO2 35 34 BE 1 2 HCO3 24 25 LACT 1.0 1.1 CXR Findings: 04/27/2018 IMPRESSION: Lines, tubes, and devices: ?The tip of the right IJ venous catheter overlies the mid SVC. ?Single right thoracostomy tube remains in place. Lungs and pleura: ?Stable peripheral opacity in the right hemithorax with blunting of the right apex and the right costophrenic angle suggestive of a pleural effusion which may be loculated. ?A portion of the right pleural effusion courses in the fissures (pseudotumor). ?There is a patchy airspace opacity in the right mid to lower lung most commonly secondary to nonspecific atelectasis. ?The left lung appears clear. ?No pneumothorax is identified. Cardiomediastinal silhouette: ?Stable cardiomediastinal silhouette. ?No acute process identified. CT Chest Findings: 04/24/2018. IMPRESSION: 1. Small to medium-sized right loculated hydropneumothorax with associated right pleural thickening and adjacent right lower lobe atelectasis/consolidation (most likely due to infection), without significant change. Right thoracostomy tube stable in position. 2. Scattered ground-glass opacities within the upper lobes, new within the right upper lobe and stable to slightly decreased in the left upper lobe. These are most likely infectious/inflammatory in origin. Additional small ground-glass and small consolidative opacities within the inferior left lower lobe with adjacent centrilobular nodular opacities are most likely infectious and, in this location, may be related to aspiration. 3. Interval resolution of the left pleural effusion with overall decreased atelectasis in the left lower lobe. 4. Thoracic lymphadenopathy, likely reactive. 5. Known esophageal perforation; small locules of gas extending from the level of the distal esophagus into the right pleural space (images 90-93) may correspond to the site of perforation. INFUSION(S): none Patient Lines Assessed: Lines, Drains, and Airways Line Arterial Line 04/14/18 2320 Arterial Line Left Radial 12 days Central Line Triple Lumen 04/14/18 2319 Non-tunneled Right Neck 12 days Peripheral 04/14/18 2344 Left Antecubital 18 Gauge 12 days Drain Chest Tube 04/16/18 2100 Right 28 Fr 10 days Indwelling Urinary Catheter 04/25/181915 Mcclain 16 Fr 1 day Diagnostic tests reviewed for today's visit: Most recent labs and imaging results. Assessment/Plan Neuro:? AANDOx3, extubated -- Prn fentanyl for pain -- Continue lidocaine patch -- Zyprexa at night for agitation -- Also received Precedex last night; weaning off today CV:? Hx of HTN on losartan and amlodipine at home. -- HDS off pressors -- PRN labetalol for HTN -- Scheduled metoprolol 10mg q6h until able to restart home PO meds; hold parameters in place ? Pulm:? Hx of COPD. Stable respiratory fxn on RA. CT chest with loculated R pleural effusion. CXR with R loculated pleural effusion, interstitial and alveolar opacities unchanged. -- Duonebs prn -- Monitor chest tube output Renal:??(baseline Cr ~1.2 from 02/2018) -- Stable kidney function, good UOP -- Discontinue Mcclain ? GI:? Likely partial thickness mid-distal esophageal perforation, not amenable to stenting. EtOH cirrhosis with portal HTN, grade [address] Chest 04/24: Known esophageal perforation; small locules of gas extending from the level of the distal esophagus into the right pleural space (images 90-93) may correspond to the site of perforation. -- NPO -- NGT removed by patient (04/22); no need to replace NGT per thoracic (do not place blindly) -- repeat EGD 04/26 showed that esophagus is healing appropriately and there were no varices or active bleeding in esophagus. Corpak placed during EGD but patient subsequently removed corpak shortly after placement. -- Esophagram today ? Heme:? -- Transfused 1u pRBC for Hgb 6.9 -- Transfuse to keep Hgb >7 -- SQH ? Fluid/Electrolyte/Nutrition: -- NPO -- Replete lytes as needed -- TPN -- Will change from LR to D5W for carrier fluid given hypernatremia ? Endo:? Hx of IDDM, HgbA1c 8.2. -- Continue lantus 20 units qHS -- ISS3 -- Nutrition will adjust lantus in TF ID:?Esophageal tear and perforation. Aztreonam and flagyl at OSH. -- Intermittent low grade fevers; febrile overnight to 38.8 -- MSSA PCR positive, MRSA PCR negative -- Started Vancomycin on 04/20 per ID recs to cover for GPC -- transitioned cefepime to aztreonam 04/22 -- also on fluconazole (started 04/15), flagyl (started 04/15) -- allergy consult for skin test - negative - tolerated cefepime -- ID following, appreciate recs -- Will remove R IJ central line from 04/14 and replace with new central line. Will remove A-line from 04/14. ? PPX:? -- GI ppx - pantoprazole given GI bleed -- VTE ppx - 5000u BID Medication and Non-Pharmacologic VTE Prophylaxis/Anticoagulants Anticoagulant AND Antiplatelet Medications Start Dose Route Frequency Ordered Stop 04/21/18 0930 heparin 5,000 Units injection 5,000 Units SUBCUTANEOUS EVERY 12 HOURS 04/21/18 0901 -- 04/14/18 2100 pneumatic compression stockings (nc,oh) 04/14/18 2100 activity - mobilize patient (nc,ut) VTE Prophylaxis: VTE prophylaxis appropriate SIGNATURE: Gloria Crawford MD PATIENT NAME: Lazaro Villafana DATE: April 27, 2018 TIME: 9:15 AM PAGER/CONTACT #: [phone] SICU STAFF NOTE I have seen and reviewed the patient today, including physical examination at bedside with the SICU Housestaff and verifying the findings (see resident's documentation); reviewing labs, Xrays; discussing with primary physician and consultants; and developing plan of care with the bedside nurse. This care required my full attention and direct personal management in prevention of imminent clinical deterioration. [LEVEL III] ? REASON FOR SICU ADMISSION AND PERTINENT RECENT HISTORY: 52 year old man with history of T2DM, HTN, COPD, CKD, alcohol/tobacco abuse, liver cirrhosis with esophageal varices who presented to [facility] after developing a partial thickness esophageal perforation. Initially required intubation, has now been extubated. On broad-spectrum antibiotics with right sided chest tube in place. Intermittent low-grade fevers. Occasionally has agitation delirium. ? CURRENTLY: On dexmedetomidine infusion. Still waiting for esophogram. Chest tube continuing to drain brown brackish fluid. Spiked a fever to 38.7 overnight. ? DAILY ASSESSMENTS: Restraints -Necessary for altered mental status/risk of self-harm (pulling on life support devices, etc) ? Central Access -Necessary. Personal evaluation has established that ongoing need exists for TPN Sedation interruption -Not applicable ? Continued need for urinary catheter: D/C Urinary Catheter ? IMPRESSION AND PLAN: 52 year old man with unrepaired partial thickness esophageal perforation. Has ongoing mediastinitis with fevers and purulent chest tube output as well as hydropneumothorax on chest CT. Is receiving appropriate antibiotic therapy. Stable and clinically improved from a cardiac and pulmonary standpoint. No pressors, on minimal O2 requirement. Underwent EGD, partial thickness tear is resolving. Patient did not tolerate Corpak in place and removed it himself. ? Acute post-operative pain: IV fentanyl PRN, has lidocaine patches over chest tube site as well ? Hypertension: continue IV metoprolol ? Acute respiratory insufficiency, RLL lung consolidation, COPD: doing well on RA to 2L NC currently. Will encourage IS use, ambulation, out of bed ? Mediastinitis related to esophageal perforation: Continue aztreonam, fluconazole, flagyl, vancomycin. Thoracic surgery, general surgery, and GI following. S/p EGD this morning with improvement. Esophogram today - pending results, may need TPA in chest tube vs. VATS. Appreciate surgical teams input. ? T2DM: SSI, target blood glucose < 200 ? Severe protein-calorie malnutrition: patient TPN-dependent, strict NPO until cleared by thoracic surgery. ? Hyperactive delirium: Olanzepine ordered. Weaning dexmedetomidine to off today ? Prophy: Protonix, SQH Lines: will discontinue RIJ line, place new LIJ central line. Discontinue mcclain Dispo: SICU ? CONSULT PROG Observed: 04/27/2018 Status: COMPLETED Source: [place] 8:01 AM [facility] REPOSITORY HNO ID: [id number] Author: Muriel Kumar) Panchito Service: Infectious Disease Author Type: Physician Type: Consult Progress Note Filed: 04/27/2018 9:02 PM Note Text: INFECTIOUS DISEASES PROGRESS NOTE Patient Name: Lazaro Villafana Account #: Data Unavailable Admission Date: 04/14/2018 Date of Evaluation: 04/27/2018 Time of Evaluation: 10:20 AM INTERVAL HPI: Febrile to 101.5F, repeat blood cultures obtained. RIJ CVC replaced for LIJ CVC 04/27/18. CXR with some improvement over Right lung alvarez. Bedside GI scope performed 04/26/18. Partial esophageal tear reported healing well; corpak placed. Metronidazole 04/15 Fluconazole 04/15 Vancomycin 04/20 Aztreonam 04/22 MEDICATIONS: Current hospital medications: Parenteral Nutrition - Adult INTRAVENOUS ONCE TPN (0 START) metoprolol 10 mg injection (LOPRESSOR) 10 mg INTRAVENOUS q 6 HR dexmedetomidine 400 mcg in NaCl 0.9% 100 mL (PRECEDEX) 0.2- 1 mcg/kg/hr INTRAVENOUS CONTINUOUS OLANZapine orally disintegrating 10 mg tab(s) (ZyPREXA ZYDIS) 10 mg ORAL AT BEDTIME lidocaine 5 % 1 Patch (LIDODERM) 1 Patch TRANSDERMAL DAILY lidocaine patch - REMOVE OTHER AT BEDTIME lidocaine - VERIFY PATCH OTHER q 8 H labetalol 10 mg injection syringe (NORMODYNE) 10 mg INTRAVENOUS q 2 H PRN insulin glargine 20 Units pen (long acting) (LANTUS SOLOSTAR, BASAGLAR KWIKPEN) 20 Units SUBCUTANEOUS AT BEDTIME vancomycin iv piggyback 1 g in D5W 200 mL (VANCOCIN) 1 g INTRAVENOUS q 12 HR aztreonam 2 g in D5W 100 mL MB+ (AZACTAM) 2 g INTRAVENOUS q 6 HR heparin 5,000 Units injection 5,000 Units SUBCUTANEOUS q 12 H fluconazole 400 mg in NaCl (iso-osmotic) 200 mL (DIFLUCAN) 400 mg INTRAVENOUS DAILY vancomycin dosing and monitoring per pharmacy OTHER As Directed insulin regular human injection (short acting) (NovoLIN R,HumuLIN R) SUBCUTANEOUS q 6 H potassium chloride iv piggyback 20 mEq/100 mL 20 mEq INTRAVENOUS PRN potassium chloride 20-80 mEq CUP 20-80 mEq ORAL/FEEDING TUBE PRN magnesium sulfate in water 2 g in sterile water 50 ml 2 g INTRAVENOUS PRN sodium glycerophosphate 15 mmol in D5W 250 mL (GLYCOPHOS) 15 mmol INTRAVENOUS PRN sodium glycerophosphate 30 mmol in D5W 250 mL (GLYCOPHOS) 30 mmol INTRAVENOUS PRN sodium glycerophosphate 45 mmol in D5W 250 mL (GLYCOPHOS) 45 mmol INTRAVENOUS PRN dextrose 40 % 15 g 15 g ORAL PRN glucagon 1 mg injection (GLUCAGEN) 1 mg INTRAMUSCULAR PRN dextrose 50 % 12.5 g injection 12.5 g INTRAVENOUS PRN lactated ringers infusion 5-30 mL/hr INTRAVENOUS CONTINUOUS NaCl 0.9% 3-5 mL 3-5 mL INTRAVENOUS q 12 H fentaNYL 50 mcg/mL 25-50 mcg injection (SUBLIMAZE) 25-50 mcg INTRAVENOUS q 1 H PRN metroNIDAZOLE 500 mg PREMIX piggyback (FLAGYL) 500 mg INTRAVENOUS q 8 H ipratropium-albuterol 3 mL nebulizer solution (DUONEB) 3 mL INHALATION q 4 H PRN pantoprazole 40 mg injection (PROTONIX) 40 mg INTRAVENOUS BID AC (0600/1600) PHYSICAL EXAM: BP 146/81 Pulse 74 Temp 36.8 ?C (98.2 ?F) (Oral) Resp 20 Ht 177.8 cm (5' 10) Wt 104.3 kg (229 lb 15 oz) SpO2 99% BMI 32.99 kg/m? Lines: Nontunnelled triple lumen 04/14 in R neck and 04/27 Left neck ?GEN: Patient is sedated, sleeping (precedex) SKIN: No lesions noted. EYES: PERRLA NECK: R and L nontunnelled triple lumen catheter with no overlying erythema, swelling or warmth. LUNGS: clear to auscultation, no wheezes, or crackles. HEART: ?Regular rate/rhythm, normal heart sounds, and no murmurs. ABDOMEN: Soft, epigastric tenderness, hypoactive BS EXTREMITIES: Edema of hands b/l, no LE edema. +mcclain + right sided chest tube with unchanged, chunky fluid Labs: WBC 6.78, Hgb 7.3, Plt 132, Cr 1.17 +413 cc/24 hours Micro and radiology personally reviewed 04/14/18: Quantiferon gold testing negative for TB 04/14/18: Blood cultures 04/19 no growth 04/14/18: MSSA nasal swab positive 04/17/18: MSSA nasal swab positive 04/17/18: Blood cultures 2/2 no growth 04/20/18: Blood cultures 2/2 no growth 04/20/18: Tracheal aspirate cultures no organisms on gram stain and no growth on culture 04/22/18: Fungitell negative 04/23/18: Sputum cultures normal abby 04/24/18: Staphylococcal nasal swab negative 04/27/18: Blood cultures 2/[address] Chest 04/17/18: IMPRESSION: 1. ?NEW MULTIFOCAL CONSOLIDATIVE/GROUNDGLASS OPACITIES PREDOMINANTLY LEFT UPPER LOBE AND LINGULA, MAY REPRESENT MULTIFOCAL PNEUMONIA/ASPIRATION PNEUMONITIS, HEMORRHAGE OR ASYMMETRIC EDEMA. ?RADIOGRAPHIC FOLLOW-UP IS RECOMMENDED.. 2. ?BILATERAL LOWER LOBE AIRSPACE OPACITIES WITH VOLUME LOSS, RIGHT GREATER THAN LEFT, MOST LIKELY ATELECTASIS WITH POSSIBLE SUPERIMPOSED INFECTIOUS PROCESS. 3. ?LIMITED EVALUATION OF PREVIOUSLY SEEN MID ESOPHAGEAL CONTRAST EXTRAVASATION/TEAR. ?SMALL FOCI OF RIGHT-SIDED PNEUMOMEDIASTINUM, NOT SIGNIFICANTLY CHANGED. ?SMALL FOCI OF PNEUMOMEDIASTINUM HAVE DEVELOPED SUPERIORLY. ?THESE COULD BE FROM RECENT INTERVENTION. 4. SMALL BILATERAL PLEURAL COLLECTIONS HAVE SLIGHTLY INCREASED COMPARED TO PRIOR EXAM. ?THE AIR COMPONENTS OF THE RIGHT PLEURAL COLLECTION ARE NEW SINCE PREVIOUS EXAM, LIKELY RELATED TO ?INTERVAL PLACEMENT OF RIGHT APICAL CHEST TUBE. US upper extremities 04/20/18: IMPRESSION ? RIGHT SIDE - DEEP VEINS Technically limited study. Negative for acute deep vein thrombosis in vessels visualized. Unable to visualize the internal jugular vein due to IV lines and bandages. RIGHT SIDE - SUPERFICIAL VEINS Acute superficial thrombophlebitis in the cephalic vein antecubital fossa to wrist. Acute superficial thrombophlebitis in the basilic vein mid upper arm to wrist. Acute superficial thrombophlebitis in the median cubital vein at the antecubital fossa. ? LEFT SIDE - DEEP VEINS Spontaneous and respirophasic flow noted in the subclavian vein at proximal. CT Chest 04/21/18: IMPRESSION: 1. ?Unchanged right hydropneumothorax with right thoracostomy tube and associated right lower lobe atelectasis. ?Superimposed infection/aspiration cannot be excluded. 2. ?Groundglass opacities in the left upper lobe and lingula, likely infectious/inflammatory. ?Left apical consolidation has decreased since the prior exam. 3. ?Circumferential wall thickening of the esophagus. ?Known esophageal tear is not visualized on this examination. 4. ?Mediastinal lymphadenopathy, likely reactive. CT Chest 04/24/18: IMPRESSION: 1. Small to medium-sized right loculated hydropneumothorax with associated right pleural thickening and adjacent right lower lobe atelectasis/consolidation (most likely due to infection), without significant change. Right thoracostomy tube stable in position. 2. Scattered ground-glass opacities within the upper lobes, new within the right upper lobe and stable to slightly decreased in the left upper lobe. These are most likely infectious/inflammatory in origin. Additional small ground-glass and small consolidative opacities within the inferior left lower lobe with adjacent centrilobular nodular opacities are most likely infectious and, in this location, may be related to aspiration. 3. Interval resolution of the left pleural effusion with overall decreased atelectasis in the left lower lobe. 4. Thoracic lymphadenopathy, likely reactive. 5. Known esophageal perforation; small locules of gas extending from the level of the distal esophagus into the right pleural space (images 90-93) may correspond to the site of perforation. ? EGD 04/27/18: Impression: ? - Mucosal tear in the middle third of the esophagus ? healing well. ? - Portal hypertensive gastropathy. ? - Normal examined duodenum. ? - Feeding tube placement was successfully performed. ? Please confirm placement with KUB. ? - No specimens collected. IMPRESSION / PLAN 52 yo M with a h/o cirrhosis, EtoH related, CKD, COPD and reported + PPD in the past. Currently no clinical or imaging evidence of active pulmonary TB. Presenting with hemorrhagic shock secondary to hematemesis/esophageal tear c/b pneumomediastinum; no surgical intervention planned at this time. EGD 04/26/18 with reported improvement in esophageal tear (31-38cm). Plans for PICC for TPN noted. Plan: - continue vancomycin (goal trough 15-25), aztreonam, metronidazole, fluconazole as ordered for now, will likely continue antibiotics until blood cultures finalize - will follow blood cultures 04/27/17 Will discuss with attending, Perla Delgado PGY4 ID STAFF I evaluated the patient and personally participated in the jang components. I agree with the fellow's findings and plan as documented and have discussed the case and management of the patient's care with the fellow. I have reviewed and verified pertinent data. Ongoing esophageal tear and leak More awake, less agitated Agree with plan as above Will f/u plans for management of esophageal tear Muriel Flanagan MD Pager: [phone] April 27, 2018 NURSING PROG Observed: 04/27/2018 Status: COMPLETED Source: [place] 8:00 AM [facility] REPOSITORY HNO ID: [id number] Author: Fauzia Ferreira) BLAYNE Fallon Service: (none) Author Type: Registered Nurse Type: Nursing Progress Note Filed: 04/27/2018 10:58 AM Note Text: Nursing Progress: Topic: RESTRAINT NON-VIOLENT PATIENT NAME: Lazaro Villafana PATIENT LOCATION: [place] [address] The patient demonstrates Attempting to Remove Medical Devices Vital to Medical Stability as evidenced by the following behaviors pulling at chest tube and central line which pose an imminent danger to self or others. The following interventions were attempted but were not effective in protecting the patient's safety: Alarms, Bed in Low/Locked Position Next, a comprehensive assessment was performed and warranted placing the patient in Soft Bilateral Wrists, the least restrictive restraint needed to protect the patient's safety. Ongoing safety assessments and evaluation for earliest removal of restraints will be performed. DATE: April 27, 2018 TIME: 10:58 AM Fauzia Fallon RN PROGRESS Observed: 04/27/2018 Status: COMPLETED Source: [place] 4:58 AM [facility] REPOSITORY HNO ID: [id number] Author: Gab Castillo Service: General Surgery Author Type: Resident Type: Progress Notes Filed: 04/27/2018 8:39 AM Note Text: Acute Care Surgery PROGRESS NOTE Lazaro Villafana [id number] 04/27/2018 ASSESSMENT/PLAN: Lazaro Villafana is a 52 year old male with PMHx type II DM, poorly controlled HTN, CKD, COPD, tobacco smoker 2-3 PPD, alcohol use disorder with recent diagnosis of cirrhosis w/ esophageal varices who presents on transfer from OSH with hematemesis s/p EGD at OSH c/b esophageal laceration that appears to be contained; MELD > 20, currently with R-sided chest tube for hydropneumothorax, NPO and on TPN. Intermittent fevers. EGD done 04/26 with finding of partial mucosal tear in mid esophagus. ? - Continue strict NPO, TPN - No surgical intervention planned - Hgb 6.9 --> 7.3 after 1U pRBC yesterday, continue to trend - Follow Thoracic Surgery recommendations ?- Esophagram today - Pleural cultures from 04/23 thus far negative; will continue to follow - Continue to monitor chest tube output - Continue supportive/SICU care To be discussed with staff, After 6pm and on weekends and holidays, please page General Surgery on-call [phone] Gab Castillo MD General Surgery, PGY-1 SUBJECTIVE 24 hour events: No acute events Febrile overnight x 1 episode No pressor requirements On precedex due to agitation Pain is well controlled on current regimen. DIET NPO diet with no n/v OBJECTIVE Intake/Output Summary (Last 24 hours) at 04/27/18 0458 Last data filed at 04/27/18 0400 Gross per 24 hour Intake 3353 ml Output 2840 ml Net 513 ml PHYSICAL EXAM: BP 146/81 Pulse 76 Temp (Src) 101.8 (Oral) Resp 16 Ht 5' 10 (1.78m) Wt 233 lb 4 oz (105.8kg) SpO2 98% BMI 33.47 kg/(m2). Gen: Awake, alert Lungs: Breathing comfortably on 2L NC Abdomen: soft, ndnt Ext: No edema, SCDs in place DATA: Date 04/26/18699 - 04/27/1865804/27/18699 - 04/28/1859 Shift 4047-1126 5254-2511 5797-8821 24 Hour Total 5747-1823 6178-3150 6119-3574 24 Hour Total I N T A K E IV 738 738 LR 738 738 Blood Products 351 351 PRBC Intake (mL) 350 350 Packed Red Blood Cells Number of Units 1 1 TPN/PPN 777 777 TPN 777 777 Shift Total 351 1515 1866 O U T P U T Urine 840 277 057 0781 Output ( Indwelling Urinary Catheter 04/25/18 1916 Mcclain 16 Fr) 840 278 137 2529 Chest Tube 150 150 Chest Tube Output (Chest Tube 04/16/18 2100 Right 28 Fr) 150 150 # of BMs Stool Incontinence 1 x 1 x Number of BMs 1 x 1 x Shift Total 840 3165 490 3610 Weight (kg) 105.8 105.8 105.8 105.8 105.8 105.8 105.8 105.8 Diagnostic tests reviewed for today's visit: Most recent labs and imaging results. CBC, Coags, BMP, Mg, Phos Recent Labs 04/27/18 0237 04/26/18 1024 04/26/18 0148 04/25/18 1043 04/25/18 0215 WBC 6.78 -- 7.02 -- 8.65 HB 7.3* -- 6.9* -- 7.4* HCT 23.8* -- 22.2* -- 23.5* PLT 132* -- 131* -- 131* INR -- -- -- -- 1.5* NA 149* -- 148* -- 147* K 4.8 -- 4.0 -- 4.4 CHLOR 116* -- 112* -- 113* CO2 21* -- 25 -- 24 BUN 42* -- 46* -- 45* CREAT 1.17 -- 1.07 -- 1.06 GLUC 133* -- 129* -- 157* IC -- 1.13 -- 1.16 -- CA 8.0* -- 8.0* -- 8.0* MG 1.9 -- 2.1 -- 1.9 P 3.9 -- 3.4 -- 2.8 Liver Function, Amylase, AND Lipase Recent Labs 04/26/18 1024 04/25/18 1043 LACT 1.0 1.1 XR CHEST 1V FRONTAL Observed: 04/27/2018 Status: F Source: [facility] 4:08 AM [facility] REPOSITORY * * *Final Report* * * DATE OF EXAM: Apr 27 2018 4:08AM [facility] [id number] - XR CHEST 1V FRONTAL PORT / PROCEDURE REASON: Acute respiratory illness * * * * Physician Interpretation * * * * EXAMINATION: CHEST RADIOGRAPH (PORTABLE SINGLE VIEW AP) Exam Date/Time: 04/27/2018 4:08 AM Clinical History: Acute respiratory illness, MQ: [id number] Comparison: 1 day prior RESULT: See impression. IMPRESSION: Lines, tubes, and devices: The tip of the right IJ venous catheter overlies the mid SVC. Single right thoracostomy tube remains in place. Lungs and pleura: Stable peripheral opacity in the right hemithorax with blunting of the right apex and the right costophrenic angle suggestive of a pleural effusion which may be loculated. A portion of the right pleural effusion courses in the fissures (pseudotumor). There is a patchy airspace opacity in the right mid to lower lung most commonly secondary to nonspecific atelectasis. The left lung appears clear. No pneumothorax is identified. Cardiomediastinal silhouette: Stable cardiomediastinal silhouette. No acute process identified. Steel Turner: PSCB Transcribe Date/Time: Apr 27 2018 8:52A Dictated by : WASHINGTON MONTANEZ MD This examination was interpreted and the report reviewed and electronically signed by: WASHINGTON MONTANEZ MD on Apr 27 2018 8:53AM EST [id number] Observed: 04/27/2018 Status: F Source: [place] BLOOD CULTURE 2:51 AM [facility] REPOSITORY Culture Result - No growth 5 days Performed By: #### BLCUL #### [facility] [address] [id number] CBC AND DIFFERENTIAL Collected: 04/27/2018 Status: F Source: [place] 2:37 AM [facility] REPOSITORY TYPE CODE TESTS RESULT OUT OF REFERENCE UNITS RANGE LAB WBC 3.70-11.00 k/uL WBC 6.78 LAB RBC 4.20-6.00 m/uL Low RBC 2.64 LAB HGB 13.0-17.0 g/dL Low Hemoglobin 7.3 LAB HCT 39.0-51.0 % Low Hematocrit 23.8 LAB MCV 80.0-100.0 fL MCV 90.2 LAB MCH 26.0-34.0 pG MCH 27.7 LAB MCHC 30.5-36.0 g/dL MCHC 30.7 LAB RDWCV 11.5-15.0 % RDW-CV High 17.2 LAB PLTCT 150-400 k/uL Low Platelet Count 132 LAB MPV 9.0-12.7 fL MPV 10.9 LAB ANEUT % Neut% 71.9 LAB AANEUT 1.45-7.50 k/uL Abs Neut 4.87 LAB ALYMP % Lymph% 18.0 LAB AALYMP 1.00-4.00 k/uL Abs Lymph 1.22 LAB AMONO % Hendry% 6.9 LAB AAMONO <0.87 k/uL Abs Hendry 0.47 LAB AEOS % Eosin% 2.9 LAB AAEOS <0.46 k/uL Abs Eosin 0.20 LAB ABASO % Baso% 0.3 LAB AABASO <0.11 k/uL Abs Baso <0.03 LAB AUNRBC 0 /100 WBC NRBCs 0.0 LAB ABNRBC <0.01 k/uL Absolute nRBC <0.01 LAB DTYP DTYPE Auto Diff Performed By: #### CBCDIF, BMP, MG1, PHOS #### [facility] [address] [place] [address] BASIC METABOLIC PANL Collected: 04/27/2018 Status: F Source: [place] 2:[address] [facility] REPOSITORY TYPE CODE TESTS RESULT OUT OF REFERENCE UNITS RANGE LAB GLU 74-99 mg/dL High Glucose 133 Result Comment: The [place] [employer] (ADA) provides guidance for cutoff values for fasting glucose and random glucose. The ADA defines fasting as no caloric intake for at least 8 hours. Fas ting plasma glucose results between 100 to 125 mg/dL indicate increased risk for diabetes (prediabetes). Fasting plasma glucose results greater than or equal to 126 mg/dL meet the criteria for diagnosis of diabetes. In the absence of unequivocal hyperglycemia, results should be confirmed by repeat testing. In a patient with classic symptoms of hyperglycemia or hyperglycemic crisis, random plasma glucose results greater than or equal to 200 mg/dL meet the criteria for diagnosis of diabetes. Reference: Standards of Medical Care in Diabetes 2016, [place] [employer] Association. Diabetes Care. 2016.39(Suppl 1). LAB BUN 9-24 mg/dL BUN High 42 LAB CRET 0.73-1.22 mg/dL Creatinine 1.17 LAB NA 136-144 mmol/L Sodium High 149 LAB K 3.7-5.1 mmol/L Potassium 4.8 LAB CL 97-105 mmol/L Chloride High 116 LAB CO2 22-30 mmol/L Low CO2 21 LAB AGAP 9-18 mmol/L Anion Gap 12 LAB CA 8.5-10.2 mg/dL Low Calcium, Total 8.0 LAB GFRAA eGFR- Amer. >60 LAB GFRNAA . eGFR-All Other Races >60 Result Comment: eGFR (Estimated GFR) Units of measure: mL/min/1.73 meters squared eGFR is derived from the reexpressed MDRD Study equation using the following parameters: serum creatinine, age, gender and race. The creatinine assay has been calibrated to be traceable to IDMS. An eGFR <60 mL/min/1.73m2 for >3 months is consistent with chronic kidney disease. Refer to KDOQI guidelines for clinical interpretation. In patients with unstable renal function, e.g. those with acute kidney injury, the eGFR may not accurately reflect actual GFR. Performed By: #### CBCDIF, BMP, MG1, PHOS #### [facility] [address] [place] [address] MAGNESIUM Collected: 04/27/2018 Status: F Source: [place] 2:37 AM [facility] REPOSITORY TYPE CODE TESTS RESULT OUT OF REFERENCE UNITS RANGE LAB MG 1.7-2.3 mg/dL Magnesium 1.9 Performed By: #### CBCDIF, BMP, MG1, PHOS #### [facility] [address] [place] [address] PHOSPHORUS Collected: 04/27/2018 Status: F Source: [place] 2:37 AM [facility] REPOSITORY TYPE CODE TESTS RESULT OUT OF REFERENCE UNITS RANGE LAB PHOS 2.7-4.8 mg/dL Phosphorus 3.9 Performed By: #### CBCDIF, BMP, MG1, PHOS #### [facility] [address] [place], [place] [address] NURSING PROG Observed: 04/27/2018 Status: COMPLETED Source: [place] 2:12 AM [facility] REPOSITORY HNO ID: [id number] Author: Dakotah GhoshRn) BLYANE Hogan Service: (none) Author Type: Registered Nurse Type: Nursing Progress Note Filed: 04/27/2018 2:12 AM Note Text: Nursing Progress: Topic: RESTRAINT NON-VIOLENT PATIENT NAME: Lazaro Villafana PATIENT LOCATION: [place] [address] The patient demonstrates Attempting to Remove Medical Devices Vital to Medical Stability, Confusion, Lack of Understanding/Ability to Comply with Safety Directions, Impulsive Behavior as evidenced by the following behaviors Pulling lines and tubes which pose an imminent danger to self or others. The following interventions were attempted but were not effective in protecting the patient's safety: Alarms, Bed in Low/Locked Position, Call Light Within Reach, IV/Feeding Bag/Pump Out of Vision, Medications Reviewed, Modify Environment Next, a comprehensive assessment was performed and warranted placing the patient in Mitt Right, Soft Bilateral Wrists, the least restrictive restraint needed to protect the patient's safety. Ongoing safety assessments and evaluation for earliest removal of restraints will be performed. DATE: April 27, 2018 TIME: 2:12 AM Dakotah Hogan RN Observed: 04/27/2018 Status: F Source: [place] BLOOD CULTURE 1:44 AM [facility] REPOSITORY Culture Result - No growth 5 days Performed By: #### BLCUL #### [facility] [address] [place], [place] [address] ECG COMPLETE W Observed: 04/26/2018 Status: F Source: [place] INTERPRETATION 6:25 PM [facility] REPOSITORY NAME : LAZARO VILLAFANA PID : [id number] : 1965 Gender : Male Race : ORD : [id number] Procedure Date : Apr 26 2018 18:25:14 Edit Date : Apr 27 2018 12:06:05 Diagnosis:NORMAL SINUS RHYTHM NORMAL ECG Confirmed by MD TITUS, PhD, OBIE ([id number]) on 04/27/2018 12:05:58 PM Ventricular Rate : 92 BPM Atrial Rate : 92 BPM P-R Interval : 140 ms QRS Duration : 100 ms Q-T Interval : 384 ms QTC Calculation(Bezet) : 474 ms P [place] : 47 degrees R [place] : 44 degrees T [place] : 39 degrees Test Reason : hematemesis Location : 152 : [id number] Overread By : MD TITUS, PhD,OBIE Edited By : MD TITUS, PhD,OBIE Referred By : LITA NATH JR Acquired by : PILLO DRISCOLL NUTRITION Observed: 04/26/2018 Status: COMPLETED Source: [place] 1:50 PM [facility] REPOSITORY HNO ID: [id number] Author: Sari Weston Service: NST-Nutrition Support Team Author Type: Registered Dietitian Type: Nutrition Filed: 04/26/2018 1:58 PM Note Text: NUTRITION SUPPORT TEAM PROGRESS NOTE SERVICE DATE: 04/26/2018 SERVICE TIME: 1059 RECOMMENDED DIAGNOSIS: MILD PROTEIN-CALORIE MALNUTRITION per Registered Dietitian on 04/17 NUTRITION CARE PLAN Intervention: 1. ?Continue TPN ?- PN to provide 120gms 15% AA, 1120 dextrose calories, 1680ml at 70ml/hr ?- orders pended with d/c Na+ acetate, reduced NaPhos, incr KPhos, MVI, MTE, 85-70u insulin (1:5 ratio), 100mg thiamine ?- as able increase dextrose calories 2. ?Defer 250ml IVPB lipids 20% fat emulsion with propofol; propofol off 04/22; consider starting 04/27 ? Monitor and Evaluation: Goal: Meet >75% of estimated needs Monitor fluid/electrolyte balance Monitor labs, I/Os, vital signs, weight ? Discharge Nutrition Recommendations:? To be determined ? 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 Patient initially presented with hematemesis and melena with accompanying dizziness and shortness of breath. Transferred to F SICU on 04/14 for further management. s/p EGD 04/15?which showed a deep esophageal tear. ?Plan for a minimum of NPO x 2 weeks. ?04/16 Right chest tube placed for effusion. Interval History: may start trickle TF; continue PN Pt is afebrile with Tmax: 38, tachy Resp: room air I/O's: Intake/Output Summary (Last 24 hours) at 04/26/18 1353 Last data filed at 04/26/18 1000 Gross per 24 hour Intake 3543 ml Output 2080 ml Net 1463 ml overall +42873.6 Abdomen: not assessed Last BM: ?04/25?- black/brown Enteral access: ?n/a; plan for EGD guided post pyloric feeding tube placement Parenteral access: ?right IJ TLC placed 04/14 Labs: hypernatremia, hyperchloremia, PO4 improved/suboptimal, lactate 1.0, ionized calcium 1.13 Blood Gases: pH 7.46, pCO2 35, HCO3 24 Blood sugars: 130, 115, 123 Cultures: n/a Imaging: n/a Nutritional Intake: Intake History BI DATA ARCHITECT: Unable to determine Current intake: 04/17: ?Average 5 day intakes meeting <50% of estimated energy need.s started on PN 04/17 due to esophageal tear, plan for NPO x 2 weeks 04/18: currently goal kcals, PN 940 kcals, 110 g pro + propofol 765 kcals/day 04/20: ?TPN wirh orders 04/17 - 04/19 to provide 110gms protein and 940 claories + additional calories from propofol (04/19 provided 626 calories) 04/21 - 04/22: ?PN with orders 04/20 - 04/21?to provide 100gms protein and 1000 calories + additional calories from propofol 04/25: PN with orders 04/22 - 04/24 to provide 110gms protein and 1040 calories 04/26: PN with orders 04/25 to provide 120gms protein and 1600 calories Current Diet Order DIET NPO Lines and Drains: Central Line Triple Lumen 04/14/18 2319 Non-tunneled Right Neck (Active) Peripheral 04/14/18 2344 Left Antecubital 18 Gauge (Active) Indwelling Urinary Catheter 04/25/18 1916 Mcclain 16 Fr (Active) Chest Tube 04/16/18 2100 Right 28 Fr (Active) Height: 177.8 cm (5' 10) Admission Weight: 106.1 kg (233 lb 14.5 oz) Current Weight: 105.8 kg (233 lb 4 oz) Body mass index is 33.47 kg/m?. Usual body weight ?Unable to determine? No weight history available. ? Estimated nutrition goals: [place] body weight: 75.4 kg Dosing weight: 106?kg (04/14; BMI 33.5kg/m2)?? Calorie needs 4503-3939?kilocalories determined by = 15-20?kcals/kg ?Dosing?weight? Protein needs: 90 - 121?grams determined by 1.2 -1.6g/kg ideal?weight?- due to CKD Temp (24hrs), Av.6 ?C (99.7 ?F), Min:37.1 ?C (98.8 ?F), Max:38 ?C (100.4 ?F) Recent Labs 04/26/18 0148 GLUC 129* BUN 46* CREAT 1.07 NA 148* K 4.0 CHLOR 112* CO2 25 P 3.4 HB 6.9* HCT 22.2* WBC 7.02 MG 2.1 Vitamin and Mineral Labs in the past year:No results for input(s): CHROMIUM, COPPER, MANGANESE, SELENIUM, VITAMINA, VITB1, VITB2, VITB6, B12, METHYLMAL, VITD25, VITAMINE, VITAK, ZINC, TIBC, FE, JOHANNY in the last 8784 hours. MNT Billing Type: Re-assess/15 min 2 units SIGNATURE: Sari Weston RD [facility] PATIENT NAME: Lazaro Villafana DATE: April 26, 2018 TIME: 1:50 PM PAGER: [phone] THERAPY NT Observed: 04/26/2018 Status: COMPLETED Source: [place] 11:18 AM [facility] REPOSITORY HNO ID: [id number] Author: Jerilyn Germain Service: Occupational Therapy Author Type: Occupational Therapist Type: Therapy (PT/OT/Speech/Resp) Filed: 04/26/2018 11:19 AM Note Text: OCCUPATIONAL THERAPY MISSED VISIT SERVICE DATE: 04/26/2018 SERVICE TIME: 0835 to 0835 ROOM: [address] Evaluation. Patient not seen due to Test/Procedure. Multiple procedures planned for AM with bedside GI setting up. Will follow up when able. SIGNATURE: SATHISH Lam/L PATIENT NAME: Lazaro Villafana DATE: April 26, 2018 TIME: 11:18 AM GASA + ALL Collected: 04/26/2018 Status: F Source: [facility] 10:24 AM [facility] RADIANCE USE ONLY REPOSITORY TYPE CODE TESTS RESULT OUT OF REFERENCE UNITS RANGE LAB PH 7.35-7.45 pH 7.46 High LAB PCO2 34-46 mm Hg pCO2 35 LAB PO2 85-95 mm Hg pO2 70 Low LAB BE mmol/L Base Excess 1 LAB HCO3 22-26 mmol/L Bicarbonate 24 LAB CO2CT 22.0-28.0 mmol/L CO2 Content 25 LAB O2HB 95-98 % 92 Low Oxyhemoglobin, Art. LAB COHB 0-5.0 % 2.0 Carboxyhemoglobin ,Art LAB MHGB 0.4-1.5 % 0.6 Methemoglobin LAB TEMP C 37.0 Temperature, Body LAB PHTC 7.35-7.45 pH, Temp 7.46 High Corrected LAB PCO2T 34-46 mm Hg pCO2, Temp 35 Correct LAB PO2T mm Hg pO2, Temp 70 Corrected LAB NAB 135-146 mmol/L 147 High Sodium,Whole Bld LAB KWB 3.5-5.0 mmol/L Potassium, 4.0 Whole Bld LAB HGBB 13.0-17.0 g/dL 8.2 Low Hemoglobin,Total, ACL LAB HCTB 39.0-51.0 % Hematocrit, 26 Low ACL LAB IC 1.08-1.30 mmol/L Calcium, 1.13 Ion, WB LAB GLB 60-105 mg/dL 115 High Glucose,Whole Bld LAB LACT 0.5-2.2 mmol/L Lactate 1.0 LAB ABGCOM Blood Gas O2 Comm, Art Administration Result Comment: 21% LAB ACBDTE [id number] Notify Date, Art LAB ACBTME [id number] Notify Time, Art Performed By: #### ALLBG #### [facility] [address] [place], [place] [address] THERAPY NT Observed: 04/26/2018 Status: COMPLETED Source: [place] 9:[address] [facility] REPOSITORY HNO ID: [id number] Author: Ekaterina Zabala Service: Physical Therapy Author Type: Physical Therapist Type: Therapy (PT/OT/Speech/Resp) Filed: 04/26/2018 10:00 AM Note Text: PHYSICAL THERAPY MISSED VISIT SERVICE DATE: 04/26/2018 SERVICE TIME: 958 to 958 ROOM: [place] [address] Attempted Treatment. Patient not seen due to Test/Procedure. Patient just finished with bedside GI scope. Low H/H this AM. Will reattempt at another time. SIGNATURE: Ekaterina Zabala PT PATIENT NAME: Lazaro Villafana DATE: April 26, 2018 TIME: 10:00 AM PLAN OF CARE Observed: 04/26/2018 Status: COMPLETED Source: [place] 9:49 AM [facility] REPOSITORY HNO ID: [id number] Author: Alec Cheung (Fel) Service: Gastroenterology Author Type: Fellow Type: Plan of Care Filed: 04/26/2018 9:51 AM Note Text: EGD with Corpak placement (04/26/18): See procedure note for more details. Partial esophageal tear from 31-38 cm healing well. Stomach with moderate PHG. Duodenum normal. Corpak placed endoscopically. No varices noted. GI team will sign off at this time. Please do not hesitate to contact us with additional questions/concerns. Alec Cheung MD GI Fellow April 26, 2018 9:51 AM NURSING PROG Observed: 04/26/2018 Status: COMPLETED Source: [place] 9:30 AM [facility] REPOSITORY HNO ID: [id number] Author: Mikaela Pathak RN Service: (none) Author Type: Registered Nurse Type: Nursing Progress Note Filed: 04/26/2018 5:11 PM Note Text: Nursing Progress: Topic: RESTRAINT NON-VIOLENT PATIENT NAME: Lazaro Villafana PATIENT LOCATION: [place] [address] The patient demonstrates Attempting to Remove Medical Devices Vital to Medical Stability, Impulsive Behavior as evidenced by the following behaviors pt pulled out newly placed corpak, trying to pull out CVP line, climbing over bed rails, yelling foul words at staff members which pose an imminent danger to self or others. The following interventions were attempted but were not effective in protecting the patient's safety: Alarms, Bed in Low/Locked Position, Call Light Within Reach, IV/Feeding Bag/Pump Out of Vision, Medications Reviewed Next, a comprehensive assessment was performed and warranted placing the patient in Soft Bilateral Wrists, the least restrictive restraint needed to protect the patient's safety. Ongoing safety assessments and evaluation for earliest removal of restraints will be performed. DATE: April 26, 2018 TIME: 5:09 PM Mikaela Pathak RN NURSING PROG Observed: 04/26/2018 Status: COMPLETED Source: [place] 9:22 AM [facility] REPOSITORY HNO ID: [id number] Author: Spencer (Rn) BLAYNE Terrazas Service: (none) Author Type: Registered Nurse Type: Nursing Progress Note Filed: 04/26/2018 9:27 AM Note Text: 0900 Gi at bedside for scope. 3mg Versed and 50mcg Fentanyl given 0903 25mcg Fentanyl 0911 1mg Versed given 0917 Corpak being placed 0919 1mg Versed and 25mcg Fentanyl given PROGRESS Observed: 04/26/2018 Status: COMPLETED Source: [place] 8:42 AM [facility] REPOSITORY HNO ID: [id number] Author: Rosa Maria Gan Service: Critical Care Author Type: Anesthesiologist Type: Progress Notes Filed: 04/26/2018 12:35 PM Note Text: SURGICAL INTENSIVE CARE UNIT PROGRESS NOTE SERVICE DATE: April 26, 2018 SERVICE TIME: 8:45 AM Subjective No overnight events. CT ouput in last 24 hrs - 125 cc. No leukocytosis and blood cultures with NGTD. EGD and esophagram today. Objective VITAL SIGNS Temp: 37.3 ?C (99.1 ?F) Pulse: 93 BP: 146/81 MAP Non Invasive (Mean Arterial Pressure): 107 Resp: 25 SpO2: 100 % Current Facility-Administered Medications: fentaNYL 50 mcg/mL 100 mcg injection (SUBLIMAZE) 100 mcg INTRAVENOUS ONCE midazolam (PF) 5 mg injection (VERSED) 5 mg INTRAVENOUS ONCE Parenteral Nutrition - Adult INTRAVENOUS ONCE TPN (2200 START) OLANZapine orally disintegrating 10 mg tab(s) (ZyPREXA ZYDIS) 10 mg ORAL AT BEDTIME metoprolol 5 mg injection (LOPRESSOR) 5 mg INTRAVENOUS q 6 HR lidocaine 5 % 1 Patch (LIDODERM) 1 Patch TRANSDERMAL DAILY And lidocaine patch - REMOVE OTHER AT BEDTIME And lidocaine - VERIFY PATCH OTHER q 8 H labetalol 10 mg injection syringe (NORMODYNE) 10 mg INTRAVENOUS q 2 H PRN insulin glargine 20 Units pen (long acting) (LANTUS SOLOSTAR, BASAGLAR KWIKPEN) 20 Units SUBCUTANEOUS AT BEDTIME vancomycin iv piggyback 1 g in D5W 200 mL (VANCOCIN) 1 g INTRAVENOUS q 12 HR aztreonam 2 g in D5W 100 mL MB+ (AZACTAM) 2 g INTRAVENOUS q 6 HR heparin 5,000 Units injection 5,000 Units SUBCUTANEOUS q 12 H fluconazole 400 mg in NaCl (iso-osmotic) 200 mL (DIFLUCAN) 400 mg INTRAVENOUS DAILY vancomycin dosing and monitoring per pharmacy OTHER As Directed insulin regular human injection (short acting) (NovoLIN R,HumuLIN R) SUBCUTANEOUS q 6 H potassium chloride iv piggyback 20 mEq/100 mL 20 mEq INTRAVENOUS PRN Or potassium chloride 20-80 mEq CUP 20-80 mEq ORAL/FEEDING TUBE PRN magnesium sulfate in water 2 g in sterile water 50 ml 2 g INTRAVENOUS PRN sodium glycerophosphate 15 mmol in D5W 250 mL (GLYCOPHOS) 15 mmol INTRAVENOUS PRN Or sodium glycerophosphate 30 mmol in D5W 250 mL (GLYCOPHOS) 30 mmol INTRAVENOUS PRN Or sodium glycerophosphate 45 mmol in D5W 250 mL (GLYCOPHOS) 45 mmol INTRAVENOUS PRN dextrose 40 % 15 g 15 g ORAL PRN Or glucagon 1 mg injection (GLUCAGEN) 1 mg INTRAMUSCULAR PRN Or dextrose 50 % 12.5 g injection 12.5 g INTRAVENOUS PRN lactated ringers infusion 5-30 mL/hr INTRAVENOUS CONTINUOUS NaCl 0.9% 3-5 mL 3-5 mL INTRAVENOUS q 12 H fentaNYL 50 mcg/mL 25-50 mcg injection (SUBLIMAZE) 25-50 mcg INTRAVENOUS q 1 H PRN metroNIDAZOLE 500 mg PREMIX piggyback (FLAGYL) 500 mg INTRAVENOUS q 8 H ipratropium-albuterol 3 mL nebulizer solution (DUONEB) 3 mL INHALATION q 4 H PRN pantoprazole 40 mg injection (PROTONIX) 40 mg INTRAVENOUS BID AC (0600/1600) Cardiovascular: Regular rate and rhythm Abdomen: Soft and Nontender Extremities: Mild pedal edema Neuro: Awake, alert and oriented x3 Intake/Output Summary (Last 24 hours) at 04/26/18 0842 Last data filed at 04/26/18 0800 Gross per 24 hour Intake 3543 ml Output 2310 ml Net 1233 ml Current Weight: Weight: 105.8 kg (233 lb) Admission Weight: Weight: 106.1 kg (233 lb 14.5 oz) RESPIRATORY On RA Recent Labs 04/25/18 1043 PH 7.47* PO2 78* PCO2 34 BE 2 HCO3 25 LACT 1.1 CXR Findings: 04/26/2018 IMPRESSION: Lines, tubes, and devices: ?Stable position of right IJ central venous catheter and right thoracostomy tube. Lungs and pleura: ?Small to medium-sized right pleural effusion present, partially loculated. ?Mixed alveolar and interstitial opacities within the lungs bilaterally, right side greater than left, are without significant change and most likely reflect a combination of pulmonary edema and atelectasis; component of infection/aspiration not excluded in appropriate clinical setting. No large pneumothorax. Cardiomediastinal silhouette: ?Stable cardiomediastinal silhouette. CT Chest Findings: 04/24/2018. IMPRESSION: 1. Small to medium-sized right loculated hydropneumothorax with associated right pleural thickening and adjacent right lower lobe atelectasis/consolidation (most likely due to infection), without significant change. Right thoracostomy tube stable in position. 2. Scattered ground-glass opacities within the upper lobes, new within the right upper lobe and stable to slightly decreased in the left upper lobe. These are most likely infectious/inflammatory in origin. Additional small ground-glass and small consolidative opacities within the inferior left lower lobe with adjacent centrilobular nodular opacities are most likely infectious and, in this location, may be related to aspiration. 3. Interval resolution of the left pleural effusion with overall decreased atelectasis in the left lower lobe. 4. Thoracic lymphadenopathy, likely reactive. 5. Known esophageal perforation; small locules of gas extending from the level of the distal esophagus into the right pleural space (images 90-93) may correspond to the site of perforation. INFUSION(S): none Patient Lines Assessed: Lines, Drains, and Airways Line Arterial Line 04/14/18 2320 Arterial Line Left Radial 11 days Central Line Triple Lumen 04/14/18 2319 Non-tunneled Right Neck 11 days Peripheral 04/14/18 2344 Left Antecubital 18 Gauge 11 days Drain Chest Tube 04/16/18 2100 Right 28 Fr 9 days Indwelling Urinary Catheter 04/25/18 1916 Mcclain 16 Fr less than 1 day Diagnostic tests reviewed for today's visit: Most recent labs and imaging results. Assessment/Plan Neuro:? AANDOx3, extubated -- prn fentanyl for pain -- continue lidocaine patch -- Zyprexa at night for agitation -- One time dose of Zyprexa this morning for agitation following EGD ?CV:? Hx of HTN on losartan and amlodipine at home. -- HDS off pressors -- prn labetalol for HTN -- scheduled metoprolol 10mg q6h until able to restart home PO meds ? Pulm:? Hx of COPD. Stable respiratory fxn on RA. CT chest with loculated R pleural effusion. CXR today with R loculated pleural effusion, interstitial and alveolar opacities unchanged. -- duonebs prn -- monitor chest tube output Renal:??(baseline Cr ~1.2 from 02/2018) -- stable kidney function, good UOP -- discontinue mcclain ? GI:? Likely partial thickness mid-distal esophageal perforation, not amenable to stenting. EtOH cirrhosis with portal HTN, grade [address] Chest 04/24: Known esophageal perforation; small locules of gas extending from the level of the distal esophagus into the right pleural space (images 90-93) may correspond to the site of perforation. -- NPO -- NGT removed by patient (04/22); no need to replace NGT per thoracic (do not place blindly) -- repeat EGD today showed that esophagus is healing appropriately and there were no varices or active bleeding in esophagus. Corpak placed during EGD but patient subsequently removed corpak shortly after placement. -- Esophagram today ? Heme:? -- Transfused 1u pRBC for Hgb 6.9 -- Transfuse to keep Hgb >7 -- SQH ? Fluid/Electrolyte/Nutrition: -- NPO -- Replete lytes as needed -- TPN ? Endo:? Hx of IDDM, HgbA1c 8.2. -- Continue lantus 20 units qHS -- ISS3 -- Nutrition will adjust lantus in TF ? ID:?Esophageal tear and perforation. Aztreonam and flagyl at OSH. -- Intermittent low grade fevers -- MSSA PCR positive, MRSA PCR negative -- Started Vancomycin on 04/20 per ID recs to cover for [facility] -- transitioned cefepime to aztreonam 04/22 -- also on fluconazole (started 04/15), flagyl (started 04/15) -- allergy consult for skin test - negative - tolerated cefepime -- ID following, appreciate recs ? PPX:? -- GI ppx - pantoprazole given GI bleed -- VTE ppx - 5000u BID Medication and Non-Pharmacologic VTE Prophylaxis/Anticoagulants Anticoagulant AND Antiplatelet Medications Start Dose Route Frequency Ordered Stop 04/21/18 0930 heparin 5,000 Units injection 5,000 Units SUBCUTANEOUS EVERY 12 HOURS 04/21/18 0901 -- 04/14/18 2100 pneumatic compression stockings ([place]) 04/14/18 2100 activity - mobilize patient ([place] VTE Prophylaxis: VTE prophylaxis appropriate SIGNATURE: Gloria Crawford MD PATIENT NAME: Lazaro Villafana DATE: April 26, 2018 TIME: 8:45 AM PAGER/CONTACT #: [phone] I have seen and reviewed the patient today, including physical examination at bedside with the SICU Housestaff and verifying the findings (see resident's documentation); reviewing labs, Xrays; discussing with primary physician and consultants; and developing plan of care with the bedside nurse. This care required my full attention and direct personal management in prevention of imminent clinical deterioration. [LEVEL III] REASON FOR SICU ADMISSION AND PERTINENT RECENT HISTORY: 52 year old man with history of T2DM, HTN, COPD, CKD, alcohol/tobacco abuse, liver cirrhosis with esophageal varices who presented to [facility] after developing a partial thickness esophageal perforation. Initially required intubation, has now been extubated. On broad-spectrum antibiotics with right sided chest tube in place. Intermittent low-grade fevers. Occasionally has agitation delirium. CURRENTLY: Began confused and agitated overnight, required replacement of mcclain catheter and restraints. Underwent EGD today - esophageal tear healing appropriately, no varices noted. GI also placed Corpak endoscopically, which patient removed. DAILY ASSESSMENTS: Restraints -Necessary for altered mental status/risk of self-harm (pulling on life support devices, etc) Central Access -Necessary. Personal evaluation has established that ongoing need exists for TPN Sedation interruption -Not applicable Continued need for urinary catheter: D/C Urinary Catheter IMPRESSION AND PLAN: 52 year old man with unrepaired partial thickness esophageal perforation. Has ongoing mediastinitis with fevers and purulent chest tube output as well as hydropneumothorax on chest CT. Is receiving appropriate antibiotic therapy. Stable and clinically improved from a cardiac and pulmonary standpoint. No pressors, on minimal O2 requirement. Underwent EGD, partial thickness tear is resolving. Patient did not tolerate Corpak in place. Acute post-operative pain: IV fentanyl PRN, has lidocaine patches over chest tube site as well Hypertension: continue IV metoprolol today Acute respiratory insufficiency, RLL lung consolidation, COPD: doing well on RA to 2L NC currently. Will encourage IS use, ambulation, out of bed Mediastinitis related to esophageal perforation: Continue aztreonam, fluconazole, flagyl, vancomycin. Thoracic surgery, general surgery, and GI following. S/p EGD this morning with improvement. Esophogram pending. T2DM: SSI, target blood glucose < 200 Severe protein-calorie malnutrition: patient TPN-dependent, strict NPO until cleared by thoracic surgery. Hyperactive delirium: Olanzepine ordered Prophy: Protonix, SQH Lines: patient's central line is 11 days old. Will plan on PICC line placement once fevers resolve. Discontinuing mcclain catheter today. SIGNATURE: Rosa Maria Gan MD DATE: April 26, 2018 TIME: 12:29 PM CONSULT PROG Observed: 04/26/2018 Status: COMPLETED Source: [place] 8:39 AM [facility] REPOSITORY O ID: [id number] Author: Doris Hammer (Pharmacist) Service: Pharmacy Author Type: Pharmacist Type: Consult Progress Note Filed: 04/26/2018 8:44 AM Note Text: PHARMACY VANCOMYCIN DOSING NOTE Patient Name: Lazaro Villafana Admission Date: 04/14/2018 Date of Consult: 04/26/2018 Time of Consult: 8:39 AM Indication: Pneumonia Goal Range: 10-20 mcg/mL RECOMMENDATIONS/PLAN: Pharmacy consulted for vancomycin dosing for Lazaro Villafana, a 52 year old, male who is being treated with vancomycin for pneumonia. 1. Patient is currently ordered vancomycin 1 g IV q12h. Today is day 7 of total therapy and day 5 of current regimen. 2. The most recent vancomycin level was 14.4 mcg/mL drawn at 0148 on 04/26/18. This is an approximate 13-hour level on the 5th day of the current regimen. 3. The present dose of vancomycin is the recommended dosage for this patient at this time. Continue therapy as prescribed. 4. The next vancomycin level will be ordered for 5 to 7 days unless clinically indicated sooner. (Pharmacy will order) We will follow patient renal function, vancomycin levels and doses with you during the course of therapy. Additional recommendations will appear in follow up notes. If you have any questions, please contact Doris Hammer PharmD at . Age: [age] year old Allergies: ALLERGIES Allergen Reactions - Ciprofloxacin Unknown - Penicillin Unknown Tolerating cefepime Last 3 Encounter Wt Readings: Date: Wt: 04/14/2018 105.8 kg (233 lb 4 oz) 04/14/2018 97 kg (213 lb 13.5 oz) Last 1 Encounter Ht Readings: Date: Ht: 04/14/2018 177.8 cm (5' 10) CrCl: > 90 mL/min Temp (24hrs), Av.4 ?C (99.4 ?F), Min:36.6 ?C (97.9 ?F), Max:38 ?C (100.4 ?F) - Current Temp: 37.3 ?C (99.1 ?F) Labs BUN (mg/dL) Date Value 04/26/2018 46 (H) 04/25/2018 45 (H) 04/24/2018 50 (H) Creatinine (mg/dL) Date Value 04/26/2018 1.07 04/25/2018 1.06 04/24/2018 1.13 WBC (k/uL) Date Value 04/26/2018 7.02 04/25/2018 8.65 04/24/2018 8.99 Vancomycin Levels: Vancomycin, result (ug/mL) Date/Time Value 04/26/2018 0148 14.4 04/22/2018 0120 24.3 (H) DORIS HAMMER, PharmD CONSULT PROG Observed: 04/26/2018 Status: COMPLETED Source: [place] 5:35 AM [facility] REPOSITORY O ID: [id number] Author: Gordon Gamboa (Hermelindo) HERMELINDO Ly Service: Thoracic Surgery Author Type: Physician Bin Tripper Operator Type: Consult Progress Note Filed: 04/26/2018 8:47 AM Note Text: [facility] THOR[facility] SURGERY CONSULT PROGRESS NOTE Lazaro Villafana [id number] PRIMARY SERVICE: HOSPITAL DAY: # 12 INTERVAL HISTORY No acute events overnight. Pt continues to be intermittently febrile. ChT output 125cc PHYSICAL EXAM BP 146/81 Pulse 92 Temp (!) 38 ?C (100.4 ?F) (Oral) Resp 26 Ht 177.8 cm (5' 10) Wt 105.8 kg (233 lb 4 oz) SpO2 95% BMI 33.47 kg/m? Intake/Output Summary (Last 24 hours) at 04/26/18 0535 Last data filed at 04/26/18 0400 Gross per 24 hour Intake 1705 ml Output 2095 ml Net -390 ml Constitutional: No acute distress HEENT: EOM's intact Resp: Respiratory effort: normal, CT SS, no air leak, on suction Cardiovascular: Cardiac: Regular rate AND rhythm Integumentary: Warm Musculoskeletal: No deformities Neurological/Psychiatric: Alert Additional systems reviewed: No additional systems reviewed ? DATA Recent Labs 04/26/1814704/25/1821404/24/18 0441 WBC 7.02 8.65 8.99 HB 6.9* 7.4* 7.3* HCT 22.2* 23.5* 23.1* PLT 131* 131* 118* Recent Labs 04/26/1814704/25/1821404/24/18 0441 NA 148* 147* 145* K 4.0 4.4 4.5 CO2 25 24 22 BUN 46* 45* 50* CREAT 1.07 1.06 1.13 GLUC 129* 157* 165* MG 2.1 1.9 2.0 IMAGING I personally reviewed: CXR ASSESSMENT AND PLAN 52 year old male with multiple medical comorbidities now with likely partial thickness esophageal perforation, putatively from S-B tube placement at OSH. It is unlikely that this is the etiology of his massive hemoptysis, reportedly there were multiple varices that, in the background of cirrhosis is the likely etiology of his bleed. While he is requiring high doses of vasopressors, it is unlikely that the source of his shock is purely from his esophageal perforation given his lack of pleural effusion or free flowing contrast. 04/15 EGD showed 5cm esophageal laceration without active bleeding. 04/16 Right chest tube placed for effusion. 04/22 extubated. 04/22 Patient pulled NGT. 04/[address] by 4cm. ? Plan - daily CXR - esophagram today - per Gen surg, EGD with post-pyloric corpak placement - will f/u esophagram Case discussed with Dr. Soto ? Gordon Ly PA-C Pager [phone] 04/26/2018 5:35 AM CONSULT PROG Observed: 04/26/2018 Status: COMPLETED Source: [place] 5:16 AM [facility] REPOSITORY HNO ID: [id number] Author: Muriel Kumar) Panchito Service: Infectious Disease Author Type: Physician Type: Consult Progress Note Filed: 04/26/2018 7:51 PM Note Text: INFECTIOUS DISEASES PROGRESS NOTE Patient Name: Lazaro Villafana Account #: Data Unavailable Admission Date: 04/14/2018 Date of Evaluation: 04/26/2018 Time of Evaluation: 10:20 AM INTERVAL HPI: No acute events overnight. Ongoing known mediastinitis confirmed on repeat CT chest 04/21/18, no surgical intervention planned at this time. Possible repeat EGD this week. On TPN for nutrition, project 2 weeks of NPO status until esophageal perforation may have healed. Last fever 100.4F at 0400 04/26/18. Stable leukocytosis. OOB with therapy 04/25/18, did have some desaturations but stood. Mcclain catheter discontinued 04/25/18. Plans for PICC, though persistently febrile. Chest tube with ongoing drainage. Metronidazole 04/15 Fluconazole 04/15 Vancomycin 04/20 Aztreonam 04/22 MEDICATIONS: Current hospital medications: Parenteral Nutrition - Adult INTRAVENOUS ONCE TPN (2200 START) OLANZapine orally disintegrating 10 mg tab(s) (ZyPREXA ZYDIS) 10 mg ORAL AT BEDTIME metoprolol 5 mg injection (LOPRESSOR) 5 mg INTRAVENOUS q 6 HR acetaminophen 1,000 mg iv piggyback (OFIRMEV) 1,000 mg INTRAVENOUS q 8 H lidocaine 5 % 1 Patch (LIDODERM) 1 Patch TRANSDERMAL DAILY lidocaine patch - REMOVE OTHER AT BEDTIME lidocaine - VERIFY PATCH OTHER q 8 H labetalol 10 mg injection syringe (NORMODYNE) 10 mg INTRAVENOUS q 2 H PRN insulin glargine 20 Units pen (long acting) (LANTUS SOLOSTAR, BASAGLAR KWIKPEN) 20 Units SUBCUTANEOUS AT BEDTIME vancomycin iv piggyback 1 g in D5W 200 mL (VANCOCIN) 1 g INTRAVENOUS q 12 HR aztreonam 2 g in D5W 100 mL MB+ (AZACTAM) 2 g INTRAVENOUS q 6 HR heparin 5,000 Units injection 5,000 Units SUBCUTANEOUS q 12 H fluconazole 400 mg in NaCl (iso-osmotic) 200 mL (DIFLUCAN) 400 mg INTRAVENOUS DAILY vancomycin dosing and monitoring per pharmacy OTHER As Directed insulin regular human injection (short acting) (NovoLIN R,HumuLIN R) SUBCUTANEOUS q 6 H potassium chloride iv piggyback 20 mEq/100 mL 20 mEq INTRAVENOUS PRN potassium chloride 20-80 mEq CUP 20-80 mEq ORAL/FEEDING TUBE PRN magnesium sulfate in water 2 g in sterile water 50 ml 2 g INTRAVENOUS PRN sodium glycerophosphate 15 mmol in D5W 250 mL (GLYCOPHOS) 15 mmol INTRAVENOUS PRN sodium glycerophosphate 30 mmol in D5W 250 mL (GLYCOPHOS) 30 mmol INTRAVENOUS PRN sodium glycerophosphate 45 mmol in D5W 250 mL (GLYCOPHOS) 45 mmol INTRAVENOUS PRN dextrose 40 % 15 g 15 g ORAL PRN glucagon 1 mg injection (GLUCAGEN) 1 mg INTRAMUSCULAR PRN dextrose 50 % 12.5 g injection 12.5 g INTRAVENOUS PRN lactated ringers infusion 5-30 mL/hr INTRAVENOUS CONTINUOUS NaCl 0.9% 3-5 mL 3-5 mL INTRAVENOUS q 12 H fentaNYL 50 mcg/mL 25-50 mcg injection (SUBLIMAZE) 25-50 mcg INTRAVENOUS q 1 H PRN metroNIDAZOLE 500 mg PREMIX piggyback (FLAGYL) 500 mg INTRAVENOUS q 8 H ipratropium-albuterol 3 mL nebulizer solution (DUONEB) 3 mL INHALATION q 4 H PRN pantoprazole 40 mg injection (PROTONIX) 40 mg INTRAVENOUS BID AC (0600/1600) PHYSICAL EXAM: BP 146/81 Pulse 92 Temp (!) 38 ?C (100.4 ?F) (Oral) Resp 26 Ht 177.8 cm (5' 10) Wt 105.8 kg (233 lb 4 oz) SpO2 95% BMI 33.47 kg/m? Lines: Nontunnelled triple lumen 04/14 in R neck ?GEN: Patient is much improved from last week, interactive, engaged SKIN: No lesions noted. EYES: PERRLA NECK: R nontunnelled triple lumen catheter with no overlying erythema, swelling or warmth. LUNGS: clear to auscultation, no wheezes, or crackles. HEART: ?Regular rate/rhythm, normal heart sounds, and no murmurs. ABDOMEN: Soft, epigastric tenderness, hypoactive BS EXTREMITIES: Edema of hands b/l, no LE edema. Labs: WBC 7.02, Hgb 6.9, Plt 131, Cr 1.07 +733 cc/24 hours Micro and radiology personally reviewed 04/14/18: Quantiferon gold testing negative for TB 04/14/18: Blood cultures 04/19 no growth 04/14/18: MSSA nasal swab positive 04/17/18: MSSA nasal swab positive 04/17/18: Blood cultures 2/2 no growth 04/20/18: Blood cultures 2/2 no growth 04/20/18: Tracheal aspirate cultures no organisms on gram stain and no growth on culture 04/22/18: Fungitell negative 04/23/18: Sputum cultures normal abby 04/24/18: Staphylococcal nasal swab negative CT Chest 04/17/18: IMPRESSION: 1. ?NEW MULTIFOCAL CONSOLIDATIVE/GROUNDGLASS OPACITIES PREDOMINANTLY LEFT UPPER LOBE AND LINGULA, MAY REPRESENT MULTIFOCAL PNEUMONIA/ASPIRATION PNEUMONITIS, HEMORRHAGE OR ASYMMETRIC EDEMA. ?RADIOGRAPHIC FOLLOW-UP IS RECOMMENDED.. 2. ?BILATERAL LOWER LOBE AIRSPACE OPACITIES WITH VOLUME LOSS, RIGHT GREATER THAN LEFT, MOST LIKELY ATELECTASIS WITH POSSIBLE SUPERIMPOSED INFECTIOUS PROCESS. 3. ?LIMITED EVALUATION OF PREVIOUSLY SEEN MID ESOPHAGEAL CONTRAST EXTRAVASATION/TEAR. ?SMALL FOCI OF RIGHT-SIDED PNEUMOMEDIASTINUM, NOT SIGNIFICANTLY CHANGED. ?SMALL FOCI OF PNEUMOMEDIASTINUM HAVE DEVELOPED SUPERIORLY. ?THESE COULD BE FROM RECENT INTERVENTION. 4. SMALL BILATERAL PLEURAL COLLECTIONS HAVE SLIGHTLY INCREASED COMPARED TO PRIOR EXAM. ?THE AIR COMPONENTS OF THE RIGHT PLEURAL COLLECTION ARE NEW SINCE PREVIOUS EXAM, LIKELY RELATED TO ?INTERVAL PLACEMENT OF RIGHT APICAL CHEST TUBE. US upper extremities 04/20/18: IMPRESSION ? RIGHT SIDE - DEEP VEINS Technically limited study. Negative for acute deep vein thrombosis in vessels visualized. Unable to visualize the internal jugular vein due to IV lines and bandages. RIGHT SIDE - SUPERFICIAL VEINS Acute superficial thrombophlebitis in the cephalic vein antecubital fossa to wrist. Acute superficial thrombophlebitis in the basilic vein mid upper arm to wrist. Acute superficial thrombophlebitis in the median cubital vein at the antecubital fossa. ? LEFT SIDE - DEEP VEINS Spontaneous and respirophasic flow noted in the subclavian vein at proximal. CT Chest 04/21/18: IMPRESSION: 1. ?Unchanged right hydropneumothorax with right thoracostomy tube and associated right lower lobe atelectasis. ?Superimposed infection/aspiration cannot be excluded. 2. ?Groundglass opacities in the left upper lobe and lingula, likely infectious/inflammatory. ?Left apical consolidation has decreased since the prior exam. 3. ?Circumferential wall thickening of the esophagus. ?Known esophageal tear is not visualized on this examination. 4. ?Mediastinal lymphadenopathy, likely reactive. CT Chest 04/24/18: IMPRESSION: 1. Small to medium-sized right loculated hydropneumothorax with associated right pleural thickening and adjacent right lower lobe atelectasis/consolidation (most likely due to infection), without significant change. Right thoracostomy tube stable in position. 2. Scattered ground-glass opacities within the upper lobes, new within the right upper lobe and stable to slightly decreased in the left upper lobe. These are most likely infectious/inflammatory in origin. Additional small ground-glass and small consolidative opacities within the inferior left lower lobe with adjacent centrilobular nodular opacities are most likely infectious and, in this location, may be related to aspiration. 3. Interval resolution of the left pleural effusion with overall decreased atelectasis in the left lower lobe. 4. Thoracic lymphadenopathy, likely reactive. 5. Known esophageal perforation; small locules of gas extending from the level of the distal esophagus into the right pleural space (images 90-93) may correspond to the site of perforation. ? IMPRESSION / PLAN 52 yo M with a h/o cirrhosis, EtoH related, CKD, COPD and reported + PPD in the past. Currently no clinical or imaging evidence of active pulmonary TB. Presenting with hemorrhagic shock secondary to hematemesis/esophageal tear c/b pneumomediastinum; no surgical intervention planned at this time. EGD for later this week. Plans for PICC for TPN noted. Plan: - continue vancomycin (goal trough 15-25), aztreonam, metronidazole, fluconazole as ordered for now, will likely continue antibiotics until next EGD Will discuss with attendingPerla PGY4 ID STAFF I evaluated the patient and personally participated in the jang components. I agree with the fellow's findings and plan as documented and have discussed the case and management of the patient's care with the fellow. I have reviewed and verified pertinent data. Became more agitated today, received haldol prior to our exam No new complaints, but drowsy Agree with plan as above. Muriel Flanagan MD Pager: [phone] April 26, 2018 PROGRESS Observed: 04/26/2018 Status: COMPLETED Source: [place] 4:[address] [facility] REPOSITORY HNO ID: [id number] Author: Villa Thomas Service: General Surgery Author Type: Resident Type: Progress Notes Filed: 04/26/2018 7:08 AM Note Text: Acute Care Surgery PROGRESS NOTE Lazaro Villafana [id number] 04/26/2018 ASSESSMENT/PLAN: Lazaro Villafana is a 52 year old male with PMHx type II DM, poorly controlled HTN, CKD, COPD, tobacco smoker 2-3 PPD, alcohol use disorder with recent diagnosis of cirrhosis w/ esophageal varices who presents on transfer from OSH with hematemesis s/p EGD at OSH c/b esophageal laceration that appears to be contained; MELD > 20, currently with R-sided chest tube for hydropneumothorax, NPO and on TPN. Intermittent fevers. ? - Continue strict NPO - No surgical intervention planned - Hgb 6.9 this AM, will transfuse 1 u RBCs - Follow Thoracic Surgery recommendations - Esophagram today - EGD today reassess esophageal tear + post-pyloric Corpak placement - Pleural cultures from 04/23 thus far negative; will continue to follow - Continue supportive/SICU care - trend labs ? To be discussed with staff, SUBJECTIVE 24 hour events: No acute events Mildly febrile to 38 Pain is well controlled on current regimen. Getting OOB CT output 25 BMx1 OBJECTIVE Intake/Output Summary (Last 24 hours) at 04/26/18 0445 Last data filed at 04/26/18 0400 Gross per 24 hour Intake 2989 ml Output 2281 ml Net 708 ml PHYSICAL EXAM: BP 146/81 Pulse 90 Temp (Src) 100.4 (Oral) Resp 22 Ht 5' 10 (1.78m) Wt 233 lb 4 oz (105.8kg) SpO2 96% BMI 33.47 kg/(m2). General: alert, oriented, conversational CV: RRR Pulm: moderately labored breathing on room air Neck: no subQ emphysema/crepitus appreciated Abdomen: soft, non-distended Extremities: warm and well perfused DATA: Date 04/25/18 07 - 04/26/18 0659 04/26/18 07 - 04/27/18 0659 Shift 1980-5644 2686-2206 1677-1033 24 Hour Total 3006-8995 8207-9826 4034-4837 24 Hour Total I N T A K E IV 1079 1079 LR 1079 1079 TPN/PPN 626 626 TPN 626 626 Shift Total 1705 1705 O U T P U T Urine 645 064 115 8021 Void (ml) 100 100 Urine Incontinence/Not Saved 1 x 1 x Output ( Indwelling Urinary Catheter 04/25/18 191 Mcclain 16 Fr) 915 250 3417 Output ([REMOVED] Indwelling Urinary Catheter 04/14/182113 Admission to Hospital Mcclain 04/25/18 1200) 645 645 Chest Tube 25 25 Chest Tube Output (Chest Tube 04/16/18 2100 Right 28 Fr) 25 25 # of BMs Number of BMs 1 x 1 x Shift Total 645 862 501 5041 Weight (kg) 105.8 105.8 105.8 105.8 105.8 105.8 105.8 105.8 Diagnostic tests reviewed for today's visit: Most recent labs and imaging results. CBC, Coags, BMP, Mg, Phos Recent Labs 04/26/18 0148 04/25/18 1043 04/25/18 0215 04/24/18 0441 04/23/18 1215 WBC 7.02 -- 8.65 8.99 8.05 HB 6.9* -- 7.4* 7.3* 7.3* HCT 22.2* -- 23.5* 23.1* 23.1* PLT 131* -- 131* 118* 108* INR -- -- 1.5* -- 1.5* APTT -- -- -- -- 35.4* NA 148* -- 147* 145* -- K 4.0 -- 4.4 4.5 -- CHLOR 112* -- 113* 111* -- CO2 25 -- 24 22 -- BUN 46* -- 45* 50* -- CREAT 1.07 -- 1.06 1.13 -- GLUC 129* -- 157* 165* -- IC -- 1.16 -- -- -- CA 8.0* -- 8.0* 8.0* -- MG 2.1 -- 1.9 2.0 -- P 3.4 -- 2.8 2.7 -- Villa Thomas MD PGY-1, General Surgery Acute Care Surgery: [id number] After 6pm and on weekends and holidays, please page General Surgery on-call [phone] XR CHEST 1V FRONTAL Observed: 04/26/2018 Status: F Source: [facility] 3:37 AM [facility] REPOSITORY * * *Final Report* * * DATE OF EXAM: Apr 26 2018 3:37AM [facility] [id number] - XR CHEST 1V FRONTAL PORT / PROCEDURE REASON: Acute respiratory illness * * * * Physician Interpretation * * * * EXAMINATION: CHEST RADIOGRAPH (PORTABLE SINGLE VIEW AP) Exam Date/Time: 04/26/2018 3:37 AM Clinical History: Acute respiratory illness, MQ: [id number] Comparison: 1 day prior RESULT: See impression. IMPRESSION: Lines, tubes, and devices: Stable position of right IJ central venous catheter and right thoracostomy tube. Lungs and pleura: Small to medium-sized right pleural effusion present, partially loculated. Mixed alveolar and interstitial opacities within the lungs bilaterally, right side greater than left, are without significant change and most likely reflect a combination of pulmonary edema and atelectasis; component of infection/aspiration not excluded in appropriate clinical setting. No large pneumothorax. Cardiomediastinal silhouette: Stable cardiomediastinal silhouette. Steel Turner: NIDHI Transcribe Date/Time: Apr 26 2018 7:25A Dictated by : NEETU MORALES MD This examination was interpreted and the report reviewed and electronically signed by: NEETU MORALES MD on Apr 26 2018 7:26AM EST [id number] BASIC METABOLIC PANL Collected: 04/26/2018 Status: F Source: [place] 1:48 AM [facility] REPOSITORY TYPE CODE TESTS RESULT OUT OF REFERENCE UNITS RANGE LAB GLU 74-99 mg/dL High Glucose 129 Result Comment: The [place] [employer] (ADA) provides guidance for cutoff values for fasting glucose and random glucose. The ADA defines fasting as no caloric intake for at least 8 hours. Fas ting plasma glucose results between 100 to 125 mg/dL indicate increased risk for diabetes (prediabetes). Fasting plasma glucose results greater than or equal to 126 mg/dL meet the criteria for diagnosis of diabetes. In the absence of unequivocal hyperglycemia, results should be confirmed by repeat testing. In a patient with classic symptoms of hyperglycemia or hyperglycemic crisis, random plasma glucose results greater than or equal to 200 mg/dL meet the criteria for diagnosis of diabetes. Reference: Standards of Medical Care in Diabetes 2016, [place] [employer]. Diabetes Care. 2016.39(Suppl 1). LAB BUN 9-24 mg/dL BUN High 46 LAB CRET 0.73-1.22 mg/dL Creatinine 1.07 LAB NA 136-144 mmol/L Sodium High 148 LAB K 3.7-5.1 mmol/L Potassium 4.0 LAB CL 97-105 mmol/L Chloride High 112 LAB CO2 22-30 mmol/L CO2 25 LAB AGAP 9-18 mmol/L Anion Gap 11 LAB CA 8.5-10.2 mg/dL Low Calcium, Total 8.0 LAB GFRAA eGFR- Amer. >60 LAB GFRNAA . eGFR-All Other Races >60 Result Comment: eGFR (Estimated GFR) Units of measure: mL/min/1.73 meters squared eGFR is derived from the reexpressed MDRD Study equation using the following parameters: serum creatinine, age, gender and race. The creatinine assay has been calibrated to be traceable to IDMS. An eGFR <60 mL/min/1.73m2 for >3 months is consistent with chronic kidney disease. Refer to KDOQI guidelines for clinical interpretation. In patients with unstable renal function, e.g. those with acute kidney injury, the eGFR may not accurately reflect actual GFR. Performed By: #### BMP, MG1, PHOS, CBCDIF, VANCRA #### [facility] [address] [place] [address] MAGNESIUM Collected: 04/26/2018 Status: F Source: [place] 1:48 AM [facility] REPOSITORY TYPE CODE TESTS RESULT OUT OF REFERENCE UNITS RANGE LAB MG 1.7-2.3 mg/dL Magnesium 2.1 Performed By: #### BMP, MG1, PHOS, CBCDIF, VANCRA #### [facility] [address] [place] [id number] PHOSPHORUS Collected: 04/26/2018 Status: F Source: [place] 1:48 AM [facility] REPOSITORY TYPE CODE TESTS RESULT OUT OF REFERENCE UNITS RANGE LAB PHOS 2.7-4.8 mg/dL Phosphorus 3.4 Performed By: #### MICHAEL, MG1, PHOS, CBCDIF, BRAYAN #### [facility] [facility] [address] [place], [place] [address] CBC AND DIFFERENTIAL Collected: 04/26/2018 Status: F Source: [place] 1:48 AM [facility] REPOSITORY TYPE CODE TESTS RESULT OUT OF REFERENCE UNITS RANGE LAB WBC 3.70-11.00 k/uL WBC 7.02 LAB RBC 4.20-6.00 m/uL Low RBC 2.41 LAB HGB 13.0-17.0 g/dL Low Hemoglobin 6.9 LAB HCT 39.0-51.0 % Low Hematocrit 22.2 LAB MCV 80.0-100.0 fL MCV 92.1 LAB MCH 26.0-34.0 pG MCH 28.6 LAB MCHC 30.5-36.0 g/dL MCHC 31.1 LAB RDWCV 11.5-15.0 % RDW-CV High 16.7 LAB PLTCT 150-400 k/uL Low Platelet Count 131 LAB MPV 9.0-12.7 fL MPV 11.1 LAB ANEUT % Neut% 70.0 LAB AANEUT 1.45-7.50 k/uL Abs Neut 4.91 LAB ALYMP % Lymph% 18.1 LAB AALYMP 1.00-4.00 k/uL Abs Lymph 1.27 LAB AMONO % Hendry% 8.5 LAB AAMONO <0.87 k/uL Abs Hendry 0.60 LAB AEOS % Eosin% 3.1 LAB AAEOS <0.46 k/uL Abs Eosin 0.22 LAB ABASO % Baso% 0.3 LAB AABASO <0.11 k/uL Abs Baso <0.03 LAB AUNRBC 0 /100 WBC NRBCs 0.0 LAB ABNRBC <0.01 k/uL Absolute nRBC <0.01 LAB DTYP DTYPE Auto Diff Performed By: #### MICHAEL, MG1, PHOS, CBCDIF, VANCRA #### [facility] [address] [place], [place] [address] VANCOMYCIN Collected: 04/26/2018 Status: F Source: [place] 1:48 AM [facility] REPOSITORY TYPE CODE TESTS RESULT OUT OF REFERENCE UNITS RANGE LAB VANCRA 5.0-20.0 ug/mL Vancomycin 14.4 Result Comment: Reference ranges and high/low indicator flags are provided as general guidelines only. The treating physician must determine appropriate target levels/dosing based on the specific clinical situation. Performed By: #### BMP, MG1, PHOS, CBCDIF, VANCRA #### [facility] [address] [place], [place] [address] TYPE AND SCREEN Collected: 04/26/2018 Status: F Source: [place] 1:48 AM [facility] REPOSITORY TYPE CODE TESTS RESULT OUT OF REFERENCE UNITS RANGE LAB %ABR B ABO/RH(D) POSITIVE LAB % Antibody POS Screen Performed By: #### TSCR #### [facility] [address] [place], [place] [address] NURSING PROG Observed: 04/25/2018 Status: COMPLETED Source: [place] 6:50 PM [facility] REPOSITORY HNO ID: [id number] Author: Katharine Perez RN Service: Nursing Author Type: Registered Nurse Type: Nursing Progress Note Filed: 04/25/2018 7:19 PM Note Text: Nursing Progress Note Patient Name: Lazaro Villafana Patient Location: [place] [address] Daily Note: 1850: pt got out of bed without bedside nurse, pt urinated and had a bowel movement on the floor. Pt has been instructed multiple times to not get out of bed without bedside nurse and/ physical therapy. This note was completed by: Katharine Perez RN CONSULT PROG Observed: 04/25/2018 Status: COMPLETED Source: [place] 6:26 PM [facility] REPOSITORY HNO ID: [id number] Author: Alec Cheung (Fel) Service: Gastroenterology Author Type: Fellow Type: Consult Progress Note Filed: 04/26/2018 7:16 AM Note Text: Department of Gastroenterology AND Hepatology Initial Consult Note Date of Service: April 25, 2018 Patient: Lazaro Villafana Medical Record: [id number] Reason for Admission / Consultation: Opinion/Advice regarding partial thickness esophageal tear Gastroenterology Attending: Marques Odom MD Impression: Lazaro Villafana is a 52 year old gentleman with history notable for presumed EtOH related cirrhosis with risk factors for BOONE with disease course c/b portal HTN (EV) who presented with complaints of several day history of nausea, vomiting, melena, and hematemesis prompting tony tube placement at that time (unsure if gastric vs. Gastric and esophageal balloon inflated) found to have partial thickness esophageal tear and large EV. GI re-consulted for repeat endoscopy and corpak placement Plan: --- EGD for evaluation of esophageal tear today and post-pyloric Corpak placement/banding of large varices if tear has healed for safe passage of endosocpe --- NPO since 04/17 ---Type and screen with confirmation and transfuse as needed (keep PLT >50,000, INR<1.5, Hgb>7) in anticipation of procedure today Alec Cheung MD Gastroenterology AND Hepatology Fellow Discussed with staff. History of Present Illness: Lazaro Villafana is a 52 year old gentleman with history notable for presumed EtOH related cirrhosis with risk factors for BOONE with disease course c/b portal HTN (EV) who presented with complaints of several day history of nausea, vomiting, melena, and hematemesis prompting tony tube placement at that time (unsure if gastric vs. Gastric and esophageal balloon inflated) subsequently transferred to [facility] where he underwent EGD revealing Grade II non bleeding EV and a long 7 cm laceration (31-38 cm from the incisors) with GE junction documented to be at 45 cm. ? Mr. Villafana has an additional history significant for - Non insulin dependent Diabetes Mellitus - Hypertension - Chronic Kidney Disease - Chronic obstructive pulmonary disease - EtOH abuse disorder ? EGD (04/14/18): 4:20 PM - GE junction at 45 cm - Grade II Esophageal varices, 2 columns not actively bleeding - Laceration with adherent clot from 31 - 38 cm from incisors. ? Transferred to [facility] and re-scoped 04/15/18: EGD (04/15/18): - Deep mucosal tear 31-38 cm from incisors - Large varices in lower third of esophagus - Hematin in stomach - Scope not advanced to duodenum to avoid additional pressure on esophagus His hospital course c/b mediastinitis with fevers an purulent chest tube output on vancomycin/aztreonam/diflucan, respiratory failure requiring intubation now extubated (04/22) and stable from pulmonary standpoint, and on TPN. GI consulted for repeat look of esophagus and potential corpak placement/banding. Patient hemodynamically stable at this time on 2 L NC. Hgb 6.9 this AM but PRBC ordered. INR 1.5. Pertinent Review of Systems: Negative except as mentioned above Past Medical History: PAST MEDICAL HISTORY Diagnosis Date - Cirrhosis (HCC) - COPD (chronic obstructive pulmonary disease) (HCC) - Diabetes (HCC) - ETOH abuse - Hypertension Past Surgical History: No past surgical history on file. Family History: No family history on file. Social History: Social History Marital status: Spouse name: Years of education: Number of children: Social History Main Topics Smoking status: Current Every Day Smoker Packs/day: 0.00 Years: 0.00 Alcohol use: Yes Drug use: Yes Allergies: ALLERGIES Allergen Reactions - Ciprofloxacin Unknown - Penicillin Unknown Tolerating cefepime Medications: Prior to Admission Medications: amLODIPine (NORVASC) 10 mg tablet Take 10 mg by mouth once daily. metFORMIN (GLUCOPHAGE) 500 mg tablet Take 500 mg by mouth twice daily. losartan (COZAAR) 50 mg tablet Take 50 mg by mouth once daily. lactulose (DUPHALAC, CONSTULOSE) 10 gram/15 mL solution glyBURIDE (DIABETA) 5 mg tablet Take 5 mg by mouth twice daily. hydrOXYzine pamoate (VISTARIL) 50 mg capsule Take 50 mg by mouth twice daily as needed. NORepinephrine (LEVOPHED) 16 mg in D5W 250 mL Inject 0.6-30 mcg/min intravenously continuous. metroNIDAZOLE (FLAGYL) 500 mg/100 mL Inject 100 mL intravenously every 8 hours. aztreonam (AZACTAM) 1 g in D5W 100 mL Inject 100 mL intravenously every 8 hours. propofol infusion (DIPRIVAN) 10 mg/mL injection Inject 0.485- 5.82 mg/min intravenously continuous. pantoprazole (PROTONIX) 40 mg injection Inject 10 mL intravenously twice daily. octreotide 500 mcg in D5W 100 mL Inject 50 mcg/hr intravenously continuous. Current hospital medications: Parenteral Nutrition - Adult INTRAVENOUS ONCE TPN (2199 START) OLANZapine orally disintegrating 10 mg tab(s) (ZyPREXA ZYDIS) 10 mg ORAL AT BEDTIME metoprolol 5 mg injection (LOPRESSOR) 5 mg INTRAVENOUS q 6 HR acetaminophen 1,000 mg iv piggyback (OFIRMEV) 1,000 mg INTRAVENOUS q 8 H diatrizoate meglumine AND sodium 100 mL oral/rectal solution (GASTROGRAFIN) 100 mL ORAL ONCE Parenteral Nutrition - Adult INTRAVENOUS ONCE TPN (2199 START) lidocaine 5 % 1 Patch (LIDODERM) 1 Patch TRANSDERMAL DAILY lidocaine patch - REMOVE OTHER AT BEDTIME lidocaine - VERIFY PATCH OTHER q 8 H labetalol 10 mg injection syringe (NORMODYNE) 10 mg INTRAVENOUS q 2 H PRN insulin glargine 20 Units pen (long acting) (LANTUS SOLOSTAR, BASAGLAR KWIKPEN) 20 Units SUBCUTANEOUS AT BEDTIME vancomycin iv piggyback 1 g in D5W 200 mL (VANCOCIN) 1 g INTRAVENOUS q 12 HR aztreonam 2 g in D5W 100 mL MB+ (AZACTAM) 2 g INTRAVENOUS q 6 HR heparin 5,000 Units injection 5,000 Units SUBCUTANEOUS q 12 H fluconazole 400 mg in NaCl (iso-osmotic) 200 mL (DIFLUCAN) 400 mg INTRAVENOUS DAILY vancomycin dosing and monitoring per pharmacy OTHER As Directed insulin regular human injection (short acting) (NovoLIN R,HumuLIN R) SUBCUTANEOUS q 6 H potassium chloride iv piggyback 20 mEq/100 mL 20 mEq INTRAVENOUS PRN potassium chloride 20-80 mEq CUP 20-80 mEq ORAL/FEEDING TUBE PRN magnesium sulfate in water 2 g in sterile water 50 ml 2 g INTRAVENOUS PRN sodium glycerophosphate 15 mmol in D5W 250 mL (GLYCOPHOS) 15 mmol INTRAVENOUS PRN sodium glycerophosphate 30 mmol in D5W 250 mL (GLYCOPHOS) 30 mmol INTRAVENOUS PRN sodium glycerophosphate 45 mmol in D5W 250 mL (GLYCOPHOS) 45 mmol INTRAVENOUS PRN dextrose 40 % 15 g 15 g ORAL PRN glucagon 1 mg injection (GLUCAGEN) 1 mg INTRAMUSCULAR PRN dextrose 50 % 12.5 g injection 12.5 g INTRAVENOUS PRN lactated ringers infusion 5-30 mL/hr INTRAVENOUS CONTINUOUS NaCl 0.9% 3-5 mL 3-5 mL INTRAVENOUS q 12 H fentaNYL 50 mcg/mL 25-50 mcg injection (SUBLIMAZE) 25-50 mcg INTRAVENOUS q 1 H PRN metroNIDAZOLE 500 mg PREMIX piggyback (FLAGYL) 500 mg INTRAVENOUS q 8 H ipratropium-albuterol 3 mL nebulizer solution (DUONEB) 3 mL INHALATION q 4 H PRN pantoprazole 40 mg injection (PROTONIX) 40 mg INTRAVENOUS BID AC (06/1599) Physical Exam: Vital Signs 04/25/18 1330 04/25/18 1400 04/25/18 1500 04/25/18 1600 BP: 159/88 135/67 133/67 Pulse: 96 97 91 101 Resp: 15 30 24 28 Temp: 37.1 ?C (98.8 ?F) TempSrc: Oral SpO2: 96% 95% 91% 88% Weight: Height: Intake/Output Summary (Last 24 hours) at 04/25/18 1826 Last data filed at 04/25/18 1500 Gross per 24 hour Intake 1284 ml Output 2416 ml Net -1132 ml VITAL SIGNS: BP 133/67 Pulse 101 Temp (Src) 98.8 (Oral) Resp 28 Ht 5' 10 (1.78m) Wt 233 lb 4 oz (105.8kg) SpO2 88% BMI 33.47 kg/(m2). General appearance: well appearing, alert, in no acute distress Skin: no rashes or lesions Lungs: lungs clear to auscultation, no wheezing or rhonchi Heart: RRR without murmur Abdomen: Abdomen soft, non-tender. Bowel sounds normal. Extremities: Extremities normal. Musculoskeletal: Muscular strength grossly intact Neuro: CN2-12 grossly intact Labs: CBC, Coags, BMP, Mg, Phos Recent Labs 04/26/18 0148 04/25/18 1043 04/25/18 0215 04/24/18 0441 04/23/18 1215 WBC 7.02 -- 8.65 8.99 8.05 HB 6.9* -- 7.4* 7.3* 7.3* HCT 22.2* -- 23.5* 23.1* 23.1* PLT 131* -- 131* 118* 108* INR -- -- 1.5* -- 1.5* APTT -- -- -- -- 35.4* NA 148* -- 147* 145* -- K 4.0 -- 4.4 4.5 -- CHLOR 112* -- 113* 111* -- CO2 25 -- 24 22 -- BUN 46* -- 45* 50* -- CREAT 1.07 -- 1.06 1.13 -- GLUC 129* -- 157* 165* -- IC -- 1.16 -- -- -- CA 8.0* -- 8.0* 8.0* -- MG 2.1 -- 1.9 2.0 -- P 3.4 -- 2.8 2.7 -- Liver Function, Amylase, AND Lipase Recent Labs 04/25/18 1043 LACT 1.1 ABGs Recent Labs 04/25/18 1043 PH 7.47* PCO2 34 PO2 78* BE 2 HCO3 25 CO2CT 26 O2HB 94* COHB 1.7 MHGB 0.5 TEMP 37.0 PHTC 7.47* PCO2T 34 PO2T 78 SIGNATURE: Alec Cheung MD PATIENT NAME: Lazaro Villafana DATE: April 25, 2018 TIME: 6:26 PM PAGER/CONTACT #: [phone] THERAPY NT Observed: 04/25/2018 Status: COMPLETED Source: [place] 12:57 PM [facility] REPOSITORY HNO ID: [id number] Author: Ekaterina (Pt) Sagrario Service: Physical Therapy Author Type: Physical Therapist Type: Therapy (PT/OT/Speech/Resp) Filed: 04/25/2018 1:06 PM Note Text: Physical Therapy Evaluation SERVICE DATE: 04/25/2018 SERVICE TIME: 1145 to 1230 ROOM: [place] [address] Recommended Discharge Disposition: Unable to determine due to critical care status PT Recommendations to Nursing: Passive lift to/from chair;Utilize bed in chair position PT 6 Clicks Score: 9 Precautions/Activity Restrictions: Lines/Tubes/Drains;Fall Risk Precaution/Activity Restriction Comments: R chest tube to suction ASSESSMENT : Patient presents with impaired strength, impaired balance, decreased safety awareness, impaired cognition (mini-cog 2/5), and overall decline in functional mobility d/t critical illness s/p admission for hematemesis. Therapist providedskilled intervention today for monitoring of vital signs to assess fluctuations with activity due to this being the first trial OOB in SICU. Pt had varied SPO2 when pt taking off nasal cannula and demonstrated HTN with effort that required meds to be given by the RN. Therapist also provided skilled activity dosing and prescription of safe activity intensity in the critical care setting. Pt required cues for safety considerations throughout PT. Was able to stand with 2 assist but not able to wt shift to step d/t strength impairments. The patient will benefit from skilled PT for functional training focusing on the patient's current impairments, and skilled PT to progress and dose activities within safe limits. Will set DC plan with progress and once critical illness resolves to ensure accuracy of DC plan. Patient Disposition at Start of Session: Supine in Bed;Bed Alarm;SCDs Patient Disposition at End of Session: Supine in Bed;SCDs;Call Raphael in Reach;Bed Alarm Tolerance Limited By Fatigue Physical Therapy Problem List: Education Deficit;Pain;Safety Deficits;Decreased Activity Tolerance;Decreased Strength;Functional Mobility Impairment;Balance Impaired Patient /Caregiver Goals: Go Home Goals for Plan of Care: Able to perform HEP with: Independent Rolling with: Stand By Assistance Transfer supine to/from sit with: Stand By Assistance Transfer sit to/from stand with: Stand By Assistance Ambulate with: Stand By Assistance Distance: 100ft Device: Wheeled Walker Ambulate up and down steps with: Contact Guard Assistance Number of steps: 3 Device: Rail Transfer: Transfer bed to chair SBA with walker Rehab Potential: Good PLAN: Treatment Frequency (times per week): 5 Current admission Treatment Interventions: Education;Strengthening;Functional Mobility Training;Balance Training Plan of Care developed with: Patient TREATMENT INTERVENTIONS: Therapy Diagnosis: Reduced mobility-other Interventions Provided: Evaluation;Therapeutic Activity (96268) $ Evaluation-Moderate (24307) Billed Units: 1 unit Therapeutic Activity (83263) Treatment Minutes: 30 2 units Skilled Intervention(s): -Education to patient : PT plan/role/freq, DC planning, OOB with assist -Instruction to nursing regarding: mobility recs -Supine rolling: Assist and mod verbal and tactile cues for reaching UE to rail; tactile and verbal cues for LE flexion; tactile cues to initiate turn -Supine to/from sit: Mod verbal cues for LE management. Mod verbal cues for logroll sequence. Assist using TAP to wt shift trunk. -EOB static sitting. Tactile cues to trunk to cue upright posture d/t fwd leaning. Repeated verbal and visual cues for pursed lip breathing for SPO2 management and pain/BP control -Sit to/from stand 1x with B UE support to wt shift trunk, cues to knees for ext/flex -Static standing for 20 sec: B knee blocking for ext. B UE support to maintain upright trunk and for steadying -Skilled intervention for ICU line/room setup for safe mobility environment -Skilled intervention for vital sign monitoring to assess hemodynamic and respiratory response to activity to prescribe safe intensity and duration of activity/exercise during above interventions -Skilled intervention and time for positioning in supine after session for safety, comfort, and pressure relief: call light, turned, HOB 30 Total Timed Code Treatment Minutes: 30 Total Treatment Time (minutes): 45 FUNCTIONAL G CODE: PT 6 Clicks Score: 9 (04/25/18 114) Mobility: Walking and Moving Around Current Status (G8978): CM (04/25/18 114) Mobility: Walking and Moving Around Goal Status (G8979): CL (04/25/18 114) Based on clinical assessment and the score on the 6 Clicks Functional Assessment Tool, the G code and corresponding severity modifiers are documented above. SUBJECTIVE: Current Hospital Course: 52 yo male admitted from OSH with hematemesis s/p EGD at OSH complicated by esophageal laceration that appears to be contained. General surgery not recommending surgical intervention. 04/25 currently with R-sided chest tube for hydropneumothorax. SICU resident advised okay for activity Reason for Physical Therapy Consult : Critical care therapy Relevant Past Medical History: CKD. DM. COPD. ETOH. Cirrhosis. HTN. 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 Entry To Home: Stairs Number Of Stairs Into Home: 3 Number Of Stairs To Bed/Bath: 0 Equipment Owned: Cane;Wheeled Walker Prior Functional Level: Within Functional Limits OBJECTIVE: Mini Cog Score: 2 (04/25/18 114) Divided attention CURRENT FUNCTIONAL STATUS: Current Functional Mobility Assist Level Additional Information Rolling Moderate Assistance Supine to Sit Maximal Assistance 2 assist with all mobility Sit to Supine Maximal Assistance Scooting Maximal Assistance Sit to Stand Moderate Assistance Stand to Sit Moderate Assistance Bed to Chair Unable to wt shift when trialed Toilet/Commode Gait Stairs Curb Step Car Transfer Pt removing nc. SPO2 decreased to 93%. With encouragement pt reapplied. SBPs increased to the 170s before supine to sit with attempts to ready the bed. RN notified. BP meds given. SBPs in the 150s-160s when mobilizing. -HLM: 3: Sit at edge of bed Please see discipline specific clinical documentation flowsheet for complete details for this therapy evaluation/treatment. SIGNATURE: Ekaterina Zabala PT PATIENT NAME: Lazaro Villafana DATE: April 25, 2018 TIME: 12:57 PM NUTRITION Observed: 04/25/2018 Status: COMPLETED Source: [place] 12:32 PM [facility] REPOSITORY HNO ID: [id number] Author: Sari Weston Service: NST-Nutrition Support Team Author Type: Registered Dietitian Type: Nutrition Filed: 04/25/2018 12:45 PM Note Text: NUTRITION SUPPORT TEAM PROGRESS NOTE SERVICE DATE: 04/25/2018 SERVICE TIME: 937 RECOMMENDED DIAGNOSIS: MILD PROTEIN-CALORIE MALNUTRITION per Registered Dietitian on 04/17/2018 NUTRITION CARE PLAN Intervention: 1. ?Continue TPN and increase to minimum goal calories with incr volume ?- PN to provide 120gms 15% AA, 1120 dextrose calories, 1680ml at 70ml/hr ?- orders pended with incr MgSO4, incr KPhos, incr NaPhos, reduced na+ acetate, MVI, MTE, 85u insulin (1:4?ratio), 100mg thiamine ?- as able increase dextrose calories 2. ?Defer 250ml IVPB lipids 20% fat emulsion with propofol; propofol off 04/22; consider starting 04/27 ? Monitor and Evaluation: Goal: Meet >75% of estimated needs Monitor fluid/electrolyte balance Monitor labs, I/Os, vital signs, weight ? Discharge Nutrition Recommendations:? To be determined ? Per HPI: 52 year old male with a history of type II DM, poorly controlled HTN, CKD, COPD, tobacco smoker 2-3 PPD, alcohol use disorder with recent diagnosis of cirrhosis was transferred from [facility] with an esophageal perforation seen on EGD. Patient initially presented with hematemesis and melena with accompanying dizziness and shortness of breath. Transferred to [facility] on 04/14 for further management. s/p EGD 04/15?which showed a deep esophageal tear. ?Plan for a minimum of NPO x 2 weeks. ?04/16 Right chest tube placed for effusion. Interval History: extubated 04/22; NG removed 04/22 by pt. propofol off 04/22. EGD to be repeated. Pt is febrile with Tmax: 38.3 Resp: room air (extubated 04/22; propofol off 04/22) I/O's: Intake/Output Summary (Last 24 hours) at 04/25/18 1234 Last data filed at 04/25/18 1200 Gross per 24 hour Intake 3042 ml Output 2696 ml Net 346 ml overall +41664.6 Abdomen: not assessed Last BM: ?04/25 - black Enteral access: ?n/a Parenteral access: ?right IJ TLC placed 04/14 Labs: hypernatremia, hyperchloremia, Mg suboptimal, PO4 suboptimal, lactate 1.1, ionized calcium 1.16 Blood Gases: pH 7.47, pCO2 34, HCO3 25 Blood sugars: 131, 113, 112 Cultures: blood cx x 2 no growth x 5 days Imaging: n/a Nutritional Intake: Intake History BI DATA ARCHITECT: Unable to determine Current intake: 04/17: ?Average 5 day intakes meeting <50% of estimated energy need.s started on PN 04/17 due to esophageal tear, plan for NPO x 2 weeks 04/18: currently goal kcals, PN 940 kcals, 110 g pro + propofol 765 kcals/day 04/20: ?TPN wirh orders 04/17 - 04/19 to provide 110gms protein and 940 claories + additional calories from propofol (04/19 provided 626 calories) 04/21 - 04/22: ?PN with orders 04/20 - 04/21 to provide 100gms protein and 1000 calories + additional calories from propofol 04/25: PN with orders 04/22 - 04/24 to provide 110gms protein and 1040 calories Current Diet Order DIET NPO Lines and Drains: Central Line Triple Lumen 04/14/18 2319 Non-tunneled Right Neck (Active) Peripheral 04/14/18 2344 Left Antecubital 18 Gauge (Active) Chest Tube 04/16/18 2100 Right 28 Fr (Active) Height: 177.8 cm (5' 10) Admission Weight: 106.1 kg (233 lb 14.5 oz) Current Weight: 105.8 kg (233 lb 4 oz) Body mass index is 33.47 kg/m?. Usual body weight ?Unable to determine? No weight history available. ? Estimated nutrition goals: [place] body weight: 75.4 kg Dosing weight: 106?kg (04/14; BMI 33.5kg/m2)?? Calorie needs 1604-4639?kilocalories determined by = 15-20?kcals/kg ?Dosing?weight? Protein needs: 90 - 121?grams determined by 1.2 -1.6g/kg ideal?weight?- due to CKD Temp (24hrs), Av.5 ?C (99.5 ?F), Min:37 ?C (98.6 ?F), Max:38.3 ?C (100.9 ?F) Recent Labs 04/25/18 0215 04/23/18 0206 GLUC 157* < > 235* BUN 45* < > 54* CREAT 1.06 < > 1.35* NA 147* < > 140 K 4.4 < > 4.2 CHLOR 113* < > 104 CO2 24 < > 25 ALB -- -- 2.3* P 2.8 < > 3.2 HB 7.4* < > 7.5* HCT 23.5* < > 23.3* WBC 8.65 < > 7.48 MG 1.9 < > 1.8 < > = values in this interval not displayed. Vitamin and Mineral Labs in the past year:No results for input(s): CHROMIUM, COPPER, MANGANESE, SELENIUM, VITAMINA, VITB1, VITB2, VITB6, B12, METHYLMAL, VITD25, VITAMINE, VITAK, ZINC, TIBC, FE, JOHANNY in the last 8784 hours. MNT Billing Type: Re-assess/15 min 2 units SIGNATURE: Sari Weston RD [facility] PATIENT NAME: Lazaro Villafana DATE: April 25, 2018 TIME: 12:32 PM PAGER: [phone] GASA + ALL Collected: 04/25/2018 Status: F Source: [facility] 10:43 AM [facility] RADIANCE USE ONLY REPOSITORY TYPE CODE TESTS RESULT OUT OF REFERENCE UNITS RANGE LAB PH 7.35-7.45 pH 7.47 High LAB PCO2 34-46 mm Hg pCO2 34 LAB PO2 85-95 mm Hg pO2 78 Low LAB BE mmol/L Base Excess 2 LAB HCO3 22-26 mmol/L Bicarbonate 25 LAB CO2CT 22.0-28.0 mmol/L CO2 Content 26 LAB O2HB 95-98 % 94 Low Oxyhemoglobin, Art. LAB COHB 0-5.0 % 1.7 Carboxyhemoglobin ,Art LAB MHGB 0.4-1.5 % 0.5 Methemoglobin LAB TEMP C 37.0 Temperature, Body LAB PHTC 7.35-7.45 pH, Temp 7.47 High Corrected LAB PCO2T 34-46 mm Hg pCO2, Temp 34 Correct LAB PO2T mm Hg pO2, Temp 78 Corrected LAB NAB 135-146 mmol/L 147 High Sodium,Whole Bld LAB KWB 3.5-5.0 mmol/L Potassium, 4.1 Whole Bld LAB HGBB 13.0-17.0 g/dL 7.4 Low Hemoglobin,Total, ACL LAB HCTB 39.0-51.0 % Hematocrit, 23 Low ACL LAB IC 1.08-1.30 mmol/L Calcium, 1.16 Ion, WB LAB GLB 60-105 mg/dL 124 High Glucose,Whole Bld LAB LACT 0.5-2.2 mmol/L Lactate 1.1 LAB ABGCOM Blood Gas O2 Comm, Art Administration Result Comment: 2 LPM LAB ACBDTE [id number] Notify Date, Art LAB ACBTME [id number] Notify Time, Art Performed By: #### ALLBG #### [facility] [address] [place], [place] [address] ALLIED HEALTH Observed: 04/25/2018 Status: COMPLETED Source: [place] 10:09 AM [facility] REPOSITORY HNO ID: [id number] Author: Tenisha Vasquez (Rn) BLAYNE Salazar Service: PICC Team Author Type: Registered Nurse Type: Allied Health Filed: 04/25/2018 10:15 AM Note Text: Lazaro Villafana is a 52 year old male patient. Consulted to insert DL PICC for PANCHITO including TPN.Pt febrile last night to 38.8 and currently febrile per EPIC. PICC contraindicated in febrile pt. Can insert MIDLINE, but not appropriate for TPN. paged ordering practitioner re: above. Thank you Tenisha Salazar RN PROGRESS Observed: 04/25/2018 Status: COMPLETED Source: [place] 9:17 AM [facility] REPOSITORY HNO ID: [id number] Author: Gloria Crawford MD Service: Critical Care Author Type: Resident Type: Progress Notes Filed: 04/25/2018 12:06 PM Note Text: Attestation signed by Rosa Maria Gan at 04/25/2018 2:54 PM I have seen and reviewed the patient today, including physical examination at bedside with the SICU Housestaff and verifying the findings (see resident's documentation of physical exam; relevant history); reviewing labs, Xrays; discussing with primary physician and consultants; and developing plan of care with the bedside nurse. This care required my full attention and direct personal management in prevention of imminent clinical deterioration. [LEVEL III] REASON FOR SICU ADMISSION AND PERTINENT RECENT HISTORY: 52 year old man with history of T2DM, HTN, COPD, CKD, alcohol/tobacco abuse, liver cirrhosis with esophageal varices who presented to [facility] after developing a partial thickness esophageal perforation. Initially required intubation, has now been extubated. CURRENTLY: Patient continues to be febrile intermittently. Had CT chest done on 04/24/18 - showed right sided hydropneumothorax, RLL consolidation. He continues to complain of pain at the R chest tube site, but is otherwise clinically improved. Maintain O2 sats > 92% on RA vs. 2L NC. He remains NPO given esophageal perforation and is receiving TPN. DAILY ASSESSMENTS: Restraints -Unnecessary Central Access -Necessary. Personal evaluation has established that ongoing need exists for TPN, IV antibiotics Sedation interruption -Not applicable Continued need for urinary catheter: D/C Urinary Catheter IMPRESSION AND PLAN: 52 year old man with unrepaired partial thickness esophageal perforation. Has ongoing mediastinitis with fevers and purulent chest tube output as well as hydropneumothorax on chest CT. Is receiving appropriate antibiotic therapy. Stable and clinically improved from a cardiac and pulmonary standpoint. No pressors, on minimal O2 requirement. Acute post-operative pain: ordered scheduled IV acetaminophen x3 doses. Continuing to receive IV fentanyl PRN, has lidocaine patches over chest tube site as well Hypertension: started IV metoprolol today Acute respiratory insufficiency, RLL lung consolidation, COPD: doing well on RA to 2L NC currently. Will encourage IS use, ambulation, out of bed Mediastinitis related to esophageal perforation: continues to have fevers. Continue aztreonam, fluconazole, flagyl, vancomycin. Thoracic surgery, general surgery, and GI following. Patient to have repeat EGD this week T2DM: SSI, target blood glucose < 200 Severe protein-calorie malnutrition: patient TPN-dependent, strict NPO. Prophy: Protonix, SQH Lines: patient's central line is 10 days old. Will plan on PICC line placement once fevers resolve. Discontinuing mcclain catheter today. SIGNATURE:Rosa Maria Gan MD DATE:April 25, 2018 TIME:2:42 PM SURGICAL INTENSIVE CARE UNIT PROGRESS NOTE SERVICE DATE: April 25, 2018 SERVICE TIME: 9:15 AM Subjective No overnight events. CT ouput in last 24 hrs - 40cc. Complaining of abdominal pain, having BM. Developed fever to 38.3 overnight. No leukocytosis and blood cultures with NGTD. Objective VITAL SIGNS Temp: 37 ?C (98.6 ?F) Pulse: 101 BP: 141/74 MAP Non Invasive (Mean Arterial Pressure): 101 Resp: 23 SpO2: 93 % Not applicable Current Facility-Administered Medications: Parenteral Nutrition - Adult INTRAVENOUS ONCE TPN (2200 START) lidocaine 5 % 1 Patch (LIDODERM) 1 Patch TRANSDERMAL DAILY And lidocaine patch - REMOVE OTHER AT BEDTIME And lidocaine - VERIFY PATCH OTHER q 8 H labetalol 10 mg injection syringe (NORMODYNE) 10 mg INTRAVENOUS q 2 H PRN insulin glargine 20 Units pen (long acting) (LANTUS SOLOSTAR, BASAGLAR KWIKPEN) 20 Units SUBCUTANEOUS AT BEDTIME vancomycin iv piggyback 1 g in D5W 200 mL (VANCOCIN) 1 g INTRAVENOUS q 12 HR aztreonam 2 g in D5W 100 mL MB+ (AZACTAM) 2 g INTRAVENOUS q 6 HR heparin 5,000 Units injection 5,000 Units SUBCUTANEOUS q 12 H fluconazole 400 mg in NaCl (iso-osmotic) 200 mL (DIFLUCAN) 400 mg INTRAVENOUS DAILY vancomycin dosing and monitoring per pharmacy OTHER As Directed insulin regular human injection (short acting) (NovoLIN R,HumuLIN R) SUBCUTANEOUS q 6 H potassium chloride iv piggyback 20 mEq/100 mL 20 mEq INTRAVENOUS PRN Or potassium chloride 20-80 mEq CUP 20-80 mEq ORAL/FEEDING TUBE PRN magnesium sulfate in water 2 g in sterile water 50 ml 2 g INTRAVENOUS PRN sodium glycerophosphate 15 mmol in D5W 250 mL (GLYCOPHOS) 15 mmol INTRAVENOUS PRN Or sodium glycerophosphate 30 mmol in D5W 250 mL (GLYCOPHOS) 30 mmol INTRAVENOUS PRN Or sodium glycerophosphate 45 mmol in D5W 250 mL (GLYCOPHOS) 45 mmol INTRAVENOUS PRN dextrose 40 % 15 g 15 g ORAL PRN Or glucagon 1 mg injection (GLUCAGEN) 1 mg INTRAMUSCULAR PRN Or dextrose 50 % 12.5 g injection 12.5 g INTRAVENOUS PRN acetaminophen 650 mg suppository (TYLENOL) 650 mg RECTAL q 4 H PRN lactated ringers infusion 5-30 mL/hr INTRAVENOUS CONTINUOUS NaCl 0.9% 3-5 mL 3-5 mL INTRAVENOUS q 12 H fentaNYL 50 mcg/mL 25-50 mcg injection (SUBLIMAZE) 25-50 mcg INTRAVENOUS q 1 H PRN metroNIDAZOLE 500 mg PREMIX piggyback (FLAGYL) 500 mg INTRAVENOUS q 8 H ipratropium-albuterol 3 mL nebulizer solution (DUONEB) 3 mL INHALATION q 4 H PRN pantoprazole 40 mg injection (PROTONIX) 40 mg INTRAVENOUS BID AC (0600/1600) Cardiovascular: Regular rhythm Abdomen: Soft and Nontender Extremities: Mild pedal edema Neuro: Sedated Intake/Output Summary (Last 24 hours) at 04/25/18 0917 Last data filed at 04/25/18 0700 Gross per 24 hour Intake 3042 ml Output 2541 ml Net 501 ml Current Weight: Weight: 105.8 kg (233 lb) Admission Weight: Weight: 106.1 kg (233 lb 14.5 oz) RESPIRATORY On RA Recent Labs 04/22/18 1439 04/22/18 1217 PH 7.42 7.38 PO2 150* 138* PCO2 34 38 BE NEG 2 NEG 2 HCO3 22 22 LACT 1.4 1.3 CXR Findings: 04/25/2018 IMPRESSION: Lines, tubes, and devices: ?Unchanged Lungs and pleura: ?Right pleural effusion and basilar atelectasis unchanged. ?Perihilar infiltrate unchanged from atelectasis or pneumonia Cardiomediastinal silhouette: ?Stable cardiomegaly CT Chest Findings: 04/24/2018. IMPRESSION: 1. Small to medium-sized right loculated hydropneumothorax with associated right pleural thickening and adjacent right lower lobe atelectasis/consolidation (most likely due to infection), without significant change. Right thoracostomy tube stable in position. 2. Scattered ground-glass opacities within the upper lobes, new within the right upper lobe and stable to slightly decreased in the left upper lobe. These are most likely infectious/inflammatory in origin. Additional small ground-glass and small consolidative opacities within the inferior left lower lobe with adjacent centrilobular nodular opacities are most likely infectious and, in this location, may be related to aspiration. 3. Interval resolution of the left pleural effusion with overall decreased atelectasis in the left lower lobe. 4. Thoracic lymphadenopathy, likely reactive. 5. Known esophageal perforation; small locules of gas extending from the level of the distal esophagus into the right pleural space (images 90-93) may correspond to the site of perforation. INFUSION(S): none Patient Lines Assessed: Lines, Drains, and Airways Line Arterial Line 04/14/180 Arterial Line Left Radial 10 days Central Line Triple Lumen 04/14/18 2319 Non-tunneled Right Neck 10 days Peripheral 04/14/18 2344 Left Antecubital 18 Gauge 10 days Drain Indwelling Urinary Catheter 04/14/182113 Admission to Hospital [facility] 10 days Chest Tube 04/16/18 2100 Right 28 Fr 8 days Diagnostic tests reviewed for today's visit: Most recent labs and imaging results. Assessment/Plan Neuro:? AANDOx3, extubated, complaining of HALL -- prn fentanyl for pain -- will do IV tylenol again today -- continue lidocaine patch ?CV:? Hx of HTN on losartan and amlodipine at home. -- HDS off pressors -- prn labetalol for HTN -- will add scheduled metoprolol 5mg q6h until able to restart home PO meds ? Pulm:? Hx of COPD. Stable respiratory fxn on RA. CT chest with loculated R pleural effusion. CXR today with R pleural effusion unchanged. -- duonebs prn -- monitor chest tube output; will follow up with thoracic regarding chest tube plans Renal:??(baseline Cr ~1.2 from 02/2018) -- stable kidney function, good UOP -- will d/c mcclain ? GI:? Likely partial thickness mid-distal esophageal perforation, not amenable to stenting. EtOH cirrhosis with portal HTN, grade [address] Chest 04/24: Known esophageal perforation; small locules of gas extending from the level of the distal esophagus into the right pleural space (images 90-93) may correspond to the site of perforation. -- NPO -- NGT removed by patient (04/22); no need to replace NGT per thoracic (do not place blindly) -- repeat EGD ordered ? Heme:? -- Hgb 7.4 (stable) -- Transfuse to keep Hgb >7 -- SQH ? Fluid/Electrolyte/Nutrition: -- NPO -- Replete lytes as needed -- TPN ? Endo:? Hx of IDDM, HgbA1c 8.2. -- Continue lantus 20 units qHS -- ISS3 -- Nutrition will adjust lantus in TF ? ID:?Esophageal tear and perforation. Aztreonam and flagyl at OSH. -- Intermittent low grade fevers -- MSSA PCR positive, MRSA PCR negative -- Started Vancomycin on 04/22 per ID recs to cover for GPC -- transitioned cefepime to aztreonam 04/22 -- also on fluconazole (started 04/22), flagyl (started 04/14) -- allergy consult for skin test - negative - tolerated cefepime -- ID following, appreciate recs ? PPX:? -- GI ppx - pantoprazole given GI bleed -- VTE ppx - 5000u BID Medication and Non-Pharmacologic VTE Prophylaxis/Anticoagulants Anticoagulant AND Antiplatelet Medications Start Dose Route Frequency Ordered Stop 04/21/18 0930 heparin 5,000 Units injection 5,000 Units SUBCUTANEOUS EVERY 12 HOURS 04/21/18 0901 -- 04/14/18 2100 pneumatic compression stockings ([place]) 04/14/18 2100 activity - mobilize patient ([place]) VTE Prophylaxis: VTE prophylaxis appropriate SIGNATURE: Gloria Crawford MD PATIENT NAME: Lazaro Villafana DATE: April 25, 2018 TIME: 9:15 AM PAGER/CONTACT #: [phone] CASE MANAGEM Observed: 04/25/2018 Status: COMPLETED Source: [place] 9:01 AM [facility] REPOSITORY HNO ID: [id number] Author: Rai Ferreira) BLAYNE Kramer Service: Care Management Author Type: Registered Nurse Type: Care Mgt Progress Note Filed: 04/25/2018 9:03 AM Note Text: CARE MANAGEMENT PROGRESS NOTE SERVICE DATE: 04/25/2018 SERVICE TIME: 9:01 AM LOS: 11 days Patient remains in SICU now extubated and stable on room air. Continues on TPN and with right chest tube. Per Surgery may need upsizing of chest tube vs TPA and also plan repeat EGD this week to reassess esophageal tear and place post pyloric Corpak. Laser Specialist to follow for discharge planning pending POC and medical stability. Needs Prior to Discharge: To Be Determined SIGNATURE: Rai Kramer RN PATIENT NAME: Lazaro Villafana DATE: April 25, 2018 TIME: 9:01 AM PAGER/CONTACT #: [phone] PROGRESS Observed: 04/25/2018 Status: COMPLETED Source: [place] 7:20 AM [facility] REPOSITORY HNO ID: [id number] Author: Villa Thomas Service: General Surgery Author Type: Resident Type: Progress Notes Filed: 04/25/2018 7:27 AM Note Text: GENERAL SURGERY PROGRESS NOTE ASSESSMENT AND PLAN 52 year old male with PMHx type II DM, poorly controlled HTN, CKD, COPD, tobacco smoker 2-3 PPD, alcohol use disorder with recent diagnosis of cirrhosis w/ esophageal varices who presents on transfer from OSH with hematemesis s/p EGD at OSH c/b esophageal laceration that appears to be contained; MELD > 20, currently with R-sided chest tube for hydropneumothorax, NPO and on TPN. - Continue strict NPO - No surgical intervention planned - Follow Thoracic Surgery recommendations - Need to discuss potential need for upsizing R chest tube versus TPA given minimal CT output and persistent loculated R hydropneumothorax on 04/24 CT Chest - Repeat EGD this week to reassess esophageal tear + post- pyloric Corpak placement - Pleural cultures from 04/23 thus far negative; will continue to follow - Continue supportive/SICU care - trend labs To be discussed with staff, *After 6pm and on weekends please page general surgery director of early childhood education [phone]* SUBJECTIVE/INTERVAL EVENTS VIPIN overnight Febrile to 38.8 CT output 15 cc/24hrs BMx2 Persistent pain at CT site OBJECTIVE BP 141/74 Pulse 101 Temp 37.7 ?C (99.8 ?F) Resp 23 Ht 177.8 cm (5' 10) Wt 105.8 kg (233 lb 4 oz) SpO2 93% BMI 33.47 kg/m? Intake/Output Summary (Last 24 hours) at 04/25/18 0659 Last data filed at 04/25/18 0600 Gross per 24 hour Intake 3042 ml Output 2661 ml Net 381 ml General: alert, oriented, conversational CV: RRR Pulm: moderately labored breathing on room air Neck: no subQ emphysema/crepitus appreciated Abdomen: soft, non-distended Extremities: warm and well perfused Labs/Imaging: CBC, BMP, MG, PHOS Recent Labs 04/25/18 0215 04/24/18 0441 04/23/18 1215 04/23/18 0206 04/22/18 0120 WBC 8.65 8.99 8.05 7.48 8.44 HB 7.4* 7.3* 7.3* 7.5* 7.4* HCT 23.5* 23.1* 23.1* 23.3* 23.0* PLT 131* 118* 108* 96* 88* NA 147* 145* -- 140 140 K 4.4 4.5 -- 4.2 4.3 CHLOR 113* 111* -- 104 105 CO2 24 22 -- 25 21* BUN 45* 50* -- 54* 58* CREAT 1.06 1.13 -- 1.35* 1.45* GLUC 157* 165* -- 235* 223* CA 8.0* 8.0* -- 7.6* 7.5* MG 1.9 2.0 -- 1.8 2.0 P 2.8 2.7 -- 3.2 2.8 Liver Function, Amylase, AND Lipase Recent Labs 04/23/18 0206 04/22/18 1439 04/22/18 1217 04/22/18 0855 04/22/18 0120 04/21/18 1252 04/21/18 0206 04/20/18 0134 TPROT 6.2* -- -- -- 5.8* -- 5.6* -- 5.1* ALB 2.3* -- -- -- 2.1* -- 2.2* -- 2.1* ALT 23 -- -- -- 18 -- 17 -- 14 AST 54* -- -- -- 51* -- 45* -- 37 ALKPHOS 74 -- -- -- 72 -- 65 -- 62 TBILI 0.7 -- -- -- 0.7 -- 0.8 -- 0.6 LACT -- 1.4 1.3 1.0 -- 1.2 -- < > -- < > = values in this interval not displayed. Coags Recent Labs 04/25/18 0215 04/23/18 1215 04/22/18 1048 04/18/18 0002 04/17/18 0019 04/16/18 0031 APTT -- 35.4* -- 31.7 32.1 31.6 INR 1.5* 1.5* 1.4* 1.3 1.3 1.4* Active Hospital Problems Diagnosis Date Noted - Coagulopathy (HCC) 04/22/2018 - Severe protein-calorie malnutrition (HCC) 04/22/2018 - Secondary thrombocytopenia 04/20/2018 - Acute post-operative pain 04/20/2018 - Acute respiratory insufficiency 04/20/2018 - Consolidation of right lower lobe of lung (HCC) 04/20/2018 - Secondary esophageal varices without bleeding (HCC) 04/20/2018 - Tobacco abuse 04/20/2018 - Acute blood loss anemia 04/20/2018 - Mediastinitis 04/20/2018 - Fever 04/20/2018 - Mild protein-calorie malnutrition (HCC) 04/17/2018 - Esophageal perforation 04/14/2018 - Alcoholic cirrhosis (HCC) 04/14/2018 - Hyperglycemia 04/14/2018 - COPD (chronic obstructive pulmonary disease) (HCC) 04/14/2018 Chronic Villa Thomas MD PGY-1, General Surgery Acute Care Surgery: [id number] CONSULT PROG Observed: 04/25/2018 Status: COMPLETED Source: [place] 6:[address] [facility] REPOSITORY HNO ID: [id number] Author: Leena Li Service: Infectious Disease Author Type: Physician Type: Consult Progress Note Filed: 04/25/2018 1:30 PM Note Text: INFECTIOUS DISEASES PROGRESS NOTE Patient Name: Lazaro Villafana Account #: Data Unavailable Admission Date: 04/14/2018 Date of Evaluation: 04/25/2018 Time of Evaluation: 10:20 AM INTERVAL HPI: No acute events overnight. Ongoing known mediastinitis confirmed on repeat CT chest 04/21/18, no surgical intervention planned at this time. Possible repeat EGD this week. Extubated 04/22/18. Pulled out NGT 04/22/18. On TPN for nutrition, project 2 weeks of NPO status until esophageal perforation may have healed. Afebrile for majority of the weekend on tylenol, but break-through fever to 100.9F overnight. Stable leukocytosis. Fluconazole increased to 400 mg IV daily 04/22/18. Cefepime switched for aztreonam 04/22/18. MEDICATIONS: Current hospital medications: Parenteral Nutrition - Adult INTRAVENOUS ONCE TPN (2200 START) lidocaine 5 % 1 Patch (LIDODERM) 1 Patch TRANSDERMAL DAILY lidocaine patch - REMOVE OTHER AT BEDTIME lidocaine - VERIFY PATCH OTHER q 8 H labetalol 10 mg injection syringe (NORMODYNE) 10 mg INTRAVENOUS q 2 H PRN insulin glargine 20 Units pen (long acting) (LANTUS SOLOSTAR, BASAGLAR KWIKPEN) 20 Units SUBCUTANEOUS AT BEDTIME vancomycin iv piggyback 1 g in D5W 200 mL (VANCOCIN) 1 g INTRAVENOUS q 12 HR aztreonam 2 g in D5W 100 mL MB+ (AZACTAM) 2 g INTRAVENOUS q 6 HR heparin 5,000 Units injection 5,000 Units SUBCUTANEOUS q 12 H fluconazole 400 mg in NaCl (iso-osmotic) 200 mL (DIFLUCAN) 400 mg INTRAVENOUS DAILY vancomycin dosing and monitoring per pharmacy OTHER As Directed insulin regular human injection (short acting) (NovoLIN R,HumuLIN R) SUBCUTANEOUS q 6 H potassium chloride iv piggyback 20 mEq/100 mL 20 mEq INTRAVENOUS PRN potassium chloride 20-80 mEq CUP 20-80 mEq ORAL/FEEDING TUBE PRN magnesium sulfate in water 2 g in sterile water 50 ml 2 g INTRAVENOUS PRN sodium glycerophosphate 15 mmol in D5W 250 mL (GLYCOPHOS) 15 mmol INTRAVENOUS PRN sodium glycerophosphate 30 mmol in D5W 250 mL (GLYCOPHOS) 30 mmol INTRAVENOUS PRN sodium glycerophosphate 45 mmol in D5W 250 mL (GLYCOPHOS) 45 mmol INTRAVENOUS PRN dextrose 40 % 15 g 15 g ORAL PRN glucagon 1 mg injection (GLUCAGEN) 1 mg INTRAMUSCULAR PRN dextrose 50 % 12.5 g injection 12.5 g INTRAVENOUS PRN acetaminophen 650 mg suppository (TYLENOL) 650 mg RECTAL q 4 H PRN lactated ringers infusion 5-30 mL/hr INTRAVENOUS CONTINUOUS NaCl 0.9% 3-5 mL 3-5 mL INTRAVENOUS q 12 H fentaNYL 50 mcg/mL 25-50 mcg injection (SUBLIMAZE) 25-50 mcg INTRAVENOUS q 1 H PRN metroNIDAZOLE 500 mg PREMIX piggyback (FLAGYL) 500 mg INTRAVENOUS q 8 H ipratropium-albuterol 3 mL nebulizer solution (DUONEB) 3 mL INHALATION q 4 H PRN pantoprazole 40 mg injection (PROTONIX) 40 mg INTRAVENOUS BID AC (0600/1600) PHYSICAL EXAM: BP 151/75 Pulse 104 Temp 37.7 ?C (99.8 ?F) Resp 24 Ht 177.8 cm (5' 10) Wt 108.7 kg (239 lb 10.2 oz) SpO2 96% BMI 34.38 kg/m? Lines: Nontunnelled triple lumen 04/14 in R neck ?GEN: Patient is much improved from last week, interactive, engaged SKIN: No lesions noted. EYES: PERRLA NECK: R nontunnelled triple lumen catheter with no overlying erythema, swelling or warmth. LUNGS: clear to auscultation, no wheezes, or crackles. HEART: ?Regular rate/rhythm, normal heart sounds, and no murmurs. ABDOMEN: Soft, epigastric tenderness, hypoactive BS EXTREMITIES: Edema of hands b/l, no LE edema. Labs: WBC 8.65, Hgb 7.4, Plt 131, Cr 1.06 -249 cc/24 hours Micro and radiology personally reviewed 04/14/18: Quantiferon gold testing negative for TB 04/14/18: Blood cultures 04/19 no growth 04/14/18: MSSA nasal swab positive 04/17/18: MSSA nasal swab positive 04/17/18: Blood cultures 2/2 no growth 04/20/18: Blood cultures 2/2 no growth 04/20/18: Tracheal aspirate cultures no organisms on gram stain and no growth on culture 04/22/18: Fungitell negative 04/23/18: Sputum cultures no growth so far 04/24/18: Staphylococcal nasal swab negative CT Chest 04/17/18: IMPRESSION: 1. ?NEW MULTIFOCAL CONSOLIDATIVE/GROUNDGLASS OPACITIES PREDOMINANTLY LEFT UPPER LOBE AND LINGULA, MAY REPRESENT MULTIFOCAL PNEUMONIA/ASPIRATION PNEUMONITIS, HEMORRHAGE OR ASYMMETRIC EDEMA. ?RADIOGRAPHIC FOLLOW-UP IS RECOMMENDED.. 2. ?BILATERAL LOWER LOBE AIRSPACE OPACITIES WITH VOLUME LOSS, RIGHT GREATER THAN LEFT, MOST LIKELY ATELECTASIS WITH POSSIBLE SUPERIMPOSED INFECTIOUS PROCESS. 3. ?LIMITED EVALUATION OF PREVIOUSLY SEEN MID ESOPHAGEAL CONTRAST EXTRAVASATION/TEAR. ?SMALL FOCI OF RIGHT-SIDED PNEUMOMEDIASTINUM, NOT SIGNIFICANTLY CHANGED. ?SMALL FOCI OF PNEUMOMEDIASTINUM HAVE DEVELOPED SUPERIORLY. ?THESE COULD BE FROM RECENT INTERVENTION. 4. SMALL BILATERAL PLEURAL COLLECTIONS HAVE SLIGHTLY INCREASED COMPARED TO PRIOR EXAM. ?THE AIR COMPONENTS OF THE RIGHT PLEURAL COLLECTION ARE NEW SINCE PREVIOUS EXAM, LIKELY RELATED TO ?INTERVAL PLACEMENT OF RIGHT APICAL CHEST TUBE. US upper extremities 04/20/18: IMPRESSION ? RIGHT SIDE - DEEP VEINS Technically limited study. Negative for acute deep vein thrombosis in vessels visualized. Unable to visualize the internal jugular vein due to IV lines and bandages. RIGHT SIDE - SUPERFICIAL VEINS Acute superficial thrombophlebitis in the cephalic vein antecubital fossa to wrist. Acute superficial thrombophlebitis in the basilic vein mid upper arm to wrist. Acute superficial thrombophlebitis in the median cubital vein at the antecubital fossa. ? LEFT SIDE - DEEP VEINS Spontaneous and respirophasic flow noted in the subclavian vein at proximal. CT Chest 04/21/18: IMPRESSION: 1. ?Unchanged right hydropneumothorax with right thoracostomy tube and associated right lower lobe atelectasis. ?Superimposed infection/aspiration cannot be excluded. 2. ?Groundglass opacities in the left upper lobe and lingula, likely infectious/inflammatory. ?Left apical consolidation has decreased since the prior exam. 3. ?Circumferential wall thickening of the esophagus. ?Known esophageal tear is not visualized on this examination. 4. ?Mediastinal lymphadenopathy, likely reactive. CT Chest 04/24/18: IMPRESSION: 1. Small to medium-sized right loculated hydropneumothorax with associated right pleural thickening and adjacent right lower lobe atelectasis/consolidation (most likely due to infection), without significant change. Right thoracostomy tube stable in position. 2. Scattered ground-glass opacities within the upper lobes, new within the right upper lobe and stable to slightly decreased in the left upper lobe. These are most likely infectious/inflammatory in origin. Additional small ground-glass and small consolidative opacities within the inferior left lower lobe with adjacent centrilobular nodular opacities are most likely infectious and, in this location, may be related to aspiration. 3. Interval resolution of the left pleural effusion with overall decreased atelectasis in the left lower lobe. 4. Thoracic lymphadenopathy, likely reactive. 5. Known esophageal perforation; small locules of gas extending from the level of the distal esophagus into the right pleural space (images 90-93) may correspond to the site of perforation. ? IMPRESSION / PLAN 52 yo M with a h/o cirrhosis, EtoH related, CKD, COPD and reported + PPD in the past. Currently no clinical or imaging evidence of active pulmonary TB. Presenting with hemorrhagic shock secondary to hematemesis/esophageal tear c/b pneumomediastinum; no surgical intervention planned at this time. Plan: - continue vancomycin (goal trough 15-25), aztreonam, metronidazole, fluconazole as ordered for now Discussed with attendingPerla PGY4 [facility] STAFF PHYSICIAN NOTE OF PERSONAL INVOLVEMENT IN CARE Events reviewed. Patient examined. Findings as outlined in the fellow's note above. Jang elements verified. ? Relevant lab data, microbiology and imaging data reviewed. Relevant images personally reviewed. ? Agree with assessment and plan as outlined in the fellow's note above. I was physically present for the critical portions of the service provided by the ID team. The management plan reflects my input. ? Marguerite Li MD Staff, Department of Infectious Disease Pager: [phone] CONSULT PROG Observed: 04/25/2018 Status: COMPLETED Source: [place] 5:52 AM [facility] REPOSITORY HNO ID: [id number] Author: Francois Gann Service: Thoracic Surgery Author Type: Resident Type: Consult Progress Note Filed: 04/25/2018 3:01 PM Note Text: [facility] THORACIC SURGERY CONSULT PROGRESS NOTE Lazaro Villafana [id number] PRIMARY SERVICE: HOSPITAL DAY: # 11 INTERVAL HISTORY No acute events overnight. PHYSICAL EXAM BP 157/84 Pulse 104 Temp 37.7 ?C (99.8 ?F) Resp 21 Ht 177.8 cm (5' 10) Wt 108.7 kg (239 lb 10.2 oz) SpO2 95% BMI 34.38 kg/m? Intake/Output Summary (Last 24 hours) at 04/25/18 0552 Last data filed at 04/25/18 0500 Gross per 24 hour Intake 1758 ml Output 2655 ml Net -897 ml Constitutional: No acute distress HEENT: EOM's intact Resp: Respiratory effort: normal, CT SS, no air leak, on suction Cardiovascular: Cardiac: Regular rate AND rhythm Integumentary: Warm Musculoskeletal: No deformities Neurological/Psychiatric: Alert Additional systems reviewed: No additional systems reviewed DATA Recent Labs 04/25/18 0215 04/24/18 0441 04/23/18 1215 WBC 8.65 8.99 8.05 HB 7.4* 7.3* 7.3* HCT 23.5* 23.1* 23.1* PLT 131* 118* 108* Recent Labs 04/25/18 0215 04/24/18 0441 04/23/18 0206 NA 147* 145* 140 K 4.4 4.5 4.2 CO2 24 22 25 BUN 45* 50* 54* CREAT 1.06 1.13 1.35* GLUC 157* 165* 235* MG 1.9 2.0 1.8 IMAGING I personally reviewed: CXR, 04/25 in process, will f/u ASSESSMENT AND PLAN 52 year old male with multiple medical comorbidities now with likely partial thickness esophageal perforation, putatively from S-B tube placement at OSH. It is unlikely that this is the etiology of his massive hemoptysis, reportedly there were multiple varices that, in the background of cirrhosis is the likely etiology of his bleed. While he is requiring high doses of vasopressors, it is unlikely that the source of his shock is purely from his esophageal perforation given his lack of pleural effusion or free flowing contrast. 04/15 EGD showed 5cm esophageal laceration without active bleeding. 04/16 Right chest tube placed for effusion. 04/22 extubated. 04/22 Patient pulled NGT. ? Plan - daily CXR - will pull back chest tube - esophagram today ? Francois Gann MD,PhD Pager [phone] 04/25/2018 5:52 AM XR CHEST 1V FRONTAL Observed: 04/25/2018 Status: F Source: [facility] 4:02 AM [facility] REPOSITORY * * *Final Report* * * DATE OF EXAM: Apr 25 2018 4:02AM [facility] 5376 - XR CHEST 1V FRONTAL PORT / PROCEDURE REASON: Acute respiratory illness * * * * Physician Interpretation * * * * EXAMINATION: CHEST RADIOGRAPH (PORTABLE SINGLE VIEW AP) Exam Date/Time: 04/25/2018 4:02 AM Clinical History: Acute respiratory illness, MQ: [id number] Comparison: 1 day prior RESULT: See impression. IMPRESSION: Lines, tubes, and devices: Unchanged Lungs and pleura: Right pleural effusion and basilar atelectasis unchanged. Perihilar infiltrate unchanged from atelectasis or pneumonia Cardiomediastinal silhouette: Stable cardiomegaly Other: . Steel Turner: NIDHI Transcribe Date/Time: Apr 25 2018 8:18A Dictated by : BEATRIZ PEDRAZA MD This examination was interpreted and the report reviewed and electronically signed by: BEATRIZ PEDRAZA MD on Apr 25 2018 8:19AM EST [id number] CBC AND DIFFERENTIAL Collected: 04/25/2018 Status: F Source: [place] 2:15 AM [facility] REPOSITORY TYPE CODE TESTS RESULT OUT OF REFERENCE UNITS RANGE LAB WBC 3.70-11.00 k/uL WBC 8.65 LAB RBC 4.20-6.00 m/uL Low RBC 2.60 LAB HGB 13.0-17.0 g/dL Low Hemoglobin 7.4 LAB HCT 39.0-51.0 % Low Hematocrit 23.5 LAB MCV 80.0-100.0 fL MCV 90.4 LAB MCH 26.0-34.0 pG MCH 28.5 LAB MCHC 30.5-36.0 g/dL MCHC 31.5 LAB RDWCV 11.5-15.0 % RDW-CV High 16.6 LAB PLTCT 150-400 k/uL Low Platelet Count 131 LAB MPV 9.0-12.7 fL MPV 10.7 LAB ANEUT % Neut% 76.8 LAB AANEUT 1.45-7.50 k/uL Abs Neut 6.64 LAB ALYMP % Lymph% 12.5 LAB AALYMP 1.00-4.00 k/uL Abs Lymph 1.08 LAB AMONO % Hendry% 8.1 LAB AAMONO <0.87 k/uL Abs Hendry 0.70 LAB AEOS % Eosin% 2.4 LAB AAEOS <0.46 k/uL Abs Eosin 0.21 LAB ABASO % Baso% 0.2 LAB AABASO <0.11 k/uL Abs Baso <0.03 LAB AUNRBC 0 /100 WBC NRBCs 0.0 LAB ABNRBC <0.01 k/uL Absolute nRBC <0.01 LAB DTYP DTYPE Auto Diff Performed By: #### CBCDIF, PT, BMP, MG1, PHOS #### [facility] [address] [place], [place] [address] PROTIME Collected: 04/25/2018 Status: F Source: [place] 2:[address] [facility] REPOSITORY TYPE CODE TESTS RESULT OUT OF RANGE REFERENCE UNITS LAB PSEC 9.7-13.0 sec High PT Sec 15.6 LAB INR 0.9-1.3 High PT INR 1.5 Result Comment: Vitamin K Antagonist (VKA) Therapeutic Range: INR 2 to 3 (Target INR of 2.5) Note: For patients treated with VKA drugs, such as warfarin, the [place] [employer] 2012 Guideline recommends a therapeutic INR range of 2 to 3 (target INR of 2.5). This recommendation includes high-risk patients with antiphospholipid syndrome with previous arterial or venous thromboembolism, current-generation mechanical or bioprosthetic aortic heart valve replacement. Note: Patients with mechanical aortic valve replacement and additional risk factors for thromboembolic events (atrial fibrillation, previous thromboembolism, LV dysfunction, hypercoagulable conditions) or an older generation mechanical AVR (i.e., ball in-Cage) or any mechanical MVR should have a INR therapeutic range of 2.5 to 3.5 (target INR of 3). Serjio GH, et al. Chest 2012, 141:7S-47S Rashida VAZQUEZ et al. [facility] 2017, 70: 252-289 Performed By: #### CBCDIF, PT, BMP, MG1, PHOS #### [facility] [address] [place] [id number] BASIC METABOLIC PANL Collected: 04/25/2018 Status: F Source: [place] 2:15 AM [facility] REPOSITORY TYPE CODE TESTS RESULT OUT OF REFERENCE UNITS RANGE LAB GLU 74-99 mg/dL High Glucose 157 Result Comment: The [place] [employer] (ADA) provides guidance for cutoff values for fasting glucose and random glucose. The ADA defines fasting as no caloric intake for at least 8 hours. Fas ting plasma glucose results between 100 to 125 mg/dL indicate increased risk for diabetes (prediabetes). Fasting plasma glucose results greater than or equal to 126 mg/dL meet the criteria for diagnosis of diabetes. In the absence of unequivocal hyperglycemia, results should be confirmed by repeat testing. In a patient with classic symptoms of hyperglycemia or hyperglycemic crisis, random plasma glucose results greater than or equal to 200 mg/dL meet the criteria for diagnosis of diabetes. Reference: Standards of Medical Care in Diabetes 2016, [place] [employer]. Diabetes Care. 2016.39(Suppl 1). LAB BUN 9-24 mg/dL BUN High 45 LAB CRET 0.73-1.22 mg/dL Creatinine 1.06 LAB NA 136-144 mmol/L Sodium High 147 LAB K 3.7-5.1 mmol/L Potassium 4.4 LAB CL 97-105 mmol/L Chloride High 113 LAB CO2 22-30 mmol/L CO2 24 LAB AGAP 9-18 mmol/L Anion Gap 10 LAB CA 8.5-10.2 mg/dL Low Calcium, Total 8.0 LAB GFRAA eGFR- Amer. >60 LAB GFRNAA . eGFR-All Other Races >60 Result Comment: eGFR (Estimated GFR) Units of measure: mL/min/1.73 meters squared eGFR is derived from the reexpressed MDRD Study equation using the following parameters: serum creatinine, age, gender and race. The creatinine assay has been calibrated to be traceable to IDMS. An eGFR <60 mL/min/1.73m2 for >3 months is consistent with chronic kidney disease. Refer to KDOQI guidelines for clinical interpretation. In patients with unstable renal function, e.g. those with acute kidney injury, the eGFR may not accurately reflect actual GFR. Performed By: #### CBCDIF, PT, BMP, MG1, PHOS #### [facility] [address] [place] [address] MAGNESIUM Collected: 04/25/2018 Status: F Source: [place] 2:15 AM [facility] REPOSITORY TYPE CODE TESTS RESULT OUT OF REFERENCE UNITS RANGE LAB MG 1.7-2.3 mg/dL Magnesium 1.9 Performed By: #### CBCDIF, PT, BMP, MG1, PHOS #### [facility] [address] [place] [address] PHOSPHORUS Collected: 04/25/2018 Status: F Source: [place] 2:15 AM [facility] REPOSITORY TYPE CODE TESTS RESULT OUT OF REFERENCE UNITS RANGE LAB PHOS 2.7-4.8 mg/dL Phosphorus 2.8 Performed By: #### CBCDIF, PT, BMP, MG1, PHOS #### [facility] [address] [place] [address] PROGRESS Observed: 04/24/2018 Status: COMPLETED Source: [place] 10:41 AM [facility] REPOSITORY HNO ID: [id number] Author: Rene Rajan Service: Anesthesiology Author Type: Anesthesiologist Type: Progress Notes Filed: 04/24/2018 8:32 PM Note Text: SURGICAL INTENSIVE CARE UNIT PROGRESS NOTE SERVICE DATE: April 24, 2018 SERVICE TIME: 10:42 AM Subjective Mr.?Howard Villafana is a 52-year-old male with PMHx type II DM, poorly controlled HTN, CKD, COPD, tobacco smoker 2-3 PPD, alcohol use disorder with recent diagnosis of cirrhosis was transferred from [facility] with an esophageal perforation seen on EGD. Patient initially presented with hematemesis and melena with accompanying dizziness and shortness of breath. Admitted to the SICU for surgical evaluation and hemodynamic monitoring. Overnight, complained of 10/10 pain but was laying comforrtably. This AM, patient complained of 10/10 frontal, sharp, constant, non- radiating HALL in addition to generalized body pains. Tylenol, fentanyl were given with relief this AM. Objective VITAL SIGNS Temp: 36.8 ?C (98.2 ?F) Pulse: 87 BP: 129/64 MAP Non Invasive (Mean Arterial Pressure): 90 Resp: 23 SpO2: 95 % Not applicable Current Facility-Administered Medications: labetalol 10 mg injection syringe (NORMODYNE) 10 mg INTRAVENOUS q 2 H PRN Parenteral Nutrition - Adult INTRAVENOUS ONCE TPN (0 START) insulin glargine 20 Units pen (long acting) (LANTUS SOLOSTAR, BASAGLAR KWIKPEN) 20 Units SUBCUTANEOUS AT BEDTIME vancomycin iv piggyback 1 g in D5W 200 mL (VANCOCIN) 1 g INTRAVENOUS q 12 HR aztreonam 2 g in D5W 100 mL MB+ (AZACTAM) 2 g INTRAVENOUS q 6 HR heparin 5,000 Units injection 5,000 Units SUBCUTANEOUS q 12 H fluconazole 400 mg in NaCl (iso-osmotic) 200 mL (DIFLUCAN) 400 mg INTRAVENOUS DAILY vancomycin dosing and monitoring per pharmacy OTHER As Directed insulin regular human injection (short acting) (NovoLIN R,HumuLIN R) SUBCUTANEOUS q 6 H potassium chloride iv piggyback 20 mEq/100 mL 20 mEq INTRAVENOUS PRN Or potassium chloride 20-80 mEq CUP 20-80 mEq ORAL/FEEDING TUBE PRN magnesium sulfate in water 2 g in sterile water 50 ml 2 g INTRAVENOUS PRN sodium glycerophosphate 15 mmol in D5W 250 mL (GLYCOPHOS) 15 mmol INTRAVENOUS PRN Or sodium glycerophosphate 30 mmol in D5W 250 mL (GLYCOPHOS) 30 mmol INTRAVENOUS PRN Or sodium glycerophosphate 45 mmol in D5W 250 mL (GLYCOPHOS) 45 mmol INTRAVENOUS PRN dextrose 40 % 15 g 15 g ORAL PRN Or glucagon 1 mg injection (GLUCAGEN) 1 mg INTRAMUSCULAR PRN Or dextrose 50 % 12.5 g injection 12.5 g INTRAVENOUS PRN acetaminophen 650 mg suppository (TYLENOL) 650 mg RECTAL q 4 H PRN lactated ringers infusion 5-30 mL/hr INTRAVENOUS CONTINUOUS NaCl 0.9% 3-5 mL 3-5 mL INTRAVENOUS q 12 H fentaNYL 50 mcg/mL 25-50 mcg injection (SUBLIMAZE) 25-50 mcg INTRAVENOUS q 1 H PRN Chlorhexidine Gluconate 0.12 % 15 mL (PERIDEX) 15 mL ORAL QID metroNIDAZOLE 500 mg PREMIX piggyback (FLAGYL) 500 mg INTRAVENOUS q 8 H ipratropium-albuterol 3 mL nebulizer solution (DUONEB) 3 mL INHALATION q 4 H PRN pantoprazole 40 mg injection (PROTONIX) 40 mg INTRAVENOUS BID AC (06/1599) Cardiovascular: Regular rhythm Abdomen: Soft and Nontender Extremities: Mild pedal edema Neuro: Sedated Intake/Output Summary (Last 24 hours) at 04/24/18 1041 Last data filed at 04/24/18 1000 Gross per 24 hour Intake 2084 ml Output 2506 ml Net -422 ml Current Weight: Weight: 108 kg (238 lb 1.6 oz) Admission Weight: Weight: 106.1 kg (233 lb 14.5 oz) RESPIRATORY On NC 2 L Recent Labs 04/22/18 1439 04/22/18 1217 PH 7.42 7.38 PO2 150* 138* PCO2 34 38 BE NEG 2 NEG 2 HCO3 22 22 LACT 1.4 1.3 CXR Findings: 04/24/2018 IMPRESSION: Lines, tubes, and devices: ?Stable position of right IJ central venous catheter and right thoracostomy tube. Lungs and pleura: ?Low lung volumes. Small to medium-sized right pleural effusion present, extending into the interlobar fissures with pseudotumor appearance. ?Mixed alveolar and interstitial opacities within the lungs bilaterally are without significant change and most likely reflect a combination of pulmonary edema and atelectasis; component of infection/aspiration not excluded in appropriate clinical setting. No large pneumothorax. Cardiomediastinal silhouette: ?Stable cardiomediastinal silhouette. CT Chest Findings: 04/24/2018. IMPRESSION: 1. Small to medium-sized right loculated hydropneumothorax with associated right pleural thickening and adjacent right lower lobe atelectasis/consolidation (most likely due to infection), without significant change. Right thoracostomy tube stable in position. 2. Scattered ground-glass opacities within the upper lobes, new within the right upper lobe and stable to slightly decreased in the left upper lobe. These are most likely infectious/inflammatory in origin. Additional small ground-glass and small consolidative opacities within the inferior left lower lobe with adjacent centrilobular nodular opacities are most likely infectious and, in this location, may be related to aspiration. 3. Interval resolution of the left pleural effusion with overall decreased atelectasis in the left lower lobe. 4. Thoracic lymphadenopathy, likely reactive. 5. Known esophageal perforation; small locules of gas extending from the level of the distal esophagus into the right pleural space (images 90-93) may correspond to the site of perforation. INFUSION(S): none Patient Lines Assessed: Lines, Drains, and Airways Line Arterial Line 04/14/18 2320 Arterial Line Left Radial 9 days Central Line Triple Lumen 04/14/18 2319 Non-tunneled Right Neck 9 days Peripheral 04/14/18 2344 Left Antecubital 18 Gauge 9 days Drain Indwelling Urinary Catheter 04/14/182113 Admission to Hospital [facility] 9 days Chest Tube 04/16/18 2100 Right 28 Fr 7 days Diagnostic tests reviewed for today's visit: Most recent labs and imaging results. Assessment/Plan Neuro:? AOx3, extubated, comfortable - prn tylenol, prn fentanyl for pain - added lidocaine patch for chest tube pain - will try IV tylenol and access pain afterwards ?CV:? -- HDS. -- Goal MAP >65 -- No vasopressors ? Pulm:? ?Hx of COPD. Stable respiratory fn on RA -- duonebs prn -- Monitor chest tube output - will send pleural fluid for Cx -- Continue RT treatments -- CXR 04/24: Low lung volumes. Small to medium-sized right pleural Effusion. ?Mixed alveolar and interstitial opacities within the lungs bilaterally are without significant change. NO PTX -- CT chest 04/24: Scattered ground-glass opacities within the upper lobes, new within the RUL and stable to slightly decreased in the CADEN. Additional small ground-glass and small consolidative opacities within the inferior left lower lobe with adjacent centrilobular nodular opacities -will order 2 doses of mucomyst due to thick secretions ? Renal:??(baseline Cr ~1.2 from 02/2018) -- stable kidney function, good UOP --Monitor Cr and I/Os --[facility] continue ? GI:? Likely partial thickness esophageal perforation. Presented from OSH on 04/14 with hematemesis, melena dizziness and SOB. EtOH cirrhosis with portal HTN, grade 2 esophageal varices -- mid distal esophageal tear -- not amenable to esophageal stenting --NPO - thoracic to re-eval for CLD early next week pending results of CT scan --NGT removed by patient (04/22) --no need to replace NGT per thoracic (do not place blindly) -- CT Chest 04/24: Known esophageal perforation; small locules of gas extending from the level of the distal esophagus into the right pleural space (images 90-93) may correspond to the site of perforation. -- will f/u with thoracic surgery ? Heme:? -- Hgb 7.3 (stable) -- thrombocytopenia. Will watch for signs of bleeding and need?for further transfusion --Transfuse to keep Hgb >7 - SQH ? Fluid/Electrolyte/Nutrition: --NPO --Replete lytes as one time dosing -- TPN ? Endo:? Hx of IDDM, HgbA1c 8.2. - BG goal 130-180; BG this AM 171 - continue lantus 20 units - Sliding scale insulin Scale 3 -- Nutrition will adjust lantus in TF ? ID:?Esohageal tear and perforation. aztreonam and flagyl at OSH -Intermittent low grade fevers - MSSA PCR positive - MRSA PCR negative - Started Vancomycin per ID recs to cover for GPC - transitioned cefepnie to aztreonam 04/22 - on aztreonam, fluconazole, flagyl, vanco - allergy consult for skin test - negative - tolerated cefepime - ID following, appreciate recs ? PPX:? - GI ppx - pantoprazole - VTE ppx - 5k u BID ? PLAN: - s/p NGT (pulled by patient). Cannot blindly place. Will re-evaluate early next week for sips/CLD - will f/u with thoracic regarding CT chest findings - added lidocaine patch for chest tube pain - will try IV tylenol and access pain afterwards - will order 2 doses of mucomyst due to thick secretions Medication and Non-Pharmacologic VTE Prophylaxis/Anticoagulants Anticoagulant AND Antiplatelet Medications Start Dose Route Frequency Ordered Stop 04/21/18 0930 heparin 5,000 Units injection 5,000 Units SUBCUTANEOUS EVERY 12 HOURS 04/21/18 0901 -- 04/14/18 2100 pneumatic compression stockings (nc,ut) 04/14/18 2100 activity - mobilize patient (nc,ut) VTE Prophylaxis: VTE prophylaxis appropriate SIGNATURE: Joanne Cabral MD PATIENT NAME: Lazaro Villafana DATE: April 24, 2018 TIME: 10:41 AM PAGER/CONTACT #: [id number] ICU STAFF -- DR. RAJAN REASON FOR ICU ADMISSION AND PERTINENT RECENT HISTORY This 52 year old male has required SICU support for esophageal perforation with sepsis on antibiotic therapy. I have examined the patient with the Housestaff (see above) and reviewed lab data and x-rays. I have evaluated the hemodynamic and respiratory data, ECG, prescribed IV fluids, assessed antibiotic therapy, prescribed nutritional and/or metabolic support.This care required my full attention and direct personal management in prevention of imminent clinical deterioration. SIGNATURE: George Rajan MD DATE: April 24, 2018 TIME: 8:[address] CHEST WO IVCON Observed: 04/24/2018 Status: F Source: [place] 9:02 AM [facility] REPOSITORY * * *Final Report* * * DATE OF EXAM: Apr 24 2018 9:02AM [facility] [place] 0541 - CT CHEST WO IVCON / PROCEDURE REASON: Shortness of breath * * * * Physician Interpretation * * * * EXAMINATION: CHEST CT WITHOUT CONTRAST CLINICAL HISTORY: Shortness of breath, Pleural effusion, Abscess of lung or mediastinum, 52-year-old male with past medical history of type 2 diabetes mellitus, hypertension, chronic renal insufficiency, COPD, alcohol use disorder with cirrhosis and esophageal varices. Patient was transferred from outside hospital with hematemesis and had and esophageal perforation following placement of a Sengstaken-Tony (SB) tube at an outside hospital. Follow-up following removal of NG tube and endotracheal tube. Technique: Spiral CT acquisition of the chest from the thoracic inlet to the upper abdomen without contrast. MQ: [id number] CT Dose-Length Product: 483 mGy*cm CT Dose Reduction Employed: Automated exposure control (AEC) Comparison: Prior chest CTs 04/21/2018, 04/16/2018, 04/15/2018; portable chest radiograph 04/24/2018. RESULT: Limitations: None. Lines, tubes, and devices: Right thoracostomy tube inserted via the lateral intercostal space between the sixth and seventh ribs has its tip along the medial right lung apex. Right IJ central venous catheter tip in SVC. Lung parenchyma and pleura: Trachea and central bronchi are patent, with adherent retained mucous/secretions seen within the distal trachea and left mainstem bronchus. The small to medium-sized right hydropneumothorax with partial loculation of the pleural fluid in the interlobar fissures and right-sided pleural thickening is without significant change from the 04/21/2018 CT, with multiple small gas locule seen within the right pleural space posteriorly. Adjacent right lower lobe atelectasis/consolidation is also without significant change. There are multiple new patchy groundglass and small consolidative opacities present within the right upper lobe, with similar appearing foci within the left upper lobe which are without stable to slightly decreased from the most recent prior and are most likely infectious/inflammatory in origin. Small consolidative opacities within the inferior left lower lobe (images 71, 135-145) with a few scattered adjacent centrilobular nodular opacities may be related to infection or possible aspiration as well. There is diffuse smooth bronchial wall/peribronchovascular interstitial thickening and scattered interlobular septal thickening, which may reflect trace superimposed interstitial edema. The trace left pleural effusion seen on the prior has resolved in the interim and there is decreased atelectasis within the left lower lobe. No left-sided pneumothorax Thoracic inlet, heart, and mediastinum: The thyroid is mostly excluded from view. No lymphadenopathy in the axillary regions. Scattered small lower cervical lymph nodes are without significant change as are the multiple subcentimeter in short axis and mildly enlarged mediastinal lymph nodes (for example at 12 mm right paratracheal lymph node at image 56). Right hilar lymphadenopathy noted (for example a 1.3 cm node at image 75), although evaluation is limited by lack of IV contrast. These intrathoracic lymph nodes are likely reactive. The esophagus is nondilated, with gas locules seen extending from the distal esophagus to the right pleural space at images 90-93 which may correspond to the site of perforation. No significant pneumomediastinum. There is a common origin of the brachiocephalic trunk and left common carotid artery, normal variant. The thoracic aorta and main pulmonary artery are normal in caliber. The cardiac chambers are normal in size. Cardiac blood pool is hypodense relative to the interventricular septum, suggesting anemia. Mild left circumflex coronary artery atherosclerotic calcifications are noted, although the study is not optimized for coronary assessment. No pericardial effusion or thickening. Bones and soft tissues: No destructive bone lesion. Minor degenerative changes present within the thoracic spine. Fat stranding within the thoracic and upper abdominal subcutaneous tissues consistent with mild body wall edema. . Upper abdomen: Cirrhotic liver morphology with ascites within the upper abdomen. Mild splenomegaly with the spleen measuring 16.5 cm in AP dimension. Soft tissue fat stranding within the mesentery consistent with mesenteric edema. Scattered small lymph nodes noted within the upper abdomen/retroperitoneum, without significant change, also likely reactive. IMPRESSION: 1. Small to medium-sized right loculated hydropneumothorax with associated right pleural thickening and adjacent right lower lobe atelectasis/consolidation (most likely due to infection), without significant change. Right thoracostomy tube stable in position. 2. Scattered ground-glass opacities within the upper lobes, new within the right upper lobe and stable to slightly decreased in the left upper lobe. These are most likely infectious/inflammatory in origin. Additional small ground-glass and small consolidative opacities within the inferior left lower lobe with adjacent centrilobular nodular opacities are most likely infectious and, in this location, may be related to aspiration. 3. Interval resolution of the left pleural effusion with overall decreased atelectasis in the left lower lobe. 4. Thoracic lymphadenopathy, likely reactive. 5. Known esophageal perforation; small locules of gas extending from the level of the distal esophagus into the right pleural space (images 90-93) may correspond to the site of perforation. Steel Turner: PSCB Transcribe Date/Time: Apr 24 2018 9:33A Dictated by : NEETU MORALES MD This examination was interpreted and the report reviewed and electronically signed by: NEETU MORALES MD on Apr 24 2018 10:26AM EST [id number] Observed: 04/24/2018 Status: COMPLETED Source: [place] 9:01 AM [facility] REPOSITORY O ID: [id number] Author: Isidra Gamboa (Andressa) ANDRESSA Chan Service: Radiology Author Type: Clinical Warrant Clerk Type: Progress Notes Filed: 04/24/2018 9:02 AM Note Text: Radiology Service Progress Note PATIENT NAME: Lazaro Villafana DATE OF SERVICE: April 24, 2018 TIME: 9:02 AM PATIENT IDENTITY VERIFICATION COMPLETED USING TWO (2) METHODS: ID Band and Date of . PATIENT GENDER DATA: Male PATIENT RELEVANT IMPLANT DATA REVIEWED: Yes RADIOLOGY DEPARTMENT: CT; Exam(s) Completed: Chest PERIPHERAL IV DATA: Not applicable SIGNED BY: ANDRESSA Najera April 24, 2018 9:02 AM CONSULT PROG Observed: 04/24/2018 Status: COMPLETED Source: [place] 7:36 AM [facility] REPOSITORY HNO ID: [id number] Author: Francois Gann Service: Thoracic Surgery Author Type: Resident Type: Consult Progress Note Filed: 04/24/2018 7:38 AM Note Text: [facility] THORACIC SURGERY CONSULT PROGRESS NOTE Lazaro Villafana [id number] PRIMARY SERVICE: HOSPITAL DAY: # 10 INTERVAL HISTORY No acute events overnight. Afebrile this morning. PHYSICAL EXAM BP 133/66 Pulse 90 Temp 36.8 ?C (98.2 ?F) (Oral) Resp 20 Ht 177.8 cm (5' 10) Wt 108.7 kg (239 lb 10.2 oz) SpO2 92% BMI 34.38 kg/m? Intake/Output Summary (Last 24 hours) at 04/24/18 0736 Last data filed at 04/24/18 0600 Gross per 24 hour Intake 2084 ml Output 2636 ml Net -552 ml ? Constitutional: No acute distress HEENT: EOM's intact Resp: Respiratory effort: normal Cardiovascular: Cardiac: Regular rate AND rhythm GI: Soft Integumentary: Warm Musculoskeletal: No deformities Neurological/Psychiatric: Alert Additional systems reviewed: No additional systems reviewed DATA Recent Labs 04/24/18 0441 04/23/18 1215 04/23/18 0206 WBC 8.99 8.05 7.48 HB 7.3* 7.3* 7.5* HCT 23.1* 23.1* 23.3* PLT 118* 108* 96* Recent Labs 04/24/18 0441 04/23/18 0206 04/22/18 0120 NA 145* 140 140 K 4.5 4.2 4.3 CO2 22 25 21* BUN 50* 54* 58* CREAT 1.13 1.35* 1.45* GLUC 165* 235* 223* MG 2.0 1.8 2.0 IMAGING I personally reviewed: CXR ASSESSMENT AND PLAN 52 year old male with multiple medical comorbidities now with likely partial thickness esophageal perforation, putatively from S-B tube placement at OSH. It is unlikely that this is the etiology of his massive hemoptysis, reportedly there were multiple varices that, in the background of cirrhosis is the likely etiology of his bleed. While he is requiring high doses of vasopressors, it is unlikely that the source of his shock is purely from his esophageal perforation given his lack of pleural effusion or free flowing contrast. 04/15 EGD showed 5cm esophageal laceration without active bleeding. 04/16 Right chest tube placed for effusion. 04/22 extubated. 04/22 Patient pulled NGT. ? Plan - CT chest repeat scan now that extubated and NGT is out - Pleural fluid culture ? ? Francois Gann MD,PhD Pager [phone] 04/24/2018 7:36 AM PROGRESS Observed: 04/24/2018 Status: COMPLETED Source: [place] 5:[address] [facility] REPOSITORY HNO ID: [id number] Author: Villa Thomas Service: General Surgery Author Type: Resident Type: Progress Notes Filed: 04/24/2018 10:47 AM Note Text: GENERAL SURGERY PROGRESS NOTE ASSESSMENT AND PLAN 52 year old male with PMHx type II DM, poorly controlled HTN, CKD, COPD, tobacco smoker 2-3 PPD, alcohol use disorder with recent diagnosis of cirrhosis w/ esophageal varices who presents on transfer from OSH with hematemesis s/p EGD at OSH c/b esophageal laceration that appears to be contained; MELD > 20. - Continue strict NPO - No surgical intervention planned - Follow Thoracic Surgery recommendations - CT Chest, follow pleural cultures - Repeat EGD next week to reassess esophageal tear + post- pyloric Corpak placement - Continue supportive/SICU care - trend labs Discussed with staff, *After 6pm and on weekends please page general surgery director of early childhood education [phone]* SUBJECTIVE/INTERVAL EVENTS VIPIN overnight No episodes of fever Continue worsening of R-hemithorax appearance on CXR with seemingly enlarging pleural effusion CT output 45 cc/24hrs OBJECTIVE BP 133/66 Pulse 90 Temp 36.8 ?C (98.2 ?F) (Oral) Resp 20 Ht 177.8 cm (5' 10) Wt 108.7 kg (239 lb 10.2 oz) SpO2 92% BMI 34.38 kg/m? Intake/Output Summary (Last 24 hours) at 04/23/18 0659 Last data filed at 04/23/18 0600 Gross per 24 hour Intake 3308.4 ml Output 3620 ml Net -311.6 ml General: alert, oriented, conversational CV: RRR Pulm: moderately labored breathing on room air Neck: no subQ emphysema/crepitus appreciated Abdomen: soft, non-distended Extremities: warm and well perfused Labs/Imaging: CBC, BMP, MG, PHOS Recent Labs 04/23/18 1215 04/23/18 0206 04/22/18 0120 04/21/18 0206 04/20/18 0134 WBC 8.05 7.48 8.44 9.75 < > 9.01 HB 7.3* 7.5* 7.4* 7.7* < > 8.0* HCT 23.1* 23.3* 23.0* 24.5* < > 24.9* PLT 108* 96* 88* 82* < > 74* NA -- 140 140 141 -- 143 K -- 4.2 4.3 4.2 -- 4.1 CHLOR -- 104 105 107* -- 111* CO2 -- 25 21* 21* -- 20* BUN -- 54* 58* 61* -- 57* CREAT -- 1.35* 1.45* 1.57* -- 1.50* GLUC -- 235* 223* 247* -- 219* CA -- 7.6* 7.5* 7.8* -- 7.7* MG -- 1.8 2.0 2.1 -- 2.0 P -- 3.2 2.8 2.4* -- 2.7 < > = values in this interval not displayed. Liver Function, Amylase, AND Lipase Recent Labs 04/23/18 0206 04/22/18 1439 04/22/18 1217 04/22/18 0855 04/22/18 0120 04/21/18 1252 04/21/18 0206 04/20/18 0134 TPROT 6.2* -- -- -- 5.8* -- 5.6* -- 5.1* ALB 2.3* -- -- -- 2.1* -- 2.2* -- 2.1* ALT 23 -- -- -- 18 -- 17 -- 14 AST 54* -- -- -- 51* -- 45* -- 37 ALKPHOS 74 -- -- -- 72 -- 65 -- 62 TBILI 0.7 -- -- -- 0.7 -- 0.8 -- 0.6 LACT -- 1.4 1.3 1.0 -- 1.2 -- < > -- < > = values in this interval not displayed. Coags Recent Labs 04/23/18 1215 04/22/18 1048 04/18/18 0002 04/17/18 0019 04/16/18 0031 APTT 35.4* -- 31.7 32.1 31.6 INR 1.5* 1.4* 1.3 1.3 1.4* Active Hospital Problems Diagnosis Date Noted - Coagulopathy (HCC) 04/22/2018 - Severe protein-calorie malnutrition (HCC) 04/22/2018 - Secondary thrombocytopenia 04/20/2018 - Acute post-operative pain 04/20/2018 - Acute respiratory insufficiency 04/20/2018 - Consolidation of right lower lobe of lung (HCC) 04/20/2018 - Secondary esophageal varices without bleeding (HCC) 04/20/2018 - Tobacco abuse 04/20/2018 - Acute blood loss anemia 04/20/2018 - Mediastinitis 04/20/2018 - Fever 04/20/2018 - Mild protein-calorie malnutrition (HCC) 04/17/2018 - Esophageal perforation 04/14/2018 - Alcoholic cirrhosis (HCC) 04/14/2018 - Hyperglycemia 04/14/2018 - COPD (chronic obstructive pulmonary disease) ([facility]) 04/14/2018 Chronic Villa Thomas MD PGY-1, General Surgery Acute Care Surgery: [id number] STAPH AUREUS PCR Collected: 04/24/2018 Status: F Source: [place] 4:44 AM [facility] REPOSITORY TYPE CODE TESTS RESULT OUT OF REFERENCE UNITS RANGE LAB SASRC Nasal S aureus Spec Source LAB MRSRES Negative for MRSA MRSA by PCR. PCR LAB SARES Negative for Staph Staphylococcus aureus PCR aureus by PCR. Performed By: #### SAPCR #### [facility] [address] [place], [place] [address] CBC AND DIFFERENTIAL Collected: 04/24/2018 Status: F Source: [place] 4:41 AM [facility] REPOSITORY TYPE CODE TESTS RESULT OUT OF REFERENCE UNITS RANGE LAB WBC 3.70-11.00 k/uL WBC 8.99 LAB RBC 4.20-6.00 m/uL Low RBC 2.57 LAB HGB 13.0-17.0 g/dL Low Hemoglobin 7.3 LAB HCT 39.0-51.0 % Low Hematocrit 23.1 LAB MCV 80.0-100.0 fL MCV 89.9 LAB MCH 26.0-34.0 pG MCH 28.4 LAB MCHC 30.5-36.0 g/dL MCHC 31.6 LAB RDWCV 11.5-15.0 % RDW-CV High 16.4 LAB PLTCT 150-400 k/uL Low Platelet Count 118 LAB MPV 9.0-12.7 fL MPV 11.2 LAB ANEUT % Neut% 77.2 LAB AANEUT 1.45-7.50 k/uL Abs Neut 6.94 LAB ALYMP % Lymph% 9.8 LAB AALYMP 1.00-4.00 k/uL Low Abs Lymph 0.88 LAB AMONO % Hendry% 9.9 LAB AAMONO <0.87 k/uL Abs Hendry High 0.89 LAB AEOS % Eosin% 2.7 LAB AAEOS <0.46 k/uL Abs Eosin 0.24 LAB ABASO % Baso% 0.4 LAB AABASO <0.11 k/uL Abs Baso 0.04 LAB AUNRBC 0 /100 WBC NRBCs 0.0 LAB ABNRBC <0.01 k/uL Absolute nRBC <0.01 LAB DTYP DTYPE Auto Diff Performed By: #### CBCDIF, BMP, MG1, PHOS #### [facility] [address] [place] [id number] BASIC METABOLIC PANL Collected: 04/24/2018 Status: F Source: [place] 4:[address] [facility] REPOSITORY TYPE CODE TESTS RESULT OUT OF REFERENCE UNITS RANGE LAB GLU 74-99 mg/dL High Glucose 165 Result Comment: The [place] [employer] (ADA) provides guidance for cutoff values for fasting glucose and random glucose. The ADA defines fasting as no caloric intake for at least 8 hours. Fas ting plasma glucose results between 100 to 125 mg/dL indicate increased risk for diabetes (prediabetes). Fasting plasma glucose results greater than or equal to 126 mg/dL meet the criteria for diagnosis of diabetes. In the absence of unequivocal hyperglycemia, results should be confirmed by repeat testing. In a patient with classic symptoms of hyperglycemia or hyperglycemic crisis, random plasma glucose results greater than or equal to 200 mg/dL meet the criteria for diagnosis of diabetes. Reference: Standards of Medical Care in Diabetes 2016, [place] [employer]. Diabetes Care. 2016.39(Suppl 1). LAB BUN 9-24 mg/dL BUN High 50 LAB CRET 0.73-1.22 mg/dL Creatinine 1.13 LAB NA 136-144 mmol/L Sodium High 145 LAB K 3.7-5.1 mmol/L Potassium 4.5 LAB CL 97-105 mmol/L Chloride High 111 LAB CO2 22-30 mmol/L CO2 22 LAB AGAP 9-18 mmol/L Anion Gap 12 LAB CA 8.5-10.2 mg/dL Low Calcium, Total 8.0 LAB GFRAA eGFR- Amer. >60 LAB GFRNAA . eGFR-All Other Races >60 Result Comment: eGFR (Estimated GFR) Units of measure: mL/min/1.73 meters squared eGFR is derived from the reexpressed MDRD Study equation using the following parameters: serum creatinine, age, gender and race. The creatinine assay has been calibrated to be traceable to IDMS. An eGFR <60 mL/min/1.73m2 for >3 months is consistent with chronic kidney disease. Refer to KDOQI guidelines for clinical interpretation. In patients with unstable renal function, e.g. those with acute kidney injury, the eGFR may not accurately reflect actual GFR. Performed By: #### CBCDIF, BMP, MG1, PHOS #### [facility] [address] [place], [place] [address] MAGNESIUM Collected: 04/24/2018 Status: F Source: [place] 4:41 [facility] REPOSITORY TYPE CODE TESTS RESULT OUT OF REFERENCE UNITS RANGE LAB MG 1.7-2.3 mg/dL Magnesium 2.0 Performed By: #### CBCDIF, BMP, MG1, PHOS #### [facility] [address] [place], [place] [address] PHOSPHORUS Collected: 04/24/2018 Status: F Source: [place] 4:41 [facility] REPOSITORY TYPE CODE TESTS RESULT OUT OF REFERENCE UNITS RANGE LAB PHOS 2.7-4.8 mg/dL Phosphorus 2.7 Performed By: #### CBCDIF, BMP, MG1, PHOS #### [facility] [address] [place], [place] [address] TYPE AND SCREEN Collected: 04/24/2018 Status: F Source: [place] 4:41 AM [facility] REPOSITORY TYPE CODE TESTS RESULT OUT OF REFERENCE UNITS RANGE LAB %ABR B ABO/RH(D) POSITIVE LAB % Antibody Screen POS LAB %MÓNICA Antibody Identified ANTI-E PRESENT. Performed By: #### TSCR #### [facility] [address] [place], [place] [address] RBC ANTIBODY INTERP Collected: 04/24/2018 Status: F Source: [place] (LAB ORDERED) 4:41 AM [facility] REPOSITORY TYPE CODE TESTS RESULT OUT OF REFERENCE UNITS RANGE LAB ABINT Antibody (NOTE) Interp Result Comment: Anti-E, a clinically significant alloantibody against the corresponding Rh blood group system antigen is identified. The presence of new anti-E within 28 days of transfusion is consistent with a delayed serological transfusion reaction. Clinical evaluation for hemolysis is suggested. The direct antiglobulin test (JORDAN) is positive 1+ for IgG and negative for complement. An eluate is negative for bound red cell antibodies. Clinical evaluation is suggested to determine the significance, if any, of the positive JORDAN. Approximately 70% of donor units will be negative for the E antigen. When possible please allow a minimum of 4 hours for pretransfusion and compatibility testing. LAB BBPATH Physician Signed by Review Francisco Hernandez MD ([id number]) Performed By: #### ABINTB #### [facility] [address] [place], [place] [address] XR CHEST 1V FRONTAL Observed: 04/24/2018 Status: F Source: [facility] 4:14 AM [facility] REPOSITORY * * *Final Report* * * DATE OF EXAM: Apr 24 2018 4:14AM [facility] [id number] - XR CHEST 1V FRONTAL PORT / PROCEDURE REASON: Acute respiratory illness * * * * Physician Interpretation * * * * EXAMINATION: CHEST RADIOGRAPH (PORTABLE SINGLE VIEW AP) Exam Date/Time: 04/24/2018 4:14 AM Clinical History: Acute respiratory illness, MQ: [id number] Comparison: 1 day prior RESULT: See impression. IMPRESSION: Lines, tubes, and devices: Stable position of right IJ central venous catheter and right thoracostomy tube. Lungs and pleura: Low lung volumes. Small to medium-sized right pleural effusion present, extending into the interlobar fissures with pseudotumor appearance. Mixed alveolar and interstitial opacities within the lungs bilaterally are without significant change and most likely reflect a combination of pulmonary edema and atelectasis; component of infection/aspiration not excluded in appropriate clinical setting. No large pneumothorax. Cardiomediastinal silhouette: Stable cardiomediastinal silhouette. Steel Turner: PSCAlexys Transcribe Date/Time: Apr 24 2018 8:27A Dictated by : NEETU MORALES MD This examination was interpreted and the report reviewed and electronically signed by: NEETU MORALES MD on Apr 24 2018 8:29AM EST [id number] PROGRESS Observed: 04/23/2018 Status: COMPLETED Source: [place] 4:[address] [facility] REPOSITORY HNO ID: [id number] Author: Rene Rajan Service: Anesthesiology Author Type: Anesthesiologist Type: Progress Notes Filed: 04/23/2018 7:40 PM Note Text: SURGICAL INTENSIVE CARE UNIT PROGRESS NOTE SERVICE DATE: April 23, 2018 SERVICE TIME: 4:42 PM Subjective Mr.?Howard Villafana is a 52-year-old male with PMHx type II DM, poorly controlled HTN, CKD, COPD, tobacco smoker 2-3 PPD, alcohol use disorder with recent diagnosis of cirrhosis was transferred from [facility] with an esophageal perforation seen on EGD. Patient initially presented with hematemesis and melena with accompanying dizziness and shortness of breath. Admitted to the SICU for surgical evaluation and hemodynamic monitoring. 04/23: hyperglycemia around 200, NGT pulled out by patient overnight with traumatic nose bleed which responded to afrin, pleural fluid Cx per primary, no need to replace NGT at this point, will re-evaluate early next week for sips/CLD Objective VITAL SIGNS Temp: 36.3 ?C (97.3 ?F) Pulse: 77 BP: 127/69 MAP Non Invasive (Mean Arterial Pressure): 89 Resp: 14 SpO2: 96 % Not applicable Current Facility-Administered Medications: labetalol 10 mg injection syringe (NORMODYNE) 10 mg INTRAVENOUS q 2 H PRN Parenteral Nutrition - Adult INTRAVENOUS ONCE TPN (2200 START) vancomycin iv piggyback 1 g in D5W 200 mL (VANCOCIN) 1 g INTRAVENOUS q 12 HR aztreonam 2 g in D5W 100 mL MB+ (AZACTAM) 2 g INTRAVENOUS q 6 HR heparin 5,000 Units injection 5,000 Units SUBCUTANEOUS q 12 H fluconazole 400 mg in NaCl (iso-osmotic) 200 mL (DIFLUCAN) 400 mg INTRAVENOUS DAILY vancomycin dosing and monitoring per pharmacy OTHER As Directed insulin regular human injection (short acting) (NovoLIN R,HumuLIN R) SUBCUTANEOUS q 6 H potassium chloride iv piggyback 20 mEq/100 mL 20 mEq INTRAVENOUS PRN Or potassium chloride 20-80 mEq CUP 20-80 mEq ORAL/FEEDING TUBE PRN magnesium sulfate in water 2 g in sterile water 50 ml 2 g INTRAVENOUS PRN sodium glycerophosphate 15 mmol in D5W 250 mL (GLYCOPHOS) 15 mmol INTRAVENOUS PRN Or sodium glycerophosphate 30 mmol in D5W 250 mL (GLYCOPHOS) 30 mmol INTRAVENOUS PRN Or sodium glycerophosphate 45 mmol in D5W 250 mL (GLYCOPHOS) 45 mmol INTRAVENOUS PRN insulin glargine 18 Units pen (long acting) (LANTUS SOLOSTAR, BASAGLAR KWIKPEN) 18 Units SUBCUTANEOUS AT BEDTIME dextrose 40 % 15 g 15 g ORAL PRN Or glucagon 1 mg injection (GLUCAGEN) 1 mg INTRAMUSCULAR PRN Or dextrose 50 % 12.5 g injection 12.5 g INTRAVENOUS PRN acetaminophen 650 mg suppository (TYLENOL) 650 mg RECTAL q 4 H PRN lactated ringers infusion 5-30 mL/hr INTRAVENOUS CONTINUOUS NaCl 0.9% 3-5 mL 3-5 mL INTRAVENOUS q 12 H fentaNYL 50 mcg/mL 25-50 mcg injection (SUBLIMAZE) 25-50 mcg INTRAVENOUS q 1 H PRN Chlorhexidine Gluconate 0.12 % 15 mL (PERIDEX) 15 mL ORAL QID metroNIDAZOLE 500 mg PREMIX piggyback (FLAGYL) 500 mg INTRAVENOUS q 8 H ipratropium-albuterol 3 mL nebulizer solution (DUONEB) 3 mL INHALATION q 4 H PRN pantoprazole 40 mg injection (PROTONIX) 40 mg INTRAVENOUS BID AC (0600/1600) Cardiovascular: Regular rhythm Abdomen: Soft and Nontender Extremities: Mild pedal edema Neuro: Sedated Intake/Output Summary (Last 24 hours) at 04/23/18 1642 Last data filed at 04/23/18 1600 Gross per 24 hour Intake 3248.4 ml Output 2950 ml Net 298.4 ml Current Weight: Weight: 108 kg (238 lb 1.6 oz) Admission Weight: Weight: 106.1 kg (233 lb 14.5 oz) RESPIRATORY Mechanical Ventilation: Vent Mode: PSV Freq (bpm): 18 PS (cmH20): 5 PEEP / CPAP (cmH20): 5 FIO2 (%): 40 Recent Labs 04/22/18 1439 04/22/18 1217 PH 7.42 7.38 PO2 150* 138* PCO2 34 38 BE NEG 2 NEG 2 HCO3 22 22 LACT 1.4 1.3 CXR Findings: Right effusion and overlying opacity not significantly changed. No pneumothorax. INFUSION(S): Propofol Patient Lines Assessed: Lines, Drains, and Airways Line Arterial Line 04/14/18 2320 Arterial Line Left Radial 8 days Central Line Triple Lumen 04/14/18 2319 Non-tunneled Right Neck 8 days Peripheral 04/14/18 2344 Left Antecubital 18 Gauge 8 days Drain Indwelling Urinary Catheter 04/14/182113 Admission to Hospital [facility] 8 days Chest Tube 04/16/18 2100 Right 28 Fr 6 days Diagnostic tests reviewed for today's visit: Most recent labs and imaging results. Assessment/Plan Neuro:? AOx3, extubated, comfortable -prn tylenol, prn fentanyl for pain ?CV:? -- Goal MAP >65 - CXR today- Right effusion and overlying opacity not significantly changed. No pneumothorax. ? Pulm:? ?Hx of COPD. Stable respiratory fn on RA -- duonebs prn -- Monitor chest tube output - will send pleural fluid for Cx -- Continue RT treatments -- repeat CT chest ordered per thoracic ? Renal:??(baseline Cr ~1.2 from 02/2018) -- stable kidney function, good UOP --Monitor Cr and I/Os --[place] continue ? GI:? Likely partial thickness esophageal perforation. Presented from OSH on 04/14 with hematemesis, melena dizziness and SOB. EtOH cirrhosis with portal HTN, grade 2 esophageal varices -- mid distal esophageal tear -- not amenable to esophageal stenting --NPO - thoracic to re-eval for CLD early next week pending results of CT scan --NGT removed by patient last night (04/22) --no need to replace NGT per thoracic (do not place blindly) ? Heme:? -- Hgb 7.5 (stable) -- thrombocytopenia. Will watch for signs of bleeding and need?for further transfusion --Transfuse to keep Hgb >7 - SQH ? Fluid/Electrolyte/Nutrition: --NPO --Replete lytes as one time dosing -- TPN ? Endo:? Hx of IDDM, HgbA1c 8.2. Glucose this am 200+ - BG goal 130-180 - lantus 20 units (increased from 18) Sliding scale insulin Scale 3 -- Nutrition will adjust lantus in TF ? ID:?Esohageal tear and perforation. aztreonam and flagyl at OSH -Intermittent low grade fevers - MSSA PCR positive - MRSA PCR negative -Started Vancomycin per ID recs to cover for GPC - transitioned cefepnie to aztreonam 04/22 - no on aztreonam, fluconazole, flagyl, vanco - allergy consult for skin test - negative - tolerated cefepime - ID following, appreciate recs ? PPX:? - GI ppx - pantoprazole - VTE ppx - 5k u BID ? Medication and Non-Pharmacologic VTE Prophylaxis/Anticoagulants Anticoagulant AND Antiplatelet Medications Start Dose Route Frequency Ordered Stop 04/21/18 0930 heparin 5,000 Units injection 5,000 Units SUBCUTANEOUS EVERY 12 HOURS 04/21/18 0901 -- 04/14/18 2100 pneumatic compression stockings (nc,ut) 04/14/18 2100 activity - mobilize patient ([place], [place]) VTE Prophylaxis: VTE prophylaxis appropriate SIGNATURE: Rasta Wilkinson MD PATIENT NAME: Lazaro Villafana DATE: April 23, 2018 TIME: 4:50 PM PAGER/CONTACT #: [email or web address] ICU STAFF -- DR. RAJAN REASON FOR ICU ADMISSION AND PERTINENT RECENT HISTORY Seriously ill 52 year old male requires supportive care in the SICU, off mechanical ventilation with no vasopressor support. He appears in no distress. CBC, Coags, BMP, Mg, Phos Recent Labs 04/23/18 1215 04/23/18 0206 04/22/18 1439 04/22/18 1217 04/22/18 1048 04/22/18 0855 01/0411904/21/18205 WBC 8.05 7.48 -- -- -- -- 8.44 -- 9.75 HB 7.3* 7.5* -- -- -- -- 7.4* -- 7.7* HCT 23.1* 23.3* -- -- -- -- 23.0* -- 24.5* PLT 108* 96* -- -- -- -- 88* -- 82* INR 1.5* -- -- -- 1.4* -- -- -- -- APTT 35.4* -- -- -- -- -- -- -- -- NA -- 140 -- -- -- -- 140 -- 141 K -- 4.2 -- -- -- -- 4.3 -- 4.2 CHLOR -- 104 -- -- -- -- 105 -- 107* CO2 -- 25 -- -- -- -- 21* -- 21* BUN -- 54* -- -- -- -- 58* -- 61* CREAT -- 1.35* -- -- -- -- 1.45* -- 1.57* GLUC -- 235* -- -- -- -- 223* -- 247* IC -- -- 1.11 1.10 -- 1.16 -- < > -- CA -- 7.6* -- -- -- -- 7.5* -- 7.8* MG -- 1.8 -- -- -- -- 2.0 -- 2.1 P -- 3.2 -- -- -- -- 2.8 -- 2.4* < > = values in this interval not displayed. CSF AND Dilantin Liver Function, Amylase, AND Lipase Recent Labs 04/23/18 0206 04/22/18 1439 04/22/18 1217 04/22/18 0855 04/22/18 01204/21/18205 TPROT 6.2* -- -- -- 5.8* -- 5.6* ALB 2.3* -- -- -- 2.1* -- 2.2* ALT 23 -- -- -- 18 -- 17 AST 54* -- -- -- 51* -- 45* ALKPHOS 74 -- -- -- 72 -- 65 TBILI 0.7 -- -- -- 0.7 -- 0.8 LACT -- 1.4 1.3 1.0 -- < > -- < > = values in this interval not displayed. Cardiac Enzymes ABGs Recent Labs 04/22/18 1439 04/22/18 1217 04/22/18 0855 PH 7.42 7.38 7.39 PCO2 34 38 36 PO2 150* 138* 98* BE NEG 2 NEG 2 NEG 3 HCO3 22 22 22 CO2CT 23 23 23 O2HB 98 98 96 COHB 1.3 1.4 1.3 MHGB 0.4 0.4 0.7 TEMP 37.0 37.0 37.0 PHTC 7.42 7.38 7.39 PCO2T 34 38 36 PO2T 150 138 98 I have examined the patient with the Housestaff (see above) and reviewed lab data and x-rays. I have evaluated the hemodynamic and respiratory data, ECG, prescribed IV fluids, prescribed nutritional and/or metabolic support.This care required my full attention and direct personal management in prevention of imminent clinical deterioration. Thank you for letting us follow this patient. SIGNATURE: George Rajan MD, MSc DATE: April 23, 2018 TIME: 7:38 PM Observed: 04/23/2018 Status: F Source: [place] RESPIRATORY CULT/STAIN 3:55 PM [facility] REPOSITORY Sp. Request/Comment: - Specimen received in sterile container. Smear Result - Rare Gram positive cocci --> ABNORMAL ALERT Moderate Polymorphonuclear leukocytes Few Mononuclear cells Few Epithelial cells Many Red Blood Cells Culture Result - Rare Normal respiratory abby present Performed By: #### RCULST #### [facility] [address] [place], [place] [address] CBC Collected: 04/23/2018 Status: F Source: [place] 12:15 PM [facility] REPOSITORY TYPE CODE TESTS RESULT OUT OF REFERENCE UNITS RANGE LAB WBC 3.70-11.00 k/uL WBC 8.05 LAB RBC 4.20-6.00 m/uL Low RBC 2.53 LAB HGB 13.0-17.0 g/dL Low Hemoglobin 7.3 LAB HCT 39.0-51.0 % Low Hematocrit 23.1 LAB MCV 80.0-100.0 fL MCV 91.3 LAB MCH 26.0-34.0 pG MCH 28.9 LAB MCHC 30.5-36.0 g/dL MCHC 31.6 LAB RDWCV 11.5-15.0 % RDW-CV High 16.2 LAB PLTCT 150-400 k/uL Low Platelet Count 108 Result Comment: Result checked and verified No clot detected. LAB MPV 9.0-12.7 fL MPV 11.2 LAB ABSNUC <0.01 k/uL Absolute nRBC <0.01 Performed By: #### CBC, PT, PTT #### [facility] [address] [place], [place] [address] PROTIME Collected: 04/23/2018 Status: F Source: [place] 12:15 PM [facility] REPOSITORY TYPE CODE TESTS RESULT OUT OF RANGE REFERENCE UNITS LAB PSEC 9.7-13.0 sec High PT Sec 15.5 LAB INR 0.9-1.3 High PT INR 1.5 Result Comment: Vitamin K Antagonist (VKA) Therapeutic Range: INR 2 to 3 (Target INR of 2.5) Note: For patients treated with VKA drugs, such as warfarin, the [place] [employer] 2012 Guideline recommends a therapeutic INR range of 2 to 3 (target INR of 2.5). This recommendation includes high-risk patients with antiphospholipid syndrome with previous arterial or venous thromboembolism, current-generation mechanical or bioprosthetic aortic heart valve replacement. Note: Patients with mechanical aortic valve replacement and additional risk factors for thromboembolic events (atrial fibrillation, previous thromboembolism, LV dysfunction, hypercoagulable conditions) or an older generation mechanical AVR (i.e., ball in-Cage) or any mechanical MVR should have a INR therapeutic range of 2.5 to 3.5 (target INR of 3). Serjio GH, et al. Chest 2012, 141:7S-47S Rashida RA et al. [facility] 2017, 70: 252-289 Performed By: #### CBC, PT, PTT #### [facility] [address] [place], [place] [address] APTT Collected: 04/23/2018 Status: F Source: [place] 12:15 PM [facility] REPOSITORY TYPE CODE TESTS RESULT OUT OF RANGE REFERENCE UNITS LAB APTT 23.0-32.4 sec High APTT 35.4 Result Comment: Unfractionated Heparin Therapeutic Ranges: Standard Heparin Nomogram: 53 to 78 seconds (anti-Xa level of 0.3 to 0.7 U/ml) Low Dose/ACS Nomogram: 49 to 67 seconds (anti-Xa level of 0.2 to 0.5 U/ml) Stroke Treatment Nomogram: 49 to 67 seconds (anti-Xa level of 0.2 to 0.5 U/ml) Note: The APTT therapeutic range has been determined for the current lot of laboratory APTT reagent in use throughout the [facility]. Performed By: #### CBC, PT, PTT #### [facility] [address] [place], [place] [address] NURSING PROG Observed: 04/23/2018 Status: COMPLETED Source: [place] 11:45 AM [facility] REPOSITORY HNO ID: [id number] Author: Orlando Ferreira) BLAYNE Ramsay Service: Nursing Author Type: Registered Nurse Type: Nursing Progress Note Filed: 04/23/2018 1:41 PM Note Text: Nursing Progress Note Patient Name: Lazaro Villafana Patient Location: [place] [address] 1145- Pt's nose began bleeding. Large blood clot coughed up. HOB at 90, pressure held on nasal bridge. Thoracic team paged and SICU at bedside. 1200- Determined source of bleeding in L nare. Gauze packing placed. Ordered labs sent. Will continue to monitor. 1315- Bleeding decreased. Nasal packing remains in place at this time. This note was completed by: Orlando Ramsay RN CONSULT PROG Observed: 04/23/2018 Status: COMPLETED Source: [place] 6:00 AM [facility] REPOSITORY HNO ID: [id number] Author: Francois Gnan Service: Thoracic Surgery Author Type: Resident Type: Consult Progress Note Filed: 04/23/2018 10:22 AM Note Text: [facility] THORACIC SURGERY CONSULT PROGRESS NOTE Lazaro Villafana [id number] PRIMARY SERVICE: HOSPITAL DAY: # 9 INTERVAL HISTORY No acute events overnight. Pt was extubated yesterday. On 4L NC now. CT output 20. Pt pulled his NGT yesterday afternoon. Has some generalized pain. PHYSICAL EXAM BP 140/68 Pulse 96 Temp (!) 38 ?C (100.4 ?F) Resp 20 Ht 177.8 cm (5' 10) Wt 108.7 kg (239 lb 10.2 oz) SpO2 99% BMI 34.38 kg/m? Intake/Output Summary (Last 24 hours) at 04/23/18 0600 Last data filed at 04/23/18 0500 Gross per 24 hour Intake 2676.4 ml Output 3340 ml Net -663.6 ml Constitutional: No acute distress HEENT: EOM's intact Resp: Respiratory effort: normal Cardiovascular: Cardiac: Regular rate AND rhythm GI: Soft Integumentary: Warm Musculoskeletal: No deformities Neurological/Psychiatric: Alert Additional systems reviewed: No additional systems reviewed DATA Recent Labs 04/23/18 0206 04/22/18 0120 04/21/18 0206 WBC 7.48 8.44 9.75 HB 7.5* 7.4* 7.7* HCT 23.3* 23.0* 24.5* PLT 96* 88* 82* Recent Labs 04/23/18 0206 04/22/18 0120 04/21/18 0206 NA 140 140 141 K 4.2 4.3 4.2 CO2 25 21* 21* BUN 54* 58* 61* CREAT 1.35* 1.45* 1.57* GLUC 235* 223* 247* MG 1.8 2.0 2.1 IMAGING I personally reviewed: CXR ASSESSMENT AND PLAN 52 year old male with multiple medical comorbidities now with likely partial thickness esophageal perforation, putatively from S-B tube placement at OSH. It is unlikely that this is the etiology of his massive hemoptysis, reportedly there were multiple varices that, in the background of cirrhosis is the likely etiology of his bleed. While he is requiring high doses of vasopressors, it is unlikely that the source of his shock is purely from his esophageal perforation given his lack of pleural effusion or free flowing contrast. 04/15 EGD showed 5cm esophageal laceration without active bleeding. 04/16 Right chest tube placed for effusion. 04/22 extubated. 04/22 Patient pulled NGT. ? Plan - STRICT NPO for at least 2 weeks - continue TPN for the time being - recommend repeat EGD next week, could potentially discuss having post-pyloric corpak placed at that point, please discuss with GI - CT chest repeat scan now that extubated and NGT is out - Pleural fluid culture ? Francois Gann MD,PhD Pager [phone] 04/23/2018 6:00 AM PROGRESS Observed: 04/23/2018 Status: COMPLETED Source: [place] 5:[address] [facility] REPOSITORY HNO ID: [id number] Author: Villa Thomas Service: General Surgery Author Type: Resident Type: Progress Notes Filed: 04/23/2018 7:56 AM Note Text: GENERAL SURGERY PROGRESS NOTE ASSESSMENT AND PLAN 52 year old male with PMHx type II DM, poorly controlled HTN, CKD, COPD, tobacco smoker 2-3 PPD, alcohol use disorder with recent diagnosis of cirrhosis w/ esophageal varices who presents on transfer from OSH with hematemesis s/p EGD at OSH c/b esophageal laceration that appears to be contained; MELD > 20 - Continue strict NPO - Patient removed his NGT overnight; this should not be reinserted blindly - No surgical intervention planned - Will need repeat EGD to reassess esophageal tear early next week - Corpak may be placed at that time - Continues to be febrile, no appreciable improvement of R hemithorax appearance on CXR with R sided CT with minimal output: will defer management to our thoracic surgery colleagues - Continue supportive/SICU care - trend labs Plan to be discussed further with staff *After 6pm and on weekends please page general surgery director of early childhood education [phone]* SUBJECTIVE/INTERVAL EVENTS Remains febrile (39 overnight), no leukocytosis, adequate UOP Right hemithorax still with hazy opacities on CXR CT output 70 cc/24hrs NGT output 300 cc OBJECTIVE BP 140/68 Pulse 96 Temp (!) 38 ?C (100.4 ?F) Resp 20 Ht 177.8 cm (5' 10) Wt 108.7 kg (239 lb 10.2 oz) SpO2 99% BMI 34.38 kg/m? Intake/Output Summary (Last 24 hours) at 04/22/18 0659 Last data filed at 04/22/18 0600 Gross per 24 hour Intake 4117 ml Output 2630 ml Net 1487 ml General: sedated, ill appearing CV: RRR Pulm: ventilator Neck: no subQ emphysema/crepitus appreciated Abdomen: soft, non-distended Neuro: limited exam 2/ sedation Labs/Imaging: CBC, BMP, MG, PHOS Recent Labs 04/23/18 0206 04/22/18 0120 04/21/18 0206 04/20/18 1338 04/20/18 0134 WBC 7.48 8.44 9.75 10.03 9.01 HB 7.5* 7.4* 7.7* 7.9* 8.0* HCT 23.3* 23.0* 24.5* 24.2* 24.9* PLT 96* 88* 82* 66* 74* NA 140 140 141 -- 143 K 4.2 4.3 4.2 -- 4.1 CHLOR 104 105 107* -- 111* CO2 25 21* 21* -- 20* BUN 54* 58* 61* -- 57* CREAT 1.35* 1.45* 1.57* -- 1.50* GLUC 235* 223* 247* -- 219* CA 7.6* 7.5* 7.8* -- 7.7* MG 1.8 2.0 2.1 -- 2.0 P 3.2 2.8 2.4* -- 2.7 Liver Function, Amylase, AND Lipase Recent Labs 04/23/18 0206 04/22/18 1439 04/22/18 1217 04/22/18 0855 04/22/18 0120 04/21/18 1252 04/21/18 0206 04/20/18 0134 TPROT 6.2* -- -- -- 5.8* -- 5.6* -- 5.1* ALB 2.3* -- -- -- 2.1* -- 2.2* -- 2.1* ALT 23 -- -- -- 18 -- 17 -- 14 AST 54* -- -- -- 51* -- 45* -- 37 ALKPHOS 74 -- -- -- 72 -- 65 -- 62 TBILI 0.7 -- -- -- 0.7 -- 0.8 -- 0.6 LACT -- 1.4 1.3 1.0 -- 1.2 -- < > -- < > = values in this interval not displayed. Coags Recent Labs 04/22/18 1048 04/18/18 0002 04/17/18 0019 04/16/18 0031 04/15/18 0345 APTT -- 31.7 32.1 31.6 -- Unable to assay. Specimen improperly collected/handled. INR 1.4* 1.3 1.3 1.4* < > Unable to assay. Specimen improperly collected/handled. < > = values in this interval not displayed. Active Hospital Problems Diagnosis Date Noted - Coagulopathy (HCC) 04/22/2018 - Severe protein-calorie malnutrition (HCC) 04/22/2018 - Secondary thrombocytopenia 04/20/2018 - Acute post-operative pain 04/20/2018 - Acute respiratory insufficiency 04/20/2018 - Consolidation of right lower lobe of lung (HCC) 04/20/2018 - Secondary esophageal varices without bleeding (HCC) 04/20/2018 - Tobacco abuse 04/20/2018 - Acute blood loss anemia 04/20/2018 - Mediastinitis 04/20/2018 - Fever 04/20/2018 - Mild protein-calorie malnutrition (HCC) 04/17/2018 - Esophageal perforation 04/14/2018 - Alcoholic cirrhosis (HCC) 04/14/2018 - Hyperglycemia 04/14/2018 - COPD (chronic obstructive pulmonary disease) ([facility]) 04/14/2018 Chronic Villa Thomas MD PGY-1, General Surgery Acute Care Surgery: [id number] XR CHEST 1V FRONTAL Observed: 04/23/2018 Status: F Source: [facility] 4:23 AM [facility] REPOSITORY * * *Final Report* * * DATE OF EXAM: Apr 23 2018 4:23AM [facility] [id number] - XR CHEST 1V FRONTAL PORT / PROCEDURE REASON: Acute respiratory illness * * * * Physician Interpretation * * * * EXAMINATION: CHEST RADIOGRAPH (PORTABLE SINGLE VIEW AP) Exam Date/Time: 04/23/2018 4:23 AM Clinical History: Acute respiratory illness, MQ: [id number] Comparison: 04/22/2018 at 0349 hours RESULT: See impression. IMPRESSION: Lines, tubes, and devices: Stable position of right IJ central venous catheter and right-sided thoracostomy tube. The patient has been extubated and the NG tube removed. Lungs and pleura: Low lung volumes. Small to medium-sized right pleural effusion extending into the interlobar fissures. Bilateral reticular opacities with peribronchial cuffing, likely related to mild interstitial pulmonary edema. No large pneumothorax. Cardiomediastinal silhouette: Cardiomediastinal silhouette is stable in size. Steel Turner: NIDHI Transcribe Date/Time: Apr 23 2018 8:19A Dictated by : NEETU MORALES MD This examination was interpreted and the report reviewed and electronically signed by: NEETU MORALES MD on Apr 23 2018 8:22AM EST [id number] CBC AND DIFFERENTIAL Collected: 04/23/2018 Status: F Source: [place] 2:06 AM [facility] REPOSITORY TYPE CODE TESTS RESULT OUT OF REFERENCE UNITS RANGE LAB WBC 3.70-11.00 k/uL WBC 7.48 LAB RBC 4.20-6.00 m/uL Low RBC 2.58 LAB HGB 13.0-17.0 g/dL Low Hemoglobin 7.5 LAB HCT 39.0-51.0 % Low Hematocrit 23.3 LAB MCV 80.0-100.0 fL MCV 90.3 LAB MCH 26.0-34.0 pG MCH 29.1 LAB MCHC 30.5-36.0 g/dL MCHC 32.2 LAB RDWCV 11.5-15.0 % RDW-CV High 16.1 LAB PLTCT 150-400 k/uL Low Platelet Count 96 Result Comment: No clot detected. LAB MPV 9.0-12.7 fL MPV 10.7 LAB ANEUT % Neut% 79.6 LAB AANEUT 1.45-7.50 k/uL Abs Neut 5.95 LAB ALYMP % Lymph% 8.4 LAB AALYMP 1.00-4.00 k/uL Low Abs Lymph 0.63 LAB AMONO % Hendry% 8.6 LAB AAMONO <0.87 k/uL Abs Hendry 0.64 LAB AEOS % Eosin% 2.9 LAB AAEOS <0.46 k/uL Abs Eosin 0.22 LAB ABASO % Baso% 0.5 LAB AABASO <0.11 k/uL Abs Baso 0.04 LAB AUNRBC 0 /100 WBC NRBCs High 0.3 LAB ABNRBC <0.01 k/uL High Absolute nRBC 0.02 LAB DTYP DTYPE Auto Diff Performed By: #### CBCDIF, CMP, MG1, PHOS #### [facility] [address], [place] [address] COMP METABOLIC PANEL Collected: 04/23/2018 Status: F Source: [place] 2:[address] [facility] REPOSITORY TYPE CODE TESTS RESULT OUT OF REFERENCE UNITS RANGE LAB TP 6.3-8.0 g/dL Low Protein, Total 6.2 LAB ALB 3.9-4.9 g/dL Low Albumin 2.3 LAB CA 8.5-10.2 mg/dL Low Calcium, Total 7.6 LAB TBIL 0.2-1.3 mg/dL Bilirubin, Total 0.7 LAB ALKP 38-113 U/L Alkaline Phosphatase 74 LAB AST 14-40 U/L AST High 54 LAB GLU 74-99 mg/dL Glucose High 235 Result Comment: The [place] [employer] (ADA) provides guidance for cutoff values for fasting glucose and random glucose. The ADA defines fasting as no caloric intake for at least 8 hours. Fas ting plasma glucose results between 100 to 125 mg/dL indicate increased risk for diabetes (prediabetes). Fasting plasma glucose results greater than or equal to 126 mg/dL meet the criteria for diagnosis of diabetes. In the absence of unequivocal hyperglycemia, results should be confirmed by repeat testing. In a patient with classic symptoms of hyperglycemia or hyperglycemic crisis, random plasma glucose results greater than or equal to 200 mg/dL meet the criteria for diagnosis of diabetes. Reference: Standards of Medical Care in Diabetes 2016, [place] [employer]. Diabetes Care. 2016.39(Suppl 1). LAB BUN 9-24 mg/dL BUN High 54 LAB CRET 0.73-1.22 mg/dL Creatinine High 1.35 LAB NA 136-144 mmol/L Sodium 140 LAB K 3.7-5.1 mmol/L Potassium 4.2 LAB CL 97-105 mmol/L Chloride 104 LAB CO2 22-30 mmol/L CO2 25 LAB AGAP 9-18 mmol/L Anion Gap 11 LAB ALT 10-54 U/L ALT 23 LAB GFRAA eGFR- Amer. >60 LAB GFRNAA . eGFR-All Other Races 56 Result Comment: eGFR (Estimated GFR) Units of measure: mL/min/1.73 meters squared eGFR is derived from the reexpressed MDRD Study equation using the following parameters: serum creatinine, age, gender and race. The creatinine assay has been calibrated to be traceable to IDMS. An eGFR <60 mL/min/1.73m2 for >3 months is consistent with chronic kidney disease. Refer to KDOQI guidelines for clinical interpretation. In patients with unstable renal function, e.g. those with acute kidney injury, the eGFR may not accurately reflect actual GFR. Performed By: #### CBCDIF, CMP, MG1, PHOS #### [facility] [address] [place] [address] MAGNESIUM Collected: 04/23/2018 Status: F Source: [place] 2:06 AM [facility] REPOSITORY TYPE CODE TESTS RESULT OUT OF REFERENCE UNITS RANGE LAB MG 1.7-2.3 mg/dL Magnesium 1.8 Performed By: #### CBCDIF, CMP, MG1, PHOS #### [facility] [address] [place] [address] PHOSPHORUS Collected: 04/23/2018 Status: F Source: [place] 2:06 AM [facility] REPOSITORY TYPE CODE TESTS RESULT OUT OF REFERENCE UNITS RANGE LAB PHOS 2.7-4.8 mg/dL Phosphorus 3.2 Performed By: #### CBCDIF, CMP, MG1, PHOS #### [facility] [address] [place] [address] GASA + ALL Collected: 04/22/2018 Status: F Source: [place] FOR 2:39 PM [facility] USE ONLY REPOSITORY TYPE CODE TESTS RESULT OUT OF REFERENCE UNITS RANGE LAB PH 7.35-7.45 pH 7.42 LAB PCO2 34-46 mm Hg pCO2 34 LAB PO2 85-95 mm Hg pO2 150 High LAB BE mmol/L Base Excess NEG 2 LAB HCO3 22-26 mmol/L Bicarbonate 22 LAB CO2CT 22.0-28.0 mmol/L CO2 Content 23 LAB O2HB 95-98 % 98 Oxyhemoglobin, Art. LAB COHB 0-5.0 % 1.3 Carboxyhemoglobin ,Art LAB MHGB 0.4-1.5 % 0.4 Methemoglobin LAB TEMP C 37.0 Temperature, Body LAB PHTC 7.35-7.45 pH, Temp 7.42 Corrected LAB PCO2T 34-46 mm Hg pCO2, Temp 34 Correct LAB PO2T mm Hg pO2, Temp 150 Corrected LAB NAB 135-146 mmol/L 139 Sodium,Whole Bld LAB KWB 3.5-5.0 mmol/L Potassium, 3.9 Whole Bld LAB HGBB 13.0-17.0 g/dL 7.6 Low Hemoglobin,Total, ACL LAB HCTB 39.0-51.0 % Hematocrit, 24 Low ACL LAB IC 1.08-1.30 mmol/L Calcium, 1.11 Ion, WB LAB GLB 60-105 mg/dL 223 High Glucose,Whole Bld LAB LACT 0.5-2.2 mmol/L Lactate 1.4 LAB ABGCOM Blood Gas O2 Comm, Art Administration Result Comment: 6L LAB ACBDTE [id number] Notify Date, Art LAB ACBTME [id number] Notify Time, Art Performed By: #### ALLBG #### [facility] [address] [place], [place] [address] PROGRESS Observed: 04/22/2018 Status: COMPLETED Source: [place] 2:30 PM [facility] REPOSITORY HNO ID: [id number] Author: Aidan Alas Service: Critical Care Author Type: Anesthesiologist Type: Progress Notes Filed: 04/22/2018 2:45 PM Note Text: ICU STAFF -- AIDAN ALAS REASON FOR ICU ADMISSION AND PERTINENT RECENT HISTORY Critically ill 52 year old male presented to OSH on 04/14/18 with hematemesis which was temporized with a Sengstaken-Tony tube. ?A subsequent EGD showed esophageal varices without active bleeding, old blood in stomach, normal duodenum, and a large clot over a esophageal perforation/tear [linear, partial thickness esophageal laceration from 31-37 cm from incisors]. He was transferred to [facility] on 04/14/18 for further management. ? Thoracic surgery is following the patient and is planning conservative management given that CT scan shows partial thickness esophageal tear without active mediastinal or pleural extravasation. ? ? Patient is s/p EGD on 04/15/18 which showed evidence of hematin and blood clots in both esophagus and stomach; deep esophageal tear previously described noted ~5 cm in length. ?Defer placement of esophageal stent. ? Thoracic surgery placed R sided CT on 04/17 given changing ventilator requirements. ?There was approximately 400 cc of serosanguinous fluid drained with significant improvement in oxygenation requirements. ?There was not significant change in the imaging. ? ? Notable PMHx: type II DM, poorly controlled HTN, CKD, COPD, tobacco smoker 2-3 PPD, alcohol use disorder with a recent diagnosis of cirrhosis, reported + PPD in the past but currently no clinical or imaging evidence of active pulmonary TB Subjective: fevers continue, otherwise no acute events overnight Objective: Physical exam: BP 127/63 Pulse 99 Temp (!) 38.8 ?C (101.8 ?F) (Oral) Resp 22 Ht 177.8 cm (5' 10) Wt 108 kg (238 lb 1.6 oz) SpO2 95% BMI 34.16 kg/m? Weight change: 0.2 kg (7.1 oz) 1. HEENT: normocephalic 2. Neck: midline trachea 3. Lungs: bilateral chest rise; R CT in place (no leak noted) 4. Heart: S1:+ S2:+ 5. Abdomen: soft 6. Extremities: 1+ edema; 1+ edema RUE 7. Skin: WWP 8. Neurological: arousable and follows commands Lab: CBC, Coags, BMP, Mg, Phos Recent Labs 04/22/18 1217 04/22/18 1048 04/22/18 0855 04/22/18 0120 04/21/18 1252 04/21/18 0206 04/20/18 1338 04/20/18 0134 WBC -- -- -- 8.44 -- 9.75 10.03 -- 9.01 HB -- -- -- 7.4* -- 7.7* 7.9* -- 8.0* HCT -- -- -- 23.0* -- 24.5* 24.2* -- 24.9* PLT -- -- -- 88* -- 82* 66* -- 74* INR -- 1.4* -- -- -- -- -- -- -- NA -- -- -- 140 -- 141 -- -- 143 K -- -- -- 4.3 -- 4.2 -- -- 4.1 CHLOR -- -- -- 105 -- 107* -- -- 111* CO2 -- -- -- 21* -- 21* -- -- 20* BUN -- -- -- 58* -- 61* -- -- 57* CREAT -- -- -- 1.45* -- 1.57* -- -- 1.50* GLUC -- -- -- 223* -- 247* -- -- 219* IC 1.10 -- 1.16 -- 1.16 -- -- < > -- CA -- -- -- 7.5* -- 7.8* -- -- 7.7* MG -- -- -- 2.0 -- 2.1 -- -- 2.0 P -- -- -- 2.8 -- 2.4* -- -- 2.7 < > = values in this interval not displayed. Liver Function, Amylase, AND Lipase Recent Labs 04/22/18 1217 04/22/18 0855 04/22/18 0120 04/21/18 1252 04/21/18 0206 04/20/18 0134 TPROT -- -- 5.8* -- 5.6* -- 5.1* ALB -- -- 2.1* -- 2.2* -- 2.1* ALT -- -- 18 -- 17 -- 14 AST -- -- 51* -- 45* -- 37 ALKPHOS -- -- 72 -- 65 -- 62 TBILI -- -- 0.7 -- 0.8 -- 0.6 LACT 1.3 1.0 -- 1.2 -- < > -- < > = values in this interval not displayed. CXR: ongoing R sided opacity Fluids: Intake/Output Summary (Last 24 hours) at 04/22/18 0659 Last data filed at 04/22/18 0600 Gross per 24 hour Intake 4117 ml Output 2630 ml Net 1487 ml Daily Assessments: Restraints- no Central Access- yes Sedation interruption- yes Mcclain catheter required for clinical management- yes Assessment: Critically ill Patient Active Hospital Problem List: Hyperglycemia (04/14/2018) Alcoholic cirrhosis (HCC) (04/14/2018) COPD (chronic obstructive pulmonary disease) (HCC) (04/14/2018) Esophageal perforation (04/14/2018) Mild protein-calorie malnutrition (HCC) (04/17/2018) Secondary thrombocytopenia (04/20/2018) Acute post-operative pain (04/20/2018) Acute respiratory insufficiency (04/20/2018) Consolidation of right lower lobe of lung (HCC) (04/20/2018) Secondary esophageal varices without bleeding (HCC) (04/20/2018) Tobacco abuse (04/20/2018) Acute blood loss anemia (04/20/2018) Mediastinitis (04/20/2018) Fever (04/20/2018) Coagulopathy (HCC) (04/22/2018) Severe protein-calorie malnutrition (HCC) (04/22/2018) Plan: Patient was weaned from ventilator to PS 5/5 and 40%. ABG notable for adequate oxygenation and ventilation. Appropriate mechanics on ventilator. Discussed WTE with GI and thoracic surgery. Extubated this afternoon to MI. Low threshold for re-intubation given that NIPPV is not appropriate in the setting of an esophageal perforation. Furosemide 40 mg IV x 1 to optimize fluid status prior to extubation. It is difficult to understand why the high fevers continue. The patient appears to be improving from multiple aspects after the initial presentation on 04/14/18. Procalcitonin is downtrending from previous draw on 04/14/18. We contacted thoracic surgery to ensure there is no surgical option for washout. ID has recommended adjusting the medication regimen to r/o drug fever. We will continue to follow the fever curve. Insulin will be increased in TPN. Continue to monitor anemia. No indication for transfusion. MELD 14 today. Prophylaxis: DVT: SQH/SCDs Stress gastritis: pantoprazole BID ? I have personally examined the patient today for an aggregate of 36 min of critical care time. I have examined the patient and reviewed lab data and x-rays. I have evaluated the hemodynamic and respiratory data, ECG, prescribed IV fluids, adjusted mechanical ventilation, assessed antibiotic therapy, prescribed nutritional and/or metabolic support. This care required my full attention and direct personal management in prevention of imminent clinical deterioration. ? Thank you for letting me follow this patient. SIGNATURE: Aidan Alas MD DATE: April 22, 2018 TIME: 2:30 PM THERAPY NT Observed: 04/22/2018 Status: COMPLETED Source: [place] 1:33 PM [facility] REPOSITORY HNO ID: [id number] Author: Ekaterina (Pt) Sagrario Service: Physical Therapy Author Type: Physical Therapist Type: Therapy (PT/OT/Speech/Resp) Filed: 04/22/2018 1:34 PM Note Text: PHYSICAL THERAPY MISSED VISIT SERVICE DATE: 04/22/2018 SERVICE TIME: 1332 to 1332 ROOM: [place] [address] Attempted Evaluation. Patient just extubated within the past hour after prolonged intubation/sedation. Will defer PT/OOB at this time to allow patient to sustain extubation, but will re-attempt and most likely trial OOB then d/t patient's medical improvement. SIGNATURE: Ekaterina Zabala PT PATIENT NAME: Lazaro Villafana DATE: April 22, 2018 TIME: 1:33 PM CONSULT PROG Observed: 04/22/2018 Status: COMPLETED Source: [place] 12:17 PM [facility] REPOSITORY HNO ID: [id number] Author: Dakotah Gaxiola (Retail Merchandiser Technician) Service: Pharmacy Author Type: Pharmacist Type: Consult Progress Note Filed: 04/22/2018 12:24 PM Note Text: PHARMACY VANCOMYCIN DOSING NOTE Patient Name: Lazaro Villafana Admission Date: 04/14/2018 Date of Consult: 04/22/2018 Time of Consult: 12:17 PM Indication: Pneumonia Goal Range: 10-20 mcg/mL RECOMMENDATIONS/PLAN: Pharmacy consulted for vancomycin dosing for Lazaro Villafana, a 52 year old, male who is being treated with vancomycin for pneumonia. 1. Patient is currently ordered Vancomycin 1.5 g IV q12h. Today is day 3 of therapy. 2. The most recent vancomycin level was 24.3 mcg/mL drawn at 0120 on 04/22. This is a 10.5 hour level on the 3rd day of therapy. 3. Will decrease vancomycin to 1 g with a dosing interval of q12h based on random trough level and expectation that patient will accumulate further as they are not yet at steady state. 4. The next vancomycin level will be ordered for 04/26 unless clinically indicated sooner. (Pharmacy will order) We will follow patient renal function, vancomycin levels and doses with you during the course of therapy. Additional recommendations will appear in follow up notes. If you have any questions, please contact Dakotah Gaxiola PharmD at [phone]. Age: [age] year old Allergies: ALLERGIES Allergen Reactions - Ciprofloxacin Unknown - Penicillin Unknown Tolerating cefepime Last 3 Encounter Wt Readings: Date: Wt: 04/14/2018 108 kg (238 lb 1.6 oz) 04/14/2018 97 kg (213 lb 13.5 oz) Last 1 Encounter Ht Readings: Date: Ht: 04/14/2018 177.8 cm (5' 10) CrCl: 75 mL/min Temp (24hrs), Av.2 ?C (100.7 ?F), Min:37.8 ?C (100 ?F), Max:39 ?C (102.2 ?F) - Current Temp: 37.8 ?C (100.1 ?F) Labs BUN (mg/dL) Date Value 04/22/2018 58 (H) 04/21/2018 61 (H) 04/20/2018 57 (H) Creatinine (mg/dL) Date Value 04/22/2018 1.45 (H) 04/21/2018 1.57 (H) 04/20/2018 1.50 (H) WBC (k/uL) Date Value 04/22/2018 8.44 04/21/2018 9.75 04/20/2018 10.03 Vancomycin Levels: Vancomycin, result (ug/mL) Date/Time Value 04/22/2018 0120 24.3 (H) DAKOTAH GAXIOLA, CHEMISTRY LAB INSTRUCTOR GASA + ALL Collected: 04/22/2018 Status: F Source: [place] FOR 12:17 PM [facility] USE ONLY REPOSITORY TYPE CODE TESTS RESULT OUT OF REFERENCE UNITS RANGE LAB PH 7.35-7.45 pH 7.38 LAB PCO2 34-46 mm Hg pCO2 38 LAB PO2 85-95 mm Hg pO2 138 High LAB BE mmol/L Base Excess NEG 2 LAB HCO3 22-26 mmol/L Bicarbonate 22 LAB CO2CT 22.0-28.0 mmol/L CO2 Content 23 LAB O2HB 95-98 % 98 Oxyhemoglobin, Art. LAB COHB 0-5.0 % 1.4 Carboxyhemoglobin ,Art LAB MHGB 0.4-1.5 % 0.4 Methemoglobin LAB TEMP C 37.0 Temperature, Body LAB PHTC 7.35-7.45 pH, Temp 7.38 Corrected LAB PCO2T 34-46 mm Hg pCO2, Temp 38 Correct LAB PO2T mm Hg pO2, Temp 138 Corrected LAB NAB 135-146 mmol/L 138 Sodium,Whole Bld LAB KWB 3.5-5.0 mmol/L Potassium, 4.0 Whole Bld LAB HGBB 13.0-17.0 g/dL 7.5 Low Hemoglobin,Total, ACL LAB HCTB 39.0-51.0 % Hematocrit, 23 Low ACL LAB IC 1.08-1.30 mmol/L Calcium, 1.10 Ion, WB LAB GLB 60-105 mg/dL 197 High Glucose,Whole Bld LAB LACT 0.5-2.2 mmol/L Lactate 1.3 LAB ABGCOM Blood Gas O2 Comm, Art Administration Result Comment: 40% Performed By: #### ALLBG #### [facility] [address] [place] [id number] NUTRITION Observed: 04/22/2018 Status: COMPLETED Source: [place] 12:03 PM [facility] REPOSITORY HNO ID: [id number] Author: Sari Weston Service: NST-Nutrition Support Team Author Type: Registered Dietitian Type: Nutrition Filed: 04/22/2018 12:22 PM Note Text: NUTRITION SUPPORT TEAM PROGRESS NOTE SERVICE DATE: 04/22/2018 SERVICE TIME: 1025 RECOMMENDED DIAGNOSIS: MILD PROTEIN-CALORIE MALNUTRITION per Registered Dietitian on 04/17/2018 NUTRITION CARE PLAN Intervention: 1. ?Continue TPN with decreased volume and increased insulin ?- PN to provide 110gms 15% AA, 600 dextrose calories, 1.2L at 50ml/hr ?- orders pended with incr MgSO4, incr Na+ acetate, incr NaPhos, MVI, MTE, 55-85u insulin (1:2 ratio), 100mg thiamine ?- adjust PN calories with propofol infusion. ?PN currently not meeting minimum calories with current propofol rate and with hyperglycemia did not increase dextrose 2. ?Defer 250ml IVPB lipids 20% fat emulsion with propofol ? Monitor and Evaluation: Goal: Meet >75% of estimated needs Monitor fluid/electrolyte balance Monitor labs, I/Os, vital signs, weight ? Discharge Nutrition Recommendations:? To be determined ? 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 Patient initially presented with hematemesis and melena with accompanying dizziness and shortness of breath. Transferred to [facility] on 04/14 for further management. s/p EGD 04/15?which showed a deep esophageal tear. ?Plan for a minimum of NPO x 2 weeks. ?04/16 Right chest tube placed for effusion. Interval History: TPN continues. Propofol continues. hyperglycemia. Discussed PN orders with SICU staff - incr insulin, reduce volume Pt is febrile with Tmax: 39 Resp: intubated I/O's: Intake/Output Summary (Last 24 hours) at 04/22/18 1213 Last data filed at 04/22/18 1100 Gross per 24 hour Intake 4117 ml Output 3120 ml Net 997 ml overall +32270.2 Abdomen: not assessed Last BM: ?04/22 - black Enteral access: ?n/a; NG to low suction with 400ml output past 24 hours Parenteral access: ?right IJ TLC placed 04/14 Labs: PO4 improved/suboptimal, hyperglycemia, Cl improved, hypocapnia, K+ trending up, lactate 1.0, ionized calcium 1.16 Blood Gases: pH 7.39, pCO2 36, HCO3 22 Blood sugars: 240, 232; Whole blood glucose 04/22 @0855 174 Cultures: blood cx x 2 no growth x 2 days; blood cx x 2 no growth x 5 days Imaging: n/a Nutritional Intake: Intake History BI DATA ARCHITECT: Unable to determine Current intake: 04/17: ?Average 5 day intakes meeting <50% of estimated energy need.s started on PN 04/17 due to esophageal tear, plan for NPO x 2 weeks 04/18: currently goal kcals, PN 940 kcals, 110 g pro + propofol 765 kcals/day 04/20: ?TPN wi orders 04/17 - 1/1 to provide 110gms protein and 940 claories + additional calories from propofol (04/19 provided 626 calories) 04/21 - 04/22: PN with orders 04/20 - 04/21 to provide 100gms protein and 1000 calories + additional calories from propofol Current Diet Order DIET NPO Lines and Drains: Central Line Triple Lumen 04/14/18 2319 Non-tunneled Right Neck (Active) Peripheral 04/14/18 2344 Left Antecubital 18 Gauge (Active) GI Feed/Drain 04/14/18 2319 Nasogastric Left Naris 16 Fr (Active) Indwelling Urinary Catheter 04/14/182113 Admission to Hospital [facility] (Active) Chest Tube 04/16/182099 Right 28 Fr (Active) Height: 177.8 cm (5' 10) Admission Weight: 106.1 kg (233 lb 14.5 oz) Current Weight: 108 kg (238 lb 1.6 oz) Body mass index is 34.16 kg/m?. Usual body weight ?Unable to determine? No weight history available. ? Estimated nutrition goals: [place] body weight: 75.4 kg Dosing weight: 106?kg (04/14; BMI 33.5kg/m2)?? Calorie needs 0238-9019?kilocalories determined by = 15-20?kcals/kg ?Dosing?weight? Protein needs: 90 - 121?grams determined by 1.2 -1.6g/kg ideal?weight?- due to CKD Temp (24hrs), Av.2 ?C (100.7 ?F), Min:37.8 ?C (100 ?F), Max:39 ?C (102.2 ?F) Recent Labs 04/22/18 0120 GLUC 223* BUN 58* CREAT 1.45* NA 140 K 4.3 CHLOR 105 CO2 21* ALB 2.1* P 2.8 HB 7.4* HCT 23.0* WBC 8.44 MG 2.0 Vitamin and Mineral Labs in the past year:No results for input(s): CHROMIUM, COPPER, MANGANESE, SELENIUM, VITAMINA, VITB1, VITB2, VITB6, B12, METHYLMAL, VITD25, VITAMINE, VITAK, ZINC, TIBC, FE, JOHANNY in the last 8784 hours. MNT Billing Type: Re-assess/15 min 2 units SIGNATURE: Sari Weston RD [facility] PATIENT NAME: Lazaro Villafana DATE: April 22, 2018 TIME: 12:03 PM PAGER: [phone] PROCALCITONIN Collected: 04/22/2018 Status: F Source: [place] 11:51 AM [facility] REPOSITORY TYPE CODE TESTS RESULT OUT OF REFERENCE UNITS RANGE LAB PROCLT <0.09 ng/mL Procalcitonin High 1.73 Result Comment: For a guided interpretation of test results, please visit the Change in Procalcitonin Calculator, [email or web address]. Performed By: #### PROCAL #### [facility] [address], [place] [id number] URINALYSIS Collected: 04/22/2018 Status: F Source: [place] 10:58 AM [facility] REPOSITORY TYPE CODE TESTS RESULT OUT OF RANGE REFERENCE UNITS LAB UCOL Yellow Color Yellow LAB [facility] Clear Clarity Clear LAB UGLUC Negative mg/dL Glucose, Urine Negative LAB UBIL Negative Bilirubin, Urine Negative LAB UKET Negative Ketones, Urine Negative LAB USPG 1.005-1.030 Specific [place], Ur 1.009 LAB UHGB Negative Abnormal Hemoglobin/Blood, 2+ Alert Ur LAB UPH 4.5-8.0 pH 6.0 LAB UPROT Negative mg/dL Protein, Urine Negative LAB UUROB Normal Urobilinogen Normal LAB UNITR Negative Nitrites Negative LAB ULKEST Negative Leukest Negative LAB UCOM Comments SEE COMMENT Result Comment: Microscopic Examination Performed LAB UWBC 0-5 /HPF WBC 0-5 LAB URBC 0-3 /HPF Abnormal Alert RBC >25 LAB UMCOM Urine Ronaldo SEE COMMENT Comment Result Comment: N/A Performed By: #### UA #### [facility] [address] [place], [place] [address] PROTIME Collected: 04/22/2018 Status: F Source: [place] 10:48 AM [facility] REPOSITORY TYPE CODE TESTS RESULT OUT OF RANGE REFERENCE UNITS LAB PSEC 9.7-13.0 sec High PT Sec 14.9 LAB INR 0.9-1.3 High PT INR 1.4 Result Comment: Vitamin K Antagonist (VKA) Therapeutic Range: INR 2 to 3 (Target INR of 2.5) Note: For patients treated with VKA drugs, such as warfarin, the [place] [employer] 2012 Guideline recommends a therapeutic INR range of 2 to 3 (target INR of 2.5). This recommendation includes high-risk patients with antiphospholipid syndrome with previous arterial or venous thromboembolism, current-generation mechanical or bioprosthetic aortic heart valve replacement. Note: Patients with mechanical aortic valve replacement and additional risk factors for thromboembolic events (atrial fibrillation, previous thromboembolism, LV dysfunction, hypercoagulable conditions) or an older generation mechanical AVR (i.e., ball in-Cage) or any mechanical MVR should have a INR therapeutic range of 2.5 to 3.5 (target INR of 3). Serjio GH, et al. Chest 2012, 141:7S-47S Rashida RA, et al. [facility] 2017, 70: 252-289 Performed By: #### PT #### [facility] [address] [place], [place] [address] GASA + ALL Collected: 04/22/2018 Status: F Source: [place] FOR 8:55 AM [facility] RADIANCE USE ONLY REPOSITORY TYPE CODE TESTS RESULT OUT OF REFERENCE UNITS RANGE LAB PH 7.35-7.45 pH 7.39 LAB PCO2 34-46 mm Hg pCO2 36 LAB PO2 85-95 mm Hg pO2 98 High LAB BE mmol/L Base Excess NEG 3 LAB HCO3 22-26 mmol/L Bicarbonate 22 LAB CO2CT 22.0-28.0 mmol/L CO2 Content 23 LAB O2HB 95-98 % 96 Oxyhemoglobin, Art. LAB COHB 0-5.0 % 1.3 Carboxyhemoglobin ,Art LAB MHGB 0.4-1.5 % 0.7 Methemoglobin LAB TEMP C 37.0 Temperature, Body LAB PHTC 7.35-7.45 pH, Temp 7.39 Corrected LAB PCO2T 34-46 mm Hg pCO2, Temp 36 Correct LAB PO2T mm Hg pO2, Temp 98 Corrected LAB NAB 135-146 mmol/L 139 Sodium,Whole Bld LAB KWB 3.5-5.0 mmol/L Potassium, 4.0 Whole Bld LAB HGBB 13.0-17.0 g/dL 7.9 Low Hemoglobin,Total, ACL LAB HCTB 39.0-51.0 % Hematocrit, 25 Low ACL LAB IC 1.08-1.30 mmol/L Calcium, 1.16 Ion, WB LAB GLB 60-105 mg/dL 174 High Glucose,Whole Bld LAB LACT 0.5-2.2 mmol/L Lactate 1.0 LAB ABGCOM Blood Gas O2 Comm, Art Administration Result Comment: 40% Performed By: #### ALLBG #### [facility] [address] [place], [place] [address] CONSULT PROG Observed: 04/22/2018 Status: COMPLETED Source: [place] 8:48 AM [facility] REPOSITORY HNO ID: [id number] Author: Leena Li Service: Infectious Disease Author Type: Physician Type: Consult Progress Note Filed: 04/22/2018 3:07 PM Note Text: INFECTIOUS DISEASES PROGRESS NOTE Patient Name: Lazaro Villafana Account #: Data Unavailable Admission Date: 04/14/2018 Date of Evaluation: 04/22/2018 Time of Evaluation: 10:20 AM INTERVAL HPI: No acute events overnight. Ongoing known mediastinitis confirmed on repeat CT chest 04/21/18, no surgical intervention planned at this time. Day 8 cefepime, fluconazole, metronidazole; day 3 vancomycin. On TPN for nutrition, project 2 weeks of NPO status until esophageal perforation may have healed; plans for re-scoping next week with GI. Tracheal aspirate, blood cultures collected 04/20/18 so far no growth. Febrile to 102.2F overnight, stable leukocytosis. Break-through fevers on [id number] tylenol. Life Coach evaluating reported penicillin allergy. MEDICATIONS: Current hospital medications: octreotide 500 mcg in D5W 100 mL (SandoSTATIN) 50 mcg/hr INTRAVENOUS CONTINUOUS heparin 5,000 Units injection 5,000 Units SUBCUTANEOUS q 12 H fluconazole 400 mg in NaCl (iso-osmotic) 200 mL (DIFLUCAN) 400 mg INTRAVENOUS DAILY Parenteral Nutrition - Adult INTRAVENOUS ONCE TPN (2200 START) vancomycin 1.5 g in D5W 250 mL (VANCOCIN) 1.5 g INTRAVENOUS q 12 HR vancomycin dosing and monitoring per pharmacy OTHER As Directed insulin regular human injection (short acting) (NovoLIN R,HumuLIN R) SUBCUTANEOUS q 6 H potassium chloride iv piggyback 20 mEq/100 mL 20 mEq INTRAVENOUS PRN potassium chloride 20-80 mEq CUP 20-80 mEq ORAL/FEEDING TUBE PRN cefepime 2 g in D5W 100 mL MB+ (MAXIPIME) 2 g INTRAVENOUS q 8 HR magnesium sulfate in water 2 g in sterile water 50 ml 2 g INTRAVENOUS PRN sodium glycerophosphate 15 mmol in D5W 250 mL (GLYCOPHOS) 15 mmol INTRAVENOUS PRN sodium glycerophosphate 30 mmol in D5W 250 mL (GLYCOPHOS) 30 mmol INTRAVENOUS PRN sodium glycerophosphate 45 mmol in D5W 250 mL (GLYCOPHOS) 45 mmol INTRAVENOUS PRN insulin glargine 18 Units pen (long acting) (LANTUS SOLOSTAR, BASAGLAR KWIKPEN) 18 Units SUBCUTANEOUS AT BEDTIME dextrose 40 % 15 g 15 g ORAL PRN glucagon 1 mg injection (GLUCAGEN) 1 mg INTRAMUSCULAR PRN dextrose 50 % 12.5 g injection 12.5 g INTRAVENOUS PRN acetaminophen 650 mg suppository (TYLENOL) 650 mg RECTAL q 4 H PRN propofol infusion (DIPRIVAN) 5-60 mcg/kg/min INTRAVENOUS CONTINUOUS lactated ringers infusion 5-30 mL/hr INTRAVENOUS CONTINUOUS NaCl 0.9% 3-5 mL 3-5 mL INTRAVENOUS q 12 H fentaNYL 50 mcg/mL 25-50 mcg injection (SUBLIMAZE) 25-50 mcg INTRAVENOUS q 1 H PRN Chlorhexidine Gluconate 0.12 % 15 mL (PERIDEX) 15 mL ORAL QID metroNIDAZOLE 500 mg PREMIX piggyback (FLAGYL) 500 mg INTRAVENOUS q 8 H ipratropium-albuterol 3 mL nebulizer solution (DUONEB) 3 mL INHALATION q 4 H PRN albuterol 2.5 mg/0.5 mL 2.5 mg nebulizer solution (PROVENTIL) 2.5 mg INHALATION q 4 H PRN pantoprazole 40 mg injection (PROTONIX) 40 mg INTRAVENOUS BID AC (0600/1600) PHYSICAL EXAM: BP 102/57 Pulse 80 Temp 37.8 ?C (100.1 ?F) (Oral) Resp 18 Ht 177.8 cm (5' 10) Wt 108 kg (238 lb 1.6 oz) SpO2 99% BMI 34.16 kg/m? Lines: Mc[place] 04/14, Nontunnelled triple lumen 04/14 in R neck, ET tube 04/14, NG in L nare 04/14, L radial A-line 04/14 ?GEN: Patient is critically ill appearing. Sedated. SKIN: No lesions noted. EYES: PERRLA NOSE: Left Nare Ng tube in place. NECK: R nontunnelled triple lumen catheter with no overlying erythema, swelling or warmth. LUNGS: clear to auscultation, no wheezes, or crackles. HEART: ?Regular rate/rhythm, normal heart sounds, and no murmurs. ABDOMEN: Soft, epigastric tenderness, BS present. EXTREMITIES: Edema of hands b/l, no LE edema. NEURO: Sedated, not following commands. +1.2L in last 24 hours Labs: WBC 8.44, Hgb 7.4, Plt 88, Cr 1.45 Cr: 1.45 Micro and radiology personally reviewed 04/14/18: Quantiferon gold testing negative for TB 04/14/18: Blood cultures 04/19 no growth 04/14/18: MSSA nasal swab positive 04/17/18: MSSA nasal swab positive 04/17/18: Blood cultures 2/2 no growth 04/20/18: Blood cultures 2/2 no growth 04/20/18: Tracheal aspirate cultures no organisms on gram stain so far CT Chest 04/17/18: IMPRESSION: 1. ?NEW MULTIFOCAL CONSOLIDATIVE/GROUNDGLASS OPACITIES PREDOMINANTLY LEFT UPPER LOBE AND LINGULA, MAY REPRESENT MULTIFOCAL PNEUMONIA/ASPIRATION PNEUMONITIS, HEMORRHAGE OR ASYMMETRIC EDEMA. ?RADIOGRAPHIC FOLLOW-UP IS RECOMMENDED.. 2. ?BILATERAL LOWER LOBE AIRSPACE OPACITIES WITH VOLUME LOSS, RIGHT GREATER THAN LEFT, MOST LIKELY ATELECTASIS WITH POSSIBLE SUPERIMPOSED INFECTIOUS PROCESS. 3. ?LIMITED EVALUATION OF PREVIOUSLY SEEN MID ESOPHAGEAL CONTRAST EXTRAVASATION/TEAR. ?SMALL FOCI OF RIGHT-SIDED PNEUMOMEDIASTINUM, NOT SIGNIFICANTLY CHANGED. ?SMALL FOCI OF PNEUMOMEDIASTINUM HAVE DEVELOPED SUPERIORLY. ?THESE COULD BE FROM RECENT INTERVENTION. 4. SMALL BILATERAL PLEURAL COLLECTIONS HAVE SLIGHTLY INCREASED COMPARED TO PRIOR EXAM. ?THE AIR COMPONENTS OF THE RIGHT PLEURAL COLLECTION ARE NEW SINCE PREVIOUS EXAM, LIKELY RELATED TO ?INTERVAL PLACEMENT OF RIGHT APICAL CHEST TUBE. CXR 04/19/18: IMPRESSION: Lines, tubes, and devices: ?The endotracheal tube ends in the thoracic trachea. ?The nasogastric/orogastric tube can be followed as far as the stomach. ?The right thoracostomy tube is unchanged. ?The right internal jugular venous catheter ends in the superior vena cava. Lungs and pleura: ?Small right pleural effusion with associated atelectasis is present. ?Superimposed aspiration/pneumonia cannot be excluded. ?Mild left basilar atelectasis is seen. ?No large pneumothorax is seen. Cardiomediastinal silhouette: ?Stable cardiomediastinal silhouette. US upper extremities 04/20/18: IMPRESSION ? RIGHT SIDE - DEEP VEINS Technically limited study. Negative for acute deep vein thrombosis in vessels visualized. Unable to visualize the internal jugular vein due to IV lines and bandages. RIGHT SIDE - SUPERFICIAL VEINS Acute superficial thrombophlebitis in the cephalic vein antecubital fossa to wrist. Acute superficial thrombophlebitis in the basilic vein mid upper arm to wrist. Acute superficial thrombophlebitis in the median cubital vein at the antecubital fossa. ? LEFT SIDE - DEEP VEINS Spontaneous and respirophasic flow noted in the subclavian vein at proximal. CT Chest 04/21/18: IMPRESSION: 1. ?Unchanged right hydropneumothorax with right thoracostomy tube and associated right lower lobe atelectasis. ?Superimposed infection/aspiration cannot be excluded. 2. ?Groundglass opacities in the left upper lobe and lingula, likely infectious/inflammatory. ?Left apical consolidation has decreased since the prior exam. 3. ?Circumferential wall thickening of the esophagus. ?Known esophageal tear is not visualized on this examination. 4. ?Mediastinal lymphadenopathy, likely reactive. ? IMPRESSION / PLAN 52 yo M with a h/o cirrhosis, EtoH related, CKD, COPD and reported + PPD in the past. Currently no clinical or imaging evidence of active pulmonary TB. Presenting with hemorrhagic shock secondary to hematemesis/esophageal tear c/b pneumomediastinum; no surgical intervention planned at this time. Persistent fevers with known right lung opacities. Stable, neutrophil-predominant leukocytosis. Superficial upper extremity clot burden unlikely to explain fevers to 102.2F in last 24 hours. Potential sources include urinary catheter infection, central venous catheter related infection, progression of known mediastinitis, or drug fever. ? Plan: - continue vancomycin, cefepime, metronidazole, fluconazole as ordered for now - remove existing mcclain, replace with new mcclain and draw UA/Urine cultures off of new mcclain - depending on results of allergy evaluation, may switch antibiotics today to address possibility of drug fever Will discuss with attending, Perla Delgado PGY4 [facility] STAFF PHYSICIAN NOTE OF PERSONAL INVOLVEMENT IN CARE Events reviewed. Patient examined. Findings as outlined in the fellow's note above. Jang elements verified. ?Relevant lab data, microbiology and imaging data reviewed. Relevant images personally reviewed. ?Agree with assessment and plan as outlined in the fellow's note above. I was physically present for the critical portions of the service provided by the ID team. The management plan reflects my input. ?Marguerite Li MD Staff, Department of Infectious Disease Pager: [phone] PROGRESS Observed: 04/22/2018 Status: COMPLETED Source: [place] 8:37 AM [facility] REPOSITORY HNO ID: [id number] Author: Denis Jaime Service: Critical Care Author Type: Resident Type: Progress Notes Filed: 04/22/2018 11:42 AM Note Text: SURGICAL INTENSIVE CARE UNIT PROGRESS NOTE SERVICE DATE: April 22, 2018 SERVICE TIME: 8:37 AM Subjective Mr.?Howard Villafana is a 52-year-old male with PMHx type II DM, poorly controlled HTN, CKD, COPD, tobacco smoker 2-3 PPD, alcohol use disorder with recent diagnosis of cirrhosis was transferred from [facility] with an esophageal perforation seen on EGD. Patient initially presented with hematemesis and melena with accompanying dizziness and shortness of breath. Admitted to the SICU for surgical evaluation and hemodynamic monitoring. Objective VITAL SIGNS Temp: 37.8 ?C (100.1 ?F) Pulse: 80 BP: 102/57 MAP Non Invasive (Mean Arterial Pressure): 75 Resp: 18 SpO2: 99 % Not applicable Current Facility-Administered Medications: octreotide 500 mcg in D5W 100 mL (SandoSTATIN) 50 mcg/hr INTRAVENOUS CONTINUOUS heparin 5,000 Units injection 5,000 Units SUBCUTANEOUS q 12 H fluconazole 400 mg in NaCl (iso-osmotic) 200 mL (DIFLUCAN) 400 mg INTRAVENOUS DAILY Parenteral Nutrition - Adult INTRAVENOUS ONCE TPN (2200 START) vancomycin 1.5 g in D5W 250 mL (VANCOCIN) 1.5 g INTRAVENOUS q 12 HR vancomycin dosing and monitoring per pharmacy OTHER As Directed insulin regular human injection (short acting) (NovoLIN R,HumuLIN R) SUBCUTANEOUS q 6 H potassium chloride iv piggyback 20 mEq/100 mL 20 mEq INTRAVENOUS PRN Or potassium chloride 20-80 mEq CUP 20-80 mEq ORAL/FEEDING TUBE PRN cefepime 2 g in D5W 100 mL MB+ (MAXIPIME) 2 g INTRAVENOUS q 8 HR magnesium sulfate in water 2 g in sterile water 50 ml 2 g INTRAVENOUS PRN sodium glycerophosphate 15 mmol in D5W 250 mL (GLYCOPHOS) 15 mmol INTRAVENOUS PRN Or sodium glycerophosphate 30 mmol in D5W 250 mL (GLYCOPHOS) 30 mmol INTRAVENOUS PRN Or sodium glycerophosphate 45 mmol in D5W 250 mL (GLYCOPHOS) 45 mmol INTRAVENOUS PRN insulin glargine 18 Units pen (long acting) (LANTUS SOLOSTAR, BASAGLAR KWIKPEN) 18 Units SUBCUTANEOUS AT BEDTIME dextrose 40 % 15 g 15 g ORAL PRN Or glucagon 1 mg injection (GLUCAGEN) 1 mg INTRAMUSCULAR PRN Or dextrose 50 % 12.5 g injection 12.5 g INTRAVENOUS PRN acetaminophen 650 mg suppository (TYLENOL) 650 mg RECTAL q 4 H PRN propofol infusion (DIPRIVAN) 5-60 mcg/kg/min INTRAVENOUS CONTINUOUS lactated ringers infusion 5-30 mL/hr INTRAVENOUS CONTINUOUS NaCl 0.9% 3-5 mL 3-5 mL INTRAVENOUS q 12 H fentaNYL 50 mcg/mL 25-50 mcg injection (SUBLIMAZE) 25-50 mcg INTRAVENOUS q 1 H PRN Chlorhexidine Gluconate 0.12 % 15 mL (PERIDEX) 15 mL ORAL QID metroNIDAZOLE 500 mg PREMIX piggyback (FLAGYL) 500 mg INTRAVENOUS q 8 H ipratropium-albuterol 3 mL nebulizer solution (DUONEB) 3 mL INHALATION q 4 H PRN albuterol 2.5 mg/0.5 mL 2.5 mg nebulizer solution (PROVENTIL) 2.5 mg INHALATION q 4 H PRN pantoprazole 40 mg injection (PROTONIX) 40 mg INTRAVENOUS BID AC (0600/1600) Cardiovascular: Regular rhythm Abdomen: Soft and Nontender Extremities: Mild pedal edema Neuro: Sedated Intake/Output Summary (Last 24 hours) at 04/22/18 0837 Last data filed at 04/22/18 0700 Gross per 24 hour Intake 4057 ml Output 2530 ml Net 1527 ml Current Weight: Weight: 108 kg (238 lb 1.6 oz) Admission Weight: Weight: 106.1 kg (233 lb 14.5 oz) RESPIRATORY Mechanical Ventilation: Vent Mode: PSV Freq (bpm): 18 PS (cmH20): 5 PEEP / CPAP (cmH20): 5 FIO2 (%): 40 Recent Labs 04/21/18 1252 04/20/18 0144 PH 7.36 7.38 PO2 104* 73* PCO2 40 36 BE NEG 3 NEG 4 HCO3 22 21* LACT 1.2 1.1 CXR Findings: Right effusion and overlying opacity not significantly changed. No pneumothorax. INFUSION(S): Propofol Patient Lines Assessed: Lines, Drains, and Airways Line Arterial Line 04/14/18 2320 Arterial Line Left Radial 7 days Central Line Triple Lumen 04/14/18 2319 Non-tunneled Right Neck 7 days Peripheral 04/14/18 2344 Left Antecubital 18 Gauge 7 days Drain GI Feed/Drain 04/14/182318 Nasogastric Left Naris 16 Fr 7 days Indwelling Urinary Catheter 04/14/182113 Admission to Hospital [facility] 7 days Chest Tube 04/16/18 2100 Right 28 Fr 5 days Airway Airway Endotracheal Tube 04/14/182114 7 days Diagnostic tests reviewed for today's visit: Most recent labs and imaging results. Assessment/Plan Neuro:? -- tachypnea requiring intubation at OSH -- On propofol gtt. -- Fentanyl ?CV:? -- Goal MAP >65 - CXR today- Right effusion and overlying opacity not significantly changed. No pneumothorax. ? Pulm:??Hx of COPD. Intubated. --Continue home bronchodilators -- duonebs prn -- Chest tube output 100cc over 24 hrs - will maintain wall suction. - Bronchoscopy with cultures sent - Continue RT treatments - CT chest WO IV contrast today - Will attempt to extubate this AM ? Renal:??(baseline Cr ~1.2 from 02/2018) -- LIANE; most likely pre-renal.?Cr 1.45 --Monitor Cr and I/Os --[facility]ain ? GI:?Likely partial thickness esophageal perforation. Presented from OSH on 04/14 with hematemesis, melena dizziness and SOB. EtOH cirrhosis with portal HTN, grade 2 esophageal varices -- mid distal esophageal tear - not amenable to esophageal stenting --Pantoprazole for GI ppx and ocreotide gtt for at least 7 days (ending tomorrow) --NPO, TPN --NGT positioned by GI - DO NOT MANIPULATE BLINDLY -- potential mediastinitis -- General surgery - continue NPO -- Thoracic surgery - potential re-scope next week ? Heme:? -- Hgb 7.4 -- thrombocytopenia. Will watch for signs of bleeding and need?for further transfusion --Transfuse to keep Hgb >7 - SQH ? Fluid/Electrolyte/Nutrition: --NPO --Replete lytes as one time dosing -- TPN ? Endo:?Hx of IDDM, HgbA1c 8.2. Glucose this am 174 - BG goal 130-180 - lantus Sliding scale insulin -- Nutrition will adjust lantus in TF ? ID:?Esohageal tear and perforation. aztreonam and flagyl at OSH -Intermittent low grade fevers - MSSA PCR positive - MRSA PCR negative -Started Vancomycin per ID recs to cover for GPC -Concern for mediastinitisis - empiric coverage with cefepime, fluconazole, flagyl, vanco - end date in 1 month - Increased fluconazole to 400mg daily - allergy consult for skin test ? - ID following, appreciate recs ? PPX:? - GI ppx - pantoprazole - VTE ppx - held due to thrommbocytopenia ? Medication and Non-Pharmacologic VTE Prophylaxis/Anticoagulants Anticoagulant AND Antiplatelet Medications Start Dose Route Frequency Ordered Stop 04/21/18 0930 heparin 5,000 Units injection 5,000 Units SUBCUTANEOUS EVERY 12 HOURS 04/21/18 0901 -- 04/14/18 2100 pneumatic compression stockings ([place], [place]) 04/14/18 2100 activity - mobilize patient ([place]) VTE Prophylaxis: VTE prophylaxis appropriate SIGNATURE: Denis Jaime MD PATIENT NAME: Lazaro Villafana DATE: April 22, 2018 TIME: 8:37 AM PAGER/CONTACT #: [id number] CONSULT PROG Observed: 04/22/2018 Status: COMPLETED Source: [place] 5:[address] [facility] REPOSITORY HNO ID: [id number] Author: Francois Gann Service: Thoracic Surgery Author Type: Resident Type: Consult Progress Note Filed: 04/22/2018 7:26 AM Note Text: [facility] THORAC[facility] SURGERY CONSULT PROGRESS NOTE Lazaro Villafana [id number] PRIMARY SERVICE: HOSPITAL DAY: # 8 INTERVAL HISTORY No acute events overnight. Continues to be intubated. CT output 100cc. PHYSICAL EXAM BP 114/58 Pulse 90 Temp (!) 38.2 ?C (100.8 ?F) (Oral) Resp 21 Ht 177.8 cm (5' 10) Wt 108 kg (238 lb 1.6 oz) SpO2 95% BMI 34.16 kg/m? Intake/Output Summary (Last 24 hours) at 04/22/18 0546 Last data filed at 04/22/18 0500 Gross per 24 hour Intake 5531 ml Output 2830 ml Net 2701 ml Constitutional: intubated, sedated HEENT: intubated Resp: VENT FiO2 40, PEEP 10;?R chest tube in place and on suction, no air leak, sanguineous output Cardiovascular: Cardiac: RR Integumentary: Warm Musculoskeletal: No deformities Neurological/Psychiatric: intubated Additional systems reviewed: No additional systems reviewed ? DATA Recent Labs 04/22/18 01204/21/18 0206 04/20/18 1338 WBC 8.44 9.75 10.03 HB 7.4* 7.7* 7.9* HCT 23.0* 24.5* 24.2* PLT 88* 82* 66* Recent Labs 04/22/18 01204/21/18 0206 04/20/18 0134 NA 140 141 143 K 4.3 4.2 4.1 CO2 21* 21* 20* BUN 58* 61* 57* CREAT 1.45* 1.57* 1.50* GLUC 223* 247* 219* MG 2.0 2.1 2.0 IMAGING I personally reviewed: CXR ASSESSMENT AND PLAN 52 year old male with multiple medical comorbidities now with likely partial thickness esophageal perforation, putatively from S-B tube placement at OSH. It is unlikely that this is the etiology of his massive hemoptysis, reportedly there were multiple varices that, in the background of cirrhosis is the likely etiology of his bleed. While he is requiring high doses of vasopressors, it is unlikely that the source of his shock is purely from his esophageal perforation given his lack of pleural effusion or free flowing contrast. 04/15 EGD showed 5cm esophageal laceration without active bleeding. 04/16 Right chest tube placed for effusion. ? Plan - STRICT NPO for at least 2 weeks - continue TPN for the time being - Do NOT manipulate NGT blindly - recommend repeat EGD next week, please discuss with GI ? Francois Gann MD,PhD Pager [phone] 04/22/2018 5:46 AM PROGRESS Observed: 04/22/2018 Status: COMPLETED Source: [place] 5:12 AM [facility] REPOSITORY HNO ID: [id number] Author: Villa Thomas Service: General Surgery Author Type: Resident Type: Progress Notes Filed: 04/22/2018 7:49 AM Note Text: GENERAL SURGERY PROGRESS NOTE ASSESSMENT AND PLAN 52 year old male with PMHx type II DM, poorly controlled HTN, CKD, COPD, tobacco smoker 2-3 PPD, alcohol use disorder with recent diagnosis of cirrhosis w/ esophageal varices who presents on transfer from OSH with hematemesis s/p EGD at OSH c/b esophageal laceration that appears to be contained; MELD > 20 - Continue strict NPO - No surgical intervention planned - Follow Thoracic Surgery recommendations - Continue supportive/SICU care - trend labs Plan to be discussed further with staff *After 6pm and on weekends please page general surgery director of early childhood education [phone]* SUBJECTIVE/INTERVAL EVENTS Remains febrile (39 overnight), no leukocytosis, adequate UOP Hydropneumothorax unchanged on yesterday's CT chest - RLL possibly representing aspiration/infection CT output 100 cc/24hrs NGT output 200 cc OBJECTIVE BP 114/58 Pulse 90 Temp (!) 38.2 ?C (100.8 ?F) (Oral) Resp 21 Ht 177.8 cm (5' 10) Wt 107.8 kg (237 lb 10.5 oz) SpO2 95% BMI 34.10 kg/m? Intake/Output Summary (Last 24 hours) at 04/21/18 0659 Last data filed at 04/21/18 0600 Gross per 24 hour Intake 3524 ml Output 2460 ml Net 1064 ml General: sedated, ill appearing CV: RRR Pulm: ventilator Neck: no subQ emphysema/crepitus appreciated Abdomen: soft, non-distended Neuro: limited exam 2/2 sedation Labs/Imaging: CBC, BMP, MG, PHOS Recent Labs 04/22/18 0120 04/21/18 0206 04/20/18 1338 04/20/18 0134 04/19/18 0330 WBC 8.44 9.75 10.03 9.01 6.66 HB 7.4* 7.7* 7.9* 8.0* 8.2* HCT 23.0* 24.5* 24.2* 24.9* 25.2* PLT 88* 82* 66* 74* 51* NA 140 141 -- 143 143 K 4.3 4.2 -- 4.1 4.0 CHLOR 105 107* -- 111* 111* CO2 21* 21* -- 20* 20* BUN 58* 61* -- 57* 58* CREAT 1.45* 1.57* -- 1.50* 1.47* GLUC 223* 247* -- 219* 159* CA 7.5* 7.8* -- 7.7* 7.4* MG 2.0 2.1 -- 2.0 1.9 P 2.8 2.4* -- 2.7 2.0* Liver Function, Amylase, AND Lipase Recent Labs 04/22/18 0120 04/21/18 1252 04/21/18 0206 04/20/18 0144 04/20/18 0134 04/19/18 0829 04/19/18 0411 04/19/18 0330 TPROT 5.8* -- 5.6* -- 5.1* -- -- 5.3* ALB 2.1* -- 2.2* -- 2.1* -- -- 2.1* ALT 18 -- 17 -- 14 -- -- 16 AST 51* -- 45* -- 37 -- -- 30 ALKPHOS 72 -- 65 -- 62 -- -- 56 TBILI 0.7 -- 0.8 -- 0.6 -- -- 0.6 LACT -- 1.2 -- 1.1 -- 0.9 1.0 -- Coags Recent Labs 04/18/18 0002 04/17/18 0019 04/16/18 0031 04/15/18 0500 04/15/18 0345 APTT 31.7 32.1 31.6 -- Unable to assay. Specimen improperly collected/handled. INR 1.3 1.3 1.4* 1.3 Unable to assay. Specimen improperly collected/handled. Active Hospital Problems Diagnosis Date Noted - Secondary thrombocytopenia 04/20/2018 - Acute post-operative pain 04/20/2018 - Acute respiratory insufficiency 04/20/2018 - Consolidation of right lower lobe of lung (HCC) 04/20/2018 - Secondary esophageal varices without bleeding (HCC) 04/20/2018 - Tobacco abuse 04/20/2018 - Acute blood loss anemia 04/20/2018 - Mediastinitis 04/20/2018 - Fever 04/20/2018 - Mild protein-calorie malnutrition (HCC) 04/17/2018 - Esophageal perforation 04/14/2018 - Alcoholic cirrhosis (HCC) 04/14/2018 - Hyperglycemia 04/14/2018 - COPD (chronic obstructive pulmonary disease) (HCC) 04/14/2018 Chronic Villa Thomas MD PGY-1, General Surgery Acute Care Surgery: [id number] XR CHEST 1V FRONTAL Observed: 04/22/2018 Status: F Source: [facility] 3:55 AM [facility] REPOSITORY * * *Final Report* * * DATE OF EXAM: Apr 22 2018 3:55AM TER[facility] 5376 - XR CHEST 1V FRONTAL PORT / PROCEDURE REASON: Acute respiratory illness * * * * Physician Interpretation * * * * CHEST RADIOGRAPH (PORTABLE SINGLE VIEW AP) Exam Date/Time: 04/22/2018 3:55 AM Indications: Acute respiratory illness MQ: [id number]_5 Comparison: 1 day earlier RESULTS: See Impression. IMPRESSION: Lines, Tubes, and Devices: Stable support lines and tubes. Lungs and Pleura: Right effusion and overlying opacity not significantly changed. No pneumothorax. Cardiomediastinal silhouette: Stable cardiac silhouette. Steel Turner: PSCAlexys Transcribe Date/Time: Apr 22 2018 7:19A Dictated by : JUANCARLOS AHUMADA MD This examination was interpreted and the report reviewed and electronically signed by: JUANCARLOS AHUMADA MD on Apr 22 2018 7:20AM EST [id number] Collected: 04/22/2018 Status: F Source: [place] 1:20 AM [facility] REPOSITORY TYPE CODE TESTS RESULT OUT OF REFERENCE UNITS RANGE LAB WBC 3.70-11.00 k/uL WBC 8.44 LAB RBC 4.20-6.00 m/uL Low RBC 2.54 LAB HGB 13.0-17.0 g/dL Low Hemoglobin 7.4 LAB HCT 39.0-51.0 % Low Hematocrit 23.0 LAB MCV 80.0-100.0 fL MCV 90.6 LAB MCH 26.0-34.0 pG MCH 29.1 LAB MCHC 30.5-36.0 g/dL MCHC 32.2 LAB RDWCV 11.5-15.0 % RDW-CV High 16.3 LAB PLTCT 150-400 k/uL Low Platelet Count 88 Result Comment: No clot detected. LAB MPV 9.0-12.7 fL MPV 11.1 LAB ABSNUC <0.01 k/uL Absolute nRBC <0.01 Performed By: #### CBC, CMP, MG1, PHOS, VANCRA #### [facility] [address] [place] [address] COMP METABOLIC PANEL Collected: 04/22/2018 Status: F Source: [place] 1:[address] [facility] REPOSITORY TYPE CODE TESTS RESULT OUT OF REFERENCE UNITS RANGE LAB TP 6.3-8.0 g/dL Low Protein, Total 5.8 LAB ALB 3.9-4.9 g/dL Low Albumin 2.1 LAB CA 8.5-10.2 mg/dL Low Calcium, Total 7.5 LAB TBIL 0.2-1.3 mg/dL Bilirubin, Total 0.7 LAB ALKP 38-113 U/L Alkaline Phosphatase 72 LAB AST 14-40 U/L AST High 51 LAB GLU 74-99 mg/dL Glucose High 223 Result Comment: The [place] [employer] (ADA) provides guidance for cutoff values for fasting glucose and random glucose. The ADA defines fasting as no caloric intake for at least 8 hours. Fas ting plasma glucose results between 100 to 125 mg/dL indicate increased risk for diabetes (prediabetes). Fasting plasma glucose results greater than or equal to 126 mg/dL meet the criteria for diagnosis of diabetes. In the absence of unequivocal hyperglycemia, results should be confirmed by repeat testing. In a patient with classic symptoms of hyperglycemia or hyperglycemic crisis, random plasma glucose results greater than or equal to 200 mg/dL meet the criteria for diagnosis of diabetes. Reference: Standards of Medical Care in Diabetes 2016, [place] [employer]. Diabetes Care. 2016.39(Suppl 1). LAB BUN 9-24 mg/dL BUN High 58 LAB CRET 0.73-1.22 mg/dL Creatinine High 1.45 LAB NA 136-144 mmol/L Sodium 140 LAB K 3.7-5.1 mmol/L Potassium 4.3 LAB CL 97-105 mmol/L Chloride 105 LAB CO2 22-30 mmol/L Low CO2 21 LAB AGAP 9-18 mmol/L Anion Gap 14 LAB ALT 10-54 U/L ALT 18 LAB GFRAA eGFR- Amer. >60 LAB GFRNAA . eGFR-All Other Races 52 Result Comment: eGFR (Estimated GFR) Units of measure: mL/min/1.73 meters squared eGFR is derived from the reexpressed MDRD Study equation using the following parameters: serum creatinine, age, gender and race. The creatinine assay has been calibrated to be traceable to IDMS. An eGFR <60 mL/min/1.73m2 for >3 months is consistent with chronic kidney disease. Refer to KDOQI guidelines for clinical interpretation. In patients with unstable renal function, e.g. those with acute kidney injury, the eGFR may not accurately reflect actual GFR. Performed By: #### CBC, CMP, MG1, PHOS, VANCRA #### [facility] [address] [place] [address] MAGNESIUM Collected: 04/22/2018 Status: F Source: [place] 1:20 AM [facility] REPOSITORY TYPE CODE TESTS RESULT OUT OF REFERENCE UNITS RANGE LAB MG 1.7-2.3 mg/dL Magnesium 2.0 Performed By: #### CBC, CMP, MG1, PHOS, VANCRA #### [facility] [address] [address] PHOSPHORUS Collected: 04/22/2018 Status: F Source: [place] 1:20 AM [facility] REPOSITORY TYPE CODE TESTS RESULT OUT OF REFERENCE UNITS RANGE LAB PHOS 2.7-4.8 mg/dL Phosphorus 2.8 Performed By: #### CBC, CMP, MG1, PHOS, VANCRA #### [facility] [address] [place] [address] VANCOMYCIN Collected: 04/22/2018 Status: F Source: [place] 1:20 AM [facility] REPOSITORY TYPE CODE TESTS RESULT OUT OF REFERENCE UNITS RANGE LAB VANCRA 5.0-20.0 ug/mL High Vancomycin 24.3 Result Comment: Reference ranges and high/low indicator flags are provided as general guidelines only. The treating physician must determine appropriate target levels/dosing based on the specific clinical situation. Performed By: #### CBC, CMP, MG1, PHOS, VANCRA #### [facility] [address] [place], [place] [address] TYPE AND SCREEN Collected: 04/22/2018 Status: F Source: [place] 1:20 [facility] REPOSITORY TYPE CODE TESTS RESULT OUT OF REFERENCE UNITS RANGE LAB %ABR B ABO/RH(D) POSITIVE LAB % Antibody NEG Screen Performed By: #### TSCR #### [facility] [address] [place], [place] [address] FUNGITELL B-D-GLUCAN Collected: 04/22/2018 Status: F Source: [place] 1:20 [facility] REPOSITORY TYPE CODE TESTS RESULT OUT OF REFERENCE UNITS RANGE LAB BDASAY Negative Fungitell Assay Negative Result Comment: (NOTE) INTERPRETIVE INFORMATION: (1,3)-dxvf-O-chqaku (Fungitell) Less than 31 pg/mL ................... Negative 31-59 pg/mL .......................... Negative 60-79 pg/mL .......................... Indeterminate Greater than or equal to 80 pg/mL .... Positive The Fungitell test is indicated for presumptive diagnosis of fungal infection and should be used in conjunction with other diagnostic procedures. This test does not detect certain fungal species such as Cryptococcus, which produce very low levels of (1,3)-hrjh-G-eizibw. This test will not detect the zygomycetes, such as Absidia, Mucor, and Rhizopus, which are not known to produce (1,3)-otuu-C-pcpurq. In addition, the yeast phase of Blastomyces dermatitidis produces little (1,3)-bvll-Q-omvdel and may not be detected by the assay. Performed by [facility], [address], [place] [id number] [email or web address], Tano Perez MD, Lab. Director LAB BDCMNT pg/mL Fungitell Comments <31 Performed By: #### BDGLUC #### [facility] [address] [place] [id number] [phone] THERAPY NT Observed: 04/21/2018 Status: COMPLETED Source: [place] 4:19 PM [facility] REPOSITORY HNO ID: [id number] Author: Ekaterina (Pt) Sagrario Service: Physical Therapy Author Type: Physical Therapist Type: Therapy (PT/OT/Speech/Resp) Filed: 04/21/2018 4:19 PM Note Text: PHYSICAL THERAPY MISSED VISIT SERVICE DATE: 04/21/2018 SERVICE TIME: 1433 to 1433 ROOM: [place] [address] Attempted Evaluation. Patient not able to tolerate sedation trials for participation with PT. Will reattempt as able. SIGNATURE: Ekaterina Zabala PT PATIENT NAME: Lazaro Villafana DATE: April 21, 2018 TIME: 4:19 PM PROGRESS Observed: 04/21/2018 Status: COMPLETED Source: [place] 3:43 PM [facility] REPOSITORY HNO ID: [id number] Author: Aidan Alas Service: Critical Care Author Type: Anesthesiologist Type: Progress Notes Filed: 04/21/2018 3:59 PM Note Text: ICU STAFF -- AIDAN ALAS REASON FOR ICU ADMISSION AND PERTINENT RECENT HISTORY Critically ill 52 year old male presented to OSH on 04/14/18 with hematemesis which was temporized with a Sengstaken-Tony tube. A subsequent EGD showed esophageal varices without active bleeding, old blood in stomach, normal duodenum, and a large clot over a esophageal perforation/tear [linear, partial thickness esophageal laceration from 31-37 cm from incisors]. He was transferred to [facility] on 04/14/18 for further management. ? Thoracic surgery is following the patient and is planning conservative management given that CT scan shows partial thickness esophageal tear without active mediastinal or pleural extravasation. ? Patient is s/p EGD on 04/15/18 which showed evidence of hematin and blood clots in both esophagus and stomach; deep esophageal tear previously described noted ~5 cm in length. Defer placement of esophageal stent. ? Thoracic surgery placed R sided CT on 04/17 given changing ventilator requirements. There was approximately 400 cc of serosanguinous fluid drained with significant improvement in oxygenation requirements. There was not significant change in the imaging. ? Notable PMHx: type II DM, poorly controlled HTN, CKD, COPD, tobacco smoker 2-3 PPD, alcohol use disorder with a recent diagnosis of cirrhosis, reported + PPD in the past but currently no clinical or imaging evidence of active pulmonary TB Subjective: fevers overnight continue Objective: Physical exam: BP 178/77 Pulse 87 Temp 37.8 ?C (100.1 ?F) (Oral) Resp (!) 31 Ht 177.8 cm (5' 10) Wt 107.8 kg (237 lb 10.5 oz) SpO2 98% BMI 34.10 kg/m? Weight change: -0.2 kg (-7.1 oz) 1. HEENT: normocephalic 2. Neck: midline trachea 3. Lungs: bilateral chest rise; R CT in place (no leak noted) 4. Heart: S1:+ S2:+ 5. Abdomen: soft 6. Extremities: 1+ edema; 1+ edema RUE 7. Skin: WWP 8. Neurological: sedated on propofol Mechanical ventilation: Mode: PSV FiO2: 40 Vt(ml): 653 PEEP(cm):10 Lab: CBC, Coags, BMP, Mg, Phos Recent Labs 04/21/18 1252 04/21/18 0206 04/20/18 1338 04/20/18 0144 04/20/18 0134 04/19/18 0829 04/19/18 0330 WBC -- 9.75 10.03 -- 9.01 -- -- 6.66 HB -- 7.7* 7.9* -- 8.0* -- -- 8.2* HCT -- 24.5* 24.2* -- 24.9* -- -- 25.2* PLT -- 82* 66* -- 74* -- -- 51* NA -- 141 -- -- 143 -- -- 143 K -- 4.2 -- -- 4.1 -- -- 4.0 CHLOR -- 107* -- -- 111* -- -- 111* CO2 -- 21* -- -- 20* -- -- 20* BUN -- 61* -- -- 57* -- -- 58* CREAT -- 1.57* -- -- 1.50* -- -- 1.47* GLUC -- 247* -- -- 219* -- -- 159* IC 1.16 -- -- 1.20 -- 1.13 < > -- CA -- 7.8* -- -- 7.7* -- -- 7.4* MG -- 2.1 -- -- 2.0 -- -- 1.9 P -- 2.4* -- -- 2.7 -- -- 2.0* < > = values in this interval not displayed. Liver Function, Amylase, AND Lipase Recent Labs 04/21/18 1252 04/21/18 0206 04/20/18 0144 04/20/18 0134 04/19/18 0829 04/19/18 0330 TPROT -- 5.6* -- 5.1* -- -- 5.3* ALB -- 2.2* -- 2.1* -- -- 2.1* ALT -- 17 -- 14 -- -- 16 AST -- 45* -- 37 -- -- 30 ALKPHOS -- 65 -- 62 -- -- 56 TBILI -- 0.8 -- 0.6 -- -- 0.6 LACT 1.2 -- 1.1 -- 0.9 < > -- < > = values in this interval not displayed. ABGs Recent Labs 04/21/18 1252 04/20/18 0144 04/19/18 0829 PH 7.36 7.38 7.41 PCO2 40 36 34 PO2 104* 73* 110* BE NEG 3 NEG 4 NEG 2 HCO3 22 21* 21* CO2CT 23 22 22 O2HB 96 93* 97 COHB 0.9 1.7 1.3 MHGB 0.7 0.0* 0.6 TEMP 37.0 37.0 37.0 PHTC 7.36 7.38 7.41 PCO2T 40 36 34 PO2T 104 73 110 CXR: R sided opacity - effusion vs collapse; hilar congestion; low lung volumes Fluids: Intake/Output Summary (Last 24 hours) at 04/21/18 0659 Last data filed at 04/21/18 0600 Gross per 24 hour Intake 3524 ml Output 2460 ml Net 1064 ml Daily Assessments: Restraints- yes Central Access- yes Sedation interruption- yes Mcclain catheter required for clinical management- yes Assessment: Critically ill Patient Active Hospital Problem List: Hyperglycemia (04/14/2018) Alcoholic cirrhosis (HCC) (04/14/2018) COPD (chronic obstructive pulmonary disease) (HCC) (04/14/2018) Esophageal perforation (04/14/2018) Mild protein-calorie malnutrition (HCC) (04/17/2018) Secondary thrombocytopenia (04/20/2018) Acute post-operative pain (04/20/2018) Acute respiratory insufficiency (04/20/2018) Consolidation of right lower lobe of lung (HCC) (04/20/2018) Secondary esophageal varices without bleeding (HCC) (04/20/2018) Tobacco abuse (04/20/2018) Acute blood loss anemia (04/20/2018) Mediastinitis (04/20/2018) Fever (04/20/2018) Plan: Fever workup includes CT scan today to look for an unexpected source. Consider DVT scan, BCx, UA. Otherwise, continue broad spectrum ABx. Fortunately, WBC is down trending. PLT is up trending - start SQH Octreotide off tomorrow AM - 7 days completed Hyperglycemia - increase insulin in TPN Consider furosemide administration tomorrow Consult with thoracic surgery and GI for possible extubation tomorrow if they can tolerate respiratory hygiene and coughing. Prophylaxis: DVT: SQH/SCDs Stress gastritis: pantoprazole BID I have personally examined the patient today for an aggregate of 41 min of critical care time. I have examined the patient and reviewed lab data and x-rays. I have evaluated the hemodynamic and respiratory data, ECG, prescribed IV fluids, adjusted mechanical ventilation, assessed antibiotic therapy, prescribed nutritional and/or metabolic support. This care required my full attention and direct personal management in prevention of imminent clinical deterioration. Thank you for letting me follow this patient. SIGNATURE: Aidan Alas MD DATE: April 21, 2018 TIME: 3:44 PM CONSULT Observed: 04/21/2018 Status: COMPLETED Source: [place] 3:[address] [facility] REPOSITORY O ID: [id number] Author: Tana Ramey Service: Allergy Author Type: Physician Type: Consults Filed: 04/22/2018 9:27 PM Note Text: CONSULT HISTORY AND PHYSICAL ALLERGY AND CLINICAL IMMUNOLOGY PLEASE DO NOT REMOVE FROM THE CHART OR MODIFY PRINTED COPY Time of Service: 3:25 PM Consulting Service: SICU Requesting Provider: García Bah Opinion/advice regarding: Penicillin allergy HPI: This is a 52 year old male with PMH of cirrhosis (EtoH related), CKD and COPD, currently admitted for hemorrhagic shock secondary to hematemesis/esophageal tear c/b pneumomediastinum. We are consulted as the team would like to clarify his history of penicillin allergy and may change the current antibiotic management to Zosyn. The patient is intubated and sedated and unable to provide a history. His emergency contact ( - Sushila Villafana) was not reachable at both mobile nor home phone numbers. Per chart review, the patient has tolerated other beta-lactam antibiotics including cefepime (04/14-current). Collateral Allergic History Allergic rhinitis: unable to confirm/deny what is documented in the chart Asthma: unable to obtain confirm/deny what is documented in the chart Eczema: unable to obtain confirm/deny what is documented in the chart Urticaria: unable to obtain confirm/deny what is documented in the chart Angioedema: unable to obtain confirm/deny what is documented in the chart Radiocontrast dye reaction: unable to obtain confirm/deny what is documented in the chart Other Drug allergies: unable to obtain confirm/deny what is documented in the chart Drug intolerances: unable to obtain confirm/deny what is documented in the chart Review of Systems: Unable to perform review of systems as patient is intubated and sedated. PAST MEDICAL HISTORY Diagnosis Date - Cirrhosis (HCC) - COPD (chronic obstructive pulmonary disease) (HCC) - Diabetes (HCC) - ETOH abuse - Hypertension No past surgical history on file. ALLERGIES Allergen Reactions - Ciprofloxacin Unknown - Penicillin Unknown Tolerating cefepime Current hospital medications: heparin 5,000 Units injection 5,000 Units SUBCUTANEOUS q 12 H [START ON 04/22/2018] fluconazole 400 mg in NaCl (iso-osmotic) 200 mL (DIFLUCAN) 400 mg INTRAVENOUS DAILY Parenteral Nutrition - Adult INTRAVENOUS ONCE TPN (2200 START) Parenteral Nutrition - Adult INTRAVENOUS ONCE TPN (2200 START) vancomycin 1.5 g in D5W 250 mL (VANCOCIN) 1.5 g INTRAVENOUS q 12 HR vancomycin dosing and monitoring per pharmacy OTHER As Directed insulin regular human injection (short acting) (NovoLIN R,HumuLIN R) SUBCUTANEOUS q 6 H potassium chloride iv piggyback 20 mEq/100 mL 20 mEq INTRAVENOUS PRN potassium chloride 20-80 mEq CUP 20-80 mEq ORAL/FEEDING TUBE PRN cefepime 2 g in D5W 100 mL MB+ (MAXIPIME) 2 g INTRAVENOUS q 8 HR magnesium sulfate in water 2 g in sterile water 50 ml 2 g INTRAVENOUS PRN sodium glycerophosphate 15 mmol in D5W 250 mL (GLYCOPHOS) 15 mmol INTRAVENOUS PRN sodium glycerophosphate 30 mmol in D5W 250 mL (GLYCOPHOS) 30 mmol INTRAVENOUS PRN sodium glycerophosphate 45 mmol in D5W 250 mL (GLYCOPHOS) 45 mmol INTRAVENOUS PRN insulin glargine 18 Units pen (long acting) (LANTUS SOLOSTAR, BASAGLAR KWIKPEN) 18 Units SUBCUTANEOUS AT BEDTIME dextrose 40 % 15 g 15 g ORAL PRN glucagon 1 mg injection (GLUCAGEN) 1 mg INTRAMUSCULAR PRN dextrose 50 % 12.5 g injection 12.5 g INTRAVENOUS PRN octreotide 500 mcg in D5W 100 mL (SandoSTATIN) 50 mcg/hr INTRAVENOUS CONTINUOUS acetaminophen 650 mg suppository (TYLENOL) 650 mg RECTAL q 4 H PRN propofol infusion (DIPRIVAN) 5-60 mcg/kg/min INTRAVENOUS CONTINUOUS lactated ringers infusion 5-30 mL/hr INTRAVENOUS CONTINUOUS NaCl 0.9% 3-5 mL 3-5 mL INTRAVENOUS q 12 H fentaNYL 50 mcg/mL 25-50 mcg injection (SUBLIMAZE) 25-50 mcg INTRAVENOUS q 1 H PRN Chlorhexidine Gluconate 0.12 % 15 mL (PERIDEX) 15 mL ORAL QID metroNIDAZOLE 500 mg PREMIX piggyback (FLAGYL) 500 mg INTRAVENOUS q 8 H ipratropium-albuterol 3 mL nebulizer solution (DUONEB) 3 mL INHALATION q 4 H PRN albuterol 2.5 mg/0.5 mL 2.5 mg nebulizer solution (PROVENTIL) 2.5 mg INHALATION q 4 H PRN pantoprazole 40 mg injection (PROTONIX) 40 mg INTRAVENOUS BID AC (0600/1600) Social History Marital status: Spouse name: Years of education: Number of children: Social History Main Topics Smoking status: Current Every Day Smoker Packs/day: 0.00 Years: 0.00 Alcohol use: Yes Drug use: Yes No family history on file. Physical Exam: BP 178/77 Pulse 87 Temp 37.8 ?C (100.1 ?F) (Oral) Resp (!) 31 Ht 177.8 cm (5' 10) Wt 107.8 kg (237 lb 10.5 oz) SpO2 98% BMI 34.10 kg/m? GENERAL APPEARANCE: intubated and sedated HEENT: Head exam: normocephalic, atraumatic Eyes: eyes shut with mild edema of the lids bilaterally Ear exam: external ears normal Oropharynx: Endotracheal tube in place CHEST: anterior breath sounds somewhat rhonchorous, no wheezing, no respiratory distress CARDIAC: RRR, no murmurs ABDOMEN: soft, non-tender EXTREMITIES: no edema SKIN: warm, dry, tattoos present Diagnostic Studies: PENICILLIN SKIN TESTING Interpreted By: Yaima Knapp MD ALLERGEN: Penicillin G (Percutaneous): 0mm, 0mm PrePen (Percutaneous): 0mm, 0mm CONTROL: 0mm, 0mm HISTAMINE: 3mm, 17mm Penicillin G (Intradermal): 0mm, 0mm PrePen (Intradermal): 0mm, 0mm CONTROL: 0mm, 0mm HISTAMINE: 11mm, 35mm Assessment: The patient has no evidence of penicillin-specific reaction by skin testing to penicillin G and PrePen. This suggests that the patient is not at increased risk for IgE-mediated (allergic/anaphylactic) reaction from penicillin/penicillin-like drugs compared with the history-negative general population. On this basis, the patient may receive beta lactam antibiotics as indicated. The patient is still at risk for a non-IgE mediated reaction including SJS/TEN, serum sickness, or adverse effects of penicillin or penicillin-like drugs, as these tests do not predict the potential for these reactions. In addition, this evaluation does not rule out development of IgE sensitization upon exposure to beta lactams in the future. The patient's risk for developing an IgE-mediated reaction, a delayed reaction, or adverse drug reaction is the same as it would be for the general population. As we were unable to obtain the reaction history from the patient or family we would strongly recommended continuing to contact family to see if they are able to confirm that the reaction was not a life threatening/severe reaction (such as requiring ICU stay), as the possibility exists that this could have been a delayed hypersensitivity reaction which was severe, such as Mercado Guillermo Syndrome (SJS), in which case this would be missed by PCN skin testing and we would need to continue to avoid penicillin. If unable to confirm that the family is unaware of a history of life threatening reaction and penicillin is the drug of choice without an equally efficacious alternative, then the decision as to whether or not to administer penicillin would have to be based on careful assessment of the risks and benefits. There is no desensitization procedure for delayed hypersensitivity reactions. If the family confirms that there is no knowledge of the reaction having been life threatening, then the patient may take penicillin, semi-synthetic penicillin drugs, and cephalosporins as clinically indicated. We recommend giving a test dose (10%) of the desired penicillin drug and if there is no reaction after 30 minutes, you may proceed with regular dosing with no further restrictions. Thank you for allowing us to participate in the care of this patient. Please call with any questions. Yaima Knapp MD Allergy and Immunology Fellow PAGER: [phone] Date: April 21, 2018 Time:3:25 PM To be Discussed with Dr. Tana Ramey ALLERGY/IMMUNOLOGY STAFF Lazaro Villafana was seen today for Allergy/Immunology evaluation. I have confirmed and agree with history, physical examination, assessment, and recommendations as detailed above by the fellow; complete details will not be reiterated herein. Briefly the patient has history of reported penicillin allergy. No details of penicillin allergy are known. The patient is extubated at the time of my evaluation, but is not able to provide history regarding penicillin allergy. On examination today, the patient is alert, drowsy. No rashes. No angioedema. Heart RRR. Lungs with coarse breath sounds. Penicillin skin testing negative as listed above. A/P: -The patient has no evidence of penicillin-specific IgE by skin testing. This suggest that the patient is at low risk for an IgE-mediated Type I hypersensitivity reaction to penicillin. Skin testing cannot predict non-IgE or idiosyncratic reactions to penicillin. -the patient is not currently able to provide history regarding the details of the penicillin reaction. If there is a history consistent with a severe cutaneous adverse reaction (SJS, TEN), AGEP, or DRESS, rechallenge with penicillin would not be recommended. Therefore, would recommend that the team obtain additional history from the patient to help determine what type of reaction the original reaction was. If the patient requires treatments with a penicillin and no equally efficacious alternative exists prior to that time, risks vs benefits of penicillin use would need to be considered. -if the initial reaction was not consistent with any of the severe reactions listed above, use of a penicillin could be considered. Recommend that the first dose be given as a graded dose challenge in a monitored setting. Tana Ramey MD CASE MANAGEM Observed: 04/21/2018 Status: COMPLETED Source: [place] 3:21 PM [facility] REPOSITORY HNO ID: [id number] Author: Rai Ferreira) BLAYNE Kramer Service: Care Management Author Type: Registered Nurse Type: Care Mgt Progress Note Filed: 04/21/2018 3:25 PM Note Text: CARE MANAGEMENT PROGRESS NOTE SERVICE DATE: 04/21/2018 SERVICE TIME: 3:21 PM LOS: 7 days Patient remains in SICU intubated and sedated on Octreotide and remains NPO on TPN with NG, antibiotics per ID and with right chest tube. Had bronch with cultures sent yesterday. Temp max 39. Plan for CT chest today. Per CTS potential rescope next week. Laser Specialist to follow for discharge planning pending POC and medical stability. Needs Prior to Discharge: To Be Determined SIGNATURE: Rai Kramer RN PATIENT NAME: Lazaro Villafana DATE: April 21, 2018 TIME: 3:21 PM PAGER/CONTACT #: [phone] NUTRITION Observed: 04/21/2018 Status: COMPLETED Source: [place] 1:15 PM [facility] REPOSITORY HNO ID: [id number] Author: Sari Weston Service: NST-Nutrition Support Team Author Type: Registered Dietitian Type: Nutrition Filed: 04/21/2018 1:24 PM Note Text: NUTRITION SUPPORT TEAM PROGRESS NOTE SERVICE DATE: 04/21/2018 SERVICE TIME: 1115 RECOMMENDED DIAGNOSIS: MILD PROTEIN-CALORIE MALNUTRITION per Registered Dietitian on 04/17/2018 NUTRITION CARE PLAN Intervention: 1. Continue TPN with decreased volume and increased insulin - PN to provide 100gms 15% AA, 600 dextrose calories, 1.5L at 62.5ml/hr - orders pended with add NaPhos, incr K+ acetate, reduced KPhos, MVI, MTE, 35 - 55u insulin (1:3 ratio), 100mg thiamine - adjust PN calories with propofol infusion. PN meeting minimum calories with current propofol rate 2. Defer 250ml IVPB lipids 20% fat emulsion with propofol ? Monitor and Evaluation: Goal: Meet >75% of estimated needs Monitor fluid/electrolyte balance Monitor labs, I/Os, vital signs, weight ? Discharge Nutrition Recommendations: To be determined ? 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 Patient initially presented with hematemesis and melena with accompanying dizziness and shortness of breath. Transferred to [facility] S[facility] on 04/14 for further management. s/p EGD 04/15 which showed a deep esophageal tear. ?Plan for a minimum of NPO x 2 weeks. 04/16 Right chest tube placed for effusion. Interval History: PN volume increased. Discussed PN plan with SICU team; plan to reduce volume and increase insulin Pt is febrile with Tmax: 39 Resp: intubated I/O's: Intake/Output Summary (Last 24 hours) at 04/21/18 1318 Last data filed at 04/21/18 1100 Gross per 24 hour Intake 3584 ml Output 2210 ml Net 1374 ml overall +9143.2 Abdomen: not assessed Last BM: 04/20 - black Enteral access: n/a; NG to low suction with 400ml output past 24 hours Parenteral access: right IJ TLC placed 04/14 Labs: hyperchloremia (trended down), hypocapnia, hypophosphatemia, hyperglycemia, BUN/Cr trending up, lactate 1.2, ionized calcium 1.16 Blood Gases: pH 7.36, pCO2 40, HCO3 22 Blood sugars: 230, 255, 227 Cultures: blood cx x 2 no growth x 4 days; blood cx x 2 no growth <24 hours Imaging: n/a Nutritional Intake: Intake History BI DATA ARCHITECT: Unable to determine Current intake: 04/17: Average 5 day intakes meeting <50% of estimated energy need.s started on PN 04/17 due to esophageal tear, plan for NPO x 2 weeks 04/18: currently goal kcals, PN 940 kcals, 110 g pro + propofol 765 kcals/day 1/2: TPN wirh orders 04/17 - 04/19 to provide 110gms protein and 940 claories + additional calories from propofol (04/19 provided 626 calories) 13: PN with orders 04/20 to provide 100gms protein and 1000 calories + additional calories from propofol (~660 past 24 hours) ? Current Diet Order DIET NPO Lines and Drains: Central Line Triple Lumen 04/14/18 2319 Non-tunneled Right Neck (Active) Peripheral 04/14/18 2344 Left Antecubital 18 Gauge (Active) GI Feed/Drain 04/14/18 2319 Nasogastric Left Naris 16 Fr (Active) Indwelling Urinary Catheter 04/14/182113 Admission to Hospital [facility] (Active) Chest Tube 04/16/18 2100 Right 28 Fr (Active) Height: 177.8 cm (5' 10) Admission Weight: 106.1 kg (233 lb 14.5 oz) Current Weight: 107.8 kg (237 lb 10.5 oz) Body mass index is 34.1 kg/m?. Usual body weight ?Unable to determine? No weight history available. ? Estimated nutrition goals: [place] body weight: 75.4 kg Dosing weight: 106?kg (04/14; BMI 33.5kg/m2) ? Calorie needs 6129-8540?kilocalories determined by = 15-20?kcals/kg ?Dosing?weight? Protein needs: 90 - 121 grams determined by 1.2 -1.6g/kg ideal?weight?- due to CKD Temp (24hrs), Av.9 ?C (100.3 ?F), Min:37 ?C (98.6 ?F), Max:39 ?C (102.2 ?F) Recent Labs 04/21/18 0206 GLUC 247* BUN 61* CREAT 1.57* NA 141 K 4.2 CHLOR 107* CO2 21* ALB 2.2* P 2.4* HB 7.7* HCT 24.5* WBC 9.75 MG 2.1 Vitamin and Mineral Labs in the past year:No results for input(s): CHROMIUM, COPPER, MANGANESE, SELENIUM, VITAMINA, VITB1, VITB2, VITB6, B12, METHYLMAL, VITD25, VITAMINE, VITAK, ZINC, TIBC, FE, JOHANNY in the last 8784 hours. MNT Billing Type: Re-assess/15 min 2 units SIGNATURE: Sari Weston RD [facility] PATIENT NAME: Lazaro Villafana DATE: April 21, 2018 TIME: 1:16 PM PAGER: [phone] GASA + ALL Collected: 04/21/2018 Status: F Source: [place] FOR 12:52 PM [facility] USE ONLY REPOSITORY TYPE CODE TESTS RESULT OUT OF REFERENCE UNITS RANGE LAB PH 7.35-7.45 pH 7.36 LAB PCO2 34-46 mm Hg pCO2 40 LAB PO2 85-95 mm Hg pO2 104 High LAB BE mmol/L Base Excess NEG 3 LAB HCO3 22-26 mmol/L Bicarbonate 22 LAB CO2CT 22.0-28.0 mmol/L CO2 Content 23 LAB O2HB 95-98 % 96 Oxyhemoglobin, Art. LAB COHB 0-5.0 % 0.9 Carboxyhemoglobin ,Art LAB MHGB 0.4-1.5 % 0.7 Methemoglobin LAB TEMP C 37.0 Temperature, Body LAB PHTC 7.35-7.45 pH, Temp 7.36 Corrected LAB PCO2T 34-46 mm Hg pCO2, Temp 40 Correct LAB PO2T mm Hg pO2, Temp 104 Corrected LAB NAB 135-146 mmol/L 140 Sodium,Whole Bld LAB KWB 3.5-5.0 mmol/L Potassium, 4.0 Whole Bld LAB HGBB 13.0-17.0 g/dL 8.0 Low Hemoglobin,Total, ACL LAB HCTB 39.0-51.0 % Hematocrit, 25 Low ACL LAB IC 1.08-1.30 mmol/L Calcium, 1.16 Ion, WB LAB GLB 60-105 mg/dL 224 High Glucose,Whole Bld LAB LACT 0.5-2.2 mmol/L Lactate 1.2 LAB ABGCOM Blood Gas O2 Comm, Art Administration Result Comment: 40% Performed By: #### ALLBG #### [facility] [address] [place], [place] [address] CT CHEST WO IVCON Observed: 04/21/2018 Status: F Source: [place] 11:40 AM [facility] REPOSITORY * * *Final Report* * * DATE OF EXAM: Apr 21 2018 11:40AM [facility] [place]41 - CT CHEST WO IVCON / PROCEDURE REASON: Abscess of lung or mediastinum * * * * Physician Interpretation * * * * EXAMINATION: CHEST CT WITHOUT CONTRAST CLINICAL HISTORY: Abscess of lung or mediastinum, 52 year old male with PMHx type II DM, poorly controlled HTN, CKD, COPD, tobacco smoker 2-3 PPD, alcohol use disorder with recent diagnosis of cirrhosis w/ esophageal varices who presents on transfer from OSH with hematemesis s/p EGD at OSH c/b esophageal laceration Technique: Spiral CT acquisition of the chest from the thoracic inlet to the upper abdomen without contrast. MQ: [id number] CT Dose-Length Product: 524 mGy*cm CT Dose Reduction Employed: Automated exposure control (AEC) Comparison: CT chest dated 04/16/2018 RESULT: Limitations: Respiratory motion artifact partially degrades the examination. Lines, tubes, and devices: The endotracheal tube ends at the level of the thoracic inlet. The nasogastric/orogastric tube can be followed as far as the stomach. A right internal jugular approach venous catheter ends in the superior vena cava. A right apically directed thoracostomy tube is unchanged. Lung parenchyma and pleura: Right pleural effusion extending into the fissures is unchanged since prior exam with associated atelectasis. Superimposed infection/aspiration cannot be excluded. The atelectasis in the right lower lobe has decreased since the prior exam. Gas locules are seen in the right pleural space consistent with a hydropneumothorax. Small left pleural effusion and left lower lobe atelectasis is unchanged since the prior exam. The left upper lobe consolidation has decreased since the prior examination. Groundglass opacities in the left upper lobe, lingula are likely infectious/inflammatory. No left pneumothorax is seen. The central airways are patent. No endobronchial lesion is seen. Thoracic inlet, heart, and mediastinum: Multiple mediastinal lymph nodes measuring up to 1.1 cm in the right paratracheal space (image 50) are visible and are likely reactive. Evaluation of hilar lymph nodes is limited by lack of intravenous contrast. No axillary or supraclavicular lymphadenopathy is seen. There is a two-vessel left aortic arch with a common origin of the right brachiocephalic artery and the left common carotid artery, a normal variant. The aorta is normal in course and caliber. The main pulmonary artery is normal in course and caliber. No atherosclerotic calcifications are seen in the coronary arteries but the exam is not optimized for evaluation of the coronary arteries. The cardiac chambers are normal in size. There is no pericardial effusion or pericardial thickening. The visible portion of the thyroid gland is unremarkable. Circumferential wall thickening of the esophagus is seen. A tiny locules of gas adjacent to the esophagus (image 117) may represent pneumomediastinum. The known esophageal tear is not appreciated on this examination. Bones and soft tissues: No suspicious lytic or blastic lesions are seen in the bones. Minimal degenerative changes are seen in the thoracic spine. Fat stranding is seen in the right lateral chest wall related to the thoracostomy tube placement. Mild body wall edema is seen in the left lateral chest wall (image 164). Upper abdomen: The liver has a nodular contour suggestive of cirrhosis. The partially imaged spleen and stomach are unremarkable. The right adrenal gland is normal. IMPRESSION: 1. Unchanged right hydropneumothorax with right thoracostomy tube and associated right lower lobe atelectasis. Superimposed infection/aspiration cannot be excluded. 2. Groundglass opacities in the left upper lobe and lingula, likely infectious/inflammatory. Left apical consolidation has decreased since the prior exam. 3. Circumferential wall thickening of the esophagus. Known esophageal tear is not visualized on this examination. 4. Mediastinal lymphadenopathy, likely reactive. Steel Turner: NIDHI Transcribe Date/Time: Apr 21 2018 12:25P Dictated by : ELOISE GONSALVES MD This examination was interpreted and the report reviewed and electronically signed by: ELOISE GONSALVES MD on Apr 21 2018 12:55PM EST [id number] NURSING PROG Observed: 04/21/2018 Status: COMPLETED Source: [place] 10:50 AM [facility] REPOSITORY O ID: [id number] Author: Thania GhoshRn) BLAYNE Ziegler Service: Nursing Author Type: Registered Nurse Type: Nursing Progress Note Filed: 04/21/2018 10:50 AM Note Text: Nursing Progress: Topic: RESTRAINT NON-VIOLENT PATIENT NAME: Lazaro Villafana PATIENT LOCATION: [place] [address] The patient demonstrates Attempting to Remove Medical Devices Vital to Medical Stability, Confusion, Lack of Understanding/Ability to Comply with Safety Directions, Impulsive Behavior, Inability to be Redirected, Inability to Retain Information Regarding Safety Directions as evidenced by the following behaviors pulling at vital lines and tubes which pose an imminent danger to self or others. The following interventions were attempted but were not effective in protecting the patient's safety: Alarms, Medications Reviewed, Modify Environment, Modify Equipment Next, a comprehensive assessment was performed and warranted placing the patient in Soft Bilateral Wrists, the least restrictive restraint needed to protect the patient's safety. Ongoing safety assessments and evaluation for earliest removal of restraints will be performed. DATE: April 21, 2018 TIME: 10:50 AM Thania Ziegler RN PROGRESS Observed: 04/21/2018 Status: COMPLETED Source: [place] 9:16 AM [facility] REPOSITORY [facility] ID: [id number] Author: Nima Grimes Service: Critical Care Author Type: Resident Type: Progress Notes Filed: 04/21/2018 12:25 PM Note Text: SURGICAL INTENSIVE CARE UNIT PROGRESS NOTE SERVICE DATE: April 21, 2018 SERVICE TIME: 12:16pm Subjective Mr.?Howard Villafana is a 52-year-old male with PMHx type II DM, poorly controlled HTN, CKD, COPD, tobacco smoker 2-3 PPD, alcohol use disorder with recent diagnosis of cirrhosis was transferred from [facility] with an esophageal perforation seen on EGD. Patient initially presented with hematemesis and melena with accompanying dizziness and shortness of breath. Now being admitted to the SICU for surgical evaluation and hemodynamic monitoring. Objective VITAL SIGNS Temp: (!) 38.2 ?C (100.7 ?F) Pulse: 94 BP: 122/58 MAP Non Invasive (Mean Arterial Pressure): 83 Resp: 29 SpO2: 98 % Not applicable Current Facility-Administered Medications: heparin 5,000 Units injection 5,000 Units SUBCUTANEOUS q 12 H Parenteral Nutrition - Adult INTRAVENOUS ONCE TPN (2200 START) vancomycin 1.5 g in D5W 250 mL (VANCOCIN) 1.5 g INTRAVENOUS q 12 HR vancomycin dosing and monitoring per pharmacy OTHER As Directed insulin regular human injection (short acting) (NovoLIN R,HumuLIN R) SUBCUTANEOUS q 6 H potassium chloride iv piggyback 20 mEq/100 mL 20 mEq INTRAVENOUS PRN Or potassium chloride 20-80 mEq CUP 20-80 mEq ORAL/FEEDING TUBE PRN cefepime 2 g in D5W 100 mL MB+ (MAXIPIME) 2 g INTRAVENOUS q 8 HR magnesium sulfate in water 2 g in sterile water 50 ml 2 g INTRAVENOUS PRN sodium glycerophosphate 15 mmol in D5W 250 mL (GLYCOPHOS) 15 mmol INTRAVENOUS PRN Or sodium glycerophosphate 30 mmol in D5W 250 mL (GLYCOPHOS) 30 mmol INTRAVENOUS PRN Or sodium glycerophosphate 45 mmol in D5W 250 mL (GLYCOPHOS) 45 mmol INTRAVENOUS PRN insulin glargine 18 Units pen (long acting) (LANTUS SOLOSTAR, BASAGLAR KWIKPEN) 18 Units SUBCUTANEOUS AT BEDTIME dextrose 40 % 15 g 15 g ORAL PRN Or glucagon 1 mg injection (GLUCAGEN) 1 mg INTRAMUSCULAR PRN Or dextrose 50 % 12.5 g injection 12.5 g INTRAVENOUS PRN octreotide 500 mcg in D5W 100 mL (SandoSTATIN) 50 mcg/hr INTRAVENOUS CONTINUOUS acetaminophen 650 mg suppository (TYLENOL) 650 mg RECTAL q 4 H PRN propofol infusion (DIPRIVAN) 5-60 mcg/kg/min INTRAVENOUS CONTINUOUS lactated ringers infusion 5-30 mL/hr INTRAVENOUS CONTINUOUS NaCl 0.9% 3-5 mL 3-5 mL INTRAVENOUS q 12 H fentaNYL 50 mcg/mL 25-50 mcg injection (SUBLIMAZE) 25-50 mcg INTRAVENOUS q 1 H PRN Chlorhexidine Gluconate 0.12 % 15 mL (PERIDEX) 15 mL ORAL QID metroNIDAZOLE 500 mg PREMIX piggyback (FLAGYL) 500 mg INTRAVENOUS q 8 H ipratropium-albuterol 3 mL nebulizer solution (DUONEB) 3 mL INHALATION q 4 H PRN albuterol 2.5 mg/0.5 mL 2.5 mg nebulizer solution (PROVENTIL) 2.5 mg INHALATION q 4 H PRN pantoprazole 40 mg injection (PROTONIX) 40 mg INTRAVENOUS BID AC (0600/1600) Cardiovascular: Regular rhythm Abdomen: Soft and Nontender Extremities: Mild pedal edema Neuro: Sedated Intake/Output Summary (Last 24 hours) at 04/21/18 1216 Last data filed at 04/21/18 0900 Gross per 24 hour Intake 3584 ml Output 2150 ml Net 1434 ml Current Weight: Weight: 108 kg (238 lb 1.6 oz) Admission Weight: Weight: 106.1 kg (233 lb 14.5 oz) RESPIRATORY Mechanical Ventilation: Vent Mode: PSV Freq (bpm): 18 PS (cmH20): 8 PEEP / CPAP (cmH20): 10 FIO2 (%): 40 Recent Labs 04/20/18 0144 04/19/18 0829 PH 7.38 7.41 PO2 73* 110* PCO2 36 34 BE NEG 4 NEG 2 HCO3 21* 21* LACT 1.1 0.9 CXR Findings: There is a partially loculated medium-size right pleural effusion with adjacent airspace consolidation, either aspiration/pneumonia. ?Patchy opacities are in the left lung. ?Findings are essentially stable from the prior exam. ?No large pneumothorax is identified. INFUSION(S): Propofol Patient Lines Assessed: Lines, Drains, and Airways Line Arterial Line 04/14/18 2320 Arterial Line Left Radial 6 days Central Line Triple Lumen 04/14/18 2319 Non-tunneled Right Neck 6 days Peripheral 04/14/18 2344 Left Antecubital 18 Gauge 6 days Drain GI Feed/Drain 04/14/18 2319 Nasogastric Left Naris 16 Fr 6 days Indwelling Urinary Catheter 04/14/182113 Admission to [facility] 6 days Chest Tube 04/16/18 2100 Right 28 Fr 4 days Airway Airway Endotracheal Tube 04/14/182114 6 days Diagnostic tests reviewed for today's visit: Most recent labs and imaging results. Assessment/Plan Neuro:? -- tachypnea requiring intubation at OSH -- On propofol gtt. -- Fentanyl ?CV:? -- Goal MAP >65 - CXR yesterday - partially loculated medium-size right pleural effusion with adjacent airspace consolidation, stable from prior exam. ? Pulm:??Hx of COPD. Intubated. --Continue home bronchodilators -- duonebs prn -- Chest tube output 40cc over 24 hrs - will maintain wall suction. Continue intubation - Bronchoscopy yesterday, cultures sent - Continue RT treatments - CT chest WO IV contrast today ? Renal:??(baseline Cr ~1.2 from 02/2018) -- LIANE; most likely pre-renal.?Cr 1.57, slightly up from yesterday --Monitor Cr and I/Os --[facility] ? GI:?Likely partial thickness esophageal perforation. Presented from OSH on 04/14 with hematemesis, melena dizziness and SOB. EtOH cirrhosis with portal HTN, grade 2 esophageal varices -- mid distal esophageal tear - not amenable to esophageal stenting --Pantoprazole for GI ppx and ocreotide gtt for at least 7 days (ending tomorrow) --NPO, TPN --NGT positioned by GI - DO NOT MANIPULATE BLINDLY -- potential mediastinitis -- General surgery - continue NPO -- Thoracic surgery - potential re-scope next week ? Heme:? -- Hgb 7.7 -- thrombocytopenia. Will watch for signs of bleeding and need?for further transfusion --Transfuse to keep Hgb >7 - SQH starting today ? Fluid/Electrolyte/Nutrition: --NPO --Replete lytes as one time dosing -- TPN ? Endo:?Hx of IDDM, HgbA1c 8.2. Glucose this am 255 - BG goal 130-180 - lantus --Continue insulin gtt -- Nutrition will adjust lantus in TF ? ID:?Esohageal tear and perforation. aztreonam and flagyl at OSH -Intermittent low grade fevers - MSSA PCR positive - MRSA PCR negative -Started Vancomycin per ID recs to cover for GPC -Concern for mediastinitisis - empiric coverage with cefepime, fluconazole, flagyl, vanco - end date in 1 month - Increased fluconazole to 400mg daily - allergy consult for skin test ? - ID following, appreciate recs ? PPX:? - GI ppx - pantoprazole - VTE ppx - held due to thrommbocytopenia ? Medication and Non-Pharmacologic VTE Prophylaxis/Anticoagulants Anticoagulant AND Antiplatelet Medications Start Dose Route Frequency Ordered Stop 04/21/18 0930 heparin 5,000 Units injection 5,000 Units SUBCUTANEOUS EVERY 12 HOURS 04/21/18 0901 -- 04/14/18 2100 pneumatic compression stockings (nc,ut) 04/14/18 2100 activity - mobilize patient ([place], [place]) VTE Prophylaxis: VTE prophylaxis appropriate SIGNATURE: Nima Grimes MD, PGY-1 resident PATIENT NAME: Lazaro Villafana DATE: April 20, 2018 TIME: 1:03 PM PAGER/CONTACT #: CONSULT PROG Observed: 04/21/2018 Status: COMPLETED Source: [place] 7:41 AM [facility] REPOSITORY HNO ID: [id number] Author: Leena Li Service: Infectious Disease Author Type: Physician Type: Consult Progress Note Filed: 04/21/2018 3:26 PM Note Text: INFECTIOUS DISEASES PROGRESS NOTE Patient Name: Lazaro Villafana Account #: Data Unavailable Admission Date: 04/14/2018 Date of Evaluation: 04/21/2018 Time of Evaluation: 10:20 AM INTERVAL HPI: No acute events overnight. Off pressors. Minimal oxygen requirement. Ongoing known mediastinitis, no surgical intervention planned at this time. Day 7 cefepime, fluconazole, metronidazole; day 2 vancomycin. On TPN for nutrition, project 2 weeks of NPO status until esophageal perforation may have healed; plans for re-scoping next week with GI. Tracheal aspirate, blood cultures collected 04/20/18. Febrile to 102.2F overnight, stable leukocytosis. Received tylenol. MEDICATIONS: Current hospital medications: Parenteral Nutrition - Adult INTRAVENOUS ONCE TPN (2200 START) vancomycin 1.5 g in D5W 250 mL (VANCOCIN) 1.5 g INTRAVENOUS q 12 HR vancomycin dosing and monitoring per pharmacy OTHER As Directed insulin regular human injection (short acting) (NovoLIN R,HumuLIN R) SUBCUTANEOUS q 6 H potassium chloride iv piggyback 20 mEq/100 mL 20 mEq INTRAVENOUS PRN potassium chloride 20-80 mEq CUP 20-80 mEq ORAL/FEEDING TUBE PRN cefepime 2 g in D5W 100 mL MB+ (MAXIPIME) 2 g INTRAVENOUS q 8 HR magnesium sulfate in water 2 g in sterile water 50 ml 2 g INTRAVENOUS PRN sodium glycerophosphate 15 mmol in D5W 250 mL (GLYCOPHOS) 15 mmol INTRAVENOUS PRN sodium glycerophosphate 30 mmol in D5W 250 mL (GLYCOPHOS) 30 mmol INTRAVENOUS PRN sodium glycerophosphate 45 mmol in D5W 250 mL (GLYCOPHOS) 45 mmol INTRAVENOUS PRN insulin glargine 18 Units pen (long acting) (LANTUS SOLOSTAR, BASAGLAR KWIKPEN) 18 Units SUBCUTANEOUS AT BEDTIME dextrose 40 % 15 g 15 g ORAL PRN glucagon 1 mg injection (GLUCAGEN) 1 mg INTRAMUSCULAR PRN dextrose 50 % 12.5 g injection 12.5 g INTRAVENOUS PRN octreotide 500 mcg in D5W 100 mL (SandoSTATIN) 50 mcg/hr INTRAVENOUS CONTINUOUS acetaminophen 650 mg suppository (TYLENOL) 650 mg RECTAL q 4 H PRN propofol infusion (DIPRIVAN) 5-60 mcg/kg/min INTRAVENOUS CONTINUOUS lactated ringers infusion 5-30 mL/hr INTRAVENOUS CONTINUOUS NaCl 0.9% 3-5 mL 3-5 mL INTRAVENOUS q 12 H fentaNYL 50 mcg/mL 25-50 mcg injection (SUBLIMAZE) 25-50 mcg INTRAVENOUS q 1 H PRN Chlorhexidine Gluconate 0.12 % 15 mL (PERIDEX) 15 mL ORAL QID metroNIDAZOLE 500 mg PREMIX piggyback (FLAGYL) 500 mg INTRAVENOUS q 8 H ipratropium-albuterol 3 mL nebulizer solution (DUONEB) 3 mL INHALATION q 4 H PRN albuterol 2.5 mg/0.5 mL 2.5 mg nebulizer solution (PROVENTIL) 2.5 mg INHALATION q 4 H PRN pantoprazole 40 mg injection (PROTONIX) 40 mg INTRAVENOUS BID AC (0600/1600) fluconazole 200 mg in NaCl (iso-osmotic) 100 mL (DIFLUCAN) 200 mg INTRAVENOUS DAILY PHYSICAL EXAM: BP 132/60 Pulse 96 Temp (!) 38.2 ?C (100.7 ?F) (Oral) Resp 19 Ht 177.8 cm (5' 10) Wt 107.8 kg (237 lb 10.5 oz) SpO2 95% BMI 34.10 kg/m? Lines: Mcclain 04/14, Nontunnelled triple lumen 04/14 in R neck, ET tube 04/14, NG in L nare 04/14, L radial A-line 04/14 ?GEN: Patient is critically ill appearing. Sedated. SKIN: No lesions noted. EYES: PERRLA NOSE: Left Nare Ng tube in place. NECK: R nontunnelled triple lumen catheter with no overlying erythema, swelling or warmth. LUNGS: clear to auscultation, no wheezes, or crackles. HEART: ?Regular rate/rhythm, normal heart sounds, and no murmurs. ABDOMEN: Soft, epigastric tenderness, BS present. EXTREMITIES: Edema of hands b/l, no LE edema. NEURO: Sedated, not following commands. +1.3L in last 24 hours Labs: WBC 9.75, Hgb 7.7, Plt 82, Cr 1.57 BMP: Recent Labs 04/21/18 0206 04/20/18 0134 04/19/18 0330 04/18/18 0002 04/17/18 0019 04/16/18 0031 04/15/18 0345 04/14/18 2120 GLUC 247* 219* 159* 202* 229* 238* 359* 445* NA 141 143 143 142 137 139 136 140 K 4.2 4.1 4.0 3.6* 4.1 4.0 4.8 5.0 CHLOR 107* 111* 111* 109* 106* 103 98 100 CO2 21* 20* 20* 21* 21* 23 23 24 ANION 13 12 12 12 10 13 15 16 BUN 61* 57* 58* 63* 69* 67* 74* 76* CREAT 1.57* 1.50* 1.47* 1.80* 2.34* 1.97* 2.47* 2.71* Micro and radiology personally reviewed 04/14/18: Quantiferon gold testing negative for TB 04/14/18: Blood cultures 04/19 no growth 04/14/18: MSSA nasal swab positive 04/17/18: MSSA nasal swab positive 04/17/18: Blood cultures 2/2 no growth 04/20/18: Blood cultures 2/2 no growth 04/20/18: Tracheal aspirate cultures no organisms on gram stain so far CT Chest 04/17/18: IMPRESSION: 1. ?NEW MULTIFOCAL CONSOLIDATIVE/GROUNDGLASS OPACITIES PREDOMINANTLY LEFT UPPER LOBE AND LINGULA, MAY REPRESENT MULTIFOCAL PNEUMONIA/ASPIRATION PNEUMONITIS, HEMORRHAGE OR ASYMMETRIC EDEMA. ?RADIOGRAPHIC FOLLOW-UP IS RECOMMENDED.. 2. ?BILATERAL LOWER LOBE AIRSPACE OPACITIES WITH VOLUME LOSS, RIGHT GREATER THAN LEFT, MOST LIKELY ATELECTASIS WITH POSSIBLE SUPERIMPOSED INFECTIOUS PROCESS. 3. ?LIMITED EVALUATION OF PREVIOUSLY SEEN MID ESOPHAGEAL CONTRAST EXTRAVASATION/TEAR. ?SMALL FOCI OF RIGHT-SIDED PNEUMOMEDIASTINUM, NOT SIGNIFICANTLY CHANGED. ?SMALL FOCI OF PNEUMOMEDIASTINUM HAVE DEVELOPED SUPERIORLY. ?THESE COULD BE FROM RECENT INTERVENTION. 4. SMALL BILATERAL PLEURAL COLLECTIONS HAVE SLIGHTLY INCREASED COMPARED TO PRIOR EXAM. ?THE AIR COMPONENTS OF THE RIGHT PLEURAL COLLECTION ARE NEW SINCE PREVIOUS EXAM, LIKELY RELATED TO ?INTERVAL PLACEMENT OF RIGHT APICAL CHEST TUBE. CXR 04/19/18: IMPRESSION: Lines, tubes, and devices: ?The endotracheal tube ends in the thoracic trachea. ?The nasogastric/orogastric tube can be followed as far as the stomach. ?The right thoracostomy tube is unchanged. ?The right internal jugular venous catheter ends in the superior vena cava. Lungs and pleura: ?Small right pleural effusion with associated atelectasis is present. ?Superimposed aspiration/pneumonia cannot be excluded. ?Mild left basilar atelectasis is seen. ?No large pneumothorax is seen. Cardiomediastinal silhouette: ?Stable cardiomediastinal silhouette. US upper extremities 04/20/18: IMPRESSION ? RIGHT SIDE - DEEP VEINS Technically limited study. Negative for acute deep vein thrombosis in vessels visualized. Unable to visualize the internal jugular vein due to IV lines and bandages. RIGHT SIDE - SUPERFICIAL VEINS Acute superficial thrombophlebitis in the cephalic vein antecubital fossa to wrist. Acute superficial thrombophlebitis in the basilic vein mid upper arm to wrist. Acute superficial thrombophlebitis in the median cubital vein at the antecubital fossa. ? LEFT SIDE - DEEP VEINS Spontaneous and respirophasic flow noted in the subclavian vein at proximal. ? IMPRESSION / PLAN 52 yo M with a h/o cirrhosis, EtoH related, CKD, COPD and reported + PPD in the past. Currently no clinical or imaging evidence of active pulmonary TB. Presenting with hemorrhagic shock secondary to hematemesis/esophageal tear c/b pneumomediastinum; no surgical intervention planned at this time. Persistent fevers with more extensive right lung opacities. Stable, neutrophil-predominant leukocytosis. Superficial upper extremity clot burden unlikely to explain fevers to 102.2F as seen overnight. Potential sources include urinary catheter infection, central venous catheter related infection, progression of known mediastinitis, or drug fever. ? Plan: - continue vancomycin, cefepime, metronidazole, fluconazole as ordered for now - will continue to monitor fever curve and clinical progress - if fevers worsen or becomes hemodynamically unstable, would consider repeating CT chest as well as removing and replacing mcclain catheter (would then collect UA and Urine culture off of new mcclain catheter) Will discuss with attending, Perla Delgado PGY4 [facility] STAFF PHYSICIAN NOTE OF PERSONAL INVOLVEMENT IN CARE Events reviewed. Patient examined. Findings as outlined in the fellow's note above. Jang elements verified. ? Relevant lab data, microbiology and imaging data reviewed. Relevant images personally reviewed. ? Agree with assessment and plan as outlined in the fellow's note above. I was physically present for the critical portions of the service provided by the ID team. The management plan reflects my input. ? Marguerite Li MD Staff, Department of Infectious Disease Pager: [phone] CONSULT PROG Observed: 04/21/2018 Status: COMPLETED Source: [place] 5:[address] [facility] REPOSITORY HNO ID: [id number] Author: Francois Gann Service: Thoracic Surgery Author Type: Resident Type: Consult Progress Note Filed: 04/21/2018 7:13 AM Note Text: [facility] THORACIC SURGERY CONSULT PROGRESS NOTE Lazaro Villafana [id number] PRIMARY SERVICE: HOSPITAL DAY: # 7 INTERVAL HISTORY No acute events overnight. Pt remains off pressors. CT output was 40. PHYSICAL EXAM BP 115/61 Pulse 90 Temp (!) 38.3 ?C (100.9 ?F) (Oral) Resp 21 Ht 177.8 cm (5' 10) Wt 108 kg (238 lb 1.6 oz) SpO2 94% BMI 34.16 kg/m? Intake/Output Summary (Last 24 hours) at 04/21/18 0532 Last data filed at 04/21/18 0400 Gross per 24 hour Intake 3606 ml Output 2430 ml Net 1176 ml Constitutional: intubated, sedated HEENT: intubated Resp: VENT FiO2 40, PEEP 10;?R chest tube in place and on suction, no air leak, sanguineous output Cardiovascular: Cardiac: RR Integumentary: Warm Musculoskeletal: No deformities Neurological/Psychiatric: intubated Additional systems reviewed: No additional systems reviewed DATA Recent Labs 04/21/18 0206 04/20/18 1338 04/20/18 0134 WBC 9.75 10.03 9.01 HB 7.7* 7.9* 8.0* HCT 24.5* 24.2* 24.9* PLT 82* 66* 74* Recent Labs 04/21/18 0206 04/20/18 0134 04/19/18 0330 NA 141 143 143 K 4.2 4.1 4.0 CO2 21* 20* 20* BUN 61* 57* 58* CREAT 1.57* 1.50* 1.47* GLUC 247* 219* 159* MG 2.1 2.0 1.9 IMAGING I personally reviewed: CXR ASSESSMENT AND PLAN 52 year old male with multiple medical comorbidities now with likely partial thickness esophageal perforation, putatively from S-B tube placement at OSH. It is unlikely that this is the etiology of his massive hemoptysis, reportedly there were multiple varices that, in the background of cirrhosis is the likely etiology of his bleed. While he is requiring high doses of vasopressors, it is unlikely that the source of his shock is purely from his esophageal perforation given his lack of pleural effusion or free flowing contrast. ?04/15 EGD showed 5cm esophageal laceration without active bleeding. 04/16 Right chest tube placed for effusion. ? Plan - STRICT NPO for at least 2 weeks - continue TPN for the time being - patient would likely benefit from re-scoping some time next week, would coordinate this with GI to see if they agree; at that point most appropriate feeding options could be discussed - Do NOT manipulate NGT blindly - no acute surgical intervention indicated at this point Francois Gann MD,PhD Pager [phone] 04/21/2018 5:32 AM PROGRESS Observed: 04/21/2018 Status: COMPLETED Source: [place] 5:09 AM [facility] REPOSITORY HNO ID: [id number] Author: Villa Thomas Service: General Surgery Author Type: Resident Type: Progress Notes Filed: 04/21/2018 6:48 AM Note Text: GENERAL SURGERY PROGRESS NOTE ASSESSMENT AND PLAN 52 year old male with PMHx type II DM, poorly controlled HTN, CKD, COPD, tobacco smoker 2-3 PPD, alcohol use disorder with recent diagnosis of cirrhosis w/ esophageal varices who presents on transfer from OSH with hematemesis s/p EGD at OSH c/b esophageal laceration that appears to be contained; MELD > 20 - Continue strict NPO - No surgical intervention planned - Thoracic surgery following - possible repeat EGD - Continue supportive/SICU care - trend labs Plan to be discussed further with staff *After 6pm and on weekends please page general surgery director of early childhood education [phone]* SUBJECTIVE/INTERVAL EVENTS Remains febrile, no leukocytosis, adequate UOP, CXR w/ slight improvement in appearance of R-sided consolidation CT output 40 cc/24hrs NGT output 400 cc OBJECTIVE BP 115/61 Pulse 90 Temp (!) 38.3 ?C (100.9 ?F) (Oral) Resp 21 Ht 177.8 cm (5' 10) Wt 108 kg (238 lb 1.6 oz) SpO2 94% BMI 34.16 kg/m? Intake/Output Summary (Last 24 hours) at 04/20/18 0659 Last data filed at 04/20/18 0600 Gross per 24 hour Intake 3315 ml Output 2440 ml Net 875 ml General: sedated, ill appearing CV: RRR Pulm: ventilator Neck: no subQ emphysema/crepitus appreciated Abdomen: soft, non-distended Neuro: limited exam 2/2 sedation Labs/Imaging: CBC, BMP, MG, PHOS Recent Labs 04/21/18 0206 04/20/18 1338 04/20/18 0134 04/19/18 0330 04/18/18 0002 WBC 9.75 10.03 9.01 6.66 6.79 HB 7.7* 7.9* 8.0* 8.2* 8.1* HCT 24.5* 24.2* 24.9* 25.2* 24.1* PLT 82* 66* 74* 51* 49* NA 141 -- 143 143 142 K 4.2 -- 4.1 4.0 3.6* CHLOR 107* -- 111* 111* 109* CO2 21* -- 20* 20* 21* BUN 61* -- 57* 58* 63* CREAT 1.57* -- 1.50* 1.47* 1.80* GLUC 247* -- 219* 159* 202* CA 7.8* -- 7.7* 7.4* 7.5* MG 2.1 -- 2.0 1.9 2.2 P 2.4* -- 2.7 2.0* 2.5* Liver Function, Amylase, AND Lipase Recent Labs 04/21/18 0206 04/20/18 0144 04/20/18 0134 04/19/18 0829 04/19/18 0411 04/19/18 0330 04/19/18 0009 04/18/18 0002 TPROT 5.6* -- 5.1* -- -- 5.3* -- -- 5.5* ALB 2.2* -- 2.1* -- -- 2.1* -- -- 2.4* ALT 17 -- 14 -- -- 16 -- -- 16 AST 45* -- 37 -- -- 30 -- -- 30 ALKPHOS 65 -- 62 -- -- 56 -- -- 49 TBILI 0.8 -- 0.6 -- -- 0.6 -- -- 0.6 LACT -- 1.1 -- 0.9 1.0 -- 1.2 < > -- < > = values in this interval not displayed. Coags Recent Labs 04/18/18 0002 04/17/18 0019 04/16/18 0031 04/15/18 0500 04/15/18 0345 APTT 31.7 32.1 31.6 -- Unable to assay. Specimen improperly collected/handled. INR 1.3 1.3 1.4* 1.3 Unable to assay. Specimen improperly collected/handled. Active Hospital Problems Diagnosis Date Noted - Hypernatremia 04/20/2018 - Secondary thrombocytopenia 04/20/2018 - Acute post-operative pain 04/20/2018 - Acute respiratory insufficiency 04/20/2018 - Consolidation of right lower lobe of lung (HCC) 04/20/2018 - Secondary esophageal varices without bleeding (HCC) 04/20/2018 - Tobacco abuse 04/20/2018 - Acute blood loss anemia 04/20/2018 - Mediastinitis 04/20/2018 - Fever 04/20/2018 - Leukocytosis 04/20/2018 - Mild protein-calorie malnutrition (HCC) 04/17/2018 - Esophageal perforation 04/14/2018 - Alcoholic cirrhosis (HCC) 04/14/2018 - Hyperglycemia 04/14/2018 - COPD (chronic obstructive pulmonary disease) (HCC) 04/14/2018 Chronic Villa Thomas MD PGY-1, General Surgery Acute Care Surgery: [id number] XR CHEST 1V FRONTAL Observed: 04/21/2018 Status: F Source: [facility] 3:52 AM [facility] REPOSITORY * * *Final Report* * * DATE OF EXAM: Apr 21 2018 3:52AM [facility] 5376 - XR CHEST 1V FRONTAL PORT / PROCEDURE REASON: Acute respiratory illness * * * * Physician Interpretation * * * * EXAMINATION: CHEST RADIOGRAPH (PORTABLE SINGLE VIEW AP) Exam Date/Time: 04/21/2018 3:52 AM Clinical History: Acute respiratory illness, MQ: XCPMC_5 Comparison: 1 day prior RESULT: See impression. IMPRESSION: Lines, tubes, and devices: Stable life-support devices. Lungs and pleura: Stable to increased lung volume. Persistent opacities, suggestive of right pleural effusion, associated atelectasis and left perihilar heterogeneous opacities. Other processes such as edema, aspiration or infection not excluded if clinical picture fits. Cardiomediastinal silhouette: Presumed stable cardiomediastinal structures, with indistinct right cardiac mediastinal border. Other: . Steel Turner: PSCB Transcribe Date/Time: Apr 21 2018 8:43A Dictated by : ARABELLA CRUZ MD This examination was interpreted and the report reviewed and electronically signed by: ARABELLA CRUZ MD on Apr 21 2018 8:44AM EST [id number] CBC Collected: 04/21/2018 Status: F Source: [place] 2:06 AM [facility] REPOSITORY TYPE CODE TESTS RESULT OUT OF REFERENCE UNITS RANGE LAB WBC 3.70-11.00 k/uL WBC 9.75 LAB RBC 4.20-6.00 m/uL Low RBC 2.67 LAB HGB 13.0-17.0 g/dL Low Hemoglobin 7.7 LAB HCT 39.0-51.0 % Low Hematocrit 24.5 LAB MCV 80.0-100.0 fL MCV 91.8 LAB MCH 26.0-34.0 pG MCH 28.8 LAB MCHC 30.5-36.0 g/dL MCHC 31.4 LAB RDWCV 11.5-15.0 % RDW-CV High 16.1 LAB PLTCT 150-400 k/uL Low Platelet Count 82 Result Comment: No clot detected. LAB MPV 9.0-12.7 fL MPV 11.9 LAB ABSNUC <0.01 k/uL High Absolute nRBC 0.02 Performed By: #### CBC, CMP, MG1, PHOS #### [facility] [address] [place], [place] [address] COMP METABOLIC PANEL Collected: 04/21/2018 Status: F Source: [place] 2:06 AM [facility] REPOSITORY TYPE CODE TESTS RESULT OUT OF REFERENCE UNITS RANGE LAB TP 6.3-8.0 g/dL Low Protein, Total 5.6 LAB ALB 3.9-4.9 g/dL Low Albumin 2.2 LAB CA 8.5-10.2 mg/dL Low Calcium, Total 7.8 LAB TBIL 0.2-1.3 mg/dL Bilirubin, Total 0.8 LAB ALKP 38-113 U/L Alkaline Phosphatase 65 LAB AST 14-40 U/L AST High 45 LAB GLU 74-99 mg/dL Glucose High 247 Result Comment: The [place] [employer] (ADA) provides guidance for cutoff values for fasting glucose and random glucose. The ADA defines fasting as no caloric intake for at least 8 hours. Fas ting plasma glucose results between 100 to 125 mg/dL indicate increased risk for diabetes (prediabetes). Fasting plasma glucose results greater than or equal to 126 mg/dL meet the criteria for diagnosis of diabetes. In the absence of unequivocal hyperglycemia, results should be confirmed by repeat testing. In a patient with classic symptoms of hyperglycemia or hyperglycemic crisis, random plasma glucose results greater than or equal to 200 mg/dL meet the criteria for diagnosis of diabetes. Reference: Standards of Medical Care in Diabetes 2016, [place] [employer]. Diabetes Care. 2016.39(Suppl 1). LAB BUN 9-24 mg/dL BUN High 61 LAB CRET 0.73-1.22 mg/dL Creatinine High 1.57 LAB NA 136-144 mmol/L Sodium 141 LAB K 3.7-5.1 mmol/L Potassium 4.2 LAB CL 97-105 mmol/L Chloride High 107 LAB CO2 22-30 mmol/L Low CO2 21 LAB AGAP 9-18 mmol/L Anion Gap 13 LAB ALT 10-54 U/L ALT 17 LAB GFRAA eGFR- Amer. 57 LAB GFRNAA . eGFR-All Other Races 47 Result Comment: eGFR (Estimated GFR) Units of measure: mL/min/1.73 meters squared eGFR is derived from the reexpressed MDRD Study equation using the following parameters: serum creatinine, age, gender and race. The creatinine assay has been calibrated to be traceable to IDMS. An eGFR <60 mL/min/1.73m2 for >3 months is consistent with chronic kidney disease. Refer to KDOQI guidelines for clinical interpretation. In patients with unstable renal function, e.g. those with acute kidney injury, the eGFR may not accurately reflect actual GFR. Performed By: #### CBC, CMP, MG1, PHOS #### [facility] [address] [place] [address] MAGNESIUM Collected: 04/21/2018 Status: F Source: [place] 2:06 AM [facility] REPOSITORY TYPE CODE TESTS RESULT OUT OF REFERENCE UNITS RANGE LAB MG 1.7-2.3 mg/dL Magnesium 2.1 Performed By: #### CBC, CMP, MG1, PHOS #### [facility] [address] [place] [address] PHOSPHORUS Collected: 04/21/2018 Status: F Source: [place] 2:06 AM [facility] REPOSITORY TYPE CODE TESTS RESULT OUT OF REFERENCE UNITS RANGE LAB PHOS 2.7-4.8 mg/dL Low Phosphorus 2.4 Performed By: #### CBC, CMP, MG1, PHOS #### [facility] [address] [place], [place] [address] THERAPY NT Observed: 04/20/2018 Status: COMPLETED Source: [place] 5:[address] [facility] REPOSITORY HNO ID: [id number] Author: Amy GhoshOt/Julio) Cheryl Service: Occupational Therapy Author Type: Occupational Therapist Type: Therapy (PT/OT/Speech/Resp) Filed: 04/20/2018 5:28 PM Note Text: OCCUPATIONAL THERAPY MISSED VISIT SERVICE DATE: 04/20/2018 SERVICE TIME: 911 to 911 ROOM: [place] [address] Attempted Evaluation. Patient not seen due to Illness, sedated this AM. Will attempt again as schedule permits. SIGNATURE: AMY LANG, JASPREET/Julio PATIENT NAME: Lazaro Villafana DATE: April 20, 2018 TIME: 5:28 PM XR CHEST 1V FRONTAL Observed: 04/20/2018 Status: F Source: [facility] 3:43 PM [facility] REPOSITORY * * *Final Report* * * DATE OF EXAM: Apr 20 2018 3:43PM [facility] 5376 - XR CHEST 1V FRONTAL PORT / PROCEDURE REASON: Post-operative / post-procedure assessment, asymptomatic * * * * Physician Interpretation * * * * EXAMINATION: CHEST RADIOGRAPH (PORTABLE SINGLE VIEW AP) Exam Date/Time: 04/20/2018 3:43 PM Clinical History: Post-operative / post-procedure assessment, asymptomatic, MQ: XCPMC_5 Comparison: Same day RESULT: See impression. IMPRESSION: Lines, tubes, and devices: Stable Lungs and pleura: Bilateral edema or infiltrates have mildly worsened or become accentuated by lower lung volume. Underlying small right pleural effusion remains suspected. There is blunting of the left CP angle which may represent tiny effusion or pleural thickening. Cardiomediastinal silhouette: Stable cardiomediastinal silhouette. Other: . Steel Turner: PSCB Transcribe Date/Time: Apr 20 2018 4:04P Dictated by : MELISSA RAHMAN MD This examination was interpreted and the report reviewed and electronically signed by: MELISSA RAHMAN MD on Apr 20 2018 4:05PM EST [id number] Observed: 04/20/2018 Status: F Source: [place] RESPIRATORY CULT/STAIN 2:53 PM [facility] REPOSITORY Sp. Request/Comment: - Specimen received in sterile container. Smear Result - No organisms seen No Polymorphonuclear Leukocytes Culture Result - No growth 2 days Performed By: #### RCULST #### [facility] [address] [place], [place] [address] THERAPY NT Observed: 04/20/2018 Status: COMPLETED Source: [place] 2:48 PM [facility] REPOSITORY HNO ID: [id number] Author: Ekaterina (Pt) Sagrario Service: Physical Therapy Author Type: Physical Therapist Type: Therapy (PT/OT/Speech/Resp) Filed: 04/20/2018 2:49 PM Note Text: PHYSICAL THERAPY MISSED VISIT SERVICE DATE: 04/20/2018 SERVICE TIME: 1448 to 1448 ROOM: [place] [address] Attempted Evaluation. Patient not seen d/t bedside procedure (bronchoscopy) and d/t following minimal/no commands off sedation per power saw operator today. Will reattempt as medically able to participate with PT. SIGNATURE: Ekaterina Zabala PT PATIENT NAME: Lazaro Villafana DATE: April 20, 2018 TIME: 2:49 PM PROCEDURE Observed: 04/20/2018 Status: COMPLETED Source: [place] 2:40 PM [facility] REPOSITORY HNO ID: [id number] Author: Aidan Alas Service: Critical Care Author Type: Anesthesiologist Type: Procedures Filed: 04/20/2018 3:26 PM Note Text: BEDSIDE PROCEDURE NOTE BRONCHOSCOPY Date/Start Time: 04/20/2018 3:21 PM Performed by: MIGUEL ISIDRO (RES) Authorized by: AIDAN ALAS Consent/[place] Protocol Written Consent Obtained: Yes Sign In Communication: Completed Time Out completed: Team confirms correct patient, procedure, side/site, position (if applicable) and completion AND review of fire risk assessment/protocols (if appropriate) Affirmation of Time Out: Yes Sign Out Discussion: Yes Pre-procedure Details: Personnel directly involved with the procedure wore the appropriate PPE. PPE Used: Mask with eye shield and cap Medications: Muscle relaxant and sedation Muscle Relaxant (see MAR): Rocuronium Sedation (see MAR): Propofol Procedure Details: Type: Standard Indication: Atelectasis The bronchoscope was introduced via endotracheal tube. Maneuvers Performed: BAL BAL - Location: Right middle lobe and right lower lobe BAL - Instilled Volume (mL): 5 BAL - Returned Volume (mL): 5 BAL - Returned Fluid Description: Thin and cloudy Bronchoscopy Abnormal Findings: RLL and RML were easily collapsible on low suction. Post-procedure Details: Patient tolerated the procedure well with no immediate complications Estimated Blood Loss: None Specimens Sent: ID-BAL Comments: updated on results. Findings are consistent with this being an interstitial process, perhaps secondary to the mediastinitis. SIGNATURE: Aidan Alas MD PATIENT NAME: Lazaro Villafana DATE: April 20, 2018 TIME: 3:21 PM PAGER/CONTACT #: Resident performed the procedure. I was present for this procedure. This is exclusive of critical care time. NURSING PROG Observed: 04/20/2018 Status: COMPLETED Source: [place] 2:35 PM [facility] REPOSITORY HNO ID: [id number] Author: Haydee GhoshRn) BLAYNE Graf Service: (none) Author Type: Registered Nurse Type: Nursing Progress Note Filed: 04/20/2018 2:49 PM Note Text: Nursing Progress Note Patient Name: Lazaro Villafana Patient Location: [place] [address]- Daily Note: 1437: 20 mg rocuronium given, 50 mg propofol bol[facility] at bedside. 1440: scope in 1442: 50 mcg fentanyl given 1447: scope out This note was completed by: Haydee Graf RN Observed: 04/20/2018 Status: F Source: [place] BLOOD CULTURE 2:19 PM [facility] REPOSITORY Culture Result - No growth 5 days Performed By: #### BLCUL #### [facility] [address] [place], [place] [address] PROGRESS Observed: 04/20/2018 Status: COMPLETED Source: [place] 1:52 PM [facility] REPOSITORY HNO ID: [id number] Author: Aidan Alas Service: Critical Care Author Type: Anesthesiologist Type: Progress Notes Filed: 04/20/2018 3:21 PM Note Text: ICU STAFF -- AIDAN ALAS REASON FOR ICU ADMISSION AND PERTINENT RECENT HISTORY Critically ill 52 year old male presented to OSH on 04/14/18 with hematemesis which was temporized with a Sengstaken-Tony tube. A subsequent EGD showed esophageal varices without active bleeding, old blood in stomach, normal duodenum, and a large clot over a esophageal perforation/tear [linear, partial thickness esophageal laceration from 31-37 cm from incisors]. He was transferred to [facility] on 04/14/18 for further management. Thoracic surgery is following the patient and is planning conservative management given that CT scan shows partial thickness esophageal tear without active mediastinal or pleural extravasation. Patient is s/p EGD on 04/15/18 which showed evidence of hematin and blood clots in both esophagus and stomach; deep esophageal tear previously described noted ~5 cm in length. Defer placement of esophageal stent. Thoracic surgery placed R sided CT on 04/17 given changing ventilator requirements. There was approximately 400 cc of serosanguinous fluid drained with significant improvement in oxygenation requirements. There was not significant change in the imaging. Notable PMHx: type II DM, poorly controlled HTN, CKD, COPD, tobacco smoker 2-3 PPD, alcohol use disorder with a recent diagnosis of cirrhosis, reported + PPD in the past but currently no clinical or imaging evidence of active pulmonary TB Subjective: fevers overnight, intermittent agitation Objective: Physical exam: BP 114/62 Pulse 80 Temp 37.4 ?C (99.3 ?F) (Oral) Resp 19 Ht 177.8 cm (5' 10) Wt 108 kg (238 lb 1.6 oz) SpO2 99% BMI 34.16 kg/m? Weight change: -0.7 kg (-1 lb 8.7 oz) 1. HEENT: normocephalic 2. Neck: midline trachea 3. Lungs: bilateral chest rise; R CT in place (no leak noted) 4. Heart: S1:+ S2:+ 5. Abdomen: soft 6. Extremities: 1+ edema; 2+ edema RUE 7. Skin: WWP 8. Neurological: sedated on propofol Mechanical ventilation: Mode: PSV FiO2: 40 Vt(ml): 593 PEEP(cm): 10 Lab: CBC, Coags, BMP, Mg, Phos Recent Labs 04/20/18 0144 04/20/18 0134 04/19/18 0829 04/19/18 0411 04/19/18 0330 04/18/18 0002 WBC -- 9.01 -- -- 6.66 -- 6.79 HB -- 8.0* -- -- 8.2* -- 8.1* HCT -- 24.9* -- -- 25.2* -- 24.1* PLT -- 74* -- -- 51* -- 49* INR -- -- -- -- -- -- 1.3 APTT -- -- -- -- -- -- 31.7 NA -- 143 -- -- 143 -- 142 K -- 4.1 -- -- 4.0 -- 3.6* CHLOR -- 111* -- -- 111* -- 109* CO2 -- 20* -- -- 20* -- 21* BUN -- 57* -- -- 58* -- 63* CREAT -- 1.50* -- -- 1.47* -- 1.80* GLUC -- 219* -- -- 159* -- 202* IC 1.20 -- 1.13 1.15 -- < > -- CA -- 7.7* -- -- 7.4* -- 7.5* MG -- 2.0 -- -- 1.9 -- 2.2 P -- 2.7 -- -- 2.0* -- 2.5* < > = values in this interval not displayed. ABGs Recent Labs 04/20/18 0144 04/19/18 0804/19/18 041 PH 7.38 7.41 7.45 PCO2 36 34 33* PO2 73* 110* 82* BE NEG 4 NEG 2 NEG 1 HCO3 21* 21* 22 CO2CT 22 22 23 O2HB 93* 97 94* COHB 1.7 1.3 0.9 MHGB 0.0* 0.6 1.0 TEMP 37.0 37.0 37.0 PHTC 7.38 7.41 7.45 PCO2T 36 34 33* PO2T 73 110 82 CXR: pleural effusion, consolidation noted on the right Fluids: Intake/Output Summary (Last 24 hours) at 04/20/18 0659 Last data filed at 04/20/18 0600 Gross per 24 hour Intake 3315 ml Output 2440 ml Net 875 ml Daily Assessments: Restraints- yes Central Access- yes Sedation interruption- yes Mcclain catheter required for clinical management- yes Assessment: Critically ill Patient Active Hospital Problem List: Hyperglycemia (04/14/2018) Alcoholic cirrhosis (HCC) (04/14/2018) COPD (chronic obstructive pulmonary disease) (HCC) (04/14/2018) Esophageal perforation (04/14/2018) Mild protein-calorie malnutrition (HCC) (04/17/2018) Hypernatremia (04/20/2018) Secondary thrombocytopenia (04/20/2018) Acute post-operative pain (04/20/2018) Acute respiratory insufficiency (04/20/2018) Consolidation of right lower lobe of lung (HCC) (04/20/2018) Secondary esophageal varices without bleeding (HCC) (04/20/2018) Tobacco abuse (04/20/2018) Acute blood loss anemia (04/20/2018) Mediastinitis (04/20/2018) Fever (04/20/2018) Leukocytosis (04/20/2018) Plan: ABx were broadened today per ID recommendations to include vancomycin. There is concern that with the increasing WBC and fever curve to broaden ABx. Repeat BCx will be obtained. We will send any sample for SCx we obtain from bronchoscopy today. Bronchoscopy is indicated given the degree of RLL collapse. There does not seem to be much improvement in the CXR post-chest tube placement. The tube is draining. There is still a significant need for ventilatory support. I have explained this to the via phone [phone]. There does not seem to be much evidence which correlates with ETOH withdrawal. His does not seem to suggest any ETOH abuse in the last 2-3 weeks. We will watch closely. HyperNa will be addressed with added free water in TPN. Hold SQH another day until PLT count shows an uptrend. RUE swelling noted - will order U/S to r/o DVT Prophylaxis: DVT: SCDs Stress gastritis: pantoprazole BID I have personally examined the patient today for an aggregate of 41 min of critical care time. I have examined the patient and reviewed lab data and x-rays. I have evaluated the hemodynamic and respiratory data, ECG, prescribed IV fluids, adjusted mechanical ventilation, assessed antibiotic therapy, prescribed nutritional and/or metabolic support. This care required my full attention and direct personal management in prevention of imminent clinical deterioration. Thank you for letting me follow this patient. SIGNATURE: Aidan lAas MD DATE: April 20, 2018 TIME: 1:53 PM Observed: 04/20/2018 Status: F Source: [place] BLOOD CULTURE 1:48 PM [facility] REPOSITORY Culture Result - No growth 5 days Performed By: #### BLCUL #### [facility] [address] [place], [place] [address] CBC AND DIFFERENTIAL Collected: 04/20/2018 Status: F Source: [place] 1:38 PM [facility] REPOSITORY TYPE CODE TESTS RESULT OUT OF REFERENCE UNITS RANGE LAB WBC 3.70-11.00 k/uL WBC 10.03 LAB RBC 4.20-6.00 m/uL Low RBC 2.66 LAB HGB 13.0-17.0 g/dL Low Hemoglobin 7.9 LAB HCT 39.0-51.0 % Low Hematocrit 24.2 LAB MCV 80.0-100.0 fL MCV 91.0 LAB MCH 26.0-34.0 pG MCH 29.7 LAB MCHC 30.5-36.0 g/dL MCHC 32.6 LAB RDWCV 11.5-15.0 % RDW-CV High 16.4 LAB PLTCT 150-400 k/uL Low Platelet Count 66 Result Comment: No clot detected. LAB MPV 9.0-12.7 fL MPV 11.1 LAB ANEUT % Neut% 85.0 LAB AANEUT 1.45-7.50 k/uL Abs Neut 8.53 High LAB ALYMP % Lymph% 8.0 LAB AALYMP 1.00-4.00 k/uL Abs Lymph 0.80 Low LAB AMONO % Hendry% 7.0 LAB AAMONO <0.87 k/uL Abs Hendry 0.70 LAB AEOS % Eosin% 0.0 LAB AAEOS <0.46 k/uL Abs Eosin 0.00 LAB ABASO % Baso% 0.0 LAB AABASO <0.11 k/uL Abs Baso 0.00 LAB ABIMMG k/uL 8.53 ANC(includeSEG+BAND ) LAB ANIIMI Anisocytosis Present LAB POLIMI Polychromasia Slight LAB PLTEST Platelet Estimate Platelet estimate decreased LAB DTYP DTYPE Manual Diff Performed By: #### CBCDIF #### [facility] [address] [place], [place] [address] XR CHEST 1V FRONTAL Observed: 04/20/2018 Status: F Source: [facility] 1:[address] [facility] REPOSITORY * * *Final Report* * * DATE OF EXAM: Apr 20 2018 1:07PM [facility] [id number] - XR CHEST 1V FRONTAL PORT / PROCEDURE REASON: Post-operative / post-procedure assessment, symptomatic * * * * Physician Interpretation * * * * EXAMINATION: CHEST RADIOGRAPH (PORTABLE SINGLE VIEW AP) Exam Date/Time: 04/20/2018 1:07 PM Clinical History: Post-operative / post-procedure assessment, symptomatic, MQ: [id number] Comparison: 1 day prior RESULT: See impression. IMPRESSION: Lines, tubes, and devices: Endotracheal tube, NG/OG tube, right chest tube and right IJ venous catheter are in place. Lungs and pleura: Hazy opacity overlies the right mid to lower lung, likely related to layering right pleural effusion. No definite pneumothorax is identified, although small pockets of right basilar pneumothorax are possible. Patchy opacities in mid to lower lungs may be related to edema or pneumonia. Cardiomediastinal silhouette: Cardiomediastinal silhouette is mildly enlarged. Other: . Steel Turner: NIDHI Transcribe Date/Time: Apr 20 2018 1:38P Dictated by : RAJNI SELLERS MD This examination was interpreted and the report reviewed and electronically signed by: RAJNI SELLERS MD on Apr 20 2018 1:39PM EST [id number] Observed: 04/20/2018 Status: COMPLETED Source: [place] 1:[address] [facility] REPOSITORY HNO ID: [id number] Author: Nima Grimes Service: Critical Care Author Type: Resident Type: Progress Notes Filed: 04/20/2018 1:58 PM Note Text: SURGICAL INTENSIVE CARE UNIT PROGRESS NOTE SERVICE DATE: April 20, 2018 SERVICE TIME: 1:03pm Subjective Mr.?Howard Villafana is a 52-year-old male with PMHx type II DM, poorly controlled HTN, CKD, COPD, tobacco smoker 2-3 PPD, alcohol use disorder with recent diagnosis of cirrhosis was transferred from [facility] with an esophageal perforation seen on EGD. Patient initially presented with hematemesis and melena with accompanying dizziness and shortness of breath. Now being admitted to the SICU for surgical evaluation and hemodynamic monitoring. Objective VITAL SIGNS Temp: 37.4 ?C (99.3 ?F) Pulse: 80 BP: 114/62 MAP Non Invasive (Mean Arterial Pressure): 81 Resp: 19 SpO2: 99 % Not applicable Current Facility-Administered Medications: acetaminophen 650 mg suppository (TYLENOL) 650 mg RECTAL q 4 H PRN albuterol 2.5 mg/0.5 mL 2.5 mg nebulizer solution (PROVENTIL) 2.5 mg INHALATION q 4 H PRN cefepime 2 g in D5W 100 mL MB+ (MAXIPIME) 2 g INTRAVENOUS q 8 HR Chlorhexidine Gluconate 0.12 % 15 mL (PERIDEX) 15 mL ORAL QID dextrose 40 % 15 g 15 g ORAL PRN Or glucagon 1 mg injection (GLUCAGEN) 1 mg INTRAMUSCULAR PRN Or dextrose 50 % 12.5 g injection 12.5 g INTRAVENOUS PRN fentaNYL 50 mcg/mL 25-50 mcg injection (SUBLIMAZE) 25-50 mcg INTRAVENOUS q 1 H PRN fluconazole 200 mg in NaCl (iso-osmotic) 100 mL (DIFLUCAN) 200 mg INTRAVENOUS DAILY heparin 5,000 Units injection 5,000 Units SUBCUTANEOUS q 12 H insulin glargine 18 Units pen (long acting) (LANTUS SOLOSTAR, BASAGLAR KWIKPEN) 18 Units SUBCUTANEOUS AT BEDTIME insulin lispro injection (rapid acting) (HumaLOG) SUBCUTANEOUS q 6 H ipratropium-albuterol 3 mL nebulizer solution (DUONEB) 3 mL INHALATION q 4 H PRN lactated ringers infusion 5-30 mL/hr INTRAVENOUS CONTINUOUS magnesium sulfate in water 2 g in sterile water 50 ml 2 g INTRAVENOUS PRN metroNIDAZOLE 500 mg PREMIX piggyback (FLAGYL) 500 mg INTRAVENOUS q 8 H NaCl 0.9% 3-5 mL 3-5 mL INTRAVENOUS q 12 H octreotide 500 mcg in D5W 100 mL (SandoSTATIN) 50 mcg/hr INTRAVENOUS CONTINUOUS pantoprazole 40 mg injection (PROTONIX) 40 mg INTRAVENOUS BID AC (0600/1600) Parenteral Nutrition - Adult INTRAVENOUS ONCE TPN (2200 START) potassium chloride iv piggyback 20 mEq/100 mL 20 mEq INTRAVENOUS PRN Or potassium chloride 20-80 mEq CUP 20-80 mEq ORAL/FEEDING TUBE PRN propofol infusion (DIPRIVAN) 5-60 mcg/kg/min INTRAVENOUS CONTINUOUS sodium glycerophosphate 15 mmol in D5W 250 mL (GLYCOPHOS) 15 mmol INTRAVENOUS PRN Or sodium glycerophosphate 30 mmol in D5W 250 mL (GLYCOPHOS) 30 mmol INTRAVENOUS PRN Or sodium glycerophosphate 45 mmol in D5W 250 mL (GLYCOPHOS) 45 mmol INTRAVENOUS PRN vancomycin 1.5 g in D5W 250 mL (VANCOCIN) 1.5 g INTRAVENOUS q 12 HR vancomycin dosing and monitoring per pharmacy OTHER As Directed Cardiovascular: Regular rhythm Abdomen: Soft and Nontender Extremities: Mild pedal edema Neuro: Sedated Intake/Output Summary (Last 24 hours) at 04/20/18 1303 Last data filed at 04/20/18 1200 Gross per 24 hour Intake 3315 ml Output 2510 ml Net 805 ml Current Weight: Weight: 108 kg (238 lb 1.6 oz) Admission Weight: Weight: 106.1 kg (233 lb 14.5 oz) RESPIRATORY Mechanical Ventilation: Vent Mode: PSV Freq (bpm): 18 PS (cmH20): 8 PEEP / CPAP (cmH20): 10 FIO2 (%): 40 Recent Labs 04/20/18 0144 04/19/18 0829 PH 7.38 7.41 PO2 73* 110* PCO2 36 34 BE NEG 4 NEG 2 HCO3 21* 21* LACT 1.1 0.9 CXR Findings: There is a partially loculated medium-size right pleural effusion with adjacent airspace consolidation, either aspiration/pneumonia. ?Patchy opacities are in the left lung. ?Findings are essentially stable from the prior exam. ?No large pneumothorax is identified. INFUSION(S): Propofol Patient Lines Assessed: Lines, Drains, and Airways Line Arterial Line 04/14/18 2320 Arterial Line Left Radial 5 days Central Line Triple Lumen 04/14/18 2319 Non-tunneled Right Neck 5 days Peripheral 04/14/18 2344 Left Antecubital 18 Gauge 5 days Drain GI Feed/Drain 04/14/18 2319 Nasogastric Left Naris 16 Fr 5 days Indwelling Urinary Catheter 04/14/182113 Admission to Hospital [facility] 5 days Chest Tube 04/16/18 2100 Right 28 Fr 3 days Airway Airway Endotracheal Tube 04/14/182114 5 days Diagnostic tests reviewed for today's visit: Most recent labs and imaging results. Assessment/Plan Neuro:? -- tachypnea requiring intubation at OSH -- On propofol gtt. -- per , he previously drank 3 cider ales daily up until 1 month ago, around when he learned about his cirrhosis diagnosis. She notes that he had 2 drinks on 04/13. ? ? CV:? -- Goal MAP >65 - CXR this am - partially loculated medium-size right pleural effusion with adjacent airspace consolidation, stable from prior exam. - Repeat CXR after RT treatment - lactate 1.1 ? Pulm:??Hx of COPD. Intubated. Vent Mode: Vent Mode: PSV Freq (bpm): 18 PS (cmH20): 8 PEEP / CPAP (cmH20): 10 FIO2 (%): 40 --Continue home bronchodilators --duonebs prn -- Chest tube output 150cc over 24 hrs - will maintain wall suction. Continue intubation ? Renal:??(baseline Cr ~1.2 from 02/2018) -- LIANE; most likely pre-renal.?Cr 1.5 , downtrending --Monitor Cr and I/Os --[facility] ? GI:?Likely partial thickness esophageal perforation. Presented from OSH on 04/14 with hematemesis, melena dizziness and SOB. EtOH cirrhosis with portal HTN, grade 2 esophageal varices -- EGD at OSH showed no mediastinal air -- 04/15 CT chest/abd/pel - mid distal esophageal tear 5.4cm from T6-T8. Small amount of enteric contrast extravasation and pneumomediastinum. - 04/15 EGD by GI - deep esophageal tear, not amenable to esophageal stenting --Pantoprazole for GI ppx and ocreotide gtt for at least 7 days (started 04/14) per GI --NPO, TPN - TPN adjusted for more volume due to hypernatremia --NGT positioned by GI - DO NOT MANIPULATE BLINDLY -- thoracic does not recommend open surgical intervention. Perforation appears to be contained. Likely iatrogenic tear from prior tube placement. -- potential mediastinitis ? Heme:? -- Hgb 8.0 -- thrombocytopenia. Will watch for signs of bleeding and need?for further transfusion --Transfuse to keep Hgb >7 ? Fluid/Electrolyte/Nutrition: --NPO --Replete lytes as one time dosing -- TPN ? Endo:?Hx of IDDM, HgbA1c 8.2. - BG goal 130-180 - Started lantus yesterday --Continue insulin gtt ? ID:?Esohageal tear and perforation. aztreonam and flagyl at OSH -Intermittent low grade fevers - MSSA PCR positive - MRSA PCR negative -Started Vancomycin per ID recs to cover for GPC -WBC 9.01 -BCx, UA - 04/17 ? -Concern for mediastinitisis. ? Cultures/labs: - 04/14 blood culture - NGTD - 04/17 blood culture - NGTD - 04/17 UA - no indication of UTI - 04/14 TB blood screen - negative - 04/14 procalcitonin 2.67 ? - empiric coverage with cefepime, fluconazole, flagyl, vanco - end date in 1 month - allergy consult for skin test ? - ID following, appreciate recs ? PPX:? - GI ppx - pantoprazole - VTE ppx - held due to thrommbocytopenia ? Medication and Non-Pharmacologic VTE Prophylaxis/Anticoagulants Anticoagulant AND Antiplatelet Medications Start Dose Route Frequency Ordered Stop 04/20/18 1300 heparin 5,000 Units injection 5,000 Units SUBCUTANEOUS EVERY 12 HOURS 04/20/18 1249 -- 04/14/18 2100 pneumatic compression stockings ([place], [place]) 04/14/18 2100 activity - mobilize patient ([place], [place]) VTE Prophylaxis: VTE prophylaxis appropriate SIGNATURE: Nima Grimes MD, PGY-1 resident PATIENT NAME: Lazaro Villafana DATE: April 20, 2018 TIME: 1:03 PM PAGER/CONTACT #: CONSULT PROG Observed: 04/20/2018 Status: COMPLETED Source: [place] 12:[address] [facility] [place] REPOSITORY O ID: [id number] Author: Bette Niño (Pharmacist) Service: Pharmacy Author Type: Pharmacist Type: Consult Progress Note Filed: 04/20/2018 12:59 PM Note Text: PHARMACY VANCOMYCIN DOSING NOTE Patient Name: Lazaro Villafana Admission Date: 04/14/2018 Date of Consult: 04/20/2018 Time of Consult: 12:58 PM Indication: Pneumonia Goal Range: 10-20 mcg/mL RECOMMENDATIONS/PLAN: Pharmacy consulted for vancomycin dosing for Lazaro Villafana, a 52 year old, male who is being treated with vancomycin for pneumonia. 1. Patient is currently ordered Vancomycin 1.5 g IV q12h. Today is day 1 of therapy. 2. No vancomycin level has been drawn for this dosing regimen. 3. The present dose of vancomycin is the recommended dosage for this patient at this time. Continue therapy as prescribed. 4. The next vancomycin level will be ordered for 04/24 unless clinically indicated sooner. (Pharmacy will order) We will follow patient renal function, vancomycin levels and doses with you during the course of therapy. Additional recommendations will appear in follow up notes. If you have any questions, please contact Bette Niño PharmD at [phone]. Age: [age] year old Allergies: ALLERGIES Allergen Reactions - Ciprofloxacin Unknown - Penicillin Unknown Tolerating cefepime Last 3 Encounter Wt Readings: Date: Wt: 04/14/2018 108 kg (238 lb 1.6 oz) 04/14/2018 97 kg (213 lb 13.5 oz) Last 1 Encounter Ht Readings: Date: Ht: 04/14/2018 177.8 cm (5' 10) CrCl: 70 mL/min Temp (24hrs), Av.1 ?C (100.6 ?F), Min:37 ?C (98.6 ?F), Max:38.9 ?C (102 ?F) - Current Temp: 37.4 ?C (99.3 ?F) Labs BUN (mg/dL) Date Value 04/20/2018 57 (H) 04/19/2018 58 (H) 04/18/2018 63 (H) Creatinine (mg/dL) Date Value 04/20/2018 1.50 (H) 04/19/2018 1.47 (H) 04/18/2018 1.80 (H) WBC (k/uL) Date Value 04/20/2018 9.01 04/19/2018 6.66 04/18/2018 6.79 Vancomycin Levels: No results found for: LIZ Niño PharmD Cardiology Clinical Specialist CASE MANAGEM Observed: 04/20/2018 Status: COMPLETED Source: [place] 12:45 PM [facility] REPOSITORY HNO ID: [id number] Author: Rai Kramer RN Service: Care Management Author Type: Registered Nurse Type: Care Mgt Progress Note Filed: 04/20/2018 12:49 PM Note Text: CARE MANAGEMENT PROGRESS NOTE SERVICE DATE: 04/20/2018 SERVICE TIME: 12:45 PM LOS: 6 days Patient remains in SICU intubated and sedated, NPO on TPN and Octreotide as well as antibiotics per ID. Continues with NG and right chest tube. Temp max to 38.9, per ID for add'l blood cultures, repeat CBC/diff and sputum. Per Surgery no surgical intervention planned for the esophageal lacerating that appears contained. Per CTS patient would likely benefit from re-scoping some time next week, would coordinate this with GI to see if they agree. Laser Specialist to follow for discharge planning pending POC and medical stability. Needs Prior to Discharge: To Be Determined SIGNATURE: Rai Kramer RN PATIENT NAME: Lazaro Villafana DATE: April 20, 2018 TIME: 12:45 PM PAGER/CONTACT #: [phone] NUTRITION Observed: 04/20/2018 Status: COMPLETED Source: [place] 12:02 PM [facility] REPOSITORY HNO ID: [id number] Author: Sari Weston Service: NST-Nutrition Support Team Author Type: Registered Dietitian Type: Nutrition Filed: 04/20/2018 12:24 PM Note Text: NUTRITION SUPPORT TEAM PROGRESS NOTE SERVICE DATE: 04/20/2018 SERVICE TIME: 1107 RECOMMENDED DIAGNOSIS: MILD PROTEIN-CALORIE MALNUTRITION per Registered Dietitian on 04/17/2018 NUTRITION CARE PLAN Intervention: 1. Continue TPN with incr volume/free water, reduce protein - PN to provide 100gms 15% AA, 600 dextrose calories, 1.8L at 75ml/hr - orders pended with added MgSO4, incr KPhos, incr K+ acetate, MVI, MTE, 20-35u insulin (1:5 ratio), 100mg thiamine - adjust PN calories with propofol infusion. PN meeting minimum calories with current propofol rate 2. Defer 250ml IVPB lipids 20% fat emulsion with propofol Monitor and Evaluation: Goal: Meet >75% of estimated needs Monitor fluid/electrolyte balance Monitor labs, I/Os, vital signs, weight Discharge Nutrition Recommendations: To be determined Per HPI: 52 year old male with a history of type II DM, poorly controlled HTN, CKD, COPD, tobacco smoker 2-3 PPD, alcohol use disorder with recent diagnosis of cirrhosis was transferred from [facility] with an esophageal perforation seen on EGD. Patient initially presented with hematemesis and melena with accompanying dizziness and shortness of breath. Transferred to [facility] S[facility] on 04/14 for further management. s/p EGD 04/15 which showed a deep esophageal tear. Plan for a minimum of NPO x 2 weeks. 04/16 Right chest tube placed for effusion. Interval History: Plan to increase PN volume tonight. NG with 450ml output past 24hours. Plan to stop octreotide tomorrow. Pt is febrile with Tmax: 38.9 Resp: intubated I/O's: Intake/Output Summary (Last 24 hours) at 04/20/18 1207 Last data filed at 04/20/18 1100 Gross per 24 hour Intake 3315 ml Output 2445 ml Net 870 ml overall +8079.2 Abdomen: not assessed Last BM: 04/18 Enteral access: n/a; NG to low suction with 450ml output past 24 hours Parenteral access: right IJ TLC placed 04/14 Labs: hyperchloremia, hypocapnia, PO4 improved/suboptimal, lactate 1.1, ionized calcium 1.20 Blood Gases: pH 7.38, pCO2 36, HCO3 21 Blood sugars: 231, 203 Cultures: blood cx x 2 no growth x 3 days Imaging: n/a Nutritional Intake: Intake History BI DATA ARCHITECT: Unable to determine Current intake: 04/17: Average 5 day intakes meeting <50% of estimated energy need.s started on PN 04/17 due to esophageal tear, plan for NPO x 2 weeks 04/18: currently goal kcals, PN 940 kcals, 110 g pro + propofol 765 kcals/day 04/20: TPN wirh orders 04/17 - 04/19 to provide 110gms protein and 940 claories + additional calories from propofol (04/19 provided 626 calories) Current Diet Order DIET NPO Lines and Drains: Central Line Triple Lumen 04/14/18 2319 Non-tunneled Right Neck (Active) Peripheral 04/14/18 3144 Left Antecubital 18 Gauge (Active) GI Feed/Drain 04/14/18 2319 Nasogastric Left Naris 16 Fr (Active) Indwelling Urinary Catheter 04/14/182113 Admission to Hospital [facility] (Active) Chest Tube 04/16/182099 Right 28 Fr (Active) Height: 177.8 cm (5' 10) Admission Weight: 106.1 kg (233 lb 14.5 oz) Current Weight: 108 kg (238 lb 1.6 oz) Body mass index is 34.16 kg/m?. Usual body weight Unable to determine No weight history available. Estimated nutrition goals: [place] body weight: 75.4 kg Dosing weight: 106 kg (04/14; BMI 33.5kg/m2) Calorie needs 0485-2997 kilocalories determined by = 15-20 kcals/kg Dosing weight Protein needs: 90 - 121 grams determined by 1.2 -1.6g/kg ideal weight - due to CKD Temp (24hrs), Av.3 ?C (100.9 ?F), Min:37 ?C (98.6 ?F), Max:38.9 ?C (102 ?F) Recent Labs 04/20/18 0134 GLUC 219* BUN 57* CREAT 1.50* NA 143 K 4.1 CHLOR 111* CO2 20* ALB 2.1* P 2.7 HB 8.0* HCT 24.9* WBC 9.01 MG 2.0 [facility] in the past year:No results for input(s): CHROMIUM, COPPER, MANGANESE, SELENIUM, VITAMINA, VITB1, VITB2, VITB6, B12, METHYLMAL, VITD25, VITAMINE, VITAK, ZINC, TIBC, FE, JOHANNY in the last 8784 hours. MNT Billing Type: Re-assess/15 min 2 units SIGNATURE: Sari Weston RD LD CNSC PATIENT NAME: Lazaro Villafana DATE: April 20, 2018 TIME: 12:03 PM PAGER: [phone] NURSING PROG Observed: 04/20/2018 Status: COMPLETED Source: [place] 8:48 AM [facility] REPOSITORY HNO ID: [id number] Author: Haydee (Rn) BLAYNE Graf Service: (none) Author Type: Registered Nurse Type: Nursing Progress Note Filed: 04/20/2018 8:48 AM Note Text: Nursing Progress: Topic: RESTRAINT NON-VIOLENT PATIENT NAME: Lazaro Villafana PATIENT LOCATION: [place] [address] The patient demonstrates Attempting to Remove Medical Devices Vital to Medical Stability as evidenced by the following behaviors attempting to remove ETT which pose an imminent danger to self or others. The following interventions were attempted but were not effective in protecting the patient's safety: Alarms, Bed in Low/Locked Position Next, a comprehensive assessment was performed and warranted placing the patient in Soft Bilateral Wrists, the least restrictive restraint needed to protect the patient's safety. Ongoing safety assessments and evaluation for earliest removal of restraints will be performed. DATE: April 20, 2018 TIME: 8:48 AM Haydee Graf RN CONSULT PROG Observed: 04/20/2018 Status: COMPLETED Source: [place] 5:56 AM [facility] REPOSITORY O ID: [id number] Author: Leena Li Service: Infectious Disease Author Type: Physician Type: Consult Progress Note Filed: 04/20/2018 12:59 PM Note Text: INFECTIOUS DISEASES PROGRESS NOTE Patient Name: Lazaro Villafana Account #: Data Unavailable Admission Date: 04/14/2018 Date of Evaluation: 04/20/2018 Time of Evaluation: 10:20 AM INTERVAL HPI: Increasing fever curve to 102F 0000 04/20/18. Stable leukocytosis, downtrended from admission. Ongoing known mediastinitis, no surgical intervention planned at this time. Day 6 cefepime, fluconazole, metronidazole. Improving creatinine. CXR 04/20/18 with worsening right lung opacities. MEDICATIONS: Current hospital medications: acetaminophen 650 mg suppository (TYLENOL) 650 mg RECTAL q 4 H PRN albuterol 2.5 mg/0.5 mL 2.5 mg nebulizer solution (PROVENTIL) 2.5 mg INHALATION q 4 H PRN cefepime 2 g in D5W 100 mL MB+ (MAXIPIME) 2 g INTRAVENOUS q 8 HR Chlorhexidine Gluconate 0.12 % 15 mL (PERIDEX) 15 mL ORAL QID dextrose 40 % 15 g 15 g ORAL PRN dextrose 50 % 12.5 g injection 12.5 g INTRAVENOUS PRN fentaNYL 50 mcg/mL 25-50 mcg injection (SUBLIMAZE) 25-50 mcg INTRAVENOUS q 1 H PRN fluconazole 200 mg in NaCl (iso-osmotic) 100 mL (DIFLUCAN) 200 mg INTRAVENOUS DAILY glucagon 1 mg injection (GLUCAGEN) 1 mg INTRAMUSCULAR PRN insulin glargine 18 Units pen (long acting) (LANTUS SOLOSTAR, BASAGLAR KWIKPEN) 18 Units SUBCUTANEOUS AT BEDTIME insulin lispro injection (rapid acting) (HumaLOG) SUBCUTANEOUS q 6 H ipratropium-albuterol 3 mL nebulizer solution (DUONEB) 3 mL INHALATION q 4 H PRN lactated ringers infusion 5-30 mL/hr INTRAVENOUS CONTINUOUS magnesium sulfate in water 2 g in sterile water 50 ml 2 g INTRAVENOUS PRN metroNIDAZOLE 500 mg PREMIX piggyback (FLAGYL) 500 mg INTRAVENOUS q 8 H NaCl 0.9% 3-5 mL 3-5 mL INTRAVENOUS q 12 H octreotide 500 mcg in D5W 100 mL (SandoSTATIN) 50 mcg/hr INTRAVENOUS CONTINUOUS pantoprazole 40 mg injection (PROTONIX) 40 mg INTRAVENOUS BID AC (0600/1600) Parenteral Nutrition - Adult INTRAVENOUS ONCE TPN (2200 START) potassium chloride 20-80 mEq CUP 20-80 mEq ORAL/FEEDING TUBE PRN potassium chloride iv piggyback 20 mEq/100 mL 20 mEq INTRAVENOUS PRN propofol infusion (DIPRIVAN) 5-60 mcg/kg/min INTRAVENOUS CONTINUOUS sodium glycerophosphate 15 mmol in D5W 250 mL (GLYCOPHOS) 15 mmol INTRAVENOUS PRN sodium glycerophosphate 30 mmol in D5W 250 mL (GLYCOPHOS) 30 mmol INTRAVENOUS PRN sodium glycerophosphate 45 mmol in D5W 250 mL (GLYCOPHOS) 45 mmol INTRAVENOUS PRN PHYSICAL EXAM: BP 135/60 Pulse 81 Temp (!) 38.4 ?C (101.1 ?F) (Oral) Resp 20 Ht 177.8 cm (5' 10) Wt 108 kg (238 lb 1.6 oz) SpO2 95% BMI 34.16 kg/m? Lines: Mcclain 04/14, Nontunnelled triple lumen 04/14 in R neck, ET tube 04/14, NG in L nare 04/14, L radial A-line 04/14 ?GEN: Patient is critically ill appearing. Sedated. SKIN: No lesions noted. EYES: PERRLA NOSE: Left Nare Ng tube in place. NECK: R nontunnelled triple lumen catheter with no overlying erythema, swelling or warmth. LUNGS: clear to auscultation, no wheezes, or crackles. HEART: ?Regular rate/rhythm, normal heart sounds, and no murmurs. ABDOMEN: Soft, epigastric tenderness, BS present. EXTREMITIES: Edema of hands b/l, no LE edema. NEURO: Sedated, not following commands. Labs: 9.1>24<74 INR: normal Alb: 2.1 LFTs normal BMP: Recent Labs 04/20/18 0134 04/19/18 0330 04/18/18 0002 04/17/18 0019 04/16/18 0031 04/15/18 0345 04/14/18 2120 04/14/18 1700 GLUC 219* 159* 202* 229* 238* 359* 445* 545* NA 143 143 142 137 139 136 140 136 K 4.1 4.0 3.6* 4.1 4.0 4.8 5.0 6.6* CHLOR 111* 111* 109* 106* 103 98 100 102 CO2 20* 20* 21* 21* 23 23 24 22 ANION 12 12 12 10 13 15 16 19* BUN 57* 58* 63* 69* 67* 74* 76* 73* CREAT 1.50* 1.47* 1.80* 2.34* 1.97* 2.47* 2.71* 2.66* Micro and radiology personally reviewed 04/14/18: Quantiferon gold testing negative for TB 04/14/18: Blood cultures 04/19 no growth 04/14/18: MSSA nasal swab positive 04/17/18: MSSA nasal swab positive 04/17/18: Blood cultures 05/[address] Chest 04/17/18: IMPRESSION: 1. ?NEW MULTIFOCAL CONSOLIDATIVE/GROUNDGLASS OPACITIES PREDOMINANTLY LEFT UPPER LOBE AND LINGULA, MAY REPRESENT MULTIFOCAL PNEUMONIA/ASPIRATION PNEUMONITIS, HEMORRHAGE OR ASYMMETRIC EDEMA. ?RADIOGRAPHIC FOLLOW-UP IS RECOMMENDED.. 2. ?BILATERAL LOWER LOBE AIRSPACE OPACITIES WITH VOLUME LOSS, RIGHT GREATER THAN LEFT, MOST LIKELY ATELECTASIS WITH POSSIBLE SUPERIMPOSED INFECTIOUS PROCESS. 3. ?LIMITED EVALUATION OF PREVIOUSLY SEEN MID ESOPHAGEAL CONTRAST EXTRAVASATION/TEAR. ?SMALL FOCI OF RIGHT-SIDED PNEUMOMEDIASTINUM, NOT SIGNIFICANTLY CHANGED. ?SMALL FOCI OF PNEUMOMEDIASTINUM HAVE DEVELOPED SUPERIORLY. ?THESE COULD BE FROM RECENT INTERVENTION. 4. SMALL BILATERAL PLEURAL COLLECTIONS HAVE SLIGHTLY INCREASED COMPARED TO PRIOR EXAM. ?THE AIR COMPONENTS OF THE RIGHT PLEURAL COLLECTION ARE NEW SINCE PREVIOUS EXAM, LIKELY RELATED TO ?INTERVAL PLACEMENT OF RIGHT APICAL CHEST TUBE. CXR 04/19/18: IMPRESSION: Lines, tubes, and devices: ?The endotracheal tube ends in the thoracic trachea. ?The nasogastric/orogastric tube can be followed as far as the stomach. ?The right thoracostomy tube is unchanged. ?The right internal jugular venous catheter ends in the superior vena cava. Lungs and pleura: ?Small right pleural effusion with associated atelectasis is present. ?Superimposed aspiration/pneumonia cannot be excluded. ?Mild left basilar atelectasis is seen. ?No large pneumothorax is seen. Cardiomediastinal silhouette: ?Stable cardiomediastinal silhouette. IMPRESSION / PLAN 52 yo M with a h/o cirrhosis, EtoH related, CKD, COPD and reported + PPD in the past. Currently no clinical or imaging evidence of active pulmonary TB. Presenting with hemorrhagic shock secondary to hematemesis/esophageal tear c/b pneumomediastinum; no surgical intervention planned at this time. Progressively worsening fever curve with more extensive right lung opacities today. ? Plan: - check CBC with differential today - repeat two sets of blood cultures today - attempt respiratory sample (sputum, mini-BAL) for gram stain and routine cultures - continue cefepime, metronidazole, fluconazole as ordered - add back vancomycin for gram-positive coverage and new MSSA colonization Discussed with attending and primary team, Perla Delgado PGY4 [facility] STAFF PHYSICIAN NOTE OF PERSONAL INVOLVEMENT IN CARE Events reviewed. Patient examined. Findings as outlined in the fellow's note above. Jang elements verified. ?Relevant lab data, microbiology and imaging data reviewed. Relevant images personally reviewed. Agree with assessment and plan as outlined in the fellow's note above. I was physically present for the critical portions of the service provided by the ID team. The management plan reflects my input. ?Marguerite Li MD Staff, Department of Infectious Disease Pager: [phone] PROGRESS Observed: 04/20/2018 Status: COMPLETED Source: [place] 5:16 AM [facility] REPOSITORY HNO ID: [id number] Author: Ted (Gilbert) MD Hitesh Service: General Surgery Author Type: Resident Type: Progress Notes Filed: 04/20/2018 7:35 AM Note Text: GENERAL SURGERY PROGRESS NOTE ASSESSMENT AND PLAN 52 year old male with PMHx type II DM, poorly controlled HTN, CKD, COPD, tobacco smoker 2-3 PPD, alcohol use disorder with recent diagnosis of cirrhosis w/ esophageal varices who presents on transfer from OSH with hematemesis s/p EGD at OSH c/b esophageal laceration that appears to be contained; MELD > 20 - Strict NPO - No surgical intervention planned - Thoracic surgery following -supportive care - trend labs - ICU *After 6pm and on weekends please page general surgery director of early childhood education [phone]* SUBJECTIVE/INTERVAL EVENTS Remains febrile, no leukocytosis, adequate UOP, minimal chest tube output, CXR w/ increased consolidation on R OBJECTIVE BP 135/60 Pulse 81 Temp (!) 38.4 ?C (101.1 ?F) (Oral) Resp 20 Ht 177.8 cm (5' 10) Wt 108 kg (238 lb 1.6 oz) SpO2 95% BMI 34.16 kg/m? Intake/Output Summary (Last 24 hours) at 04/19/18 0659 Last data filed at 04/19/18 0600 Gross per 24 hour Intake 3104.9 ml Output 3120 ml Net -15.1 ml General: sedated, ill appearing CV: on pressors Pulm: vent Neck: no subQ crepitus appreciated Abdomen: soft Neuro: limited exam / sedation Labs/Imaging: CBC, BMP, MG, PHOS Recent Labs 04/20/18 0134 04/19/18 0330 04/18/18 0002 04/17/18 1744 04/17/18 0019 WBC 9.01 6.66 6.79 7.91 < > 13.12* HB 8.0* 8.2* 8.1* 8.2* < > 8.4* HCT 24.9* 25.2* 24.1* 24.5* < > 25.2* PLT 74* 51* 49* 51* < > 61* NA 143 143 142 -- -- 137 K 4.1 4.0 3.6* -- -- 4.1 CHLOR 111* 111* 109* -- -- 106* CO2 20* 20* 21* -- -- 21* BUN 57* 58* 63* -- -- 69* CREAT 1.50* 1.47* 1.80* -- -- 2.34* GLUC 219* 159* 202* -- -- 229* CA 7.7* 7.4* 7.5* -- -- 7.2* MG 2.0 1.9 2.2 -- -- 2.2 P 2.7 2.0* 2.5* -- -- 4.3 < > = values in this interval not displayed. Liver Function, Amylase, AND Lipase Recent Labs 04/20/18 0144 04/20/18 0134 04/19/18 0829 04/19/18 0411 04/19/18 0330 04/19/18 0009 04/18/18 0002 04/17/18 0019 TPROT -- 5.1* -- -- 5.3* -- -- 5.5* -- 5.6* ALB -- 2.1* -- -- 2.1* -- -- 2.4* -- 2.5* ALT -- 14 -- -- 16 -- -- 16 -- 19 AST -- 37 -- -- 30 -- -- 30 -- 30 ALKPHOS -- 62 -- -- 56 -- -- 49 -- 48 TBILI -- 0.6 -- -- 0.6 -- -- 0.6 -- 1.0 LACT 1.1 -- 0.9 1.0 -- 1.2 < > -- < > -- < > = values in this interval not displayed. Coags Recent Labs 04/18/18 0002 04/17/18 0019 04/16/18 0031 04/15/18 0500 04/15/18 0345 APTT 31.7 32.1 31.6 -- Unable to assay. Specimen improperly collected/handled. INR 1.3 1.3 1.4* 1.3 Unable to assay. Specimen improperly collected/handled. Active Hospital Problems Diagnosis Date Noted - Mild protein-calorie malnutrition (HCC) 04/17/2018 - Esophageal perforation 04/14/2018 Ted Proctor MD [id number] XR CHEST 1V FRONTAL Observed: 04/20/2018 Status: F Source: [facility] 4:03 AM [facility] REPOSITORY * * *Final Report* * * DATE OF EXAM: Apr 20 2018 4:03AM [facility] [id number] - XR CHEST 1V FRONTAL PORT / PROCEDURE REASON: Acute respiratory illness * * * * Physician Interpretation * * * * EXAMINATION: CHEST RADIOGRAPH (PORTABLE SINGLE VIEW AP) Exam Date/Time: 04/20/2018 4:03 AM Clinical History: Acute respiratory illness, MQ: [id number] Comparison: 1 day prior RESULT: See impression. IMPRESSION: Lines, tubes, and devices: Patient is intubated with nasogastric tube, right IJ CVC and right-sided chest tube. Lungs and pleura: There is a partially loculated medium-size right pleural effusion with adjacent airspace consolidation, either aspiration/pneumonia. Patchy opacities are in the left lung. Findings are essentially stable from the prior exam. No large pneumothorax is identified. Cardiomediastinal silhouette: The cardiomediastinal silhouette is unchanged. Other: . Steel Turner: PSCB Transcribe Date/Time: Apr 20 2018 8:27A Dictated by : SHILPI THAKUR MD This examination was interpreted and the report reviewed and electronically signed by: SHILPI THAKUR MD on Apr 20 2018 8:27AM EST [id number] NURSING PROG Observed: 04/20/2018 Status: COMPLETED Source: [place] 2:11 AM [facility] REPOSITORY HNO ID: [id number] Author: Shon (Blayne) BLAYNE Mao Service: (none) Author Type: Registered Nurse Type: Nursing Progress Note Filed: 04/20/2018 2:12 AM Note Text: Nursing Progress: Topic: RESTRAINT NON-VIOLENT PATIENT NAME: Lazaro Villafana PATIENT LOCATION: [place] [address] The patient demonstrates Attempting to Remove Medical Devices Vital to Medical Stability as evidenced by the following behaviors pulling at et tube which pose an imminent danger to self or others. The following interventions were attempted but were not effective in protecting the patient's safety: Alarms, Bed in Low/Locked Position Next, a comprehensive assessment was performed and warranted placing the patient in Soft Bilateral Wrists, the least restrictive restraint needed to protect the patient's safety. Ongoing safety assessments and evaluation for earliest removal of restraints will be performed. DATE: April 20, 2018 TIME: 2:12 AM Shon Mao rn GASA + ALL Collected: 04/20/2018 Status: F Source: [place] FOR 1:44 AM [facility] RADIANCE USE ONLY REPOSITORY TYPE CODE TESTS RESULT OUT OF REFERENCE UNITS RANGE LAB PH 7.35-7.45 pH 7.38 LAB PCO2 34-46 mm Hg pCO2 36 LAB PO2 85-95 mm Hg pO2 Low 73 LAB BE mmol/L Base Excess NEG 4 LAB HCO3 22-26 mmol/L Bicarbonate Low 21 LAB CO2CT 22.0-28.0 mmol/L CO2 Content 22 LAB O2HB 95-98 % Oxyhemoglobin, Low Art. 93 LAB COHB 0-5.0 % Carboxyhemoglobin,A 1.7 rt LAB MHGB 0.4-1.5 % Methemoglobin Low 0.0 LAB TEMP C Temperature, Body 37.0 LAB PHTC 7.35-7.45 pH, Temp Corrected 7.38 LAB PCO2T 34-46 mm Hg pCO2, Temp Correct 36 LAB PO2T mm Hg pO2, Temp Corrected 73 LAB NAB 135-146 mmol/L Sodium,Whole Bld 142 LAB KWB 3.5-5.0 mmol/L Potassium, Whole Bld 4.0 LAB HGBB 13.0-17.0 g/dL Low Hemoglobin,Total,AC 8.3 L LAB HCTB 39.0-51.0 % Hematocrit, ACL Low 26 LAB IC 1.08-1.30 mmol/L Calcium, Ion, WB 1.20 LAB GLB 60-105 mg/dL Glucose,Whole Bld High 242 LAB LACT 0.5-2.2 mmol/L Lactate 1.1 Performed By: #### ALLBG #### [facility] [address] [place], [place] [address] COMP METABOLIC PANEL Collected: 04/20/2018 Status: F Source: [place] 1:[address] [facility] REPOSITORY TYPE CODE TESTS RESULT OUT OF REFERENCE UNITS RANGE LAB TP 6.3-8.0 g/dL Low Protein, Total 5.1 LAB ALB 3.9-4.9 g/dL Low Albumin 2.1 LAB CA 8.5-10.2 mg/dL Low Calcium, Total 7.7 LAB TBIL 0.2-1.3 mg/dL Bilirubin, Total 0.6 LAB ALKP 38-113 U/L Alkaline Phosphatase 62 LAB AST 14-40 U/L AST 37 LAB GLU 74-99 mg/dL Glucose High 219 Result Comment: The [place] [employer] Association (ADA) provides guidance for cutoff values for fasting glucose and random glucose. The ADA defines fasting as no caloric intake for at least 8 hours. Fas ting plasma glucose results between 100 to 125 mg/dL indicate increased risk for diabetes (prediabetes). Fasting plasma glucose results greater than or equal to 126 mg/dL meet the criteria for diagnosis of diabetes. In the absence of unequivocal hyperglycemia, results should be confirmed by repeat testing. In a patient with classic symptoms of hyperglycemia or hyperglycemic crisis, random plasma glucose results greater than or equal to 200 mg/dL meet the criteria for diagnosis of diabetes. Reference: Standards of Medical Care in Diabetes 2016, [place] [employer]. Diabetes Care. 2016.39(Suppl 1). LAB BUN 9-24 mg/dL BUN High 57 LAB CRET 0.73-1.22 mg/dL Creatinine High 1.50 LAB NA 136-144 mmol/L Sodium 143 LAB K 3.7-5.1 mmol/L Potassium 4.1 LAB CL 97-105 mmol/L Chloride High 111 LAB CO2 22-30 mmol/L Low CO2 20 LAB AGAP 9-18 mmol/L Anion Gap 12 LAB ALT 10-54 U/L ALT 14 LAB GFRAA eGFR- Amer. 60 LAB GFRNAA . eGFR-All Other Races 50 Result Comment: eGFR (Estimated GFR) Units of measure: mL/min/1.73 meters squared eGFR is derived from the reexpressed MDRD Study equation using the following parameters: serum creatinine, age, gender and race. The creatinine assay has been calibrated to be traceable to IDMS. An eGFR <60 mL/min/1.73m2 for >3 months is consistent with chronic kidney disease. Refer to KDOQI guidelines for clinical interpretation. In patients with unstable renal function, e.g. those with acute kidney injury, the eGFR may not accurately reflect actual GFR. Performed By: #### CMP, MG1, PHOS, TRIG, CBC #### [facility] [address] [place], [place] [address] MAGNESIUM Collected: 04/20/2018 Status: F Source: [place] 1:34 [facility] REPOSITORY TYPE CODE TESTS RESULT OUT OF REFERENCE UNITS RANGE LAB MG 1.7-2.3 mg/dL Magnesium 2.0 Performed By: #### CMP, MG1, PHOS, TRIG, CBC #### [facility] [address] [place], [place] [address] PHOSPHORUS Collected: 04/20/2018 Status: F Source: [place] 1:34 AM [facility] REPOSITORY TYPE CODE TESTS RESULT OUT OF REFERENCE UNITS RANGE LAB PHOS 2.7-4.8 mg/dL Phosphorus 2.7 Performed By: #### CMP, MG1, PHOS, TRIG, CBC #### [facility] [address] [place] [id number] TRIGLYCERIDE Collected: 04/20/2018 Status: F Source: [place] 1:34 AM [facility] REPOSITORY TYPE CODE TESTS RESULT OUT OF REFERENCE UNITS RANGE LAB TRIGLY <150 mg/dL Triglyceride 133 Result Comment: <150 mg/dL, Normal 150-199 mg/dL, Borderline high 200-499 mg/dL, High >499 mg/dL, Very high Reference: 1. National Cholesterol Education Program ATP III Guideline At-A-Glance Quick Desk Reference: National Heart, Lung, and Blood [place]. National Institutes of Health. 2001: NIH Publication No. 01-3305. LAB FT hrs Fasting Unknown Time Performed By: #### CMP, MG1, PHOS, TRIG, CBC #### [facility] [address] [place] [id number] CBC Collected: 04/20/2018 Status: F Source: [place] 1:34 [facility] REPOSITORY TYPE CODE TESTS RESULT OUT OF REFERENCE UNITS RANGE LAB WBC 3.70-11.00 k/uL WBC 9.01 LAB RBC 4.20-6.00 m/uL Low RBC 2.74 LAB HGB 13.0-17.0 g/dL Low Hemoglobin 8.0 LAB HCT 39.0-51.0 % Low Hematocrit 24.9 LAB MCV 80.0-100.0 fL MCV 90.9 LAB MCH 26.0-34.0 pG MCH 29.2 LAB MCHC 30.5-36.0 g/dL MCHC 32.1 LAB RDWCV 11.5-15.0 % RDW-CV High 16.5 LAB PLTCT 150-400 k/uL Low Platelet Count 74 Result Comment: No clot detected. LAB MPV 9.0-12.7 fL MPV 11.9 LAB ABSNUC <0.01 k/uL Absolute nRBC <0.01 Performed By: #### CMP, MG1, PHOS, TRIG, CBC #### [facility] [address] [place], [place] [address] GASA + ALL Collected: 04/19/2018 Status: F Source: [place] FOR 8:29 AM [facility] RADIANCE USE ONLY REPOSITORY TYPE CODE TESTS RESULT OUT OF REFERENCE UNITS RANGE LAB PH 7.35-7.45 pH 7.41 LAB PCO2 34-46 mm Hg pCO2 34 LAB PO2 85-95 mm Hg pO2 High 110 LAB BE mmol/L Base Excess NEG 2 LAB HCO3 22-26 mmol/L Bicarbonate Low 21 LAB CO2CT 22.0-28.0 mmol/L CO2 Content 22 LAB O2HB 95-98 % Oxyhemoglobin, Art. 97 LAB COHB 0-5.0 % Carboxyhemoglobin, 1.3 Art LAB MHGB 0.4-1.5 % Methemoglobin 0.6 LAB TEMP C Temperature, Body 37.0 LAB PHTC 7.35-7.45 pH, Temp Corrected 7.41 LAB PCO2T 34-46 mm Hg pCO2, Temp Correct 34 LAB PO2T mm Hg pO2, Temp Corrected 110 LAB NAB 135-146 mmol/L Sodium,Whole Bld 141 LAB KWB 3.5-5.0 mmol/L Potassium, Whole Bld 3.5 LAB HGBB 13.0-17.0 g/dL Low Hemoglobin,Total,A 8.1 CL LAB HCTB 39.0-51.0 % Hematocrit, Low ACL 25 LAB IC 1.08-1.30 mmol/L Calcium, Ion, WB 1.13 LAB GLB 60-105 mg/dL Glucose,Whole High Bld 184 LAB LACT 0.5-2.2 mmol/L Lactate 0.9 LAB ACBDTE Notify Date, Art [id number] LAB ACBTME Notify Time, Art Performed By: #### ALLBG #### [facility] [address] [place], [place] [address] NURSING PROG Observed: 04/19/2018 Status: COMPLETED Source: [place] 8:28 AM [facility] REPOSITORY HNO ID: [id number] Author: Sunny (Rn) BLAYNE Rizvi Service: Nursing Author Type: Registered Nurse Type: Nursing Progress Note Filed: 04/19/2018 8:28 AM Note Text: Nursing Progress: Topic: RESTRAINT NON-VIOLENT PATIENT NAME: Lazaro Villafana PATIENT LOCATION: [place] [address] The patient demonstrates Attempting to Remove Medical Devices Vital to Medical Stability, Lack of Understanding/Ability to Comply with Safety Directions as evidenced by the following behaviors attempting to remove ETT which pose an imminent danger to self or others. The following interventions were attempted but were not effective in protecting the patient's safety: Alarms, Bed in Low/Locked Position, Medications Reviewed, Modify Environment, Modify Equipment, Frequent Observation Next, a comprehensive assessment was performed and warranted placing the patient in Soft Bilateral Wrists, the least restrictive restraint needed to protect the patient's safety. Ongoing safety assessments and evaluation for earliest removal of restraints will be performed. DATE: April 19, 2018 TIME: 8:28 AM Sunny Rizvi RN CONSULT PROG Observed: 04/19/2018 Status: COMPLETED Source: [place] 7:42 AM [facility] REPOSITORY [facility] ID: [id number] Author: Francois Gann Service: Thoracic Surgery Author Type: Resident Type: Consult Progress Note Filed: 04/19/2018 7:47 AM Note Text: [facility] THORACIC SURGERY CONSULT PROGRESS NOTE Lazaro Villafana [id number] PRIMARY SERVICE: HOSPITAL DAY: # 5 INTERVAL HISTORY No acute events overnight. Off pressors. CT output 150cc down from 640. PHYSICAL EXAM BP 98/57 Pulse 74 Temp (!) 38.1 ?C (100.6 ?F) (Oral) Resp 6 Wt 108.7 kg (239 lb 10.2 oz) SpO2 99% BMI 34.38 kg/m? Intake/Output Summary (Last 24 hours) at 04/19/18 0742 Last data filed at 04/19/18 0700 Gross per 24 hour Intake 3104.9 ml Output 3145 ml Net -40.1 ml Constitutional: intubated, sedated HEENT: intubated Resp: VENT FiO2 40, PEEP 8; R chest tube in place and on suction, no air leak, sanguineous output Cardiovascular: Cardiac: RR Integumentary: Warm Musculoskeletal: No deformities Neurological/Psychiatric: intubated Additional systems reviewed: No additional systems reviewed DATA Recent Labs 04/19/18 0330 04/18/18 0002 04/17/18 1744 WBC 6.66 6.79 7.91 HB 8.2* 8.1* 8.2* HCT 25.2* 24.1* 24.5* PLT 51* 49* 51* Recent Labs 04/19/18 0330 04/18/18 0002 04/17/18 0019 NA 143 142 137 K 4.0 3.6* 4.1 CO2 20* 21* 21* BUN 58* 63* 69* CREAT 1.47* 1.80* 2.34* GLUC 159* 202* 229* MG 1.9 2.2 2.2 IMAGING I personally reviewed: CXR 04/19 in process, will f/u ASSESSMENT AND PLAN 52 year old male with multiple medical comorbidities now with likely partial thickness esophageal perforation, putatively from S-B tube placement at OSH. It is unlikely that this is the etiology of his massive hemoptysis, reportedly there were multiple varices that, in the background of cirrhosis is the likely etiology of his bleed. While he is requiring high doses of vasopressors, it is unlikely that the source of his shock is purely from his esophageal perforation given his lack of pleural effusion or free flowing contrast. ?04/15 EGD showed 5cm esophageal laceration without active bleeding. 04/16 Right chest tube placed for effusion. - STRICT NPO for at least 2 weeks - Do NOT manipulate NGT blindly - no acute surgical intervention indicated at this point - monitor chest tube output - chest tube to suction - Recommend eventual PEG with J extension for feeding - will follow ? Francois Gann MD,PhD Pager [phone]? 04/19/2018 7:42 AM PROGRESS Observed: 04/19/2018 Status: COMPLETED Source: [place] 6:55 AM [facility] REPOSITORY HNO ID: [id number] Author: Ted (Res) MD Hitesh Service: General Surgery Author Type: Resident Type: Progress Notes Filed: 04/19/2018 6:56 AM Note Text: GENERAL SURGERY PROGRESS NOTE ASSESSMENT AND PLAN 52 year old male with PMHx type II DM, poorly controlled HTN, CKD, COPD, tobacco smoker 2-3 PPD, alcohol use disorder with recent diagnosis of cirrhosis w/ esophageal varices who presents on transfer from OSH with hematemesis s/p EGD at OSH c/b esophageal laceration that appears to be contained; MELD > 20 - Strict NPO - No surgical intervention planned - Thoracic surgery following -supportive care - trend labs - ICU *After 6pm and on weekends please page general surgery director of early childhood education [phone]* SUBJECTIVE/INTERVAL EVENTS Off pressors, still intubated, 150 from chest tube, adequate UOP OBJECTIVE BP 121/70 Pulse 80 Temp (!) 38.1 ?C (100.6 ?F) (Oral) Resp 23 Wt 108.7 kg (239 lb 10.2 oz) SpO2 100% BMI 34.38 kg/m? Intake/Output Summary (Last 24 hours) at 04/18/18 0659 Last data filed at 04/18/18 0600 Gross per 24 hour Intake 2703.4 ml Output 3330 ml Net -626.6 ml General: sedated, ill appearing CV: on pressors Pulm: vent Neck: no subQ crepitus appreciated Abdomen: soft Neuro: limited exam 05/21 sedation Labs/Imaging: CBC, BMP, MG, PHOS Recent Labs 04/19/18 0330 04/18/18 0002 04/17/18 1744 04/17/18 0617 04/17/18 0019 04/16/18 0031 WBC 6.66 6.79 7.91 11.97* 13.12* < > 4.84 HB 8.2* 8.1* 8.2* 8.1* 8.4* < > 7.8* HCT 25.2* 24.1* 24.5* 24.8* 25.2* < > 22.6* PLT 51* 49* 51* 66* 61* < > 35* NA 143 142 -- -- 137 -- 139 K 4.0 3.6* -- -- 4.1 -- 4.0 CHLOR 111* 109* -- -- 106* -- 103 CO2 20* 21* -- -- 21* -- 23 BUN 58* 63* -- -- 69* -- 67* CREAT 1.47* 1.80* -- -- 2.34* -- 1.97* GLUC 159* 202* -- -- 229* -- 238* CA 7.4* 7.5* -- -- 7.2* -- 7.2* MG 1.9 2.2 -- -- 2.2 -- 1.3* P 2.0* 2.5* -- -- 4.3 -- 2.6* < > = values in this interval not displayed. Liver Function, Amylase, AND Lipase Recent Labs 04/19/18 0411 04/19/18 0330 04/19/18 0009 04/18/18 0631 04/18/18 0003 04/18/18 0002 04/17/18 0019 04/16/18 0031 TPROT -- 5.3* -- -- -- 5.5* -- 5.6* -- 5.2* ALB -- 2.1* -- -- -- 2.4* -- 2.5* -- 2.7* ALT -- 16 -- -- -- 16 -- 19 -- 22 AST -- 30 -- -- -- 30 -- 30 -- 39 ALKPHOS -- 56 -- -- -- 49 -- 48 -- 41 TBILI -- 0.6 -- -- -- 0.6 -- 1.0 -- 1.5* LACT 1.0 -- 1.2 1.3 0.8 -- < > -- < > -- < > = values in this interval not displayed. Coags Recent Labs 04/18/18 0002 04/17/18 0019 04/16/18 0031 04/15/18 0500 04/15/18 0345 APTT 31.7 32.1 31.6 -- Unable to assay. Specimen improperly collected/handled. INR 1.3 1.3 1.4* 1.3 Unable to assay. Specimen improperly collected/handled. Active Hospital Problems Diagnosis Date Noted - Mild protein-calorie malnutrition (HCC) 04/17/2018 - Esophageal perforation 04/14/2018 Ted Proctor MD [id number] PROGRESS Observed: 04/19/2018 Status: COMPLETED Source: [place] 4:41 AM [facility] REPOSITORY HNO ID: [id number] Author: Ted Mackenzie MD Service: Critical Care Author Type: Anesthesiologist Type: Progress Notes Filed: 04/19/2018 7:15 AM Note Text: SURGICAL INTENSIVE CARE UNIT PROGRESS NOTE SERVICE DATE: April 19, 2018 SERVICE TIME: 0430 Subjective No acute events overnight Objective VITAL SIGNS Temp: (!) 38.1 ?C (100.6 ?F) Pulse: 80 BP: 121/70 MAP Non Invasive (Mean Arterial Pressure): 90 Resp: 23 SpO2: 100 % Not applicable Current Facility-Administered Medications: albuterol 2.5 mg/0.5 mL 2.5 mg nebulizer solution (PROVENTIL) 2.5 mg INHALATION q 4 H PRN cefepime 2 g in D5W 100 mL MB+ (MAXIPIME) 2 g INTRAVENOUS q 12 H Chlorhexidine Gluconate 0.12 % 15 mL (PERIDEX) 15 mL ORAL QID dextrose 50 % 12.5-25 g injection 25-50 mL INTRAVENOUS PRN fentaNYL 50 mcg/mL 25-50 mcg injection (SUBLIMAZE) 25-50 mcg INTRAVENOUS q 1 H PRN fluconazole 200 mg in NaCl (iso-osmotic) 100 mL (DIFLUCAN) 200 mg INTRAVENOUS DAILY insulin regular 250 units in NaCl 0.9% 250 mL iv infusion - ICU NOMOGRAM 0.5-30 Units/hr INTRAVENOUS CONTINUOUS insulin regular human iv bolus 2-10 Units 2-10 Units INTRAVENOUS PRN ipratropium-albuterol 3 mL nebulizer solution (DUONEB) 3 mL INHALATION q 4 H PRN lactated ringers infusion 5-30 mL/hr INTRAVENOUS CONTINUOUS metroNIDAZOLE 500 mg PREMIX piggyback (FLAGYL) 500 mg INTRAVENOUS q 8 H mupirocin 2% 0.5 g nasal ointment (BACTROBAN) 0.5 g NASAL BID NaCl 0.9% 3-5 mL 3-5 mL INTRAVENOUS q 12 H NORepinephrine 16 mg in D5W 250 mL (LEVOPHED) 0.6-50 mcg/min INTRAVENOUS CONTINUOUS octreotide 500 mcg in D5W 100 mL (SandoSTATIN) 50 mcg/hr INTRAVENOUS CONTINUOUS pantoprazole 40 mg injection (PROTONIX) 40 mg INTRAVENOUS BID AC (0600/1600) Parenteral Nutrition - Adult INTRAVENOUS ONCE TPN (2200 START) potassium chloride iv piggyback 20 mEq/100 mL 20 mEq INTRAVENOUS PRN Or potassium chloride 20-80 mEq CUP 20-80 mEq ORAL/FEEDING TUBE PRN propofol infusion (DIPRIVAN) 5-60 mcg/kg/min INTRAVENOUS CONTINUOUS Cardiovascular: Regular rhythm Abdomen: Soft and Nontender Extremities: Mild pedal edema Neuro: Sedated Intake/Output Summary (Last 24 hours) at 04/19/18 0441 Last data filed at 04/19/18 0300 Gross per 24 hour Intake 2564.7 ml Output 2920 ml Net -355.3 ml Current Weight: Weight: 107.4 kg (236 lb 12.4 oz) Admission Weight: Weight: 106.1 kg (233 lb 14.5 oz) RESPIRATORY Mechanical Ventilation: Vent Mode: PC SIMV Freq (bpm): 18 PS (cmH20): 8 PEEP / CPAP (cmH20): 8 FIO2 (%): 40 Recent Labs 04/19/18 0411 04/19/18 0009 PH 7.45 7.43 PO2 82* 83* PCO2 33* 33* BE NEG 1 NEG 2 HCO3 22 22 LACT 1.0 1.2 Clinical Exam: Rales right Breath Sounds Equal: Yes CXR Findings: Pleural effusion Right , Right chest tube in place Index Current Meds I/O and Results Selected Labs Nutrition Orders Active Lines Problem List Allergies History Treatment Team My Charges AND Notes Link to IP Notes Hospital Course by Problem List Common SmartLinks Care Plan/Patient Ed Provider Checklist Imaging Micro Text Last 60 Days Transition of Care Lines/Drains/Airways Report Line Arterial Line 04/14/18 2320 Arterial Line Left Radial 4 days Central Line Triple Lumen 04/14/18 2319 Non-tunneled Right Neck 4 days Peripheral 04/14/18 2344 Left Antecubital 18 Gauge 4 days Drain GI Feed/Drain 04/14/18 2319 Nasogastric Left Naris 16 Fr 4 days Indwelling Urinary Catheter 04/14/182113 Admission to Hospital [facility] 4 days Chest Tube 04/16/18 2100 Right 28 Fr 2 days Airway Airway Endotracheal Tube 04/14/185 4 days Skin Other Skin Conditions Bruising Toes - Left Foot -- days Assessment/Plan Mr.?Howard Villafana is a 52-year-old male with PMHx type II DM, poorly controlled HTN, CKD, COPD, tobacco smoker 2-3 PPD, alcohol use disorder with recent diagnosis of cirrhosis was transferred from OSH with an esophageal perforation seen on EGD. Patient initially presented with hematemesis and melena with accompanying dizziness and shortness of breath. Now being admitted to the SICU for surgical evaluation and hemodynamic monitoring. ? Neuro:?hx of heavy EtOH use, last drink on 04/13 -- tachypnea requiring intubation at OSH -- On propofol gtt. -- per , he previously drank 3 cider ales daily up until 1 month ago, around when he learned about his cirrhosis diagnosis. She notes that he had 2 drinks on 04/13. ? --thiamine and folic acid -- PRN fentanyl ? CV:? -- Goal MAP >65 - 04/17 CXR - improved aeration of the right lung with interval decrease in the right pleural effusion and associated atelectasis. ?Small right pleural effusion with right lower lobe atelectasis remains. - lactate - 1.0 ? Pulm:??Hx of COPD. Intubated. Vent Mode: PC SIMV Freq (bpm): 18 PS (cmH20): 8 PEEP / CPAP (cmH20): 8 FIO2 (%): 40 --Continue home bronchodilators --BPH, duonebs prn -- Chest tube output 150cc over 24 hrs - will maintain wall suction. Continue intubation ? Renal:??(baseline Cr ~1.2 from 02/2018) -- LIANE; most likely pre-renal.?Cr 1.8 , downtrending on 04/18 --Monitor Cr and I/Os --[place] ? GI:?Likely partial thickness esophageal perforation. Presented from OSH on 04/14 with hematemesis, melena dizziness and SOB. EtOH cirrhosis with portal HTN, grade 2 esophageal varices -- EGD at OSH showed no mediastinal air -- 04/15 CT chest/abd/pel - mid distal esophageal tear 5.4cm from T6-T8. Small amount of enteric contrast extravasation and pneumomediastinum. - 04/15 EGD by GI - deep esophageal tear, not amenable to esophageal stenting --Pantoprazole for GI ppx and ocreotide gtt for at least 7 days (started 04/14) per GI --NPO, TPN --NGT repositioned by GI - DO NOT MANIPULATE BLINDLY -- thoracic does not recommend open surgical intervention. Perforation appears to be contained. Likely iatrogenic tear from prior tube placement. -- may develop mediastinal abscess within the next few days ? -- consider TF, need for post-pyloric feeds, method of placement (IR vs GI) - awaiting thoracic surg decision -- lactulose enema 04/18 ? Heme:? -- Hgb 8.2 -- thrombocytopenia. Will watch for signs of bleeding and need for further transfusion --Transfuse to keep Hgb >7 ? Fluid/Electrolyte/Nutrition: --NPO --Replete lytes as one time dosing -- TPN -- lr kvo ? Endo:?Hx of IDDM, HgbA1c 8.2. - glucose 140-222; BG goal 130-180 --Continue insulin gtt ? ID:?Esohageal tear and perforation. aztreonam and flagyl at OSH Febrile 38.2 04/18. WBC normalized BCx, UA - 04/17 Concern for mediastinitisis. ? Cultures/labs: - 04/14 blood culture - NGTD - 04/17 blood culture - NGTD - 04/17 UA - no indication of UTI - 04/14 TB blood screen - negative - 04/14 procalcitonin 2.67 ? - empiric coverage with cefepime, fluconazole, flagyl - end date in 1 month - allergy consult for skin test. 04/18. ? - ID following, appreciate recs ? PPX: - GI ppx - pantoprazole - VTE ppx - holding given concern for bleeding, thrombocytopenia Medication and Non-Pharmacologic VTE Prophylaxis/Anticoagulants 04/14/18 2100 pneumatic compression stockings (nc,oh) 04/14/18 2100 activity - mobilize patient (nc,ut) VTE Prophylaxis: VTE prophylaxis appropriate SIGNATURE: Cortes Vargas MD, Fellow PATIENT NAME: Lazaro Villafana DATE: April 19, 2018 TIME: 4:41 AM PAGER/CONTACT #:[phone] [facility] Asbestos Handler -- Gurdeep Patient Name: Lazaro Villafana Patient seen and examined with the ICU team residents, fellows, ancillary and RN. I have reviewed the HANDP/Progress notes. I personally participated in the jang components. I have discussed the case and management of the patient's care with the RN. For further labs and/or history please see HANDP/progress notes. Please see physical exam results documented in the residents/fellows notes that were independently verified. This patient has a high probability of sudden, clinically significant deterioration, which required the highest level of preparedness to intervene urgently. I participated in the decision making and personally managed or directed the management of life and organ supporting interventions that required my frequent assessment to treat or prevent imminent deterioration. Time devoted to any procedures I billed separately is not included in the aggregate time. I personally spent 60 minutes of critical care time involved in the care of this patient. This care required my full attention and direct personal management. CRITICAL CARE Interval events: following commands off sedation Agree with plan as outlined above with highlighted additions/corrections/deletions and further recommendations below. Remain in ICU. Propofol for comfort while intubated. Wean vent as tolerated. Trend renal indices as UOP reassuring. Would favor stenting esophagus if possible. From report, GI felt esophagus was of too large a caliber for a stent, thoracic felt this was still an option. From repeat chest CT 04/17 there is possible contrast extravasation, but definite pneumomediastinum. What is the plan? TPN for nutrition. Insulin drip for hyperglycemia. Trend HANDH and platelets no need to transfuse. Acute (Pleural effusion) on chronic (COPD) hypoxic respiratory insufficiency LIANE Electrolyte disturbances Esophageal laceration NIDDM with stress hyperglycemia Mediastinitis Acute blood loss anemia Secondary thrombocytopenia Relevant chronic conditions COPD EtOH cirrhosis HTN NIDDM2 Moderate PCM Ted Mackenzie MD April 19, 2018 7:13 AM XR CHEST 1V FRONTAL Observed: 04/19/2018 Status: F Source: [facility] 4:24 AM [facility] REPOSITORY * * *Final Report* * * DATE OF EXAM: Apr 19 2018 4:24AM [facility] [id number] - XR CHEST 1V FRONTAL PORT / PROCEDURE REASON: Acute respiratory illness * * * * Physician Interpretation * * * * EXAMINATION: CHEST RADIOGRAPH (PORTABLE SINGLE VIEW AP) Exam Date/Time: 04/19/2018 4:24 AM Clinical History: Acute respiratory illness, MQ: [id number] Comparison: 1 day prior RESULT: See impression. IMPRESSION: Lines, tubes, and devices: The endotracheal tube ends in the thoracic trachea. The nasogastric/orogastric tube can be followed as far as the stomach. The right thoracostomy tube is unchanged. The right internal jugular venous catheter ends in the superior vena cava. Lungs and pleura: Small right pleural effusion with associated atelectasis is present. Superimposed aspiration/pneumonia cannot be excluded. Mild left basilar atelectasis is seen. No large pneumothorax is seen. Cardiomediastinal silhouette: Stable cardiomediastinal silhouette. Steel Turner: NIDHI Transcribe Date/Time: Apr 19 2018 10:16A Dictated by : ELOISE GONSALVES MD This examination was interpreted and the report reviewed and electronically signed by: ELOISE GONSALVES MD on Apr 19 2018 10:17AM EST [id number] + ALL Collected: 04/19/2018 Status: F Source: [facility] 4:11 AM [facility] RADIANCE USE ONLY REPOSITORY TYPE CODE TESTS RESULT OUT OF REFERENCE UNITS RANGE LAB PH 7.35-7.45 pH 7.45 LAB PCO2 34-46 mm Hg pCO2 Low 33 LAB PO2 85-95 mm Hg pO2 Low 82 LAB BE mmol/L Base Excess NEG 1 LAB HCO3 22-26 mmol/L Bicarbonate 22 LAB CO2CT 22.0-28.0 mmol/L CO2 Content 23 LAB O2HB 95-98 % Oxyhemoglobin, Low Art. 94 LAB COHB 0-5.0 % Carboxyhemoglobin,A 0.9 rt LAB MHGB 0.4-1.5 % Methemoglobin 1.0 LAB TEMP C Temperature, Body 37.0 LAB PHTC 7.35-7.45 pH, Temp Corrected 7.45 LAB PCO2T 34-46 mm Hg pCO2, Temp Low Correct 33 LAB PO2T mm Hg pO2, Temp Corrected 82 LAB NAB 135-146 mmol/L Sodium,Whole Bld 142 LAB KWB 3.5-5.0 mmol/L Potassium, Whole Bld 3.8 LAB HGBB 13.0-17.0 g/dL Low Hemoglobin,Total,AC 8.2 L LAB HCTB 39.0-51.0 % Hematocrit, ACL Low 26 LAB IC 1.08-1.30 mmol/L Calcium, Ion, WB 1.15 LAB GLB 60-105 mg/dL Glucose,Whole Bld High 163 LAB LACT 0.5-2.2 mmol/L Lactate 1.0 Performed By: #### ALLBG #### [facility] [address] [place], [place] [address] CBC Collected: 04/19/2018 Status: F Source: [place] 3:30 AM [facility] REPOSITORY TYPE CODE TESTS RESULT OUT OF REFERENCE UNITS RANGE LAB WBC 3.70-11.00 k/uL WBC 6.66 LAB RBC 4.20-6.00 m/uL Low RBC 2.78 LAB HGB 13.0-17.0 g/dL Low Hemoglobin 8.2 LAB HCT 39.0-51.0 % Low Hematocrit 25.2 LAB MCV 80.0-100.0 fL MCV 90.6 LAB MCH 26.0-34.0 pG MCH 29.5 LAB MCHC 30.5-36.0 g/dL MCHC 32.5 LAB RDWCV 11.5-15.0 % RDW-CV High 16.3 LAB PLTCT 150-400 k/uL Low Platelet Count 51 Result Comment: Result checked and verified No clot detected. LAB MPV 9.0-12.7 fL MPV 11.5 LAB ABSNUC <0.01 k/uL Absolute nRBC <0.01 Performed By: #### CBC, CMP, MG1, PHOS #### [facility] [address] [place] [id number] COMP METABOLIC PANEL Collected: 04/19/2018 Status: F Source: [place] 3:30 AM [facility] REPOSITORY TYPE CODE TESTS RESULT OUT OF REFERENCE UNITS RANGE LAB TP 6.3-8.0 g/dL Low Protein, Total 5.3 LAB ALB 3.9-4.9 g/dL Low Albumin 2.1 LAB CA 8.5-10.2 mg/dL Low Calcium, Total 7.4 LAB TBIL 0.2-1.3 mg/dL Bilirubin, Total 0.6 LAB ALKP 38-113 U/L Alkaline Phosphatase 56 LAB AST 14-40 U/L AST 30 LAB GLU 74-99 mg/dL Glucose High 159 Result Comment: The [place] [employer] (ADA) provides guidance for cutoff values for fasting glucose and random glucose. The ADA defines fasting as no caloric intake for at least 8 hours. Fas ting plasma glucose results between 100 to 125 mg/dL indicate increased risk for diabetes (prediabetes). Fasting plasma glucose results greater than or equal to 126 mg/dL meet the criteria for diagnosis of diabetes. In the absence of unequivocal hyperglycemia, results should be confirmed by repeat testing. In a patient with classic symptoms of hyperglycemia or hyperglycemic crisis, random plasma glucose results greater than or equal to 200 mg/dL meet the criteria for diagnosis of diabetes. Reference: Standards of Medical Care in Diabetes 2016, [place] [employer]. Diabetes Care. 2016.39(Suppl 1). LAB BUN 9-24 mg/dL BUN High 58 LAB CRET 0.73-1.22 mg/dL Creatinine High 1.47 LAB NA 136-144 mmol/L Sodium 143 LAB K 3.7-5.1 mmol/L Potassium 4.0 LAB CL 97-105 mmol/L Chloride High 111 LAB CO2 22-30 mmol/L Low CO2 20 LAB AGAP 9-18 mmol/L Anion Gap 12 LAB ALT 10-54 U/L ALT 16 LAB GFRAA eGFR- Amer. >60 LAB GFRNAA . eGFR-All Other Races 51 Result Comment: eGFR (Estimated GFR) Units of measure: mL/min/1.73 meters squared eGFR is derived from the reexpressed MDRD Study equation using the following parameters: serum creatinine, age, gender and race. The creatinine assay has been calibrated to be traceable to IDMS. An eGFR <60 mL/min/1.73m2 for >3 months is consistent with chronic kidney disease. Refer to KDOQI guidelines for clinical interpretation. In patients with unstable renal function, e.g. those with acute kidney injury, the eGFR may not accurately reflect actual GFR. Performed By: #### CBC, CMP, MG1, PHOS #### [facility] [address] [place] [address] MAGNESIUM Collected: 04/19/2018 Status: F Source: [place] 3:30 AM [facility] REPOSITORY TYPE CODE TESTS RESULT OUT OF REFERENCE UNITS RANGE LAB MG 1.7-2.3 mg/dL Magnesium 1.9 Performed By: #### CBC, CMP, MG1, PHOS #### [facility] [address] [place] [address] PHOSPHORUS Collected: 04/19/2018 Status: F Source: [place] 3:30 AM [facility] REPOSITORY TYPE CODE TESTS RESULT OUT OF REFERENCE UNITS RANGE LAB PHOS 2.7-4.8 mg/dL Low Phosphorus 2.0 Performed By: #### CBC, CMP, MG1, PHOS #### [facility] [address] [place] [address] TYPE AND SCREEN Collected: 04/19/2018 Status: F Source: [place] 3:30 AM [facility] REPOSITORY TYPE CODE TESTS RESULT OUT OF REFERENCE UNITS RANGE LAB %ABR B ABO/RH(D) POSITIVE LAB % Antibody NEG Screen Performed By: #### TSCR #### [facility] [address] [place], [place] [address] GASA + ALL Collected: 04/19/2018 Status: F Source: [place] [facility] 12:09 AM [facility] RADIANCE USE ONLY REPOSITORY TYPE CODE TESTS RESULT OUT OF REFERENCE UNITS RANGE LAB PH 7.35-7.45 pH 7.43 LAB PCO2 34-46 mm Hg pCO2 33 Low LAB PO2 85-95 mm Hg pO2 83 Low LAB BE mmol/L Base Excess NEG 2 LAB HCO3 22-26 mmol/L Bicarbonate 22 LAB CO2CT 22.0-28.0 mmol/L CO2 Content 23 LAB O2HB 95-98 % 95 Oxyhemoglobin, Art. LAB COHB 0-5.0 % 0.7 Carboxyhemoglobin ,Art LAB MHGB 0.4-1.5 % 0.3 Low Methemoglobin LAB TEMP C 37.0 Temperature, Body LAB PHTC 7.35-7.45 pH, Temp 7.43 Corrected LAB PCO2T 34-46 mm Hg pCO2, Temp 33 Low Correct LAB PO2T mm Hg pO2, Temp 83 Corrected LAB NAB 135-146 mmol/L 143 Sodium,Whole Bld LAB KWB 3.5-5.0 mmol/L Potassium, 3.1 Low Whole Bld LAB HGBB 13.0-17.0 g/dL 7.9 Low Hemoglobin,Total, ACL LAB HCTB 39.0-51.0 % Hematocrit, 25 Low ACL LAB IC 1.08-1.30 mmol/L Calcium, 1.15 Ion, WB LAB GLB 60-105 mg/dL 144 High Glucose,Whole Bld LAB LACT 0.5-2.2 mmol/L Lactate 1.2 LAB ABGCOM Blood Gas O2 Comm, Art Administration Result Comment: 40% Performed By: #### ALLBG #### [facility] [address] [place], [place] [address] THERAPY NT Observed: 04/18/2018 Status: COMPLETED Source: [place] 3:01 PM [facility] REPOSITORY HNO ID: [id number] Author: Ekaterina Zabala Service: Physical Therapy Author Type: Physical Therapist Type: Therapy (PT/OT/Speech/Resp) Filed: 04/18/2018 3:02 PM Note Text: PHYSICAL THERAPY MISSED VISIT SERVICE DATE: 04/18/2018 SERVICE TIME: 1501 to 1501 ROOM: [place] [address] Attempted Evaluation. Patient not seen. Intubated and sedated today. Will reattempt at another time. SIGNATURE: Ekaterina Zabala PT PATIENT NAME: Lazaro Villafana DATE: April 18, 2018 TIME: 3:01 PM CASE MANAGEM Observed: 04/18/2018 Status: COMPLETED Source: [place] 11:10 AM [facility] REPOSITORY HNO ID: [id number] Author: aRi GhoshRn) BLAYNE Kramer Service: Care Management Author Type: Registered Nurse Type: Care Mgt Progress Note Filed: 04/18/2018 11:13 AM Note Text: CARE MANAGEMENT PROGRESS NOTE SERVICE DATE: 04/18/2018 SERVICE TIME: 11:10 AM LOS: 4 days Patient remains in SICU intubated and sedated, now off pressors, continues on TPN, Insulin and Octreotide with NG. Had right chest tube inserted 04/16 due to increased effusion, remains to suction. CTS following esophageal perforation, no plans for OR at this time. Laser Specialist to follow for discharge planning pending POC and medical stability. Needs Prior to Discharge: To Be Determined SIGNATURE: Rai Kramer RN PATIENT NAME: Lazaro Villafana DATE: April 18, 2018 TIME: 11:10 AM PAGER/CONTACT #: [phone] NURSING PROG Observed: 04/18/2018 Status: COMPLETED Source: [place] 10:06 AM [facility] REPOSITORY HNO ID: [id number] Author: Yanni Ferreira) BLAYNE Vazquez Service: (none) Author Type: Registered Nurse Type: Nursing Progress Note Filed: 04/18/2018 10:06 AM Note Text: Nursing Progress: Topic: RESTRAINT NON-VIOLENT PATIENT NAME: Lazaro Villafana PATIENT LOCATION: [place] [address] The patient demonstrates Attempting to Remove Medical Devices Vital to Medical Stability, Lack of Understanding/Ability to Comply with Safety Directions as evidenced by the following behaviors reaching for ETT and NG which pose an imminent danger to self or others. The following interventions were attempted but were not effective in protecting the patient's safety: Alarms, Bed in Low/Locked Position, Medications Reviewed, Modify Environment, Modify Equipment, Frequent Observation Next, a comprehensive assessment was performed and warranted placing the patient in Soft Bilateral Wrists, the least restrictive restraint needed to protect the patient's safety. Ongoing safety assessments and evaluation for earliest removal of restraints will be performed. DATE: April 18, 2018 TIME: 10:06 AM Yanni Vazquez RN CONSULT PROG Observed: 04/18/2018 Status: COMPLETED Source: [place] 9:27 AM [facility] REPOSITORY HNO ID: [id number] Author: Leena Li Service: Infectious Disease Author Type: Physician Type: Consult Progress Note Filed: 04/18/2018 12:45 PM Note Text: INFECTIOUS DISEASES PROGRESS NOTE Patient Name: Lazaro Villafana Account #: Data Unavailable Admission Date: 04/14/2018 Date of Evaluation: 04/18/2018 Time of Evaluation: 10:20 AM INTERVAL HPI: Afebrile since 04/16/18. Downtrending leukocytosis. EGD 04/15 could not stent lesion. Ongoing mediastinitis to be followed by thoracic surgery. MEDICATIONS: Current hospital medications: albuterol 2.5 mg/0.5 mL 2.5 mg nebulizer solution (PROVENTIL) 2.5 mg INHALATION q 4 H PRN cefepime 2 g in D5W 100 mL MB+ (MAXIPIME) 2 g INTRAVENOUS q 12 H Chlorhexidine Gluconate 0.12 % 15 mL (PERIDEX) 15 mL ORAL QID dextrose 50 % 12.5-25 g injection 25-50 mL INTRAVENOUS PRN fentaNYL 50 mcg/mL 25-50 mcg injection (SUBLIMAZE) 25-50 mcg INTRAVENOUS q 1 H PRN fluconazole 200 mg in NaCl (iso-osmotic) 100 mL (DIFLUCAN) 200 mg INTRAVENOUS DAILY insulin regular 250 units in NaCl 0.9% 250 mL iv infusion - ICU NOMOGRAM 0.5-30 Units/hr INTRAVENOUS CONTINUOUS insulin regular human iv bolus 2-10 Units 2-10 Units INTRAVENOUS PRN ipratropium-albuterol 3 mL nebulizer solution (DUONEB) 3 mL INHALATION q 4 H PRN lactated ringers infusion 5-30 mL/hr INTRAVENOUS CONTINUOUS metroNIDAZOLE 500 mg PREMIX piggyback (FLAGYL) 500 mg INTRAVENOUS q 8 H mupirocin 2% 0.5 g nasal ointment (BACTROBAN) 0.5 g NASAL BID NaCl 0.9% 3-5 mL 3-5 mL INTRAVENOUS q 12 H NORepinephrine 16 mg in D5W 250 mL (LEVOPHED) 0.6-50 mcg/min INTRAVENOUS CONTINUOUS octreotide 500 mcg in D5W 100 mL (SandoSTATIN) 50 mcg/hr INTRAVENOUS CONTINUOUS pantoprazole 40 mg injection (PROTONIX) 40 mg INTRAVENOUS BID AC (0600/1600) Parenteral Nutrition - Adult INTRAVENOUS ONCE TPN (2200 START) propofol infusion (DIPRIVAN) 5-60 mcg/kg/min INTRAVENOUS CONTINUOUS PHYSICAL EXAM: BP 130/69 Pulse 77 Temp 37.7 ?C (99.9 ?F) (Oral) Resp 24 Wt 107.4 kg (236 lb 12.4 oz) SpO2 94% BMI 33.97 kg/m? Lines: Mcclain 04/14, Nontunnelled triple lumen 04/14 in R neck, ET tube 04/14, NG in L nare 04/14, L radial A-line 04/14 ?GENERAL APPEARANCE: Patient is critically ill appearing. Sedated. SKIN: No lesions noted. EYES: PERRLA NOSE: Left Nare Ng tube in place. NECK: R nontunnelled triple lumen catheter with no overlying erythema, swelling or warmth. LUNGS: clear to auscultation, no wheezes, or crackles. HEART: ?Regular rate/rhythm, normal heart sounds, and no murmurs. ABDOMEN: Soft, epigastric tenderness, BS present. EXTREMITIES: Edema of hands b/l, no LE edema. NEURO: Sedated, not following commands. DIAGNOSTICS REVIEWED CBC: Recent Labs 04/18/18 0002 04/17/18 1744 04/17/18 0617 04/17/18 0019 04/16/18 1653 04/16/18 0841 04/16/18 0031 04/15/18 1637 WBC 6.79 7.91 11.97* 13.12* 10.22 10.27 4.84 9.57 HB 8.1* 8.2* 8.1* 8.4* 8.2* 8.4* 7.8* 6.4* HCT 24.1* 24.5* 24.8* 25.2* 24.2* 24.6* 22.6* 18.7* PLT 49* 51* 66* 61* 50* 59* 35* 48* MCV 89.6 89.4 89.5 90.6 88.6 86.0 86.6 84.2 RDWCV 16.4* 16.2* 16.2* 15.9* 15.7* 15.6* 15.2* 16.1* NEUTP 76.6 -- -- -- -- -- -- -- ABSNEUT 5.21 -- -- -- -- -- -- -- LYMPHP 13.3 -- -- -- -- -- -- -- MONOP 8.0 -- -- -- -- -- -- -- EODINP 1.8 -- -- -- -- -- -- -- CRP: No results found for: CRP COAG: Recent Labs 04/18/18 0002 04/17/18 0019 04/16/183004/15/18 0500 04/15/1834404/14/18211904/14/18 17004/14/18 1415 APTT 31.7 32.1 31.6 -- Unable to assay. Specimen improperly collected/handled. -- -- -- INR 1.3 1.3 1.4* 1.3 Unable to assay. Specimen improperly collected/handled. 1.3 1.35* 1.31* BMP: Recent Labs 04/18/18 0002 04/17/18 0019 04/16/183004/15/1834404/14/18211904/14/18169904/14/18 1415 GLUC 202* 229* 238* 359* 445* 545* 494* NA 142 137 139 136 140 136 135* K 3.6* 4.1 4.0 4.8 5.0 6.6* 5.3* CHLOR 109* 106* 103 98 100 102 102 CO2 21* 21* 23 23 24 22 22 ANION 12 10 13 15 16 19* 16 BUN 63* 69* 67* 74* 76* 73* 73* CREAT 1.80* 2.34* 1.97* 2.47* 2.71* 2.66* 2.21* CHEM: Recent Labs 04/18/18 0002 04/17/18 0019 04/16/18 0031 04/15/185 04/14/18211904/14/18169904/14/18 1415 ALB 2.4* 2.5* 2.7* 2.6* 2.4* 2.2* 2.7* TPROT 5.5* 5.6* 5.2* 5.2* 4.9* 5.1* 6.2* CA 7.5* 7.2* 7.2* 7.9* 7.1* 7.0* 8.0* MG 2.2 2.2 1.3* 1.7 1.3* -- -- HEPATIC: Recent Labs 04/18/18 0002 04/17/18 0019 04/16/18 0031 04/15/18 0345 04/14/18 2120 04/14/18 1700 04/14/18 1415 ALKPHOS 49 48 41 47 50 64 76 ALT 16 19 22 23 23 27 29 AST 30 30 39 44* 36 28 29 TBILI 0.6 1.0 1.5* 0.4 0.7 0.7 0.7 URINALYSIS: Recent Labs 04/18/18 0631 04/18/18 0003 04/17/18 1226 04/17/18 0921 04/17/18 0440 04/17/18 0033 04/16/18 1917 04/16/18 0914 04/16/18 0613 04/14/18 1455 PH 7.45 7.45 7.40 -- 7.37 7.36 7.36 7.36 7.42 < > -- SPGR -- -- -- 1.017 -- -- -- -- -- -- 1.021 UGLUC -- -- -- Negative -- -- -- -- -- -- >=1000* UBILI -- -- -- Negative -- -- -- -- -- -- NEGATIVE UKET -- -- -- Negative -- -- -- -- -- -- NEGATIVE UHB -- -- -- 2+* -- -- -- -- -- -- -- UPROT -- -- -- Negative -- -- -- -- -- -- NEGATIVE UROBIL -- -- -- -- -- -- -- -- -- -- 0.2 UWBC -- -- -- 0-5 -- -- -- -- -- -- 0.4 < > = values in this interval not displayed. micro and radiology personally reviewed IMPRESSION / PLAN 52 yo M with a h/o cirrhosis, EtoH related, CKD, COPD and reported + PPD in the past. Currently no clinical or imaging evidence of active pulmonary TB. Presenting with hemorrhagic shock secondary to hematemesis/esophageal tear c/b pneumomediastinum. ? Plan: - continue cefepime, metronidazole, fluconazole as ordered Discussed with attending, Perla Delgado PGY4 [facility] STAFF PHYSICIAN NOTE OF PERSONAL INVOLVEMENT IN CARE Events reviewed. Patient examined. Findings as outlined in the fellow's note above. Jang elements verified. ? Relevant lab data, microbiology and imaging data reviewed. Relevant images personally reviewed. ? Agree with assessment and plan as outlined in the fellow's note above. I was physically present for the critical portions of the service provided by the ID team. The management plan reflects my input. ? Dr Meliton Ac will cover me tomorrow, please call with questions Marguerite Li MD Staff, Department of Infectious Disease Pager: [phone] April 18, 2018 12:45 PM PROGRESS Observed: 04/18/2018 Status: COMPLETED Source: [place] 8:50 AM [facility] RE[facility]IT[facility] ID: [id number] Author: [place] Service: Critical Care Author Type: Physician Type: Progress Notes Filed: 04/18/2018 1:00 PM Note Text: SURGICAL INTENSIVE CARE UNIT PROGRESS NOTE SERVICE DATE: April 18, 2018 SERVICE TIME: 8:50 AM SICU day: 4 Hospital day: 4 Subjective PROCEDURE: 04/14 Hematemesis s/p EGD at OSH c/b esophageal laceration vs perforation vs esophageal variceal bleeding admitted from OSH for surgical evaluation and hemodynamic monitoring. ? MAJOR ISSUES: Esophageal perforation Mediastinitis Septic shock Leukocytosis Tachycardia Hypotension LIANE Hypoalbuminemia Acute blood loss anemia GI Bleeding Thrombocytopenia Subjective: intubated and sedated. No acute events overnight. Objective VITAL SIGNS Temp: 37.7 ?C (99.9 ?F) Pulse: 80 BP: 130/74 MAP Non Invasive (Mean Arterial Pressure): 94 Resp: 18 SpO2: 100 % Not applicable Current Facility-Administered Medications: albuterol 2.5 mg/0.5 mL 2.5 mg nebulizer solution (PROVENTIL) 2.5 mg INHALATION q 4 H PRN cefepime 2 g in D5W 100 mL MB+ (MAXIPIME) 2 g INTRAVENOUS q 12 H Chlorhexidine Gluconate 0.12 % 15 mL (PERIDEX) 15 mL ORAL QID dextrose 50 % 12.5-25 g injection 25-50 mL INTRAVENOUS PRN fentaNYL 50 mcg/mL 25-50 mcg injection (SUBLIMAZE) 25-50 mcg INTRAVENOUS q 1 H PRN fluconazole 200 mg in NaCl (iso-osmotic) 100 mL (DIFLUCAN) 200 mg INTRAVENOUS DAILY insulin regular 250 units in NaCl 0.9% 250 mL iv infusion - ICU NOMOGRAM 0.5-30 Units/hr INTRAVENOUS CONTINUOUS insulin regular human iv bolus 2-10 Units 2-10 Units INTRAVENOUS PRN ipratropium-albuterol 3 mL nebulizer solution (DUONEB) 3 mL INHALATION q 4 H PRN lactated ringers infusion 5-30 mL/hr INTRAVENOUS CONTINUOUS metroNIDAZOLE 500 mg PREMIX piggyback (FLAGYL) 500 mg INTRAVENOUS q 8 H mupirocin 2% 0.5 g nasal ointment (BACTROBAN) 0.5 g NASAL BID NaCl 0.9% 3-5 mL 3-5 mL INTRAVENOUS q 12 H NORepinephrine 16 mg in D5W 250 mL (LEVOPHED) 0.6-50 mcg/min INTRAVENOUS CONTINUOUS octreotide 500 mcg in D5W 100 mL (SandoSTATIN) 50 mcg/hr INTRAVENOUS CONTINUOUS pantoprazole 40 mg injection (PROTONIX) 40 mg INTRAVENOUS BID AC (0600/1600) Parenteral Nutrition - Adult INTRAVENOUS ONCE TPN (2200 START) propofol infusion (DIPRIVAN) 5-60 mcg/kg/min INTRAVENOUS CONTINUOUS Cardiovascular: Regular rhythm Abdomen: Soft and Positive bowel sounds Extremities: restraints. Minimal edema Neuro: Sedated Pulm: coarse breath sounds, symmetric, chest tube right side. Intubated Renal: mcclain GI: NG tube Intake/Output Summary (Last 24 hours) at 04/18/18 0850 Last data filed at 04/18/18 0800 Gross per 24 hour Intake 2703.4 ml Output 3245 ml Net -541.6 ml Current Weight: Weight: 107.4 kg (236 lb 12.4 oz) Admission Weight: Weight: 106.1 kg (233 lb 14.5 oz) RESPIRATORY Mechanical Ventilation: Vent Mode: PC SIMV Freq (bpm): 24 PS (cmH20): 10 PEEP / CPAP (cmH20): 8 FIO2 (%): 30 Recent Labs 04/18/18 0631 04/18/18 0003 PH 7.45 7.45 PO2 104* 65* PCO2 33* 30* BE NEG 1 NEG 3 HCO3 23 21* LACT 1.3 0.8 Clinical Exam: Coarse breath sounds Breath Sounds Equal: Yes CXR Findings: Pleural effusion Right. Similar to previous day CXR INFUSION(S): Insulin, Propofol and octreotide Patient Lines Assessed: Lines, Drains, and Airways Line Arterial Line 04/14/180 Arterial Line Left Radial 3 days Central Line Triple Lumen 04/14/189 Non-tunneled Right Neck 3 days Peripheral 04/14/18 2344 Left Antecubital 18 Gauge 3 days Drain GI Feed/Drain 04/14/182318 Nasogastric Left Naris 16 Fr 3 days Indwelling Urinary Catheter 04/14/182113 Admission to Hospital Mcclain 3 days Chest Tube 04/16/18 2100 Right 28 Fr 1 day Airway Airway Endotracheal Tube 04/14/182114 3 days Diagnostic tests reviewed for today's visit: Most recent labs and imaging results. Assessment/Plan Mr.?Howard Villafana is a 52-year-old male with PMHx type II DM, poorly controlled HTN, CKD, COPD, tobacco smoker 2-3 PPD, alcohol use disorder with recent diagnosis of cirrhosis was transferred from OSH with an esophageal perforation seen on EGD. Patient initially presented with hematemesis and melena with accompanying dizziness and shortness of breath. Now being admitted to the SICU for surgical evaluation and hemodynamic monitoring. ? Neuro:?hx of heavy EtOH use, last drink on 04/13 -- tachypnea requiring intubation at OSH --Sedation with dexmedetomidine for history of heavy EtOH use. On propofol gtt. -- per , he previously drank 3 cider ales daily up until 1 month ago, around when he learned about his cirrhosis diagnosis. She notes that he had 2 drinks on 04/13. --thiamine and folic acid -- PRN fentanyl ? CV:? -- s/p levophed. Stopped 0750. 04/17. -- Goal MAP >65 - 04/17 CXR - improved aeration of the right lung with interval decrease in the right pleural effusion and associated atelectasis. ?Small right pleural effusion with right lower lobe atelectasis remains. - lactate 04/17 - 1.0 ? Pulm:??Hx of COPD. Intubated. Vent Mode: PC CMV Freq (bpm): 12 PS (cmH20): 10 PEEP / CPAP (cmH20): 8 FIO2 (%): 50 --Continue home bronchodilators --BPH, duonebs prn -- Chest tube output remains high - will maintain wall suction. Continue intubation ? Renal:??(baseline Cr ~1.2 from 02/2018) -- LIANE; most likely pre-renal. Cr 1.8 , downtrending -- UOP 2.6 --Monitor Cr and I/Os --Mcclain ? GI:?Likely partial thickness esophageal perforation. Presented from OSH on 04/14 with hematemesis, melena dizziness and SOB. EtOH cirrhosis with portal HTN, grade 2 esophageal varices -- EGD at OSH showed no mediastinal air -- 04/15 CT chest/abd/pel - mid distal esophageal tear 5.4cm from T6-T8. Small amount of enteric contrast extravasation and pneumomediastinum. - 04/15 EGD by GI - deep esophageal tear, not amenable to esophageal stenting --Pantoprazole for GI ppx and ocreotide gtt for at least 7 days (started 04/14) per GI --NPO, TPN --NGT repositioned by GI - DO NOT MANIPULATE BLINDLY -- thoracic does not recommend open surgical intervention. Perforation appears to be contained. Likely iatrogenic tear from prior tube placement. -- may develop mediastinal abscess within the next few days -- consider TF, need for post-pyloric feeds, method of placement (IR vs GI) - discuss with thoracic surg -- lactulose enema 04/18 ? Heme:? -- Hgb 8.1 -- thrombocytopenia. Will watch for signs of bleeding and need for further transfusion --Transfuse to keep Hgb >7 ? Fluid/Electrolyte/Nutrition: --NPO --Replete lytes as one time dosing -- TPN -- lr kvo ? Endo:?Hx of IDDM, HgbA1c 8.2. - glucose 140-222; BG goal 130-180 --Continue insulin gtt ? ID:?Esohageal tear and perforation. aztreonam and flagyl at OSH Febrile 38.8 @ 2000 on 04/16. WBC 10 > 13 BCx, UA - 04/17 Concern for mediastinitisis. ? Cultures/labs: - 04/14 blood culture - NGTD - 04/17 blood culture - NGTD - 04/17 UA - no indication of UTI - 04/14 TB blood screen - negative - 04/14 procalcitonin 2.67 ? - empiric coverage with cefepime, fluconazole, flagyl - end date in 1 month - allergy consult for skin test. 04/18. - ID following, appreciate recs ? PPX: - GI ppx - pantoprazole - VTE ppx - holding given concern for bleeding, thrombocytopenia PLAN - ordered TPN - will monitor UOP and Hemodynamics. S/p 250 cc LR x 2 Medication and Non-Pharmacologic VTE Prophylaxis/Anticoagulants 04/14/18 2100 pneumatic compression stockings (nc,ut) 04/14/182099 activity - mobilize patient ([place], [place]) VTE Prophylaxis: holding given risk for bleeding SIGNATURE: García Bah MD, PGY-1 resident PATIENT NAME: Lazaro Villafana DATE: April 18, 2018 TIME: 8:50 AM PAGER/CONTACT #: [phone] SICU STAFF PHYSICIAN NOTE OF PERSONAL INVOLVEMENT IN CARE I have reviewed the progress note obtained and documented by the resident and I personally participated in the jang components as documented above regarding the following problems or issues and made appropriate changes below. Upon my evaluation, this patient had a high probability of imminent or life-threatening deterioration, which required my direct attention, intervention, personal management and decision making. EXAMINATION: intubated, sedated CXR rt effusion/atelectasis -ct and ett ok ACTIVE ISSUES AND PLAN: Neuro: Sedated with propofol while intubated but intact - continue sedation Resp: Intubated on 40% +8 - will continue vent today, begin weaning as able as long as remains stable hemodynamically off levo. Maintain Rt CT as continues to drain Car: Weaned off levo overnight - continue to monitor Renal: LIANE improving with Cr 1.8 with adeq uop, negative fluid balance - follow and aim for neg fluid balance again today GI / FEN / NTN: Thoracic feels no indication for surgical intervention - will discuss with them possibility of enteral access (place ft under direct vision) or TPN for 2 weeks, continue current TPN . Lactulose enema for BM. Cont Octreotide for 7 days total per GI rec's. Endo: Adeq glucose control on insulin drip, continue Heme: stable H/H and remains thrombocytopenic at 49k - follow closely, no indication for transfusion at present ID: Cont Cefepime, Fluconazole and Flagyl for possible mediastinitis with esophageal laceration / perf? WBC 6.8 - follow and will also have allergy see pt for unknown PCN allergy to potentially consolidate abx coverage Prophylaxis GI and mechanical DVT DIAGNOSiS / ISSUES / PROBLEMS:: Esophageal laceration Mediastinitis Pleural effusion Hypotension - resolved Acute respiratory insufficiency Acute blood loss anemia DM with hyperglycemia LIANE Close monitoring of the following has been required: respiratory status, cardiac status, mental status, urinary output, renal function, acute GI bleeding and infection DISPOSITION: SICU I devoted my full attention to the direct care of this patient for the amount of time indicated below, time includes review of laboratory data, radiology results, discussion with consultants, and monitoring for potential decompensation. Time I spent with family or surrogate(s) is included only if the patient was incapable of providing the necessary information or participating in medical decision making. Time devoted to teaching and to any procedures I billed separately is not included. Time spent providing critical care services: 40 minutes. SIGNATURE: RIVERA B[place] MD DATE: April 18, 2018 1:00 PM NUTRITION Observed: 04/18/2018 Status: COMPLETED Source: [place] 7:26 AM [facility] ID: [id number] Author: Brendon Meneses Service: NST-Nutrition Support Team Author Type: Registered Dietitian Type: Nutrition Filed: 04/18/2018 11:16 AM Note Text: NUTRITION SUPPORT TEAM PROGRESS NOTE SERVICE DATE: 04/18/2018 SERVICE TIME: 10:13 am RECOMMENDED DIAGNOSIS: MILD PROTEIN-CALORIE MALNUTRITION per Registered Dietitian NUTRITION CARE PLAN Intervention: 1. Continue TPN -- 110 g 15% AA, 500 kcal dextrose, 940 total kcal/day Added Kphos Increased K-acet Lowered K-acet Increased insulin to 20u 2. No lipids given propofol around 765 kcals/day Monitor and Evaluation: Goal: Meet >75% of estimated needs Discharge Nutrition Recommendations: To be determined Per HPI: 52 year old male with a history of type II DM, poorly controlled HTN, CKD, COPD, tobacco smoker 2-3 PPD, alcohol use disorder with recent diagnosis of cirrhosis was transferred from OSH with an esophageal perforation seen on EGD. Patient initially presented with hematemesis and melena with accompanying dizziness and shortness of breath. Transferred to [facility] on 04/14 for further management. Interval History: remains intubated, sedated on propofol. On octreotide, insulin gtt. TPN continues. Hx of intakes Retail [employer]: unknown 04/17: currently <50% of needs the last 5 days, starting TPN tonight for prolonged NPO plan 04/18: currently goal kcals, PN 940 kcals, 110 g pro + propofol 765 kcals/day Dosing weight: 106 kg Calorie needs [id number] kilocalories determined by = 15-20 kcals/kg Dosing weight Protein needs: 106-127 grams determined by 1.0-1.2 g/kg Dosing weight - due to CKD Admission Weight: 106.1 kg (233 lb 14.5 oz) Current Weight: 107.4 kg (236 lb 12.4 oz) BMI 30.55 based on dry weight Weight hx: ubw unknown, limited wt hx. Last dry wt known 213#, 96.8 kg. Fluid shifts here. IBW: 75.45 kg Recent Labs 04/18/18 0002 GLUC 202* BUN 63* CREAT 1.80* NA 142 K 3.6* CHLOR 109* CO2 21* ALB 2.4* P 2.5* HB 8.1* HCT 24.1* WBC 6.79 MG 2.2 Pertinent meds: LR, flagyl, protonix, propofol, octreotide Enteral/parenteral access: NG large bore not being used for nutrition; R 3L IJ placed 04/14 tip in SVC MNT Billing Type: Re-assess/15 min 2 units SIGNATURE: Brendon Meneses, MS RD [facility] PATIENT NAME: Lazaro Villafana DATE: April 18, 2018 TIME: 7:26 AM PAGER: [phone] GASA + ALL Collected: 04/18/2018 Status: F Source: [place] FOR 6:31 AM [facility] USE ONLY REPOSITORY TYPE CODE TESTS RESULT OUT OF REFERENCE UNITS RANGE LAB PH 7.35-7.45 pH 7.45 LAB PCO2 34-46 mm Hg pCO2 Low 33 LAB PO2 85-95 mm Hg pO2 High 104 LAB BE mmol/L Base Excess NEG 1 LAB HCO3 22-26 mmol/L Bicarbonate 23 LAB CO2CT 22.0-28.0 mmol/L CO2 Content 24 LAB O2HB 95-98 % Oxyhemoglobin, Art. 97 LAB COHB 0-5.0 % Carboxyhemoglobin,A 0.7 rt LAB MHGB 0.4-1.5 % Methemoglobin 0.8 LAB TEMP C Temperature, Body 37.0 LAB PHTC 7.35-7.45 pH, Temp Corrected 7.45 LAB PCO2T 34-46 mm Hg pCO2, Temp Low Correct 33 LAB PO2T mm Hg pO2, Temp Corrected 104 LAB NAB 135-146 mmol/L Sodium,Whole Bld 142 LAB KWB 3.5-5.0 mmol/L Potassium, Whole Bld 3.5 LAB HGBB 13.0-17.0 g/dL Low Hemoglobin,Total,AC 7.7 L LAB HCTB 39.0-51.0 % Hematocrit, ACL Low 24 LAB IC 1.08-1.30 mmol/L Calcium, Ion, WB 1.14 LAB GLB 60-105 mg/dL Glucose,Whole Bld High 167 LAB LACT 0.5-2.2 mmol/L Lactate 1.3 Performed By: #### ALLBG #### [facility] [address] [place] [id number] PROGRESS Observed: 04/18/2018 Status: COMPLETED Source: [place] 5:14 AM [facility] REPOSITORY [facility] ID: [id number] Author: Ted (Nicolette Proctor MD Service: General Surgery Author Type: Resident Type: Progress Notes Filed: 04/18/2018 2:34 PM Note Text: GENERAL SURGERY PROGRESS NOTE ASSESSMENT AND PLAN 52 year old male with PMHx type II DM, poorly controlled HTN, CKD, COPD, tobacco smoker 2-3 PPD, alcohol use disorder with recent diagnosis of cirrhosis w/ esophageal varices who presents on transfer from OSH with hematemesis s/p EGD at OSH c/b esophageal laceration that appears to be contained; MELD > 20 - would like to start trickle TF thru NG if ok with thoracic ADDENDUM: will hold on TF after discussing w/ thoracic - No surgical intervention planned - Thoracic surgery following -supportive care - trend labs - ICU *After 6pm and on weekends please page general surgery director of early childhood education [phone]* SUBJECTIVE/INTERVAL EVENTS Off pressors, still intubated, 640 cc from chest tube OBJECTIVE BP 106/54 Pulse 77 Temp 37.7 ?C (99.9 ?F) (Oral) Resp 17 Wt 107.4 kg (236 lb 12.4 oz) SpO2 97% BMI 33.97 kg/m? Intake/Output Summary (Last 24 hours) at 04/17/18 0659 Last data filed at 04/17/18 0600 Gross per 24 hour Intake 2540.1 ml Output 2325 ml Net 215.1 ml General: sedated, ill appearing CV: on pressors Pulm: vent Neck: no subQ crepitus appreciated Abdomen: soft Neuro: limited exam 05/21 sedation Labs/Imaging: CBC, BMP, MG, PHOS Recent Labs 04/18/18 0002 04/17/18 1744 04/17/18 0617 04/17/18 0019 04/16/18 0031 04/15/18 0345 WBC 6.79 7.91 11.97* 13.12* < > 4.84 < > 15.85* HB 8.1* 8.2* 8.1* 8.4* < > 7.8* < > 8.1* HCT 24.1* 24.5* 24.8* 25.2* < > 22.6* < > 23.4* PLT 49* 51* 66* 61* < > 35* < > 90* NA 142 -- -- 137 -- 139 -- 136 K 3.6* -- -- 4.1 -- 4.0 -- 4.8 CHLOR 109* -- -- 106* -- 103 -- 98 CO2 21* -- -- 21* -- 23 -- 23 BUN 63* -- -- 69* -- 67* -- 74* CREAT 1.80* -- -- 2.34* -- 1.97* -- 2.47* GLUC 202* -- -- 229* -- 238* -- 359* CA 7.5* -- -- 7.2* -- 7.2* -- 7.9* MG 2.2 -- -- 2.2 -- 1.3* -- 1.7 P 2.5* -- -- 4.3 -- 2.6* -- 2.9 < > = values in this interval not displayed. Liver Function, Amylase, AND Lipase Recent Labs 04/18/18 0003 04/18/18 0002 04/17/18 1226 04/17/18 0440 04/17/18 0033 04/17/18 0019 04/16/18 0031 04/15/18 0345 TPROT -- 5.5* -- -- -- 5.6* -- 5.2* -- 5.2* ALB -- 2.4* -- -- -- 2.5* -- 2.7* -- 2.6* ALT -- 16 -- -- -- 19 -- 22 -- 23 AST -- 30 -- -- -- 30 -- 39 -- 44* ALKPHOS -- 49 -- -- -- 48 -- 41 -- 47 TBILI -- 0.6 -- -- -- 1.0 -- 1.5* -- 0.4 LACT 0.8 -- 1.0 1.4 1.8 -- < > -- < > -- < > = values in this interval not displayed. Coags Recent Labs 04/18/18 0002 04/17/18 0019 04/16/18 0031 04/15/18 0500 04/15/18 0345 APTT 31.7 32.1 31.6 -- Unable to assay. Specimen improperly collected/handled. INR 1.3 1.3 1.4* 1.3 Unable to assay. Specimen improperly collected/handled. Active Hospital Problems Diagnosis Date Noted - Mild protein-calorie malnutrition (HCC) 04/17/2018 - Esophageal perforation 04/14/2018 Ted Proctor MD [id number] XR CHEST 1V FRONTAL Observed: 04/18/2018 Status: F Source: [facility] 4:[address] [facility] REPOSITORY * * *Final Report* * * DATE OF EXAM: Apr 18 2018 4:07AM [facility] [id number] - XR CHEST 1V FRONTAL PORT / PROCEDURE REASON: Acute respiratory illness * * * * Physician Interpretation * * * * EXAMINATION: CHEST RADIOGRAPH (PORTABLE SINGLE VIEW AP) Exam Date/Time: 04/18/2018 4:07 AM Clinical History: Acute respiratory illness, MQ: [id number] Comparison: 1 day prior RESULT: See impression. IMPRESSION: Lines, tubes, and devices: Patient is intubated with nasogastric tube, right IJ CVC and right-sided chest tube. Lungs and pleura: There is a partially loculated medium-size right pleural effusion with adjacent airspace consolidation, either aspiration/pneumonia. Patchy opacities are in the left lung. Findings are essentially stable from the prior exam. No large pneumothorax is identified. Cardiomediastinal silhouette: The cardiomediastinal silhouette is unchanged. Other: . Steel Turner: NIDHI Transcribe Date/Time: Apr 18 2018 8:53A Dictated by : SHILPI THAKUR MD This examination was interpreted and the report reviewed and electronically signed by: SHILPI THAKUR MD on Apr 18 2018 8:54AM EST [id number] GASA + ALL Collected: 04/18/2018 Status: F Source: [place] FOR 12:03 AM [facility] USE ONLY REPOSITORY TYPE CODE TESTS RESULT OUT OF REFERENCE UNITS RANGE LAB PH 7.35-7.45 pH 7.45 LAB PCO2 34-46 mm Hg pCO2 Low 30 LAB PO2 85-95 mm Hg pO2 Low 65 LAB BE mmol/L Base Excess NEG 3 LAB HCO3 22-26 mmol/L Bicarbonate Low 21 LAB CO2CT 22.0-28.0 mmol/L CO2 Content Low 21 LAB O2HB 95-98 % Oxyhemoglobin, Low Art. 92 LAB COHB 0-5.0 % Carboxyhemoglobin,A 0.8 rt LAB MHGB 0.4-1.5 % Methemoglobin 0.9 LAB TEMP C Temperature, Body 37.0 LAB PHTC 7.35-7.45 pH, Temp Corrected 7.45 LAB PCO2T 34-46 mm Hg pCO2, Temp Low Correct 30 LAB PO2T mm Hg pO2, Temp Corrected 65 LAB NAB 135-146 mmol/L Sodium,Whole Bld 141 LAB KWB 3.5-5.0 mmol/L Potassium, Whole Low Bld 3.0 LAB HGBB 13.0-17.0 g/dL Low Hemoglobin,Total,AC 7.4 L LAB HCTB 39.0-51.0 % Hematocrit, ACL Low 23 LAB IC 1.08-1.30 mmol/L Calcium, Ion, WB Low 1.03 LAB GLB 60-105 mg/dL Glucose,Whole Bld High 184 LAB LACT 0.5-2.2 mmol/L Lactate 0.8 Performed By: #### ALLBG #### [facility] [address] [place], [place] [address] PROTIME Collected: 04/18/2018 Status: F Source: [place] 12:02 AM [facility] REPOSITORY TYPE CODE TESTS RESULT OUT OF RANGE REFERENCE UNITS LAB PSEC 9.7-13.0 sec High PT Sec 13.6 LAB INR 0.9-1.3 PT INR 1.3 Result Comment: Vitamin K Antagonist (VKA) Therapeutic Range: INR 2 to 3 (Target INR of 2.5) Note: For patients treated with VKA drugs, such as warfarin, the [place] [employer] 2012 Guideline recommends a therapeutic INR range of 2 to 3 (target INR of 2.5). This recommendation includes high-risk patients with antiphospholipid syndrome with previous arterial or venous thromboembolism, current-generation mechanical or bioprosthetic aortic heart valve replacement. Note: Patients with mechanical aortic valve replacement and additional risk factors for thromboembolic events (atrial fibrillation, previous thromboembolism, LV dysfunction, hypercoagulable conditions) or an older generation mechanical AVR (i.e., ball in-Cage) or any mechanical MVR should have a INR therapeutic range of 2.5 to 3.5 (target INR of 3). Serjio GH, et al. Chest 2012, 141:7S-47S Rashida RA, et al. [facility] 2017, 70: 252-289 Performed By: #### PT, PTT, CBCDIF, CMP, MG1, PHOS #### [facility] [address] [place], [place] [address] APTT Collected: 04/18/2018 Status: F Source: [place] 12:02 AM [facility] REPOSITORY TYPE CODE TESTS RESULT OUT OF RANGE REFERENCE UNITS LAB APTT 23.0-32.4 sec APTT 31.7 Result Comment: Unfractionated Heparin Therapeutic Ranges: Standard Heparin Nomogram: 53 to 78 seconds (anti-Xa level of 0.3 to 0.7 U/ml) Low Dose/ACS Nomogram: 49 to 67 seconds (anti-Xa level of 0.2 to 0.5 U/ml) Stroke Treatment Nomogram: 49 to 67 seconds (anti-Xa level of 0.2 to 0.5 U/ml) Note: The APTT therapeutic range has been determined for the current lot of laboratory APTT reagent in use throughout the [facility]. Performed By: #### PT, PTT, CBCDIF, CMP, MG1, PHOS #### [facility] [address] [id number] CBC AND DIFFERENTIAL Collected: 04/18/2018 Status: F Source: [place] 12:02 [facility] REPOSITORY TYPE CODE TESTS RESULT OUT OF REFERENCE UNITS RANGE LAB WBC 3.70-11.00 k/uL WBC 6.79 LAB RBC 4.20-6.00 m/uL Low RBC 2.69 LAB HGB 13.0-17.0 g/dL Low Hemoglobin 8.1 LAB HCT 39.0-51.0 % Low Hematocrit 24.1 LAB MCV 80.0-100.0 fL MCV 89.6 LAB MCH 26.0-34.0 pG MCH 30.1 LAB MCHC 30.5-36.0 g/dL MCHC 33.6 LAB RDWCV 11.5-15.0 % RDW-CV High 16.4 LAB PLTCT 150-400 k/uL Low Platelet Count 49 Result Comment: No clot detected. LAB MPV 9.0-12.7 fL MPV 11.8 LAB ANEUT % Neut% 76.6 LAB AANEUT 1.45-7.50 k/uL Abs Neut 5.21 LAB ALYMP % Lymph% 13.3 LAB AALYMP 1.00-4.00 k/uL Low Abs Lymph 0.90 LAB AMONO % Hendry% 8.0 LAB AAMONO <0.87 k/uL Abs Hendry 0.54 LAB AEOS % Eosin% 1.8 LAB AAEOS <0.46 k/uL Abs Eosin 0.12 LAB ABASO % Baso% 0.3 LAB AABASO <0.11 k/uL Abs Baso <0.03 LAB AUNRBC 0 /100 WBC NRBCs High 0.3 LAB ABNRBC <0.01 k/uL High Absolute nRBC 0.02 LAB DTYP DTYPE Auto Diff Performed By: #### PT, PTT, CBCDIF, CMP, MG1, PHOS #### [facility] [address], [place] [address] COMP METABOLIC PANEL Collected: 04/18/2018 Status: F Source: [place] 12:[address] [facility] REPOSITORY TYPE CODE TESTS RESULT OUT OF REFERENCE UNITS RANGE LAB TP 6.3-8.0 g/dL Low Protein, Total 5.5 LAB ALB 3.9-4.9 g/dL Low Albumin 2.4 LAB CA 8.5-10.2 mg/dL Low Calcium, Total 7.5 LAB TBIL 0.2-1.3 mg/dL Bilirubin, Total 0.6 LAB ALKP 38-113 U/L Alkaline Phosphatase 49 LAB AST 14-40 U/L AST 30 LAB GLU 74-99 mg/dL Glucose High 202 Result Comment: The [place] [employer] (ADA) provides guidance for cutoff values for fasting glucose and random glucose. The ADA defines fasting as no caloric intake for at least 8 hours. Fas ting plasma glucose results between 100 to 125 mg/dL indicate increased risk for diabetes (prediabetes). Fasting plasma glucose results greater than or equal to 126 mg/dL meet the criteria for diagnosis of diabetes. In the absence of unequivocal hyperglycemia, results should be confirmed by repeat testing. In a patient with classic symptoms of hyperglycemia or hyperglycemic crisis, random plasma glucose results greater than or equal to 200 mg/dL meet the criteria for diagnosis of diabetes. Reference: Standards of Medical Care in Diabetes 2016, [place] [employer] Association. Diabetes Care. 2016.39(Suppl 1). LAB BUN 9-24 mg/dL BUN High 63 LAB CRET 0.73-1.22 mg/dL Creatinine High 1.80 LAB NA 136-144 mmol/L Sodium 142 LAB K 3.7-5.1 mmol/L Low Potassium 3.6 LAB CL 97-105 mmol/L Chloride High 109 LAB CO2 22-30 mmol/L Low CO2 21 LAB AGAP 9-18 mmol/L Anion Gap 12 LAB ALT 10-54 U/L ALT 16 LAB GFRAA eGFR- Amer. 49 LAB GFRNAA . eGFR-All Other Races 40 Result Comment: eGFR (Estimated GFR) Units of measure: mL/min/1.73 meters squared eGFR is derived from the reexpressed MDRD Study equation using the following parameters: serum creatinine, age, gender and race. The creatinine assay has been calibrated to be traceable to IDMS. An eGFR <60 mL/min/1.73m2 for >3 months is consistent with chronic kidney disease. Refer to KDOQI guidelines for clinical interpretation. In patients with unstable renal function, e.g. those with acute kidney injury, the eGFR may not accurately reflect actual GFR. Performed By: #### PT, PTT, CBCDIF, CMP, MG1, PHOS #### [facility] [address] [address] MAGNESIUM Collected: 04/18/2018 Status: F Source: [place] 12:02 AM [facility] REPOSITORY TYPE CODE TESTS RESULT OUT OF REFERENCE UNITS RANGE LAB MG 1.7-2.3 mg/dL Magnesium 2.2 Performed By: #### PT, PTT, CBCDIF, CMP, MG1, PHOS #### [facility] [address] PHOSPHORUS Collected: 04/18/2018 Status: F Source: [place] 12:02 AM [facility] REPOSITORY TYPE CODE TESTS RESULT OUT OF REFERENCE UNITS RANGE LAB PHOS 2.7-4.8 mg/dL Low Phosphorus 2.5 Performed By: #### PT, PTT, CBCDIF, CMP, MG1, PHOS #### [address] [address] CBC Collected: 04/17/2018 Status: F Source: [place] 5:44 PM [facility] REPOSITORY TYPE CODE TESTS RESULT OUT OF REFERENCE UNITS RANGE LAB WBC 3.70-11.00 k/uL WBC 7.91 LAB RBC 4.20-6.00 m/uL Low RBC 2.74 LAB HGB 13.0-17.0 g/dL Low Hemoglobin 8.2 LAB HCT 39.0-51.0 % Low Hematocrit 24.5 LAB MCV 80.0-100.0 fL MCV 89.4 LAB MCH 26.0-34.0 pG MCH 29.9 LAB MCHC 30.5-36.0 g/dL MCHC 33.5 LAB RDWCV 11.5-15.0 % RDW-CV High 16.2 LAB PLTCT 150-400 k/uL Low Platelet Count 51 Result Comment: Result checked and verified No clot detected. LAB MPV 9.0-12.7 fL MPV 11.7 LAB ABSNUC <0.01 k/uL High Absolute nRBC 0.01 Performed By: #### CBC #### [facility] [address] [address] Observed: 04/17/2018 Status: F Source: [place] BLOOD CULTURE 3:13 PM [facility] REPOSITORY Culture Result - No growth 5 days Performed By: #### BLCUL #### [facility] [address] [id number] Observed: 04/17/2018 Status: F Source: [place] BLOOD CULTURE 12:55 PM [facility] REPOSITORY Culture Result - No growth 5 days Performed By: #### BLCUL #### [id number] [id number] GASA + ALL Collected: 04/17/2018 Status: F Source: [place] FOR 12:26 PM [facility] RADIANCE USE ONLY REPOSITORY TYPE CODE TESTS RESULT OUT OF REFERENCE UNITS RANGE LAB PH 7.35-7.45 pH 7.40 LAB PCO2 34-46 mm Hg pCO2 38 LAB PO2 85-95 mm Hg pO2 128 High LAB BE mmol/L Base Excess NEG 1 LAB HCO3 22-26 mmol/L Bicarbonate 23 LAB CO2CT 22.0-28.0 mmol/L CO2 Content 24 LAB O2HB 95-98 % 98 Oxyhemoglobin, Art. LAB COHB 0-5.0 % 1.0 Carboxyhemoglobin ,Art LAB MHGB 0.4-1.5 % 0.5 Methemoglobin LAB TEMP C 37.0 Temperature, Body LAB PHTC 7.35-7.45 pH, Temp 7.40 Corrected LAB PCO2T 34-46 mm Hg pCO2, Temp 38 Correct LAB PO2T mm Hg pO2, Temp 128 Corrected LAB NAB 135-146 mmol/L 138 Sodium,Whole Bld LAB KWB 3.5-5.0 mmol/L Potassium, 3.6 Whole Bld LAB HGBB 13.0-17.0 g/dL 7.7 Low Hemoglobin,Total, ACL LAB HCTB 39.0-51.0 % Hematocrit, 24 Low ACL LAB IC 1.08-1.30 mmol/L Calcium, 1.09 Ion, WB LAB GLB 60-105 mg/dL 163 High Glucose,Whole Bld LAB LACT 0.5-2.2 mmol/L Lactate 1.0 LAB ABGCOM Blood Gas O2 Comm, Art Administration Result Comment: 50% LAB ACBDTE [id number] Notify Date, Art LAB ACBTME [id number] Notify Time, Art Performed By: #### ALLBG #### [facility] [address] [place], [place] [address] CONSULT Observed: 04/17/2018 Status: COMPLETED Source: [place] 10:34 AM [facility] REPOSITORY HNO ID: [id number] Author: Katie Calderón Service: NST-Nutrition Support Team Author Type: Physician Type: Consults Filed: 04/18/2018 10:12 AM Note Text: NUTRITION SUPPORT TEAM TOPIC: NUTRITION SUPPORT TEAM CONSULT FOR TPN PATIENT NAME: Lazaro Villafana DATE OF : 1965 DATE: 04/17/2018 [facility] STAFF PHYSICIAN NOTE OF PERSONAL INVOLVEMENT IN CARE I have reviewed the consult note obtained and documented by the Nutrition Clinician and I personally took a history, performed a physical examination, and participated in the jang components. I have discussed the case and management of the patient's care. The following comments revise or confirm relevant jang components of the note. ASSESSMENT: 1. Feeding difficulties, on TPN 2. Mild Malnutrition 3. Esophagus tear 4. Hypokalemia, hypophosphatemia 5.hyperglycemia PLAN: TPN: Approved Agree with recommendations as outline by clinician below. Labs were reviewed and TPN orders written - comment other therapy: Electrolyte adjustment and glucose treatment Our Service will follow. CC: Asked by SICU team to see this patient for possible use of Parenteral Nutrition HPI: 52 years old male PN started for esophageal tear, intubated , sedated, History was taking from chart, ROS was not done I have reviewed the PMH, Social, FH and ROS as recorded below, and I have no changes or additions. PAST MEDICAL HISTORY Diagnosis Date - Cirrhosis (HCC) - COPD (chronic obstructive pulmonary disease) (HCC) - Diabetes (HCC) - ETOH abuse - Hypertension No family history on file. PHYSICAL EXAMINATION: (Must complete 9 areas) BP 130/74 Pulse 79 Temp 37.7 ?C (99.9 ?F) (Oral) Resp 18 Wt 107.4 kg (236 lb 12.4 oz) SpO2 98% BMI 33.97 kg/m? General appearance: intubated, sedated Skin: Skin color, texture, turgor normal, no suspicious rashes or lesions Head: Normocephalic, no masses, or abnormalities Ears: External ears normal, Nose/Sinuses: Nares normal Oropharynx: Lips, mucosa are normal Abdomen: soft, not distended Extremities: No deformities, edema, skin discoloration, clubbing or cyanosis. Good capillary refill. Peripheral pulses: Normal Venous Access: Line: right, CVC, CVC Site: clean dry Kenyal MD Stephane Pager Number: [phone] April 18, 2018 Consult note is not complete until Authenticated by the responsible T Staff physician. NUTRITION CLINICIAN ASSESSMENT: 1. 52 year old male with a history of type II DM, poorly controlled HTN, CKD, COPD, tobacco smoker 2-3 PPD, alcohol use disorder with recent diagnosis of cirrhosis transferred on 04/14 for management of deep esophageal tear, no amneable to stenting. 2. Nutritional status: In the context of Acute Illness or Injury based on: Insufficient Energy Intake: Less than or equal to 50% for greater than or equal to 5 days Potential micronutrient deficiency revealed in Skin - dry and flaky RECOMMEND DIAGNOSIS: MILD PROTEIN-CALORIE MALNUTRITION 3. Estimated nutrition goals: Dosing weight: 106 kg Calorie needs 5480-8976 kilocalories determined by = 15-20 kcals/kg Dosing weight Protein needs: 106-127 grams determined by 1.0-1.2 g/kg Dosing weight - due to CKD RECOMMENDATIONS: Parenteral nutrition appropriate due to: esophageal tear, plan for NPO x 2 weeks; start tonight. Above plan pending approval by staff. -------- Asked by Dr. Cabral to see patient for parenteral nutrition. History of present illness: Lazaro Villafana is a 52 year old male with a history of type II DM, poorly controlled HTN, CKD, COPD, tobacco smoker 2-3 PPD, alcohol use disorder with recent diagnosis of cirrhosis was transferred from [facility] with an esophageal perforation seen on EGD. Patient initially presented with hematemesis and melena with accompanying dizziness and shortness of breath. Transferred to [facility] on 04/14 for further management. Currently intubated. S/p EGD on 04/16 which showed a deep esophageal tear. Plan for a minimum of NPO x 2 weeks. Past Medical History: PAST MEDICAL HISTORY Diagnosis Date - Cirrhosis (HCC) - COPD (chronic obstructive pulmonary disease) (HCC) - Diabetes (HCC) - ETOH abuse - Hypertension Past Surgical History: No past surgical history on file. Social History: Social History Marital status: Spouse name: Years of education: Number of children: Social History Main Topics Smoking status: Current Every Day Smoker Packs/day: 0.00 Years: 0.00 Alcohol use: Yes Drug use: Yes Family History: No family history on file. Review of Systems: Information cannot be obtained from the patient currently GI Symptoms: unable to determine at this time Pain: Is the patient having any pain that is interfering with oral/enteral intake? Unable to assess Present Diet Order: NPO Nutrition History: Intake History BI DATA ARCHITECT: Unable to determine Current intake: Average 5 day intakes meeting <50% of estimated energy need.s Allergies: ALLERGIES Allergen Reactions - Ciprofloxacin Unknown - Penicillin Unknown All pertinent medications: calcium gluconate, RHI, LR at 10 ml/hour, propofol, octreotide, Anthropometrics: Last 1 Encounter Ht Readings: Date: Ht: 04/14/2018 177.8 cm (5' 10) Current weight: Weight: 107.2 kg (236 lb 5.3 oz) Usual body weight Unable to determine [place] body weight: 75.4 kg Dosing weight: 75.4 kg Body Mass Index: Body mass index is 33.91 kg/m?. No weight history available. PHYSICAL EXAMINATION General Appearance: in no acute distress Subcutaneous Fat Loss: Orbital: No fat loss Triceps: No fat loss Mid-axillary at the iliac crest: Unable to determine at this time Muscle Loss Locations: Temporalis: No muscle loss Pectoralis: No muscle loss Deltoids: No muscle loss Interosseous: No muscle loss Latissimus dorsi, trapezius: Unable to determine at this time Quadriceps: No muscle loss Gastrocnemius: Mild Ascites: No Edema: Yes Generalized GI / Abdomen: 1. Appearance: distended 2.1. Surgical scars:deferred 2.2. Stoma(s): None 2.3. Fistulas: None 2.4. Tubes: NGT 2.5. Drains: None Functional status: Unable to determine at this time Vitals: Temperature Max in 24 hours: Temp (24hrs), Av.5 ?C (99.5 ?F), Min:36.7 ?C (98.1 ?F), Max:38.8 ?C (101.8 ?F) Current Vital Signs: BP 121/63 Pulse 89 Temp 37.1 ?C (98.8 ?F) (Oral) Resp 21 Wt 107.2 kg (236 lb 5.3 oz) SpO2 97% BMI 33.91 kg/m? Date 04/16/18 07 - 04/17/18 0659 04/17/18 0700 - 04/18/18 0659 Shift 5839-4031 6390-2334 9258-7496 24 Hour Total 4168-5678 7961-1207 8056-8616 24 Hour Total I N T A K E IV 1545.5 934.6 2480.1 LR 3390 535 3268 Regular Insulin IV 31.5 16.1 47.6 NORepinephrine Volume 43 56.5 99.5 Octreotide IV 81 108 189 Propofol IV 201 325 526 Irrigants 30 30 60 40 40 Irrigant/Flush Amount In (GI Feed/Drain 04/14/182318 Nasogastric Left Naris 16 Fr) 30 30 60 40 40 Shift Total 30 1575.5 934.6 2540.1 40 40 O U T P U T Urine 410 890 561 3768 480 480 Output ( Indwelling Urinary Catheter 04/14/182113 Admission to [facility]) 410 897 319 5463 480 480 Tubes 200 50 250 Output (GI Feed/Drain 04/14/189 Nasogastric Left Naris 16 Fr) 200 50 250 Chest Tube 800 800 Chest Tube Output (Chest Tube 04/16/18 2100 Right 28 Fr) 800 800 Shift Total 198 827 7540 2325 480 480 Weight (kg) 106.1 106.1 107.2 107.2 107.2 107.2 107.2 107.2 IV access device: right internal jugular double lumen central venous catheter placed 04/14/18. Catheter tip lies in the mid SVC per chest x-ray dated 04/15 . Labs: Recent Labs 04/17/18 0617 WBC 11.97* HB 8.1* HCT 24.8* PLT 66* Recent Labs 04/17/18 0019 GLUC 229* BUN 69* CREAT 2.34* NA 137 K 4.1 CHLOR 106* CO2 21* TPROT 5.6* ALB 2.5* CA 7.2* ALKPHOS 48 TBILI 1.0 AST 30 ALT 19 Recent Labs 04/17/18 0019 MG 2.2 Accuchecks: Glucose, Point of Care (mg/dL) Date Value 04/17/2018 192 (A) 04/17/2018 218 (A) 04/17/2018 237 (A) 04/16/2018 222 (A) Glucose, Point of Care (mg/dL) Date Value Cultures: Blood cultures from 04/14: No growth x 3 days Test Results: Chest XR from 04/17: IMPRESSION: Lines, tubes, and devices: ?The endotracheal tube ends in the thoracic trachea. ?The nasogastric/orogastric tube can be followed as far as the stomach. ?The right internal jugular venous catheter ends in the The right thoracostomy tube is unchanged.. Lungs and pleura: ?There has been improved aeration of the right lung with interval decrease in the right pleural effusion and associated atelectasis. ?Small right pleural effusion with right lower lobe atelectasis remains. ?The left lung is free of focal consolidation. ?No large pneumothorax is seen. Cardiomediastinal silhouette: ?Stable cardiomediastinal silhouette. CT Abdomen/Pelvis from 04/15: IMPRESSION: CIRRHOTIC LIVER MORPHOLOGY WITH PORTAL HYPERTENSION. PARTIALLY IMAGED ESOPHAGEAL TEAR WITH POSSIBLE BLOOD PRODUCTS IN THE STOMACH. ?PLEASE SEE CONCURRENTLY PERFORMED CT CHEST REPORT. Potential Signs of Inflammation: leukocytosis, hyperglycemia, hypoalbuminemia, hyperthermia and critically ill Sandee Hernández, MS, RD, LD, CNSC CONSULT PROG Observed: 04/17/2018 Status: COMPLETED Source: [place] 10:19 AM [facility] REPOSITORY HNO ID: [id number] Author: Leena Li Service: Infectious Disease Author Type: Physician Type: Consult Progress Note Filed: 04/17/2018 10:22 AM Note Text: INFECTIOUS DISEASES PROGRESS NOTE Patient Name: Lazaro Villafana Account #: Data Unavailable Admission Date: 04/14/2018 Date of Evaluation: 04/17/2018 Time of Evaluation: 10:20 AM INTERVAL HPI: fever still intubated, sedated MEDICATIONS: Current hospital medications: albuterol 2.5 mg/0.5 mL 2.5 mg nebulizer solution (PROVENTIL) 2.5 mg INHALATION q 4 H PRN cefepime 2 g in D5W 100 mL MB+ (MAXIPIME) 2 g INTRAVENOUS q 12 H Chlorhexidine Gluconate 0.12 % 15 mL (PERIDEX) 15 mL ORAL QID dextrose 50 % 12.5-25 g injection 25-50 mL INTRAVENOUS PRN fentaNYL 50 mcg/mL 25-50 mcg injection (SUBLIMAZE) 25-50 mcg INTRAVENOUS q 1 H PRN fluconazole 200 mg in NaCl (iso-osmotic) 100 mL (DIFLUCAN) 200 mg INTRAVENOUS DAILY insulin regular 250 units in NaCl 0.9% 250 mL iv infusion - ICU NOMOGRAM 0.5-30 Units/hr INTRAVENOUS CONTINUOUS insulin regular human iv bolus 2-10 Units 2-10 Units INTRAVENOUS PRN ipratropium-albuterol 3 mL nebulizer solution (DUONEB) 3 mL INHALATION q 4 H PRN lactated ringers infusion 5-30 mL/hr INTRAVENOUS CONTINUOUS magnesium sulfate in water 2 g in sterile water 50 ml 2 g INTRAVENOUS PRN metroNIDAZOLE 500 mg PREMIX piggyback (FLAGYL) 500 mg INTRAVENOUS q 8 H mupirocin 2% 0.5 g nasal ointment (BACTROBAN) 0.5 g NASAL BID NaCl 0.9% 3-5 mL 3-5 mL INTRAVENOUS q 12 H NORepinephrine 16 mg in D5W 250 mL (LEVOPHED) 0.6-50 mcg/min INTRAVENOUS CONTINUOUS octreotide 500 mcg in D5W 100 mL (SandoSTATIN) 50 mcg/hr INTRAVENOUS CONTINUOUS pantoprazole 40 mg injection (PROTONIX) 40 mg INTRAVENOUS BID AC (0600/1600) potassium chloride 20-80 mEq CUP 20-80 mEq ORAL/FEEDING TUBE PRN potassium chloride iv piggyback 20 mEq/100 mL 20 mEq INTRAVENOUS PRN propofol infusion (DIPRIVAN) 5-60 mcg/kg/min INTRAVENOUS CONTINUOUS sodium glycerophosphate 15 mmol in D5W 250 mL (GLYCOPHOS) 15 mmol INTRAVENOUS PRN sodium glycerophosphate 30 mmol in D5W 250 mL (GLYCOPHOS) 30 mmol INTRAVENOUS PRN sodium glycerophosphate 45 mmol in D5W 250 mL (GLYCOPHOS) 45 mmol INTRAVENOUS PRN PHYSICAL EXAM: BP 121/63 Pulse 89 Temp 37.1 ?C (98.8 ?F) (Oral) Resp 21 Wt 107.2 kg (236 lb 5.3 oz) SpO2 97% BMI 33.91 kg/m? GEN: well appearing Skin: No rash HEENT: anicteric Lungs: Clear Cardiac: RRR: s1-s2 no mrg Abdomen: NT, ND and no masses Extremities: no edema DIAGNOSTICS REVIEWED CBC: Recent Labs 04/17/18 0617 04/17/18 0019 04/16/18 1653 04/16/18 0841 04/16/18 0031 04/15/18 1637 04/15/18 0345 04/14/18 2120 WBC 11.97* 13.12* 10.22 10.27 4.84 9.57 15.85* 22.38* HB 8.1* 8.4* 8.2* 8.4* 7.8* 6.4* 8.1* 8.9* HCT 24.8* 25.2* 24.2* 24.6* 22.6* 18.7* 23.4* 26.0* PLT 66* 61* 50* 59* 35* 48* 90* 117* MCV 89.5 90.6 88.6 86.0 86.6 84.2 85.4 85.8 RDWCV 16.2* 15.9* 15.7* 15.6* 15.2* 16.1* 15.9* 15.8* CRP: No results found for: CRP COAG: Recent Labs 04/17/18 0019 04/16/18 0031 04/15/18 0500 04/15/18 0345 04/14/18 2120 04/14/18 1700 04/14/18 1415 APTT 32.1 31.6 -- Unable to assay. Specimen improperly collected/handled. -- -- -- INR 1.3 1.4* 1.3 Unable to assay. Specimen improperly collected/handled. 1.3 1.35* 1.31* BMP: Recent Labs 04/17/18 0019 04/16/18 0031 04/15/18 0345 04/14/18211904/14/18 1700 04/14/18 1415 GLUC 229* 238* 359* 445* 545* 494* NA 137 139 136 140 136 135* K 4.1 4.0 4.8 5.0 6.6* 5.3* CHLOR 106* 103 98 100 102 102 CO2 21* 23 23 24 22 22 ANION 10 13 15 16 19* 16 BUN 69* 67* 74* 76* 73* 73* CREAT 2.34* 1.97* 2.47* 2.71* 2.66* 2.21* CHEM: Recent Labs 04/17/18 0019 04/16/18 00304/15/185 04/14/18211904/14/18 17004/14/18 1415 ALB 2.5* 2.7* 2.6* 2.4* 2.2* 2.7* TPROT 5.6* 5.2* 5.2* 4.9* 5.1* 6.2* CA 7.2* 7.2* 7.9* 7.1* 7.0* 8.0* MG 2.2 1.3* 1.7 1.3* -- -- HEPATIC: Recent Labs 04/17/18 0019 04/16/18 0031 04/15/185 04/14/18211904/14/18 1700 04/14/18 1415 ALKPHOS 48 41 47 50 64 76 ALT 19 22 23 23 27 29 AST 30 39 44* 36 28 29 TBILI 1.0 1.5* 0.4 0.7 0.7 0.7 URINALYSIS: Recent Labs 04/17/18 0921 04/17/18 0440 04/17/18 0033 04/16/18 1917 04/16/18 0914 04/16/18 0613 04/16/18 0106 04/15/18 1636 04/15/18 0609 04/14/18 1455 PH -- 7.37 7.36 7.36 7.36 7.42 7.38 7.44 7.39 < > -- SPGR 1.017 -- -- -- -- -- -- -- -- -- 1.021 UGLUC Negative -- -- -- -- -- -- -- -- -- >=1000* UBILI Negative -- -- -- -- -- -- -- -- -- NEGATIVE UKET Negative -- -- -- -- -- -- -- -- -- NEGATIVE UHB 2+* -- -- -- -- -- -- -- -- -- -- UPROT Negative -- -- -- -- -- -- -- -- -- NEGATIVE UROBIL -- -- -- -- -- -- -- -- -- -- 0.2 UWBC 0-5 -- -- -- -- -- -- -- -- -- 0.4 < > = values in this interval not displayed. micro and radiology personally reviewed IMPRESSION / PLAN 52 yo M with a h/o cirrhosis, EtoH related, CKD, COPD and reported + PPD in the past. Currently no clinical or imaging evidence of active pulmonary TB; more consistent with latent TB. Presenting with hemorrhagic shock secondary to hematemesis/esophageal tear c/b pneumomediastinum. ? EGD 04/15 with inability to stent lesion. ? Plan: continue current abx Marguerite Li MD Staff, Department of Infectious Disease Pager: [phone] April 17, 2018 10:22 AM PROGRESS Observed: 04/17/2018 Status: COMPLETED Source: [place] 9:44 AM [facility] REPOSITORY O ID: [id number] Author: Roberto Cooley Service: Anesthesiology Author Type: Physician Type: Progress Notes Filed: 04/17/2018 2:14 PM Note Text: SURGICAL INTENSIVE CARE UNIT PROGRESS NOTE SERVICE DATE: April 17, 2018 SERVICE TIME: 9:45 AM Subjective PROCEDURE: 04/14 Hematemesis s/p EGD at OSH c/b esophageal laceration vs perforation vs esophageal variceal bleeding admitted from OSH for surgical evaluation and hemodynamic monitoring. MAJOR ISSUES: Esophageal perforation Mediastinitis Septic shock Leukocytosis Tachycardia Hypotension LIANE Hypoalbuminemia Acute blood loss anemia GI Bleeding Thrombocytopenia Overnight Fever 38.8 @2000 last night. WBC increasing. Objective VITAL SIGNS Temp: 37.1 ?C (98.8 ?F) Pulse: 89 Arterial BP 1: 106/59 MAP Invasive (Mean Arterial Pressure) 1: 72 Resp: 21 SpO2: 97 % Not applicable Current Facility-Administered Medications: albuterol 2.5 mg/0.5 mL 2.5 mg nebulizer solution (PROVENTIL) 2.5 mg INHALATION q 4 H PRN cefepime 2 g in D5W 100 mL MB+ (MAXIPIME) 2 g INTRAVENOUS q 12 H Chlorhexidine Gluconate 0.12 % 15 mL (PERIDEX) 15 mL ORAL QID dextrose 50 % 12.5-25 g injection 25-50 mL INTRAVENOUS PRN fentaNYL 50 mcg/mL 25-50 mcg injection (SUBLIMAZE) 25-50 mcg INTRAVENOUS q 1 H PRN fluconazole 200 mg in NaCl (iso-osmotic) 100 mL (DIFLUCAN) 200 mg INTRAVENOUS DAILY insulin regular 250 units in NaCl 0.9% 250 mL iv infusion - ICU NOMOGRAM 0.5-30 Units/hr INTRAVENOUS CONTINUOUS insulin regular human iv bolus 2-10 Units 2-10 Units INTRAVENOUS PRN ipratropium-albuterol 3 mL nebulizer solution (DUONEB) 3 mL INHALATION q 4 H PRN lactated ringers infusion 5-30 mL/hr INTRAVENOUS CONTINUOUS magnesium sulfate in water 2 g in sterile water 50 ml 2 g INTRAVENOUS PRN metroNIDAZOLE 500 mg PREMIX piggyback (FLAGYL) 500 mg INTRAVENOUS q 8 H mupirocin 2% 0.5 g nasal ointment (BACTROBAN) 0.5 g NASAL BID NaCl 0.9% 3-5 mL 3-5 mL INTRAVENOUS q 12 H NORepinephrine 16 mg in D5W 250 mL (LEVOPHED) 0.6-50 mcg/min INTRAVENOUS CONTINUOUS octreotide 500 mcg in D5W 100 mL (SandoSTATIN) 50 mcg/hr INTRAVENOUS CONTINUOUS pantoprazole 40 mg injection (PROTONIX) 40 mg INTRAVENOUS BID AC (0600/1600) potassium chloride iv piggyback 20 mEq/100 mL 20 mEq INTRAVENOUS PRN Or potassium chloride 20-80 mEq CUP 20-80 mEq ORAL/FEEDING TUBE PRN propofol infusion (DIPRIVAN) 5-60 mcg/kg/min INTRAVENOUS CONTINUOUS sodium glycerophosphate 15 mmol in D5W 250 mL (GLYCOPHOS) 15 mmol INTRAVENOUS PRN Or sodium glycerophosphate 30 mmol in D5W 250 mL (GLYCOPHOS) 30 mmol INTRAVENOUS PRN Or sodium glycerophosphate 45 mmol in D5W 250 mL (GLYCOPHOS) 45 mmol INTRAVENOUS PRN Intake/Output Summary (Last 24 hours) at 04/17/18 0945 Last data filed at 04/17/18 0800 Gross per 24 hour Intake 2550.1 ml Output 2395 ml Net 155.1 ml PHYSICAL EXAM Neuro: Sedated Cardiovascular: Regular rhythm Respiratory Coarse breath sounds bilaterally Breath Sounds Equal: Yes Mechanical Ventilation: Vent Mode: PC CMV Freq (bpm): 12 PS (cmH20): 10 PEEP / CPAP (cmH20): 8 FIO2 (%): 50 Recent Labs 04/17/18 0440 04/17/18 0033 PH 7.37 7.36 PO2 152* 172* PCO2 40 39 BE NEG 2 NEG 4 HCO3 22 21* LACT 1.4 1.8 Abdomen: Soft and Distended Extremities: mild edema Skin:intact INFUSION(S): Propofol and Ocreotide Diagnostic tests reviewed for today's visit: Most recent labs and imaging results. Assessment/Plan Mr.?Howard Villafana is a 52-year-old male with PMHx type II DM, poorly controlled HTN, CKD, COPD, tobacco smoker 2-3 PPD, alcohol use disorder with recent diagnosis of cirrhosis was transferred from OSH with an esophageal perforation seen on EGD. Patient initially presented with hematemesis and melena with accompanying dizziness and shortness of breath. Now being admitted to the SICU for surgical evaluation and hemodynamic monitoring. ? Neuro:?hx of heavy EtOH use, last drink on 04/13 -- tachypnea requiring intubation at OSH --Sedation with dexmedetomidine for history of heavy EtOH use. On propofol gtt. -- per , he previously drank 3 cider ales daily up until 1 month ago, around when he learned about his cirrhosis diagnosis. She notes that he had 2 drinks on 04/13. --thiamine and folic acid -- PRN fentanyl ? CV:? -- s/p levophed. Stopped 0750. -- Goal MAP >65 - AM CXR - improved aeration of the right lung with interval decrease in the right pleural effusion and associated atelectasis. ?Small right pleural effusion with right lower lobe atelectasis remains. ? Pulm:? Hx of COPD. Intubated. Vent Mode: PC CMV Freq (bpm): 12 PS (cmH20): 10 PEEP / CPAP (cmH20): 8 FIO2 (%): 50 --Continue home bronchodilators --BPH, duonebs prn ? Renal:? (baseline Cr ~1.2 from 02/2018) -- LIANE; most likely pre-renal. Cr 1.97 --> 2.34 -- UOP 1275 --Monitor Cr and I/Os --[place] ? GI:?Likely partial thickness esophageal perforation. Presented from OSH on 04/14 with hematemesis, melena dizziness and SOB. EtOH cirrhosis with portal HTN, grade 2 esophageal varices -- EGD at OSH showed no mediastinal air -- 04/15 CT chest/abd/pel - mid distal esophageal tear 5.4cm from T6-T8. Small amount of enteric contrast extravasation and pneumomediastinum. - 04/15 EGD by GI - deep esophageal tear, not amenable to esophageal stenting --Pantoprazole for GI ppx and ocreotide gtt for at least 7 days (started 04/14) per GI --NPO, start TPN --NGT repositioned by GI - DO NOT MANIPULATE BLINDLY -- thoracic does not recommend open surgical intervention. Perforation appears to be contained. Likely iatrogenic tear from prior tube placement. -- may develop mediastinal abscess within the next few days ? Heme:? -- Hgb 8.0 -- platelets 59 > 77. Will watch for signs of bleeding for further transfusion --Transfuse to keep Hgb >7 ? Fluid/Electrolyte/Nutrition: --NPO --Replete lytes per SICU protocol -- ordered TPN ? Endo:?Hx of IDDM, HgbA1c 8.2. - glucose 140-222; BG goal 130-180 --Continue insulin gtt ? ID:?Esohageal tear and perforation. Febrile 38.8 @ 2000 on 04/16. WBC 10 > 13 Ordered BCx, UA Concern for mediastinitisis. ? Cultures/labs: - 04/14 blood culture - NGTD - 04/14 TB blood screen - in process - 04/14 procalcitonin 2.67 ? - aztreonam and flagyl at OSH - empiric coverage with cefepime, fluconazole, flagyl - end date in 1 month - ID following, appreciate recs PLAN - ordered TPN - will monitor UOP and Hemodynamics. S/p 250 cc LR x 2 - will f/u Bcx and UA Lines, Drains, and Airways Line Arterial Line 04/14/182319 Arterial Line Left Radial 2 days Central Line Triple Lumen 04/14/182318 Non-tunneled Right Neck 2 days Peripheral 04/14/18 2344 Left Antecubital 18 Gauge 2 days Drain GI Feed/Drain 04/14/182318 Nasogastric Left Naris 16 Fr 2 days Indwelling Urinary Catheter 04/14/182113 Admission to Hospital [place] 2 days Chest Tube 04/16/182099 Right 28 Fr less than 1 day Airway Airway Endotracheal Tube 04/14/182114 2 days Medication and Non-Pharmacologic VTE Prophylaxis/Anticoagulants 04/14/182099 pneumatic compression stockings ([place]) 04/14/182099 activity - mobilize patient ([place]) VTE Prophylaxis: Contraindicated acute bleed SIGNATURE: Joanne Cabral MD, PGY-2 resident PATIENT NAME: Lazaro Villafana DATE: April 17, 2018 TIME: 9:45 AM PAGER/CONTACT #: [email or web address] SICU STAFF PHYSICIAN NOTE OF PERSONAL INVOLVEMENT IN CARE I have reviewed the progress note obtained and documented by the resident and I personally participated in the jang components as documented above regarding the following problems or issues and made appropriate changes below. Upon my evaluation, this patient had a high probability of imminent or life-threatening deterioration, which required my direct attention, intervention, personal management and decision making. These issues or problems included: Close monitoring of the following has been required: respiratory status, renal function and acute GI bleeding ASSESSMENTANDPLAN: Esophageal perforation Mediastinitis Septic shock Leukocytosis Tachycardia Hyperchloremia Hypotension LIANE Hypoalbuminemia Acute blood loss anemia GI Bleeding Thrombocytopenia Pt remains intubated and has slightly increased O2 requirements. CT chest and Chest tube placed last night. CT Chest shows continued perforation without significant change continued pneumomediastinum. Continue ABX and Anti-fungals. Chest tube drained right pleural effusion, most likely reactive in origin. Off Levo now since 8am. Renal function started to get better and worsened overnight, continue supportive care for ATN. DISPOSITION: SICU I devoted my full attention to the direct care of this patient for the amount of time indicated below, time includes review of laboratory data, radiology results, discussion with consultants, and monitoring for potential decompensation. Time I spent with family or surrogate(s) is included only if the patient was incapable of providing the necessary information or participating in medical decision making. Time devoted to teaching and to any procedures I billed separately is not included. Time spent providing critical care services: 45 minutes. SIGNATURE: Hilda Cooley M.D. DATE: April 17, 2018 2:07 PM URINALYSIS WITH Collected: 04/17/2018 Status: F Source: [facility] 9:21 AM [facility] REPOSITORY TYPE CODE TESTS RESULT OUT OF RANGE REFERENCE UNITS LAB UCOL Yellow Color Yellow LAB [facility] Clear Clarity Clear LAB UGLUC Negative mg/dL Glucose, Urine Negative LAB UBIL Negative Bilirubin, Urine Negative LAB UKET Negative Ketones, Urine Negative LAB USPG 1.005-1.030 Specific [place], Ur 1.017 LAB UHGB Negative Abnormal Hemoglobin/Blood, 2+ Alert Ur LAB UPH 4.5-8.0 pH 5.0 LAB UPROT Negative mg/dL Protein, Urine Negative LAB UUROB Normal Urobilinogen Normal LAB UNITR Negative Nitrites Negative LAB ULKEST Negative Leukest Abnormal 1+ Alert LAB UCOM Comments SEE COMMENT Result Comment: N/A LAB UMCOM Urine SEE Ronaldo Comment COMMENT Result Comment: N/A LAB UWBC 0-5 /HPF WBC 0-5 LAB URBC 0-3 /HPF Abnormal Alert RBC >25 Performed By: #### UAWMIC #### [facility] [address], [place] [address] NURSING PROG Observed: 04/17/2018 Status: COMPLETED Source: [place] 9:08 AM [facility] REPOSITORY HNO ID: [id number] Author: Yanni (Rn) BLAYNE aVzquez Service: (none) Author Type: Registered Nurse Type: Nursing Progress Note Filed: 04/17/2018 9:09 AM Note Text: Nursing Progress: Topic: RESTRAINT NON-VIOLENT PATIENT NAME: Lazaro Villafana PATIENT LOCATION: [place] [address] The patient demonstrates Attempting to Remove Medical Devices Vital to Medical Stability as evidenced by the following behaviors reaching for ETT and NG which pose an imminent danger to self or others. The following interventions were attempted but were not effective in protecting the patient's safety: Alarms, Bed in Low/Locked Position, Call Light Within Reach, Diversion Activities, Gauze Wrap/Sleeve IV Site, IV/Feeding Bag/Pump Out of Vision, Medications Reviewed, Modify Environment, Modify Equipment, Frequent Observation, Pad Tubes/Drains, Pain/Discomfort Relief, Re-Orientation Methods Next, a comprehensive assessment was performed and warranted placing the patient in Soft Bilateral Wrists, the least restrictive restraint needed to protect the patient's safety. Ongoing safety assessments and evaluation for earliest removal of restraints will be performed. DATE: April 17, 2018 TIME: 9:09 AM Yanni Vazquez RN PROGRESS Observed: 04/17/2018 Status: COMPLETED Source: [place] 8:08 AM [facility] REPOSITORY [facility] ID: [id number] Author: Tammy Rocha Service: General Surgery Author Type: Physician Type: Progress Notes Filed: 04/17/2018 10:01 PM Note Text: GENERAL SURGERY PROGRESS NOTE ASSESSMENT AND PLAN 52 year old male with PMHx type II DM, poorly controlled HTN, CKD, COPD, tobacco smoker 2-3 PPD, alcohol use disorder with recent diagnosis of cirrhosis who presents on transfer from OSH with hematemesis s/p EGD at OSH c/b esophageal laceration vs Boerhaave's vs injury related to [place] tube on pressors intubated/sedated; MELD > 20 - will discuss transfer of care with thoracic surgery -supportive care - trend labs - may need repeat imaging to r/o mediastinal abscess - SICU *After 6pm and on weekends please page general surgery director of early childhood education [phone]* SUBJECTIVE/INTERVAL EVENTS chest tube placed yesterday w/ 800cc output, CXR improved, still on pressors OBJECTIVE BP 122/64 Pulse 84 Temp 37.4 ?C (99.3 ?F) (Oral) Resp 24 Wt 107.2 kg (236 lb 5.3 oz) SpO2 97% BMI 33.91 kg/m? Intake/Output Summary (Last 24 hours) at 04/17/18 0659 Last data filed at 04/17/18 0600 Gross per 24 hour Intake 2540.1 ml Output 2325 ml Net 215.1 ml General: sedated, ill appearing CV: on pressors Pulm: vent Neck: no subQ crepitus appreciated Abdomen: soft Neuro: limited exam 2/2 sedation Labs/Imaging: CBC, BMP, MG, PHOS Recent Labs 04/17/18 0019 04/16/18 1653 04/16/18 0841 04/16/18 0031 04/15/18 0345 04/14/182119 WBC 13.12* 10.22 10.27 4.84 < > 15.85* 22.38* HB 8.4* 8.2* 8.4* 7.8* < > 8.1* 8.9* HCT 25.2* 24.2* 24.6* 22.6* < > 23.4* 26.0* PLT 61* 50* 59* 35* < > 90* 117* NA 137 -- -- 139 -- 136 140 K 4.1 -- -- 4.0 -- 4.8 5.0 CHLOR 106* -- -- 103 -- 98 100 CO2 21* -- -- 23 -- 23 24 BUN 69* -- -- 67* -- 74* 76* CREAT 2.34* -- -- 1.97* -- 2.47* 2.71* GLUC 229* -- -- 238* -- 359* 445* CA 7.2* -- -- 7.2* -- 7.9* 7.1* MG 2.2 -- -- 1.3* -- 1.7 1.3* P 4.3 -- -- 2.6* -- 2.9 4.7 < > = values in this interval not displayed. Liver Function, Amylase, AND Lipase Recent Labs 04/17/18 0440 04/17/18 0033 04/17/18 0019 04/16/18 1917 04/16/18 0914 04/16/18 0031 04/15/18 0345 04/14/182119 TPROT -- -- 5.6* -- -- -- 5.2* -- 5.2* -- 4.9* ALB -- -- 2.5* -- -- -- 2.7* -- 2.6* -- 2.4* ALT -- -- 19 -- -- -- 22 -- 23 -- 23 AST -- -- 30 -- -- -- 39 -- 44* -- 36 ALKPHOS -- -- 48 -- -- -- 41 -- 47 -- 50 TBILI -- -- 1.0 -- -- -- 1.5* -- 0.4 -- 0.7 LACT 1.4 1.8 -- 1.5 2.0 < > -- < > -- < > -- < > = values in this interval not displayed. Coags Recent Labs 04/17/18 0019 04/16/18 0031 04/15/18 0500 04/15/18 0345 APTT 32.1 31.6 -- Unable to assay. Specimen improperly collected/handled. INR 1.3 1.4* 1.3 Unable to assay. Specimen improperly collected/handled. Active Hospital Problems Diagnosis Date Noted - Esophageal perforation 04/14/2018 Ted Proctor MD [id number] [facility] STAFF PHYSICIAN NOTE OF PERSONAL INVOLVEMENT IN CARE I have reviewed the progress note obtained and documented by the resident and I personally participated in the jang components. I have discussed the case and management of the patient's care. The following comments revise or confirm relevant jang components of the note. Patient has no acute abdominal issues. The esophageal tear appears to be contained, although patient remains at risk for mediastinitis and empyema.. I spoke with the Thoracic surgery staff, Dr. Taveras this morning. He has no plans to take the patient on his service because he thinks the patient would be too high a risk for surgery and in any case, the patient is improving with conservative therapy. Fortunately, the variceal bleeding appears to have stabilized. IMPRESSION: Liver cirrhosis, esophageal varices s/p EGD and attempted banding. Now with esophageal tear that appears to be contained. Chest tube inserted by thoracic surgery yesterday is in good position. Renal dysfunction appears to be improving. PLAN: We have no general surgical issues at present. Perhaps patient could be transferred to the MICU? Thoracic surgery will follow. Tammy Rocha MD April 17, 2018 9:53 PM Beeper CBC Collected: 04/17/2018 Status: F Source: [place] 6:[address] [facility] REPOSITORY TYPE CODE TESTS RESULT OUT OF REFERENCE UNITS RANGE LAB WBC 3.70-11.00 k/uL WBC High 11.97 LAB RBC 4.20-6.00 m/uL Low RBC 2.77 LAB HGB 13.0-17.0 g/dL Low Hemoglobin 8.1 LAB HCT 39.0-51.0 % Low Hematocrit 24.8 LAB MCV 80.0-100.0 fL MCV 89.5 LAB MCH 26.0-34.0 pG MCH 29.2 LAB MCHC 30.5-36.0 g/dL MCHC 32.7 LAB RDWCV 11.5-15.0 % RDW-CV High 16.2 LAB PLTCT 150-400 k/uL Low Platelet Count 66 Result Comment: No clot detected. LAB MPV 9.0-12.7 fL MPV 12.1 LAB ABSNUC <0.01 k/uL High Absolute nRBC 0.02 Performed By: #### CBC #### [facility] [address] [place], [place] [address] GASA + ALL Collected: 04/17/2018 Status: F Source: [place] 4:40 AM [facility] RADIANCE USE ONLY REPOSITORY TYPE CODE TESTS RESULT OUT OF REFERENCE UNITS RANGE LAB PH 7.35-7.45 pH 7.37 LAB PCO2 34-46 mm Hg pCO2 40 LAB PO2 85-95 mm Hg pO2 152 High LAB BE mmol/L Base Excess NEG 2 LAB HCO3 22-26 mmol/L Bicarbonate 22 LAB CO2CT 22.0-28.0 mmol/L CO2 Content 24 LAB O2HB 95-98 % 98 Oxyhemoglobin, Art. LAB COHB 0-5.0 % 1.3 Carboxyhemoglobin ,Art LAB MHGB 0.4-1.5 % 0.6 Methemoglobin LAB TEMP C 37.0 Temperature, Body LAB PHTC 7.35-7.45 pH, Temp 7.37 Corrected LAB PCO2T 34-46 mm Hg pCO2, Temp 40 Correct LAB PO2T mm Hg pO2, Temp 152 Corrected LAB NAB 135-146 mmol/L 138 Sodium,Whole Bld LAB KWB 3.5-5.0 mmol/L Potassium, 3.9 Whole Bld LAB HGBB 13.0-17.0 g/dL 8.0 Low Hemoglobin,Total, ACL LAB HCTB 39.0-51.0 % Hematocrit, 25 Low ACL LAB IC 1.08-1.30 mmol/L Calcium, 1.06 Low Ion, WB LAB GLB 60-105 mg/dL 243 High Glucose,Whole Bld LAB LACT 0.5-2.2 mmol/L Lactate 1.4 LAB ABGCOM Blood Gas O2 Comm, Art Administration Result Comment: 80% Performed By: #### ALLBG #### [facility] [address] [place], [place] [address] XR CHEST 1V FRONTAL Observed: 04/17/2018 Status: F Source: [facility] 4:[address] [facility] REPOSITORY * * *Final Report* * * DATE OF EXAM: Apr 17 2018 4:31AM [facility] [id number] - XR CHEST 1V FRONTAL PORT / PROCEDURE REASON: Acute respiratory illness * * * * Physician Interpretation * * * * EXAMINATION: CHEST RADIOGRAPH (PORTABLE SINGLE VIEW AP) Exam Date/Time: 04/17/2018 4:31 AM Clinical History: Acute respiratory illness, MQ: [id number] Comparison: 1 day prior RESULT: See impression. IMPRESSION: Lines, tubes, and devices: The endotracheal tube ends in the thoracic trachea. The nasogastric/orogastric tube can be followed as far as the stomach. The right internal jugular venous catheter ends in the The right thoracostomy tube is unchanged.. Lungs and pleura: There has been improved aeration of the right lung with interval decrease in the right pleural effusion and associated atelectasis. Small right pleural effusion with right lower lobe atelectasis remains. The left lung is free of focal consolidation. No large pneumothorax is seen. Cardiomediastinal silhouette: Stable cardiomediastinal silhouette. Steel Turner: NIDHI Transcribe Date/Time: Apr 17 2018 10:34A Dictated by : ELOISE GONSALVES MD This examination was interpreted and the report reviewed and electronically signed by: ELOISE GONSALVES MD on Apr 17 2018 10:36AM EST [id number] + ALL Collected: 04/17/2018 Status: F Source: [facility] 12:33 AM [facility] RADIANCE USE ONLY REPOSITORY TYPE CODE TESTS RESULT OUT OF REFERENCE UNITS RANGE LAB PH 7.35-7.45 pH 7.36 LAB PCO2 34-46 mm Hg pCO2 39 LAB PO2 85-95 mm Hg pO2 172 High LAB BE mmol/L Base Excess NEG 4 LAB HCO3 22-26 mmol/L Bicarbonate 21 Low LAB CO2CT 22.0-28.0 mmol/L CO2 Content 22 LAB O2HB 95-98 % 98 Oxyhemoglobin, Art. LAB COHB 0-5.0 % 1.1 Carboxyhemoglobin ,Art LAB MHGB 0.4-1.5 % 0.9 Methemoglobin LAB TEMP C 37.0 Temperature, Body LAB PHTC 7.35-7.45 pH, Temp 7.36 Corrected LAB PCO2T 34-46 mm Hg pCO2, Temp 39 Correct LAB PO2T mm Hg pO2, Temp 172 Corrected LAB NAB 135-146 mmol/L 137 Sodium,Whole Bld LAB KWB 3.5-5.0 mmol/L Potassium, 4.0 Whole Bld LAB HGBB 13.0-17.0 g/dL 8.4 Low Hemoglobin,Total, ACL LAB HCTB 39.0-51.0 % Hematocrit, 26 Low ACL LAB IC 1.08-1.30 mmol/L Calcium, 1.05 Low Ion, WB LAB GLB 60-105 mg/dL 228 High Glucose,Whole Bld LAB LACT 0.5-2.2 mmol/L Lactate 1.8 LAB ABGCOM Blood Gas O2 Comm, Art Administration Result Comment: 100 Performed By: #### ALLBG #### [facility] [address] [place], [place] [address] PROTIME Collected: 04/17/2018 Status: F Source: [place] 12:19 AM [facility] REPOSITORY TYPE CODE TESTS RESULT OUT OF RANGE REFERENCE UNITS LAB PSEC 9.7-13.0 sec High PT Sec 13.6 LAB INR 0.9-1.3 PT INR 1.3 Result Comment: Vitamin K Antagonist (VKA) Therapeutic Range: INR 2 to 3 (Target INR of 2.5) Note: For patients treated with VKA drugs, such as warfarin, the [place] [employer] 2012 Guideline recommends a therapeutic INR range of 2 to 3 (target INR of 2.5). This recommendation includes high-risk patients with antiphospholipid syndrome with previous arterial or venous thromboembolism, current-generation mechanical or bioprosthetic aortic heart valve replacement. Note: Patients with mechanical aortic valve replacement and additional risk factors for thromboembolic events (atrial fibrillation, previous thromboembolism, LV dysfunction, hypercoagulable conditions) or an older generation mechanical AVR (i.e., ball in-Cage) or any mechanical MVR should have a INR therapeutic range of 2.5 to 3.5 (target INR of 3). Serjio GH, et al. Chest 2012, 141:7S-47S Rashida RA, et al. [facility] 2017, 70: 252-289 Performed By: #### PT, PTT, CBC, CMP, MG1, PHOS #### [facility] [address], [place] [address] APTT Collected: 04/17/2018 Status: F Source: [place] 12:19 AM [facility] REPOSITORY TYPE CODE TESTS RESULT OUT OF RANGE REFERENCE UNITS LAB APTT 23.0-32.4 sec APTT 32.1 Result Comment: Unfractionated Heparin Therapeutic Ranges: Standard Heparin Nomogram: 53 to 78 seconds (anti-Xa level of 0.3 to 0.7 U/ml) Low Dose/ACS Nomogram: 49 to 67 seconds (anti-Xa level of 0.2 to 0.5 U/ml) Stroke Treatment Nomogram: 49 to 67 seconds (anti-Xa level of 0.2 to 0.5 U/ml) Note: The APTT therapeutic range has been determined for the current lot of laboratory APTT reagent in use throughout the [facility]. Performed By: #### PT, PTT, CBC, CMP, MG1, PHOS #### [facility] [address], [place] [address] CBC Collected: 04/17/2018 Status: F Source: [place] 12:19 [facility] REPOSITORY TYPE CODE TESTS RESULT OUT OF REFERENCE UNITS RANGE LAB WBC 3.70-11.00 k/uL WBC High 13.12 LAB RBC 4.20-6.00 m/uL Low RBC 2.78 LAB HGB 13.0-17.0 g/dL Low Hemoglobin 8.4 LAB HCT 39.0-51.0 % Low Hematocrit 25.2 LAB MCV 80.0-100.0 fL MCV 90.6 LAB MCH 26.0-34.0 pG MCH 30.2 LAB MCHC 30.5-36.0 g/dL MCHC 33.3 LAB RDWCV 11.5-15.0 % RDW-CV High 15.9 LAB PLTCT 150-400 k/uL Low Platelet Count 61 Result Comment: Result checked and verified No clot detected. LAB MPV 9.0-12.7 fL MPV 11.6 LAB ABSNUC <0.01 k/uL High Absolute nRBC 0.03 Performed By: #### PT, PTT, CBC, CMP, MG1, PHOS #### [facility] [address] [place], [place] [address] COMP METABOLIC PANEL Collected: 04/17/2018 Status: F Source: [place] 12:[address] [facility] REPOSITORY TYPE CODE TESTS RESULT OUT OF REFERENCE UNITS RANGE LAB TP 6.3-8.0 g/dL Low Protein, Total 5.6 LAB ALB 3.9-4.9 g/dL Low Albumin 2.5 LAB CA 8.5-10.2 mg/dL Low Calcium, Total 7.2 LAB TBIL 0.2-1.3 mg/dL Bilirubin, Total 1.0 LAB ALKP 38-113 U/L Alkaline Phosphatase 48 LAB AST 14-40 U/L AST 30 LAB GLU 74-99 mg/dL Glucose High 229 Result Comment: The [place] [employer] (ADA) provides guidance for cutoff values for fasting glucose and random glucose. The ADA defines fasting as no caloric intake for at least 8 hours. Fas ting plasma glucose results between 100 to 125 mg/dL indicate increased risk for diabetes (prediabetes). Fasting plasma glucose results greater than or equal to 126 mg/dL meet the criteria for diagnosis of diabetes. In the absence of unequivocal hyperglycemia, results should be confirmed by repeat testing. In a patient with classic symptoms of hyperglycemia or hyperglycemic crisis, random plasma glucose results greater than or equal to 200 mg/dL meet the criteria for diagnosis of diabetes. Reference: Standards of Medical Care in Diabetes 2016, [place] [employer]. Diabetes Care. 2016.39(Suppl 1). LAB BUN 9-24 mg/dL BUN High 69 LAB CRET 0.73-1.22 mg/dL Creatinine High 2.34 LAB NA 136-144 mmol/L Sodium 137 LAB K 3.7-5.1 mmol/L Potassium 4.1 LAB CL 97-105 mmol/L Chloride High 106 LAB CO2 22-30 mmol/L Low CO2 21 LAB AGAP 9-18 mmol/L Anion Gap 10 LAB ALT 10-54 U/L ALT 19 LAB GFRAA eGFR- Amer. 36 LAB GFRNAA . eGFR-All Other Races 30 Result Comment: eGFR (Estimated GFR) Units of measure: mL/min/1.73 meters squared eGFR is derived from the reexpressed MDRD Study equation using the following parameters: serum creatinine, age, gender and race. The creatinine assay has been calibrated to be traceable to IDMS. An eGFR <60 mL/min/1.73m2 for >3 months is consistent with chronic kidney disease. Refer to KDOQI guidelines for clinical interpretation. In patients with unstable renal function, e.g. those with acute kidney injury, the eGFR may not accurately reflect actual GFR. Performed By: #### PT, PTT, CBC, CMP, MG1, PHOS #### [facility] [employer] [place] [address] MAGNESIUM Collected: 04/17/2018 Status: F Source: [place] 12:19 AM [facility] REPOSITORY TYPE CODE TESTS RESULT OUT OF REFERENCE UNITS RANGE LAB MG 1.7-2.3 mg/dL Magnesium 2.2 Result Comment: Result rechecked. Performed By: #### PT, PTT, CBC, CMP, MG1, PHOS #### [facility] [address] [place] [address] PHOSPHORUS Collected: 04/17/2018 Status: F Source: [place] 12:19 AM [facility] REPOSITORY TYPE CODE TESTS RESULT OUT OF REFERENCE UNITS RANGE LAB PHOS 2.7-4.8 mg/dL Phosphorus 4.3 Performed By: #### PT, PTT, CBC, CMP, MG1, PHOS #### [facility] [address] [place] [address] STAPH AUREUS PCR Collected: 04/17/2018 Status: F Source: [place] 12:18 AM [facility] REPOSITORY TYPE CODE TESTS RESULT OUT OF RANGE REFERENCE UNITS LAB [facility] Nasal S aureus Spec Source LAB [facility] Negative for MRSA MRSA by PCR. PCR LAB [facility] Positive for Abnormal Staph Staphylococcus Alert aureus PCR aureus by PCR. Performed By: #### SAPCR #### [facility] [address] [place] [address] PROGRESS Observed: 04/16/2018 Status: COMPLETED Source: [place] 11:18 PM [facility] REPOSITORY HNO ID: [id number] Author: Donna Kumar Ct Service: (none) Author Type: (none) Type: Progress Notes Filed: 04/16/2018 11:19 PM Note Text: Radiology Service Progress Note PATIENT NAME: Lazaro Villafana DATE OF SERVICE: April 16, 2018 TIME: 11:18 PM PATIENT IDENTITY VERIFICATION COMPLETED USING TWO (2) METHODS: ID Band . PATIENT GENDER DATA: Male PATIENT RELEVANT IMPLANT DATA REVIEWED: Yes RADIOLOGY DEPARTMENT: CT; Exam(s) Completed: Chest PERIPHERAL IV DATA: Not applicable SIGNED BY: Donna Kumar Ct April 16, 2018 11:[address] CHEST WO IVCON Observed: 04/16/2018 Status: F Source: [place] 11:18 PM [facility] REPOSITORY * * *Final Report* * * DATE OF EXAM: Apr 16 2018 11:18PM [facility] [place]41 - CT CHEST WO IVCON / PROCEDURE REASON: Pleural effusion * * * * Physician Interpretation * * * * EXAMINATION: CHEST CT WITHOUT CONTRAST CLINICAL HISTORY: Enlarging pleural effusion with increase in right lung opacification demonstrated on recent chest radiograph, patient ventilated and on vasoconstrictor medications for blood pressure. Technique: Spiral CT acquisition of the chest from the thoracic inlet to the upper abdomen without contrast. MQ: [id number] CT Dose-Length Product: 514 mGy*cm CT Dose Reduction Employed: Automated exposure control (AEC) Comparison: CT chest 04/15/2018, chest radiograph 04/16/2018 RESULT: Limitations: None. Lines, tubes, and devices: Interval placement of right apical chest tube. Endotracheal tube in place, terminating just above the bethany. NG/OG tube traverses below the diaphragm into the stomach with tip beyond the field of view. Right internal jugular venous catheter ends in the lower superior vena cava. Lung parenchyma and pleura: Small bilateral effusions, right greater than left, have mildly increased compared to prior study CT 04/07/2018. Small foci of air are present in the right pleural effusion which is new compared to prior exam (for example 2:98). There are new multifocal consolidative and ground glass opacities predominantly involving the left upper lobe and lingula in a bronchovascular distribution, but also scattered in the left lower lobe. Interval increase in consolidative opacities in the lower right lung, predominantly in the right lower lobe. These are likely atelectatic given the associated volume loss. Superimposed infiltrate/infection cannot be entirely excluded. Similar changes in the left demonstrate mixed interval changes with overall improvement. Linear bandlike thickening of the minor fissure (best seen on coronal view) likely represents atelectasis and fluid within the fissure. Central airways are patent. Thoracic inlet, heart, and mediastinum: Visualized thyroid is unremarkable. There are multiple prominent mediastinal lymph nodes which measure up to 1.0 cm in short axis and are slightly more prominent on this exam. For example, 1.0 cm right paratracheal lymph node (2:36, previously 0.9 cm), 1.0 cm right paratracheal lymph node (2:59, previously 0.9 cm), 0.9 cm right paratracheal lymph node (2:60, previously 0.7 cm). No lymphadenopathy in the axillary or supraclavicular regions. The thoracic aorta and main pulmonary artery are normal in caliber. There is a common origin of the brachiocephalic and left common carotid arteries, a normal variant. The cardiac chambers are normal in size. Mild coronary artery atherosclerotic calcifications are noted, although the study is not optimized for coronary assessment. No pericardial effusion or thickening. Small locules of air are present in the region adjacent to the mid esophagus along the right medial and posterior mediastinum (2:89), which was also present on prior exam. These foci of gas are in the previously seen area of contrast extravasation from the mid esophagus, possibly related to the previously reported esophageal tear. There is no contrast within the esophagus on the current examination, with limited evaluation of the esophagus. There are additional small foci of air within the anterior mediastinum superiorly-image 45. Bones and soft tissues: No destructive bone lesion. Subcutaneous emphysema along the right lateral chest wall in region of chest tube placement. Upper abdomen: Cirrhotic liver morphology with small volume perihepatic and perisplenic ascites. Gallbladder sludge present. Scattered mesenteric edema. IMPRESSION: 1. NEW MULTIFOCAL CONSOLIDATIVE/GROUNDGLASS OPACITIES PREDOMINANTLY LEFT UPPER LOBE AND LINGULA, MAY REPRESENT MULTIFOCAL PNEUMONIA/ASPIRATION PNEUMONITIS, HEMORRHAGE OR ASYMMETRIC EDEMA. RADIOGRAPHIC FOLLOW-UP IS RECOMMENDED.. 2. BILATERAL LOWER LOBE AIRSPACE OPACITIES WITH VOLUME LOSS, RIGHT GREATER THAN LEFT, MOST LIKELY ATELECTASIS WITH POSSIBLE SUPERIMPOSED INFECTIOUS PROCESS. 3. LIMITED EVALUATION OF PREVIOUSLY SEEN MID ESOPHAGEAL CONTRAST EXTRAVASATION/TEAR. SMALL FOCI OF RIGHT-SIDED PNEUMOMEDIASTINUM, NOT SIGNIFICANTLY CHANGED. SMALL FOCI OF PNEUMOMEDIASTINUM HAVE DEVELOPED SUPERIORLY. THESE COULD BE FROM RECENT INTERVENTION. 4. SMALL BILATERAL PLEURAL COLLECTIONS HAVE SLIGHTLY INCREASED COMPARED TO PRIOR EXAM. THE AIR COMPONENTS OF THE RIGHT PLEURAL COLLECTION ARE NEW SINCE PREVIOUS EXAM, LIKELY RELATED TO INTERVAL PLACEMENT OF RIGHT APICAL CHEST TUBE. Steel Turner: NIDHI Transcribe Date/Time: Apr 16 2018 11:44P Dictated by : FIDENCIO VENCES DO This examination was interpreted and the report reviewed and electronically signed by: MELISSA RAHMAN MD on Apr 17 2018 10:00AM EST [id number] CONSULT PROG Observed: 04/16/2018 Status: COMPLETED Source: [place] 11:00 PM [facility] REPOSITORY HNO ID: [id number] Author: Keegan Newell MD (Fel) Service: Thoracic Surgery Author Type: Fellow Type: Consult Progress Note Filed: 04/17/2018 9:50 AM Note Text: Patient is known to the thoracic service. I was called by the SICU team to assess rising vent requirement, fever and new right sided opacity on CXR. His pressor requirement had been off transiently but had to be restarted at a lower dose, he had a temp of 38.6, and he required 100% FiO2. His WBC was normal and he had a normal base deficit on his ABG. After discussion with the SICU team and Dr. Soto, it was felt that placing a right chest tube would be the best next step. A right sided 28Fr chest tube was placed by me with no difficulty and 400 cc of serosanguinous fluid was immediately drained. No evidence of GI contents in the right chest. Follow up X-ray did not show a complete resolution of the right sided opacity. A repeat CT scan of his chest was deemed to be neccessary at that point to determine the nature of the right sided opacity and re-evaluate the esophagus. Chest CT scan showed a complete collapse of the right lower lobe, patchy consolidation in the left lung and no major change around the esophagus. Chest tube lies next to the esophagus. Based on the information gathered at that point it was deemed that this was likely an ARDS picture and a surgical intervention would not necessarily lead to a clinical improvement. He continued to improve throughout the night, FiO2 had significantly decreased to 40% and currently off pressors. Anamika Newell MD Thoracic surgery fellow XR CHEST 1V FRONTAL Observed: 04/16/2018 Status: F Source: [facility] 9:[address] [facility] REPOSITORY * * *Final Report* * * DATE OF EXAM: Apr 16 2018 9:24PM [facility] 5376 - XR CHEST 1V FRONTAL PORT / PROCEDURE REASON: Evaluate tube, line or lead position * * * * Physician Interpretation * * * * EXAMINATION: CHEST RADIOGRAPH (PORTABLE SINGLE VIEW AP) Exam Date/Time: 04/16/2018 9:24 PM Clinical History: Evaluate tube, line or lead position, MQ: XCPMC_5 Comparison: 04/16/2018 at 6:41 PM RESULT: See impression. IMPRESSION: Lines, tubes, and devices: The endotracheal tube ends in the thoracic trachea. The nasogastric/orogastric tube can be followed as far as the stomach. The right internal jugular venous catheter ends in the superior vena cava. A right thoracostomy tube has been placed directed apically. Lungs and pleura: There is been interval increase in opacification of the right hemithorax since the prior exam likely as a result of a combination of right effusion with associated atelectasis. Superimposed aspiration/pneumonia cannot be excluded. Bilateral interstitial and airspace opacities likely represent pulmonary edema or pneumonia. No large pneumothorax is seen. Cardiomediastinal silhouette: Stable cardiomediastinal silhouette. Steel Turner: NIDHI Transcribe Date/Time: Apr 16 2018 9:39P Dictated by : ELOISE GONSALVES MD This examination was interpreted and the report reviewed and electronically signed by: ELOISE GONSALVES MD on Apr 16 2018 9:42PM EST [id number] NURSING PROG Observed: 04/16/2018 Status: COMPLETED Source: [place] 7:57 PM [facility] REPOSITORY HNO ID: [id number] Author: German (Rn) BLAYNE Cavazos Service: (none) Author Type: Registered Nurse Type: Nursing Progress Note Filed: 04/16/2018 7:57 PM Note Text: Nursing Progress: Topic: RESTRAINT NON-VIOLENT PATIENT NAME: Lazaro Villafana PATIENT LOCATION: [place] [id number] The patient demonstrates Attempting to Remove Medical Devices Vital to Medical Stability, Lack of Understanding/Ability to Comply with Safety Directions as evidenced by the following behaviors attempting to pull at lines and tubes which pose an imminent danger to self or others. The following interventions were attempted but were not effective in protecting the patient's safety: Alarms, Bed in Low/Locked Position, Call Light Within Reach, Diversion Activities, Gauze Wrap/Sleeve IV Site, IV/Feeding Bag/Pump Out of Vision, Medications Reviewed, Modify Environment, Modify Equipment, Frequent Observation, Pad Tubes/Drains, Pain/Discomfort Relief, Re-Orientation Methods Next, a comprehensive assessment was performed and warranted placing the patient in Soft Bilateral Wrists, the least restrictive restraint needed to protect the patient's safety. Ongoing safety assessments and evaluation for earliest removal of restraints will be performed. DATE: April 16, 2018 TIME: 7:56 PM German Cavazos RN GASA + ALL Collected: 04/16/2018 Status: F Source: [place] FOR 7:17 PM [facility] RADIANCE USE ONLY REPOSITORY TYPE CODE TESTS RESULT OUT OF REFERENCE UNITS RANGE LAB PH 7.35-7.45 pH 7.36 LAB PCO2 34-46 mm Hg pCO2 40 LAB PO2 85-95 mm Hg pO2 123 High LAB BE mmol/L Base Excess NEG 3 LAB HCO3 22-26 mmol/L Bicarbonate 22 LAB CO2CT 22.0-28.0 mmol/L CO2 Content 23 LAB O2HB 95-98 % 97 Oxyhemoglobin, Art. LAB COHB 0-5.0 % 1.1 Carboxyhemoglobin ,Art LAB MHGB 0.4-1.5 % 1.0 Methemoglobin LAB TEMP C 37.0 Temperature, Body LAB PHTC 7.35-7.45 pH, Temp 7.36 Corrected LAB PCO2T 34-46 mm Hg pCO2, Temp 40 Correct LAB PO2T mm Hg pO2, Temp 123 Corrected LAB NAB 135-146 mmol/L 140 Sodium,Whole Bld LAB KWB 3.5-5.0 mmol/L Potassium, 4.1 Whole Bld LAB HGBB 13.0-17.0 g/dL 8.1 Low Hemoglobin,Total, ACL LAB HCTB 39.0-51.0 % Hematocrit, 25 Low ACL LAB IC 1.08-1.30 mmol/L Calcium, 1.07 Low Ion, WB LAB GLB 60-105 mg/dL 157 High Glucose,Whole Bld LAB LACT 0.5-2.2 mmol/L Lactate 1.5 LAB ABGCOM Blood Gas O2 Comm, Art Administration Result Comment: 100% Performed By: #### ALLBG #### [facility] [address] [place], [place] [address] XR CHEST 1V FRONTAL Observed: 04/16/2018 Status: F Source: [facility] 6:[address] [facility] REPOSITORY * * *Final Report* * * DATE OF EXAM: Apr 16 2018 6:53PM [facility] - XR CHEST 1V FRONTAL PORT / PROCEDURE REASON: Shortness of breath * * * * Physician Interpretation * * * * EXAMINATION: CHEST RADIOGRAPH (PORTABLE SINGLE VIEW AP) Exam Date/Time: 04/16/2018 6:53 PM Clinical History: Shortness of breath, MQ: XCPMC_5 Comparison: 1 day prior RESULT: See impression. IMPRESSION: Lines, tubes, and devices: The endotracheal tube ends in the thoracic trachea. The nasogastric/orogastric tube can be followed as far as the stomach. The right internal jugular venous catheter ends in the superior vena cava. Lungs and pleura: Bilateral interstitial and airspace opacities likely represent pulmonary edema or pneumonia. Moderate layering right pleural effusion with associated atelectasis is unchanged. Superimposed aspiration/pneumonia cannot be excluded. There is no pneumothorax. Cardiomediastinal silhouette: Stable cardiomediastinal silhouette. Steel Turner: PSCB Transcribe Date/Time: Apr 16 2018 8:21P Dictated by : ELOISE GONSALVES MD This examination was interpreted and the report reviewed and electronically signed by: ELOISE GONSALVES MD on Apr 16 2018 8:22PM EST [id number] CBC Collected: 04/16/2018 Status: F Source: [place] 4:53 PM [facility] REPOSITORY TYPE CODE TESTS RESULT OUT OF REFERENCE UNITS RANGE LAB WBC 3.70-11.00 k/uL WBC 10.22 LAB RBC 4.20-6.00 m/uL Low RBC 2.73 LAB HGB 13.0-17.0 g/dL Low Hemoglobin 8.2 LAB HCT 39.0-51.0 % Low Hematocrit 24.2 LAB MCV 80.0-100.0 fL MCV 88.6 LAB MCH 26.0-34.0 pG MCH 30.0 LAB MCHC 30.5-36.0 g/dL MCHC 33.9 LAB RDWCV 11.5-15.0 % RDW-CV High 15.7 LAB PLTCT 150-400 k/uL Low Platelet Count 50 Result Comment: Result checked and verified No clot detected. LAB MPV 9.0-12.7 fL MPV 11.9 LAB ABSNUC <0.01 k/uL High Absolute nRBC 0.03 Performed By: #### CBC #### [facility] [address] [place] [id number] THERAPY NT Observed: 04/16/2018 Status: COMPLETED Source: [place] 3:45 PM [facility] REPOSITORY HNO ID: [id number] Author: Cheryl Modi (Pt) Richard Service: Physical Therapy Author Type: Physical Therapist Type: Therapy (PT/OT/Speech/Resp) Filed: 04/16/2018 3:45 PM Note Text: PHYSICAL THERAPY MISSED VISIT SERVICE DATE: 04/16/2018 SERVICE TIME: 1545 to 1545 ROOM: [place] [address] Attempted Evaluation. Patient not seen due to Illness (intubated and sedated). Will hold physical therapy until pt appropriate for skilled interventions. SIGNATURE: Cheryl Ramos, PT PATIENT NAME: Lazaro Villafana DATE: April 16, 2018 TIME: 3:45 PM XR CHEST 1V FRONTAL Observed: 04/16/2018 Status: F Source: [facility] 10:00 AM [facility] REPOSITORY * * *Final Report* * * DATE OF EXAM: Apr 16 2018 10:00AM [facility] - XR CHEST 1V FRONTAL PORT / PROCEDURE REASON: Acute respiratory illness * * * * Physician Interpretation * * * * EXAMINATION: CHEST RADIOGRAPH (PORTABLE SINGLE VIEW AP) Exam Date/Time: 04/16/2018 10:00 AM Clinical History: Acute respiratory illness, MQ: XCPMC_5 Comparison: Same day RESULT: See impression. IMPRESSION: Lines, tubes, and devices: Stable Lungs and pleura: Perihilar and basilar atelectatic changes have worsened. Superimposed infiltrates/infection or edema cannot be entirely excluded. Increasing/shifting underlying layering right pleural effusion is not excluded. Cardiomediastinal silhouette: Stable cardiomediastinal silhouette. Other: . Steel Turner: JACOBYB Transcribe Date/Time: Apr 16 2018 10:46A Dictated by : MELISSA RAHMAN MD This examination was interpreted and the report reviewed and electronically signed by: MELISSA RAHMAN MD on Apr 16 2018 10:47AM EST [id number] + ALL Collected: 04/16/2018 Status: F Source: [facility] 9:14 AM [facility] RADIANCE USE ONLY REPOSITORY TYPE CODE TESTS RESULT OUT OF REFERENCE UNITS RANGE LAB PH 7.35-7.45 pH 7.36 LAB PCO2 34-46 mm Hg pCO2 41 LAB PO2 85-95 mm Hg pO2 88 LAB BE mmol/L Base Excess NEG 2 LAB HCO3 22-26 mmol/L Bicarbonate 22 LAB CO2CT 22.0-28.0 mmol/L CO2 Content 24 LAB O2HB 95-98 % Oxyhemoglobin, Art. 95 LAB COHB 0-5.0 % Carboxyhemoglobin,A 1.5 rt LAB MHGB 0.4-1.5 % Methemoglobin Low 0.2 LAB TEMP C Temperature, Body 37.0 LAB PHTC 7.35-7.45 pH, Temp Corrected 7.36 LAB PCO2T 34-46 mm Hg pCO2, Temp Correct 41 LAB PO2T mm Hg pO2, Temp Corrected 88 LAB NAB 135-146 mmol/L Sodium,Whole Bld 139 LAB KWB 3.5-5.0 mmol/L Potassium, Whole Bld 4.1 LAB HGBB 13.0-17.0 g/dL Low Hemoglobin,Total,AC 8.7 L LAB HCTB 39.0-51.0 % Hematocrit, ACL Low 27 LAB IC 1.08-1.30 mmol/L Calcium, Ion, WB 1.10 LAB GLB 60-105 mg/dL Glucose,Whole Bld High 201 LAB LACT 0.5-2.2 mmol/L Lactate 2.0 Performed By: #### ALLBG #### [facility] [address] [place], [place] [address] CBC Collected: 04/16/2018 Status: F Source: [place] 8:41 AM [facility] REPOSITORY TYPE CODE TESTS RESULT OUT OF REFERENCE UNITS RANGE LAB WBC 3.70-11.00 k/uL WBC 10.27 LAB RBC 4.20-6.00 m/uL Low RBC 2.86 LAB HGB 13.0-17.0 g/dL Low Hemoglobin 8.4 LAB HCT 39.0-51.0 % Low Hematocrit 24.6 LAB MCV 80.0-100.0 fL MCV 86.0 LAB MCH 26.0-34.0 pG MCH 29.4 LAB MCHC 30.5-36.0 g/dL MCHC 34.1 LAB RDWCV 11.5-15.0 % RDW-CV High 15.6 LAB PLTCT 150-400 k/uL Low Platelet Count 59 Result Comment: Result checked and verified No clot detected. LAB MPV 9.0-12.7 fL MPV 11.7 LAB ABSNUC <0.01 k/uL Absolute nRBC <0.01 Performed By: #### CBC #### [facility] [address] [place] [id number] CONSULT PROG Observed: 04/16/2018 Status: COMPLETED Source: [place] 8:02 AM [facility] REPOSITORY HNO ID: [id number] Author: Leena Li Service: Infectious Disease Author Type: Physician Type: Consult Progress Note Filed: 04/16/2018 10:23 AM Note Text: PROGRESS NOTE INFECTIOUS DISEASE SERVICE DATE: 04/16/2018 SERVICE TIME: 8:03 AM Subjective Interval Events: Febrile yesterday evening to 38.8 C Received 2 Units PRBCs and 1 Unit FFP yesterday with improvement in lactate to 1.3 and decreasing pressor requirements (3mcg of norepi this am compared to 30 on transfer) No leukocytosis Cultures with no growth to date. Medications: Current hospital medications: albuterol 2.5 mg/0.5 mL 2.5 mg nebulizer solution (PROVENTIL) 2.5 mg INHALATION q 4 H PRN cefepime 2 g in D5W 100 mL MB+ (MAXIPIME) 2 g INTRAVENOUS q 12 H Chlorhexidine Gluconate 0.12 % 15 mL (PERIDEX) 15 mL ORAL QID dexmedetomidine 400 mcg in NaCl 0.9% 100 mL (PRECEDEX) 0.2- 0.7 mcg/kg/hr INTRAVENOUS CONTINUOUS dextrose 50 % 12.5-25 g injection 25-50 mL INTRAVENOUS PRN fentaNYL 50 mcg/mL 25-50 mcg injection (SUBLIMAZE) 25-50 mcg INTRAVENOUS q 1 H PRN fluconazole 200 mg in NaCl (iso-osmotic) 100 mL (DIFLUCAN) 200 mg INTRAVENOUS DAILY insulin regular 250 units in NaCl 0.9% 250 mL iv infusion - ICU NOMOGRAM 0.5-30 Units/hr INTRAVENOUS CONTINUOUS insulin regular human iv bolus 2-10 Units 2-10 Units INTRAVENOUS PRN ipratropium-albuterol 3 mL nebulizer solution (DUONEB) 3 mL INHALATION q 4 H PRN magnesium sulfate in water 2 g in sterile water 50 ml 2 g INTRAVENOUS PRN metroNIDAZOLE 500 mg PREMIX piggyback (FLAGYL) 500 mg INTRAVENOUS q 8 H mupirocin 2% 0.5 g nasal ointment (BACTROBAN) 0.5 g NASAL BID NaCl 0.9% 3-5 mL 3-5 mL INTRAVENOUS q 12 H NaCl 0.9% iv infusion 100 mL/hr INTRAVENOUS CONTINUOUS NORepinephrine 16 mg in D5W 250 mL (LEVOPHED) 0.6-50 mcg/min INTRAVENOUS CONTINUOUS octreotide 500 mcg in D5W 100 mL (SandoSTATIN) 50 mcg/hr INTRAVENOUS CONTINUOUS pantoprazole 40 mg injection (PROTONIX) 40 mg INTRAVENOUS BID AC (0600/1600) potassium chloride 20-80 mEq CUP 20-80 mEq ORAL/FEEDING TUBE PRN potassium chloride iv piggyback 20 mEq/100 mL 20 mEq INTRAVENOUS PRN sodium glycerophosphate 15 mmol in D5W 250 mL (GLYCOPHOS) 15 mmol INTRAVENOUS PRN sodium glycerophosphate 30 mmol in D5W 250 mL (GLYCOPHOS) 30 mmol INTRAVENOUS PRN sodium glycerophosphate 45 mmol in D5W 250 mL (GLYCOPHOS) 45 mmol INTRAVENOUS PRN thiamine 200 mg in NaCl 0.9% 50 mL 200 mg INTRAVENOUS q 8 H Current Antibiotics: 04/14 Aztreonam x 1 Metronidazole (04/14 - ) Fluconazole 500 (04/15 - ) Cefepime (04/15 - ) Vancomycin x 1 (04/15) Current immunosuppressive medications: None Objective Physical Exam: Temp (24hrs), Av.6 ?C (99.7 ?F), Min:36.9 ?C (98.4 ?F), Max:38.5 ?C (101.3 ?F) Temp (120hrs), Av.6 ?C (99.7 ?F), Min:36.9 ?C (98.4 ?F), Max:38.5 ?C (101.3 ?F) Lines: Mcclain 04/14, Nontunnelled triple lumen 04/14 in R neck, ET tube 04/14, NG in L nare 04/14, L radial A-line 04/14 GENERAL APPEARANCE: Patient is critically ill appearing. Sedated. SKIN: No lesions noted. EYES: PERRLA NOSE: Left Nare Ng tube in place. NECK: R nontunnelled triple lumen catheter with no overlying erythema, swelling or warmth. LUNGS: clear to auscultation, no wheezes, or crackles. HEART: Regular rate/rhythm, normal heart sounds, and no murmurs. ABDOMEN: Soft, epigastric tenderness, BS present. EXTREMITIES: Edema of hands b/l, no LE edema. NEURO: Sedated, not following commands. Lab data: WBC Date Value 04/16/2018 4.84 k/uL 04/15/2018 9.57 k/uL 04/15/2018 15.85 k/uL 04/14/2018 22.38 k/uL 04/14/2018 20.86 thou/cmm Platelet Count Date Value 04/16/2018 35 k/uL 04/15/2018 48 k/uL 04/15/2018 90 k/uL 04/14/2018 117 k/uL 04/14/2018 102 thou/cmm Creatinine (mg/dL) Date Value 04/16/2018 1.97 04/15/2018 2.47 04/14/2018 2.71 04/14/2018 2.66 04/14/2018 2.21 AST (U/L) Date Value 04/16/2018 39 ALT (U/L) Date Value 04/16/2018 22 Microbiology data: 04/14 Nasal MRSA negative, positive for staphylococcus aureus 04/14 Blood culture x 1 negative to date 04/14 Blood TB screen in process DATA: Diagnostic Tests Reviewed for Today's Visit: Most recent labs and imaging results. Impression/Recommendations 52 yo M with a h/o cirrhosis, EtoH related, CKD, COPD and reported + PPD in the past. Currently no clinical or imaging evidence of active pulmonary TB; more consistent with latent TB. Presenting with hemorrhagic shock secondary to hematemesis/esophageal tear c/b pneumomediastinum. EGD 04/15 with inability to stent lesion. Plan: - No evidence of active TB, no need for respiratory isolation - Currently critically ill and latent TB status can be addressed in the outpatient setting vs if transplantation planned. - Continue broad spectrums per primary team: fluconazole, metronidazole and cefepime. Medication and Non-Pharmacologic VTE Prophylaxis/Anticoagulants SIGNATURE: Jeniffer Gil MD PATIENT NAME: Lazaro Villafana DATE: April 16, 2018 TIME: 8:02 AM PAGER/CONTACT #: [phone] [facility] STAFF PHYSICIAN NOTE OF PERSONAL INVOLVEMENT IN CARE Events reviewed. Patient examined. Findings as outlined in the resident's note above. Jang elements verified. ? Relevant lab data, microbiology and imaging data reviewed. Relevant images personally reviewed. ? Agree with assessment and plan as outlined in the resident's note above. I was physically present for the critical portions of the service provided by the ID team. The management plan reflects my input. ? Marguerite Li MD Staff, Department of Infectious Disease Pager: [phone] Marguerite Li [phone] PROGRESS Observed: 04/16/2018 Status: COMPLETED Source: [place] 8:01 AM [facility] REPOSITORY [facility] ID: [id number] Author: Roberto Cooley Service: Anesthesiology Author Type: Physician Type: Progress Notes Filed: 04/17/2018 8:14 AM Note Text: SURGICAL INTENSIVE CARE UNIT PROGRESS NOTE SERVICE DATE: April 16, 2018 SERVICE TIME: 9:04 AM Subjective PROCEDURE: 04/14 Hematemesis s/p EGD at OSH c/b esophageal laceration vs perforation vs esophageal variceal bleeding admitted from OSH for surgical evaluation and hemodynamic monitoring. MAJOR ISSUES: Esophageal perforation Mediastinitis Septic shock Leukocytosis Tachycardia Hypotension LIANE Hypoalbuminemia Acute blood loss anemia GI Bleeding Thrombocytopenia Objective VITAL SIGNS Temp: 36.9 ?C (98.4 ?F) Pulse: 78 Arterial BP 1: 124/66 MAP Invasive (Mean Arterial Pressure) 1: 83 Resp: 28 SpO2: 91 % Not applicable Current Facility-Administered Medications: albuterol 2.5 mg/0.5 mL 2.5 mg nebulizer solution (PROVENTIL) 2.5 mg INHALATION q 4 H PRN cefepime 2 g in D5W 100 mL MB+ (MAXIPIME) 2 g INTRAVENOUS q 12 H Chlorhexidine Gluconate 0.12 % 15 mL (PERIDEX) 15 mL ORAL QID dextrose 50 % 12.5-25 g injection 25-50 mL INTRAVENOUS PRN fentaNYL 50 mcg/mL 25-50 mcg injection (SUBLIMAZE) 25-50 mcg INTRAVENOUS q 1 H PRN fluconazole 200 mg in NaCl (iso-osmotic) 100 mL (DIFLUCAN) 200 mg INTRAVENOUS DAILY insulin regular 250 units in NaCl 0.9% 250 mL iv infusion - ICU NOMOGRAM 0.5-30 Units/hr INTRAVENOUS CONTINUOUS insulin regular human iv bolus 2-10 Units 2-10 Units INTRAVENOUS PRN ipratropium-albuterol 3 mL nebulizer solution (DUONEB) 3 mL INHALATION q 4 H PRN lactated ringers infusion 5-30 mL/hr INTRAVENOUS CONTINUOUS magnesium sulfate in water 2 g in sterile water 50 ml 2 g INTRAVENOUS PRN metroNIDAZOLE 500 mg PREMIX piggyback (FLAGYL) 500 mg INTRAVENOUS q 8 H mupirocin 2% 0.5 g nasal ointment (BACTROBAN) 0.5 g NASAL BID NaCl 0.9% 3-5 mL 3-5 mL INTRAVENOUS q 12 H NORepinephrine 16 mg in D5W 250 mL (LEVOPHED) 0.6-50 mcg/min INTRAVENOUS CONTINUOUS octreotide 500 mcg in D5W 100 mL (SandoSTATIN) 50 mcg/hr INTRAVENOUS CONTINUOUS pantoprazole 40 mg injection (PROTONIX) 40 mg INTRAVENOUS BID AC (0600/1600) potassium chloride iv piggyback 20 mEq/100 mL 20 mEq INTRAVENOUS PRN Or potassium chloride 20-80 mEq CUP 20-80 mEq ORAL/FEEDING TUBE PRN propofol infusion (DIPRIVAN) 5-60 mcg/kg/min INTRAVENOUS CONTINUOUS sodium glycerophosphate 15 mmol in D5W 250 mL (GLYCOPHOS) 15 mmol INTRAVENOUS PRN Or sodium glycerophosphate 30 mmol in D5W 250 mL (GLYCOPHOS) 30 mmol INTRAVENOUS PRN Or sodium glycerophosphate 45 mmol in D5W 250 mL (GLYCOPHOS) 45 mmol INTRAVENOUS PRN thiamine 200 mg in NaCl 0.9% 50 mL 200 mg INTRAVENOUS q 8 H Intake/Output Summary (Last 24 hours) at 04/16/18 1115 Last data filed at 04/16/18 0600 Gross per 24 hour Intake 4972.3 ml Output 1605 ml Net 3367.3 ml PHYSICAL EXAM Neuro: Sedated Cardiovascular: Regular rhythm Respiratory Clear to auscultation. Breath Sounds Equal: Yes Mechanical Ventilation: Vent Mode: PC CMV Freq (bpm): 12 PS (cmH20): 10 PEEP / CPAP (cmH20): 8 FIO2 (%): 60 Recent Labs 04/16/18 0914 04/16/18 0613 PH 7.36 7.42 PO2 88 135* PCO2 41 37 BE NEG 2 NEG 1 HCO3 22 23 LACT 2.0 1.4 Abdomen: Soft and Distended Extremities: mild edema Skin:intact INFUSION(S): Norepinephrine, Propofol and Ocreotide Diagnostic tests reviewed for today's visit: Most recent labs and imaging results. Assessment/Plan Mr.?Howard Villafana is a 52-year-old male with PMHx type II DM, poorly controlled HTN, CKD, COPD, tobacco smoker 2-3 PPD, alcohol use disorder with recent diagnosis of cirrhosis was transferred from OSH with an esophageal perforation seen on EGD. Patient initially presented with hematemesis and melena with accompanying dizziness and shortness of breath. Now being admitted to the SICU for surgical evaluation and hemodynamic monitoring. ? Neuro:?hx of heavy EtOH use, last drink on 04/13 -- tachypnea requiring intubation at OSH --Sedation with dexmedetomidine for history of heavy EtOH use. Switched to propofol this AM for improved management of agitation -- per , he previously drank 3 cider ales daily up until 1 month ago, around when he learned about his cirrhosis diagnosis. She notes that he had 2 drinks on 04/13. --thiamine and folic acid -- PRN fentanyl ? CV:? -- levophed and vasopressin weaned overnight. Levophed restarted this AM -- Goal MAP >65 - AM CXR - worsening bilateral atelectasis, R pleural effusion ? Pulm:? Hx of COPD. Intubated. Vent Mode: PC CMV Freq (bpm): 12 PS (cmH20): 10 PEEP / CPAP (cmH20): 8 FIO2 (%): 60 --Continue home bronchodilators --BPH, duonebs prn ? Renal:??LIANE with improving Cr 1.97 (baseline ~1.2 from 02/2018) -- UOP 1970 --Monitor Cr and I/Os --[place] ? GI:?Likely partial thickness esophageal perforation. Presented from OSH on 04/14 with hematemesis, melena dizziness and SOB. EtOH cirrhosis with portal HTN, grade 2 esophageal varices -- EGD at OSH showed no mediastinal air -- 04/15 CT chest/abd/pel - mid distal esophageal tear 5.4cm from T6-T8. Small amount of enteric contrast extravasation and pneumomediastinum. - 04/15 EGD by GI - deep esophageal tear, not amenable to esophageal stenting --Pantoprazole for GI ppx and ocreotide gtt for at least 7 days (started 04/14) per GI --NPO, start TPN --NGT repositioned by GI - DO NOT MANIPULATE BLINDLY -- thoracic does not recommend open surgical intervention. Perforation appears to be contained. Likely iatrogenic tear from prior tube placement. -- may develop mediastinal abscess within the next few days, possible repeat imaging to rule outper gen surg ? Heme:?Transfused 2u pRBC and 1u platelets yesterday evening -- Hgb 7.8 -- platelets 59. Will watch for signs of bleeding for further transfusion --Transfuse to keep Hgb >7 ? Fluid/Electrolyte/Nutrition: --NPO --Replete lytes per SICU protocol ? Endo:?Hx of IDDM, HgbA1c 8.2. - glucose 611 at OSH, 445 on admission --Continue insulin gtt ? ID:?Esohageal tear and perforation. WBC 4.84, lactate 8.4 on admission, now 1.4. Afebrile ? Cultures/labs: - 04/14 blood culture - NGTD - 04/14 TB blood screen - in process - 04/14 procalcitonin 2.67 ? - aztreonam and flagyl at OSH - empiric coverage with cefepime, fluconazole, flagyl - end date in 1 month - ID following, appreciate recs Lines, Drains, and Airways Line Arterial Line 04/14/18 2320 Arterial Line Left Radial 1 day Central Line Triple Lumen 04/14/18 2319 Non-tunneled Right Neck 1 day Peripheral 04/14/18 2344 Left Antecubital 18 Gauge 1 day Drain GI Feed/Drain 04/14/18 231 Nasogastric Left Naris 16 Fr 1 day Indwelling Urinary Catheter 04/14/182113 Admission to Hospital [place] 1 day Airway Airway Endotracheal Tube 04/14/182114 1 day Medication and Non-Pharmacologic VTE Prophylaxis/Anticoagulants 04/14/182099 pneumatic compression stockings (nc,ut) 04/14/182099 activity - mobilize patient (nc,ut) VTE Prophylaxis: Contraindicated acute bleed SIGNATURE: Jen Gorman MD, PGY-3 resident PATIENT NAME: Lazaro Villafana DATE: April 16, 2018 TIME: 8:36 AM PAGER/CONTACT #: [phone] SICU STAFF PHYSICIAN NOTE OF PERSONAL INVOLVEMENT IN CARE I have reviewed the progress note obtained and documented by the resident and I personally participated in the jang components as documented above regarding the following problems or issues and made appropriate changes below. Upon my evaluation, this patient had a high probability of imminent or life-threatening deterioration, which required my direct attention, intervention, personal management and decision making. These issues or problems included: Close monitoring of the following has been required: respiratory status and infection ASSESSMENTANDPLAN: Esophageal perforation Mediastinitis Septic shock Leukocytosis Tachycardia Hypotension LIANE Hypoalbuminemia Acute blood loss anemia GI Bleeding Thrombocytopenia Pt is doing slightly better. Gi was unable to stent acrossed the lesion. We will need good surviellence for worsening mediastinitisis. If he suddenly decompendates or is not progressing than would recommend repeatng CT chest. Continue broad spectrum abx and anti-fungal DISPOSITION: SICU I devoted my full attention to the direct care of this patient for the amount of time indicated below, time includes review of laboratory data, radiology results, discussion with consultants, and monitoring for potential decompensation. Time I spent with family or surrogate(s) is included only if the patient was incapable of providing the necessary information or participating in medical decision making. Time devoted to teaching and to any procedures I billed separately is not included. Time spent providing critical care services: 33 minutes. SIGNATURE: Hilda Cooley M.D. DATE: April 16, 2018 5:16 PM NURSING PROG Observed: 04/16/2018 Status: COMPLETED Source: [place] 8:00 AM [facility] REPOSITORY O ID: [id number] Author: Riana (Rn) BLAYNE Stein Service: (none) Author Type: Registered Nurse Type: Nursing Progress Note Filed: 04/16/2018 10:29 AM Note Text: Nursing Progress: Topic: RESTRAINT NON-VIOLENT PATIENT NAME: Lazaro Villafana PATIENT LOCATION: [place] [address] The patient demonstrates Attempting to Remove Medical Devices Vital to Medical Stability, Confusion, Lack of Understanding/Ability to Comply with Safety Directions as evidenced by the following behaviors reaching for ETT, lines and drains; unable to follow safety directions which pose an imminent danger to self or others. The following interventions were attempted but were not effective in protecting the patient's safety: Alarms, Medications Reviewed, Modify Environment, Modify Equipment Next, a comprehensive assessment was performed and warranted placing the patient in Soft Bilateral Wrists, the least restrictive restraint needed to protect the patient's safety. Ongoing safety assessments and evaluation for earliest removal of restraints will be performed. DATE: April 16, 2018 TIME: 10:29 AM Riana Stein RN PROGRESS Observed: 04/16/2018 Status: COMPLETED Source: [place] 7:34 AM [facility] REPOSIT[facility] ID: [id number] Author: Tammy Rocha Service: General Surgery Author Type: Physician Type: Progress Notes Filed: 04/16/2018 11:03 AM Note Text: GENERAL SURGERY PROGRESS NOTE ASSESSMENT AND PLAN 52 year old male with PMHx type II DM, poorly controlled HTN, CKD, COPD, tobacco smoker 2-3 PPD, alcohol use disorder with recent diagnosis of cirrhosis who presents on transfer from OSH with hematemesis s/p EGD at OSH c/b esophageal laceration vs Boerhaave's vs injury related to [place] tube on pressors intubated/sedated -supportive care - trend labs - may need repeat imaging to r/o mediastinal abscess - GI and thoracic surgery following - SICU *After 6pm and on weekends please page general surgery director of early childhood education [phone]* SUBJECTIVE/INTERVAL EVENTS EGD by GI yesterday w/ deep esophageal tear seen; not amenable to stenting OBJECTIVE BP 102/59 Pulse 72 Temp 37.3 ?C (99.1 ?F) (Oral) Resp 17 Wt 106.1 kg (233 lb 14.5 oz) SpO2 96% BMI 33.56 kg/m? Intake/Output Summary (Last 24 hours) at 04/16/18 0659 Last data filed at 04/16/18 0600 Gross per 24 hour Intake 7310.8 ml Output 2020 ml Net 5290.8 ml General: sedated, ill appearing CV: on pressors Pulm: vent Neck: no subQ crepitus appreciated Abdomen: soft Neuro: limited exam 05/21 sedation Labs/Imaging: CBC, BMP, MG, PHOS Recent Labs 04/16/18 0031 04/15/18 1637 04/15/18 0345 04/14/18211904/14/18 1700 03/07/18 0515 WBC 4.84 9.57 15.85* 22.38* 20.86* < > 3.17* HB 7.8* 6.4* 8.1* 8.9* 8.0* < > 11.4* HCT 22.6* 18.7* 23.4* 26.0* 25.0* < > 34.2* PLT 35* 48* 90* 117* 102* < > 46* NA 139 -- 136 140 136 < > 146* K 4.0 -- 4.8 5.0 6.6* < > 4.4 CHLOR 103 -- 98 100 102 < > 111* CO2 23 -- 23 24 22 < > 26 BUN 67* -- 74* 76* 73* < > 23* CREAT 1.97* -- 2.47* 2.71* 2.66* < > 1.20 GLUC 238* -- 359* 445* 545* < > 155* CA 7.2* -- 7.9* 7.1* 7.0* < > 8.9 MG 1.3* -- 1.7 1.3* -- -- 1.5 P 2.6* -- 2.9 4.7 -- -- 3.3 < > = values in this interval not displayed. Liver Function, Amylase, AND Lipase Recent Labs 04/16/18 0613 04/16/18 0106 04/16/18 0031 04/15/18 1636 04/15/18 0609 04/15/18 0345 04/14/180 04/14/18 1700 TPROT -- -- 5.2* -- -- 5.2* -- 4.9* 5.1* ALB -- -- 2.7* -- -- 2.6* -- 2.4* 2.2* ALT -- -- 22 -- -- 23 -- 23 27 AST -- -- 39 -- -- 44* -- 36 28 ALKPHOS -- -- 41 -- -- 47 -- 50 64 TBILI -- -- 1.5* -- -- 0.4 -- 0.7 0.7 LACT 1.4 2.8* -- 2.3* 3.1* -- < > -- 8.4* < > = values in this interval not displayed. Coags Recent Labs 04/16/18 0031 04/15/18 0500 04/15/18 0345 04/14/18 2120 APTT 31.6 -- Unable to assay. Specimen improperly collected/handled. -- INR 1.4* 1.3 Unable to assay. Specimen improperly collected/handled. 1.3 Active Hospital Problems Diagnosis Date Noted - Esophageal perforation 04/14/2018 Ted Proctor MD April 16, 2018 7:34 AM [id number] [facility] STAFF PHYSICIAN NOTE OF PERSONAL INVOLVEMENT IN CARE I have reviewed the progress note obtained and documented by the resident and I personally participated in the jang components. I have discussed the case and management of the patient's care. The following comments revise or confirm relevant jang components of the note. Patient transferred to [facility] on 04/14/18 for variceal bleeding and esophageal perforation most likely from [place]-Tony tube. CT shows perforation apparently walled off. Currently still on pressors. Had 2 units PCs and 1 unit platelets yesterday. WBC now 10.2, HGB 8.4, platelets 59K Known cirrhosis due to ETOH and not abstinent. Thrombocytopenic On insulin drip for DM2 with hyperglycemia Current hospital medications: albuterol 2.5 mg/0.5 mL 2.5 mg nebulizer solution (PROVENTIL) 2.5 mg INHALATION q 4 H PRN cefepime 2 g in D5W 100 mL MB+ (MAXIPIME) 2 g INTRAVENOUS q 12 H Chlorhexidine Gluconate 0.12 % 15 mL (PERIDEX) 15 mL ORAL QID dextrose 50 % 12.5-25 g injection 25-50 mL INTRAVENOUS PRN fentaNYL 50 mcg/mL 25-50 mcg injection (SUBLIMAZE) 25-50 mcg INTRAVENOUS q 1 H PRN fluconazole 200 mg in NaCl (iso-osmotic) 100 mL (DIFLUCAN) 200 mg INTRAVENOUS DAILY insulin regular 250 units in NaCl 0.9% 250 mL iv infusion - ICU NOMOGRAM 0.5-30 Units/hr INTRAVENOUS CONTINUOUS insulin regular human iv bolus 2-10 Units 2-10 Units INTRAVENOUS PRN ipratropium-albuterol 3 mL nebulizer solution (DUONEB) 3 mL INHALATION q 4 H PRN lactated ringers infusion 5-30 mL/hr INTRAVENOUS CONTINUOUS magnesium sulfate in water 2 g in sterile water 50 ml 2 g INTRAVENOUS PRN metroNIDAZOLE 500 mg PREMIX piggyback (FLAGYL) 500 mg INTRAVENOUS q 8 H mupirocin 2% 0.5 g nasal ointment (BACTROBAN) 0.5 g NASAL BID NaCl 0.9% 3-5 mL 3-5 mL INTRAVENOUS q 12 H NORepinephrine 16 mg in D5W 250 mL (LEVOPHED) 0.6-50 mcg/min INTRAVENOUS CONTINUOUS octreotide 500 mcg in D5W 100 mL (SandoSTATIN) 50 mcg/hr INTRAVENOUS CONTINUOUS pantoprazole 40 mg injection (PROTONIX) 40 mg INTRAVENOUS BID AC (0600/1600) potassium chloride 20-80 mEq CUP 20-80 mEq ORAL/FEEDING TUBE PRN potassium chloride iv piggyback 20 mEq/100 mL 20 mEq INTRAVENOUS PRN propofol infusion (DIPRIVAN) 5-60 mcg/kg/min INTRAVENOUS CONTINUOUS sodium glycerophosphate 15 mmol in D5W 250 mL (GLYCOPHOS) 15 mmol INTRAVENOUS PRN sodium glycerophosphate 30 mmol in D5W 250 mL (GLYCOPHOS) 30 mmol INTRAVENOUS PRN sodium glycerophosphate 45 mmol in D5W 250 mL (GLYCOPHOS) 45 mmol INTRAVENOUS PRN thiamine 200 mg in NaCl 0.9% 50 mL 200 mg INTRAVENOUS q 8 H BP 120/73 Pulse 78 Temp 36.9 ?C (98.4 ?F) (Oral) Resp 28 Wt 106.1 kg (233 lb 14.5 oz) SpO2 91% BMI 33.56 kg/m? On Vent, CMV, PEEP 8. FiO2 60% arterial blood gases Ph7.36, OZA693, PO2 88, HCO3 33, lactate 2. Component Latest Ref Rng AND Units 04/16/2018 Protein, Total 6.3 - 8.0 g/dL 5.2 (L) Albumin 3.9 - 4.9 g/dL 2.7 (L) Calcium 8.5 - 10.2 mg/dL 7.2 (L) Bilirubin, Total 0.2 - 1.3 mg/dL 1.5 (H) Alkaline Phosphatase 38 - 113 U/L 41 AST 14 - 40 U/L 39 Glucose 74 - 99 mg/dL 238 (H) BUN 9 - 24 mg/dL 67 (H) Creatinine 0.73 - 1.22 mg/dL 1.97 (H) Sodium 136 - 144 mmol/L 139 Potassium 3.7 - 5.1 mmol/L 4.0 Chloride 97 - 105 mmol/L 103 CO2 22 - 30 mmol/L 23 Anion Gap 9 - 18 mmol/L 13 ALT 10 - 54 U/L 22 exam as above IMPRESSION: Cirrhosis of liver, MELD 21 yesterday with estimated 19.6% risk of mortality in next 3 months. Child's class C Bleeding varices and esophageal perforation - seems to be improving PLAN: continue non-operative treatment, sandostatin, antibiotics, transfuse as needed. Tammy Rocha MD April 16, 2018 Tammy Rocha MD 10:49 AM Beeper PLAN OF CARE Observed: 04/16/2018 Status: COMPLETED Source: [place] 7:28 AM [facility] REPOSITORY [facility] ID: [id number] Author: Dony Baires MD (Fel) Service: Gastroenterology Author Type: Fellow Type: Plan of Care Filed: 04/16/2018 7:35 AM Note Text: This is a 52 YO M with history of presumed alcoholic cirrhosis who presented with hematemesis requiring Tony placement. Found to have esophageal varices on EGD along with an esophogeal tear. Patient was transferred to [facility] for CT surgery and GI evaluation. S/P EGD on 04/15 with noted significant deep esophageal tear from 31-38 cm along with large EV varices. This was not amenable for stenting given significant dilation. Recs: --- Strict NPO --- Continue pantoprazole 40 mg IV BID --- Octreotide for at least 7 days --- Cont broad antimicrobials --- Trend hemoglobin Q8 hours --- Transfuse blood products to maintain Hb > 7, Plt > 50, INR < 1.5 --- Continue to monitor for recurrent overt GIB. --- Consider hepatology consult for management of presumed cirrhosis --- Appreciate CT surgery recs ICU GI team will sign off. Dony Baires Fellow, Gastroenterology AND Hepatology April 16, 2018 7:34 AM CONSULT PROG Observed: 04/16/2018 Status: COMPLETED Source: [place] 6:31 AM [facility] REPOSITORY [facility] ID: [id number] Author: Francois Gann Service: Thoracic Surgery Author Type: Resident Type: Consult Progress Note Filed: 04/16/2018 7:55 AM Note Text: Attestation signed by Elliot Soto at 04/16/2018 2:52 PM Agree with consult progress note. The patient's hospital course, labs and imaging have been reviewed daily with consult recommendations formulated and discussed each day with resident team. Patient seen and examined at bedside. Showing some signs of clinical improvement. EGD images reviewed and discussed with interventional GI. Agree with plan to defer placement of esophageal stent. Patient will require strict NPO for a minimum of 2 weeks and will need another swallow study to evaluate partial-thickness esophageal tear. Elliot Soto MD [facility] THORACIC SURGERY CONSULT PROGRESS NOTE Lazaro Villafana [id number] PRIMARY SERVICE: HOSPITAL DAY: # 2 INTERVAL HISTORY No acute events overnight. Pt was off pressors, now back on Norepi 3 due to hypotension. EGD by GI yesterday, 5cm esophageal laceration.. PHYSICAL EXAM BP 92/55 Pulse 71 Temp 37.3 ?C (99.1 ?F) (Oral) Resp 11 Wt 106.1 kg (233 lb 14.5 oz) SpO2 97% BMI 33.56 kg/m? Intake/Output Summary (Last 24 hours) at 04/16/18 0631 Last data filed at 04/16/18 0600 Gross per 24 hour Intake 7310.8 ml Output 2020 ml Net 5290.8 ml Constitutional: intubated, opens eyes HEENT: intubated Resp: VENT FiO2 50, PEEP 10. Cardiovascular: Cardiac: Norepi 3 Integumentary: Warm Musculoskeletal: No deformities Neurological/Psychiatric: intubated Additional systems reviewed: No additional systems reviewed DATA Recent Labs 04/16/18 0031 04/15/18 1637 04/15/18 0345 WBC 4.84 9.57 15.85* HB 7.8* 6.4* 8.1* HCT 22.6* 18.7* 23.4* PLT 35* 48* 90* Recent Labs 04/16/18 0031 04/15/18 0345 04/14/18 2120 NA 139 136 140 K 4.0 4.8 5.0 CO2 23 23 24 BUN 67* 74* 76* CREAT 1.97* 2.47* 2.71* GLUC 238* 359* 445* MG 1.3* 1.7 1.3* IMAGING I personally reviewed: CXR ASSESSMENT AND PLAN 52 year old male with multiple medical comorbidities now with likely partial thickness esophageal perforation, putatively from S-B tube placement at OSH. It is unlikely that this is the etiology of his massive hemoptysis, reportedly there were multiple varices that, in the background of cirrhosis is the likely etiology of his bleed. While he is requiring high doses of vasopressors, it is unlikely that the source of his shock is purely from his esophageal perforation given his lack of pleural effusion or free flowing contrast. 04/15 EGD showed 5cm esophageal laceration without active bleeding. ? Plan: - STRICT NPO - Do NOT manipulate NGT blindly - no acute surgical intervention indicated at this point Francois Gann MD,PhD Pager [phone] 04/16/2018 6:31 AM GASA + ALL Collected: 04/16/2018 Status: F Source: [place] FOR 6:13 AM [facility] USE ONLY REPOSITORY TYPE CODE TESTS RESULT OUT OF REFERENCE UNITS RANGE LAB PH 7.35-7.45 pH 7.42 LAB PCO2 34-46 mm Hg pCO2 37 LAB PO2 85-95 mm Hg pO2 High 135 LAB BE mmol/L Base Excess NEG 1 LAB HCO3 22-26 mmol/L Bicarbonate 23 LAB CO2CT 22.0-28.0 mmol/L CO2 Content 24 LAB O2HB 95-98 % Oxyhemoglobin, Art. 97 LAB COHB 0-5.0 % Carboxyhemoglobin,A 1.1 rt LAB MHGB 0.4-1.5 % Methemoglobin 0.9 LAB TEMP C Temperature, Body 37.0 LAB PHTC 7.35-7.45 pH, Temp Corrected 7.42 LAB PCO2T 34-46 mm Hg pCO2, Temp Correct 37 LAB PO2T mm Hg pO2, Temp Corrected 135 LAB NAB 135-146 mmol/L Sodium,Whole Bld 138 LAB KWB 3.5-5.0 mmol/L Potassium, Whole Bld 3.9 LAB HGBB 13.0-17.0 g/dL Low Hemoglobin,Total,AC 8.2 L LAB HCTB 39.0-51.0 % Hematocrit, ACL Low 26 LAB IC 1.08-1.30 mmol/L Calcium, Ion, WB 1.09 LAB GLB 60-105 mg/dL Glucose,Whole Bld High 227 LAB LACT 0.5-2.2 mmol/L Lactate 1.4 Performed By: #### ALLBG #### [facility] [address] [place], [place] [address] XR CHEST 1V FRONTAL Observed: 04/16/2018 Status: F Source: [facility] 4:[address] [facility] REPOSITORY * * *Final Report* * * DATE OF EXAM: Apr 16 2018 4:04AM [facility] [id number] - XR CHEST 1V FRONTAL PORT / PROCEDURE REASON: Acute respiratory illness * * * * Physician Interpretation * * * * EXAMINATION: CHEST RADIOGRAPH (PORTABLE SINGLE VIEW AP) Exam Date/Time: 04/16/2018 4:04 AM Clinical History: Acute respiratory illness, MQ: [id number] Comparison: 1 day prior RESULT: See impression. IMPRESSION: Lines, tubes, and devices: The endotracheal tube ends in the thoracic trachea. The nasogastric/orogastric tube can be followed as far as the stomach. The right internal jugular venous catheter ends in the superior vena cava. Lungs and pleura: The lungs are hypoinflated. Bibasilar atelectasis is present. There is no pneumothorax. No substantial pleural effusion is seen. Cardiomediastinal silhouette: Stable cardiomediastinal silhouette. Steel Turner: PSCAlexys Transcribe Date/Time: Apr 16 2018 10:47A Dictated by : ELOISE GONSALVES MD This examination was interpreted and the report reviewed and electronically signed by: ELOISE GONSALVES MD on Apr 16 2018 10:48AM EST [id number] ALL Collected: 04/16/2018 Status: F Source: [place] FOR 1:06 AM [facility] USE ONLY REPOSITORY TYPE CODE TESTS RESULT OUT OF REFERENCE UNITS RANGE LAB PH 7.35-7.45 pH 7.38 LAB PCO2 34-46 mm Hg pCO2 37 LAB PO2 85-95 mm Hg pO2 Low 61 LAB BE mmol/L Base Excess NEG 3 LAB HCO3 22-26 mmol/L Bicarbonate Low 21 LAB CO2CT 22.0-28.0 mmol/L CO2 Content 22 LAB O2HB 95-98 % Oxyhemoglobin, Low Art. 88 LAB COHB 0-5.0 % Carboxyhemoglobin,A 1.1 rt LAB MHGB 0.4-1.5 % Methemoglobin 1.0 LAB TEMP C Temperature, Body 37.0 LAB PHTC 7.35-7.45 pH, Temp Corrected 7.38 LAB PCO2T 34-46 mm Hg pCO2, Temp Correct 37 LAB PO2T mm Hg pO2, Temp Corrected 61 LAB NAB 135-146 mmol/L Sodium,Whole Bld 139 LAB KWB 3.5-5.0 mmol/L Potassium, Whole Bld 3.7 LAB HGBB 13.0-17.0 g/dL Low Hemoglobin,Total,AC 8.5 L LAB HCTB 39.0-51.0 % Hematocrit, ACL Low 26 LAB IC 1.08-1.30 mmol/L Calcium, Ion, WB Low 1.07 LAB GLB 60-105 mg/dL Glucose,Whole Bld High 230 LAB LACT 0.5-2.2 mmol/L Lactate High 2.8 Performed By: #### ALLBG #### [facility] [address] [place] [address] PROTIME Collected: 04/16/2018 Status: F Source: [place] 12:31 AM [facility] REPOSITORY TYPE CODE TESTS RESULT OUT OF RANGE REFERENCE UNITS LAB PSEC 9.7-13.0 sec High PT Sec 14.2 LAB INR 0.9-1.3 High PT INR 1.4 Result Comment: Vitamin K Antagonist (VKA) Therapeutic Range: INR 2 to 3 (Target INR of 2.5) Note: For patients treated with VKA drugs, such as warfarin, the [place] [employer] 2012 Guideline recommends a therapeutic INR range of 2 to 3 (target INR of 2.5). This recommendation includes high-risk patients with antiphospholipid syndrome with previous arterial or venous thromboembolism, current-generation mechanical or bioprosthetic aortic heart valve replacement. Note: Patients with mechanical aortic valve replacement and additional risk factors for thromboembolic events (atrial fibrillation, previous thromboembolism, LV dysfunction, hypercoagulable conditions) or an older generation mechanical AVR (i.e., ball in-Cage) or any mechanical MVR should have a INR therapeutic range of 2.5 to 3.5 (target INR of 3). Serjio GH, et al. Chest 2012, 141:7S-47S Rashida RA, et al. [facility] 2017, 70: 252-289 Performed By: #### PT, PTT, CMP, MG1, PHOS, CBC #### [facility] [facility] [address] [place] [id number] APTT Collected: 04/16/2018 Status: F Source: [place] 12:31 [facility] REPOSITORY TYPE CODE TESTS RESULT OUT OF RANGE REFERENCE UNITS LAB APTT 23.0-32.4 sec APTT 31.6 Result Comment: Unfractionated Heparin Therapeutic Ranges: Standard Heparin Nomogram: 53 to 78 seconds (anti-Xa level of 0.3 to 0.7 U/ml) Low Dose/ACS Nomogram: 49 to 67 seconds (anti-Xa level of 0.2 to 0.5 U/ml) Stroke Treatment Nomogram: 49 to 67 seconds (anti-Xa level of 0.2 to 0.5 U/ml) Note: The APTT therapeutic range has been determined for the current lot of laboratory APTT reagent in use throughout the [facility]. Performed By: #### PT, PTT, CMP, MG1, PHOS, CBC #### [facility] [address] [place], [place] [address] COMP METABOLIC PANEL Collected: 04/16/2018 Status: F Source: [place] 12:[address] [facility] REPOSITORY TYPE CODE TESTS RESULT OUT OF REFERENCE UNITS RANGE LAB TP 6.3-8.0 g/dL Low Protein, Total 5.2 LAB ALB 3.9-4.9 g/dL Low Albumin 2.7 LAB CA 8.5-10.2 mg/dL Low Calcium, Total 7.2 LAB TBIL 0.2-1.3 mg/dL Bilirubin, High Total 1.5 LAB ALKP 38-113 U/L Alkaline Phosphatase 41 LAB AST 14-40 U/L AST 39 LAB GLU 74-99 mg/dL Glucose High 238 Result Comment: The [place] [employer] Association (ADA) provides guidance for cutoff values for fasting glucose and random glucose. The ADA defines fasting as no caloric intake for at least 8 hours. Fas ting plasma glucose results between 100 to 125 mg/dL indicate increased risk for diabetes (prediabetes). Fasting plasma glucose results greater than or equal to 126 mg/dL meet the criteria for diagnosis of diabetes. In the absence of unequivocal hyperglycemia, results should be confirmed by repeat testing. In a patient with classic symptoms of hyperglycemia or hyperglycemic crisis, random plasma glucose results greater than or equal to 200 mg/dL meet the criteria for diagnosis of diabetes. Reference: Standards of Medical Care in Diabetes 2016, [place] [employer] Association. Diabetes Care. 2016.39(Suppl 1). LAB BUN 9-24 mg/dL BUN High 67 LAB CRET 0.73-1.22 mg/dL Creatinine High 1.97 LAB NA 136-144 mmol/L Sodium 139 LAB K 3.7-5.1 mmol/L Potassium 4.0 LAB CL 97-105 mmol/L Chloride 103 LAB CO2 22-30 mmol/L CO2 23 LAB AGAP 9-18 mmol/L Anion Gap 13 LAB ALT 10-54 U/L ALT 22 LAB GFRAA eGFR- Amer. 44 LAB GFRNAA . eGFR-All Other Races 36 Result Comment: eGFR (Estimated GFR) Units of measure: mL/min/1.73 meters squared eGFR is derived from the reexpressed MDRD Study equation using the following parameters: serum creatinine, age, gender and race. The creatinine assay has been calibrated to be traceable to IDMS. An eGFR <60 mL/min/1.73m2 for >3 months is consistent with chronic kidney disease. Refer to KDOQI guidelines for clinical interpretation. In patients with unstable renal function, e.g. those with acute kidney injury, the eGFR may not accurately reflect actual GFR. Performed By: #### PT, PTT, CMP, MG1, PHOS, CBC #### [facility] [address] [place] [address] MAGNESIUM Collected: 04/16/2018 Status: F Source: [place] 12:31 AM [facility] REPOSITORY TYPE CODE TESTS RESULT OUT OF REFERENCE UNITS RANGE LAB MG 1.7-2.3 mg/dL Low Magnesium 1.3 Performed By: #### PT, PTT, CMP, MG1, PHOS, CBC #### [place] [address] PHOSPHORUS Collected: 04/16/2018 Status: F Source: [place] 12:31 AM [facility] REPOSITORY TYPE CODE TESTS RESULT OUT OF REFERENCE UNITS RANGE LAB PHOS 2.7-4.8 mg/dL Low Phosphorus 2.6 Performed By: #### PT, PTT, CMP, MG1, PHOS, CBC #### [place] [address] CBC Collected: 04/16/2018 Status: F Source: [place] 12:[address] [place] [address] REPOSITORY TYPE CODE TESTS RESULT OUT OF REFERENCE UNITS RANGE LAB WBC 3.70-11.00 k/uL WBC 4.84 LAB RBC 4.20-6.00 m/uL Low RBC 2.61 LAB HGB 13.0-17.0 g/dL Low Hemoglobin 7.8 LAB HCT 39.0-51.0 % Low Hematocrit 22.6 LAB MCV 80.0-100.0 fL MCV 86.6 LAB MCH 26.0-34.0 pG MCH 29.9 LAB MCHC 30.5-36.0 g/dL MCHC 34.5 LAB RDWCV 11.5-15.0 % RDW-CV High 15.2 LAB PLTCT 150-400 k/uL Low Platelet Count 35 Result Comment: Result checked and verified No clot detected. LAB MPV 9.0-12.7 fL MPV 11.2 LAB ABSNUC <0.01 k/uL High Absolute nRBC 0.01 Performed By: #### PT, PTT, CMP, MG1, PHOS, CBC #### [facility] [address] [place], [place] [address] TYPE AND SCREEN Collected: 04/16/2018 Status: F Source: [place] 12:31 AM [facility] REPOSITORY TYPE CODE TESTS RESULT OUT OF REFERENCE UNITS RANGE LAB %ABR B ABO/RH(D) POSITIVE LAB % Antibody NEG Screen Performed By: #### TSCR #### [facility] [address] [place], [place] [address] NURSING PROG Observed: 04/15/2018 Status: COMPLETED Source: [place] 8:00 PM [facility] REPOSITORY HNO ID: [id number] Author: German Ferreira) BLAYNE Cavazos Service: (none) Author Type: Registered Nurse Type: Nursing Progress Note Filed: 04/15/2018 11:13 PM Note Text: Nursing Progress: Topic: RESTRAINT NON-VIOLENT PATIENT NAME: Lazaro Villafana PATIENT LOCATION: [place] [address] The patient demonstrates Attempting to Remove Medical Devices Vital to Medical Stability, Confusion, Lack of Understanding/Ability to Comply with Safety Directions, Impulsive Behavior, Inability to be Redirected, Inability to Retain Information Regarding Safety Directions as evidenced by the following behaviors attempting to pull at lines and tubes which pose an imminent danger to self or others. The following interventions were attempted but were not effective in protecting the patient's safety: Contraindicated - Imminent Safety Risk Next, a comprehensive assessment was performed and warranted placing the patient in Soft Bilateral Wrists, the least restrictive restraint needed to protect the patient's safety. Ongoing safety assessments and evaluation for earliest removal of restraints will be performed. DATE: April 15, 2018 TIME: 11:12 PM Geramn Cavazos RN PROGRESS Observed: 04/15/2018 Status: COMPLETED Source: [place] 5:52 PM [facility] REPOSITORY HNO ID: [id number] Author: Regine De Leon Service: (none) Author Type: Nurse Practitioner Type: Progress Notes Filed: 04/16/2018 9:04 PM Note Text: Critical Care Transport Note Patient Name: Lazaro Villafana Service Date: 04/14/18 Referring Physician: Portillo Referring Facility: [facility] Accepting Physician: Josefina Accepting Facility: [facility] SUBJECTIVE/CHIEF COMPLAINT: Hematemesis, Upper GI bleed REASON FOR TRANSPORT: Specialized tertiary and quaternary care for the patient's acute upper GIB condition not available at the referring facility. History of Present Illness: The following history is what was known to CCT team at time of given care and summarized through review of available medical records, patient/family interview and from referring physician and nursing report. Lazaro Villafana is a 52 year old male with a past medical history significant for significant ETOH abuse, mult-isubstance abuse, recent diagnosis of cirrhosis, esophageal varices, 2-3 PPD smoker, DM and COPD. He presented to [facility] initially today for evaluation of bright red blood in emesis. Per report, he had been feeling unwell for the past few days with loss of appetite and diarrhea. His reported that he has a history of heavy drinking but over the last few days, his alcohol consumption decr and yesterday drank 2 beers. He had an episode of dark red emesis last night and maroon to black stool this AM. He presented to the ED with c/o lightheadedness, dizziness and SOB. denies hx of GI bleed, but has nose bleeds occasionally and takes 2-3 ASA daily for back pain. He has a hx of a positive PPD, but has never been followed up or treated. In the [facility] ED, he had massive emesis and a Tony tube was placed and he was intubated there for airway protection. Initial labs: INR 1.7, Hgb 7.1, WBC 13.1, Lactate 6.2, glucose 611, trop 0.36. He received 2 L NS IVF and 2 additional PRBC and 2 FFP. He was started on Protonix and Octreotide infusions and he was transferred then to [facility] for further care. On arrival to [facility] he was noted to be hypotensive (SBP in 60s), assumed to be bleeding and an emergent EGD was performed. Grade 2 varices were noted with no active bleed and at level 31-38 cm (scope depth) was noted a large clot overlying a large esophageal tear and NGT was placed. He was given 2 additional units of PRBC, Levo for hypotension, given Flagyl and Aztreonam for abx coverage, Protonix infusion was stopped, octreotide infusion continued. VBG 7.022/82.2/56.5/23.4, lactate 8.4, K+ 6.6, Na 136, BUN/Creat 73/2.66, Glucose 545, Ammonia 115, Tbili 0.7. He was started on Bicarb infusion, given 2 amps Bicarb. Currently he is on 25 mcg Levo, Octreotide, Propofol for sedation, Bicarb gtt, small amt dark red blood from NGT. At this time, the physician managing the patient requested transfer to the [facility] for tertiary and/or quaternary GI surgery services unavailable at the referring facility. The physician managing the patient requested the [facility] Critical Care Transport Team transport and treat the patient for the purpose of tertiary care, evaluation, and management of his Acute upper GI bleed, hemorrhage, hypovolemic shock, lactic acidosis, respiratory failure condition(s). Patient condition at time of exam was: Acutely ill and critically ill. Due to the unique circumstances of the patient, it was determined that this was the closest, most appropriate facility by referring physician. ROS: Could not obtain due to patient's mental status/critical illness PAST MEDICAL HISTORY: PAST MEDICAL HISTORY Diagnosis Date - Cirrhosis (HCC) - COPD (chronic obstructive pulmonary disease) (HCC) - Diabetes (HCC) - ETOH abuse - Hypertension PAST SURGICAL HISTORY: No past surgical history on file. ALLERGIES: Ciprofloxacin; Penicillin SOCIAL HISTORY: Social History Substance Use Topics - Smoking status: Current Every Day Smoker - Smokeless tobacco: Not on file - Alcohol use Yes FAMILY HISTORY: No family history on file. HOME MEDICATIONS: ASA PRN for back pain No other meds reported Medications Administered by Referring Facility: Norepinephrine 25 mcg/min Octreotide 50 mcg/hr Protonix (started in [place], has been DCd) Bicarbonate 1 amp/1000 ml - 125 ml/hr Insulin infusion Propofol 25 mcg/kg/min Flagyl 500 mg IV Aztreonam 1 gm IV Rocephin ([facility]) PRBC 4 units (2 by [facility], 2 by [facility]) FFP 2 units ([facility]) LR 1.5 L IV fluids Thiamine 200 mg IV OBJECTIVE: Recent Labs, Diagnostics AND Procedure Reports reviewed as available. Referring Facility Labs CBC: WBC 20.86k Hgb 8.9 Hct 25.0 Plt 102K CHEMISTRY: Na 136 K 6.6 Cl 102 CO2 22 BUN 73 SCr 2.66 Glu 545 Ca 7.0 AG 19 Liver enzymes AST 28 ALT 27 AP 64 Tbili 0.7 TP 5.1 Alb 2.2 Cardiac Enzymes: Trop T 0.362 VBG: pH 7.022, PaCO2 82.2, PaO2 56.5, BiCarb 23.4, Lactate 8.4 Ammonia 115 Diagnostics AND Procedure Reports EC-lead not available to CCT at the time of transport CXR: (per OSH radiology report) ET tube in place above the level of the bethany. Radiopaque tube extending below the level of the diaphragm. No obvious consolidations, pleural effusions, airspace opacities. Procedure/Operative Report(s): EGD procedure - Reviewed Invasive Lines/Devices/Tubes Placed by Referring Facility: ETT 7.5, 25 at the lip Mcclain cath PIV x 5 NGT PHYSICAL EXAM: Upon CCT Arrival at Referring Facility Vital Signs: HR 102bpm, BP 94/66(76)mmHg, RR 16, SpO2 100% Oxygen/Ventilator Settings: AC/VC rate 18, Vt 580, FiO2 80%, PEEP 6+ General appearance: Intubated, sedated, responsive to tactile stimulation. HEENT: normocephalic, PERRL, 2mm briskly reactive. Oropharynx clear, no plaques or exudates, Mucous membranes moist, Nasal mucosa non-edematous and No rhinorrhea Respiratory: clear to auscultation bilaterally, no respiratory distress, no rales, no rhonchi, no wheezing, no retractions, no cyanosis. Cardiovascular: no murmurs, no rubs, no gallops, regular rate and rhythm, peripheral pulses palpable and symmetric, 2+. No peripheral edema noted. Extremities warm, cap refill < 3 sec. Gastrointestinal: NGT with sm-mod amt dark red blood. soft, nontender, nondistended, no organomegaly, normal bowel sounds and no masses. Genitourinary: Exam deferred, mcclain cath present, small amt clear yellow urine Musculoskeletal: No clubbing, cyanosis or edema, no joint swelling, no bony tenderness and no deformities Skin: Mildly diaphoretic, normal, no abrasions or open wounds, no rashes noted. Heme/Lymph: See HPI. No external signs of bleeding. No unusual bruising noted. No cervical lymphadenopathy Neurologic: Intubated, sedated. Responds to tactile stimulation. Not following commands. Sensory intact. GCS Eyes: 1: None Verbal: T: Intubated Motor: 5: Localizes to stimulation Total: 7T CRITICAL CARE COURSE Upon bedside arrival at referring facility the patient was assessed and detailed physical exam performed. Initial exam findings as described above. The patient was placed on the transport monitor and all transport equipment transitioned in standard fashion. On initial exam, pt remained intubated, sedated, responsive to tactile stim, Levo, octreotide, Bicarb, propofol and insulin infusions continue. BP remained marginally low, levo titrated as needed. Pt began to cough and retch forcefully, fentanyl given as needed for sedation. Blood sugar checked at bedside, 394, insulin held as BS dropped ~200 in 2 hours and lack of available IV pumps for needed infusions. The patient was transferred to the transport cot and transported to the Ambulance and loaded without incident. An arterial line was attempted en-route (unsuccessful) as patient became acutely hypotensive with sedation. NS 0.9% IV fluids given wide open as was platelets given by OSH. The patient was medically managed, monitored, and reassessed during transport. On arrival to receiving unit, pt's BP more stable, levo, octreotide, propofol infusions continued. Medications Managed AND Administered by CCT: Norepinephrine - continued and titrated Propofol - continued and titrated Octreotide - continued Sodium Bicarb 1 amp/1L - continued Insulin - continued and then held Fentanyl 50 mcg IV x 2 1 5 pk platelets - as ordered by OSH Procedures Performed by CCT: Arterial line - attempt unsuccessful Ventilator management ASSESSMENT/PLAN: Lazaro Villafana is a 52 year old male admitted to OSH from another remote hospital with massive hematemesis, esophageal varices. A Tony tube was placed, pt intubated, 2 units PRBC and FFP given by other remote hospital and he was transferred to [facility]. There an EGD was performed that showed no further bleeding from esophagus, but patient remained in shock with lactic acidosis and evidence of multi organ dysfunction. Upper GI bleed Esophageal varices Acute blood loss anemia Hypovolemic shock Lactic acidosis Liver cirrhosis Thrombocytopenia - Initial exam as above, levo, octreotide, bicarb, insulin and propofol infusions continue - Continue Levo, titrate as needed - goal MAP > 65 mmHg - Additional IV fluids as needed for hypotension - Attempt arterial line for continuous BP monitoring - unsuccessful - PRBC 4 units, FFP 2 units given by OSH - H/H 8.9/25.0, Plt 102 - EGD showed no further bleeding - Replace Plt as ordered by OSH - Tony tube removed by [facility], NGT in place - Fentanyl for sedation as coughing/retching - high risk esoph hemorrhage - Expedite transport to [facility] for further surgical work up of acute UGIB Acute Respiratory failure - No known hx of COPD, asthma, respiratory illness - Current 2-3 ppd smoker - Intubated in [facility] for airway protection with massive hematemesis - Vent settings: ACVC rate 18, FiO2 70%, Vt 525, PEEP 6+ - Wean FiO2 as possible - goal SaO2 > 94% Acute kidney Injury Hyperkalemia - No known hx acute or chronic renal dz prior to admit - BUN/Creat 73/2.66, K+ 6.6 - Acute injury r/t low flow state r/t shock/hypovolemia - On insulin and Bicarb infusions - Monitor closely for ectopy - Follow up needed at receiving unit Elevated Troponin - No known hx cardiac dz - Trop 0.362 - Likely cardiac strain r/t shock/hypovolemia - Follow up needed by receiving unit Hyperglycemia - Known hx DMII, unknown medical regimen, compliance - Gluc 611 in [place], 545 at [facility], on insulin infusion - Accu check 394 when CCT at - Insulin infusion on hold d/t precipitous drop and pump not available Hx of ETOH abuse - Known hx of heavy ETOH abuse, drank 2 beers yesterday - Will monitor for signs of acute withdrawal - Ativan if needed for seizures - Follow up counseling deferred to receiving unit The transport was completed without significant incident or change in the patient's status. The patient was transported to the the [facility] by [facility] (Helicopter) for tertiary and/or quaternary evaluation and management of his Critical Medical and Surgical condition(s). Upon arrival to the receiving facility, a [id number] report was given to bedside nursing staff in [id number] and Staff Physician: Dr. Meneses. Patient care was transferred. The patient condition was Critical and Acutely Ill at the time of transfer. Vital Signs at time care transferred to the receiving facility unit: HR 103bpm, Rhythm sinus tach, BP 87/54(67) mmHg, RR 18, SpO2 97% on FiO2 50%, ETCO2 38, pPlat 11 SPECIAL EQUIPMENT: None MODE OF TRANSPORT: Surface (Ground) CRITICAL CARE TIME:I personally performed 45 minutes of critical care time exclusive of separately billable procedures, ambulance charges and treating other patients. This was necessary to treat or prevent further deterioration of the following condition(s): Acute upper GI bleed, hypotension, respiratory failure and the Cardiovascular impairment, Respiratory impairment, Shock and Cardiac Arrest which the patient had and/or had a high probability of suddenly developing. SIGNATURE: Regine De Leon APRN.CNP Acute Care Nurse Practitioner [facility] Critical Care Transport Team PROCEDURE Observed: 04/15/2018 Status: COMPLETED Source: [place] 5:51 PM [facility] REPOSITORY O ID: [id number] Author: Regine De Leon Service: (none) Author Type: Nurse Practitioner Type: Procedures Filed: 04/16/2018 9:04 PM Note Text: Arterial Line PROCEDURE NOTE Patient: Lazaro Villafana Date: April 15, 2018 INFORMED CONSENT: Informed consent was not obtained due to clinical factors necessitating an emergent procedure. SAFE PRACTICE Sign in Communication: Emergent N/A. Time Out: The procedural team confirmed the Correct Patient, the Correct Procedure, the Correct Site and the Correct Position (if applicable) during the audible time out: Emergent N/A. Sign Out Communication: Emergent N/A. INDICATION FOR LINE PLACEMENT: Continuous blood pressure monitoring CONDITION OF LINE PLACEMENT: Sterile PRIMARY PROCEDURALIST: JANAE Segura PROCEDURE NARRATIVE Site Marked: Yes Vero?s Test positive Skin Preparation: Chlorhexidine Gluconate Barriers Used by Proceduralist and All Assisting Personnel: Yes Barriers Used: Sterile Gloves CATHETER PLACEMENT/PLACEMENT TECHNIQUE Anesthesia was not utilized d/t the emergent nature of the procedure. The left radial artery was cannulated with a 20 g arterial catheter. Number of attempts at insertion: 1 Bright red pulsatile blood exited catheter:No Appropriate wave form was noted: No Line Secured with: NA Sterile dressing applied and dated: No, unsuccessful attempt Estimated Blood Loss: None Procedure was performed while vehicle in motion: yes COMPLICATIONS: None. The patient tolerated the procedure well Successful Placement: no SIGNATURE: Regine De Leon APRN.CNP PATIENT NAME: Lazaro Villafana DATE: 04/14/18 XR CHEST 1V FRONTAL Observed: 04/15/2018 Status: F Source: [facility] 5:[address] [facility] REPOSITORY * * *Final Report* * * DATE OF EXAM: Apr 15 2018 5:38PM [place] 5376 - XR CHEST 1V FRONTAL PORT / PROCEDURE REASON: Post-operative / post-procedure assessment, asymptomatic * * * * Physician Interpretation * * * * EXAMINATION: CHEST RADIOGRAPH (PORTABLE SINGLE VIEW AP) Exam Date/Time: 04/15/2018 5:38 PM Clinical History: Post-operative / post-procedure assessment, asymptomatic, MQ: [id number] Comparison: 1 day prior RESULT: See impression. IMPRESSION: Lines, tubes, and devices: The tip of the ET tube is 4 cm proximal to bethany. An enteric tube now courses below the diaphragm. The tip of the right IJ venous catheter overlies the mid SVC. Lungs and pleura: The lungs appear hypoinflated. There are patchy bibasilar airspace opacities most commonly secondary to nonspecific atelectasis. No pleural effusion or pneumothorax is identified. Cardiomediastinal silhouette: Stable cardiomediastinal silhouette. Apparent cardiomegaly is likely in part secondary to the reduced lung volumes. Steel Turner: PSCB Transcribe Date/Time: Apr 15 2018 6:42P Dictated by : WASHINGTON MONTANEZ MD This examination was interpreted and the report reviewed and electronically signed by: WASHINGTON MONTANEZ MD on Apr 15 2018 6:43PM EST [id number] NT Observed: 04/15/2018 Status: COMPLETED Source: [place] 4:45 PM [facility] REPOSITORY HNO ID: [id number] Author: Amy Nj/Whitney Lang Service: Occupational Therapy Author Type: Occupational Therapist Type: Therapy (PT/OT/Speech/Resp) Filed: 04/15/2018 4:46 PM Note Text: OCCUPATIONAL THERAPY MISSED VISIT SERVICE DATE: 04/15/2018 SERVICE TIME: 1118 to 1118 ROOM: [place] [address] Attempted Evaluation. Patient not seen due to Illness. Will attempt again as schedule permits. SIGNATURE: AMY LANG OT/Julio PATIENT NAME: Lazaro Villafana DATE: April 15, 2018 TIME: 4:46 PM CBC Collected: 04/15/2018 Status: F Source: [place] 4:37 PM [facility] REPOSITORY TYPE CODE TESTS RESULT OUT OF REFERENCE UNITS RANGE LAB WBC 3.70-11.00 k/uL WBC 9.57 LAB RBC 4.20-6.00 m/uL Low RBC 2.22 LAB HGB 13.0-17.0 g/dL Low Hemoglobin 6.4 LAB HCT 39.0-51.0 % Low Hematocrit 18.7 LAB MCV 80.0-100.0 fL MCV 84.2 LAB MCH 26.0-34.0 pG MCH 28.8 LAB MCHC 30.5-36.0 g/dL MCHC 34.2 LAB RDWCV 11.5-15.0 % RDW-CV High 16.1 LAB PLTCT 150-400 k/uL Low Platelet Count 48 Result Comment: No clot detected. LAB MPV 9.0-12.7 fL MPV 11.9 LAB ABSNUC <0.01 k/uL Absolute nRBC <0.01 Performed By: #### CBC #### [facility] [address] [place], [place] [address] GASA + ALL Collected: 04/15/2018 Status: F Source: [place] FOR 4:36 PM [facility] RADIANCE USE ONLY REPOSITORY TYPE CODE TESTS RESULT OUT OF REFERENCE UNITS RANGE LAB PH 7.35-7.45 pH 7.44 LAB PCO2 34-46 mm Hg pCO2 36 LAB PO2 85-95 mm Hg pO2 89 LAB BE mmol/L Base Excess 0 LAB HCO3 22-26 mmol/L Bicarbonate 24 LAB CO2CT 22.0-28.0 mmol/L CO2 Content 25 LAB O2HB 95-98 % Oxyhemoglobin, Art. 97 LAB COHB 0-5.0 % Carboxyhemoglobin,A 0.9 rt LAB MHGB 0.4-1.5 % Methemoglobin Low 0.1 LAB TEMP C Temperature, Body 37.0 LAB PHTC 7.35-7.45 pH, Temp Corrected 7.44 LAB PCO2T 34-46 mm Hg pCO2, Temp Correct 36 LAB PO2T mm Hg pO2, Temp Corrected 89 LAB NAB 135-146 mmol/L Sodium,Whole Bld 139 LAB KWB 3.5-5.0 mmol/L Potassium, Whole Bld 3.8 LAB HGBB 13.0-17.0 g/dL Low Hemoglobin,Total,AC 6.4 L LAB HCTB 39.0-51.0 % Hematocrit, ACL Low 20 LAB IC 1.08-1.30 mmol/L Calcium, Ion, WB Low 1.06 LAB GLB 60-105 mg/dL Glucose,Whole Bld High 123 LAB LACT 0.5-2.2 mmol/L Lactate High 2.3 Performed By: #### ALLBG #### [facility] [address] [place], [place] [address] XR ABDOMEN 1V SUPINE Observed: 04/15/2018 Status: F Source: [place] 4:31 PM [facility] REPOSITORY * * *Final Report* * * DATE OF EXAM: Apr 15 2018 4:31PM [facility] 5289 - XR ABDOMEN 1V SUPINE / PROCEDURE REASON: Evaluate tube, line or lead position * * * * Physician Interpretation * * * * PORTABLE SUPINE ABDOMEN 04/15/2018 4:31 PM HISTORY: Tube placement. TECHNIQUE: 1 supine abdominal film(s). IMPRESSION: Stomach is gas-filled and moderately dilated. Nasogastric tube is coiled in the fundus with its tip in the gastric body. There are multiple gas-filled bowel loops in the visualized mid abdomen, predominantly small bowel, that measure up to 3.5 cm. Lower abdomen and pelvis are not visualized. Steel Turner: [facility] Transcribe Date/Time: Apr 15 2018 5:18P Dictated by : ELIO FLOWERS MD This examination was interpreted and the report reviewed and electronically signed by: ELIO FLOWERS MD on Apr 15 2018 5:19PM EST [id number] PLAN OF CARE Observed: 04/15/2018 Status: COMPLETED Source: [place] 4:04 PM [facility] REPOSITORY HNO ID: [id number] Author: Dony Baires MD (Fel) Service: Gastroenterology Author Type: Fellow Type: Plan of Care Filed: 04/16/2018 7:28 AM Note Text: Patient is s/p EGD at bedside with evidence of hematin and blood clots in both esophagus and stomach. Deep esophageal tear previously described noted ~5 cm in length (please refer to procedure note for full details). This is not amenable to endoscopic esophogeal stenting. - Will communicate with CT surgery - Please continue patient on PPI IV BID - Please continue patient on octreotide - Rest of recs per consult note Dony Baires Fellow, Gastroenterology AND Hepatology April 15, 2018 4:07 PM [facility] Observed: 04/15/2018 Status: COMPLETED Source: [place] 2:[address] [facility] REPOSITORY HNO ID: [id number] Author: Chaplain Mendoza (Chaplain) Service: Healing Service Author Type: Cardiac Surgeon Type: Allied Health Filed: 04/15/2018 3:05 PM Note Text: HEALING SERVICES THERAPY NOTE SERVICE DATE: 04/15/2018 SERVICE TIME: 7 INTERVENTIONAL FOCUS: Other: Introductory visit Visit With: Patient Urgency of Visit: Routine Type of Visit: Patient Not Available, in with medical team Patient and/or Family currently not available to speak with. Left materials and contact information at bedside. SIGNATURE: Amauri Holland MDiv., Healing Services Specialist PATIENT NAME: Lazaro Villafana DATE: April 15, 2018 TIME: 3:04 PM PAGER/CONTACT #: [phone] NURSING PROG Observed: 04/15/2018 Status: COMPLETED Source: [place] 1:[address] [facility] REPOSITORY HNO ID: [id number] Author: Estrellita GhoshRn) BLAYNE Fung Service: (none) Author Type: Registered Nurse Type: Nursing Progress Note Filed: 04/15/2018 1:25 PM Note Text: Nursing Progress Note Patient Name: Lazaro Villafana Patient Location: [place] [address] 1320: GI at bs to scope This note was completed by: Estrellita Fung RN THERAPY NT Observed: 04/15/2018 Status: COMPLETED Source: [place] 11:[address] [facility] REPOSITORY HNO ID: [id number] Author: Ekaterina Zabala Service: Physical Therapy Author Type: Physical Therapist Type: Therapy (PT/OT/Speech/Resp) Filed: 04/15/2018 11:38 AM Note Text: PHYSICAL THERAPY MISSED VISIT SERVICE DATE: 04/15/2018 SERVICE TIME: 1137 to 1137 ROOM: [place] [address] Attempted Evaluation. Patient not medically appropriate for PT. Currently intubated, sedated, and on pressors. Will reattepmt at another time. SIGNATURE: Ekaterina Zabala PT PATIENT NAME: Lazaro Villafana DATE: April 15, 2018 TIME: 11:38 AM CONSULT Observed: 04/15/2018 Status: COMPLETED Source: [place] 10:10 AM [facility] REPOSITORY HNO ID: [id number] Author: Leena Li Service: Infectious Disease Author Type: Physician Type: Consults Filed: 04/15/2018 2:40 PM Note Text: INITIAL CONSULT INFECTIOUS DISEASE SERVICE DATE: 04/15/2018 SERVICE TIME: 10:11 AM We were asked to evaluate Mr. Lazaro Villafana, a 52 year old yo male by Dr. Greta Carballo for history of positive PPD. Our findings and recommendations will be communicated through the shared medical record. Subjective HPI: 52 yo M with a h/o : - Alcohol cirrhosis c/b portal HTN / EV - CKD - HTN - COPD - + PPD He presents to the SICU from [facility] on 04/14 for an esophageal tear/perforation. Required 3 units of PRBC at [place] prior to transfer EGD with clots covering tear; no intervention was done. Continues to be on pressors (Norepi 20 mcg this am AND vasopressin 0.03) WCC 22 on arrival and 15 this am. LIANE on CKD with improvement in Cr this am 2.4 (from 2.7 yesterday) Per documentation by primary team appears to have a history of + PPD (unclear in which health system) Unsure of treatment status. The patient is currently intubated for airway protection in the setting of varices and an esophageal rupture and history is unobtainable. Called Spouse (Sushila Villafana) at [phone] who is listed as emergency contact x 2 with no response. No family by bedside. RT suctioning this am without any thick sputum, dark blood tinge noted. He is on FiO2 40% since arrival with no challenge in mechanical ventilation. Exposure History Not assessed due to patient's critically ill status and no collateral history provided at this time CURRENT ANTIBIOTICS: 04/14 Aztreonam x 1 Metronidazole (04/14 - ) Fluconazole 500 (04/15 - ) Vancomycin x 1 (04/15) Current other medications reviewed. Current Facility-Administered Medications: albuterol 2.5 mg/0.5 mL 2.5 mg nebulizer solution (PROVENTIL) 2.5 mg INHALATION q 4 H PRN cefepime 2 g in D5W 100 mL MB+ (MAXIPIME) 2 g INTRAVENOUS q 12 H Chlorhexidine Gluconate 0.12 % 15 mL (PERIDEX) 15 mL ORAL QID dextrose 40 % 15 g 15 g ORAL PRN Or glucagon 1 mg injection (GLUCAGEN) 1 mg INTRAMUSCULAR PRN Or dextrose 50 % 12.5 g injection 12.5 g INTRAVENOUS PRN enteric contrast (radiology procedure) ORAL DIRECTED PRN fentaNYL 50 mcg/mL 25-50 mcg injection (SUBLIMAZE) 25-50 mcg INTRAVENOUS q 1 H PRN fluconazole 200 mg in NaCl (iso-osmotic) 100 mL (DIFLUCAN) 200 mg INTRAVENOUS DAILY insulin regular iv infusion 250 units in NaCl 0.9% 250 mL - ADULT DKA/HYPERGLYCEMIA NOMOGRAM 0.2-25.9 Units/hr INTRAVENOUS CONTINUOUS ipratropium-albuterol 3 mL nebulizer solution (DUONEB) 3 mL INHALATION q 4 H PRN metroNIDAZOLE 500 mg PREMIX piggyback (FLAGYL) 500 mg INTRAVENOUS q 8 H mupirocin 2% 0.5 g nasal ointment (BACTROBAN) 0.5 g NASAL BID NaCl 0.9% 3-5 mL 3-5 mL INTRAVENOUS q 12 H NaCl 0.9% iv infusion 100 mL/hr INTRAVENOUS CONTINUOUS NORepinephrine 16 mg in D5W 250 mL (LEVOPHED) 0.6-50 mcg/min INTRAVENOUS CONTINUOUS octreotide 500 mcg in D5W 100 mL (SandoSTATIN) 50 mcg/hr INTRAVENOUS CONTINUOUS pantoprazole 40 mg injection (PROTONIX) 40 mg INTRAVENOUS BID AC (0600/1600) propofol infusion (DIPRIVAN) 5-60 mcg/kg/min INTRAVENOUS CONTINUOUS thiamine 200 mg in NaCl 0.9% 50 mL 200 mg INTRAVENOUS q 8 H vasopressin 20 units in D5W 100 mL (VASOSTRICT) 0.03 Units/min INTRAVENOUS CONTINUOUS PAST MEDICAL HISTORY Diagnosis Date - Cirrhosis (HCC) - COPD (chronic obstructive pulmonary disease) (HCC) - Diabetes (HCC) - Hypertension No past surgical history on file. Social History Marital status: Spouse name: Years of education: Number of children: Social History Main Topics Smoking status: Current Every Day Smoker Packs/day: 0.00 Years: 0.00 Alcohol use: Yes Drug use: Yes No family history on file. ALLERGIES Allergen Reactions - Ciprofloxacin Unknown - Penicillin Unknown Objective REVIEW OF SYSTEMS: Unobtainable. PHYSICAL EXAM:Temp (24hrs), Av.7 ?C (99.9 ?F), Min:37.4 ?C (99.3 ?F), Max:38.1 ?C (100.6 ?F) Temp (120hrs), Av.7 ?C (99.9 ?F), Min:37.4 ?C (99.3 ?F), Max:38.1 ?C (100.6 ?F) BP 108/55 Pulse 100 Temp 37.6 ?C (99.7 ?F) (Oral) Resp 30 SpO2 96% Lines: Mcclain 04/14, Nontunnelled triple lumen 04/14 in R neck, ET tube 04/14, NG in L nare 04/14, L radial A-line 04/14 GENERAL APPEARANCE: Patient is critically ill appearing. Sedated. SKIN: No lesions noted. EYES: PERRLA NOSE: Left Nare Ng tube in place. NECK: R nontunnelled triple lumen catheter with no overlying erythema, swelling or warmth. LUNGS: clear to auscultation, no wheezes, or crackles. HEART: Regular rate/rhythm, normal heart sounds, and no murmurs. ABDOMEN: Soft, epigastric tenderness, BS present. EXTREMITIES: Edema of hands b/l, no LE edema. NEURO: Sedated, not following commands. LABS: WBC Date Value 04/15/2018 15.85 k/uL 04/14/2018 22.38 k/uL 04/14/2018 20.86 thou/cmm 04/14/2018 21.54 thou/cmm 03/07/2018 3.17 k/uL Creatinine (mg/dL) Date Value 04/15/2018 2.47 04/14/2018 2.71 04/14/2018 2.66 04/14/2018 2.21 03/07/2018 1.20 Lab Results Component Value Date NEUTP 62.8 03/07/2018 ABSNEUT 1.99 03/07/2018 LYMPHP 28.4 03/07/2018 ABSLYMPH 0.90 03/07/2018 ABSMONO 0.21 03/07/2018 EODINP 1.6 03/07/2018 ABSEOSIN 0.05 03/07/2018 BASOP 0.6 03/07/2018 ABSBASO 0.02 03/07/2018 Lab Results Component Value Date PLT 90 04/15/2018 HB 8.1 04/15/2018 HCT 23.4 04/15/2018 ALB 2.6 04/15/2018 CA 7.9 04/15/2018 TBILI 0.4 04/15/2018 ALKPHOS 47 04/15/2018 AST 44 04/15/2018 GLUC 359 04/15/2018 BUN 74 04/15/2018 NA 136 04/15/2018 K 4.8 04/15/2018 CHLOR 98 04/15/2018 CO2 23 04/15/2018 ANION 15 04/15/2018 ALT 23 04/15/2018 No results found for: WSR, CRP, IGG No results found for: VANCOPRE, VANCORA MICROBIOLOGY: 04/14 Nasal MRSA negative, positive for staphylococcus aureus 04/14 Blood culture x 1 negative to date 04/14 Blood TB screen in process IMAGING: CT Chest WO contrast (04/14) 1. ?Long segment mid-distal esophageal tear extending approximately 5.4 cm in length along the right margin from the levels of T6- T8 vertebral bodies. ?Small amount of enteric contrast extravasation and pneumomediastinum. ?NG/OG tube tip in the upper esophagus. 2. ?Bilateral posterior lower lobe atelectasis/consolidative opacities (right greater than left), possibly related to aspiration and/or bilateral lower lobe pneumonia. ?Trace right pleural effusion. 3. ?Additional findings as described. DATA: Diagnostic Tests Reviewed for Today's Visit: Most recent labs and imaging results. Impression/Recommendations 52 yo M with a h/o cirrhosis, EtoH related, CKD, COPD and reported + PPD in the past. Currently no clinical or imaging evidence of pulmonary TB. DDx: Latent TB Plan: - No evidence of active TB, no need for respiratory isolation - Currently critically ill and latent TB status can be addressed in the outpatient setting vs if transplantation planned. - Will obtain collateral history from family when available. - For Esophageal tear c/b pneumomediastinum continue fluconazole, and metronidazole. Thank you very much for inviting us to participate in the care of this patient. SIGNATURE: Jeniffer Gil MD PATIENT NAME: Lazaro Villafana DATE: April 15, 2018 TIME: 10:11 AM PAGER/CONTACT #: [phone] [facility] STAFF PHYSICIAN NOTE OF PERSONAL INVOLVEMENT IN CARE Events reviewed. Patient examined. Findings as outlined in the resident's note above. Jang elements verified. ? Relevant lab data, microbiology and imaging data reviewed. Relevant images personally reviewed. ? Agree with assessment and plan as outlined in the resident's note above. I was physically present for the critical portions of the service provided by the ID team. The management plan reflects my input. ? Marguerite Li MD Staff, Department of Infectious Disease Pager: [phone] Marguerite Li [phone] [facility] Observed: 04/15/2018 Status: COMPLETED Source: [place] 9:54 AM [facility] REPOSITORY HNO ID: [id number] Author: Michelle Burks RN Service: (none) Author Type: (none) Type: Allied Health Filed: 04/15/2018 9:57 AM Note Text: INFECTION PREVENTION NOTE Admission Date: 04/14/2018 Patient does not meet criteria for Airborne Precautions. Precautions not required for history of positive PPD. SIGNATURE: Michelle Burks RN PATIENT NAME: Lazaro Villafana DATE: April 15, 2018 TIME: 9:54 AM PAGER/CONTACT #: [phone] Infection Prevention after hours/weekend pager: [phone] NURSING PROG Observed: 04/15/2018 Status: COMPLETED Source: [place] 9:07 AM [facility] REPOSITORY HNO ID: [id number] Author: Jose GhoshRn) Micheles, RN Service: (none) Author Type: Registered Nurse Type: Nursing Progress Note Filed: 04/15/2018 9:07 AM Note Text: Nursing Progress: Topic: RESTRAINT NON-VIOLENT PATIENT NAME: Lazaro Villafana PATIENT LOCATION: [place] [address] The patient demonstrates Attempting to Remove Medical Devices Vital to Medical Stability, Confusion, Lack of Understanding/Ability to Comply with Safety Directions, Impulsive Behavior, Inability to be Redirected, Inability to Retain Information Regarding Safety Directions as evidenced by the following behaviors Reaching for lines and ETT which pose an imminent danger to self or others. The following interventions were attempted but were not effective in protecting the patient's safety: Contraindicated - Imminent Safety Risk Next, a comprehensive assessment was performed and warranted placing the patient in Soft Bilateral Wrists, the least restrictive restraint needed to protect the patient's safety. Ongoing safety assessments and evaluation for earliest removal of restraints will be performed. DATE: April 15, 2018 TIME: 9:07 AM Jose Rodriguez RN CONSULT PROG Observed: 04/15/2018 Status: COMPLETED Source: [place] 9:03 AM [facility] REPOSITORY HNO ID: [id number] Author: Manjula Sunshine (Pharmacist) Service: Pharmacy Author Type: Pharmacist Type: Consult Progress Note Filed: 04/15/2018 9:04 AM Note Text: PHARMACY VANCOMYCIN DOSING NOTE Patient Name: Lazaro Villafana Admission Date: 04/14/2018 Date of Consult: 04/15/2018 Time of Consult: 9:03 AM Indication: Source Unknown; empiric Goal Range: 15-25 mcg/mL RECOMMENDATIONS/PLAN: Pharmacy consulted for vancomycin dosing for Lazaro Villafana, a 52 year old, male who is being treated with vancomycin for empiric therapy 1. The primary service has discontinued vancomycin therapy. Pharmacy vancomycin dosing service will sign off. Thank you for allowing us to participate in this patient's care. Please contact pharmacy if questions. MANJULA SUNSHINE, PHARMACIST [phone] PROGRESS Observed: 04/15/2018 Status: COMPLETED Source: [place] 8:49 AM [facility] REPOSITORY HNO ID: [id number] Author: Roberto Cooley Service: Anesthesiology Author Type: Physician Type: Progress Notes Filed: 04/15/2018 12:50 PM Note Text: SURGICAL INTENSIVE CARE UNIT PROGRESS NOTE SERVICE DATE: April 15, 2018 SERVICE TIME: 8:50 AM Subjective MAJOR ISSUES: 04/14 Hematemesis s/p EGD at OSH c/b esophageal laceration vs perforation vs esophageal variceal bleeding admitted from OSH for surgical evaluation and hemodynamic monitoring. Objective VITAL SIGNS Temp: 37.6 ?C (99.7 ?F) Pulse: 96 Arterial BP 1: 105/53 MAP Invasive (Mean Arterial Pressure) 1: 67 Resp: 25 SpO2: 95 % Not applicable Current Facility-Administered Medications: albuterol 2.5 mg/0.5 mL 2.5 mg nebulizer solution (PROVENTIL) 2.5 mg INHALATION q 4 H PRN cefepime 2 g in D5W 100 mL MB+ (MAXIPIME) 2 g INTRAVENOUS q 12 H Chlorhexidine Gluconate 0.12 % 15 mL (PERIDEX) 15 mL ORAL QID dextrose 40 % 15 g 15 g ORAL PRN Or glucagon 1 mg injection (GLUCAGEN) 1 mg INTRAMUSCULAR PRN Or dextrose 50 % 12.5 g injection 12.5 g INTRAVENOUS PRN enteric contrast (radiology procedure) ORAL DIRECTED PRN fentaNYL 50 mcg/mL 25-50 mcg injection (SUBLIMAZE) 25-50 mcg INTRAVENOUS q 1 H PRN fluconazole 200 mg in NaCl (iso-osmotic) 100 mL (DIFLUCAN) 200 mg INTRAVENOUS DAILY insulin regular iv infusion 250 units in NaCl 0.9% 250 mL - ADULT DKA/HYPERGLYCEMIA NOMOGRAM 0.2-25.9 Units/hr INTRAVENOUS CONTINUOUS ipratropium-albuterol 3 mL nebulizer solution (DUONEB) 3 mL INHALATION q 4 H PRN lactated ringers 500 mL iv bolus 500 mL INTRAVENOUS ONCE LORazepam 1 mg injection (ATIVAN) 1 mg INTRAVENOUS q 2 H PRN LORazepam 2 mg injection (ATIVAN) 2 mg INTRAVENOUS q 2 H PRN LORazepam 2 mg injection (ATIVAN) 2 mg INTRAVENOUS q 1 H PRN metroNIDAZOLE 500 mg PREMIX piggyback (FLAGYL) 500 mg INTRAVENOUS q 8 H mupirocin 2% 0.5 g nasal ointment (BACTROBAN) 0.5 g NASAL BID NaCl 0.9% 3-5 mL 3-5 mL INTRAVENOUS q 12 H NaCl 0.9% iv infusion 100 mL/hr INTRAVENOUS CONTINUOUS NORepinephrine 16 mg in D5W 250 mL (LEVOPHED) 0.6-50 mcg/min INTRAVENOUS CONTINUOUS octreotide 500 mcg in D5W 100 mL (SandoSTATIN) 50 mcg/hr INTRAVENOUS CONTINUOUS pantoprazole 40 mg injection (PROTONIX) 40 mg INTRAVENOUS BID AC (0600/1600) propofol infusion (DIPRIVAN) 5-60 mcg/kg/min INTRAVENOUS CONTINUOUS thiamine 200 mg in NaCl 0.9% 50 mL 200 mg INTRAVENOUS q 8 H vancomycin dosing and monitoring per pharmacy OTHER As Directed vasopressin 20 units in D5W 100 mL (VASOSTRICT) 0.03 Units/min INTRAVENOUS CONTINUOUS Intake/Output Summary (Last 24 hours) at 04/15/18 0849 Last data filed at 04/15/18 0700 Gross per 24 hour Intake 5338.5 ml Output 735 ml Net 4603.5 ml Current Weight: Admission Weight: PHYSICAL EXAM Neuro: Sedated Cardiovascular: Regular rhythm Respiratory Clear to auscultation. Breath Sounds Equal: Yes Mechanical Ventilation: Vent Mode: PC CMV Freq (bpm): 16 PS (cmH20): 5 PEEP / CPAP (cmH20): 8 FIO2 (%): 40 Recent Labs 04/15/18 0609 04/15/18 0127 PH 7.39 7.36 PO2 152* 83* PCO2 42 45 BE 1 0 HCO3 25 25 LACT 3.1* 3.7* Abdomen: Soft and Nontender Extremities: no edema Skin: intact INFUSION(S): ocreotide, norepinephrine, propofol, insulin, vasopressin Patient Lines Assessed: A-Line: Site: Left radial, Day #: 1, Rewired: No, Fresh stick: Yes Central Line: Site: Right internal jugular , Day #: 1, Rewired: No, Fresh stick: Yes Diagnostic tests reviewed for today's visit: Most recent labs and imaging results. Assessment/Plan Mr. 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 Patient initially presented with hematemesis and melena with accompanying dizziness and shortness of breath. Now being admitted to the SICU for surgical evaluation and hemodynamic monitoring. ? Neuro: hx of heavy EtOH use, last drink on 04/13 -- tachypnea requiring intubation at OSH --Sedation with propofol. Will switch to dexmedetomidine for history of heavy EtOH use. -- will talk with family to get better history of EtOH use --thiamine and folic acid CV: Currently on levophed and vasopressin --Wean pressors as tolerated for MAPs >65 ? Pulm: Hx of COPD. Intubated. Vent Mode: PC CMV Freq (bpm): 16 PS (cmH20): 5 PEEP / CPAP (cmH20): 8 FIO2 (%): 40 --Continue home bronchodilators --BPH, duonebs prn ? Renal: LIANE with Cr 2.47 (baseline ~1.2 from 02/2018) --Monitor Cr and I/Os --Mcclain ? GI: Likely partial thickness esophageal perforation. Presented from OSH on 04/14 with hematemesis, melena dizziness and SOB. EtOH cirrhosis with portal HTN, grade 2 esophageal varices -- EGD at OSH showed no mediastinal air -- 04/15 CT chest/abd/pel - mid distal esophageal tear 5.4cm from T6-T8. Small amount of enteric contrast extravasation and pneumomediastinum. NG/OG - GI will perform EGD with esophageal stent this afternoon --Pantoprazole for GI ppx --Octreotide gtt for GI bleed --strict NPO --NGT placed at OSH during EGD - DO NOT MANIPULATE BLINDLY -- thoracic does not recommend open surgical intervention but does rec endoscopy by GI. Perforation appears to be contained. Likely iatrogenic tear from the tube placement. ? Heme: Transfused 4 pRBC, 2 FFP and 1 platelets prior to transfer at OSH -- Hgb 8.1. -- platelets 90 --Transfuse to keep Hgb >7 ? Fluid/Electrolyte/Nutrition: --NPO --Replete lytes per SICU protocol ? Endo: Hx of IDDM, HgbA1c 8.2. - glucose 611 at OSH, 445 on admission --Continue insulin gtt ? ID: Esohageal perf. WBC 15.85, lactate 8.4 on admission, now 7.7. Febrile overnight, Tmax 38.1 Cultures/labs: - 04/14 blood culture - NGTD - 04/14 TB blood screen - in process - 04/14 procalcitonin 2.67 - aztreonam and flagyl at OSH - empiric coverage with cefepime, fluconazole, flagyl - vancomycin stopped this AM - NRSA nares neg - consult to ID Medication and Non-Pharmacologic VTE Prophylaxis/Anticoagulants 04/14/182099 pneumatic compression stockings ([place]) 04/14/182099 activity - mobilize patient ([place] VTE Prophylaxis: VTE prophylaxis appropriate SIGNATURE: Jen Gorman MD, PGY-3 resident PATIENT NAME: Lazaro Villafana DATE: April 15, 2018 TIME: 8:49 AM PAGER/CONTACT #: [phone] SICU STAFF PHYSICIAN NOTE OF PERSONAL INVOLVEMENT IN CARE I have reviewed the progress note obtained and documented by the resident and I personally participated in the jang components as documented above regarding the following problems or issues and made appropriate changes below. Upon my evaluation, this patient had a high probability of imminent or life-threatening deterioration, which required my direct attention, intervention, personal management and decision making. These issues or problems included: Close monitoring of the following has been required: respiratory status, cardiac status, acute GI bleeding and mediastinal infection ASSESSMENTANDPLAN: Esophageal perforation Mediastinitis Septic shock Leukocytosis Tachycardia Hypotension LIANE Hypoalbuminemia Acute blood loss anemia GI Bleeding Thrombocytopenia Pt was transferred in from outside hospital with an esophageal perf., that appears to show air in the mediastinum and possible extravasation of contrast as well. GI is to do an EGD with possible intervention with a stent. Pt is currently in shock secondary to the infection with broad spectrum ABX and anti-fungal, hx of MRSA in nares as well. On vasopressin and levophed with a current lactate of 3.1 on last ABG, after multiple boluses. Vent with mild-mod amount of support with good ventilation and oxygenation on current settings. Slight improvement in LIANE, will continue to support. DISPOSITION: SICU I devoted my full attention to the direct care of this patient for the amount of time indicated below, time includes review of laboratory data, radiology results, discussion with consultants, and monitoring for potential decompensation. Time I spent with family or surrogate(s) is included only if the patient was incapable of providing the necessary information or participating in medical decision making. Time devoted to teaching and to any procedures I billed separately is not included. Time spent providing critical care services: 45 minutes. SIGNATURE: Hilda Cooley M.D. DATE: April 15, 2018 12:42 PM CASE MGT INIT Observed: 04/15/2018 Status: COMPLETED [facility] REPOSIT[facility] ID: [id number] Author: Rai Kramer RN Service: Care Management Author Type: Registered Nurse Type: Care Mgt Initial Assessment Filed: 04/15/2018 7:17 AM Note Text: CARE MANAGEMENT: ASSESSMENT AND DISCHARGE PLAN SERVICE DATE: 04/15/2018 SERVICE TIME: 7:12 AM 52-year-old male with PMHx type II DM, poorly controlled HTN, CKD, COPD, tobacco smoker 2-3 PPD, alcohol use disorder with recent diagnosis of cirrhosis was transferred from OSH with an esophageal perforation seen on EGD. Patient initially presented with hematemesis and melena with accompanying dizziness and shortness of breath. Now being admitted to the SICU for surgical evaluation and hemodynamic monitoring. Currently remains intubated and sedated on Levo, Vaso, Insulin, Octreotide. Assessment done by review for EMR. Lives independently with . 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 She states his last drink was 04/13 and had 2 24oz Ales. Laser Specialist to follow for discharge planning pending POC and medical stability. PRIMARY CARE PHYSICIAN: Jorge De Santiago MD ADMISSION STATUS: Inpatient Needs Prior to Discharge: To Be Determined MEDICAL: Patient/Communications And Signals Supervisor Stated Goals: Unable to asses Health Insurance: Ubitricity PPO Health Issues Impacting Discharge Plan: Chronic DM, poorly controlled HTN, CKD, COPD, tobacco smoker 2-3 PPD, alcohol use and GIB Last Admission Date: Previous admit date: 04/14/2018 Is this Within the Past 30 days? No Advance Directive: Current Advance Directive: None Audiovisual Aids Technician Attempted to Assist with AD Completion: No Unable to Assist Due To:: Sedation Health Literacy Assessment: Patient is unable to complete at this time due to intubation. FUNCTIONAL AND COGNITIVE/BEHAVIORAL PRIOR TO ADMISSION ASSESSMENT: Unable to complete assessment at this time due to intubation Has the Patient Been in a [facility] Facility in the Past 30 days? No SOCIAL: Living Arrangement: Home Lives With: Spouse Financial Resources: N/A Primary Contact: Extended Emergency Contact Information Primary Emergency Contact: Sushila Villafana Address: [address] [place] [id number] Relation: Spouse Supportive: Yes Other Important Patient Contacts: None Caregiver Assessment: Caregiver is ready, willing and able to meet the patient's needs as recommended by the inter-professional team? Needs unknown Patient's transition needs and plan for meeting these needs: tbd Does the patient have an acute stroke diagnosis, or has the patient had a stroke during this admission? No Medicaiton Adherence: Patient is unable to complete at this time due to intubation. Are you interested in bedside delivery of your medications? Yes Food Concerns: In the Last Month, Have You had Trouble Getting Food? Unable to assess During the Last Month, Have You Worried Whether Your Food Would Run Out Before You Had Enough Money to Buy More? Unable to assess Is the Patient Psychosocially Complex? No ASSESSMENT AND PLAN: Medical Needs: 2 or more chronic diseases Psychosocial Needs: None FREEDOM OF CHOICE EXPLAINED: N/A POTENTIAL TRANSITION PLANS To Be Determined SIGNATURE: Rai Kramer RN PATIENT NAME: Lazaro Villafana DATE: April 15, 2018 TIME: 7:12 AM PAGER/CONTACT #: [phone] NURSING PROG Observed: 04/15/2018 Status: COMPLETED Source: [place] 6:47 AM [facility] REPOSITORY HNO ID: [id number] Author: nAtonina (Rn) BLAYNE Diaz Service: Nursing Author Type: Registered Nurse Type: Nursing Progress Note Filed: 04/15/2018 7:15 AM Note Text: Nursing Progress Note Topic of Note: Daily Note Lazaro Villafana [id number] Admitted to G53-04 with ETT, NG, levo, prop, insulin, TB precautions for 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 Not following commands, PERRL, Tachycardic, hypotensive, ABG sent A line placed, R IJ triple placed, DKA insulin protocol begun Blood cultures x1 sent Vaso 0.03 hung NG noted to be coiled in mouth, primary at bedside NG removed by primary, new NG inserted by Dr Bennett 25 at the nares. CXR ordered and okay by primary to give CT contrast. 20cc contrast pushed, pt began coughing/gagging, SICU at beside for bronch NG noted NOT to be in trachea, okay to resume contrast Contrast given, transport at bedside for CT imaging Thoracic at bedside for consult, recommend GI for EGD CIWA protocol begun, 1mg ativan given Alcohol/EToH GGT blood and urine tox screen sent Scant melena stool Gastroenterology at bedside for consult This note was completed by: Antonina Diaz, BLAYNE GASA + ALL Collected: 04/15/2018 Status: F Source: [place] FOR 6:09 AM [facility] RADIANCE USE ONLY REPOSITORY TYPE CODE TESTS RESULT OUT OF REFERENCE UNITS RANGE LAB PH 7.35-7.45 pH 7.39 LAB PCO2 34-46 mm Hg pCO2 42 LAB PO2 85-95 mm Hg pO2 152 High LAB BE mmol/L Base Excess 1 LAB HCO3 22-26 mmol/L Bicarbonate 25 LAB CO2CT 22.0-28.0 mmol/L CO2 Content 26 LAB O2HB 95-98 % 97 Oxyhemoglobin, Art. LAB COHB 0-5.0 % 1.3 Carboxyhemoglobin ,Art LAB MHGB 0.4-1.5 % 1.2 Methemoglobin LAB TEMP C 37.0 Temperature, Body LAB PHTC 7.35-7.45 pH, Temp 7.39 Corrected LAB PCO2T 34-46 mm Hg pCO2, Temp 42 Correct LAB PO2T mm Hg pO2, Temp 152 Corrected LAB NAB 135-146 mmol/L 136 Sodium,Whole Bld LAB KWB 3.5-5.0 mmol/L Potassium, 4.4 Whole Bld LAB HGBB 13.0-17.0 g/dL 7.7 Low Hemoglobin,Total, ACL LAB HCTB 39.0-51.0 % Hematocrit, 24 Low ACL LAB IC 1.08-1.30 mmol/L Calcium, 1.08 Ion, WB LAB GLB 60-105 mg/dL 281 High Glucose,Whole Bld LAB LACT 0.5-2.2 mmol/L Lactate 3.1 High LAB ABGCOM Blood Gas O2 Comm, Art Administration Result Comment: 40% Performed By: #### ALLBG #### [facility] [place] [address] GGT Collected: 04/15/2018 Status: F Source: [place] 6:03 AM [facility] REPOSITORY TYPE CODE TESTS RESULT OUT OF RANGE REFERENCE UNITS LAB GGT 10-70 U/L GGT 61 Performed By: #### GGT #### [facility] [address] [place] [address] #### BALCO #### [facility] [address] [place] [address] [phone] ALCOHOL, BLOOD CONF. Collected: 04/15/2018 Status: F Source: [place] 6:03 AM [facility] REPOSITORY TYPE CODE TESTS RESULT OUT OF REFERENCE UNITS RANGE LAB BALCO mg/dL Alcohol, <5 Blood Conf. Result Comment: (NOTE) THERAPEUTIC RANGE: Ethanol, Serum or Plasma, Medical Reference Interval: No normal range is established. Limit of detection varies based on instrumentation. Therapeutic range: Therapy for methanol toxicity: 100-200 mg/dL Toxic: greater than 250 mg/dL Toxic concentrations may cause inebriation, DELIVERY RECRUITER depression, respiratory depression, mental and motor impairment and liver damage. In children, ethanol ingestion may cause hypoglycemia. See Compliance Statement B: [employer] Performed by [facility], [address] [place] [address] [email or web address], Tano Perez MD, Lab. Director Performed By: #### GGT #### [facility] [address] [place], [place] [address] #### BALCO #### [facility] [address] [place] [address] [phone] TOXICOLOGY SCREEN,UR Collected: 04/15/2018 Status: F Source: [place] 6:02 AM [facility] REPOSITORY TYPE CODE TESTS RESULT OUT OF REFERENCE UNITS RANGE LAB UPCP2 Negative Negative Phencyclidin e, Urine Result Comment: Cutoff threshold at 25 ng/mL. LAB UBENZ2 Negative Benzodiazepines, Ur Abnormal Preliminary Alert positive. Result Comment: Cutoff threshold at 200 ng/mL. LAB UCOC2 Negative Abnormal Preliminary Alert Cocaine, Urine positive. Result Comment: Cutoff threshold at 300 ng/mL. LAB UAMPH2 Negative Amphetamines, Urine Negative Result Comment: Cutoff threshold at 1000 ng/mL. LAB UTHC2 Negative Cannabinoids, Abnormal Urine Preliminary Alert positive. Result Comment: Cutoff threshold at 50 ng/mL. LAB UOPI2 Negative Opiates, Negative Urine Result Comment: Cutoff threshold at 300 ng/mL. LAB UBARB2 Negative Barbiturates, Urine Negative Result Comment: Cutoff threshold at 200 ng/mL. LAB UETOH <11 mg/dL <11 Ethanol, Urine LAB UOXYC Negative Oxycodone, Negative Urine Result Comment: Cutoff threshold at 100 ng/mL. Comment: Immunoassay screen only. Cross reactivity with other substances can occur with immunoassay screening. Detection of any drug(s) in this urine toxicology panel is presumptive only. These tests are for med ical purposes only and should not be used for compliance monitoring, legal, or forensic use. Samples should be within normal physiological conditions (e.g. pH). This assay does not include adulteration/specimen validity testing. In clinical settings, confirmatory testing is at the practitioner's discretion [1]. If clinically indicated, confirmation by high specificity, quantitative methodology, which includes adulteration/spec imen validity testing, may be requested on the same specimen through Client Services ([phone]) if contacted within 48 hours of initial testing. [1]Substance Abuse and Mental Health Services Administration (2012). Clinical Drug Testing in Primary Care Technical Assistance Publication Series 32. Department of Health and Human Services, [place], p.10. These tests were developed and their performance characteristics determined by [facility]'s [facility] [place] ( [facility]). They have not been cleared or a pproved by the FDA. [facility] is regulated under CLIA as qualified to perform high complexity testing. These tests are used for clinical purposes. They should not be regarded as investigational or for research. Performed By: #### UTOX2 #### [facility] [address] [place], [place] [address] CONSULT Observed: 04/15/2018 Status: COMPLETED Source: [place] 5:57 AM [facility] REPOSITORY HNO ID: [id number] Author: Dakotah Rodriges (Fel) Service: Gastroenterology Author Type: Physician Type: Consults Filed: 04/15/2018 6:40 AM Note Text: Department of Gastroenterology AND Hepatology Initial Consult Note Date of Service: April 15, 2018 Patient: Lazaro Villafana Medical Record: [id number] Reason for Admission / Consultation: Opinion/Advice regarding esophageal tear Gastroenterology Attending: Clarence Rajan MD Impression: Lazaro Villafana is a 52 year old gentleman with history notable for presumed EtOH related cirrhosis with risk factors for BOONE with disease course c/b portal HTN (EV) who is now transferred from [facility] by way of [place] ED where he presented with complaint of several day history of nausea, vomiting, melena, and hematemesis prompting tony tube placement at that time (unsure if gastric vs. Gastric and esophageal balloon inflated) subsequently transferred to [place] where he underwent EGD revealing Grade II non bleeding EV and a long 7 cm laceration (31-38 cm from the incisors) with GE junction documented to be at 45 cm. Mr. Villafana is currently without evidence of ongoing gastrointestinal bleeding (passing melenic stool expected) with decreasing pressor requirements since admission and minimal vent settings (FiO2: 40% PEEP 8) consistent with a resolving esophageal tear without active extravasation v. Pneumothorax related to esophageal rupture. Etiology of tear likely related to placement of Tony tube as the visualized laceration on endoscopy was 7 cm proximal to the documented GE junction. Recommendation: --- Strict NPO --- Continue pantoprazole 40 mg IV BID --- Octreotide Gtt --- Agree with broad antimicrobials --- Trend hemoglobin Q8 hours --- Transfuse blood products to maintain Hb > 7, Plt > 50, INR < 1.5 --- Continue to monitor for recurrent overt GIB. --- Ongoing supportive care per primary SICU team. Will discuss timing of non emergent EGD with GI ICU staff and role of hemostatic clip (TTS or OTSC) in closing the mucosal defect vs. Proceeding with endoluminal stent. Gastroenterology consult service will continue to follow DO Sarah Beckett Gastroenterology AND Hepatology Fellow Will discuss with staff. History of Present Illness: Lazaro Villafana is a 52 year old gentleman with history notable for presumed EtOH related cirrhosis with risk factors for BOONE with disease course c/b portal HTN (EV) who is now transferred from [facility] by way of [place] ED where he presented with complaint of several day history of nausea, vomiting, melena, and hematemesis prompting tony tube placement at that time (unsure if gastric vs. Gastric and esophageal balloon inflated) subsequently transferred to [place] where he underwent EGD revealing Grade II non bleeding EV and a long 7 cm laceration (31-38 cm from the incisors) with GE junction documented to be at 45 cm. Mr. Villafana has an additional history significant for - Non insulin dependent Diabetes Mellitus - Hypertension - Chronic Kidney Disease - Chronic obstructive pulmonary disease - EtOH abuse disorder Patient initially presented to [place] ED (04/14/18) with chief complaint of hematemesis and melena following several days of nausea and vomiting (per bedside nurse). Hemoglobin was found to be 8.9 at that time, down from known 11.4 on 03/07/18. A anahi more tube was placed in the [facility] ED and transferred to [facility]. Upon arrival to [facility] patient received 2 U FFP, 2 U PRBC, CXR was without pneumomediastinum. Tony was removed and patient underwent upper endoscopy. Patient was intubated on pressor support prior to transfer. EGD (04/14/18): 4:20 PM - GE junction at 45 cm - Grade II Esophageal varices, 2 columns not actively bleeding - Laceration with adherent clot from 31 - 38 cm from incisors. Transferred to [facility] SICU at that time Has since undergone cross sectional imaging CT C/A: Long segment mid distal esophageal tear approximately 5.4 cm in length (T6-T8 level) - Small amount of enteric contrast extravasation and pneumomediastinum. Has been seen by thoracic surgery (Dr. Soto) who believe there eis a partial thickness esophageal tear without active extravasation into pleura or mediastinum. Without pneumomediastinum, pneumatosis of esophagus or free air. Pertinent Review of Systems: Unable to obtain Past Medical History: As outlined in HPI Past Surgical History: No past surgical history on file. Family History: No family history on file. Social History: Social History Marital status: Spouse name: Years of education: Number of children: Social History Main Topics Smoking status: Current Every Day Smoker Packs/day: 0.00 Years: 0.00 Alcohol use: Yes Drug use: Yes Allergies: ALLERGIES Allergen Reactions - Ciprofloxacin Unknown - Penicillin Unknown Medications: Prior to Admission Medications: aztreonam (AZACTAM) 1 g in D5W 100 mL Inject 100 mL intravenously every 8 hours. metroNIDAZOLE (FLAGYL) 500 mg/100 mL Inject 100 mL intravenously every 8 hours. NORepinephrine (LEVOPHED) 16 mg in D5W 250 mL Inject 0.6-30 mcg/min intravenously continuous. octreotide 500 mcg in D5W 100 mL Inject 50 mcg/hr intravenously continuous. pantoprazole (PROTONIX) 40 mg injection Inject 10 mL intravenously twice daily. propofol infusion (DIPRIVAN) 10 mg/mL injection Inject 0.485- 5.82 mg/min intravenously continuous. Current hospital medications: albumin (5%) 25 g infusion 25 g INTRAVENOUS ONCE albuterol 2.5 mg/0.5 mL 2.5 mg nebulizer solution (PROVENTIL) 2.5 mg INHALATION q 4 H PRN cefepime 2 g in D5W 100 mL MB+ (MAXIPIME) 2 g INTRAVENOUS q 12 H Chlorhexidine Gluconate 0.12 % 15 mL (PERIDEX) 15 mL ORAL QID dextrose 40 % 15 g 15 g ORAL PRN dextrose 50 % 12.5 g injection 12.5 g INTRAVENOUS PRN enteric contrast (radiology procedure) ORAL DIRECTED PRN fentaNYL 50 mcg/mL 25-50 mcg injection (SUBLIMAZE) 25-50 mcg INTRAVENOUS q 1 H PRN fluconazole 200 mg in NaCl (iso-osmotic) 100 mL (DIFLUCAN) 200 mg INTRAVENOUS DAILY glucagon 1 mg injection (GLUCAGEN) 1 mg INTRAMUSCULAR PRN insulin regular iv infusion 250 units in NaCl 0.9% 250 mL - ADULT DKA/HYPERGLYCEMIA NOMOGRAM 0.2-25.9 Units/hr INTRAVENOUS CONTINUOUS ipratropium-albuterol 3 mL nebulizer solution (DUONEB) 3 mL INHALATION q 4 H PRN lactated ringers 500 mL iv bolus 500 mL INTRAVENOUS ONCE lactated ringers 500 mL iv bolus 500 mL INTRAVENOUS ONCE LORazepam 1 mg injection (ATIVAN) 1 mg INTRAVENOUS q 2 H PRN LORazepam 2 mg injection (ATIVAN) 2 mg INTRAVENOUS q 2 H PRN LORazepam 2 mg injection (ATIVAN) 2 mg INTRAVENOUS q 1 H PRN metroNIDAZOLE 500 mg PREMIX piggyback (FLAGYL) 500 mg INTRAVENOUS q 8 H NaCl 0.9% 3-5 mL 3-5 mL INTRAVENOUS q 12 H NaCl 0.9% iv infusion 100 mL/hr INTRAVENOUS CONTINUOUS NORepinephrine 16 mg in D5W 250 mL (LEVOPHED) 0.6-50 mcg/min INTRAVENOUS CONTINUOUS octreotide 500 mcg in D5W 100 mL (SandoSTATIN) 50 mcg/hr INTRAVENOUS CONTINUOUS pantoprazole 40 mg injection (PROTONIX) 40 mg INTRAVENOUS BID AC (0600/1600) propofol infusion (DIPRIVAN) 5-60 mcg/kg/min INTRAVENOUS CONTINUOUS thiamine 200 mg in NaCl 0.9% 50 mL 200 mg INTRAVENOUS q 8 H vancomycin dosing and monitoring per pharmacy OTHER As Directed vasopressin 20 units in D5W 100 mL (VASOSTRICT) 0.03 Units/min INTRAVENOUS CONTINUOUS Physical Exam: Vital Signs 04/15/18 0500 04/15/18 0515 04/15/18 0530 04/15/18 0545 BP: Pulse: 92 100 98 95 Resp: 23 24 26 25 Temp: TempSrc: SpO2: 96% 93% 92% 94% Intake/Output Summary (Last 24 hours) at 04/15/18 0557 Last data filed at 04/15/18 0500 Gross per 24 hour Intake 3000 ml Output 580 ml Net 2420 ml VITAL SIGNS: BP 113/59 Pulse 95 Temp (Src) 100.6 (Oral) Resp 25 SpO2 94% General appearance: Intubated, sedated Skin: + blanching spider angiomata across chest HEENT: Anicteric Lungs: Coarse central bronchial breath sounds Heart: RRR without murmur Abdomen: Soft, no grimace to palpation, without appreciable hepatomegaly, dullness in traube's space to suggest splenomegaly Extremities: Without edema Neuro:Without down beating clonus on foot dorsiflexion to suggest HE Labs: CBC, Coags, BMP, Mg, Phos Recent Labs 04/15/18 0609 04/15/18 0500 04/15/18 0345 04/15/18 0127 04/14/18 2206 04/14/18 2120 04/14/18 1700 WBC -- -- 15.85* -- -- 22.38* 20.86* HB -- -- 8.1* -- -- 8.9* 8.0* HCT -- -- 23.4* -- -- 26.0* 25.0* PLT -- -- 90* -- -- 117* 102* INR -- 1.3 Unable to assay. Specimen improperly collected/handled. -- -- 1.3 1.35* APTT -- -- Unable to assay. Specimen improperly collected/handled. -- -- -- -- NA -- -- 136 -- -- 140 136 K -- -- 4.8 -- -- 5.0 6.6* CHLOR -- -- 98 -- -- 100 102 CO2 -- -- 23 -- -- 24 22 BUN -- -- 74* -- -- 76* 73* CREAT -- -- 2.47* -- -- 2.71* 2.66* GLUC -- -- 359* -- -- 445* 545* IC 1.08 -- -- 1.12 1.05* -- -- CA -- -- 7.9* -- -- 7.1* 7.0* MG -- -- 1.7 -- -- 1.3* -- P -- -- 2.9 -- -- 4.7 -- Liver Function, Amylase, AND Lipase Recent Labs 04/15/18 0609 04/15/18 0345 04/15/18 0127 04/14/18 2206 04/14/18 2120 04/14/18 1700 TPROT -- 5.2* -- -- 4.9* 5.1* ALB -- 2.6* -- -- 2.4* 2.2* ALT -- 23 -- -- 23 27 AST -- 44* -- -- 36 28 ALKPHOS -- 47 -- -- 50 64 TBILI -- 0.4 -- -- 0.7 0.7 LACT 3.1* -- 3.7* 5.3* -- 8.4* SIGNATURE: Dakotah Rodriges DO PATIENT NAME: Lazaro Villafana DATE: April 15, 2018 TIME: 5:57 AM PAGER/CONTACT #: [id number] PROTIME Collected: 04/15/2018 Status: F Source: [place] 5:00 AM [facility] REPOSITORY TYPE CODE TESTS RESULT OUT OF RANGE REFERENCE UNITS LAB PSEC 9.7-13.0 sec High PT Sec 13.1 LAB INR 0.9-1.3 PT INR 1.3 Result Comment: Vitamin K Antagonist (VKA) Therapeutic Range: INR 2 to 3 (Target INR of 2.5) Note: For patients treated with VKA drugs, such as warfarin, the [place] [employer] 2012 Guideline recommends a therapeutic INR range of 2 to 3 (target INR of 2.5). This recommendation includes high-risk patients with antiphospholipid syndrome with previous arterial or venous thromboembolism, current-generation mechanical or bioprosthetic aortic heart valve replacement. Note: Patients with mechanical aortic valve replacement and additional risk factors for thromboembolic events (atrial fibrillation, previous thromboembolism, LV dysfunction, hypercoagulable conditions) or an older generation mechanical AVR (i.e., ball in-Cage) or any mechanical MVR should have a INR therapeutic range of 2.5 to 3.5 (target INR of 3). Serjio GH, et al. Chest 2012, 141:7S-47S Rashida VAZQUEZ, et al. [facility] 2017, 70: 252-289 Performed By: #### PT #### [facility] [address] [place], [place] [address] PROGRESS Observed: 04/15/2018 Status: COMPLETED Source: [place] 4:14 AM [facility] REPOSITORY HNO ID: [id number] Author: Orlando Gamboa Service: (none) Author Type: (none) Type: Progress Notes Filed: 04/15/2018 4:15 AM Note Text: RADIOLOGY SERVICE PROGRESS NOTE DATE OF SERVICE: April 15, 2018 TIME OF SERVICE: 4:00 am EVENT: EXAM/PROCEDURE NOT COMPLETED - NURSING UNIT CANCELED MORING CXR HAD ONE AT 2330 HRS ADDITIONAL DATA: N/A SIGNATURE: Orlando L Cooper PATIENT NAME: Lazaro Villafana DATE: April 15, 2018 TIME: 4:14 AM PAGER/CONTACT #: PLAN OF CARE Observed: 04/15/2018 Status: COMPLETED Source: [place] 3:54 AM [facility] REPOSITORY HNO ID: [id number] Author: Elliot Soto Service: Thoracic Surgery Author Type: Physician Type: Plan of Care Filed: 04/15/2018 4:16 AM Note Text: Thoracic Surgery Staff Brief Note Patient discussed with director of early childhood education resident. Previously discussed with [place] [facility] to transfer to [facility]. Briefly, 52 yr M with history of multiple medical issues including cirrhosis with esophageal varices , CKD, DM2, HTN who presented to [place] with massive hematemesis of unclear etiology. Patient emergently intubated and Tony tube placed prior to transfer to [facility]. At [place] after resuscitation, Tony tube carefully removed and linear tear of esophageal mucosa noted without active bleeding. Patient underwent at least 2 EGDs at [place] with grade 2 esophageal varices confirmed (see note from Dr. Clarence Jensen) not bleeding at that time. A linear mucosal tear/laceration was noted from 31-37 cm from incisors with ddx including iatrogenic injury (Tony tube) vs. Boerhaave syndrome. On review of [place] CXR: patient without pneumomediastinum or significant pleural effusion. Plan for transfer to MICU/SICU for evaluation and advanced endoscopy by interventional GI given possible need for mucosal clipping, variceal banding or other hemostatic interventions. CT scan from [facility] obtained with PO and IV contrast. On my review, there is evidence of a partial thickness esophageal tear without active extravasation into pleura or mediastinum. No pneumomediastinum, pneumatosis of esophagus or free air. Bilateral basilar atelectasis without significant pleural effusions. Impression 52 yr M with cirrhosis and sequela including esophageal varices with hematemesis of unclear etiology s/p emergent Tony esophageal occlusion tube placement later on EGD found to have linear, partial thickness esophageal laceration from 31-37 cm from incisors. CT scan shows partial thickness esophageal tear but without active mediastinal or pleural extravasation. There is esophageal pneumatosis, pneumomediastinum or significant pleural effusion to suggest full thickness esophageal perforation. -would not recommend open surgical intervention on partial thickness, esophageal tear in cirrhotic based on current clinical information -recommend evaluation by interventional GI for endoscopy -will remain involved closely involved in the event that further information points to full thickness esophageal injury that would require open surgical intervention by Thoracic surgery. Elliot Soto MD April 15, 2018 4:15 AM PROTIME Collected: 04/15/2018 Status: F Source: [place] 3:45 AM [facility] REPOSITORY TYPE CODE TESTS RESULT OUT OF REFERENCE UNITS RANGE LAB PSEC 9.7-13.0 sec Unable PT to assay. Sec Specimen improperly collected/handle d. Result Comment: Blood/Anticoagulant Ratio in tube unsatisfactory. Account Credited Called to MENDEL Burgess3 [id number] LAB INR 0.9-1.3 Unable to assay. Specimen improperly PT INR collected/handled. Result Comment: Blood/Anticoagulant Ratio in tube unsatisfactory. Account Credited Called to MENDEL Burgess3 [phone] Performed By: #### PT, PTT, CBC, CMP, MG1, PHOS, ERICK #### [facility] [address] [address] APTT Collected: 04/15/2018 Status: F Source: [place] 3:45 AM [facility] REPOSITORY TYPE CODE TESTS RESULT OUT OF REFERENCE UNITS RANGE LAB APTT 23.0-32.4 sec Unable APTT to assay. Specimen improperly collected/handle d. Result Comment: Blood/Anticoagulant Ratio in tube unsatisfactory. Account Credited Called to MENDEL Burgess3 [phone] Performed By: #### PT, PTT, CBC, CMP, MG1, PHOS, ERICK #### [facility] [place], [place] [address] CBC Collected: 04/15/2018 Status: F Source: [place] 3:45 AM [facility] REPOSITORY TYPE CODE TESTS RESULT OUT OF REFERENCE UNITS RANGE LAB WBC 3.70-11.00 k/uL WBC High 15.85 LAB RBC 4.20-6.00 m/uL Low RBC 2.74 LAB HGB 13.0-17.0 g/dL Low Hemoglobin 8.1 LAB HCT 39.0-51.0 % Low Hematocrit 23.4 LAB MCV 80.0-100.0 fL MCV 85.4 LAB MCH 26.0-34.0 pG MCH 29.6 LAB MCHC 30.5-36.0 g/dL MCHC 34.6 LAB RDWCV 11.5-15.0 % RDW-CV High 15.9 LAB PLTCT 150-400 k/uL Low Platelet Count 90 Result Comment: No clot detected. LAB MPV 9.0-12.7 fL MPV 11.5 LAB ABSNUC <0.01 k/uL Absolute nRBC <0.01 Performed By: #### PT, PTT, CBC, CMP, MG1, PHOS, ERICK #### [facility] [address] [place], [place] [address] COMP METABOLIC PANEL Collected: 04/15/2018 Status: F Source: [place] 3:45 AM [facility] REPOSITORY TYPE CODE TESTS RESULT OUT OF REFERENCE UNITS RANGE LAB TP 6.3-8.0 g/dL Low Protein, Total 5.2 LAB ALB 3.9-4.9 g/dL Low Albumin 2.6 LAB CA 8.5-10.2 mg/dL Low Calcium, Total 7.9 LAB TBIL 0.2-1.3 mg/dL Bilirubin, Total 0.4 LAB ALKP 38-113 U/L Alkaline Phosphatase 47 LAB AST 14-40 U/L AST High 44 LAB GLU 74-99 mg/dL Glucose High 359 Result Comment: The [place] [employer] (ADA) provides guidance for cutoff values for fasting glucose and random glucose. The ADA defines fasting as no caloric intake for at least 8 hours. Fas ting plasma glucose results between 100 to 125 mg/dL indicate increased risk for diabetes (prediabetes). Fasting plasma glucose results greater than or equal to 126 mg/dL meet the criteria for diagnosis of diabetes. In the absence of unequivocal hyperglycemia, results should be confirmed by repeat testing. In a patient with classic symptoms of hyperglycemia or hyperglycemic crisis, random plasma glucose results greater than or equal to 200 mg/dL meet the criteria for diagnosis of diabetes. Reference: Standards of Medical Care in Diabetes 2016, [place] [employer]. Diabetes Care. 2016.39(Suppl 1). LAB BUN 9-24 mg/dL BUN High 74 LAB CRET 0.73-1.22 mg/dL Creatinine High 2.47 LAB NA 136-144 mmol/L Sodium 136 LAB K 3.7-5.1 mmol/L Potassium 4.8 LAB CL 97-105 mmol/L Chloride 98 LAB CO2 22-30 mmol/L CO2 23 LAB AGAP 9-18 mmol/L Anion Gap 15 LAB ALT 10-54 U/L ALT 23 LAB GFRAA eGFR- Amer. 34 LAB GFRNAA . eGFR-All Other Races 28 Result Comment: eGFR (Estimated GFR) Units of measure: mL/min/1.73 meters squared eGFR is derived from the reexpressed MDRD Study equation using the following parameters: serum creatinine, age, gender and race. The creatinine assay has been calibrated to be traceable to IDMS. An eGFR <60 mL/min/1.73m2 for >3 months is consistent with chronic kidney disease. Refer to KDOQI guidelines for clinical interpretation. In patients with unstable renal function, e.g. those with acute kidney injury, the eGFR may not accurately reflect actual GFR. Performed By: #### PT, PTT, CBC, CMP, MG1, PHOS, ERICK #### [facility] [address] [place], [place] [address] MAGNESIUM Collected: 04/15/2018 Status: F Source: [place] 3:[address] [facility] REPOSITORY TYPE CODE TESTS RESULT OUT OF REFERENCE UNITS RANGE LAB MG 1.7-2.3 mg/dL Magnesium 1.7 Performed By: #### PT, PTT, CBC, CMP, MG1, PHOS, ERICK #### [facility] [address] [place], [place] [address] PHOSPHORUS Collected: 04/15/2018 Status: F Source: [place] 3:45 AM [facility] REPOSITORY TYPE CODE TESTS RESULT OUT OF REFERENCE UNITS RANGE LAB PHOS 2.7-4.8 mg/dL Phosphorus 2.9 Performed By: #### PT, PTT, CBC, CMP, MG1, PHOS, ERICK #### [facility] [address] [place], [place] [address] TROPONIN T Collected: 04/15/2018 Status: F Source: [place] 3:45 AM [facility] REPOSITORY TYPE CODE TESTS RESULT OUT OF REFERENCE UNITS RANGE LAB TROPT 0.000-0.029 ng/mL High Troponin T 0.056 Result Comment: Called to and read back by: BLAYNE MARC G53 04/15/18 0516 MERI Performed By: #### PT, PTT, CBC, CMP, MG1, PHOS, ERICK #### [facility] [address] [place] [id number] CONSULT Observed: 04/15/2018 Status: COMPLETED Source: [place] 3:39 AM [facility] REPOSITORY HNO ID: [id number] Author: Elliot Soto Service: Thoracic Surgery Author Type: Physician Type: Consults Filed: 04/16/2018 3:00 PM Note Text: [facility] THORAC[facility] SURGERY CONSULT NOTE Lazaro Villafana [id number] Requesting Provider: SICU Cardiothoracic Physician: Elliot Soto M.D. Admit Date: 04/14/2018 LOS : 1 Chief Complaint: Esophageal perforation HPI: (document at least 4 of these elements) 52 year old male history of poorly controlled DMII, HTN, CKD, COPD, active tobacco, active ETOH use and cirrhosis presented with massive hemoptysis to OSH ED where S-B tube was reportedly inserted and he was subsequently transferred to [facility]. EGD done there concerning for esophageal perforation, likely related to S-B tube placement, and so was transferred here. On arrival to [facility] SICU he was intubated, sedated unable to provide any collateral history. Appears septic on high dose pressors (0.03 vaso, 20 levo), vent settings of 40/8. CT scan was done which showed contrast extravasation (somewhat contained), small R sided effusion and no pneumomediastinum. Location: esophagus Quality: acute Severity: severe Duration: 1 day Unintentional weight loss over last 3 months: N/A PAST MEDICAL HISTORY: PAST MEDICAL HISTORY Diagnosis Date - Cirrhosis (HCC) - COPD (chronic obstructive pulmonary disease) (HCC) - Diabetes (HCC) - Hypertension PAST SURGICAL HISTORY: Unable to obtain, patient intubated and sedated FAMILY HISTORY: Unable to obtain, patient intubated and sedated SOCIAL HISTORY: Social History Substance Use Topics - Smoking status: Current Every Day Smoker - Smokeless tobacco: Not on file - Alcohol use Yes MEDICATIONS: Prior to Admission Medications: aztreonam (AZACTAM) 1 g in D5W 100 mL Inject 100 mL intravenously every 8 hours. metroNIDAZOLE (FLAGYL) 500 mg/100 mL Inject 100 mL intravenously every 8 hours. NORepinephrine (LEVOPHED) 16 mg in D5W 250 mL Inject 0.6-30 mcg/min intravenously continuous. octreotide 500 mcg in D5W 100 mL Inject 50 mcg/hr intravenously continuous. pantoprazole (PROTONIX) 40 mg injection Inject 10 mL intravenously twice daily. propofol infusion (DIPRIVAN) 10 mg/mL injection Inject 0.485- 5.82 mg/min intravenously continuous. ALLERGIES: ALLERGIES Allergen Reactions - Ciprofloxacin Unknown - Penicillin Unknown Chemical Exposure: N/A Asbestos Exposure N/A COMPLETE REVIEW OF SYSTEMS Unable to complete: Patient intubated, sedated and unable to respond PHYSICAL EXAM Constitutional: Ill appearing, intubated, sedated HEENT: No lesions Resp: Clear and no crepitus Cardiovascular: Regular rate AND rhythm GI: Firm, Non-tender and Non-distended Integumentary: Warm and Dry Musculoskeletal: No deformities Neurological/Psychiatric: Intubated, sedated, responds to painful stimulus Additional systems reviewed: No additional systems reviewed DATA: Laboratory: Recent Labs 04/14/18211904/14/18 1700 04/14/18 1415 WBC 22.38* 20.86* 21.54* HB 8.9* 8.0* 8.1* HCT 26.0* 25.0* 25.3* PLT 117* 102* 120* Recent Labs 04/14/18211904/14/18 1700 04/14/18 1415 NA 140 136 135* K 5.0 6.6* 5.3* BUN 76* 73* 73* CREAT 2.71* 2.66* 2.21* GLUC 445* 545* 494* MG 1.3* -- -- Recent Labs 04/14/182119 CK 121 MB 4.2 TROPT 0.139* Recent Labs 04/14/18 2120 04/14/18 1700 04/14/18 1415 INR 1.3 1.35* 1.31* Radiology: CT chest showing some contained extravasation without free flowing contrast in pleura, only small right sided effusion I have personally reviewed the following images/data: Chest X-ray and CT scan Outside Paper Medical Records Review personally performed by: Yaneli Arita MD Impression: 52 year old male with multiple medical comorbidities now with likely partial thickness esophageal perforation, putatively from S-B tube placement at OSH. It is unlikely that this is the etiology of his massive hemoptysis, reportedly there were multiple varices that, in the background of cirrhosis is the likely etiology of his bleed. While he is requiring high doses of vasopressors, it is unlikely that the source of his shock is purely from his esophageal perforation given his lack of pleural effusion or free flowing contrast. Most tellingly, he has NO MEDIASTINAL AIR despite EGD done at OSH - if there were a full thickness tear, there would likely be massive pneumomediastinum from insufflation. Plan: - STRICT NPO - no water, ice chips, etc. NO meds through EGD/[place]ak - EVERYTHING IV - Continue broad spectrum ABX as you are doing - Do NOT manipulate NGT blindly - Recommend GI consult with possible repeat EGD and endoluminal intervention - endoclips vs stenting. Concomitantly recommend suction of blood in stomach and NGT placement under direct endoscopic visualization. Discussed with Dr. Soto. SIGNATURE: Yaneli Arita MD PAGER: [phone] DATE of SERVICE: 04/15/2018 TIME of SERVICE: 3:39 AM [facility] STAFF PHYSICIAN NOTE OF PERSONAL INVOLVEMENT IN CARE Patient seen and examined independently. Agree with above consult note and case was discussed the ratoprinter of April 15, 2018. Please see my separate plan of care entry in [facility]. IMPRESSION: 52 yr M with cirrhosis and sequela including esophageal varices with hematemesis of unclear etiology s/p emergent Tony esophageal occlusion tube placement later on EGD found to have linear, partial thickness esophageal laceration from 31-37 cm from incisors. CT scan shows partial thickness esophageal tear but without active mediastinal or pleural extravasation. There is esophageal pneumatosis, pneumomediastinum or significant pleural effusion to suggest full thickness esophageal perforation. PLAN: 1. Discussed CT scan with staff radiologist who agreed that this represents a partial thickness esophageal injury and so no surgical intervention is indicated at this time based upon current clinical information 2. Interventional GI performed upper endoscopy which demonstrated the partial-thickness injury. This was not bleeding however was not amenable to stent placement 3. Continue current conservative management of esophageal injury I have reviewed the documentation obtained and documented by the Resident and have reviewed and updated the problem list as appropriate. I have personally performed a face to face assessment of the patient and have personally participated in the jang components. I have discussed the case and management of the patient's care. STAFF PHYSICIAN: Elliot Soto MD DATE OF SERVICE note to chart: April 16, 2018 TIME OF SERVICE note to chart: 2:57 PM PROGRESS Observed: 04/15/2018 Status: COMPLETED Source: [place] 2:33 AM [facility] REPOSITORY O ID: [id number] Author: ANDRESSA Hanson (Ct) Service: Radiology Author Type: Clinical Warrant Clerk Type: Progress Notes Filed: 04/15/2018 2:33 AM Note Text: Radiology Service Progress Note PATIENT NAME: Lazaro Villafana DATE OF SERVICE: April 15, 2018 TIME: 2:33 AM PATIENT IDENTITY VERIFICATION COMPLETED USING TWO (2) METHODS: Patient confirmed name verbally and ID band matches.. PATIENT GENDER DATA: Male PATIENT RELEVANT IMPLANT DATA REVIEWED: Yes RADIOLOGY DEPARTMENT: CT; Exam(s) Completed: Chest Abdomen Pelvis PERIPHERAL IV DATA: Not applicable SIGNED BY: ANDRESSA Hanson April 15, 2018 2:[address] ABD/PEL WO IVCON Observed: 04/15/2018 Status: F Source: [place] 2:23 AM [facility] REPOSITORY * * *Final Report* * * DATE OF EXAM: Apr 15 2018 2:23AM [facility] [place] 0531 - CT ABD/PEL WO IVCON / PROCEDURE REASON: Post operative complication suspected * * * * Physician Interpretation * * * * EXAMINATION: CT ABDOMEN AND PELVIS WITHOUT IV CONTRAST CLINICAL HISTORY: Cirrhosis. Presented to OSH with hematemesis status post Tony tube placement and subsequent EGD which showed blood clot in the esophagus and stomach as well as mid esophageal laceration. Patient subsequently transferred to [facility] for further management. TECHNIQUE: Non-IV contrast imaging of the abdomen and pelvis was performed using standard technique, scanning from just above the dome of the diaphragm to the symphysis pubis. Unenhanced imaging is limited for the evaluation of some intra-abdominal and pelvic pathology. MQ: [id number]_3 Contrast: IV: None Oral: 550 ml of 50ML Omnipaque [address] Radiation dose: Integrated Dose-length product (DLP) for this visit = 1008 mGy*cm. CT Dose Reduction Employed: Automated exposure control (AEC) COMPARISON: None. RESULT: Abdomen / Pelvis: Liver: Cirrhotic liver morphology. Biliary: Gallbladder sludge. Spleen: The spleen is enlarged, measuring up to 15.5 cm in craniocaudal length. Pancreas: Unremarkable. Adrenals: No mass. Kidneys: No calculus, hydronephrosis or finding to suggest a cyst or mass in the unenhanced kidney. GI Tract: Moderate gastric distention with mixed debris and likely clotted blood in the fundus and proximal body. No dilated bowel. Mild bowel wall edema. Wall thickening of the ascending colon, likely secondary to portal hypertension. Normal appendix. Lymph Nodes: Shotty nonenlarged mesenteric and retroperitoneal lymph nodes. There is a 2.4 x 1.6 cm portacaval lymph node (8:54), likely reactive. Mesentery/peritoneum: Small volume perihepatic ascites extending along the right paracolic gutter and into the pelvis. Mild mesenteric edema. No loculated collection. Retroperitoneum: No mass. Vasculature: Arterial atherosclerotic disease without aneurysm. Pelvis: Trace pelvic ascites. No loculated collection. No mass. Decompressed bladder with Mcclain catheter in place. Small bilateral inguinal hernias containing fat and ascites. Bones/Soft Tissues: No destructive osseous lesion. The soft tissues are unremarkable. Lower thorax: Partially imaged right-sided mid-distal esophageal tear. A chest CT performed will be reported separately. IMPRESSION: CIRRHOTIC LIVER MORPHOLOGY WITH PORTAL HYPERTENSION. PARTIALLY IMAGED ESOPHAGEAL TEAR WITH POSSIBLE BLOOD PRODUCTS IN THE STOMACH. PLEASE SEE CONCURRENTLY PERFORMED CT CHEST REPORT. Steel Turner: PSCB Transcribe Date/Time: Apr 15 2018 2:31A Dictated by : TED MARCANO MD This examination was interpreted and the report reviewed and electronically signed by: ЕЛЕНА AGARWAL MD on Apr 15 2018 7:22AM EST [id number] CT CHEST WO IVCON Observed: 04/15/2018 Status: C Source: [place] 2:23 AM [facility] REPOSITORY * * *Final Report* * * * * * SEE BOTTOM OF REPORT FOR ADDENDED TEXT * * * DATE OF EXAM: Apr 15 2018 2:23AM [facility] [place] 0541 - CT CHEST WO IVCON / PROCEDURE REASON: Esophageal varices * * * * Physician Interpretation * * * * * * * * * * * * ORIGINAL REPORT * * * * * * * * EXAMINATION: CHEST CT WITHOUT CONTRAST CLINICAL HISTORY: Cirrhosis. Presented to OSH with hematemesis status post Tony tube placement and subsequent EGD which showed blood clot in the esophagus and stomach as well as mid esophageal laceration. Patient subsequently transferred to [facility] for further management. Technique: Spiral CT acquisition of the chest from the thoracic inlet to the upper abdomen without contrast. MQ: [id number] CT Dose-Length Product: 1008 mGy*cm CT Dose Reduction Employed: Automated exposure control (AEC) Contrast: IV: None Oral: 550 ml of 50ML Omnipaque 240 W 850ML Water Comparison: None available. RESULT: Limitations: None. Lines, tubes, and devices: Endotracheal tube tip approximately 4 cm above the bethany. NG/OG tube tip in the upper esophagus. Lung parenchyma and pleura: Trachea and central airways are patent. Trace right pleural effusion with associated posterior lower lobe consolidative opacities with air bronchograms (right greater than left). Linear opacity in the anterior lingula (4:116), likely related to atelectasis. No suspicious pulmonary nodules. No pneumothorax. Thoracic inlet, heart, and mediastinum: The visualized thyroid is unremarkable. No lymphadenopathy in the supraclavicular or axillary regions. Multiple prominent nonenlarged mediastinal and hilar lymph nodes. For example (measured in short axis): 9 mm right paratracheal lymph node (4:60) and 9 mm right hilar lymph node (4:76). Common origin of the brachiocephalic and left common carotid arteries, a normal variant. The thoracic aorta and main pulmonary artery are normal in caliber. The cardiac chambers are normal in size. No coronary artery atherosclerotic calcifications are noted, although the study is not optimized for coronary assessment. No pericardial effusion. Enteric contrast is present within the esophagus. There is a long segment mid-distal tear of the esophagus on the right with a small amount of enteric contrast and gas pooling in the right paramidline posterior mediastinum (4:96). The tear extends from the levels of T6- T8 vertebral bodies and measures approximately 5.4 cm in craniocaudal length (7:63). Several tiny locules of extraluminal gas extends along the anterior and left margins of esophagus (4:83). There is no contrast extravasation within the left posterior mediastinum. Bones and soft tissues: No destructive bone lesion. Chest wall soft tissues are unremarkable. Upper abdomen: Please see concurrently performed CT abdomen/pelvis for findings IMPRESSION: 1. Long segment mid-distal esophageal tear extending approximately 5.4 cm in length along the right margin from the levels of T6- T8 vertebral bodies. Small amount of enteric contrast extravasation and pneumomediastinum. NG/OG tube tip in the upper esophagus. 2. Bilateral posterior lower lobe atelectasis/consolidative opacities (right greater than left), possibly related to aspiration and/or bilateral lower lobe pneumonia. Trace right pleural effusion. 3. Additional findings as described. RESIDENT INTERPRETATION: THE FOLLOWING REPORT HAS BEEN INTERPRETED BY THE DIRECTOR OF EARLY CHILDHOOD EDUCATION ON-CALL. FINAL REPORT IS PENDING REVIEW BY THE STAFF RADIOLOGIST. FINAL INTERPRETATION SHOULD BE CONFIRMED BY THE ORDERING CLINICAL SERVICE. I agree that this report by the resident or fellow represents my interpretation of the study. * * * * * * * * ADDENDUM #1 * * * * * * * * Imaging findings were discussed with Dr. Hector Soto M.D., at the time of dictation. Based on imaging appearance, the esophageal leak appears to be contained at this time, without any active extravasation. As per history, patient had forceful insertion of a SB tube into the esophagus for hemoptysis at an outside hospital, which may have resulted in partial thickness or full-thickness tear. On imaging appearance, it is difficult to determine if the extravasated contrast is contained within the adventitia or surrounding inflammatory adhesions. Steel Turner: PSCB Transcribe Date/Time: Apr 15 2018 10:26A Dictated by : WILI GATES MD This examination was interpreted and the report reviewed and electronically signed by: WILI GATES MD on Apr 15 2018 9:30AM EST This document has been addended by: WILI GATES MD on Apr 15 2018 10:32AM EST [id number] + ALL Collected: 04/15/2018 Status: F Source: [place] FOR 1:27 AM [facility] RADIANCE USE ONLY REPOSITORY TYPE CODE TESTS RESULT OUT OF REFERENCE UNITS RANGE LAB PH 7.35-7.45 pH 7.36 LAB PCO2 34-46 mm Hg pCO2 45 LAB PO2 85-95 mm Hg pO2 Low 83 LAB BE mmol/L Base Excess 0 LAB HCO3 22-26 mmol/L Bicarbonate 25 LAB CO2CT 22.0-28.0 mmol/L CO2 Content 26 LAB O2HB 95-98 % Oxyhemoglobin, Low Art. 94 LAB COHB 0-5.0 % Carboxyhemoglobin,A 0.9 rt LAB MHGB 0.4-1.5 % Methemoglobin 1.4 LAB TEMP C Temperature, Body 37.0 LAB PHTC 7.35-7.45 pH, Temp Corrected 7.36 LAB PCO2T 34-46 mm Hg pCO2, Temp Correct 45 LAB PO2T mm Hg pO2, Temp Corrected 83 LAB NAB 135-146 mmol/L Sodium,Whole Bld 138 LAB KWB 3.5-5.0 mmol/L Potassium, Whole Bld 4.5 LAB HGBB 13.0-17.0 g/dL Low Hemoglobin,Total,AC 8.3 L LAB HCTB 39.0-51.0 % Hematocrit, ACL Low 26 LAB IC 1.08-1.30 mmol/L Calcium, Ion, WB 1.12 LAB GLB 60-105 mg/dL Glucose,Whole Bld High 386 LAB LACT 0.5-2.2 mmol/L Lactate High 3.7 Performed By: #### ALLBG #### [facility] [address] [place], [place] [address] CNCRITCR Observed: 04/15/2018 Status: COMPLETED Source: [place] 12:00 AM [facility] REPOSITORY Critical Care Transport (CCT) LAZARO VILLAFANA ([id number]) 1965 M Date Time Provider Department 04/15/18 REGINE DE LEON) CCT During your visit today, we recorded the following information about you: Regine De Leon APRN.CNP 04/16/2018 9:04 PM Signed Arterial Line PROCEDURE NOTE Patient: Lazaro Villafana Date: April 15, 2018 INFORMED CONSENT: Informed consent was not obtained due to clinical factors necessitating an emergent procedure. SAFE PRACTICE Sign in Communication: Emergent N/A. Time Out: The procedural team confirmed the Correct Patient, the Correct Procedure, the Correct Site and the Correct Position (if applicable) during the audible time out: Emergent N/A. Sign Out Communication: Emergent N/A. INDICATION FOR LINE PLACEMENT: Continuous blood pressure monitoring CONDITION OF LINE PLACEMENT: Sterile PRIMARY PROCEDURALIST: JANAE Segura PROCEDURE NARRATIVE Site Marked: Yes Vero?s Test positive Skin Preparation: Chlorhexidine Gluconate Barriers Used by Proceduralist and All Assisting Personnel: Yes Barriers Used: Sterile Gloves CATHETER PLACEMENT/PLACEMENT TECHNIQUE Anesthesia was not utilized d/t the emergent nature of the procedure. The left radial artery was cannulated with a 20 g arterial catheter. Number of attempts at insertion: 1 Bright red pulsatile blood exited catheter:No Appropriate wave form was noted: No Line Secured with: NA Sterile dressing applied and dated: No, unsuccessful attempt Estimated Blood Loss: None Procedure was performed while vehicle in motion: yes COMPLICATIONS: None. The patient tolerated the procedure well Successful Placement: no SIGNATURE: Regine De Leon APRN.CNP PATIENT NAME: Lazaro Villafana DATE: 04/14/18 Regine De Leon APRN.CNP 04/16/2018 9:04 PM Signed Critical Care Transport Note Patient Name: Lazaro Villafana Service Date: 04/14/18 Referring Physician: Portillo Referring Facility: [facility] Accepting Physician: Josefina Accepting Facility: [facility] SUBJECTIVE/CHIEF COMPLAINT: Hematemesis, Upper GI bleed REASON FOR TRANSPORT: Specialized tertiary and quaternary care for the patient's acute upper GIB condition not available at the referring facility. History of Present Illness: The following history is what was known to CCT team at time of given care and summarized through review of available medical records, patient/family interview and from referring physician and nursing report. Lazaro Villafana is a 52 year old male with a past medical history significant for significant ETOH abuse, mult-isubstance abuse, recent diagnosis of cirrhosis, esophageal varices, 2-3 PPD smoker, DM and COPD. He presented to [facility] initially today for evaluation of bright red blood in emesis. Per report, he had been feeling unwell for the past few days with loss of appetite and diarrhea. His reported that he has a history of heavy drinking but over the last few days, his alcohol consumption decr and yesterday drank 2 beers. He had an episode of dark red emesis last night and maroon to black stool this AM. He presented to the ED with c/o lightheadedness, dizziness and SOB. denies hx of GI bleed, but has nose bleeds occasionally and takes 2-3 ASA daily for back pain. He has a hx of a positive PPD, but has never been followed up or treated. In the [facility] ED, he had massive emesis and a Tony tube was placed and he was intubated there for airway protection. Initial labs: INR 1.7, Hgb 7.1, WBC 13.1, Lactate 6.2, glucose 611, trop 0.36. He received 2 L NS IVF and 2 additional PRBC and 2 FFP. He was started on Protonix and Octreotide infusions and he was transferred then to [facility] for further care. On arrival to [facility] he was noted to be hypotensive (SBP in 60s), assumed to be bleeding and an emergent EGD was performed. Grade 2 varices were noted with no active bleed and at level 31-38 cm (scope depth) was noted a large clot overlying a large esophageal tear and NGT was placed. He was given 2 additional units of PRBC, Levo for hypotension, given Flagyl and Aztreonam for abx coverage, Protonix infusion was stopped, octreotide infusion continued. VBG 7.022/82.2/56.5/23.4, lactate 8.4, K+ 6.6, Na 136, BUN/Creat 73/2.66, Glucose 545, Ammonia 115, Tbili 0.7. He was started on Bicarb infusion, given 2 amps Bicarb. Currently he is on 25 mcg Levo, Octreotide, Propofol for sedation, Bicarb gtt, small amt dark red blood from NGT. At this time, the physician managing the patient requested transfer to the [facility] for tertiary and/or quaternary GI surgery services unavailable at the referring facility. The physician managing the patient requested the [facility] Critical Care Transport Team transport and treat the patient for the purpose of tertiary care, evaluation, and management of his Acute upper GI bleed, hemorrhage, hypovolemic shock, lactic acidosis, respiratory failure condition(s). Patient condition at time of exam was: Acutely ill and critically ill. Due to the unique circumstances of the patient, it was determined that this was the closest, most appropriate facility by referring physician. ROS: Could not obtain due to patient's mental status/critical illness PAST MEDICAL HISTORY: PAST MEDICAL HISTORY Diagnosis Date - Cirrhosis (HCC) - COPD (chronic obstructive pulmonary disease) (HCC) - Diabetes (HCC) - ETOH abuse - Hypertension PAST SURGICAL HISTORY: No past surgical history on file. ALLERGIES: Ciprofloxacin; Penicillin SOCIAL HISTORY: Social History Substance Use Topics - Smoking status: Current Every Day Smoker - Smokeless tobacco: Not on file - Alcohol use Yes FAMILY HISTORY: No family history on file. HOME MEDICATIONS: ASA PRN for back pain No other meds reported Medications Administered by Referring Facility: Norepinephrine 25 mcg/min Octreotide 50 mcg/hr Protonix (started in [place], has been DCd) Bicarbonate 1 amp/1000 ml - 125 ml/hr Insulin infusion Propofol 25 mcg/kg/min Flagyl 500 mg IV Aztreonam 1 gm IV Rocephin ([facility]) PRBC 4 units (2 by [facility], 2 by [facility]) FFP 2 units ([place]) LR 1.5 L IV fluids Thiamine 200 mg IV OBJECTIVE: Recent Labs, Diagnostics AND Procedure Reports reviewed as available. Referring Facility Labs CBC: WBC 20.86k Hgb 8.9 Hct 25.0 Plt 102K CHEMISTRY: Na 136 K 6.6 Cl 102 CO2 22 BUN 73 SCr 2.66 Glu 545 Ca 7.0 AG 19 Liver enzymes AST 28 ALT 27 AP 64 Tbili 0.7 TP 5.1 Alb 2.2 Cardiac Enzymes: Trop T 0.362 VBG: pH 7.022, PaCO2 82.2, PaO2 56.5, BiCarb 23.4, Lactate 8.4 Ammonia 115 Diagnostics AND Procedure Reports EC-lead not available to CCT at the time of transport CXR: (per OSH radiology report) ET tube in place above the level of the bethany. Radiopaque tube extending below the level of the diaphragm. No obvious consolidations, pleural effusions, airspace opacities. Procedure/Operative Report(s): EGD procedure - Reviewed Invasive Lines/Devices/Tubes Placed by Referring Facility: ETT 7.5, 25 at [facility] [place]ain cath PIV x 5 NGT PHYSICAL EXAM: Upon CCT Arrival at Referring Facility Vital Signs: HR 102bpm, BP 94/66(76)mmHg, RR 16, SpO2 100% Oxygen/Ventilator Settings: AC/VC rate 18, Vt 580, FiO2 80%, PEEP 6+ General appearance: Intubated, sedated, responsive to tactile stimulation. HEENT: normocephalic, PERRL, 2mm briskly reactive. Oropharynx clear, no plaques or exudates, Mucous membranes moist, Nasal mucosa non-edematous and No rhinorrhea Respiratory: clear to auscultation bilaterally, no respiratory distress, no rales, no rhonchi, no wheezing, no retractions, no cyanosis. Cardiovascular: no murmurs, no rubs, no gallops, regular rate and rhythm, peripheral pulses palpable and symmetric, 2+. No peripheral edema noted. Extremities warm, cap refill < 3 sec. Gastrointestinal: NGT with sm-mod amt dark red blood. soft, nontender, nondistended, no organomegaly, normal bowel sounds and no masses. Genitourinary: Exam deferred, mcclain cath present, small amt clear yellow urine Musculoskeletal: No clubbing, cyanosis or edema, no joint swelling, no bony tenderness and no deformities Skin: Mildly diaphoretic, normal, no abrasions or open wounds, no rashes noted. Heme/Lymph: See HPI. No external signs of bleeding. No unusual bruising noted. No cervical lymphadenopathy Neurologic: Intubated, sedated. Responds to tactile stimulation. Not following commands. Sensory intact. GCS Eyes: 1: None Verbal: T: Intubated Motor: 5: Localizes to stimulation Total: 7T CRITICAL CARE COURSE Upon bedside arrival at referring facility the patient was assessed and detailed physical exam performed. Initial exam findings as described above. The patient was placed on the transport monitor and all transport equipment transitioned in standard fashion. On initial exam, pt remained intubated, sedated, responsive to tactile stim, Levo, octreotide, Bicarb, propofol and insulin infusions continue. BP remained marginally low, levo titrated as needed. Pt began to cough and retch forcefully, fentanyl given as needed for sedation. Blood sugar checked at bedside, 394, insulin held as BS dropped ~200 in 2 hours and lack of available IV pumps for needed infusions. The patient was transferred to the transport cot and transported to the Ambulance and loaded without incident. An arterial line was attempted en-route (unsuccessful) as patient became acutely hypotensive with sedation. NS 0.9% IV fluids given wide open as was platelets given by OSH. The patient was medically managed, monitored, and reassessed during transport. On arrival to receiving unit, pt's BP more stable, levo, octreotide, propofol infusions continued. Medications Managed AND Administered by CCT: Norepinephrine - continued and titrated Propofol - continued and titrated Octreotide - continued Sodium Bicarb 1 amp/1L - continued Insulin - continued and then held Fentanyl 50 mcg IV x 2 1 5 pk platelets - as ordered by OSH Procedures Performed by CCT: Arterial line - attempt unsuccessful Ventilator management ASSESSMENT/PLAN: Lazaro Villafana is a 52 year old male admitted to OSH from another remote hospital with massive hematemesis, esophageal varices. A Tony tube was placed, pt intubated, 2 units PRBC and FFP given by other remote hospital and he was transferred to [facility]. There an EGD was performed that showed no further bleeding from esophagus, but patient remained in shock with lactic acidosis and evidence of multi organ dysfunction. Upper GI bleed Esophageal varices Acute blood loss anemia Hypovolemic shock Lactic acidosis Liver cirrhosis Thrombocytopenia - Initial exam as above, levo, octreotide, bicarb, insulin and propofol infusions continue - Continue Levo, titrate as needed - goal MAP > 65 mmHg - Additional IV fluids as needed for hypotension - Attempt arterial line for continuous BP monitoring - unsuccessful - PRBC 4 units, FFP 2 units given by OSH - H/H 8.9/25.0, Plt 102 - EGD showed no further bleeding - Replace Plt as ordered by OSH - Tony tube removed by [facility], NGT in place - Fentanyl for sedation as coughing/retching - high risk esoph hemorrhage - Expedite transport to [facility] for further surgical work up of acute UGIB Acute Respiratory failure - No known hx of COPD, asthma, respiratory illness - Current 2-3 ppd smoker - Intubated in [place] for airway protection with massive hematemesis - Vent settings: ACVC rate 18, FiO2 70%, Vt 525, PEEP 6+ - Wean FiO2 as possible - goal SaO2 > 94% Acute kidney Injury Hyperkalemia - No known hx acute or chronic renal dz prior to admit - BUN/Creat 73/2.66, K+ 6.6 - Acute injury r/t low flow state r/t shock/hypovolemia - On insulin and Bicarb infusions - Monitor closely for ectopy - Follow up needed at receiving unit Elevated Troponin - No known hx cardiac dz - Trop 0.362 - Likely cardiac strain r/t shock/hypovolemia - Follow up needed by receiving unit Hyperglycemia - Known hx DMII, unknown medical regimen, compliance - Gluc 611 in [place], 545 at [facility], on insulin infusion - Accu check 394 when CCT at - Insulin infusion on hold d/t precipitous drop and pump not available Hx of ETOH abuse - Known hx of heavy ETOH abuse, drank 2 beers yesterday - Will monitor for signs of acute withdrawal - Ativan if needed for seizures - Follow up counseling deferred to receiving unit The transport was completed without significant incident or change in the patient's status. The patient was transported to the the [facility] by [facility]otor (Helicopter) for tertiary and/or quaternary evaluation and management of his Critical Medical and Surgical condition(s). Upon arrival to the receiving facility, a [id number] report was given to bedside nursing staff in G53-4 and Staff Physician: Dr. Meneses. Patient care was transferred. The patient condition was Critical and Acutely Ill at the time of transfer. Vital Signs at time care transferred to the receiving facility unit: HR 103bpm, Rhythm sinus tach, BP 87/54(67) mmHg, RR 18, SpO2 97% on FiO2 50%, ETCO2 38, pPlat 11 SPECIAL EQUIPMENT: None MODE OF TRANSPORT: Surface (Ground) CRITICAL CARE TIME:I personally performed 45 minutes of critical care time exclusive of separately billable procedures, ambulance charges and treating other patients. This was necessary to treat or prevent further deterioration of the following condition(s): Acute upper GI bleed, hypotension, respiratory failure and the Cardiovascular impairment, Respiratory impairment, Shock and Cardiac Arrest which the patient had and/or had a high probability of suddenly developing. SIGNATURE: Regine De Leon APRN.FLIGHT ENGINEER MANAGER Acute Care Nurse Practitioner [facility] Critical Care Transport Team Allergies As of Date: 04/15/2018 Noted Allergy Reaction CIPROFLOXACIN 04/14/2018 16 - Unknown PENICILLIN 04/14/2018 16 - Unknown Date Reviewed: 04/15/2018 Reviewed by: German (Rn) BLAYNE Cavazos - Fully Assessed Reason for Visit: Critical Care Transport [1718] Prescriptions as of 04/15/2018 Sig: AZTREONAM IVPB 1 G IN D5W 100* Inject 100 mL intravenously e* METRONIDAZOLE 500 MG/100 ML-S* Inject 100 mL intravenously e* NOREPINEPHRINE IV INFUSION 16* Inject 0.6-30 mcg/min intrave* OCTREOTIDE IV INFUSION Inject 50 mcg/hr intravenousl* PANTOPRAZOLE 40 MG INTRAVENOU* Inject 10 mL intravenously tw* PROPOFOL 10 MG/ML INTRAVENOUS* Inject 0.485-5.82 mg/min intr* Problem List As Of Date 04/15/2018 Noted Resolved Upper GI bleed [K92.2] INVALID FOR* GI bleed [K92.2] INVALID FOR* More... High anion gap metabolic acidosis [E87.2] INVALID FOR* Hemorrhagic shock (HCC) [R57.8] INVALID FOR* Hyperglycemia [R73.9] INVALID FOR* Alcoholic cirrhosis (HCC) [K70.30] INVALID FOR* COPD (chronic obstructive pulmonary disease) (H*INVALID FOR* Esophageal perforation [K22.3] INVALID FOR* Follow-up and Disposition History Recorded Encounter Status:Closed by REGINE DE LEON on 04/16/18 ECG COMPLETE W Observed: 04/14/2018 Status: F Source: [facility] 11:30 PM [facility] REPOSITORY NAME : LAZARO VILLAFANA PID : [id number] : 1965 Gender : Male Race : ORD : [id number] Procedure Date : Apr 14 2018 23:30:24 Edit Date : Apr 15 2018 11:22:35 Diagnosis:NORMAL SINUS RHYTHM NORMAL ECG Confirmed by RENE BABIN M.D. ([id number]) on 04/15/2018 11:22:30 AM Ventricular Rate : 98 BPM Atrial Rate : 98 BPM P-R Interval : 154 ms QRS Duration : 106 ms Q-T Interval : 352 ms QTC Calculation(Bezet) : 449 ms P [place] : 4 degrees R [place] : 5 degrees T [place] : 11 degrees Test Reason : hematemesis Location : 153 : G53 [id number] Overread By : RENE BABIN M.D. Edited By : RENE BABIN M.D. Referred By : LITA NATH JR Acquired by : JASPAL GONZALES NURSING PROG Observed: 04/14/2018 Status: COMPLETED Source: [facility] 11:25 PM [facility] REPOSITORY HNO ID: [id number] Author: Antonina (Rn) BLAYNE Diaz Service: Nursing Author Type: Registered Nurse Type: Nursing Progress Note Filed: 04/14/2018 11:26 PM Note Text: Nursing Progress: Topic: RESTRAINT NON-VIOLENT PATIENT NAME: Lazaro Villafana PATIENT LOCATION: [place] [address] The patient demonstrates Attempting to Remove Medical Devices Vital to Medical Stability as evidenced by the following behaviors reaching for lines and ETT which pose an imminent danger to self or others. The following interventions were attempted but were not effective in protecting the patient's safety: Alarms, Bed in Low/Locked Position, Call Light Within Reach, Modify Environment, Medications Reviewed, Modify Equipment Next, a comprehensive assessment was performed and warranted placing the patient in Soft Bilateral Wrists, the least restrictive restraint needed to protect the patient's safety. Ongoing safety assessments and evaluation for earliest removal of restraints will be performed. DATE: April 14, 2018 TIME: 11:25 PM Antonina Diaz RN XR CHEST 1V FRONTAL Observed: 04/14/2018 Status: F Source: [facility] 11:21 PM [facility] REPOSITORY * * *Final Report* * * DATE OF EXAM: Apr 14 2018 11:21PM [facility] 5376 - XR CHEST 1V FRONTAL PORT / PROCEDURE REASON: Evaluate tube, line or lead position * * * * Physician Interpretation * * * * CHEST RADIOGRAPH (PORTABLE SINGLE VIEW AP) Exam Date/Time: 04/14/2018 11:21 PM Indications: Evaluate tube, line or lead position MQ: XCPMC_5 Comparison: Earlier the same day RESULTS: See Impression. IMPRESSION: Lines, Tubes, and Devices: Interval removal of nasogastric tube and otherwise stable support lines and tubes. Lungs and Pleura: Scattered lung opacities and small effusions are not significantly changed. No pneumothorax. Cardiomediastinal silhouette: Stable cardiac silhouette. Steel Turner: PSCB Transcribe Date/Time: Apr 15 2018 6:41A Dictated by : JUANCARLOS AHUMADA MD This examination was interpreted and the report reviewed and electronically signed by: JUANCARLOS AHUMADA MD on Apr 15 2018 6:41AM EST [id number] CONSULT PROG Observed: 04/14/2018 Status: COMPLETED Source: [facility] 11:12 PM [facility] REPOSITORY HNO ID: [id number] Author: Jordan Villar (Pharmacist) Service: Pharmacy Author Type: Pharmacist Type: Consult Progress Note Filed: 04/14/2018 11:18 PM Note Text: PHARMACY VANCOMYCIN DOSING NOTE Patient Name: Lazaro Villafana Admission Date: 04/14/2018 Date of Consult: 04/14/2018 Time of Consult: 11:12 PM Indication: Source Unknown; empiric Goal Range: 15-25 mcg/mL RECOMMENDATIONS/PLAN: Pharmacy consulted for vancomycin dosing for Lazaro Villafana, a 52 year old, male who is being treated with vancomycin for Source Unknown; empiric 1. Patient is currently ordered Vancomycin 2.5g IV x one dose . Today is day 1 of therapy. 2. No vancomycin level has been drawn for this dosing regimen. 3. Serum creatinine is currently elevated at 2.71mg/dl, therefore will discontinue vancomycin at this time and dose by level after giving a 25mg/kg x 1 loading dose . 4. The next vancomycin level will be ordered for 24 to 48 hours unless clinically indicated sooner. (Pharmacy will order) We will follow patient renal function, vancomycin levels and doses with you during the course of therapy. Additional recommendations will appear in follow up notes. If you have any questions, [place] [phone]. Age: [age] year old Allergies: ALLERGIES Allergen Reactions - Ciprofloxacin Unknown - Penicillin Unknown Last 3 Encounter Wt Readings: Date: Wt: 04/14/2018 97 kg (213 lb 13.5 oz) Last 1 Encounter Ht Readings: Date: Ht: 04/14/2018 177.8 cm (5' 10) CrCl: 38 mL/min Temp (24hrs), Av.4 ?C (99.3 ?F), Min:37.4 ?C (99.3 ?F), Max:37.4 ?C (99.3 ?F) - Current Temp: 37.4 ?C (99.3 ?F) Labs BUN (mg/dL) Date Value 04/14/2018 76 (H) 04/14/2018 73 (H) 04/14/2018 73 (H) Creatinine (mg/dL) Date Value 04/14/2018 2.71 (H) 04/14/2018 2.66 (H) 04/14/2018 2.21 (H) WBC Date Value 04/14/2018 20.86 thou/cmm (H) 04/14/2018 21.54 thou/cmm (H) 03/07/2018 3.17 k/uL (L) Vancomycin Levels: No results found for: LIZ Villar, Pharmacist XR CHEST 1V FRONTAL Observed: 04/14/2018 Status: F Source: [facility] 10:[address] [facility] REPOSITORY * * *Final Report* * * DATE OF EXAM: Apr 14 2018 10:17PM [facility] 5376 - XR CHEST 1V FRONTAL PORT / PROCEDURE REASON: Evaluate tube, line or lead position * * * * Physician Interpretation * * * * EXAMINATION: CHEST RADIOGRAPH (PORTABLE SINGLE VIEW AP) Exam Date/Time: 04/14/2018 10:17 PM Clinical History: Evaluate tube, line or lead position, MQ: XCPMC_5 Comparison: 1 day prior RESULT: See impression. IMPRESSION: Lines, tubes, and devices: The tip of the ET tube is 4 to 5 cm proximal to the bethany. An enteric tube courses below the diaphragm. The tip of the right IJ venous catheter overlies the mid SVC. Lungs and pleura: The lungs appear hypoinflated. There is passive atelectasis of the lung bases. No pleural effusion or pneumothorax is identified. Cardiomediastinal silhouette: No acute process identified. Increased soft tissue density in the right paratracheal region is likely secondary to venous distention. Steel Turner: NIDHI Transcribe Date/Time: Apr 14 2018 10:38P Dictated by : WASHINGTON MONTANEZ MD This examination was interpreted and the report reviewed and electronically signed by: WASHINGTON MONTANEZ MD on Apr 14 2018 10:40PM EST [id number] + ALL Collected: 04/14/2018 Status: F Source: [facility] FOR 10:06 PM [facility] USE ONLY REPOSITORY TYPE CODE TESTS RESULT OUT OF REFERENCE UNITS RANGE LAB PH 7.35-7.45 pH 7.30 Low LAB PCO2 34-46 mm Hg pCO2 50 High LAB PO2 85-95 mm Hg pO2 128 High LAB BE mmol/L Base Excess NEG 2 LAB HCO3 22-26 mmol/L Bicarbonate 24 LAB CO2CT 22.0-28.0 mmol/L CO2 Content 25 LAB O2HB 95-98 % 98 Oxyhemoglobin, Art. LAB COHB 0-5.0 % 0.9 Carboxyhemoglobin ,Art LAB MHGB 0.4-1.5 % 0.4 Methemoglobin LAB TEMP C 37.0 Temperature, Body LAB PHTC 7.35-7.45 pH, Temp 7.30 Low Corrected LAB PCO2T 34-46 mm Hg pCO2, Temp 50 High Correct LAB PO2T mm Hg pO2, Temp 128 Corrected LAB NAB 135-146 mmol/L 138 Sodium,Whole Bld LAB KWB 3.5-5.0 mmol/L Potassium, 5.1 High Whole Bld LAB HGBB 13.0-17.0 g/dL 9.0 Low Hemoglobin,Total, ACL LAB HCTB 39.0-51.0 % Hematocrit, 28 Low ACL LAB IC 1.08-1.30 mmol/L Calcium, 1.05 Low Ion, WB LAB GLB 60-105 mg/dL 423 High Glucose,Whole Bld LAB LACT 0.5-2.2 mmol/L Lactate 5.3 High LAB ABGCOM Blood Gas O2 Comm, Art Administration Result Comment: 50% Performed By: #### ALLBG #### [facility] [address], [place] [address] [phone] CONFIRM BLOOD TYPE Collected: 04/14/2018 Status: F Source: [place] 10:05 PM [facility] REPOSITORY TYPE CODE TESTS RESULT OUT OF REFERENCE UNITS RANGE LAB %ABR B ABO/RH(D) POSITIVE Performed By: #### CONABO #### [facility] [address] [place], [place] [address] PROCEDURE Observed: 04/14/2018 Status: COMPLETED Source: [facility] 9:51 PM [facility] REPOSITORY HNO ID: [id number] Author: Annie Meneses Service: Critical Care Author Type: Physician Type: Procedures Filed: 04/14/2018 11:18 PM Note Text: SICU PROCEDURE NOTE PROCEDURE DATE: 04/14/2018 PROCEDURE START TIME: 9:30 PM INFORMED CONSENT Informed consent was not obtained due to clinical factors necessitating an emergent procedure. The nature of the emergency was hemodynamic instability. UNIVERSAL PROTOCOL / SAFETY CHECKLIST Sign in Communication: Completed Time Out: Team Confirms the Correct Patient, Correct Procedure, Correct Site and Site Marking, Correct Position (if applicable), Prep and Dry Time (if applicable). Time: 9:30 PM Affirmation of Time Out: YES Sign Out Discussion: Completed PROCEDURE: CENTRAL VENOUS LINE INSERTION Indication: Vasoactive medication Insertion Type: New stick Site: Right internal jugular vein Inserted By: CA1 resident Supervision: Dr. Meneses [facility] Central Line Insertion checklist, attached to the Central Line-Associated Bloodstream Infection Prevention Policy, was utilized during this procedure. Ultrasound Used for Insertion: Yes, image not captured All personnel involved with the procedure used caps, masks with eye hawkins, sterile gowns and sterile gloves. The area was prepped with chlorhexidine gluconate and draped with a full-body sterile drape following the usual aseptic technique . Anesthesia was obtained with local infiltration of 1% lidocaine. The vessel was cannulated under direct ultrasound visualization with a 6.35 cm, 18 gauge single lumen catheter on the first attempt. The vessel was transduced to confirm venous placement. A J-tipped spring wire was passed into the vein through the indwelling catheter and left in situ while the catheter was removed. A small skin incision was made and the tract was dilated with a semi-rigid tissue dilator. A 16 cm triple-lumen, 7 Fr, non-tunneled, pressure injectable, antimicrobial catheter was advanced over the guidewire and left in situ while the guidewire was removed. All ports were capped with sterile site caps, venous blood was aspirated from all ports and all ports were flushed with sterile saline solution. The catheter was secured in place at 16 cm with sterile sutures and a sterile, transparent, occlusive chlorhexidine dressing was placed over the site. A portable CXR was ordered. All catheters, needles and wires were accounted for and intact. The patient tolerated the procedure well and without apparent complications No Specimens Collected Unless Noted Here Estimated Blood Loss: None SIGNATURE: Gloria Crawford MD PATIENT NAME: Lazaro Villafana DATE: April 14, 2018 TIME: 9:53 PM PAGER/CONTACT #: [phone] SICU--STAFF Procedure: CVP insertion [[id number]]; site right IJ I was present for supervision of this procedure, exclusive of critical care time. Annie Meneses MD. Staff Asbestos Handler Surgical ICU Anesthesiology [place] April 14, 2018 11:18 PM [place] [id number] PROCEDURE Observed: 04/14/2018 Status: COMPLETED Source: [place] 9:49 PM [facility] REPOSITORY O ID: [id number] Author: Annie Meneses Service: Critical Care Author Type: Physician Type: Procedures Filed: 04/14/2018 11:17 PM Note Text: SICU PROCEDURE NOTE PROCEDURE DATE: 04/14/2018 PROCEDURE START TIME: 9:15 PM INFORMED CONSENT Informed consent was not obtained due to clinical factors necessitating an emergent procedure. Hemodynamic instability requiring high dose vasopressor infusions. UNIVERSAL PROTOCOL / SAFETY CHECKLIST Sign in Communication: Completed Time Out: Team Confirms the Correct Patient, Correct Procedure, Correct Site and Site Marking, Correct Position (if applicable), Prep and Dry Time (if applicable). Time: 9:15 PM Affirmation of Time Out: YES Sign Out Discussion: Completed PROCEDURE: ARTERIAL LINE INSERTION Indication: Monitoring of vital bodily functions (BP, pH, paO2, paCO2) and Frequent ABGs AND Labs Insertion Type: New stick Site: Left radial artery Performed By: [facility] resident Supervision: Dr. Meneses All personnel involved with the procedure used caps, masks with eye hawkins and sterile gloves. The area was prepped with chlorhexidine gluconate and draped with a sterile drape following the usual aseptic technique . Anesthesia was obtained with local infiltration of 1% lidocaine. The vessel was cannulated under direct ultrasound visualization with a 20 gauge catheter on the first attempt. A straight- tipped spring wire was passed into the artery through the indwelling catheter and left in situ while the catheter was removed. A 20 gauge catheter was advanced over the guidewire and left in situ while the guidewire was removed. Pulsatile blood flow exited the catheter and an arterial waveform was noted on the monitor when the catheter was transduced. The catheter was secured in place with tape and a sterile, transparent, occlusive dressing was placed over the site. All catheters, needles and wires were accounted for and intact. The patient tolerated the procedure well and without apparent complications. No Specimens Collected Unless Noted Here Estimated Blood Loss: None SIGNATURE: Gloria Crawford MD PATIENT NAME: Lazaro Villafana DATE: April 14, 2018 TIME: 9:49 PM PAGER/CONTACT #: [phone] SICU--STAFF Procedure: Arterial line placement [[id number]]; site Left radial, new stick I was present for supervision of this procedure, exclusive of critical care time. Annie Meneses MD. Staff Asbestos Handler Surgical ICU Anesthesiology [place] April 14, 2018 11:17 PM [place] [id number] HISTORY PHYSICAL Observed: 04/14/2018 Status: COMPLETED Source: [place] 9:30 PM [facility] REPOSITORY O ID: [id number] Author: Roberto Bennett Service: General Surgery Author Type: Resident Type: HANDP Filed: 04/15/2018 5:17 AM Note Text: GENERAL SURGERY HISTORY AND PHYSICAL EXAMINATION PLEASE DO NOT REMOVE FROM THE CHART OR MODIFY PRINTED COPY Patient Name: Lazaro Villafana PRIMARY CARE PHYSICIAN: Jorge De Santiago MD ASSESSMENT/PLAN: 52 year old male with PMHx type II DM, poorly controlled HTN, CKD, COPD, tobacco smoker 2-3 PPD, alcohol use disorder with recent diagnosis of cirrhosis who presents on transfer from OSH with hematemesis s/p EGD at OSH c/b esophageal laceration vs Boerhaave's vs injury related to [place] tube on 1 pressor intubated/sedated -CT C/A/P with contrast per NGT pulled back to proximal esophagus to evaluate for ?esophageal perf (ordered) -Consult thoracic surgery if perforation, consult GI if no perforation for non-emergent repeat EGD -Consult ID re: TB history c/f latent TB; continue airborne precautions -PPx fluconazole for ?esophageal perforation in addition to Aztreonam/Flagyl -Continue PPI and Octreotide -Rest per SICU Senior resident addendum 52 YOM comes in intubated and sedated on pressors to SICU as a transfer from [facility]. He initially presented earlier in the day to [place] with hematemesis and bloody BMs subsequently temporized with Sengstaken-Tony tube. He was then transferred to [facility] where an EGD demonstrated grade 2 esophageal varices without active bleeding, old blood in stomach, normal duodenum and large clot over esophageal perforation/tear. Intervention wasn't attempted due to concern for esophageal perforation and he was transferred here for further management. Received 2U FFP and 2U pRBC at [facility], in addition to fluid boluses, CXR there showed no pneumomediastinum. Relevant medical history includes HTN, HLD, type II DM, liver cirrhosis (chronic alcoholic), COPD with extensive smoking history, as well as history of positive PPD (uncertain whether treated) Patient is currently on 35 Levo, intubated and sedated. Abdomen soft, distended, mild anterior bruising Plan for CT chest/abd/pelv with PO contrast to eval for lower esophageal perforation Thoracic/GI consultation if extrav on CT chest Continue resuscitation per SICU for now. Infectious disease consult in AM Discussed with MD Roberto Carbajal MD ? HPI: per chart review-patient intubated and sedated with no source of collateral info at bedside. 52 year old male with PMHx type II DM, poorly controlled HTN, CKD, COPD, tobacco smoker 2-3 PPD, alcohol use disorder with recent diagnosis of cirrhosis presents on transfer from [facility] with hematemesis. ? He notably has a history of +ve PPD, unsure if ever treated for TB. ? He initially presented to [facility] 04/14 from [facility] after he noted hematemesis. Per he had also had loss of appetite and diarrhea over several days prior to presentation; first noted dark red emesis 04/13, and had maroon-black colored stools 04/14. He also had complaints of lightheadedness and dizziness with SOB. [place] tube placed at [facility]. At [facility] he was found to be tachypneic, tachycardic, and hypotensive with SBP 62. INR 1.7, Hgb 7.1, WBC 13.3, lactic acid 6.2, glucose 611, troponin 0.38. He was subsequently intubated, got 2 units FFP and pRBCs, got 1g Rocephin, and started on protonix gtt and octreotide gtt. [place] tube removed at [facility], and EGD performed by GI with findings notable for esophageal laceration suspected between 31-38 cm, Boerhaave's syndrome vs. related to [place] tube ?2. Grade 2 esophageal varices w/o active bleeding. Per op report GI opted not to band varices or disturb areas of clot covering areas concerning for prior bleeding given no active bleed. NGT placed under endoscopic guidance. He was prepared for transfer to [facility] given Thoracic surgery at [facility] does not perform esophageal surgery. He received 2 further units pRBC (total 4), most recent Hgb 8.0 Currently on Levo 35, octreotide gtt. PAST MEDICAL HISTORY: No past medical history on file. CKD, HTN, COPD, Type II DM, cirrhosis, tobacco use PAST SURGICAL HISTORY: No past surgical history on file. Prior abd surgery in 20's FAMILY HISTORY: No family history on file. SOCIAL HISTORY: Social History Substance Use Topics - Smoking status: Not on file - Smokeless tobacco: Not on file - Alcohol use Not on file MEDICATIONS: Prior to Admission Medications: aztreonam (AZACTAM) 1 g in D5W 100 mL Inject 100 mL intravenously every 8 hours. metroNIDAZOLE (FLAGYL) 500 mg/100 mL Inject 100 mL intravenously every 8 hours. NORepinephrine (LEVOPHED) 16 mg in D5W 250 mL Inject 0.6-30 mcg/min intravenously continuous. octreotide 500 mcg in D5W 100 mL Inject 50 mcg/hr intravenously continuous. pantoprazole (PROTONIX) 40 mg injection Inject 10 mL intravenously twice daily. propofol infusion (DIPRIVAN) 10 mg/mL injection Inject 0.485- 5.82 mg/min intravenously continuous. Current hospital medications: albuterol 2.5 mg/0.5 mL 2.5 mg nebulizer solution (PROVENTIL) 2.5 mg INHALATION q 4 H PRN aztreonam 1 g in D5W 100 mL MB+ (AZACTAM) 1 g INTRAVENOUS q 8 H Chlorhexidine Gluconate 0.12 % 15 mL (PERIDEX) 15 mL ORAL QID dextrose 40 % 15 g 15 g ORAL PRN dextrose 50 % 12.5 g injection 12.5 g INTRAVENOUS PRN fentaNYL 50 mcg/mL 25-50 mcg injection (SUBLIMAZE) 25-50 mcg INTRAVENOUS q 1 H PRN glucagon 1 mg injection (GLUCAGEN) 1 mg INTRAMUSCULAR PRN insulin regular iv infusion 250 units in NaCl 0.9% 250 mL - ADULT DKA/HYPERGLYCEMIA NOMOGRAM 0.2-25.9 Units/hr INTRAVENOUS CONTINUOUS ipratropium-albuterol 3 mL nebulizer solution (DUONEB) 3 mL INHALATION q 4 H PRN metroNIDAZOLE 500 mg PREMIX piggyback (FLAGYL) 500 mg INTRAVENOUS q 8 H NaCl 0.9% 3-5 mL 3-5 mL INTRAVENOUS q 12 H NaCl 0.9% iv infusion 100 mL/hr INTRAVENOUS CONTINUOUS NORepinephrine 16 mg in D5W 250 mL (LEVOPHED) 0.6-30 mcg/min INTRAVENOUS CONTINUOUS octreotide 500 mcg in D5W 100 mL (SandoSTATIN) 50 mcg/hr INTRAVENOUS CONTINUOUS [START ON 04/15/2018] pantoprazole 40 mg injection (PROTONIX) 40 mg INTRAVENOUS BID AC (0600/1600) propofol infusion (DIPRIVAN) 5-60 mcg/kg/min INTRAVENOUS CONTINUOUS thiamine 100 mg in NaCl 0.9% 50 mL INTRAVENOUS DAILY ALLERGIES: ALLERGIES Allergen Reactions - Ciprofloxacin Unknown - Penicillin Unknown COMPLETE REVIEW OF SYSTEMS: Could not be gathered given intubated and sedated PHYSICAL EXAM: BP 98/55 Pulse 103 Temp 37.4 ?C (99.3 ?F) (Oral) Resp 18 SpO2 98% General: sedated CV/Pulm: intubated and sedated Abd: S, ND Extremities: warm, well perfused Neuro: intubated, sedated DATA: Radiology: - CT C/A/P with PO contrast per NGT ordered; f/u Laboratory: CBC, Coags, BMP, Mg, Phos Recent Labs 04/14/186 04/14/18 2120 04/14/18 1700 04/14/18 1415 WBC -- -- 20.86* 21.54* HB -- -- 8.0* 8.1* HCT -- -- 25.0* 25.3* PLT -- -- 102* 120* INR -- 1.3 1.35* 1.31* NA -- 140 136 135* K -- 5.0 6.6* 5.3* CHLOR -- 100 102 102 CO2 -- 24 22 BUN -- 76* 73* 73* CREAT -- 2.71* 2.66* 2.21* GLUC -- 445* 545* 494* IC 1.05* -- -- -- CA -- 7.1* 7.0* 8.0* MG -- 1.3* -- -- P -- 4.7 -- -- Microbiology: f/u BCx Greta Carballo MD PGY-1 Urology Pager: [phone] overnight; between 6a and 6p (7p on Wednesdays) please contact primary team Phone: [phone] ST[employer] [facility] PCR Collected: 04/14/2018 Status: F Source: [place] 9:23 PM [facility] REPOSITORY TYPE CODE TESTS RESULT OUT OF RANGE REFERENCE UNITS LAB SASRC Nasal S aureus Spec Source LAB MRSRES Negative for MRSA MRSA by PCR. PCR LAB SARES Positive for Abnormal Staph Staphylococcus Alert aureus PCR aureus by PCR. Performed By: #### SAPCR #### [facility] [address] [id number] PROTIME Collected: 04/14/2018 Status: F Source: [place] 9:20 PM [facility] REPOSITORY TYPE CODE TESTS RESULT OUT OF RANGE REFERENCE UNITS LAB PSEC 9.7-13.0 sec High PT Sec 13.2 LAB INR 0.9-1.3 PT INR 1.3 Result Comment: Vitamin K Antagonist (VKA) Therapeutic Range: INR 2 to 3 (Target INR of 2.5) Note: For patients treated with VKA drugs, such as warfarin, the [place] [employer] 2012 Guideline recommends a therapeutic INR range of 2 to 3 (target INR of 2.5). This recommendation includes high-risk patients with antiphospholipid syndrome with previous arterial or venous thromboembolism, current-generation mechanical or bioprosthetic aortic heart valve replacement. Note: Patients with mechanical aortic valve replacement and additional risk factors for thromboembolic events (atrial fibrillation, previous thromboembolism, LV dysfunction, hypercoagulable conditions) or an older generation mechanical AVR (i.e., ball in-Cage) or any mechanical MVR should have a INR therapeutic range of 2.5 to 3.5 (target INR of 3). Serjio GH, et al. Chest 2012, 141:7S-47S Rashida RA, et al. [facility] 2017, 70: 252-289 Performed By: #### PT, CKCKMB, CMP, MG1, PHOS, ERICK, PROCAL #### [facility] [address] [place], [place] [address] CK, TOTAL AND CKMB Collected: 04/14/2018 Status: F Source: [place] 9:20 PM [facility] REPOSITORY TYPE CODE TESTS RESULT OUT OF REFERENCE UNITS RANGE LAB CK 51-298 U/L CK 121 LAB MB <7.7 ng/mL MB 4.2 LAB CKMBRI 0.0-4.0 % CK MB % 3.5 Performed By: #### PT, CKCKMB, CMP, MG1, PHOS, ERICK, PROCAL #### [facility] [address] [id number] COMP METABOLIC PANEL Collected: 04/14/2018 Status: F Source: [place] 9:20 PM [facility] REPOSITORY TYPE CODE TESTS RESULT OUT OF REFERENCE UNITS RANGE LAB TP 6.3-8.0 g/dL Low Protein, Total 4.9 LAB ALB 3.9-4.9 g/dL Low Albumin 2.4 LAB CA 8.5-10.2 mg/dL Low Calcium, Total 7.1 LAB TBIL 0.2-1.3 mg/dL Bilirubin, Total 0.7 LAB ALKP 38-113 U/L Alkaline Phosphatase 50 LAB AST 14-40 U/L AST 36 LAB GLU 74-99 mg/dL Glucose High 445 Result Comment: The [place] [employer] Association (ADA) provides guidance for cutoff values for fasting glucose and random glucose. The ADA defines fasting as no caloric intake for at least 8 hours. Fas ting plasma glucose results between 100 to 125 mg/dL indicate increased risk for diabetes (prediabetes). Fasting plasma glucose results greater than or equal to 126 mg/dL meet the criteria for diagnosis of diabetes. In the absence of unequivocal hyperglycemia, results should be confirmed by repeat testing. In a patient with classic symptoms of hyperglycemia or hyperglycemic crisis, random plasma glucose results greater than or equal to 200 mg/dL meet the criteria for diagnosis of diabetes. Reference: Standards of Medical Care in Diabetes 2016, [place] [employer]. Diabetes Care. 2016.39(Suppl 1). LAB BUN 9-24 mg/dL BUN High 76 LAB CRET 0.73-1.22 mg/dL Creatinine High 2.71 LAB NA 136-144 mmol/L Sodium 140 LAB K 3.7-5.1 mmol/L Potassium 5.0 LAB CL 97-105 mmol/L Chloride 100 LAB CO2 22-30 mmol/L CO2 24 LAB AGAP 9-18 mmol/L Anion Gap 16 LAB ALT 10-54 U/L ALT 23 LAB GFRAA eGFR- Amer. 30 LAB GFRNAA . eGFR-All Other Races 25 Result Comment: eGFR (Estimated GFR) Units of measure: mL/min/1.73 meters squared eGFR is derived from the reexpressed MDRD Study equation using the following parameters: serum creatinine, age, gender and race. The creatinine assay has been calibrated to be traceable to IDMS. An eGFR <60 mL/min/1.73m2 for >3 months is consistent with chronic kidney disease. Refer to KDOQI guidelines for clinical interpretation. In patients with unstable renal function, e.g. those with acute kidney injury, the eGFR may not accurately reflect actual GFR. Performed By: #### PT, CKCKMB, CMP, MG1, PHOS, ERICK, PROCAL #### [facility] [address] [place] [address] MAGNESIUM Collected: 04/14/2018 Status: F Source: [place] 9:20 PM [facility] REPOSITORY TYPE CODE TESTS RESULT OUT OF REFERENCE UNITS RANGE LAB MG 1.7-2.3 mg/dL Low Magnesium 1.3 Performed By: #### PT, CKCKMB, CMP, MG1, PHOS, ERICK, PROCAL #### [facility] [address] [place] [address] PHOSPHORUS Collected: 04/14/2018 Status: F Source: [place] 9:20 PM [facility] REPOSITORY TYPE CODE TESTS RESULT OUT OF REFERENCE UNITS RANGE LAB PHOS 2.7-4.8 mg/dL Phosphorus 4.7 Performed By: #### PT, CKCKMB, CMP, MG1, PHOS, ERICK, PROCAL #### [facility] [address] [place], [place] [address] TROPONIN T Collected: 04/14/2018 Status: F Source: [place] 9:20 PM [facility] REPOSITORY TYPE CODE TESTS RESULT OUT OF REFERENCE UNITS RANGE LAB TROPT 0.000-0.029 ng/mL High Troponin T 0.139 Result Comment: Called to and read back by: Stephan MURRAY G53 04/14/18 Damián Villarreal Performed By: #### PT, CKCKMB, CMP, MG1, PHOS, ERICK, PROCAL #### [address] [address] PROCALCITONIN Collected: 04/14/2018 Status: F Source: [place] 9:20 [facility] REPOSITORY TYPE CODE TESTS RESULT OUT OF REFERENCE UNITS RANGE LAB PROCLT <0.09 ng/mL Procalcitonin High 2.67 Result Comment: For a guided interpretation of test results, please visit the Change in Procalcitonin Calculator, [email or web address]. Performed By: #### PT, CKCKMB, CMP, MG1, PHOS, ERICK, PROCAL #### [address] [address] TYPE AND SCREEN Collected: 04/14/2018 Status: F Source: [place] 9:20 [facility] REPOSITORY TYPE CODE TESTS RESULT OUT OF REFERENCE UNITS RANGE LAB %ABR B ABO/RH(D) POSITIVE LAB % Antibody NEG Screen Performed By: #### TSCR #### [id number] [place], [place] [address] CBC Collected: 04/14/2018 Status: F Source: [place] 9:20 PM [facility] REPOSITORY TYPE CODE TESTS RESULT OUT OF REFERENCE UNITS RANGE LAB WBC 3.70-11.00 k/uL WBC High 22.38 LAB RBC 4.20-6.00 m/uL Low RBC 3.03 LAB HGB 13.0-17.0 g/dL Low Hemoglobin 8.9 LAB HCT 39.0-51.0 % Low Hematocrit 26.0 LAB MCV 80.0-100.0 fL MCV 85.8 LAB MCH 26.0-34.0 pG MCH 29.4 LAB MCHC 30.5-36.0 g/dL MCHC 34.2 LAB RDWCV 11.5-15.0 % RDW-CV High 15.8 LAB PLTCT 150-400 k/uL Low Platelet Count 117 LAB MPV 9.0-12.7 fL MPV 12.4 LAB ABSNUC <0.01 k/uL Absolute nRBC <0.01 Performed By: #### CBC #### [facility] [address] [place], [place] [address] Observed: 04/14/2018 Status: F Source: [place] BLOOD CULTURE 9:[address] [facility] REPOSITORY Culture Result - No growth 5 days Performed By: #### BLCUL #### [facility] [address] [place], [place] [address] CNDS Observed: 04/14/2018 Status: COMPLETED Source: [place] 7:[address] [facility] OTHER CAMPUS REPOSITORY HNO ID: [id number] Author: Alessandra Dailey MD Service: Critical Care Author Type: Resident Type: Discharge Summaries Filed: 04/14/2018 8:01 PM Note Text: Attestation signed by Lita Nath Jr. at 04/15/2018 7:32 AM See other details from HANDP as well Lita Nath Jr, MD Critical care Service Discharge Summary PATIENT NAME: Lazaro Villafana ADMISSION DATE: 04/14/2018 DISCHARGE DATE: April 14, 2018 Dishar[place] Attending: Lita Nath Jr. Length of Stay: 0 days Primary Diagnosis: (K92.2) GI bleed (K92.2) Upper GI bleed (K70.30) Alcoholic cirrhosis of liver without ascites (HCC) (R57.8) Hemorrhagic shock (HCC) (R73.9) Hyperglycemia Secondary Diagnoses/ Problem List: Patient Active Hospital Problem List: GI bleed (04/14/2018) Upper GI bleed (04/14/2018) High anion gap metabolic acidosis (04/14/2018) Hemorrhagic shock (HCC) (04/14/2018) Hyperglycemia (04/14/2018) Alcoholic cirrhosis (HCC) (04/14/2018) COPD (chronic obstructive pulmonary disease) (HCC) (04/14/2018) Reason for Hospitalization: Upper GI bleed Hospital Course/ Significant Findings/ Treatment Provided: Mr Lazaro Villafana is a 52-year-old male with PMHx type II DM, poorly controlled HTN, CKD, COPD, tobacco smoker 2-3 PPD, alcohol use disorder with recent diagnosis of cirrhosis who presented from outside ED to [facility] on 04/14/2018 with complaints of bright red blood in emesis. History obtained through chart review and discussion with as patient is intubated and sedated at admission. According to patient's , the patient has been feeling unwell over the past few days with loss of appetite and diarrhea. The states he has a history of heavy drinking, but hasn't been drinking as much the past few days, last drank yesterday 2x24oz ales. He had an episode of dark red emesis last night, had maroon to black colored stool this AM. He also had complaints of lightheadedness and dizziness with shortness of breath. The states the patient has never had history of GI bleed, has had nosebleeds from time to time. He takes 2-3 aspirin daily for back pain. He hasn't been taking any medications for the last several weeks. Has a history of positive PPD, unsure if he was ever treated for TB. While being in the ER,the patient was tachypneic, tachycardic with SBP 62 at presentation. INR 1.7, Hgb 7.1, WBC 13.3, lactic acid 6.2, glucose 611, troponin 0.38. The patient received 2L IVF, patient was sedated and paralyzed with etomidate and rocuronium, intubated with 7.5 ET tube and [place] tube placed. Given 2 units FFP and PRBCs. Given protonix bolus and placed on protonix gtt, octreotide gtt started. Received 1 g rocephin. Placed on ketamine gtt for transfer. Patient has been transferred to MICU for further care. While being hospitalized, he has been seen via GI, thoracic surgery and general surgery teams. GI performed an EGD and concluded the diagnosis of esophageal laceration suspected between 31-38 cm, Boerhaave's syndrome vs. related to [place] tube 2. Grade 2 esophageal varices w/o active bleeding. They recommended chest and abd CT, transfer to [facility] dep on CT surgery discussion here. Gen surgery was consulted and they recommended to cont Pantoprazole and octreotide gtts. Thoracic surgery concluded in their note that esophageal surgery not being done at [facility] and they are standing by for dissected RCA in paving and surfacing labourer. Patient best served by immediate transfer to [facility] for evaluation by/with esophageal thoracic surgeons. He has also been found to have hemoglobin of 8. Therefore he has been hemoglobin of 8, he received a total of 4 units of PRBC amnd 2 units of FFP. He is also suspected to have TB, therefore needed precautions are required. Patient has been transferred to [facility] for further care and possible surgery. ? Consulting Teams During Hospitalization: Gastroenterology: . Surgery : General and Thoracic Condition on Discharge: Poor Medications on Discharge: Discharge Medication List as of 04/14/2018 8:00 PM START taking these medications aztreonam (AZACTAM) 1 g in D5W 100 mL Inject 100 mL intravenously every 8 hours. Med Update metroNIDAZOLE (FLAGYL) 500 mg/100 mL Inject 100 mL intravenously every 8 hours. Med Update, Long-term NORepinephrine (LEVOPHED) 16 mg in D5W 250 mL Inject 0.6-30 mcg/min intravenously continuous. Med Update octreotide 500 mcg in D5W 100 mL Inject 50 mcg/hr intravenously continuous. Med Update pantoprazole (PROTONIX) 40 mg injection Inject 10 mL intravenously twice daily. Med Update, Long-term propofol infusion (DIPRIVAN) 10 mg/mL injection Inject 0.485-5.82 mg/min intravenously continuous. Med Update Pending Test Results: No pending results. Disposition: [facility] Follow-up Appointments: Follow Up with PCP: Jorge De Santiago MD No future appointments. SIGNATURE: Alessandra Dailey MD PATIENT NAME: Lazaro Villafana DATE: April 14, 2018 TIME: 8:00 PM PAGER/CONTACT #: [phone] GLUCOSE METER Collected: 04/14/2018 Status: F Source: [facility] 7:30 PM HEALTH SYSTEM REPOSITORY TYPE CODE TESTS RESULT OUT OF REFERENCE UNITS RANGE LAB GLUBL(LOINC 70-99 mg/dL ) High Glucose Meter 394 Performed By: #### GLMET #### [address] [address] BLOOD GAS ARTERIAL Collected: 04/14/2018 Status: F Source: [facility] 7:00 HEALTH SYSTEM REPOSITORY TYPE CODE TESTS RESULT OUT OF REFERENCE UNITS RANGE LAB FIO2(LOINC % ) FIO2 Value Not Given LAB TEMPA(LOIN C) Temperature 37.0 LAB PH(LOINC) 7.350-7.450 Low pH Arterial 7.329 LAB PCO2(LOINC 36.0-46.0 mm Hg ) PCO2 High Arterial 46.3 LAB PO2(LOINC) 85.0-96.0 mm Hg Low PO2 Arterial 71.5 LAB HCO3A(LOIN 22.0-26.0 mEq/L C) HCO3- 23.8 LAB O2%A(LOINC 95.0-98.0 % ) O2% Sat Arterial 97.7 LAB BASEX(LOIN -2.5 to 2.5 mEq/L C) Base Excess -2.0 Performed By: #### ABG #### [address] [address] HISTORY PHYSICAL Observed: 04/14/2018 Status: COMPLETED Source: [place] 6:27 PM [facility] REPOSITORY HNO ID: [id number] Author: Annie Meneses Service: Critical Care Author Type: Physician Type: HANDP Filed: 04/14/2018 11:14 PM Note Text: SICU HANDP NOTE SERVICE DATE: 04/14/2018 SERVICE TIME: 9:00 PM Subjective HPI: Mr. 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 Patient initially presented with hematemesis and melena with accompanying dizziness and shortness of breath. Now being admitted to the SICU for surgical evaluation and hemodynamic monitoring. PMHx: CKD, HTN, COPD, Type II DM, cirrhosis, tobacco use PSHx: prior abdominal surgery in 20s Medications: noncompliant, unsure about medications Allergies: Penicillin (anaphylaxis as child) Social: daily drinker (unsure amount), 2-3 PPD tobacco use No past medical history on file. No past surgical history on file. No family history on file. Social History Substance Use Topics - Smoking status: Not on file - Smokeless tobacco: Not on file - Alcohol use Not on file ALLERGIES Allergen Reactions - Ciprofloxacin Unknown - Penicillin Unknown Objective VITAL SIGNS Temp: 37.4 ?C (99.3 ?F) Pulse: 103 BP: 98/55 MAP Non Invasive (Mean Arterial Pressure): 75 Resp: 18 SpO2: 98 % RESPIRATORY Mechanical Ventilation: Vent Mode: PC SIMV Freq (bpm): 14 PS (cmH20): 5 PEEP / CPAP (cmH20): 8 FIO2 (%): 60 Recent Labs 04/14/18 1700 04/14/18 1415 LACT 8.4* 4.6* PHYSICAL EXAM Neuro: Intubated and sedated Pulmonary: Rhonchi bilateral Breath Sounds Equal: Yes Cardiovascular: Regular rhythm Abdomen: Soft and Nontender Extremities: Edema- No Peripheral pulses- Present all extremities Presence of Pressure Ulcer No CXR Findings: Clear lung alvarez Infusions: Propofol, Norepinephrine, Octreotide, Insulin No current facility-administered medications for this encounter. RECENT LABS Recent Labs 04/14/18 1700 04/14/18 1415 CA 7.0* 8.0* NA 136 135* K 6.6* 5.3* CHLOR 102 102 CO2 22 22 BUN 73* 73* CREAT 2.66* 2.21* GLUC 545* 494* TPROT 5.1* 6.2* ALB 2.2* 2.7* AST 28 29 ALT 27 29 ALKPHOS 64 76 TBILI 0.7 0.7 WBC 20.86* 21.54* RBC 2.73* 2.67* HB 8.0* 8.1* HCT 25.0* 25.3* PLT 102* 120* INR 1.35* 1.31* DATA: Diagnostic tests reviewed for today's visit: Most recent labs and imaging results. Assessment/Plan Mr. 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 Patient initially presented with hematemesis and melena with accompanying dizziness and shortness of breath. Now being admitted to the SICU for surgical evaluation and hemodynamic monitoring. REASON FOR ICU ADMISSION: Surgical evaluation and hemodynamic monitoring Seen and discussed on rounds with SICU staff. Neuro: --Sedation with propofol --Lorazepam 1-2mg IV prn if withdrawal symptoms occur --thiamine and folic acid CV: Currently HDS on levo --Wean pressors for MAPs >65 Pulm: Intubated. Hx of COPD. --Continue home bronchodilators --BPH, duonebs prn Renal: LIANE with Cr 2.66 (baseline unknown), hyperkalemia --Monitor Cr and I/Os --Mcclain --Insulin gtt, kayexalate, lasix, bicarb and calcium if needed GI: Esophageal perforation, general surgery aware --Pantoprazole for GI ppx --Octreotide gtt for GI bleed --NPO --NGT placed at OSH during EGD Heme: Hgb 8.0, s/p 2u pRBC at OSH --Transfuse to keep Hgb >7 Fluid/Electrolyte/Nutrition: --NPO --mIVF with NS given hyperkalemia --Continue insulin gtt for hyperkalemia, will add kayexalate, lasix, bicarb and calcium if needed --Replete lytes per SICU protocol Endo: Hx of IDDM, HgbA1c 8.2. --Continue insulin gtt ID: Esohageal perf. WBC 20.86, lactate 8.4. --Continue Aztreonam and Flagyl Medication and Non-Pharmacologic VTE Prophylaxis/Anticoagulants VTE Prophylaxis: VTE prophylaxis appropriate SIGNATURE: Gloria Crawford MD PATIENT NAME: Lazaro Villafana DATE: April 14, 2018 TIME: 6:28 PM PAGER/CONTACT #: [phone] SICU STAFF PHYSICIAN NOTE OF PERSONAL INVOLVEMENT IN CARE I have reviewed the history and physical examination obtained and documented by the resident and I personally participated in the jang components as documented above regarding the following problems or issues and made appropriate changes. These issues or problems included: Patient required fluid boluses for hypotension. Close monitoring of the following has been required: respiratory status, cardiac status and acute GI bleeding IMPRESSION : Mr. Villafana is a 52-year-old male with PMHx type II DM, poorly controlled HTN, CKD, COPD, tobacco smoker 2-3 PPD, alcohol use disorder with recent diagnosis of cirrhosis who was transferred from OSH with concern for an esophageal perforation on EGD. Patient initially presented with hematemesis and melena to an OSH and was noted to be tachypneic and tachycardic with SBP in the 60s. He was intubated and a [place] tube was placed prior to transfer to [facility]. He was transfused blood for anemia and FFP for INR 1.7. At [facility] he underwent EGD with concern for esophageal perforation (31-38 cm) related to [place] tube vs. Boerhaave's syndrome. Grade 2 esophageal varices without active bleeding were noted. He was transfused additional blood products. He was also treated with insulin infusion for DKA, broad spectrum ABX, PPI and octreotide drip and norepinephrine infusion. He is transferred to [facility] for general surgery vs thoracic surgery evaluation. On admission to SICU, the patient is intubated and sedated. He is on 40 mcg/min of norepinephrine. He is on 50% FiO2 with adequate saturations. Of note, the patient is in airborne precautions for ?h/o TB. PLANs as noted above plus : Acute respiratory insufficiency Intubated at OSH. Currently on PC SIMV, 50% FiO2, PEEP 8, PS 5. Lung protective strategy: TV 6 ml/k, PP< 30 cm H2O, titrate FiO2 to keep SaO2 >92% VAP prevention protocol: chlorhexidine, HOB 30 degrees Acute anemia due to blood loss with upper GI bleed S/p 4 units pRBCs at OSHs. Hgb 9.0 on arrival. Continue to monitor with serial laboratories. No indication for further transfusion at this time. PPI BID. Continue octreotide infusion. Per surgery, pending results of CT scan, will consult GI for repeat EGD. DKA Blood sugar 611 on presentation to OSH with mild anion gap elevation. Blood sugar 445 on admission to SICU with anion gap 16. Continue insulin infusion. Goal BS < 180. Septic shock Norepi at 35 mcg/min, add vasopressin Procalcitonin 2.67. WBC > 20 Lactate 5.3 (down-trending from OSH) Blood cultures pending. F/U MRSA screen. Vancomycin, flagyl, fluconazole and cefepime. Acute renal insufficiency Per chart, baseline creatinine ~1.2 from 02/2018. Creatinine elevated to 2.71 on admission Monitor UOP closely. Avoid nephrotoxic medications. May require nephro consult. Electrolyte imbalance Hypomagnesemia Supplement per protocol. Secondary thrombocytopenia Related to cirrhosis. Plts 102 at OSH and given 1 5 pk transfusion by critical care transport. Given no evidence of active hemorrhage, will hold off on further transfusion. ?Esophageal perforation General surgery at the bedside to evaluate. Will likely obtain CT chest with PO contrast to evaluate for leak. Will consult thoracic surgery if perforation. Empiric ABX as above. H/o alcohol abuse and cirrhotic disease INR 1.3 on admission (s/p 2 FFP at OSH) Other LFTs wnl. Thrombocytopenia as above. Continue thiamine. I devoted my full attention to the direct care of this patient for the amount of time indicated below. Time I spent with family or surrogate(s) is included only if the patient was incapable of providing the necessary information or participating in medical decision making. Time devoted to teaching and to any procedures I billed separately is not included. Time spent providing critical care services: 50 minutes. Daily Assessments: HOB >30 deg GI Prophylaxis PPI BID (treatment) DVT Prophylaxis SCDs only, holding SQH SEDATION INTERRUPTION -Applicable and Completed CENTRAL ACCESS -Necessary. Personal evaluation has established that ongoing need exists for R IJ CVP, placed 04/14. -Vasoactive Medication(s) -Fever and/ or DDX of Sepsis -Limited access -Medications which can be given only via a central route or large volume bolus infusions RESTRAINTS -Necessary for altered mental status/risk of self-harm (pulling on life support devices, etc) SIGNATURE: Annie Meneses MD DATE: April 14, 2018 RBC PRODUCTS Collected: 04/14/2018 Status: F Source: [facility] 6:08 PM HEALTH SYSTEM REPOSITORY TYPE CODE TESTS RESULT OUT OF REFERENCE UNITS RANGE LAB UNIT1(LOINC ) Xmatch Unit 1 see below Result Comment: Compatible [facility] X[facility] Unit 2 see below Result Comment: Compatible Performed By: #### RBCPS #### [facility] [address] [id number] CASE MANAGEM Observed: 04/14/2018 Status: COMPLETED Source: [facility] 6:00 PM CLINIC OTHER CAMPUS REPOSITORY HNO ID: [id number] Author: Remi Trevizo (Sw) Service: Care Management Author Type: Mmd Unit Teacher Type: Care Mgt Progress Note Filed: 04/14/2018 6:15 PM Note Text: CARE MANAGEMENT PROGRESS NOTE SERVICE DATE: 04/14/2018 SERVICE TIME: 6:00 Pm LOS: 0 days Transportation for family request Social work was called by the Clinical Party Plan Sales Consultant who requested taxi voucher to take the patients from home to main campus CC to be with her . Social work called the critical care unit nurse management Fernando who reports this request social work can not approve and their is no program for that helps patients family get to the hospital. Social work updated the Clinical cancer registry manager Morro and gave Mrs. King's contact information. Social work will follow appropriately. SIGNATURE: DON Jacobsen PATIENT NAME: Lazaro Villafana DATE: April 14, 2018 TIME: 6:11 PM PAGER/CONTACT #: [phone] ABDOMEN 1 VIEW Observed: 04/14/2018 Status: F Source: [facility] 6:00 PM HEALTH SYSTEM REPOSITORY Performed at [facility] APPROVED BY: Km Clifford MD EXAM TITLE: ABDOMEN 1 VIEW DATE: 04/14/2018 17:50 INDICATION: Esophagogastric tube positioning COMPARISON: 04/14/2018 FINDINGS: Frontal view of the lower thorax and upper abdomen demonstrates an esophagogastric tube whose tip is at the mid stomach. There is continued gaseous distention of the stomach as well as some distention of small bowel. IMPRESSION: Esophagogastric tube tip is at the mid stomach. CHEST 1 VIEW Observed: 04/14/2018 Status: F Source: [facility] 6:00 PM HEALTH SYSTEM REPOSITORY Performed at [facility] APPROVED BY: Km Clifford MD EXAM TITLE: CHEST 1 VIEW DATE: 04/14/2018 17:50 INDICATION: Support line positioning COMPARISON: 04/14/2018 FINDINGS: Since the previous exam, the feeding tube has been withdrawn and an esophagogastric tube has been placed whose tip is at the mid stomach. There is distention of the stomach. The endotracheal tube is stable. Lungs are clear and there is no visible pneumothorax. The heart is not enlarged. IMPRESSION: No acute cardiopulmonary abnormality. Support lines as discussed. There is gaseous distention of the stomach. MDRD GFR Collected: 04/14/2018 Status: F Source: [facility] 5:00 HEALTH SYSTEM REPOSITORY TYPE CODE TESTS RESULT OUT OF RANGE REFERENCE UNITS LAB GFRFN(LOINC >60mL/min/1.73m ) 2 eGFR 25.48 Result Comment: If the patient is , multiply the result by 1.210. Performed By: #### GFR #### [facility] [address] [address] VENOUS BLOOD GAS Collected: 04/14/2018 Status: F Source: [facility] 5:00 [facility] REPOSITORY TYPE CODE TESTS RESULT OUT OF REFERENCE UNITS RANGE LAB TEMPC(LOIN C) Temperature 37.0 LAB PHV(LOINC) 7.320-7.420 Low pH Venous alert 7.072 LAB PCO2I(LOIN 38.0-49.0 mm Hg C) PCO2 Venous High 82.2 LAB PO2VI(LOIN 35.0-45.0 mm Hg C) PO2 Venous High 56.5 LAB HCO3C(LOIN 22.0-26.0 mEq/L C) HCO3- 23.4 LAB BASE(LOINC -2.5 to 2.5 mEq/L ) Base Excess -6.8 LAB O2%V(LOINC 70.0-80.0 % ) O2% Sat Venous 78.5 Performed By: #### VBG #### [place] [address] PROTIME Collected: 04/14/2018 Status: F Source: [facility] 5:[facility] REPOSITORY TYPE CODE TESTS RESULT OUT OF REFERENCE UNITS RANGE LAB PTI(LOINC) 9.7-13.0 sec Prothrombin High Time 13.7 LAB INR(LOINC) 0.90-1.30 INR High 1.35 Result Comment: Note: Reference Range Change Vitamin K Antagonist (VKA) Therapeutic Range: INR 2 to 3 (Target INR of 2.5) Note: For patients treated with VKA drugs, such as warfarin, the [place] [employer] 2012 Guideline recommends a therapeutic INR range of 2 to 3 (target INR of 2.5). This recommendation includes high-risk patients with antiphospholipid syndrome with previous arterial or venous thromboembolism, current-generation mechanical or bioprosthetic aortic heart valve replacement. VKA Therapeutic Range for some Mechanical Valve Replacement: INR 2.5 to 3.5 (Target INR of 3) Note: Patients with mechanical aortic valve replacement and additional risk factors for thromboembolic events (atrial fibrillation, previous thromboembolism, LV dysfunction, hypercoagulable conditions) or an older generation mechanical AVR (i.e., ball in-Cage) or any mechanical MVR should have a INR therapeutic range of 2.5 to 3.5 target INR of 3). Serjio ALTAMIRANO, et al. Chest 2012; 141:7S-47S Rashida RA, et al. JACC 2017; 70: 252-289 Performed By: #### PT #### [place] [address] HEMOGRAM/DIFF Collected: 04/14/2018 Status: F Source: [facility] 5:00 PM HEALTH SYSTEM REPOSITORY TYPE CODE TESTS RESULT OUT OF REFERENCE UNITS RANGE LAB WBC(LOINC) 4.23-9.07 thou/cmm WBC High 20.86 LAB RBC(LOINC) 4.63-6.08 mil/cmm Low RBC 2.73 LAB HGB(LOINC) 13.7-17.5 g/dL Low Hgb 8.0 LAB HCT(LOINC) 40.1-51.0 % Low Hct 25.0 LAB MCV(LOINC) 83.2-95.6 fl MCV 91.6 LAB MCH(LOINC) 25.7-32.2 pg MCH 29.3 LAB MCHC(LOINC 32.3-36.5 % ) Low MCHC 32.0 LAB RDW(LOINC) 11.6-14.4 % RDW High 15.3 LAB RDWSD(LOIN 36.1-45.8 fl C) RDW SD High 51.6 LAB PLT(LOINC) 141-365 thou/cmm Low Platelet 102 LAB MPV(LOINC) 8.7-12.0 fl MPV High 12.2 LAB SEG(LOINC) % Seg Neutrophil 81.8 LAB IGRE(LOINC % ) Immature Grans 0.50 LAB LYMPH(LOIN % C) Lymphocyte 10.8 LAB MNO(LOINC) % Monocyte 6.3 LAB EOSIN(LOIN % C) Eosinophil 0.4 LAB BASO(LOINC % ) Basophil 0.2 LAB SEGN(LOINC 1.78-5.38 thou/cmm ) Abs. High Neut (ANC) 17.06 LAB IGAB(LOINC 0.00-0.05 thou/cmm ) Abs High Immature Grans 0.10 LAB LYMN(LOINC 0.84-2.85 thou/cmm ) Abs. Lymph 2.25 LAB MONON(LOIN 0.30-0.82 thou/cmm C) Abs. High Hendry 1.31 LAB EOSN(LOINC 0.04-0.54 thou/cmm ) Abs. Eosin 0.08 LAB BASON(LOIN 0.01-0.08 thou/cmm C) Abs. Baso 0.04 Performed By: #### CBCD1 #### [place] [address] LACTIC ACID Collected: 04/14/2018 Status: F Source: [facility] 5:00 HEALTH SYSTEM REPOSITORY TYPE CODE TESTS RESULT OUT OF REFERENCE UNITS RANGE LAB LAC(LOINC) 0.4-2.0 mEq/L High alert Lactic Acid 8.4 Performed By: #### LAC #### [place] [address] COMPREHENSIVE PANEL Collected: 04/14/2018 Status: F Source: [facility] 5:00 HEALTH SYSTEM REPOSITORY TYPE CODE TESTS RESULT OUT OF REFERENCE UNITS RANGE LAB NA(LOINC) 136-145 mEq/L Sodium Blood 136 LAB K(LOINC) 3.5-5.1 mEq/L Potassium High alert Blood 6.6 LAB CL(LOINC) 98-107 mEq/L Chloride Blood 102 LAB CO2(LOINC) 21-32 mEq/L CO2 Blood 22 LAB GLU(LOINC) 70-99 mg/dL Glucose High alert Blood 545 LAB BUN(LOINC) 7-18 mg/dL BUN Blood High 73 LAB CREA(LOINC 0.67-1.17 mg/dL ) Creatinine High Blood 2.66 LAB CA(LOINC) 8.5-10.1 mg/dL Low Calcium Blood 7.0 LAB ALB(LOINC) 3.4-5.0 g/dL Low Albumin Blood 2.2 LAB TP(LOINC) 6.4-8.2 g/dL Low Total Protein 5.1 LAB AST(LOINC) 9-37 U/L AST-SGOT Blood 28 LAB ALT(LOINC) 12-78 U/L ALT-SGPT Blood 27 LAB ALKP(LOINC 46-116 U/L ) Alk Phosphatase 64 LAB BILIT(LOIN 0.2-1.0 mg/dL C) Total Bilirubin 0.7 LAB ANGAP(LOIN 8-16 C) Anion Gap High 19 Performed By: #### P14 #### [facility] [address] [place], [place] [address] TROPONIN I Collected: 04/14/2018 Status: F Source: [facility] 5:00 PM HEALTH SYSTEM REPOSITORY TYPE CODE TESTS RESULT OUT OF REFERENCE UNITS RANGE LAB TROP(LOINC) 0.015-0.045 ng/ml High Troponin I 0.362 Performed By: #### TROP #### [facility] [address] [place] [place], [place] [address] CONSULT Observed: 04/14/2018 Status: COMPLETED Source: [facility] 4:41 PM CLINIC OTHER CAMPUS REPOSITORY HNO ID: [id number] Author: Sarthak Ricks Service: Thoracic Surgery Author Type: Physician Type: Consults Filed: 04/14/2018 6:04 PM Note Text: CONSULT: CTS SERVICE SERVICE DATE: 04/14/2018 SERVICE TIME: 4:34 PM REASON FOR CONSULT: Esophageal Perforation REQUESTING PHYSICIAN: Dr. Nath PRIMARY CARE PHYSICIAN: Jorge De Santiago MD Subjective Mr. Villafana is a 52 year old male who presents from [facility] after hematemesis. A [place] tube was placed and he was transferred to [facility] for management. When the EGD was being prepared the [place] tube was approximately 30 cm advanced. The tube was deflated and carefully removed. An EGD was performed that showed blood clot in the esophagus and in the stomach. There was no active bleeding. A laceration was noted from 31 to 38 cm on the scope of the patients right side. An NGT was placed under EGD visualization. FUNCTIONAL STATUS: Independent No past medical history on file. No past surgical history on file. No family history on file. Social History Substance Use Topics - Smoking status: Not on file - Smokeless tobacco: Not on file - Alcohol use Not on file No prescriptions prior to admission. Current hospital medications: albuterol 2.5 mg /3 mL (0.083 %) 2.5 mg (PROVENTIL) 2.5 mg INHALATION q 4 H PRN aztreonam 1 g in D5W 100 mL MB+ (AZACTAM) 1 g INTRAVENOUS q 8 HR dextrose 50% in water 25-50 mL syringe 25-50 mL INTRAVENOUS PRN fentaNYL 50 mcg/mL 25-50 mcg injection (SUBLIMAZE) 25-50 mcg INTRAVENOUS q 2 H PRN folic acid 1 mg injection 1 mg INTRAVENOUS DAILY insulin regular 250 units in NaCl 0.9% 250 mL iv infusion - ICU NOMOGRAM 0.5-30 Units/hr INTRAVENOUS CONTINUOUS ipratropium-albuterol 3 mL nebulizer solution (DUONEB) 3 mL INHALATION QID iv contrast (radiology procedure) INTRAVENOUS DIRECTED PRN LORazepam 2 mg (ATIVAN) 2 mg ORAL q 1 H PRN LORazepam 2 mg injection (ATIVAN) 2 mg INTRAVENOUS q 1 H PRN LORazepam 4 mg (ATIVAN) 4 mg ORAL q 1 H PRN LORazepam 4 mg injection (ATIVAN) 4 mg INTRAVENOUS q 1 H PRN metroNIDAZOLE 500 mg PREMIX piggyback (FLAGYL) 500 mg INTRAVENOUS q 8 H NaCl 0.9% 3-5 mL 3-5 mL INTRAVENOUS q 12 H octreotide 500 mcg in D5W 100 mL (SandoSTATIN) 50 mcg/hr INTRAVENOUS CONTINUOUS pantoprazole 40 mg injection (PROTONIX) 40 mg INTRAVENOUS BID propofol infusion (DIPRIVAN) 5-60 mcg/kg/min INTRAVENOUS CONTINUOUS sodium bicarbonate 50 mEq in NaCl 0.45% 1,000 mL infusion INTRAVENOUS CONTINUOUS thiamine 200 mg in NaCl 0.9% 50 mL 200 mg INTRAVENOUS DAILY Allergies As of Date: 04/14/2018 Allergen Noted Reaction CIPROFLOXACIN 04/14/2018 Unknown PENICILLIN 04/14/2018 Unknown Fully Assessed 04/14/2018 COMPLETE REVIEW OF SYSTEMS: Unable to perform due to sedation. Objective PHYSICAL EXAM: Physical Exam Performed: Gen - laying in bed, NAD, AANDOx3 HEENT - EOMI, mucus membranes moist, PEERL Neuro - motor/sensory/national sales manager grossly intact CV - HR and BP WNL on monitors. Resp - respirations unlabored. Abd - soft, mild distension, not obviously tender. No rebound/guarding. Back - Non tender. EXT - NICOLAS, no edema. BP 96/56 Pulse 125 Temp 96.3 Resp 18 Ht 5' 10 (1.78m) Wt 213 lb 13.5 oz (97.0kg) SpO2 99% BMI 30.68 kg/(m2). DATA: Diagnostic tests reviewed for today's visit: CBC, Coags, BMP, Mg, Phos Recent Labs 04/14/18 1415 WBC 21.54* HB 8.1* HCT 25.3* PLT 120* INR 1.31* NA 135* K 5.3* CHLOR 102 CO2 22 BUN 73* CREAT 2.21* GLUC 494* CA 8.0* Liver Function, Amylase, AND Lipase Recent Labs 04/14/18 1415 TPROT 6.2* ALB 2.7* ALT 29 AST 29 ALKPHOS 76 TBILI 0.7 LACT 4.6* Cardiac Enzymes ABGs Impression/Recommendations 52 YOM with esophageal tear. - EGD showed tear in mid esophagus. - there was no active bleeding. - NGT placed to suction. - CT scan of chest/abdomen/pelvis has been ordered by MICU. - Thoracic surgery does not do esophageal surgery at [facility]. Therefore it is recommended that he be transferred to [facility] or another institution that is able to definitively care for this patient. Case discussed with Dr. Ricks. SIGNATURE: Raf Treadwell MD PATIENT NAME: Lazaro Villafana DATE: April 14, 2018 TIME: 4:34 PM PAGER: [phone] Patient seen briefly in ICU. Intubated and fighting/moving in bed. Case discussed briefly with resident. GI note reviewed. Esophageal laceration vs laceration with perforation unclear. Esophageal surgery not being done here and I am also standing by for dissected RCA in paving and surfacing labourer. Patient best served by immediate transfer to [facility] for evaluation by/with esophageal thoracic surgeons. Spoke with Dr. Nath who agrees. CONSULT PROG Observed: 04/14/2018 Status: COMPLETED Source: [facility] 4:36 PM CLINIC OTHER CAMPUS REPOSITORY HNO ID: [id number] Author: Clarence Jensen Service: Gastroenterology Author Type: Physician Type: Consult Progress Note Filed: 04/14/2018 4:55 PM Note Text: INITIAL CONSULT GASTROENTEROLOGY SERVICE DATE: 04/14/2018 SERVICE TIME: 14:30 Consulting Service: GI Opinion/advice regarding: GI bleed Subjective HPI: This is a 52 year old male who presents with hx of hypotension and hematemesis intubated and w a [place] tube placed transferred from [facility] to [facility] MICU. There apparently is a rel new dx of cirrhosis in this pt. No hx of prev GI bleeding, stomach ulcers as child? There is an addl feature in pt's hx of testing pos for PPD or pos CXR. No past medical history on file. No past surgical history on file. No family history on file. Social History Substance Use Topics - Smoking status: Not on file - Smokeless tobacco: Not on file - Alcohol use Not on file MEDICATIONS: Prior to Admission Medications: No prescriptions on file. Current hospital medications: albuterol 2.5 mg /3 mL (0.083 %) 2.5 mg (PROVENTIL) 2.5 mg INHALATION q 4 H PRN aztreonam 1 g in D5W 100 mL MB+ (AZACTAM) 1 g INTRAVENOUS q 8 HR dextrose 50% in water 25-50 mL syringe 25-50 mL INTRAVENOUS PRN fentaNYL 50 mcg/mL 25-50 mcg injection (SUBLIMAZE) 25-50 mcg INTRAVENOUS q 2 H PRN folic acid 1 mg injection 1 mg INTRAVENOUS DAILY insulin regular 250 units in NaCl 0.9% 250 mL iv infusion - ICU NOMOGRAM 0.5-30 Units/hr INTRAVENOUS CONTINUOUS ipratropium-albuterol 3 mL nebulizer solution (DUONEB) 3 mL INHALATION QID iv contrast (radiology procedure) INTRAVENOUS DIRECTED PRN LORazepam 1-2 mg injection (ATIVAN) 1-2 mg INTRAVENOUS q 1 H PRN metroNIDAZOLE 500 mg PREMIX piggyback (FLAGYL) 500 mg INTRAVENOUS q 8 H NaCl 0.9% 3-5 mL 3-5 mL INTRAVENOUS q 12 H octreotide 500 mcg in D5W 100 mL (SandoSTATIN) 50 mcg/hr INTRAVENOUS CONTINUOUS pantoprazole 40 mg injection (PROTONIX) 40 mg INTRAVENOUS BID propofol infusion (DIPRIVAN) 5-60 mcg/kg/min INTRAVENOUS CONTINUOUS sodium bicarbonate 50 mEq in NaCl 0.45% 1,000 mL infusion INTRAVENOUS CONTINUOUS thiamine 200 mg in NaCl 0.9% 50 mL 200 mg INTRAVENOUS DAILY ALLERGIES Allergen Reactions - Ciprofloxacin Unknown - Penicillin Unknown GI SPECIFIC REVIEW OF SYSTEMS: Positive for as per NATIVE OTHER ROS: Negative for fever, night sweats, sleep problems, mood or depression. Objective PHYSICAL EXAM: BP 96/56 Pulse (!) 125 Temp (!) 35.7 ?C (96.3 ?F) Resp 18 Ht 177.8 cm (5' 10) Wt 97 kg (213 lb 13.5 oz) SpO2 99% BMI 30.68 kg/m? GENERAL: intubated, unresponsive HEENT: Moist mucus membranes, no carotid bruit LUNGS: Clear to auscultation bilaterally CARDIAC: S1, S2 heard, no murmur appreciated ABDOMEN: Soft, non-tender without guarding or rigidity, normal bowel sounds, no ascites, ND EXTREMITIES: No pedal edema DATA: Diagnostic Tests Reviewed for Today's Visit: Most recent labs and imaging results. Impression/Recommendations Active Problems: Upper GI bleed POA: Yes Assessment AND Plan: 1. Diff dx includes variceal vs PUD. Hx of 2-3 ASA daily vs BASA?. Pt was started on Octreotide and IV PPI at [facility]. [place] tube not clearly inflated on CXR/AXR. Tube seems high at about 25 cm and deflated fully, but did not seem to have much air suctioned out of esoph and gastric ports. Then gently removed before endoscopy. See separate report for EGD. Resolved Problems: * No resolved hospital problems. * SIGNATURE: Clarence Jensen MD PATIENT NAME: Lazaro Villafana DATE: April 14, 2018 TIME: 4:36 PM PAGER/CONTACT #: [phone] Observed: 04/14/2018 Status: COMPLETED Source: [facility] 4:34 PM CLINIC OTHER CAMPUS REPOSITORY O ID: [id number] Author: Raf Juarez Service: General Surgery Author Type: Resident Type: Consults Filed: 04/14/2018 4:44 PM Note Text: Attestation signed by Jason Nelson at 04/16/2018 12:52 PM I saw and evaluated the patient. Discussed with the resident and agree with resident's findings and plan as documented in the resident's note. Pt seen during EGD Findings d/w Dr Jensen Distal esoph with 8-10 cm long tear Pt is a very high surgical risk' An esoph stent may help but may also exacerbate the problem Would consider transfer to [facility] Lenny Nelson MD CONSULT: EGS SERVICE SERVICE DATE: 04/14/2018 SERVICE TIME: 4:34 PM REASON FOR CONSULT: Esophageal Perforation REQUESTING PHYSICIAN: Dr. Nath PRIMARY CARE PHYSICIAN: Jorge De Santiago MD Subjective Mr. Villafana is a 52 year old male who presents from [facility] after hematemesis. A Tony tube was placed and he was transferred to [facility] for management. When the EGD was being prepared the Tony tube was approximately 30 cm advanced. The tube was deflated and carefully removed. An EGD was performed that showed blood clot in the esophagus and in the stomach. There was no active bleeding. A laceration was noted from 31 to 38 cm on the scope of the patients right side. An NGT was placed under EGD visualization. FUNCTIONAL STATUS: Independent No past medical history on file. No past surgical history on file. No family history on file. Social History Substance Use Topics - Smoking status: Not on file - Smokeless tobacco: Not on file - Alcohol use Not on file No prescriptions prior to admission. Current hospital medications: albuterol 2.5 mg /3 mL (0.083 %) 2.5 mg (PROVENTIL) 2.5 mg INHALATION q 4 H PRN aztreonam 1 g in D5W 100 mL MB+ (AZACTAM) 1 g INTRAVENOUS q 8 HR dextrose 50% in water 25-50 mL syringe 25-50 mL INTRAVENOUS PRN fentaNYL 50 mcg/mL 25-50 mcg injection (SUBLIMAZE) 25-50 mcg INTRAVENOUS q 2 H PRN folic acid 1 mg injection 1 mg INTRAVENOUS DAILY insulin regular 250 units in NaCl 0.9% 250 mL iv infusion - ICU NOMOGRAM 0.5-30 Units/hr INTRAVENOUS CONTINUOUS ipratropium-albuterol 3 mL nebulizer solution (DUONEB) 3 mL INHALATION QID iv contrast (radiology procedure) INTRAVENOUS DIRECTED PRN LORazepam 2 mg (ATIVAN) 2 mg ORAL q 1 H PRN LORazepam 2 mg injection (ATIVAN) 2 mg INTRAVENOUS q 1 H PRN LORazepam 4 mg (ATIVAN) 4 mg ORAL q 1 H PRN LORazepam 4 mg injection (ATIVAN) 4 mg INTRAVENOUS q 1 H PRN metroNIDAZOLE 500 mg PREMIX piggyback (FLAGYL) 500 mg INTRAVENOUS q 8 H NaCl 0.9% 3-5 mL 3-5 mL INTRAVENOUS q 12 H octreotide 500 mcg in D5W 100 mL (SandoSTATIN) 50 mcg/hr INTRAVENOUS CONTINUOUS pantoprazole 40 mg injection (PROTONIX) 40 mg INTRAVENOUS BID propofol infusion (DIPRIVAN) 5-60 mcg/kg/min INTRAVENOUS CONTINUOUS sodium bicarbonate 50 mEq in NaCl 0.45% 1,000 mL infusion INTRAVENOUS CONTINUOUS thiamine 200 mg in NaCl 0.9% 50 mL 200 mg INTRAVENOUS DAILY Allergies As of Date: 04/14/2018 Allergen Noted Reaction CIPROFLOXACIN 04/14/2018 Unknown PENICILLIN 04/14/2018 Unknown Fully Assessed 04/14/2018 COMPLETE REVIEW OF SYSTEMS: Unable to perform due to sedation. Objective PHYSICAL EXAM: Physical Exam Performed: Gen - laying in bed, NAD, AANDOx3 HEENT - EOMI, mucus membranes moist, PEERL Neuro - motor/sensory/national sales manager grossly intact CV - HR and BP WNL on monitors. Resp - respirations unlabored. Abd - soft, mild distension, not obviously tender. No rebound/guarding. Back - Non tender. EXT - NICOLAS, no edema. BP 96/56 Pulse 125 Temp 96.3 Resp 18 Ht 5' 10 (1.78m) Wt 213 lb 13.5 oz (97.0kg) SpO2 99% BMI 30.68 kg/(m2). DATA: Diagnostic tests reviewed for today's visit: CBC, Coags, BMP, Mg, Phos Recent Labs 04/14/18 1415 WBC 21.54* HB 8.1* HCT 25.3* PLT 120* INR 1.31* NA 135* K 5.3* CHLOR 102 CO2 22 BUN 73* CREAT 2.21* GLUC 494* CA 8.0* Liver Function, Amylase, AND Lipase Recent Labs 04/14/18 1415 TPROT 6.2* ALB 2.7* ALT 29 AST 29 ALKPHOS 76 TBILI 0.7 LACT 4.6* Cardiac Enzymes ABGs Impression/Recommendations 52 YOM with esophageal tear. - EGD showed tear in mid esophagus. - there was no active bleeding. - NGT placed to suction. - CT scan of chest/abdomen/pelvis. - Thoracic surgery consult. - He may be able to have esophageal stent placed if needed prior to transfer to [facility] for definitive management. Case discussed with Dr. Nelson. SIGNATURE: Raf Treadwell MD PATIENT NAME: Lazaro Villafana DATE: April 14, 2018 TIME: 4:34 PM PAGER: [phone] RBC PRODUCTS Collected: 04/14/2018 Status: F Source: [facility] 4:13 PM HEALTH SYSTEM REPOSITORY TYPE CODE TESTS RESULT OUT OF REFERENCE UNITS RANGE LAB UNIT1(LOINC ) Xmatch Unit 1 see below Result Comment: Compatible LAB UNIT2(LOINC) Xmatch Unit 2 see below Result Comment: Compatible Performed By: #### RBCPS #### [place] [address] AMMONIA Collected: 04/14/2018 Status: F Source: [facility] 4:10 PM HEALTH SYSTEM REPOSITORY TYPE CODE TESTS RESULT OUT OF REFERENCE UNITS RANGE LAB JESSICA(LOINC 11-32 umol/L ) High alert Ammonia 115 Performed By: #### JESSICA #### [place] [address] ABO/RH CONFIRMATION Collected: 04/14/2018 Status: F Source: [facility] 4:00 PM HEALTH SYSTEM REPOSITORY TYPE CODE TESTS RESULT OUT OF REFERENCE UNITS RANGE LAB ABO(LOINC) B ABO Group LAB CYTOTECHNOLOGIST/HISTOTECHNOLOGIST(LOINC) RH Type Positive Performed By: #### ABOCK #### [place] [address] HISTORY PHYSICAL Observed: 04/14/2018 Status: COMPLETED Source: [place] 3:[address] [facility] OTHER CAMPUS REPOSITORY HNO ID: [id number] Author: Lita Nath Jr. 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 History obtained through chart review and discussion with as patient is intubated and sedated at admission. According to patient's , the patient has been feeling unwell over the past few days with loss of appetite and diarrhea. The states he has a history of heavy drinking, but hasn't been drinking as much the past few days, last drank yesterday 2x24oz ales. He had an episode of dark red emesis last night, had maroon to black colored stool this AM. Presented to outside ED with complaints of lightheadedness and dizziness with shortness of breath. The states the patient has never had history of GI bleed, has had nosebleeds from time to time. He takes 2-3 aspirin daily for back pain. He hasn't been taking any medications for the last several weeks. Has a history of positive PPD, unsure if he was ever treated for TB. ER/ hospital course: The patient was tachypneic, tachycardic with SBP 62 at presentation. INR 1.7, Hgb 7.1, WBC 13.3, lactic acid 6.2, glucose 611, troponin 0.38. The patient received 2L IVF, patient was sedated and paralyzed with etomidate and rocuronium, intubated with 7.5 ET tube and [place] tube placed. Given 2 units FFP and PRBCs. Given protonix bolus and placed on protonix gtt, octreotide gtt started. Received 1 g rocephin. Placed on ketamine gtt for transfer. Review of Systems unable to obtain as patient is intubated and sedated PMHx: CKD, HTN, COPD, Type II DM, cirrhosis, tobacco use PSHx: prior abdominal surgery in 20s Medications: noncompliant, unsure about medications Allergies: Penicillin (anaphylaxis as child) Social: daily drinker (unsure amount), 2-3 PPD tobacco use ALLERGIES Allergen Reactions - Ciprofloxacin Unknown - Penicillin Unknown PHYSICAL EXAM VITAL SIGNS (last 24hrs min/max): Temp Av.7 ?C (96.3 ?F) Min: 35.7 ?C (96.3 ?F) Max: 35.7 ?C (96.3 ?F) Pulse Av.6 Min: 135 Max: 139 Cuff BP Min: 146/77 Max: 184/99 24 hour Intake AND Output: No intake or output data in the 24 hours ending 04/14/18 1509 DELIVERY RECRUITER: Intubated, Sedated Oral Mucosa: Endotracheal tube in place, [place] balloon emerging from mouth, Eyes: PERRLA Neck: Unremarkable; No adenopathy or JVD Cardiovascular: Regular tachycardia Respiratory: Rhonchi bilat Abdomen: Soft, Nontender, Distended and Positive bowel sounds Extremities: Edema- No Peripheral Pulses- Present all extremities Capillary Refill- greater than 3 seconds, 5 seconds Skin: Abnormalities- clammy, generalized pallor VENTILATOR INFORMATION: WEANING DATA: Settings: Invasive Ventilator Mode: Assist Control;Continuous Mandatory Ventilation (04/14/18 1358) %FIO2: 100 (with sats in 80s increases oxygen to 100%) Set Ventilator Respiratory Rate (BPM): 14 Tidal Volume Set (mL): 500 PEEP/CPAP (cm H2O): 5 Patient Data: Peak Inspiratory Pressure (cm H2O): 22 Weaning Data: HEMODYNAMIC DATA: SBP 140-180, HR sinus tachycardic 130-140 Data: BLOOD GAS: No results for input(s): VPH, VPC2, VPO2C, RESPHCO3, BASEX, K4ASIDMI, PH, PCO2, RESPHCO3, BASEX, [id number] in the last 168 hours. Invalid input(s): PO2C CBC: Recent Labs 04/14/18 1415 WBC 21.54* HB 8.1* HCT 25.3* PLT 120* MCV 94.8 COAG: Recent Labs 04/14/18 1415 INR 1.31* BMP: Recent Labs 04/14/18 1415 GLUC 494* NA 135* K 5.3* CHLOR 102 CO2 22 ANION 16 BUN 73* CREAT 2.21* CHEM: Recent Labs 04/14/18 1415 ALB 2.7* TPROT 6.2* CA 8.0* HEPATIC: Recent Labs 04/14/18 141 ALKPHOS 76 ALT 29 AST 29 TBILI 0.7 URINALYSIS:No results for input(s): PH, SPGR, UGLUC, UBILI, UKET, UHB, UPROT, UROBIL, UWBC, SSA in the last 168 hours. Invalid input(s): NITR CARDIAC: No results for input(s): CKTEST, CKMB, CKMBP, TROPT, PBNP in the last 168 hours. CHEST X RAY: ET tube in place above the level of the bethany radioopaque tube extending below the level of the diaphragm No obvious consolidations, pleural effusions, airspace opacities ASSESSMENT: Acute blood loss anemia Upper GI bleed Tachycardia Lactic Acidosis Hyperglycemia, DKA? HAGMA Coagulopathy Elevated troponin, likely demand mismatch Tobacco use disorder HTN Hx alcohol use Hx cirrhosis Hx Type II DM Hx HTN Hx COPD PLAN: Neuro -sedation with propofol gtt to target RASS -2-0 -Lorazepam 1-2mg IV PRN for withdrawal symptoms including agitation, seizure, tremor -thiamine and folic acid Cardio -will give IVF -monitor on telemetry -trend troponins, not a candidate for antiplatelet or anticoagulation given bleeding -EKG after procedure Respiratory -continue full ventilatory support -check VBG -given history of COPD will start on bronchodilators, takes inhalers at home -follow up CXR GI -IV 40 mg PPI BID -octreotide gtt -urgent bedside EEG -GI c/s Renal -daily BMP -monitor urine output -IVF -trend lactic acid Endocrine -hyperglycemia - states not taking insulin at home for the last few days -HAGMA, could be due to lactic acidosis in the setting of active bleeding -check serum and urine ketones -will started insulin gtt for hyperglycemia protocol -hemoglobin check q2hrs -If ketones + will change to DKA protocol Hemonc -s/p 2 units PRBC, 2 units FFP -INR 1.31 -Hgb 8.1, platelet 120 -stat type and screen ID -aztreoam and flagyl DVT PPx -SCDs Code status: full code Family/ NOK details: Spoke with Sushila Villafana regarding patient's conditio, agreeable to pursuing aggressive care presently. Made aware of need for upper endoscopy. Questions answered at present. Contact info as below Sushila Villafana Cell/home: [phone] Work: (4AM-1PM): [phone] PATIENT CHECKLIST ? Are restraints necessary: Yes. Order written? Yes ? VTE prophylaxis administered? No. Contraindicated. ? Stress ulcer prophylaxis? Yes SIGNATURE: Michelle Prabhakar DO DATE: April 14, 2018 TIME: 3:09 PM PAGER/CONTACT #: [phone] [facility] STAFF PHYSICIAN NOTE OF PERSONAL INVOLVEMENT IN CARE I have reviewed the documentation by the resident and I personally participated in the jang components. I have discussed the case and management of the patient's care. The following comments revise or confirm relevant jang components of the note. Extensive time at bedside for assessment and procedures Per report from [facility] ED - very low BP on presentation - 60/palp Old blood in drainage site of tony tube. Connecting to suction - no more bloody drainage or fluid able to be w With GI attending we ensured deflation of all balloon ports. No volume was able to be withdrawn. CXR and KUB did not clearly show balloon inflation prior to deflating balloon told us that he has history of cirrhosis and has allergy to PCN. Notes from [facility] also suggest allergy to FQ. I was present for entire GI procedure and coordinated care with general surgery, GI, [facility] as part of evaluation Mildly distended abdomen and no crepitus prior to Tony removal and similarly distended after EGD and placed OGT endoscopically with GI assistance IMPRESSION: Critical Care Documentation: The patient has the following organ/system impairment(s): Circulatory shock 1. Acute hypercapnic and hypoxic respiratory failure 2. Mixed acidosis - severe 3. Hyperglycemia 4. Acute on chronic liver injury 5. Acute on chronic kidney injury 6. Possible anoxic/hypoperfusion brain injury 7. Acute encephalopathy - mixed causes 8. Hyperammonemia 9. COPD, tobacco abuse MMP PLAN: Antibiotics , Bronchodilators , Vasopressors, Ventilatory support , Surgery vs endoscopic intervention needed and insulin gtt. High risk for progressive multisystem organ failure and long discussion with multiple services at [facility] Guarded outlook Continue resuscitation, hemodynamic support and correction of metabolic disorders until transferred to [facility] updated to all events and questions answered Discussed with staff/ patient/ family This patient has a high probability of sudden, clinically significant deterioration, which requires the highest level of physician preparedness to intervene urgently. I managed/supervised life or organ supporting interventions that required frequent physician assessment. I devoted my full attention to the direct care of this patient for the amount of time indicated below. Time I spent with family or surrogate(s) is included only if the patient was incapable of providing the necessary information or participating in medical decision making. Time devoted to teaching is not included. Time spent providing critical care services: 120 minutes excluding procedures. SIGNATURE: Lita Nath Jr, MD [facility] TIME of SERVICE: 4:41 PM CHEST 1 VIEW Observed: 04/14/2018 Status: F Source: [facility] 3:00 HEALTH SYSTEM REPOSITORY Performed at [facility] APPROVED BY: Raheem Stafford MD EXAMINATION: CHEST RADIOGRAPH (SINGLE VIEW AP OR PA) Clinical History: Shortness of breath M: [id number] Comparison: None RESULT: Lines, tubes, and devices: A feeding tube passes into the distal esophagus at the gastroesophageal junction. An endotracheal tube is identified with its tip 5 cm above the bethany. EKG leads overlie the chest. Lungs and pleura: There is some right lower lobe atelectasis medially. No consolidation. No lung mass. No pleural effusion. Cardiomediastinal silhouette: Normal cardiomediastinal silhouette. Other: No other abnormality is appreciated. IMPRESSION: No acute radiographic abnormality. ABDOMEN 1 VIEW Observed: 04/14/2018 Status: F Source: [facility] 3:00 PM HEALTH SYSTEM REPOSITORY Performed at [facility] APPROVED BY: Raheem Stafford MD EXAM TITLE: ABDOMEN 1 VIEW DATE: 04/14/2018 14:54 COMPARISON: None. CLINICAL INDICATION/HISTORY: The patient is a 52-year-old male who is had a feeding tube placed. TECHNIQUE: A single view of the abdomen centered on the hemidiaphragm is presented. FINDINGS: No abnormality dilated bowel loops are noted. The feeding tube passes to the distal esophagus just above the gastroesophageal junction. There is no abnormal calcifications. The bony structures appear intact. IMPRESSION: The feeding tube tip is in the distal esophagus. No other significant abnormalities are appreciated on the abdominal film. URINALYSIS ROUTINE Collected: 04/14/2018 Status: F Source: [facility] 2:55 PM HEALTH SYSTEM REPOSITORY TYPE CODE TESTS RESULT OUT OF RANGE REFERENCE UNITS LAB COLOR(LOIN C) Urine Color YELLOW LAB APPUR(LOIN C) Urine Appearance CLEAR LAB GLUUR(LOIN Negative mg/dL C) Abnormal Glucose Urine >=1000 LAB KETON(LOIN Negative mg/dL C) Ketone Urine NEGATIVE LAB HGBUR(LOIN Negative C) Hemoglobin,Urin NEGATIVE e LAB PROTU(LOIN Negative mg/dL C) Protein Urine NEGATIVE LAB NITRI(LOIN Negative C) Nitrites Urine NEGATIVE LAB BILIU(LOIN Negative C) Bilirubin Urine NEGATIVE LAB SPG(LOINC) 1.005-1.030 Specific 1.021 [place], Ur LAB PHUR(LOINC 5.0-8.0 ) pH,Urine 5.0 LAB UROBI(LOIN 0.0-1.0 EU/dL C) Urobilinogen,Ur 0.2 LAB LEUKO(LOIN Negative C) Leukocytes NEGATIVE Esterase LAB RBCU1(LOIN 0.0-5.0 /hpf C) RBC,Urine 1.2 LAB WBCU1(LOIN 0.0-5.0 /hpf C) WBC, Urine 0.4 LAB EPIT1(LOIN 0.0-5.0 /hpf C) Ep Cells Urine 1.2 LAB BACT1(LOIN None C) Bacteria Urine NONE LAB HYCA1(LOIN 0.0-1.0 /lpf C) High Hyaline Cast 1.2 Performed By: #### URIN2 #### [place] [address] UR/SERUM DRUG SCREEN Collected: 04/14/2018 Status: F Source: [facility] 2:55 PM HEALTH SYSTEM REPOSITORY TYPE CODE TESTS RESULT OUT OF REFERENCE UNITS RANGE LAB ACTM(LOINC 10.0-30.0 mg/L ) Serum Acetaminophen Low 3.0 LAB SALI(LOINC 2.8-20.0 mg/dL ) Serum Salicylate Low < 1.7 LAB ALCO2(LOIN mg/dl C) Serum Alcohol < 3 LAB UAMP(LOINC Non-Detected ) Urine Amphetamine Non-detecte d LAB UBARB(LOIN Non-Detected C) Urine Barbiturates Non-detecte d LAB UBENZ(LOIN Non-Detected C) Urine Benzodiazepine Non-detecte d LAB UCOC(LOINC Non-Detected ) Urine Cocaine Metab see below Result Comment: Detected (unconfirmed) LAB UOPI(LOINC) Non-Detected Non-detected Urine Opiate LAB UPCP(LOINC) Non-Detected Non-detected Urine PCP LAB UTHC2(LOINC) Non-Detected see below Urine THC Result Comment: Detected (unconfirmed) Urine Drug Cutoff Levels Urine Amphetamine 500 ng/mL Urine Barbiturate 200 ng/mL Urine Benzodiazepines 200 ng/mL Urine Cocaine 150 ng/mL Urine Phencyclidine (PCP) 25 ng/mL Urine Opiates 300 ng/mL Urine THC 50 ng/mL The results of these analytes are unconfirmed and reported qualitatively as detected or non-detected relative to the cutoff value. Detected results indicate the sample is likely to contain the analyte. Non-detected results indicate that either the sample does not contain the analyte or it is present in concentrations below the cutoff level. This drug screen should be used for medical diagnostic purposes only. Performed By: #### DRUG3 #### [place] [address] BETA HYDROXYBUTYRATE Collected: 04/14/2018 Status: F Source: [facility] [address] [place] [address] REPOSITORY TYPE CODE TESTS RESULT OUT OF REFERENCE UNITS RANGE LAB BHB(LOINC) 0.02-0.27 mmol/L Beta Hydroxybutyrate High 0.31 Performed By: #### BHB #### [place] [address] QUANTIFERON (RAPD TB) Collected: 04/14/2018 Status: F Source: [facility] 2:55 [facility] REPOSITORY TYPE CODE TESTS RESULT OUT OF REFERENCE UNITS RANGE LAB QUANX(LOIN C) Quantiferon (Rapd TB) SEE BELOW Result Comment: TB NIL 0.02 IU/mL TB1 Ag minus Nil 0.00 <0.35 IU/mL TB2 Ag minus Nil 0.00 <0.35 IU/mL Mitogen minus Nil 1.58 TB Result Negative NEGAT Interpretation SEE BELOW No evidence of current or previous infection with Mycobacterium tuberculosis. Performing Laboratory: [facility] [address] [place] [address] Performed By: #### QUANX #### [place] [address] OPERATIVE NO Observed: 04/14/2018 Status: COMPLETED Source: [place] 2:50 PM CLINIC OTHER CAMPUS REPOSITORY HNO ID: [id number] Author: Clarence Jensen Service: Gastroenterology Author Type: Physician Type: Operative Report Filed: 04/14/2018 5:16 PM Note Text: OPERATIVE/PROCEDURE REPORT LOG ID: [id number] Surgery/Procedure Date: 04/14/2018 Incision/Procedure Start Time: 3:30 PM Incision Close/Procedure End Time: 4:20 PM Surgeon(s)/Proceduralist(s) and Bin Tripper Operator(s): Surgeon(s) and Role: * Clarence Jensen - Primary No Additional Staff Procedure(s): Esophagogastroduodenoscopy (EGD) Anesthesia: Monitored Anesthesia Care Brief History: UGI bleed Procedure Details: The patient was placed in the left lateral decubitus position. A bite block was placed and medications administered as above. The Olympus gastroscope was used to intubate the oropharynx and esophagus with ease. We proceeded down to the second part of the duodenum. The duodenal mucosa and bulb appeared normal. We then withdrew into the stomach and visualized a grossly normal antrum and body w old blood residue. Retroflexion was performed and this showed blood and clot in the fundus that did not reaccumulate and no obvious gastric varices. The squamocolumnar junction, GE junction was at 45 cm. There were grade 2 esoph varices, 2 columns w 1/2 columns w/ some bleb like areas, but nothing actively bleeding. From 31-38 cm there appeared to be a large clot overlying what looks like a large esoph tear/laceration. One area seemed lance deep. I elected not to band given these findings and no active bleeding. We did place an NG tube under endoscopic guidance into the stomach. The scope was then eventually withdrawn and the patient tolerated the procedure well. Pre-Op/Pre-Procedure Diagnosis: as above Post-Op/Post-Procedure Diagnosis: 1. Esophageal laceration suspected between 31-38 cm, Boerhaave's syndrome vs. related to [place] tube 2. Grade 2 esophageal varices w/o active bleeding Specimens: See above EBL: None Complications: as above, no crepitus on exam Recommendations:1. Chest and abd CT's 2. Consider transfer to [facility] main dep on CT surgery discussion here. Gen surgery was consulted and at bedside during most of the procedure. 3. Cont Pantoprazole and octreotide gtts. The primary surgeon/proceduralist performed the entire procedure. Clarence Jensen MD SIGNATURE: Clarence Jensen MD PATIENT NAME: Lazaro Villafana DATE: April 14, 2018 TIME: 4:59 PM PAGER/CONTACT #: [phone] HEMOGRAM/DIFF Collected: 04/14/2018 Status: F Source: [facility] 2:15 PM HEALTH SYSTEM REPOSITORY TYPE CODE TESTS RESULT OUT OF REFERENCE UNITS RANGE LAB WBC(LOINC) 4.23-9.07 thou/cmm WBC High 21.54 LAB RBC(LOINC) 4.63-6.08 mil/cmm Low RBC 2.67 LAB HGB(LOINC) 13.7-17.5 g/dL Low Hgb 8.1 LAB HCT(LOINC) 40.1-51.0 % Low Hct 25.3 LAB MCV(LOINC) 83.2-95.6 fl MCV 94.8 LAB MCH(LOINC) 25.7-32.2 pg MCH 30.3 LAB MCHC(LOINC 32.3-36.5 % ) Low MCHC 32.0 LAB RDW(LOINC) 11.6-14.4 % RDW 13.0 LAB RDWSD(LOIN 36.1-45.8 fl C) RDW SD 44.7 LAB PLT(LOINC) 141-365 thou/cmm Low Platelet 120 LAB MPV(LOINC) 8.7-12.0 fl MPV High 12.2 LAB SEG(LOINC) % Seg Neutrophil 67.8 LAB IGRE(LOINC % ) Immature Grans 1.30 LAB LYMPH(LOIN % C) Lymphocyte 22.1 LAB MNO(LOINC) % Monocyte 7.8 LAB EOSIN(LOIN % C) Eosinophil 0.8 LAB BASO(LOINC % ) Basophil 0.2 LAB SEGN(LOINC 1.78-5.38 thou/cmm ) Abs. High Neut (ANC) 14.60 LAB IGAB(LOINC 0.00-0.05 thou/cmm ) Abs High Immature Grans 0.28 LAB LYMN(LOINC 0.84-2.85 thou/cmm ) Abs. High Lymph 4.76 LAB MONON(LOIN 0.30-0.82 thou/cmm C) Abs. High Hendry 1.68 LAB EOSN(LOINC 0.04-0.54 thou/cmm ) Abs. Eosin 0.17 LAB BASON(LOIN 0.01-0.08 thou/cmm C) Abs. Baso 0.04 Result Comment: Smear scanned; tech agrees with automated differential LAB PATH(LOINC) Interpreted by See below Result Comment: Juancarlos Dunn M.D., Pathologist Performed By: #### [id number] #### [place] [address] PROTIME Collected: 04/14/2018 Status: F Source: [facility] 2:15 PM HEALTH SYSTEM REPOSITORY TYPE CODE TESTS RESULT OUT OF REFERENCE UNITS RANGE LAB PTI(LOINC) 9.7-13.0 sec Prothrombin High Time 13.4 LAB INR(LOINC) 0.90-1.30 INR High 1.31 Result Comment: Note: Reference Range Change Vitamin K Antagonist (VKA) Therapeutic Range: INR 2 to 3 (Target INR of 2.5) Note: For patients treated with VKA drugs, such as warfarin, the [place] [employer] 2012 Guideline recommends a therapeutic INR range of 2 to 3 (target INR of 2.5). This recommendation includes high-risk patients with antiphospholipid syndrome with previous arterial or venous thromboembolism, current-generation mechanical or bioprosthetic aortic heart valve replacement. VKA Therapeutic Range for some Mechanical Valve Replacement: INR 2.5 to 3.5 (Target INR of 3) Note: Patients with mechanical aortic valve replacement and additional risk factors for thromboembolic events (atrial fibrillation, previous thromboembolism, LV dysfunction, hypercoagulable conditions) or an older generation mechanical AVR (i.e., ball in-Cage) or any mechanical MVR should have a INR therapeutic range of 2.5 to 3.5 target INR of 3). Serjio GH, et al. Chest 2012; 141:7S-47S Rashida RA et al. JACC 2017; 70: 252-289 Performed By: #### PT #### [facility] [address] [place] [address] LACTIC ACID Collected: 04/14/2018 Status: F Source: [facility] 2:15 HEALTH SYSTEM REPOSITORY TYPE CODE TESTS RESULT OUT OF REFERENCE UNITS RANGE LAB LAC(LOINC) 0.4-2.0 mEq/L High alert Lactic Acid 4.6 Performed By: #### LAC #### [facility] [address] [place] [address] COMPREHENSIVE PANEL Collected: 04/14/2018 Status: F Source: [facility] 2:15 PM HEALTH SYSTEM REPOSITORY TYPE CODE TESTS RESULT OUT OF REFERENCE UNITS RANGE LAB NA(LOINC) 136-145 mEq/L Low Sodium Blood 135 LAB K(LOINC) 3.5-5.1 mEq/L Potassium High Blood 5.3 LAB CL(LOINC) 98-107 mEq/L Chloride Blood 102 LAB CO2(LOINC) 21-32 mEq/L CO2 Blood 22 LAB GLU(LOINC) 70-99 mg/dL Glucose High alert Blood 494 LAB BUN(LOINC) 7-18 mg/dL BUN Blood High 73 LAB CREA(LOINC 0.67-1.17 mg/dL ) Creatinine High Blood 2.21 LAB CA(LOINC) 8.5-10.1 mg/dL Low Calcium Blood 8.0 LAB ALB(LOINC) 3.4-5.0 g/dL Low Albumin Blood 2.7 LAB TP(LOINC) 6.4-8.2 g/dL Low Total Protein 6.2 LAB AST(LOINC) 9-37 U/L AST-SGOT Blood 29 LAB ALT(LOINC) 12-78 U/L ALT-SGPT Blood 29 LAB ALKP(LOINC 46-116 U/L ) Alk Phosphatase 76 LAB BILIT(LOIN 0.2-1.0 mg/dL C) Total Bilirubin 0.7 LAB ANGAP(LOIN 8-16 C) Anion Gap 16 Performed By: #### P14 #### [place] [address] TROPONIN I Collected: 04/14/2018 Status: F Source: [facility] 2:15 PM HEALTH SYSTEM REPOSITORY TYPE CODE TESTS RESULT OUT OF REFERENCE UNITS RANGE LAB TROP(LOINC) 0.015-0.045 ng/ml High Troponin I 0.325 Performed By: #### TROP #### [facility] [address] [place] [address] VENOUS BLOOD GAS Collected: 04/14/2018 Status: F Source: [facility] 2:15 PM HEALTH SYSTEM REPOSITORY TYPE CODE TESTS RESULT OUT OF REFERENCE UNITS RANGE LAB TEMPC(LOIN C) Temperature 37.0 LAB PHV(LOINC) 7.320-7.420 Low pH Venous alert 7.111 Result Comment: RESULT RECHECKED LAB PCO2I(LOINC) 38.0-49.0 mm Hg High PCO2 Venous 72.0 LAB PO2VI(LOINC) 35.0-45.0 mm Hg High PO2 Venous 60.1 LAB HCO3C(LOINC) 22.0-26.0 mEq/L HCO3- 22.4 LAB BASE(LOINC) -2.5 to 2.5 mEq/L Base Excess -7.1 LAB O2%V(LOINC) 70.0-80.0 % O2% Sat Venous 79.0 Performed By: #### VBG #### [facility] [address] [place] [address] TYPE AND SCREEN Collected: 04/14/2018 Status: F Source: [facility] 2:15 PM HEALTH SYSTEM REPOSITORY TYPE CODE TESTS RESULT OUT OF REFERENCE UNITS RANGE LAB ABO(LOINC) B ABO Group LAB CYTOTECHNOLOGIST/HISTOTECHNOLOGIST(LOINC ) RH Type Positive LAB ABSCR(LOIN C) Antibody NEGATIVE Screen LAB BBCMT(LOIN C) Comment See Below Result Comment: Screen &/or Xmatch expires in 3 days at 12 midnight. Redraw patient at that time. Performed By: #### T&S #### [place] [address] NURSING PROG Observed: 04/14/2018 Status: COMPLETED Source: [place] 2:00 PM CLINIC OTHER CAMPUS REPOSITORY HNO ID: [id number] Author: Jerilyn Ferreira) BLAYNE Gamez Service: Nursing Author Type: Registered Nurse Type: Nursing Progress Note Filed: 04/14/2018 9:12 PM Note Text: Nursing Progress: Topic: RESTRAINT NON-VIOLENT PATIENT NAME: Lazaro Villafana PATIENT LOCATION: [place] [address] [address]* The patient demonstrates as evidenced by the following behaviors pt reaching for ET tube which pose an imminent danger to self or others. The following interventions were attempted but were not effective in protecting the patient's safety: Next, a comprehensive assessment was performed and warranted placing the patient in , the least restrictive restraint needed to protect the patient's safety. Ongoing safety assessments and evaluation for earliest removal of restraints will be performed. DATE: April 14, 2018 TIME: 9:09 PM Jerilyn Gamez RN Observed: 04/14/2018 Status: F Source: [facility] MRSA SCREEN 2:00 PM HEALTH SYSTEM REPOSITORY Test performed at [facility] No MRSA detected. Performed By: #### MRSA #### [facility] [address] [place], [place] [address] EMERGENCY DEPARTMENT Observed: 04/14/2018 Status: F Source: [place] SUMMARY 1:01 PM [facility] REPOSITORY [facility] Medical Records Department [address] [place] [address] Emergency Department Summary 04/14/18 1255 MR#: [id number] Acct: [id number] Name: LAZARO VILLAFANA Rep #: [id number] : 1965 52 From: Huseyin Corral MD PCP: Rene Mckee MD Status: REG ER - ER Visit Summary Date of Service: 04/14/18 Chief Complaint: Vomiting bright red blood and lightheadedness History of Present Illness: The patient is a 52 M who has history of diabetes and history of drinking. According to is not had as much to drink past month. He noted bright red blood in emesis last night. He has maroon to black stool this morning. He presents because of lightheadedness and not feeling well. He does complain of shortness of breath. Denies chest pain. He states he has been bruising easily the past year. He denies fever, chills night sweats. Per old records he has a positive PPD and may have history of TB. Uncertain whether he is been treated. According the he may have started treatment. She does not know if he completed or not. He does complain of abdominal pain the epigastric area. He has no other complaints. Physical Examination: Systolic blood pressure 62. He is tachycardic tachypnic appears pale and jaundiced possibly. HEENT exam is remarkable for pale conjunctival, pale lips and tongue. Trachea midline. Lungs reveal end inspiratory rales. Heart is rapid and regular. Abdomen is soft slightly tympanitic mild tenderness in the epigastrium. He has maroon black stool. Bright red blood noted in the mouth and emesis. Neuro exam is nonfocal. Test Results: EKG reveals a sinus tachycardia no acute ischemic changes. Hemoglobin 7.1. White count is 13.3. Platelet count is normal. Glucose is 611 with an anion gap. Lactate 6.2. Troponin is elevated 0.38. Albumin is 2.2. ABG reveals AA gradient and metabolic acidosis. Emergency Department Course and Treatment: Patient was moved from 117 to room 1. Attempt to Place [place] tube was unsuccessful with patient awake. Because he remained hypotensive after 2 L of fluid he was prepped for oral tracheal intubation. He received 20 mg of etomidate and 50 mg rocuronium. This was to facilitate placement of [place] tube for presumed variceal bleed since he is vomiting bright red blood in his history of cirrhosis. Patient was oral tracheal intubated with a 7.5 endotracheal tube. Blood was noted above the cords and coming from the esophagus. There was appropriate color change on capnometer. Good breath sounds noted bilaterally. [place] tube was placed by me. Maroon gastric contents was aspirated. The gastric balloon was inflated 200 cc and pressure was applied. Patient was treated with 2 units of packed RBCs for hemorrhagic shock. He will receive 2 units of FFP as well. He was given Protonix bolus and placed on a Protonix drip. An octreotide bolus and placed on octreotide drip for presumed variceal bleed. For sedation he was placed on a ketamine drip because of hemodynamic instability. He will also received 1 g of Rocephin. Treatment Plan: Spoke with patient prior to intubation what need to be done as well as . They understood the criticalness of his condition. [place] [facility]. Spoke with body finisher who accepted patient. [facility] air [facility]. Disposition: Direct admit ICU [facility]. Impression: 1. Hemorrhagic shock secondary to GI bleed, presumed varices 2. Hyperglycemia 3. History of cirrhosis 4. History of positive PPD 5. Alcohol induced coagulopathy 6. Critical care time 37 minutes This note was generated with Scurri dictation software. It may contain incorrect words, spelling, and punctuation that were not noted in review of the chart prior to signing ED Disposition - Plan for ED Patient: Chief Complaint: GI Bleed Referrals: Rene Mckee MD [Primary Care Provider] - What to do if you have Problems For any increased pain, shortness of breath, bleeding, nausea or vomiting, chest pain, or any unexpected problems, contact your Primary Care Provider. Call [facility] ([phone]) or report to the closest Emergency Room. Call 911 if necessary. 04/14/18 1301 <Electronically signed by Huseyin Corral MD> Date Huseyin Corral MD Cosigner Signature (If Indicated): Date CC: Rene Mckee MD QUANTIFERON TB-GOLD+ Collected: 04/14/2018 Status: F Source: [place] 12:55 PM [facility] REPOSITORY TYPE CODE TESTS RESULT OUT OF RANGE REFERENCE UNITS LAB L3400.8025 . Normal QFT TB Comment GOLD Result Comment: The QuantiFERON-TB Gold Plus result is determined by subtracting the Nil value from either TB antigen (Ag) tube. The mitogen tube serves as a control for the test. LAB L3400.8035 . IU/mL Normal QFT TB1+ AG 0.02 [facility] L3400.8045 . IU/mL Normal QFT TB2+ AG 0.02 [facility] L3400.8055 . IU/mL Normal QFT NIL VALUE 0.02 LAB L3400.8065 . IU/mL Normal QFT MITOGEN > 10.00 [facility] L3400.8075 Negative Normal QFT TB POS Negative CRIT Result Comment: The specimen received for QuantiFERON testing was incubated by the ordering institution. Specific procedures outlined in our Directory of Services and in the package insert for the QuantiFERON Gold (In Tube) test must be followed to enable for proper stimulation of cells for the production of interferon gamma. Performed at: - [facility] [address] [id number] Metal Hardener: El Neri PhD, Phone: [phone] Performed By: #### L3400.8000 #### [facility] (refer to report for specific site) refer to report for address and phone number CHEST 1 VIEW Observed: 04/14/2018 Status: F Source: [place] (PORTABLE) 12:46 PM [facility] REPOSITORY [facility] Imaging Services [address] [place] [address] Chest 1 View (Portable) MR#: [id number] Acct: [id number] Name: LAZARO VILLAFANA Rep #: [id number] : 1965 M 52 From: Sarahi Mai MD PCP: Rene Mckee MD Status: DEP ER Study: Chest 1 View (Portable) Date of Exam: 04/14/18 Exam# [id number] Ordering Dr: Huseyin Corral MD ADDENDUM by Sarahi Mai MD on 04/14/18 at 1537 ADDENDUM ADDENDUM: Discussed the case in detail with the ordering physician. Circumscribed oval gas pocket within the mediastinum is consistent with the inflated balloon of a [place] tube, in the setting of tamponade of esophageal varices. The patient had a tight esophageal hiatus with no hiatal hernia on prior CT imaging of 12/30/2017. In retrospect there appear to be very tiny esophageal varices within the hiatus. We discussed the position of the [place] tube balloon. There is no other apparent gas within the mediastinum. Electronically Signed: Sarahi Mai MD at 15:37 EST Tel , Service support , N.B. : The above information has been verbally conveyed by Sarahi Mai MD to Huseyin Corral MD, AA, on 04/14/2018 15:29:54 (ET). 04/14/18 1537 Date cc: Rene Mckee MD; Huseyin Corral MD * Signed ADDENDUM by Sarahi Mai MD on 04/14/18 at 1537 RAD/Chest 1 View (Portable) 04/14/18 1543 Date cc: Rene Mckee MD; Huseyin Corral MD * Signed STUDY: X-RAY CHEST REASON FOR EXAM: Male, 52 years old. Blood in stool and emesis since last night. Tube placement. TECHNIQUE: Portable chest AP COMPARISON: X-ray chest 02/27/2017, CT chest 12/30/2017. FINDINGS: Endotracheal tube tip approximately 3.6 cm cephalad of the bethany. Nasogastric tube traverses the esophagus through the esophagogastric junction. The tip lies within the gastric fundus just beyond the esophagogastric junction. Advancement of the nasogastric tube is recommended by several centimeters. The lungs are bilaterally clear. Symmetrically and normally inflated. No cardiomegaly. Normal mediastinal silhouette. Within the central chest projecting over the mediastinum, there is an air-filled cavity, just below the level of the bethany, measuring approximately 6.6 x 8.3 cm. This appears to slightly elevate the right mainstem bronchus. This suggests the presence of mediastinal gas. In the setting of emesis, this may indicate esophageal perforation. No acute osseous or upper abdominal process. RAD/Chest 1 View (Portable) IMPRESSION: Mediastinal gas, concerning for esophageal perforation. CT chest is recommended. With contrast if possible. N.B. : The above information has been verbally conveyed by Sarahi Mai MD to Huseyin Corral MD, AA, on 04/14/2018 15:29:54 (ET). Electronically Signed: Sarahi Mai MD at 15:26 EST Tel , Service support , CC: Rene Mckee MD; Huseyin Corral MD Steel Turner: Signed BLOOD GASES BY [facility] Collected: 04/14/2018 Status: F Source: [place] [facility] TYPE CODE TESTS RESULT OUT OF RANGE REFERENCE UNITS LAB L9000.9990 Normal BLD GAS TYPE ART LAB L9001.1000 Normal SITE R Radial LAB L9001.1010 Normal VERO TEST POS LAB L9001.1050 O2 Normal Delivery Dev NRB Mask LAB L9001.1055 /min Normal LPM 15.0 LAB L9001.1104 Normal Results To ED LAB L9001.1105 Normal Time Given 1211 LAB L9001.1110 7.35-7.45 pH Normal - I-STAT 7.36 LAB L9001.1210 35-45 mmHg Low pCO2 - ISTAT 31.1 LAB L9001.1310 75-100 mmHG Low PO2 I-STAT 66 LAB L9001.2300 22-26 mmol/L Low HCO3 ISTAT 17.7 LAB L9001.2400 -2 to +2 mmol/L Low BE ISTAT -8 LAB L9001.2415 mmol/L Normal TOTAL CO2 19 ISTAT LAB L9001.2425 95-99 % Low SO2 ISTAT 92 Performed By: #### L9000.0800 #### [facility] Laboratory Point of Care [address] [place] [address] CBC W/DIFF, AUTOMATED Collected: 04/14/2018 Status: F Source: [place] 11:40 AM [facility] REPOSITORY TYPE CODE TESTS RESULT OUT OF RANGE REFERENCE UNITS LAB L100.1000 4.4-11.0 K/mm3 High WBC 13.3 LAB L100.1200 4.6-6.2 M/mm3 Low RBC 2.37 LAB L100.1300 13.0-16.5 g/dl Low HGB 7.1 LAB L100.1400 40-54 % Low HCT 21.6 LAB L100.1500 80-94 fL Normal MCV 91.1 LAB L100.1600 27.0-32.0 pg Normal MCH 30.0 LAB L100.1700 32-36 g/gl Normal MCHC 32.9 LAB L100.1810 11.6-14.6 % Normal RDW CV 13.6 LAB L100.1820 35.1-43.9 fl High RDW SD 45.0 LAB L100.1900 150-450 K/mm3 Low PLT 87 LAB L100.2000 6.2-12.0 fl Normal MPV 11.1 LAB L100.2100 47-70 % Normal NEUT% 63.6 LAB L100.2200 19-41 % Normal LY% 25.9 LAB L100.2300 0-10 % Normal MONO% 9.4 LAB L100.2400 0-5 % Normal EO% 0.6 LAB L100.2500 0-1 % Normal BASO% 0.3 LAB L100.2550 0.0-0.9 % Normal IM GRAN % 0.200 Result Comment: IG% - Immature Granulocytes (promyelocytes, myelocytes and metamyelocytes) > 1% indicates that a LEFT SHIFT is Present. LAB L100.2620 2.0-7.7 X10 3/uL High Absolute Neut 8.4 LAB L100.2720 0.83-4.51 X10 3/ul Normal Absolute Lymph 3.43 Performed By: #### L100.0100 #### [facility] [address] [place], [place], [id number] PROTHROMBIN TIME W/INR Collected: 04/14/2018 Status: F Source: [place] 11:40 AM [facility] REPOSITORY TYPE CODE TESTS RESULT OUT OF RANGE REFERENCE UNITS LAB L300.4150 11.7-14.9 SECONDS High PROTIME 19.9 LAB L300.4200 Normal INR 1.7 Performed By: #### L300.3900, L300.4310 #### [facility] [address] [place], [place], [id number] PARTIAL THROMBOPLAST Collected: 04/14/2018 Status: F Source: [facility] 11:40 AM [facility] REPOSITORY TYPE CODE TESTS RESULT OUT OF RANGE REFERENCE UNITS LAB L300.4310 24.1-36.2 Seconds Normal PTT 36.1 Performed By: #### L300.3900, L300.4310 #### [facility] [address] [place], [place], [id number] COMPREHENSIVE METABOLIC Collected: 04/14/2018 Status: F Source: [place] [facility]IL 11:40 AM [facility] REPOSITORY TYPE CODE TESTS RESULT OUT OF RANGE REFERENCE UNITS LAB L501.0100 74-106 mg/dL High alert GLU 611 Result Comment: Critical Result(s) Called at: 12:13:40 04/14/2018 by: Jovan Gamez to Sofie Zapata (RN) ER. Glucose result greater than or equal to 200 mg/dL suggests DIABETES MELLITUS per A.D.A. criteria. Please note revised GLUCOSE reference range effective 2017. LAB L501.1000 7-18 mg/dL High BUN 78 LAB L501.1100 0.70-1.30 mg/dL High CREAT,SERUM 2.91 Result Comment: The validity of the calculated GFR AND GFRAA in patients over 70 years has not been determined. Clinical correlation is essential. LAB L501.1110 >60 mL/min Low EST GFR 24 Result Comment: Non- GFR Calc LAB L501.1115 >60 mL/min Low EST GFR - AA 30 Result Comment: GFR Calc LAB L501.1255 ml/min Normal Estimated CRCL 31.36 LAB L501.1300 10-20 RATIO High BUN/CRE 26.8 LAB L501.1500 6.4-8. g/dL Low 2 T PROT 5.4 LAB L501.1800 3.2-5. g/dL Low 0 ALB 2.2 LAB L501.1950 2.2-4. g/dL Normal 2 GLOB 3.2 LAB L501.2000 0.9-2. RATIO Low 4 A/G 0.7 LAB L501.2200 8.5-10 mg/dL Low .1 CA 7.3 LAB L501.4100 15-37 U/L Normal AST 27 LAB L501.4305 45-117 U/L Normal ALK P 59 LAB L501.4405 16-61 U/L Normal ALT 27 LAB L501.4600 0.20-1 mg/dL Normal .00 T BILI 0.90 LAB L501.5300 136-14 mmol/L Low 5 NA 135 LAB L501.5600 3.5-5. mmol/L Normal 1 K 4.2 LAB L501.5900 98-107 mmol/L Normal CL 98 LAB L501.6100 21.0-3 mmol/L Normal 2.0 CO2 21.0 LAB L501.6200 5-15 High GAP 16 Performed By: #### L500.4050, L501.2450, L501.4010 #### [facility] [address] [place], [address] LIPASE Collected: 04/14/2018 Status: F Source: [place] 11:40 AM [facility] REPOSITORY TYPE CODE TESTS RESULT OUT OF REFERENCE UNITS RANGE LAB L501.2450 73-393 U/L High LIPASE 427 Performed By: #### L500.4050, L501.2450, L501.4010 #### [facility] [address] [place], [address] TROPONIN-I Collected: 04/14/2018 Status: F Source: [place] 11:40 AM [facility] REPOSITORY TYPE CODE TESTS RESULT OUT OF RANGE REFERENCE UNITS LAB L501.4010 <0.045 ng/mL High 0.383 TROPONIN-I Result Comment: TROPONIN-I EXPECTED VALUES <0.045 Negative 0.045 - 0.590 Consistent with Cardiac Damage > OR = 0.600 Critical Value Not every elevated troponin is indicative of WA. These values should be used with clinical judgement in examining the patient's clinical picture for diagnosis. To establish a diagnosis of WA versus myocardial injury, there must be a demonstrated rise and/or fall in the troponin values, in addition to ischemic symptoms, EKG changes, new regional wall motion abnormality, and/or angiographical evidence. PLEASE NOTE: REFERENCE RANGES EDITED 17 Performed By: #### L500.4050, L501.2450, L501.4010 #### [facility] [address] [place], [address] LACTIC ACID Collected: 04/14/2018 Status: F Source: [place] 11:40 AM [facility] REPOSITORY Order Comment: Yes/No query for Sepsis Lactate Rule Y TYPE CODE TESTS RESULT OUT OF REFERENCE UNITS RANGE LAB L503.6005 0.4-2.0 mmol/L High alert LACTIC ACID 6.2 Result Comment: Critical Result(s) Called at: 12:29:56 04/14/2018 by: Jovan Wells RN (ER). Performed By: #### L503.6005 #### [facility] [address] [place], [address] TYPE AND SCREEN Collected: 04/14/2018 Status: F Source: [place] 11:40 AM [facility] REPOSITORY TYPE CODE TESTS RESULT OUT OF RANGE REFERENCE UNITS LAB B10.0800 B Normal BLOOD TYPE GEL POSITIVE LAB B100.4000 Normal Antibody NEGATIVE Screen Performed By: #### B101.7450 #### [facility] [address] [place], [address] FFP Collected: 04/14/2018 Status: F Source: [place] 11:40 AM [facility] REPOSITORY TYPE CODE TESTS RESULT OUT OF REFERENCE UNITS RANGE LAB U100.0900 [id number] TRANSFUSED PRODUCT: Fresh Frozen Plasma COUNT: 2 Performed By: #### U100.0900 #### [facility] - refer to report for specific site LRBC Collected: 04/14/2018 Status: F Source: [place] 11:40 AM [facility] REPOSITORY TYPE CODE TESTS RESULT OUT OF REFERENCE UNITS RANGE LAB U100.0200 [id number] TRANSFUSED PRODUCT: Leuko-Reduced Red Blood Cells COUNT: 1 Performed By: #### U100.0200 #### [facility] Laboratory - refer to report for specific site LRBCI Collected: 04/14/2018 Status: F Source: [place] 11:40 AM [facility] REPOSITORY TYPE CODE TESTS RESULT OUT OF REFERENCE UNITS RANGE LAB U500.0600 [id number] TRANSFUSED PRODUCT: Irradiated/Leuko -Reduced RBC COUNT: 1 Performed By: #### U500.0600 #### [facility] Laboratory - refer to report for specific site HOSP Observed: 04/14/2018 Status: COMPLETED Source: [place] 12:00 AM [facility] REPOSITORY Patient:Lazaro Villafana MRN: <[id number]> Height:5' 10(1.778 m) Weight:226 lb 3.1 oz (102.6 kg) Outpatient Medications as of 05/01/18: amLODIPine (NORVASC) 10 mg tablet metFORMIN (GLUCOPHAGE) 500 mg tablet losartan (COZAAR) 50 mg tablet lactulose (DUPHALAC, CONSTULOSE) 10 gram/15 mL solution glyBURIDE (DIABETA) 5 mg tablet hydrOXYzine pamoate (VISTARIL) 50 mg capsule NORepinephrine (LEVOPHED) 16 mg in D5W 250 mL metroNIDAZOLE (FLAGYL) 500 mg/100 mL aztreonam (AZACTAM) 1 g in D5W 100 mL propofol infusion (DIPRIVAN) 10 mg/mL injection pantoprazole (PROTONIX) 40 mg injection octreotide 500 mcg in D5W 100 mL Admission/Clinic Administered Medications as of 05/01/18: dexmedetomidine 400 mcg in NaCl 0.9% 100 mL (PRECEDEX) perflutren lipid microspheres 1.1 mg/mL 1.3 mL injection (DEFINITY) Parenteral Nutrition - Adult sodium chloride 0.65 % 2 [place] (AYR, OCEAN) nasal ointment (CCHS) NORepinephrine 16 mg in D5W 250 mL (LEVOPHED) propofol infusion (DIPRIVAN) furosemide 500 mg in empty container, plastic bag 50 mL IV infusion (LASIX) dextrose 5% in water iv infusion fat emulsion infusion 20% (INTRALIPID) metoprolol 10 mg injection (LOPRESSOR) OLANZapine orally disintegrating 10 mg tab(s) (ZyPREXA ZYDIS) lidocaine 5 % 1 Patch (LIDODERM) lidocaine patch - REMOVE lidocaine - VERIFY PATCH labetalol 10 mg injection syringe (NORMODYNE) insulin glargine 20 Units pen (long acting) (LANTUS SOLOSTAR, BASAGLAR KWIKPEN) vancomycin iv piggyback 1 g in D5W 200 mL (VANCOCIN) aztreonam 2 g in D5W 100 mL MB+ (AZACTAM) heparin 5,000 Units injection fluconazole 400 mg in NaCl (iso-osmotic) 200 mL (DIFLUCAN) vancomycin dosing and monitoring per pharmacy insulin regular human injection (short acting) (NovoLIN R,HumuLIN R) potassium chloride iv piggyback 20 mEq/100 mL potassium chloride 20-80 mEq CUP magnesium sulfate in water 2 g in sterile water 50 ml dextrose 40 % 15 g glucagon 1 mg injection (GLUCAGEN) dextrose 50 % 12.5 g injection NaCl 0.9% 3-5 mL fentaNYL 50 mcg/mL 25-50 mcg injection (SUBLIMAZE) metroNIDAZOLE 500 mg PREMIX piggyback (FLAGYL) ipratropium-albuterol 3 mL nebulizer solution (DUONEB) pantoprazole 40 mg injection (PROTONIX) Problem List: Upper GI bleed [K92.2] GI bleed [K92.2] High anion gap metabolic acidosis [E87.2] Hemorrhagic shock (HCC) [R57.8] Hyperglycemia [R73.9] Alcoholic cirrhosis (HCC) [K70.30] COPD (chronic obstructive pulmonary disease) (HCC) [J44.9] Esophageal perforation [K22.3] Mild protein-calorie malnutrition (HCC) [E44.1] Hypernatremia [E87.0] Secondary thrombocytopenia [D69.59] Acute post-operative pain [G89.18] Acute respiratory insufficiency [R06.89] Consolidation of right lower lobe of lung (HCC) [J18.1] Tobacco abuse [Z72.0] Mediastinitis [J98.51] Fever [R50.9] Leukocytosis [D72.829] Severe protein-calorie malnutrition (HCC) [E43] Delirium due to general medical condition [F05] Hypotension [I95.9] Epistaxis [R04.0] Acute respiratory failure (HCC) [J96.00] Type II diabetes mellitus (HCC) [E11.9] History of hypertension [Z86.79] Hydropneumothorax [J94.8] CKD (chronic kidney disease) [N18.9] Portal hypertension (HCC) [K76.6] Allergies: Ciprofloxacin Penicillin Date Verified: 05/01/18 Lab Values Lab Value Units Date High Low POTA* 4.5 mmol/L 05/01/2018 5.1 3.7 DAVID* 25.0 % 04/30/2018 51.0 39.0 Progress Notes (CRITICAL CARE TRANSPRT): Regine De Leon APRN.CNP 04/16/2018 9:04 PM Signed Arterial Line PROCEDURE NOTE Patient: Lazaro Villafana Date: April 15, 2018 INFORMED CONSENT: Informed consent was not obtained due to clinical factors necessitating an emergent procedure. SAFE PRACTICE Sign in Communication: Emergent N/A. Time Out: The procedural team confirmed the Correct Patient, the Correct Procedure, the Correct Site and the Correct Position (if applicable) during the audible time out: Emergent N/A. Sign Out Communication: Emergent N/A. INDICATION FOR LINE PLACEMENT: Continuous blood pressure monitoring CONDITION OF LINE PLACEMENT: Sterile PRIMARY PROCEDURALIST: JANAE Segura PROCEDURE NARRATIVE Site Marked: Yes Vero?s Test positive Skin Preparation: Chlorhexidine Gluconate Barriers Used by Proceduralist and All Assisting Personnel: Yes Barriers Used: Sterile Gloves CATHETER PLACEMENT/PLACEMENT TECHNIQUE Anesthesia was not utilized d/t the emergent nature of the procedure. The left radial artery was cannulated with a 20 g arterial catheter. Number of attempts at insertion: 1 Bright red pulsatile blood exited catheter:No Appropriate wave form was noted: No Line Secured with: NA Sterile dressing applied and dated: No, unsuccessful attempt Estimated Blood Loss: None Procedure was performed while vehicle in motion: yes COMPLICATIONS: None. The patient tolerated the procedure well Successful Placement: no SIGNATURE: Regine De Loen APRN.CNP PATIENT NAME: Lazaro Villafana DATE: 04/14/18 Regine De Leon APRN.CNP 04/16/2018 9:04 PM Signed Critical Care Transport Note Patient Name: Lazaro Villafana Service Date: 04/14/18 Referring Physician: Portillo Referring Facility: [facility] Accepting Physician: Josefina Accepting Facility: [facility] SUBJECTIVE/CHIEF COMPLAINT: Hematemesis, Upper GI bleed REASON FOR TRANSPORT: Specialized tertiary and quaternary care for the patient's acute upper GIB condition not available at the referring facility. History of Present Illness: The following history is what was known to CCT team at time of given care and summarized through review of available medical records, patient/family interview and from referring physician and nursing report. Lazaro Villafana is a 52 year old male with a past medical history significant for significant ETOH abuse, mult-isubstance abuse, recent diagnosis of cirrhosis, esophageal varices, 2-3 PPD smoker, DM and COPD. He presented to [facility] initially today for evaluation of bright red blood in emesis. Per report, he had been feeling unwell for the past few days with loss of appetite and diarrhea. His reported that he has a history of heavy drinking but over the last few days, his alcohol consumption decr and yesterday drank 2 beers. He had an episode of dark red emesis last night and maroon to black stool this AM. He presented to the ED with c/o lightheadedness, dizziness and SOB. denies hx of GI bleed, but has nose bleeds occasionally and takes 2-3 ASA daily for back pain. He has a hx of a positive PPD, but has never been followed up or treated. In the [place] ED, he had massive emesis and a Tony tube was placed and he was intubated there for airway protection. Initial labs: INR 1.7, Hgb 7.1, WBC 13.1, Lactate 6.2, glucose 611, trop 0.36. He received 2 L NS IVF and 2 additional PRBC and 2 FFP. He was started on Protonix and Octreotide infusions and he was transferred then to [facility] for further care. On arrival to [facility] he was noted to be hypotensive (SBP in 60s), assumed to be bleeding and an emergent EGD was performed. Grade 2 varices were noted with no active bleed and at level 31-38 cm (scope depth) was noted a large clot overlying a large esophageal tear and NGT was placed. He was given 2 additional units of PRBC, Levo for hypotension, given Flagyl and Aztreonam for abx coverage, Protonix infusion was stopped, octreotide infusion continued. VBG 7.022/82.2/56.5/23.4, lactate 8.4, K+ 6.6, Na 136, BUN/Creat 73/2.66, Glucose 545, Ammonia 115, Tbili 0.7. He was started on Bicarb infusion, given 2 amps Bicarb. Currently he is on 25 mcg Levo, Octreotide, Propofol for sedation, Bicarb gtt, small amt dark red blood from NGT. At this time, the physician managing the patient requested transfer to the [facility] for tertiary and/or quaternary GI surgery services unavailable at the referring facility. The physician managing the patient requested the [facility] Critical Care Transport Team transport and treat the patient for the purpose of tertiary care, evaluation, and management of his Acute upper GI bleed, hemorrhage, hypovolemic shock, lactic acidosis, respiratory failure condition(s). Patient condition at time of exam was: Acutely ill and critically ill. Due to the unique circumstances of the patient, it was determined that this was the closest, most appropriate facility by referring physician. ROS: Could not obtain due to patient's mental status/critical illness PAST MEDICAL HISTORY: PAST MEDICAL HISTORY Diagnosis Date - Cirrhosis (HCC) - COPD (chronic obstructive pulmonary disease) (HCC) - Diabetes (HCC) - ETOH abuse - Hypertension PAST SURGICAL HISTORY: No past surgical history on file. ALLERGIES: Ciprofloxacin; Penicillin SOCIAL HISTORY: Social History Substance Use Topics - Smoking status: Current Every Day Smoker - Smokeless tobacco: Not on file - Alcohol use Yes FAMILY HISTORY: No family history on file. HOME MEDICATIONS: ASA PRN for back pain No other meds reported Medications Administered by Referring Facility: Norepinephrine 25 mcg/min Octreotide 50 mcg/hr Protonix (started in [place], has been DCd) Bicarbonate 1 amp/1000 ml - 125 ml/hr Insulin infusion Propofol 25 mcg/kg/min Flagyl 500 mg IV Aztreonam 1 gm IV Rocephin ([place]) PRBC 4 units (2 by [facility], 2 by [facility]) FFP 2 units ([facility]) LR 1.5 L IV fluids Thiamine 200 mg IV OBJECTIVE: Recent Labs, Diagnostics AND Procedure Reports reviewed as available. Referring Facility Labs CBC: WBC 20.86k Hgb 8.9 Hct 25.0 Plt 102K CHEMISTRY: Na 136 K 6.6 Cl 102 CO2 22 BUN 73 SCr 2.66 Glu 545 Ca 7.0 AG 19 Liver enzymes AST 28 ALT 27 AP 64 Tbili 0.7 TP 5.1 Alb 2.2 Cardiac Enzymes: Trop T 0.362 VBG: pH 7.022, PaCO2 82.2, PaO2 56.5, BiCarb 23.4, Lactate 8.4 Ammonia 115 Diagnostics AND Procedure Reports EC-lead not available to CCT at the time of transport CXR: (per OSH radiology report) ET tube in place above the level of the bethany. Radiopaque tube extending below the level of the diaphragm. No obvious consolidations, pleural effusions, airspace opacities. Procedure/Operative Report(s): EGD procedure - Reviewed Invasive Lines/Devices/Tubes Placed by Referring Facility: ETT 7.5, 25 at [facility] Mcclain cath PIV x 5 NGT PHYSICAL EXAM: Upon CCT Arrival at Referring Facility Vital Signs: HR 102bpm, BP 94/66(76)mmHg, RR 16, SpO2 100% Oxygen/Ventilator Settings: AC/VC rate 18, Vt 580, FiO2 80%, PEEP 6+ General appearance: Intubated, sedated, responsive to tactile stimulation. HEENT: normocephalic, PERRL, 2mm briskly reactive. Oropharynx clear, no plaques or exudates, Mucous membranes moist, Nasal mucosa non-edematous and No rhinorrhea Respiratory: clear to auscultation bilaterally, no respiratory distress, no rales, no rhonchi, no wheezing, no retractions, no cyanosis. Cardiovascular: no murmurs, no rubs, no gallops, regular rate and rhythm, peripheral pulses palpable and symmetric, 2+. No peripheral edema noted. Extremities warm, cap refill < 3 sec. Gastrointestinal: NGT with sm-mod amt dark red blood. soft, nontender, nondistended, no organomegaly, normal bowel sounds and no masses. Genitourinary: Exam deferred, mcclain cath present, small amt clear yellow urine Musculoskeletal: No clubbing, cyanosis or edema, no joint swelling, no bony tenderness and no deformities Skin: Mildly diaphoretic, normal, no abrasions or open wounds, no rashes noted. Heme/Lymph: See HPI. No external signs of bleeding. No unusual bruising noted. No cervical lymphadenopathy Neurologic: Intubated, sedated. Responds to tactile stimulation. Not following commands. Sensory intact. GCS Eyes: 1: None Verbal: T: Intubated Motor: 5: Localizes to stimulation Total: 7T CRITICAL CARE COURSE Upon bedside arrival at referring facility the patient was assessed and detailed physical exam performed. Initial exam findings as described above. The patient was placed on the transport monitor and all transport equipment transitioned in standard fashion. On initial exam, pt remained intubated, sedated, responsive to tactile stim, Levo, octreotide, Bicarb, propofol and insulin infusions continue. BP remained marginally low, levo titrated as needed. Pt began to cough and retch forcefully, fentanyl given as needed for sedation. Blood sugar checked at bedside, 394, insulin held as BS dropped ~200 in 2 hours and lack of available IV pumps for needed infusions. The patient was transferred to the transport cot and transported to the Ambulance and loaded without incident. An arterial line was attempted en-route (unsuccessful) as patient became acutely hypotensive with sedation. NS 0.9% IV fluids given wide open as was platelets given by OSH. The patient was medically managed, monitored, and reassessed during transport. On arrival to receiving unit, pt's BP more stable, levo, octreotide, propofol infusions continued. Medications Managed AND Administered by CCT: Norepinephrine - continued and titrated Propofol - continued and titrated Octreotide - continued Sodium Bicarb 1 amp/1L - continued Insulin - continued and then held Fentanyl 50 mcg IV x 2 1 5 pk platelets - as ordered by OSH Procedures Performed by CCT: Arterial line - attempt unsuccessful Ventilator management ASSESSMENT/PLAN: Lazaro Villafana is a 52 year old male admitted to OSH from another remote hospital with massive hematemesis, esophageal varices. A Tony tube was placed, pt intubated, 2 units PRBC and FFP given by other remote hospital and he was transferred to [facility]. There an EGD was performed that showed no further bleeding from esophagus, but patient remained in shock with lactic acidosis and evidence of multi organ dysfunction. Upper GI bleed Esophageal varices Acute blood loss anemia Hypovolemic shock Lactic acidosis Liver cirrhosis Thrombocytopenia - Initial exam as above, levo, octreotide, bicarb, insulin and propofol infusions continue - Continue Levo, titrate as needed - goal MAP > 65 mmHg - Additional IV fluids as needed for hypotension - Attempt arterial line for continuous BP monitoring - unsuccessful - PRBC 4 units, FFP 2 units given by OSH - H/H 8.9/25.0, Plt 102 - EGD showed no further bleeding - Replace Plt as ordered by OSH - Tony tube removed by [facility], NGT in place - Fentanyl for sedation as coughing/retching - high risk esoph hemorrhage - Expedite transport to [facility] for further surgical work up of acute UGIB Acute Respiratory failure - No known hx of COPD, asthma, respiratory illness - Current 2-3 ppd smoker - Intubated in [place] for airway protection with massive hematemesis - Vent settings: ACVC rate 18, FiO2 70%, Vt 525, PEEP 6+ - Wean FiO2 as possible - goal SaO2 > 94% Acute kidney Injury Hyperkalemia - No known hx acute or chronic renal dz prior to admit - BUN/Creat 73/2.66, K+ 6.6 - Acute injury r/t low flow state r/t shock/hypovolemia - On insulin and Bicarb infusions - Monitor closely for ectopy - Follow up needed at receiving unit Elevated Troponin - No known hx cardiac dz - Trop 0.362 - Likely cardiac strain r/t shock/hypovolemia - Follow up needed by receiving unit Hyperglycemia - Known hx DMII, unknown medical regimen, compliance - Gluc 611 in [place], 545 at [facility], on insulin infusion - Accu check 394 when CCT at - Insulin infusion on hold d/t precipitous drop and pump not available Hx of ETOH abuse - Known hx of heavy ETOH abuse, drank 2 beers yesterday - Will monitor for signs of acute withdrawal - Ativan if needed for seizures - Follow up counseling deferred to receiving unit The transport was completed without significant incident or change in the patient's status. The patient was transported to the the [facility] by [facility] (Helicopter) for tertiary and/or quaternary evaluation and management of his Critical Medical and Surgical condition(s). Upon arrival to the receiving facility, a [id number] report was given to bedside nursing staff in [id number] and Staff Physician: Dr. Meneses. Patient care was transferred. The patient condition was Critical and Acutely Ill at the time of transfer. Vital Signs at time care transferred to the receiving facility unit: HR 103bpm, Rhythm sinus tach, BP 87/54(67) mmHg, RR 18, SpO2 97% on FiO2 50%, ETCO2 38, pPlat 11 SPECIAL EQUIPMENT: None MODE OF TRANSPORT: Surface (Ground) CRITICAL CARE TIME:I personally performed 45 minutes of critical care time exclusive of separately billable procedures, ambulance charges and treating other patients. This was necessary to treat or prevent further deterioration of the following condition(s): Acute upper GI bleed, hypotension, respiratory failure and the Cardiovascular impairment, Respiratory impairment, Shock and Cardiac Arrest which the patient had and/or had a high probability of suddenly developing. SIGNATURE: Regine De Leon APRN.[facility] Acute Care Nurse Practitioner [facility] Critical Care Transport Team Progress Notes (): Annie Meneses MD 04/14/2018 11:14 PM Addendum SICU HANDP NOTE SERVICE DATE: 04/14/2018 SERVICE TIME: 9:00 PM Subjective HPI: Mr. 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 Patient initially presented with hematemesis and melena with accompanying dizziness and shortness of breath. Now being admitted to the SICU for surgical evaluation and hemodynamic monitoring. PMHx: CKD, HTN, COPD, Type II DM, cirrhosis, tobacco use PSHx: prior abdominal surgery in 20s Medications: noncompliant, unsure about medications Allergies: Penicillin (anaphylaxis as child) Social: daily drinker (unsure amount), 2-3 PPD tobacco use No past medical history on file. No past surgical history on file. No family history on file. Social History Substance Use Topics - Smoking status: Not on file - Smokeless tobacco: Not on file - Alcohol use Not on file ALLERGIES Allergen Reactions - Ciprofloxacin Unknown - Penicillin Unknown Objective VITAL SIGNS Temp: 37.4 ?C (99.3 ?F) Pulse: 103 BP: 98/55 MAP Non Invasive (Mean Arterial Pressure): 75 Resp: 18 SpO2: 98 % RESPIRATORY Mechanical Ventilation: Vent Mode: PC SIMV Freq (bpm): 14 PS (cmH20): 5 PEEP / CPAP (cmH20): 8 FIO2 (%): 60 Recent Labs 04/14/18 1700 04/14/18 1415 LACT 8.4* 4.6* PHYSICAL EXAM Neuro: Intubated and sedated Pulmonary: Rhonchi bilateral Breath Sounds Equal: Yes Cardiovascular: Regular rhythm Abdomen: Soft and Nontender Extremities: Edema- No Peripheral pulses- Present all extremities Presence of Pressure Ulcer No CXR Findings: Clear lung alvarez Infusions: Propofol, Norepinephrine, Octreotide, Insulin No current facility-administered medications for this encounter. RECENT LABS Recent Labs 04/14/18 1700 04/14/18 1415 CA 7.0* 8.0* NA 136 135* K 6.6* 5.3* CHLOR 102 102 CO2 22 22 BUN 73* 73* CREAT 2.66* 2.21* GLUC 545* 494* TPROT 5.1* 6.2* ALB 2.2* 2.7* AST 28 29 ALT 27 29 ALKPHOS 64 76 TBILI 0.7 0.7 WBC 20.86* 21.54* RBC 2.73* 2.67* HB 8.0* 8.1* HCT 25.0* 25.3* PLT 102* 120* INR 1.35* 1.31* DATA: Diagnostic tests reviewed for today's visit: Most recent labs and imaging results. Assessment/Plan Mr. Lazaro Villafana is a 52-year-old male with PMHx type II DM, poorly controlled HTN, CKD, COPD, tobacco smoker 2-3 PPD, alcohol use disorder with recent diagnosis of cirrhosis was transferred from [facility] with an esophageal perforation seen on EGD. Patient initially presented with hematemesis and melena with accompanying dizziness and shortness of breath. Now being admitted to the SICU for surgical evaluation and hemodynamic monitoring. REASON FOR ICU ADMISSION: Surgical evaluation and hemodynamic monitoring Seen and discussed on rounds with SICU staff. Neuro: --Sedation with propofol --Lorazepam 1-2mg IV prn if withdrawal symptoms occur --thiamine and folic acid CV: Currently HDS on levo --Wean pressors for MAPs >65 Pulm: Intubated. Hx of COPD. --Continue home bronchodilators --BPH, duonebs prn Renal: LIANE with Cr 2.66 (baseline unknown), hyperkalemia --Monitor Cr and I/Os --Mcclain --Insulin gtt, kayexalate, lasix, bicarb and calcium if needed GI: Esophageal perforation, general surgery aware --Pantoprazole for GI ppx --Octreotide gtt for GI bleed --NPO --NGT placed at OSH during EGD Heme: Hgb 8.0, s/p 2u pRBC at OSH --Transfuse to keep Hgb >7 Fluid/Electrolyte/Nutrition: --NPO --mIVF with NS given hyperkalemia --Continue insulin gtt for hyperkalemia, will add kayexalate, lasix, bicarb and calcium if needed --Replete lytes per SICU protocol Endo: Hx of IDDM, HgbA1c 8.2. --Continue insulin gtt ID: Esohageal perf. WBC 20.86, lactate 8.4. --Continue Aztreonam and Flagyl Medication and Non-Pharmacologic VTE Prophylaxis/Anticoagulants VTE Prophylaxis: VTE prophylaxis appropriate SIGNATURE: Gloria Crawford MD PATIENT NAME: Lazaro Villafana DATE: April 14, 2018 TIME: 6:28 PM PAGER/CONTACT #: [id number] SICU STAFF PHYSICIAN NOTE OF PERSONAL INVOLVEMENT IN CARE I have reviewed the history and physical examination obtained and documented by the resident and I personally participated in the jang components as documented above regarding the following problems or issues and made appropriate changes. These issues or problems included: Patient required fluid boluses for hypotension. Close monitoring of the following has been required: respiratory status, cardiac status and acute GI bleeding IMPRESSION : Mr. Villafana is a 52-year-old male with PMHx type II DM, poorly controlled HTN, CKD, COPD, tobacco smoker 2-3 PPD, alcohol use disorder with recent diagnosis of cirrhosis who was transferred from OSH with concern for an esophageal perforation on EGD. Patient initially presented with hematemesis and melena to an OSH and was noted to be tachypneic and tachycardic with SBP in the 60s. He was intubated and a [place] tube was placed prior to transfer to [facility]. He was transfused blood for anemia and FFP for INR 1.7. At [facility] he underwent EGD with concern for esophageal perforation (31-38 cm) related to [place] tube vs. Boerhaave's syndrome. Grade 2 esophageal varices without active bleeding were noted. He was transfused additional blood products. He was also treated with insulin infusion for DKA, broad spectrum ABX, PPI and octreotide drip and norepinephrine infusion. He is transferred to [facility] for general surgery vs thoracic surgery evaluation. On admission to SICU, the patient is intubated and sedated. He is on 40 mcg/min of norepinephrine. He is on 50% FiO2 with adequate saturations. Of note, the patient is in airborne precautions for ?h/o TB. PLANs as noted above plus : Acute respiratory insufficiency Intubated at OSH. Currently on PC SIMV, 50% FiO2, PEEP 8, PS 5. Lung protective strategy: TV 6 ml/k, PP< 30 cm H2O, titrate FiO2 to keep SaO2 >92% VAP prevention protocol: chlorhexidine, HOB 30 degrees Acute anemia due to blood loss with upper GI bleed S/p 4 units pRBCs at OSHs. Hgb 9.0 on arrival. Continue to monitor with serial laboratories. No indication for further transfusion at this time. PPI BID. Continue octreotide infusion. Per surgery, pending results of CT scan, will consult GI for repeat EGD. DKA Blood sugar 611 on presentation to OSH with mild anion gap elevation. Blood sugar 445 on admission to SICU with anion gap 16. Continue insulin infusion. Goal BS < 180. Septic shock Norepi at 35 mcg/min, add vasopressin Procalcitonin 2.67. WBC > 20 Lactate 5.3 (down-trending from OSH) Blood cultures pending. F/U MRSA screen. Vancomycin, flagyl, fluconazole and cefepime. Acute renal insufficiency Per chart, baseline creatinine ~1.2 from 02/2018. Creatinine elevated to 2.71 on admission Monitor UOP closely. Avoid nephrotoxic medications. May require nephro consult. Electrolyte imbalance Hypomagnesemia Supplement per protocol. Secondary thrombocytopenia Related to cirrhosis. Plts 102 at OSH and given 1 5 pk transfusion by critical care transport. Given no evidence of active hemorrhage, will hold off on further transfusion. ?Esophageal perforation General surgery at the bedside to evaluate. Will likely obtain CT chest with PO contrast to evaluate for leak. Will consult thoracic surgery if perforation. Empiric ABX as above. H/o alcohol abuse and cirrhotic disease INR 1.3 on admission (s/p 2 FFP at OSH) Other LFTs wnl. Thrombocytopenia as above. Continue thiamine. I devoted my full attention to the direct care of this patient for the amount of time indicated below. Time I spent with family or surrogate(s) is included only if the patient was incapable of providing the necessary information or participating in medical decision making. Time devoted to teaching and to any procedures I billed separately is not included. Time spent providing critical care services: 50 minutes. Daily Assessments: HOB >30 deg GI Prophylaxis PPI BID (treatment) DVT Prophylaxis SCDs only, holding SQH SEDATION INTERRUPTION -Applicable and Completed CENTRAL ACCESS -Necessary. Personal evaluation has established that ongoing need exists for R IJ CVP, placed 04/14. -Vasoactive Medication(s) -Fever and/ or DDX of Sepsis -Limited access -Medications which can be given only via a central route or large volume bolus infusions RESTRAINTS -Necessary for altered mental status/risk of self-harm (pulling on life support devices, etc) SIGNATURE: Annie Meneses MD DATE: April 14, 2018 Previous Version Roberto Bennett MD 04/15/2018 5:17 AM Addendum GENERAL SURGERY HISTORY AND PHYSICAL EXAMINATION PLEASE DO NOT REMOVE FROM THE CHART OR MODIFY PRINTED COPY Patient Name: Lazaro Villafana PRIMARY CARE PHYSICIAN: Jorge De Santiago MD ASSESSMENT/PLAN: 52 year old male with PMHx type II DM, poorly controlled HTN, CKD, COPD, tobacco smoker 2-3 PPD, alcohol use disorder with recent diagnosis of cirrhosis who presents on transfer from OSH with hematemesis s/p EGD at OSH c/b esophageal laceration vs Boerhaave's vs injury related to [place] tube on 1 pressor intubated/sedated -CT C/A/P with contrast per NGT pulled back to proximal esophagus to evaluate for ?esophageal perf (ordered) -Consult thoracic surgery if perforation, consult GI if no perforation for non-emergent repeat EGD -Consult ID re: TB history c/f latent TB; continue airborne precautions -PPx fluconazole for ?esophageal perforation in addition to Aztreonam/Flagyl -Continue PPI and Octreotide -Rest per SICU Senior resident addendum 52 YOM comes in intubated and sedated on pressors to SICU as a transfer from [facility]. He initially presented earlier in the day to [place] ED with hematemesis and bloody BMs subsequently temporized with [place]-Tony tube. He was then transferred to [facility] where an EGD demonstrated grade 2 esophageal varices without active bleeding, old blood in stomach, normal duodenum and large clot over esophageal perforation/tear. Intervention wasn't attempted due to concern for esophageal perforation and he was transferred here for further management. Received 2U FFP and 2U pRBC at [facility], in addition to fluid boluses, CXR there showed no pneumomediastinum. Relevant medical history includes HTN, HLD, type II DM, liver cirrhosis (chronic alcoholic), COPD with extensive smoking history, as well as history of positive PPD (uncertain whether treated) Patient is currently on 35 Levo, intubated and sedated. Abdomen soft, distended, mild anterior bruising Plan for CT chest/abd/pelv with PO contrast to eval for lower esophageal perforation Thoracic/GI consultation if extrav on CT chest Continue resuscitation per SICU for now. Infectious disease consult in AM Discussed with MD Roberto Carbajal MD ? HPI: per chart review-patient intubated and sedated with no source of collateral info at bedside. 52 year old male with PMHx type II DM, poorly controlled HTN, CKD, COPD, tobacco smoker 2-3 PPD, alcohol use disorder with recent diagnosis of cirrhosis presents on transfer from [facility] with hematemesis. ? He notably has a history of +ve PPD, unsure if ever treated for TB. ? He initially presented to [facility] 04/14 from [facility] ED after he noted hematemesis. Per he had also had loss of appetite and diarrhea over several days prior to presentation; first noted dark red emesis 04/13, and had maroon-black colored stools 04/14. He also had complaints of lightheadedness and dizziness with SOB. [place] tube placed at [facility] ED. At [facility] he was found to be tachypneic, tachycardic, and hypotensive with SBP 62. INR 1.7, Hgb 7.1, WBC 13.3, lactic acid 6.2, glucose 611, troponin 0.38. He was subsequently intubated, got 2 units FFP and pRBCs, got 1g Rocephin, and started on protonix gtt and octreotide gtt. [place] tube removed at [facility], and EGD performed by GI with findings notable for esophageal laceration suspected between 31-38 cm, Boerhaave's syndrome vs. related to [place] tube ?2. Grade 2 esophageal varices w/o active bleeding. Per op report GI opted not to band varices or disturb areas of clot covering areas concerning for prior bleeding given no active bleed. NGT placed under endoscopic guidance. He was prepared for transfer to [facility] given Thoracic surgery at [facility] does not perform esophageal surgery. He received 2 further units pRBC (total 4), most recent Hgb 8.0 Currently on Levo 35, octreotide gtt. PAST MEDICAL HISTORY: No past medical history on file. CKD, HTN, COPD, Type II DM, cirrhosis, tobacco use PAST SURGICAL HISTORY: No past surgical history on file. Prior abd surgery in 20's FAMILY HISTORY: No family history on file. SOCIAL HISTORY: Social History Substance Use Topics - Smoking status: Not on file - Smokeless tobacco: Not on file - Alcohol use Not on file MEDICATIONS: Prior to Admission Medications: aztreonam (AZACTAM) 1 g in D5W 100 mL Inject 100 mL intravenously every 8 hours. metroNIDAZOLE (FLAGYL) 500 mg/100 mL Inject 100 mL intravenously every 8 hours. NORepinephrine (LEVOPHED) 16 mg in D5W 250 mL Inject 0.6-30 mcg/min intravenously continuous. octreotide 500 mcg in D5W 100 mL Inject 50 mcg/hr intravenously continuous. pantoprazole (PROTONIX) 40 mg injection Inject 10 mL intravenously twice daily. propofol infusion (DIPRIVAN) 10 mg/mL injection Inject 0.485- 5.82 mg/min intravenously continuous. Current hospital medications: albuterol 2.5 mg/0.5 mL 2.5 mg nebulizer solution (PROVENTIL) 2.5 mg INHALATION q 4 H PRN aztreonam 1 g in D5W 100 mL MB+ (AZACTAM) 1 g INTRAVENOUS q 8 H Chlorhexidine Gluconate 0.12 % 15 mL (PERIDEX) 15 mL ORAL QID dextrose 40 % 15 g 15 g ORAL PRN dextrose 50 % 12.5 g injection 12.5 g INTRAVENOUS PRN fentaNYL 50 mcg/mL 25-50 mcg injection (SUBLIMAZE) 25-50 mcg INTRAVENOUS q 1 H PRN glucagon 1 mg injection (GLUCAGEN) 1 mg INTRAMUSCULAR PRN insulin regular iv infusion 250 units in NaCl 0.9% 250 mL - ADULT DKA/HYPERGLYCEMIA NOMOGRAM 0.2-25.9 Units/hr INTRAVENOUS CONTINUOUS ipratropium-albuterol 3 mL nebulizer solution (DUONEB) 3 mL INHALATION q 4 H PRN metroNIDAZOLE 500 mg PREMIX piggyback (FLAGYL) 500 mg INTRAVENOUS q 8 H NaCl 0.9% 3-5 mL 3-5 mL INTRAVENOUS q 12 H NaCl 0.9% iv infusion 100 mL/hr INTRAVENOUS CONTINUOUS NORepinephrine 16 mg in D5W 250 mL (LEVOPHED) 0.6-30 mcg/min INTRAVENOUS CONTINUOUS octreotide 500 mcg in D5W 100 mL (SandoSTATIN) 50 mcg/hr INTRAVENOUS CONTINUOUS [START ON 04/15/2018] pantoprazole 40 mg injection (PROTONIX) 40 mg INTRAVENOUS BID AC (0600/1600) propofol infusion (DIPRIVAN) 5-60 mcg/kg/min INTRAVENOUS CONTINUOUS thiamine 100 mg in NaCl 0.9% 50 mL INTRAVENOUS DAILY ALLERGIES: ALLERGIES Allergen Reactions - Ciprofloxacin Unknown - Penicillin Unknown COMPLETE REVIEW OF SYSTEMS: Could not be gathered given intubated and sedated PHYSICAL EXAM: BP 98/55 Pulse 103 Temp 37.4 ?C (99.3 ?F) (Oral) Resp 18 SpO2 98% General: sedated CV/Pulm: intubated and sedated Abd: S, ND Extremities: warm, well perfused Neuro: intubated, sedated DATA: Radiology: - CT C/A/P with PO contrast per NGT ordered; f/u Laboratory: CBC, Coags, BMP, Mg, Phos Recent Labs 04/14/186 04/14/18 2120 04/14/18 1700 04/14/18 1415 WBC -- -- 20.86* 21.54* HB -- -- 8.0* 8.1* HCT -- -- 25.0* 25.3* PLT -- -- 102* 120* INR -- 1.3 1.35* 1.31* NA -- 140 136 135* K -- 5.0 6.6* 5.3* CHLOR -- 100 102 102 CO2 -- 24 22 22 BUN -- 76* 73* 73* CREAT -- 2.71* 2.66* 2.21* GLUC -- 445* 545* 494* IC 1.05* -- -- -- CA -- 7.1* 7.0* 8.0* MG -- 1.3* -- -- P -- 4.7 -- -- Microbiology: f/u BCx Greta Carballo MD PGY-1 Urology Pager: [phone] overnight; between 6a and 6p (7p on Wednesdays) please contact primary team Phone: [phone] Previous Version Annie Meneses MD 04/14/2018 11:17 PM Addendum SICU PROCEDURE NOTE PROCEDURE DATE: 04/14/2018 PROCEDURE START TIME: 9:15 PM INFORMED CONSENT Informed consent was not obtained due to clinical factors necessitating an emergent procedure. Hemodynamic instability requiring high dose vasopressor infusions. UNIVERSAL PROTOCOL / SAFETY CHECKLIST Sign in Communication: Completed Time Out: Team Confirms the Correct Patient, Correct Procedure, Correct Site and Site Marking, Correct Position (if applicable), Prep and Dry Time (if applicable). Time: 9:15 PM Affirmation of Time Out: YES Sign Out Discussion: Completed PROCEDURE: ARTERIAL LINE INSERTION Indication: Monitoring of vital bodily functions (BP, pH, paO2, paCO2) and Frequent ABGs AND Labs Insertion Type: New stick Site: Left radial artery Performed By: [facility] resident Supervision: Dr. Meneses All personnel involved with the procedure used caps, masks with eye hawkins and sterile gloves. The area was prepped with chlorhexidine gluconate and draped with a sterile drape following the usual aseptic technique . Anesthesia was obtained with local infiltration of 1% lidocaine. The vessel was cannulated under direct ultrasound visualization with a 20 gauge catheter on the first attempt. A straight-tipped spring wire was passed into the artery through the indwelling catheter and left in situ while the catheter was removed. A 20 gauge catheter was advanced over the guidewire and left in situ while the guidewire was removed. Pulsatile blood flow exited the catheter and an arterial waveform was noted on the monitor when the catheter was transduced. The catheter was secured in place with tape and a sterile, transparent, occlusive dressing was placed over the site. All catheters, needles and wires were accounted for and intact. The patient tolerated the procedure well and without apparent complications. No Specimens Collected Unless Noted Here Estimated Blood Loss: None SIGNATURE: Gloria Crawford MD PATIENT NAME: Lazaro Villafana DATE: April 14, 2018 TIME: 9:49 PM PAGER/CONTACT #: [phone] SICU--STAFF Procedure: Arterial line placement [[id number]]; site Left radial, new stick I was present for supervision of this procedure, exclusive of critical care time. Annie Meneses MD. Staff Asbestos Handler Surgical ICU Anesthesiology [place] April 14, 2018 11:17 PM Beeper [id number] Previous Version Annie Meneses MD 04/14/2018 11:18 PM Addendum SICU PROCEDURE NOTE PROCEDURE DATE: 04/14/2018 PROCEDURE START TIME: 9:30 PM INFORMED CONSENT Informed consent was not obtained due to clinical factors necessitating an emergent procedure. The nature of the emergency was hemodynamic instability. UNIVERSAL PROTOCOL / SAFETY CHECKLIST Sign in Communication: Completed Time Out: Team Confirms the Correct Patient, Correct Procedure, Correct Site and Site Marking, Correct Position (if applicable), Prep and Dry Time (if applicable). Time: 9:30 PM Affirmation of Time Out: YES Sign Out Discussion: Completed PROCEDURE: CENTRAL VENOUS LINE INSERTION Indication: Vasoactive medication Insertion Type: New stick Site: Right internal jugular vein Inserted By: [facility] resident Supervision: Dr. Meneses [facility] Central Line Insertion checklist, attached to the Central Line-Associated Bloodstream Infection Prevention Policy, was utilized during this procedure. Ultrasound Used for Insertion: Yes, image not captured All personnel involved with the procedure used caps, masks with eye hawkins, sterile gowns and sterile gloves. The area was prepped with chlorhexidine gluconate and draped with a full-body sterile drape following the usual aseptic technique . Anesthesia was obtained with local infiltration of 1% lidocaine. The vessel was cannulated under direct ultrasound visualization with a 6.35 cm, 18 gauge single lumen catheter on the first attempt. The vessel was transduced to confirm venous placement. A J-tipped spring wire was passed into the vein through the indwelling catheter and left in situ while the catheter was removed. A small skin incision was made and the tract was dilated with a semi-rigid tissue dilator. A 16 cm triple-lumen, 7 Fr, non-tunneled, pressure injectable, antimicrobial catheter was advanced over the guidewire and left in situ while the guidewire was removed. All ports were capped with sterile site caps, venous blood was aspirated from all ports and all ports were flushed with sterile saline solution. The catheter was secured in place at 16 cm with sterile sutures and a sterile, transparent, occlusive chlorhexidine dressing was placed over the site. A portable CXR was ordered. All catheters, needles and wires were accounted for and intact. The patient tolerated the procedure well and without apparent complications No Specimens Collected Unless Noted Here Estimated Blood Loss: None SIGNATURE: Gloria Crawford MD PATIENT NAME: Lazaro Villafana DATE: April 14, 2018 TIME: 9:53 PM PAGER/CONTACT #: [phone] SICU--STAFF Procedure: CVP insertion [[id number]]; site right IJ I was present for supervision of this procedure, exclusive of critical care time. Annie Meneses MD. Staff Asbestos Handler Surgical ICU Anesthesiology [place] April 14, 2018 11:18 PM Beeper [id number] Previous Version Jordan Villar, Pharmacist 04/14/2018 11:18 PM Signed PHARMACY VANCOMYCIN DOSING NOTE Patient Name: Lazaro Villafana Admission Date: 04/14/2018 Date of Consult: 04/14/2018 Time of Consult: 11:12 PM Indication: Source Unknown; empiric Goal Range: 15-25 mcg/mL RECOMMENDATIONS/PLAN: Pharmacy consulted for vancomycin dosing for Lazaro Villafana, a 52 year old, male who is being treated with vancomycin for Source Unknown; empiric 1. Patient is currently ordered Vancomycin 2.5g IV x one dose . Today is day 1 of therapy. 2. No vancomycin level has been drawn for this dosing regimen. 3. Serum creatinine is currently elevated at 2.71mg/dl, therefore will discontinue vancomycin at this time and dose by level after giving a 25mg/kg x 1 loading dose . 4. The next vancomycin level will be ordered for 24 to 48 hours unless clinically indicated sooner. (Pharmacy will order) We will follow patient renal function, vancomycin levels and doses with you during the course of therapy. Additional recommendations will appear in follow up notes. If you have any questions, [place] [phone]. Age: [age] year old Allergies: ALLERGIES Allergen Reactions - Ciprofloxacin Unknown - Penicillin Unknown Last 3 Encounter Wt Readings: Date: Wt: 04/14/2018 97 kg (213 lb 13.5 oz) Last 1 Encounter Ht Readings: Date: Ht: 04/14/2018 177.8 cm (5' 10) CrCl: 38 mL/min Temp (24hrs), Av.4 ?C (99.3 ?F), Min:37.4 ?C (99.3 ?F), Max:37.4 ?C (99.3 ?F) - Current Temp: 37.4 ?C (99.3 ?F) Labs BUN (mg/dL) Date Value 04/14/2018 76 (H) 04/14/2018 73 (H) 04/14/2018 73 (H) Creatinine (mg/dL) Date Value 04/14/2018 2.71 (H) 04/14/2018 2.66 (H) 04/14/2018 2.21 (H) WBC Date Value 04/14/2018 20.86 thou/cmm (H) 04/14/2018 21.54 thou/cmm (H) 03/07/2018 3.17 k/uL (L) Vancomycin Levels: No results found for: LIZ Villar Pharmacist Antonina Diaz, RN, RN 04/14/2018 11:26 PM Signed Nursing Progress: Topic: RESTRAINT NON-VIOLENT PATIENT NAME: Lazaro Villafana PATIENT LOCATION: G053 [id number] The patient demonstrates Attempting to Remove Medical Devices Vital to Medical Stability as evidenced by the following behaviors reaching for lines and ETT which pose an imminent danger to self or others. The following interventions were attempted but were not effective in protecting the patient's safety: Alarms, Bed in Low/Locked Position, Call Light Within Reach, Modify Environment, Medications Reviewed, Modify Equipment Next, a comprehensive assessment was performed and warranted placing the patient in Soft Bilateral Wrists, the least restrictive restraint needed to protect the patient's safety. Ongoing safety assessments and evaluation for earliest removal of restraints will be performed. DATE: April 14, 2018 TIME: 11:25 PM BLAYNE Sánchez CT, CT 04/15/2018 2:33 AM Signed Radiology Service Progress Note PATIENT NAME: Lazaro Villafana DATE OF SERVICE: April 15, 2018 TIME: 2:33 AM PATIENT IDENTITY VERIFICATION COMPLETED USING TWO (2) METHODS: Patient confirmed name verbally and ID band matches.. PATIENT GENDER DATA: Male PATIENT RELEVANT IMPLANT DATA REVIEWED: Yes RADIOLOGY DEPARTMENT: CT; Exam(s) Completed: Chest Abdomen Pelvis PERIPHERAL IV DATA: Not applicable SIGNED BY: ANDRESSA Hanson April 15, 2018 2:33 AM Elliot Soto MD 04/16/2018 3:00 PM Addendum [facility] SUR[facility]ERY CONSULT NOTE Lazaro Villafana [id number] [facility] Cardiothoracic Physician: Elliot Soto M.D. Admit Date: 04/14/2018 LOS : 1 Chief Complaint: Esophageal perforation HPI: (document at least 4 of these elements) 52 year old male history of poorly controlled DMII, HTN, CKD, COPD, active tobacco, active ETOH use and cirrhosis presented with massive hemoptysis to OSH ED where S-B tube was reportedly inserted and he was subsequently transferred to [facility]. EGD done there concerning for esophageal perforation, likely related to S-B tube placement, and so was transferred here. On arrival to [facility] SICU he was intubated, sedated unable to provide any collateral history. Appears septic on high dose pressors (0.03 vaso, 20 levo), vent settings of 40/8. CT scan was done which showed contrast extravasation (somewhat contained), small R sided effusion and no pneumomediastinum. Location: esophagus Quality: acute Severity: severe Duration: 1 day Unintentional weight loss over last 3 months: N/A PAST MEDICAL HISTORY: PAST MEDICAL HISTORY Diagnosis Date - Cirrhosis (HCC) - COPD (chronic obstructive pulmonary disease) (HCC) - Diabetes (HCC) - Hypertension PAST SURGICAL HISTORY: Unable to obtain, patient intubated and sedated FAMILY HISTORY: Unable to obtain, patient intubated and sedated SOCIAL HISTORY: Social History Substance Use Topics - Smoking status: Current Every Day Smoker - Smokeless tobacco: Not on file - Alcohol use Yes MEDICATIONS: Prior to Admission Medications: aztreonam (AZACTAM) 1 g in D5W 100 mL Inject 100 mL intravenously every 8 hours. metroNIDAZOLE (FLAGYL) 500 mg/100 mL Inject 100 mL intravenously every 8 hours. NORepinephrine (LEVOPHED) 16 mg in D5W 250 mL Inject 0.6-30 mcg/min intravenously continuous. octreotide 500 mcg in D5W 100 mL Inject 50 mcg/hr intravenously continuous. pantoprazole (PROTONIX) 40 mg injection Inject 10 mL intravenously twice daily. propofol infusion (DIPRIVAN) 10 mg/mL injection Inject 0.485- 5.82 mg/min intravenously continuous. ALLERGIES: ALLERGIES Allergen Reactions - Ciprofloxacin Unknown - Penicillin Unknown Chemical Exposure: N/A Asbestos Exposure N/A COMPLETE REVIEW OF SYSTEMS Unable to complete: Patient intubated, sedated and unable to respond PHYSICAL EXAM Constitutional: Ill appearing, intubated, sedated HEENT: No lesions Resp: Clear and no crepitus Cardiovascular: Regular rate AND rhythm GI: Firm, Non-tender and Non-distended Integumentary: Warm and Dry Musculoskeletal: No deformities Neurological/Psychiatric: Intubated, sedated, responds to painful stimulus Additional systems reviewed: No additional systems reviewed DATA: Laboratory: Recent Labs 04/14/18211904/14/18169904/14/18 1415 WBC 22.38* 20.86* 21.54* HB 8.9* 8.0* 8.1* HCT 26.0* 25.0* 25.3* PLT 117* 102* 120* Recent Labs 04/14/18211904/14/18 17004/14/18 1415 NA 140 136 135* K 5.0 6.6* 5.3* BUN 76* 73* 73* CREAT 2.71* 2.66* 2.21* GLUC 445* 545* 494* MG 1.3* -- -- Recent Labs 04/14/182119 CK 121 MB 4.2 TROPT 0.139* Recent Labs 04/14/18211904/14/18 17004/14/18 1415 INR 1.3 1.35* 1.31* Radiology: CT chest showing some contained extravasation without free flowing contrast in pleura, only small right sided effusion I have personally reviewed the following images/data: Chest X-ray and CT scan Outside Paper Medical Records Review personally performed by: Yaneli Arita MD Impression: 52 year old male with multiple medical comorbidities now with likely partial thickness esophageal perforation, putatively from S-B tube placement at OSH. It is unlikely that this is the etiology of his massive hemoptysis, reportedly there were multiple varices that, in the background of cirrhosis is the likely etiology of his bleed. While he is requiring high doses of vasopressors, it is unlikely that the source of his shock is purely from his esophageal perforation given his lack of pleural effusion or free flowing contrast. Most tellingly, he has NO MEDIASTINAL AIR despite EGD done at OSH - if there were a full thickness tear, there would likely be massive pneumomediastinum from insufflation. Plan: - STRICT NPO - no water, ice chips, etc. NO meds through EGD/[place] - EVERYTHING IV - Continue broad spectrum ABX as you are doing - Do NOT manipulate NGT blindly - Recommend GI consult with possible repeat EGD and endoluminal intervention - endoclips vs stenting. Concomitantly recommend suction of blood in stomach and NGT placement under direct endoscopic visualization. Discussed with Dr. Soto. SIGNATURE: Yaneli Arita MD PAGER: [phone] DATE of SERVICE: 04/15/2018 TIME of SERVICE: 3:39 AM [facility] STAFF PHYSICIAN NOTE OF PERSONAL INVOLVEMENT IN CARE Patient seen and examined independently. Agree with above consult note and case was discussed the ratoprinter of April 15, 2018. Please see my separate plan of care entry in [facility]. IMPRESSION: 52 yr M with cirrhosis and sequela including esophageal varices with hematemesis of unclear etiology s/p emergent Tony esophageal occlusion tube placement later on EGD found to have linear, partial thickness esophageal laceration from 31-37 cm from incisors. CT scan shows partial thickness esophageal tear but without active mediastinal or pleural extravasation. There is esophageal pneumatosis, pneumomediastinum or significant pleural effusion to suggest full thickness esophageal perforation. PLAN: 1. Discussed CT scan with staff radiologist who agreed that this represents a partial thickness esophageal injury and so no surgical intervention is indicated at this time based upon current clinical information 2. Interventional GI performed upper endoscopy which demonstrated the partial-thickness injury. This was not bleeding however was not amenable to stent placement 3. Continue current conservative management of esophageal injury I have reviewed the documentation obtained and documented by the Resident and have reviewed and updated the problem list as appropriate. I have personally performed a face to face assessment of the patient and have personally participated in the jang components. I have discussed the case and management of the patient's care. STAFF PHYSICIAN: Elliot Soto MD DATE OF SERVICE note to chart: April 16, 2018 TIME OF SERVICE note to chart: 2:57 PM Previous Version Elliot Soto MD 04/15/2018 4:16 AM Signed Thoracic Surgery Staff Brief Note Patient discussed with director of early childhood education resident. Previously discussed with [place] [facility] [place] to transfer [place] [facility]. Briefly, 52 yr M with history of multiple medical issues including cirrhosis with esophageal varices , CKD, DM2, HTN who presented to [place] with massive hematemesis of unclear etiology. Patient emergently intubated and Tony tube placed prior to transfer to [facility]. At [place] after resuscitation, Tony tube carefully removed and linear tear of esophageal mucosa noted without active bleeding. Patient underwent at least 2 EGDs at [place] with grade 2 esophageal varices confirmed (see note from Dr. Clarence Jensen) not bleeding at that time. A linear mucosal tear/laceration was noted from 31-37 cm from incisors with ddx including iatrogenic injury (Tony tube) vs. Boerhaave syndrome. On review of [place] CXR: patient without pneumomediastinum or significant pleural effusion. Plan for transfer to MICU/SICU for evaluation and advanced endoscopy by interventional GI given possible need for mucosal clipping, variceal banding or other hemostatic interventions. CT scan from [facility] obtained with PO and IV contrast. On my review, there is evidence of a partial thickness esophageal tear without active extravasation into pleura or mediastinum. No pneumomediastinum, pneumatosis of esophagus or free air. Bilateral basilar atelectasis without significant pleural effusions. Impression 52 yr M with cirrhosis and sequela including esophageal varices with hematemesis of unclear etiology s/p emergent Tony esophageal occlusion tube placement later on EGD found to have linear, partial thickness esophageal laceration from 31-37 cm from inc[address]ors. CT scan shows partial thickness esophageal tear but without active mediastinal or pleural extravasation. There is esophageal pneumatosis, pneumomediastinum or significant pleural effusion to suggest full thickness esophageal perforation. -would not recommend open surgical intervention on partial thickness, esophageal tear in cirrhotic based on current clinical information -recommend evaluation by interventional GI for endoscopy -will remain involved closely involved in the event that further information points to full thickness esophageal injury that would require open surgical intervention by Thoracic surgery. Elliot Soto MD April 15, 2018 4:15 AM Orlando Gamboa 04/15/2018 4:15 AM Signed RADIOLOGY SERVICE PROGRESS NOTE DATE OF SERVICE: April 15, 2018 TIME OF SERVICE: 4:00 am EVENT: EXAM/PROCEDURE NOT COMPLETED - NURSING UNIT CANCELED MORING CXR HAD ONE AT 2330 HRS ADDITIONAL DATA: N/A SIGNATURE: Orlando Gamboa PATIENT NAME: Lazaro Villafana DATE: April 15, 2018 TIME: 4:14 AM PAGER/CONTACT #: Dakotah Rodriges DO 04/15/2018 6:40 AM Signed Department of Gastroenterology AND Hepatology Initial Consult Note Date of Service: April 15, 2018 Patient: Lazaro Villafana Medical Record: [id number] Reason for Admission / Consultation: Opinion/Advice regarding esophageal tear Gastroenterology Attending: Clarence Rajan MD Impression: Lazaro Villafana is a 52 year old gentleman with history notable for presumed EtOH related cirrhosis with risk factors for BOONE with disease course c/b portal HTN (EV) who is now transferred from [facility] by way of [place] ED where he presented with complaint of several day history of nausea, vomiting, melena, and hematemesis prompting tony tube placement at that time (unsure if gastric vs. Gastric and esophageal balloon inflated) subsequently transferred to [place] where he underwent EGD revealing Grade II non bleeding EV and a long 7 cm laceration (31-38 cm from the incisors) with GE junction documented to be at 45 cm. Mr. Villafana is currently without evidence of ongoing gastrointestinal bleeding (passing melenic stool expected) with decreasing pressor requirements since admission and minimal vent settings (FiO2: 40% PEEP 8) consistent with a resolving esophageal tear without active extravasation v. Pneumothorax related to esophageal rupture. Etiology of tear likely related to placement of Otny tube as the visualized laceration on endoscopy was 7 cm proximal to the documented GE junction. Recommendation: --- Strict NPO --- Continue pantoprazole 40 mg IV BID --- Octreotide Gtt --- Agree with broad antimicrobials --- Trend hemoglobin Q8 hours --- Transfuse blood products to maintain Hb > 7, Plt > 50, INR < 1.5 --- Continue to monitor for recurrent overt GIB. --- Ongoing supportive care per primary SICU team. Will discuss timing of non emergent EGD with GI ICU staff and role of hemostatic clip (TTS or OTSC) in closing the mucosal defect vs. Proceeding with endoluminal stent. Gastroenterology consult service will continue to follow Dakotah Rodriges DO [facility] Gastroenterology AND Hepatology Fellow Will discuss with staff. History of Present Illness: Lazaro Villafana is a 52 year old gentleman with history notable for presumed EtOH related cirrhosis with risk factors for BOONE with disease course c/b portal HTN (EV) who is now transferred from [facility] by way of [place] ED where he presented with complaint of several day history of nausea, vomiting, melena, and hematemesis prompting tony tube placement at that time (unsure if gastric vs. Gastric and esophageal balloon inflated) subsequently transferred to [place] where he underwent EGD revealing Grade II non bleeding EV and a long 7 cm laceration (31-38 cm from the incisors) with GE junction documented to be at 45 cm. Mr. Villafana has an additional history significant for - Non insulin dependent Diabetes Mellitus - Hypertension - Chronic Kidney Disease - Chronic obstructive pulmonary disease - EtOH abuse disorder Patient initially presented to [place] ED (04/14/18) with chief complaint of hematemesis and melena following several days of nausea and vomiting (per bedside nurse). Hemoglobin was found to be 8.9 at that time, down from known 11.4 on 03/07/18. A anahi more tube was placed in the [facility] ED and transferred to [facility]. Upon arrival to [facility] patient received 2 U FFP, 2 U PRBC, CXR was without pneumomediastinum. Tony was removed and patient underwent upper endoscopy. Patient was intubated on pressor support prior to transfer. EGD (04/14/18): 4:20 PM - GE junction at 45 cm - Grade II Esophageal varices, 2 columns not actively bleeding - Laceration with adherent clot from 31 - 38 cm from incisors. Transferred to [facility] SICU at that time Has since undergone cross sectional imaging CT C/A: Long segment mid distal esophageal tear approximately 5.4 cm in length (T6-T8 level) - Small amount of enteric contrast extravasation and pneumomediastinum. Has been seen by thoracic surgery (Dr. Soto) who believe there eis a partial thickness esophageal tear without active extravasation into pleura or mediastinum. Without pneumomediastinum, pneumatosis of esophagus or free air. Pertinent Review of Systems: Unable to obtain Past Medical History: As outlined in HPI Past Surgical History: No past surgical history on file. Family History: No family history on file. Social History: Social History Marital status: Spouse name: Years of education: Number of children: Social History Main Topics Smoking status: Current Every Day Smoker Packs/day: 0.00 Years: 0.00 Alcohol use: Yes Drug use: Yes Allergies: ALLERGIES Allergen Reactions - Ciprofloxacin Unknown - Penicillin Unknown Medications: Prior to Admission Medications: aztreonam (AZACTAM) 1 g in D5W 100 mL Inject 100 mL intravenously every 8 hours. metroNIDAZOLE (FLAGYL) 500 mg/100 mL Inject 100 mL intravenously every 8 hours. NORepinephrine (LEVOPHED) 16 mg in D5W 250 mL Inject 0.6-30 mcg/min intravenously continuous. octreotide 500 mcg in D5W 100 mL Inject 50 mcg/hr intravenously continuous. pantoprazole (PROTONIX) 40 mg injection Inject 10 mL intravenously twice daily. propofol infusion (DIPRIVAN) 10 mg/mL injection Inject 0.485- 5.82 mg/min intravenously continuous. Current hospital medications: albumin (5%) 25 g infusion 25 g INTRAVENOUS ONCE albuterol 2.5 mg/0.5 mL 2.5 mg nebulizer solution (PROVENTIL) 2.5 mg INHALATION q 4 H PRN cefepime 2 g in D5W 100 mL MB+ (MAXIPIME) 2 g INTRAVENOUS q 12 H Chlorhexidine Gluconate 0.12 % 15 mL (PERIDEX) 15 mL ORAL QID dextrose 40 % 15 g 15 g ORAL PRN dextrose 50 % 12.5 g injection 12.5 g INTRAVENOUS PRN enteric contrast (radiology procedure) ORAL DIRECTED PRN fentaNYL 50 mcg/mL 25-50 mcg injection (SUBLIMAZE) 25-50 mcg INTRAVENOUS q 1 H PRN fluconazole 200 mg in NaCl (iso-osmotic) 100 mL (DIFLUCAN) 200 mg INTRAVENOUS DAILY glucagon 1 mg injection (GLUCAGEN) 1 mg INTRAMUSCULAR PRN insulin regular iv infusion 250 units in NaCl 0.9% 250 mL - ADULT DKA/HYPERGLYCEMIA NOMOGRAM 0.2-25.9 Units/hr INTRAVENOUS CONTINUOUS ipratropium-albuterol 3 mL nebulizer solution (DUONEB) 3 mL INHALATION q 4 H PRN lactated ringers 500 mL iv bolus 500 mL INTRAVENOUS ONCE lactated ringers 500 mL iv bolus 500 mL INTRAVENOUS ONCE LORazepam 1 mg injection (ATIVAN) 1 mg INTRAVENOUS q 2 H PRN LORazepam 2 mg injection (ATIVAN) 2 mg INTRAVENOUS q 2 H PRN LORazepam 2 mg injection (ATIVAN) 2 mg INTRAVENOUS q 1 H PRN metroNIDAZOLE 500 mg PREMIX piggyback (FLAGYL) 500 mg INTRAVENOUS q 8 H NaCl 0.9% 3-5 mL 3-5 mL INTRAVENOUS q 12 H NaCl 0.9% iv infusion 100 mL/hr INTRAVENOUS CONTINUOUS NORepinephrine 16 mg in D5W 250 mL (LEVOPHED) 0.6-50 mcg/min INTRAVENOUS CONTINUOUS octreotide 500 mcg in D5W 100 mL (SandoSTATIN) 50 mcg/hr INTRAVENOUS CONTINUOUS pantoprazole 40 mg injection (PROTONIX) 40 mg INTRAVENOUS BID AC (0600/1600) propofol infusion (DIPRIVAN) 5-60 mcg/kg/min INTRAVENOUS CONTINUOUS thiamine 200 mg in NaCl 0.9% 50 mL 200 mg INTRAVENOUS q 8 H vancomycin dosing and monitoring per pharmacy OTHER As Directed vasopressin 20 units in D5W 100 mL (VASOSTRICT) 0.03 Units/min INTRAVENOUS CONTINUOUS Physical Exam: Vital Signs 04/15/18 0500 04/15/18 0515 04/15/18 0530 04/15/18 0545 BP: Pulse: 92 100 98 95 Resp: 23 24 26 25 Temp: TempSrc: SpO2: 96% 93% 92% 94% Intake/Output Summary (Last 24 hours) at 04/15/18 0557 Last data filed at 12/28/18 0500 Gross per 24 hour Intake 3000 ml Output 580 ml Net 2420 ml VITAL SIGNS: BP 113/59 Pulse 95 Temp (Src) 100.6 (Oral) Resp 25 SpO2 94% General appearance: Intubated, sedated Skin: + blanching spider angiomata across chest HEENT: Anicteric Lungs: Coarse central bronchial breath sounds Heart: RRR without murmur Abdomen: Soft, no grimace to palpation, without appreciable hepatomegaly, dullness in traube's space to suggest splenomegaly Extremities: Without edema Neuro:Without down beating clonus on foot dorsiflexion to suggest HE Labs: CBC, Coags, BMP, Mg, Phos Recent Labs 04/15/18 0609 04/15/18 0500 04/15/18 0345 04/15/18 0127 04/14/18 2206 04/14/18 2120 04/14/18 1700 WBC -- -- 15.85* -- -- 22.38* 20.86* HB -- -- 8.1* -- -- 8.9* 8.0* HCT -- -- 23.4* -- -- 26.0* 25.0* PLT -- -- 90* -- -- 117* 102* INR -- 1.3 Unable to assay. Specimen improperly collected/handled. -- -- 1.3 1.35* APTT -- -- Unable to assay. Specimen improperly collected/handled. -- -- -- -- NA -- -- 136 -- -- 140 136 K -- -- 4.8 -- -- 5.0 6.6* CHLOR -- -- 98 -- -- 100 102 CO2 -- -- 23 -- -- 24 22 BUN -- -- 74* -- -- 76* 73* CREAT -- -- 2.47* -- -- 2.71* 2.66* GLUC -- -- 359* -- -- 445* 545* IC 1.08 -- -- 1.12 1.05* -- -- CA -- -- 7.9* -- -- 7.1* 7.0* MG -- -- 1.7 -- -- 1.3* -- P -- -- 2.9 -- -- 4.7 -- Liver Function, Amylase, AND Lipase Recent Labs 04/15/18 0609 04/15/18 0345 04/15/18 0127 04/14/18 2206 04/14/18 2120 04/14/18 1700 TPROT -- 5.2* -- -- 4.9* 5.1* ALB -- 2.6* -- -- 2.4* 2.2* ALT -- 23 -- -- 23 27 AST -- 44* -- -- 36 28 ALKPHOS -- 47 -- -- 50 64 TBILI -- 0.4 -- -- 0.7 0.7 LACT 3.1* -- 3.7* 5.3* -- 8.4* SIGNATURE: Dakotah Rodriges DO PATIENT NAME: Lazaro Villafana DATE: April 15, 2018 TIME: 5:57 AM PAGER/CONTACT #: [phone] Antonina Diaz RN, RN 04/15/2018 7:15 AM Addendum Nursing Progress Note Topic of Note: Daily Note Lazaro Villafana [id number] Admitted to G53-04 with ETT, NG, levo, prop, insulin, TB precautions for 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 Not following commands, PERRL, Tachycardic, hypotensive, ABG sent A line placed, R IJ triple placed, DKA insulin protocol begun Blood cultures x1 sent Vaso 0.03 hung NG noted to be coiled in mouth, primary at bedside NG removed by primary, new NG inserted by Dr Bennett 25 at the nares. CXR ordered and okay by primary to give CT contrast. 20cc contrast pushed, pt began coughing/gagging, SICU at beside for bronch NG noted NOT to be in trachea, okay to resume contrast Contrast given, transport at bedside for CT imaging Thoracic at bedside for consult, recommend GI for EGD CIWA protocol begun, 1mg ativan given Alcohol/EToH GGT blood and urine tox screen sent Scant melena stool Gastroenterology at bedside for consult This note was completed by: Antonina Diaz, BLAYNE Previous Version Francois Gann MD,PhD 04/15/2018 7:15 AM Cosign [facility] SURGERY CONSULT PROGRESS NOTE Lazaro Villafana [id number] PRIMARY SERVICE: HOSPITAL DAY: # 1 INTERVAL HISTORY Pt continues to be critically ill. Currently stable. On pressors, sedated and intubated. PHYSICAL EXAM BP 113/59 Pulse 93 Temp (!) 38.1 ?C (100.6 ?F) (Oral) Resp 25 SpO2 95% Intake/Output Summary (Last 24 hours) at 04/15/18 0712 Last data filed at 04/15/18 0700 Gross per 24 hour Intake 5338.5 ml Output 735 ml Net 4603.5 ml Constitutional: intubated and sedated HEENT: intubated Resp: VENT FiO2 40, PEEP 10. Cardiovascular: Cardiac: Norepi 20, Vasopressin Integumentary: Warm Musculoskeletal: No deformities Neurological/Psychiatric: intubated and sedated Additional systems reviewed: No additional systems reviewed DATA Recent Labs 04/15/1834404/14/18211904/14/18 1700 WBC 15.85* 22.38* 20.86* HB 8.1* 8.9* 8.0* HCT 23.4* 26.0* 25.0* PLT 90* 117* 102* Recent Labs 04/15/1834404/14/18211904/14/18 1700 NA 136 140 136 K 4.8 5.0 6.6* CO2 23 24 22 BUN 74* 76* 73* CREAT 2.47* 2.71* 2.66* GLUC 359* 445* 545* MG 1.7 1.3* -- IMAGING I personally reviewed: CT ASSESSMENT AND PLAN 52 year old male with multiple medical comorbidities now with likely partial thickness esophageal perforation, putatively from S-B tube placement at OSH. It is unlikely that this is the etiology of his massive hemoptysis, reportedly there were multiple varices that, in the background of cirrhosis is the likely etiology of his bleed. While he is requiring high doses of vasopressors, it is unlikely that the source of his shock is purely from his esophageal perforation given his lack of pleural effusion or free flowing contrast. Most tellingly, he has NO MEDIASTINAL AIR despite EGD done at OSH - if there were a full thickness tear, there would likely be massive pneumomediastinum from insufflation. ? Plan: - STRICT NPO - no water, ice chips, etc. NO meds through EGD/[facility] - EVERYTHING IV - Continue broad spectrum ABX - Do NOT manipulate NGT blindly - Recommend GI consult with possible repeat EGD and endoluminal intervention - endoclips vs stenting. Concomitantly recommend suction of blood in stomach and NGT placement under direct endoscopic visualization. 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 Patient initially presented with hematemesis and melena with accompanying dizziness and shortness of breath. Now being admitted to the SICU for surgical evaluation and hemodynamic monitoring. Currently remains intubated and sedated on Levo, Vaso, Insulin, Octreotide. Assessment done by review for EMR. Lives independently with . 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 She states his last drink was 04/13 and had 2 24oz Ales. Laser Specialist to follow for discharge planning pending POC and medical stability. 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 No Advance Directive: Current Advance Directive: None Audiovisual Aids Technician Attempted to Assist with AD Completion: No Unable to Assist Due To:: Sedation Health Literacy Assessment: Patient is unable to complete at this time due to intubation. FUNCTIONAL AND COGNITIVE/BEHAVIORAL PRIOR TO ADMISSION ASSESSMENT: Unable to complete assessment at this time due to intubation Has the Patient Been in a [facility] Facility in the Past 30 days? No SOCIAL: Living Arrangement: Home Lives With: Spouse Financial Resources: N/A Primary Contact: Extended Emergency Contact Information Primary Emergency Contact: Sushila Villafana Address: [address] [place] [id number] Relation: Spouse Supportive: Yes Other Important Patient Contacts: None Caregiver Assessment: Caregiver is ready, willing and able to meet the patient's needs as recommended by the inter-professional team? Needs unknown Patient's transition needs and plan for meeting these needs: tbd Does the patient have an acute stroke diagnosis, or has the patient had a stroke during this admission? No Medicaiton Adherence: Patient is unable to complete at this time due to intubation. Are you interested in bedside delivery of your medications? Yes Food Concerns: In the Last Month, Have You had Trouble Getting Food? Unable to assess During the Last Month, Have You Worried Whether Your Food Would Run Out Before You Had Enough Money to Buy More? Unable to assess Is the Patient Psychosocially Complex? No ASSESSMENT AND PLAN: Medical Needs: 2 or more chronic diseases Psychosocial Needs: None FREEDOM OF CHOICE EXPLAINED: N/A POTENTIAL TRANSITION PLANS To Be Determined SIGNATURE: Rai Kramer RN PATIENT NAME: Lazaro Villafana DATE: April 15, 2018 TIME: 7:12 AM PAGER/CONTACT #: [phone] Roberto Cooley MD 04/15/2018 12:50 PM Signed SURGICAL INTENSIVE CARE UNIT PROGRESS NOTE SERVICE DATE: April 15, 2018 SERVICE TIME: 8:50 AM Subjective MAJOR ISSUES: 04/14 Hematemesis s/p EGD at OSH c/b esophageal laceration vs perforation vs esophageal variceal bleeding admitted from OSH for surgical evaluation and hemodynamic monitoring. Objective VITAL SIGNS Temp: 37.6 ?C (99.7 ?F) Pulse: 96 Arterial BP 1: 105/53 MAP Invasive (Mean Arterial Pressure) 1: 67 Resp: 25 SpO2: 95 % Not applicable Current Facility-Administered Medications: albuterol 2.5 mg/0.5 mL 2.5 mg nebulizer solution (PROVENTIL) 2.5 mg INHALATION q 4 H PRN cefepime 2 g in D5W 100 mL MB+ (MAXIPIME) 2 g INTRAVENOUS q 12 H Chlorhexidine Gluconate 0.12 % 15 mL (PERIDEX) 15 mL ORAL QID dextrose 40 % 15 g 15 g ORAL PRN Or glucagon 1 mg injection (GLUCAGEN) 1 mg INTRAMUSCULAR PRN Or dextrose 50 % 12.5 g injection 12.5 g INTRAVENOUS PRN enteric contrast (radiology procedure) ORAL DIRECTED PRN fentaNYL 50 mcg/mL 25-50 mcg injection (SUBLIMAZE) 25-50 mcg INTRAVENOUS q 1 H PRN fluconazole 200 mg in NaCl (iso-osmotic) 100 mL (DIFLUCAN) 200 mg INTRAVENOUS DAILY insulin regular iv infusion 250 units in NaCl 0.9% 250 mL - ADULT DKA/HYPERGLYCEMIA NOMOGRAM 0.2-25.9 Units/hr INTRAVENOUS CONTINUOUS ipratropium-albuterol 3 mL nebulizer solution (DUONEB) 3 mL INHALATION q 4 H PRN lactated ringers 500 mL iv bolus 500 mL INTRAVENOUS ONCE LORazepam 1 mg injection (ATIVAN) 1 mg INTRAVENOUS q 2 H PRN LORazepam 2 mg injection (ATIVAN) 2 mg INTRAVENOUS q 2 H PRN LORazepam 2 mg injection (ATIVAN) 2 mg INTRAVENOUS q 1 H PRN metroNIDAZOLE 500 mg PREMIX piggyback (FLAGYL) 500 mg INTRAVENOUS q 8 H mupirocin 2% 0.5 g nasal ointment (BACTROBAN) 0.5 g NASAL BID NaCl 0.9% 3-5 mL 3-5 mL INTRAVENOUS q 12 H NaCl 0.9% iv infusion 100 mL/hr INTRAVENOUS CONTINUOUS NORepinephrine 16 mg in D5W 250 mL (LEVOPHED) 0.6-50 mcg/min INTRAVENOUS CONTINUOUS octreotide 500 mcg in D5W 100 mL (SandoSTATIN) 50 mcg/hr INTRAVENOUS CONTINUOUS pantoprazole 40 mg injection (PROTONIX) 40 mg INTRAVENOUS BID AC (0600/1600) propofol infusion (DIPRIVAN) 5-60 mcg/kg/min INTRAVENOUS CONTINUOUS thiamine 200 mg in NaCl 0.9% 50 mL 200 mg INTRAVENOUS q 8 H vancomycin dosing and monitoring per pharmacy OTHER As Directed vasopressin 20 units in D5W 100 mL (VASOSTRICT) 0.03 Units/min INTRAVENOUS CONTINUOUS Intake/Output Summary (Last 24 hours) at 04/15/18 0849 Last data filed at 04/15/18 0700 Gross per 24 hour Intake 5338.5 ml Output 735 ml Net 4603.5 ml Current Weight: Admission Weight: PHYSICAL EXAM Neuro: Sedated Cardiovascular: Regular rhythm Respiratory Clear to auscultation. Breath Sounds Equal: Yes Mechanical Ventilation: Vent Mode: PC CMV Freq (bpm): 16 PS (cmH20): 5 PEEP / CPAP (cmH20): 8 FIO2 (%): 40 Recent Labs 04/15/18 0609 04/15/18 0127 PH 7.39 7.36 PO2 152* 83* PCO2 42 45 BE 1 0 HCO3 25 25 LACT 3.1* 3.7* Abdomen: Soft and Nontender Extremities: no edema Skin: intact INFUSION(S): ocreotide, norepinephrine, propofol, insulin, vasopressin Patient Lines Assessed: A-Line: Site: Left radial, Day #: 1, Rewired: No, Fresh stick: Yes Central Line: Site: Right internal jugular , Day #: 1, Rewired: No, Fresh stick: Yes Diagnostic tests reviewed for today's visit: Most recent labs and imaging results. Assessment/Plan Mr. 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 Patient initially presented with hematemesis and melena with accompanying dizziness and shortness of breath. Now being admitted to the SICU for surgical evaluation and hemodynamic monitoring. ? Neuro: hx of heavy EtOH use, last drink on 04/13 -- tachypnea requiring intubation at OSH --Sedation with propofol. Will switch to dexmedetomidine for history of heavy EtOH use. -- will talk with family to get better history of EtOH use --thiamine and folic acid CV: Currently on levophed and vasopressin --Wean pressors as tolerated for MAPs >65 ? Pulm: Hx of COPD. Intubated. Vent Mode: PC CMV Freq (bpm): 16 PS (cmH20): 5 PEEP / CPAP (cmH20): 8 FIO2 (%): 40 --Continue home bronchodilators --BPH, duonebs prn ? Renal: LIANE with Cr 2.47 (baseline ~1.2 from 02/2018) --Monitor Cr and I/Os --[place] ? GI: Likely partial thickness esophageal perforation. Presented from OSH on 04/14 with hematemesis, melena dizziness and SOB. EtOH cirrhosis with portal HTN, grade 2 esophageal varices -- EGD at OSH showed no mediastinal air -- 04/15 CT chest/abd/pel - mid distal esophageal tear 5.4cm from T6-T8. Small amount of enteric contrast extravasation and pneumomediastinum. NG/OG - GI will perform EGD with esophageal stent this afternoon --Pantoprazole for GI ppx --Octreotide gtt for GI bleed --strict NPO --NGT placed at OSH during EGD - DO NOT MANIPULATE BLINDLY -- thoracic does not recommend open surgical intervention but does rec endoscopy by GI. Perforation appears to be contained. Likely iatrogenic tear from the tube placement. ? Heme: Transfused 4 pRBC, 2 FFP and 1 platelets prior to transfer at OSH -- Hgb 8.1. -- platelets 90 --Transfuse to keep Hgb >7 ? Fluid/Electrolyte/Nutrition: --NPO --Replete lytes per SICU protocol ? Endo: Hx of IDDM, HgbA1c 8.2. - glucose 611 at OSH, 445 on admission --Continue insulin gtt ? ID: Esohageal perf. WBC 15.85, lactate 8.4 on admission, now 7.7. Febrile overnight, Tmax 38.1 Cultures/labs: - 04/14 blood culture - NGTD - 04/14 TB blood screen - in process - 04/14 procalcitonin 2.67 - aztreonam and flagyl at OSH - empiric coverage with cefepime, fluconazole, flagyl - vancomycin stopped this AM - NRSA nares neg - consult to ID Medication and Non-Pharmacologic VTE Prophylaxis/Anticoagulants 04/14/18 2100 pneumatic compression stockings ([place]) 04/14/18 2100 activity - mobilize patient ([place] VTE Prophylaxis: VTE prophylaxis appropriate SIGNATURE: Jen Gorman MD, PGY-3 resident PATIENT NAME: Lazaro Villafana DATE: April 15, 2018 TIME: 8:49 AM PAGER/CONTACT #: [phone] SICU STAFF PHYSICIAN NOTE OF PERSONAL INVOLVEMENT IN CARE I have reviewed the progress note obtained and documented by the resident and I personally participated in the jang components as documented above regarding the following problems or issues and made appropriate changes below. Upon my evaluation, this patient had a high probability of imminent or life-threatening deterioration, which required my direct attention, intervention, personal management and decision making. These issues or problems included: Close monitoring of the following has been required: respiratory status, cardiac status, acute GI bleeding and mediastinal infection ASSESSMENTANDPLAN: Esophageal perforation Mediastinitis Septic shock Leukocytosis Tachycardia Hypotension LIANE Hypoalbuminemia Acute blood loss anemia GI Bleeding Thrombocytopenia Pt was transferred in from outside hospital with an esophageal perf., that appears to show air in the mediastinum and possible extravasation of contrast as well. GI is to do an EGD with possible intervention with a stent. Pt is currently in shock secondary to the infection with broad spectrum ABX and anti-fungal, hx of MRSA in nares as well. On vasopressin and levophed with a current lactate of 3.1 on last ABG, after multiple boluses. Vent with mild-mod amount of support with good ventilation and oxygenation on current settings. Slight improvement in LIANE, will continue to support. DISPOSITION: SICU I devoted my full attention to the direct care of this patient for the amount of time indicated below, time includes review of laboratory data, radiology results, discussion with consultants, and monitoring for potential decompensation. Time I spent with family or surrogate(s) is included only if the patient was incapable of providing the necessary information or participating in medical decision making. Time devoted to teaching and to any procedures I billed separately is not included. Time spent providing critical care services: 45 minutes. SIGNATURE: Hilda Cooley M.D. DATE: April 15, 2018 12:42 PM Previous Version EARNESTINE SEGURA 04/15/2018 9:04 AM Signed PHARMACY VANCOMYCIN DOSING NOTE Patient Name: Lazaro Villafana Admission Date: 04/14/2018 Date of Consult: 04/15/2018 Time of Consult: 9:03 AM Indication: Source Unknown; empiric Goal Range: 15-25 mcg/mL RECOMMENDATIONS/PLAN: Pharmacy consulted for vancomycin dosing for Lazaro Villafana, a 52 year old, male who is being treated with vancomycin for empiric therapy 1. The primary service has discontinued vancomycin therapy. Pharmacy vancomycin dosing service will sign off. Thank you for allowing us to participate in this patient's care. Please contact pharmacy if questions. EARNESTINE SEGURA [phone] Jose Rodriguez, RN, RN 04/15/2018 9:07 AM Signed Nursing Progress: Topic: RESTRAINT NON-VIOLENT PATIENT NAME: Lazaro Villafana PATIENT LOCATION: [place] [address] The patient demonstrates Attempting to Remove Medical Devices Vital to Medical Stability, Confusion, Lack of Understanding/Ability to Comply with Safety Directions, Impulsive Behavior, Inability to be Redirected, Inability to Retain Information Regarding Safety Directions as evidenced by the following behaviors Reaching for lines and ETT which pose an imminent danger to self or others. The following interventions were attempted but were not effective in protecting the patient's safety: Contraindicated - Imminent Safety Risk Next, a comprehensive assessment was performed and warranted placing the patient in Soft Bilateral Wrists, the least restrictive restraint needed to protect the patient's safety. Ongoing safety assessments and evaluation for earliest removal of restraints will be performed. DATE: April 15, 2018 TIME: 9:07 AM BLAYNE Pugh RN 04/15/2018 9:57 AM Signed INFECTION PREVENTION NOTE Admission Date: 04/14/2018 Patient does not meet criteria for Airborne Precautions. Precautions not required for history of positive PPD. SIGNATURE: Michelle Burks RN PATIENT NAME: Lazaro Villafana DATE: April 15, 2018 TIME: 9:54 AM PAGER/CONTACT #: [phone] Infection Prevention after hours/weekend pager: [phone] Leena Li MD 04/15/2018 2:40 PM Addendum INITIAL CONSULT INFECTIOUS DISEASE SERVICE DATE: 04/15/2018 SERVICE TIME: 10:11 AM We were asked to evaluate Mr. Lazaro Villafana, a 52 year old yo male by Dr. Greta Carballo for history of positive PPD. Our findings and recommendations will be communicated through the shared medical record. Subjective HPI: 52 yo M with a h/o : - Alcohol cirrhosis c/b portal HTN / EV - CKD - HTN - COPD - + PPD He presents to the SICU from [facility] on 04/14 for an esophageal tear/perforation. Required 3 units of PRBC at [place] [facility] prior to transfer EGD with clots covering tear; no intervention was done. Continues to be on pressors (Norepi 20 mcg this am AND vasopressin 0.03) WCC 22 on arrival and 15 this am. LIANE on CKD with improvement in Cr this am 2.4 (from 2.7 yesterday) Per documentation by primary team appears to have a history of + PPD (unclear in which health system) Unsure of treatment status. The patient is currently intubated for airway protection in the setting of varices and an esophageal rupture and history is unobtainable. Called Spouse (Sushila Villafana) at [phone] who is listed as emergency contact x 2 with no response. No family by bedside. RT suctioning this am without any thick sputum, dark blood tinge noted. He is on FiO2 40% since arrival with no challenge in mechanical ventilation. Exposure History Not assessed due to patient's critically ill status and no collateral history provided at this time CURRENT ANTIBIOTICS: 04/14 Aztreonam x 1 Metronidazole (04/14 - ) Fluconazole 500 (04/15 - ) Vancomycin x 1 (04/15) Current other medications reviewed. Current Facility-Administered Medications: albuterol 2.5 mg/0.5 mL 2.5 mg nebulizer solution (PROVENTIL) 2.5 mg INHALATION q 4 H PRN cefepime 2 g in D5W 100 mL MB+ (MAXIPIME) 2 g INTRAVENOUS q 12 H Chlorhexidine Gluconate 0.12 % 15 mL (PERIDEX) 15 mL ORAL QID dextrose 40 % 15 g 15 g ORAL PRN Or glucagon 1 mg injection (GLUCAGEN) 1 mg INTRAMUSCULAR PRN Or dextrose 50 % 12.5 g injection 12.5 g INTRAVENOUS PRN enteric contrast (radiology procedure) ORAL DIRECTED PRN fentaNYL 50 mcg/mL 25-50 mcg injection (SUBLIMAZE) 25-50 mcg INTRAVENOUS q 1 H PRN fluconazole 200 mg in NaCl (iso-osmotic) 100 mL (DIFLUCAN) 200 mg INTRAVENOUS DAILY insulin regular iv infusion 250 units in NaCl 0.9% 250 mL - ADULT DKA/HYPERGLYCEMIA NOMOGRAM 0.2-25.9 Units/hr INTRAVENOUS CONTINUOUS ipratropium-albuterol 3 mL nebulizer solution (DUONEB) 3 mL INHALATION q 4 H PRN metroNIDAZOLE 500 mg PREMIX piggyback (FLAGYL) 500 mg INTRAVENOUS q 8 H mupirocin 2% 0.5 g nasal ointment (BACTROBAN) 0.5 g NASAL BID NaCl 0.9% 3-5 mL 3-5 mL INTRAVENOUS q 12 H NaCl 0.9% iv infusion 100 mL/hr INTRAVENOUS CONTINUOUS NORepinephrine 16 mg in D5W 250 mL (LEVOPHED) 0.6-50 mcg/min INTRAVENOUS CONTINUOUS octreotide 500 mcg in D5W 100 mL (SandoSTATIN) 50 mcg/hr INTRAVENOUS CONTINUOUS pantoprazole 40 mg injection (PROTONIX) 40 mg INTRAVENOUS BID AC (0600/1600) propofol infusion (DIPRIVAN) 5-60 mcg/kg/min INTRAVENOUS CONTINUOUS thiamine 200 mg in NaCl 0.9% 50 mL 200 mg INTRAVENOUS q 8 H vasopressin 20 units in D5W 100 mL (VASOSTRICT) 0.03 Units/min INTRAVENOUS CONTINUOUS PAST MEDICAL HISTORY Diagnosis Date - Cirrhosis (HCC) - COPD (chronic obstructive pulmonary disease) (HCC) - Diabetes (HCC) - Hypertension No past surgical history on file. Social History Marital status: Spouse name: Years of education: Number of children: Social History Main Topics Smoking status: Current Every Day Smoker Packs/day: 0.00 Years: 0.00 Alcohol use: Yes Drug use: Yes No family history on file. ALLERGIES Allergen Reactions - Ciprofloxacin Unknown - Penicillin Unknown Objective REVIEW OF SYSTEMS: Unobtainable. PHYSICAL EXAM:Temp (24hrs), Av.7 ?C (99.9 ?F), Min:37.4 ?C (99.3 ?F), Max:38.1 ?C (100.6 ?F) Temp (120hrs), Av.7 ?C (99.9 ?F), Min:37.4 ?C (99.3 ?F), Max:38.1 ?C (100.6 ?F) BP 108/55 Pulse 100 Temp 37.6 ?C (99.7 ?F) (Oral) Resp 30 SpO2 96% Lines: Mcclain 04/14, Nontunnelled triple lumen 04/14 in R neck, ET tube 04/14, NG in L nare 04/14, L radial A-line 04/14 GENERAL APPEARANCE: Patient is critically ill appearing. Sedated. SKIN: No lesions noted. EYES: PERRLA NOSE: Left Nare Ng tube in place. NECK: R nontunnelled triple lumen catheter with no overlying erythema, swelling or warmth. LUNGS: clear to auscultation, no wheezes, or crackles. HEART: Regular rate/rhythm, normal heart sounds, and no murmurs. ABDOMEN: Soft, epigastric tenderness, BS present. EXTREMITIES: Edema of hands b/l, no LE edema. NEURO: Sedated, not following commands. LABS: WBC Date Value 04/15/2018 15.85 k/uL 04/14/2018 22.38 k/uL 04/14/2018 20.86 thou/cmm 04/14/2018 21.54 thou/cmm 03/07/2018 3.17 k/uL Creatinine (mg/dL) Date Value 04/15/2018 2.47 04/14/2018 2.71 04/14/2018 2.66 04/14/2018 2.21 03/07/2018 1.20 Lab Results Component Value Date NEUTP 62.8 03/07/2018 ABSNEUT 1.99 03/07/2018 LYMPHP 28.4 03/07/2018 ABSLYMPH 0.90 03/07/2018 ABSMONO 0.21 03/07/2018 EODINP 1.6 03/07/2018 ABSEOSIN 0.05 03/07/2018 BASOP 0.6 03/07/2018 ABSBASO 0.02 03/07/2018 Lab Results Component Value Date PLT 90 04/15/2018 HB 8.1 04/15/2018 HCT 23.4 04/15/2018 ALB 2.6 04/15/2018 CA 7.9 04/15/2018 TBILI 0.4 04/15/2018 ALKPHOS 47 04/15/2018 AST 44 04/15/2018 GLUC 359 04/15/2018 BUN 74 04/15/2018 NA 136 04/15/2018 K 4.8 04/15/2018 CHLOR 98 04/15/2018 CO2 23 04/15/2018 ANION 15 04/15/2018 ALT 23 04/15/2018 No results found for: WSR, CRP, IGG No results found for: VANCOPRE, VANCORA MICROBIOLOGY: 04/14 Nasal MRSA negative, positive for staphylococcus aureus 04/14 Blood culture x 1 negative to date 04/14 Blood TB screen in process IMAGING: CT Chest WO contrast (04/14) 1. ?Long segment mid-distal esophageal tear extending approximately 5.4 cm in length along the right margin from the levels of T6- T8 vertebral bodies. ?Small amount of enteric contrast extravasation and pneumomediastinum. ?NG/OG tube tip in the upper esophagus. 2. ?Bilateral posterior lower lobe atelectasis/consolidative opacities (right greater than left), possibly related to aspiration and/or bilateral lower lobe pneumonia. ?Trace right pleural effusion. 3. ?Additional findings as described. DATA: Diagnostic Tests Reviewed for Today's Visit: Most recent labs and imaging results. Impression/Recommendations 52 yo M with a h/o cirrhosis, EtoH related, CKD, COPD and reported + PPD in the past. Currently no clinical or imaging evidence of pulmonary TB. DDx: Latent TB Plan: - No evidence of active TB, no need for respiratory isolation - Currently critically ill and latent TB status can be addressed in the outpatient setting vs if transplantation planned. - Will obtain collateral history from family when available. - For Esophageal tear c/b pneumomediastinum continue fluconazole, and metronidazole. Thank you very much for inviting us to participate in the care of this patient. SIGNATURE: Jeniffer Gil MD PATIENT NAME: Lazaro Villafana DATE: April 15, 2018 TIME: 10:11 AM PAGER/CONTACT #: [phone] [facility] STAFF PHYSICIAN NOTE OF PERSONAL INVOLVEMENT IN CARE Events reviewed. Patient examined. Findings as outlined in the resident's note above. Jang elements verified. ? Relevant lab data, microbiology and imaging data reviewed. Relevant images personally reviewed. ? Agree with assessment and plan as outlined in the resident's note above. I was physically present for the critical portions of the service provided by the ID team. The management plan reflects my input. ? Marguerite Li MD Staff, Department of Infectious Disease Pager: [phone] Marguerite Li [phone] Previous Version Ekaterina Zabala PT 04/15/2018 11:38 AM Signed PHYSICAL THERAPY MISSED VISIT SERVICE DATE: 04/15/2018 SERVICE TIME: 1137 to 1137 ROOM: [place] [address] Attempted Evaluation. Patient not medically appropriate for PT. Currently intubated, sedated, and on pressors. Will reattepmt at another time. SIGNATURE: Ekaterina Zabala PT PATIENT NAME: Lazaro Villafana DATE: April 15, 2018 TIME: 11:38 AM Estrellita Fung, RN, RN 04/15/2018 1:25 PM Signed Nursing Progress Note Patient Name: Lazaro Villafana [id number] GI at bs to scope This note was completed by: BLAYNE Dooley Chaplain, Chaplain 04/15/2018 3:05 PM Signed HEALING SERVICES THERAPY NOTE SERVICE DATE: 04/15/2018 SERVICE TIME: 1437 INTERVENTIONAL FOCUS: Other: Introductory visit Visit With: Patient Urgency of Visit: Routine Type of Visit: Patient Not Available, in with medical team Patient and/or Family currently not available to speak with. Left materials and contact information at bedside. SIGNATURE: Amauri Holland MDiv., Healing Services Specialist PATIENT NAME: Lazaro Villafana DATE: April 15, 2018 TIME: 3:04 PM PAGER/CONTACT #: [phone] Dony Baires MD, MD 04/16/2018 7:28 AM Addendum Patient is s/p EGD at bedside with evidence of hematin and blood clots in both esophagus and stomach. Deep esophageal tear previously described noted ~5 cm in length (please refer to procedure note for full details). This is not amenable to endoscopic esophogeal stenting. - Will communicate with CT surgery - Please continue patient on PPI IV BID - Please continue patient on octreotide - Rest of recs per consult note Dony Baires Fellow, Gastroenterology AND Hepatology April 15, 2018 4:07 PM Previous Version AMY LANG OT/Julio 04/15/2018 4:46 PM Signed OCCUPATIONAL THERAPY MISSED VISIT SERVICE DATE: 04/15/2018 SERVICE TIME: 1118 to 1118 ROOM: [place] [address] Attempted Evaluation. Patient not seen due to Illness. Will attempt again as schedule permits. SIGNATURE: AMY LANG OT/Julio PATIENT NAME: Lazaro Villafana DATE: April 15, 2018 TIME: 4:46 PM German Cavazos RN, RN 04/15/2018 11:13 PM Signed Nursing Progress: Topic: RESTRAINT NON-VIOLENT PATIENT NAME: Lazaro Villafana PATIENT LOCATION: [place] [address] The patient demonstrates Attempting to Remove Medical Devices Vital to Medical Stability, Confusion, Lack of Understanding/Ability to Comply with Safety Directions, Impulsive Behavior, Inability to be Redirected, Inability to Retain Information Regarding Safety Directions as evidenced by the following behaviors attempting to pull at lines and tubes which pose an imminent danger to self or others. The following interventions were attempted but were not effective in protecting the patient's safety: Contraindicated - Imminent Safety Risk Next, a comprehensive assessment was performed and warranted placing the patient in Soft Bilateral Wrists, the least restrictive restraint needed to protect the patient's safety. Ongoing safety assessments and evaluation for earliest removal of restraints will be performed. DATE: April 15, 2018 TIME: 11:12 PM BLAYNE Parks MD,PhD 04/16/2018 7:55 AM Attested Attestation signed by Elliot Soto at 04/16/2018 2:52 PM Agree with consult progress note. The patient's hospital course, labs and imaging have been reviewed daily with consult recommendations formulated and discussed each day with resident team. Patient seen and examined at bedside. Showing some signs of clinical improvement. EGD images reviewed and discussed with interventional GI. Agree with plan to defer placement of esophageal stent. Patient will require strict NPO for a minimum of 2 weeks and will need another swallow study to evaluate partial-thickness esophageal tear. Elliot Soto MD [facility] THORACIC SURGERY CONSULT PROGRESS NOTE Lazaro Villafana [id number] PRIMARY SERVICE: HOSPITAL DAY: # 2 INTERVAL HISTORY No acute events overnight. Pt was off pressors, now back on Norepi 3 due to hypotension. EGD by GI yesterday, 5cm esophageal laceration.. PHYSICAL EXAM BP 92/55 Pulse 71 Temp 37.3 ?C (99.1 ?F) (Oral) Resp 11 Wt 106.1 kg (233 lb 14.5 oz) SpO2 97% BMI 33.56 kg/m? Intake/Output Summary (Last 24 hours) at 04/16/18 0631 Last data filed at 04/16/18 0600 Gross per 24 hour Intake 7310.8 ml Output 2020 ml Net 5290.8 ml Constitutional: intubated, opens eyes HEENT: intubated Resp: VENT FiO2 50, PEEP 10. Cardiovascular: Cardiac: Norepi 3 Integumentary: Warm Musculoskeletal: No deformities Neurological/Psychiatric: intubated Additional systems reviewed: No additional systems reviewed DATA Recent Labs 04/16/18 0031 04/15/18 1637 04/15/18 0345 WBC 4.84 9.57 15.85* HB 7.8* 6.4* 8.1* HCT 22.6* 18.7* 23.4* PLT 35* 48* 90* Recent Labs 04/16/18 0031 04/15/18 0345 04/14/18 2120 NA 139 136 140 K 4.0 4.8 5.0 CO2 23 23 24 BUN 67* 74* 76* CREAT 1.97* 2.47* 2.71* GLUC 238* 359* 445* MG 1.3* 1.7 1.3* IMAGING I personally reviewed: CXR ASSESSMENT AND PLAN 52 year old male with multiple medical comorbidities now with likely partial thickness esophageal perforation, putatively from S-B tube placement at OSH. It is unlikely that this is the etiology of his massive hemoptysis, reportedly there were multiple varices that, in the background of cirrhosis is the likely etiology of his bleed. While he is requiring high doses of vasopressors, it is unlikely that the source of his shock is purely from his esophageal perforation given his lack of pleural effusion or free flowing contrast. 04/15 EGD showed 5cm esophageal laceration without active bleeding. ? Plan: - STRICT NPO - Do NOT manipulate NGT blindly - no acute surgical intervention indicated at this point Francois Gann MD,PhD Pager [phone] 04/16/2018 6:31 AM Dony Baires MD, MD 04/16/2018 7:35 AM Addendum This is a 52 YO M with history of presumed alcoholic cirrhosis who presented with hematemesis requiring Tony placement. Found to have esophageal varices on EGD along with an esophogeal tear. Patient was transferred to [facility] for CT surgery and GI evaluation. S/P EGD on 04/15 with noted significant deep esophageal tear from 31-38 cm along with large EV varices. This was not amenable for stenting given significant dilation. Recs: --- Strict NPO --- Continue pantoprazole 40 mg IV BID --- Octreotide for at least 7 days --- Cont broad antimicrobials --- Trend hemoglobin Q8 hours --- Transfuse blood products to maintain Hb > 7, Plt > 50, INR < 1.5 --- Continue to monitor for recurrent overt GIB. --- Consider hepatology consult for management of presumed cirrhosis --- Appreciate CT surgery recs ICU GI team will sign off. Dony Baires Fellow, Gastroenterology AND Hepatology April 16, 2018 7:34 AM Previous Version Tammy Rocha MD 04/16/2018 11:03 AM Addendum GENERAL SURGERY PROGRESS NOTE ASSESSMENT AND PLAN 52 year old male with PMHx type II DM, poorly controlled HTN, CKD, COPD, tobacco smoker 2-3 PPD, alcohol use disorder with recent diagnosis of cirrhosis who presents on transfer from OSH with hematemesis s/p EGD at OSH c/b esophageal laceration vs Boerhaave's vs injury related to [place] tube on pressors intubated/sedated -supportive care - trend labs - may need repeat imaging to r/o mediastinal abscess - GI and thoracic surgery following - SICU *After 6pm and on weekends please page general surgery director of early childhood education [phone]* SUBJECTIVE/INTERVAL EVENTS EGD by GI yesterday w/ deep esophageal tear seen; not amenable to stenting OBJECTIVE BP 102/59 Pulse 72 Temp 37.3 ?C (99.1 ?F) (Oral) Resp 17 Wt 106.1 kg (233 lb 14.5 oz) SpO2 96% BMI 33.56 kg/m? Intake/Output Summary (Last 24 hours) at 04/16/18 0659 Last data filed at 04/16/18 0600 Gross per 24 hour Intake 7310.8 ml Output 2020 ml Net 5290.8 ml General: sedated, ill appearing CV: on pressors Pulm: vent Neck: no subQ crepitus appreciated Abdomen: soft Neuro: limited exam 2/2 sedation Labs/Imaging: CBC, BMP, MG, PHOS Recent Labs 04/16/18 0031 04/15/18 1637 04/15/18 0345 04/14/18211904/14/18 1700 03/07/18 0515 WBC 4.84 9.57 15.85* 22.38* 20.86* < > 3.17* HB 7.8* 6.4* 8.1* 8.9* 8.0* < > 11.4* HCT 22.6* 18.7* 23.4* 26.0* 25.0* < > 34.2* PLT 35* 48* 90* 117* 102* < > 46* NA 139 -- 136 140 136 < > 146* K 4.0 -- 4.8 5.0 6.6* < > 4.4 CHLOR 103 -- 98 100 102 < > 111* CO2 23 -- 23 24 22 < > 26 BUN 67* -- 74* 76* 73* < > 23* CREAT 1.97* -- 2.47* 2.71* 2.66* < > 1.20 GLUC 238* -- 359* 445* 545* < > 155* CA 7.2* -- 7.9* 7.1* 7.0* < > 8.9 MG 1.3* -- 1.7 1.3* -- -- 1.5 P 2.6* -- 2.9 4.7 -- -- 3.3 < > = values in this interval not displayed. Liver Function, Amylase, AND Lipase Recent Labs 04/16/18 0613 04/16/18 0106 04/16/18 0031 04/15/18 1636 04/15/18 0609 04/15/185 04/14/18211904/14/18 1700 TPROT -- -- 5.2* -- -- 5.2* -- 4.9* 5.1* ALB -- -- 2.7* -- -- 2.6* -- 2.4* 2.2* ALT -- -- 22 -- -- 23 -- 23 27 AST -- -- 39 -- -- 44* -- 36 28 ALKPHOS -- -- 41 -- -- 47 -- 50 64 TBILI -- -- 1.5* -- -- 0.4 -- 0.7 0.7 LACT 1.4 2.8* -- 2.3* 3.1* -- < > -- 8.4* < > = values in this interval not displayed. Coags Recent Labs 04/16/18 0031 04/15/18 0500 04/15/18 0345 04/14/18 2120 APTT 31.6 -- Unable to assay. Specimen improperly collected/handled. -- INR 1.4* 1.3 Unable to assay. Specimen improperly collected/handled. 1.3 Active Hospital Problems Diagnosis Date Noted - Esophageal perforation 04/14/2018 Ted Proctor MD April 16, 2018 7:34 AM [id number] [facility] STAFF PHYSICIAN NOTE OF PERSONAL INVOLVEMENT IN CARE I have reviewed the progress note obtained and documented by the resident and I personally participated in the jang components. I have discussed the case and management of the patient's care. The following comments revise or confirm relevant jang components of the note. Patient transferred to [facility] on 04/14/18 for variceal bleeding and esophageal perforation most likely from [place]-Tony tube. CT shows perforation apparently walled off. Currently still on pressors. Had 2 units PCs and 1 unit platelets yesterday. WBC now 10.2, HGB 8.4, platelets 59K Known cirrhosis due to ETOH and not abstinent. Thrombocytopenic On insulin drip for DM2 with hyperglycemia Current hospital medications: albuterol 2.5 mg/0.5 mL 2.5 mg nebulizer solution (PROVENTIL) 2.5 mg INHALATION q 4 H PRN cefepime 2 g in D5W 100 mL MB+ (MAXIPIME) 2 g INTRAVENOUS q 12 H Chlorhexidine Gluconate 0.12 % 15 mL (PERIDEX) 15 mL ORAL QID dextrose 50 % 12.5-25 g injection 25-50 mL INTRAVENOUS PRN fentaNYL 50 mcg/mL 25-50 mcg injection (SUBLIMAZE) 25-50 mcg INTRAVENOUS q 1 H PRN fluconazole 200 mg in NaCl (iso-osmotic) 100 mL (DIFLUCAN) 200 mg INTRAVENOUS DAILY insulin regular 250 units in NaCl 0.9% 250 mL iv infusion - ICU NOMOGRAM 0.5-30 Units/hr INTRAVENOUS CONTINUOUS insulin regular human iv bolus 2-10 Units 2-10 Units INTRAVENOUS PRN ipratropium-albuterol 3 mL nebulizer solution (DUONEB) 3 mL INHALATION q 4 H PRN lactated ringers infusion 5-30 mL/hr INTRAVENOUS CONTINUOUS magnesium sulfate in water 2 g in sterile water 50 ml 2 g INTRAVENOUS PRN metroNIDAZOLE 500 mg PREMIX piggyback (FLAGYL) 500 mg INTRAVENOUS q 8 H mupirocin 2% 0.5 g nasal ointment (BACTROBAN) 0.5 g NASAL BID NaCl 0.9% 3-5 mL 3-5 mL INTRAVENOUS q 12 H NORepinephrine 16 mg in D5W 250 mL (LEVOPHED) 0.6-50 mcg/min INTRAVENOUS CONTINUOUS octreotide 500 mcg in D5W 100 mL (SandoSTATIN) 50 mcg/hr INTRAVENOUS CONTINUOUS pantoprazole 40 mg injection (PROTONIX) 40 mg INTRAVENOUS BID AC (0600/1600) potassium chloride 20-80 mEq CUP 20-80 mEq ORAL/FEEDING TUBE PRN potassium chloride iv piggyback 20 mEq/100 mL 20 mEq INTRAVENOUS PRN propofol infusion (DIPRIVAN) 5-60 mcg/kg/min INTRAVENOUS CONTINUOUS sodium glycerophosphate 15 mmol in D5W 250 mL (GLYCOPHOS) 15 mmol INTRAVENOUS PRN sodium glycerophosphate 30 mmol in D5W 250 mL (GLYCOPHOS) 30 mmol INTRAVENOUS PRN sodium glycerophosphate 45 mmol in D5W 250 mL (GLYCOPHOS) 45 mmol INTRAVENOUS PRN thiamine 200 mg in NaCl 0.9% 50 mL 200 mg INTRAVENOUS q 8 H BP 120/73 Pulse 78 Temp 36.9 ?C (98.4 ?F) (Oral) Resp 28 Wt 106.1 kg (233 lb 14.5 oz) SpO2 91% BMI 33.56 kg/m? On Vent, CMV, PEEP 8. FiO2 60% arterial blood gases Ph7.36, [id number], PO2 88, HCO3 33, lactate 2. Component Latest Ref Rng AND Units 04/16/2018 Protein, Total 6.3 - 8.0 g/dL 5.2 (L) Albumin 3.9 - 4.9 g/dL 2.7 (L) Calcium 8.5 - 10.2 mg/dL 7.2 (L) Bilirubin, Total 0.2 - 1.3 mg/dL 1.5 (H) Alkaline Phosphatase 38 - 113 U/L 41 AST 14 - 40 U/L 39 Glucose 74 - 99 mg/dL 238 (H) BUN 9 - 24 mg/dL 67 (H) Creatinine 0.73 - 1.22 mg/dL 1.97 (H) Sodium 136 - 144 mmol/L 139 Potassium 3.7 - 5.1 mmol/L 4.0 Chloride 97 - 105 mmol/L 103 CO2 22 - 30 mmol/L 23 Anion Gap 9 - 18 mmol/L 13 ALT 10 - 54 U/L 22 exam as above IMPRESSION: Cirrhosis of liver, MELD 21 yesterday with estimated 19.6% risk of mortality in next 3 months. Child's class C Bleeding varices and esophageal perforation - seems to be improving PLAN: continue non-operative treatment, sandostatin, antibiotics, transfuse as needed. Tammy Rocha MD April 16, 2018 Tammy Rocha MD 10:49 AM Beeper Previous Version Riana Stein RN, RN 04/16/2018 10:29 AM Signed Nursing Progress: Topic: RESTRAINT NON-VIOLENT PATIENT NAME: Lazaro Villafana PATIENT LOCATION: [place] [address] The patient demonstrates Attempting to Remove Medical Devices Vital to Medical Stability, Confusion, Lack of Understanding/Ability to Comply with Safety Directions as evidenced by the following behaviors reaching for ETT, lines and drains; unable to follow safety directions which pose an imminent danger to self or others. The following interventions were attempted but were not effective in protecting the patient's safety: Alarms, Medications Reviewed, Modify Environment, Modify Equipment Next, a comprehensive assessment was performed and warranted placing the patient in Soft Bilateral Wrists, the least restrictive restraint needed to protect the patient's safety. Ongoing safety assessments and evaluation for earliest removal of restraints will be performed. DATE: April 16, 2018 TIME: 10:29 AM BLAYNE Laws MD 04/17/2018 8:14 AM Addendum SURGICAL INTENSIVE CARE UNIT PROGRESS NOTE SERVICE DATE: April 16, 2018 SERVICE TIME: 9:04 AM Subjective PROCEDURE: 04/14 Hematemesis s/p EGD at OSH c/b esophageal laceration vs perforation vs esophageal variceal bleeding admitted from OSH for surgical evaluation and hemodynamic monitoring. MAJOR ISSUES: Esophageal perforation Mediastinitis Septic shock Leukocytosis Tachycardia Hypotension LIANE Hypoalbuminemia Acute blood loss anemia GI Bleeding Thrombocytopenia Objective VITAL SIGNS Temp: 36.9 ?C (98.4 ?F) Pulse: 78 Arterial BP 1: 124/66 MAP Invasive (Mean Arterial Pressure) 1: 83 Resp: 28 SpO2: 91 % Not applicable Current Facility-Administered Medications: albuterol 2.5 mg/0.5 mL 2.5 mg nebulizer solution (PROVENTIL) 2.5 mg INHALATION q 4 H PRN cefepime 2 g in D5W 100 mL MB+ (MAXIPIME) 2 g INTRAVENOUS q 12 H Chlorhexidine Gluconate 0.12 % 15 mL (PERIDEX) 15 mL ORAL QID dextrose 50 % 12.5-25 g injection 25-50 mL INTRAVENOUS PRN fentaNYL 50 mcg/mL 25-50 mcg injection (SUBLIMAZE) 25-50 mcg INTRAVENOUS q 1 H PRN fluconazole 200 mg in NaCl (iso-osmotic) 100 mL (DIFLUCAN) 200 mg INTRAVENOUS DAILY insulin regular 250 units in NaCl 0.9% 250 mL iv infusion - ICU NOMOGRAM 0.5-30 Units/hr INTRAVENOUS CONTINUOUS insulin regular human iv bolus 2-10 Units 2-10 Units INTRAVENOUS PRN ipratropium-albuterol 3 mL nebulizer solution (DUONEB) 3 mL INHALATION q 4 H PRN lactated ringers infusion 5-30 mL/hr INTRAVENOUS CONTINUOUS magnesium sulfate in water 2 g in sterile water 50 ml 2 g INTRAVENOUS PRN metroNIDAZOLE 500 mg PREMIX piggyback (FLAGYL) 500 mg INTRAVENOUS q 8 H mupirocin 2% 0.5 g nasal ointment (BACTROBAN) 0.5 g NASAL BID NaCl 0.9% 3-5 mL 3-5 mL INTRAVENOUS q 12 H NORepinephrine 16 mg in D5W 250 mL (LEVOPHED) 0.6-50 mcg/min INTRAVENOUS CONTINUOUS octreotide 500 mcg in D5W 100 mL (SandoSTATIN) 50 mcg/hr INTRAVENOUS CONTINUOUS pantoprazole 40 mg injection (PROTONIX) 40 mg INTRAVENOUS BID AC (0600/1600) potassium chloride iv piggyback 20 mEq/100 mL 20 mEq INTRAVENOUS PRN Or potassium chloride 20-80 mEq CUP 20-80 mEq ORAL/FEEDING TUBE PRN propofol infusion (DIPRIVAN) 5-60 mcg/kg/min INTRAVENOUS CONTINUOUS sodium glycerophosphate 15 mmol in D5W 250 mL (GLYCOPHOS) 15 mmol INTRAVENOUS PRN Or sodium glycerophosphate 30 mmol in D5W 250 mL (GLYCOPHOS) 30 mmol INTRAVENOUS PRN Or sodium glycerophosphate 45 mmol in D5W 250 mL (GLYCOPHOS) 45 mmol INTRAVENOUS PRN thiamine 200 mg in NaCl 0.9% 50 mL 200 mg INTRAVENOUS q 8 H Intake/Output Summary (Last 24 hours) at 04/16/18 1115 Last data filed at 04/16/18 0600 Gross per 24 hour Intake 4972.3 ml Output 1605 ml Net 3367.3 ml PHYSICAL EXAM Neuro: Sedated Cardiovascular: Regular rhythm Respiratory Clear to auscultation. Breath Sounds Equal: Yes Mechanical Ventilation: Vent Mode: PC CMV Freq (bpm): 12 PS (cmH20): 10 PEEP / CPAP (cmH20): 8 FIO2 (%): 60 Recent Labs 04/16/18 0914 04/16/18 0613 PH 7.36 7.42 PO2 88 135* PCO2 41 37 BE NEG 2 NEG 1 HCO3 22 23 LACT 2.0 1.4 Abdomen: Soft and Distended Extremities: mild edema Skin:intact INFUSION(S): Norepinephrine, Propofol and Ocreotide Diagnostic tests reviewed for today's visit: Most recent labs and imaging results. Assessment/Plan Mr.?Howard Villafana is a 52-year-old male with PMHx type II DM, poorly controlled HTN, CKD, COPD, tobacco smoker 2-3 PPD, alcohol use disorder with recent diagnosis of cirrhosis was transferred from OSH with an esophageal perforation seen on EGD. Patient initially presented with hematemesis and melena with accompanying dizziness and shortness of breath. Now being admitted to the SICU for surgical evaluation and hemodynamic monitoring. ? Neuro:?hx of heavy EtOH use, last drink on 04/13 -- tachypnea requiring intubation at OSH --Sedation with dexmedetomidine for history of heavy EtOH use. Switched to propofol this AM for improved management of agitation -- per , he previously drank 3 cider ales daily up until 1 month ago, around when he learned about his cirrhosis diagnosis. She notes that he had 2 drinks on 04/13. --thiamine and folic acid -- PRN fentanyl ? CV:? -- levophed and vasopressin weaned overnight. Levophed restarted this AM -- Goal MAP >65 - AM CXR - worsening bilateral atelectasis, R pleural effusion ? Pulm:? Hx of COPD. Intubated. Vent Mode: PC CMV Freq (bpm): 12 PS (cmH20): 10 PEEP / CPAP (cmH20): 8 FIO2 (%): 60 --Continue home bronchodilators --BPH, duonebs prn ? Renal:??LIANE with improving Cr 1.97 (baseline ~1.2 from 02/2018) -- UOP 1970 --Monitor Cr and I/Os --Mcclain ? GI:?Likely partial thickness esophageal perforation. Presented from OSH on 04/14 with hematemesis, melena dizziness and SOB. EtOH cirrhosis with portal HTN, grade 2 esophageal varices -- EGD at OSH showed no mediastinal air -- 04/15 CT chest/abd/pel - mid distal esophageal tear 5.4cm from T6-T8. Small amount of enteric contrast extravasation and pneumomediastinum. - 04/15 EGD by GI - deep esophageal tear, not amenable to esophageal stenting --Pantoprazole for GI ppx and ocreotide gtt for at least 7 days (started 04/14) per GI --NPO, start TPN --NGT repositioned by GI - DO NOT MANIPULATE BLINDLY -- thoracic does not recommend open surgical intervention. Perforation appears to be contained. Likely iatrogenic tear from prior tube placement. -- may develop mediastinal abscess within the next few days, possible repeat imaging to rule outper gen surg ? Heme:?Transfused 2u pRBC and 1u platelets yesterday evening -- Hgb 7.8 -- platelets 59. Will watch for signs of bleeding for further transfusion --Transfuse to keep Hgb >7 ? Fluid/Electrolyte/Nutrition: --NPO --Replete lytes per SICU protocol ? Endo:?Hx of IDDM, HgbA1c 8.2. - glucose 611 at OSH, 445 on admission --Continue insulin gtt ? ID:?Esohageal tear and perforation. WBC 4.84, lactate 8.4 on admission, now 1.4. Afebrile ? Cultures/labs: - 04/14 blood culture - NGTD - 04/14 TB blood screen - in process - 04/14 procalcitonin 2.67 ? - aztreonam and flagyl at OSH - empiric coverage with cefepime, fluconazole, flagyl - end date in 1 month - ID following, appreciate recs Lines, Drains, and Airways Line Arterial Line 04/14/18 2320 Arterial Line Left Radial 1 day Central Line Triple Lumen 04/14/18 2319 Non-tunneled Right Neck 1 day Peripheral 04/14/18 2344 Left Antecubital 18 Gauge 1 day Drain GI Feed/Drain 04/14/182318 Nasogastric Left Naris 16 Fr 1 day Indwelling Urinary Catheter 04/14/182113 Admission to Hospital [place] 1 day Airway Airway Endotracheal Tube 04/14/182114 1 day Medication and Non-Pharmacologic VTE Prophylaxis/Anticoagulants 04/14/182099 pneumatic compression stockings (nc,ut) 04/14/182099 activity - mobilize patient ([place]) VTE Prophylaxis: Contraindicated acute bleed SIGNATURE: Jen Gorman MD, PGY-3 resident PATIENT NAME: Lazaro Villafana DATE: April 16, 2018 TIME: 8:36 AM PAGER/CONTACT #: [phone] SICU STAFF PHYSICIAN NOTE OF PERSONAL INVOLVEMENT IN CARE I have reviewed the progress note obtained and documented by the resident and I personally participated in the jang components as documented above regarding the following problems or issues and made appropriate changes below. Upon my evaluation, this patient had a high probability of imminent or life-threatening deterioration, which required my direct attention, intervention, personal management and decision making. These issues or problems included: Close monitoring of the following has been required: respiratory status and infection ASSESSMENTANDPLAN: Esophageal perforation Mediastinitis Septic shock Leukocytosis Tachycardia Hypotension LIANE Hypoalbuminemia Acute blood loss anemia GI Bleeding Thrombocytopenia Pt is doing slightly better. Gi was unable to stent acrossed the lesion. We will need good surviellence for worsening mediastinitisis. If he suddenly decompendates or is not progressing than would recommend repeatng CT chest. Continue broad spectrum abx and anti-fungal DISPOSITION: SICU I devoted my full attention to the direct care of this patient for the amount of time indicated below, time includes review of laboratory data, radiology results, discussion with consultants, and monitoring for potential decompensation. Time I spent with family or surrogate(s) is included only if the patient was incapable of providing the necessary information or participating in medical decision making. Time devoted to teaching and to any procedures I billed separately is not included. Time spent providing critical care services: 33 minutes. SIGNATURE: Hilda Cooley M.D. DATE: April 16, 2018 5:16 PM Previous Version Leena Li MD 04/16/2018 10:23 AM Signed PROGRESS NOTE INFECTIOUS DISEASE SERVICE DATE: 04/16/2018 SERVICE TIME: 8:03 AM Subjective Interval Events: Febrile yesterday evening to 38.8 C Received 2 Units PRBCs and 1 Unit FFP yesterday with improvement in lactate to 1.3 and decreasing pressor requirements (3mcg of norepi this am compared to 30 on transfer) No leukocytosis Cultures with no growth to date. Medications: Current hospital medications: albuterol 2.5 mg/0.5 mL 2.5 mg nebulizer solution (PROVENTIL) 2.5 mg INHALATION q 4 H PRN cefepime 2 g in D5W 100 mL MB+ (MAXIPIME) 2 g INTRAVENOUS q 12 H Chlorhexidine Gluconate 0.12 % 15 mL (PERIDEX) 15 mL ORAL QID dexmedetomidine 400 mcg in NaCl 0.9% 100 mL (PRECEDEX) 0.2- 0.7 mcg/kg/hr INTRAVENOUS CONTINUOUS dextrose 50 % 12.5-25 g injection 25-50 mL INTRAVENOUS PRN fentaNYL 50 mcg/mL 25-50 mcg injection (SUBLIMAZE) 25-50 mcg INTRAVENOUS q 1 H PRN fluconazole 200 mg in NaCl (iso-osmotic) 100 mL (DIFLUCAN) 200 mg INTRAVENOUS DAILY insulin regular 250 units in NaCl 0.9% 250 mL iv infusion - ICU NOMOGRAM 0.5-30 Units/hr INTRAVENOUS CONTINUOUS insulin regular human iv bolus 2-10 Units 2-10 Units INTRAVENOUS PRN ipratropium-albuterol 3 mL nebulizer solution (DUONEB) 3 mL INHALATION q 4 H PRN magnesium sulfate in water 2 g in sterile water 50 ml 2 g INTRAVENOUS PRN metroNIDAZOLE 500 mg PREMIX piggyback (FLAGYL) 500 mg INTRAVENOUS q 8 H mupirocin 2% 0.5 g nasal ointment (BACTROBAN) 0.5 g NASAL BID NaCl 0.9% 3-5 mL 3-5 mL INTRAVENOUS q 12 H NaCl 0.9% iv infusion 100 mL/hr INTRAVENOUS CONTINUOUS NORepinephrine 16 mg in D5W 250 mL (LEVOPHED) 0.6-50 mcg/min INTRAVENOUS CONTINUOUS octreotide 500 mcg in D5W 100 mL (SandoSTATIN) 50 mcg/hr INTRAVENOUS CONTINUOUS pantoprazole 40 mg injection (PROTONIX) 40 mg INTRAVENOUS BID AC (0600/1600) potassium chloride 20-80 mEq CUP 20-80 mEq ORAL/FEEDING TUBE PRN potassium chloride iv piggyback 20 mEq/100 mL 20 mEq INTRAVENOUS PRN sodium glycerophosphate 15 mmol in D5W 250 mL (GLYCOPHOS) 15 mmol INTRAVENOUS PRN sodium glycerophosphate 30 mmol in D5W 250 mL (GLYCOPHOS) 30 mmol INTRAVENOUS PRN sodium glycerophosphate 45 mmol in D5W 250 mL (GLYCOPHOS) 45 mmol INTRAVENOUS PRN thiamine 200 mg in NaCl 0.9% 50 mL 200 mg INTRAVENOUS q 8 H Current Antibiotics: 04/14 Aztreonam x 1 Metronidazole (04/14 - ) Fluconazole 500 (04/15 - ) Cefepime (04/15 - ) Vancomycin x 1 (04/15) Current immunosuppressive medications: None Objective Physical Exam: Temp (24hrs), Av.6 ?C (99.7 ?F), Min:36.9 ?C (98.4 ?F), Max:38.5 ?C (101.3 ?F) Temp (120hrs), Av.6 ?C (99.7 ?F), Min:36.9 ?C (98.4 ?F), Max:38.5 ?C (101.3 ?F) Lines: [place] 04/14, Nontunnelled triple lumen 04/14 in R neck, ET tube 04/14, NG in L nare 04/14, L radial A-line 04/14 GENERAL APPEARANCE: Patient is critically ill appearing. Sedated. SKIN: No lesions noted. EYES: PERRLA NOSE: Left Nare Ng tube in place. NECK: R nontunnelled triple lumen catheter with no overlying erythema, swelling or warmth. LUNGS: clear to auscultation, no wheezes, or crackles. HEART: Regular rate/rhythm, normal heart sounds, and no murmurs. ABDOMEN: Soft, epigastric tenderness, BS present. EXTREMITIES: Edema of hands b/l, no LE edema. NEURO: Sedated, not following commands. Lab data: WBC Date Value 04/16/2018 4.84 k/uL 04/15/2018 9.57 k/uL 04/15/2018 15.85 k/uL 04/14/2018 22.38 k/uL 04/14/2018 20.86 thou/cmm Platelet Count Date Value 04/16/2018 35 k/uL 04/15/2018 48 k/uL 04/15/2018 90 k/uL 04/14/2018 117 k/uL 04/14/2018 102 thou/cmm Creatinine (mg/dL) Date Value 04/16/2018 1.97 04/15/2018 2.47 04/14/2018 2.71 04/14/2018 2.66 04/14/2018 2.21 AST (U/L) Date Value 04/16/2018 39 ALT (U/L) Date Value 04/16/2018 22 Microbiology data: 04/14 Nasal MRSA negative, positive for staphylococcus aureus 04/14 Blood culture x 1 negative to date 04/14 Blood TB screen in process DATA: Diagnostic Tests Reviewed for Today's Visit: Most recent labs and imaging results. Impression/Recommendations 52 yo M with a h/o cirrhosis, EtoH related, CKD, COPD and reported + PPD in the past. Currently no clinical or imaging evidence of active pulmonary TB; more consistent with latent TB. Presenting with hemorrhagic shock secondary to hematemesis/esophageal tear c/b pneumomediastinum. EGD 04/15 with inability to stent lesion. Plan: - No evidence of active TB, no need for respiratory isolation - Currently critically ill and latent TB status can be addressed in the outpatient setting vs if transplantation planned. - Continue broad spectrums per primary team: fluconazole, metronidazole and cefepime. Medication and Non-Pharmacologic VTE Prophylaxis/Anticoagulants SIGNATURE: Jeniffer Gil MD PATIENT NAME: Lazaro Villafana DATE: April 16, 2018 TIME: 8:02 AM PAGER/CONTACT #: [phone] [facility] STAFF PHYSICIAN NOTE OF PERSONAL INVOLVEMENT IN CARE Events reviewed. Patient examined. Findings as outlined in the resident's note above. Jang elements verified. ? Relevant lab data, microbiology and imaging data reviewed. Relevant images personally reviewed. ? Agree with assessment and plan as outlined in the resident's note above. I was physically present for the critical portions of the service provided by the ID team. The management plan reflects my input. ? Marguerite Li MD Staff, Department of Infectious Disease Pager: [phone] Marguerite Li [phone] Previous Version Cheryl Ramos, PT 04/16/2018 3:45 PM Signed PHYSICAL THERAPY MISSED VISIT SERVICE DATE: 04/16/2018 SERVICE TIME: 1545 to 1545 ROOM: [place] [address] Attempted Evaluation. Patient not seen due to Illness (intubated and sedated). Will hold physical therapy until pt appropriate for skilled interventions. SIGNATURE: Cheryl Ramos, PT PATIENT NAME: Lazaro Villafana DATE: April 16, 2018 TIME: 3:45 PM German Cavazos RN, RN 04/16/2018 7:57 PM Signed Nursing Progress: Topic: RESTRAINT NON-VIOLENT PATIENT NAME: Lazaro Villafana PATIENT LOCATION: [place] [address]/[place] [address] The patient demonstrates Attempting to Remove Medical Devices Vital to Medical Stability, Lack of Understanding/Ability to Comply with Safety Directions as evidenced by the following behaviors attempting to pull at lines and tubes which pose an imminent danger to self or others. The following interventions were attempted but were not effective in protecting the patient's safety: Alarms, Bed in Low/Locked Position, Call Light Within Reach, Diversion Activities, Gauze Wrap/Sleeve IV Site, IV/Feeding Bag/Pump Out of Vision, Medications Reviewed, Modify Environment, Modify Equipment, Frequent Observation, Pad Tubes/Drains, Pain/Discomfort Relief, Re- Orientation Methods Next, a comprehensive assessment was performed and warranted placing the patient in Soft Bilateral Wrists, the least restrictive restraint needed to protect the patient's safety. Ongoing safety assessments and evaluation for earliest removal of restraints will be performed. DATE: April 16, 2018 TIME: 7:56 PM BLAYNE Parks MD, MD 04/17/2018 9:50 AM Signed Patient is known to the thoracic service. I was called by the SICU team to assess rising vent requirement, fever and new right sided opacity on CXR. His pressor requirement had been off transiently but had to be restarted at a lower dose, he had a temp of 38.6, and he required 100% FiO2. His WBC was normal and he had a normal base deficit on his ABG. After discussion with the SICU team and Dr. Soto, it was felt that placing a right chest tube would be the best next step. A right sided 28Fr chest tube was placed by id with no difficulty and 400 cc of serosanguinous fluid was immediately drained. No evidence of GI contents in the right chest. Follow up X-ray did not show a complete resolution of the right sided opacity. A repeat CT scan of his chest was deemed to be neccessary at that point to determine the nature of the right sided opacity and re-evaluate the esophagus. Chest CT scan showed a complete collapse of the right lower lobe, patchy consolidation in the left lung and no major change around the esophagus. Chest tube lies next to the esophagus. Based on the information gathered at that point it was deemed that this was likely an ARDS picture and a surgical intervention would not necessarily lead to a clinical improvement. He continued to improve throughout the night, FiO2 had significantly decreased to 40% and currently off pressors. Anamika Newell MD Thoracic surgery fellow Donna Crisostomo 04/16/2018 11:19 PM Signed Radiology Service Progress Note PATIENT NAME: Lazaro Villafana DATE OF SERVICE: April 16, 2018 TIME: 11:18 PM PATIENT IDENTITY VERIFICATION COMPLETED USING TWO (2) METHODS: ID Band . PATIENT GENDER DATA: Male PATIENT RELEVANT IMPLANT DATA REVIEWED: Yes RADIOLOGY DEPARTMENT: CT; Exam(s) Completed: Chest PERIPHERAL IV DATA: Not applicable SIGNED BY: Donna Crisostomo April 16, 2018 11:18 PM Francois Gann MD,PhD 04/17/2018 6:57 AM [facility] THORACIC SURGERY CONSULT PROGRESS NOTE Lazaro Villafana [id number] PRIMARY SERVICE: HOSPITAL DAY: # 3 INTERVAL HISTORY Right sided chest tube placed during the night. ~800-1000cc of drainage. CXR this morning looks significantly improved. Norepi 7.5 for pressure support. PHYSICAL EXAM BP 122/64 Pulse 86 Temp 37.4 ?C (99.3 ?F) (Oral) Resp 25 Wt 107.2 kg (236 lb 5.3 oz) SpO2 96% BMI 33.91 kg/m? Intake/Output Summary (Last 24 hours) at 04/17/18 0653 Last data filed at 04/17/18 0600 Gross per 24 hour Intake 2540.1 ml Output 2325 ml Net 215.1 ml Constitutional: intubated, sedated HEENT: intubated Resp: VENT FiO2 70, PEEP 10; R chest tube in place and on suction, no air leak, sanguineous output Cardiovascular: Cardiac: Norepi 7.5 Integumentary: Warm Musculoskeletal: No deformities Neurological/Psychiatric: intubated Additional systems reviewed: No additional systems reviewed DATA Recent Labs 04/17/18 0019 04/16/18 1653 04/16/18 0841 WBC 13.12* 10.22 10.27 HB 8.4* 8.2* 8.4* HCT 25.2* 24.2* 24.6* PLT 61* 50* 59* Recent Labs 04/17/18 0019 04/16/18 0031 04/15/18 0345 NA 137 139 136 K 4.1 4.0 4.8 CO2 21* 23 23 BUN 69* 67* 74* CREAT 2.34* 1.97* 2.47* GLUC 229* 238* 359* MG 2.2 1.3* 1.7 IMAGING I personally reviewed: CXR ASSESSMENT AND PLAN 52 year old male with multiple medical comorbidities now with likely partial thickness esophageal perforation, putatively from S-B tube placement at OSH. It is unlikely that this is the etiology of his massive hemoptysis, reportedly there were multiple varices that, in the background of cirrhosis is the likely etiology of his bleed. While he is requiring high doses of vasopressors, it is unlikely that the source of his shock is purely from his esophageal perforation given his lack of pleural effusion or free flowing contrast. 04/15 EGD showed 5cm esophageal laceration without active bleeding. 04/16 Right chest tube placed for effusion. ? Plan: - STRICT NPO for at least 2 weeks - Do NOT manipulate NGT blindly - no acute surgical intervention indicated at this point - monitor chest tube output - chest tube to suction - will follow Francois Gann MD,PhD Pager [phone] 04/17/2018 6:53 AM Tammy Rocha MD 04/17/2018 10:01 PM Addendum GENERAL SURGERY PROGRESS NOTE ASSESSMENT AND PLAN 52 year old male with PMHx type II DM, poorly controlled HTN, CKD, COPD, tobacco smoker 2-3 PPD, alcohol use disorder with recent diagnosis of cirrhosis who presents on transfer from OSH with hematemesis s/p EGD at OSH c/b esophageal laceration vs Boerhaave's vs injury related to [place] tube on pressors intubated/sedated; MELD > 20 - will discuss transfer of care with thoracic surgery -supportive care - trend labs - may need repeat imaging to r/o mediastinal abscess - SICU *After 6pm and on weekends please page general surgery director of early childhood education [phone]* SUBJECTIVE/INTERVAL EVENTS chest tube placed yesterday w/ 800cc output, CXR improved, still on pressors OBJECTIVE BP 122/64 Pulse 84 Temp 37.4 ?C (99.3 ?F) (Oral) Resp 24 Wt 107.2 kg (236 lb 5.3 oz) SpO2 97% BMI 33.91 kg/m? Intake/Output Summary (Last 24 hours) at 04/17/18 0659 Last data filed at 04/17/18 0600 Gross per 24 hour Intake 2540.1 ml Output 2325 ml Net 215.1 ml General: sedated, ill appearing CV: on pressors Pulm: vent Neck: no subQ crepitus appreciated Abdomen: soft Neuro: limited exam 05/21 sedation Labs/Imaging: CBC, BMP, MG, PHOS Recent Labs 04/17/18 0019 04/16/18 1653 04/16/18 0841 04/16/18 0031 04/15/18 0345 04/14/18 2120 WBC 13.12* 10.22 10.27 4.84 < > 15.85* 22.38* HB 8.4* 8.2* 8.4* 7.8* < > 8.1* 8.9* HCT 25.2* 24.2* 24.6* 22.6* < > 23.4* 26.0* PLT 61* 50* 59* 35* < > 90* 117* NA 137 -- -- 139 -- 136 140 K 4.1 -- -- 4.0 -- 4.8 5.0 CHLOR 106* -- -- 103 -- 98 100 CO2 21* -- -- 23 -- 23 24 BUN 69* -- -- 67* -- 74* 76* CREAT 2.34* -- -- 1.97* -- 2.47* 2.71* GLUC 229* -- -- 238* -- 359* 445* CA 7.2* -- -- 7.2* -- 7.9* 7.1* MG 2.2 -- -- 1.3* -- 1.7 1.3* P 4.3 -- -- 2.6* -- 2.9 4.7 < > = values in this interval not displayed. Liver Function, Amylase, AND Lipase Recent Labs 04/17/18 0440 04/17/18 0033 04/17/18 0019 04/16/18 1917 04/16/18 0914 04/16/18 0031 04/15/18 0345 04/14/18 2120 TPROT -- -- 5.6* -- -- -- 5.2* -- 5.2* -- 4.9* ALB -- -- 2.5* -- -- -- 2.7* -- 2.6* -- 2.4* ALT -- -- 19 -- -- -- 22 -- 23 -- 23 AST -- -- 30 -- -- -- 39 -- 44* -- 36 ALKPHOS -- -- 48 -- -- -- 41 -- 47 -- 50 TBILI -- -- 1.0 -- -- -- 1.5* -- 0.4 -- 0.7 LACT 1.4 1.8 -- 1.5 2.0 < > -- < > -- < > -- < > = values in this interval not displayed. Coags Recent Labs 04/17/18 0019 04/16/18 0031 04/15/18 0500 04/15/18 0345 APTT 32.1 31.6 -- Unable to assay. Specimen improperly collected/handled. INR 1.3 1.4* 1.3 Unable to assay. Specimen improperly collected/handled. Active Hospital Problems Diagnosis Date Noted - Esophageal perforation 04/14/2018 Ted Proctor MD [id number] [facility] STAFF PHYSICIAN NOTE OF PERSONAL INVOLVEMENT IN CARE I have reviewed the progress note obtained and documented by the resident and I personally participated in the jang components. I have discussed the case and management of the patient's care. The following comments revise or confirm relevant jang components of the note. Patient has no acute abdominal issues. The esophageal tear appears to be contained, although patient remains at risk for mediastinitis and empyema.. I spoke with the Thoracic surgery staff, Dr. Taveras this morning. He has no plans to take the patient on his service because he thinks the patient would be too high a risk for surgery and in any case, the patient is improving with conservative therapy. Fortunately, the variceal bleeding appears to have stabilized. IMPRESSION: Liver cirrhosis, esophageal varices s/p EGD and attempted banding. Now with esophageal tear that appears to be contained. Chest tube inserted by thoracic surgery yesterday is in good position. Renal dysfunction appears to be improving. PLAN: We have no general surgical issues at present. Perhaps patient could be transferred to the MICU? Thoracic surgery will follow. Tammy Rocha MD April 17, 2018 9:53 PM Beeper Previous Version Yanni Vazquez RN, RN 04/17/2018 9:09 AM Signed Nursing Progress: Topic: RESTRAINT NON-VIOLENT PATIENT NAME: Lazaro Villafana PATIENT LOCATION: [place] [address] The patient demonstrates Attempting to Remove Medical Devices Vital to Medical Stability as evidenced by the following behaviors reaching for ETT and NG which pose an imminent danger to self or others. The following interventions were attempted but were not effective in protecting the patient's safety: Alarms, Bed in Low/Locked Position, Call Light Within Reach, Diversion Activities, Gauze Wrap/Sleeve IV Site, IV/Feeding Bag/Pump Out of Vision, Medications Reviewed, Modify Environment, Modify Equipment, Frequent Observation, Pad Tubes/Drains, Pain/Discomfort Relief, Re- Orientation Methods Next, a comprehensive assessment was performed and warranted placing the patient in Soft Bilateral Wrists, the least restrictive restraint needed to protect the patient's safety. Ongoing safety assessments and evaluation for earliest removal of restraints will be performed. DATE: April 17, 2018 TIME: 9:09 AM BLAYNE Pantoja MD 04/17/2018 2:14 PM Addendum SURGICAL INTENSIVE CARE UNIT PROGRESS NOTE SERVICE DATE: April 17, 2018 SERVICE TIME: 9:45 AM Subjective PROCEDURE: 04/14 Hematemesis s/p EGD at OSH c/b esophageal laceration vs perforation vs esophageal variceal bleeding admitted from OSH for surgical evaluation and hemodynamic monitoring. MAJOR ISSUES: Esophageal perforation Mediastinitis Septic shock Leukocytosis Tachycardia Hypotension LIANE Hypoalbuminemia Acute blood loss anemia GI Bleeding Thrombocytopenia Overnight Fever 38.8 @2000 last night. WBC increasing. Objective VITAL SIGNS Temp: 37.1 ?C (98.8 ?F) Pulse: 89 Arterial BP 1: 106/59 MAP Invasive (Mean Arterial Pressure) 1: 72 Resp: 21 SpO2: 97 % Not applicable Current Facility-Administered Medications: albuterol 2.5 mg/0.5 mL 2.5 mg nebulizer solution (PROVENTIL) 2.5 mg INHALATION q 4 H PRN cefepime 2 g in D5W 100 mL MB+ (MAXIPIME) 2 g INTRAVENOUS q 12 H Chlorhexidine Gluconate 0.12 % 15 mL (PERIDEX) 15 mL ORAL QID dextrose 50 % 12.5-25 g injection 25-50 mL INTRAVENOUS PRN fentaNYL 50 mcg/mL 25-50 mcg injection (SUBLIMAZE) 25-50 mcg INTRAVENOUS q 1 H PRN fluconazole 200 mg in NaCl (iso-osmotic) 100 mL (DIFLUCAN) 200 mg INTRAVENOUS DAILY insulin regular 250 units in NaCl 0.9% 250 mL iv infusion - ICU NOMOGRAM 0.5-30 Units/hr INTRAVENOUS CONTINUOUS insulin regular human iv bolus 2-10 Units 2-10 Units INTRAVENOUS PRN ipratropium-albuterol 3 mL nebulizer solution (DUONEB) 3 mL INHALATION q 4 H PRN lactated ringers infusion 5-30 mL/hr INTRAVENOUS CONTINUOUS magnesium sulfate in water 2 g in sterile water 50 ml 2 g INTRAVENOUS PRN metroNIDAZOLE 500 mg PREMIX piggyback (FLAGYL) 500 mg INTRAVENOUS q 8 H mupirocin 2% 0.5 g nasal ointment (BACTROBAN) 0.5 g NASAL BID NaCl 0.9% 3-5 mL 3-5 mL INTRAVENOUS q 12 H NORepinephrine 16 mg in D5W 250 mL (LEVOPHED) 0.6-50 mcg/min INTRAVENOUS CONTINUOUS octreotide 500 mcg in D5W 100 mL (SandoSTATIN) 50 mcg/hr INTRAVENOUS CONTINUOUS pantoprazole 40 mg injection (PROTONIX) 40 mg INTRAVENOUS BID AC (0600/1600) potassium chloride iv piggyback 20 mEq/100 mL 20 mEq INTRAVENOUS PRN Or potassium chloride 20-80 mEq CUP 20-80 mEq ORAL/FEEDING TUBE PRN propofol infusion (DIPRIVAN) 5-60 mcg/kg/min INTRAVENOUS CONTINUOUS sodium glycerophosphate 15 mmol in D5W 250 mL (GLYCOPHOS) 15 mmol INTRAVENOUS PRN Or sodium glycerophosphate 30 mmol in D5W 250 mL (GLYCOPHOS) 30 mmol INTRAVENOUS PRN Or sodium glycerophosphate 45 mmol in D5W 250 mL (GLYCOPHOS) 45 mmol INTRAVENOUS PRN Intake/Output Summary (Last 24 hours) at 04/17/18 0945 Last data filed at 04/17/18 0800 Gross per 24 hour Intake 2550.1 ml Output 2395 ml Net 155.1 ml PHYSICAL EXAM Neuro: Sedated Cardiovascular: Regular rhythm Respiratory Coarse breath sounds bilaterally Breath Sounds Equal: Yes Mechanical Ventilation: Vent Mode: PC CMV Freq (bpm): 12 PS (cmH20): 10 PEEP / CPAP (cmH20): 8 FIO2 (%): 50 Recent Labs 04/17/18 0440 04/17/18 0033 PH 7.37 7.36 PO2 152* 172* PCO2 40 39 BE NEG 2 NEG 4 HCO3 22 21* LACT 1.4 1.8 Abdomen: Soft and Distended Extremities: mild edema Skin:intact INFUSION(S): Propofol and Ocreotide Diagnostic tests reviewed for today's visit: Most recent labs and imaging results. Assessment/Plan Mr.?Howard Villafana is a 52-year-old male with PMHx type II DM, poorly controlled HTN, CKD, COPD, tobacco smoker 2-3 PPD, alcohol use disorder with recent diagnosis of cirrhosis was transferred from OSH with an esophageal perforation seen on EGD. Patient initially presented with hematemesis and melena with accompanying dizziness and shortness of breath. Now being admitted to the SICU for surgical evaluation and hemodynamic monitoring. ? Neuro:?hx of heavy EtOH use, last drink on 04/13 -- tachypnea requiring intubation at OSH --Sedation with dexmedetomidine for history of heavy EtOH use. On propofol gtt. -- per , he previously drank 3 cider ales daily up until 1 month ago, around when he learned about his cirrhosis diagnosis. She notes that he had 2 drinks on 04/13. --thiamine and folic acid -- PRN fentanyl ? CV:? -- s/p levophed. Stopped 0750. -- Goal MAP >65 - AM CXR - improved aeration of the right lung with interval decrease in the right pleural effusion and associated atelectasis. ?Small right pleural effusion with right lower lobe atelectasis remains. ? Pulm:? Hx of COPD. Intubated. Vent Mode: PC CMV Freq (bpm): 12 PS (cmH20): 10 PEEP / CPAP (cmH20): 8 FIO2 (%): 50 --Continue home bronchodilators --BPH, duonebs prn ? Renal:? (baseline Cr ~1.2 from 02/2018) -- LIANE; most likely pre-renal. Cr 1.97 --> 2.34 -- UOP 1275 --Monitor Cr and I/Os --[place] ? GI:?Likely partial thickness esophageal perforation. Presented from OSH on 04/14 with hematemesis, melena dizziness and SOB. EtOH cirrhosis with portal HTN, grade 2 esophageal varices -- EGD at OSH showed no mediastinal air -- 04/15 CT chest/abd/pel - mid distal esophageal tear 5.4cm from T6-T8. Small amount of enteric contrast extravasation and pneumomediastinum. - 04/15 EGD by GI - deep esophageal tear, not amenable to esophageal stenting --Pantoprazole for GI ppx and ocreotide gtt for at least 7 days (started 04/14) per GI --NPO, start TPN --NGT repositioned by GI - DO NOT MANIPULATE BLINDLY -- thoracic does not recommend open surgical intervention. Perforation appears to be contained. Likely iatrogenic tear from prior tube placement. -- may develop mediastinal abscess within the next few days ? Heme:? -- Hgb 8.0 -- platelets 59 > 77. Will watch for signs of bleeding for further transfusion --Transfuse to keep Hgb >7 ? Fluid/Electrolyte/Nutrition: --NPO --Replete lytes per SICU protocol -- ordered TPN ? Endo:?Hx of IDDM, HgbA1c 8.2. - glucose 140-222; BG goal 130-180 --Continue insulin gtt ? ID:?Esohageal tear and perforation. Febrile 38.8 @ 2000 on 04/16. WBC 10 > 13 Ordered BCx, UA Concern for mediastinitisis. ? Cultures/labs: - 04/14 blood culture - NGTD - 04/14 TB blood screen - in process - 04/14 procalcitonin 2.67 ? - aztreonam and flagyl at OSH - empiric coverage with cefepime, fluconazole, flagyl - end date in 1 month - ID following, appreciate recs PLAN - ordered TPN - will monitor UOP and Hemodynamics. S/p 250 cc LR x 2 - will f/u Bcx and UA Lines, Drains, and Airways Line Arterial Line 04/14/182319 Arterial Line Left Radial 2 days Central Line Triple Lumen 04/14/182318 Non-tunneled Right Neck 2 days Peripheral 04/14/18 2344 Left Antecubital 18 Gauge 2 days Drain GI Feed/Drain 04/14/182318 Nasogastric Left Naris 16 Fr 2 days Indwelling Urinary Catheter 04/14/182113 Admission to Hospital [place] 2 days Chest Tube 04/16/182099 Right 28 Fr less than 1 day Airway Airway Endotracheal Tube 04/14/182114 2 days Medication and Non-Pharmacologic VTE Prophylaxis/Anticoagulants 04/14/182099 pneumatic compression stockings (nc,oh) 04/14/182099 activity - mobilize patient (nc,ut) VTE Prophylaxis: Contraindicated acute bleed SIGNATURE: Joanne Cabral MD, PGY-2 resident PATIENT NAME: Lazaro Villafana DATE: April 17, 2018 TIME: 9:45 AM PAGER/CONTACT #: [id number] SICU STAFF PHYSICIAN NOTE OF PERSONAL INVOLVEMENT IN CARE I have reviewed the progress note obtained and documented by the resident and I personally participated in the jang components as documented above regarding the following problems or issues and made appropriate changes below. Upon my evaluation, this patient had a high probability of imminent or life-threatening deterioration, which required my direct attention, intervention, personal management and decision making. These issues or problems included: Close monitoring of the following has been required: respiratory status, renal function and acute GI bleeding ASSESSMENTANDPLAN: Esophageal perforation Mediastinitis Septic shock Leukocytosis Tachycardia Hyperchloremia Hypotension LIANE Hypoalbuminemia Acute blood loss anemia GI Bleeding Thrombocytopenia Pt remains intubated and has slightly increased O2 requirements. CT chest and Chest tube placed last night. CT Chest shows continued perforation without significant change continued pneumomediastinum. Continue ABX and Anti-fungals. Chest tube drained right pleural effusion, most likely reactive in origin. Off Levo now since 8am. Renal function started to get better and worsened overnight, continue supportive care for ATN. DISPOSITION: SICU I devoted my full attention to the direct care of this patient for the amount of time indicated below, time includes review of laboratory data, radiology results, discussion with consultants, and monitoring for potential decompensation. Time I spent with family or surrogate(s) is included only if the patient was incapable of providing the necessary information or participating in medical decision making. Time devoted to teaching and to any procedures I billed separately is not included. Time spent providing critical care services: 45 minutes. SIGNATURE: Hilda Cooley M.D. DATE: April 17, 2018 2:07 PM Previous Version Leena Li MD 04/17/2018 10:22 AM Signed INFECTIOUS DISEASES PROGRESS NOTE Patient Name: Lazaro Villafana Account #: Data Unavailable Admission Date: 04/14/2018 Date of Evaluation: 04/17/2018 Time of Evaluation: 10:20 AM INTERVAL HPI: fever still intubated, sedated MEDICATIONS: Current hospital medications: albuterol 2.5 mg/0.5 mL 2.5 mg nebulizer solution (PROVENTIL) 2.5 mg INHALATION q 4 H PRN cefepime 2 g in D5W 100 mL MB+ (MAXIPIME) 2 g INTRAVENOUS q 12 H Chlorhexidine Gluconate 0.12 % 15 mL (PERIDEX) 15 mL ORAL QID dextrose 50 % 12.5-25 g injection 25-50 mL INTRAVENOUS PRN fentaNYL 50 mcg/mL 25-50 mcg injection (SUBLIMAZE) 25-50 mcg INTRAVENOUS q 1 H PRN fluconazole 200 mg in NaCl (iso-osmotic) 100 mL (DIFLUCAN) 200 mg INTRAVENOUS DAILY insulin regular 250 units in NaCl 0.9% 250 mL iv infusion - ICU NOMOGRAM 0.5-30 Units/hr INTRAVENOUS CONTINUOUS insulin regular human iv bolus 2-10 Units 2-10 Units INTRAVENOUS PRN ipratropium-albuterol 3 mL nebulizer solution (DUONEB) 3 mL INHALATION q 4 H PRN lactated ringers infusion 5-30 mL/hr INTRAVENOUS CONTINUOUS magnesium sulfate in water 2 g in sterile water 50 ml 2 g INTRAVENOUS PRN metroNIDAZOLE 500 mg PREMIX piggyback (FLAGYL) 500 mg INTRAVENOUS q 8 H mupirocin 2% 0.5 g nasal ointment (BACTROBAN) 0.5 g NASAL BID NaCl 0.9% 3-5 mL 3-5 mL INTRAVENOUS q 12 H NORepinephrine 16 mg in D5W 250 mL (LEVOPHED) 0.6-50 mcg/min INTRAVENOUS CONTINUOUS octreotide 500 mcg in D5W 100 mL (SandoSTATIN) 50 mcg/hr INTRAVENOUS CONTINUOUS pantoprazole 40 mg injection (PROTONIX) 40 mg INTRAVENOUS BID AC (0600/1600) potassium chloride 20-80 mEq CUP 20-80 mEq ORAL/FEEDING TUBE PRN potassium chloride iv piggyback 20 mEq/100 mL 20 mEq INTRAVENOUS PRN propofol infusion (DIPRIVAN) 5-60 mcg/kg/min INTRAVENOUS CONTINUOUS sodium glycerophosphate 15 mmol in D5W 250 mL (GLYCOPHOS) 15 mmol INTRAVENOUS PRN sodium glycerophosphate 30 mmol in D5W 250 mL (GLYCOPHOS) 30 mmol INTRAVENOUS PRN sodium glycerophosphate 45 mmol in D5W 250 mL (GLYCOPHOS) 45 mmol INTRAVENOUS PRN PHYSICAL EXAM: BP 121/63 Pulse 89 Temp 37.1 ?C (98.8 ?F) (Oral) Resp 21 Wt 107.2 kg (236 lb 5.3 oz) SpO2 97% BMI 33.91 kg/m? GEN: well appearing Skin: No rash HEENT: anicteric Lungs: Clear Cardiac: RRR: s1-s2 no mrg Abdomen: NT, ND and no masses Extremities: no edema DIAGNOSTICS REVIEWED CBC: Recent Labs 04/17/18 0617 04/17/18 0019 04/16/18 1653 04/16/18 0841 04/16/18 0031 04/15/18 1637 04/15/18 0345 04/14/18 2120 WBC 11.97* 13.12* 10.22 10.27 4.84 9.57 15.85* 22.38* HB 8.1* 8.4* 8.2* 8.4* 7.8* 6.4* 8.1* 8.9* HCT 24.8* 25.2* 24.2* 24.6* 22.6* 18.7* 23.4* 26.0* PLT 66* 61* 50* 59* 35* 48* 90* 117* MCV 89.5 90.6 88.6 86.0 86.6 84.2 85.4 85.8 RDWCV 16.2* 15.9* 15.7* 15.6* 15.2* 16.1* 15.9* 15.8* CRP: No results found for: CRP COAG: Recent Labs 04/17/18 0019 04/16/18 0031 04/15/18 0500 04/15/18 0345 04/14/18 2120 04/14/18 1700 04/14/18 1415 APTT 32.1 31.6 -- Unable to assay. Specimen improperly collected/handled. -- -- -- INR 1.3 1.4* 1.3 Unable to assay. Specimen improperly collected/handled. 1.3 1.35* 1.31* BMP: Recent Labs 04/17/18 0019 04/16/18 0031 04/15/18 0345 04/14/18211904/14/18 1700 04/14/18 1415 GLUC 229* 238* 359* 445* 545* 494* NA 137 139 136 140 136 135* K 4.1 4.0 4.8 5.0 6.6* 5.3* CHLOR 106* 103 98 100 102 102 CO2 21* 23 23 24 22 22 ANION 10 13 15 16 19* 16 BUN 69* 67* 74* 76* 73* 73* CREAT 2.34* 1.97* 2.47* 2.71* 2.66* 2.21* CHEM: Recent Labs 04/17/18 0019 04/16/18 0031 04/15/18 0345 04/14/18211904/14/18 1700 04/14/18 1415 ALB 2.5* 2.7* 2.6* 2.4* 2.2* 2.7* TPROT 5.6* 5.2* 5.2* 4.9* 5.1* 6.2* CA 7.2* 7.2* 7.9* 7.1* 7.0* 8.0* MG 2.2 1.3* 1.7 1.3* -- -- HEPATIC: Recent Labs 04/17/18 0019 04/16/18 0031 04/15/18 0345 04/14/18211904/14/18 1700 04/14/18 1415 ALKPHOS 48 41 47 50 64 76 ALT 19 22 23 23 27 29 AST 30 39 44* 36 28 29 TBILI 1.0 1.5* 0.4 0.7 0.7 0.7 URINALYSIS: Recent Labs 04/17/18 0921 04/17/18 0440 04/17/18 0033 04/16/18 1917 04/16/18 0914 04/16/18 0613 04/16/18 0106 04/15/18 1636 04/15/18 0609 04/14/18 1455 PH -- 7.37 7.36 7.36 7.36 7.42 7.38 7.44 7.39 < > -- SPGR 1.017 -- -- -- -- -- -- -- -- -- 1.021 UGLUC Negative -- -- -- -- -- -- -- -- -- >=1000* UBILI Negative -- -- -- -- -- -- -- -- -- NEGATIVE UKET Negative -- -- -- -- -- -- -- -- -- NEGATIVE UHB 2+* -- -- -- -- -- -- -- -- -- -- UPROT Negative -- -- -- -- -- -- -- -- -- NEGATIVE UROBIL -- -- -- -- -- -- -- -- -- -- 0.2 UWBC 0-5 -- -- -- -- -- -- -- -- -- 0.4 < > = values in this interval not displayed. micro and radiology personally reviewed IMPRESSION / PLAN 52 yo M with a h/o cirrhosis, EtoH related, CKD, COPD and reported + PPD in the past. Currently no clinical or imaging evidence of active pulmonary TB; more consistent with latent TB. Presenting with hemorrhagic shock secondary to hematemesis/esophageal tear c/b pneumomediastinum. ? EGD 04/15 with inability to stent lesion. ? Plan: continue current abx Marguerite Li MD Staff, Department of Infectious Disease Pager: [phone] April 17, 2018 10:22 AM Katie Calderón MD 04/18/2018 10:12 AM Addendum NUTRITION SUPPORT TEAM TOPIC: NUTRITION SUPPORT TEAM CONSULT FOR TPN PATIENT NAME: Lazaro Villafana DATE OF : 1965 DATE: 04/17/2018 [facility] STAFF PHYSICIAN NOTE OF PERSONAL INVOLVEMENT IN CARE I have reviewed the consult note obtained and documented by the Nutrition Clinician and I personally took a history, performed a physical examination, and participated in the jang components. I have discussed the case and management of the patient's care. The following comments revise or confirm relevant jang components of the note. ASSESSMENT: 1. Feeding difficulties, on TPN 2. Mild Malnutrition 3. Esophagus tear 4. Hypokalemia, hypophosphatemia 5.hyperglycemia PLAN: TPN: Approved Agree with recommendations as outline by clinician below. Labs were reviewed and TPN orders written - comment other therapy: Electrolyte adjustment and glucose treatment Our Service will follow. CC: Asked by SICU team to see this patient for possible use of Parenteral Nutrition HPI: 52 years old male PN started for esophageal tear, intubated , sedated, History was taking from chart, ROS was not done I have reviewed the PMH, Social, FH and ROS as recorded below, and I have no changes or additions. PAST MEDICAL HISTORY Diagnosis Date - Cirrhosis (HCC) - COPD (chronic obstructive pulmonary disease) (HCC) - Diabetes (HCC) - ETOH abuse - Hypertension No family history on file. PHYSICAL EXAMINATION: (Must complete 9 areas) BP 130/74 Pulse 79 Temp 37.7 ?C (99.9 ?F) (Oral) Resp 18 Wt 107.4 kg (236 lb 12.4 oz) SpO2 98% BMI 33.97 kg/m? General appearance: intubated, sedated Skin: Skin color, texture, turgor normal, no suspicious rashes or lesions Head: Normocephalic, no masses, or abnormalities Ears: External ears normal, Nose/Sinuses: Nares normal Oropharynx: Lips, mucosa are normal Abdomen: soft, not distended Extremities: No deformities, edema, skin discoloration, clubbing or cyanosis. Good capillary refill. Peripheral pulses: Normal Venous Access: Line: right, CVC, CVC Site: clean dry Katie Calderón MD Pager Number: [phone] April 18, 2018 Consult note is not complete until Authenticated by the responsible NST Staff physician. NUTRITION CLINICIAN ASSESSMENT: 1. 52 year old male with a history of type II DM, poorly controlled HTN, CKD, COPD, tobacco smoker 2-3 PPD, alcohol use disorder with recent diagnosis of cirrhosis transferred on 04/14 for management of deep esophageal tear, no amneable to stenting. 2. Nutritional status: In the context of Acute Illness or Injury based on: Insufficient Energy Intake: Less than or equal to 50% for greater than or equal to 5 days Potential micronutrient deficiency revealed in Skin - dry and flaky RECOMMEND DIAGNOSIS: MILD PROTEIN-CALORIE MALNUTRITION 3. Estimated nutrition goals: Dosing weight: 106 kg Calorie needs 7623-1123 kilocalories determined by = 15-20 kcals/kg Dosing weight Protein needs: 106-127 grams determined by 1.0-1.2 g/kg Dosing weight - due to CKD RECOMMENDATIONS: Parenteral nutrition appropriate due to: esophageal tear, plan for NPO x 2 weeks; start tonight. Above plan pending approval by staff. --- Asked by Dr. Cabral to see patient for parenteral nutrition. History of present illness: Lazaro Villafana is a 52 year old male with a history of type II DM, poorly controlled HTN, CKD, COPD, tobacco smoker 2-3 PPD, alcohol use disorder with recent diagnosis of cirrhosis was transferred from [facility] with an esophageal perforation seen on EGD. Patient initially presented with hematemesis and melena with accompanying dizziness and shortness of breath. Transferred to [facility] on 04/14 for further management. Currently intubated. S/p EGD on 04/16 which showed a deep esophageal tear. Plan for a minimum of NPO x 2 weeks. Past Medical History: PAST MEDICAL HISTORY Diagnosis Date - Cirrhosis (HCC) - COPD (chronic obstructive pulmonary disease) (HCC) - Diabetes (HCC) - ETOH abuse - Hypertension Past Surgical History: No past surgical history on file. Social History: Social History Marital status: Spouse name: Years of education: Number of children: Social History Main Topics Smoking status: Current Every Day Smoker Packs/day: 0.00 Years: 0.00 Alcohol use: Yes Drug use: Yes Family History: No family history on file. Review of Systems: Information cannot be obtained from the patient currently GI Symptoms: unable to determine at this time Pain: Is the patient having any pain that is interfering with oral/enteral intake? Unable to assess Present Diet Order: NPO Nutrition History: Intake History BI DATA ARCHITECT: Unable to determine Current intake: Average 5 day intakes meeting <50% of estimated energy need.s Allergies: ALLERGIES Allergen Reactions - Ciprofloxacin Unknown - Penicillin Unknown All pertinent medications: calcium gluconate, RHI, LR at 10 ml/hour, propofol, octreotide, Anthropometrics: Last 1 Encounter Ht Readings: Date: Ht: 04/14/2018 177.8 cm (5' 10) Current weight: Weight: 107.2 kg (236 lb 5.3 oz) Usual body weight Unable to determine [place] body weight: 75.4 kg Dosing weight: 75.4 kg Body Mass Index: Body mass index is 33.91 kg/m?. No weight history available. PHYSICAL EXAMINATION General Appearance: in no acute distress Subcutaneous Fat Loss: Orbital: No fat loss Triceps: No fat loss Mid-axillary at the iliac crest: Unable to determine at this time Muscle Loss Locations: Temporalis: No muscle loss Pectoralis: No muscle loss Deltoids: No muscle loss Interosseous: No muscle loss Latissimus dorsi, trapezius: Unable to determine at this time Quadriceps: No muscle loss Gastrocnemius: Mild Ascites: No Edema: Yes Generalized GI / Abdomen: 1. Appearance: distended 2.1. Surgical scars:deferred 2.2. Stoma(s): None 2.3. Fistulas: None 2.4. Tubes: NGT 2.5. Drains: None Functional status: Unable to determine at this time Vitals: Temperature Max in 24 hours: Temp (24hrs), Av.5 ?C (99.5 ?F), Min:36.7 ?C (98.1 ?F), Max:38.8 ?C (101.8 ?F) Current Vital Signs: BP 121/63 Pulse 89 Temp 37.1 ?C (98.8 ?F) (Oral) Resp 21 Wt 107.2 kg (236 lb 5.3 oz) SpO2 97% BMI 33.91 kg/m? Date 04/16/18 07 - 04/17/18 0659 04/17/18 0700 - 04/18/18 0659 Shift 7565-3224 4969-0520 8329-5590 24 Hour Total 6760-1701 9307-1535 4988-1875 24 Hour Total I N T A K E IV 1545.5 934.6 2480.1 LR 4510 594 8432 Regular Insulin IV 31.5 16.1 47.6 NORepinephrine Volume 43 56.5 99.5 Octreotide IV 81 108 189 Propofol IV 201 325 526 Irrigants 30 30 60 40 40 Irrigant/Flush Amount In (GI Feed/Drain 04/14/18 2319 Nasogastric Left Naris 16 Fr) 30 30 60 40 40 Shift Total 30 1575.5 934.6 2540.1 40 40 O U T P U T Urine 410 337 039 7605 480 480 Output ( Indwelling Urinary Catheter 04/14/182113 Admission to [facility]) 410 378 959 5533 480 480 Tubes 200 50 250 Output (GI Feed/Drain 04/14/18 2319 Nasogastric Left Naris 16 Fr) 200 50 250 Chest Tube 800 800 Chest Tube Output (Chest Tube 04/16/18 2100 Right 28 Fr) 800 800 Shift Total 512 281 4896 2325 480 480 Weight (kg) 106.1 106.1 107.2 107.2 107.2 107.2 107.2 107.2 IV access device: right internal jugular double lumen central venous catheter placed 04/14/18. Catheter tip lies in the mid SVC per chest x-ray dated 04/15 . Labs: Recent Labs 04/17/18 0617 WBC 11.97* HB 8.1* HCT 24.8* PLT 66* Recent Labs 04/17/18 0019 GLUC 229* BUN 69* CREAT 2.34* NA 137 K 4.1 CHLOR 106* CO2 21* TPROT 5.6* ALB 2.5* CA 7.2* ALKPHOS 48 TBILI 1.0 AST 30 ALT 19 Recent Labs 04/17/18 0019 MG 2.2 Accuchecks: Glucose, Point of Care (mg/dL) Date Value 04/17/2018 192 (A) 04/17/2018 218 (A) 04/17/2018 237 (A) 04/16/2018 222 (A) Glucose, Point of Care (mg/dL) Date Value Cultures: Blood cultures from 04/14: No growth x 3 days Test Results: Chest XR from 04/17: IMPRESSION: Lines, tubes, and devices: ?The endotracheal tube ends in the thoracic trachea. ?The nasogastric/orogastric tube can be followed as far as the stomach. ?The right internal jugular venous catheter ends in the The right thoracostomy tube is unchanged.. Lungs and pleura: ?There has been improved aeration of the right lung with interval decrease in the right pleural effusion and associated atelectasis. ?Small right pleural effusion with right lower lobe atelectasis remains. ?The left lung is free of focal consolidation. ?No large pneumothorax is seen. Cardiomediastinal silhouette: ?Stable cardiomediastinal silhouette. CT Abdomen/Pelvis from 04/15: IMPRESSION: CIRRHOTIC LIVER MORPHOLOGY WITH PORTAL HYPERTENSION. PARTIALLY IMAGED ESOPHAGEAL TEAR WITH POSSIBLE BLOOD PRODUCTS IN THE STOMACH. ?PLEASE SEE CONCURRENTLY PERFORMED CT CHEST REPORT. Potential Signs of Inflammation: leukocytosis, hyperglycemia, hypoalbuminemia, hyperthermia and critically ill Sandee Hernández, MS, RD, LD, CNSC Previous Version Ted Proctor MD, MD 04/18/2018 2:34 PM Addendum GENERAL SURGERY PROGRESS NOTE ASSESSMENT AND PLAN 52 year old male with PMHx type II DM, poorly controlled HTN, CKD, COPD, tobacco smoker 2-3 PPD, alcohol use disorder with recent diagnosis of cirrhosis w/ esophageal varices who presents on transfer from OSH with hematemesis s/p EGD at OSH c/b esophageal laceration that appears to be contained; MELD > 20 - would like to start trickle TF thru NG if ok with thoracic ADDENDUM: will hold on TF after discussing w/ thoracic - No surgical intervention planned - Thoracic surgery following -supportive care - trend labs - ICU *After 6pm and on weekends please page general surgery director of early childhood education [phone]* SUBJECTIVE/INTERVAL EVENTS Off pressors, still intubated, 640 cc from chest tube OBJECTIVE BP 106/54 Pulse 77 Temp 37.7 ?C (99.9 ?F) (Oral) Resp 17 Wt 107.4 kg (236 lb 12.4 oz) SpO2 97% BMI 33.97 kg/m? Intake/Output Summary (Last 24 hours) at 04/17/18 0659 Last data filed at 04/17/18 0600 Gross per 24 hour Intake 2540.1 ml Output 2325 ml Net 215.1 ml General: sedated, ill appearing CV: on pressors Pulm: vent Neck: no subQ crepitus appreciated Abdomen: soft Neuro: limited exam 05/21 sedation Labs/Imaging: CBC, BMP, MG, PHOS Recent Labs 04/18/18 0002 04/17/18 1744 04/17/18 0617 04/17/18 0019 04/16/18 0031 04/15/18 0345 WBC 6.79 7.91 11.97* 13.12* < > 4.84 < > 15.85* HB 8.1* 8.2* 8.1* 8.4* < > 7.8* < > 8.1* HCT 24.1* 24.5* 24.8* 25.2* < > 22.6* < > 23.4* PLT 49* 51* 66* 61* < > 35* < > 90* NA 142 -- -- 137 -- 139 -- 136 K 3.6* -- -- 4.1 -- 4.0 -- 4.8 CHLOR 109* -- -- 106* -- 103 -- 98 CO2 21* -- -- 21* -- 23 -- 23 BUN 63* -- -- 69* -- 67* -- 74* CREAT 1.80* -- -- 2.34* -- 1.97* -- 2.47* GLUC 202* -- -- 229* -- 238* -- 359* CA 7.5* -- -- 7.2* -- 7.2* -- 7.9* MG 2.2 -- -- 2.2 -- 1.3* -- 1.7 P 2.5* -- -- 4.3 -- 2.6* -- 2.9 < > = values in this interval not displayed. Liver Function, Amylase, AND Lipase Recent Labs 04/18/18 0003 04/18/18 0002 04/17/18 1226 04/17/18 0440 04/17/18 0033 04/17/18 0019 04/16/18 0031 04/15/18 0345 TPROT -- 5.5* -- -- -- 5.6* -- 5.2* -- 5.2* ALB -- 2.4* -- -- -- 2.5* -- 2.7* -- 2.6* ALT -- 16 -- -- -- 19 -- 22 -- 23 AST -- 30 -- -- -- 30 -- 39 -- 44* ALKPHOS -- 49 -- -- -- 48 -- 41 -- 47 TBILI -- 0.6 -- -- -- 1.0 -- 1.5* -- 0.4 LACT 0.8 -- 1.0 1.4 1.8 -- < > -- < > -- < > = values in this interval not displayed. Coags Recent Labs 04/18/18 0002 04/17/18 0019 04/16/18 0031 04/15/18 0500 04/15/18 0345 APTT 31.7 32.1 31.6 -- Unable to assay. Specimen improperly collected/handled. INR 1.3 1.3 1.4* 1.3 Unable to assay. Specimen improperly collected/handled. Active Hospital Problems Diagnosis Date Noted - Mild protein-calorie malnutrition (HCC) 04/17/2018 - Esophageal perforation 04/14/2018 Ted Proctor MD [id number] Previous Version Francois Gann MD,PhD 04/18/2018 7:12 AM Cosign Needed [facility] CONSULT PROGRESS NOTE Lazaro Villafana [id number] PRIMARY SERVICE: HOSPITAL DAY: # 4 INTERVAL HISTORY No acute events overnight. off pressors. Appears to be improving with conservative management. PHYSICAL EXAM BP 107/58 Pulse 77 Temp 37.7 ?C (99.9 ?F) (Oral) Resp 20 Wt 107.4 kg (236 lb 12.4 oz) SpO2 99% BMI 33.97 kg/m? Intake/Output Summary (Last 24 hours) at 04/18/18 0710 Last data filed at 04/18/18 0700 Gross per 24 hour Intake 2703.4 ml Output 3305 ml Net -601.6 ml Constitutional: intubated, sedated HEENT: intubated Resp: VENT FiO2 40, PEEP 8; R chest tube in place and on suction, no air leak, sanguineous output Cardiovascular: Cardiac: RR Integumentary: Warm Musculoskeletal: No deformities Neurological/Psychiatric: intubated Additional systems reviewed: No additional systems reviewed DATA Recent Labs 04/18/18 0002 04/17/18 1744 04/17/18 0617 WBC 6.79 7.91 11.97* HB 8.1* 8.2* 8.1* HCT 24.1* 24.5* 24.8* PLT 49* 51* 66* Recent Labs 04/18/18 0002 04/17/18 0019 04/16/18 0031 NA 142 137 139 K 3.6* 4.1 4.0 CO2 21* 21* 23 BUN 63* 69* 67* CREAT 1.80* 2.34* 1.97* GLUC 202* 229* 238* MG 2.2 2.2 1.3* IMAGING I personally reviewed: CXR ASSESSMENT AND PLAN 52 year old male with multiple medical comorbidities now with likely partial thickness esophageal perforation, putatively from S-B tube placement at OSH. It is unlikely that this is the etiology of his massive hemoptysis, reportedly there were multiple varices that, in the background of cirrhosis is the likely etiology of his bleed. While he is requiring high doses of vasopressors, it is unlikely that the source of his shock is purely from his esophageal perforation given his lack of pleural effusion or free flowing contrast. ?04/15 EGD showed 5cm esophageal laceration without active bleeding. 04/16 Right chest tube placed for effusion. ? Plan: - STRICT NPO for at least 2 weeks - Do NOT manipulate NGT blindly - no acute surgical intervention indicated at this point - monitor chest tube output - chest tube to suction - will follow ? Francois Gann MD,PhD Pager [phone] 04/18/2018 7:10 AM Brendon Meneses MS RD LD [facility] 04/18/2018 11:16 AM Signed NUTRITION SUPPORT TEAM PROGRESS NOTE SERVICE DATE: 04/18/2018 SERVICE TIME: 10:13 am RECOMMENDED DIAGNOSIS: MILD PROTEIN-CALORIE MALNUTRITION per Registered Dietitian NUTRITION CARE PLAN Intervention: 1. Continue TPN -- 110 g 15% AA, 500 kcal dextrose, 940 total kcal/day Added Kphos Increased K-acet Lowered K-acet Increased insulin to 20u 2. No lipids given propofol around 765 kcals/day Monitor and Evaluation: Goal: Meet >75% of estimated needs Discharge Nutrition Recommendations: To be determined Per HPI: 52 year old male with a history of type II DM, poorly controlled HTN, CKD, COPD, tobacco smoker 2-3 PPD, alcohol use disorder with recent diagnosis of cirrhosis was transferred from OSH with an esophageal perforation seen on EGD. Patient initially presented with hematemesis and melena with accompanying dizziness and shortness of breath. Transferred to [facility] on 04/14 for further management. Interval History: remains intubated, sedated on propofol. On octreotide, insulin gtt. TPN continues. Hx of intakes [employer]: unknown 04/17: currently <50% of needs the last 5 days, starting TPN tonight for prolonged NPO plan 04/18: currently goal kcals, PN 940 kcals, 110 g pro + propofol 765 kcals/day Dosing weight: 106 kg Calorie needs [id number] kilocalories determined by = 15-20 kcals/kg Dosing weight Protein needs: 106-127 grams determined by 1.0-1.2 g/kg Dosing weight - due to CKD Admission Weight: 106.1 kg (233 lb 14.5 oz) Current Weight: 107.4 kg (236 lb 12.4 oz) BMI 30.55 based on dry weight Weight hx: ubw unknown, limited wt hx. Last dry wt known 213#, 96.8 kg. Fluid shifts here. IBW: 75.45 kg Recent Labs 04/18/18 0002 GLUC 202* BUN 63* CREAT 1.80* NA 142 K 3.6* CHLOR 109* CO2 21* ALB 2.4* P 2.5* HB 8.1* HCT 24.1* WBC 6.79 MG 2.2 Pertinent meds: LR, flagyl, protonix, propofol, octreotide Enteral/parenteral access: NG large bore not being used for nutrition; R 3L IJ placed 04/14 tip in SVC MNT Billing Type: Re-assess/15 min 2 units SIGNATURE: Brendon Mneeses MS RD [facility] PATIENT NAME: Lazaro Villafana DATE: April 18, 2018 TIME: 7:26 AM PAGER: [phone] RIVERA BAY MD 04/18/2018 1:00 PM Addendum SURGICAL INTENSIVE CARE UNIT PROGRESS NOTE SERVICE DATE: April 18, 2018 SERVICE TIME: 8:50 AM SICU day: 4 Hospital day: 4 Subjective PROCEDURE: 04/14 Hematemesis s/p EGD at OSH c/b esophageal laceration vs perforation vs esophageal variceal bleeding admitted from OSH for surgical evaluation and hemodynamic monitoring. ? MAJOR ISSUES: Esophageal perforation Mediastinitis Septic shock Leukocytosis Tachycardia Hypotension LIANE Hypoalbuminemia Acute blood loss anemia GI Bleeding Thrombocytopenia Subjective: intubated and sedated. No acute events overnight. Objective VITAL SIGNS Temp: 37.7 ?C (99.9 ?F) Pulse: 80 BP: 130/74 MAP Non Invasive (Mean Arterial Pressure): 94 Resp: 18 SpO2: 100 % Not applicable Current Facility-Administered Medications: albuterol 2.5 mg/0.5 mL 2.5 mg nebulizer solution (PROVENTIL) 2.5 mg INHALATION q 4 H PRN cefepime 2 g in D5W 100 mL MB+ (MAXIPIME) 2 g INTRAVENOUS q 12 H Chlorhexidine Gluconate 0.12 % 15 mL (PERIDEX) 15 mL ORAL QID dextrose 50 % 12.5-25 g injection 25-50 mL INTRAVENOUS PRN fentaNYL 50 mcg/mL 25-50 mcg injection (SUBLIMAZE) 25-50 mcg INTRAVENOUS q 1 H PRN fluconazole 200 mg in NaCl (iso-osmotic) 100 mL (DIFLUCAN) 200 mg INTRAVENOUS DAILY insulin regular 250 units in NaCl 0.9% 250 mL iv infusion - ICU NOMOGRAM 0.5-30 Units/hr INTRAVENOUS CONTINUOUS insulin regular human iv bolus 2-10 Units 2-10 Units INTRAVENOUS PRN ipratropium-albuterol 3 mL nebulizer solution (DUONEB) 3 mL INHALATION q 4 H PRN lactated ringers infusion 5-30 mL/hr INTRAVENOUS CONTINUOUS metroNIDAZOLE 500 mg PREMIX piggyback (FLAGYL) 500 mg INTRAVENOUS q 8 H mupirocin 2% 0.5 g nasal ointment (BACTROBAN) 0.5 g NASAL BID NaCl 0.9% 3-5 mL 3-5 mL INTRAVENOUS q 12 H NORepinephrine 16 mg in D5W 250 mL (LEVOPHED) 0.6-50 mcg/min INTRAVENOUS CONTINUOUS octreotide 500 mcg in D5W 100 mL (SandoSTATIN) 50 mcg/hr INTRAVENOUS CONTINUOUS pantoprazole 40 mg injection (PROTONIX) 40 mg INTRAVENOUS BID AC (0600/1600) Parenteral Nutrition - Adult INTRAVENOUS ONCE TPN (2200 START) propofol infusion (DIPRIVAN) 5-60 mcg/kg/min INTRAVENOUS CONTINUOUS Cardiovascular: Regular rhythm Abdomen: Soft and Positive bowel sounds Extremities: restraints. Minimal edema Neuro: Sedated Pulm: coarse breath sounds, symmetric, chest tube right side. Intubated Renal: mcclain GI: NG tube Intake/Output Summary (Last 24 hours) at 04/18/18 0850 Last data filed at 04/18/18 0800 Gross per 24 hour Intake 2703.4 ml Output 3245 ml Net -541.6 ml Current Weight: Weight: 107.4 kg (236 lb 12.4 oz) Admission Weight: Weight: 106.1 kg (233 lb 14.5 oz) RESPIRATORY Mechanical Ventilation: Vent Mode: PC SIMV Freq (bpm): 24 PS (cmH20): 10 PEEP / CPAP (cmH20): 8 FIO2 (%): 30 Recent Labs 04/18/18 0631 04/18/18 0003 PH 7.45 7.45 PO2 104* 65* PCO2 33* 30* BE NEG 1 NEG 3 HCO3 23 21* LACT 1.3 0.8 Clinical Exam: Coarse breath sounds Breath Sounds Equal: Yes CXR Findings: Pleural effusion Right. Similar to previous day CXR INFUSION(S): Insulin, Propofol and octreotide Patient Lines Assessed: Lines, Drains, and Airways Line Arterial Line 04/14/18 2320 Arterial Line Left Radial 3 days Central Line Triple Lumen 04/14/18 2319 Non-tunneled Right Neck 3 days Peripheral 04/14/18 2344 Left Antecubital 18 Gauge 3 days Drain GI Feed/Drain 04/14/18 2319 Nasogastric Left Naris 16 Fr 3 days Indwelling Urinary Catheter 04/14/182113 Admission to Hospital [place] 3 days Chest Tube 04/16/18 2100 Right 28 Fr 1 day Airway Airway Endotracheal Tube 04/14/182114 3 days Diagnostic tests reviewed for today's visit: Most recent labs and imaging results. Assessment/Plan Mr.?Howard Villafana is a 52-year-old male with PMHx type II DM, poorly controlled HTN, CKD, COPD, tobacco smoker 2-3 PPD, alcohol use disorder with recent diagnosis of cirrhosis was transferred from OSH with an esophageal perforation seen on EGD. Patient initially presented with hematemesis and melena with accompanying dizziness and shortness of breath. Now being admitted to the SICU for surgical evaluation and hemodynamic monitoring. ? Neuro:?hx of heavy EtOH use, last drink on 04/13 -- tachypnea requiring intubation at OSH --Sedation with dexmedetomidine for history of heavy EtOH use. On propofol gtt. -- per , he previously drank 3 cider ales daily up until 1 month ago, around when he learned about his cirrhosis diagnosis. She notes that he had 2 drinks on 04/13. --thiamine and folic acid -- PRN fentanyl ? CV:? -- s/p levophed. Stopped 0750. 04/17. -- Goal MAP >65 - 04/17 CXR - improved aeration of the right lung with interval decrease in the right pleural effusion and associated atelectasis. ?Small right pleural effusion with right lower lobe atelectasis remains. - lactate 04/17 - 1.0 ? Pulm:??Hx of COPD. Intubated. Vent Mode: PC CMV Freq (bpm): 12 PS (cmH20): 10 PEEP / CPAP (cmH20): 8 FIO2 (%): 50 --Continue home bronchodilators --BPH, duonebs prn -- Chest tube output remains high - will maintain wall suction. Continue intubation ? Renal:??(baseline Cr ~1.2 from 02/2018) -- LIANE; most likely pre-renal. Cr 1.8 , downtrending -- UOP 2.6 --Monitor Cr and I/Os --Mcclain ? GI:?Likely partial thickness esophageal perforation. Presented from OSH on 04/14 with hematemesis, melena dizziness and SOB. EtOH cirrhosis with portal HTN, grade 2 esophageal varices -- EGD at OSH showed no mediastinal air -- 04/15 CT chest/abd/pel - mid distal esophageal tear 5.4cm from T6-T8. Small amount of enteric contrast extravasation and pneumomediastinum. - 04/15 EGD by GI - deep esophageal tear, not amenable to esophageal stenting --Pantoprazole for GI ppx and ocreotide gtt for at least 7 days (started 04/14) per GI --NPO, TPN --NGT repositioned by GI - DO NOT MANIPULATE BLINDLY -- thoracic does not recommend open surgical intervention. Perforation appears to be contained. Likely iatrogenic tear from prior tube placement. -- may develop mediastinal abscess within the next few days -- consider TF, need for post-pyloric feeds, method of placement (IR vs GI) - discuss with thoracic surg -- lactulose enema 04/18 ? Heme:? -- Hgb 8.1 -- thrombocytopenia. Will watch for signs of bleeding and need for further transfusion --Transfuse to keep Hgb >7 ? Fluid/Electrolyte/Nutrition: --NPO --Replete lytes as one time dosing -- TPN -- lr kvo ? Endo:?Hx of IDDM, HgbA1c 8.2. - glucose 140-222; BG goal 130-180 --Continue insulin gtt ? ID:?Esohageal tear and perforation. aztreonam and flagyl at OSH Febrile 38.8 @ 2000 on 04/16. WBC 10 > 13 BCx, UA - 04/17 Concern for mediastinitisis. ? Cultures/labs: - 04/14 blood culture - NGTD - 04/17 blood culture - NGTD - 04/17 UA - no indication of UTI - 04/14 TB blood screen - negative - 04/14 procalcitonin 2.67 ? - empiric coverage with cefepime, fluconazole, flagyl - end date in 1 month - allergy consult for skin test. 04/18. - ID following, appreciate recs ? PPX: - GI ppx - pantoprazole - VTE ppx - holding given concern for bleeding, thrombocytopenia PLAN - ordered TPN - will monitor UOP and Hemodynamics. S/p 250 cc LR x 2 Medication and Non-Pharmacologic VTE Prophylaxis/Anticoagulants 04/14/18 2100 pneumatic compression stockings ([place]) 04/14/18 2100 activity - mobilize patient ([place]) VTE Prophylaxis: holding given risk for bleeding SIGNATURE: García Bah MD, PGY-1 resident PATIENT NAME: Lazaro Villafana DATE: April 18, 2018 TIME: 8:50 AM PAGER/CONTACT #: [phone] SICU STAFF PHYSICIAN NOTE OF PERSONAL INVOLVEMENT IN CARE I have reviewed the progress note obtained and documented by the resident and I personally participated in the jang components as documented above regarding the following problems or issues and made appropriate changes below. Upon my evaluation, this patient had a high probability of imminent or life-threatening deterioration, which required my direct attention, intervention, personal management and decision making. EXAMINATION: intubated, sedated CXR rt effusion/atelectasis -ct and ett ok ACTIVE ISSUES AND PLAN: Neuro: Sedated with propofol while intubated but intact - continue sedation Resp: Intubated on 40% +8 - will continue vent today, begin weaning as able as long as remains stable hemodynamically off levo. Maintain Rt CT as continues to drain Car: Weaned off levo overnight - continue to monitor Renal: LIANE improving with Cr 1.8 with adeq uop, negative fluid balance - follow and aim for neg fluid balance again today GI / FEN / NTN: Thoracic feels no indication for surgical intervention - will discuss with them possibility of enteral access (place ft under direct vision) or TPN for 2 weeks, continue current TPN . Lactulose enema for BM. Cont Octreotide for 7 days total per GI rec's. Endo: Adeq glucose control on insulin drip, continue Heme: stable H/H and remains thrombocytopenic at 49k - follow closely, no indication for transfusion at present ID: Cont Cefepime, Fluconazole and Flagyl for possible mediastinitis with esophageal laceration / perf? WBC 6.8 - follow and will also have allergy see pt for unknown PCN allergy to potentially consolidate abx coverage Prophylaxis GI and mechanical DVT DIAGNOSiS / ISSUES / PROBLEMS:: Esophageal laceration Mediastinitis Pleural effusion Hypotension - resolved Acute respiratory insufficiency Acute blood loss anemia DM with hyperglycemia LIANE Close monitoring of the following has been required: respiratory status, cardiac status, mental status, urinary output, renal function, acute GI bleeding and infection DISPOSITION: SICU I devoted my full attention to the direct care of this patient for the amount of time indicated below, time includes review of laboratory data, radiology results, discussion with consultants, and monitoring for potential decompensation. Time I spent with family or surrogate(s) is included only if the patient was incapable of providing the necessary information or participating in medical decision making. Time devoted to teaching and to any procedures I billed separately is not included. Time spent providing critical care services: 40 minutes. SIGNATURE: RIVERA BAY MD DATE: April 18, 2018 1:00 PM Previous Version Leena Li MD 04/18/2018 12:45 PM Signed INFECTIOUS DISEASES PROGRESS NOTE Patient Name: Lazaro Villafana Account #: Data Unavailable Admission Date: 04/14/2018 Date of Evaluation: 04/18/2018 Time of Evaluation: 10:20 AM INTERVAL HPI: Afebrile since 04/16/18. Downtrending leukocytosis. EGD 04/15 could not stent lesion. Ongoing mediastinitis to be followed by thoracic surgery. MEDICATIONS: Current hospital medications: albuterol 2.5 mg/0.5 mL 2.5 mg nebulizer solution (PROVENTIL) 2.5 mg INHALATION q 4 H PRN cefepime 2 g in D5W 100 mL MB+ (MAXIPIME) 2 g INTRAVENOUS q 12 H Chlorhexidine Gluconate 0.12 % 15 mL (PERIDEX) 15 mL ORAL QID dextrose 50 % 12.5-25 g injection 25-50 mL INTRAVENOUS PRN fentaNYL 50 mcg/mL 25-50 mcg injection (SUBLIMAZE) 25-50 mcg INTRAVENOUS q 1 H PRN fluconazole 200 mg in NaCl (iso-osmotic) 100 mL (DIFLUCAN) 200 mg INTRAVENOUS DAILY insulin regular 250 units in NaCl 0.9% 250 mL iv infusion - ICU NOMOGRAM 0.5-30 Units/hr INTRAVENOUS CONTINUOUS insulin regular human iv bolus 2-10 Units 2-10 Units INTRAVENOUS PRN ipratropium-albuterol 3 mL nebulizer solution (DUONEB) 3 mL INHALATION q 4 H PRN lactated ringers infusion 5-30 mL/hr INTRAVENOUS CONTINUOUS metroNIDAZOLE 500 mg PREMIX piggyback (FLAGYL) 500 mg INTRAVENOUS q 8 H mupirocin 2% 0.5 g nasal ointment (BACTROBAN) 0.5 g NASAL BID NaCl 0.9% 3-5 mL 3-5 mL INTRAVENOUS q 12 H NORepinephrine 16 mg in D5W 250 mL (LEVOPHED) 0.6-50 mcg/min INTRAVENOUS CONTINUOUS octreotide 500 mcg in D5W 100 mL (SandoSTATIN) 50 mcg/hr INTRAVENOUS CONTINUOUS pantoprazole 40 mg injection (PROTONIX) 40 mg INTRAVENOUS BID AC (0600/1600) Parenteral Nutrition - Adult INTRAVENOUS ONCE TPN (0 START) propofol infusion (DIPRIVAN) 5-60 mcg/kg/min INTRAVENOUS CONTINUOUS PHYSICAL EXAM: BP 130/69 Pulse 77 Temp 37.7 ?C (99.9 ?F) (Oral) Resp 24 Wt 107.4 kg (236 lb 12.4 oz) SpO2 94% BMI 33.97 kg/m? Lines: Mcclain 04/14, Nontunnelled triple lumen 04/14 in R neck, ET tube 04/14, NG in L nare 04/14, L radial A-line 04/14 ?GENERAL APPEARANCE: Patient is critically ill appearing. Sedated. SKIN: No lesions noted. EYES: PERRLA NOSE: Left Nare Ng tube in place. NECK: R nontunnelled triple lumen catheter with no overlying erythema, swelling or warmth. LUNGS: clear to auscultation, no wheezes, or crackles. HEART: ?Regular rate/rhythm, normal heart sounds, and no murmurs. ABDOMEN: Soft, epigastric tenderness, BS present. EXTREMITIES: Edema of hands b/l, no LE edema. NEURO: Sedated, not following commands. DIAGNOSTICS REVIEWED CBC: Recent Labs 04/18/18 0002 04/17/18 1744 04/17/18 0617 04/17/18 0019 04/16/18 1653 04/16/18 0841 04/16/18 0031 04/15/18 1637 WBC 6.79 7.91 11.97* 13.12* 10.22 10.27 4.84 9.57 HB 8.1* 8.2* 8.1* 8.4* 8.2* 8.4* 7.8* 6.4* HCT 24.1* 24.5* 24.8* 25.2* 24.2* 24.6* 22.6* 18.7* PLT 49* 51* 66* 61* 50* 59* 35* 48* MCV 89.6 89.4 89.5 90.6 88.6 86.0 86.6 84.2 RDWCV 16.4* 16.2* 16.2* 15.9* 15.7* 15.6* 15.2* 16.1* NEUTP 76.6 -- -- -- -- -- -- -- ABSNEUT 5.21 -- -- -- -- -- -- -- LYMPHP 13.3 -- -- -- -- -- -- -- MONOP 8.0 -- -- -- -- -- -- -- EODINP 1.8 -- -- -- -- -- -- -- CRP: No results found for: CRP COAG: Recent Labs 04/18/18 0002 04/17/18 0019 04/16/18 0031 04/15/18 0500 04/15/18 0345 04/14/18 2120 04/14/18 1700 04/14/18 1415 APTT 31.7 32.1 31.6 -- Unable to assay. Specimen improperly collected/handled. -- -- -- INR 1.3 1.3 1.4* 1.3 Unable to assay. Specimen improperly collected/handled. 1.3 1.35* 1.31* BMP: Recent Labs 04/18/18 0002 04/17/18 0019 04/16/183004/15/1834404/14/18211904/14/18169904/14/18 1415 GLUC 202* 229* 238* 359* 445* 545* 494* NA 142 137 139 136 140 136 135* K 3.6* 4.1 4.0 4.8 5.0 6.6* 5.3* CHLOR 109* 106* 103 98 100 102 102 CO2 21* 21* 23 23 24 22 22 ANION 12 10 13 15 16 19* 16 BUN 63* 69* 67* 74* 76* 73* 73* CREAT 1.80* 2.34* 1.97* 2.47* 2.71* 2.66* 2.21* CHEM: Recent Labs 04/18/18 0002 04/17/18 00104/16/183004/15/[id number]/14/[id number]/14/18169904/14/18 1415 ALB 2.4* 2.5* 2.7* 2.6* 2.4* 2.2* 2.7* TPROT 5.5* 5.6* 5.2* 5.2* 4.9* 5.1* 6.2* CA 7.5* 7.2* 7.2* 7.9* 7.1* 7.0* 8.0* MG 2.2 2.2 1.3* 1.7 1.3* -- -- HEPATIC: Recent Labs 04/18/18 0002 04/17/18 0019 04/16/183004/15/1834404/14/18211904/14/18169904/14/18 1415 ALKPHOS 49 48 41 47 50 64 76 ALT 16 19 22 23 23 27 29 AST 30 30 39 44* 36 28 29 TBILI 0.6 1.0 1.5* 0.4 0.7 0.7 0.7 URINALYSIS: Recent Labs 04/18/18 0631 04/18/18 0003 04/17/18 1226 04/17/18 0921 04/17/18 0440 04/17/18 0033 04/16/18 1917 04/16/18 0914 04/16/18 0613 04/14/18 1455 PH 7.45 7.45 7.40 -- 7.37 7.36 7.36 7.36 7.42 < > -- SPGR -- -- -- 1.017 -- -- -- -- -- -- 1.021 UGLUC -- -- -- Negative -- -- -- -- -- -- >=1000* UBILI -- -- -- Negative -- -- -- -- -- -- NEGATIVE UKET -- -- -- Negative -- -- -- -- -- -- NEGATIVE UHB -- -- -- 2+* -- -- -- -- -- -- -- UPROT -- -- -- Negative -- -- -- -- -- -- NEGATIVE UROBIL -- -- -- -- -- -- -- -- -- -- 0.2 UWBC -- -- -- 0-5 -- -- -- -- -- -- 0.4 < > = values in this interval not displayed. micro and radiology personally reviewed IMPRESSION / PLAN 52 yo M with a h/o cirrhosis, EtoH related, CKD, COPD and reported + PPD in the past. Currently no clinical or imaging evidence of active pulmonary TB. Presenting with hemorrhagic shock secondary to hematemesis/esophageal tear c/b pneumomediastinum. ? Plan: - continue cefepime, metronidazole, fluconazole as ordered Discussed with attending, Perla Delgado PGY4 [facility] STAFF PHYSICIAN NOTE OF PERSONAL INVOLVEMENT IN CARE Events reviewed. Patient examined. Findings as outlined in the fellow's note above. Jang elements verified. ? Relevant lab data, microbiology and imaging data reviewed. Relevant images personally reviewed. ? Agree with assessment and plan as outlined in the fellow's note above. I was physically present for the critical portions of the service provided by the ID team. The management plan reflects my input. ? Dr Meliton Ac will cover me tomorrow, please call with questions Marguerite Li MD Staff, Department of Infectious Disease Pager: [phone] April 18, 2018 12:45 PM Previous Version Yanni Vazquez RN, RN 04/18/2018 10:06 AM Signed Nursing Progress: Topic: RESTRAINT NON-VIOLENT PATIENT NAME: Lazaro Villafana PATIENT LOCATION: [place] [address] The patient demonstrates Attempting to Remove Medical Devices Vital to Medical Stability, Lack of Understanding/Ability to Comply with Safety Directions as evidenced by the following behaviors reaching for ETT and NG which pose an imminent danger to self or others. The following interventions were attempted but were not effective in protecting the patient's safety: Alarms, Bed in Low/Locked Position, Medications Reviewed, Modify Environment, Modify Equipment, Frequent Observation Next, a comprehensive assessment was performed and warranted placing the patient in Soft Bilateral Wrists, the least restrictive restraint needed to protect the patient's safety. Ongoing safety assessments and evaluation for earliest removal of restraints will be performed. DATE: April 18, 2018 TIME: 10:06 AM BLAYNE Pantoja RN, RN 04/18/2018 11:13 AM Signed CARE MANAGEMENT PROGRESS NOTE SERVICE DATE: 04/18/2018 SERVICE TIME: 11:10 AM LOS: 4 days Patient remains in SICU intubated and sedated, now off pressors, continues on TPN, Insulin and Octreotide with NG. Had right chest tube inserted 04/16 due to increased effusion, remains to suction. CTS following esophageal perforation, no plans for OR at this time. Laser Specialist to follow for discharge planning pending POC and medical stability. Needs Prior to Discharge: To Be Determined SIGNATURE: Rai Kramer RN PATIENT NAME: Lazaro Villafana DATE: April 18, 2018 TIME: 11:10 AM PAGER/CONTACT #: [phone] Ekaterina Zabala PT 04/18/2018 3:02 PM Signed PHYSICAL THERAPY MISSED VISIT SERVICE DATE: 04/18/2018 SERVICE TIME: 1501 to 1501 ROOM: [place] [address] Attempted Evaluation. Patient not seen. Intubated and sedated today. Will reattempt at another time. SIGNATURE: Ekaterina Zabala PT PATIENT NAME: Lazaro Villafana DATE: April 18, 2018 TIME: 3:01 PM Ted Mackenzie MD, MD 04/19/2018 7:15 AM Addendum SURGICAL INTENSIVE CARE UNIT PROGRESS NOTE SERVICE DATE: April 19, 2018 SERVICE TIME: 0430 Subjective No acute events overnight Objective VITAL SIGNS Temp: (!) 38.1 ?C (100.6 ?F) Pulse: 80 BP: 121/70 MAP Non Invasive (Mean Arterial Pressure): 90 Resp: 23 SpO2: 100 % Not applicable Current Facility-Administered Medications: albuterol 2.5 mg/0.5 mL 2.5 mg nebulizer solution (PROVENTIL) 2.5 mg INHALATION q 4 H PRN cefepime 2 g in D5W 100 mL MB+ (MAXIPIME) 2 g INTRAVENOUS q 12 H Chlorhexidine Gluconate 0.12 % 15 mL (PERIDEX) 15 mL ORAL QID dextrose 50 % 12.5-25 g injection 25-50 mL INTRAVENOUS PRN fentaNYL 50 mcg/mL 25-50 mcg injection (SUBLIMAZE) 25-50 mcg INTRAVENOUS q 1 H PRN fluconazole 200 mg in NaCl (iso-osmotic) 100 mL (DIFLUCAN) 200 mg INTRAVENOUS DAILY insulin regular 250 units in NaCl 0.9% 250 mL iv infusion - ICU NOMOGRAM 0.5-30 Units/hr INTRAVENOUS CONTINUOUS insulin regular human iv bolus 2-10 Units 2-10 Units INTRAVENOUS PRN ipratropium-albuterol 3 mL nebulizer solution (DUONEB) 3 mL INHALATION q 4 H PRN lactated ringers infusion 5-30 mL/hr INTRAVENOUS CONTINUOUS metroNIDAZOLE 500 mg PREMIX piggyback (FLAGYL) 500 mg INTRAVENOUS q 8 H mupirocin 2% 0.5 g nasal ointment (BACTROBAN) 0.5 g NASAL BID NaCl 0.9% 3-5 mL 3-5 mL INTRAVENOUS q 12 H NORepinephrine 16 mg in D5W 250 mL (LEVOPHED) 0.6-50 mcg/min INTRAVENOUS CONTINUOUS octreotide 500 mcg in D5W 100 mL (SandoSTATIN) 50 mcg/hr INTRAVENOUS CONTINUOUS pantoprazole 40 mg injection (PROTONIX) 40 mg INTRAVENOUS BID AC (0600/1600) Parenteral Nutrition - Adult INTRAVENOUS ONCE TPN (2200 START) potassium chloride iv piggyback 20 mEq/100 mL 20 mEq INTRAVENOUS PRN Or potassium chloride 20-80 mEq CUP 20-80 mEq ORAL/FEEDING TUBE PRN propofol infusion (DIPRIVAN) 5-60 mcg/kg/min INTRAVENOUS CONTINUOUS Cardiovascular: Regular rhythm Abdomen: Soft and Nontender Extremities: Mild pedal edema Neuro: Sedated Intake/Output Summary (Last 24 hours) at 04/19/18 0441 Last data filed at 04/19/18 0300 Gross per 24 hour Intake 2564.7 ml Output 2920 ml Net -355.3 ml Current Weight: Weight: 107.4 kg (236 lb 12.4 oz) Admission Weight: Weight: 106.1 kg (233 lb 14.5 oz) RESPIRATORY Mechanical Ventilation: Vent Mode: PC SIMV Freq (bpm): 18 PS (cmH20): 8 PEEP / CPAP (cmH20): 8 FIO2 (%): 40 Recent Labs 04/19/18 0411 04/19/18 0009 PH 7.45 7.43 PO2 82* 83* PCO2 33* 33* BE NEG 1 NEG 2 HCO3 22 22 LACT 1.0 1.2 Clinical Exam: Rales right Breath Sounds Equal: Yes CXR Findings: Pleural effusion Right , Right chest tube in place Index Current Meds I/O and Results Selected Labs Nutrition Orders Active Lines Problem List Allergies History Treatment Team My Charges AND Notes Link to IP Notes Hospital Course by Problem List Common SmartLinks Care Plan/Patient Ed Provider Checklist Imaging Micro Text Last 60 Days Transition of Care Lines/Drains/Airways Report Line Arterial Line 04/14/18 2320 Arterial Line Left Radial 4 days Central Line Triple Lumen 04/14/18 2319 Non-tunneled Right Neck 4 days Peripheral 04/14/18 2344 Left Antecubital 18 Gauge 4 days Drain GI Feed/Drain 04/14/18 2319 Nasogastric Left Naris 16 Fr 4 days Indwelling Urinary Catheter 04/14/184 Admission to Hospital [place] 4 days Chest Tube 04/16/18 2100 Right 28 Fr 2 days Airway Airway Endotracheal Tube 04/14/18 2115 4 days Skin Other Skin Conditions Bruising Toes - Left Foot -- days Assessment/Plan Mr.?Howard Villafana is a 52-year-old male with PMHx type II DM, poorly controlled HTN, CKD, COPD, tobacco smoker 2-3 PPD, alcohol use disorder with recent diagnosis of cirrhosis was transferred from [facility] with an esophageal perforation seen on EGD. Patient initially presented with hematemesis and melena with accompanying dizziness and shortness of breath. Now being admitted to the SICU for surgical evaluation and hemodynamic monitoring. ? Neuro:?hx of heavy EtOH use, last drink on 04/13 -- tachypnea requiring intubation at OSH -- On propofol gtt. -- per , he previously drank 3 cider ales daily up until 1 month ago, around when he learned about his cirrhosis diagnosis. She notes that he had 2 drinks on 04/13. ? --thiamine and folic acid -- PRN fentanyl ? CV:? -- Goal MAP >65 - 04/17 CXR - improved aeration of the right lung with interval decrease in the right pleural effusion and associated atelectasis. ?Small right pleural effusion with right lower lobe atelectasis remains. - lactate - 1.0 ? Pulm:??Hx of COPD. Intubated. Vent Mode: PC SIMV Freq (bpm): 18 PS (cmH20): 8 PEEP / CPAP (cmH20): 8 FIO2 (%): 40 --Continue home bronchodilators --BPH, duonebs prn -- Chest tube output 150cc over 24 hrs - will maintain wall suction. Continue intubation ? Renal:??(baseline Cr ~1.2 from 02/2018) -- LIANE; most likely pre-renal.?Cr 1.8 , downtrending on 04/18 --Monitor Cr and I/Os --[place] ? GI:?Likely partial thickness esophageal perforation. Presented from OSH on 04/14 with hematemesis, melena dizziness and SOB. EtOH cirrhosis with portal HTN, grade 2 esophageal varices -- EGD at OSH showed no mediastinal air -- 04/15 CT chest/abd/pel - mid distal esophageal tear 5.4cm from T6-T8. Small amount of enteric contrast extravasation and pneumomediastinum. - 04/15 EGD by GI - deep esophageal tear, not amenable to esophageal stenting --Pantoprazole for GI ppx and ocreotide gtt for at least 7 days (started 04/14) per GI --NPO, TPN --NGT repositioned by GI - DO NOT MANIPULATE BLINDLY -- thoracic does not recommend open surgical intervention. Perforation appears to be contained. Likely iatrogenic tear from prior tube placement. -- may develop mediastinal abscess within the next few days ? -- consider TF, need for post-pyloric feeds, method of placement (IR vs GI) - awaiting thoracic surg decision -- lactulose enema 04/18 ? Heme:? -- Hgb 8.2 -- thrombocytopenia. Will watch for signs of bleeding and need for further transfusion --Transfuse to keep Hgb >7 ? Fluid/Electrolyte/Nutrition: --NPO --Replete lytes as one time dosing -- TPN -- lr kvo ? Endo:?Hx of IDDM, HgbA1c 8.2. - glucose 140-222; BG goal 130-180 --Continue insulin gtt ? ID:?Esohageal tear and perforation. aztreonam and flagyl at OSH Febrile 38.2 04/18. WBC normalized BCx, UA - 04/17 Concern for mediastinitisis. ? Cultures/labs: - 04/14 blood culture - NGTD - 04/17 blood culture - NGTD - 04/17 UA - no indication of UTI - 04/14 TB blood screen - negative - 04/14 procalcitonin 2.67 ? - empiric coverage with cefepime, fluconazole, flagyl - end date in 1 month - allergy consult for skin test. 04/18. ? - ID following, appreciate recs ? PPX: - GI ppx - pantoprazole - VTE ppx - holding given concern for bleeding, thrombocytopenia Medication and Non-Pharmacologic VTE Prophylaxis/Anticoagulants 04/14/18 2100 pneumatic compression stockings ([place]) 04/14/18 2100 activity - mobilize patient ([place]) VTE Prophylaxis: VTE prophylaxis appropriate SIGNATURE: Cortes Vargas MD, Fellow PATIENT NAME: Lazaro Villafana DATE: April 19, 2018 TIME: 4:41 AM PAGER/CONTACT #:[phone] [facility] [employer] -- Gurdeep Patient Name: Lazaro Villafana Patient seen and examined with the ICU team residents, fellows, ancillary and RN. I have reviewed the HANDP/Progress notes. I personally participated in the jang components. I have discussed the case and management of the patient's care with the RN. For further labs and/or history please see HANDP/progress notes. Please see physical exam results documented in the residents/fellows notes that were independently verified. This patient has a high probability of sudden, clinically significant deterioration, which required the highest level of preparedness to intervene urgently. I participated in the decision making and personally managed or directed the management of life and organ supporting interventions that required my frequent assessment to treat or prevent imminent deterioration. Time devoted to any procedures I billed separately is not included in the aggregate time. I personally spent 60 minutes of critical care time involved in the care of this patient. This care required my full attention and direct personal management. CRITICAL CARE Interval events: following commands off sedation Agree with plan as outlined above with highlighted additions/corrections/deletions and further recommendations below. Remain in ICU. Propofol for comfort while intubated. Wean vent as tolerated. Trend renal indices as UOP reassuring. Would favor stenting esophagus if possible. From report, GI felt esophagus was of too large a caliber for a stent, thoracic felt this was still an option. From repeat chest CT 04/17 there is possible contrast extravasation, but definite pneumomediastinum. What is the plan? TPN for nutrition. Insulin drip for hyperglycemia. Trend HANDH and platelets no need to transfuse. Acute (Pleural effusion) on chronic (COPD) hypoxic respiratory insufficiency LIANE Electrolyte disturbances Esophageal laceration NIDDM with stress hyperglycemia Mediastinitis Acute blood loss anemia Secondary thrombocytopenia Relevant chronic conditions COPD EtOH cirrhosis HTN NIDDM2 Moderate PCM Ted Mackenzie MD April 19, 2018 7:13 AM Previous Version Ted Proctor MD, MD 04/19/2018 6:56 AM Signed GENERAL SURGERY PROGRESS NOTE ASSESSMENT AND PLAN 52 year old male with PMHx type II DM, poorly controlled HTN, CKD, COPD, tobacco smoker 2-3 PPD, alcohol use disorder with recent diagnosis of cirrhosis w/ esophageal varices who presents on transfer from OSH with hematemesis s/p EGD at OSH c/b esophageal laceration that appears to be contained; MELD > 20 - Strict NPO - No surgical intervention planned - Thoracic surgery following -supportive care - trend labs - ICU *After 6pm and on weekends please page general surgery director of early childhood education [phone]* SUBJECTIVE/INTERVAL EVENTS Off pressors, still intubated, 150 from chest tube, adequate UOP OBJECTIVE BP 121/70 Pulse 80 Temp (!) 38.1 ?C (100.6 ?F) (Oral) Resp 23 Wt 108.7 kg (239 lb 10.2 oz) SpO2 100% BMI 34.38 kg/m? Intake/Output Summary (Last 24 hours) at 04/18/18 0626 Last data filed at 04/18/18 0600 Gross per 24 hour Intake 2703.4 ml Output 3330 ml Net -626.6 ml General: sedated, ill appearing CV: on pressors Pulm: vent Neck: no subQ crepitus appreciated Abdomen: soft Neuro: limited exam 05/21 sedation Labs/Imaging: CBC, BMP, MG, PHOS Recent Labs 04/19/18 0330 04/18/18 0002 04/17/18 1744 04/17/18 0617 04/17/18 0019 04/16/18 0031 WBC 6.66 6.79 7.91 11.97* 13.12* < > 4.84 HB 8.2* 8.1* 8.2* 8.1* 8.4* < > 7.8* HCT 25.2* 24.1* 24.5* 24.8* 25.2* < > 22.6* PLT 51* 49* 51* 66* 61* < > 35* NA 143 142 -- -- 137 -- 139 K 4.0 3.6* -- -- 4.1 -- 4.0 CHLOR 111* 109* -- -- 106* -- 103 CO2 20* 21* -- -- 21* -- 23 BUN 58* 63* -- -- 69* -- 67* CREAT 1.47* 1.80* -- -- 2.34* -- 1.97* GLUC 159* 202* -- -- 229* -- 238* CA 7.4* 7.5* -- -- 7.2* -- 7.2* MG 1.9 2.2 -- -- 2.2 -- 1.3* P 2.0* 2.5* -- -- 4.3 -- 2.6* < > = values in this interval not displayed. Liver Function, Amylase, AND Lipase Recent Labs 04/19/18 0411 04/19/18 0330 04/19/18 0009 04/18/18 0631 04/18/18 0003 04/18/18 0002 04/17/18 0019 04/16/18 0031 TPROT -- 5.3* -- -- -- 5.5* -- 5.6* -- 5.2* ALB -- 2.1* -- -- -- 2.4* -- 2.5* -- 2.7* ALT -- 16 -- -- -- 16 -- 19 -- 22 AST -- 30 -- -- -- 30 -- 30 -- 39 ALKPHOS -- 56 -- -- -- 49 -- 48 -- 41 TBILI -- 0.6 -- -- -- 0.6 -- 1.0 -- 1.5* LACT 1.0 -- 1.2 1.3 0.8 -- < > -- < > -- < > = values in this interval not displayed. Coags Recent Labs 04/18/18 0002 04/17/18 0019 04/16/18 0031 04/15/18 0500 04/15/18 0345 APTT 31.7 32.1 31.6 -- Unable to assay. Specimen improperly collected/handled. INR 1.3 1.3 1.4* 1.3 Unable to assay. Specimen improperly collected/handled. Active Hospital Problems Diagnosis Date Noted - Mild protein-calorie malnutrition (HCC) 04/17/2018 - Esophageal perforation 04/14/2018 Ted Proctor MD [id number] Francois Gann MD,PhD 04/19/2018 7:47 AM Signed [facility] SURGERY CONSULT PROGRESS NOTE Lazaro Villafana [id number] PRIMARY SERVICE: HOSPITAL DAY: # 5 INTERVAL HISTORY No acute events overnight. Off pressors. CT output 150cc down from 640. PHYSICAL EXAM BP 98/57 Pulse 74 Temp (!) 38.1 ?C (100.6 ?F) (Oral) Resp 6 Wt 108.7 kg (239 lb 10.2 oz) SpO2 99% BMI 34.38 kg/m? Intake/Output Summary (Last 24 hours) at 04/19/18 0742 Last data filed at 04/19/18 0700 Gross per 24 hour Intake 3104.9 ml Output 3145 ml Net -40.1 ml Constitutional: intubated, sedated HEENT: intubated Resp: VENT FiO2 40, PEEP 8; R chest tube in place and on suction, no air leak, sanguineous output Cardiovascular: Cardiac: RR Integumentary: Warm Musculoskeletal: No deformities Neurological/Psychiatric: intubated Additional systems reviewed: No additional systems reviewed DATA Recent Labs 04/19/18 0330 04/18/18 0002 04/17/18 1744 WBC 6.66 6.79 7.91 HB 8.2* 8.1* 8.2* HCT 25.2* 24.1* 24.5* PLT 51* 49* 51* Recent Labs 04/19/18 0330 04/18/18 0002 04/17/18 0019 NA 143 142 137 K 4.0 3.6* 4.1 CO2 20* 21* 21* BUN 58* 63* 69* CREAT 1.47* 1.80* 2.34* GLUC 159* 202* 229* MG 1.9 2.2 2.2 IMAGING I personally reviewed: CXR 04/19 in process, will f/u ASSESSMENT AND PLAN 52 year old male with multiple medical comorbidities now with likely partial thickness esophageal perforation, putatively from S-B tube placement at OSH. It is unlikely that this is the etiology of his massive hemoptysis, reportedly there were multiple varices that, in the background of cirrhosis is the likely etiology of his bleed. While he is requiring high doses of vasopressors, it is unlikely that the source of his shock is purely from his esophageal perforation given his lack of pleural effusion or free flowing contrast. ?04/15 EGD showed 5cm esophageal laceration without active bleeding. 04/16 Right chest tube placed for effusion. - STRICT NPO for at least 2 weeks - Do NOT manipulate NGT blindly - no acute surgical intervention indicated at this point - monitor chest tube output - chest tube to suction - Recommend eventual PEG with J extension for feeding - will follow ? Francois Gann MD,PhD Pager [phone]? 04/19/2018 7:42 AM Sunny Rizvi RN, RN 04/19/2018 8:28 AM Signed Nursing Progress: Topic: RESTRAINT NON-VIOLENT PATIENT NAME: Lazaro Villafana PATIENT LOCATION: [place] [address] The patient demonstrates Attempting to Remove Medical Devices Vital to Medical Stability, Lack of Understanding/Ability to Comply with Safety Directions as evidenced by the following behaviors attempting to remove ETT which pose an imminent danger to self or others. The following interventions were attempted but were not effective in protecting the patient's safety: Alarms, Bed in Low/Locked Position, Medications Reviewed, Modify Environment, Modify Equipment, Frequent Observation Next, a comprehensive assessment was performed and warranted placing the patient in Soft Bilateral Wrists, the least restrictive restraint needed to protect the patient's safety. Ongoing safety assessments and evaluation for earliest removal of restraints will be performed. DATE: April 19, 2018 TIME: 8:28 AM BLAYNE Maldonado rn, RN 04/20/2018 2:12 AM Signed Nursing Progress: Topic: RESTRAINT NON-VIOLENT PATIENT NAME: Lazaro Villafana PATIENT LOCATION: [place] [address] The patient demonstrates Attempting to Remove Medical Devices Vital to Medical Stability as evidenced by the following behaviors pulling at et tube which pose an imminent danger to self or others. The following interventions were attempted but were not effective in protecting the patient's safety: Alarms, Bed in Low/Locked Position Next, a comprehensive assessment was performed and warranted placing the patient in Soft Bilateral Wrists, the least restrictive restraint needed to protect the patient's safety. Ongoing safety assessments and evaluation for earliest removal of restraints will be performed. 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, alcohol use disorder with recent diagnosis of cirrhosis w/ esophageal varices who presents on transfer from OSH with hematemesis s/p EGD at OSH c/b esophageal laceration that appears to be contained; MELD > 20 - Strict NPO - No surgical intervention planned - Thoracic surgery following -supportive care - trend labs - ICU *After 6pm and on weekends please page general surgery director of early childhood education [phone]* SUBJECTIVE/INTERVAL EVENTS Remains febrile, no leukocytosis, adequate UOP, minimal chest tube output, CXR w/ increased consolidation on R OBJECTIVE BP 135/60 Pulse 81 Temp (!) 38.4 ?C (101.1 ?F) (Oral) Resp 20 Ht 177.8 cm (5' 10) Wt 108 kg (238 lb 1.6 oz) SpO2 95% BMI 34.16 kg/m? Intake/Output Summary (Last 24 hours) at 04/19/18 0659 Last data filed at 04/19/18 0600 Gross per 24 hour Intake 3104.9 ml Output 3120 ml Net -15.1 ml General: sedated, ill appearing CV: on pressors Pulm: vent Neck: no subQ crepitus appreciated Abdomen: soft Neuro: limited exam 05/21 sedation Labs/Imaging: CBC, BMP, MG, PHOS Recent Labs 04/20/18 0134 04/19/18 0330 04/18/18 0002 04/17/18 1744 04/17/18 0019 WBC 9.01 6.66 6.79 7.91 < > 13.12* HB 8.0* 8.2* 8.1* 8.2* < > 8.4* HCT 24.9* 25.2* 24.1* 24.5* < > 25.2* PLT 74* 51* 49* 51* < > 61* NA 143 143 142 -- -- 137 K 4.1 4.0 3.6* -- -- 4.1 CHLOR 111* 111* 109* -- -- 106* CO2 20* 20* 21* -- -- 21* BUN 57* 58* 63* -- -- 69* CREAT 1.50* 1.47* 1.80* -- -- 2.34* GLUC 219* 159* 202* -- -- 229* CA 7.7* 7.4* 7.5* -- -- 7.2* MG 2.0 1.9 2.2 -- -- 2.2 P 2.7 2.0* 2.5* -- -- 4.3 < > = values in this interval not displayed. Liver Function, Amylase, AND Lipase Recent Labs 04/20/18 0144 04/20/18 0134 04/19/18 0829 04/19/18 0411 04/19/18 0330 04/19/18 0009 04/18/18 0002 04/17/18 0019 TPROT -- 5.1* -- -- 5.3* -- -- 5.5* -- 5.6* ALB -- 2.1* -- -- 2.1* -- -- 2.4* -- 2.5* ALT -- 14 -- -- 16 -- -- 16 -- 19 AST -- 37 -- -- 30 -- -- 30 -- 30 ALKPHOS -- 62 -- -- 56 -- -- 49 -- 48 TBILI -- 0.6 -- -- 0.6 -- -- 0.6 -- 1.0 LACT 1.1 -- 0.9 1.0 -- 1.2 < > -- < > -- < > = values in this interval not displayed. Coags Recent Labs 04/18/18 0002 04/17/18 0019 04/16/18 0031 04/15/18 0500 04/15/18 0345 APTT 31.7 32.1 31.6 -- Unable to assay. Specimen improperly collected/handled. INR 1.3 1.3 1.4* 1.3 Unable to assay. Specimen improperly collected/handled. Active Hospital Problems Diagnosis Date Noted - Mild protein-calorie malnutrition (HCC) 04/17/2018 - Esophageal perforation 04/14/2018 Ted Proctor MD [id number] Previous Version Francois Gann MD,PhD 04/20/2018 8:46 AM Cosign Needed [facility] CONSULT PROGRESS NOTE Lazaro Villafana [id number] PRIMARY SERVICE: HOSPITAL DAY: # 6 INTERVAL HISTORY No acute events overnight. CT output 50 (450). PHYSICAL EXAM BP 135/60 Pulse 81 Temp (!) 38.4 ?C (101.1 ?F) (Oral) Resp 20 Ht 177.8 cm (5' 10) Wt 108 kg (238 lb 1.6 oz) SpO2 95% BMI 34.16 kg/m? Intake/Output Summary (Last 24 hours) at 04/20/18 0546 Last data filed at 04/20/18 0400 Gross per 24 hour Intake 3226.4 ml Output 2470 ml Net 756.4 ml Constitutional: intubated, sedated HEENT: intubated Resp: VENT FiO2 40, PEEP 10;?R chest tube in place and on suction, no air leak, sanguineous output Cardiovascular: Cardiac: RR Integumentary: Warm Musculoskeletal: No deformities Neurological/Psychiatric: intubated Additional systems reviewed: No additional systems reviewed DATA Recent Labs 04/20/18 0134 04/19/18 0330 04/18/18 0002 WBC 9.01 6.66 6.79 HB 8.0* 8.2* 8.1* HCT 24.9* 25.2* 24.1* PLT 74* 51* 49* Recent Labs 04/20/18 0134 04/19/18 0330 04/18/18 0002 NA 143 143 142 K 4.1 4.0 3.6* CO2 20* 20* 21* BUN 57* 58* 63* CREAT 1.50* 1.47* 1.80* GLUC 219* 159* 202* MG 2.0 1.9 2.2 IMAGING I personally reviewed: CXR ASSESSMENT AND PLAN 52 year old male with multiple medical comorbidities now with likely partial thickness esophageal perforation, putatively from S-B tube placement at OSH. It is unlikely that this is the etiology of his massive hemoptysis, reportedly there were multiple varices that, in the background of cirrhosis is the likely etiology of his bleed. While he is requiring high doses of vasopressors, it is unlikely that the source of his shock is purely from his esophageal perforation given his lack of pleural effusion or free flowing contrast. ?04/15 EGD showed 5cm esophageal laceration without active bleeding. 04/16 Right chest tube placed for effusion. ? Plan - STRICT NPO for at least 2 weeks - continue TPN for the time being - patient would likely benefit from re-scoping some time next week, would coordinate this with GI to see if they agree; at that point most appropriate feeding options could be discussed - Do NOT manipulate NGT blindly - no acute surgical intervention indicated at this point - chest tube to suction ? Plan discussed with Dr. Soto. Francois Gann MD,PhD Pager [phone]?? 04/20/2018 5:46 AM Leena Li MD 04/20/2018 12:59 PM Signed INFECTIOUS DISEASES PROGRESS NOTE Patient Name: Lazaro Villafana Account #: Data Unavailable Admission Date: 04/14/2018 Date of Evaluation: 04/20/2018 Time of Evaluation: 10:20 AM INTERVAL HPI: Increasing fever curve to 102F 0000 04/20/18. Stable leukocytosis, downtrended from admission. Ongoing known mediastinitis, no surgical intervention planned at this time. Day 6 cefepime, fluconazole, metronidazole. Improving creatinine. CXR 04/20/18 with worsening right lung opacities. MEDICATIONS: Current hospital medications: acetaminophen 650 mg suppository (TYLENOL) 650 mg RECTAL q 4 H PRN albuterol 2.5 mg/0.5 mL 2.5 mg nebulizer solution (PROVENTIL) 2.5 mg INHALATION q 4 H PRN cefepime 2 g in D5W 100 mL MB+ (MAXIPIME) 2 g INTRAVENOUS q 8 HR Chlorhexidine Gluconate 0.12 % 15 mL (PERIDEX) 15 mL ORAL QID dextrose 40 % 15 g 15 g ORAL PRN dextrose 50 % 12.5 g injection 12.5 g INTRAVENOUS PRN fentaNYL 50 mcg/mL 25-50 mcg injection (SUBLIMAZE) 25-50 mcg INTRAVENOUS q 1 H PRN fluconazole 200 mg in NaCl (iso-osmotic) 100 mL (DIFLUCAN) 200 mg INTRAVENOUS DAILY glucagon 1 mg injection (GLUCAGEN) 1 mg INTRAMUSCULAR PRN insulin glargine 18 Units pen (long acting) (LANTUS SOLOSTAR, BASAGLAR KWIKPEN) 18 Units SUBCUTANEOUS AT BEDTIME insulin lispro injection (rapid acting) (HumaLOG) SUBCUTANEOUS q 6 H ipratropium-albuterol 3 mL nebulizer solution (DUONEB) 3 mL INHALATION q 4 H PRN lactated ringers infusion 5-30 mL/hr INTRAVENOUS CONTINUOUS magnesium sulfate in water 2 g in sterile water 50 ml 2 g INTRAVENOUS PRN metroNIDAZOLE 500 mg PREMIX piggyback (FLAGYL) 500 mg INTRAVENOUS q 8 H NaCl 0.9% 3-5 mL 3-5 mL INTRAVENOUS q 12 H octreotide 500 mcg in D5W 100 mL (SandoSTATIN) 50 mcg/hr INTRAVENOUS CONTINUOUS pantoprazole 40 mg injection (PROTONIX) 40 mg INTRAVENOUS BID AC (0600/1600) Parenteral Nutrition - Adult INTRAVENOUS ONCE TPN (2200 START) potassium chloride 20-80 mEq CUP 20-80 mEq ORAL/FEEDING TUBE PRN potassium chloride iv piggyback 20 mEq/100 mL 20 mEq INTRAVENOUS PRN propofol infusion (DIPRIVAN) 5-60 mcg/kg/min INTRAVENOUS CONTINUOUS sodium glycerophosphate 15 mmol in D5W 250 mL (GLYCOPHOS) 15 mmol INTRAVENOUS PRN sodium glycerophosphate 30 mmol in D5W 250 mL (GLYCOPHOS) 30 mmol INTRAVENOUS PRN sodium glycerophosphate 45 mmol in D5W 250 mL (GLYCOPHOS) 45 mmol INTRAVENOUS PRN PHYSICAL EXAM: BP 135/60 Pulse 81 Temp (!) 38.4 ?C (101.1 ?F) (Oral) Resp 20 Ht 177.8 cm (5' 10) Wt 108 kg (238 lb 1.6 oz) SpO2 95% BMI 34.16 kg/m? Lines: [place] 04/14, Nontunnelled triple lumen 04/14 in R neck, ET tube 04/14, NG in L nare 04/14, L radial A-line 04/14 ?GEN: Patient is critically ill appearing. Sedated. SKIN: No lesions noted. EYES: PERRLA NOSE: Left Nare Ng tube in place. NECK: R nontunnelled triple lumen catheter with no overlying erythema, swelling or warmth. LUNGS: clear to auscultation, no wheezes, or crackles. HEART: ?Regular rate/rhythm, normal heart sounds, and no murmurs. ABDOMEN: Soft, epigastric tenderness, BS present. EXTREMITIES: Edema of hands b/l, no LE edema. NEURO: Sedated, not following commands. Labs: 9.1>24<74 INR: normal Alb: 2.1 LFTs normal BMP: Recent Labs 04/20/18 0134 04/19/18 0330 04/18/18 0002 04/17/18 0019 04/16/18 0031 04/15/18 0345 04/14/18 2120 04/14/18 1700 GLUC 219* 159* 202* 229* 238* 359* 445* 545* NA 143 143 142 137 139 136 140 136 K 4.1 4.0 3.6* 4.1 4.0 4.8 5.0 6.6* CHLOR 111* 111* 109* 106* 103 98 100 102 CO2 20* 20* 21* 21* 23 23 24 22 ANION 12 12 12 10 13 15 16 19* BUN 57* 58* 63* 69* 67* 74* 76* 73* CREAT 1.50* 1.47* 1.80* 2.34* 1.97* 2.47* 2.71* 2.66* Micro and radiology personally reviewed 04/14/18: Quantiferon gold testing negative for TB 04/14/18: Blood cultures 04/19 no growth 04/14/18: MSSA nasal swab positive 04/17/18: MSSA nasal swab positive 04/17/18: Blood cultures 2/[address] Chest 04/17/18: IMPRESSION: 1. ?NEW MULTIFOCAL CONSOLIDATIVE/GROUNDGLASS OPACITIES PREDOMINANTLY LEFT UPPER LOBE AND LINGULA, MAY REPRESENT MULTIFOCAL PNEUMONIA/ASPIRATION PNEUMONITIS, HEMORRHAGE OR ASYMMETRIC EDEMA. ?RADIOGRAPHIC FOLLOW-UP IS RECOMMENDED.. 2. ?BILATERAL LOWER LOBE AIRSPACE OPACITIES WITH VOLUME LOSS, RIGHT GREATER THAN LEFT, MOST LIKELY ATELECTASIS WITH POSSIBLE SUPERIMPOSED INFECTIOUS PROCESS. 3. ?LIMITED EVALUATION OF PREVIOUSLY SEEN MID ESOPHAGEAL CONTRAST EXTRAVASATION/TEAR. ?SMALL FOCI OF RIGHT-SIDED PNEUMOMEDIASTINUM, NOT SIGNIFICANTLY CHANGED. ?SMALL FOCI OF PNEUMOMEDIASTINUM HAVE DEVELOPED SUPERIORLY. ?THESE COULD BE FROM RECENT INTERVENTION. 4. SMALL BILATERAL PLEURAL COLLECTIONS HAVE SLIGHTLY INCREASED COMPARED TO PRIOR EXAM. ?THE AIR COMPONENTS OF THE RIGHT PLEURAL COLLECTION ARE NEW SINCE PREVIOUS EXAM, LIKELY RELATED TO ?INTERVAL PLACEMENT OF RIGHT APICAL CHEST TUBE. CXR 04/19/18: IMPRESSION: Lines, tubes, and devices: ?The endotracheal tube ends in the thoracic trachea. The nasogastric/orogastric tube can be followed as far as the stomach. ?The right thoracostomy tube is unchanged. ?The right internal jugular venous catheter ends in the superior vena cava. Lungs and pleura: ?Small right pleural effusion with associated atelectasis is present. ?Superimposed aspiration/pneumonia cannot be excluded. ?Mild left basilar atelectasis is seen. ?No large pneumothorax is seen. Cardiomediastinal silhouette: ?Stable cardiomediastinal silhouette. IMPRESSION / PLAN 52 yo M with a h/o cirrhosis, EtoH related, CKD, COPD and reported + PPD in the past. Currently no clinical or imaging evidence of active pulmonary TB. Presenting with hemorrhagic shock secondary to hematemesis/esophageal tear c/b pneumomediastinum; no surgical intervention planned at this time. Progressively worsening fever curve with more extensive right lung opacities today. ? Plan: - check CBC with differential today - repeat two sets of blood cultures today - attempt respiratory sample (sputum, mini-BAL) for gram stain and routine cultures - continue cefepime, metronidazole, fluconazole as ordered - add back vancomycin for gram-positive coverage and new MSSA colonization Discussed with attending and primary team, Perla Delgado PGY4 [facility] STAFF PHYSICIAN NOTE OF PERSONAL INVOLVEMENT IN CARE Events reviewed. Patient examined. Findings as outlined in the fellow's note above. Jang elements verified. ?Relevant lab data, microbiology and imaging data reviewed. Relevant images personally reviewed. Agree with assessment and plan as outlined in the fellow's note above. I was physically present for the critical portions of the service provided by the ID team. The management plan reflects my input. ?Marguerite Li MD Staff, Department of Infectious Disease Pager: [phone] Previous Version Haydee Graf RN, RN 04/20/2018 8:48 AM Signed Nursing Progress: Topic: RESTRAINT NON-VIOLENT PATIENT NAME: Lazaro Villafana PATIENT LOCATION: [place] [address] The patient demonstrates Attempting to Remove Medical Devices Vital to Medical Stability as evidenced by the following behaviors attempting to remove ETT which pose an imminent danger to self or others. The following interventions were attempted but were not effective in protecting the patient's safety: Alarms, Bed in Low/Locked Position Next, a comprehensive assessment was performed and warranted placing the patient in Soft Bilateral Wrists, the least restrictive restraint needed to protect the patient's safety. Ongoing safety assessments and evaluation for earliest removal of restraints will be performed. DATE: April 20, 2018 TIME: 8:[address] [facility] 04/20/2018 12:24 PM Signed NUTRITION SUPPORT TEAM PROGRESS NOTE SERVICE DATE: 04/20/2018 SERVICE TIME: 1107 RECOMMENDED DIAGNOSIS: MILD PROTEIN-CALORIE MALNUTRITION per Registered Dietitian on 04/17/2018 NUTRITION CARE PLAN Intervention: 1. Continue TPN with incr volume/free water, reduce protein - PN to provide 100gms 15% AA, 600 dextrose calories, 1.8L at 75ml/hr - orders pended with added MgSO4, incr KPhos, incr K+ acetate, MVI, MTE, 20-35u insulin (1:5 ratio), 100mg thiamine - adjust PN calories with propofol infusion. PN meeting minimum calories with current propofol rate 2. Defer 250ml IVPB lipids 20% fat emulsion with propofol Monitor and Evaluation: Goal: Meet >75% of estimated needs Monitor fluid/electrolyte balance Monitor labs, I/Os, vital signs, weight Discharge Nutrition Recommendations: To be determined Per HPI: 52 year old male with a history of type II DM, poorly controlled HTN, CKD, COPD, tobacco smoker 2-3 PPD, alcohol use disorder with recent diagnosis of cirrhosis was transferred from [facility] with an esophageal perforation seen on EGD. Patient initially presented with hematemesis and melena with accompanying dizziness and shortness of breath. Transferred to [facility] SICU on 04/14 for further management. s/p EGD 04/15 which showed a deep esophageal tear. Plan for a minimum of NPO x 2 weeks. 04/16 Right chest tube placed for effusion. Interval History: Plan to increase PN volume tonight. NG with 450ml output past 24hours. Plan to stop octreotide tomorrow. Pt is febrile with Tmax: 38.9 Resp: intubated I/O's: Intake/Output Summary (Last 24 hours) at 04/20/18 1207 Last data filed at 04/20/18 1100 Gross per 24 hour Intake 3315 ml Output 2445 ml Net 870 ml overall +8079.2 Abdomen: not assessed Last BM: 04/18 Enteral access: n/a; NG to low suction with 450ml output past 24 hours Parenteral access: right IJ TLC placed 04/14 Labs: hyperchloremia, hypocapnia, PO4 improved/suboptimal, lactate 1.1, ionized calcium 1.20 Blood Gases: pH 7.38, pCO2 36, HCO3 21 Blood sugars: 231, 203 Cultures: blood cx x 2 no growth x 3 days Imaging: n/a Nutritional Intake: Intake History BI DATA ARCHITECT: Unable to determine Current intake: 04/17: Average 5 day intakes meeting <50% of estimated energy need.s started on PN 04/17 due to esophageal tear, plan for NPO x 2 weeks 04/18: currently goal kcals, PN 940 kcals, 110 g pro + propofol 765 kcals/day 04/20: TPN wirh orders 04/17 - 04/19 to provide 110gms protein and 940 claories + additional calories from propofol (04/19 provided 626 calories) Current Diet Order DIET NPO Lines and Drains: Central Line Triple Lumen 04/14/182318 Non-tunneled Right Neck (Active) Peripheral 04/14/182343 Left Antecubital 18 Gauge (Active) GI Feed/Drain 04/14/18 231 Nasogastric Left Naris 16 Fr (Active) Indwelling Urinary Catheter 04/14/182113 Admission to Hospital [facility] (Active) Chest Tube 04/16/18 2100 Right 28 Fr (Active) Height: 177.8 cm (5' 10) Admission Weight: 106.1 kg (233 lb 14.5 oz) Current Weight: 108 kg (238 lb 1.6 oz) Body mass index is 34.16 kg/m?. Usual body weight Unable to determine No weight history available. Estimated nutrition goals: [place] body weight: 75.4 kg Dosing weight: 106 kg (04/14; BMI 33.5kg/m2) Calorie needs 7202-6344 kilocalories determined by = 15-20 kcals/kg Dosing weight Protein needs: 90 - 121 grams determined by 1.2 -1.6g/kg ideal weight - due to CKD Temp (24hrs), Av.3 ?C (100.9 ?F), Min:37 ?C (98.6 ?F), Max:38.9 ?C (102 ?F) Recent Labs 04/20/18 0134 GLUC 219* BUN 57* CREAT 1.50* NA 143 K 4.1 CHLOR 111* CO2 20* ALB 2.1* P 2.7 HB 8.0* HCT 24.9* WBC 9.01 MG 2.0 Vitamin and Mineral Labs in the past year:No results for input(s): CHROMIUM, COPPER, MANGANESE, SELENIUM, VITAMINA, VITB1, VITB2, VITB6, B12, METHYLMAL, VITD25, VITAMINE, VITAK, ZINC, TIBC, FE, JOHANNY in the last 8784 hours. MNT Billing Type: Re-assess/15 min 2 units SIGNATURE: Sari Weston RD [facility] PATIENT NAME: Lazaro Villafana DATE: April 20, 2018 TIME: 12:03 PM PAGER: [phone] Rai Kramer RN, RN 04/20/2018 12:49 PM Signed CARE MANAGEMENT PROGRESS NOTE SERVICE DATE: 04/20/2018 SERVICE TIME: 12:45 PM LOS: 6 days Patient remains in SICU intubated and sedated, NPO on TPN and Octreotide as well as antibiotics per ID. Continues with NG and right chest tube. Temp max to 38.9, per ID for add'l blood cultures, repeat CBC/diff and sputum. Per Surgery no surgical intervention planned for the esophageal lacerating that appears contained. Per CTS patient would likely benefit from re-scoping some time next week, would coordinate this with GI to see if they agree. Laser Specialist to follow for discharge planning pending POC and medical stability. Needs Prior to Discharge: To Be Determined SIGNATURE: Rai Kramer RN PATIENT NAME: Lazaro Villafana DATE: April 20, 2018 TIME: 12:45 PM PAGER/CONTACT #: [phone] EARNESTINE ZACARIAS 04/20/2018 12:59 PM Signed PHARMACY VANCOMYCIN DOSING NOTE Patient Name: Lazaro Villafana Admission Date: 04/14/2018 Date of Consult: 04/20/2018 Time of Consult: 12:58 PM Indication: Pneumonia Goal Range: 10-20 mcg/mL RECOMMENDATIONS/PLAN: Pharmacy consulted for vancomycin dosing for Lazaro Villafana, a 52 year old, male who is being treated with vancomycin for pneumonia. 1. Patient is currently ordered Vancomycin 1.5 g IV q12h. Today is day 1 of therapy. 2. No vancomycin level has been drawn for this dosing regimen. 3. The present dose of vancomycin is the recommended dosage for this patient at this time. Continue therapy as prescribed. 4. The next vancomycin level will be ordered for 04/24 unless clinically indicated sooner. (Pharmacy will order) We will follow patient renal function, vancomycin levels and doses with you during the course of therapy. Additional recommendations will appear in follow up notes. If you have any questions, please contact Bette Niño PharmD at [phone]. Age: [age] year old Allergies: ALLERGIES Allergen Reactions - Ciprofloxacin Unknown - Penicillin Unknown Tolerating cefepime Last 3 Encounter Wt Readings: Date: Wt: 04/14/2018 108 kg (238 lb 1.6 oz) 04/14/2018 97 kg (213 lb 13.5 oz) Last 1 Encounter Ht Readings: Date: Ht: 04/14/2018 177.8 cm (5' 10) CrCl: 70 mL/min Temp (24hrs), Av.1 ?C (100.6 ?F), Min:37 ?C (98.6 ?F), Max:38.9 ?C (102 ?F) - Current Temp: 37.4 ?C (99.3 ?F) Labs BUN (mg/dL) Date Value 04/20/2018 57 (H) 04/19/2018 58 (H) 04/18/2018 63 (H) Creatinine (mg/dL) Date Value 04/20/2018 1.50 (H) 04/19/2018 1.47 (H) 04/18/2018 1.80 (H) WBC (k/uL) Date Value 04/20/2018 9.01 04/19/2018 6.66 04/18/2018 6.79 Vancomycin Levels: No results found for: LIZ Niño PharmD Cardiology Clinical Specialist Nima Grimes MD 04/20/2018 1:58 PM Signed SURGICAL INTENSIVE CARE UNIT PROGRESS NOTE SERVICE DATE: April 20, 2018 SERVICE TIME: 1:03pm Subjective Mr.?Howard Villafana is a 52-year-old male with PMHx type II DM, poorly controlled HTN, CKD, COPD, tobacco smoker 2-3 PPD, alcohol use disorder with recent diagnosis of cirrhosis was transferred from [facility] with an esophageal perforation seen on EGD. Patient initially presented with hematemesis and melena with accompanying dizziness and shortness of breath. Now being admitted to the SICU for surgical evaluation and hemodynamic monitoring. Objective VITAL SIGNS Temp: 37.4 ?C (99.3 ?F) Pulse: 80 BP: 114/62 MAP Non Invasive (Mean Arterial Pressure): 81 Resp: 19 SpO2: 99 % Not applicable Current Facility-Administered Medications: acetaminophen 650 mg suppository (TYLENOL) 650 mg RECTAL q 4 H PRN albuterol 2.5 mg/0.5 mL 2.5 mg nebulizer solution (PROVENTIL) 2.5 mg INHALATION q 4 H PRN cefepime 2 g in D5W 100 mL MB+ (MAXIPIME) 2 g INTRAVENOUS q 8 HR Chlorhexidine Gluconate 0.12 % 15 mL (PERIDEX) 15 mL ORAL QID dextrose 40 % 15 g 15 g ORAL PRN Or glucagon 1 mg injection (GLUCAGEN) 1 mg INTRAMUSCULAR PRN Or dextrose 50 % 12.5 g injection 12.5 g INTRAVENOUS PRN fentaNYL 50 mcg/mL 25-50 mcg injection (SUBLIMAZE) 25-50 mcg INTRAVENOUS q 1 H PRN fluconazole 200 mg in NaCl (iso-osmotic) 100 mL (DIFLUCAN) 200 mg INTRAVENOUS DAILY heparin 5,000 Units injection 5,000 Units SUBCUTANEOUS q 12 H insulin glargine 18 Units pen (long acting) (LANTUS SOLOSTAR, BASAGLAR KWIKPEN) 18 Units SUBCUTANEOUS AT BEDTIME insulin lispro injection (rapid acting) (HumaLOG) SUBCUTANEOUS q 6 H ipratropium-albuterol 3 mL nebulizer solution (DUONEB) 3 mL INHALATION q 4 H PRN lactated ringers infusion 5-30 mL/hr INTRAVENOUS CONTINUOUS magnesium sulfate in water 2 g in sterile water 50 ml 2 g INTRAVENOUS PRN metroNIDAZOLE 500 mg PREMIX piggyback (FLAGYL) 500 mg INTRAVENOUS q 8 H NaCl 0.9% 3-5 mL 3-5 mL INTRAVENOUS q 12 H octreotide 500 mcg in D5W 100 mL (SandoSTATIN) 50 mcg/hr INTRAVENOUS CONTINUOUS pantoprazole 40 mg injection (PROTONIX) 40 mg INTRAVENOUS BID AC (0600/1600) Parenteral Nutrition - Adult INTRAVENOUS ONCE TPN (2200 START) potassium chloride iv piggyback 20 mEq/100 mL 20 mEq INTRAVENOUS PRN Or potassium chloride 20-80 mEq CUP 20-80 mEq ORAL/FEEDING TUBE PRN propofol infusion (DIPRIVAN) 5-60 mcg/kg/min INTRAVENOUS CONTINUOUS sodium glycerophosphate 15 mmol in D5W 250 mL (GLYCOPHOS) 15 mmol INTRAVENOUS PRN Or sodium glycerophosphate 30 mmol in D5W 250 mL (GLYCOPHOS) 30 mmol INTRAVENOUS PRN Or sodium glycerophosphate 45 mmol in D5W 250 mL (GLYCOPHOS) 45 mmol INTRAVENOUS PRN vancomycin 1.5 g in D5W 250 mL (VANCOCIN) 1.5 g INTRAVENOUS q 12 HR vancomycin dosing and monitoring per pharmacy OTHER As Directed Cardiovascular: Regular rhythm Abdomen: Soft and Nontender Extremities: Mild pedal edema Neuro: Sedated Intake/Output Summary (Last 24 hours) at 04/20/18 1303 Last data filed at 04/20/18 1200 Gross per 24 hour Intake 3315 ml Output 2510 ml Net 805 ml Current Weight: Weight: 108 kg (238 lb 1.6 oz) Admission Weight: Weight: 106.1 kg (233 lb 14.5 oz) RESPIRATORY Mechanical Ventilation: Vent Mode: PSV Freq (bpm): 18 PS (cmH20): 8 PEEP / CPAP (cmH20): 10 FIO2 (%): 40 Recent Labs 04/20/18 0144 04/19/18 0829 PH 7.38 7.41 PO2 73* 110* PCO2 36 34 BE NEG 4 NEG 2 HCO3 21* 21* LACT 1.1 0.9 CXR Findings: There is a partially loculated medium-size right pleural effusion with adjacent airspace consolidation, either aspiration/pneumonia. ?Patchy opacities are in the left lung. ?Findings are essentially stable from the prior exam. ?No large pneumothorax is identified. INFUSION(S): Propofol Patient Lines Assessed: Lines, Drains, and Airways Line Arterial Line 04/14/182319 Arterial Line Left Radial 5 days Central Line Triple Lumen 04/14/18 231 Non-tunneled Right Neck 5 days Peripheral 04/14/18 2344 Left Antecubital 18 Gauge 5 days Drain GI Feed/Drain 04/14/182318 Nasogastric Left Naris 16 Fr 5 days Indwelling Urinary Catheter 04/14/182113 Admission to [facility] 5 days Chest Tube 04/16/18 2100 Right 28 Fr 3 days Airway Airway Endotracheal Tube 04/14/182114 5 days Diagnostic tests reviewed for today's visit: Most recent labs and imaging results. Assessment/Plan Neuro:? -- tachypnea requiring intubation at OSH -- On propofol gtt. -- per , he previously drank 3 cider ales daily up until 1 month ago, around when he learned about his cirrhosis diagnosis. She notes that he had 2 drinks on 04/13. ? ? CV:? -- Goal MAP >65 - CXR this am - partially loculated medium-size right pleural effusion with adjacent airspace consolidation, stable from prior exam. - Repeat CXR after RT treatment - lactate 1.1 ? Pulm:??Hx of COPD. Intubated. Vent Mode: Vent Mode: PSV Freq (bpm): 18 PS (cmH20): 8 PEEP / CPAP (cmH20): 10 FIO2 (%): 40 --Continue home bronchodilators --duonebs prn -- Chest tube output 150cc over 24 hrs - will maintain wall suction. Continue intubation ? Renal:??(baseline Cr ~1.2 from 02/2018) -- LIANE; most likely pre-renal.?Cr 1.5 , downtrending --Monitor Cr and I/Os --[facility] ? GI:?Likely partial thickness esophageal perforation. Presented from OSH on 04/14 with hematemesis, melena dizziness and SOB. EtOH cirrhosis with portal HTN, grade 2 esophageal varices -- EGD at OSH showed no mediastinal air -- 04/15 CT chest/abd/pel - mid distal esophageal tear 5.4cm from T6-T8. Small amount of enteric contrast extravasation and pneumomediastinum. - 04/15 EGD by GI - deep esophageal tear, not amenable to esophageal stenting --Pantoprazole for GI ppx and ocreotide gtt for at least 7 days (started 04/14) per GI --NPO, TPN - TPN adjusted for more volume due to hypernatremia --NGT positioned by GI - DO NOT MANIPULATE BLINDLY -- thoracic does not recommend open surgical intervention. Perforation appears to be contained. Likely iatrogenic tear from prior tube placement. -- potential mediastinitis ? Heme:? -- Hgb 8.0 -- thrombocytopenia. Will watch for signs of bleeding and need?for further transfusion --Transfuse to keep Hgb >7 ? Fluid/Electrolyte/Nutrition: --NPO --Replete lytes as one time dosing -- TPN ? Endo:?Hx of IDDM, HgbA1c 8.2. - BG goal 130-180 - Started lantus yesterday --Continue insulin gtt ? ID:?Esohageal tear and perforation. aztreonam and flagyl at OSH -Intermittent low grade fevers - MSSA PCR positive - MRSA PCR negative -Started Vancomycin per ID recs to cover for GPC -WBC 9.01 -BCx, UA - 04/17 ? -Concern for mediastinitisis. ? Cultures/labs: - 04/14 blood culture - NGTD - 04/17 blood culture - NGTD - 04/17 UA - no indication of UTI - 04/14 TB blood screen - negative - 04/14 procalcitonin 2.67 ? - empiric coverage with cefepime, fluconazole, flagyl, vanco - end date in 1 month - allergy consult for skin test ? - ID following, appreciate recs ? PPX:? - GI ppx - pantoprazole - VTE ppx - held due to thrommbocytopenia ? Medication and Non-Pharmacologic VTE Prophylaxis/Anticoagulants Anticoagulant AND Antiplatelet Medications Start Dose Route Frequency Ordered Stop 04/20/18 1300 heparin 5,000 Units injection 5,000 Units SUBCUTANEOUS EVERY 12 HOURS 04/20/18 1249 -- 04/14/18 2100 pneumatic compression stockings (nc,ut) 04/14/18 2100 activity - mobilize patient (nc,ut) VTE Prophylaxis: VTE prophylaxis appropriate SIGNATURE: Nima Grimes MD, PGY-1 resident PATIENT NAME: Lazaro Villafana DATE: April 20, 2018 TIME: 1:03 PM PAGER/CONTACT #: Previous Version Aidan Alas MD 04/20/2018 3:21 PM Addendum ICU STAFF -- AIDAN ALAS REASON FOR ICU ADMISSION AND PERTINENT RECENT HISTORY Critically ill 52 year old male presented to OSH on 04/14/18 with hematemesis which was temporized with a Sengstaken-Tony tube. A subsequent EGD showed esophageal varices without active bleeding, old blood in stomach, normal duodenum, and a large clot over a esophageal perforation/tear [linear, partial thickness esophageal laceration from 31-37 cm from incisors]. He was transferred to [facility] on 04/14/18 for further management. Thoracic surgery is following the patient and is planning conservative management given that CT scan shows partial thickness esophageal tear without active mediastinal or pleural extravasation. Patient is s/p EGD on 04/15/18 which showed evidence of hematin and blood clots in both esophagus and stomach; deep esophageal tear previously described noted ~5 cm in length. Defer placement of esophageal stent. Thoracic surgery placed R sided CT on 04/17 given changing ventilator requirements. There was approximately 400 cc of serosanguinous fluid drained with significant improvement in oxygenation requirements. There was not significant change in the imaging. Notable PMHx: type II DM, poorly controlled HTN, CKD, COPD, tobacco smoker 2-3 PPD, alcohol use disorder with a recent diagnosis of cirrhosis, reported + PPD in the past but currently no clinical or imaging evidence of active pulmonary TB Subjective: fevers overnight, intermittent agitation Objective: Physical exam: BP 114/62 Pulse 80 Temp 37.4 ?C (99.3 ?F) (Oral) Resp 19 Ht 177.8 cm (5' 10) Wt 108 kg (238 lb 1.6 oz) SpO2 99% BMI 34.16 kg/m? Weight change: -0.7 kg (-1 lb 8.7 oz) 1. HEENT: normocephalic 2. Neck: midline trachea 3. Lungs: bilateral chest rise; R CT in place (no leak noted) 4. Heart: S1:+ S2:+ 5. Abdomen: soft 6. Extremities: 1+ edema; 2+ edema RUE 7. Skin: WWP 8. Neurological: sedated on propofol Mechanical ventilation: Mode: PSV FiO2: 40 Vt(ml): 593 PEEP(cm): 10 Lab: CBC, Coags, BMP, Mg, Phos Recent Labs 04/20/1814304/20/1813304/19/1882804/19/1841004/19/18 0330 04/18/18 0002 WBC -- 9.01 -- -- 6.66 -- 6.79 HB -- 8.0* -- -- 8.2* -- 8.1* HCT -- 24.9* -- -- 25.2* -- 24.1* PLT -- 74* -- -- 51* -- 49* INR -- -- -- -- -- -- 1.3 APTT -- -- -- -- -- -- 31.7 NA -- 143 -- -- 143 -- 142 K -- 4.1 -- -- 4.0 -- 3.6* CHLOR -- 111* -- -- 111* -- 109* CO2 -- 20* -- -- 20* -- 21* BUN -- 57* -- -- 58* -- 63* CREAT -- 1.50* -- -- 1.47* -- 1.80* GLUC -- 219* -- -- 159* -- 202* IC 1.20 -- 1.13 1.15 -- < > -- CA -- 7.7* -- -- 7.4* -- 7.5* MG -- 2.0 -- -- 1.9 -- 2.2 P -- 2.7 -- -- 2.0* -- 2.5* < > = values in this interval not displayed. ABGs Recent Labs 04/20/1814304/19/1882804/19/18410 PH 7.38 7.41 7.45 PCO2 36 34 33* PO2 73* 110* 82* BE NEG 4 NEG 2 NEG 1 HCO3 21* 21* 22 CO2CT 22 22 23 O2HB 93* 97 94* COHB 1.7 1.3 0.9 MHGB 0.0* 0.6 1.0 TEMP 37.0 37.0 37.0 PHTC 7.38 7.41 7.45 PCO2T 36 34 33* PO2T 73 110 82 CXR: pleural effusion, consolidation noted on the right Fluids: Intake/Output Summary (Last 24 hours) at 04/20/18 0659 Last data filed at 04/20/18 0600 Gross per 24 hour Intake 3315 ml Output 2440 ml Net 875 ml Daily Assessments: Restraints- yes Central Access- yes Sedation interruption- yes [facility] catheter required for clinical management- yes Assessment: Critically ill Patient Active Hospital Problem List: Hyperglycemia (04/14/2018) Alcoholic cirrhosis (HCC) (04/14/2018) COPD (chronic obstructive pulmonary disease) (HCC) (04/14/2018) Esophageal perforation (04/14/2018) Mild protein-calorie malnutrition (HCC) (04/17/2018) Hypernatremia (04/20/2018) Secondary thrombocytopenia (04/20/2018) Acute post-operative pain (04/20/2018) Acute respiratory insufficiency (04/20/2018) Consolidation of right lower lobe of lung (HCC) (04/20/2018) Secondary esophageal varices without bleeding (HCC) (04/20/2018) Tobacco abuse (04/20/2018) Acute blood loss anemia (04/20/2018) Mediastinitis (04/20/2018) Fever (04/20/2018) Leukocytosis (04/20/2018) Plan: ABx were broadened today per ID recommendations to include vancomycin. There is concern that with the increasing WBC and fever curve to broaden ABx. Repeat BCx will be obtained. We will send any sample for SCx we obtain from bronchoscopy today. Bronchoscopy is indicated given the degree of RLL collapse. There does not seem to be much improvement in the CXR post-chest tube placement. The tube is draining. There is still a significant need for ventilatory support. I have explained this to the via phone [phone]. There does not seem to be much evidence which correlates with ETOH withdrawal. His does not seem to suggest any ETOH abuse in the last 2-3 weeks. We will watch closely. HyperNa will be addressed with added free water in TPN. Hold SQH another day until PLT count shows an uptrend. RUE swelling noted - will order U/S to r/o DVT Prophylaxis: DVT: SCDs Stress gastritis: pantoprazole BID I have personally examined the patient today for an aggregate of 41 min of critical care time. I have examined the patient and reviewed lab data and x-rays. I have evaluated the hemodynamic and respiratory data, ECG, prescribed IV fluids, adjusted mechanical ventilation, assessed antibiotic therapy, prescribed nutritional and/or metabolic support. This care required my full attention and direct personal management in prevention of imminent clinical deterioration. Thank you for letting me follow this patient. SIGNATURE: Aidan Alas MD DATE: April 20, 2018 TIME: 1:53 PM Previous Version Haydee Graf RN, RN 04/20/2018 2:49 PM Signed Nursing Progress Note Patient Name: Lazaro Villafana Patient Location: 52 [id number]/G052-08 Daily Note: 1437: 20 mg rocuronium given, 50 mg propofol bolus given by Dr Alas SICU staff at bedside. 1440: scope in 1442: 50 mcg fentanyl given 1447: scope out This note was completed by: BLAYNE Anguiano MD 04/20/2018 3:26 PM Addendum BEDSIDE PROCEDURE NOTE BRONCHOSCOPY Date/Start Time: 04/20/2018 3:21 PM Performed by: MIGUEL ISIDRO (RES) Authorized by: AIDAN ALAS Consent/[place] Protocol Written Consent Obtained: Yes Sign In Communication: Completed Time Out completed: Team confirms correct patient, procedure, side/site, position (if applicable) and completion AND review of fire risk assessment/protocols (if appropriate) Affirmation of Time Out: Yes Sign Out Discussion: Yes Pre-procedure Details: Personnel directly involved with the procedure wore the appropriate PPE. PPE Used: Mask with eye shield and cap Medications: Muscle relaxant and sedation Muscle Relaxant (see MAR): Rocuronium Sedation (see MAR): Propofol Procedure Details: Type: Standard Indication: Atelectasis The bronchoscope was introduced via endotracheal tube. Maneuvers Performed: BAL BAL - Location: Right middle lobe and right lower lobe BAL - Instilled Volume (mL): 5 BAL - Returned Volume (mL): 5 BAL - Returned Fluid Description: Thin and cloudy Bronchoscopy Abnormal Findings: RLL and RML were easily collapsible on low suction. Post-procedure Details: Patient tolerated the procedure well with no immediate complications Estimated Blood Loss: None Specimens Sent: ID-BAL Comments: updated on results. Findings are consistent with this being an interstitial process, perhaps secondary to the mediastinitis. SIGNATURE: Aidan Alas MD PATIENT NAME: Lazaro Villafana DATE: April 20, 2018 TIME: 3:21 PM PAGER/CONTACT #: Resident performed the procedure. I was present for this procedure. This is exclusive of critical care time. Previous Version Ekaterina Zabala PT 04/20/2018 2:49 PM Signed PHYSICAL THERAPY MISSED VISIT SERVICE DATE: 04/20/2018 SERVICE TIME: 1448 to 1448 ROOM: [place] [id number] Attempted Evaluation. Patient not seen d/t bedside procedure (bronchoscopy) and d/t following minimal/no commands off sedation per power saw operator today. Will reattempt as medically able to participate with PT. SIGNATURE: Ekaterina Zabala PT PATIENT NAME: Lazaro Villafana DATE: April 20, 2018 TIME: 2:49 PM AMY LANG, OT/L 04/20/2018 5:28 PM Signed OCCUPATIONAL THERAPY MISSED VISIT SERVICE DATE: 04/20/2018 SERVICE TIME: 0912 to 0912 ROOM: [place] [address] Attempted Evaluation. Patient not seen due to Illness, sedated this AM. Will attempt again as schedule permits. SIGNATURE: AMY LANG OT/L PATIENT NAME: Lazaro Villafana DATE: April 20, 2018 TIME: 5:28 PM Villa Thomas MD 04/21/2018 6:48 AM Addendum GENERAL SURGERY PROGRESS NOTE ASSESSMENT AND PLAN 52 year old male with PMHx type II DM, poorly controlled HTN, CKD, COPD, tobacco smoker 2-3 PPD, alcohol use disorder with recent diagnosis of cirrhosis w/ esophageal varices who presents on transfer from OSH with hematemesis s/p EGD at OSH c/b esophageal laceration that appears to be contained; MELD > 20 - Continue strict NPO - No surgical intervention planned - Thoracic surgery following - possible repeat EGD - Continue supportive/SICU care - trend labs Plan to be discussed further with staff *After 6pm and on weekends please page general surgery director of early childhood education [phone]* SUBJECTIVE/INTERVAL EVENTS Remains febrile, no leukocytosis, adequate UOP, CXR w/ slight improvement in appearance of R-sided consolidation CT output 40 cc/24hrs NGT output 400 cc OBJECTIVE BP 115/61 Pulse 90 Temp (!) 38.3 ?C (100.9 ?F) (Oral) Resp 21 Ht 177.8 cm (5' 10) Wt 108 kg (238 lb 1.6 oz) SpO2 94% BMI 34.16 kg/m? Intake/Output Summary (Last 24 hours) at 04/20/18 0659 Last data filed at 04/20/18 0600 Gross per 24 hour Intake 3315 ml Output 2440 ml Net 875 ml General: sedated, ill appearing CV: RRR Pulm: ventilator Neck: no subQ emphysema/crepitus appreciated Abdomen: soft, non-distended Neuro: limited exam / sedation Labs/Imaging: CBC, BMP, MG, PHOS Recent Labs 04/21/18 0206 04/20/18 1338 04/20/18 0134 04/19/18 0330 04/18/18 0002 WBC 9.75 10.03 9.01 6.66 6.79 HB 7.7* 7.9* 8.0* 8.2* 8.1* HCT 24.5* 24.2* 24.9* 25.2* 24.1* PLT 82* 66* 74* 51* 49* NA 141 -- 143 143 142 K 4.2 -- 4.1 4.0 3.6* CHLOR 107* -- 111* 111* 109* CO2 21* -- 20* 20* 21* BUN 61* -- 57* 58* 63* CREAT 1.57* -- 1.50* 1.47* 1.80* GLUC 247* -- 219* 159* 202* CA 7.8* -- 7.7* 7.4* 7.5* MG 2.1 -- 2.0 1.9 2.2 P 2.4* -- 2.7 2.0* 2.5* Liver Function, Amylase, AND Lipase Recent Labs 04/21/18 0206 04/20/18 0144 04/20/18 0134 04/19/18 0829 04/19/18 0411 04/19/18 0330 04/19/18 0009 04/18/18 0002 TPROT 5.6* -- 5.1* -- -- 5.3* -- -- 5.5* ALB 2.2* -- 2.1* -- -- 2.1* -- -- 2.4* ALT 17 -- 14 -- -- 16 -- -- 16 AST 45* -- 37 -- -- 30 -- -- 30 ALKPHOS 65 -- 62 -- -- 56 -- -- 49 TBILI 0.8 -- 0.6 -- -- 0.6 -- -- 0.6 LACT -- 1.1 -- 0.9 1.0 -- 1.2 < > -- < > = values in this interval not displayed. Coags Recent Labs 04/18/18 0002 04/17/18 0019 04/16/18 0031 04/15/18 0500 04/15/18 0345 APTT 31.7 32.1 31.6 -- Unable to assay. Specimen improperly collected/handled. INR 1.3 1.3 1.4* 1.3 Unable to assay. Specimen improperly collected/handled. Active Hospital Problems Diagnosis Date Noted - Hypernatremia 04/20/2018 - Secondary thrombocytopenia 04/20/2018 - Acute post-operative pain 04/20/2018 - Acute respiratory insufficiency 04/20/2018 - Consolidation of right lower lobe of lung (HCC) 04/20/2018 - Secondary esophageal varices without bleeding (HCC) 04/20/2018 - Tobacco abuse 04/20/2018 - Acute blood loss anemia 04/20/2018 - Mediastinitis 04/20/2018 - Fever 04/20/2018 - Leukocytosis 04/20/2018 - Mild protein-calorie malnutrition (HCC) 04/17/2018 - Esophageal perforation 04/14/2018 - Alcoholic cirrhosis (HCC) 04/14/2018 - Hyperglycemia 04/14/2018 - COPD (chronic obstructive pulmonary disease) (HCC) 04/14/2018 Chronic Villa Thomas MD PGY-1, General Surgery Acute Care Surgery: [id number] Previous Version Francois Gann MD,PhD 04/21/2018 7:13 AM Signed [facility] CONSULT PROGRESS NOTE Lazaro Villafana [id number] PRIMARY SERVICE: HOSPITAL DAY: # 7 INTERVAL HISTORY No acute events overnight. Pt remains off pressors. CT output was 40. PHYSICAL EXAM BP 115/61 Pulse 90 Temp (!) 38.3 ?C (100.9 ?F) (Oral) Resp 21 Ht 177.8 cm (5' 10) Wt 108 kg (238 lb 1.6 oz) SpO2 94% BMI 34.16 kg/m? Intake/Output Summary (Last 24 hours) at 04/21/18 0532 Last data filed at 04/21/18 0400 Gross per 24 hour Intake 3606 ml Output 2430 ml Net 1176 ml Constitutional: intubated, sedated HEENT: intubated Resp: VENT FiO2 40, PEEP 10;?R chest tube in place and on suction, no air leak, sanguineous output Cardiovascular: Cardiac: RR Integumentary: Warm Musculoskeletal: No deformities Neurological/Psychiatric: intubated Additional systems reviewed: No additional systems reviewed DATA Recent Labs 04/21/18 0206 04/20/18 1338 04/20/18 0134 WBC 9.75 10.03 9.01 HB 7.7* 7.9* 8.0* HCT 24.5* 24.2* 24.9* PLT 82* 66* 74* Recent Labs 04/21/18 0206 04/20/18 0134 04/19/18 0330 NA 141 143 143 K 4.2 4.1 4.0 CO2 21* 20* 20* BUN 61* 57* 58* CREAT 1.57* 1.50* 1.47* GLUC 247* 219* 159* MG 2.1 2.0 1.9 IMAGING I personally reviewed: CXR ASSESSMENT AND PLAN 52 year old male with multiple medical comorbidities now with likely partial thickness esophageal perforation, putatively from S-B tube placement at OSH. It is unlikely that this is the etiology of his massive hemoptysis, reportedly there were multiple varices that, in the background of cirrhosis is the likely etiology of his bleed. While he is requiring high doses of vasopressors, it is unlikely that the source of his shock is purely from his esophageal perforation given his lack of pleural effusion or free flowing contrast. ?04/15 EGD showed 5cm esophageal laceration without active bleeding. 04/16 Right chest tube placed for effusion. ? Plan - STRICT NPO for at least 2 weeks - continue TPN for the time being - patient would likely benefit from re-scoping some time next week, would coordinate this with GI to see if they agree; at that point most appropriate feeding options could be discussed - Do NOT manipulate NGT blindly - no acute surgical intervention indicated at this point Francois Gann MD,PhD Pager [phone] 04/21/2018 5:32 AM Leena Li MD 04/21/2018 3:26 PM Signed INFECTIOUS DISEASES PROGRESS NOTE Patient Name: Lazaro Villafana Account #: Data Unavailable Admission Date: 04/14/2018 Date of Evaluation: 04/21/2018 Time of Evaluation: 10:20 AM INTERVAL HPI: No acute events overnight. Off pressors. Minimal oxygen requirement. Ongoing known mediastinitis, no surgical intervention planned at this time. Day 7 cefepime, fluconazole, metronidazole; day 2 vancomycin. On TPN for nutrition, project 2 weeks of NPO status until esophageal perforation may have healed; plans for re-scoping next week with GI. Tracheal aspirate, blood cultures collected 04/20/18. Febrile to 102.2F overnight, stable leukocytosis. Received tylenol. MEDICATIONS: Current hospital medications: Parenteral Nutrition - Adult INTRAVENOUS ONCE TPN (2200 START) vancomycin 1.5 g in D5W 250 mL (VANCOCIN) 1.5 g INTRAVENOUS q 12 HR vancomycin dosing and monitoring per pharmacy OTHER As Directed insulin regular human injection (short acting) (NovoLIN R,HumuLIN R) SUBCUTANEOUS q 6 H potassium chloride iv piggyback 20 mEq/100 mL 20 mEq INTRAVENOUS PRN potassium chloride 20-80 mEq CUP 20-80 mEq ORAL/FEEDING TUBE PRN cefepime 2 g in D5W 100 mL MB+ (MAXIPIME) 2 g INTRAVENOUS q 8 HR magnesium sulfate in water 2 g in sterile water 50 ml 2 g INTRAVENOUS PRN sodium glycerophosphate 15 mmol in D5W 250 mL (GLYCOPHOS) 15 mmol INTRAVENOUS PRN sodium glycerophosphate 30 mmol in D5W 250 mL (GLYCOPHOS) 30 mmol INTRAVENOUS PRN sodium glycerophosphate 45 mmol in D5W 250 mL (GLYCOPHOS) 45 mmol INTRAVENOUS PRN insulin glargine 18 Units pen (long acting) (LANTUS SOLOSTAR, BASAGLAR KWIKPEN) 18 Units SUBCUTANEOUS AT BEDTIME dextrose 40 % 15 g 15 g ORAL PRN glucagon 1 mg injection (GLUCAGEN) 1 mg INTRAMUSCULAR PRN dextrose 50 % 12.5 g injection 12.5 g INTRAVENOUS PRN octreotide 500 mcg in D5W 100 mL (SandoSTATIN) 50 mcg/hr INTRAVENOUS CONTINUOUS acetaminophen 650 mg suppository (TYLENOL) 650 mg RECTAL q 4 H PRN propofol infusion (DIPRIVAN) 5-60 mcg/kg/min INTRAVENOUS CONTINUOUS lactated ringers infusion 5-30 mL/hr INTRAVENOUS CONTINUOUS NaCl 0.9% 3-5 mL 3-5 mL INTRAVENOUS q 12 H fentaNYL 50 mcg/mL 25-50 mcg injection (SUBLIMAZE) 25-50 mcg INTRAVENOUS q 1 H PRN Chlorhexidine Gluconate 0.12 % 15 mL (PERIDEX) 15 mL ORAL QID metroNIDAZOLE 500 mg PREMIX piggyback (FLAGYL) 500 mg INTRAVENOUS q 8 H ipratropium-albuterol 3 mL nebulizer solution (DUONEB) 3 mL INHALATION q 4 H PRN albuterol 2.5 mg/0.5 mL 2.5 mg nebulizer solution (PROVENTIL) 2.5 mg INHALATION q 4 H PRN pantoprazole 40 mg injection (PROTONIX) 40 mg INTRAVENOUS BID AC (0600/1600) fluconazole 200 mg in NaCl (iso-osmotic) 100 mL (DIFLUCAN) 200 mg INTRAVENOUS DAILY PHYSICAL EXAM: BP 132/60 Pulse 96 Temp (!) 38.2 ?C (100.7 ?F) (Oral) Resp 19 Ht 177.8 cm (5' 10) Wt 107.8 kg (237 lb 10.5 oz) SpO2 95% BMI 34.10 kg/m? Lines: Mcclain 04/14, Nontunnelled triple lumen 04/14 in R neck, ET tube 04/14, NG in L nare 04/14, L radial A-line 04/14 ?GEN: Patient is critically ill appearing. Sedated. SKIN: No lesions noted. EYES: PERRLA NOSE: Left Nare Ng tube in place. NECK: R nontunnelled triple lumen catheter with no overlying erythema, swelling or warmth. LUNGS: clear to auscultation, no wheezes, or crackles. HEART: ?Regular rate/rhythm, normal heart sounds, and no murmurs. ABDOMEN: Soft, epigastric tenderness, BS present. EXTREMITIES: Edema of hands b/l, no LE edema. NEURO: Sedated, not following commands. +1.3L in last 24 hours Labs: WBC 9.75, Hgb 7.7, Plt 82, Cr 1.57 BMP: Recent Labs 04/21/18 0206 04/20/18 0134 04/19/18 0330 04/18/18 0002 04/17/18 0019 04/16/18 0031 04/15/18 0345 04/14/18 2120 GLUC 247* 219* 159* 202* 229* 238* 359* 445* NA 141 143 143 142 137 139 136 140 K 4.2 4.1 4.0 3.6* 4.1 4.0 4.8 5.0 CHLOR 107* 111* 111* 109* 106* 103 98 100 CO2 21* 20* 20* 21* 21* 23 23 24 ANION 13 12 12 12 10 13 15 16 BUN 61* 57* 58* 63* 69* 67* 74* 76* CREAT 1.57* 1.50* 1.47* 1.80* 2.34* 1.97* 2.47* 2.71* Micro and radiology personally reviewed 04/14/18: Quantiferon gold testing negative for TB 04/14/18: Blood cultures 04/19 no growth 04/14/18: MSSA nasal swab positive 04/17/18: MSSA nasal swab positive 04/17/18: Blood cultures 2/2 no growth 04/20/18: Blood cultures 2/2 no growth 04/20/18: Tracheal aspirate cultures no organisms on gram stain so far CT Chest 04/17/18: IMPRESSION: 1. ?NEW MULTIFOCAL CONSOLIDATIVE/GROUNDGLASS OPACITIES PREDOMINANTLY LEFT UPPER LOBE AND LINGULA, MAY REPRESENT MULTIFOCAL PNEUMONIA/ASPIRATION PNEUMONITIS, HEMORRHAGE OR ASYMMETRIC EDEMA. ?RADIOGRAPHIC FOLLOW-UP IS RECOMMENDED.. 2. ?BILATERAL LOWER LOBE AIRSPACE OPACITIES WITH VOLUME LOSS, RIGHT GREATER THAN LEFT, MOST LIKELY ATELECTASIS WITH POSSIBLE SUPERIMPOSED INFECTIOUS PROCESS. 3. ?LIMITED EVALUATION OF PREVIOUSLY SEEN MID ESOPHAGEAL CONTRAST EXTRAVASATION/TEAR. ?SMALL FOCI OF RIGHT-SIDED PNEUMOMEDIASTINUM, NOT SIGNIFICANTLY CHANGED. ?SMALL FOCI OF PNEUMOMEDIASTINUM HAVE DEVELOPED SUPERIORLY. ?THESE COULD BE FROM RECENT INTERVENTION. 4. SMALL BILATERAL PLEURAL COLLECTIONS HAVE SLIGHTLY INCREASED COMPARED TO PRIOR EXAM. ?THE AIR COMPONENTS OF THE RIGHT PLEURAL COLLECTION ARE NEW SINCE PREVIOUS EXAM, LIKELY RELATED TO ?INTERVAL PLACEMENT OF RIGHT APICAL CHEST TUBE. CXR 04/19/18: IMPRESSION: Lines, tubes, and devices: ?The endotracheal tube ends in the thoracic trachea. The nasogastric/orogastric tube can be followed as far as the stomach. ?The right thoracostomy tube is unchanged. ?The right internal jugular venous catheter ends in the superior vena cava. Lungs and pleura: ?Small right pleural effusion with associated atelectasis is present. ?Superimposed aspiration/pneumonia cannot be excluded. ?Mild left basilar atelectasis is seen. ?No large pneumothorax is seen. Cardiomediastinal silhouette: ?Stable cardiomediastinal silhouette. US upper extremities 04/20/18: IMPRESSION ? RIGHT SIDE - DEEP VEINS Technically limited study. Negative for acute deep vein thrombosis in vessels visualized. Unable to visualize the internal jugular vein due to IV lines and bandages. RIGHT SIDE - SUPERFICIAL VEINS Acute superficial thrombophlebitis in the cephalic vein antecubital fossa to wrist. Acute superficial thrombophlebitis in the basilic vein mid upper arm to wrist. Acute superficial thrombophlebitis in the median cubital vein at the antecubital fossa. ? LEFT SIDE - DEEP VEINS Spontaneous and respirophasic flow noted in the subclavian vein at proximal. ? IMPRESSION / PLAN 52 yo M with a h/o cirrhosis, EtoH related, CKD, COPD and reported + PPD in the past. Currently no clinical or imaging evidence of active pulmonary TB. Presenting with hemorrhagic shock secondary to hematemesis/esophageal tear c/b pneumomediastinum; no surgical intervention planned at this time. Persistent fevers with more extensive right lung opacities. Stable, neutrophil-predominant leukocytosis. Superficial upper extremity clot burden unlikely to explain fevers to 102.2F as seen overnight. Potential sources include urinary catheter infection, central venous catheter related infection, progression of known mediastinitis, or drug fever. ? Plan: - continue vancomycin, cefepime, metronidazole, fluconazole as ordered for now - will continue to monitor fever curve and clinical progress - if fevers worsen or becomes hemodynamically unstable, would consider repeating CT chest as well as removing and replacing mcclain catheter (would then collect UA and Urine culture off of new mcclain catheter) Will discuss with attending, Perla Delgado PGY4 [facility] STAFF PHYSICIAN NOTE OF PERSONAL INVOLVEMENT IN CARE Events reviewed. Patient examined. Findings as outlined in the fellow's note above. Jang elements verified. ? Relevant lab data, microbiology and imaging data reviewed. Relevant images personally reviewed. ? Agree with assessment and plan as outlined in the fellow's note above. I was physically present for the critical portions of the service provided by the ID team. The management plan reflects my input. ? Marguerite Li MD Staff, Department of Infectious Disease Pager: [phone] Previous Version Nima Grimes MD 04/21/2018 12:25 PM Signed SURGICAL INTENSIVE CARE UNIT PROGRESS NOTE SERVICE DATE: April 21, 2018 SERVICE TIME: 12:16pm Subjective Mr.?Howard Villafana is a 52-year-old male with PMHx type II DM, poorly controlled HTN, CKD, COPD, tobacco smoker 2-3 PPD, alcohol use disorder with recent diagnosis of cirrhosis was transferred from [facility] with an esophageal perforation seen on EGD. Patient initially presented with hematemesis and melena with accompanying dizziness and shortness of breath. Now being admitted to the SICU for surgical evaluation and hemodynamic monitoring. Objective VITAL SIGNS Temp: (!) 38.2 ?C (100.7 ?F) Pulse: 94 BP: 122/58 MAP Non Invasive (Mean Arterial Pressure): 83 Resp: 29 SpO2: 98 % Not applicable Current Facility-Administered Medications: heparin 5,000 Units injection 5,000 Units SUBCUTANEOUS q 12 H Parenteral Nutrition - Adult INTRAVENOUS ONCE TPN (2200 START) vancomycin 1.5 g in D5W 250 mL (VANCOCIN) 1.5 g INTRAVENOUS q 12 HR vancomycin dosing and monitoring per pharmacy OTHER As Directed insulin regular human injection (short acting) (NovoLIN R,HumuLIN R) SUBCUTANEOUS q 6 H potassium chloride iv piggyback 20 mEq/100 mL 20 mEq INTRAVENOUS PRN Or potassium chloride 20-80 mEq CUP 20-80 mEq ORAL/FEEDING TUBE PRN cefepime 2 g in D5W 100 mL MB+ (MAXIPIME) 2 g INTRAVENOUS q 8 HR magnesium sulfate in water 2 g in sterile water 50 ml 2 g INTRAVENOUS PRN sodium glycerophosphate 15 mmol in D5W 250 mL (GLYCOPHOS) 15 mmol INTRAVENOUS PRN Or sodium glycerophosphate 30 mmol in D5W 250 mL (GLYCOPHOS) 30 mmol INTRAVENOUS PRN Or sodium glycerophosphate 45 mmol in D5W 250 mL (GLYCOPHOS) 45 mmol INTRAVENOUS PRN insulin glargine 18 Units pen (long acting) (LANTUS SOLOSTAR, BASAGLAR KWIKPEN) 18 Units SUBCUTANEOUS AT BEDTIME dextrose 40 % 15 g 15 g ORAL PRN Or glucagon 1 mg injection (GLUCAGEN) 1 mg INTRAMUSCULAR PRN Or dextrose 50 % 12.5 g injection 12.5 g INTRAVENOUS PRN octreotide 500 mcg in D5W 100 mL (SandoSTATIN) 50 mcg/hr INTRAVENOUS CONTINUOUS acetaminophen 650 mg suppository (TYLENOL) 650 mg RECTAL q 4 H PRN propofol infusion (DIPRIVAN) 5-60 mcg/kg/min INTRAVENOUS CONTINUOUS lactated ringers infusion 5-30 mL/hr INTRAVENOUS CONTINUOUS NaCl 0.9% 3-5 mL 3-5 mL INTRAVENOUS q 12 H fentaNYL 50 mcg/mL 25-50 mcg injection (SUBLIMAZE) 25-50 mcg INTRAVENOUS q 1 H PRN Chlorhexidine Gluconate 0.12 % 15 mL (PERIDEX) 15 mL ORAL QID metroNIDAZOLE 500 mg PREMIX piggyback (FLAGYL) 500 mg INTRAVENOUS q 8 H ipratropium-albuterol 3 mL nebulizer solution (DUONEB) 3 mL INHALATION q 4 H PRN albuterol 2.5 mg/0.5 mL 2.5 mg nebulizer solution (PROVENTIL) 2.5 mg INHALATION q 4 H PRN pantoprazole 40 mg injection (PROTONIX) 40 mg INTRAVENOUS BID AC (0600/1600) Cardiovascular: Regular rhythm Abdomen: Soft and Nontender Extremities: Mild pedal edema Neuro: Sedated Intake/Output Summary (Last 24 hours) at 04/21/18 1216 Last data filed at 04/21/18 0900 Gross per 24 hour Intake 3584 ml Output 2150 ml Net 1434 ml Current Weight: Weight: 108 kg (238 lb 1.6 oz) Admission Weight: Weight: 106.1 kg (233 lb 14.5 oz) RESPIRATORY Mechanical Ventilation: Vent Mode: PSV Freq (bpm): 18 PS (cmH20): 8 PEEP / CPAP (cmH20): 10 FIO2 (%): 40 Recent Labs 04/20/18 0144 04/19/18 0829 PH 7.38 7.41 PO2 73* 110* PCO2 36 34 BE NEG 4 NEG 2 HCO3 21* 21* LACT 1.1 0.9 CXR Findings: There is a partially loculated medium-size right pleural effusion with adjacent airspace consolidation, either aspiration/pneumonia. ?Patchy opacities are in the left lung. ?Findings are essentially stable from the prior exam. ?No large pneumothorax is identified. INFUSION(S): Propofol Patient Lines Assessed: Lines, Drains, and Airways Line Arterial Line 04/14/182319 Arterial Line Left Radial 6 days Central Line Triple Lumen 04/14/182318 Non-tunneled Right Neck 6 days Peripheral 04/14/18 2344 Left Antecubital 18 Gauge 6 days Drain GI Feed/Drain 04/14/182318 Nasogastric Left Naris 16 Fr 6 days Indwelling Urinary Catheter 04/14/182113 Admission to Hospital Mcclain 6 days Chest Tube 04/16/18 2100 Right 28 Fr 4 days Airway Airway Endotracheal Tube 04/14/182114 6 days Diagnostic tests reviewed for today's visit: Most recent labs and imaging results. Assessment/Plan Neuro:? -- tachypnea requiring intubation at OSH -- On propofol gtt. -- Fentanyl ?CV:? -- Goal MAP >65 - CXR yesterday - partially loculated medium-size right pleural effusion with adjacent airspace consolidation, stable from prior exam. ? Pulm:??Hx of COPD. Intubated. --Continue home bronchodilators -- duonebs prn -- Chest tube output 40cc over 24 hrs - will maintain wall suction. Continue intubation - Bronchoscopy yesterday, cultures sent - Continue RT treatments - CT chest WO IV contrast today ? Renal:??(baseline Cr ~1.2 from 02/2018) -- LIANE; most likely pre-renal.?Cr 1.57, slightly up from yesterday --Monitor Cr and I/Os --Mcclain ? GI:?Likely partial thickness esophageal perforation. Presented from OSH on 04/14 with hematemesis, melena dizziness and SOB. EtOH cirrhosis with portal HTN, grade 2 esophageal varices -- mid distal esophageal tear - not amenable to esophageal stenting --Pantoprazole for GI ppx and ocreotide gtt for at least 7 days (ending tomorrow) --NPO, TPN --NGT positioned by GI - DO NOT MANIPULATE BLINDLY -- potential mediastinitis -- General surgery - continue NPO -- Thoracic surgery - potential re-scope next week ? Heme:? -- Hgb 7.7 -- thrombocytopenia. Will watch for signs of bleeding and need?for further transfusion --Transfuse to keep Hgb >7 - SQH starting today ? Fluid/Electrolyte/Nutrition: --NPO --Replete lytes as one time dosing -- TPN ? Endo:?Hx of IDDM, HgbA1c 8.2. Glucose this am 255 - BG goal 130-180 - lantus --Continue insulin gtt -- Nutrition will adjust lantus in TF ? ID:?Esohageal tear and perforation. aztreonam and flagyl at OSH -Intermittent low grade fevers - MSSA PCR positive - MRSA PCR negative -Started Vancomycin per ID recs to cover for GPC -Concern for mediastinitisis - empiric coverage with cefepime, fluconazole, flagyl, vanco - end date in 1 month - Increased fluconazole to 400mg daily - allergy consult for skin test ? - ID following, appreciate recs ? PPX:? - GI ppx - pantoprazole - VTE ppx - held due to thrommbocytopenia ? Medication and Non-Pharmacologic VTE Prophylaxis/Anticoagulants Anticoagulant AND Antiplatelet Medications Start Dose Route Frequency Ordered Stop 04/21/18 0930 heparin 5,000 Units injection 5,000 Units SUBCUTANEOUS EVERY 12 HOURS 04/21/18 0901 -- 04/14/18 2100 pneumatic compression stockings ([place]) 04/14/18 2100 activity - mobilize patient ([place]) VTE Prophylaxis: VTE prophylaxis appropriate SIGNATURE: Nima Grimes MD, PGY-1 resident PATIENT NAME: Lazaro Villafana DATE: April 20, 2018 TIME: 1:03 PM PAGER/CONTACT #: Thania Ziegler RN, RN 04/21/2018 10:50 AM Signed Nursing Progress: Topic: RESTRAINT NON-VIOLENT PATIENT NAME: Lazaro Villafana PATIENT LOCATION: [place] [address] The patient demonstrates Attempting to Remove Medical Devices Vital to Medical Stability, Confusion, Lack of Understanding/Ability to Comply with Safety Directions, Impulsive Behavior, Inability to be Redirected, Inability to Retain Information Regarding Safety Directions as evidenced by the following behaviors pulling at vital lines and tubes which pose an imminent danger to self or others. The following interventions were attempted but were not effective in protecting the patient's safety: Alarms, Medications Reviewed, Modify Environment, Modify Equipment Next, a comprehensive assessment was performed and warranted placing the patient in Soft Bilateral Wrists, the least restrictive restraint needed to protect the patient's safety. Ongoing safety assessments and evaluation for earliest removal of restraints will be performed. DATE: April 21, 2018 TIME: 10:[address] [facility] 04/21/2018 1:24 PM Signed NUTRITION SUPPORT TEAM PROGRESS NOTE SERVICE DATE: 04/21/2018 SERVICE TIME: 1115 RECOMMENDED DIAGNOSIS: MILD PROTEIN-CALORIE MALNUTRITION per Registered Dietitian on 04/17/2018 NUTRITION CARE PLAN Intervention: 1. Continue TPN with decreased volume and increased insulin - PN to provide 100gms 15% AA, 600 dextrose calories, 1.5L at 62.5ml/hr - orders pended with add NaPhos, incr K+ acetate, reduced KPhos, MVI, MTE, 35 - 55u insulin (1:3 ratio), 100mg thiamine - adjust PN calories with propofol infusion. PN meeting minimum calories with current propofol rate 2. Defer 250ml IVPB lipids 20% fat emulsion with propofol ? Monitor and Evaluation: Goal: Meet >75% of estimated needs Monitor fluid/electrolyte balance Monitor labs, I/Os, vital signs, weight ? Discharge Nutrition Recommendations: To be determined ? Per HPI: 52 year old male with a history of type II DM, poorly controlled HTN, CKD, COPD, tobacco smoker 2-3 PPD, alcohol use disorder with recent diagnosis of cirrhosis was transferred from [facility] with an esophageal perforation seen on EGD. Patient initially presented with hematemesis and melena with accompanying dizziness and shortness of breath. Transferred to [facility] on 04/14 for further management. s/p EGD 04/15 which showed a deep esophageal tear. ?Plan for a minimum of NPO x 2 weeks. 04/16 Right chest tube placed for effusion. Interval History: PN volume increased. Discussed PN plan with SICU team; plan to reduce volume and increase insulin Pt is febrile with Tmax: 39 Resp: intubated I/O's: Intake/Output Summary (Last 24 hours) at 04/21/18 1318 Last data filed at 04/21/18 1100 Gross per 24 hour Intake 3584 ml Output 2210 ml Net 1374 ml overall +9143.2 Abdomen: not assessed Last BM: /2 - black Enteral access: n/a; NG to low suction with 400ml output past 24 hours Parenteral access: right IJ TLC placed 04/14 Labs: hyperchloremia (trended down), hypocapnia, hypophosphatemia, hyperglycemia, BUN/Cr trending up, lactate 1.2, ionized calcium 1.16 Blood Gases: pH 7.36, pCO2 40, HCO3 22 Blood sugars: 230, 255, 227 Cultures: blood cx x 2 no growth x 4 days; blood cx x 2 no growth <24 hours Imaging: n/a Nutritional Intake: Intake History BI DATA ARCHITECT: Unable to determine Current intake: 04/17: Average 5 day intakes meeting <50% of estimated energy need.s started on PN 04/17 due to esophageal tear, plan for NPO x 2 weeks 04/18: currently goal kcals, PN 940 kcals, 110 g pro + propofol 765 kcals/day 12: TPN wirh orders 04/17 - 04/19 to provide 110gms protein and 940 claories + additional calories from propofol (04/19 provided 626 calories) 04/21: PN with orders 04/20 to provide 100gms protein and 1000 calories + additional calories from propofol (~660 past 24 hours) ? Current Diet Order DIET NPO Lines and Drains: Central Line Triple Lumen 04/14/18 2319 Non-tunneled Right Neck (Active) Peripheral 04/14/18 2344 Left Antecubital 18 Gauge (Active) GI Feed/Drain 04/14/18 2319 Nasogastric Left Naris 16 Fr (Active) Indwelling Urinary Catheter 04/14/184 Admission to Hospital Mcclain (Active) Chest Tube 04/16/18 2100 Right 28 Fr (Active) Height: 177.8 cm (5' 10) Admission Weight: 106.1 kg (233 lb 14.5 oz) Current Weight: 107.8 kg (237 lb 10.5 oz) Body mass index is 34.1 kg/m?. Usual body weight ?Unable to determine? No weight history available. ? Estimated nutrition goals: [place] body weight: 75.4 kg Dosing weight: 106?kg (04/14; BMI 33.5kg/m2) ? Calorie needs 2439-1768?kilocalories determined by = 15-20?kcals/kg Dosing?weight? Protein needs: 90 - 121 grams determined by 1.2 -1.6g/kg ideal?weight?- due to CKD Temp (24hrs), Av.9 ?C (100.3 ?F), Min:37 ?C (98.6 ?F), Max:39 ?C (102.2 ?F) Recent Labs 04/21/18 0206 GLUC 247* BUN 61* CREAT 1.57* NA 141 K 4.2 CHLOR 107* CO2 21* ALB 2.2* P 2.4* HB 7.7* HCT 24.5* WBC 9.75 MG 2.1 Vitamin and Mineral Labs in the past year:No results for input(s): CHROMIUM, COPPER, MANGANESE, SELENIUM, VITAMINA, VITB1, VITB2, VITB6, B12, METHYLMAL, VITD25, VITAMINE, VITAK, ZINC, TIBC, FE, JOHANNY in the last 8784 hours. MNT Billing Type: Re-assess/15 min 2 units SIGNATURE: Sari Weston RD CNSC PATIENT NAME: Lazaro Villafana DATE: April 21, 2018 TIME: 1:16 PM PAGER: [phone] Rai Kramer, RN, RN 04/21/2018 3:25 PM Signed CARE MANAGEMENT PROGRESS NOTE SERVICE DATE: 04/21/2018 SERVICE TIME: 3:21 PM LOS: 7 days Patient remains in SICU intubated and sedated on Octreotide and remains NPO on TPN with NG, antibiotics per ID and with right chest tube. Had bronch with cultures sent yesterday. Temp max 39. Plan for CT chest today. Per CTS potential rescope next week. Laser Specialist to follow for discharge planning pending POC and medical stability. Needs Prior to Discharge: To Be Determined SIGNATURE: Rai Kramer RN PATIENT NAME: Lazaro Villafana DATE: April 21, 2018 TIME: 3:21 PM PAGER/CONTACT #: [phone] Tana Ramey MD 04/22/2018 9:27 PM Signed CONSULT HISTORY AND PHYSICAL ALLERGY AND CLINICAL IMMUNOLOGY PLEASE DO NOT REMOVE FROM THE CHART OR MODIFY PRINTED COPY Time of Service: 3:25 PM Consulting Service: SICU Requesting Provider: García Bah Opinion/advice regarding: Penicillin allergy HPI: This is a 52 year old male with PMH of cirrhosis (EtoH related), CKD and COPD, currently admitted for hemorrhagic shock secondary to hematemesis/esophageal tear c/b pneumomediastinum. We are consulted as the team would like to clarify his history of penicillin allergy and may change the current antibiotic management to Zosyn. The patient is intubated and sedated and unable to provide a history. His emergency contact ( - Sushila Villafana) was not reachable at both mobile nor home phone numbers. Per chart review, the patient has tolerated other beta-lactam antibiotics including cefepime (04/14-current). Collateral Allergic History Allergic rhinitis: unable to confirm/deny what is documented in the chart Asthma: unable to obtain confirm/deny what is documented in the chart Eczema: unable to obtain confirm/deny what is documented in the chart Urticaria: unable to obtain confirm/deny what is documented in the chart Angioedema: unable to obtain confirm/deny what is documented in the chart Radiocontrast dye reaction: unable to obtain confirm/deny what is documented in the chart Other Drug allergies: unable to obtain confirm/deny what is documented in the chart Drug intolerances: unable to obtain confirm/deny what is documented in the chart Review of Systems: Unable to perform review of systems as patient is intubated and sedated. PAST MEDICAL HISTORY Diagnosis Date - Cirrhosis (HCC) - COPD (chronic obstructive pulmonary disease) (HCC) - Diabetes (HCC) - ETOH abuse - Hypertension No past surgical history on file. ALLERGIES Allergen Reactions - Ciprofloxacin Unknown - Penicillin Unknown Tolerating cefepime Current hospital medications: heparin 5,000 Units injection 5,000 Units SUBCUTANEOUS q 12 H [START ON 04/22/2018] fluconazole 400 mg in NaCl (iso-osmotic) 200 mL (DIFLUCAN) 400 mg INTRAVENOUS DAILY Parenteral Nutrition - Adult INTRAVENOUS ONCE TPN (2200 START) Parenteral Nutrition - Adult INTRAVENOUS ONCE TPN (2200 START) vancomycin 1.5 g in D5W 250 mL (VANCOCIN) 1.5 g INTRAVENOUS q 12 HR vancomycin dosing and monitoring per pharmacy OTHER As Directed insulin regular human injection (short acting) (NovoLIN R,HumuLIN R) SUBCUTANEOUS q 6 H potassium chloride iv piggyback 20 mEq/100 mL 20 mEq INTRAVENOUS PRN potassium chloride 20-80 mEq CUP 20-80 mEq ORAL/FEEDING TUBE PRN cefepime 2 g in D5W 100 mL MB+ (MAXIPIME) 2 g INTRAVENOUS q 8 HR magnesium sulfate in water 2 g in sterile water 50 ml 2 g INTRAVENOUS PRN sodium glycerophosphate 15 mmol in D5W 250 mL (GLYCOPHOS) 15 mmol INTRAVENOUS PRN sodium glycerophosphate 30 mmol in D5W 250 mL (GLYCOPHOS) 30 mmol INTRAVENOUS PRN sodium glycerophosphate 45 mmol in D5W 250 mL (GLYCOPHOS) 45 mmol INTRAVENOUS PRN insulin glargine 18 Units pen (long acting) (LANTUS SOLOSTAR, BASAGLAR KWIKPEN) 18 Units SUBCUTANEOUS AT BEDTIME dextrose 40 % 15 g 15 g ORAL PRN glucagon 1 mg injection (GLUCAGEN) 1 mg INTRAMUSCULAR PRN dextrose 50 % 12.5 g injection 12.5 g INTRAVENOUS PRN octreotide 500 mcg in D5W 100 mL (SandoSTATIN) 50 mcg/hr INTRAVENOUS CONTINUOUS acetaminophen 650 mg suppository (TYLENOL) 650 mg RECTAL q 4 H PRN propofol infusion (DIPRIVAN) 5-60 mcg/kg/min INTRAVENOUS CONTINUOUS lactated ringers infusion 5-30 mL/hr INTRAVENOUS CONTINUOUS NaCl 0.9% 3-5 mL 3-5 mL INTRAVENOUS q 12 H fentaNYL 50 mcg/mL 25-50 mcg injection (SUBLIMAZE) 25-50 mcg INTRAVENOUS q 1 H PRN Chlorhexidine Gluconate 0.12 % 15 mL (PERIDEX) 15 mL ORAL QID metroNIDAZOLE 500 mg PREMIX piggyback (FLAGYL) 500 mg INTRAVENOUS q 8 H ipratropium-albuterol 3 mL nebulizer solution (DUONEB) 3 mL INHALATION q 4 H PRN albuterol 2.5 mg/0.5 mL 2.5 mg nebulizer solution (PROVENTIL) 2.5 mg INHALATION q 4 H PRN pantoprazole 40 mg injection (PROTONIX) 40 mg INTRAVENOUS BID AC (0600/1600) Social History Marital status: Spouse name: Years of education: Number of children: Social History Main Topics Smoking status: Current Every Day Smoker Packs/day: 0.00 Years: 0.00 Alcohol use: Yes Drug use: Yes No family history on file. Physical Exam: BP 178/77 Pulse 87 Temp 37.8 ?C (100.1 ?F) (Oral) Resp (!) 31 Ht 177.8 cm (5' 10) Wt 107.8 kg (237 lb 10.5 oz) SpO2 98% BMI 34.10 kg/m? GENERAL APPEARANCE: intubated and sedated HEENT: Head exam: normocephalic, atraumatic Eyes: eyes shut with mild edema of the lids bilaterally Ear exam: external ears normal Oropharynx: Endotracheal tube in place CHEST: anterior breath sounds somewhat rhonchorous, no wheezing, no respiratory distress CARDIAC: RRR, no murmurs ABDOMEN: soft, non-tender EXTREMITIES: no edema SKIN: warm, dry, tattoos present Diagnostic Studies: PENICILLIN SKIN TESTING Interpreted By: Yaima Knapp MD ALLERGEN: Penicillin G (Percutaneous): 0mm, 0mm PrePen (Percutaneous): 0mm, 0mm CONTROL: 0mm, 0mm HISTAMINE: 3mm, 17mm Penicillin G (Intradermal): 0mm, 0mm PrePen (Intradermal): 0mm, 0mm CONTROL: 0mm, 0mm HISTAMINE: 11mm, 35mm Assessment: The patient has no evidence of penicillin-specific reaction by skin testing to penicillin G and PrePen. This suggests that the patient is not at increased risk for IgE-mediated (allergic/anaphylactic) reaction from penicillin/penicillin-like drugs compared with the history- negative general population. On this basis, the patient may receive beta lactam antibiotics as indicated. The patient is still at risk for a non-IgE mediated reaction including SJS/TEN, serum sickness, or adverse effects of penicillin or penicillin-like drugs, as these tests do not predict the potential for these reactions. In addition, this evaluation does not rule out development of IgE sensitization upon exposure to beta lactams in the future. The patient's risk for developing an IgE-mediated reaction, a delayed reaction, or adverse drug reaction is the same as it would be for the general population. As we were unable to obtain the reaction history from the patient or family we would strongly recommended continuing to contact family to see if they are able to confirm that the reaction was not a life threatening/severe reaction (such as requiring ICU stay), as the possibility exists that this could have been a delayed hypersensitivity reaction which was severe, such as Mercado Guillermo Syndrome (SJS), in which case this would be missed by PCN skin testing and we would need to continue to avoid penicillin. If unable to confirm that the family is unaware of a history of life threatening reaction and penicillin is the drug of choice without an equally efficacious alternative, then the decision as to whether or not to administer penicillin would have to be based on careful assessment of the risks and benefits. There is no desensitization procedure for delayed hypersensitivity reactions. If the family confirms that there is no knowledge of the reaction having been life threatening, then the patient may take penicillin, semi-synthetic penicillin drugs, and cephalosporins as clinically indicated. We recommend giving a test dose (10%) of the desired penicillin drug and if there is no reaction after 30 minutes, you may proceed with regular dosing with no further restrictions. Thank you for allowing us to participate in the care of this patient. Please call with any questions. Yaima Knapp MD Allergy and Immunology Fellow PAGER: [phone] Date: April 21, 2018 Time:3:25 PM To be Discussed with Dr. Tana Ramey ALLERGY/IMMUNOLOGY STAFF Lazaro Villafana was seen today for Allergy/Immunology evaluation. I have confirmed and agree with history, physical examination, assessment, and recommendations as detailed above by the fellow; complete details will not be reiterated herein. Briefly the patient has history of reported penicillin allergy. No details of penicillin allergy are known. The patient is extubated at the time of my evaluation, but is not able to provide history regarding penicillin allergy. On examination today, the patient is alert, drowsy. No rashes. No angioedema. Heart RRR. Lungs with coarse breath sounds. Penicillin skin testing negative as listed above. A/P: -The patient has no evidence of penicillin-specific IgE by skin testing. This suggest that the patient is at low risk for an IgE-mediated Type I hypersensitivity reaction to penicillin. Skin testing cannot predict non-IgE or idi osyncratic reactions to penicillin. -the patient is not currently able to provide history regarding the details of the penicillin reaction. If there is a history consistent with a severe cutaneous adverse reaction (SJS, TEN), AGEP, or DRESS, rechallenge with penicillin would not be recommended. Therefore, would recommend that the team obtain additional history from the patient to help determine what type of reaction the original reaction was. If the patient requires treatments with a penicillin and no equally efficacious alternative exists prior to that time, risks vs benefits of penicillin use would need to be considered. -if the initial reaction was not consistent with any of the severe reactions listed above, use of a penicillin could be considered. Recommend that the first dose be given as a graded dose challenge in a monitored setting. Tana Ramey MD Previous Version Aidan Alas MD 04/21/2018 3:59 PM Signed ICU STAFF -- AIDAN ALAS REASON FOR ICU ADMISSION AND PERTINENT RECENT HISTORY Critically ill 52 year old male presented to OSH on 04/14/18 with hematemesis which was temporized with a Sengstaken-Tony tube. A subsequent EGD showed esophageal varices without active bleeding, old blood in stomach, normal duodenum, and a large clot over a esophageal perforation/tear [linear, partial thickness esophageal laceration from 31-37 cm from incisors]. He was transferred to [facility] on 04/14/18 for further management. ? Thoracic surgery is following the patient and is planning conservative management given that CT scan shows partial thickness esophageal tear without active mediastinal or pleural extravasation. ? Patient is s/p EGD on 04/15/18 which showed evidence of hematin and blood clots in both esophagus and stomach; deep esophageal tear previously described noted ~5 cm in length. Defer placement of esophageal stent. ? Thoracic surgery placed R sided CT on 04/17 given changing ventilator requirements. There was approximately 400 cc of serosanguinous fluid drained with significant improvement in oxygenation requirements. There was not significant change in the imaging. ? Notable PMHx: type II DM, poorly controlled HTN, CKD, COPD, tobacco smoker 2-3 PPD, alcohol use disorder with a recent diagnosis of cirrhosis, reported + PPD in the past but currently no clinical or imaging evidence of active pulmonary TB Subjective: fevers overnight continue Objective: Physical exam: BP 178/77 Pulse 87 Temp 37.8 ?C (100.1 ?F) (Oral) Resp (!) 31 Ht 177.8 cm (5' 10) Wt 107.8 kg (237 lb 10.5 oz) SpO2 98% BMI 34.10 kg/m? Weight change: -0.2 kg (-7.1 oz) 1. HEENT: normocephalic 2. Neck: midline trachea 3. Lungs: bilateral chest rise; R CT in place (no leak noted) 4. Heart: S1:+ S2:+ 5. Abdomen: soft 6. Extremities: 1+ edema; 1+ edema RUE 7. Skin: WWP 8. Neurological: sedated on propofol Mechanical ventilation: Mode: PSV FiO2: 40 Vt(ml): 653 PEEP(cm):10 Lab: CBC, Coags, BMP, Mg, Phos Recent Labs 04/21/18 1252 04/21/18 0206 04/20/18 1338 04/20/18 0144 04/20/18 0134 04/19/18 0804/19/18 033 WBC -- 9.75 10.03 -- 9.01 -- -- 6.66 HB -- 7.7* 7.9* -- 8.0* -- -- 8.2* HCT -- 24.5* 24.2* -- 24.9* -- -- 25.2* PLT -- 82* 66* -- 74* -- -- 51* NA -- 141 -- -- 143 -- -- 143 K -- 4.2 -- -- 4.1 -- -- 4.0 CHLOR -- 107* -- -- 111* -- -- 111* CO2 -- 21* -- -- 20* -- -- 20* BUN -- 61* -- -- 57* -- -- 58* CREAT -- 1.57* -- -- 1.50* -- -- 1.47* GLUC -- 247* -- -- 219* -- -- 159* IC 1.16 -- -- 1.20 -- 1.13 < > -- CA -- 7.8* -- -- 7.7* -- -- 7.4* MG -- 2.1 -- -- 2.0 -- -- 1.9 P -- 2.4* -- -- 2.7 -- -- 2.0* < > = values in this interval not displayed. Liver Function, Amylase, AND Lipase Recent Labs 04/21/18 1252 04/21/18 0206 04/20/18 0144 04/20/18 01304/19/18 0804/19/18 033 TPROT -- 5.6* -- 5.1* -- -- 5.3* ALB -- 2.2* -- 2.1* -- -- 2.1* ALT -- 17 -- 14 -- -- 16 AST -- 45* -- 37 -- -- 30 ALKPHOS -- 65 -- 62 -- -- 56 TBILI -- 0.8 -- 0.6 -- -- 0.6 LACT 1.2 -- 1.1 -- 0.9 < > -- < > = values in this interval not displayed. ABGs Recent Labs 04/21/18 1252 04/20/18 0144 04/19/18 0829 PH 7.36 7.38 7.41 PCO2 40 36 34 PO2 104* 73* 110* BE NEG 3 NEG 4 NEG 2 HCO3 22 21* 21* CO2CT 23 22 22 O2HB 96 93* 97 COHB 0.9 1.7 1.3 MHGB 0.7 0.0* 0.6 TEMP 37.0 37.0 37.0 PHTC 7.36 7.38 7.41 PCO2T 40 36 34 PO2T 104 73 110 CXR: R sided opacity - effusion vs collapse; hilar congestion; low lung volumes Fluids: Intake/Output Summary (Last 24 hours) at 04/21/18 0659 Last data filed at 04/21/18 0600 Gross per 24 hour Intake 3524 ml Output 2460 ml Net 1064 ml Daily Assessments: Restraints- yes Central Access- yes Sedation interruption- yes Mcclain catheter required for clinical management- yes Assessment: Critically ill Patient Active Hospital Problem List: Hyperglycemia (04/14/2018) Alcoholic cirrhosis (HCC) (04/14/2018) COPD (chronic obstructive pulmonary disease) (HCC) (04/14/2018) Esophageal perforation (04/14/2018) Mild protein-calorie malnutrition (HCC) (04/17/2018) Secondary thrombocytopenia (04/20/2018) Acute post-operative pain (04/20/2018) Acute respiratory insufficiency (04/20/2018) Consolidation of right lower lobe of lung (HCC) (04/20/2018) Secondary esophageal varices without bleeding (HCC) (04/20/2018) Tobacco abuse (04/20/2018) Acute blood loss anemia (04/20/2018) Mediastinitis (04/20/2018) Fever (04/20/2018) Plan: Fever workup includes CT scan today to look for an unexpected source. Consider DVT scan, BCx, UA. Otherwise, continue broad spectrum ABx. Fortunately, WBC is down trending. PLT is up trending - start SQH Octreotide off tomorrow AM - 7 days completed Hyperglycemia - increase insulin in TPN Consider furosemide administration tomorrow Consult with thoracic surgery and GI for possible extubation tomorrow if they can tolerate respiratory hygiene and coughing. Prophylaxis: DVT: SQH/SCDs Stress gastritis: pantoprazole BID I have personally examined the patient today for an aggregate of 41 min of critical care time. I have examined the patient and reviewed lab data and x-rays. I have evaluated the hemodynamic and respiratory data, ECG, prescribed IV fluids, adjusted mechanical ventilation, assessed antibiotic therapy, prescribed nutritional and/or metabolic support. This care required my full attention and direct personal management in prevention of imminent clinical deterioration. Thank you for letting me follow this patient. SIGNATURE: Aidan Alas MD DATE: April 21, 2018 TIME: 3:44 PM Ekaterina Zabala PT 04/21/2018 4:19 PM Signed PHYSICAL THERAPY MISSED VISIT SERVICE DATE: 04/21/2018 SERVICE TIME: 1433 to 1433 ROOM: [place] [id number] Attempted Evaluation. Patient not able to tolerate sedation trials for participation with PT. Will reattempt as able. SIGNATURE: Ekaterina Zabala PT PATIENT NAME: Lazaro Villafana DATE: April 21, 2018 TIME: 4:19 PM Villa Thomas MD 04/22/2018 7:49 AM Signed GENERAL SURGERY PROGRESS NOTE ASSESSMENT AND PLAN 52 year old male with PMHx type II DM, poorly controlled HTN, CKD, COPD, tobacco smoker 2-3 PPD, alcohol use disorder with recent diagnosis of cirrhosis w/ esophageal varices who presents on transfer from OSH with hematemesis s/p EGD at OSH c/b esophageal laceration that appears to be contained; MELD > 20 - Continue strict NPO - No surgical intervention planned - Follow Thoracic Surgery recommendations - Continue supportive/SICU care - trend labs Plan to be discussed further with staff *After 6pm and on weekends please page general surgery director of early childhood education [phone]* SUBJECTIVE/INTERVAL EVENTS Remains febrile (39 overnight), no leukocytosis, adequate UOP Hydropneumothorax unchanged on yesterday's CT chest - RLL possibly representing aspiration/infection CT output 100 cc/24hrs NGT output 200 cc OBJECTIVE BP 114/58 Pulse 90 Temp (!) 38.2 ?C (100.8 ?F) (Oral) Resp 21 Ht 177.8 cm (5' 10) Wt 107.8 kg (237 lb 10.5 oz) SpO2 95% BMI 34.10 kg/m? Intake/Output Summary (Last 24 hours) at 04/21/18 0659 Last data filed at 04/21/18 0600 Gross per 24 hour Intake 3524 ml Output 2460 ml Net 1064 ml General: sedated, ill appearing CV: RRR Pulm: ventilator Neck: no subQ emphysema/crepitus appreciated Abdomen: soft, non-distended Neuro: limited exam 2/2 sedation Labs/Imaging: CBC, BMP, MG, PHOS Recent Labs 04/22/18 0120 04/21/18 0206 04/20/18 1338 04/20/18 0134 04/19/18 0330 WBC 8.44 9.75 10.03 9.01 6.66 HB 7.4* 7.7* 7.9* 8.0* 8.2* HCT 23.0* 24.5* 24.2* 24.9* 25.2* PLT 88* 82* 66* 74* 51* NA 140 141 -- 143 143 K 4.3 4.2 -- 4.1 4.0 CHLOR 105 107* -- 111* 111* CO2 21* 21* -- 20* 20* BUN 58* 61* -- 57* 58* CREAT 1.45* 1.57* -- 1.50* 1.47* GLUC 223* 247* -- 219* 159* CA 7.5* 7.8* -- 7.7* 7.4* MG 2.0 2.1 -- 2.0 1.9 P 2.8 2.4* -- 2.7 2.0* Liver Function, Amylase, AND Lipase Recent Labs 04/22/18 0120 04/21/18 1252 04/21/18 0206 04/20/18 0144 04/20/18 0134 04/19/18 0829 04/19/18 0411 04/19/18 0330 TPROT 5.8* -- 5.6* -- 5.1* -- -- 5.3* ALB 2.1* -- 2.2* -- 2.1* -- -- 2.1* ALT 18 -- 17 -- 14 -- -- 16 AST 51* -- 45* -- 37 -- -- 30 ALKPHOS 72 -- 65 -- 62 -- -- 56 TBILI 0.7 -- 0.8 -- 0.6 -- -- 0.6 LACT -- 1.2 -- 1.1 -- 0.9 1.0 -- Coags Recent Labs 04/18/18 0002 04/17/18 0019 04/16/18 0031 04/15/18 0500 04/15/18 0345 APTT 31.7 32.1 31.6 -- Unable to assay. Specimen improperly collected/handled. INR 1.3 1.3 1.4* 1.3 Unable to assay. Specimen improperly collected/handled. Active Hospital Problems Diagnosis Date Noted - Secondary thrombocytopenia 04/20/2018 - Acute post-operative pain 04/20/2018 - Acute respiratory insufficiency 04/20/2018 - Consolidation of right lower lobe of lung (HCC) 04/20/2018 - Secondary esophageal varices without bleeding (HCC) 04/20/2018 - Tobacco abuse 04/20/2018 - Acute blood loss anemia 04/20/2018 - Mediastinitis 04/20/2018 - Fever 04/20/2018 - Mild protein-calorie malnutrition (HCC) 04/17/2018 - Esophageal perforation 04/14/2018 - Alcoholic cirrhosis (HCC) 04/14/2018 - Hyperglycemia 04/14/2018 - COPD (chronic obstructive pulmonary disease) (HCC) 04/14/2018 Chronic Villa Thomas MD PGY-1, General Surgery Acute Care Surgery: [id number] Previous Version Francois Gann MD,PhD 04/22/2018 7:26 AM Signed [facility]OR[facility] SURGERY CONSULT PROGRESS NOTE Lazaro Villafana [id number] PRIMARY SERVICE: HOSPITAL DAY: # 8 INTERVAL HISTORY No acute events overnight. Continues to be intubated. CT output 100cc. PHYSICAL EXAM BP 114/58 Pulse 90 Temp (!) 38.2 ?C (100.8 ?F) (Oral) Resp 21 Ht 177.8 cm (5' 10) Wt 108 kg (238 lb 1.6 oz) SpO2 95% BMI 34.16 kg/m? Intake/Output Summary (Last 24 hours) at 04/22/18 0546 Last data filed at 04/22/18 0500 Gross per 24 hour Intake 5531 ml Output 2830 ml Net 2701 ml Constitutional: intubated, sedated HEENT: intubated Resp: VENT FiO2 40, PEEP 10;?R chest tube in place and on suction, no air leak, sanguineous output Cardiovascular: Cardiac: RR Integumentary: Warm Musculoskeletal: No deformities Neurological/Psychiatric: intubated Additional systems reviewed: No additional systems reviewed ? DATA Recent Labs 04/22/18 0120 04/21/18 0206 04/20/18 1338 WBC 8.44 9.75 10.03 HB 7.4* 7.7* 7.9* HCT 23.0* 24.5* 24.2* PLT 88* 82* 66* Recent Labs 04/22/18 0120 04/21/18 0206 04/20/18 0134 NA 140 141 143 K 4.3 4.2 4.1 CO2 21* 21* 20* BUN 58* 61* 57* CREAT 1.45* 1.57* 1.50* GLUC 223* 247* 219* MG 2.0 2.1 2.0 IMAGING I personally reviewed: CXR ASSESSMENT AND PLAN 52 year old male with multiple medical comorbidities now with likely partial thickness esophageal perforation, putatively from S-B tube placement at OSH. It is unlikely that this is the etiology of his massive hemoptysis, reportedly there were multiple varices that, in the background of cirrhosis is the likely etiology of his bleed. While he is requiring high doses of vasopressors, it is unlikely that the source of his shock is purely from his esophageal perforation given his lack of pleural effusion or free flowing contrast. 04/15 EGD showed 5cm esophageal laceration without active bleeding. 04/16 Right chest tube placed for effusion. ? Plan - STRICT NPO for at least 2 weeks - continue TPN for the time being - Do NOT manipulate NGT blindly - recommend repeat EGD next week, please discuss with GI ? Francois Gann MD,PhD Pager [phone] 04/22/2018 5:46 AM Denis Jaime MD 04/22/2018 11:42 AM Signed SURGICAL INTENSIVE CARE UNIT PROGRESS NOTE SERVICE DATE: April 22, 2018 SERVICE TIME: 8:37 AM Subjective Mr.?Howard Villafana is a 52-year-old male with PMHx type II DM, poorly controlled HTN, CKD, COPD, tobacco smoker 2-3 PPD, alcohol use disorder with recent diagnosis of cirrhosis was transferred from OSH with an esophageal perforation seen on EGD. Patient initially presented with hematemesis and melena with accompanying dizziness and shortness of breath. Admitted to the SICU for surgical evaluation and hemodynamic monitoring. Objective VITAL SIGNS Temp: 37.8 ?C (100.1 ?F) Pulse: 80 BP: 102/57 MAP Non Invasive (Mean Arterial Pressure): 75 Resp: 18 SpO2: 99 % Not applicable Current Facility-Administered Medications: octreotide 500 mcg in D5W 100 mL (SandoSTATIN) 50 mcg/hr INTRAVENOUS CONTINUOUS heparin 5,000 Units injection 5,000 Units SUBCUTANEOUS q 12 H fluconazole 400 mg in NaCl (iso-osmotic) 200 mL (DIFLUCAN) 400 mg INTRAVENOUS DAILY Parenteral Nutrition - Adult INTRAVENOUS ONCE TPN (2199 START) vancomycin 1.5 g in D5W 250 mL (VANCOCIN) 1.5 g INTRAVENOUS q 12 HR vancomycin dosing and monitoring per pharmacy OTHER As Directed insulin regular human injection (short acting) (NovoLIN R,HumuLIN R) SUBCUTANEOUS q 6 H potassium chloride iv piggyback 20 mEq/100 mL 20 mEq INTRAVENOUS PRN Or potassium chloride 20-80 mEq CUP 20-80 mEq ORAL/FEEDING TUBE PRN cefepime 2 g in D5W 100 mL MB+ (MAXIPIME) 2 g INTRAVENOUS q 8 HR magnesium sulfate in water 2 g in sterile water 50 ml 2 g INTRAVENOUS PRN sodium glycerophosphate 15 mmol in D5W 250 mL (GLYCOPHOS) 15 mmol INTRAVENOUS PRN Or sodium glycerophosphate 30 mmol in D5W 250 mL (GLYCOPHOS) 30 mmol INTRAVENOUS PRN Or sodium glycerophosphate 45 mmol in D5W 250 mL (GLYCOPHOS) 45 mmol INTRAVENOUS PRN insulin glargine 18 Units pen (long acting) (LANTUS SOLOSTAR, BASAGLAR KWIKPEN) 18 Units SUBCUTANEOUS AT BEDTIME dextrose 40 % 15 g 15 g ORAL PRN Or glucagon 1 mg injection (GLUCAGEN) 1 mg INTRAMUSCULAR PRN Or dextrose 50 % 12.5 g injection 12.5 g INTRAVENOUS PRN acetaminophen 650 mg suppository (TYLENOL) 650 mg RECTAL q 4 H PRN propofol infusion (DIPRIVAN) 5-60 mcg/kg/min INTRAVENOUS CONTINUOUS lactated ringers infusion 5-30 mL/hr INTRAVENOUS CONTINUOUS NaCl 0.9% 3-5 mL 3-5 mL INTRAVENOUS q 12 H fentaNYL 50 mcg/mL 25-50 mcg injection (SUBLIMAZE) 25-50 mcg INTRAVENOUS q 1 H PRN Chlorhexidine Gluconate 0.12 % 15 mL (PERIDEX) 15 mL ORAL QID metroNIDAZOLE 500 mg PREMIX piggyback (FLAGYL) 500 mg INTRAVENOUS q 8 H ipratropium-albuterol 3 mL nebulizer solution (DUONEB) 3 mL INHALATION q 4 H PRN albuterol 2.5 mg/0.5 mL 2.5 mg nebulizer solution (PROVENTIL) 2.5 mg INHALATION q 4 H PRN pantoprazole 40 mg injection (PROTONIX) 40 mg INTRAVENOUS BID AC (0600/1600) Cardiovascular: Regular rhythm Abdomen: Soft and Nontender Extremities: Mild pedal edema Neuro: Sedated Intake/Output Summary (Last 24 hours) at 04/22/18 0837 Last data filed at 04/22/18 0700 Gross per 24 hour Intake 4057 ml Output 2530 ml Net 1527 ml Current Weight: Weight: 108 kg (238 lb 1.6 oz) Admission Weight: Weight: 106.1 kg (233 lb 14.5 oz) RESPIRATORY Mechanical Ventilation: Vent Mode: PSV Freq (bpm): 18 PS (cmH20): 5 PEEP / CPAP (cmH20): 5 FIO2 (%): 40 Recent Labs 04/21/18 1252 04/20/18 0144 PH 7.36 7.38 PO2 104* 73* PCO2 40 36 BE NEG 3 NEG 4 HCO3 22 21* LACT 1.2 1.1 CXR Findings: Right effusion and overlying opacity not significantly changed. No pneumothorax. INFUSION(S): Propofol Patient Lines Assessed: Lines, Drains, and Airways Line Arterial Line 04/14/18 2320 Arterial Line Left Radial 7 days Central Line Triple Lumen 04/14/18 2319 Non-tunneled Right Neck 7 days Peripheral 04/14/18 2344 Left Antecubital 18 Gauge 7 days Drain GI Feed/Drain 04/14/18 2319 Nasogastric Left Naris 16 Fr 7 days Indwelling Urinary Catheter 04/14/182113 Admission to Hospital [facility] 7 days Chest Tube 04/16/18 2100 Right 28 Fr 5 days Airway Airway Endotracheal Tube 04/14/182114 7 days Diagnostic tests reviewed for today's visit: Most recent labs and imaging results. Assessment/Plan Neuro:? -- tachypnea requiring intubation at OSH -- On propofol gtt. -- Fentanyl ?CV:? -- Goal MAP >65 - CXR today- Right effusion and overlying opacity not significantly changed. No pneumothorax. ? Pulm:??Hx of COPD. Intubated. --Continue home bronchodilators -- duonebs prn -- Chest tube output 100cc over 24 hrs - will maintain wall suction. - Bronchoscopy with cultures sent - Continue RT treatments - CT chest WO IV contrast today - Will attempt to extubate this AM ? Renal:??(baseline Cr ~1.2 from 02/2018) -- LIANE; most likely pre-renal.?Cr 1.45 --Monitor Cr and I/Os --[facility] ? GI:?Likely partial thickness esophageal perforation. Presented from OSH on 04/14 with hematemesis, melena dizziness and SOB. EtOH cirrhosis with portal HTN, grade 2 esophageal varices -- mid distal esophageal tear - not amenable to esophageal stenting --Pantoprazole for GI ppx and ocreotide gtt for at least 7 days (ending tomorrow) --NPO, TPN --NGT positioned by GI - DO NOT MANIPULATE BLINDLY -- potential mediastinitis -- General surgery - continue NPO -- Thoracic surgery - potential re-scope next week ? Heme:? -- Hgb 7.4 -- thrombocytopenia. Will watch for signs of bleeding and need?for further transfusion --Transfuse to keep Hgb >7 - SQH ? Fluid/Electrolyte/Nutrition: --NPO --Replete lytes as one time dosing -- TPN ? Endo:?Hx of IDDM, HgbA1c 8.2. Glucose this am 174 - BG goal 130-180 - lantus Sliding scale insulin -- Nutrition will adjust lantus in TF ? ID:?Esohageal tear and perforation. aztreonam and flagyl at OSH -Intermittent low grade fevers - MSSA PCR positive - MRSA PCR negative -Started Vancomycin per ID recs to cover for GPC -Concern for mediastinitisis - empiric coverage with cefepime, fluconazole, flagyl, vanco - end date in 1 month - Increased fluconazole to 400mg daily - allergy consult for skin test ? - ID following, appreciate recs ? PPX:? - GI ppx - pantoprazole - VTE ppx - held due to thrommbocytopenia ? Medication and Non-Pharmacologic VTE Prophylaxis/Anticoagulants Anticoagulant AND Antiplatelet Medications Start Dose Route Frequency Ordered Stop 04/21/18 0930 heparin 5,000 Units injection 5,000 Units SUBCUTANEOUS EVERY 12 HOURS 04/21/18 0901 -- 04/14/182099 pneumatic compression stockings ([place]) 04/14/182099 activity - mobilize patient ([place]) VTE Prophylaxis: VTE prophylaxis appropriate SIGNATURE: Denis Jaime MD PATIENT NAME: Lazaro Villafana DATE: April 22, 2018 TIME: 8:37 AM PAGER/CONTACT #: [id number] Previous Version Leena Li MD 04/22/2018 3:07 PM Signed INFECTIOUS DISEASES PROGRESS NOTE Patient Name: Lazaro Villafana Account #: Data Unavailable Admission Date: 04/14/2018 Date of Evaluation: 04/22/2018 Time of Evaluation: 10:20 AM INTERVAL HPI: No acute events overnight. Ongoing known mediastinitis confirmed on repeat CT chest 04/21/18, no surgical intervention planned at this time. Day 8 cefepime, fluconazole, metronidazole; day 3 vancomycin. On TPN for nutrition, project 2 weeks of NPO status until esophageal perforation may have healed; plans for re-scoping next week with GI. Tracheal aspirate, blood cultures collected 04/20/18 so far no growth. Febrile to 102.2F overnight, stable leukocytosis. Break-through fevers on [id number] tylenol. Life Coach evaluating reported penicillin allergy. MEDICATIONS: Current hospital medications: octreotide 500 mcg in D5W 100 mL (SandoSTATIN) 50 mcg/hr INTRAVENOUS CONTINUOUS heparin 5,000 Units injection 5,000 Units SUBCUTANEOUS q 12 H fluconazole 400 mg in NaCl (iso-osmotic) 200 mL (DIFLUCAN) 400 mg INTRAVENOUS DAILY Parenteral Nutrition - Adult INTRAVENOUS ONCE TPN (2200 START) vancomycin 1.5 g in D5W 250 mL (VANCOCIN) 1.5 g INTRAVENOUS q 12 HR vancomycin dosing and monitoring per pharmacy OTHER As Directed insulin regular human injection (short acting) (NovoLIN R,HumuLIN R) SUBCUTANEOUS q 6 H potassium chloride iv piggyback 20 mEq/100 mL 20 mEq INTRAVENOUS PRN potassium chloride 20-80 mEq CUP 20-80 mEq ORAL/FEEDING TUBE PRN cefepime 2 g in D5W 100 mL MB+ (MAXIPIME) 2 g INTRAVENOUS q 8 HR magnesium sulfate in water 2 g in sterile water 50 ml 2 g INTRAVENOUS PRN sodium glycerophosphate 15 mmol in D5W 250 mL (GLYCOPHOS) 15 mmol INTRAVENOUS PRN sodium glycerophosphate 30 mmol in D5W 250 mL (GLYCOPHOS) 30 mmol INTRAVENOUS PRN sodium glycerophosphate 45 mmol in D5W 250 mL (GLYCOPHOS) 45 mmol INTRAVENOUS PRN insulin glargine 18 Units pen (long acting) (LANTUS SOLOSTAR, BASAGLAR KWIKPEN) 18 Units SUBCUTANEOUS AT BEDTIME dextrose 40 % 15 g 15 g ORAL PRN glucagon 1 mg injection (GLUCAGEN) 1 mg INTRAMUSCULAR PRN dextrose 50 % 12.5 g injection 12.5 g INTRAVENOUS PRN acetaminophen 650 mg suppository (TYLENOL) 650 mg RECTAL q 4 H PRN propofol infusion (DIPRIVAN) 5-60 mcg/kg/min INTRAVENOUS CONTINUOUS lactated ringers infusion 5-30 mL/hr INTRAVENOUS CONTINUOUS NaCl 0.9% 3-5 mL 3-5 mL INTRAVENOUS q 12 H fentaNYL 50 mcg/mL 25-50 mcg injection (SUBLIMAZE) 25-50 mcg INTRAVENOUS q 1 H PRN Chlorhexidine Gluconate 0.12 % 15 mL (PERIDEX) 15 mL ORAL QID metroNIDAZOLE 500 mg PREMIX piggyback (FLAGYL) 500 mg INTRAVENOUS q 8 H ipratropium-albuterol 3 mL nebulizer solution (DUONEB) 3 mL INHALATION q 4 H PRN albuterol 2.5 mg/0.5 mL 2.5 mg nebulizer solution (PROVENTIL) 2.5 mg INHALATION q 4 H PRN pantoprazole 40 mg injection (PROTONIX) 40 mg INTRAVENOUS BID AC (0600/1600) PHYSICAL EXAM: BP 102/57 Pulse 80 Temp 37.8 ?C (100.1 ?F) (Oral) Resp 18 Ht 177.8 cm (5' 10) Wt 108 kg (238 lb 1.6 oz) SpO2 99% BMI 34.16 kg/m? Lines: [facility] 04/14, Nontunnelled triple lumen 04/14 in R neck, ET tube 04/14, NG in L nare 04/14, L radial A-line 04/14 ?GEN: Patient is critically ill appearing. Sedated. SKIN: No lesions noted. EYES: PERRLA NOSE: Left Nare Ng tube in place. NECK: R nontunnelled triple lumen catheter with no overlying erythema, swelling or warmth. LUNGS: clear to auscultation, no wheezes, or crackles. HEART: ?Regular rate/rhythm, normal heart sounds, and no murmurs. ABDOMEN: Soft, epigastric tenderness, BS present. EXTREMITIES: Edema of hands b/l, no LE edema. NEURO: Sedated, not following commands. +1.2L in last 24 hours Labs: WBC 8.44, Hgb 7.4, Plt 88, Cr 1.45 Cr: 1.45 Micro and radiology personally reviewed 04/14/18: Quantiferon gold testing negative for TB 04/14/18: Blood cultures 04/19 no growth 04/14/18: MSSA nasal swab positive 04/17/18: MSSA nasal swab positive 04/17/18: Blood cultures 2/2 no growth 04/20/18: Blood cultures 2/2 no growth 04/20/18: Tracheal aspirate cultures no organisms on gram stain so far CT Chest 04/17/18: IMPRESSION: 1. ?NEW MULTIFOCAL CONSOLIDATIVE/GROUNDGLASS OPACITIES PREDOMINANTLY LEFT UPPER LOBE AND LINGULA, MAY REPRESENT MULTIFOCAL PNEUMONIA/ASPIRATION PNEUMONITIS, HEMORRHAGE OR ASYMMETRIC EDEMA. ?RADIOGRAPHIC FOLLOW-UP IS RECOMMENDED.. 2. ?BILATERAL LOWER LOBE AIRSPACE OPACITIES WITH VOLUME LOSS, RIGHT GREATER THAN LEFT, MOST LIKELY ATELECTASIS WITH POSSIBLE SUPERIMPOSED INFECTIOUS PROCESS. 3. ?LIMITED EVALUATION OF PREVIOUSLY SEEN MID ESOPHAGEAL CONTRAST EXTRAVASATION/TEAR. ?SMALL FOCI OF RIGHT-SIDED PNEUMOMEDIASTINUM, NOT SIGNIFICANTLY CHANGED. ?SMALL FOCI OF PNEUMOMEDIASTINUM HAVE DEVELOPED SUPERIORLY. ?THESE COULD BE FROM RECENT INTERVENTION. 4. SMALL BILATERAL PLEURAL COLLECTIONS HAVE SLIGHTLY INCREASED COMPARED TO PRIOR EXAM. ?THE AIR COMPONENTS OF THE RIGHT PLEURAL COLLECTION ARE NEW SINCE PREVIOUS EXAM, LIKELY RELATED TO ?INTERVAL PLACEMENT OF RIGHT APICAL CHEST TUBE. CXR 04/19/18: IMPRESSION: Lines, tubes, and devices: ?The endotracheal tube ends in the thoracic trachea. The nasogastric/orogastric tube can be followed as far as the stomach. ?The right thoracostomy tube is unchanged. ?The right internal jugular venous catheter ends in the superior vena cava. Lungs and pleura: ?Small right pleural effusion with associated atelectasis is present. ?Superimposed aspiration/pneumonia cannot be excluded. ?Mild left basilar atelectasis is seen. ?No large pneumothorax is seen. Cardiomediastinal silhouette: ?Stable cardiomediastinal silhouette. US upper extremities 04/20/18: IMPRESSION ? RIGHT SIDE - DEEP VEINS Technically limited study. Negative for acute deep vein thrombosis in vessels visualized. Unable to visualize the internal jugular vein due to IV lines and bandages. RIGHT SIDE - SUPERFICIAL VEINS Acute superficial thrombophlebitis in the cephalic vein antecubital fossa to wrist. Acute superficial thrombophlebitis in the basilic vein mid upper arm to wrist. Acute superficial thrombophlebitis in the median cubital vein at the antecubital fossa. ? LEFT SIDE - DEEP VEINS Spontaneous and respirophasic flow noted in the subclavian vein at proximal. CT Chest 04/21/18: IMPRESSION: 1. ?Unchanged right hydropneumothorax with right thoracostomy tube and associated right lower lobe atelectasis. ?Superimposed infection/aspiration cannot be excluded. 2. ?Groundglass opacities in the left upper lobe and lingula, likely infectious/inflammatory. ?Left apical consolidation has decreased since the prior exam. 3. ?Circumferential wall thickening of the esophagus. ?Known esophageal tear is not visualized on this examination. 4. ?Mediastinal lymphadenopathy, likely reactive. ? IMPRESSION / PLAN 52 yo M with a h/o cirrhosis, EtoH related, CKD, COPD and reported + PPD in the past. Currently no clinical or imaging evidence of active pulmonary TB. Presenting with hemorrhagic shock secondary to hematemesis/esophageal tear c/b pneumomediastinum; no surgical intervention planned at this time. Persistent fevers with known right lung opacities. Stable, neutrophil-predominant leukocytosis. Superficial upper extremity clot burden unlikely to explain fevers to 102.2F in last 24 hours. Potential sources include urinary catheter infection, central venous catheter related infection, progression of known mediastinitis, or drug fever. ? Plan: - continue vancomycin, cefepime, metronidazole, fluconazole as ordered for now - remove existing mcclain, replace with new mcclain and draw UA/Urine cultures off of new mcclain - depending on results of allergy evaluation, may switch antibiotics today to address possibility of drug fever Will discuss with attendingPerla PGY4 [facility] STAFF PHYSICIAN NOTE OF PERSONAL INVOLVEMENT IN CARE Events reviewed. Patient examined. Findings as outlined in the fellow's note above. Jang elements verified. ?Relevant lab data, microbiology and imaging data reviewed. Relevant images personally reviewed. ?Agree with assessment and plan as outlined in the fellow's note above. I was physically present for the critical portions of the service provided by the ID team. The management plan reflects my input. ?Marguerite Li MD Staff, Department of Infectious Disease Pager: [phone] Previous Version Sari Weston RD [facility] 04/22/2018 12:22 PM Signed NUTRITION SUPPORT TEAM PROGRESS NOTE SERVICE DATE: 04/22/2018 SERVICE TIME: 1025 RECOMMENDED DIAGNOSIS: MILD PROTEIN-CALORIE MALNUTRITION per Registered Dietitian on 04/17/2018 NUTRITION CARE PLAN Intervention: 1. ?Continue TPN with decreased volume and increased insulin ?- PN to provide 110gms 15% AA, 600 dextrose calories, 1.2L at 50ml/hr ?- orders pended with incr MgSO4, incr Na+ acetate, incr NaPhos, MVI, MTE, 55-85u insulin (1:2 ratio), 100mg thiamine ?- adjust PN calories with propofol infusion. ?PN currently not meeting minimum calories with current propofol rate and with hyperglycemia did not increase dextrose 2. ?Defer 250ml IVPB lipids 20% fat emulsion with propofol ? Monitor and Evaluation: Goal: Meet >75% of estimated needs Monitor fluid/electrolyte balance Monitor labs, I/Os, vital signs, weight ? Discharge Nutrition Recommendations:? To be determined ? Per HPI: 52 year old male with a history of type II DM, poorly controlled HTN, CKD, COPD, tobacco smoker 2-3 PPD, alcohol use disorder with recent diagnosis of cirrhosis was transferred from [facility] with an esophageal perforation seen on EGD. Patient initially presented with hematemesis and melena with accompanying dizziness and shortness of breath. Transferred to [facility] on 04/14 for further management. s/p EGD 04/15?which showed a deep esophageal tear. ?Plan for a minimum of NPO x 2 weeks. ?04/16 Right chest tube placed for effusion. Interval History: TPN continues. Propofol continues. hyperglycemia. Discussed PN orders with SICU staff - incr insulin, reduce volume Pt is febrile with Tmax: 39 Resp: intubated I/O's: Intake/Output Summary (Last 24 hours) at 04/22/18 1213 Last data filed at 04/22/18 1100 Gross per 24 hour Intake 4117 ml Output 3120 ml Net 997 ml overall +07071.2 Abdomen: not assessed Last BM: ?04/22 - black Enteral access: ?n/a; NG to low suction with 400ml output past 24 hours Parenteral access: ?right IJ TLC placed 04/14 Labs: PO4 improved/suboptimal, hyperglycemia, Cl improved, hypocapnia, K+ trending up, lactate 1.0, ionized calcium 1.16 Blood Gases: pH 7.39, pCO2 36, HCO3 22 Blood sugars: 240, 232; Whole blood glucose 04/22 @0855 174 Cultures: blood cx x 2 no growth x 2 days; blood cx x 2 no growth x 5 days Imaging: n/a Nutritional Intake: Intake History BI DATA ARCHITECT: Unable to determine Current intake: 04/17: ?Average 5 day intakes meeting <50% of estimated energy need.s started on PN 04/17 due to esophageal tear, plan for NPO x 2 weeks 04/18: currently goal kcals, PN 940 kcals, 110 g pro + propofol 765 kcals/day 1: ?TPN wirh orders 04/17 - 04/19 to provide 110gms protein and 940 claories + additional calories from propofol (04/19 provided 626 calories) 04/21 - 04/22: PN with orders 04/20 - 04/21 to provide 100gms protein and 1000 calories + additional calories from propofol Current Diet Order DIET NPO Lines and Drains: Central Line Triple Lumen 04/14/18 2319 Non-tunneled Right Neck (Active) Peripheral 04/14/18 2344 Left Antecubital 18 Gauge (Active) GI Feed/Drain 04/14/18 2319 Nasogastric Left Naris 16 Fr (Active) Indwelling Urinary Catheter 04/14/18 2114 Admission to Hospital [facility] (Active) Chest Tube 04/16/18 2100 Right 28 Fr (Active) Height: 177.8 cm (5' 10) Admission Weight: 106.1 kg (233 lb 14.5 oz) Current Weight: 108 kg (238 lb 1.6 oz) Body mass index is 34.16 kg/m?. Usual body weight ?Unable to determine? No weight history available. ? Estimated nutrition goals: [place] body weight: 75.4 kg Dosing weight: 106?kg (04/14; BMI 33.5kg/m2)?? Calorie needs 2166-4899?kilocalories determined by = 15-20?kcals/kg Dosing?weight? Protein needs: 90 - 121?grams determined by 1.2 -1.6g/kg ideal?weight?- due to CKD Temp (24hrs), Av.2 ?C (100.7 ?F), Min:37.8 ?C (100 ?F), Max:39 ?C (102.2 ?F) Recent Labs 04/22/18 0120 GLUC 223* BUN 58* CREAT 1.45* NA 140 K 4.3 CHLOR 105 CO2 21* ALB 2.1* P 2.8 HB 7.4* HCT 23.0* WBC 8.44 MG 2.0 Vitamin and Mineral Labs in the past year:No results for input(s): CHROMIUM, COPPER, MANGANESE, SELENIUM, VITAMINA, VITB1, VITB2, VITB6, B12, METHYLMAL, VITD25, VITAMINE, VITAK, ZINC, TIBC, FE, JOHANNY in the last 8784 hours. MNT Billing Type: Re-assess/15 min 2 units SIGNATURE: Sari Weston RD CNSC PATIENT NAME: Lazaro Villafana DATE: April 22, 2018 TIME: 12:03 PM PAGER: [phone] DAKOTAH GAXIOLA, CHEMISTRY LAB INSTRUCTOR 04/22/2018 12:24 PM Signed PHARMACY VANCOMYCIN DOSING NOTE Patient Name: Lazaro Villafana Admission Date: 04/14/2018 Date of Consult: 04/22/2018 Time of Consult: 12:17 PM Indication: Pneumonia Goal Range: 10-20 mcg/mL RECOMMENDATIONS/PLAN: Pharmacy consulted for vancomycin dosing for Lazaro Villafana, a 52 year old, male who is being treated with vancomycin for pneumonia. 1. Patient is currently ordered Vancomycin 1.5 g IV q12h. Today is day 3 of therapy. 2. The most recent vancomycin level was 24.3 mcg/mL drawn at 0120 on 04/22. This is a 10.5 hour level on the 3rd day of therapy. 3. Will decrease vancomycin to 1 g with a dosing interval of q12h based on random trough level and expectation that patient will accumulate further as they are not yet at steady state. 4. The next vancomycin level will be ordered for 04/26 unless clinically indicated sooner. (Pharmacy will order) We will follow patient renal function, vancomycin levels and doses with you during the course of therapy. Additional recommendations will appear in follow up notes. If you have any questions, please contact Dakotah Gaxiola PharmD at [phone]. Age: [age] year old Allergies: ALLERGIES Allergen Reactions - Ciprofloxacin Unknown - Penicillin Unknown Tolerating cefepime Last 3 Encounter Wt Readings: Date: Wt: 04/14/2018 108 kg (238 lb 1.6 oz) 04/14/2018 97 kg (213 lb 13.5 oz) Last 1 Encounter Ht Readings: Date: Ht: 04/14/2018 177.8 cm (5' 10) CrCl: 75 mL/min Temp (24hrs), Av.2 ?C (100.7 ?F), Min:37.8 ?C (100 ?F), Max:39 ?C (102.2 ?F) - Current Temp: 37.8 ?C (100.1 ?F) Labs BUN (mg/dL) Date Value 04/22/2018 58 (H) 04/21/2018 61 (H) 04/20/2018 57 (H) Creatinine (mg/dL) Date Value 04/22/2018 1.45 (H) 04/21/2018 1.57 (H) 04/20/2018 1.50 (H) WBC (k/uL) Date Value 04/22/2018 8.44 04/21/2018 9.75 04/20/2018 10.03 Vancomycin Levels: Vancomycin, result (ug/mL) Date/Time Value 04/22/2018 0120 24.3 (H) DAKOTAH GAXIOLA, CHEMISTRY LAB INSTRUCTOR Ekaterina Zabala, PT 04/22/2018 1:34 PM Signed PHYSICAL THERAPY MISSED VISIT SERVICE DATE: 04/22/2018 SERVICE TIME: 1332 to 1332 ROOM: [place] [id number] Attempted Evaluation. Patient just extubated within the past hour after prolonged intubation/sedation. Will defer PT/OOB at this time to allow patient to sustain extubation, but will re-attempt and most likely trial OOB then d/t patient's medical improvement. SIGNATURE: Ekaterina Zabala, PT PATIENT NAME: Lazaro Villafana DATE: April 22, 2018 TIME: 1:33 PM Aidan Alas MD 04/22/2018 2:45 PM Signed ICU STAFF -- AIDAN ALAS REASON FOR ICU ADMISSION AND PERTINENT RECENT HISTORY Critically ill 52 year old male presented to OSH on 04/14/18 with hematemesis which was temporized with a Sengstaken-Tony tube. ?A subsequent EGD showed esophageal varices without active bleeding, old blood in stomach, normal duodenum, and a large clot over a esophageal perforation/tear [linear, partial thickness esophageal laceration from 31-37 cm from incisors]. He was transferred to [facility] on 04/14/18 for further management. ? Thoracic surgery is following the patient and is planning conservative management given that CT scan shows partial thickness esophageal tear without active mediastinal or pleural extravasation. ? ? Patient is s/p EGD on 04/15/18 which showed evidence of hematin and blood clots in both esophagus and stomach; deep esophageal tear previously described noted ~5 cm in length. ?Defer placement of esophageal stent. ? Thoracic surgery placed R sided CT on 04/17 given changing ventilator requirements. ?There was approximately 400 cc of serosanguinous fluid drained with significant improvement in oxygenation requirements. ?There was not significant change in the imaging. ? ? Notable PMHx: type II DM, poorly controlled HTN, CKD, COPD, tobacco smoker 2-3 PPD, alcohol use disorder with a recent diagnosis of cirrhosis, reported + PPD in the past but currently no clinical or imaging evidence of active pulmonary TB Subjective: fevers continue, otherwise no acute events overnight Objective: Physical exam: BP 127/63 Pulse 99 Temp (!) 38.8 ?C (101.8 ?F) (Oral) Resp 22 Ht 177.8 cm (5' 10) Wt 108 kg (238 lb 1.6 oz) SpO2 95% BMI 34.16 kg/m? Weight change: 0.2 kg (7.1 oz) 1. HEENT: normocephalic 2. Neck: midline trachea 3. Lungs: bilateral chest rise; R CT in place (no leak noted) 4. Heart: S1:+ S2:+ 5. Abdomen: soft 6. Extremities: 1+ edema; 1+ edema RUE 7. Skin: WWP 8. Neurological: arousable and follows commands Lab: CBC, Coags, BMP, Mg, Phos Recent Labs 04/22/18 1217 04/22/18 1048 04/22/18 0855 04/22/18 0120 04/21/18 1252 04/21/18 0206 04/20/18 1338 04/20/18 0134 WBC -- -- -- 8.44 -- 9.75 10.03 -- 9.01 HB -- -- -- 7.4* -- 7.7* 7.9* -- 8.0* HCT -- -- -- 23.0* -- 24.5* 24.2* -- 24.9* PLT -- -- -- 88* -- 82* 66* -- 74* INR -- 1.4* -- -- -- -- -- -- -- NA -- -- -- 140 -- 141 -- -- 143 K -- -- -- 4.3 -- 4.2 -- -- 4.1 CHLOR -- -- -- 105 -- 107* -- -- 111* CO2 -- -- -- 21* -- 21* -- -- 20* BUN -- -- -- 58* -- 61* -- -- 57* CREAT -- -- -- 1.45* -- 1.57* -- -- 1.50* GLUC -- -- -- 223* -- 247* -- -- 219* IC 1.10 -- 1.16 -- 1.16 -- -- < > -- CA -- -- -- 7.5* -- 7.8* -- -- 7.7* MG -- -- -- 2.0 -- 2.1 -- -- 2.0 P -- -- -- 2.8 -- 2.4* -- -- 2.7 < > = values in this interval not displayed. Liver Function, Amylase, AND Lipase Recent Labs 04/22/18 1217 04/22/18 0855 04/22/18 0120 04/21/18 1252 04/21/18 0206 04/20/18 013 TPROT -- -- 5.8* -- 5.6* -- 5.1* ALB -- -- 2.1* -- 2.2* -- 2.1* ALT -- -- 18 -- 17 -- 14 AST -- -- 51* -- 45* -- 37 ALKPHOS -- -- 72 -- 65 -- 62 TBILI -- -- 0.7 -- 0.8 -- 0.6 LACT 1.3 1.0 -- 1.2 -- < > -- < > = values in this interval not displayed. CXR: ongoing R sided opacity Fluids: Intake/Output Summary (Last 24 hours) at 04/22/18 0659 Last data filed at 04/22/18 0600 Gross per 24 hour Intake 4117 ml Output 2630 ml Net 1487 ml Daily Assessments: Restraints- no Central Access- yes Sedation interruption- yes Mcclain catheter required for clinical management- yes Assessment: Critically ill Patient Active Hospital Problem List: Hyperglycemia (04/14/2018) Alcoholic cirrhosis (HCC) (04/14/2018) COPD (chronic obstructive pulmonary disease) (HCC) (04/14/2018) Esophageal perforation (04/14/2018) Mild protein-calorie malnutrition (HCC) (04/17/2018) Secondary thrombocytopenia (04/20/2018) Acute post-operative pain (04/20/2018) Acute respiratory insufficiency (04/20/2018) Consolidation of right lower lobe of lung (HCC) (04/20/2018) Secondary esophageal varices without bleeding (HCC) (04/20/2018) Tobacco abuse (04/20/2018) Acute blood loss anemia (04/20/2018) Mediastinitis (04/20/2018) Fever (04/20/2018) Coagulopathy (HCC) (04/22/2018) Severe protein-calorie malnutrition (HCC) (04/22/2018) Plan: Patient was weaned from ventilator to PS 5/5 and 40%. ABG notable for adequate oxygenation and ventilation. Appropriate mechanics on ventilator. Discussed WTE with GI and thoracic surgery. Extubated this afternoon to MI. Low threshold for re-intubation given that NIPPV is not appropriate in the setting of an esophageal perforation. Furosemide 40 mg IV x 1 to optimize fluid status prior to extubation. It is difficult to understand why the high fevers continue. The patient appears to be improving from multiple aspects after the initial presentation on 04/14/18. Procalcitonin is downtrending from previous draw on 04/14/18. We contacted thoracic surgery to ensure there is no surgical option for washout. ID has recommended adjusting the medication regimen to r/o drug fever. We will continue to follow the fever curve. Insulin will be increased in TPN. Continue to monitor anemia. No indication for transfusion. MELD 14 today. Prophylaxis: DVT: SQH/SCDs Stress gastritis: pantoprazole BID ? I have personally examined the patient today for an aggregate of 36 min of critical care time. I have examined the patient and reviewed lab data and x-rays. I have evaluated the hemodynamic and respiratory data, ECG, prescribed IV fluids, adjusted mechanical ventilation, assessed antibiotic therapy, prescribed nutritional and/or metabolic support. This care required my full attention and direct personal management in prevention of imminent clinical deterioration. ? Thank you for letting me follow this patient. SIGNATURE: Aidan Alas MD DATE: April 22, 2018 TIME: 2:30 PM Villa Thomas MD 04/23/2018 7:56 AM Signed GENERAL SURGERY PROGRESS NOTE ASSESSMENT AND PLAN 52 year old male with PMHx type II DM, poorly controlled HTN, CKD, COPD, tobacco smoker 2-3 PPD, alcohol use disorder with recent diagnosis of cirrhosis w/ esophageal varices who presents on transfer from OSH with hematemesis s/p EGD at OSH c/b esophageal laceration that appears to be contained; MELD > 20 - Continue strict NPO - Patient removed his NGT overnight; this should not be reinserted blindly - No surgical intervention planned - Will need repeat EGD to reassess esophageal tear early next week - Corpak may be placed at that time - Continues to be febrile, no appreciable improvement of R hemithorax appearance on CXR with R sided CT with minimal output: will defer management to our thoracic surgery colleagues - Continue supportive/SICU care - trend labs Plan to be discussed further with staff *After 6pm and on weekends please page general surgery director of early childhood education [phone]* SUBJECTIVE/INTERVAL EVENTS Remains febrile (39 overnight), no leukocytosis, adequate UOP Right hemithorax still with hazy opacities on CXR CT output 70 cc/24hrs NGT output 300 cc OBJECTIVE BP 140/68 Pulse 96 Temp (!) 38 ?C (100.4 ?F) Resp 20 Ht 177.8 cm (5' 10) Wt 108.7 kg (239 lb 10.2 oz) SpO2 99% BMI 34.38 kg/m? Intake/Output Summary (Last 24 hours) at 04/22/18 0659 Last data filed at 04/22/18 0600 Gross per 24 hour Intake 4117 ml Output 2630 ml Net 1487 ml General: sedated, ill appearing CV: RRR Pulm: ventilator Neck: no subQ emphysema/crepitus appreciated Abdomen: soft, non-distended Neuro: limited exam / sedation Labs/Imaging: CBC, BMP, MG, PHOS Recent Labs 04/23/18 0206 04/22/18 0120 04/21/18 0206 04/20/18 1338 04/20/18 0134 WBC 7.48 8.44 9.75 10.03 9.01 HB 7.5* 7.4* 7.7* 7.9* 8.0* HCT 23.3* 23.0* 24.5* 24.2* 24.9* PLT 96* 88* 82* 66* 74* NA 140 140 141 -- 143 K 4.2 4.3 4.2 -- 4.1 CHLOR 104 105 107* -- 111* CO2 25 21* 21* -- 20* BUN 54* 58* 61* -- 57* CREAT 1.35* 1.45* 1.57* -- 1.50* GLUC 235* 223* 247* -- 219* CA 7.6* 7.5* 7.8* -- 7.7* MG 1.8 2.0 2.1 -- 2.0 P 3.2 2.8 2.4* -- 2.7 Liver Function, Amylase, AND Lipase Recent Labs 04/23/18 0206 04/22/18 1439 04/22/18 1217 04/22/18 0855 04/22/18 0120 04/21/18 1252 04/21/18 0206 04/20/18 0134 TPROT 6.2* -- -- -- 5.8* -- 5.6* -- 5.1* ALB 2.3* -- -- -- 2.1* -- 2.2* -- 2.1* ALT 23 -- -- -- 18 -- 17 -- 14 AST 54* -- -- -- 51* -- 45* -- 37 ALKPHOS 74 -- -- -- 72 -- 65 -- 62 TBILI 0.7 -- -- -- 0.7 -- 0.8 -- 0.6 LACT -- 1.4 1.3 1.0 -- 1.2 -- < > -- < > = values in this interval not displayed. Coags Recent Labs 04/22/18 1048 04/18/18 0002 04/17/18 0019 04/16/18 0031 04/15/18 0345 APTT -- 31.7 32.1 31.6 -- Unable to assay. Specimen improperly collected/handled. INR 1.4* 1.3 1.3 1.4* < > Unable to assay. Specimen improperly collected/handled. < > = values in this interval not displayed. Active Hospital Problems Diagnosis Date Noted - Coagulopathy (HCC) 04/22/2018 - Severe protein-calorie malnutrition (HCC) 04/22/2018 - Secondary thrombocytopenia 04/20/2018 - Acute post-operative pain 04/20/2018 - Acute respiratory insufficiency 04/20/2018 - Consolidation of right lower lobe of lung (HCC) 04/20/2018 - Secondary esophageal varices without bleeding (HCC) 04/20/2018 - Tobacco abuse 04/20/2018 - Acute blood loss anemia 04/20/2018 - Mediastinitis 04/20/2018 - Fever 04/20/2018 - Mild protein-calorie malnutrition (HCC) 04/17/2018 - Esophageal perforation 04/14/2018 - Alcoholic cirrhosis (HCC) 04/14/2018 - Hyperglycemia 04/14/2018 - COPD (chronic obstructive pulmonary disease) (HCC) 04/14/2018 Chronic Villa Thomas MD PGY-1, General Surgery Acute Care Surgery: [id number] Previous Version Francois Gann MD,PhD 04/23/2018 10:22 AM Addendum [facility] THORACIC SURGERY CONSULT PROGRESS NOTE Lazaro Villafana [id number] PRIMARY SERVICE: HOSPITAL DAY: # 9 INTERVAL HISTORY No acute events overnight. Pt was extubated yesterday. On 4L NC now. CT output 20. Pt pulled his NGT yesterday afternoon. Has some generalized pain. PHYSICAL EXAM BP 140/68 Pulse 96 Temp (!) 38 ?C (100.4 ?F) Resp 20 Ht 177.8 cm (5' 10) Wt 108.7 kg (239 lb 10.2 oz) SpO2 99% BMI 34.38 kg/m? Intake/Output Summary (Last 24 hours) at 04/23/18 0600 Last data filed at 04/23/18 0500 Gross per 24 hour Intake 2676.4 ml Output 3340 ml Net -663.6 ml Constitutional: No acute distress HEENT: EOM's intact Resp: Respiratory effort: normal Cardiovascular: Cardiac: Regular rate AND rhythm GI: Soft Integumentary: Warm Musculoskeletal: No deformities Neurological/Psychiatric: Alert Additional systems reviewed: No additional systems reviewed DATA Recent Labs 04/23/18 02004/22/18 01204/21/18 020 WBC 7.48 8.44 9.75 HB 7.5* 7.4* 7.7* HCT 23.3* 23.0* 24.5* PLT 96* 88* 82* Recent Labs 04/23/18 02004/22/1811904/21/18 020 NA 140 140 141 K 4.2 4.3 4.2 CO2 25 21* 21* BUN 54* 58* 61* CREAT 1.35* 1.45* 1.57* GLUC 235* 223* 247* MG 1.8 2.0 2.1 IMAGING I personally reviewed: CXR ASSESSMENT AND PLAN 52 year old male with multiple medical comorbidities now with likely partial thickness esophageal perforation, putatively from S-B tube placement at OSH. It is unlikely that this is the etiology of his massive hemoptysis, reportedly there were multiple varices that, in the background of cirrhosis is the likely etiology of his bleed. While he is requiring high doses of vasopressors, it is unlikely that the source of his shock is purely from his esophageal perforation given his lack of pleural effusion or free flowing contrast. 04/15 EGD showed 5cm esophageal laceration without active bleeding. 04/16 Right chest tube placed for effusion. 04/22 extubated. 04/22 Patient pulled NGT. ? Plan - STRICT NPO for at least 2 weeks - continue TPN for the time being - recommend repeat EGD next week, could potentially discuss having post-pyloric corpak placed at that point, please discuss with GI - CT chest repeat scan now that extubated and NGT is out - Pleural fluid culture ? Francois Gann MD,PhD Pager [phone] 04/23/2018 6:00 AM Previous Version Orlando Ramsay RN, RN 04/23/2018 1:41 PM Signed Nursing Progress Note Patient Name: Lazaro Villafana Patient Location: [address] [facility]/G052-08 1145- Pt's nose began bleeding. Large blood clot coughed up. HOB at 90, pressure held on nasal bridge. Thoracic team paged and SICU at bedside. 1200- Determined source of bleeding in L nare. Gauze packing placed. Ordered labs sent. Will continue to monitor. 1315- Bleeding decreased. Nasal packing remains in place at this time. This note was completed by: Orlando Ramsay, RN Rene Rajan MD 04/23/2018 7:40 PM Addendum SURGICAL INTENSIVE CARE UNIT PROGRESS NOTE SERVICE DATE: April 23, 2018 SERVICE TIME: 4:42 PM Subjective Mr.?Howard Villafana is a 52-year-old male with PMHx type II DM, poorly controlled HTN, CKD, COPD, tobacco smoker 2-3 PPD, alcohol use disorder with recent diagnosis of cirrhosis was transferred from [facility] with an esophageal perforation seen on EGD. Patient initially presented with hematemesis and melena with accompanying dizziness and shortness of breath. Admitted to the SICU for surgical evaluation and hemodynamic monitoring. 04/23: hyperglycemia around 200, NGT pulled out by patient overnight with traumatic nose bleed which responded to afrin, pleural fluid Cx per primary, no need to replace NGT at this point, will re-evaluate early next week for sips/CLD Objective VITAL SIGNS Temp: 36.3 ?C (97.3 ?F) Pulse: 77 BP: 127/69 MAP Non Invasive (Mean Arterial Pressure): 89 Resp: 14 SpO2: 96 % Not applicable Current Facility-Administered Medications: labetalol 10 mg injection syringe (NORMODYNE) 10 mg INTRAVENOUS q 2 H PRN Parenteral Nutrition - Adult INTRAVENOUS ONCE TPN (2200 START) vancomycin iv piggyback 1 g in D5W 200 mL (VANCOCIN) 1 g INTRAVENOUS q 12 HR aztreonam 2 g in D5W 100 mL MB+ (AZACTAM) 2 g INTRAVENOUS q 6 HR heparin 5,000 Units injection 5,000 Units SUBCUTANEOUS q 12 H fluconazole 400 mg in NaCl (iso-osmotic) 200 mL (DIFLUCAN) 400 mg INTRAVENOUS DAILY vancomycin dosing and monitoring per pharmacy OTHER As Directed insulin regular human injection (short acting) (NovoLIN R,HumuLIN R) SUBCUTANEOUS q 6 H potassium chloride iv piggyback 20 mEq/100 mL 20 mEq INTRAVENOUS PRN Or potassium chloride 20-80 mEq CUP 20-80 mEq ORAL/FEEDING TUBE PRN magnesium sulfate in water 2 g in sterile water 50 ml 2 g INTRAVENOUS PRN sodium glycerophosphate 15 mmol in D5W 250 mL (GLYCOPHOS) 15 mmol INTRAVENOUS PRN Or sodium glycerophosphate 30 mmol in D5W 250 mL (GLYCOPHOS) 30 mmol INTRAVENOUS PRN Or sodium glycerophosphate 45 mmol in D5W 250 mL (GLYCOPHOS) 45 mmol INTRAVENOUS PRN insulin glargine 18 Units pen (long acting) (LANTUS SOLOSTAR, BASAGLAR KWIKPEN) 18 Units SUBCUTANEOUS AT BEDTIME dextrose 40 % 15 g 15 g ORAL PRN Or glucagon 1 mg injection (GLUCAGEN) 1 mg INTRAMUSCULAR PRN Or dextrose 50 % 12.5 g injection 12.5 g INTRAVENOUS PRN acetaminophen 650 mg suppository (TYLENOL) 650 mg RECTAL q 4 H PRN lactated ringers infusion 5-30 mL/hr INTRAVENOUS CONTINUOUS NaCl 0.9% 3-5 mL 3-5 mL INTRAVENOUS q 12 H fentaNYL 50 mcg/mL 25-50 mcg injection (SUBLIMAZE) 25-50 mcg INTRAVENOUS q 1 H PRN Chlorhexidine Gluconate 0.12 % 15 mL (PERIDEX) 15 mL ORAL QID metroNIDAZOLE 500 mg PREMIX piggyback (FLAGYL) 500 mg INTRAVENOUS q 8 H ipratropium-albuterol 3 mL nebulizer solution (DUONEB) 3 mL INHALATION q 4 H PRN pantoprazole 40 mg injection (PROTONIX) 40 mg INTRAVENOUS BID AC (599/1599) Cardiovascular: Regular rhythm Abdomen: Soft and Nontender Extremities: Mild pedal edema Neuro: Sedated Intake/Output Summary (Last 24 hours) at 04/23/18 1642 Last data filed at 04/23/18 1600 Gross per 24 hour Intake 3248.4 ml Output 2950 ml Net 298.4 ml Current Weight: Weight: 108 kg (238 lb 1.6 oz) Admission Weight: Weight: 106.1 kg (233 lb 14.5 oz) RESPIRATORY Mechanical Ventilation: Vent Mode: PSV Freq (bpm): 18 PS (cmH20): 5 PEEP / CPAP (cmH20): 5 FIO2 (%): 40 Recent Labs 04/22/18 1439 04/22/18 1217 PH 7.42 7.38 PO2 150* 138* PCO2 34 38 BE NEG 2 NEG 2 HCO3 22 22 LACT 1.4 1.3 CXR Findings: Right effusion and overlying opacity not significantly changed. No pneumothorax. INFUSION(S): Propofol Patient Lines Assessed: Lines, Drains, and Airways Line Arterial Line 04/14/18 2320 Arterial Line Left Radial 8 days Central Line Triple Lumen 04/14/18 2319 Non-tunneled Right Neck 8 days Peripheral 04/14/18 2344 Left Antecubital 18 Gauge 8 days Drain Indwelling Urinary Catheter 04/14/182113 Admission to Hospital [facility] 8 days Chest Tube 04/16/18 2100 Right 28 Fr 6 days Diagnostic tests reviewed for today's visit: Most recent labs and imaging results. Assessment/Plan Neuro:? AOx3, extubated, comfortable -prn tylenol, prn fentanyl for pain ?CV:? -- Goal MAP >65 - CXR today- Right effusion and overlying opacity not significantly changed. No pneumothorax. ? Pulm:? ?Hx of COPD. Stable respiratory fn on RA -- duonebs prn -- Monitor chest tube output - will send pleural fluid for Cx -- Continue RT treatments -- repeat CT chest ordered per thoracic ? Renal:??(baseline Cr ~1.2 from 02/2018) -- stable kidney function, good UOP --Monitor Cr and I/Os --[facility] continue ? GI:? Likely partial thickness esophageal perforation. Presented from OSH on 04/14 with hematemesis, melena dizziness and SOB. EtOH cirrhosis with portal HTN, grade 2 esophageal varices -- mid distal esophageal tear -- not amenable to esophageal stenting --NPO - thoracic to re-eval for CLD early next week pending results of CT scan --NGT removed by patient last night (04/22) --no need to replace NGT per thoracic (do not place blindly) ? Heme:? -- Hgb 7.5 (stable) -- thrombocytopenia. Will watch for signs of bleeding and need?for further transfusion --Transfuse to keep Hgb >7 - SQH ? Fluid/Electrolyte/Nutrition: --NPO --Replete lytes as one time dosing -- TPN ? Endo:? Hx of IDDM, HgbA1c 8.2. Glucose this am 200+ - BG goal 130-180 - lantus 20 units (increased from 18) Sliding scale insulin Scale 3 -- Nutrition will adjust lantus in TF ? ID:?Esohageal tear and perforation. aztreonam and flagyl at OSH -Intermittent low grade fevers - MSSA PCR positive - MRSA PCR negative -Started Vancomycin per ID recs to cover for GPC - transitioned cefepnie to aztreonam 04/22 - no on aztreonam, fluconazole, flagyl, vanco - allergy consult for skin test - negative - tolerated cefepime - ID following, appreciate recs ? PPX:? - GI ppx - pantoprazole - VTE ppx - 5k u BID ? Medication and Non-Pharmacologic VTE Prophylaxis/Anticoagulants Anticoagulant AND Antiplatelet Medications Start Dose Route Frequency Ordered Stop 04/21/18 0930 heparin 5,000 Units injection 5,000 Units SUBCUTANEOUS EVERY 12 HOURS 04/21/18 0901 -- 04/14/18 2100 pneumatic compression stockings ([place]) 04/14/18 2100 activity - mobilize patient ([place]) VTE Prophylaxis: VTE prophylaxis appropriate SIGNATURE: Rasta Wilkinson MD PATIENT NAME: Lazaro Villafana DATE: April 23, 2018 TIME: 4:50 PM PAGER/CONTACT #: [email or web address] ICU STAFF -- DR. RAJAN REASON FOR ICU ADMISSION AND PERTINENT RECENT HISTORY Seriously ill 52 year old male requires supportive care in the SICU, off mechanical ventilation with no vasopressor support. He appears in no distress. CBC, Coags, BMP, Mg, Phos Recent Labs 04/23/18 1215 04/23/18 0206 04/22/18 1439 04/22/18 1217 04/22/18 1048 04/22/18 0855 04/22/18 0120 04/21/18 0206 WBC 8.05 7.48 -- -- -- -- 8.44 -- 9.75 HB 7.3* 7.5* -- -- -- -- 7.4* -- 7.7* HCT 23.1* 23.3* -- -- -- -- 23.0* -- 24.5* PLT 108* 96* -- -- -- -- 88* -- 82* INR 1.5* -- -- -- 1.4* -- -- -- -- APTT 35.4* -- -- -- -- -- -- -- -- NA -- 140 -- -- -- -- 140 -- 141 K -- 4.2 -- -- -- -- 4.3 -- 4.2 CHLOR -- 104 -- -- -- -- 105 -- 107* CO2 -- 25 -- -- -- -- 21* -- 21* BUN -- 54* -- -- -- -- 58* -- 61* CREAT -- 1.35* -- -- -- -- 1.45* -- 1.57* GLUC -- 235* -- -- -- -- 223* -- 247* IC -- -- 1.11 1.10 -- 1.16 -- < > -- CA -- 7.6* -- -- -- -- 7.5* -- 7.8* MG -- 1.8 -- -- -- -- 2.0 -- 2.1 P -- 3.2 -- -- -- -- 2.8 -- 2.4* < > = values in this interval not displayed. CSF AND Dilantin Liver Function, Amylase, AND Lipase Recent Labs 04/23/18 0206 04/22/18 1439 04/22/18 1217 04/22/18 0855 04/22/18 0120 04/21/18 0206 TPROT 6.2* -- -- -- 5.8* -- 5.6* ALB 2.3* -- -- -- 2.1* -- 2.2* ALT 23 -- -- -- 18 -- 17 AST 54* -- -- -- 51* -- 45* ALKPHOS 74 -- -- -- 72 -- 65 TBILI 0.7 -- -- -- 0.7 -- 0.8 LACT -- 1.4 1.3 1.0 -- < > -- < > = values in this interval not displayed. Cardiac Enzymes ABGs Recent Labs 04/22/18 1439 04/22/18 1217 04/22/18 0855 PH 7.42 7.38 7.39 PCO2 34 38 36 PO2 150* 138* 98* BE NEG 2 NEG 2 NEG 3 HCO3 22 22 22 CO2CT 23 23 23 O2HB 98 98 96 COHB 1.3 1.4 1.3 MHGB 0.4 0.4 0.7 TEMP 37.0 37.0 37.0 PHTC 7.42 7.38 7.39 PCO2T 34 38 36 PO2T 150 138 98 I have examined the patient with the Housestaff (see above) and reviewed lab data and x-rays. I have evaluated the hemodynamic and respiratory data, ECG, prescribed IV fluids, prescribed nutritional and/or metabolic support.This care required my full attention and direct personal management in prevention of imminent clinical deterioration. Thank you for letting us follow this patient. SIGNATURE: George Rajan MD, MSc DATE: April 23, 2018 TIME: 7:38 PM Previous Version Villa Thomas MD 04/24/2018 10:47 AM Addendum GENERAL SURGERY PROGRESS NOTE ASSESSMENT AND PLAN 52 year old male with PMHx type II DM, poorly controlled HTN, CKD, COPD, tobacco smoker 2-3 PPD, alcohol use disorder with recent diagnosis of cirrhosis w/ esophageal varices who presents on transfer from OSH with hematemesis s/p EGD at OSH c/b esophageal laceration that appears to be contained; MELD > 20. - Continue strict NPO - No surgical intervention planned - Follow Thoracic Surgery recommendations - CT Chest, follow pleural cultures - Repeat EGD next week to reassess esophageal tear + post- pyloric Corpak placement - Continue supportive/SICU care - trend labs Discussed with staff, *After 6pm and on weekends please page general surgery director of early childhood education [phone]* SUBJECTIVE/INTERVAL EVENTS VIPIN overnight No episodes of fever Continue worsening of R-hemithorax appearance on CXR with seemingly enlarging pleural effusion CT output 45 cc/24hrs OBJECTIVE BP 133/66 Pulse 90 Temp 36.8 ?C (98.2 ?F) (Oral) Resp 20 Ht 177.8 cm (5' 10) Wt 108.7 kg (239 lb 10.2 oz) SpO2 92% BMI 34.38 kg/m? Intake/Output Summary (Last 24 hours) at 04/23/18 0659 Last data filed at 04/23/18 0600 Gross per 24 hour Intake 3308.4 ml Output 3620 ml Net -311.6 ml General: alert, oriented, conversational CV: RRR Pulm: moderately labored breathing on room air Neck: no subQ emphysema/crepitus appreciated Abdomen: soft, non-distended Extremities: warm and well perfused Labs/Imaging: CBC, BMP, MG, PHOS Recent Labs 04/23/18 1215 04/23/18 0206 04/22/18 0120 04/21/18 02004/20/18 0134 WBC 8.05 7.48 8.44 9.75 < > 9.01 HB 7.3* 7.5* 7.4* 7.7* < > 8.0* HCT 23.1* 23.3* 23.0* 24.5* < > 24.9* PLT 108* 96* 88* 82* < > 74* NA -- 140 140 141 -- 143 K -- 4.2 4.3 4.2 -- 4.1 CHLOR -- 104 105 107* -- 111* CO2 -- 25 21* 21* -- 20* BUN -- 54* 58* 61* -- 57* CREAT -- 1.35* 1.45* 1.57* -- 1.50* GLUC -- 235* 223* 247* -- 219* CA -- 7.6* 7.5* 7.8* -- 7.7* MG -- 1.8 2.0 2.1 -- 2.0 P -- 3.2 2.8 2.4* -- 2.7 < > = values in this interval not displayed. Liver Function, Amylase, AND Lipase Recent Labs 04/23/18 0206 04/22/18 1439 04/22/18 1217 04/22/18 0855 04/22/18 0120 04/21/18 1252 04/21/18 0206 04/20/18 0134 TPROT 6.2* -- -- -- 5.8* -- 5.6* -- 5.1* ALB 2.3* -- -- -- 2.1* -- 2.2* -- 2.1* ALT 23 -- -- -- 18 -- 17 -- 14 AST 54* -- -- -- 51* -- 45* -- 37 ALKPHOS 74 -- -- -- 72 -- 65 -- 62 TBILI 0.7 -- -- -- 0.7 -- 0.8 -- 0.6 LACT -- 1.4 1.3 1.0 -- 1.2 -- < > -- < > = values in this interval not displayed. Coags Recent Labs 04/23/18 1215 04/22/18 1048 04/18/18 0002 04/17/18 0019 04/16/18 0031 APTT 35.4* -- 31.7 32.1 31.6 INR 1.5* 1.4* 1.3 1.3 1.4* Active Hospital Problems Diagnosis Date Noted - Coagulopathy (HCC) 04/22/2018 - Severe protein-calorie malnutrition (HCC) 04/22/2018 - Secondary thrombocytopenia 04/20/2018 - Acute post-operative pain 04/20/2018 - Acute respiratory insufficiency 04/20/2018 - Consolidation of right lower lobe of lung (HCC) 04/20/2018 - Secondary esophageal varices without bleeding (HCC) 04/20/2018 - Tobacco abuse 04/20/2018 - Acute blood loss anemia 04/20/2018 - Mediastinitis 04/20/2018 - Fever 04/20/2018 - Mild protein-calorie malnutrition (HCC) 04/17/2018 - Esophageal perforation 04/14/2018 - Alcoholic cirrhosis (HCC) 04/14/2018 - Hyperglycemia 04/14/2018 - COPD (chronic obstructive pulmonary disease) (HCC) 04/14/2018 Chronic Villa Thomas MD PGY-1, General Surgery Acute Care Surgery: [id number] Previous Version Francois Gann MD,PhD 04/24/2018 7:38 AM Signed [facility] THORACIC SURGERY CONSULT PROGRESS NOTE Lazaro Villafana [id number] PRIMARY SERVICE: HOSPITAL DAY: # 10 INTERVAL HISTORY No acute events overnight. Afebrile this morning. PHYSICAL EXAM BP 133/66 Pulse 90 Temp 36.8 ?C (98.2 ?F) (Oral) Resp 20 Ht 177.8 cm (5' 10) Wt 108.7 kg (239 lb 10.2 oz) SpO2 92% BMI 34.38 kg/m? Intake/Output Summary (Last 24 hours) at 04/24/18 0736 Last data filed at 04/24/18 0600 Gross per 24 hour Intake 2084 ml Output 2636 ml Net -552 ml ? Constitutional: No acute distress HEENT: EOM's intact Resp: Respiratory effort: normal Cardiovascular: Cardiac: Regular rate AND rhythm GI: Soft Integumentary: Warm Musculoskeletal: No deformities Neurological/Psychiatric: Alert Additional systems reviewed: No additional systems reviewed DATA Recent Labs 04/24/18 0441 04/23/18 1215 04/23/18 0206 WBC 8.99 8.05 7.48 HB 7.3* 7.3* 7.5* HCT 23.1* 23.1* 23.3* PLT 118* 108* 96* Recent Labs 04/24/18 0441 04/23/18 0206 04/22/18 0120 NA 145* 140 140 K 4.5 4.2 4.3 CO2 22 25 21* BUN 50* 54* 58* CREAT 1.13 1.35* 1.45* GLUC 165* 235* 223* MG 2.0 1.8 2.0 IMAGING I personally reviewed: CXR ASSESSMENT AND PLAN 52 year old male with multiple medical comorbidities now with likely partial thickness esophageal perforation, putatively from S-B tube placement at OSH. It is unlikely that this is the etiology of his massive hemoptysis, reportedly there were multiple varices that, in the background of cirrhosis is the likely etiology of his bleed. While he is requiring high doses of vasopressors, it is unlikely that the source of his shock is purely from his esophageal perforation given his lack of pleural effusion or free flowing contrast. 04/15 EGD showed 5cm esophageal laceration without active bleeding. 04/16 Right chest tube placed for effusion. 04/22 extubated. 04/22 Patient pulled NGT. ? Plan - CT chest repeat scan now that extubated and NGT is out - Pleural fluid culture ? ? Francois Gann MD,PhD Pager [phone] 04/24/2018 7:36 AM Isidra Chan, CT, CT 04/24/2018 9:02 AM Signed Radiology Service Progress Note PATIENT NAME: Lazaro Villafana DATE OF SERVICE: April 24, 2018 TIME: 9:02 AM PATIENT IDENTITY VERIFICATION COMPLETED USING TWO (2) METHODS: ID Band and Date of . PATIENT GENDER DATA: Male PATIENT RELEVANT IMPLANT DATA REVIEWED: Yes RADIOLOGY DEPARTMENT: CT; Exam(s) Completed: Chest PERIPHERAL IV DATA: Not applicable SIGNED BY: ANDRESSA Najera April 24, 2018 9:02 AM Rene Rajan MD 04/24/2018 8:32 PM Addendum SURGICAL INTENSIVE CARE UNIT PROGRESS NOTE SERVICE DATE: April 24, 2018 SERVICE TIME: 10:42 AM Subjective MrDagoberto Villafana is a 52-year-old male with PMHx type II DM, poorly controlled HTN, CKD, COPD, tobacco smoker 2-3 PPD, alcohol use disorder with recent diagnosis of cirrhosis was transferred from [facility] with an esophageal perforation seen on EGD. Patient initially presented with hematemesis and melena with accompanying dizziness and shortness of breath. Admitted to the SICU for surgical evaluation and hemodynamic monitoring. Overnight, complained of 10/10 pain but was laying comforrtably. This AM, patient complained of 10/10 frontal, sharp, constant, non- radiating HALL in addition to generalized body pains. Tylenol, fentanyl were given with relief this AM. Objective VITAL SIGNS Temp: 36.8 ?C (98.2 ?F) Pulse: 87 BP: 129/64 MAP Non Invasive (Mean Arterial Pressure): 90 Resp: 23 SpO2: 95 % Not applicable Current Facility-Administered Medications: labetalol 10 mg injection syringe (NORMODYNE) 10 mg INTRAVENOUS q 2 H PRN Parenteral Nutrition - Adult INTRAVENOUS ONCE TPN (0 START) insulin glargine 20 Units pen (long acting) (LANTUS SOLOSTAR, BASAGLAR KWIKPEN) 20 Units SUBCUTANEOUS AT BEDTIME vancomycin iv piggyback 1 g in D5W 200 mL (VANCOCIN) 1 g INTRAVENOUS q 12 HR aztreonam 2 g in D5W 100 mL MB+ (AZACTAM) 2 g INTRAVENOUS q 6 HR heparin 5,000 Units injection 5,000 Units SUBCUTANEOUS q 12 H fluconazole 400 mg in NaCl (iso-osmotic) 200 mL (DIFLUCAN) 400 mg INTRAVENOUS DAILY vancomycin dosing and monitoring per pharmacy OTHER As Directed insulin regular human injection (short acting) (NovoLIN R,HumuLIN R) SUBCUTANEOUS q 6 H potassium chloride iv piggyback 20 mEq/100 mL 20 mEq INTRAVENOUS PRN Or potassium chloride 20-80 mEq CUP 20-80 mEq ORAL/FEEDING TUBE PRN magnesium sulfate in water 2 g in sterile water 50 ml 2 g INTRAVENOUS PRN sodium glycerophosphate 15 mmol in D5W 250 mL (GLYCOPHOS) 15 mmol INTRAVENOUS PRN Or sodium glycerophosphate 30 mmol in D5W 250 mL (GLYCOPHOS) 30 mmol INTRAVENOUS PRN Or sodium glycerophosphate 45 mmol in D5W 250 mL (GLYCOPHOS) 45 mmol INTRAVENOUS PRN dextrose 40 % 15 g 15 g ORAL PRN Or glucagon 1 mg injection (GLUCAGEN) 1 mg INTRAMUSCULAR PRN Or dextrose 50 % 12.5 g injection 12.5 g INTRAVENOUS PRN acetaminophen 650 mg suppository (TYLENOL) 650 mg RECTAL q 4 H PRN lactated ringers infusion 5-30 mL/hr INTRAVENOUS CONTINUOUS NaCl 0.9% 3-5 mL 3-5 mL INTRAVENOUS q 12 H fentaNYL 50 mcg/mL 25-50 mcg injection (SUBLIMAZE) 25-50 mcg INTRAVENOUS q 1 H PRN Chlorhexidine Gluconate 0.12 % 15 mL (PERIDEX) 15 mL ORAL QID metroNIDAZOLE 500 mg PREMIX piggyback (FLAGYL) 500 mg INTRAVENOUS q 8 H ipratropium-albuterol 3 mL nebulizer solution (DUONEB) 3 mL INHALATION q 4 H PRN pantoprazole 40 mg injection (PROTONIX) 40 mg INTRAVENOUS BID AC (0600/1600) Cardiovascular: Regular rhythm Abdomen: Soft and Nontender Extremities: Mild pedal edema Neuro: Sedated Intake/Output Summary (Last 24 hours) at 04/24/18 1041 Last data filed at 04/24/18 1000 Gross per 24 hour Intake 2084 ml Output 2506 ml Net -422 ml Current Weight: Weight: 108 kg (238 lb 1.6 oz) Admission Weight: Weight: 106.1 kg (233 lb 14.5 oz) RESPIRATORY On NC 2 L Recent Labs 04/22/18 1439 04/22/18 1217 PH 7.42 7.38 PO2 150* 138* PCO2 34 38 BE NEG 2 NEG 2 HCO3 22 22 LACT 1.4 1.3 CXR Findings: 04/24/2018 IMPRESSION: Lines, tubes, and devices: ?Stable position of right IJ central venous catheter and right thoracostomy tube. Lungs and pleura: ?Low lung volumes. Small to medium-sized right pleural effusion present, extending into the interlobar fissures with pseudotumor appearance. ?Mixed alveolar and interstitial opacities within the lungs bilaterally are without significant change and most likely reflect a combination of pulmonary edema and atelectasis; component of infection/aspiration not excluded in appropriate clinical setting. No large pneumothorax. Cardiomediastinal silhouette: ?Stable cardiomediastinal silhouette. CT Chest Findings: 04/24/2018. IMPRESSION: 1. Small to medium-sized right loculated hydropneumothorax with associated right pleural thickening and adjacent right lower lobe atelectasis/consolidation (most likely due to infection), without significant change. Right thoracostomy tube stable in position. 2. Scattered ground-glass opacities within the upper lobes, new within the right upper lobe and stable to slightly decreased in the left upper lobe. These are most likely infectious/inflammatory in origin. Additional small ground-glass and small consolidative opacities within the inferior left lower lobe with adjacent centrilobular nodular opacities are most likely infectious and, in this location, may be related to aspiration. 3. Interval resolution of the left pleural effusion with overall decreased atelectasis in the left lower lobe. 4. Thoracic lymphadenopathy, likely reactive. 5. Known esophageal perforation; small locules of gas extending from the level of the distal esophagus into the right pleural space (images 90-93) may correspond to the site of perforation. INFUSION(S): none Patient Lines Assessed: Lines, Drains, and Airways Line Arterial Line 04/14/18 2320 Arterial Line Left Radial 9 days Central Line Triple Lumen 04/14/18 2319 Non-tunneled Right Neck 9 days Peripheral 04/14/18 2344 Left Antecubital 18 Gauge 9 days Drain Indwelling Urinary Catheter 04/14/182113 Admission to Hospital [facility] 9 days Chest Tube 04/16/18 2100 Right 28 Fr 7 days Diagnostic tests reviewed for today's visit: Most recent labs and imaging results. Assessment/Plan Neuro:? AOx3, extubated, comfortable - prn tylenol, prn fentanyl for pain - added lidocaine patch for chest tube pain - will try IV tylenol and access pain afterwards ?CV:? -- HDS. -- Goal MAP >65 -- No vasopressors ? Pulm:? ?Hx of COPD. Stable respiratory fn on RA -- duonebs prn -- Monitor chest tube output - will send pleural fluid for Cx -- Continue RT treatments -- CXR 04/24: Low lung volumes. Small to medium-sized right pleural Effusion. Mixed alveolar and interstitial opacities within the lungs bilaterally are without significant change. NO PTX -- CT chest 04/24: Scattered ground-glass opacities within the upper lobes, new within the RUL and stable to slightly decreased in the CADEN. Additional small ground-glass and small consolidative opacities within the inferior left lower lobe with adjacent centrilobular nodular opacities -will order 2 doses of mucomyst due to thick secretions ? Renal:??(baseline Cr ~1.2 from 02/2018) -- stable kidney function, good UOP --Monitor Cr and I/Os --[facility] continue ? GI:? Likely partial thickness esophageal perforation. Presented from OSH on 04/14 with hematemesis, melena dizziness and SOB. EtOH cirrhosis with portal HTN, grade 2 esophageal varices -- mid distal esophageal tear -- not amenable to esophageal stenting --NPO - thoracic to re-eval for CLD early next week pending results of CT scan --NGT removed by patient (04/22) --no need to replace NGT per thoracic (do not place blindly) -- CT Chest 04/24: Known esophageal perforation; small locules of gas extending from the level of the distal esophagus into the right pleural space (images 90-93) may correspond to the site of perforation. -- will f/u with thoracic surgery ? Heme:? -- Hgb 7.3 (stable) -- thrombocytopenia. Will watch for signs of bleeding and need?for further transfusion --Transfuse to keep Hgb >7 - SQH ? Fluid/Electrolyte/Nutrition: --NPO --Replete lytes as one time dosing -- TPN ? Endo:? Hx of IDDM, HgbA1c 8.2. - BG goal 130-180; BG this AM 171 - continue lantus 20 units - Sliding scale insulin Scale 3 -- Nutrition will adjust lantus in TF ? ID:?Esohageal tear and perforation. aztreonam and flagyl at OSH -Intermittent low grade fevers - MSSA PCR positive - MRSA PCR negative - Started Vancomycin per ID recs to cover for GPC - transitioned cefepnie to aztreonam 04/22 - on aztreonam, fluconazole, flagyl, vanco - allergy consult for skin test - negative - tolerated cefepime - ID following, appreciate recs ? PPX:? - GI ppx - pantoprazole - VTE ppx - 5k u BID ? PLAN: - s/p NGT (pulled by patient). Cannot blindly place. Will re-evaluate early next week for sips/CLD - will f/u with thoracic regarding CT chest findings - added lidocaine patch for chest tube pain - will try IV tylenol and access pain afterwards - will order 2 doses of mucomyst due to thick secretions Medication and Non-Pharmacologic VTE Prophylaxis/Anticoagulants Anticoagulant AND Antiplatelet Medications Start Dose Route Frequency Ordered Stop 04/21/18 0930 heparin 5,000 Units injection 5,000 Units SUBCUTANEOUS EVERY 12 HOURS 04/21/18 0901 -- 04/14/18 2100 pneumatic compression stockings ([place]) 04/14/18 2100 activity - mobilize patient ([place]) VTE Prophylaxis: VTE prophylaxis appropriate SIGNATURE: Joanne Cabral MD PATIENT NAME: Lazaro Villafana DATE: April 24, 2018 TIME: 10:41 AM PAGER/CONTACT #: [id number] ICU STAFF -- DR. RAJAN REASON FOR ICU ADMISSION AND PERTINENT RECENT HISTORY This 52 year old male has required SICU support for esophageal perforation with sepsis on antibiotic therapy. I have examined the patient with the Housestaff (see above) and reviewed lab data and x-rays. I have evaluated the hemodynamic and respiratory data, ECG, prescribed IV fluids, assessed antibiotic therapy, prescribed nutritional and/or metabolic support.This care required my full attention and direct personal management in prevention of imminent clinical deterioration. SIGNATURE: George Rajan MD DATE: April 24, 2018 TIME: 8:29 PM Previous Version Francois Gann MD,PhD 04/25/2018 3:01 PM Addendum [facility] THORACIC SURGERY CONSULT PROGRESS NOTE Lazaro Villafana [id number] PRIMARY SERVICE: HOSPITAL DAY: # 11 INTERVAL HISTORY No acute events overnight. PHYSICAL EXAM BP 157/84 Pulse 104 Temp 37.7 ?C (99.8 ?F) Resp 21 Ht 177.8 cm (5' 10) Wt 108.7 kg (239 lb 10.2 oz) SpO2 95% BMI 34.38 kg/m? Intake/Output Summary (Last 24 hours) at 04/25/18 05 Last data filed at 04/25/18 0500 Gross per 24 hour Intake 1758 ml Output 2655 ml Net -897 ml Constitutional: No acute distress HEENT: EOM's intact Resp: Respiratory effort: normal, CT SS, no air leak, on suction Cardiovascular: Cardiac: Regular rate AND rhythm Integumentary: Warm Musculoskeletal: No deformities Neurological/Psychiatric: Alert Additional systems reviewed: No additional systems reviewed DATA Recent Labs 04/25/18 02104/24/18 0441 04/23/18 1215 WBC 8.65 8.99 8.05 HB 7.4* 7.3* 7.3* HCT 23.5* 23.1* 23.1* PLT 131* 118* 108* Recent Labs 04/25/1821404/24/18 0441 04/23/18 0206 NA 147* 145* 140 K 4.4 4.5 4.2 CO2 24 22 25 BUN 45* 50* 54* CREAT 1.06 1.13 1.35* GLUC 157* 165* 235* MG 1.9 2.0 1.8 IMAGING I personally reviewed: CXR, 04/25 in process, will f/u ASSESSMENT AND PLAN 52 year old male with multiple medical comorbidities now with likely partial thickness esophageal perforation, putatively from S-B tube placement at OSH. It is unlikely that this is the etiology of his massive hemoptysis, reportedly there were multiple varices that, in the background of cirrhosis is the likely etiology of his bleed. While he is requiring high doses of vasopressors, it is unlikely that the source of his shock is purely from his esophageal perforation given his lack of pleural effusion or free flowing contrast. 04/15 EGD showed 5cm esophageal laceration without active bleeding. 04/16 Right chest tube placed for effusion. 04/22 extubated. 04/22 Patient pulled NGT. ? Plan - daily CXR - will pull back chest tube - esophagram today ? Francois Gann MD,PhD Pager [phone] 04/25/2018 5:52 AM Previous Version Leena Li MD 04/25/2018 1:30 PM Signed INFECTIOUS DISEASES PROGRESS NOTE Patient Name: Lazaro Villafana Account #: Data Unavailable Admission Date: 04/14/2018 Date of Evaluation: 04/25/2018 Time of Evaluation: 10:20 AM INTERVAL HPI: No acute events overnight. Ongoing known mediastinitis confirmed on repeat CT chest 04/21/18, no surgical intervention planned at this time. Possible repeat EGD this week. Extubated 04/22/18. Pulled out NGT 04/22/18. On TPN for nutrition, project 2 weeks of NPO status until esophageal perforation may have healed. Afebrile for majority of the weekend on tylenol, but break- through fever to 100.9F overnight. Stable leukocytosis. Fluconazole increased to 400 mg IV daily 04/22/18. Cefepime switched for aztreonam 04/22/18. MEDICATIONS: Current hospital medications: Parenteral Nutrition - Adult INTRAVENOUS ONCE TPN (2200 START) lidocaine 5 % 1 Patch (LIDODERM) 1 Patch TRANSDERMAL DAILY lidocaine patch - REMOVE OTHER AT BEDTIME lidocaine - VERIFY PATCH OTHER q 8 H labetalol 10 mg injection syringe (NORMODYNE) 10 mg INTRAVENOUS q 2 H PRN insulin glargine 20 Units pen (long acting) (LANTUS SOLOSTAR, BASAGLAR KWIKPEN) 20 Units SUBCUTANEOUS AT BEDTIME vancomycin iv piggyback 1 g in D5W 200 mL (VANCOCIN) 1 g INTRAVENOUS q 12 HR aztreonam 2 g in D5W 100 mL MB+ (AZACTAM) 2 g INTRAVENOUS q 6 HR heparin 5,000 Units injection 5,000 Units SUBCUTANEOUS q 12 H fluconazole 400 mg in NaCl (iso-osmotic) 200 mL (DIFLUCAN) 400 mg INTRAVENOUS DAILY vancomycin dosing and monitoring per pharmacy OTHER As Directed insulin regular human injection (short acting) (NovoLIN R,HumuLIN R) SUBCUTANEOUS q 6 H potassium chloride iv piggyback 20 mEq/100 mL 20 mEq INTRAVENOUS PRN potassium chloride 20-80 mEq CUP 20-80 mEq ORAL/FEEDING TUBE PRN magnesium sulfate in water 2 g in sterile water 50 ml 2 g INTRAVENOUS PRN sodium glycerophosphate 15 mmol in D5W 250 mL (GLYCOPHOS) 15 mmol INTRAVENOUS PRN sodium glycerophosphate 30 mmol in D5W 250 mL (GLYCOPHOS) 30 mmol INTRAVENOUS PRN sodium glycerophosphate 45 mmol in D5W 250 mL (GLYCOPHOS) 45 mmol INTRAVENOUS PRN dextrose 40 % 15 g 15 g ORAL PRN glucagon 1 mg injection (GLUCAGEN) 1 mg INTRAMUSCULAR PRN dextrose 50 % 12.5 g injection 12.5 g INTRAVENOUS PRN acetaminophen 650 mg suppository (TYLENOL) 650 mg RECTAL q 4 H PRN lactated ringers infusion 5-30 mL/hr INTRAVENOUS CONTINUOUS NaCl 0.9% 3-5 mL 3-5 mL INTRAVENOUS q 12 H fentaNYL 50 mcg/mL 25-50 mcg injection (SUBLIMAZE) 25-50 mcg INTRAVENOUS q 1 H PRN metroNIDAZOLE 500 mg PREMIX piggyback (FLAGYL) 500 mg INTRAVENOUS q 8 H ipratropium-albuterol 3 mL nebulizer solution (DUONEB) 3 mL INHALATION q 4 H PRN pantoprazole 40 mg injection (PROTONIX) 40 mg INTRAVENOUS BID AC (599/1599) PHYSICAL EXAM: BP 151/75 Pulse 104 Temp 37.7 ?C (99.8 ?F) Resp 24 Ht 177.8 cm (5' 10) Wt 108.7 kg (239 lb 10.2 oz) SpO2 96% BMI 34.38 kg/m? Lines: Nontunnelled triple lumen 04/14 in R neck ?GEN: Patient is much improved from last week, interactive, engaged SKIN: No lesions noted. EYES: PERRLA NECK: R nontunnelled triple lumen catheter with no overlying erythema, swelling or warmth. LUNGS: clear to auscultation, no wheezes, or crackles. HEART: ?Regular rate/rhythm, normal heart sounds, and no murmurs. ABDOMEN: Soft, epigastric tenderness, hypoactive BS EXTREMITIES: Edema of hands b/l, no LE edema. Labs: WBC 8.65, Hgb 7.4, Plt 131, Cr 1.06 -249 cc/24 hours Micro and radiology personally reviewed 04/14/18: Quantiferon gold testing negative for TB 04/14/18: Blood cultures 04/19 no growth 04/14/18: MSSA nasal swab positive 04/17/18: MSSA nasal swab positive 04/17/18: Blood cultures 2/2 no growth 04/20/18: Blood cultures 2/2 no growth 04/20/18: Tracheal aspirate cultures no organisms on gram stain and no growth on culture 04/22/18: Fungitell negative 04/23/18: Sputum cultures no growth so far 04/24/18: Staphylococcal nasal swab negative CT Chest 04/17/18: IMPRESSION: 1. ?NEW MULTIFOCAL CONSOLIDATIVE/GROUNDGLASS OPACITIES PREDOMINANTLY LEFT UPPER LOBE AND LINGULA, MAY REPRESENT MULTIFOCAL PNEUMONIA/ASPIRATION PNEUMONITIS, HEMORRHAGE OR ASYMMETRIC EDEMA. ?RADIOGRAPHIC FOLLOW-UP IS RECOMMENDED.. 2. ?BILATERAL LOWER LOBE AIRSPACE OPACITIES WITH VOLUME LOSS, RIGHT GREATER THAN LEFT, MOST LIKELY ATELECTASIS WITH POSSIBLE SUPERIMPOSED INFECTIOUS PROCESS. 3. ?LIMITED EVALUATION OF PREVIOUSLY SEEN MID ESOPHAGEAL CONTRAST EXTRAVASATION/TEAR. ?SMALL FOCI OF RIGHT-SIDED PNEUMOMEDIASTINUM, NOT SIGNIFICANTLY CHANGED. ?SMALL FOCI OF PNEUMOMEDIASTINUM HAVE DEVELOPED SUPERIORLY. ?THESE COULD BE FROM RECENT INTERVENTION. 4. SMALL BILATERAL PLEURAL COLLECTIONS HAVE SLIGHTLY INCREASED COMPARED TO PRIOR EXAM. ?THE AIR COMPONENTS OF THE RIGHT PLEURAL COLLECTION ARE NEW SINCE PREVIOUS EXAM, LIKELY RELATED TO ?INTERVAL PLACEMENT OF RIGHT APICAL CHEST TUBE. US upper extremities 04/20/18: IMPRESSION ? RIGHT SIDE - DEEP VEINS Technically limited study. Negative for acute deep vein thrombosis in vessels visualized. Unable to visualize the internal jugular vein due to IV lines and bandages. RIGHT SIDE - SUPERFICIAL VEINS Acute superficial thrombophlebitis in the cephalic vein antecubital fossa to wrist. Acute superficial thrombophlebitis in the basilic vein mid upper arm to wrist. Acute superficial thrombophlebitis in the median cubital vein at the antecubital fossa. ? LEFT SIDE - DEEP VEINS Spontaneous and respirophasic flow noted in the subclavian vein at proximal. CT Chest 04/21/18: IMPRESSION: 1. ?Unchanged right hydropneumothorax with right thoracostomy tube and associated right lower lobe atelectasis. ?Superimposed infection/aspiration cannot be excluded. 2. ?Groundglass opacities in the left upper lobe and lingula, likely infectious/inflammatory. ?Left apical consolidation has decreased since the prior exam. 3. ?Circumferential wall thickening of the esophagus. ?Known esophageal tear is not visualized on this examination. 4. ?Mediastinal lymphadenopathy, likely reactive. CT Chest 04/24/18: IMPRESSION: 1. Small to medium-sized right loculated hydropneumothorax with associated right pleural thickening and adjacent right lower lobe atelectasis/consolidation (most likely due to infection), without significant change. Right thoracostomy tube stable in position. 2. Scattered ground-glass opacities within the upper lobes, new within the right upper lobe and stable to slightly decreased in the left upper lobe. These are most likely infectious/inflammatory in origin. Additional small ground-glass and small consolidative opacities within the inferior left lower lobe with adjacent centrilobular nodular opacities are most likely infectious and, in this location, may be related to aspiration. 3. Interval resolution of the left pleural effusion with overall decreased atelectasis in the left lower lobe. 4. Thoracic lymphadenopathy, likely reactive. 5. Known esophageal perforation; small locules of gas extending from the level of the distal esophagus into the right pleural space (images 90-93) may correspond to the site of perforation. ? IMPRESSION / PLAN 52 yo M with a h/o cirrhosis, EtoH related, CKD, COPD and reported + PPD in the past. Currently no clinical or imaging evidence of active pulmonary TB. Presenting with hemorrhagic shock secondary to hematemesis/esophageal tear c/b pneumomediastinum; no surgical intervention planned at this time. Plan: - continue vancomycin (goal trough 15-25), aztreonam, metronidazole, fluconazole as ordered for now Discussed with attending, Perla Delgado PGY4 [facility] STAFF PHYSICIAN NOTE OF PERSONAL INVOLVEMENT IN CARE Events reviewed. Patient examined. Findings as outlined in the fellow's note above. Jang elements verified. ? Relevant lab data, microbiology and imaging data reviewed. Relevant images personally reviewed. ? Agree with assessment and plan as outlined in the fellow's note above. I was physically present for the critical portions of the service provided by the ID team. The management plan reflects my input. ? Marguerite Li MD Staff, Department of Infectious Disease Pager: [phone] Previous Version Villa Thomas MD 04/25/2018 7:27 AM Signed GENERAL SURGERY PROGRESS NOTE ASSESSMENT AND PLAN 52 year old male with PMHx type II DM, poorly controlled HTN, CKD, COPD, tobacco smoker 2-3 PPD, alcohol use disorder with recent diagnosis of cirrhosis w/ esophageal varices who presents on transfer from OSH with hematemesis s/p EGD at OSH c/b esophageal laceration that appears to be contained; MELD > 20, currently with R-sided chest tube for hydropneumothorax, NPO and on TPN. - Continue strict NPO - No surgical intervention planned - Follow Thoracic Surgery recommendations - Need to discuss potential need for upsizing R chest tube versus TPA given minimal CT output and persistent loculated R hydropneumothorax on 04/24 CT Chest - Repeat EGD this week to reassess esophageal tear + post- pyloric Corpak placement - Pleural cultures from 04/23 thus far negative; will continue to follow - Continue supportive/SICU care - trend labs To be discussed with staff, *After 6pm and on weekends please page general surgery director of early childhood education [phone]* SUBJECTIVE/INTERVAL EVENTS VIPIN overnight Febrile to 38.8 CT output 15 cc/24hrs BMx2 Persistent pain at CT site OBJECTIVE BP 141/74 Pulse 101 Temp 37.7 ?C (99.8 ?F) Resp 23 Ht 177.8 cm (5' 10) Wt 105.8 kg (233 lb 4 oz) SpO2 93% BMI 33.47 kg/m? Intake/Output Summary (Last 24 hours) at 04/25/18 0659 Last data filed at 04/25/18 0600 Gross per 24 hour Intake 3042 ml Output 2661 ml Net 381 ml General: alert, oriented, conversational CV: RRR Pulm: moderately labored breathing on room air Neck: no subQ emphysema/crepitus appreciated Abdomen: soft, non-distended Extremities: warm and well perfused Labs/Imaging: CBC, BMP, MG, PHOS Recent Labs 04/25/18 0215 04/24/18 0441 04/23/18 1215 04/23/18 0206 04/22/18 0120 WBC 8.65 8.99 8.05 7.48 8.44 HB 7.4* 7.3* 7.3* 7.5* 7.4* HCT 23.5* 23.1* 23.1* 23.3* 23.0* PLT 131* 118* 108* 96* 88* NA 147* 145* -- 140 140 K 4.4 4.5 -- 4.2 4.3 CHLOR 113* 111* -- 104 105 CO2 24 22 -- 25 21* BUN 45* 50* -- 54* 58* CREAT 1.06 1.13 -- 1.35* 1.45* GLUC 157* 165* -- 235* 223* CA 8.0* 8.0* -- 7.6* 7.5* MG 1.9 2.0 -- 1.8 2.0 P 2.8 2.7 -- 3.2 2.8 Liver Function, Amylase, AND Lipase Recent Labs 04/23/18 0206 04/22/18 1439 04/22/18 1217 04/22/18 0855 04/22/18 0120 04/21/18 1252 04/21/18 0206 04/20/18 0134 TPROT 6.2* -- -- -- 5.8* -- 5.6* -- 5.1* ALB 2.3* -- -- -- 2.1* -- 2.2* -- 2.1* ALT 23 -- -- -- 18 -- 17 -- 14 AST 54* -- -- -- 51* -- 45* -- 37 ALKPHOS 74 -- -- -- 72 -- 65 -- 62 TBILI 0.7 -- -- -- 0.7 -- 0.8 -- 0.6 LACT -- 1.4 1.3 1.0 -- 1.2 -- < > -- < > = values in this interval not displayed. Coags Recent Labs 04/25/18 0215 04/23/18 1215 04/22/18 1048 04/18/18 0002 04/17/18 0019 04/16/18 0031 APTT -- 35.4* -- 31.7 32.1 31.6 INR 1.5* 1.5* 1.4* 1.3 1.3 1.4* Active Hospital Problems Diagnosis Date Noted - Coagulopathy (HCC) 04/22/2018 - Severe protein-calorie malnutrition (HCC) 04/22/2018 - Secondary thrombocytopenia 04/20/2018 - Acute post-operative pain 04/20/2018 - Acute respiratory insufficiency 04/20/2018 - Consolidation of right lower lobe of lung (HCC) 04/20/2018 - Secondary esophageal varices without bleeding (HCC) 04/20/2018 - Tobacco abuse 04/20/2018 - Acute blood loss anemia 04/20/2018 - Mediastinitis 04/20/2018 - Fever 04/20/2018 - Mild protein-calorie malnutrition (HCC) 04/17/2018 - Esophageal perforation 04/14/2018 - Alcoholic cirrhosis (HCC) 04/14/2018 - Hyperglycemia 04/14/2018 - COPD (chronic obstructive pulmonary disease) (HCC) 04/14/2018 Chronic Villa Thomas MD PGY-1, General Surgery Acute Care Surgery: [id number] Rai Kramer RN, RN 04/25/2018 9:03 AM Signed CARE MANAGEMENT PROGRESS NOTE SERVICE DATE: 04/25/2018 SERVICE TIME: 9:01 AM LOS: 11 days Patient remains in SICU now extubated and stable on room air. Continues on TPN and with right chest tube. Per Surgery may need upsizing of chest tube vs TPA and also plan repeat EGD this week to reassess esophageal tear and place post pyloric Corpak. Laser Specialist to follow for discharge planning pending POC and medical stability. Needs Prior to Discharge: To Be Determined SIGNATURE: Ria Kramer RN PATIENT NAME: Lazaro Villafana DATE: April 25, 2018 TIME: 9:01 AM PAGER/CONTACT #: [phone] Gloria Crawford MD, MD 04/25/2018 12:06 PM Attested Attestation signed by Rosa Maria Gan at 04/25/2018 2:54 PM I have seen and reviewed the patient today, including physical examination at bedside with the SICU Housestaff and verifying the findings (see resident's documentation of physical exam; relevant history); reviewing labs, Xrays; discussing with primary physician and consultants; and developing plan of care with the bedside nurse. This care required my full attention and direct personal management in prevention of imminent clinical deterioration. [LEVEL III] REASON FOR SICU ADMISSION AND PERTINENT RECENT HISTORY: 52 year old man with history of T2DM, HTN, COPD, CKD, alcohol/tobacco abuse, liver cirrhosis with esophageal varices who presented to [facility] after developing a partial thickness esophageal perforation. Initially required intubation, has now been extubated. CURRENTLY: Patient continues to be febrile intermittently. Had CT chest done on 04/24/18 - showed right sided hydropneumothorax, RLL consolidation. He continues to complain of pain at the R chest tube site, but is otherwise clinically improved. Maintain O2 sats > 92% on RA vs. 2L NC. He remains NPO given esophageal perforation and is receiving TPN. DAILY ASSESSMENTS: Restraints -Unnecessary Central Access -Necessary. Personal evaluation has established that ongoing need exists for TPN, IV antibiotics Sedation interruption -Not applicable Continued need for urinary catheter: D/C Urinary Catheter IMPRESSION AND PLAN: 52 year old man with unrepaired partial thickness esophageal perforation. Has ongoing mediastinitis with fevers and purulent chest tube output as well as hydropneumothorax on chest CT. Is receiving appropriate antibiotic therapy. Stable and clinically improved from a cardiac and pulmonary standpoint. No pressors, on minimal O2 requirement. Acute post-operative pain: ordered scheduled IV acetaminophen x3 doses. Continuing to receive IV fentanyl PRN, has lidocaine patches over chest tube site as well Hypertension: started IV metoprolol today Acute respiratory insufficiency, RLL lung consolidation, COPD: doing well on RA to 2L NC currently. Will encourage IS use, ambulation, out of bed Mediastinitis related to esophageal perforation: continues to have fevers. Continue aztreonam, fluconazole, flagyl, vancomycin. Thoracic surgery, general surgery, and GI following. Patient to have repeat EGD this week T2DM: SSI, target blood glucose < 200 Severe protein-calorie malnutrition: patient TPN-dependent, strict NPO. Prophy: Protonix, SQH Lines: patient's central line is 10 days old. Will plan on PICC line placement once fevers resolve. Discontinuing mcclain catheter today. SIGNATURE:Rosa Maria Gan MD DATE:April 25, 2018 TIME:2:42 PM SURGICAL INTENSIVE CARE UNIT PROGRESS NOTE SERVICE DATE: April 25, 2018 SERVICE TIME: 9:15 AM Subjective No overnight events. CT ouput in last 24 hrs - 40cc. Complaining of abdominal pain, having BM. Developed fever to 38.3 overnight. No leukocytosis and blood cultures with NGTD. Objective VITAL SIGNS Temp: 37 ?C (98.6 ?F) Pulse: 101 BP: 141/74 MAP Non Invasive (Mean Arterial Pressure): 101 Resp: 23 SpO2: 93 % Not applicable Current Facility-Administered Medications: Parenteral Nutrition - Adult INTRAVENOUS ONCE TPN (2199 START) lidocaine 5 % 1 Patch (LIDODERM) 1 Patch TRANSDERMAL DAILY And lidocaine patch - REMOVE OTHER AT BEDTIME And lidocaine - VERIFY PATCH OTHER q 8 H labetalol 10 mg injection syringe (NORMODYNE) 10 mg INTRAVENOUS q 2 H PRN insulin glargine 20 Units pen (long acting) (LANTUS SOLOSTAR, BASAGLAR KWIKPEN) 20 Units SUBCUTANEOUS AT BEDTIME vancomycin iv piggyback 1 g in D5W 200 mL (VANCOCIN) 1 g INTRAVENOUS q 12 HR aztreonam 2 g in D5W 100 mL MB+ (AZACTAM) 2 g INTRAVENOUS q 6 HR heparin 5,000 Units injection 5,000 Units SUBCUTANEOUS q 12 H fluconazole 400 mg in NaCl (iso-osmotic) 200 mL (DIFLUCAN) 400 mg INTRAVENOUS DAILY vancomycin dosing and monitoring per pharmacy OTHER As Directed insulin regular human injection (short acting) (NovoLIN R,HumuLIN R) SUBCUTANEOUS q 6 H potassium chloride iv piggyback 20 mEq/100 mL 20 mEq INTRAVENOUS PRN Or potassium chloride 20-80 mEq CUP 20-80 mEq ORAL/FEEDING TUBE PRN magnesium sulfate in water 2 g in sterile water 50 ml 2 g INTRAVENOUS PRN sodium glycerophosphate 15 mmol in D5W 250 mL (GLYCOPHOS) 15 mmol INTRAVENOUS PRN Or sodium glycerophosphate 30 mmol in D5W 250 mL (GLYCOPHOS) 30 mmol INTRAVENOUS PRN Or sodium glycerophosphate 45 mmol in D5W 250 mL (GLYCOPHOS) 45 mmol INTRAVENOUS PRN dextrose 40 % 15 g 15 g ORAL PRN Or glucagon 1 mg injection (GLUCAGEN) 1 mg INTRAMUSCULAR PRN Or dextrose 50 % 12.5 g injection 12.5 g INTRAVENOUS PRN acetaminophen 650 mg suppository (TYLENOL) 650 mg RECTAL q 4 H PRN lactated ringers infusion 5-30 mL/hr INTRAVENOUS CONTINUOUS NaCl 0.9% 3-5 mL 3-5 mL INTRAVENOUS q 12 H fentaNYL 50 mcg/mL 25-50 mcg injection (SUBLIMAZE) 25-50 mcg INTRAVENOUS q 1 H PRN metroNIDAZOLE 500 mg PREMIX piggyback (FLAGYL) 500 mg INTRAVENOUS q 8 H ipratropium-albuterol 3 mL nebulizer solution (DUONEB) 3 mL INHALATION q 4 H PRN pantoprazole 40 mg injection (PROTONIX) 40 mg INTRAVENOUS BID AC (0600/1600) Cardiovascular: Regular rhythm Abdomen: Soft and Nontender Extremities: Mild pedal edema Neuro: Sedated Intake/Output Summary (Last 24 hours) at 04/25/18 0917 Last data filed at 04/25/18 0700 Gross per 24 hour Intake 3042 ml Output 2541 ml Net 501 ml Current Weight: Weight: 105.8 kg (233 lb) Admission Weight: Weight: 106.1 kg (233 lb 14.5 oz) RESPIRATORY On RA Recent Labs 04/22/18 1439 04/22/18 1217 PH 7.42 7.38 PO2 150* 138* PCO2 34 38 BE NEG 2 NEG 2 HCO3 22 22 LACT 1.4 1.3 CXR Findings: 04/25/2018 IMPRESSION: Lines, tubes, and devices: ?Unchanged Lungs and pleura: ?Right pleural effusion and basilar atelectasis unchanged. ?Perihilar infiltrate unchanged from atelectasis or pneumonia Cardiomediastinal silhouette: ?Stable cardiomegaly CT Chest Findings: 04/24/2018. IMPRESSION: 1. Small to medium-sized right loculated hydropneumothorax with associated right pleural thickening and adjacent right lower lobe atelectasis/consolidation (most likely due to infection), without significant change. Right thoracostomy tube stable in position. 2. Scattered ground-glass opacities within the upper lobes, new within the right upper lobe and stable to slightly decreased in the left upper lobe. These are most likely infectious/inflammatory in origin. Additional small ground-glass and small consolidative opacities within the inferior left lower lobe with adjacent centrilobular nodular opacities are most likely infectious and, in this location, may be related to aspiration. 3. Interval resolution of the left pleural effusion with overall decreased atelectasis in the left lower lobe. 4. Thoracic lymphadenopathy, likely reactive. 5. Known esophageal perforation; small locules of gas extending from the level of the distal esophagus into the right pleural space (images 90-93) may correspond to the site of perforation. INFUSION(S): none Patient Lines Assessed: Lines, Drains, and Airways Line Arterial Line 04/14/18 2320 Arterial Line Left Radial 10 days Central Line Triple Lumen 04/14/18 2319 Non-tunneled Right Neck 10 days Peripheral 04/14/18 2344 Left Antecubital 18 Gauge 10 days Drain Indwelling Urinary Catheter 04/14/184 Admission to Hospital [facility] 10 days Chest Tube 04/16/18 2100 Right 28 Fr 8 days Diagnostic tests reviewed for today's visit: Most recent labs and imaging results. Assessment/Plan Neuro:? AANDOx3, extubated, complaining of HALL -- prn fentanyl for pain -- will do IV tylenol again today -- continue lidocaine patch ?CV:? Hx of HTN on losartan and amlodipine at home. -- HDS off pressors -- prn labetalol for HTN -- will add scheduled metoprolol 5mg q6h until able to restart home PO meds ? Pulm:? Hx of COPD. Stable respiratory fxn on RA. CT chest with loculated R pleural effusion. CXR today with R pleural effusion unchanged. -- duonebs prn -- monitor chest tube output; will follow up with thoracic regarding chest tube plans Renal:??(baseline Cr ~1.2 from 02/2018) -- stable kidney function, good UOP -- will d/c [facility] ? GI:? Likely partial thickness mid-distal esophageal perforation, not amenable to stenting. EtOH cirrhosis with portal HTN, grade [address] Chest 04/24: Known esophageal perforation; small locules of gas extending from the level of the distal esophagus into the right pleural space (images 90-93) may correspond to the site of perforation. -- NPO -- NGT removed by patient (04/22); no need to replace NGT per thoracic (do not place blindly) -- repeat EGD ordered ? Heme:? -- Hgb 7.4 (stable) -- Transfuse to keep Hgb >7 -- SQH ? Fluid/Electrolyte/Nutrition: -- NPO -- Replete lytes as needed -- TPN ? Endo:? Hx of IDDM, HgbA1c 8.2. -- Continue lantus 20 units qHS -- ISS3 -- Nutrition will adjust lantus in TF ? ID:?Esophageal tear and perforation. Aztreonam and flagyl at OSH. -- Intermittent low grade fevers -- MSSA PCR positive, MRSA PCR negative -- Started Vancomycin on 04/22 per ID recs to cover for GPC -- transitioned cefepime to aztreonam 04/22 -- also on fluconazole (started 04/22), flagyl (started 04/14) -- allergy consult for skin test - negative - tolerated cefepime -- ID following, appreciate recs ? PPX:? -- GI ppx - pantoprazole given GI bleed -- VTE ppx - 5000u BID Medication and Non-Pharmacologic VTE Prophylaxis/Anticoagulants Anticoagulant AND Antiplatelet Medications Start Dose Route Frequency Ordered Stop 04/21/18 0930 heparin 5,000 Units injection 5,000 Units SUBCUTANEOUS EVERY 12 HOURS 04/21/18 0901 -- 04/14/18 2100 pneumatic compression stockings (nc,ut) 04/14/18 2100 activity - mobilize patient ([place]) VTE Prophylaxis: VTE prophylaxis appropriate SIGNATURE: Gloria Crawford MD PATIENT NAME: Lazaro Villafana DATE: April 25, 2018 TIME: 9:15 AM PAGER/CONTACT #: [phone] Previous Version Tenisha Salazar, RN, RN 04/25/2018 10:15 AM Signed Lazaro Villafana is a 52 year old male patient. Consulted to insert DL PICC for PANCHITO including TPN.Pt febrile last night to 38.8 and currently febrile per EPIC. PICC contraindicated in febrile pt. Can insert MIDLINE, but not appropriate for TPN. paged ordering practitioner re: above. Thank you Tenisha Salazar, RN Sari Weston RD LD CNSC 04/25/2018 12:45 PM Signed NUTRITION SUPPORT TEAM PROGRESS NOTE SERVICE DATE: 04/25/2018 SERVICE TIME: 937 RECOMMENDED DIAGNOSIS: MILD PROTEIN-CALORIE MALNUTRITION per Registered Dietitian on 04/17/2018 NUTRITION CARE PLAN Intervention: 1. ?Continue TPN and increase to minimum goal calories with incr volume ?- PN to provide 120gms 15% AA, 1120 dextrose calories, 1680ml at 70ml/hr ?- orders pended with incr MgSO4, incr KPhos, incr NaPhos, reduced na+ acetate, MVI, MTE, 85u insulin (1:4?ratio), 100mg thiamine ?- as able increase dextrose calories 2. ?Defer 250ml IVPB lipids 20% fat emulsion with propofol; propofol off 04/22; consider starting 04/27 ? Monitor and Evaluation: Goal: Meet >75% of estimated needs Monitor fluid/electrolyte balance Monitor labs, I/Os, vital signs, weight ? Discharge Nutrition Recommendations:? To be determined ? 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 Patient initially presented with hematemesis and melena with accompanying dizziness and shortness of breath. Transferred to [facility] on 04/14 for further management. s/p EGD 04/15?which showed a deep esophageal tear. ?Plan for a minimum of NPO x 2 weeks. ?04/16 Right chest tube placed for effusion. Interval History: extubated 04/22; NG removed 04/22 by pt. propofol off 04/22. EGD to be repeated. Pt is febrile with Tmax: 38.3 Resp: room air (extubated 04/22; propofol off 04/22) I/O's: Intake/Output Summary (Last 24 hours) at 04/25/18 1234 Last data filed at 04/25/18 1200 Gross per 24 hour Intake 3042 ml Output 2696 ml Net 346 ml overall +82720.6 Abdomen: not assessed Last BM: ?04/25 - black Enteral access: ?n/a Parenteral access: ?right IJ TLC placed 04/14 Labs: hypernatremia, hyperchloremia, Mg suboptimal, PO4 suboptimal, lactate 1.1, ionized calcium 1.16 Blood Gases: pH 7.47, pCO2 34, HCO3 25 Blood sugars: 131, 113, 112 Cultures: blood cx x 2 no growth x 5 days Imaging: n/a Nutritional Intake: Intake History BI DATA ARCHITECT: Unable to determine Current intake: 04/17: ?Average 5 day intakes meeting <50% of estimated energy need.s started on PN 04/17 due to esophageal tear, plan for NPO x 2 weeks 04/18: currently goal kcals, PN 940 kcals, 110 g pro + propofol 765 kcals/day 04/20: ?TPN wirh orders 04/17 - 04/19 to provide 110gms protein and 940 claories + additional calories from propofol (04/19 provided 626 calories) 04/21 - 04/22: ?PN with orders 04/20 - 04/21 to provide 100gms protein and 1000 calories + additional calories from propofol 04/25: PN with orders 04/22 - 04/24 to provide 110gms protein and 1040 calories Current Diet Order DIET NPO Lines and Drains: Central Line Triple Lumen 04/14/18 2319 Non-tunneled Right Neck (Active) Peripheral 04/14/18 2344 Left Antecubital 18 Gauge (Active) Chest Tube 04/16/18 2100 Right 28 Fr (Active) Height: 177.8 cm (5' 10) Admission Weight: 106.1 kg (233 lb 14.5 oz) Current Weight: 105.8 kg (233 lb 4 oz) Body mass index is 33.47 kg/m?. Usual body weight ?Unable to determine? No weight history available. ? Estimated nutrition goals: [place] body weight: 75.4 kg Dosing weight: 106?kg (04/14; BMI 33.5kg/m2)?? Calorie needs 1558-3796?kilocalories determined by = 15-20?kcals/kg Dosing?weight? Protein needs: 90 - 121?grams determined by 1.2 -1.6g/kg ideal?weight?- due to CKD Temp (24hrs), Av.5 ?C (99.5 ?F), Min:37 ?C (98.6 ?F), Max:38.3 ?C (100.9 ?F) Recent Labs 04/25/18 0215 04/23/18 0206 GLUC 157* < > 235* BUN 45* < > 54* CREAT 1.06 < > 1.35* NA 147* < > 140 K 4.4 < > 4.2 CHLOR 113* < > 104 CO2 24 < > 25 ALB -- -- 2.3* P 2.8 < > 3.2 HB 7.4* < > 7.5* HCT 23.5* < > 23.3* WBC 8.65 < > 7.48 MG 1.9 < > 1.8 < > = values in this interval not displayed. Vitamin and Mineral Labs in the past year:No results for input(s): CHROMIUM, COPPER, MANGANESE, SELENIUM, VITAMINA, VITB1, VITB2, VITB6, B12, METHYLMAL, VITD25, VITAMINE, VITAK, ZINC, TIBC, FE, JOHANNY in the last 8784 hours. MNT Billing Type: Re-assess/15 min 2 units SIGNATURE: Sari Weston RD [facility] PATIENT NAME: Lazaro Villafana DATE: April 25, 2018 TIME: 12:32 PM PAGER: [phone] Ekaterina Zabala, PT 04/25/2018 1:06 PM Addendum Physical Therapy Evaluation SERVICE DATE: 04/25/2018 SERVICE TIME: 1145 to 1230 ROOM: [place] [id number] Recommended Discharge Disposition: Unable to determine due to critical care status PT Recommendations to Nursing: Passive lift to/from chair;Utilize bed in chair position PT 6 Clicks Score: 9 Precautions/Activity Restrictions: Lines/Tubes/Drains;Fall Risk Precaution/Activity Restriction Comments: R chest tube to suction ASSESSMENT : Patient presents with impaired strength, impaired balance, decreased safety awareness, impaired cognition (mini-cog 2/5), and overall decline in functional mobility d/t critical illness s/p admission for hematemesis. Therapist providedskilled intervention today for monitoring of vital signs to assess fluctuations with activity due to this being the first trial OOB in SICU. Pt had varied SPO2 when pt taking off nasal cannula and demonstrated HTN with effort that required meds to be given by the RN. Therapist also provided skilled activity dosing and prescription of safe activity intensity in the critical care setting. Pt required cues for safety considerations throughout PT. Was able to stand with 2 assist but not able to wt shift to step d/t strength impairments. The patient will benefit from skilled PT for functional training focusing on the patient's current impairments, and skilled PT to progress and dose activities within safe limits. Will set DC plan with progress and once critical illness resolves to ensure accuracy of DC plan. Patient Disposition at Start of Session: Supine in Bed;Bed Alarm;SCDs Patient Disposition at End of Session: Supine in Bed;SCDs;Call Raphael in Reach;Bed Alarm Tolerance Limited By Fatigue Physical Therapy Problem List: Education Deficit;Pain;Safety Deficits;Decreased Activity Tolerance;Decreased Strength;Functional Mobility Impairment;Balance Impaired Patient /Caregiver Goals: Go Home Goals for Plan of Care: Able to perform HEP with: Independent Rolling with: Stand By Assistance Transfer supine to/from sit with: Stand By Assistance Transfer sit to/from stand with: Stand By Assistance Ambulate with: Stand By Assistance Distance: 100ft Device: Wheeled Walker Ambulate up and down steps with: Contact Guard Assistance Number of steps: 3 Device: Rail Transfer: Transfer bed to chair SBA with walker Rehab Potential: Good PLAN: Treatment Frequency (times per week): 5 Current admission Treatment Interventions: Education;Strengthening;Functional Mobility Training;Balance Training Plan of Care developed with: Patient TREATMENT INTERVENTIONS: Therapy Diagnosis: Reduced mobility-other Interventions Provided: Evaluation;Therapeutic Activity (62091) $ Evaluation-Moderate (43787) Billed Units: 1 unit Therapeutic Activity (75447) Treatment Minutes: 30 2 units Skilled Intervention(s): -Education to patient : PT plan/role/freq, DC planning, OOB with assist -Instruction to nursing regarding: mobility recs -Supine rolling: Assist and mod verbal and tactile cues for reaching UE to rail; tactile and verbal cues for LE flexion; tactile cues to initiate turn -Supine to/from sit: Mod verbal cues for LE management. Mod verbal cues for logroll sequence. Assist using TAP to wt shift trunk. -EOB static sitting. Tactile cues to trunk to cue upright posture d/t fwd leaning. Repeated verbal and visual cues for pursed lip breathing for SPO2 management and pain/BP control -Sit to/from stand 1x with B UE support to wt shift trunk, cues to knees for ext/flex -Static standing for 20 sec: B knee blocking for ext. B UE support to maintain upright trunk and for steadying -Skilled intervention for ICU line/room setup for safe mobility environment -Skilled intervention for vital sign monitoring to assess hemodynamic and respiratory response to activity to prescribe safe intensity and duration of activity/exercise during above interventions -Skilled intervention and time for positioning in supine after session for safety, comfort, and pressure relief: call light, turned, HOB 30 Total Timed Code Treatment Minutes: 30 Total Treatment Time (minutes): 45 FUNCTIONAL G CODE: PT 6 Clicks Score: 9 (04/25/181144) Mobility: Walking and Moving Around Current Status (G8978): CM (04/25/18 114) Mobility: Walking and Moving Around Goal Status (G8979): CL (04/25/181144) Based on clinical assessment and the score on the 6 Clicks Functional Assessment Tool, the G code and corresponding severity modifiers are documented above. SUBJECTIVE: Current Hospital Course: 52 yo male admitted from OSH with hematemesis s/p EGD at OSH complicated by esophageal laceration that appears to be contained. General surgery not recommending surgical intervention. 04/25 currently with R-sided chest tube for hydropneumothorax. SICU resident advised okay for activity Reason for Physical Therapy Consult : Critical care therapy Relevant Past Medical History: CKD. DM. COPD. ETOH. Cirrhosis. HTN. 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 Entry To Home: Stairs Number Of Stairs Into Home: 3 Number Of Stairs To Bed/Bath: 0 Equipment Owned: Cane;Wheeled Walker Prior Functional Level: Within Functional Limits OBJECTIVE: Mini Cog Score: 2 (04/25/18 1145) Divided attention CURRENT FUNCTIONAL STATUS: Current Functional Mobility Assist Level Additional Information Rolling Moderate Assistance Supine to Sit Maximal Assistance 2 assist with all mobility Sit to Supine Maximal Assistance Scooting Maximal Assistance Sit to Stand Moderate Assistance Stand to Sit Moderate Assistance Bed to Chair Unable to wt shift when trialed Toilet/Commode Gait Stairs Curb Step Car Transfer Pt removing nc. SPO2 decreased to 93%. With encouragement pt reapplied. SBPs increased to the 170s before supine to sit with attempts to ready the bed. RN notified. BP meds given. SBPs in the 150s-160s when mobilizing. JH-HLM: 3: Sit at edge of bed Please see discipline specific clinical documentation flowsheet for complete details for this therapy evaluation/treatment. SIGNATURE: Ekaterina Zabala, PT PATIENT NAME: Lazaro Villafana DATE: April 25, 2018 TIME: 12:57 PM Previous Version Alec Cheung MD 04/26/2018 7:16 AM Signed Department of Gastroenterology AND Hepatology Initial Consult Note Date of Service: April 25, 2018 Patient: Lazaro Villafana Medical Record: [id number] Reason for Admission / Consultation: Opinion/Advice regarding partial thickness esophageal tear Gastroenterology Attending: Marques Odom MD Impression: Lazaro Villafana is a 52 year old gentleman with history notable for presumed EtOH related cirrhosis with risk factors for BOONE with disease course c/b portal HTN (EV) who presented with complaints of several day history of nausea, vomiting, melena, and hematemesis prompting tony tube placement at that time (unsure if gastric vs. Gastric and esophageal balloon inflated) found to have partial thickness esophageal tear and large EV. GI re-consulted for repeat endoscopy and corpak placement Plan: --- EGD for evaluation of esophageal tear today and post-pyloric Corpak placement/banding of large varices if tear has healed for safe passage of endosocpe --- NPO since 04/17 ---Type and screen with confirmation and transfuse as needed (keep PLT >50,000, INR<1.5, Hgb>7) in anticipation of procedure today Alec Cheung MD Gastroenterology AND Hepatology Fellow Discussed with staff. History of Present Illness: Lazaro Villafana is a 52 year old gentleman with history notable for presumed EtOH related cirrhosis with risk factors for BOONE with disease course c/b portal HTN (EV) who presented with complaints of several day history of nausea, vomiting, melena, and hematemesis prompting tony tube placement at that time (unsure if gastric vs. Gastric and esophageal balloon inflated) subsequently transferred to [facility] where he underwent EGD revealing Grade II non bleeding EV and a long 7 cm laceration (31-38 cm from the incisors) with GE junction documented to be at 45 cm. ? Mr. Villafana has an additional history significant for - Non insulin dependent Diabetes Mellitus - Hypertension - Chronic Kidney Disease - Chronic obstructive pulmonary disease - EtOH abuse disorder ? EGD (04/14/18): 4:20 PM - GE junction at 45 cm - Grade II Esophageal varices, 2 columns not actively bleeding - Laceration with adherent clot from 31 - 38 cm from incisors. ? Transferred to [facility] and re-scoped 04/15/18: EGD (04/15/18): - Deep mucosal tear 31-38 cm from incisors - Large varices in lower third of esophagus - Hematin in stomach - Scope not advanced to duodenum to avoid additional pressure on esophagus His hospital course c/b mediastinitis with fevers an purulent chest tube output on vancomycin/aztreonam/diflucan, respiratory failure requiring intubation now extubated (04/22) and stable from pulmonary standpoint, and on TPN. GI consulted for repeat look of esophagus and potential corpak placement/banding. Patient hemodynamically stable at this time on 2 L NC. Hgb 6.9 this AM but PRBC ordered. INR 1.5. Pertinent Review of Systems: Negative except as mentioned above Past Medical History: PAST MEDICAL HISTORY Diagnosis Date - Cirrhosis (HCC) - COPD (chronic obstructive pulmonary disease) (HCC) - Diabetes (HCC) - ETOH abuse - Hypertension Past Surgical History: No past surgical history on file. Family History: No family history on file. Social History: Social History Marital status: Spouse name: Years of education: Number of children: Social History Main Topics Smoking status: Current Every Day Smoker Packs/day: 0.00 Years: 0.00 Alcohol use: Yes Drug use: Yes Allergies: ALLERGIES Allergen Reactions - Ciprofloxacin Unknown - Penicillin Unknown Tolerating cefepime Medications: Prior to Admission Medications: amLODIPine (NORVASC) 10 mg tablet Take 10 mg by mouth once daily. metFORMIN (GLUCOPHAGE) 500 mg tablet Take 500 mg by mouth twice daily. losartan (COZAAR) 50 mg tablet Take 50 mg by mouth once daily. lactulose (DUPHALAC, CONSTULOSE) 10 gram/15 mL solution glyBURIDE (DIABETA) 5 mg tablet Take 5 mg by mouth twice daily. hydrOXYzine pamoate (VISTARIL) 50 mg capsule Take 50 mg by mouth twice daily as needed. NORepinephrine (LEVOPHED) 16 mg in D5W 250 mL Inject 0.6-30 mcg/min intravenously continuous. metroNIDAZOLE (FLAGYL) 500 mg/100 mL Inject 100 mL intravenously every 8 hours. aztreonam (AZACTAM) 1 g in D5W 100 mL Inject 100 mL intravenously every 8 hours. propofol infusion (DIPRIVAN) 10 mg/mL injection Inject 0.485- 5.82 mg/min intravenously continuous. pantoprazole (PROTONIX) 40 mg injection Inject 10 mL intravenously twice daily. octreotide 500 mcg in D5W 100 mL Inject 50 mcg/hr intravenously continuous. Current hospital medications: Parenteral Nutrition - Adult INTRAVENOUS ONCE TPN (2200 START) OLANZapine orally disintegrating 10 mg tab(s) (ZyPREXA ZYDIS) 10 mg ORAL AT BEDTIME metoprolol 5 mg injection (LOPRESSOR) 5 mg INTRAVENOUS q 6 HR acetaminophen 1,000 mg iv piggyback (OFIRMEV) 1,000 mg INTRAVENOUS q 8 H diatrizoate meglumine AND sodium 100 mL oral/rectal solution (GASTROGRAFIN) 100 mL ORAL ONCE Parenteral Nutrition - Adult INTRAVENOUS ONCE TPN (2200 START) lidocaine 5 % 1 Patch (LIDODERM) 1 Patch TRANSDERMAL DAILY lidocaine patch - REMOVE OTHER AT BEDTIME lidocaine - VERIFY PATCH OTHER q 8 H labetalol 10 mg injection syringe (NORMODYNE) 10 mg INTRAVENOUS q 2 H PRN insulin glargine 20 Units pen (long acting) (LANTUS SOLOSTAR, BASAGLAR KWIKPEN) 20 Units SUBCUTANEOUS AT BEDTIME vancomycin iv piggyback 1 g in D5W 200 mL (VANCOCIN) 1 g INTRAVENOUS q 12 HR aztreonam 2 g in D5W 100 mL MB+ (AZACTAM) 2 g INTRAVENOUS q 6 HR heparin 5,000 Units injection 5,000 Units SUBCUTANEOUS q 12 H fluconazole 400 mg in NaCl (iso-osmotic) 200 mL (DIFLUCAN) 400 mg INTRAVENOUS DAILY vancomycin dosing and monitoring per pharmacy OTHER As Directed insulin regular human injection (short acting) (NovoLIN R,HumuLIN R) SUBCUTANEOUS q 6 H potassium chloride iv piggyback 20 mEq/100 mL 20 mEq INTRAVENOUS PRN potassium chloride 20-80 mEq CUP 20-80 mEq ORAL/FEEDING TUBE PRN magnesium sulfate in water 2 g in sterile water 50 ml 2 g INTRAVENOUS PRN sodium glycerophosphate 15 mmol in D5W 250 mL (GLYCOPHOS) 15 mmol INTRAVENOUS PRN sodium glycerophosphate 30 mmol in D5W 250 mL (GLYCOPHOS) 30 mmol INTRAVENOUS PRN sodium glycerophosphate 45 mmol in D5W 250 mL (GLYCOPHOS) 45 mmol INTRAVENOUS PRN dextrose 40 % 15 g 15 g ORAL PRN glucagon 1 mg injection (GLUCAGEN) 1 mg INTRAMUSCULAR PRN dextrose 50 % 12.5 g injection 12.5 g INTRAVENOUS PRN lactated ringers infusion 5-30 mL/hr INTRAVENOUS CONTINUOUS NaCl 0.9% 3-5 mL 3-5 mL INTRAVENOUS q 12 H fentaNYL 50 mcg/mL 25-50 mcg injection (SUBLIMAZE) 25-50 mcg INTRAVENOUS q 1 H PRN metroNIDAZOLE 500 mg PREMIX piggyback (FLAGYL) 500 mg INTRAVENOUS q 8 H ipratropium-albuterol 3 mL nebulizer solution (DUONEB) 3 mL INHALATION q 4 H PRN pantoprazole 40 mg injection (PROTONIX) 40 mg INTRAVENOUS BID AC () Physical Exam: Vital Signs 04/25/18 1330 04/25/18 1400 04/25/18 1500 04/25/18 1600 BP: 159/88 135/67 133/67 Pulse: 96 97 91 101 Resp: 15 30 24 28 Temp: 37.1 ?C (98.8 ?F) TempSrc: Oral SpO2: 96% 95% 91% 88% Weight: Height: Intake/Output Summary (Last 24 hours) at 04/25/18 1826 Last data filed at 04/25/18 1500 Gross per 24 hour Intake 1284 ml Output 2416 ml Net -1132 ml VITAL SIGNS: BP 133/67 Pulse 101 Temp (Src) 98.8 (Oral) Resp 28 Ht 5' 10 (1.78m) Wt 233 lb 4 oz (105.8kg) SpO2 88% BMI 33.47 kg/(m2). General appearance: well appearing, alert, in no acute distress Skin: no rashes or lesions Lungs: lungs clear to auscultation, no wheezing or rhonchi Heart: RRR without murmur Abdomen: Abdomen soft, non-tender. Bowel sounds normal. Extremities: Extremities normal. Musculoskeletal: Muscular strength grossly intact Neuro: CN2-12 grossly intact Labs: CBC, Coags, BMP, Mg, Phos Recent Labs 04/26/18 0148 04/25/18 1043 04/25/18 0215 04/24/18 0441 04/23/18 1215 WBC 7.02 -- 8.65 8.99 8.05 HB 6.9* -- 7.4* 7.3* 7.3* HCT 22.2* -- 23.5* 23.1* 23.1* PLT 131* -- 131* 118* 108* INR -- -- 1.5* -- 1.5* APTT -- -- -- -- 35.4* NA 148* -- 147* 145* -- K 4.0 -- 4.4 4.5 -- CHLOR 112* -- 113* 111* -- CO2 25 -- 24 22 -- BUN 46* -- 45* 50* -- CREAT 1.07 -- 1.06 1.13 -- GLUC 129* -- 157* 165* -- IC -- 1.16 -- -- -- CA 8.0* -- 8.0* 8.0* -- MG 2.1 -- 1.9 2.0 -- P 3.4 -- 2.8 2.7 -- Liver Function, Amylase, AND Lipase Recent Labs 04/25/18 1043 LACT 1.1 ABGs Recent Labs 04/25/18 1043 PH 7.47* PCO2 34 PO2 78* BE 2 HCO3 25 CO2CT 26 O2HB 94* COHB 1.7 MHGB 0.5 TEMP 37.0 PHTC 7.47* PCO2T 34 PO2T 78 SIGNATURE: Alec Cheung MD PATIENT NAME: Lazaro Villafana DATE: April 25, 2018 TIME: 6:26 PM PAGER/CONTACT #: [phone] Katharine Perez RN, RN 04/25/2018 7:19 PM Signed Nursing Progress Note Patient Name: Lazaro Villafana Patient Location: [id number]/[id number] Daily Note: 1850: pt got out of bed without bedside nurse, pt urinated and had a bowel movement on the floor. Pt has been instructed multiple times to not get out of bed without bedside nurse and/ physical therapy. This note was completed by: Katharine Perez, RN Villa Thomas MD 04/26/2018 7:08 AM Signed Acute Care Surgery PROGRESS NOTE Lazaro Villafana [id number] 04/26/2018 ASSESSMENT/PLAN: Lazaro Villafana is a 52 year old male with PMHx type II DM, poorly controlled HTN, CKD, COPD, tobacco smoker 2-3 PPD, alcohol use disorder with recent diagnosis of cirrhosis w/ esophageal varices who presents on transfer from OSH with hematemesis s/p EGD at OSH c/b esophageal laceration that appears to be contained; MELD > 20, currently with R-sided chest tube for hydropneumothorax, NPO and on TPN. Intermittent fevers. ? - Continue strict NPO - No surgical intervention planned - Hgb 6.9 this AM, will transfuse 1 u RBCs - Follow Thoracic Surgery recommendations - Esophagram today - EGD today reassess esophageal tear + post-pyloric Corpak placement - Pleural cultures from 04/23 thus far negative; will continue to follow - Continue supportive/SICU care - trend labs ? To be discussed with staff, SUBJECTIVE 24 hour events: No acute events Mildly febrile to 38 Pain is well controlled on current regimen. Getting OOB CT output 25 BMx1 OBJECTIVE Intake/Output Summary (Last 24 hours) at 04/26/18 0445 Last data filed at 04/26/18 0400 Gross per 24 hour Intake 2989 ml Output 2281 ml Net 708 ml PHYSICAL EXAM: BP 146/81 Pulse 90 Temp (Src) 100.4 (Oral) Resp 22 Ht 5' 10 (1.78m) Wt 233 lb 4 oz (105.8kg) SpO2 96% BMI 33.47 kg/(m2). General: alert, oriented, conversational CV: RRR Pulm: moderately labored breathing on room air Neck: no subQ emphysema/crepitus appreciated Abdomen: soft, non-distended Extremities: warm and well perfused DATA: Date 04/25/18 07 - 04/26/18 0659 04/26/18 0700 - 04/27/18 0659 Shift 1602-0543 0457-0624 7499-7575 24 Hour Total 7372-7380 3768-9094 1226-9966 24 Hour Total I N T A K E IV 1079 1079 LR 1079 1079 TPN/PPN 626 626 TPN 626 626 Shift Total 1705 1705 O U T P U T Urine 645 710 000 2147 Void (ml) 100 100 Urine Incontinence/Not Saved 1 x 1 x Output ( Indwelling Urinary Catheter 04/25/18 1916 Mcclain 16 Fr) 140 466 3649 Output ([REMOVED] Indwelling Urinary Catheter 04/14/184 Admission to Hospital Mcclain 04/25/18 1200) 645 645 Chest Tube 25 25 Chest Tube Output (Chest Tube 04/16/18 2100 Right 28 Fr) 25 25 # of BMs Number of BMs 1 x 1 x Shift Total 645 494 581 7342 Weight (kg) 105.8 105.8 105.8 105.8 105.8 105.8 105.8 105.8 Diagnostic tests reviewed for today's visit: Most recent labs and imaging results. CBC, Coags, BMP, Mg, Phos Recent Labs 04/26/18 0148 04/25/18 1043 04/25/18 0215 04/24/18 0441 04/23/18 1215 WBC 7.02 -- 8.65 8.99 8.05 HB 6.9* -- 7.4* 7.3* 7.3* HCT 22.2* -- 23.5* 23.1* 23.1* PLT 131* -- 131* 118* 108* INR -- -- 1.5* -- 1.5* APTT -- -- -- -- 35.4* NA 148* -- 147* 145* -- K 4.0 -- 4.4 4.5 -- CHLOR 112* -- 113* 111* -- CO2 25 -- 24 22 -- BUN 46* -- 45* 50* -- CREAT 1.07 -- 1.06 1.13 -- GLUC 129* -- 157* 165* -- IC -- 1.16 -- -- -- CA 8.0* -- 8.0* 8.0* -- MG 2.1 -- 1.9 2.0 -- P 3.4 -- 2.8 2.7 -- Villa Thomas MD PGY-1, General Surgery Acute Care Surgery: [id number] After 6pm and on weekends and holidays, please page General Surgery on-call [phone] Previous Version Muriel Flanagan MD 04/26/2018 7:51 PM Signed INFECTIOUS DISEASES PROGRESS NOTE Patient Name: Lazaro Villafana Account #: Data Unavailable Admission Date: 04/14/2018 Date of Evaluation: 04/26/2018 Time of Evaluation: 10:20 AM INTERVAL HPI: No acute events overnight. Ongoing known mediastinitis confirmed on repeat CT chest 04/21/18, no surgical intervention planned at this time. Possible repeat EGD this week. On TPN for nutrition, project 2 weeks of NPO status until esophageal perforation may have healed. Last fever 100.4F at 0400 04/26/18. Stable leukocytosis. OOB with therapy 04/25/18, did have some desaturations but stood. Mcclain catheter discontinued 04/25/18. Plans for PICC, though persistently febrile. Chest tube with ongoing drainage. Metronidazole 04/15 Fluconazole 04/15 Vancomycin 04/20 Aztreonam 04/22 MEDICATIONS: Current hospital medications: Parenteral Nutrition - Adult INTRAVENOUS ONCE TPN (0 START) OLANZapine orally disintegrating 10 mg tab(s) (ZyPREXA ZYDIS) 10 mg ORAL AT BEDTIME metoprolol 5 mg injection (LOPRESSOR) 5 mg INTRAVENOUS q 6 HR acetaminophen 1,000 mg iv piggyback (OFIRMEV) 1,000 mg INTRAVENOUS q 8 H lidocaine 5 % 1 Patch (LIDODERM) 1 Patch TRANSDERMAL DAILY lidocaine patch - REMOVE OTHER AT BEDTIME lidocaine - VERIFY PATCH OTHER q 8 H labetalol 10 mg injection syringe (NORMODYNE) 10 mg INTRAVENOUS q 2 H PRN insulin glargine 20 Units pen (long acting) (LANTUS SOLOSTAR, BASAGLAR KWIKPEN) 20 Units SUBCUTANEOUS AT BEDTIME vancomycin iv piggyback 1 g in D5W 200 mL (VANCOCIN) 1 g INTRAVENOUS q 12 HR aztreonam 2 g in D5W 100 mL MB+ (AZACTAM) 2 g INTRAVENOUS q 6 HR heparin 5,000 Units injection 5,000 Units SUBCUTANEOUS q 12 H fluconazole 400 mg in NaCl (iso-osmotic) 200 mL (DIFLUCAN) 400 mg INTRAVENOUS DAILY vancomycin dosing and monitoring per pharmacy OTHER As Directed insulin regular human injection (short acting) (NovoLIN R,HumuLIN R) SUBCUTANEOUS q 6 H potassium chloride iv piggyback 20 mEq/100 mL 20 mEq INTRAVENOUS PRN potassium chloride 20-80 mEq CUP 20-80 mEq ORAL/FEEDING TUBE PRN magnesium sulfate in water 2 g in sterile water 50 ml 2 g INTRAVENOUS PRN sodium glycerophosphate 15 mmol in D5W 250 mL (GLYCOPHOS) 15 mmol INTRAVENOUS PRN sodium glycerophosphate 30 mmol in D5W 250 mL (GLYCOPHOS) 30 mmol INTRAVENOUS PRN sodium glycerophosphate 45 mmol in D5W 250 mL (GLYCOPHOS) 45 mmol INTRAVENOUS PRN dextrose 40 % 15 g 15 g ORAL PRN glucagon 1 mg injection (GLUCAGEN) 1 mg INTRAMUSCULAR PRN dextrose 50 % 12.5 g injection 12.5 g INTRAVENOUS PRN lactated ringers infusion 5-30 mL/hr INTRAVENOUS CONTINUOUS NaCl 0.9% 3-5 mL 3-5 mL INTRAVENOUS q 12 H fentaNYL 50 mcg/mL 25-50 mcg injection (SUBLIMAZE) 25-50 mcg INTRAVENOUS q 1 H PRN metroNIDAZOLE 500 mg PREMIX piggyback (FLAGYL) 500 mg INTRAVENOUS q 8 H ipratropium-albuterol 3 mL nebulizer solution (DUONEB) 3 mL INHALATION q 4 H PRN pantoprazole 40 mg injection (PROTONIX) 40 mg INTRAVENOUS BID AC (0600/1600) PHYSICAL EXAM: BP 146/81 Pulse 92 Temp (!) 38 ?C (100.4 ?F) (Oral) Resp 26 Ht 177.8 cm (5' 10) Wt 105.8 kg (233 lb 4 oz) SpO2 95% BMI 33.47 kg/m? Lines: Nontunnelled triple lumen 04/14 in R neck ?GEN: Patient is much improved from last week, interactive, engaged SKIN: No lesions noted. EYES: PERRLA NECK: R nontunnelled triple lumen catheter with no overlying erythema, swelling or warmth. LUNGS: clear to auscultation, no wheezes, or crackles. HEART: ?Regular rate/rhythm, normal heart sounds, and no murmurs. ABDOMEN: Soft, epigastric tenderness, hypoactive BS EXTREMITIES: Edema of hands b/l, no LE edema. Labs: WBC 7.02, Hgb 6.9, Plt 131, Cr 1.07 +733 cc/24 hours Micro and radiology personally reviewed 04/14/18: Quantiferon gold testing negative for TB 04/14/18: Blood cultures 04/19 no growth 04/14/18: MSSA nasal swab positive 04/17/18: MSSA nasal swab positive 04/17/18: Blood cultures 2/2 no growth 04/20/18: Blood cultures 2/2 no growth 04/20/18: Tracheal aspirate cultures no organisms on gram stain and no growth on culture 04/22/18: Fungitell negative 04/23/18: Sputum cultures normal abby 04/24/18: Staphylococcal nasal swab negative CT Chest 04/17/18: IMPRESSION: 1. ?NEW MULTIFOCAL CONSOLIDATIVE/GROUNDGLASS OPACITIES PREDOMINANTLY LEFT UPPER LOBE AND LINGULA, MAY REPRESENT MULTIFOCAL PNEUMONIA/ASPIRATION PNEUMONITIS, HEMORRHAGE OR ASYMMETRIC EDEMA. ?RADIOGRAPHIC FOLLOW-UP IS RECOMMENDED.. 2. ?BILATERAL LOWER LOBE AIRSPACE OPACITIES WITH VOLUME LOSS, RIGHT GREATER THAN LEFT, MOST LIKELY ATELECTASIS WITH POSSIBLE SUPERIMPOSED INFECTIOUS PROCESS. 3. ?LIMITED EVALUATION OF PREVIOUSLY SEEN MID ESOPHAGEAL CONTRAST EXTRAVASATION/TEAR. ?SMALL FOCI OF RIGHT-SIDED PNEUMOMEDIASTINUM, NOT SIGNIFICANTLY CHANGED. ?SMALL FOCI OF PNEUMOMEDIASTINUM HAVE DEVELOPED SUPERIORLY. ?THESE COULD BE FROM RECENT INTERVENTION. 4. SMALL BILATERAL PLEURAL COLLECTIONS HAVE SLIGHTLY INCREASED COMPARED TO PRIOR EXAM. ?THE AIR COMPONENTS OF THE RIGHT PLEURAL COLLECTION ARE NEW SINCE PREVIOUS EXAM, LIKELY RELATED TO ?INTERVAL PLACEMENT OF RIGHT APICAL CHEST TUBE. US upper extremities 04/20/18: IMPRESSION ? RIGHT SIDE - DEEP VEINS Technically limited study. Negative for acute deep vein thrombosis in vessels visualized. Unable to visualize the internal jugular vein due to IV lines and bandages. RIGHT SIDE - SUPERFICIAL VEINS Acute superficial thrombophlebitis in the cephalic vein antecubital fossa to wrist. Acute superficial thrombophlebitis in the basilic vein mid upper arm to wrist. Acute superficial thrombophlebitis in the median cubital vein at the antecubital fossa. ? LEFT SIDE - DEEP VEINS Spontaneous and respirophasic flow noted in the subclavian vein at proximal. CT Chest 04/21/18: IMPRESSION: 1. ?Unchanged right hydropneumothorax with right thoracostomy tube and associated right lower lobe atelectasis. ?Superimposed infection/aspiration cannot be excluded. 2. ?Groundglass opacities in the left upper lobe and lingula, likely infectious/inflammatory. ?Left apical consolidation has decreased since the prior exam. 3. ?Circumferential wall thickening of the esophagus. ?Known esophageal tear is not visualized on this examination. 4. ?Mediastinal lymphadenopathy, likely reactive. CT Chest 04/24/18: IMPRESSION: 1. Small to medium-sized right loculated hydropneumothorax with associated right pleural thickening and adjacent right lower lobe atelectasis/consolidation (most likely due to infection), without significant change. Right thoracostomy tube stable in position. 2. Scattered ground-glass opacities within the upper lobes, new within the right upper lobe and stable to slightly decreased in the left upper lobe. These are most likely infectious/inflammatory in origin. Additional small ground-glass and small consolidative opacities within the inferior left lower lobe with adjacent centrilobular nodular opacities are most likely infectious and, in this location, may be related to aspiration. 3. Interval resolution of the left pleural effusion with overall decreased atelectasis in the left lower lobe. 4. Thoracic lymphadenopathy, likely reactive. 5. Known esophageal perforation; small locules of gas extending from the level of the distal esophagus into the right pleural space (images 90-93) may correspond to the site of perforation. ? IMPRESSION / PLAN 52 yo M with a h/o cirrhosis, EtoH related, CKD, COPD and reported + PPD in the past. Currently no clinical or imaging evidence of active pulmonary TB. Presenting with hemorrhagic shock secondary to hematemesis/esophageal tear c/b pneumomediastinum; no surgical intervention planned at this time. EGD for later this week. Plans for PICC for TPN noted. Plan: - continue vancomycin (goal trough 15-25), aztreonam, metronidazole, fluconazole as ordered for now, will likely continue antibiotics until next EGD Will discuss with attending, Perla Delgado PGY4 ID STAFF I evaluated the patient and personally participated in the jang components. I agree with the fellow's findings and plan as documented and have discussed the case and management of the patient's care with the fellow. I have reviewed and verified pertinent data. Became more agitated today, received haldol prior to our exam No new complaints, but drowsy Agree with plan as above. Muriel Flanagan MD Pager: [phone] April 26, 2018 Previous Version Gordon Ly PA-C, HERMELINDO 04/26/2018 8:47 AM Signed [facility] CONSULT PROGRESS NOTE Lazaro Villafana [id number] PRIMARY SERVICE: HOSPITAL DAY: # 12 INTERVAL HISTORY No acute events overnight. Pt continues to be intermittently febrile. ChT output 125cc PHYSICAL EXAM BP 146/81 Pulse 92 Temp (!) 38 ?C (100.4 ?F) (Oral) Resp 26 Ht 177.8 cm (5' 10) Wt 105.8 kg (233 lb 4 oz) SpO2 95% BMI 33.47 kg/m? Intake/Output Summary (Last 24 hours) at 04/26/18 0535 Last data filed at 04/26/18 0400 Gross per 24 hour Intake 1705 ml Output 2095 ml Net -390 ml Constitutional: No acute distress HEENT: EOM's intact Resp: Respiratory effort: normal, CT SS, no air leak, on suction Cardiovascular: Cardiac: Regular rate AND rhythm Integumentary: Warm Musculoskeletal: No deformities Neurological/Psychiatric: Alert Additional systems reviewed: No additional systems reviewed ? DATA Recent Labs 04/26/1814704/25/185 04/24/18 0441 WBC 7.02 8.65 8.99 HB 6.9* 7.4* 7.3* HCT 22.2* 23.5* 23.1* PLT 131* 131* 118* Recent Labs 04/26/1814704/25/185 04/24/18 0441 NA 148* 147* 145* K 4.0 4.4 4.5 CO2 25 24 22 BUN 46* 45* 50* CREAT 1.07 1.06 1.13 GLUC 129* 157* 165* MG 2.1 1.9 2.0 IMAGING I personally reviewed: CXR ASSESSMENT AND PLAN 52 year old male with multiple medical comorbidities now with likely partial thickness esophageal perforation, putatively from S-B tube placement at OSH. It is unlikely that this is the etiology of his massive hemoptysis, reportedly there were multiple varices that, in the background of cirrhosis is the likely etiology of his bleed. While he is requiring high doses of vasopressors, it is unlikely that the source of his shock is purely from his esophageal perforation given his lack of pleural effusion or free flowing contrast. 04/15 EGD showed 5cm esophageal laceration without active bleeding. 04/16 Right chest tube placed for effusion. 04/22 extubated. 04/22 Patient pulled NGT. 04/[address] by 4cm. ? Plan - daily CXR - esophagram today - per Gen surg, EGD with post-pyloric corpak placement - will f/u esophagram Case discussed with Dr. Soto ? Gordon Ly PA-C Pager [phone] 04/26/2018 5:35 AM Previous Version DORIS HAMMER, PHARMCIST 04/26/2018 8:44 AM Signed PHARMACY VANCOMYCIN DOSING NOTE Patient Name: Lazaro Villafana Admission Date: 04/14/2018 Date of Consult: 04/26/2018 Time of Consult: 8:39 AM Indication: Pneumonia Goal Range: 10-20 mcg/mL RECOMMENDATIONS/PLAN: Pharmacy consulted for vancomycin dosing for Lazaro Villafana, a 52 year old, male who is being treated with vancomycin for pneumonia. 1. Patient is currently ordered vancomycin 1 g IV q12h. Today is day 7 of total therapy and day 5 of current regimen. 2. The most recent vancomycin level was 14.4 mcg/mL drawn at 0148 on 04/26/18. This is an approximate 13-hour level on the 5th day of the current regimen. 3. The present dose of vancomycin is the recommended dosage for this patient at this time. Continue therapy as prescribed. 4. The next vancomycin level will be ordered for 5 to 7 days unless clinically indicated sooner. (Pharmacy will order) We will follow patient renal function, vancomycin levels and doses with you during the course of therapy. Additional recommendations will appear in follow up notes. If you have any questions, please contact Mckenzie HoranD at . Age: [age] year old Allergies: ALLERGIES Allergen Reactions - Ciprofloxacin Unknown - Penicillin Unknown Tolerating cefepime Last 3 Encounter Wt Readings: Date: Wt: 04/14/2018 105.8 kg (233 lb 4 oz) 04/14/2018 97 kg (213 lb 13.5 oz) Last 1 Encounter Ht Readings: Date: Ht: 04/14/2018 177.8 cm (5' 10) CrCl: > 90 mL/min Temp (24hrs), Av.4 ?C (99.4 ?F), Min:36.6 ?C (97.9 ?F), Max:38 ?C (100.4 ?F) - Current Temp: 37.3 ?C (99.1 ?F) Labs BUN (mg/dL) Date Value 04/26/2018 46 (H) 04/25/2018 45 (H) 04/24/2018 50 (H) Creatinine (mg/dL) Date Value 04/26/2018 1.07 04/25/2018 1.06 04/24/2018 1.13 WBC (k/uL) Date Value 04/26/2018 7.02 04/25/2018 8.65 04/24/2018 8.99 Vancomycin Levels: Vancomycin, result (ug/mL) Date/Time Value 04/26/2018 0148 14.4 04/22/2018 0120 24.3 (H) DORIS HAMMER, PharmD Rosa Maria Gan MD 04/26/2018 12:35 PM Addendum SURGICAL INTENSIVE CARE UNIT PROGRESS NOTE SERVICE DATE: April 26, 2018 SERVICE TIME: 8:45 AM Subjective No overnight events. CT ouput in last 24 hrs - 125 cc. No leukocytosis and blood cultures with NGTD. EGD and esophagram today. Objective VITAL SIGNS Temp: 37.3 ?C (99.1 ?F) Pulse: 93 BP: 146/81 MAP Non Invasive (Mean Arterial Pressure): 107 Resp: 25 SpO2: 100 % Current Facility-Administered Medications: fentaNYL 50 mcg/mL 100 mcg injection (SUBLIMAZE) 100 mcg INTRAVENOUS ONCE midazolam (PF) 5 mg injection (VERSED) 5 mg INTRAVENOUS ONCE Parenteral Nutrition - Adult INTRAVENOUS ONCE TPN (0 START) OLANZapine orally disintegrating 10 mg tab(s) (ZyPREXA ZYDIS) 10 mg ORAL AT BEDTIME metoprolol 5 mg injection (LOPRESSOR) 5 mg INTRAVENOUS q 6 HR lidocaine 5 % 1 Patch (LIDODERM) 1 Patch TRANSDERMAL DAILY And lidocaine patch - REMOVE OTHER AT BEDTIME And lidocaine - VERIFY PATCH OTHER q 8 H labetalol 10 mg injection syringe (NORMODYNE) 10 mg INTRAVENOUS q 2 H PRN insulin glargine 20 Units pen (long acting) (LANTUS SOLOSTAR, BASAGLAR KWIKPEN) 20 Units SUBCUTANEOUS AT BEDTIME vancomycin iv piggyback 1 g in D5W 200 mL (VANCOCIN) 1 g INTRAVENOUS q 12 HR aztreonam 2 g in D5W 100 mL MB+ (AZACTAM) 2 g INTRAVENOUS q 6 HR heparin 5,000 Units injection 5,000 Units SUBCUTANEOUS q 12 H fluconazole 400 mg in NaCl (iso-osmotic) 200 mL (DIFLUCAN) 400 mg INTRAVENOUS DAILY vancomycin dosing and monitoring per pharmacy OTHER As Directed insulin regular human injection (short acting) (NovoLIN R,HumuLIN R) SUBCUTANEOUS q 6 H potassium chloride iv piggyback 20 mEq/100 mL 20 mEq INTRAVENOUS PRN Or potassium chloride 20-80 mEq CUP 20-80 mEq ORAL/FEEDING TUBE PRN magnesium sulfate in water 2 g in sterile water 50 ml 2 g INTRAVENOUS PRN sodium glycerophosphate 15 mmol in D5W 250 mL (GLYCOPHOS) 15 mmol INTRAVENOUS PRN Or sodium glycerophosphate 30 mmol in D5W 250 mL (GLYCOPHOS) 30 mmol INTRAVENOUS PRN Or sodium glycerophosphate 45 mmol in D5W 250 mL (GLYCOPHOS) 45 mmol INTRAVENOUS PRN dextrose 40 % 15 g 15 g ORAL PRN Or glucagon 1 mg injection (GLUCAGEN) 1 mg INTRAMUSCULAR PRN Or dextrose 50 % 12.5 g injection 12.5 g INTRAVENOUS PRN lactated ringers infusion 5-30 mL/hr INTRAVENOUS CONTINUOUS NaCl 0.9% 3-5 mL 3-5 mL INTRAVENOUS q 12 H fentaNYL 50 mcg/mL 25-50 mcg injection (SUBLIMAZE) 25-50 mcg INTRAVENOUS q 1 H PRN metroNIDAZOLE 500 mg PREMIX piggyback (FLAGYL) 500 mg INTRAVENOUS q 8 H ipratropium-albuterol 3 mL nebulizer solution (DUONEB) 3 mL INHALATION q 4 H PRN pantoprazole 40 mg injection (PROTONIX) 40 mg INTRAVENOUS BID AC (0600/1600) Cardiovascular: Regular rate and rhythm Abdomen: Soft and Nontender Extremities: Mild pedal edema Neuro: Awake, alert and oriented x3 Intake/Output Summary (Last 24 hours) at 04/26/18 0842 Last data filed at 04/26/18 0800 Gross per 24 hour Intake 3543 ml Output 2310 ml Net 1233 ml Current Weight: Weight: 105.8 kg (233 lb) Admission Weight: Weight: 106.1 kg (233 lb 14.5 oz) RESPIRATORY On RA Recent Labs 04/25/18 1043 PH 7.47* PO2 78* PCO2 34 BE 2 HCO3 25 LACT 1.1 CXR Findings: 04/26/2018 IMPRESSION: Lines, tubes, and devices: ?Stable position of right IJ central venous catheter and right thoracostomy tube. Lungs and pleura: ?Small to medium-sized right pleural effusion present, partially loculated. ?Mixed alveolar and interstitial opacities within the lungs bilaterally, right side greater than left, are without significant change and most likely reflect a combination of pulmonary edema and atelectasis; component of infection/aspiration not excluded in appropriate clinical setting. No large pneumothorax. Cardiomediastinal silhouette: ?Stable cardiomediastinal silhouette. CT Chest Findings: 04/24/2018. IMPRESSION: 1. Small to medium-sized right loculated hydropneumothorax with associated right pleural thickening and adjacent right lower lobe atelectasis/consolidation (most likely due to infection), without significant change. Right thoracostomy tube stable in position. 2. Scattered ground-glass opacities within the upper lobes, new within the right upper lobe and stable to slightly decreased in the left upper lobe. These are most likely infectious/inflammatory in origin. Additional small ground-glass and small consolidative opacities within the inferior left lower lobe with adjacent centrilobular nodular opacities are most likely infectious and, in this location, may be related to aspiration. 3. Interval resolution of the left pleural effusion with overall decreased atelectasis in the left lower lobe. 4. Thoracic lymphadenopathy, likely reactive. 5. Known esophageal perforation; small locules of gas extending from the level of the distal esophagus into the right pleural space (images 90-93) may correspond to the site of perforation. INFUSION(S): none Patient Lines Assessed: Lines, Drains, and Airways Line Arterial Line 04/14/18 2320 Arterial Line Left Radial 11 days Central Line Triple Lumen 04/14/18 2319 Non-tunneled Right Neck 11 days Peripheral 04/14/18 2344 Left Antecubital 18 Gauge 11 days Drain Chest Tube 04/16/18 2100 Right 28 Fr 9 days Indwelling Urinary Catheter 04/25/18 1916 Mcclain 16 Fr less than 1 day Diagnostic tests reviewed for today's visit: Most recent labs and imaging results. Assessment/Plan Neuro:? AANDOx3, extubated -- prn fentanyl for pain -- continue lidocaine patch -- Zyprexa at night for agitation -- One time dose of Zyprexa this morning for agitation following EGD ?CV:? Hx of HTN on losartan and amlodipine at home. -- HDS off pressors -- prn labetalol for HTN -- scheduled metoprolol 10mg q6h until able to restart home PO meds ? Pulm:? Hx of COPD. Stable respiratory fxn on RA. CT chest with loculated R pleural effusion. CXR today with R loculated pleural effusion, interstitial and alveolar opacities unchanged. -- duonebs prn -- monitor chest tube output Renal:??(baseline Cr ~1.2 from 02/2018) -- stable kidney function, good UOP -- discontinue mcclain ? GI:? Likely partial thickness mid-distal esophageal perforation, not amenable to stenting. EtOH cirrhosis with portal HTN, grade [address] Chest 04/24: Known esophageal perforation; small locules of gas extending from the level of the distal esophagus into the right pleural space (images 90-93) may correspond to the site of perforation. -- NPO -- NGT removed by patient (04/22); no need to replace NGT per thoracic (do not place blindly) -- repeat EGD today showed that esophagus is healing appropriately and there were no varices or active bleeding in esophagus. Corpak placed during EGD but patient subsequently removed corpak shortly after placement. -- Esophagram today ? Heme:? -- Transfused 1u pRBC for Hgb 6.9 -- Transfuse to keep Hgb >7 -- SQH ? Fluid/Electrolyte/Nutrition: -- NPO -- Replete lytes as needed -- TPN ? Endo:? Hx of IDDM, HgbA1c 8.2. -- Continue lantus 20 units qHS -- ISS3 -- Nutrition will adjust lantus in TF ? ID:?Esophageal tear and perforation. Aztreonam and flagyl at OSH. -- Intermittent low grade fevers -- MSSA PCR positive, MRSA PCR negative -- Started Vancomycin on 04/20 per ID recs to cover for GPC -- transitioned cefepime to aztreonam 04/22 -- also on fluconazole (started 04/15), flagyl (started 04/15) -- allergy consult for skin test - negative - tolerated cefepime -- ID following, appreciate recs ? PPX:? -- GI ppx - pantoprazole given GI bleed -- VTE ppx - 5000u BID Medication and Non-Pharmacologic VTE Prophylaxis/Anticoagulants Anticoagulant AND Antiplatelet Medications Start Dose Route Frequency Ordered Stop 04/21/18 0930 heparin 5,000 Units injection 5,000 Units SUBCUTANEOUS EVERY 12 HOURS 04/21/18 0901 -- 04/14/18 2100 pneumatic compression stockings (nc,ut) 04/14/18 2100 activity - mobilize patient (nc,ut) VTE Prophylaxis: VTE prophylaxis appropriate SIGNATURE: Gloria Crawford MD PATIENT NAME: Lazaro Villafana DATE: April 26, 2018 TIME: 8:45 AM PAGER/CONTACT #: [phone] I have seen and reviewed the patient today, including physical examination at bedside with the SICU Housestaff and verifying the findings (see resident's documentation); reviewing labs, Xrays; discussing with primary physician and consultants; and developing plan of care with the bedside nurse. This care required my full attention and direct personal management in prevention of imminent clinical deterioration. [LEVEL III] REASON FOR SICU ADMISSION AND PERTINENT RECENT HISTORY: 52 year old man with history of T2DM, HTN, COPD, CKD, alcohol/tobacco abuse, liver cirrhosis with esophageal varices who presented to [facility] after developing a partial thickness esophageal perforation. Initially required intubation, has now been extubated. On broad-spectrum antibiotics with right sided chest tube in place. Intermittent low-grade fevers. Occasionally has agitation delirium. CURRENTLY: Began confused and agitated overnight, required replacement of mcclain catheter and restraints. Underwent EGD today - esophageal tear healing appropriately, no varices noted. GI also placed Corpak endoscopically, which patient removed. DAILY ASSESSMENTS: Restraints -Necessary for altered mental status/risk of self-harm (pulling on life support devices, etc) Central Access -Necessary. Personal evaluation has established that ongoing need exists for TPN Sedation interruption -Not applicable Continued need for urinary catheter: D/C Urinary Catheter IMPRESSION AND PLAN: 52 year old man with unrepaired partial thickness esophageal perforation. Has ongoing mediastinitis with fevers and purulent chest tube output as well as hydropneumothorax on chest CT. Is receiving appropriate antibiotic therapy. Stable and clinically improved from a cardiac and pulmonary standpoint. No pressors, on minimal O2 requirement. Underwent EGD, partial thickness tear is resolving. Patient did not tolerate Corpak in place. Acute post-operative pain: IV fentanyl PRN, has lidocaine patches over chest tube site as well Hypertension: continue IV metoprolol today Acute respiratory insufficiency, RLL lung consolidation, COPD: doing well on RA to 2L NC currently. Will encourage IS use, ambulation, out of bed Mediastinitis related to esophageal perforation: Continue aztreonam, fluconazole, flagyl, vancomycin. Thoracic surgery, general surgery, and GI following. S/p EGD this morning with improvement. Esophogram pending. T2DM: SSI, target blood glucose < 200 Severe protein-calorie malnutrition: patient TPN-dependent, strict NPO until cleared by thoracic surgery. Hyperactive delirium: Olanzepine ordered Prophy: Protonix, SQH Lines: patient's central line is 11 days old. Will plan on PICC line placement once fevers resolve. Discontinuing mcclain catheter today. SIGNATURE: Rosa Maria Gan MD DATE: April 26, 2018 TIME: 12:29 PM Previous Version Spencer Terrazas RN, RN 04/26/2018 9:27 AM Signed 0900 Gi at bedside for scope. 3mg Versed and 50mcg Fentanyl given 0903 25mcg Fentanyl 0911 1mg Versed given 0917 Corpak being placed 0919 1mg Versed and 25mcg Fentanyl given Mikaela Pathak RN, RN 04/26/2018 5:11 PM Signed Nursing Progress: Topic: RESTRAINT NON-VIOLENT PATIENT NAME: Lazaro Villafana PATIENT LOCATION: [place] [address] The patient demonstrates Attempting to Remove Medical Devices Vital to Medical Stability, Impulsive Behavior as evidenced by the following behaviors pt pulled out newly placed corpak, trying to pull out CVP line, climbing over bed rails, yelling foul words at staff members which pose an imminent danger to self or others. The following interventions were attempted but were not effective in protecting the patient's safety: Alarms, Bed in Low/Locked Position, Call Light Within Reach, IV/Feeding Bag/Pump Out of Vision, Medications Reviewed Next, a comprehensive assessment was performed and warranted placing the patient in Soft Bilateral Wrists, the least restrictive restraint needed to protect the patient's safety. Ongoing safety assessments and evaluation for earliest removal of restraints will be performed. DATE: April 26, 2018 TIME: 5:09 PM BLAYNE Ribeiro MD 04/26/2018 9:51 AM Signed EGD with Corpak placement (04/26/18): See procedure note for more details. Partial esophageal tear from 31-38 cm healing well. Stomach with moderate PHG. Duodenum normal. Corpak placed endoscopically. No varices noted. GI team will sign off at this time. Please do not hesitate to contact us with additional questions/concerns. Alec Cheung MD GI Fellow April 26, 2018 9:51 AM Ekaterina Zabala, PT 04/26/2018 10:00 AM Signed PHYSICAL THERAPY MISSED VISIT SERVICE DATE: 04/26/2018 SERVICE TIME: 958 to 59 ROOM: [place] [address] Attempted Treatment. Patient not seen due to Test/Procedure. Patient just finished with bedside GI scope. Low H/H this AM. Will reattempt at another time. SIGNATURE: Ekaterina Zabala PT PATIENT NAME: Lazaro Villafana DATE: April 26, 2018 TIME: 10:00 AM Jerilyn Germain OTR/L 04/26/2018 11:19 AM Signed OCCUPATIONAL THERAPY MISSED VISIT SERVICE DATE: 04/26/2018 SERVICE TIME: 834 to 08 ROOM: [place] [address] Attempted Evaluation. Patient not seen due to Test/Procedure. Multiple procedures planned for AM with bedside GI setting up. Will follow up when able. SIGNATURE: Jerilyn Pedro SATHISH Germain/Julio PATIENT NAME: Lazaro Villafana DATE: April 26, 2018 TIME: 11:[address] CNSC 04/26/2018 1:58 PM Signed NUTRITION SUPPORT TEAM PROGRESS NOTE SERVICE DATE: 04/26/2018 SERVICE TIME: 1059 RECOMMENDED DIAGNOSIS: MILD PROTEIN-CALORIE MALNUTRITION per Registered Dietitian on 04/17 NUTRITION CARE PLAN Intervention: 1. ?Continue TPN ?- PN to provide 120gms 15% AA, 1120 dextrose calories, 1680ml at 70ml/hr ?- orders pended with d/c Na+ acetate, reduced NaPhos, incr KPhos, MVI, MTE, 85-70u insulin (1:5 ratio), 100mg thiamine ?- as able increase dextrose calories 2. ?Defer 250ml IVPB lipids 20% fat emulsion with propofol; propofol off 04/22; consider starting 04/27 ? Monitor and Evaluation: Goal: Meet >75% of estimated needs Monitor fluid/electrolyte balance Monitor labs, I/Os, vital signs, weight ? Discharge Nutrition Recommendations:? To be determined ? Per HPI: 52 year old male with a history of type II DM, poorly controlled HTN, CKD, COPD, tobacco smoker 2-3 PPD, alcohol use disorder with recent diagnosis of cirrhosis was transferred from [facility] with an esophageal perforation seen on EGD. Patient initially presented with hematemesis and melena with accompanying dizziness and shortness of breath. Transferred to [facility] SICU on 04/14 for further management. s/p EGD 04/15?which showed a deep esophageal tear. ?Plan for a minimum of NPO x 2 weeks. ?04/16 Right chest tube placed for effusion. Interval History: may start trickle TF; continue PN Pt is afebrile with Tmax: 38, tachy Resp: room air I/O's: Intake/Output Summary (Last 24 hours) at 04/26/18 1353 Last data filed at 04/26/18 1000 Gross per 24 hour Intake 3543 ml Output 2080 ml Net 1463 ml overall +11424.6 Abdomen: not assessed Last BM: ?04/25?- black/brown Enteral access: ?n/a; plan for EGD guided post pyloric feeding tube placement Parenteral access: ?right IJ TLC placed 04/14 Labs: hypernatremia, hyperchloremia, PO4 improved/suboptimal, lactate 1.0, ionized calcium 1.13 Blood Gases: pH 7.46, pCO2 35, HCO3 24 Blood sugars: 130, 115, 123 Cultures: n/a Imaging: n/a Nutritional Intake: Intake History BI DATA ARCHITECT: Unable to determine Current intake: 04/17: ?Average 5 day intakes meeting <50% of estimated energy need.s started on PN 04/17 due to esophageal tear, plan for NPO x 2 weeks 04/18: currently goal kcals, PN 940 kcals, 110 g pro + propofol 765 kcals/day 1/2: ?TPN wirh orders 04/17 - 04/19 to provide 110gms protein and 940 claories + additional calories from propofol (04/19 provided 626 calories) 04/21 - 04/22: ?PN with orders 04/20 - 04/21?to provide 100gms protein and 1000 calories + additional calories from propofol 04/25: PN with orders 04/22 - 04/24 to provide 110gms protein and 1040 calories 04/26: PN with orders 04/25 to provide 120gms protein and 1600 calories Current Diet Order DIET NPO Lines and Drains: Central Line Triple Lumen 04/14/18 2319 Non-tunneled Right Neck (Active) Peripheral 04/14/18 2344 Left Antecubital 18 Gauge (Active) Indwelling Urinary Catheter 04/25/18 191 Mcclain 16 Fr (Active) Chest Tube 04/16/18 2100 Right 28 Fr (Active) Height: 177.8 cm (5' 10) Admission Weight: 106.1 kg (233 lb 14.5 oz) Current Weight: 105.8 kg (233 lb 4 oz) Body mass index is 33.47 kg/m?. Usual body weight ?Unable to determine? No weight history available. ? Estimated nutrition goals: [place] body weight: 75.4 kg Dosing weight: 106?kg (04/14; BMI 33.5kg/m2)?? Calorie needs 3220-7347?kilocalories determined by = 15-20?kcals/kg Dosing?weight? Protein needs: 90 - 121?grams determined by 1.2 -1.6g/kg ideal?weight?- due to CKD Temp (24hrs), Av.6 ?C (99.7 ?F), Min:37.1 ?C (98.8 ?F), Max:38 ?C (100.4 ?F) Recent Labs 04/26/18 0148 GLUC 129* BUN 46* CREAT 1.07 NA 148* K 4.0 CHLOR 112* CO2 25 P 3.4 HB 6.9* HCT 22.2* WBC 7.02 MG 2.1 Vitamin and Mineral Labs in the past year:No results for input(s): CHROMIUM, COPPER, MANGANESE, SELENIUM, VITAMINA, VITB1, VITB2, VITB6, B12, METHYLMAL, VITD25, VITAMINE, VITAK, ZINC, TIBC, FE, JOHANNY in the last 8784 hours. MNT Billing Type: Re-assess/15 min 2 units SIGNATURE: Sari Weston RD [facility] PATIENT NAME: Lazaro Villafana DATE: April 26, 2018 TIME: 1:50 PM PAGER: [phone] Dakotah Hogan, RN, RN 04/27/2018 2:12 AM Signed Nursing Progress: Topic: RESTRAINT NON-VIOLENT PATIENT NAME: Lazaro Villafana PATIENT LOCATION: [place] [address] The patient demonstrates Attempting to Remove Medical Devices Vital to Medical Stability, Confusion, Lack of Understanding/Ability to Comply with Safety Directions, Impulsive Behavior as evidenced by the following behaviors Pulling lines and tubes which pose an imminent danger to self or others. The following interventions were attempted but were not effective in protecting the patient's safety: Alarms, Bed in Low/Locked Position, Call Light Within Reach, IV/Feeding Bag/Pump Out of Vision, Medications Reviewed, Modify Environment Next, a comprehensive assessment was performed and warranted placing the patient in Mitt Right, Soft Bilateral Wrists, the least restrictive restraint needed to protect the patient's safety. Ongoing safety assessments and evaluation for earliest removal of restraints will be performed. 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 Intermittent fevers. EGD done 04/26 with finding of partial mucosal tear in mid esophagus. ? - Continue strict NPO, TPN - No surgical intervention planned - Hgb 6.9 --> 7.3 after 1U pRBC yesterday, continue to trend - Follow Thoracic Surgery recommendations ?- Esophagram today - Pleural cultures from 04/23 thus far negative; will continue to follow - Continue to monitor chest tube output - Continue supportive/SICU care To be discussed with staff, After 6pm and on weekends and holidays, please page General Surgery on-call [phone] Gab Castillo MD General Surgery, PGY-1 SUBJECTIVE 24 hour events: No acute events Febrile overnight x 1 episode No pressor requirements On precedex due to agitation Pain is well controlled on current regimen. DIET NPO diet with no n/v OBJECTIVE Intake/Output Summary (Last 24 hours) at 04/27/18 0458 Last data filed at 04/27/18 0400 Gross per 24 hour Intake 3353 ml Output 2840 ml Net 513 ml PHYSICAL EXAM: BP 146/81 Pulse 76 Temp (Src) 101.8 (Oral) Resp 16 Ht 5' 10 (1.78m) Wt 233 lb 4 oz (105.8kg) SpO2 98% BMI 33.47 kg/(m2). Gen: Awake, alert Lungs: Breathing comfortably on 2L NC Abdomen: soft, ndnt Ext: No edema, SCDs in place DATA: Date 04/26/18699 - 04/27/1865804/27/18699 - 04/28/18 0659 Shift 1826-9785 0426-5264 1183-4919 24 Hour Total 8437-3514 7540-8529 6354-9621 24 Hour Total I N T A K E IV 738 738 LR 738 738 Blood Products 351 351 PRBC Intake (mL) 350 350 Packed Red Blood Cells Number of Units 1 1 TPN/PPN 777 777 TPN 777 777 Shift Total 351 1515 1866 O U T P U T Urine 840 137 411 6036 Output ( Indwelling Urinary Catheter 04/25/18 1916 Mcclain 16 Fr) 840 632 256 3921 Chest Tube 150 150 Chest Tube Output (Chest Tube 04/16/18 2100 Right 28 Fr) 150 150 # of BMs Stool Incontinence 1 x 1 x Number of BMs 1 x 1 x Shift Total 840 4599 851 6815 Weight (kg) 105.8 105.8 105.8 105.8 105.8 105.8 105.8 105.8 Diagnostic tests reviewed for today's visit: Most recent labs and imaging results. CBC, Coags, BMP, Mg, Phos Recent Labs 04/27/18 0237 04/26/18 1024 04/26/18 0148 04/25/18 1043 04/25/18 0215 WBC 6.78 -- 7.02 -- 8.65 HB 7.3* -- 6.9* -- 7.4* HCT 23.8* -- 22.2* -- 23.5* PLT 132* -- 131* -- 131* INR -- -- -- -- 1.5* NA 149* -- 148* -- 147* K 4.8 -- 4.0 -- 4.4 CHLOR 116* -- 112* -- 113* CO2 21* -- 25 -- 24 BUN 42* -- 46* -- 45* CREAT 1.17 -- 1.07 -- 1.06 GLUC 133* -- 129* -- 157* IC -- 1.13 -- 1.16 -- CA 8.0* -- 8.0* -- 8.0* MG 1.9 -- 2.1 -- 1.9 P 3.9 -- 3.4 -- 2.8 Liver Function, Amylase, AND Lipase Recent Labs 04/26/18 1024 04/25/18 1043 LACT 1.0 1.1 Previous Version Fauzia Fallon RN, RN 04/27/2018 10:58 AM Signed Nursing Progress: Topic: RESTRAINT NON-VIOLENT PATIENT NAME: Lazaro Villafana PATIENT LOCATION: [place] [address] The patient demonstrates Attempting to Remove Medical Devices Vital to Medical Stability as evidenced by the following behaviors pulling at chest tube and central line which pose an imminent danger to self or others. The following interventions were attempted but were not effective in protecting the patient's safety: Alarms, Bed in Low/Locked Position Next, a comprehensive assessment was performed and warranted placing the patient in Soft Bilateral Wrists, the least restrictive restraint needed to protect the patient's safety. Ongoing safety assessments and evaluation for earliest removal of restraints will be performed. DATE: April 27, 2018 TIME: 10:58 AM BLAYNE Kim MD 04/27/2018 9:02 PM Signed INFECTIOUS DISEASES PROGRESS NOTE Patient Name: Lazaro Villafana Account #: Data Unavailable Admission Date: 04/14/2018 Date of Evaluation: 04/27/2018 Time of Evaluation: 10:20 AM INTERVAL HPI: Febrile to 101.5F, repeat blood cultures obtained. RIJ CVC replaced for LIJ CVC 04/27/18. CXR with some improvement over Right lung alvarez. Bedside GI scope performed 04/26/18. Partial esophageal tear reported healing well; corpak placed. Metronidazole 04/15 Fluconazole 04/15 Vancomycin 04/20 Aztreonam 04/22 MEDICATIONS: Current hospital medications: Parenteral Nutrition - Adult INTRAVENOUS ONCE TPN (2200 START) metoprolol 10 mg injection (LOPRESSOR) 10 mg INTRAVENOUS q 6 HR dexmedetomidine 400 mcg in NaCl 0.9% 100 mL (PRECEDEX) 0.2- 1 mcg/kg/hr INTRAVENOUS CONTINUOUS OLANZapine orally disintegrating 10 mg tab(s) (ZyPREXA ZYDIS) 10 mg ORAL AT BEDTIME lidocaine 5 % 1 Patch (LIDODERM) 1 Patch TRANSDERMAL DAILY lidocaine patch - REMOVE OTHER AT BEDTIME lidocaine - VERIFY PATCH OTHER q 8 H labetalol 10 mg injection syringe (NORMODYNE) 10 mg INTRAVENOUS q 2 H PRN insulin glargine 20 Units pen (long acting) (LANTUS SOLOSTAR, BASAGLAR KWIKPEN) 20 Units SUBCUTANEOUS AT BEDTIME vancomycin iv piggyback 1 g in D5W 200 mL (VANCOCIN) 1 g INTRAVENOUS q 12 HR aztreonam 2 g in D5W 100 mL MB+ (AZACTAM) 2 g INTRAVENOUS q 6 HR heparin 5,000 Units injection 5,000 Units SUBCUTANEOUS q 12 H fluconazole 400 mg in NaCl (iso-osmotic) 200 mL (DIFLUCAN) 400 mg INTRAVENOUS DAILY vancomycin dosing and monitoring per pharmacy OTHER As Directed insulin regular human injection (short acting) (NovoLIN R,HumuLIN R) SUBCUTANEOUS q 6 H potassium chloride iv piggyback 20 mEq/100 mL 20 mEq INTRAVENOUS PRN potassium chloride 20-80 mEq CUP 20-80 mEq ORAL/FEEDING TUBE PRN magnesium sulfate in water 2 g in sterile water 50 ml 2 g INTRAVENOUS PRN sodium glycerophosphate 15 mmol in D5W 250 mL (GLYCOPHOS) 15 mmol INTRAVENOUS PRN sodium glycerophosphate 30 mmol in D5W 250 mL (GLYCOPHOS) 30 mmol INTRAVENOUS PRN sodium glycerophosphate 45 mmol in D5W 250 mL (GLYCOPHOS) 45 mmol INTRAVENOUS PRN dextrose 40 % 15 g 15 g ORAL PRN glucagon 1 mg injection (GLUCAGEN) 1 mg INTRAMUSCULAR PRN dextrose 50 % 12.5 g injection 12.5 g INTRAVENOUS PRN lactated ringers infusion 5-30 mL/hr INTRAVENOUS CONTINUOUS NaCl 0.9% 3-5 mL 3-5 mL INTRAVENOUS q 12 H fentaNYL 50 mcg/mL 25-50 mcg injection (SUBLIMAZE) 25-50 mcg INTRAVENOUS q 1 H PRN metroNIDAZOLE 500 mg PREMIX piggyback (FLAGYL) 500 mg INTRAVENOUS q 8 H ipratropium-albuterol 3 mL nebulizer solution (DUONEB) 3 mL INHALATION q 4 H PRN pantoprazole 40 mg injection (PROTONIX) 40 mg INTRAVENOUS BID AC (0600/1600) PHYSICAL EXAM: BP 146/81 Pulse 74 Temp 36.8 ?C (98.2 ?F) (Oral) Resp 20 Ht 177.8 cm (5' 10) Wt 104.3 kg (229 lb 15 oz) SpO2 99% BMI 32.99 kg/m? Lines: Nontunnelled triple lumen 04/14 in R neck and 04/27 Left neck ?GEN: Patient is sedated, sleeping (precedex) SKIN: No lesions noted. EYES: PERRLA NECK: R and L nontunnelled triple lumen catheter with no overlying erythema, swelling or warmth. LUNGS: clear to auscultation, no wheezes, or crackles. HEART: ?Regular rate/rhythm, normal heart sounds, and no murmurs. ABDOMEN: Soft, epigastric tenderness, hypoactive BS EXTREMITIES: Edema of hands b/l, no LE edema. +mcclain + right sided chest tube with unchanged, chunky fluid Labs: WBC 6.78, Hgb 7.3, Plt 132, Cr 1.17 +413 cc/24 hours Micro and radiology personally reviewed 04/14/18: Quantiferon gold testing negative for TB 04/14/18: Blood cultures 04/19 no growth 04/14/18: MSSA nasal swab positive 04/17/18: MSSA nasal swab positive 04/17/18: Blood cultures 2/2 no growth 04/20/18: Blood cultures 2/2 no growth 04/20/18: Tracheal aspirate cultures no organisms on gram stain and no growth on culture 04/22/18: Fungitell negative 04/23/18: Sputum cultures normal abby 04/24/18: Staphylococcal nasal swab negative 04/27/18: Blood cultures 2/[address] Chest 04/17/18: IMPRESSION: 1. ?NEW MULTIFOCAL CONSOLIDATIVE/GROUNDGLASS OPACITIES PREDOMINANTLY LEFT UPPER LOBE AND LINGULA, MAY REPRESENT MULTIFOCAL PNEUMONIA/ASPIRATION PNEUMONITIS, HEMORRHAGE OR ASYMMETRIC EDEMA. ?RADIOGRAPHIC FOLLOW-UP IS RECOMMENDED.. 2. ?BILATERAL LOWER LOBE AIRSPACE OPACITIES WITH VOLUME LOSS, RIGHT GREATER THAN LEFT, MOST LIKELY ATELECTASIS WITH POSSIBLE SUPERIMPOSED INFECTIOUS PROCESS. 3. ?LIMITED EVALUATION OF PREVIOUSLY SEEN MID ESOPHAGEAL CONTRAST EXTRAVASATION/TEAR. ?SMALL FOCI OF RIGHT-SIDED PNEUMOMEDIASTINUM, NOT SIGNIFICANTLY CHANGED. ?SMALL FOCI OF PNEUMOMEDIASTINUM HAVE DEVELOPED SUPERIORLY. ?THESE COULD BE FROM RECENT INTERVENTION. 4. SMALL BILATERAL PLEURAL COLLECTIONS HAVE SLIGHTLY INCREASED COMPARED TO PRIOR EXAM. ?THE AIR COMPONENTS OF THE RIGHT PLEURAL COLLECTION ARE NEW SINCE PREVIOUS EXAM, LIKELY RELATED TO ?INTERVAL PLACEMENT OF RIGHT APICAL CHEST TUBE. US upper extremities 04/20/18: IMPRESSION ? RIGHT SIDE - DEEP VEINS Technically limited study. Negative for acute deep vein thrombosis in vessels visualized. Unable to visualize the internal jugular vein due to IV lines and bandages. RIGHT SIDE - SUPERFICIAL VEINS Acute superficial thrombophlebitis in the cephalic vein antecubital fossa to wrist. Acute superficial thrombophlebitis in the basilic vein mid upper arm to wrist. Acute superficial thrombophlebitis in the median cubital vein at the antecubital fossa. ? LEFT SIDE - DEEP VEINS Spontaneous and respirophasic flow noted in the subclavian vein at proximal. CT Chest 04/21/18: IMPRESSION: 1. ?Unchanged right hydropneumothorax with right thoracostomy tube and associated right lower lobe atelectasis. ?Superimposed infection/aspiration cannot be excluded. 2. ?Groundglass opacities in the left upper lobe and lingula, likely infectious/inflammatory. ?Left apical consolidation has decreased since the prior exam. 3. ?Circumferential wall thickening of the esophagus. ?Known esophageal tear is not visualized on this examination. 4. ?Mediastinal lymphadenopathy, likely reactive. CT Chest 04/24/18: IMPRESSION: 1. Small to medium-sized right loculated hydropneumothorax with associated right pleural thickening and adjacent right lower lobe atelectasis/consolidation (most likely due to infection), without significant change. Right thoracostomy tube stable in position. 2. Scattered ground-glass opacities within the upper lobes, new within the right upper lobe and stable to slightly decreased in the left upper lobe. These are most likely infectious/inflammatory in origin. Additional small ground-glass and small consolidative opacities within the inferior left lower lobe with adjacent centrilobular nodular opacities are most likely infectious and, in this location, may be related to aspiration. 3. Interval resolution of the left pleural effusion with overall decreased atelectasis in the left lower lobe. 4. Thoracic lymphadenopathy, likely reactive. 5. Known esophageal perforation; small locules of gas extending from the level of the distal esophagus into the right pleural space (images 90-93) may correspond to the site of perforation. ? EGD 04/27/18: Impression: ? - Mucosal tear in the middle third of the esophagus ? healing well. ? - Portal hypertensive gastropathy. ? - Normal examined duodenum. ? - Feeding tube placement was successfully performed. ? Please confirm placement with KUB. ? - No specimens collected. IMPRESSION / PLAN 52 yo M with a h/o cirrhosis, EtoH related, CKD, COPD and reported + PPD in the past. Currently no clinical or imaging evidence of active pulmonary TB. Presenting with hemorrhagic shock secondary to hematemesis/esophageal tear c/b pneumomediastinum; no surgical intervention planned at this time. EGD 04/26/18 with reported improvement in esophageal tear (31-38cm). Plans for PICC for TPN noted. Plan: - continue vancomycin (goal trough 15-25), aztreonam, metronidazole, fluconazole as ordered for now, will likely continue antibiotics until blood cultures finalize - will follow blood cultures 04/27/17 Will discuss with attending, Perla Delgado PGY4 ID STAFF I evaluated the patient and personally participated in the jang components. I agree with the fellow's findings and plan as documented and have discussed the case and management of the patient's care with the fellow. I have reviewed and verified pertinent data. Ongoing esophageal tear and leak More awake, less agitated Agree with plan as above Will f/u plans for management of esophageal tear Muriel Flanagan MD Pager: [phone] April 27, 2018 Previous Version Rosa Maria Gan MD 04/27/2018 2:36 PM Addendum SURGICAL INTENSIVE CARE UNIT PROGRESS NOTE SERVICE DATE: April 27, 2018 SERVICE TIME: 9:15 AM Subjective Febrile overnight. Repeat blood cultures obtained. Will remove and replace central line. Objective VITAL SIGNS Temp: 37.3 ?C (99.1 ?F) Pulse: 72 BP: 146/81 MAP Non Invasive (Mean Arterial Pressure): 107 Resp: 22 SpO2: 97 % Current Facility-Administered Medications: Parenteral Nutrition - Adult INTRAVENOUS ONCE TPN (2200 START) metoprolol 10 mg injection (LOPRESSOR) 10 mg INTRAVENOUS q 6 HR dexmedetomidine 400 mcg in NaCl 0.9% 100 mL (PRECEDEX) 0.2- 1 mcg/kg/hr INTRAVENOUS CONTINUOUS OLANZapine orally disintegrating 10 mg tab(s) (ZyPREXA ZYDIS) 10 mg ORAL AT BEDTIME lidocaine 5 % 1 Patch (LIDODERM) 1 Patch TRANSDERMAL DAILY And lidocaine patch - REMOVE OTHER AT BEDTIME And lidocaine - VERIFY PATCH OTHER q 8 H labetalol 10 mg injection syringe (NORMODYNE) 10 mg INTRAVENOUS q 2 H PRN insulin glargine 20 Units pen (long acting) (LANTUS SOLOSTAR, BASAGLAR KWIKPEN) 20 Units SUBCUTANEOUS AT BEDTIME vancomycin iv piggyback 1 g in D5W 200 mL (VANCOCIN) 1 g INTRAVENOUS q 12 HR aztreonam 2 g in D5W 100 mL MB+ (AZACTAM) 2 g INTRAVENOUS q 6 HR heparin 5,000 Units injection 5,000 Units SUBCUTANEOUS q 12 H fluconazole 400 mg in NaCl (iso-osmotic) 200 mL (DIFLUCAN) 400 mg INTRAVENOUS DAILY vancomycin dosing and monitoring per pharmacy OTHER As Directed insulin regular human injection (short acting) (NovoLIN R,HumuLIN R) SUBCUTANEOUS q 6 H potassium chloride iv piggyback 20 mEq/100 mL 20 mEq INTRAVENOUS PRN Or potassium chloride 20-80 mEq CUP 20-80 mEq ORAL/FEEDING TUBE PRN magnesium sulfate in water 2 g in sterile water 50 ml 2 g INTRAVENOUS PRN sodium glycerophosphate 15 mmol in D5W 250 mL (GLYCOPHOS) 15 mmol INTRAVENOUS PRN Or sodium glycerophosphate 30 mmol in D5W 250 mL (GLYCOPHOS) 30 mmol INTRAVENOUS PRN Or sodium glycerophosphate 45 mmol in D5W 250 mL (GLYCOPHOS) 45 mmol INTRAVENOUS PRN dextrose 40 % 15 g 15 g ORAL PRN Or glucagon 1 mg injection (GLUCAGEN) 1 mg INTRAMUSCULAR PRN Or dextrose 50 % 12.5 g injection 12.5 g INTRAVENOUS PRN lactated ringers infusion 5-30 mL/hr INTRAVENOUS CONTINUOUS NaCl 0.9% 3-5 mL 3-5 mL INTRAVENOUS q 12 H fentaNYL 50 mcg/mL 25-50 mcg injection (SUBLIMAZE) 25-50 mcg INTRAVENOUS q 1 H PRN metroNIDAZOLE 500 mg PREMIX piggyback (FLAGYL) 500 mg INTRAVENOUS q 8 H ipratropium-albuterol 3 mL nebulizer solution (DUONEB) 3 mL INHALATION q 4 H PRN pantoprazole 40 mg injection (PROTONIX) 40 mg INTRAVENOUS BID AC (0600/1600) Cardiovascular: Regular rate and rhythm Abdomen: Soft and Nontender Extremities: Mild pedal edema Neuro: Awake, alert and oriented x3 Intake/Output Summary (Last 24 hours) at 04/27/18 0915 Last data filed at 04/27/18 0800 Gross per 24 hour Intake 3466 ml Output 2530 ml Net 936 ml Current Weight: Weight: 105.8 kg (233 lb) Admission Weight: Weight: 106.1 kg (233 lb 14.5 oz) RESPIRATORY 2L NC Recent Labs 04/26/18 1024 04/25/18 1043 PH 7.46* 7.47* PO2 70* 78* PCO2 35 34 BE 1 2 HCO3 24 25 LACT 1.0 1.1 CXR Findings: 04/27/2018 IMPRESSION: Lines, tubes, and devices: ?The tip of the right IJ venous catheter overlies the mid SVC. ?Single right thoracostomy tube remains in place. Lungs and pleura: ?Stable peripheral opacity in the right hemithorax with blunting of the right apex and the right costophrenic angle suggestive of a pleural effusion which may be loculated. ?A portion of the right pleural effusion courses in the fissures (pseudotumor). ?There is a patchy airspace opacity in the right mid to lower lung most commonly secondary to nonspecific atelectasis. ?The left lung appears clear. ?No pneumothorax is identified. Cardiomediastinal silhouette: ?Stable cardiomediastinal silhouette. ?No acute process identified. CT Chest Findings: 04/24/2018. IMPRESSION: 1. Small to medium-sized right loculated hydropneumothorax with associated right pleural thickening and adjacent right lower lobe atelectasis/consolidation (most likely due to infection), without significant change. Right thoracostomy tube stable in position. 2. Scattered ground-glass opacities within the upper lobes, new within the right upper lobe and stable to slightly decreased in the left upper lobe. These are most likely infectious/inflammatory in origin. Additional small ground-glass and small consolidative opacities within the inferior left lower lobe with adjacent centrilobular nodular opacities are most likely infectious and, in this location, may be related to aspiration. 3. Interval resolution of the left pleural effusion with overall decreased atelectasis in the left lower lobe. 4. Thoracic lymphadenopathy, likely reactive. 5. Known esophageal perforation; small locules of gas extending from the level of the distal esophagus into the right pleural space (images 90-93) may correspond to the site of perforation. INFUSION(S): none Patient Lines Assessed: Lines, Drains, and Airways Line Arterial Line 04/14/18 2320 Arterial Line Left Radial 12 days Central Line Triple Lumen 04/14/18 2319 Non-tunneled Right Neck 12 days Peripheral 04/14/18 2344 Left Antecubital 18 Gauge 12 days Drain Chest Tube 04/16/18 2100 Right 28 Fr 10 days Indwelling Urinary Catheter 04/25/181915 Mcclain 16 Fr 1 day Diagnostic tests reviewed for today's visit: Most recent labs and imaging results. Assessment/Plan Neuro:? AANDOx3, extubated -- Prn fentanyl for pain -- Continue lidocaine patch -- Zyprexa at night for agitation -- Also received Precedex last night; weaning off today CV:? Hx of HTN on losartan and amlodipine at home. -- HDS off pressors -- PRN labetalol for HTN -- Scheduled metoprolol 10mg q6h until able to restart home PO meds; hold parameters in place ? Pulm:? Hx of COPD. Stable respiratory fxn on RA. CT chest with loculated R pleural effusion. CXR with R loculated pleural effusion, interstitial and alveolar opacities unchanged. -- Duonebs prn -- Monitor chest tube output Renal:??(baseline Cr ~1.2 from 02/2018) -- Stable kidney function, good UOP -- Discontinue Mcclain ? GI:? Likely partial thickness mid-distal esophageal perforation, not amenable to stenting. EtOH cirrhosis with portal HTN, grade [address] Chest 04/24: Known esophageal perforation; small locules of gas extending from the level of the distal esophagus into the right pleural space (images 90-93) may correspond to the site of perforation. -- NPO -- NGT removed by patient (04/22); no need to replace NGT per thoracic (do not place blindly) -- repeat EGD 04/26 showed that esophagus is healing appropriately and there were no varices or active bleeding in esophagus. Corpak placed during EGD but patient subsequently removed corpak shortly after placement. -- Esophagram today ? Heme:? -- Transfused 1u pRBC for Hgb 6.9 -- Transfuse to keep Hgb >7 -- SQH ? Fluid/Electrolyte/Nutrition: -- NPO -- Replete lytes as needed -- TPN -- Will change from LR to D5W for carrier fluid given hypernatremia ? Endo:? Hx of IDDM, HgbA1c 8.2. -- Continue lantus 20 units qHS -- ISS3 -- Nutrition will adjust lantus in TF ID:?Esophageal tear and perforation. Aztreonam and flagyl at OSH. -- Intermittent low grade fevers; febrile overnight to 38.8 -- MSSA PCR positive, MRSA PCR negative -- Started Vancomycin on 04/20 per ID recs to cover for GPC -- transitioned cefepime to aztreonam 04/22 -- also on fluconazole (started 04/15), flagyl (started 04/15) -- allergy consult for skin test - negative - tolerated cefepime -- ID following, appreciate recs -- Will remove R IJ central line from 04/14 and replace with new central line. Will remove A-line from 04/14. ? PPX:? -- GI ppx - pantoprazole given GI bleed -- VTE ppx - 5000u BID Medication and Non-Pharmacologic VTE Prophylaxis/Anticoagulants Anticoagulant AND Antiplatelet Medications Start Dose Route Frequency Ordered Stop 04/21/18 0930 heparin 5,000 Units injection 5,000 Units SUBCUTANEOUS EVERY 12 HOURS 04/21/18 0901 -- 04/14/18 2100 pneumatic compression stockings ([place]) 04/14/18 2100 activity - mobilize patient ([place]) VTE Prophylaxis: VTE prophylaxis appropriate SIGNATURE: Gloria Crawford MD PATIENT NAME: Lazaro Villafana DATE: April 27, 2018 TIME: 9:15 AM PAGER/CONTACT #: [phone] SICU STAFF NOTE I have seen and reviewed the patient today, including physical examination at bedside with the SICU Housestaff and verifying the findings (see resident's documentation); reviewing labs, Xrays; discussing with primary physician and consultants; and developing plan of care with the bedside nurse. This care required my full attention and direct personal management in prevention of imminent clinical deterioration. [LEVEL III] ? REASON FOR SICU ADMISSION AND PERTINENT RECENT HISTORY: 52 year old man with history of T2DM, HTN, COPD, CKD, alcohol/tobacco abuse, liver cirrhosis with esophageal varices who presented to [facility] after developing a partial thickness esophageal perforation. Initially required intubation, has now been extubated. On broad-spectrum antibiotics with right sided chest tube in place. Intermittent low-grade fevers. Occasionally has agitation delirium. ? CURRENTLY: On dexmedetomidine infusion. Still waiting for esophogram. Chest tube continuing to drain brown brackish fluid. Spiked a fever to 38.7 overnight. ? DAILY ASSESSMENTS: Restraints -Necessary for altered mental status/risk of self- harm (pulling on life support devices, etc) ? Central Access -Necessary. Personal evaluation has established that ongoing need exists for TPN Sedation interruption -Not applicable ? Continued need for urinary catheter: D/C Urinary Catheter ? IMPRESSION AND PLAN: 52 year old man with unrepaired partial thickness esophageal perforation. Has ongoing mediastinitis with fevers and purulent chest tube output as well as hydropneumothorax on chest CT. Is receiving appropriate antibiotic therapy. Stable and clinically improved from a cardiac and pulmonary standpoint. No pressors, on minimal O2 requirement. Underwent EGD, partial thickness tear is resolving. Patient did not tolerate Corpak in place and removed it himself. ? Acute post-operative pain: IV fentanyl PRN, has lidocaine patches over chest tube site as well ? Hypertension: continue IV metoprolol ? Acute respiratory insufficiency, RLL lung consolidation, COPD: doing well on RA to 2L NC currently. Will encourage IS use, ambulation, out of bed ? Mediastinitis related to esophageal perforation: Continue aztreonam, fluconazole, flagyl, vancomycin. Thoracic surgery, general surgery, and GI following. S/p EGD this morning with improvement. Esophogram today - pending results, may need TPA in chest tube vs. VATS. Appreciate surgical teams input. ? T2DM: SSI, target blood glucose < 200 ? Severe protein-calorie malnutrition: patient TPN-dependent, strict NPO until cleared by thoracic surgery. ? Hyperactive delirium: Olanzepine ordered. Weaning dexmedetomidine to off today ? Prophy: Protonix, SQH Lines: will discontinue RIJ line, place new LIJ central line. Discontinue mcclain Dispo: SICU ? Previous Version Jerilyn Germain OTR/L 04/27/2018 2:55 PM Signed OCCUPATIONAL THERAPY MISSED VISIT SERVICE DATE: 04/27/2018 SERVICE TIME: 08 to 08 ROOM: [place] [id number] Attempted Evaluation. Patient not seen due to Other: See Comment. Bedside nurse requesting hold for agitation in AM. Will follow up when able. SIGNATURE: Jerilyn Germain OTR/L PATIENT NAME: Lazaro Villafana DATE: April 27, 2018 TIME: 2:54 PM Francois Gann MD,PhD 04/27/2018 10:20 AM Signed [facility] THOR[facility] SURGERY CONSULT PROGRESS NOTE Lazaro Villafana [id number] PRIMARY SERVICE: HOSPITAL DAY: # 13 INTERVAL HISTORY No acute events. Pt has some confusion. Ct output 150cc. EGD yesterday indicates well healing esophageal tear. PHYSICAL EXAM BP 146/81 Pulse 72 Temp 37.3 ?C (99.1 ?F) (Oral) Resp 22 Ht 177.8 cm (5' 10) Wt 104.3 kg (229 lb 15 oz) SpO2 97% BMI 32.99 kg/m? Intake/Output Summary (Last 24 hours) at 04/27/18 1018 Last data filed at 04/27/18 1000 Gross per 24 hour Intake 3466 ml Output 2740 ml Net 726 ml Constitutional: No acute distress HEENT: EOM's intact Resp: Respiratory effort: normal, CT SS, no air leak, on suction Cardiovascular: Cardiac: Regular rate AND rhythm Integumentary: Warm Musculoskeletal: No deformities Neurological/Psychiatric: Alert, some mild confusion Additional systems reviewed: No additional systems reviewed DATA Recent Labs 04/27/18 0237 04/26/18 0148 04/25/18 0215 WBC 6.78 7.02 8.65 HB 7.3* 6.9* 7.4* HCT 23.8* 22.2* 23.5* PLT 132* 131* 131* Recent Labs 04/27/1823604/26/18 0148 04/25/18 0215 NA 149* 148* 147* K 4.8 4.0 4.4 CO2 21* 25 24 BUN 42* 46* 45* CREAT 1.17 1.07 1.06 GLUC 133* 129* 157* MG 1.9 2.1 1.9 IMAGING I personally reviewed: CXR ASSESSMENT AND PLAN 52 year old male with multiple medical comorbidities now with likely partial thickness esophageal perforation, putatively from S-B tube placement at OSH. It is unlikely that this is the etiology of his massive hemoptysis, reportedly there were multiple varices that, in the background of cirrhosis is the likely etiology of his bleed. While he is requiring high doses of vasopressors, it is unlikely that the source of his shock is purely from his esophageal perforation given his lack of pleural effusion or free flowing contrast. 04/15 EGD showed 5cm esophageal laceration without active bleeding. 04/16 Right chest tube placed for effusion. 04/22 extubated. 04/22 Patient pulled NGT. 04/[address] by 4cm. 04/26 EGD, well healing esophageal tear. ? Plan - daily CXR - esophagram today - will f/u esophagram - possible tPA through chest tube today vs tomorrow Francois Gann MD,PhD Pager [phone] 04/27/2018 10:18 AM Rosa Maria Gan MD 04/27/2018 1:36 PM Addendum SICU PROCEDURE NOTE PROCEDURE DATE: 04/27/2018 PROCEDURE START TIME: 11:35 AM INFORMED CONSENT Please refer to the electronically signed consent form, located under the Encounters tab of the electronic medical record. [place] Protocol / Safety Checklist The sign in communication was completed. The procedural team confirmed the correct patient, the correct procedure and the correct site during the audible time out. The time out was affirmed. The sign out discussion was completed. UNIVERSAL PROTOCOL / SAFETY CHECKLIST Sign in Communication: Completed Time Out: Team Confirms the Correct Patient, Correct Procedure, Correct Site and Site Marking, Correct Position (if applicable), Prep and Dry Time (if applicable). Time: 11:35 AM Affirmation of Time Out: YES Sign Out Discussion: Completed PROCEDURE: CENTRAL VENOUS LINE INSERTION Indication: Total parenteral nutrition Insertion Type: New stick Site: Left internal jugular vein Inserted By: Gloria Crawford [facility] resident Supervision: Dr. Rosa Maria Gan [facility] Central Line Insertion checklist, attached to the Central Line-Associated Bloodstream Infection Prevention Policy, was utilized during this procedure. Ultrasound Used for Insertion: Yes, image not captured All personnel involved with the procedure used caps, masks with eye hawkins, sterile gowns and sterile gloves. The area was prepped with chlorhexidine gluconate and draped with a full-body sterile drape following the usual aseptic technique . Anesthesia was obtained with local infiltration of 1% lidocaine. The vessel was cannulated under direct ultrasound visualization with a 6.35 cm, 18 gauge single lumen catheter on the first attempt. The vessel was transduced to confirm venous placement. A J-tipped spring wire was passed into the vein through the indwelling catheter and left in situ while the catheter was removed. A small skin incision was made and the tract was dilated with a semi-rigid tissue dilator. A 20 cm triple-lumen, 7 Fr, non-tunneled, pressure injectable, antimicrobial catheter was advanced over the guidewire and left in situ while the guidewire was removed. All ports were capped with sterile site caps, venous blood was aspirated from all ports and all ports were flushed with sterile saline solution. The catheter was secured in place at 20 cm with sterile sutures and a sterile, transparent, occlusive chlorhexidine dressing was placed over the site. A portable CXR was ordered. All catheters, needles and wires were accounted for and intact. The patient tolerated the procedure well and without apparent complications No Specimens Collected Unless Noted Here Estimated Blood Loss: None SIGNATURE: Gloria Crawford MD PATIENT NAME: Lazaro Villafana DATE: April 27, 2018 TIME: 11:59 AM PAGER/CONTACT #: [phone] SICU STAFF NOTE I was present for supervision of placement of L IJ triple lumen central line. Rosa Maria Gan MD Previous Version Sari Weston RD [facility] 04/27/2018 1:02 PM Signed NUTRITION SUPPORT TEAM PROGRESS NOTE SERVICE DATE: 04/27/2018 SERVICE TIME: 1004 RECOMMENDED DIAGNOSIS: MILD PROTEIN-CALORIE MALNUTRITION per Registered Dietitian on 04/17 NUTRITION CARE PLAN Intervention: 1. ?Continue TPN ?- PN to provide 120gms 15% AA, 1170 dextrose calories, 1680ml?at 70ml/hr ?- orders pended with reduced K+ acetate, reduced NaPhos, slight incr MgSO4, MVI, MTE, 70u insulin (1:5 ratio), 100mg thiamine 2. ?Start 250ml IVPB lipids 20% fat emulsion MWF 04/27 ? Monitor and Evaluation: Goal: Meet >75% of estimated needs Monitor fluid/electrolyte balance Monitor labs, I/Os, vital signs, weight ? Discharge Nutrition Recommendations:? To be determined ? 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 Patient initially presented with hematemesis and melena with accompanying dizziness and shortness of breath. Transferred to [facility] SICU on 04/14 for further management. s/p EGD 04/15?which showed a deep esophageal tear. ?Plan for a minimum of NPO x 2 weeks. ?04/16 Right chest tube placed for effusion. Interval History: plan for new CVC today Pt is febrile with Tmax: 38.8 Resp: nasal cannula I/O's: Intake/Output Summary (Last 24 hours) at 04/27/18 1257 Last data filed at 04/27/18 1200 Gross per 24 hour Intake 3466 ml Output 2740 ml Net 726 ml overall 47486.6 Abdomen: not assessed Last BM: 04/26 Enteral access: ?n/a; plan for EGD guided post pyloric feeding tube placement Parenteral access: ?right IJ TLC placed 04/14 Labs: hypernatremia, hyperchloremia, hypocapnia, Mg suboptimal, K+ trended up Blood Gases: n/a Blood sugars: 113, 126, 123 Cultures: blood cx x 2 in process Imaging: n/a Nutritional Intake: Intake History BI DATA ARCHITECT: Unable to determine Current intake: 04/17: ?Average 5 day intakes meeting <50% of estimated energy need.s started on PN 04/17 due to esophageal tear, plan for NPO x 2 weeks 04/18: currently goal kcals, PN 940 kcals, 110 g pro + propofol 765 kcals/day 04/20: ?TPN wirh orders 04/17 - 04/19 to provide 110gms protein and 940 claories + additional calories from propofol (04/19 provided 626 calories) 04/21 - 04/22: ?PN with orders 04/20 - 04/21?to provide 100gms protein and 1000 calories + additional calories from propofol 04/25: ?PN with orders 04/22 - 04/24 to provide 110gms protein and 1040 calories 04/26 - 04/27: PN with orders 04/25 - 04/26 to provide 120gms protein and 1600 calories Current Diet Order DIET NPO Lines and Drains: Central Line Triple Lumen 04/14/18 2319 Non-tunneled Right Neck (Active) Peripheral 04/14/18 2344 Left Antecubital 18 Gauge (Active) Indwelling Urinary Catheter 04/25/18 1916 Mcclain 16 Fr (Active) Chest Tube 04/16/18 2100 Right 28 Fr (Active) Height: 177.8 cm (5' 10) Admission Weight: 106.1 kg (233 lb 14.5 oz) Current Weight: 104.3 kg (229 lb 15 oz) Body mass index is 32.99 kg/m?. Usual body weight ?Unable to determine? No weight history available. ? Estimated nutrition goals: [place] body weight: 75.4 kg Dosing weight: 106?kg (04/14; BMI 33.5kg/m2)?? Calorie needs 3989-1711?kilocalories determined by = 15-20?kcals/kg Dosing?weight? Protein needs: 90 - 121?grams determined by 1.2 -1.6g/kg ideal?weight?- due to CKD Temp (24hrs), Av.4 ?C (99.3 ?F), Min:36.6 ?C (97.9 ?F), Max:38.8 ?C (101.8 ?F) Recent Labs 04/27/18 0237 GLUC 133* BUN 42* CREAT 1.17 NA 149* K 4.8 CHLOR 116* CO2 21* P 3.9 HB 7.3* HCT 23.8* WBC 6.78 MG 1.9 Vitamin and Mineral Labs in the past year:No results for input(s): CHROMIUM, COPPER, MANGANESE, SELENIUM, VITAMINA, VITB1, VITB2, VITB6, B12, METHYLMAL, VITD25, VITAMINE, VITAK, ZINC, TIBC, FE, JOHANNY in the last 8784 hours. MNT Billing Type: Re-assess/15 min 2 units SIGNATURE: Sari Weston RD [facility] PATIENT NAME: Lazaro Villafana DATE: April 27, 2018 TIME: 12:54 PM PAGER: [phone] Ekaterina Zabala, PT 04/27/2018 1:46 PM Signed PHYSICAL THERAPY MISSED VISIT SERVICE DATE: 04/27/2018 SERVICE TIME: 1343 to 1343 ROOM: [place] [address] Attempted Treatment. Patient not seen due to Test/Procedure. Currently leaving the unit with transport for esophogram. Attempted in the AM and RN advised deferring PT d/t agitation. SIGNATURE: Ekaterina Zabala PT PATIENT NAME: Lazaro Villafana DATE: April 27, 2018 TIME: 1:44 PM Maranda Pickard Rt 04/27/2018 2:24 PM Signed Radiology Service Progress Note PATIENT NAME: Lazaro Villafana DATE OF SERVICE: April 27, 2018 TIME: 2:22 PM PATIENT IDENTITY VERIFICATION COMPLETED USING TWO (2) METHODS: Patient confirmed name verbally and Date of . PATIENT GENDER DATA: Male PATIENT RELEVANT IMPLANT DATA REVIEWED: Yes RADIOLOGY DEPARTMENT: General X-ray: Exam(s) Completed: GI/ Procedure(s): Esophogram with water soluable contrast PERIPHERAL IV DATA: Not applicable SIGNED BY: Maranda Pickard Rt April 27, 2018 2:22 PM Gab Castillo MD 04/28/2018 8:34 AM Attested Addendum Attestation signed by Scotty Jerry at 04/28/2018 12:40 PM Attending Note I evaluated the patient and personally participated in the jang components. I agree with the resident's findings and plan as documented and have discussed the case and management of the patient's care with the resident. Clinical trajectory discussed with Dr. Soto this morning. Patient with ongoing fevers and active leak from esophagus. We will ask GI about possible stent and Dr. Soto mentioned possible VATS vs additional pigtail drain. MELD score is currently 12. He likely needs diversion with SF and VATS for management of the right sided hydropneumothorax as currently source control has not been achieved. Discussed complexity of situation with Dr. Soto. Signature: Scotty Jerry MD Date: 04/28/2018 Time: 12:34 PM Acute Care Surgery PROGRESS NOTE Lazaro Villafana [id number] 04/28/2018 ASSESSMENT/PLAN: Lazaro Villafana is a 52 year old male with PMHx type II DM, poorly controlled HTN, CKD, COPD, tobacco smoker 2-3 PPD, alcohol use disorder with recent diagnosis of cirrhosis w/ esophageal varices who presents on transfer from OSH with hematemesis s/p EGD at OSH c/b esophageal laceration that appears to be contained; MELD >?20, currently with R-sided chest tube for hydropneumothorax, NPO and on TPN. Intermittent fevers. EGD done 04/26 with finding of partial mucosal tear in mid esophagus. Esophagram (04/27) showing persistent leak in esophagus. ? - Continue strict NPO, TPN - Remains intermittently febrile - Will need to discuss with Thoracic surgery and GI regarding further management of leak - Hgb stable - Continue to monitor chest tube output - Please apply Doc hose to legs - Continue supportive/SICU care ? To be discussed with staff, After 6pm and on weekends and holidays, please page General Surgery on-call [phone] Gab Castillo MD General Surgery, PGY-1 SUBJECTIVE 24 hour events: No acute events No pressor requirements Febrile overnight Pain is well controlled on current regimen. DIET NPO diet with no n/v OBJECTIVE Intake/Output Summary (Last 24 hours) at 04/28/18 0516 Last data filed at 04/28/18 0400 Gross per 24 hour Intake 3980 ml Output 2670 ml Net 1310 ml PHYSICAL EXAM: BP 145/65 Pulse 91 Temp (Src) 100.8 (Oral) Resp 16 Ht 5' 10 (1.78m) Wt 229 lb 15 oz (104.3kg) SpO2 95% BMI 32.99 kg/(m2). Gen: Awake, alert Lungs: No respiratory distress, 2L NC, CT with thick, dark, serosanguinous output Abdomen: soft, ntnd Ext: No edema, SCDs in place DATA: Date 04/27/18 07 - 04/28/18 0659 04/28/18 07 - 04/29/18 0659 Shift 3288-5516 1834-0018 7922-1905 24 Hour Total 5804-4522 2973-6135 3115-8147 24 Hour Total I N T A K E IV 1205 1205 D5W 1061 1061 Dexmedetomidine IV 144 144 TPN/PPN 824 824 TPN 824 824 Shift Total 2028 2028 O U T P U T Urine 800 500 510 1698 Output ( Indwelling Urinary Catheter 04/25/18 1916 Mcclain 16 Fr) 800 665 491 2790 Chest Tube 50 50 Chest Tube Output (Chest Tube 04/16/18 2100 Right 28 Fr) 50 50 # of BMs Number of BMs 0 x 0 x Shift Total 800 846 011 3889 Weight (kg) 104.3 104.3 104.3 104.3 104.3 104.3 104.3 104.3 Diagnostic tests reviewed for today's visit: Most recent labs and imaging results. CBC, Coags, BMP, Mg, Phos Recent Labs 04/28/18 0106 04/27/18 0237 04/26/18 1024 04/26/18 0148 04/25/18 1043 WBC 7.63 6.78 -- 7.02 -- HB 7.8* 7.3* -- 6.9* -- HCT 25.5* 23.8* -- 22.2* -- PLT 145* 132* -- 131* -- NA -- 149* -- 148* -- K -- 4.8 -- 4.0 -- CHLOR -- 116* -- 112* -- CO2 -- 21* -- 25 -- BUN -- 42* -- 46* -- CREAT -- 1.17 -- 1.07 -- GLUC -- 133* -- 129* -- IC -- -- 1.13 -- 1.16 CA -- 8.0* -- 8.0* -- MG 1.9 1.9 -- 2.1 -- P 3.6 3.9 -- 3.4 -- Liver Function, Amylase, AND Lipase Recent Labs 04/26/18 1024 04/25/18 1043 LACT 1.0 1.1 Previous Version Muriel Flanagan MD 04/28/2018 9:18 PM Signed INFECTIOUS DISEASES PROGRESS NOTE Patient Name: Lazaro Villafana Account #: Data Unavailable Admission Date: 04/14/2018 Date of Evaluation: 04/28/2018 Time of Evaluation: 10:20 AM INTERVAL HPI: Febrile to 100.8F overnight, otherwise hemodynamically stable. RIJ CVC replaced for LIJ CVC 04/27/18. CXR with some improvement over Right lung alvarez. Bedside GI scope performed 04/26/18. Partial esophageal tear reported healing well; corpak placed but subsequently removed by patient. Esophagram 04/27/18 confirmed perforation. No definitive interventions planned. Metronidazole 04/15 Fluconazole 04/15 Vancomycin 04/20 Aztreonam 04/22 MEDICATIONS: Current hospital medications: dextrose 5% in water iv infusion 5-30 mL/hr INTRAVENOUS CONTINUOUS Parenteral Nutrition - Adult INTRAVENOUS ONCE TPN (2200 START) fat emulsion infusion 20% (INTRALIPID) 250 mL INTRAVENOUS MO-WE-FR (10PM) metoprolol 10 mg injection (LOPRESSOR) 10 mg INTRAVENOUS q 6 HR dexmedetomidine 400 mcg in NaCl 0.9% 100 mL (PRECEDEX) 0.2- 1 mcg/kg/hr INTRAVENOUS CONTINUOUS OLANZapine orally disintegrating 10 mg tab(s) (ZyPREXA ZYDIS) 10 mg ORAL AT BEDTIME lidocaine 5 % 1 Patch (LIDODERM) 1 Patch TRANSDERMAL DAILY lidocaine patch - REMOVE OTHER AT BEDTIME lidocaine - VERIFY PATCH OTHER q 8 H labetalol 10 mg injection syringe (NORMODYNE) 10 mg INTRAVENOUS q 2 H PRN insulin glargine 20 Units pen (long acting) (LANTUS SOLOSTAR, BASAGLAR KWIKPEN) 20 Units SUBCUTANEOUS AT BEDTIME vancomycin iv piggyback 1 g in D5W 200 mL (VANCOCIN) 1 g INTRAVENOUS q 12 HR aztreonam 2 g in D5W 100 mL MB+ (AZACTAM) 2 g INTRAVENOUS q 6 HR heparin 5,000 Units injection 5,000 Units SUBCUTANEOUS q 12 H fluconazole 400 mg in NaCl (iso-osmotic) 200 mL (DIFLUCAN) 400 mg INTRAVENOUS DAILY vancomycin dosing and monitoring per pharmacy OTHER As Directed insulin regular human injection (short acting) (NovoLIN R,HumuLIN R) SUBCUTANEOUS q 6 H potassium chloride iv piggyback 20 mEq/100 mL 20 mEq INTRAVENOUS PRN potassium chloride 20-80 mEq CUP 20-80 mEq ORAL/FEEDING TUBE PRN magnesium sulfate in water 2 g in sterile water 50 ml 2 g INTRAVENOUS PRN sodium glycerophosphate 15 mmol in D5W 250 mL (GLYCOPHOS) 15 mmol INTRAVENOUS PRN sodium glycerophosphate 30 mmol in D5W 250 mL (GLYCOPHOS) 30 mmol INTRAVENOUS PRN sodium glycerophosphate 45 mmol in D5W 250 mL (GLYCOPHOS) 45 mmol INTRAVENOUS PRN dextrose 40 % 15 g 15 g ORAL PRN glucagon 1 mg injection (GLUCAGEN) 1 mg INTRAMUSCULAR PRN dextrose 50 % 12.5 g injection 12.5 g INTRAVENOUS PRN NaCl 0.9% 3-5 mL 3-5 mL INTRAVENOUS q 12 H fentaNYL 50 mcg/mL 25-50 mcg injection (SUBLIMAZE) 25-50 mcg INTRAVENOUS q 1 H PRN metroNIDAZOLE 500 mg PREMIX piggyback (FLAGYL) 500 mg INTRAVENOUS q 8 H ipratropium-albuterol 3 mL nebulizer solution (DUONEB) 3 mL INHALATION q 4 H PRN pantoprazole 40 mg injection (PROTONIX) 40 mg INTRAVENOUS BID AC (0600/1600) PHYSICAL EXAM: BP 145/65 Pulse 91 Temp (!) 38.2 ?C (100.8 ?F) (Oral) Resp 16 Ht 177.8 cm (5' 10) Wt 104.3 kg (229 lb 15 oz) SpO2 95% BMI 32.99 kg/m? Lines: Nontunnelled triple lumen 04/27 Left neck ?GEN: OOB with PT SKIN: No lesions noted. EYES: PERRLA NECK: L nontunnelled triple lumen catheter with no overlying erythema, swelling or warmth. LUNGS: clear to auscultation, no wheezes, or crackles. HEART: ?Regular rate/rhythm, normal heart sounds, and no murmurs. ABDOMEN: Soft, epigastric tenderness, hypoactive BS EXTREMITIES: Edema of hands b/l, no LE edema. +mcclain + right sided chest tube with unchanged, chunky fluid Labs: WBC 7.63, Hgb 7.8, Plt 145, Cr 1.17 +1360 cc/24 hours Micro and radiology personally reviewed 04/14/18: Quantiferon gold testing negative for TB 04/14/18: Blood cultures 04/19 no growth 04/14/18: MSSA nasal swab positive 04/17/18: MSSA nasal swab positive 04/17/18: Blood cultures 2/2 no growth 04/20/18: Blood cultures 2/2 no growth 04/20/18: Tracheal aspirate cultures no organisms on gram stain and no growth on culture 04/22/18: Fungitell negative 04/23/18: Sputum cultures normal abby 04/24/18: Staphylococcal nasal swab negative 04/27/18: Blood cultures 2/[address] Chest 04/17/18: IMPRESSION: 1. ?NEW MULTIFOCAL CONSOLIDATIVE/GROUNDGLASS OPACITIES PREDOMINANTLY LEFT UPPER LOBE AND LINGULA, MAY REPRESENT MULTIFOCAL PNEUMONIA/ASPIRATION PNEUMONITIS, HEMORRHAGE OR ASYMMETRIC EDEMA. ?RADIOGRAPHIC FOLLOW-UP IS RECOMMENDED.. 2. ?BILATERAL LOWER LOBE AIRSPACE OPACITIES WITH VOLUME LOSS, RIGHT GREATER THAN LEFT, MOST LIKELY ATELECTASIS WITH POSSIBLE SUPERIMPOSED INFECTIOUS PROCESS. 3. ?LIMITED EVALUATION OF PREVIOUSLY SEEN MID ESOPHAGEAL CONTRAST EXTRAVASATION/TEAR. ?SMALL FOCI OF RIGHT-SIDED PNEUMOMEDIASTINUM, NOT SIGNIFICANTLY CHANGED. ?SMALL FOCI OF PNEUMOMEDIASTINUM HAVE DEVELOPED SUPERIORLY. ?THESE COULD BE FROM RECENT INTERVENTION. 4. SMALL BILATERAL PLEURAL COLLECTIONS HAVE SLIGHTLY INCREASED COMPARED TO PRIOR EXAM. ?THE AIR COMPONENTS OF THE RIGHT PLEURAL COLLECTION ARE NEW SINCE PREVIOUS EXAM, LIKELY RELATED TO ?INTERVAL PLACEMENT OF RIGHT APICAL CHEST TUBE. US upper extremities 04/20/18: IMPRESSION ? RIGHT SIDE - DEEP VEINS Technically limited study. Negative for acute deep vein thrombosis in vessels visualized. Unable to visualize the internal jugular vein due to IV lines and bandages. RIGHT SIDE - SUPERFICIAL VEINS Acute superficial thrombophlebitis in the cephalic vein antecubital fossa to wrist. Acute superficial thrombophlebitis in the basilic vein mid upper arm to wrist. Acute superficial thrombophlebitis in the median cubital vein at the antecubital fossa. ? LEFT SIDE - DEEP VEINS Spontaneous and respirophasic flow noted in the subclavian vein at proximal. CT Chest 04/21/18: IMPRESSION: 1. ?Unchanged right hydropneumothorax with right thoracostomy tube and associated right lower lobe atelectasis. ?Superimposed infection/aspiration cannot be excluded. 2. ?Groundglass opacities in the left upper lobe and lingula, likely infectious/inflammatory. ?Left apical consolidation has decreased since the prior exam. 3. ?Circumferential wall thickening of the esophagus. ?Known esophageal tear is not visualized on this examination. 4. ?Mediastinal lymphadenopathy, likely reactive. CT Chest 04/24/18: IMPRESSION: 1. Small to medium-sized right loculated hydropneumothorax with associated right pleural thickening and adjacent right lower lobe atelectasis/consolidation (most likely due to infection), without significant change. Right thoracostomy tube stable in position. 2. Scattered ground-glass opacities within the upper lobes, new within the right upper lobe and stable to slightly decreased in the left upper lobe. These are most likely infectious/inflammatory in origin. Additional small ground-glass and small consolidative opacities within the inferior left lower lobe with adjacent centrilobular nodular opacities are most likely infectious and, in this location, may be related to aspiration. 3. Interval resolution of the left pleural effusion with overall decreased atelectasis in the left lower lobe. 4. Thoracic lymphadenopathy, likely reactive. 5. Known esophageal perforation; small locules of gas extending from the level of the distal esophagus into the right pleural space (images 90-93) may correspond to the site of perforation. ? EGD 04/27/18: Impression: ? - Mucosal tear in the middle third of the esophagus ? healing well. ? - Portal hypertensive gastropathy. ? - Normal examined duodenum. ? - Feeding tube placement was successfully performed. ? Please confirm placement with KUB. ? - No specimens collected. Esophagram 04/27/18: PERSISTENT RIGHT MIDESOPHAGEAL PERFORATION DESCRIBED, CORRELATING WITH PRIOR. IMPRESSION / PLAN 52 yo M with a h/o cirrhosis, EtoH related, CKD, COPD and reported + PPD in the past. Currently no clinical or imaging evidence of active pulmonary TB. Presenting with hemorrhagic shock secondary to hematemesis/esophageal tear c/b pneumomediastinum; no surgical intervention planned at this time. EGD 04/26/18 with reported improvement in esophageal tear (31-38cm). Plans for PICC for TPN noted. Plan: - continue vancomycin (goal trough 15-25), aztreonam, metronidazole, fluconazole as ordered for now, will likely continue antibiotics until blood cultures finalize - will follow blood cultures 04/27/17, would hold off on PICC placement until confirmed no growth for 48 hours - order HIV Ag/Ab and Hepatitis C Antibody screening Will discuss with attending, Perla Delgado PGY4 ID STAFF I evaluated the patient and personally participated in the jang components. I agree with the fellow's findings and plan as documented and have discussed the case and management of the patient's care with the fellow. I have reviewed and verified pertinent data. More awake, no new complaints Discussed with patient jolanta--gives him severe headache Plan as above Muriel Flanagan MD Pager: [phone] April 28, 2018 Previous Version Francois Gann MD,PhD 04/28/2018 11:29 AM Addendum [facility] TH[facility]AC[facility] SURGERY CONSULT PROGRESS NOTE Lazaro Villafana [id number] PRIMARY SERVICE: HOSPITAL DAY: # 14 INTERVAL HISTORY No acute events overnight. Esophagram shows persistent leak. PHYSICAL EXAM BP 145/65 Pulse 91 Temp (!) 38.2 ?C (100.8 ?F) (Oral) Resp 16 Ht 177.8 cm (5' 10) Wt 104.3 kg (229 lb 15 oz) SpO2 95% BMI 32.99 kg/m? Intake/Output Summary (Last 24 hours) at 04/28/18 0620 Last data filed at 04/28/18 0400 Gross per 24 hour Intake 2029 ml Output 2550 ml Net -521 ml Constitutional: No acute distress HEENT: EOM's intact Resp: Respiratory effort: normal, CT SS, no air leak, on suction Cardiovascular: Cardiac: Regular rate AND rhythm Integumentary: Warm Musculoskeletal: No deformities Neurological/Psychiatric: Alert, some mild confusion Additional systems reviewed: No additional systems reviewed DATA Recent Labs 04/28/18 0106 04/27/18 0237 04/26/18 0148 WBC 7.63 6.78 7.02 HB 7.8* 7.3* 6.9* HCT 25.5* 23.8* 22.2* PLT 145* 132* 131* Recent Labs 04/28/18 0106 04/27/18 0237 04/26/18 0148 NA -- 149* 148* K -- 4.8 4.0 CO2 -- 21* 25 BUN -- 42* 46* CREAT -- 1.17 1.07 GLUC -- 133* 129* MG 1.9 1.9 2.1 IMAGING I personally reviewed: CXR ASSESSMENT AND PLAN 52 year old male with multiple medical comorbidities now with likely partial thickness esophageal perforation, putatively from S-B tube placement at OSH. It is unlikely that this is the etiology of his massive hemoptysis, reportedly there were multiple varices that, in the background of cirrhosis is the likely etiology of his bleed. While he is requiring high doses of vasopressors, it is unlikely that the source of his shock is purely from his esophageal perforation given his lack of pleural effusion or free flowing contrast. 04/15 EGD showed 5cm esophageal laceration without active bleeding. 04/16 Right chest tube placed for effusion. 04/22 extubated. 04/22 Patient pulled NGT. 04/[address] by 4cm. 04/26 EGD, well healing esophageal tear. 04/27 esophagram shows persistent leak. ?? Plan - no surgical intervention at this point - daily CXR - STRICT NPO - Reconsider stent - Image guided pigtail placement to drain fissure fluid collection - will continue to follow ? Plan discussed with Dr. Soto. Francois Gann MD,PhD Pager [phone] 04/28/2018 6:20 AM Previous Version Rosa Maria Gan MD 04/28/2018 12:07 PM Addendum SURGICAL INTENSIVE CARE UNIT PROGRESS NOTE SERVICE DATE: April 28, 2018 SERVICE TIME: 8:52 AM Subjective MAJOR ISSUES: febrile o/n 38.2 04/28 at 0400, cultures from 04/27 pending. Lines exchanged yesterday Esophogram demonstrating R midesophageal perforation Objective VITAL SIGNS Temp: 36.8 ?C (98.2 ?F) Pulse: 87 Arterial BP 1: 142/69 MAP Invasive (Mean Arterial Pressure) 1: 91 Resp: 27 SpO2: 95 % 145/68 Not applicable Current Facility-Administered Medications: dextrose 5% in water iv infusion 5-30 mL/hr INTRAVENOUS CONTINUOUS Parenteral Nutrition - Adult INTRAVENOUS ONCE TPN (2200 START) fat emulsion infusion 20% (INTRALIPID) 250 mL INTRAVENOUS MO-WE-FR (10PM) metoprolol 10 mg injection (LOPRESSOR) 10 mg INTRAVENOUS q 6 HR dexmedetomidine 400 mcg in NaCl 0.9% 100 mL (PRECEDEX) 0.2- 1 mcg/kg/hr INTRAVENOUS CONTINUOUS OLANZapine orally disintegrating 10 mg tab(s) (ZyPREXA ZYDIS) 10 mg ORAL AT BEDTIME lidocaine 5 % 1 Patch (LIDODERM) 1 Patch TRANSDERMAL DAILY And lidocaine patch - REMOVE OTHER AT BEDTIME And lidocaine - VERIFY PATCH OTHER q 8 H labetalol 10 mg injection syringe (NORMODYNE) 10 mg INTRAVENOUS q 2 H PRN insulin glargine 20 Units pen (long acting) (LANTUS SOLOSTAR, BASAGLAR KWIKPEN) 20 Units SUBCUTANEOUS AT BEDTIME vancomycin iv piggyback 1 g in D5W 200 mL (VANCOCIN) 1 g INTRAVENOUS q 12 HR aztreonam 2 g in D5W 100 mL MB+ (AZACTAM) 2 g INTRAVENOUS q 6 HR heparin 5,000 Units injection 5,000 Units SUBCUTANEOUS q 12 H fluconazole 400 mg in NaCl (iso-osmotic) 200 mL (DIFLUCAN) 400 mg INTRAVENOUS DAILY vancomycin dosing and monitoring per pharmacy OTHER As Directed insulin regular human injection (short acting) (NovoLIN R,HumuLIN R) SUBCUTANEOUS q 6 H potassium chloride iv piggyback 20 mEq/100 mL 20 mEq INTRAVENOUS PRN Or potassium chloride 20-80 mEq CUP 20-80 mEq ORAL/FEEDING TUBE PRN magnesium sulfate in water 2 g in sterile water 50 ml 2 g INTRAVENOUS PRN sodium glycerophosphate 15 mmol in D5W 250 mL (GLYCOPHOS) 15 mmol INTRAVENOUS PRN Or sodium glycerophosphate 30 mmol in D5W 250 mL (GLYCOPHOS) 30 mmol INTRAVENOUS PRN Or sodium glycerophosphate 45 mmol in D5W 250 mL (GLYCOPHOS) 45 mmol INTRAVENOUS PRN dextrose 40 % 15 g 15 g ORAL PRN Or glucagon 1 mg injection (GLUCAGEN) 1 mg INTRAMUSCULAR PRN Or dextrose 50 % 12.5 g injection 12.5 g INTRAVENOUS PRN NaCl 0.9% 3-5 mL 3-5 mL INTRAVENOUS q 12 H fentaNYL 50 mcg/mL 25-50 mcg injection (SUBLIMAZE) 25-50 mcg INTRAVENOUS q 1 H PRN metroNIDAZOLE 500 mg PREMIX piggyback (FLAGYL) 500 mg INTRAVENOUS q 8 H ipratropium-albuterol 3 mL nebulizer solution (DUONEB) 3 mL INHALATION q 4 H PRN pantoprazole 40 mg injection (PROTONIX) 40 mg INTRAVENOUS BID AC (0600/1600) Cardiovascular: Regular rhythm Abdomen: soft NT, distended Extremities: tr edema Neuro: Awake oriented x3, Follows commands and Alert Pulm: exp wheezes on R, clear on L. On 2L O2 NC Mcclain barriga UO R chest tube c/d/i L triple lumen Intake/Output Summary (Last 24 hours) at 04/28/18 0852 Last data filed at 04/28/18 0800 Gross per 24 hour Intake 3777.3 ml Output 2910 ml Net 867.3 ml Current Weight: Weight: 105.2 kg (231 lb 14.8 oz) Admission Weight: Weight: 106.1 kg (233 lb 14.5 oz) RESPIRATORY Mechanical Ventilation: No. Supplemental Oxygen: Yes. 2L Recent Labs 04/26/18 1024 04/25/18 1043 PH 7.46* 7.47* PO2 70* 78* PCO2 35 34 BE 1 2 HCO3 24 25 LACT 1.0 1.1 Patient Lines Assessed: Central Line: Site: Left internal jugular , Day #: 1, Rewired: Yes, Fresh stick: Yes Diagnostic tests reviewed for today's visit: Most recent labs and imaging results. Assessment/Plan Neuro:? AANDOx3, extubated -- Prn fentanyl for pain -- Continue lidocaine patch -- Zyprexa at night for agitation -- dexmedetomidine for agitation, wean as tolerated ? CV:? Hx of HTN on losartan and amlodipine at home. -- HDS off pressors -- PRN labetalol for HTN -- Scheduled metoprolol 10mg q6h until able to restart home PO meds; hold parameters in place ? Pulm:? Hx of COPD. Stable respiratory fxn on RA. CT chest with loculated R pleural effusion. CXR with R loculated pleural effusion, interstitial and alveolar opacities unchanged. -- resp culture normal abby -- Duonebs prn -- Monitor chest tube output -- thoracic surgery declines VATS on 04/28 --f/u GI stenting esophagus ? Renal:??(baseline Cr ~1.2 from 02/2018) -- Stable kidney function, good UOP -- Discontinue Mcclain -- repeat BMP ? GI:? Likely partial thickness mid-distal esophageal perforation, not amenable to stenting. EtOH cirrhosis with portal HTN, grade [address] Chest 04/24: Known esophageal perforation; small locules of gas extending from the level of the distal esophagus into the right pleural space (images 90-93) may correspond to the site of perforation. -- NPO until esoph leak healed -- NGT removed by patient (04/22); no need to replace NGT per thoracic (do not place blindly) -- repeat EGD 04/26 showed that esophagus is healing appropriately and there were no varices or active bleeding in esophagus. Corpak placed during EGD but patient subsequently removed corpak shortly after placement. -- Esophagram w leak -- f/u thoracic recs ? Heme:? -- Transfused 1u pRBC for Hgb 6.9 last on 04/26 -- Transfuse to keep Hgb >7 -- SQH ? Fluid/Electrolyte/Nutrition: -- NPO -- Replete lytes as needed -- TPN. incr volume on 04/28 -- D5W for carrier fluid given hypernatremia ? Endo:? Hx of IDDM, HgbA1c 8.2. -- Continue lantus 20 units qHS -- ISS3 -- Nutrition will adjust glargine in TF ? ID:?Esophageal tear and perforation. Aztreonam and flagyl at OSH. -- Intermittent low grade fevers; febrile overnight to 38.8 -- MSSA PCR positive, MRSA PCR negative -- Started Vancomycin on 04/20 per ID recs to cover for GPC -- transitioned cefepime to aztreonam 04/22 -- also on fluconazole (started 04/15), flagyl (started 04/15) -- allergy consult for skin test - negative - tolerated cefepime -- ID following, appreciate recs -- R IJ central line replaced 04/27, A-line from 04/14 removed ? PPX:? -- GI ppx - pantoprazole given GI bleed -- VTE ppx - 5000u BID Medication and Non-Pharmacologic VTE Prophylaxis/Anticoagulants Anticoagulant AND Antiplatelet Medications Start Dose Route Frequency Ordered Stop 04/21/18 0930 heparin 5,000 Units injection 5,000 Units SUBCUTANEOUS EVERY 12 HOURS 04/21/18 0901 -- 04/28/18 0845 graduated compression stockings (nc,ut) 04/14/18 2100 pneumatic compression stockings (nc,ut) 04/14/18 2100 activity - mobilize patient (nc,oh) VTE Prophylaxis: VTE prophylaxis appropriate SIGNATURE: Francisco Díaz MD, PGY-4 resident PATIENT NAME: Lazaro Villafana DATE: April 28, 2018 TIME: 8:52 AM PAGER/CONTACT #: SICU STAFF NOTE I have seen and reviewed the patient today, including physical examination at bedside with the SICU Housestaff and verifying the findings (see resident's documentation); reviewing labs, Xrays; discussing with primary physician and consultants; and developing plan of care with the bedside nurse. This care required my full attention and direct personal management in prevention of imminent clinical deterioration. [LEVEL III] REASON FOR SICU ADMISSION AND PERTINENT RECENT HISTORY: 52 year old man with history of T2DM, HTN, COPD, CKD, alcohol/tobacco abuse, liver cirrhosis with esophageal varices who presented to [facility] after developing a partial thickness esophageal perforation. Initially required intubation, has now been extubated. On broad-spectrum antibiotics with right sided chest tube in place. Intermittent low-grade fevers. Occasionally has agitation delirium. CURRENTLY: Doing well, calm and alert. Esophagram demonstrated ongoing leak. Still spiking fevers. DAILY ASSESSMENTS: Restraints -Unnecessary Central Access -Necessary. Personal evaluation has established that ongoing need exists for TPN Sedation interruption -Not applicable Continued need for urinary catheter: D/C Urinary Catheter IMPRESSION AND PLAN: 52 year old man with unrepaired partial thickness esophageal perforation. Has ongoing mediastinitis with fevers and purulent chest tube output as well as hydropneumothorax on chest CT. Is receiving appropriate antibiotic therapy. Stable and clinically improved from a cardiac and pulmonary standpoint. No pressors, on minimal O2 requirement. Underwent EGD, partial thickness tear is resolving. Esophogram with ongoing leak. Has hydropneumothorax, pleural effusion with empyema. Acute post-operative pain: IV fentanyl PRN, has lidocaine patches over chest tube site as well Hypertension: continue IV metoprolol Acute respiratory insufficiency, RLL lung consolidation, COPD: doing well on RA to 2L NC currently. Will encourage IS use, ambulation, out of bed Mediastinitis related to esophageal perforation: Continue aztreonam, fluconazole, flagyl, vancomycin. Thoracic surgery, general surgery, and GI following. Ongoing esophageal leak. Appreciate surgical team's input. Still spiking fevers, would benefit from source control via stenting, VATs T2DM: SSI, target blood glucose < 200 Severe protein-calorie malnutrition: patient TPN-dependent, strict NPO until cleared by thoracic surgery. Hyperactive delirium: Olanzepine ordered. improving Prophy: Protonix, SQH Lines: discontinue mcclain Dispo: SICU SIGNATURE: Rosa Maria Gan MD DATE: April 28, 2018 TIME: 12:03 PM Previous Version Elliot Soto MD 04/28/2018 9:55 AM Incomplete Ekaterina Zabala PT 04/28/2018 11:09 AM Signed Physical Therapy Treatment SERVICE DATE: 04/28/2018 SERVICE TIME: 1015 to 1048 ROOM: [place] [id number] Recommended Discharge Disposition: Unable to determine due to critical care status PT Recommendations to Nursing: Passive lift to/from chair;Utilize bed in chair position PT 6 Clicks Score: 10 Precautions/Activity Restrictions: Lines/Tubes/Drains;Fall Risk Precaution/Activity Restriction Comments: R chest tube ASSESSMENT : Patient progressed to stand and step to the chair today however needed extra time, rest breaks, and cues for breathing. Recommend continued skilled PT focusing on transfers and gait. Patient Disposition at Start of Session: Supine in Bed Patient Disposition at End of Session: OOB in Chair;Call Raphael in Reach;SCDs Tolerated Full Session Without limitations Physical Therapy Problem List: Education Deficit;Pain;Safety Deficits;Decreased Activity Tolerance;Decreased Strength;Functional Mobility Impairment;Balance Impaired Patient /Caregiver Goals: Go Home Goals for Plan of Care: Able to perform HEP with: Independent Rolling with: Stand By Assistance Transfer supine to/from sit with: Stand By Assistance Transfer sit to/from stand with: Stand By Assistance Ambulate with: Stand By Assistance Distance: 100ft Device: Wheeled Walker Ambulate up and down steps with: Contact Guard Assistance Number of steps: 3 Device: Rail Transfer: Transfer bed to chair SBA with walker Progress Toward Goals: Progressing as expected Rehab Potential: Good PLAN: Treatment Frequency (times per week): 5 Current admission Treatment Interventions: Education;Strengthening;Functional Mobility Training;Balance Training Plan of Care developed with: Patient TREATMENT INTERVENTIONS: Therapy Diagnosis: Reduced mobility-other Interventions Provided: Therapeutic Activity (60854) Therapeutic Activity (03502) Treatment Minutes: 33 2 units Skilled Intervention(s): -Education to patient : PT Plan, OOB with assist (pt able to verbalize understanding) -Instruction to nursing regarding: mobility recs -Supine to sit: Instruction with logroll. Cues to roll, mobilize LE, weight shift trunk -Sit to/from stand 3x: B UE support to wt shift trunk. Cues to knees for ext to stand -Transfer bed to chair: B UE support to wt shift trunk. Cues to knees for ext. Verbal cues for pacing. -Instruction and verbal cues for pursed lip breathing throughout -Skilled intervention for ICU line/room setup for safe mobility environment -Skilled intervention for vital sign monitoring to assess hemodynamic and respiratory response to activity to prescribe safe intensity and duration of activity/exercise during above interventions -Skilled intervention and time for positioning in chair after session for safety, comfort Total Timed Code Treatment Minutes: 33 Total Treatment Time (minutes): 33 SUBJECTIVE: Current Hospital Course: 52 yo male with hematemesis s/p EGD at OSH c/b esophageal laceration that appears to be contained; MELD > 20, currently with R-sided chest tube for hydropneumothorax, NPO and on TPN. 04/28 stable in ICU Reason for Physical Therapy Consult : Critical care therapy Relevant Past Medical History: CKD. DM. COPD. ETOH. Cirrhosis. HTN. 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 Entry To Home: Stairs Number Of Stairs Into Home: 3 Number Of Stairs To Bed/Bath: 0 Equipment Owned: Cane;Wheeled Walker Prior Functional Level: Within Functional Limits OBJECTIVE: Mini Cog Score: 2 (04/25/18 1145) CURRENT FUNCTIONAL STATUS: Current Functional Mobility Assist Level Additional Information Rolling Moderate Assistance Supine to Sit Moderate Assistance Sit to Supine Maximal Assistance Scooting Moderate Assistance Sit to Stand Moderate Assistance Stand to Sit Moderate Assistance Bed to Chair Moderate Assistance 2 assist Bed To Chair Transfer Equipment: Gait Belt Toilet/Commode Gait Stairs Curb Step Car Transfer -M: 4: Move to chair / commode Please see discipline specific clinical documentation flowsheet for complete details for this therapy evaluation/treatment. SIGNATURE: Ekaterina Zabala PT PATIENT NAME: Lazaro Villafana DATE: April 28, 2018 TIME: 11:06 AM Rene Solorzano II MD FACP 04/28/2018 5:21 PM Addendum Gastroenterology Consult Service Progress Note Department of Gastroenterology AND Hepatology Digestive Disease [facility] Date of Service April 28, 2018 Patient: Lazaro Villafana Medical Record: [id number] Reason for Initial Consult: Esophageal Tear Requesting Service: General Surgery Lazaro Villafana is a 52 year old gentleman with history notable for presumed EtOH related cirrhosis with risk factors for BOONE with disease course c/b portal HTN (EV) who presented with complaints of several day history of nausea, vomiting, melena, and hematemesis prompting tony tube placement at that time (unsure if gastric vs. Gastric and esophageal balloon inflated) found to have partial thickness esophageal tear and large EV. His hospital course c/b mediastinitis with fevers an purulent chest tube output on vancomycin/aztreonam/diflucan, respiratory failure requiring intubation now extubated (04/22) and stable from pulmonary standpoint, and on TPN. EGD (04/14/18): ?4:20 PM - GE junction at 45 cm - Grade II Esophageal varices, 2 columns not actively bleeding - Laceration with adherent clot from 31 - 38 cm from incisors. ? ? EGD (04/15/18): - Deep mucosal tear 31-38 cm from incisors - Large varices in lower third of esophagus - Hematin in stomach - Scope not advanced to duodenum to avoid additional pressure on esophagus EGD (04/26/18): - Mucosal tear in middle third of esophagus from 31 to 38 cm healing well - PHG ? XR Esophagram (04/27/18): Persistent right mid-esophageal perforation ? GI re-consulted for possible esophageal stent placement. ? Plan: -Will plan for esophageal stent placement tomorrow in Q3 under fluoroscopy - Ensure active type and screen, Hgb >7, Plt > 50K, and INR <1.7 in anticipation of procedure - Continue broad spectrum antibiotics - Strict NPO Discussed with Dr. Solorzano Subjective: - EGD on 04/26 with healing esophageal tear - XR esophagram on 04/27 with persistent perforation and contrast leak from the right mid-esophagus c/w perforation and corresponding to his right purulent pleural effusion - HD stable on RA Current hospital medications: Parenteral Nutrition - Adult INTRAVENOUS ONCE TPN (2200 START) dextrose 5% in water iv infusion 5-30 mL/hr INTRAVENOUS CONTINUOUS Parenteral Nutrition - Adult INTRAVENOUS ONCE TPN (2200 START) fat emulsion infusion 20% (INTRALIPID) 250 mL INTRAVENOUS MO-WE-FR (10PM) metoprolol 10 mg injection (LOPRESSOR) 10 mg INTRAVENOUS q 6 HR OLANZapine orally disintegrating 10 mg tab(s) (ZyPREXA ZYDIS) 10 mg ORAL AT BEDTIME lidocaine 5 % 1 Patch (LIDODERM) 1 Patch TRANSDERMAL DAILY lidocaine patch - REMOVE OTHER AT BEDTIME lidocaine - VERIFY PATCH OTHER q 8 H labetalol 10 mg injection syringe (NORMODYNE) 10 mg INTRAVENOUS q 2 H PRN insulin glargine 20 Units pen (long acting) (LANTUS SOLOSTAR, BASAGLAR KWIKPEN) 20 Units SUBCUTANEOUS AT BEDTIME vancomycin iv piggyback 1 g in D5W 200 mL (VANCOCIN) 1 g INTRAVENOUS q 12 HR aztreonam 2 g in D5W 100 mL MB+ (AZACTAM) 2 g INTRAVENOUS q 6 HR heparin 5,000 Units injection 5,000 Units SUBCUTANEOUS q 12 H fluconazole 400 mg in NaCl (iso-osmotic) 200 mL (DIFLUCAN) 400 mg INTRAVENOUS DAILY vancomycin dosing and monitoring per pharmacy OTHER As Directed insulin regular human injection (short acting) (NovoLIN R,HumuLIN R) SUBCUTANEOUS q 6 H potassium chloride iv piggyback 20 mEq/100 mL 20 mEq INTRAVENOUS PRN potassium chloride 20-80 mEq CUP 20-80 mEq ORAL/FEEDING TUBE PRN magnesium sulfate in water 2 g in sterile water 50 ml 2 g INTRAVENOUS PRN sodium glycerophosphate 15 mmol in D5W 250 mL (GLYCOPHOS) 15 mmol INTRAVENOUS PRN sodium glycerophosphate 30 mmol in D5W 250 mL (GLYCOPHOS) 30 mmol INTRAVENOUS PRN sodium glycerophosphate 45 mmol in D5W 250 mL (GLYCOPHOS) 45 mmol INTRAVENOUS PRN dextrose 40 % 15 g 15 g ORAL PRN glucagon 1 mg injection (GLUCAGEN) 1 mg INTRAMUSCULAR PRN dextrose 50 % 12.5 g injection 12.5 g INTRAVENOUS PRN NaCl 0.9% 3-5 mL 3-5 mL INTRAVENOUS q 12 H fentaNYL 50 mcg/mL 25-50 mcg injection (SUBLIMAZE) 25-50 mcg INTRAVENOUS q 1 H PRN metroNIDAZOLE 500 mg PREMIX piggyback (FLAGYL) 500 mg INTRAVENOUS q 8 H ipratropium-albuterol 3 mL nebulizer solution (DUONEB) 3 mL INHALATION q 4 H PRN pantoprazole 40 mg injection (PROTONIX) 40 mg INTRAVENOUS BID AC (0600/1600) Physical Exam: Vital Signs 04/28/18 0800 04/28/18 0900 04/28/18 1000 04/28/18 1100 BP: 145/68 136/84 138/80 131/67 Pulse: 87 92 92 106 Resp: 27 26 28 28 Temp: 36.8 ?C (98.2 ?F) TempSrc: Oral SpO2: 95% 96% 95% 96% Weight: Height: Intake/Output Summary (Last 24 hours) at 04/28/18 1118 Last data filed at 04/28/18 1100 Gross per 24 hour Intake 3777.3 ml Output 2940 ml Net 837.3 ml VITAL SIGNS: BP 131/67 Pulse 106 Temp (Src) 98.2 (Oral) Resp 28 Ht 5' 10 (1.78m) Wt 231 lb 14.8 oz (105.2kg) SpO2 96% BMI 33.28 kg/(m2). General appearance: well appearing, alert, in no acute distress Skin: no rashes or lesions Lungs: lungs clear to auscultation, no wheezing or rhonchi Heart: RRR without murmur Abdomen: Abdomen soft, non-tender. Bowel sounds normal. Extremities: Extremities normal. Musculoskeletal: Muscular strength grossly intact Neuro: CN2-12 grossly intact Labs: CBC, Coags, BMP, Mg, Phos Recent Labs 04/28/18 0106 04/27/18 0237 04/26/18 1024 04/26/18 0148 WBC 7.63 6.78 -- 7.02 HB 7.8* 7.3* -- 6.9* HCT 25.5* 23.8* -- 22.2* PLT 145* 132* -- 131* NA -- 149* -- 148* K -- 4.8 -- 4.0 CHLOR -- 116* -- 112* CO2 -- 21* -- 25 BUN -- 42* -- 46* CREAT -- 1.17 -- 1.07 GLUC -- 133* -- 129* IC -- -- 1.13 -- CA -- 8.0* -- 8.0* MG 1.9 1.9 -- 2.1 P 3.6 3.9 -- 3.4 Liver Function, Amylase, AND Lipase Recent Labs 04/26/18 1024 LACT 1.0 Cardiac Enzymes SIGNATURE: Alec Cheung MD PATIENT NAME: Lazaro Villafana DATE: April 28, 2018 TIME: 11:18 AM PAGER/CONTACT #: [phone] GI Staff Note I reviewed the history and physical obtained and documented by Dr. Cheung and I personally participated in the jang components. 52 yo male with cirrhosis / portal hypertension who is s/p Meme Holli tear. Developed right empyema and found to have a contrast leak from the mid-esophagus. Will plan for EGD with esophageal stent placement to provide seal. Rene Solorzano II MD FACP Previous Version Jerilyn Germain, OTR/L 04/28/2018 12:39 PM Signed Occupational Therapy Evaluation SERVICE DATE: 04/28/2018 SERVICE TIME: 0830 to 0908 ROOM: [place] [id number] Recommended Discharge Disposition: Subacute/SNF Justification For Post Acute Needs: Anticipate that patient will require daily (5x/wk) skilled therapy in a post-acute facility setting at the time of acute hospital discharge;Willing to participate;Functional status improvement unknown Anticipated Discharge Needs: Undetermined OT Recommendations to Nursing: Encourage patient participation with in-bed ADL?s;Utilize bed in Chair Position OT 6 Clicks Score: 14 Precautions/Activity Restrictions: Lines/Tubes/Drains;Fall Risk Precaution/Activity Restriction Comments: R chest tube ASSESSMENT: Patient presents with impaired Strength/Tone, Edema, Cognitive/Perceptual, Balance, Coordination, Functional Mobility and Activity Tolerance and ADLs, impacting the ability to function without assistance from caregivers. Patient requires Mod assist with all ADLs including Minimal: Verbal for safety. Pt also requires monitoring of vital signs due to fluctuations with activity and instructions/ education regarding safe activity dosing. Pt wishes to return home but needs exceed resources available at this time. Pt requires skilled therapy to address current functional limitations, identify coping skills to progress through current impairments as well as to increase independence with ADLs within safe limits. Fatigued easily during functional activities requiring multiple rest breaks. Recommending SNF to maximize independence in ADLs and functional mobility. Patient Disposition at Start of Session: Supine in Bed Patient Disposition at End of Session: Supine in Bed Tolerated Full Session Occupational Therapy Problem List: Cognitive Deficit;Safety Deficits;Impaired Self Care;Decreased Activity Tolerance;Functional Mobility Impairment;Balance Impaired;Impaired Fine Motor Skills Patient /Caregiver Goals: Go Home Goals for Plan of Care: Grooming with: Modified Independent Upper Body Bathing with: Modified Independent Upper Body Dressing with: Modified Independent Lower Body Bathing with: Minimal Assistance Lower Body Dressing with: Minimal Assistance Chair Transfer with: Minimal Assistance Toilet Transfer with: Minimal Assistance Tolerate (minutes of functional activity): 30 Functional Activity with: Minimal Assistance Demonstrate Positive Coping Strategies with: Modified Independent Demonstrate Competence With Education with: Modified Independent Progress Toward Goals: Progressing as expected Rehab Potential: Good PLAN: Treatment Frequency (times per week): 3 Current admission Treatment Interventions: Education;Self Care / Home Management;Energy Conservation Training;Cognitive Training Plan of Care developed with: Patient TREATMENT INTERVENTIONS: Therapy Diagnosis: Decreased activities of daily living (ADL) Interventions Provided: Evaluation;Self Assisted Management (49997);Cognitive Training (82619 or G0515) $ Evaluation-Moderate (58923) Billed Units: 1 unit Self Assisted Management (49333) Treatment Minutes: 15 1 unit Skilled Intervention(s): Education provided for OT roles and services within hospital setting including POC and D/C planning. Provided cuing for hand/oral hygiene with increased assist provided for completion of simple oral care. Task breakdown provided to increase independence with ADL tasks with rest breaks and increased time provided for task completion. Education provided for importance of promoting independence to tolerance within hospital setting with ADL tasks. Increased assist provided for simple grooming tasks while sitting in bed in chair position. Education provided for importance of sitting upright for sitting and activity tolerance. Pt verbalized understanding. Cognitive Training (G0515) Treatment Minutes (2018 Only): 8 $ Cognitive Training (G0515) Billed Units (2018 Only): 1 unit Skilled Intervention(s):Patient was educated on problem solving and sequencing tasks with decreased extraneous environmental stimuli to improve level of alertness and attention, for optimal participation in session. Provided cognitive leisure activities to complete outside therapy session with education provided on importance of cognitive stimulation within ICU setting. Instruction provided for completion of simple cognitive acuity activities to increase independence with tasks. Administered Mini Cog Assessment again to reassess cognitive status, pt scored 2/5 ( score <4 may require further cognitive evaluation); Short term memory recall-pt able to identify 2/3 words, required multiple cues. Clock Drawing- pt unable to draw with correct number sequencing, number placement, clock contour, and correct hand placement. Education on reasonfor assessment, and results of assessment. Total Timed Code Treatment Minutes: 23 Total Treatment Time (minutes): 38 FUNCTIONAL G CODE: OT 6 Clicks Score: 14 (04/28/18 5730) Self Care Current Status (G8987): CK (04/28/18829) Self Care Goal Status (G8988): CK (04/28/18829) Based on clinical assessment and the score on the 6 Clicks Functional Assessment Tool, the G code and corresponding severity modifiers are documented above. SUBJECTIVE: Current Hospital Course: Chart reviewed; 52 year old man with history of T2DM, HTN, COPD, CKD, alcohol/tobacco abuse, liver cirrhosis with esophageal varices who presented to [facility] after developing a partial thickness esophageal perforation. Initially required intubation, has now been extubated. On broad-spectrum antibiotics with right sided chest tube in place. Intermittent low-grade fevers. Occasionally has agitation delirium. Reason for Occupational Therapy Consult: Critical Care Therapy Relevant Past Medical History: CKD. DM. COPD. ETOH. Cirrhosis. HTN. 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 Entry To Home: Stairs Number Of Stairs Into Home: 3 Number Of Stairs To Bed/Bath: 0 Equipment Owned: Cane;Wheeled Walker Prior Functional Level: Within Functional Limits OBJECTIVE: Cognition/Communication Deficits Orientation Deficits: Not oriented to Time Responsiveness: Alert;Awake Follows Commands: 2-step Commands Attention Deficits: Distractible Executive Function Deficits: Safety Awareness;Insight to Deficits;Judgement Judgement Deficit: Minimal impairment Insight to Deficits: Minimal impairment Safety Awareness Deficit: Minimal impairment Cognitive Clinical Tests and Screens: Mini Cog Clock Draw Test: 0-Abnormal Word Recall: 2-recalled words Mini Cog Score: 2 CURRENT FUNCTIONAL STATUS: Current Activities of Daily Living Assist Level Feeding Stand By Assistance Grooming Minimal Assistance Bathing Upper Body Minimal Assistance Bathing Lower Body Maximal Assistance Dressing Upper Body Minimal Assistance Dressing Lower Body Maximal Assistance Toileting Total Assistance Functional Mobility Assist Level Rolling Moderate Assistance *further mobility deferred at this date for safety Please see discipline specific clinical documentation flowsheet for complete details for this therapy evaluation/treatment. SIGNATURE: SATHISH Lam/L PATIENT NAME: Lazaro Villafana DATE: April 28, 2018 TIME: 12:26 [address] 04/28/2018 1:35 PM Signed Radiology Service Progress Note PATIENT NAME: Lazaro Villafana DATE OF SERVICE: April 28, 2018 TIME: 1:35 PM PATIENT IDENTITY VERIFICATION COMPLETED USING TWO (2) METHODS: Patient confirmed name verbally and ID band matches.. PATIENT GENDER DATA: Male PATIENT RELEVANT IMPLANT DATA REVIEWED: Yes RADIOLOGY DEPARTMENT: CT; Exam(s) Completed: Chest PERIPHERAL IV DATA: Not applicable SIGNED BY: ANDRESSA Amezquita April 28, 2018 1:[address] [facility] 04/28/2018 4:07 PM Signed NUTRITION SUPPORT TEAM REASSESSMENT SERVICE DATE: 04/28/2018 SERVICE TIME: 1001 RECOMMENDED MALNUTRITION DIAGNOSIS: NO MALNUTRITION IDENTIFIED NUTRITION CARE PLAN: Intervention: 1. ?Continue TPN with increased volume per SICU ?- PN to provide 120gms 15% AA, 1170 dextrose calories, 2000ml?at 83ml/hr ?- orders pended with reduced KPhos, incr NaPhos, incr MgSO4, MVI, MTE, 70u insulin (1:5 ratio), 100mg thiamine 2. ?250ml IVPB lipids 20% fat emulsion MWF started 04/27 ? Monitor and Evaluation: Goal: Meet >75% of estimated needs Monitor fluid/electrolyte balance Monitor labs, I/Os, vital signs, weight ? Discharge Nutrition Recommendations:? To be determined ? 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 Patient initially presented with hematemesis and melena with accompanying dizziness and shortness of breath. Transferred to [facility] S[facility] on 04/14 for further management. s/p EGD 04/15?which showed a deep esophageal tear. ?Plan for a minimum of NPO x 2 weeks. ?04/16 Right chest tube placed for effusion. Esophagram (04/27/18): Persistent right mid-esophageal perforation; GI c/s and plan for esophageal stent placement tomorrow Interval History: TPN continues Pt is febrile with Tmax: 38.2 Resp: nasal cannula I/O's: Intake/Output Summary (Last 24 hours) at 04/28/18 1557 Last data filed at 04/28/18 1400 Gross per 24 hour Intake 3777.3 ml Output 2895 ml Net 882.3 ml overall +[id number] Abdomen: not assessed Last BM: today Enteral access: ?n/a; plan for EGD guided post pyloric feeding tube placement; pt pulled SBFT Parenteral access: ?left IJ TLC placed 04/27 Labs: Na improved, Cl trending down, Mg suboptimal Blood Gases: n/a Blood sugars: 100, 172, 120 Cultures: blood cx x 2 no growth x 1 day Imaging: esophogram 04/27 IMPRESSION: PERSISTENT RIGHT MIDESOPHAGEAL PERFORATION DESCRIBED, CORRELATING WITH PRIOR. Current Diet Order DIET NPO Lines and Drains: Central Line Triple Lumen 04/27/18 Non-tunneled Left Neck (Active) Peripheral 04/14/18 2344 Left Antecubital 18 Gauge (Active) Chest Tube 04/16/18 2100 Right 28 Fr (Active) Nutritional Intake: Intake History BI DATA ARCHITECT: Unable to determine Current intake: 04/17: ?Average 5 day intakes meeting <50% of estimated energy need.s started on PN 04/17 due to esophageal tear, plan for NPO x 2 weeks 04/18: currently goal kcals, PN 940 kcals, 110 g pro + propofol 765 kcals/day 04/20: ?TPN wirh orders 04/17 - 04/19 to provide 110gms protein and 940 claories + additional calories from propofol (04/19 provided 626 calories) 04/21 - 04/22: ?PN with orders 04/20 - 04/21?to provide 100gms protein and 1000 calories + additional calories from propofol 04/25: ?PN with orders 04/22 - 04/24 to provide 110gms protein and 1040 calories 04/26 - 04/27: ?PN with orders 04/25 - 04/26 to provide 120gms protein and 1600 calories 04/28: PN with orders 04/27 to provide 120 gms protein and 1650 calories 250ml IVPB lipids 20% fat emulsion MWF started 04/27 GI symptoms: none Nutrition Abdominal Exam: and not assessed ANTHROPOMETRICS Height: 177.8 cm (5' 10) Admission Weight: 106.1 kg (233 lb 14.5 oz) Current Weight: 105.2 kg (231 lb 14.8 oz) Body mass index is 33.28 kg/m?. Usual body weight ?Unable to determine? No weight history available. Last Wt 04/28/18 : 105.2 kg (231 lb 14.8 oz) 04/14/18 : 97 kg (213 lb 13.5 oz) Estimated nutrition goals: [place] body weight: 75.4 kg Dosing weight: 106?kg (04/14; BMI 33.5kg/m2)?? Calorie needs 0730-1111?kilocalories determined by = 15-20?kcals/kg Dosing?weight? Protein needs: 90 - 121?grams determined by 1.2 -1.6g/kg ideal?weight?- due to [id number]} NUTRITION FOCUSED PHYSICAL EXAM: Subcutaneous Fat Loss Orbital No fat loss Triceps No fat loss Mid-axillary at the iliac crest Unable to determine at this time Muscle Loss Locations: Temporalis No muscle loss Pectoralis No muscle loss Deltoids Mild Interosseous Mild Latissimus dorsi, trapezius Unable to determine at this time Quadriceps Unable to determine at this time Gastrocnemius Unable to determine at this time Potential micronutrient deficiency revealed in: No deficiency identified Edema: Yes Lower extremities Moderate 2+ Ascites: No Assessment of Functional Status: Functional capacity is unrelated to nutrition status Temperature Max in 24 hours: Temp (24hrs), Av.7 ?C (99.9 ?F), Min:36.8 ?C (98.2 ?F), Max:38.2 ?C (100.8 ?F) BP 139/74 Pulse 95 Temp 36.8 ?C (98.2 ?F) (Oral) Resp 27 Ht 177.8 cm (5' 10) Wt 105.2 kg (231 lb 14.8 oz) SpO2 98% BMI 33.28 kg/m? Recent Labs 04/28/18 1236 04/28/18 0106 GLUC 123* -- BUN 38* -- CREAT 1.21 -- NA 144 -- K 4.9 -- CHLOR 113* -- CO2 23 -- P -- 3.6 HB -- 7.8* HCT -- 25.5* WBC -- 7.63 MG -- 1.9 Vitamin and Mineral Labs in the past year:No results for input(s): CHROMIUM, COPPER, MANGANESE, SELENIUM, VITAMINA, VITB1, VITB2, VITB6, B12, METHYLMAL, VITD25, VITAMINE, VITAK, ZINC, TIBC, FE, JOHANNY in the last 8784 hours. Potential Signs of Inflammation: hypoalbuminemia, hyperthermia and imaging studies MNT Billing Type: Re-assess/15 min 3 units SIGNATURE: Sari Weston RD [facility] PATIENT NAME: Lazaro Villafana DATE: April 28, 2018 TIME: 3:53 PM PAGER: [phone] Kurtis Benton RN, RN 04/29/2018 1:43 AM Signed Nursing Progress Note Patient Name: Lazaro Villafana Patient Location: [place] [address] Daily Note: after getting patient up to the chair about 2014 he developed a significant amount of epistaxis out of left nostril, I packed the nostril with gauze and he saturated the packing 4 times. I reported this to our fellow and Dr. Mercado, bleeding stopped around 2200 and now has began @ 0130 again after getting up to side of bed to urinate, I packed the left nostril again and will report to staff. Patient is stable in bed resting currently. This note was completed by: BLAYNE Dobbs MD 04/29/2018 3:32 AM Signed OTOLARYNGOLOGY EPISTAXIS CONSULT HANDP Patient Name: Lazaro Villafana CHIEF COMPLAINT: Epistaxis HPI: Lazaro Villafana is a 52 year old male with a history of ETOH cirrhosis c/b portal HTN and EV who presented with significant GI bleed found to have a partial thickness esophageal tear. He endorses a long history of intermittent nosebleeds on the left. His nurse reports he has been bleeding since yesterday despite holding pressure and makeshift packings. The bleeding has always been from the left. Not on any AC PAST MEDICAL HISTORY: PAST MEDICAL HISTORY Diagnosis Date - Cirrhosis (HCC) - COPD (chronic obstructive pulmonary disease) (HCC) - Diabetes (HCC) - ETOH abuse - Hypertension PAST SURGICAL HISTORY: No past surgical history on file. FAMILY HISTORY: No family history on file. SOCIAL HISTORY: Social History Substance Use Topics - Smoking status: Current Every Day Smoker - Smokeless tobacco: Not on file - Alcohol use Yes MEDICATIONS: CURRENT INPATIENT MEDICATIONS: amLODIPine (NORVASC) 10 mg tablet Take 10 mg by mouth once daily. metFORMIN (GLUCOPHAGE) 500 mg tablet Take 500 mg by mouth twice daily. losartan (COZAAR) 50 mg tablet Take 50 mg by mouth once daily. lactulose (DUPHALAC, CONSTULOSE) 10 gram/15 mL solution glyBURIDE (DIABETA) 5 mg tablet Take 5 mg by mouth twice daily. hydrOXYzine pamoate (VISTARIL) 50 mg capsule Take 50 mg by mouth twice daily as needed. NORepinephrine (LEVOPHED) 16 mg in D5W 250 mL Inject 0.6-30 mcg/min intravenously continuous. metroNIDAZOLE (FLAGYL) 500 mg/100 mL Inject 100 mL intravenously every 8 hours. aztreonam (AZACTAM) 1 g in D5W 100 mL Inject 100 mL intravenously every 8 hours. propofol infusion (DIPRIVAN) 10 mg/mL injection Inject 0.485- 5.82 mg/min intravenously continuous. pantoprazole (PROTONIX) 40 mg injection Inject 10 mL intravenously twice daily. octreotide 500 mcg in D5W 100 mL Inject 50 mcg/hr intravenously continuous. ALLERGIES: ALLERGIES Allergen Reactions - Ciprofloxacin Unknown - Penicillin Unknown Tolerating cefepime COMPLETE REVIEW OF SYSTEMS: Unable to obtain due to patient's critical illness PHYSICAL EXAM: Patient Vitals for the past 24 hrs: BP Temp Temp src Pulse Resp SpO2 Weight 04/29/18 0100 148/72 - - 120 21 93 % - 04/29/18 0005 - 37.2 ?C (99 ?F) Oral - - - - 04/29/18 0000 142/77 - - 90 24 94 % - 04/28/18 2300 140/72 - - 88 22 95 % - 04/28/18 2200 136/84 - - 106 24 96 % - 04/28/18 2100 144/89 - - 106 27 97 % - 04/28/18 2000 158/85 37.2 ?C (99 ?F) Oral 92 24 97 % - 04/28/18 1900 145/72 - - 85 27 99 % - 04/28/18 1800 128/72 - - 86 26 97 % - 04/28/18 1700 141/73 - - 97 26 97 % - 04/28/18 1600 144/76 37 ?C (98.6 ?F) Oral 97 27 93 % - 04/28/18 1500 139/74 - - 95 27 98 % - 04/28/18 1400 148/78 - - 92 27 97 % - 04/28/18 1300 172/83 - - 99 30 96 % - 04/28/18 1200 130/69 - - 81 26 97 % - 04/28/18 1100 131/67 - - 106 28 96 % - 04/28/18 1000 138/80 - - 92 28 95 % - 04/28/18 0900 136/84 - - 92 26 96 % - 04/28/18 0800 145/68 36.8 ?C (98.2 ?F) Oral 87 27 95 % - 04/28/18 0700 141/63 - - 90 23 94 % - 04/28/18 0600 141/65 - - 83 25 97 % 105.2 kg (231 lb 14.8 oz) 04/28/18 0500 145/65 - - 91 16 95 % - 04/28/18 0400 140/63 (!) 38.2 ?C (100.8 ?F) Oral 94 19 95 % - GENERAL APPEARANCE: well appearing NOSE: Airway: Widely patent with good air movement External: No scars, lesions, or masses. Atraumatic Septum: midline Turbinates: normal NASAL ENDOSCOPY: After topical decongestion and anesthesia of the left nasal cavity, the nasopharyngoscope was inserted. Active bleeding is seen from the left anterior septum. No other bleeding was noted. The left side of the nasal cavity was packed with Surgicel fibrillar. No further bleeding was noted intranasally or in the oropharynx. The scope was quickly passed into the left, and no bleeding was norted ORAL CAVITY: No evidence of active bleeding. No clot in the posterior oropharynx DATA: Diagnostic tests reviewed for today's visit: N/A ASSESSMENT AND PLAN: Epistaxis - now resolved PLAN: - Nasal packing with Surgicel fibrillar. - Please do not remove nasal packing, surgicel fibrillar will dissolve on its own in approx 5 days - Antibiotics - Recommend anti-Staph coverage for 7 days Typically we recommend Augmentin 875mg BID, however other antibiotics may be used as long as there is staph coverage - Humidified O2 via face tent if appropriate (no nasal canula if possible) - Begin [facility] nasal cream BID and prn (ordered) - Order Afrin at bedside. If patient re-bleeds, spray Afrin in both nares liberally, and hold pressure firmly over the soft portion of the nose without continuously for 20 minutes. - Begin [place] 6 times a day (scheduled) (ordered) - Please notify ENT with further bleeding or questions - Follow up in ENT clinic if bleeding recurs as an outpatient, call [phone] - Discussed epistaxis prevention and acute treatment Open mouth sneezing only, avoid nose blowing and picking to prevent further bleeding Patient Instructions Follow these Steps to Stop a Nosebleed. ? Stay calm ? Sit down and lean your body and your head slightly forward. This will keep the blood from running down your throat, which can cause nausea, vomiting, choking, and diarrhea. (Do NOT lay flat or put your head between your legs.) ? Breathe through your mouth ? Use a tub/bowl or damp washcloth to catch the blood. Use your thumb and index finger to pinch together the soft part of your nose. Make sure to pinch together the soft part of the nose. Squeezing at or above the bony part of the nose will not put pressure where it can help stop bleeding. ? Keep pinching your nose without letting go for at least 5 minutes (timed by clock). Do not ?peek? to see if the bleeding has stopped. Every time you stop to ?peek,?-- and the bleeding has not stopped -- you have to ?restart the clock? and pinch your nose for another 5 minutes!! If your nostril is still bleeding, continue squeezing your nose for another 10 minutes. ? You can spray an fupf-ryy-dolunkz decongestant spray, such as oxymetazoline (Afrin?, Eduardo-Synephrine?) into the bleeding side of the nose and then apply pressure to the nose as described above. Do not use Afrin? for more than 5 days. Go to the emergency room or call 911 if you cannot stop the bleeding after more than 20 minutes of applying direct pressure. SIGNATURE: Annalee Garcia MD PATIENT NAME: Lazaro Villafana DATE: April 29, 2018 TIME: 3:28 AM PAGER/CONTACT #: [phone] SHELBY KUMARI MD, 04/29/2018 9:10 AM Signed Acute Care Surgery PROGRESS NOTE Lazaro Villafana [id number] 04/29/2018 ASSESSMENT/PLAN: Lazaro Villafana is a 52 year old male with PMHx type II DM, poorly controlled HTN, CKD, COPD, tobacco smoker 2-3 PPD, alcohol use disorder with recent diagnosis of cirrhosis w/ esophageal varices who presents on transfer from OSH with hematemesis s/p EGD at OSH c/b esophageal laceration that appears to be contained; MELD >?20, currently with R-sided chest tube for hydropneumothorax, NPO and on TPN. Intermittent fevers. EGD done 04/26 with finding of partial mucosal tear in mid esophagus. Esophagram (04/27) showing persistent leak in esophagus. - Continue strict NPO, TPN - Remains intermittently febrile - GI to do EGD w/ stent placement today - Hgb stable - Continue to monitor chest tube output - Continue supportive/SICU care Per discussion between Dr Jerry and Dr Soto the patient's care will be transition to Thoracic Surgery care. Thoracic Surgery will be primary team General Surgery will sign off now - we will be available as needed. Please call with question Plan to be discussed with Attending, Dr. Yony Camara MD General Surgery PGY-5 Pager: [phone] SUBJECTIVE 24 hour events: No acute events Pain is well controlled on current regimen. Mental status remains stable DIET NPO OBJECTIVE Intake/Output Summary (Last 24 hours) at 04/29/18 0518 Last data filed at 04/29/18 0500 Gross per 24 hour Intake 3571.3 ml Output 2550 ml Net 1021.3 ml PHYSICAL EXAM: BP 133/64 Pulse 100 Temp (Src) 99 (Oral) Resp 16 Ht 5' 10 (1.78m) Wt 231 lb 14.8 oz (105.2kg) SpO2 94% BMI 33.28 kg/(m2). Gen: Awake, alert Lungs: Breathing comfortably Abdomen:soft, not tender Ext: No edema, SCDs in place DATA: Date 04/28/18 07 - 04/29/18 0659 04/29/18699 - 04/30/18 0659 Shift 4197-7098 4530-8913 3062-7192 24 Hour Total 6015-3202 0490-0007 4184-7378 24 Hour Total I N T A K E IV 949 949 D5W 721 721 Vancomycin IV 200 200 Dexmedetomidine IV 28 28 TPN/PPN 874 874 TPN 874 874 Shift Total 1823 1823 O U T P U T Urine 1035 333 184 1465 Void (ml) 325 487 904 1054 Output ([REMOVED] Indwelling Urinary Catheter 04/25/18 1916 Mcclain 16 Fr 04/28/18 1140) 710 710 Chest Tube 0 0 Chest Tube Output (Chest Tube 04/16/18 2100 Right 28 Fr) 0 0 # of BMs Stool Incontinence 1 x 1 x 2 x Number of BMs 1 x 1 x 2 x Shift Total 1035 459 516 0872 Weight (kg) 105.2 105.2 105.2 105.2 105.2 105.2 105.2 105.2 Diagnostic tests reviewed for today's visit: Most recent labs and imaging results. CBC, Coags, BMP, Mg, Phos Recent Labs 04/29/18 0200 04/28/18 1236 04/28/18 0106 04/27/18 0237 04/26/18 1024 WBC -- -- 7.63 6.78 -- HB -- -- 7.8* 7.3* -- HCT -- -- 25.5* 23.8* -- PLT -- -- 145* 132* -- NA 142 144 -- 149* -- K 4.6 4.9 -- 4.8 -- CHLOR 111* 113* -- 116* -- CO2 21* 23 -- 21* -- BUN 39* 38* -- 42* -- CREAT 1.16 1.21 -- 1.17 -- GLUC 173* 123* -- 133* -- IC -- -- -- -- 1.13 CA 7.6* 8.0* -- 8.0* -- MG 2.0 -- 1.9 1.9 -- P 3.3 -- 3.6 3.9 -- Previous Version Muriel Flanagan MD 04/29/2018 10:09 PM Signed INFECTIOUS DISEASES PROGRESS NOTE Patient Name: Lazaro Villafana Account #: Data Unavailable Admission Date: 04/14/2018 Date of Evaluation: 04/29/2018 Time of Evaluation: 10:20 AM INTERVAL HPI: Afebrile x 24 hours. OOB with physical therapy. Plans for EGD with stent placement noted today. Metronidazole 04/15 Fluconazole 04/15 Vancomycin 04/20 Aztreonam 04/22 MEDICATIONS: Current hospital medications: sodium chloride 0.65 % 2 [place] (AYR, OCEAN) 2 [place] EACH NOSTRIL 5X/DAY nasal ointment ([facility]) TOPICAL BID Parenteral Nutrition - Adult INTRAVENOUS ONCE TPN (2200 START) dextrose 5% in water iv infusion 5-30 mL/hr INTRAVENOUS CONTINUOUS fat emulsion infusion 20% (INTRALIPID) 250 mL INTRAVENOUS MO-WE-FR (10PM) metoprolol 10 mg injection (LOPRESSOR) 10 mg INTRAVENOUS q 6 HR OLANZapine orally disintegrating 10 mg tab(s) (ZyPREXA ZYDIS) 10 mg ORAL AT BEDTIME lidocaine 5 % 1 Patch (LIDODERM) 1 Patch TRANSDERMAL DAILY lidocaine patch - REMOVE OTHER AT BEDTIME lidocaine - VERIFY PATCH OTHER q 8 H labetalol 10 mg injection syringe (NORMODYNE) 10 mg INTRAVENOUS q 2 H PRN insulin glargine 20 Units pen (long acting) (LANTUS SOLOSTAR, BASAGLAR KWIKPEN) 20 Units SUBCUTANEOUS AT BEDTIME vancomycin iv piggyback 1 g in D5W 200 mL (VANCOCIN) 1 g INTRAVENOUS q 12 HR aztreonam 2 g in D5W 100 mL MB+ (AZACTAM) 2 g INTRAVENOUS q 6 HR heparin 5,000 Units injection 5,000 Units SUBCUTANEOUS q 12 H fluconazole 400 mg in NaCl (iso-osmotic) 200 mL (DIFLUCAN) 400 mg INTRAVENOUS DAILY vancomycin dosing and monitoring per pharmacy OTHER As Directed insulin regular human injection (short acting) (NovoLIN R,HumuLIN R) SUBCUTANEOUS q 6 H potassium chloride iv piggyback 20 mEq/100 mL 20 mEq INTRAVENOUS PRN potassium chloride 20-80 mEq CUP 20-80 mEq ORAL/FEEDING TUBE PRN magnesium sulfate in water 2 g in sterile water 50 ml 2 g INTRAVENOUS PRN sodium glycerophosphate 15 mmol in D5W 250 mL (GLYCOPHOS) 15 mmol INTRAVENOUS PRN sodium glycerophosphate 30 mmol in D5W 250 mL (GLYCOPHOS) 30 mmol INTRAVENOUS PRN sodium glycerophosphate 45 mmol in D5W 250 mL (GLYCOPHOS) 45 mmol INTRAVENOUS PRN dextrose 40 % 15 g 15 g ORAL PRN glucagon 1 mg injection (GLUCAGEN) 1 mg INTRAMUSCULAR PRN dextrose 50 % 12.5 g injection 12.5 g INTRAVENOUS PRN NaCl 0.9% 3-5 mL 3-5 mL INTRAVENOUS q 12 H fentaNYL 50 mcg/mL 25-50 mcg injection (SUBLIMAZE) 25-50 mcg INTRAVENOUS q 1 H PRN metroNIDAZOLE 500 mg PREMIX piggyback (FLAGYL) 500 mg INTRAVENOUS q 8 H ipratropium-albuterol 3 mL nebulizer solution (DUONEB) 3 mL INHALATION q 4 H PRN pantoprazole 40 mg injection (PROTONIX) 40 mg INTRAVENOUS BID AC (0600/1599) PHYSICAL EXAM: BP 133/64 Pulse 100 Temp 37.2 ?C (99 ?F) (Oral) Resp 16 Ht 177.8 cm (5' 10) Wt 105.2 kg (231 lb 14.8 oz) SpO2 94% BMI 33.28 kg/m? Lines: Nontunnelled triple lumen 04/27 Left neck ?GEN: conversant, no distress SKIN: No lesions noted. EYES: PERRLA NECK: L nontunnelled triple lumen catheter with no overlying erythema, swelling or warmth. LUNGS: clear to auscultation, no wheezes, or crackles. HEART: ?Regular rate/rhythm, normal heart sounds, and no murmurs. ABDOMEN: Soft, epigastric tenderness, hypoactive BS EXTREMITIES: Edema of hands b/l, no LE edema. + right sided chest tube with unchanged, chunky fluid Labs: WBC 7.63, Hgb 7.8, Plt 145, Cr 1.16 +686 cc/24 hours Micro and radiology personally reviewed 04/14/18: Quantiferon gold testing negative for TB 04/14/18: Blood cultures 04/19 no growth 04/14/18: MSSA nasal swab positive 04/17/18: MSSA nasal swab positive 04/17/18: Blood cultures 2/2 no growth 04/20/18: Blood cultures 2/2 no growth 04/20/18: Tracheal aspirate cultures no organisms on gram stain and no growth on culture 04/22/18: Fungitell negative 04/23/18: Sputum cultures normal abby 04/24/18: Staphylococcal nasal swab negative 04/27/18: Blood cultures 2/[address] Chest 04/17/18: IMPRESSION: 1. ?NEW MULTIFOCAL CONSOLIDATIVE/GROUNDGLASS OPACITIES PREDOMINANTLY LEFT UPPER LOBE AND LINGULA, MAY REPRESENT MULTIFOCAL PNEUMONIA/ASPIRATION PNEUMONITIS, HEMORRHAGE OR ASYMMETRIC EDEMA. ?RADIOGRAPHIC FOLLOW-UP IS RECOMMENDED.. 2. ?BILATERAL LOWER LOBE AIRSPACE OPACITIES WITH VOLUME LOSS, RIGHT GREATER THAN LEFT, MOST LIKELY ATELECTASIS WITH POSSIBLE SUPERIMPOSED INFECTIOUS PROCESS. 3. ?LIMITED EVALUATION OF PREVIOUSLY SEEN MID ESOPHAGEAL CONTRAST EXTRAVASATION/TEAR. ?SMALL FOCI OF RIGHT-SIDED PNEUMOMEDIASTINUM, NOT SIGNIFICANTLY CHANGED. ?SMALL FOCI OF PNEUMOMEDIASTINUM HAVE DEVELOPED SUPERIORLY. ?THESE COULD BE FROM RECENT INTERVENTION. 4. SMALL BILATERAL PLEURAL COLLECTIONS HAVE SLIGHTLY INCREASED COMPARED TO PRIOR EXAM. ?THE AIR COMPONENTS OF THE RIGHT PLEURAL COLLECTION ARE NEW SINCE PREVIOUS EXAM, LIKELY RELATED TO ?INTERVAL PLACEMENT OF RIGHT APICAL CHEST TUBE. US upper extremities 04/20/18: IMPRESSION ? RIGHT SIDE - DEEP VEINS Technically limited study. Negative for acute deep vein thrombosis in vessels visualized. Unable to visualize the internal jugular vein due to IV lines and bandages. RIGHT SIDE - SUPERFICIAL VEINS Acute superficial thrombophlebitis in the cephalic vein antecubital fossa to wrist. Acute superficial thrombophlebitis in the basilic vein mid upper arm to wrist. Acute superficial thrombophlebitis in the median cubital vein at the antecubital fossa. ? LEFT SIDE - DEEP VEINS Spontaneous and respirophasic flow noted in the subclavian vein at proximal. CT Chest 04/21/18: IMPRESSION: 1. ?Unchanged right hydropneumothorax with right thoracostomy tube and associated right lower lobe atelectasis. ?Superimposed infection/aspiration cannot be excluded. 2. ?Groundglass opacities in the left upper lobe and lingula, likely infectious/inflammatory. ?Left apical consolidation has decreased since the prior exam. 3. ?Circumferential wall thickening of the esophagus. ?Known esophageal tear is not visualized on this examination. 4. ?Mediastinal lymphadenopathy, likely reactive. CT Chest 04/24/18: IMPRESSION: 1. Small to medium-sized right loculated hydropneumothorax with associated right pleural thickening and adjacent right lower lobe atelectasis/consolidation (most likely due to infection), without significant change. Right thoracostomy tube stable in position. 2. Scattered ground-glass opacities within the upper lobes, new within the right upper lobe and stable to slightly decreased in the left upper lobe. These are most likely infectious/inflammatory in origin. Additional small ground-glass and small consolidative opacities within the inferior left lower lobe with adjacent centrilobular nodular opacities are most likely infectious and, in this location, may be related to aspiration. 3. Interval resolution of the left pleural effusion with overall decreased atelectasis in the left lower lobe. 4. Thoracic lymphadenopathy, likely reactive. 5. Known esophageal perforation; small locules of gas extending from the level of the distal esophagus into the right pleural space (images 90-93) may correspond to the site of perforation. ? EGD 04/27/18: Impression: ? - Mucosal tear in the middle third of the esophagus ? healing well. ? - Portal hypertensive gastropathy. ? - Normal examined duodenum. ? - Feeding tube placement was successfully performed. ? Please confirm placement with KUB. ? - No specimens collected. Esophagram 04/27/18: PERSISTENT RIGHT MIDESOPHAGEAL PERFORATION DESCRIBED, CORRELATING WITH PRIOR. CT Chest 04/28/18: IMPRESSION: 1. ?Small to medium-sized right sided hydropneumothorax is stable in size since the prior chest CT dated 04/24/2018 with right thoracostomy tube in stable position. ?Adjacent dependent airspace opacity primarily in the right lower lobe has mildly improved in the interval and most likely represents either atelectasis or pneumonia/aspiration. 2. ?Previously seen bilateral airspace opacities, some of which were ground-glass or centrilobular in distribution have overall improved although have not resolved and may be due to either edema and/or infectious/inflammatory in etiology such as due to aspiration. ?No new airspace opacity has developed in the interval. 3. ?Persistent linear tract of gas extending from the right lateral mid to distal aspect of the esophagus which communicates with the right pleural space, in keeping with the known fistula as seen on the recent esophagram study. ?High attenuation material in the dependent right pleural space is nonspecific and may represent either contrast material from an esophagram study versus blood products. ?Correlate with the chest tube output for the presence of blood. 4. ?Stable mediastinal and right hilar lymphadenopathy, probably reactive. 5. ?Mild ascites in the upper abdomen, unchanged. IMPRESSION / PLAN 52 yo M with a h/o cirrhosis, EtoH related, CKD, COPD and reported + PPD in the past. Currently no clinical or imaging evidence of active pulmonary TB. Presenting with hemorrhagic shock secondary to hematemesis/esophageal tear c/b pneumomediastinum; no surgical intervention planned at this time. EGD 04/26/18 with reported improvement in esophageal tear (31-38cm). Plans for PICC for TPN and GI stent placement via EGD noted. Plan: - continue vancomycin (goal trough 15-25), aztreonam, metronidazole, fluconazole as ordered for now, will likely continue antibiotics until blood cultures finalize - will follow blood cultures 04/27/17, would hold off on PICC placement until confirmed no growth for 48 hours - order HIV Ag/Ab and Hepatitis C Antibody screening Will discuss with attending, Perla Delgado PGY4 ID STAFF I evaluated the patient and personally participated in the jang components. I agree with the fellow's findings and plan as documented and have discussed the case and management of the patient's care with the fellow. I have reviewed and verified pertinent data. Intubated following EGD On pressor No new fevers Maintain present antibiotics for now Dr. Caro Nielsen will be available this weekend. Please call with questions. Dr. Marguerite Li will resume service on Wednesday. Muriel Flanagan MD Pager: [phone] April 29, 2018 Previous Version Alec Cheung MD 04/29/2018 6:58 AM Signed Gastroenterology Consult Service Progress Note Date of Service: April 29, 2018 Patient: Lazaro Villafana Medical Record: [id number] Reason for Initial Consult: Esophageal tear Requesting Service: SICU Impression: Lazaro Villafana is a 52 year old gentleman with history notable for presumed EtOH related cirrhosis with risk factors for BOONE with disease course c/b portal HTN (EV) who presented with complaints?of several day history of nausea, vomiting, melena, and hematemesis prompting tony tube placement at that time (unsure if gastric vs. Gastric and esophageal balloon inflated) found to have partial thickness esophageal tear and large EV. ? His hospital course c/b mediastinitis with fevers an purulent chest tube output on vancomycin/aztreonam/diflucan, respiratory failure requiring intubation now extubated (04/22) and stable from pulmonary standpoint, and on TPN. ? EGD (04/14/18): ?4:20 PM - GE junction at 45 cm - Grade II Esophageal varices, 2 columns not actively bleeding - Laceration with adherent clot from 31 - 38 cm from incisors. ? ? EGD (04/15/18): - Deep mucosal tear 31-38 cm from incisors - Large varices in lower third of esophagus - Hematin in stomach - Scope not advanced to duodenum to avoid additional pressure on esophagus ? EGD (04/26/18): - Mucosal tear in middle third of esophagus from 31 to 38 cm healing well - PHG ? XR Esophagram (04/27/18): Persistent right mid-esophageal perforation ? GI re-consulted for possible esophageal stent placement. ? Plan:? -Will plan for esophageal stent placement today at 9 AM in Q3 under fluoroscopy - Ensure active type and screen, Hgb >7, Plt > 50K, and INR <1.7 in anticipation of procedure - Continue broad spectrum antibiotics - Strict NPO Alec Cheung MD Gastroenterology AND Hepatology Fellow Discussed with staff. SIGNATURE: Alec Cheung MD PATIENT NAME: Lazaro Villafana DATE: April 29, 2018 TIME: 6:57 AM PAGER/CONTACT #: [phone] Francois Gann MD,PhD 04/29/2018 8:08 AM Signed [facility]GERY CONSULT PROGRESS NOTE Lazaro Villafana [id number] PRIMARY SERVICE: HOSPITAL DAY: # 15 INTERVAL HISTORY Epistaxis overnight. Managed by ENT. No other acute events. PHYSICAL EXAM BP 125/76 Pulse 98 Temp 37.3 ?C (99.1 ?F) (Oral) Resp 29 Ht 177.8 cm (5' 10) Wt 105.2 kg (231 lb 14.8 oz) SpO2 94% BMI 33.28 kg/m? Intake/Output Summary (Last 24 hours) at 04/29/18 0806 Last data filed at 04/29/18 0700 Gross per 24 hour Intake 3333 ml Output 2465 ml Net 868 ml Constitutional: No acute distress HEENT: EOM's intact Resp: Respiratory effort: normal, CT SS, no air leak, on suction Cardiovascular: Cardiac: Regular rate AND rhythm Integumentary: Warm Musculoskeletal: No deformities Neurological/Psychiatric: Alert, some mild confusion Additional systems reviewed: No additional systems reviewed ? DATA Recent Labs 04/28/18 0106 04/27/18 0237 WBC 7.63 6.78 HB 7.8* 7.3* HCT 25.5* 23.8* PLT 145* 132* Recent Labs 04/29/18 0200 04/28/18 1236 04/28/18 0106 04/27/18 0237 NA 142 144 -- 149* K 4.6 4.9 -- 4.8 CO2 21* 23 -- 21* BUN 39* 38* -- 42* CREAT 1.16 1.21 -- 1.17 GLUC 173* 123* -- 133* MG 2.0 -- 1.9 1.9 IMAGING I personally reviewed: CXR ASSESSMENT AND PLAN 52 year old male with multiple medical comorbidities now with likely partial thickness esophageal perforation, putatively from S-B tube placement at OSH. It is unlikely that this is the etiology of his massive hemoptysis, reportedly there were multiple varices that, in the background of cirrhosis is the likely etiology of his bleed. While he is requiring high doses of vasopressors, it is unlikely that the source of his shock is purely from his esophageal perforation given his lack of pleural effusion or free flowing contrast. 04/15 EGD showed 5cm esophageal laceration without active bleeding. 04/16 Right chest tube placed for effusion. 04/22 extubated. 04/22 Patient pulled NGT. 04/[address] by 4cm. 04/26 EGD, well healing esophageal tear. 04/27 esophagram shows persistent leak. ?? Plan - no surgical intervention at this point - daily CXR - STRICT NPO - possible stent per GI today - Image guided pigtail placement to drain fissure fluid collection - will continue to follow ? Plan discussed with Dr. Soto. ? Francois Gann MD,PhD Pager [phone] 04/29/2018 8:06 AM Ekaterina Zabala PT 04/29/2018 8:25 AM Signed PHYSICAL THERAPY MISSED VISIT SERVICE DATE: 04/29/2018 SERVICE TIME: 0825 to 0825 ROOM: [place] [id number] Attempted Treatment. Patient not seen. Declined PT before his procedure. Will reattempt as able. SIGNATURE: Ekaterina Zabala PT PATIENT NAME: Lazaro Villafana DATE: April 29, 2018 TIME: 8:[address] 04/29/2018 3:46 PM Signed NUTRITION SUPPORT TEAM PROGRESS NOTE SERVICE DATE: 04/29/2018 SERVICE TIME: 11:17 AM RECOMMENDED DIAGNOSIS: NO MALNUTRITION IDENTIFIED per Registered Dietitian on 04/28 NUTRITION CARE PLAN Intervention: 1. Continue TPN tonight: 2 liters over 24 hours 120 g 15% AA 1170 kcals dextrose Increase sodium phosphate to 25 mmol 70 units RHI in bag 100 mg thiamin 2. ?250ml IVPB lipids 20% fat emulsion MWF started 04/27 Monitor and Evaluation: Goal: Meet >75% of estimated needs Monitor fluid/electrolyte balance Monitor labs, I/Os, vital signs, weight Discharge Nutrition Recommendations: To be determined Per HPI: 52 year old male with a history of type II DM, poorly controlled HTN, CKD, COPD, tobacco smoker 2-3 PPD, alcohol use disorder with recent diagnosis of cirrhosis was transferred from [facility] with an esophageal perforation seen on EGD. Patient initially presented with hematemesis and melena with accompanying dizziness and shortness of breath. Transferred to [facility] on 04/14 for further management. s/p EGD 03/20 8?which showed a deep esophageal tear. ?Plan for a minimum of NPO x 2 weeks. ?04/16 Right chest tube placed for effusion. Esophagram (04/27/18): Persistent right mid-esophageal perforation; GI c/s and plan for esophageal stent placement tomorrow Interval History: Esophageal stent placed today. Intake/Output Summary (Last 24 hours) at 04/29/18 0659 Gross per 24 hour Intake 3333 ml Output 2550 ml Net 783 ml +1292 ml D5W -2400 ml urine -150 ml chest tube 2x BM Tmax: Temp (24hrs), Av.2 ?C (98.9 ?F), Min:37 ?C (98.6 ?F), Max:37.3 ?C (99.1 ?F) Edema: generalized, LE 2+ Enteral access: n/a; plan for EGD guided post pyloric feeding tube placement; pt pulled SBFT Parenteral access: left IJ TLC placed 04/27 Pertinent medications: diflucan, magnesium (2 g), protonix, glycophos (15 mmol), vancomycin Labs reviewed Nutritional Intake: Intake History BI DATA ARCHITECT: Unable to determine Current intake: 04/17: Average 5 day intakes meeting <50% of estimated energy need.s started on PN 04/17 due to esophageal tear, plan for NPO x 2 weeks 04/18: currently goal kcals, PN 940 kcals, 110 g pro + propofol 765 kcals/day 04/20: TPN wirh orders 04/17 - 04/19 to provide 110gms protein and 940 claories + additional calories from propofol (04/19 provided 626 calories) 04/21 - 04/22: PN with orders 04/20 - 04/21 to provide 100gms protein and 1000 calories + additional calories from propofol 04/25: PN with orders 04/22 - 04/24 to provide 110gms protein and 1040 calories 04/26 - 04/27: PN with orders 04/25 - 04/26 to provide 120gms protein and 1600 calories 04/28: PN with orders 04/27 to provide 120 gms protein and 1650 calories 04/29: PN with orders 04/28 to provides 120 g protein and 1650 kcals Current Diet Order DIET NPO Lines and Drains: Central Line Triple Lumen 04/27/18 Non-tunneled Left Neck (Active) Chest Tube 04/16/18 2100 Right 28 Fr (Active) Height: 177.8 cm (5' 10) Admission Weight: 106.1 kg (233 lb 14.5 oz) Current Weight: 105.2 kg (231 lb 14.8 oz) Body mass index is 33.28 kg/m?. Usual body weight Unable to determine No weight history available. Last Wt 04/28/18 : 105.2 kg (231 lb 14.8 oz) 04/14/18 : 97 kg (213 lb 13.5 oz) Estimated nutrition goals: [place] body weight: 75.4 kg Dosing weight: 106 kg (04/14; BMI 33.5kg/m2) Calorie needs 2853-2070 kilocalories determined by = 15-20 kcals/kg Dosing weight Protein needs: 90 - 121 grams determined by 1.2 -1.6g/kg ideal weight - due to CKD Recent Labs 04/29/18 0200 04/28/18 0106 GLUC 173* -- BUN 39* -- CREAT 1.16 -- NA 142 -- K 4.6 -- CHLOR 111* -- CO2 21* -- P 3.3 3.6 HB -- 7.8* HCT -- 25.5* WBC -- 7.63 MG 2.0 1.9 MNT Billing Type: Re-assess/15 min 2 units SIGNATURE: Dalia Preston RD, LD, [facility] PATIENT NAME: Lazaro Villafana DATE: April 29, 2018 TIME: 8:54 AM PAGER: [phone] Rai Kramer, RN, RN 04/29/2018 9:51 AM Signed CARE MANAGEMENT PROGRESS NOTE SERVICE DATE: 04/29/2018 SERVICE TIME: 9:48 AM LOS: 15 days Patient remains in SICU now with nasal packing due to significant epistaxis and needed VM for oxygenation. Continues on TPN and with right chest tube. GI planning for esophageal stent today. PT recommendations remain tbd. Laser Specialist to follow for discharge planning pending POC and medical stability. Needs Prior to Discharge: To Be Determined SIGNATURE: Rai Kramer RN PATIENT NAME: Lazaro Villafana DATE: April 29, 2018 TIME: 9:48 AM PAGER/CONTACT #: [phone] Alec Cheung MD 04/29/2018 1:27 PM Signed EGD 04/29: Esophageal stent successfully placed in Q3. See Epic note for more details Recommendations: - Stent removal in 4 weeks (order placed by id) - XR esophagram to assess for persistent leak post-procedurally - Remainder of care per primary team Alec Cheung MD GI Fellow April 29, 2018 1:22 PM Ted Mackenzie MD, MD 04/29/2018 1:46 PM Signed POST ANESTHESIA EVALUATION NOTE SERVICE DATE: 04/29/2018 SERVICE TIME: 12:42p : 1965 Vitals: 04/29/18 0005 04/29/18 0400 04/29/18 0800 04/29/18 1200 Temp: 37.2 ?C (99 ?F) 37.3 ?C (99.1 ?F) 37.2 ?C (99 ?F) 37.1 ?C (98.8 ?F) 04/29/18 1000 04/29/18 1100 04/29/18 1200 04/29/18 1300 Arterial BP 1: BP: 137/65 106/56 120/67 103/55 04/29/18 1000 04/29/18 1100 04/29/18 1200 04/29/18 1300 Pulse: 87 94 106 101 04/29/18 0800 04/29/18 0900 04/29/18 1000 04/29/18 1300 Resp: 23 23 16 18 04/29/18 1000 04/29/18 1100 04/29/18 1200 04/29/18 1300 SpO2: 95% 100% 91% 94% Validated Vital Signs: HR: 97; BP: 106/58; RR: 16; SpO2%: 96; Temperature: 37.3 POST ANES STATUS: PACU/ICU Patient Condition: Guarded Neurological Status: On intravenous sedation. Pulmonary Status: On invasive mechanical ventilation. 100% FIO2 Airway Control: Intubated on mechanical ventilation. Cardiovascular Status: Stable Pain: Adequately controlled Postoperative Nausea/Vomiting: No significant post operative nausea or vomiting Postoperative Hydration Status: Adequate. Intra-Operative Events: Acute pulmonary insufficiency following non-thoracic surgery See the [facility] record for the event detail Anesthetic Complications: None Recommendation: Continue current plan of care by ICU and CXR now, CT to suction Other Remarks: SIGNATURE: Ted Mackenzie MD PATIENT NAME: Lazaro Villafana DATE: April 29, 2018 TIME: 1:44 PM PAGER/CONTACT #: [phone] Antonina Diaz RN, RN 04/29/2018 2:39 PM Signed Nursing Progress: Topic: RESTRAINT NON-VIOLENT PATIENT NAME: Lazaro Villafana PATIENT LOCATION: [place] [address] The patient demonstrates Attempting to Remove Medical Devices Vital to Medical Stability, Confusion as evidenced by the following behaviors pulling at lines and ett which pose an imminent danger to self or others. The following interventions were attempted but were not effective in protecting the patient's safety: IV/Feeding Bag/Pump Out of Vision, Medications Reviewed, Modify Environment, Modify Equipment, Bed in Low/Locked Position, Call Light Within Reach, Pain/Discomfort Relief Next, a comprehensive assessment was performed and warranted placing the patient in Soft Bilateral Wrists, the least restrictive restraint needed to protect the patient's safety. Ongoing safety assessments and evaluation for earliest removal of restraints will be performed. DATE: April 29, 2018 TIME: 2:39 PM BLAYNE Sánchez, PHARMCIST 04/29/2018 4:21 PM Signed PHARMACY VANCOMYCIN DOSING NOTE Patient Name: Lazaro Villafana Admission Date: 04/14/2018 Date of Consult: 04/29/2018 Time of Consult: 4:17 PM Indication: Pneumonia Goal Range: 10-20 mcg/mL RECOMMENDATIONS/PLAN: Pharmacy consulted for vancomycin dosing for Lazaro Villafana, a 52 year old, male who is being treated with vancomycin for pneumonia. 1. Patient is currently ordered vancomycin 1 g IV q12h. Today is day 8 of therapy. 2. The most recent vancomycin level was 14.4 mcg/mL drawn at 0148 on 04/26/18. This was an approximate 13-hour level on the 5th day of that current regimen. 3. The present dose of vancomycin is the recommended dosage for this patient at this time. Continue therapy as prescribed. 4. The next vancomycin level will be ordered for 5 to 7 days from last level collected, though might consider earlier level if there is a continued need for vasopressors (post-OR today) or as otherwise indicated. (Pharmacy will order) We will follow patient renal function, vancomycin levels and doses with you during the course of therapy. Additional recommendations will appear in follow up notes. If you have any questions, please contact Doris Hammer PharmD at . Age: [age] year old Allergies: ALLERGIES Allergen Reactions - Ciprofloxacin Unknown - Penicillin Unknown Tolerating cefepime Last 3 Encounter Wt Readings: Date: Wt: 04/14/2018 105.2 kg (231 lb 14.8 oz) 04/14/2018 97 kg (213 lb 13.5 oz) Last 1 Encounter Ht Readings: Date: Ht: 04/14/2018 177.8 cm (5' 10) CrCl: > 90 mL/min Temp (24hrs), Av.2 ?C (99 ?F), Min:37.1 ?C (98.8 ?F), Max:37.3 ?C (99.1 ?F) - Current Temp: 37.1 ?C (98.8 ?F) Labs BUN (mg/dL) Date Value 04/29/2018 39 (H) 04/28/2018 38 (H) 04/27/2018 42 (H) Creatinine (mg/dL) Date Value 04/29/2018 1.16 04/28/2018 1.21 04/27/2018 1.17 WBC (k/uL) Date Value 04/28/2018 7.63 04/27/2018 6.78 04/26/2018 7.02 Vancomycin Levels: Vancomycin, result (ug/mL) Date/Time Value 04/26/2018 0148 14.4 04/22/2018 0120 24.3 (H) DORIS HAMMER, PharmD Quiana Valentine, CORPORATE PILOT.FLIGHT ENGINEER MANAGER 04/29/2018 6:44 PM [facility] CV[facility] Admission Note Name: Lazaro Villafana Principal Diagnosis: Esophageal perforation Important/Relevant PMH/PSH: Alcohol use disorder with recent diagnosis of cirrhosis w/ esophageal varices, type II DM, poorly controlled HTN, CKD, COPD, tobacco smoker 2-3 PPD. Hospital Course: HPI: Lazaro Villafana is a 52 year old male with alcohol use disorder with recent diagnosis of cirrhosis w/ esophageal varices who presents on transfer from OSH with hematemesis s/p EGD at OSH c/b esophageal laceration; MELD >?20. R-sided chest tube for hydropneumothorax. Admitted to [facility] SICU 04/14/18. 04/15/18: EGD showed 5cm esophageal laceration without active bleeding. 04/16/18: Right chest tube placed for effusion. 04/22/18: Extubated. 04/26/18: EGD: partial mucosal tear in mid esophagus. 04/27/18: Eesophagram showed persistent leak. 04/29/18: EGD 04/29: Esophageal stent successfully placed in Q3. Acute pulmonary insufficiency following non-thoracic surgery requiring intubation. Respiratory status improved with placement of CT to sxn. See Epic note for more details. Per discussion between Dr Jerry and Dr Soto the patient's care will be transitioned to Thoracic Surgery care, thoracic Surgery being primary team. Transferred to CVICU from SICU. A/P of Major Active Problems (excluding routine care and common problems): CV: SR. Hypotensive requiring vasopressor support on norepinephrine infusion for MAP > 65, wean as tolerated. Resp: Arrived intubated and sedated. Respiratory insufficiency improved with CT to sxn post procedure. Vent wean as able. R-sided chest tube for hydropneumothorax. GI: Strict NPO, TPN. Renal: Cr 1.16. CKD. Avoid hypotension, nephrotoxic agents, and renally dose medications. ID: Hospital course c/b mediastinitis with fevers an purulent chest tube output on vancomycin/aztreonam/diflucan. ID following. Epistaxis: ENT following-->Nasal packing with Surgicel fibrillar. Lines: L IJ triple lumen (04/27/18). To Do or to Watch: Continue strict NPO, TPN Continue to monitor chest tube output Follow blood cultures 04/27/17, per ID would hold off on PICC placement until confirmed no growth for 48 hours Continue supportive care Discharge Planning: Anticipated Discharge Date: Unknown Barriers to Discharge: Unknown Care Management Discharge Needs: Needs Prior to Discharge: To Be Determined Additional Hospital Problems Problem Esophageal Perforation Recent diagnosis of cirrhosis w/ esophageal varices who presents on transfer from OSH with hematemesis s/p EGD at OSH c/b esophageal laceration. It is unlikely that this is the etiology of his massive hemoptysis, reportedly there were multiple varices that, in the background of cirrhosis is the likely etiology of his bleed. While he is requiring high doses of vasopressors, it is unlikely that the source of his shock is purely from his esophageal perforation given his lack of pleural effusion or free flowing contrast. 04/15/18: EGD showed 5cm esophageal laceration without active bleeding. 04/16/18: Right chest tube placed for effusion. 04/22/18: Extubated. 04/26/18: EGD: partial mucosal tear in mid esophagus. 04/27/18: Eesophagram showed persistent leak. 04/29/18: EGD 04/29: Esophageal stent successfully placed in Q3. Acute Respiratory Failure (Hcc) Acute pulmonary insufficiency following non-thoracic surgery requiring intubation. Respiratory status improved with placement of CT to sxn. A/P: Arrived to ICU intubated and sedated. Vent wean as able. Hydropneumothorax A/P: Continue to monitor CT output. Copd (Chronic Obstructive Pulmonary Disease) (Hcc) A/P: On mechanical ventilation. Vent wean as able. Hypotension A/P: Hypotension requiring vasopressor support on norepinephrine infusion to maintain MAP > 65, wean as tolerated. History of Hypertension Poorly controlled. A/P: Currently requiring vasopressor support. Consider initiation of antihypertensive regimen as appropriate. Acute Post-Operative Pain A/P: Optimize pain control with PRN Fentanyl, scheduled lidoderm patches. Type II Diabetes Mellitus (Hcc) A/P: Continue blood glucose control with SSI. Severe Protein-Calorie Malnutrition (Hcc) A/P: Strict NPO. Continue TPN. Epistaxis Endorses a long history of intermittent nosebleeds on the left. A/P: S/p nasal packing with Surgicel fibrillar. ENT following, appreciate recs. Mediastinitis Hospital course c/b mediastinitis with fevers an purulent chest tube output on vancomycin/aztreonam/diflucan. ID following. Follow blood cultures. Tobacco Abuse A/P: Encourage smoking cessation and continue education. Ckd (Chronic Kidney Disease) A/P: Cr 1.16. CKD. Avoid hypotension, nephrotoxic agents, and renally dose medications. BP 114/59 Pulse 78 Temp 37.3 ?C (99.1 ?F) (Oral) Resp 21 Ht 177.8 cm (5' 10) Wt 105.2 kg (231 lb 14.8 oz) SpO2 96% BMI 33.28 kg/m? Infusions: Norepinephrine Propofol CVICU Admission CXR: Reviewed. Neuro: Sedation, PERRL. Cardiovascular: Rhythm: regular rate and rhythm and Rate: sinus rhythm MAP: 74 mmHg Pacemaker : None ICD: No Peripheral pulses present: All present Pulmonary: Breath sounds equal Ventilator: Intubated Potential prolonged intubation : No Abdominal: Soft Continued need for urinary catheter: Yes - clinical indication: Patient post major surgery requiring fluid balance and input and output measurement. DAY OF SURGERY PLAN: Standard Protocol, intubated patient: Cardiovascular monitoring, stabilization of blood pressure and cardiac function, wean to extubate when ready per protocol. Pain control, glycemic control, DVT prophylaxis, antibiotic prophylaxis. SIGNATURE: Quiana Valentine APRN.CNP DATE of SERVICE: 04/29/2018 TIME of SERVICE: 6:25 PM Estrellita Leija DO 04/29/2018 8:25 PM Attested Attestation signed by Zahida Figueroa at 04/29/2018 10:31 PM I was available to assist if needed Zahida Figueroa MD CTA BEDSIDE PROCEDURE NOTE ARTERIAL LINE Date/Start Time: 04/29/2018 8:24 PM Performed by: ESTRELLITA LEIJA (RES) Authorized by: ZAHIDA FIGUEROA Consent/[place] Protocol Written consent obtained: No, emergent procedure Pre-procedure Details: PPE Used: Sterile gloves, mask and cap The area was prepped with chlorhexidine (Chloroprep) and allowed to dry. A sterile partial body drape was applied following the usual aseptic technique. Medications: Sedation Sedation (see MAR): Propofol Procedure Details: Indication: Monitoring of vital bodily functions and frequent ABGs and labs Site: Left radial Technique: Modified Seldinger The artery was cannulated with a 20 gauge catheter. A straight- tipped spring wire was passed into the artery through the indwelling catheter and left in situ while the catheter was removed. A 12 cm, 20 gauge catheter was advanced over the guidewire and left in situ while the guidewire was removed. Pulsatile blood flow exited the catheter. Arterial waveform was noted on the monitor when the catheter was transduced. Securement/Dressing: Sterile, transparent, occlusive dressing All catheters, needles, and wires were accounted for and intact Number of attempts: 1 Post-procedure Details: Patient tolerated the procedure well with no immediate complications Estimated Blood Loss: Scant SIGNATURE: Estrellita Leija DO PATIENT NAME: Lazaro Villafana DATE: April 29, 2018 TIME: 8:24 PM PAGER/CONTACT #: Delisa Hawley RN, RN 04/30/2018 12:44 AM Signed Nursing Progress: Topic: RESTRAINT NON-VIOLENT PATIENT NAME: Lazaro Villafana PATIENT LOCATION: [address]14 The patient demonstrates Attempting to Remove Medical Devices Vital to Medical Stability as evidenced by the following behaviors attempting to pull ETT AND invasive lines which pose an imminent danger to self or others. The following interventions were attempted but were not effective in protecting the patient's safety: Bed in Low/Locked Position, Modify Environment, Modify Equipment, Frequent Observation, Re-Orientation Methods Next, a comprehensive assessment was performed and warranted placing the patient in Soft Bilateral Wrists, the least restrictive restraint needed to protect the patient's safety. Ongoing safety assessments and evaluation for earliest removal of restraints will be performed. DATE: April 30, 2018 TIME: 12:43 AM BLAYNE Smallwood MD 04/30/2018 10:45 AM Signed [facility] Note Name: Lazaro Villafana Coordination of Care Note: Important/Relevant PMH/PSH: Alcohol use disorder with recent diagnosis of cirrhosis w/ esophageal varices, type II DM, poorly controlled HTN, CKD, COPD, tobacco smoker 2-3 PPD. Hospital Course: HPI: Lazaro Villafana is a 52 year old male with alcohol use disorder with recent diagnosis of cirrhosis w/ esophageal varices who presents on transfer from OSH with hematemesis s/p EGD at OSH c/b esophageal laceration; MELD >?20. R-sided chest tube for hydropneumothorax. Admitted to [facility] SICU 04/14/18. 04/15/18: EGD showed 5cm esophageal laceration without active bleeding. 04/16/18: Right chest tube placed for effusion. 04/22/18: Extubated. 04/26/18: EGD: partial mucosal tear in mid esophagus. 04/27/18: Eesophagram showed persistent leak. 04/29/18: EGD 04/29: Esophageal stent successfully placed in Q3. Acute pulmonary insufficiency following non-thoracic surgery requiring intubation. Respiratory status improved with placement of CT to sxn. See Epic note for more details. Per discussion between Dr Jerry and Dr Soto the patient's care will be transitioned to Thoracic Surgery care, thoracic Surgery being primary team. Transferred to CVICU from SICU. A/P of Major Active Problems (excluding routine care and common problems): CV: SR. Off pressors. Resp: Arrived intubated and sedated. Respiratory insufficiency improved with CT to sxn post procedure. Vent wean as able. R-sided chest tube for hydropneumothorax. 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 GI: Strict NPO, TPN. Cirrhosis. INR 1.5. POD 1 Esoph stent to be removed in 4 weeks. Heme: Hb 8. Plts 134k. INR 1.5. Cautious use of SQH given bedrest. Renal: Cr 1.16-->1.25 CKD. Lasix qtt all night. Hold qtt and redose tomorrow. Endo: Lantus 20 and SSI. ID: Hospital course c/b mediastinitis with fevers an purulent chest tube output on vancomycin/aztreonam/flagyl/diflucan. ID following. Epistaxis: ENT following-->Nasal packing with Surgicel fibrillar. Lines: L IJ triple lumen (04/27/18). To Do or to Watch: WTE Precedex as needed NPO/TPN/No NGT for now Possibly lasix again tomorrow. Plan TIPS prior to decortication Esophageal stent Recent epistaxis Vanc/aztreonam/flagyl/fluc Issues I addressed are: Non Gap Metabolic Acidosis Hyperglycemia Alcoholic Cirrhosis (Hcc) Copd (Chronic Obstructive Pulmonary Disease) (Hcc) Esophageal Perforation Acute Post-Operative Pain Acute Respiratory Insufficiency Consolidation of Right Lower Lobe of Lung (Hcc) Tobacco Abuse Mediastinitis Severe Protein-Calorie Malnutrition (Hcc) Delirium Due to General Medical Condition Epistaxis Acute Respiratory Failure (Hcc) Type II Diabetes Mellitus (Hcc) History of Hypertension Hydropneumothorax Ckd (Chronic Kidney Disease) General-No distress. Neuro-awake and fluent post extubation ;NICOLAS's Neck-No JVD CV-RRR Lungs-CTA. Unlabored Abd-soft and NT. Mild distention. R chest tube. Ext-WWP. 2+ edema. This patient has a high probability of sudden, clinically significant deterioration, which requires the highest level of preparedness to intervene urgently. I participated in the decision making and personally managed or directed the care plan, including medical problems that required my frequent assessment to treat or prevent imminent deterioration. I personally spent 40 minutes of critical care time treating the patient. Time devoted to any procedures I billed separately is not included. I also rounded with the thoracics team. SIGNATURE: García Hodge MD DATE of SERVICE: 04/30/2018 TIME of SERVICE: 10:41 AM Garrison Gr MD 04/30/2018 11:51 AM Signed [facility] STAFF PHYSICIAN NOTE OF PERSONAL INVOLVEMENT IN CARE IMPRESSION: Patient is a 52 year old male with advanced cirrhosis, ascites, esophageal varices, moderate liver synthetic dysfunction and thrombocytopenia Admitted with esophageal perforation in to right pleural space, drained with a chest tube but has developed loculations that are undrained. Stented yesterday. Overnight continues to be febrile. Respiratory status stable to improving and he is weaning to extubate. I had a detailed discussion with the ICU staff, my team and the patient's on the phone. In the setting of cirrhosis, ascites, empyema and esophageal perforation and on going fevers, it is unlikely that he will be salvaged without clearing the persistent infection in his chest. Any thoracic intervention carries a high risk of morbidity and mortality. I have made this very clear to the . My recommendation is to perform TIPS to decompress the portal system and perform right pleural decortication. There is no doubt that this is a high risk undertaking but this is what we need to do to safe his life. All parties understand and are in agreement. PLAN: - IR consult for TIPS urgently - Plan for thoracic exploration tomorrow morning - He will need platelet, FFP and PRBC transfusions ad tomas I have reviewed the documentation obtained and documented by the Resident and have reviewed and updated the problem list as appropriate. I have personally performed a face to face assessment of the patient and have personally participated in the jang components. I have discussed the case and management of the patient's care. STAFF PHYSICIAN: Garrison Gr MD DATE OF SERVICE: April 30, 2018 TIME OF SERVICE: 11:44 AM Isidra Glass DO 04/30/2018 3:40 PM Signed Department of Gastroenterology AND Hepatology Initial Consult Note Date of Service: April 30, 2018 Patient: Lazaro Villafana Medical Record: [id number] Reason for Admission / Consultation: Opinion/Advice regarding TIPS procedure Hepatology Attending: Isidra Glass DO Impression: Lazaro Villafana is a 52 year old gentleman with history notable for presumed EtOH related cirrhosis with risk factors for BOONE with disease course c/b portal HTN (EV) who presented with complaints?of several day history of nausea, vomiting, melena, and hematemesis prompting tony tube placement at that time (unsure if gastric vs. Gastric and esophageal balloon inflated) found to have partial thickness esophageal tear and large EV. ? His hospital course c/b mediastinitis with fevers an purulent chest tube output on vancomycin/aztreonam/diflucan, respiratory failure requiring intubation now extubated (04/22) and stable from pulmonary standpoint, and on TPN. ?? XR Esophagram with persistent leak now s/p esophageal stent placement. He has persistent fevers and empyema. Thoracic surgery planning right pleural decortication. Hepatology consulted for TIPS evaluation to decompress portal system prior to thoracic intervention. He does have a hx of encephalopathy in the past Recommendations: --- Recommend Echo for evaluation of pulmonary pressures --- Has increased risk of post-TIPS encephalopathy given hx of prior encephalopathy; this can be monitored post-procedurally and TIPS can be adjusted after thoracic intervention completed if patient develops encephalopathy --- Given the need for urgent intervention, can proceed with TIPS per IR Alec Cheung MD Gastroenterology and Hepatology Fellow Discussed with staff, Dr. Glass We will continue to follow History of Present Illness: Lazaro Villafana is a 52 year old gentleman with history notable for presumed EtOH related cirrhosis with risk factors for BOONE with disease course c/b portal HTN (EV) who presented with complaints of several day history of nausea, vomiting, melena, and hematemesis prompting tony tube placement at that time (unsure if gastric vs. Gastric and esophageal balloon inflated) subsequently transferred to [facility] where he underwent EGD revealing Grade II non bleeding EV and a long 7 cm laceration (31-38 cm from the incisors) with GE junction documented to be at 45 cm. ? Mr. Villafana has an additional history significant for - Non insulin dependent Diabetes Mellitus - Hypertension - Chronic Kidney Disease - Chronic obstructive pulmonary disease - EtOH abuse disorder ? EGD (04/14/18): ?4:20 PM - GE junction at 45 cm - Grade II Esophageal varices, 2 columns not actively bleeding - Laceration with adherent clot from 31 - 38 cm from incisors. ? ? Transferred to [facility] and re-scoped 04/15/18: ? EGD (04/15/18): - Deep mucosal tear 31-38 cm from incisors - Large varices in lower third of esophagus - Hematin in stomach - Scope not advanced to duodenum to avoid additional pressure on esophagus ? His hospital course c/b mediastinitis with fevers an purulent chest tube output on vancomycin/aztreonam/diflucan, respiratory failure requiring intubation and on TPN. He was again re-scoped on 04/26/18: EGD (04/26/18): - Mucosal tear in middle third of esophagus from 31 to 38 cm healing well - PHG ? XR Esophagram (04/27/18) demonstrated persistent right mid-esophageal perforation and endoscopic esophageal stent placed on 04/29/18 EGD (04/29/18): - Non-bleeding large (> 5 mm) esophageal varices. - Deep mucosal tear in the middle third of the esophagus. This measured 5 cm (from 35 to 30 cm). Wallflex fully covered esophageal stent (23 mm x 15.5 cm) placed. 2 clips (MR conditional) were placed on the proximal end of the stent to reduce the risk of stent migration. He was then transferred to thoracic surgery service. He has persistent fevers and empyema. Thoracic surgery planning right pleural decortication. Hepatology consulted for TIPS evaluation to decompress portal system prior to thoracic intervention. MELD-Na score: 13 at 04/30/2018 12:05 AM MELD score: 13 at 04/30/2018 12:05 AM Calculated from: Serum Creatinine: 1.25 mg/dL at 04/30/2018 12:05 AM Serum Sodium: 141 mmol/L (Rounded to 137) at 04/30/2018 12:05 AM Total Bilirubin: 0.3 mg/dL (Rounded to 1) at 04/30/2018 12:05 AM INR(ratio): 1.5 at 04/30/2018 12:05 AM Age: 52 years No Echo for evaluation of pulmonary pressures. He does have a history of encephalopathy in the past on lactulose previously. Pertinent Review of Systems: Negative except as mentioned above Past Medical History: PAST MEDICAL HISTORY Diagnosis Date - Cirrhosis (HCC) - COPD (chronic obstructive pulmonary disease) (HCC) - Diabetes (HCC) - ETOH abuse - Hypertension Past Surgical History: No past surgical history on file. Family History: No family history on file. Social History: Social History Marital status: Spouse name: Years of education: Number of children: Social History Main Topics Smoking status: Current Every Day Smoker Packs/day: 0.00 Years: 0.00 Alcohol use: Yes Drug use: Yes Allergies: ALLERGIES Allergen Reactions - Ciprofloxacin Unknown - Penicillin Unknown Tolerating cefepime Medications: Prior to Admission Medications: amLODIPine (NORVASC) 10 mg tablet Take 10 mg by mouth once daily. metFORMIN (GLUCOPHAGE) 500 mg tablet Take 500 mg by mouth twice daily. losartan (COZAAR) 50 mg tablet Take 50 mg by mouth once daily. lactulose (DUPHALAC, CONSTULOSE) 10 gram/15 mL solution glyBURIDE (DIABETA) 5 mg tablet Take 5 mg by mouth twice daily. hydrOXYzine pamoate (VISTARIL) 50 mg capsule Take 50 mg by mouth twice daily as needed. NORepinephrine (LEVOPHED) 16 mg in D5W 250 mL Inject 0.6-30 mcg/min intravenously continuous. metroNIDAZOLE (FLAGYL) 500 mg/100 mL Inject 100 mL intravenously every 8 hours. aztreonam (AZACTAM) 1 g in D5W 100 mL Inject 100 mL intravenously every 8 hours. propofol infusion (DIPRIVAN) 10 mg/mL injection Inject 0.485- 5.82 mg/min intravenously continuous. pantoprazole (PROTONIX) 40 mg injection Inject 10 mL intravenously twice daily. octreotide 500 mcg in D5W 100 mL Inject 50 mcg/hr intravenously continuous. Current hospital medications: dexmedetomidine 400 mcg in NaCl 0.9% 100 mL (PRECEDEX) 0.2- 1.5 mcg/kg/hr INTRAVENOUS CONTINUOUS sodium chloride 0.65 % 2 [place] (AYR, OCEAN) 2 [place] EACH NOSTRIL 5X/DAY nasal ointment ([facility]) TOPICAL BID Parenteral Nutrition - Adult INTRAVENOUS ONCE TPN (2200 START) NORepinephrine 16 mg in D5W 250 mL (LEVOPHED) 0.6-30 mcg/min INTRAVENOUS CONTINUOUS propofol infusion (DIPRIVAN) 5-60 mcg/kg/min INTRAVENOUS CONTINUOUS furosemide 500 mg in empty container, plastic bag 50 mL IV infusion (LASIX) 5 mg/hr INTRAVENOUS CONTINUOUS dextrose 5% in water iv infusion 5-30 mL/hr INTRAVENOUS CONTINUOUS fat emulsion infusion 20% (INTRALIPID) 250 mL INTRAVENOUS MO-WE-FR (10PM) metoprolol 10 mg injection (LOPRESSOR) 10 mg INTRAVENOUS q 6 HR OLANZapine orally disintegrating 10 mg tab(s) (ZyPREXA ZYDIS) 10 mg ORAL AT BEDTIME lidocaine 5 % 1 Patch (LIDODERM) 1 Patch TRANSDERMAL DAILY lidocaine patch - REMOVE OTHER AT BEDTIME lidocaine - VERIFY PATCH OTHER q 8 H labetalol 10 mg injection syringe (NORMODYNE) 10 mg INTRAVENOUS q 2 H PRN insulin glargine 20 Units pen (long acting) (LANTUS SOLOSTAR, BASAGLAR KWIKPEN) 20 Units SUBCUTANEOUS AT BEDTIME vancomycin iv piggyback 1 g in D5W 200 mL (VANCOCIN) 1 g INTRAVENOUS q 12 HR aztreonam 2 g in D5W 100 mL MB+ (AZACTAM) 2 g INTRAVENOUS q 6 HR heparin 5,000 Units injection 5,000 Units SUBCUTANEOUS q 12 H fluconazole 400 mg in NaCl (iso-osmotic) 200 mL (DIFLUCAN) 400 mg INTRAVENOUS DAILY vancomycin dosing and monitoring per pharmacy OTHER As Directed insulin regular human injection (short acting) (NovoLIN R,HumuLIN R) SUBCUTANEOUS q 6 H potassium chloride iv piggyback 20 mEq/100 mL 20 mEq INTRAVENOUS PRN potassium chloride 20-80 mEq CUP 20-80 mEq ORAL/FEEDING TUBE PRN magnesium sulfate in water 2 g in sterile water 50 ml 2 g INTRAVENOUS PRN sodium glycerophosphate 15 mmol in D5W 250 mL (GLYCOPHOS) 15 mmol INTRAVENOUS PRN sodium glycerophosphate 30 mmol in D5W 250 mL (GLYCOPHOS) 30 mmol INTRAVENOUS PRN sodium glycerophosphate 45 mmol in D5W 250 mL (GLYCOPHOS) 45 mmol INTRAVENOUS PRN dextrose 40 % 15 g 15 g ORAL PRN glucagon 1 mg injection (GLUCAGEN) 1 mg INTRAMUSCULAR PRN dextrose 50 % 12.5 g injection 12.5 g INTRAVENOUS PRN NaCl 0.9% 3-5 mL 3-5 mL INTRAVENOUS q 12 H fentaNYL 50 mcg/mL 25-50 mcg injection (SUBLIMAZE) 25-50 mcg INTRAVENOUS q 1 H PRN metroNIDAZOLE 500 mg PREMIX piggyback (FLAGYL) 500 mg INTRAVENOUS q 8 H ipratropium-albuterol 3 mL nebulizer solution (DUONEB) 3 mL INHALATION q 4 H PRN pantoprazole 40 mg injection (PROTONIX) 40 mg INTRAVENOUS BID AC (0600/1600) Physical Exam: Vital Signs 04/30/18 1210 04/30/18 1230 04/30/18 1250 04/30/18 1310 BP: Pulse: 90 87 79 81 Resp: 19 20 18 22 Temp: TempSrc: SpO2: 96% 96% 97% 97% Weight: Height: Intake/Output Summary (Last 24 hours) at 04/30/18 1336 Last data filed at 04/30/18 1230 Gross per 24 hour Intake 3844.6 ml Output 5352 ml Net -1507.4 ml VITAL SIGNS: BP 136/74 Pulse 81 Temp (Src) 100 (Oral) Resp 22 Ht 5' 10 (1.78m) Wt 236 lb 15.9 oz (107.5kg) SpO2 97% BMI 34.01 kg/(m2). General appearance: alert, in no acute distress Skin: no rashes or lesions Head: normal Eyes: Anicteric sclera. Lungs: lungs clear to auscultation, no wheezing or rhonchi; +chest tube Heart: RRR without murmur Abdomen: Abdomen soft, non-tender. Bowel sounds normal. Neuro: CN2-12 grossly intact Labs: CBC, Coags, BMP, Mg, Phos Recent Labs 04/30/18 1111 04/30/18 0834 04/30/18 0451 04/30/18 0445 04/30/18 0005 04/29/18 0200 04/28/18 1236 04/28/18 0106 WBC -- -- -- 7.89 -- 7.44 -- -- -- 7.63 HB -- -- -- 8.0* -- 6.7* -- -- -- 7.8* HCT -- -- -- 25.0* -- 22.3* -- -- -- 25.5* PLT -- -- -- 134* -- 137* -- -- -- 145* INR -- -- -- -- -- 1.5* -- -- -- -- APTT -- -- -- -- -- 34.1* -- -- -- -- NA -- -- -- -- -- 141 -- 142 144 -- K -- -- -- -- -- 4.5 -- 4.6 4.9 -- CHLOR -- -- -- -- -- 111* -- 111* 113* -- CO2 -- -- -- -- -- 20* -- 21* 23 -- BUN -- -- -- -- -- 42* -- 39* 38* -- CREAT -- -- -- -- -- 1.25* -- 1.16 1.21 -- GLUC -- -- -- -- -- 130* -- 173* 123* -- IC 1.19 1.14 1.17 -- < > -- < > -- -- -- CA -- -- -- -- -- 7.8* -- 7.6* 8.0* -- MG -- -- -- -- -- 2.1 -- 2.0 -- 1.9 P -- -- -- -- -- 4.4 -- 3.3 -- 3.6 < > = values in this interval not displayed. Liver Function, Amylase, AND Lipase Recent Labs 04/30/18 1111 04/30/18 0834 04/30/18 0451 04/30/18 0005 TPROT -- -- -- -- 6.9 ALB -- -- -- -- 2.0* ALT -- -- -- -- 20 AST -- -- -- -- 46* ALKPHOS -- -- -- -- 63 TBILI -- -- -- -- 0.3 LACT 0.7 1.1 1.2 < > -- < > = values in this interval not displayed. SIGNATURE: Alec Cheung MD PATIENT NAME: Lazaro Villafana DATE: April 30, 2018 TIME: 1:36 PM PAGER/CONTACT #: [phone] Fellow's history reviewed. Patient interviewed and examined. 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 Being managed for esophageal tear and has known varices. He reports being treated for high ammonia in the past with lactulose. On exam, I find no asterixis. Assessment and plan reviewed with fellow. Labs/tests show MELD-Na score: 13 at 04/30/2018 12:05 AM MELD score: 13 at 04/30/2018 12:05 AM Calculated from: Serum Creatinine: 1.25 mg/dL at 04/30/2018 12:05 AM Serum Sodium: 141 mmol/L (Rounded to 137) at 04/30/2018 12:05 AM Total Bilirubin: 0.3 mg/dL (Rounded to 1) at 04/30/2018 12:05 AM INR(ratio): 1.5 at 04/30/2018 12:05 AM Age: 52 years Recommendations: Echo if time allows TIPS is reasonable in this patient Monitor for worsening encephalopathy post TIPS and surgery I have personally examined the patient and repeated the jang components of the exam/history. The assessment and plan were formulated and discussed with the resident/fellow. See fellow's note for further details. Isidra Glass, April 30, 2018 3:40 PM Previous Version Stanislav Nunez MD 04/30/2018 7:46 PM Addendum INTERVENTIONAL RADIOLOGY CONSULT NOTE Subjective Reason for Referral: Evaluation for TIPS Indications for Procedure: bleeding esophageal varices. Prophylaxis for decortication in a patient with pulmonary hypertension. Pertinent History: Lazaro Villafana is a 52 year old yo male w PMH of Hx of type II DM, HTN, CKD, COPD, 2-3 PPD, EtOH abuse, liver cirrhosis, presenteed to OSH with several day history of nausea, vomiting, melena, and hematemesis prompting tony tube placement at that time resulting in partial thickness esophageal perforation. Pt transferred here. 04/15 EGD showed 5cm esophageal laceration without active bleeding. 04/16 Right chest tube placed for effusion.04/26 EGD, well healing esophageal tear. 04/27 esophagram shows persistent leak. Thoracic surgery would like to proceed with decortication, would like pre-op TIPS to decrease bleeding from esophogeal varices. ALLERGIES Allergen Reactions - Ciprofloxacin Unknown - Penicillin Unknown Tolerating cefepime Objective Vitals: BP 136/74 Pulse 81 Temp 37.8 ?C (100 ?F) (Oral) Resp 22 Ht 177.8 cm (5' 10) Wt 107.5 kg (236 lb 15.9 oz) SpO2 97% BMI 34.01 kg/m? ASA Class: Physical Exam: Airway: -Airway- Visualization of Uvula: Yes -Mouth - Opening greater than 2 fingerbreadths: Yes - Incisor distance at least 3 finger breadths: Yes -Neck - Full Range of Motion: Yes - Hyoid-Mental distance at least 3 finger breadths: Yes - Cugsjle-se-Kpmzo distance at least 2 finger breadths: Yes Constitutional: Well appearing, alert, in no acute distress, well-hydrated, well nourished. Oropharynx: poor dentition, missing medial 4 upper teeth Neck: Supple, no adenopathy; thyroid symmetric, normal size, no bruits Back: not examined Chest: breathing comfortably. No increased WOB. Cardiovascular: NRRR Abdomen: Normal abdominal exam, Abdomen soft, non-tender. Bowel sounds normal. No masses, organomegaly Extremities: No deformities, edema, skin discoloration, clubbing or cyanosis. Good capillary refill. Peripheral Pulses: Normal Neuro: Oriented X 3 I concur with physical exam. In addition, the patient is moderately obese with mild hepatomegaly on exam. No JVD. Pertinent Labs: CBC, Coags, BMP, Mg, Phos Recent Labs 04/30/18 1111 04/30/18 0834 04/30/18 0451 04/30/18 0445 04/30/18 0005 04/29/18 0200 04/28/18 1236 04/28/18 0106 WBC -- -- -- 7.89 -- 7.44 -- -- -- 7.63 HB -- -- -- 8.0* -- 6.7* -- -- -- 7.8* HCT -- -- -- 25.0* -- 22.3* -- -- -- 25.5* PLT -- -- -- 134* -- 137* -- -- -- 145* INR -- -- -- -- -- 1.5* -- -- -- -- APTT -- -- -- -- -- 34.1* -- -- -- -- NA -- -- -- -- -- 141 -- 142 144 -- K -- -- -- -- -- 4.5 -- 4.6 4.9 -- CHLOR -- -- -- -- -- 111* -- 111* 113* -- CO2 -- -- -- -- -- 20* -- 21* 23 -- BUN -- -- -- -- -- 42* -- 39* 38* -- CREAT -- -- -- -- -- 1.25* -- 1.16 1.21 -- GLUC -- -- -- -- -- 130* -- 173* 123* -- IC 1.19 1.14 1.17 -- < > -- < > -- -- -- CA -- -- -- -- -- 7.8* -- 7.6* 8.0* -- MG -- -- -- -- -- 2.1 -- 2.0 -- 1.9 P -- -- -- -- -- 4.4 -- 3.3 -- 3.6 < > = values in this interval not displayed. Liver Function, Amylase, AND Lipase Recent Labs 04/30/18 1111 04/30/18 0834 04/30/18 0451 04/30/18 0005 TPROT -- -- -- -- 6.9 ALB -- -- -- -- 2.0* ALT -- -- -- -- 20 AST -- -- -- -- 46* ALKPHOS -- -- -- -- 63 TBILI -- -- -- -- 0.3 LACT 0.7 1.1 1.2 < > -- < > = values in this interval not displayed. Cardiac Enzymes Critical Imaging Findings: No recent ECHO. MELD-Na score: 13 at 04/30/2018 12:05 AM MELD score: 13 at 04/30/2018 12:05 AM Calculated from: Serum Creatinine: 1.25 mg/dL at 04/30/2018 12:05 AM Serum Sodium: 141 mmol/L (Rounded to 137) at 04/30/2018 12:05 AM Total Bilirubin: 0.3 mg/dL (Rounded to 1) at 04/30/2018 12:05 AM INR(ratio): 1.5 at 04/30/2018 12:05 AM Age: 52 years PROVISIONAL DIAGNOSIS/TREATMENT PLAN: Proceed with TIPS No recent ECHO, will obtain right heart pressure intraoperatively and if normal will proceed with porocedure, if right heart pressures are grossly elevated will abort TIPS. Will monitor for encephalopathy post-procedurally. Labs are appropriate for the procedure. Sedation Goal: General anesthesia. Consent Obtained. DNR Status Discussed with patient/family: No. DNR Status: FULL CODE The patient will be tentatively scheduled for later today. Please make the patient NPO now. Case d/w attending physician, Dr. Nunez I concur with the plan. This HANDP can be found in the Electronic Medical Record dated 04/30/18. SIGNATURE: Jose Murphy MD PATIENT NAME: Lazaro Villafana DATE: April 30, 2018 TIME: 2:25 PM PAGER: [phone] IR director of early childhood education Pager #[phone] (use M-F after 5pm and on Weekends) [facility] STAFF PHYSICIAN NOTE OF PERSONAL INVOLVEMENT IN CARE I have reviewed the consult note obtained and documented by the resident and I personally participated in the jang components. I have discussed the case and management of the patient's care. The following comments revise or confirm relevant jang components of their note. 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 PLAN: TIPS to be performed urgently prior to thoracic surgery jeff Nunez MD Interventional Radiology Pager [phone] TIME of SERVICE: 7:43 PM Previous Version Sana Rasheed RN, RN 04/30/2018 5:07 PM Signed AMBULATORY PATIENT EDUCATION TOPIC: TIPS READINESS TO LEARN COGNITIVE ABILITY: Alert and oriented MOTIVATION TO LEARN: Interested FAMILY SUPPORT: Unable to assess - Family not present INSTRUCTION PROVIDED TO: Patient PATIENT LEARNS BEST BY: Individual Instruction Verbal Instruction FACTORS AFFECTING LEARNING: None PHYSICAL LIMITATIONS AFFECTING LEARNING: None LEARNING RESPONSE DIAGNOSIS: Portal HTN METHOD OF INSTRUCTION: Individual instruction Verbal instruction PATIENT / FAMILY RESPONSE: Information received as demonstrated by interest and questions FOLLOW-UP PLAN: Recommend - Recommend continued instruction and follow up as directed SUPPLEMENTAL MATERIAL: None REFERRAL (RECOMMENDATION): None Electronically Signed By: Sana Rasheed RN In Department: [id number] Radha Queen MD, MD 04/30/2018 7:33 PM Signed UPDATED PROCEDURAL SEDATION HISTORY AND PHYSICAL EXAMINATION SERVICE DATE: 04/30/2018 SERVICE TIME: 7:32 PM PHYSICAL EXAM MUST BE COMPLETED ON ADMISSION PROCEDURE SCHEDULED: Procedure(s): INSERT TIPS SHUNT STENT (Right) RADIOLOGY ORDER PLACED: The History and Physical (completed in the past 30 days) has been reviewed and the patient has been examined. The contents accurately reflect the patient's condition with the following additions or revisions since the HANDP was completed. ASA Class: ASA Class:: Patient with mild systemic disease Examination indicates no changes. AIRWAY: Airway Visualization of Uvula: Yes Mouth opening greater than 2 fingerbreadths: Yes Neck Full Range of Motion: Yes LUNGS: Lungs clear to auscultation, Good diaphragmatic excursion CARDIAC: Normal S1 and S2; no rubs, murmurs, or gallops Provisional Diagnosis/Treatment Plan: cirrhosis, GI bleeding, esophageal laceration; TIPS SEDATION GOAL: Anesthesia This HANDP can be found in the Electronic Medical Record dated 04/14/2018. SIGNATURE: Radha Queen MD PATIENT NAME: Lazaro Villafana DATE: April 30, 2018 TIME: 7:32 PM PAGER: [phone] Gricelda Weller MD 04/30/2018 7:52 PM Signed POST ANESTHESIA EVALUATION NOTE SERVICE DATE: 04/30/2018 SERVICE TIME: 7:50 PM : 1965 Vitals: 04/30/18 0750 04/30/18 0810 04/30/18 0850 04/30/18 1500 Temp: (!) 38 ?C (100.4 ?F) (!) 38.3 ?C (100.9 ?F) 37.8 ?C (100 ?F) (!) 38.2 ?C (100.8 ?F) 04/30/18 1550 04/30/18 1610 04/30/18 1630 04/30/18 1650 Arterial BP 1: 147/62 156/65 139/67 155/64 BP: 04/30/18 1610 04/30/18 1630 04/30/18 1641 04/30/18 1650 Pulse: 86 96 92 95 04/30/18 1610 04/30/18 1630 04/30/18 1641 04/30/18 1650 Resp: 27 20 23 22 04/30/18 1610 04/30/18 1630 04/30/18 1641 04/30/18 1650 SpO2: 95% 93% 94% 95% Validated Vital Signs: HR: 94; BP: 133/70; RR: 16; SpO2%: 99; Temperature: 36.3 POST ANES STATUS: PACU/ICU Patient Condition: Guarded Neurological Status: On intravenous sedation. Pulmonary Status: On invasive mechanical ventilation. Airway Control: Intubated on mechanical ventilation. Cardiovascular Status: Guarded Pain: Adequately controlled Postoperative Nausea/Vomiting: No significant post operative nausea or vomiting Postoperative Hydration Status: Adequate. Intra-Operative Events: No Significant Anesthesia Events Anesthetic Complications: None Recommendation: Continue current plan of care and Further care per PACU/ICU/Floor team Other Remarks: SIGNATURE: Gricelda Weller MD PATIENT NAME: Lazaro Villafana DATE: April 30, 2018 TIME: 7:50 PM PAGER/CONTACT #: [phone] [facility] Observed: 04/14/2018 Status: COMPLETED Source: [place] 12:00 AM CLINIC OTHER CAMPUS REPOSITORY Patient:Lazaro Villafana MRN: <[id number]> Height:5' 10(1.778 m) Weight:213 lb 13.5 oz (97 kg) Outpatient Medications as of 04/14/18: Patient has no current outpatient medications. Admission/Clinic Administered Medications as of 04/14/18: albuterol 2.5 mg /3 mL (0.083 %) 2.5 mg (PROVENTIL) aztreonam 1 g in D5W 100 mL MB+ (AZACTAM) dextrose 50% in water 25-50 mL syringe fentaNYL 50 mcg/mL 25-50 mcg injection (SUBLIMAZE) folic acid 1 mg injection insulin regular 250 units in NaCl 0.9% 250 mL iv infusion - ICU NOMOGRAM ipratropium-albuterol 3 mL nebulizer solution (DUONEB) iv contrast (radiology procedure) LORazepam 1-2 mg injection (ATIVAN) metroNIDAZOLE 500 mg PREMIX piggyback (FLAGYL) NaCl 0.9% 3-5 mL octreotide 500 mcg in D5W 100 mL (SandoSTATIN) pantoprazole 40 mg injection (PROTONIX) propofol infusion (DIPRIVAN) sodium bicarbonate 50 mEq in NaCl 0.45% 1,000 mL infusion thiamine 200 mg in NaCl 0.9% 50 mL Problem List: Upper GI bleed [K92.2] GI bleed [K92.2] Allergies: Ciprofloxacin Penicillin Date Verified: 04/14/18 Lab Values Lab Value Units Date High Low POTA* 5.3 mEq/L 04/14/2018 5.1 3.5 DAVID* 25.3 % 04/14/2018 51.0 40.1 No progress notes entered within the past 30 days AMMONIA Collected: 04/05/2018 Status: F Source: [place] 2:33 PM [facility] REPOSITORY TYPE CODE TESTS RESULT OUT OF REFERENCE UNITS RANGE LAB L503.5510 11-32 umol/L High AMMONIA 35.0 Performed By: #### L503.5510 #### [facility] [address] [place], [place], [address] CBC W/DIFF, AUTOMATED Collected: 04/05/2018 Status: F Source: [place] 2:33 PM [facility] REPOSITORY TYPE CODE TESTS RESULT OUT OF RANGE REFERENCE UNITS LAB L100.1000 4.4-11.0 K/mm3 Low WBC 3.6 LAB L100.1200 4.6-6.2 M/mm3 Low RBC 4.07 LAB L100.1300 13.0-16.5 g/dl Low HGB 12.5 LAB L100.1400 40-54 % Low HCT 38.0 LAB L100.1500 80-94 fL Normal MCV 93.4 LAB L100.1600 27.0-32.0 pg Normal MCH 30.7 LAB L100.1700 32-36 g/gl Normal MCHC 32.9 LAB L100.1810 11.6-14.6 % Normal RDW CV 13.0 LAB L100.1820 35.1-43.9 fl Normal RDW SD 43.2 LAB L100.1900 150-450 K/mm3 Low PLT 60 LAB L100.2000 6.2-12.0 fl Normal MPV 11.3 LAB L100.2100 47-70 % Normal NEUT% 66.8 LAB L100.2200 19-41 % Normal LY% 21.2 LAB L100.2300 0-10 % Normal MONO% 8.2 LAB L100.2400 0-5 % Normal EO% 3.0 LAB L100.2500 0-1 % Normal BASO% 0.5 LAB L100.2550 0.0-0.9 % Normal IM GRAN % 0.300 Result Comment: IG% - Immature Granulocytes (promyelocytes, myelocytes and metamyelocytes) > 1% indicates that a LEFT SHIFT is Present. LAB L100.2620 2.0-7.7 X10 3/uL Normal Absolute Neut 2.4 LAB L100.2720 0.83-4.51 X10 3/ul Low Absolute Lymph 0.77 Performed By: #### L100.0100 #### [facility] [address] [place], [place], [address] COMPREHENSIVE METABOLIC Collected: 04/05/2018 Status: F [facility] PM [facility] REPOSITORY Order Comment: Comments: B6 #[id number] PLASMA FROZEN PFL TYPE CODE TESTS RESULT OUT OF RANGE REFERENCE UNITS LAB L501.0100 74-106 mg/dL High GLU 282 Result Comment: Glucose result greater than or equal to 200 mg/dL suggests DIABETES MELLITUS per A.D.A. criteria. Please note revised GLUCOSE reference range effective 2017. LAB L501.1000 7-18 mg/dL High BUN 24 LAB L501.1100 0.70-1.30 mg/dL Normal CREAT,SERUM 1.25 Result Comment: The validity of the calculated GFR AND GFRAA in patients over 70 years has not been determined. Clinical correlation is essential. LAB L501.1110 >60 mL/min Normal EST GFR 65 Result Comment: Non- GFR Calc LAB L501.1115 >60 mL/min Normal EST GFR - AA 78 Result Comment: GFR Calc LAB L501.1300 10-20 RATIO Normal BUN/CRE 19.2 LAB L501.1500 6.4-8.2 g/dL T Normal PROT 7.7 LAB L501.1800 3.2-5.0 g/dL Normal ALB 3.3 LAB L501.1950 2.2-4.2 g/dL High GLOB 4.4 LAB L501.2000 0.9-2.4 RATIO Low A/G 0.8 LAB L501.2200 8.5-10.1 mg/dL CA Normal 9.6 LAB L501.4100 15-37 U/L High AST 52 LAB L501.4305 45-117 U/L Normal ALK P 105 LAB L501.4405 16-61 U/L Normal ALT 45 LAB L501.4600 0.20-1.00 mg/dL T Normal BILI 0.50 LAB L501.5300 136-145 mmol/L NA Normal 140 LAB L501.5600 3.5-5.1 mmol/L K Normal 4.7 LAB L501.5900 98-107 mmol/L CL Normal 104 LAB L501.6100 21.0-32.0 mmol/L Normal CO2 26.0 LAB L501.6200 5-15 Normal GAP 10 Performed By: #### L500.4050 #### [facility] [address] [place], [address] VITAMIN D,25 HYDROXY Collected: 04/05/2018 Status: F Source: [place] 2:33 PM [facility] REPOSITORY TYPE CODE TESTS RESULT OUT OF REFERENCE UNITS RANGE LAB L506.1000 29.95-100.01 ng/mL Low Vitamin D 15.9 25-OH Result Comment: Vitamin D 25(OH) Status Range Deficiency <20 ng/mL (50nmol/L) Insuffciency 20 - 30 ng/mL (50 - 75 nmol/L) Sufficiency 30 - 100 ng/mL (75 - 250 nmol/L) Toxicity >100 ng/mL (>250 nmol/L) Performed By: #### L506.1000 #### [facility] [address] [place], [address] MISCELLANEOUS LAB Collected: 04/05/2018 Status: F Source: [place] PROCEDURE 2:33 PM [facility] REPOSITORY Order Comment: Comments: B6 #[id number] PLASMA FROZEN PFL Test(s) Ordered: B6 #4655 PLASMA FROZEN PFL TYPE CODE TESTS RESULT OUT OF RANGE REFERENCE UNITS LAB L801.1541 Normal [facility] LAB TEST Result Comment: TEST RESULT UNITS REF INTERVAL VITAMIN B6, PLASMA 6.1 ug/L 5.3 - 46.7 DISCLAIMER: This test was developed and its performance characteristics determined by [facility]. It has not been cleared or approved by the U.S. Food and Drug Administration. TESTING PERFORMED AT [facility]. ORIGINAL REPORT ON FILE IN LAB CONTAINS ADDITIONAL TEST SITE INFORMATION. Performed By: #### L801.1541 #### [facility] [address] [place], [address] AMMONIA Collected: 03/15/2018 Status: F Source: [place] 5:12 AM CLINIC OTHER CAMPUS REPOSITORY TYPE CODE TESTS RESULT OUT OF REFERENCE UNITS RANGE LAB NH3 9-30 umol/L High Ammonia 33 Performed By: #### NH3 #### [facility] [address] [place] [address] XR CHEST 2V FRONTAL/LAT Observed: 03/12/2018 Status: F Source: [place] 9:[address] [facility] OTHER CAMPUS REPOSITORY * * *Final Report* * * DATE OF EXAM: Mar 12 2018 9:07AM AJX [id number] - XR CHEST 2V FRONTAL/LAT / PROCEDURE REASON: +PPD * * * * Physician Interpretation * * * * EXAMINATION: CHEST RADIOGRAPH (2 VIEW FRONTAL and LATERAL) 3 images. CLINICAL HISTORY: Positive PPD. MQ: [id number]_5 Comparison: None RESULT: Lines, tubes, and devices: None. Lungs and pleura: Shallow inspiration. Trachea is in the midline. No focal infiltrate, pneumothorax, pulmonary congestion or large effusion. No significant interstitial fibrosis.. Cardiomediastinal silhouette: Normal cardiomediastinal silhouette. Other: Bony thorax unremarkable. IMPRESSION: No acute radiographic abnormality. Steel Turner: NIDHI Transcribe Date/Time: Mar 12 2018 12:48P Dictated by : GURU ALAS MD This examination was interpreted and the report reviewed and electronically signed by: GURU ALAS MD on Mar 12 2018 12:48PM EST [id number] AMMONIA Collected: 03/09/2018 Status: F Source: [place] 5:02 AM [facility] OTHER CAMPUS REPOSITORY TYPE CODE TESTS RESULT OUT OF REFERENCE UNITS RANGE LAB NH3 9-30 umol/L High Ammonia 53 Performed By: #### NH3 #### [facility] [address] [place] [address] PROTIME Collected: 03/07/2018 Status: F Source: [place] 5:15 AM [facility] OTHER CAMPUS REPOSITORY TYPE CODE TESTS RESULT OUT OF RANGE REFERENCE UNITS LAB PSEC 11.8-14.1 sec High PT Sec 16.9 LAB INR 0.6-1.1 High PT INR 1.4 Result Comment: The PT/INR can be used to monitor the therapeutic effect of oral anticoagulants, such as warfarin. The recommended therapeutic range is an INR of 2.0 to 3.0 for most applications, inclu ding treatment and prevention of venous thrombosis, treatment of pulmonary embolism, prevention of strokes/TIA in patients with atrial fibrillation, prevention and treatment of thrombosis in patients with a lupus anticoagulant and prevention of systemic embolization in patients with heart valve disorders. There are certain conditions where clinicians may decide to use a lower or higher therapeutic range eg. 1.5 to 1.9 for secondary prevention of idiopathic venous thromboembolism and an INR 2.5 to 3.5 for older generation mechanical heart valves. Evan, et al. Chest 2004: 126:204S to 233S. Performed By: #### PT, GBCHEM, GBTSH, HIV12, MG, UA, GBHCV, HAVIGM, HBCAB, HBSAG, A1CN, CBCDIF, RPR #### [facility] [address] [place] [address] [facility] CHEM PROF Collected: 03/07/2018 Status: F Source: [place] 5:15 AM CLINIC OTHER CAMPUS REPOSITORY TYPE CODE TESTS RESULT OUT OF REFERENCE UNITS RANGE LAB GLU 74-106 mg/dL Glucose High 155 LAB BUN 9-20 mg/dL BUN High 23 LAB NA 137-145 mmol/L Sodium High 146 LAB K 3.5-5.1 mmol/L Potassium 4.4 LAB CL 98-107 mmol/L Chloride High 111 LAB CO2 22-30 mmol/L CO2 26 LAB AGAP 0-15 Anion Gap 13 LAB AMYL 30-110 U/L Amylase 61 LAB AST 17-59 U/L AST High 76 LAB ALT 21-72 U/L ALT 44 LAB ALKP 38-125 U/L Alkaline Phos 99 LAB GGT 15-73 U/L GGT High 240 LAB TBIL 0.2-1.3 mg/dL Total Bilirubin 0.4 LAB CA 8.4-10.2 mg/dL Calcium 8.9 LAB PHOS 2.5-4.5 mg/dL Phosphorus 3.3 LAB URIC 3.5-8.5 mg/dL Uric Acid 7.5 LAB CHOL 100-199 mg/dL Cholesterol 118 LAB TRIG 35-150 mg/dL Triglyceride High 248 LAB TP 6.2-8.2 g/dL Total Protein 7.3 LAB ALB 3.5-5.0 g/dL Albumin 3.6 LAB LDH 318-618 U/L LDH 494 LAB CRET 0.66-1.25 mg/dL Creatinine 1.20 LAB GFR >60 mL/min/1.7 3 2 eGFR non Am >60 LAB GFRB >60 mL/min/1.7 3 2 eGFR Amer >60 Result Comment: MDRD calculation used for eGFR results. Performed By: #### PT, GBCHEM, GBTSH, HIV12, MG, UA, GBHCV, HAVIGM, HBCAB, HBSAG, A1CN, CBCDIF, RPR #### [facility] [address] [place], [place] [id number] [facility] TSH Collected: 03/07/2018 Status: F Source: [place] 5:[address] [facility] OTHER [facility] REPOSITORY TYPE CODE TESTS RESULT OUT OF REFERENCE UNITS RANGE LAB GBTSH 0.465-4.680 uU/mL [facility] TSH 3.050 Performed By: #### PT, GBCHEM, GBTSH, HIV12, MG, UA, GBHCV, HAVIGM, HBCAB, HBSAG, A1CN, CBCDIF, RPR #### [facility] [address] [place] [id number] HIV 1,2 ANTIBODY EIA Collected: 03/07/2018 Status: F Source: [place] 5:15 AM [facility] REPOSITORY TYPE CODE TESTS RESULT OUT OF REFERENCE UNITS RANGE LAB HIV12 Nonreactive HIV 1,2 Nonreactive Antibody EIA Performed By: #### PT, GBCHEM, GBTSH, HIV12, MG, UA, GBHCV, HAVIGM, HBCAB, HBSAG, A1CN, CBCDIF, RPR #### [facility] [address] [place] [id number] MAGNESIUM Collected: 03/07/2018 Status: F Source: [place] 5:15 AM [facility] REPOSITORY TYPE CODE TESTS RESULT OUT OF REFERENCE UNITS RANGE LAB MG 1.3-2.3 mg/dL Magnesium 1.5 Performed By: #### PT, GBCHEM, GBTSH, HIV12, MG, UA, GBHCV, HAVIGM, HBCAB, HBSAG, A1CN, CBCDIF, RPR #### [facility] [address] [place] [address] URINALYSIS Collected: 03/07/2018 Status: F Source: [place] 5:[address] [facility] OTHER [facility] REPOSITORY TYPE CODE TESTS RESULT OUT OF RANGE REFERENCE UNITS LAB UCOL Yellow Urine Color Yellow LAB [facility] Clear Urine Clarity Clear LAB USPG 1.005-1.030 Urine Spec [place] 1.018 LAB [facility] 5-7 Urine pH 6.0 LAB UPROT Negative mg/dl Protein Abnormal 100 Alert LAB UGLUC Negative mg/dl Glucose Abnormal 50 Alert LAB UKET Negative mg/dl Ketone Negative LAB UBIL Negative Bilirubin Negative LAB UHGB Negative Hemoglobin/Blood Negative LAB UNITR Negative Nitrites Negative LAB UUROB 0.0-1.0 mg/dl High Urobilinogen 2.0 LAB ULKEST Negative Leukest Negative LAB UWBC 0-5 /HPF WBC 0-5 LAB URBC 0-3 /HPF RBC 0-3 LAB UCAST 0 /LPF Cast SEE NOTES Result Comment: 3-5 Hyaline Cast LAB [facility] Urine Ronaldo Comment Few Result Comment: MUCOUS Performed By: #### PT, GBCHEM, GBTSH, HIV12, MG, UA, GBHCV, HAVIGM, HBCAB, HBSAG, A1CN, CBCDIF, RPR #### [facility] [address] [place] [id number] [facility] AB Collected: 03/07/2018 Status: F Source: [place] 5:15 AM CLINIC OTHER CAMPUS REPOSITORY TYPE CODE TESTS RESULT OUT OF REFERENCE UNITS RANGE LAB GBHCV Nonreactive [facility] Hep Nonreactive C Ab Performed By: #### PT, GBCHEM, GBTSH, HIV12, MG, UA, GBHCV, HAVIGM, HBCAB, HBSAG, A1CN, CBCDIF, RPR #### [facility] [address] [place] [id number] HEP A IGM ANTIBODY Collected: 03/07/2018 Status: F Source: [place] 5:15 AM [facility] OTHER CAMPUS REPOSITORY TYPE CODE TESTS RESULT OUT OF REFERENCE UNITS RANGE LAB HAVIGM Nonreactive Hep A IgM Nonreactive Antibody Performed By: #### PT, GBCHEM, GBTSH, HIV12, MG, UA, GBHCV, HAVIGM, HBCAB, HBSAG, A1CN, CBCDIF, RPR #### [facility] [address] [place] [id number] HEP B CORE TOTAL AB Collected: 03/07/2018 Status: F Source: [place] 5:[address] [facility] OTHER CAMPUS REPOSITORY TYPE CODE TESTS RESULT OUT OF REFERENCE UNITS RANGE LAB HBCAB Nonreactive Nonreactive Hep B Core Total Ab Performed By: #### PT, GBCHEM, GBTSH, HIV12, MG, UA, GBHCV, HAVIGM, HBCAB, HBSAG, A1CN, CBCDIF, RPR #### [facility] [address] [place] [address] HEP B SURF ANTIGEN Collected: 03/07/2018 Status: F Source: [place] 5:15 AM [facility]IC OTHER CAMPUS REPOSITORY TYPE CODE TESTS RESULT OUT OF REFERENCE UNITS RANGE LAB HBSAG Nonreactive Hep B Nonreactive Surf Antigen Performed By: #### PT, GBCHEM, GBTSH, HIV12, MG, UA, GBHCV, HAVIGM, HBCAB, HBSAG, A1CN, CBCDIF, RPR #### [facility] [address] [place], [place] [id number] A1C WITH EST AVE Collected: 03/07/2018 Status: F Source: [facility] 5:15 AM CLINIC OTHER CAMPUS REPOSITORY TYPE CODE TESTS RESULT OUT OF REFERENCE UNITS RANGE LAB A1C 4.7-6.4 % High Hemoglobin A1c 8.2 Result Comment: Interpretation: Standardized A1c Good control or normal: 4-6% (60-120 mg/dL avg) Moderate control: 6.1-8.0% (120-180 mg/dL avg) Poor control: >8.0% (180 mg/dL avg) With 4% as a baseline, each 1% increase = 30 mg/dL increase in average glucose. Taken from DCCT (Diabetes Control Complications Trial) LAB EAG mg/dl Est. Average Glucose 189 Result Comment: Estimated Average Glucose is a calculated value from HgbA1C and is sales representative gas service of the average blood glucose level in the last 2-3 month period. Performed By: #### PT, GBCHEM, GBTSH, HIV12, MG, UA, GBHCV, HAVIGM, HBCAB, HBSAG, A1CN, CBCDIF, RPR #### [facility] [address] [place], [place] [id number] CBCDIF Collected: 03/07/2018 Status: F Source: [place] 5:[address] [facility] OTHER CAMPUS REPOSITORY TYPE CODE TESTS RESULT OUT OF REFERENCE UNITS RANGE LAB WBC 4.5-11.0 k/uL Low WBC 3.17 LAB RBC 4.50-5.90 m/uL Low RBC 3.53 LAB HGB 13.5-17.5 g/dL Low Hemoglobin 11.4 LAB HCT 41.0-53.0 % Low Hematocrit 34.2 LAB MCV 80-100 fL MCV 96.9 LAB MCH 26-34 pG MCH 32.3 LAB MCHC 31-37 g/dL MCHC 33.3 LAB RDWCV 11.5-14.5 % RDW-CV 13.1 LAB PLTCT 150-450 k/uL Low Platelet Count 46 LAB NRBC 0-0.9 /100 WBC NRBCs 0 LAB ANEUT 40-70 % Neut% 62.8 LAB ALYMP 22-44 % Lymph% 28.4 LAB AMONO 4-12 % Hendry% 6.6 LAB ABASO 0-1 % Baso% 0.6 LAB AEOS 0-4 % Eosin% 1.6 LAB IG 0-1.9 % Immature Gran 0.00 LAB AANEUT 1.8-7.7 k/uL Abs Neut 1.99 LAB AALYMP 1.0-4.0 k/uL Low Abs Lymph 0.90 LAB AAMONO 0-0.8 k/uL Abs Hendry 0.21 LAB AABASO 0-0.2 k/uL Abs Baso 0.02 LAB AAEOS 0-0.4 k/uL Abs Eosin 0.05 LAB RBCMOR Red Cell Morph SEE NOTES Result Comment: Normocytic/Normochromic RBCs LAB DIFCOM Diff Comments SEE NOTES Result Comment: Peripheral slide reviewed & agrees with automated results Platelet morphology appears normal Peripheral smear was observed and platelets are confirmed decreased. Performed By: #### PT, GBCHEM, GBTSH, HIV12, MG, UA, GBHCV, HAVIGM, HBCAB, HBSAG, A1CN, CBCDIF, RPR #### [facility] [address] [place], [place] [id number] RPR Collected: 03/07/2018 Status: F Source: [place] 5:15 AM CLINIC OTHER CAMPUS REPOSITORY TYPE CODE TESTS RESULT OUT OF REFERENCE UNITS RANGE LAB RPR Nonreactive Nonreactive Normal RPR Performed By: #### PT, GBCHEM, GBTSH, HIV12, MG, UA, GBHCV, HAVIGM, HBCAB, HBSAG, A1CN, CBCDIF, RPR #### [facility] [address] [place] [address] VITAMIN B12 Collected: 02/17/2018 Status: F Source: [place] 3:52 PM [facility] REPOSITORY TYPE CODE TESTS RESULT OUT OF RANGE REFERENCE UNITS LAB L503.0105 211-911 pg/mL Normal Vitamin B12 619 Performed By: #### L503.0105, L501.1400, L501.9985 #### [facility] [address] [place], [address] URIC ACID Collected: 02/17/2018 Status: F Source: [place] 3:52 PM [facility] REPOSITORY Order Comment: Comments: B6 #[id number] PLASMA FROZEN PFL TYPE CODE TESTS RESULT OUT OF RANGE REFERENCE UNITS LAB L501.1400 3.5-7.2 mg/dL Normal URIC 5.6 Result Comment: The drugs N-Acetylcysteine and Metamizole may falsely depress this assay. Performed By: #### L503.0105, L501.1400, L501.9985 #### [facility] [address] [place], [place], [address] HEMOGLOBIN A1C Collected: 02/17/2018 Status: F Source: [place] 3:52 PM [facility] REPOSITORY TYPE CODE TESTS RESULT OUT OF RANGE REFERENCE UNITS LAB L501.9985 4.2-6.3 % High HGB A1C 7.2 Performed By: #### L503.0105, L501.1400, L501.9985 #### [facility] [address] [place], [address] COMPREHENSIVE METABOLIC Collected: 02/17/2018 Status: F Source: [facility] 3:52 PM [facility] REPOSITORY Order Comment: Comments: B6 #[id number] PLASMA FROZEN PFL TYPE CODE TESTS RESULT OUT OF RANGE REFERENCE UNITS LAB L501.0100 74-106 mg/dL High GLU 149 Result Comment: Fasting Glucose result greater than or equal to 126 mg/dL suggests DIABETES MELLITUS per A.D.A. criteria. Please note revised GLUCOSE reference range effective 2017. LAB L501.1000 7-18 mg/dL Normal BUN 11 LAB L501.1100 0.70-1.30 mg/dL Normal CREAT,SERUM 1.27 Result Comment: The validity of the calculated GFR AND GFRAA in patients over 70 years has not been determined. Clinical correlation is essential. LAB L501.1110 >60 mL/min Normal EST GFR 64 Result Comment: Non- GFR Calc LAB L501.1115 >60 mL/min Normal EST GFR - AA 77 Result Comment: GFR Calc LAB L501.1300 10-20 RATIO Low BUN/CRE 8.7 LAB L501.1500 6.4-8.2 g/dL Normal T PROT 7.4 LAB L501.1800 3.2-5.0 g/dL Low ALB 3.0 LAB L501.1950 2.2-4.2 g/dL High GLOB 4.4 LAB L501.2000 0.9-2.4 RATIO Low A/G 0.7 LAB L501.2200 8.5-10.1 mg/dL Low CA 8.3 LAB L501.4100 15-37 U/L High AST 50 LAB L501.4305 45-117 U/L Normal ALK P 98 LAB L501.4405 16-61 U/L Normal ALT 31 LAB L501.4600 0.20-1.00 mg/dL Normal T BILI 0.50 LAB L501.5300 136-145 mmol/L Normal NA 138 LAB L501.5600 3.5-5.1 mmol/L Normal K 4.0 LAB L501.5900 98-107 mmol/L Normal CL 105 LAB L501.6100 21.0-32.0 mmol/L Normal CO2 26.0 LAB L501.6200 5-15 Normal GAP 7 Performed By: #### L500.4050 #### [facility] [address] [place], [address] CBC W/DIFF, AUTOMATED Collected: 02/17/2018 Status: F Source: [place] 3:52 PM [facility] REPOSITORY TYPE CODE TESTS RESULT OUT OF RANGE REFERENCE UNITS LAB L100.1000 4.4-11.0 K/mm3 Low WBC 3.8 LAB L100.1200 4.6-6.2 M/mm3 Low RBC 3.49 LAB L100.1300 13.0-16.5 g/dl Low HGB 11.6 LAB L100.1400 40-54 % Low HCT 34.9 LAB L100.1500 80-94 fL High MCV 100.0 LAB L100.1600 27.0-32.0 pg High MCH 33.2 LAB L100.1700 32-36 g/gl Normal MCHC 33.2 LAB L100.1810 11.6-14.6 % Normal RDW CV 12.5 LAB L100.1820 35.1-43.9 fl High RDW SD 44.2 LAB L100.1900 150-450 K/mm3 Low PLT 63 LAB L100.2000 6.2-12.0 fl Normal MPV 11.0 LAB L100.2100 47-70 % Normal NEUT% 68.0 LAB L100.2200 19-41 % Normal LY% 21.6 LAB L100.2300 0-10 % Normal MONO% 8.9 LAB L100.2400 0-5 % Normal EO% 1.0 LAB L100.2500 0-1 % Normal BASO% 0.5 LAB L100.2550 0.0-0.9 % Normal IM GRAN % 0.000 Result Comment: IG% - Immature Granulocytes (promyelocytes, myelocytes and metamyelocytes) > 1% indicates that a LEFT SHIFT is Present. LAB L100.2620 2.0-7.7 X10 3/uL Normal Absolute Neut 2.6 LAB L100.2720 0.83-4.51 X10 3/ul Normal Absolute Lymph 0.83 Performed By: #### L100.0100 #### [facility] [address] [place], [place], [id number] MISCELLANEOUS LAB Collected: 02/17/2018 Status: F Source: [place] PROCEDURE 3:52 PM [facility] REPOSITORY Order Comment: Comments: B6 #[id number] PLASMA FROZEN PFL Test(s) Ordered: B6 #4655 PLASMA FROZEN PFL TYPE CODE TESTS RESULT OUT OF RANGE REFERENCE UNITS LAB L801.1541 Normal [facility] LAB TEST Result Comment: TEST RESULT LIMITS Vitamin B6, Plasma Vitamin B6 7.0 ug/L 5.3 - 46.7 Disclaimer: This test was developed and its performance characteristics determined by [facility]. It has not been cleared or approved by the Food and Drug Administration. TESTING PERFORMED AT [facility]. ORIGINAL REPORT ON FILE IN LAB CONTAINS ADDITIONAL TEST SITE INFORMATION. Performed By: #### L801.1541 #### [facility] [address], [address] CBC W/DIFF, AUTOMATED Collected: 02/03/2018 Status: F Source: [place] 4:39 PM [facility] REPOSITORY TYPE CODE TESTS RESULT OUT OF RANGE REFERENCE UNITS LAB L100.1000 4.4-11.0 K/mm3 Normal WBC 4.4 LAB L100.1200 4.6-6.2 M/mm3 Low RBC 2.87 LAB L100.1300 13.0-16.5 g/dl Low HGB 9.6 LAB L100.1400 40-54 % Low HCT 29.2 LAB L100.1500 80-94 fL High MCV 101.7 LAB L100.1600 27.0-32.0 pg High MCH 33.4 LAB L100.1700 32-36 g/gl Normal MCHC 32.9 LAB L100.1810 11.6-14.6 % Normal RDW CV 13.1 LAB L100.1820 35.1-43.9 fl High RDW SD 47.0 LAB L100.1900 150-450 K/mm3 Low PLT 55 LAB L100.2000 6.2-12.0 fl Normal MPV 10.7 LAB L100.2100 47-70 % Normal NEUT% 67.8 LAB L100.2200 19-41 % Normal LY% 22.0 LAB L100.2300 0-10 % Normal MONO% 8.4 LAB L100.2400 0-5 % Normal EO% 0.9 LAB L100.2500 0-1 % Normal BASO% 0.7 LAB L100.2550 0.0-0.9 % Normal IM GRAN % 0.200 Result Comment: IG% - Immature Granulocytes (promyelocytes, myelocytes and metamyelocytes) > 1% indicates that a LEFT SHIFT is Present. LAB L100.2620 2.0-7.7 X10 3/uL Normal Absolute Neut 3.0 LAB L100.2720 0.83-4.51 X10 3/ul Normal Absolute Lymph 0.97 Performed By: #### L100.0100, L500.4050, L506.0250 #### [facility] [place], [address] #### L3100.0390, L3100.0528, L3100.0634 #### [facility] (refer to report for specific site) refer to report for address and phone number COMPREHENSIVE METABOLIC Collected: 02/03/2018 Status: F Source: [place] DIETRICH 4:39 PM [facility] REPOSITORY Order Comment: ADD ON IBC AND FERRITIN Is Patient Taking Vitamins or Folic Acid Supplements? N TYPE CODE TESTS RESULT OUT OF RANGE REFERENCE UNITS LAB L501.0100 74-106 mg/dL High GLU 126 Result Comment: Fasting Glucose result greater than or equal to 126 mg/dL suggests DIABETES MELLITUS per A.D.A. criteria. Please note revised GLUCOSE reference range effective 2017. LAB L501.1000 7-18 mg/dL High BUN 22 LAB L501.1100 0.70-1.30 mg/dL High CREAT,SERUM 1.83 Result Comment: The validity of the calculated GFR AND GFRAA in patients over 70 years has not been determined. Clinical correlation is essential. LAB L501.1110 >60 mL/min Low EST GFR 42 Result Comment: Non- GFR Calc LAB L501.1115 >60 mL/min Low EST GFR - AA 51 Result Comment: GFR Calc LAB L501.1300 10-20 RATIO Normal BUN/CRE 12.0 LAB L501.1500 6.4-8.2 g/dL T Normal PROT 7.0 LAB L501.1800 3.2-5.0 g/dL Low ALB 2.9 LAB L501.1950 2.2-4.2 g/dL Normal GLOB 4.1 LAB L501.2000 0.9-2.4 RATIO Low A/G 0.7 LAB L501.2200 8.5-10.1 mg/dL Low CA 8.4 LAB L501.4100 15-37 U/L High AST 127 LAB L501.4305 45-117 U/L Normal ALK P 87 LAB L501.4405 16-61 U/L Normal ALT 44 LAB L501.4600 0.20-1.00 mg/dL High T BILI 1.30 LAB L501.5300 136-145 mmol/L NA Normal 137 LAB L501.5600 3.5-5.1 mmol/L K Normal 4.1 LAB L501.5900 98-107 mmol/L CL Normal 101 LAB L501.6100 21.0-32.0 mmol/L Normal CO2 28.0 LAB L501.6200 5-15 Normal GAP 8 Performed By: #### L100.0100, L500.4050, L506.0250 #### [facility] [address] [address] [facility] [place], [place], [id number] #### L3100.0390, L3100.0528, L3100.0625 #### [facility] (refer to report for specific site) refer to report for address and phone number FOLATES, (FOLIC ACID) Collected: 02/03/2018 Status: F Source: [place] 4:39 PM [facility] REPOSITORY Order Comment: ADD ON IBC AND FERRITIN Is Patient Taking Vitamins or Folic Acid Supplements? N TYPE CODE TESTS RESULT OUT OF RANGE REFERENCE UNITS LAB L506.0250 3.1-55.4 ng/mL Normal FOLATES 4.70 Performed By: #### L100.0100, L500.4050, L506.0250 #### [facility] [address] [facility]. [place], [place], [id number] #### L3100.0390, L3100.0528, L3100.0625 #### [facility] (refer to report for specific site) refer to report for address and phone number HEPATITIS B SURFACE Collected: 02/03/2018 Status: F Source: [place] AG 4:39 PM [facility] REPOSITORY TYPE CODE TESTS RESULT OUT OF RANGE REFERENCE UNITS LAB L3100.0400 Negative Normal HB Negative SURF AG Result Comment: Performed at: [facility] [id number] Metal Hardener: El Neri PhD, Phone: [phone] Performed at: - [facility] [id number] Metal Hardener: García Lozoya MD, Phone: [phone] Performed By: #### L100.0100, L500.4050, L506.0250 #### [facility] [address] [facility] [place], [address] #### L3100.0390, L3100.0528, L3100.0625 #### [facility] (refer to report for specific site) refer to report for address and phone number HEP B SURFACE Collected: 02/03/2018 Status: F Source: [place] ANTIBODIES 4:39 PM [facility] REPOSITORY TYPE CODE TESTS RESULT OUT OF RANGE REFERENCE UNITS LAB L3100.0528 . Normal Hep B Non Reactive Silvia AB Result Comment: Non Reactive: Inconsistent with immunity, less than 10 mIU/mL Reactive: Consistent with immunity, greater than 9.9 mIU/mL Performed By: #### L100.0100, L500.4050, L506.0250 #### [facility] [address] [place] [address]. [place], [address] #### L3100.0390, L3100.0528, L3100.0625 #### [facility] (refer to report for specific site) refer to report for address and phone number HEPATITIS C ANTIBODIES Collected: 02/03/2018 Status: F Source: [place] 4:39 PM [facility] REPOSITORY TYPE CODE TESTS RESULT OUT OF RANGE REFERENCE UNITS LAB L3100.0650 0.0-0.9 s/co ratio Normal HEP C AB <0.1 Result Comment: Negative: < 0.8 Indeterminate: 0.8 - 0.9 Positive: > 0.9 The CDC recommends that a positive HCV antibody result be followed up with a HCV Nucleic Acid Amplification test (162605). Performed By: #### L100.0100, L500.4050, L506.0250 #### [facility] [facility] [place], [address] #### L3100.0390, L3100.0528, L3100.0625 #### [facility] (refer to report for specific site) refer to report for address and phone number AMMONIA Collected: 02/03/2018 Status: F Source: [place] 4:39 PM [facility] REPOSITORY TYPE CODE TESTS RESULT OUT OF REFERENCE UNITS RANGE LAB L503.5510 11-32 umol/L High AMMONIA 44.0 Performed By: #### L503.5510 #### [facility] [address] [place], [address] IRON+IRON BINDING Collected: 02/03/2018 Status: F Source: [place] CAPACITY 4:39 PM [facility] REPOSITORY Order Comment: ADD ON IBC AND FERRITIN Is Patient Taking Vitamins or Folic Acid Supplements? N TYPE CODE TESTS RESULT OUT OF RANGE REFERENCE UNITS LAB L503.6075 250-450 ug/dL Low TIBC 249 LAB L503.6150 65-175 ug/dL IRON Normal 65 LAB L503.6250 15.0-55.0 % IRON Normal SATURATION 26.1 Performed By: #### L503.6030, L503.6550 #### [facility] [address] [place], [address] FERRITIN Collected: 02/03/2018 Status: F Source: [place] 4:39 PM [facility] REPOSITORY Order Comment: ADD ON IBC AND FERRITIN Is Patient Taking Vitamins or Folic Acid Supplements? N TYPE CODE TESTS RESULT OUT OF RANGE REFERENCE UNITS LAB L503.6550 26-388 ng/mL Normal FERRITIN 356 Performed By: #### L503.6030, L503.6550 #### [facility] [address] [facility] [place], [address] VITAMIN B1, THIAMINE Collected: 02/03/2018 Status: F Source: [place] 4:39 PM [facility] REPOSITORY TYPE CODE TESTS RESULT OUT OF RANGE REFERENCE UNITS LAB L3300.8000 66.5-200.0 nmol/L Low VIT B1 39.9 Result Comment: This test was developed and its performance characteristics determined by [facility]. It has not been cleared or approved by the Food and Drug Administration. Performed By: #### L3300.8000 #### [facility] (refer to report for specific site) refer to report for address and phone number 12 LEAD ELECTROCARDIOGRAM Observed: 01/03/2018 Status: F Source: [place] 3:07 PM [facility] REPOSITORY [facility] Cardiovascular Services [address] [place] [address] 12 Lead EKG 12/30/17 1831 MR#: [id number] Acct: [id number] Name: LAZARO VILLAFANA Rep #: [id number] : 1965 52 From: Tung Marinelli MD Attending Dr: Status: DEP ER Ordering Dr: Huseyin Corral MD Date: 12/30/17 Location: ED Sex: M C Admitted: Test Reason : SOB Blood Pressure : / mmHG Vent. Rate : 102 BPM Atrial Rate : 102 BPM P-R Int : 158 ms QRS Dur : 098 ms QT Int : 346 ms P-R-T Axes : 053 034 030 degrees QTc Int : 450 ms Sinus tachycardia Septal infarct , age undetermined Abnormal ECG Confirmed by JENNIFER TANNER, TUNG ([id number]), acquisitions editor LA GREGORY ([id number]) on 01/03/2018 3:06:59 PM Referred By: Joana Mosley Confirmed By:TUNG MARINELLI MD 01/03/18 1507 Date Tung Marinelli MD CC: Joana MERRITT; Huseyin Corral MD; ASHLEE DELUNA Signed EMERGENCY DEPARTMENT Observed: 12/30/2017 Status: F Source: [place] SUMMARY 9:52 PM [facility] REPOSITORY [facility] Medical Records Department [address] [place] [address] Emergency Department Summary 12/30/17 2144 MR#: [id number] Acct: [id number] Name: LAZARO VILLAFANA Rep #: [id number] : 1965 52 From: Huseyin Corral MD PCP: ASHLEE DELUNA Status: REG ER - ER Visit Summary Date of Service: 12/30/17 Chief Complaint: Hemoptysis, shortness of breath, dyspnea on exertion, COPD History of Present Illness: The patient is a 52 M who presents because of hemoptysis for the past 5 days. He has history of COPD. He reports cough and shortness of breath with dyspnea on exertion for the past week. He was a smoker of 2 packs per day. He presently is smoking 1/2-1 pack per day. He denies weight loss but does admit to night sweats. Review of prior records indicates he had a positive PPD with no follow-up or treatment. He does admit to drinking daily. He denies ocular, visual or auditory symptoms. He denies chest pain. He denies nausea, vomiting or diarrhea. He does report increased abdominal girth with weight gain. He denies orthopnea or PND. He denies black or maroon stool. He denies change in the color of his urine, dysuria, frequency, urgency or hematuria. Blood work was obtained 2 weeks ago and his CBC was unremarkable. Electrolyte panel including ALT was normal. A1c was 6.8. Lipid panel was normal chest pain symptoms No demonstrated pulmonary embolism or arterial dissection.mal. Triglycerides, HDL and LDL were unremarkable. TSH was elevated at 7.65. Physical Examination: Patient appears older than reported age. Head is atraumatic normocephalic. Pupils are equal round reactive. Extraocular muscles are intact. TMs are pearly white with landmarks noted. Nares patent with no drainage. Posterior pharynx without erythema or exudate. Uvula is midline. There is no dysphonia or dysphasia. Trachea is midline. There is no stridor with auscultation of the neck. Lungs reveal increased expiratory phase with wheezing throughout decreased air movement. Heart is regular without murmur, gallop or rub. Abdomen is distended tympanitic questionable fluid wave. Minimal edema of the feet. Neuro exam is nonfocal. Test Results: CTA of the chest was obtained and revealed: IMPRESSION: Hepatic cirrhosis Abdominal ascites No demonstrated pulmonary embolism or arterial dissection. Emergency Department Course and Treatment: With history of positive PPD on treated CT a was obtained to evaluate for pulmonary embolus, pneumonia, and/or cavitary lesions and since he complains of shortness of breath with night sweats and hemoptysis. He was treated with DuoNeb albuterol. He was reassessed and is wheeze free. Treatment Plan: Prescription for albuterol and prednisone. He was referred to Dr. Rod Villegas Disposition: Discharged to home Impression: 1. Exacerbation of COPD with bronchospasm 2. Hemoptysis 3. Alcoholic liver disease, cirrhosis 4. Ascites secondary #3 This note was generated with ReadWaveation software. It may contain incorrect words, spelling, and punctuation that were not noted in review of the chart prior to signing ED Disposition - Plan for ED Patient: Disposition: Home or Assisted Living Chief Complaint: GI Bleed Instructions: ED COPD Flare, ED Ascites, ED Cirrhosis Liver Prescriptions: Albuterol Inhaler [Ventolin Hfa] 2 puff INHALATION Q4H PRN PRN #1 inhaler PRN Reason: Wheezing Azithromycin [Zithromax Z-Frank] 250 mg PO UD #1 box Prednisone [Deltasone] 40 mg PO DAILY #10 tab Referrals: Ashlee Mckeon [Primary Care Provider] - 3-5 Days Rod Villegas DO [STAFF PHYSICIAN] - 1 Week What to do if you have Problems For any increased pain, shortness of breath, bleeding, nausea or vomiting, chest pain, or any unexpected problems, contact your Primary Care Provider. Call [facility] ([phone]) or report to the closest Emergency Room. Call 911 if necessary. 12/30/172151 <Electronically signed by Huseyin Corral MD> Date Huseyin Corral MD Cosigner Signature (If Indicated): Date CC: Rod Villegas D.O.; ASHLEE DELUNA CTA CHEST W/WO Observed: 12/30/2017 Status: F Source: [place] CONTRAST 6:07 PM [facility] REPOSITORY [facility] Imaging Services [address] [place] [address] CTA Chest W/WO Contrast MR#: [id number] Acct: [id number] Name: LAZARO VILLAFANA Rep #: [id number] : 1965 M 52 From: Abimael Cortez MD PCP: ASHLEE DELUNA Status: REG ER Study: CTA Chest W/WO Contrast Date of Exam: 12/30/17 Exam# [id number] Ordering Dr: Huseyin Corral MD STUDY: CTA CHEST REASON FOR EXAM: Male, 52 years old. HEMOPTYSIS X 5 DAYS RADIATION DOSAGE (If Supplied By Facility): CTDIvol = ( 13.8 ) mGy, DLP = ( 684.54 ) mGycm TECHNIQUE: The examination was performed with the intravenous administration of 100 ml of Isovue 370 contrast material. Post-processing of the angiographic images was performed, with multiplanar reformation and 3D reconstruction. Individualized dose optimization techniques were used for this CT. COMPARISON: None. FINDINGS: Normal enhancement of the main pulmonary artery and right and left pulmonary arteries. Normal enhancement of the bilateral peripheral pulmonary arteries. There is no demonstrated pulmonary embolism. Normal thoracic aorta and visualized great vessels. There is no demonstrated aortic dissection. Normal heart and pericardium. Normal mediastinum. Normal hilar regions. Normal visualized trachea and bronchi. The lungs are well expanded. Normal pulmonary parenchyma. Normal pleura. Normal chest wall structures. There are degenerative changes of thoracic spine. The liver is nodular in appearance. A focal mass is not identified. The finding is consistent for hepatic cirrhosis. Abdominal ascites CT/CTA Chest W/WO Contrast IMPRESSION: Hepatic cirrhosis Abdominal ascites No demonstrated pulmonary embolism or arterial dissection. Electronically Signed: Abimael Cortez MD at 20:20 EDT , Service support , CC: Huseyin Corral MD; ASHLEE VALADEZ [facility] Steel Turner: Signed DISCHARGE SUMMARY Observed: 07/28/2017 Status: F Source: [place] 4:45 PM [facility] REPOSITORY [facility] Medical Records Department [facility] [place] [address] Discharge Summary 07/28/17 1342 MR#: [id number] Acct: [id number] Name: LAZARO VILLAFANA Rep #: [id number] : 1965 52 From: Timoteo CASAREZ PCP: Care Physician, No Primary Status: DIS IN Y Location: [address] <Timoteo Cabrera - Last Filed: 07/28/17 13:42> Discharge Date and Diagnosis Date of Admission: 07/26/17 Date of Discharge: 07/28/17 - Primary Discharge Diagnosis Acute alcohol withdrawal Suspected mild blood loss anemia with melanotic stools pancytopenia CKDII HTN - Secondary Discharge Diagnosis Chronic Problems CKD (chronic kidney disease) stage 2, GFR 60-89 ml/min (Chronic) Pancytopenia (Chronic) CRF (chronic renal failure) (Chronic) COPD (chronic obstructive pulmonary disease) (Chronic) HLD (hyperlipidemia) (Chronic) Nicotine dependence (Chronic) Diabetes mellitus, type II (Chronic) Hyperuricemia (Chronic) History of positive PPD, untreated (Chronic) Gout (Chronic) EtOH dependence (Chronic) Hospital Course and Treatment Imaging Results: US/Abdomen Limited IMPRESSION: Hepatosplenomegaly. Small amount of ascites. Consults: Greer - GI Operations: None Procedures: None Summary of Care Provided: Physical exam on day of discharge: Completed as patient left AMA before he can be examined. Hospital Course: The patient is a 52 year old M with a hx of alcoholism, htn, and CKD II who presented to the ER with acute alcohol intoxication seeking help for detox. He was admitted to the hospital on the alcohol withdrawal protocol. His tox screen also revealed cannabinoids. Glucose was elevated and his A1C was prediabetic at 5.8. He had panyctopenia with a hgb of 12 and platelets of 60 and did report some melanotic stools prior to presentation. An ultrasound of his abdomen revealed hepatosplenomegaly and a small amount of ascites. Dr. Butterfield was consulted who planned to do an EGD however the patient left AGAINST MEDICAL ADVICE early in the morning on 07.28.2017. [] Discharge Diet: - - no recommendations made as pt left AMA Discharge Activity: - - no recommendations made as pt left AMA Home Medications: Medications to take at Discharge Albuterol Inhaler [Ventolin Hfa (SP)] 1 - 2 puff INHALATION Q4H PRN PRN 02/27/17 Mometasone/Formoterol [Dulera 200 Mcg/5 Mcg Inhaler] 2 puff IH BID PRN PRN 07/26/17 Primary Care Physician: Care Physician,No Primary [Primary Care Provider] - Disposition: Against Medical Advice Minutes spent on discharge:: 35 Patient Condition:: Guarded Medical Necessity - Tobacco Use Smoking Status: Current every day smoker Meaningful Use Info Meaningful Use Diagnoses (Choose all that apply): None applicable <Tariq Pickens - Last Filed: 07/28/17 16:45> Discharge Date and Diagnosis - Secondary Discharge Diagnosis Chronic Problems CKD (chronic kidney disease) stage 2, GFR 60-89 ml/min (Chronic) Pancytopenia (Chronic) CRF (chronic renal failure) (Chronic) COPD (chronic obstructive pulmonary disease) (Chronic) HLD (hyperlipidemia) (Chronic) Nicotine dependence (Chronic) Diabetes mellitus, type II (Chronic) Hyperuricemia (Chronic) History of positive PPD, untreated (Chronic) Gout (Chronic) EtOH dependence (Chronic) Hospital Course and Treatment Summary of Care Provided: In brief, patient is admitted for alcohol withdrawal with chronic alcohol use and dependence. He also has pancytopenia secondary to alcoholic liver disease with WBC count 4.1.2 platelet count 60,000. Patient also complained of back stool before admission 60 of melena. Discussed with GI Dr. Butterfield on 07/27/2017. He suggested to call tomorrow after CBC. There was plan for CBC ratoprinter today and if there is drop in hematocrit, possible EGD. But patient signed AMA and left ratoprinter before blood draw. Abdominal ultrasound shows hepatosplenomegaly and small ascites. Patient was on Protonix 40 mg IV every 12 hourly I have discussed my assessment with Timoteo CASAREZ and orders have been reviewed. [] Code Visit Inpatient E AND M: [id number] Disch Hosp 07/28/17 1352 <Electronically signed by Timoteo CASAREZ> Date Timoteo CASAREZ 07/28/17 1645<Electronically signed by Tariq Pickens MD> Cosigner Signature (if applicable): Date Tariq Pickens MD CC: No Primary Care Physician; HERMELINDO Cabrera; Tariq Pickens MD Signed BEDSIDE GLUCOSE Collected: 07/27/2017 Status: F Source: [place] 4:32 PM [facility] REPOSITORY TYPE CODE TESTS RESULT OUT OF REFERENCE UNITS RANGE LAB L501.080 70-110 mg/dL High BEDSIDE GLU 134 Result Comment: MANAGEMENT OF PATIENT CARE PER NURSING PROTOCOL Performed By: #### L501.080 #### [facility] Laboratory Point of Care [address] [place] [address] BEDSIDE GLUCOSE Collected: 07/27/2017 Status: F Source: [place] 11:46 AM [facility] REPOSITORY TYPE CODE TESTS RESULT OUT OF REFERENCE UNITS RANGE LAB L501.080 70-110 mg/dL High BEDSIDE GLU 212 Result Comment: MANAGEMENT OF PATIENT CARE PER NURSING PROTOCOL Performed By: #### L501.080 #### [facility] Laboratory Point of Care [address] [place] [address] ABDOMEN LIMITED Observed: 07/27/2017 Status: F Source: [place] 8:50 AM [facility] REPOSITORY [facility] Imaging Services [address] [place] [address] Abdomen Limited MR#: [id number] Acct: [id number] Name: LAZARO VILLAFANA Rep #: [id number] : 1965 M 52 From: Raad Mcdonough MD PCP: Care Physician, No Primary Status: ADM IN Study: Abdomen Limited Date of Exam: 07/27/17 Exam# [id number] Ordering Dr: Tariq Pickens MD STUDY: ABDOMINAL ULTRASOUND - RIGHT UPPER QUADRANT REASON FOR VISIT: Male, 52 years old. History of hepatosplenomegaly. TECHNIQUE: Ultrasound evaluation of the right upper quadrant was performed with real-time and static lundberg-scale imaging. TECHNICAL QUALITY: Adequate. COMPARISON: Comparison is made with prior study dated February 28, 2017. FINDINGS: Liver: The liver is enlarged and measures 20.4 cm. There is increased echogenicity consistent with fatty infiltration. The bile ducts are within normal limits. There is hepatic color flow. The direction of portal flow is hepatopetal. There is no demonstrated mass lesion. Gallbladder: Normal distended gallbladder. The gallbladder wall measures 3.4 mm. There is a negative sonographic Delgado's sign. There is no pericholecystic fluid. There are no gallstones. Common Bile Duct (C.B.D.): The common bile duct measures 3.7 mm. Pancreas: There is nonvisualization of the pancreas due to overlying bowel gas. Right Kidney: Normal size of the right kidney. The right kidney measures 9.7 cm x 4.2 cm x 5.5 cm. Normal renal cortex. The right cortex measures 1.7 cm. There is no demonstrated renal mass or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
== END ==
PROVIDERS: Family Provider Family Medicine; PCP Family Medicine; Visit Provider Family Medicine
DX: E11.22 Type 2 diabetes mellitus with diabetic chronic kidney disease (principal); N18.3 Chronic kidney disease, stage 3 (moderate); K74.60 Unspecified cirrhosis of liver; E51.9 Thiamine deficiency, unspecified
CPT/HCPCS: 36415; 80053; 82140; 82306; 85025

== ENCOUNTER 2018-04-14 11:32 | Emergency (ER) | payer BC, SELFPAY ==
[2018-04-14] VITALS (7 sets, daily range): BP systolic 69–240; BP diastolic 48–114; PULSE 106–134; RESP 16–29; TEMP 36.6–36.8; O2SAT 96–100; BMI 29.4
[2018-04-14] MEDS: 0.9% Normal Saline 1,000 ML 1000 ML IV (11:58)
--- NOTE | 2018-04-14 11:58 | NURSING ---
CALLED [facility] ABOUT TRANSFER.
[2018-04-14 12:00] LABS: Absolute Lymphocyte Count 3.43 X10^3/ul (0.83-4.51); Absolute Neutrophil Count 8.4 X10^3/uL (2.0-7.7); Basophil# 0.04 X10^3/uL; Basophil% 0.3 % (0-1); Differential Indicated SCAN CRITERIA MET; Eosinophil# 0.08 X10^3/uL; Eosinophils% 0.6 % (0-5); Hematocrit 21.6 % (40-54); Hemoglobin 7.1 g/dl (13.0-16.5); International Normalized Ratio 1.7; Lymphocyte # 3.43 X10^3/ul (4.0); Lymphocyte % 25.9 % (19-41); Mean Corp Hgb Conc 32.9 g/gl (32-36); Mean Corpuscular Volume 91.1 fL (80-94); Mean Platelet Vol. 11.1 fl (6.2-12.0); Monocyte# 1.25 X10^3/uL; Monocyte% 9.4 % (0-10); Neutrophil # 8.43 X10^3/uL (2.7-7.7); Neutrophil % 63.6 % (47-70); POSITIVE COUNT NO; POSITIVE DIFFERENTIAL NO; POSITIVE MORPHOLOGY YES; Platelet Count 87 K/mm3 (150-450); Prothrombin Time (Protime)PT. 19.9 SECONDS (11.7-14.9); RBC Distribution Width CV 13.6 % (11.6-14.6); Red Blood Count 2.37 M/mm3 (4.6-6.2); White Blood Count 13.3 K/mm3 (4.4-11.0)
[2018-04-14 12:01] LABS: Partial Thromboplast Time 36.1 Seconds (24.1-36.2)
[2018-04-14] MEDS: Etomidate 20 MG/10 ML Vial IV (12:03)
[2018-04-14] MEDS: Rocuronium Bromide 50 MG/5 ML Vial IV (12:04)
[2018-04-14] MEDS: Ketamine HCl 500 MG/5 ML Vial 100 MG IV (12:05)
[2018-04-14 12:10] LABS: Allen Test POS; Base Excess -8 mmol/L (-2 to +2); Bicarbonate 17.7 mmol/L (22-26); Blood Gas Specimen Type ART; O2 Delivery Device NRB Mask; PO2 66 mmHG (75-100); SITE R Radial; SO2 92 % (95-99); Time Given 1211; Total Carbon Dioxide 19 mmol/L; pCO2 31.1 mmHg (35-45); pH 7.36 (7.35-7.45)
[2018-04-14 12:13] LABS: ALB/GLOB Ratio 0.7 RATIO (0.9-2.4); AST(SGOT) 27 U/L (15-37); Alanine Aminotransfer ALT/SGPT 27 U/L (16-61); Albumin, Serum 2.2 g/dL (3.2-5.0); Alkaline Phosphatase 59 U/L (45-117); Anion Gap 16 (5-15); BUN 78 mg/dL (7-18); BUN/Creat Ratio 26.8 RATIO (10-20); Calcium,Total 7.3 mg/dL (8.5-10.1); Chloride 98 mmol/L (98-107); Creatinine, Serum 2.91 mg/dL (0.70-1.30); EST Glomerular Filtration Rate 24 mL/min (>60); Est Glom Filt Rate - Afr Amer 30 mL/min (>60); Estimated Creatinine Clearance 31.36 ml/min; Globulin 3.2 g/dL (2.2-4.2); Glucose 611 mg/dL (74-106); Lipase 427 U/L (73-393); Potassium 4.2 mmol/L (3.5-5.1); Protein, Total 5.4 g/dL (6.4-8.2); Sodium Level 135 mmol/L (136-145)
--- NOTE | 2018-04-14 12:15 | RAD_ITS ---
STUDY: X-RAY CHEST REASON FOR EXAM: Male, 52 years old. Blood in stool and emesis since last night. Tube placement. TECHNIQUE: Portable chest AP COMPARISON: X-ray chest 02/27/2017, CT chest 12/30/2017. FINDINGS: Endotracheal tube tip approximately 3.6 cm cephalad of the bethany. Nasogastric tube traverses the esophagus through the esophagogastric junction. The tip lies within the gastric fundus just beyond the esophagogastric junction. Advancement of the nasogastric tube is recommended by several centimeters. The lungs are bilaterally clear. Symmetrically and normally inflated. No cardiomegaly. Normal mediastinal silhouette. Within the central chest projecting over the mediastinum, there is an air-filled cavity, just below the level of the bethany, measuring approximately 6.6 x 8.3 cm. This appears to slightly elevate the right mainstem bronchus. This suggests the presence of mediastinal gas. In the setting of emesis, this may indicate esophageal perforation. No acute osseous or upper abdominal process. RAD/Chest 1 View (Portable) IMPRESSION: Mediastinal gas, concerning for esophageal perforation. CT chest is recommended. With contrast if possible. N.B. : The above information has been verbally conveyed by Chandu Mai MD to Huseyin Corral MD, AA, on 04/14/2018 15:29:54 (ET). Electronically Signed: Chandu Mai MD at 15:26 EST Tel , Service support ,
--- NOTE | 2018-04-14 12:22 | ED.RN ---
UNSUCCESSFUL ATTEMPT BY DR SINHA TO PLACE THE BLAKMOOR TUBE . PT COULDN'T TOLERATE AND DR SINHA GOT BIT. PT THEN INTUBATED WITH 7.5 ET TUBE 25 AT THE TEETH WITH GOOD COLOR EXCHANGE. PT HAS THE BLAKMOOR TUBER PLACED WITH BLOOD BEING SUCTIONED OUT. TRAUMA BLOOD IS INFUSING VIA PRESSURE BAG.
[2018-04-14 12:29] LABS: Lactic Acid 6.2 mmol/L (0.4-2.0)
--- NOTE | 2018-04-14 12:36 | NURSING ---
1224 ETA IS 9 MIN
[2018-04-14] MEDS: Rocuronium Bromide 50 MG/5 ML Vial 120 MG IV (12:44)
--- NOTE | 2018-04-14 12:55 | ED.VISSUMM ---
- ER Visit Summary Date of Service: 04/14/18 Chief Complaint: Vomiting bright red blood and lightheadedness History of Present Illness: The patient is a 52 M who has history of diabetes and history of drinking. According to is not had as much to drink past month. He noted bright red blood in emesis last night. He has maroon to black stool this morning. He presents because of lightheadedness and not feeling well. He does complain of shortness of breath. Denies chest pain. He states he has been bruising easily the past year. He denies fever, chills night sweats. Per old records he has a positive PPD and may have history of TB. Uncertain whether he is been treated. According the he may have started treatment. She does not know if he completed or not. He does complain of abdominal pain the epigastric area. He has no other complaints. Physical Examination: Systolic blood pressure 62. He is tachycardic tachypnic appears pale and jaundiced possibly. HEENT exam is remarkable for pale conjunctival, pale lips and tongue. Trachea midline. Lungs reveal end inspiratory rales. Heart is rapid and regular. Abdomen is soft slightly tympanitic mild tenderness in the epigastrium. He has maroon black stool. Bright red blood noted in the mouth and emesis. Neuro exam is nonfocal. Test Results: EKG reveals a sinus tachycardia no acute ischemic changes. Hemoglobin 7.1. White count is 13.3. Platelet count is normal. Glucose is 611 with an anion gap. Lactate 6.2. Troponin is elevated 0.38. Albumin is 2.2. ABG reveals AA gradient and metabolic acidosis. Emergency Department Course and Treatment: Patient was moved from [facility] to room 1. Attempt to [address] [place] tube was unsuccessful with patient awake. Because he remained hypotensive after 2 L of fluid he was prepped for oral tracheal intubation. He received 20 mg of etomidate and 50 mg rocuronium. This was to facilitate placement of [place] tube for presumed variceal bleed since he is vomiting bright red blood in his history of cirrhosis. Patient was oral tracheal intubated with a 7.5 endotracheal tube. Blood was noted above the cords and coming from the esophagus. There was appropriate color change on capnometer. Good breath sounds noted bilaterally. [place] tube was placed by ok. Maroon gastric contents was aspirated. The gastric balloon was inflated 200 cc and pressure was applied. Patient was treated with 2 units of packed RBCs for hemorrhagic shock. He will receive 2 units of FFP as well. He was given Protonix bolus and placed on a Protonix drip. An octreotide bolus and placed on octreotide drip for presumed variceal bleed. For sedation he was placed on a ketamine drip because of hemodynamic instability. He will also received 1 g of Rocephin. Treatment Plan: Spoke with patient prior to intubation what need to be done as well as . They understood the criticalness of his condition. They requested [facility] for tertiary care. Spoke with manager business management who accepted patient. [facility] was contacted for critical care air transport. Disposition: Direct admit ICU [facility]. Impression: 1. Hemorrhagic shock secondary to GI bleed, presumed varices 2. Hyperglycemia 3. History of cirrhosis 4. History of positive PPD 5. Alcohol induced coagulopathy 6. Critical care time 37 minutes This note was generated with [employer] dictation software. It may contain incorrect words, spelling, and punctuation that were not noted in review of the chart prior to signing ED Disposition - Plan for ED Patient: Chief Complaint: GI Bleed Referrals: Rene Mckee MD [Primary Care Provider] -
--- NOTE | 2018-04-14 12:58 | CM.ED ---
SOCIAL WORK NOTE: THIS WORKER REFERRED TO FOLLOW FOR SUPPORT OF PT'S , SUSHILA. PT BEING TRANSFERRED TO [facility]. [facility] HERE TO TRANSPORT PT. EMOTIONAL SUPPORT PROVIDED TO . DENIES ANY NEEDS. ENCOURAGED TO CALL CHILDREN TO UPDATE ON PT'S STATUS AND TRANSFER. STATES WILL DO SO ONCE SHE LEAVES THE HOSPITAL. HANNA MARIO, GAS ROLLER OPERATOR, TIP PRINTER.
--- NOTE | 2018-04-14 13:01 | ED.DCSUM_ITS ---
- ER Visit Summary Date of Service: 04/14/18 Chief Complaint: Vomiting bright red blood and lightheadedness History of Present Illness: The patient is a 52 M who has history of diabetes and history of drinking. According to is not had as much to drink past month. He noted bright red blood in emesis last night. He has maroon to black stool this morning. He presents because of lightheadedness and not feeling well. He does complain of shortness of breath. Denies chest pain. He states he has been bruising easily the past year. He denies fever, chills night sweats. Per old records he has a positive PPD and may have history of TB. Uncertain whether he is been treated. According the he may have started treatment. She does not know if he completed or not. He does complain of abdominal pain the epigastric area. He has no other complaints. Physical Examination: Systolic blood pressure 62. He is tachycardic tachypnic appears pale and jaundiced possibly. HEENT exam is remarkable for pale conjunctival, pale lips and tongue. Trachea midline. Lungs reveal end inspiratory rales. Heart is rapid and regular. Abdomen is soft slightly tympanitic mild tenderness in the epigastrium. He has maroon black stool. Bright red blood noted in the mouth and emesis. Neuro exam is nonfocal. Test Results: EKG reveals a sinus tachycardia no acute ischemic changes. Hemoglobin 7.1. White count is 13.3. Platelet count is normal. Glucose is 611 with an anion gap. Lactate 6.2. Troponin is elevated 0.38. Albumin is 2.2. ABG reveals AA gradient and metabolic acidosis. Emergency Department Course and Treatment: Patient was moved from [facility] to room 1. Attempt to Place [place] tube was unsuccessful with patient awake. Because he remained hypotensive after 2 L of fluid he was prepped for oral tracheal intubation. He received 20 mg of etomidate and 50 mg rocuronium. This was to facilitate placement of [place] tube for presumed variceal bleed since he is vomiting bright red blood in his history of cirrhosis. Patient was oral tracheal intubated with a 7.5 endotracheal tube. Blood was noted above the cords and coming from the esophagus. There was appropriate color change on capnometer. Good breath sounds noted bilaterally. [place] tube was placed by az. Maroon gastric contents was aspirated. The gastric balloon was inflated 200 cc and pressure was applied. Patient was treated with 2 units of packed RBCs for hemorrhagic shock. He will receive 2 units of FFP as well. He was given Protonix bolus and placed on a Protonix drip. An octreotide bolus and placed on octreotide drip for presumed variceal bleed. For sedation he was placed on a ketamine drip because of hemodynamic instability. He will also received 1 g of Rocephin. Treatment Plan: Spoke with patient prior to intubation what need to be done as well as . They understood the criticalness of his condition. They requested [facility] for tertiary care. Spoke with glass curvature gauger who accepted patient. [facility] was contacted for critical care air transport. Disposition: Direct admit ICU [facility]. Impression: 1. Hemorrhagic shock secondary to GI bleed, presumed varices 2. Hyperglycemia 3. History of cirrhosis 4. History of positive PPD 5. Alcohol induced coagulopathy 6. Critical care time 37 minutes This note was generated with [employer] dictation software. It may contain incorrect words, spelling, and punctuation that were not noted in review of the chart prior to signing ED Disposition - Plan for ED Patient: Chief Complaint: GI Bleed Referrals: Rene Mckee MD [Primary Care Provider] -
[2018-04-14 15:49] LABS: Reflex Lactate? Y
[2018-04-17 03:05] LABS: QNTFERON TB Mitogen Value > 10.00 IU/mL (.); QNTFERON TB Nil Value 0.02 IU/mL (.); QNTFERON TB1+ Ag Value 0.02 IU/mL (.); QNTFERON TB2+ Ag Value 0.02 IU/mL (.)
[2018-04-17 13:02] LABS: QNTIFERON TB Positive Criteria Negative (Negative)
== END 2018-04-14 13:17 | disposition short-term general hospital (02) ==
PROVIDERS: Emergency Provider Emergency Medicine; Family Provider Family Medicine; PCP Family Medicine
DX: K92.0 Hematemesis (principal); R57.8 Other shock; D68.8 Other specified coagulation defects; E11.65 Type 2 diabetes mellitus with hyperglycemia; R06.02 Shortness of breath; K74.60 Unspecified cirrhosis of liver; Z72.0 Tobacco use; R76.11 Nonspecific reaction to tuberculin skin test without active tuberculosis
CPT/HCPCS: 31500; 36430; 36600; 51702; 71045; 80053; 82803; 83605; 83690; 84484; 85025; 85610; 85730; 86480; 86850; 86900; 86920; 93005; 94002; 94770; 96365; 96367; 96375; 96376; 99251; 99285; J7030; J7050; P9016; P9017; P9040; A4216; G0463; J2354; J3490

== ENCOUNTER → 2018-06-16 14:25 | Outpatient (CLI) | payer BC, SELFPAY ==
[2018-04-14 11:33] VITALS: BMI 29.4
[2018-06-16 15:53] LABS: Absolute Lymphocyte Count 1.15 X10^3/ul (0.83-4.51); Absolute Neutrophil Count 2.7 X10^3/uL (2.0-7.7); Basophil# 0.03 X10^3/uL; Basophil% 0.6 % (0-1); Eosinophil# 0.28 X10^3/uL; Hematocrit 33.2 % (40-54); Hemoglobin 10.7 g/dl (13.0-16.5); Lymphocyte # 1.15 X10^3/ul (4.0); Lymphocyte % 24.8 % (19-41); Mean Corp Hgb Conc 32.2 g/gl (32-36); Mean Corpuscular Hgb 29.1 pg (27.0-32.0); Mean Corpuscular Volume 90.2 fL (80-94); Mean Platelet Vol. 8.7 fl (6.2-12.0); Monocyte# 0.45 X10^3/uL; Monocyte% 9.7 % (0-10); Neutrophil # 2.73 X10^3/uL (2.7-7.7); Neutrophil % 58.9 % (47-70); POSITIVE COUNT NO; POSITIVE DIFFERENTIAL NO; POSITIVE MORPHOLOGY NO; Platelet Count 193 K/mm3 (150-450); RBC Distribution Width CV 15.9 % (11.6-14.6); RBC Distribution Width SD 51.4 fl (35.1-43.9); Red Blood Count 3.68 M/mm3 (4.6-6.2); White Blood Count 4.6 K/mm3 (4.4-11.0)
[2018-06-16 16:25] LABS: ALB/GLOB Ratio 0.5 RATIO (0.9-2.4); AST(SGOT) 87 U/L (15-37); Alanine Aminotransfer ALT/SGPT 69 U/L (16-61); Alkaline Phosphatase 188 U/L (45-117); Anion Gap 9 (5-15); BUN 14 mg/dL (7-18); BUN/Creat Ratio 13.1 RATIO (10-20); Calcium,Total 9.2 mg/dL (8.5-10.1); Chloride 109 mmol/L (98-107); Creatinine, Serum 1.07 mg/dL (0.70-1.30); EST Glomerular Filtration Rate 77 mL/min (>60); Est Glom Filt Rate - Afr Amer 94 mL/min (>60); Globulin 5.7 g/dL (2.2-4.2); Glucose 157 mg/dL (74-106); Potassium 4.6 mmol/L (3.5-5.1); Protein, Total 8.7 g/dL (6.4-8.2); Sodium Level 142 mmol/L (136-145)
[2018-06-16 16:37] LABS: Hemoglobin A1c 4.9 % (4.2-6.3)
== END ==
PROVIDERS: Family Provider Family Medicine; PCP Family Medicine; Referring Provider Family Medicine; Visit Provider Family Medicine
DX: E11.22 Type 2 diabetes mellitus with diabetic chronic kidney disease (principal); N18.3 Chronic kidney disease, stage 3 (moderate); K74.60 Unspecified cirrhosis of liver
CPT/HCPCS: 36415; 80053; 83036; 85025

== ENCOUNTER → 2018-07-06 14:36 | Outpatient (CLI) | payer BC, SELFPAY ==
[2018-04-14 11:33] VITALS: BMI 29.4
[2018-07-06 16:52] LABS: International Normalized Ratio 1.3; Prothrombin Time (Protime)PT. 15.9 SECONDS (11.7-14.9)
[2018-07-06 16:53] LABS: Partial Thromboplast Time 37.7 Seconds (24.1-36.2)
[2018-07-08 11:24] LABS: AFP, Tumor Marker 5.3 ng/mL (0.0-8.3)
== END ==
PROVIDERS: Family Provider Family Medicine; PCP Family Medicine; Referring Provider Internal Medicine Gastroenterology; Visit Provider Internal Medicine Gastroenterology
DX: K74.60 Unspecified cirrhosis of liver (principal)
CPT/HCPCS: 36415; 82105; 85610; 85730

== ENCOUNTER 2018-07-20 15:00 | Outpatient (RCR) | payer BC, SELFPAY ==
[2018-04-14 11:33] VITALS: BMI 29.4
--- NOTE | 2018-06-29 16:00 | HP.PTEVAL ---
Patient's Visit Information MARÍA HANLEY is a 53 year old M referred to Physical Therapy by Rene Mckee MD with a diagnosis of LUMBAR RADICULOPATHY,FACET ARTHROPATHY,PHYSICAL DECONDITIONING. Date of Evaluation: 06/29/18 Physical Therapist: Kt Dow PT, Cert MDT, OCS - Visit Plan Frequency: 2x /Week Duration: 4 Weeks Plan: INTIATED INTERVENTONS WITH GRADED LE STRENGTHENING,DLS,POSTURAL EX'S ,CONDITIONING - Subjective Findings: This 53 y/o male presents to physical therapy with lumbar radiculopathy ,facet arthropy,physical decondioning. Patient has had lumbar pain and weakness in legs for about 2 months. Patient was hospitalized for 2months for esophagus bleeding Mar 2018 ,May.Patient was sedated and intubated for 3weeks.Patient has pain located lumbar and right leg. Aggravting factors to included walking,standing,bending,lifting,some better with sitting. Alleviating factors resting. Patient has parathesia/tingling feet. Patient coughing/sneezing. Patient has difficulty sleeping. Patient also c/o weakness in legs. Patient staes h/o ETOH abuse caused cirrhosis. Patient symptosm affects QOL and function ADL'S. SOCIAL: . VOCATION: disablity - Pain Bilateral Back Pain Intensity (Out of 10): 8 Pain Intensity Range: 10 - Objective POSTURE:mild foward posture. GAIT: mild foward posture reciprocal pattern slow wiliam. NEURO: c/o parathesia/tingling ,light touch intact ,reflexes L3-4,L4-5,L5-S1 1/3. LUMBAR ROM: flexion mod loss pain ,extension mod loss pain,side glides mod loss,. MMT: quads/hams 3+/5 right,hip flexion 3+/5,left 4/5 ,except hip 4-/5. FLEXABLITY: hams mod tight - Special Tests L/S Slump test left side: Negative L/S Slump test right side: Negative L/S Left Straight Leg Raise: Negative L/S Right Straight Leg Raise: Positive Lumbar Standing: Flexion - Mechanical Response: No effect Lumbar Standing: Flexion - Symptoms During Testing: Increases Lumbar Standing: Flexion - Symptoms After Testing: Worse Lumbar Standing: Extension - Mechanical Response: No effect Lumbar Standing: Extension - Symptoms During Testing: Increases Lumbar Standing: Extension - Symptoms After Testing: Worse Lumbar Standing: Right Side Glides - Mechanical Response: No effect Lumbar Standing: Right Side Christopher - Symptoms During Testing: Increases Lumbar Standing: Right Side Christopher - Symptoms After Testing: No worse Lumbar Standing: Left Side Christopher - Mechanical Response: No effect Lumbar Standing: Left Side Christopher - Symptoms During Testing: Increases Lumbar Standing: Left Side Christopher - Symptoms After Testing: No worse - Goals Goal 1:: Independant with HEP Goal Time Frame: 4-6 Weeks Goal 2:: Patient to decrease pain by 40 % or greater to improve function. Goal Time Frame: 4-6 Weeks Goal 3:: Patient to increase lumbar ROM for function of recovery Goal Time Frame: 4-6 Weeks Goal 4:: Patient to improve strength right leg to 4-/5 to improve gait. Goal Time Frame: 4-6 Weeks Goal 5:: Patient to improve back NELLY score by 5 points. Goal Time Frame: 4-6 Weeks - Rehabilitation Potential Physical Therapy Diagnosis: This patient has lumbar pain with radiculopathty and weskness along with patient had extensive hospitalized caused patient to be decondition ,poor lumbar ROM and function. Rehabilitation Potential: Fair - Anticipated Interventions Patient/Client Instruction: Educate patient on: Condition, Plan of Care For the Purpose of:: To decrease pain, To improve muscle performance and motor function, To improve ability to perform ADL's, To increase tolerance to activity/condition/position, To improve performance and independence with ADL's, To decrease level of supervision to perform tasks, To improve ability of physical actions for home/community/work/leisure, To increase flexibility/ROM, To improve endurance, To assume or resume ADL's, To improve ability to perform tasks related to life management Therapeutic Exercise to Include: Strength training, Body mechanics, Postural training, Flexibilty training, Dynamic Lumbar Stabilization For the Purpose of:: To decrease pain, To increase ROM, To improve muscle performance and motor function, To improve ability to perform ADL's, To improve performance and independence with ADL's, To improve ability of physical actions for home/community/work/leisure, To improve health of tissue, To decrease soft tissue restriction, To improve endurance, To improve tolerance to ADL's TENS: Yes IF ES: Yes Thermo therapy (hot pack): Yes Ultrasound (thermal/non thermal): Yes For the Purpose of:: To decrease pain, To improve nutrient delivery to tissue, To increase oxygenation perfusion, To improve health of tissue, To decrease soft tissue restriction Thank you for the opportunity to evaluate your patient. For Medicare and Medicare HMO plans, please review the plan of care and approve it. It will need to be FAXED BACK to us at [phone] for Medicare purposes. For Medicare only, by signing this I certify the plan of care. Please let me know if there are questions or concerns regarding this plan of care. Physician Signature: Date:
--- NOTE | 2018-12-23 15:37 | HP.PT.NRP ---
HP - Discharge Summary (1) - Patient Information MARÍA TIFFANI HANLEY was seen in my office for initial evaluation on 06/29/18. The following Plan of Care was established for this patient: Initial Frequency: 2x /Week Initial Duration: 4 Weeks - Anticipated Interventions Patient/Client Instruction: Educate patient on: Condition, Plan of Care For the Purpose of:: To decrease pain, To improve muscle performance and motor function, To improve ability to perform ADL's, To increase tolerance to activity/condition/position, To improve performance and independence with ADL's, To decrease level of supervision to perform tasks, To improve ability of physical actions for home/community/work/leisure, To increase flexibility/ROM, To improve endurance, To assume or resume ADL's, To improve ability to perform tasks related to life management Therapeutic Exercise to Include: Strength training, Body mechanics, Postural training, Flexibilty training, Dynamic Lumbar Stabilization For the Purpose of:: To decrease pain, To increase ROM, To improve muscle performance and motor function, To improve ability to perform ADL's, To improve performance and independence with ADL's, To improve ability of physical actions for home/community/work/leisure, To improve health of tissue, To decrease soft tissue restriction, To improve endurance, To improve tolerance to ADL's TENS: Yes IF ES: Yes Thermo therapy (hot pack): Yes Ultrasound (thermal/non thermal): Yes For the Purpose of:: To decrease pain, To improve nutrient delivery to tissue, To increase oxygenation perfusion, To improve health of tissue, To decrease soft tissue restriction This patient was last seen in our office 06/29/18. Pertinent comments regarding their Physical therapy will appear below: Patient seen for PT for lumbar radiculopathy with PT focusing on DLS ,postural ex's,graded strengthening.Thus is d/c from PT. At this point I will be discontinuing this patient from physical therapy. I would be happy to see this patient again in the future if found appropriate by the physician. Thank you! Kt Dow, PT, Cert MDT, OCS
== END 2018-07-20 19:00 ==
LOC: PT 15:00
PROVIDERS: Family Provider Family Medicine; PCP Family Medicine; Referring Provider Family Medicine; Visit Provider Family Medicine
DX: M54.16 Radiculopathy, lumbar region (principal); M12.88 Other specific arthropathies, not elsewhere classified, other specified site; M53.81 Other specified dorsopathies, occipito-atlanto-axial region
CPT/HCPCS: 97014; 97035; 97110; 97162; G0283

== ENCOUNTER → 2018-09-15 16:28 | Outpatient (CLI) | payer BC, SELFPAY ==
[2018-04-14 11:33] VITALS: BMI 29.4
[2018-09-15 16:37] LABS: Bacteria 0 SEEN /hpf (None Seen); Mucous, Urine 0 SEEN /hpf (<or=2+); Red Blood Cells-Urine 0 SEEN /hpf (0-5); Squamous Epithelial Cells - UA 0 SEEN /hpf (0-5); White Blood Cells 0 SEEN /hpf (0-5)
[2018-09-15 17:28] LABS: Color, Urine Yellow (Yellow); Glucose, Dipstick 1000 mg/dl (Normal); Ketone-Dipstick Negative (Negative); Leukocyte Esterase-Dipstick Negative /ul (Negative); Nitrite-Dipstick Negative (Negative); Occult Blood-Urine 10 /ul (Negative); Protein-Dipstick Negative (Negative); Specific Gravity, Urine 1.005 (1.002-1.030); Urine Bilirubin Dipstick Negative (Negative); Urine Clarity Clear (Clear); Urine Urobilinogen Normal (Normal); Urine pH 6.5 (5.0 - 8.0)
== END ==
PROVIDERS: Family Provider Family Medicine; PCP Family Medicine; Referring Provider Family Medicine; Visit Provider Family Medicine
DX: R30.0 Dysuria (principal)
CPT/HCPCS: 81001; 87086; 87088

== ENCOUNTER → 2018-12-23 10:01 | Outpatient (CLI) | payer BC, SELFPAY ==
[2018-04-14 11:33] VITALS: BMI 29.4
--- NOTE | 2018-12-23 10:05 | ART_ITS ---
Version 2 Reason For Study: Decreased Pedal Pulses Procedure A bilateral lower extremity continuous wave Doppler with analog waveform analysis,segmental pressures,and ankle brachial indexes with exercise. Left Segmental Pressures Left brachial= 122mmHg. Left posterior tibial artery = 154mmHg. Left dorsalis pedis artery = 155mmHg. Left digit = 113 mmHg. The left dorsalis pedis waveforms are triphasic. The left posterior tibial artery waveforms are triphasic. Right Segmental Pressures Right brachial= 130mmHg. Right posterior tibial artery = 151mmHg. Right dorsalis pedis artery = 142mmHg. Right digit = 124 mmHg. The right dorsalis pedis waveforms are triphasic. The right posterior tibial artery waveforms are triphasic. Indices The right ankle brachial index by the posterior tibial artery is 1.16. The right ankle brachial index by the dorsalis pedis is 1.09. The right digital-brachial index is 0.95. The right ankle brachial index by the posterior tibial artery post exercise is 1.02. The left ankle brachial index by the posterior tibial artery is 1.18. The left ankle brachial index by the dorsalis pedis is 1.19. The left digital-brachial index is 0.87. The left dorsalis pedis index post exercise is 1.19. Interpretation Summary Triphasic Doppler waveforms are noted at ankle level bilaterally. Pulse-volume recordings appear normal at ankle and digital level bilaterally. Resting ankle-brachial indices are normal bilaterally. Digital-brachial indices are normal bilaterally. Following 5 minutes of exercise, ankle pressures are maintained on the left, and mildly diminished on the right. The resting component of this arterial study is normal, and does not reveal evidence of significant arterial occlusive disease bilaterally. The exercise study demonstrates findings that suggest mild arterial occlusive disease in the right lower extremity. The exercise component of the study is normal on the left. Ordering Physician: Rene Mckee Referring Physician: Rene Mckee Performed By: Roof, Michelle RDCS/RVT
--- NOTE | 2018-12-23 15:10 | RAD_ITS ---
STUDY: X-RAY - UNILATERAL RIBS ( RIGHT ) WITH CHEST REASON FOR EXAM: Male, 53 years old. Right-sided rib pain following cough. TECHNIQUE - RIBS: 4 view(s) of the ribs. TECHNIQUE - CHEST: Single PA view of the chest. COMPARISON: None. FINDINGS - RIBS: Nondisplaced right seventh and eighth rib fractures anterolaterally. FINDINGS - CHEST: The lungs are clear and expanded. There is no demonstrated pleural abnormality. Normal size heart. Normal mediastinum and owen. Normal visualized pulmonary arteries. There is atherosclerotic calcification of the aortic arch with tortuosity. Normal visualized thoracic spine. Normal visualized ribs, clavicles, and shoulders. There is no demonstrated abnormality of the visualized soft tissue structures of the upper abdomen. RAD/Ribs Uni Min 3V w/PA Chest IMPRESSION: RIBS: Nondisplaced right-sided seventh and eighth rib fractures anterolaterally. CHEST: Normal x-ray examination of the chest. Electronically Signed: Raad Mcdonough, at 15:27 EDT , Service support ,
== END ==
PROVIDERS: Family Provider Family Medicine; PCP Family Medicine; Referring Provider Family Medicine; Visit Provider Family Medicine
DX: R07.81 Pleurodynia (principal); R09.89 Other specified symptoms and signs involving the circulatory and respiratory systems
CPT/HCPCS: 71101; 93922

== ENCOUNTER → 2019-01-19 15:53 | Outpatient (CLI) | payer BC, SELFPAY ==
[2018-04-14 11:33] VITALS: BMI 29.4
[2019-01-19 17:26] LABS: Absolute Neutrophil Count 2.1 X10^3/uL (2.0-7.7); Basophil# 0.04 X10^3/uL; Lymphocyte % 31.4 % (19-41); Mean Corp Hgb Conc 34.7 g/dL (32-36); Mean Platelet Vol. 11.1 fl (6.2-12.0); NRBC Flagged by Analyzer 0 % (0-5); Neutrophil # 2.12 X10^3/uL (2.7-7.7); RBC Distribution Width SD 41.1 fl (35.1-43.9)
[2019-01-19 17:42] LABS: Hemoglobin A1c 10.2 % (4.2-6.3)
[2019-01-19 17:51] LABS: ALB/GLOB Ratio 0.9 RATIO (0.9-2.4); AST(SGOT) 22 U/L (15-37); Alanine Aminotransfer ALT/SGPT 26 U/L (16-61); Albumin, Serum 3.7 g/dL (3.2-5.0); Alkaline Phosphatase 126 U/L (45-117); Anion Gap 10 (5-15); BUN 33 mg/dL (7-18); BUN/Creat Ratio 18.6 RATIO (10-20); Calcium,Total 10.2 mg/dL (8.5-10.1); Chloride 100 mmol/L (98-107); Cholesterol 172 mg/dL (200); Creatinine, Serum 1.77 mg/dL (0.70-1.30); EST Glomerular Filtration Rate 43 mL/min (>60); Est Glom Filt Rate - Afr Amer 52 mL/min (>60); Globulin 4.3 g/dL (2.2-4.2); Glucose 659 mg/dL (74-106); High Density Lipoprotein 26 mg/dL; Potassium 4.8 mmol/L (3.5-5.1); Sodium Level 134 mmol/L (136-145); Triglycerides 272 mg/dL; Very Low Density Lipoprotein 54 mg/dL (5-40)
[2019-01-19 18:02] LABS: Vitamin B12 1186 pg/mL (211-911)
[2019-01-19 18:30] LABS: Microalbumin,Random Urine 28.5 mg/L (NO RANGE EST.); Microalbumin:Creatinine Ratio 97.6 mg/g CRE (<30 mg/g CRE)
[2019-01-19 21:54] LABS: Hematocrit 39.2 % (40-54); Hemoglobin 13.6 g/dL (13.0-16.5); Mean Corpuscular Volume 84.3 fL (80-94); Red Blood Count 4.65 M/mm3 (4.6-6.2)
[2019-01-19 21:55] LABS: Mean Corpuscular Hgb 29.2 pg (27.0-32.0); Platelet Count 83 K/mm3 (150-450); RBC Distribution Width CV 13.3 % (11.6-14.6)
[2019-01-19 21:56] LABS: Eosinophils% 4.7 % (0-5); Monocyte% 9.7 % (0-10)
[2019-01-19 21:57] LABS: Absolute Lymphocyte Count 1.26 X10^3/uL (0.83-4.51); Eosinophil# 0.19 X10^3/uL; Lymphocyte # 1.26 X10^3/ul (4.0); Monocyte# 0.39 X10^3/uL
== END ==
PROVIDERS: Family Provider Family Medicine; PCP Family Medicine; Visit Provider Family Medicine
DX: E11.65 Type 2 diabetes mellitus with hyperglycemia (principal); G62.9 Polyneuropathy, unspecified; K74.60 Unspecified cirrhosis of liver
CPT/HCPCS: 80053; 80061; 82043; 82570; 82607; 83036; 85025

== ENCOUNTER → 2019-03-03 06:51 | Outpatient (CLI) | payer BC, SELFPAY ==
[2018-04-14 11:33] VITALS: BMI 29.4
--- NOTE | 2019-03-03 09:28 | STRESSREP_ITS ---
Stress Test Report Date: Procedure: Pharmacologic stress nuclear imaging study Indications: Shortness of breath/dyspnea Consent: Per the patient Procedure: The patient underwent pharmacologic (Regadenoson) evaluation with a peak heart rate of 100 beats per minute (59 %predicted maximal heart rate) and a peak blood pressure of 138/78 mmHg. The baseline ECG demonstrated normal sinus rhythm. The peak pharmacologic ECG demonstrated no obvious ECG changes. There were no cardiac dysrhythmias pretest, during pharmacologic infusion, or recovery. There was no complaint of chest discomfort during pharmacologic infusion or recovery. The examination was discontinued secondary to completion of protocol. Impression: 1. Pharmacologic (Regadenoson) evaluation 2. Peak pharmacologic ECG with no obvious ECG changes. 3. There were no cardiac dysrhythmias pretest, during pharmacologic infusion, or recovery. 4. Nuclear images pending Myocardial perfusion imaging study: Technique: The patient was injected with 14.0 millicuries of technetium 99m Cardiolite and subsequently rest SPECT Cardiolite nuclear imaging was obtained in the horizo ntal long, vertical long, and short axis views. The patient underwent pharmacologic (Regadenoson) evaluation with a peak heart rate of 100 beats per minute (59 % percent predicted maximal heart rate) and a peak blood pressure of 138/78 mmHg. The patient was injected with 45.0 millicuries of technetium 99m Cardiolite and subsequently stress SPECT Cardiolite nuclear imaging was obtained in the horizontal long, vertical long, and short axis views. A gated Cardiolite study at peak stress was obtained. Interpretation: Rest and stress SPECT Cardiolite nuclear imaging status post realignment, norm alization, and attenuation correction demonstrate rest the appearance of a small area of subtle diminished tracer uptake in the mid towards distal anteroseptal segments which appears to improve/normalize following stress. There is end systolic thickening and brightening. The gated Cardiolite study demonstrates myocardial thickening and inward wall motion. The reported LVEF is 66 %. Impression: 1. Rest and stress SPECT cardio light nuclear imaging demonstrate myocardial perfusion changes at rest which appear to improve/normalize following stress appearing compatible shifting soft tissue attenuation/artifact with no myocardial perfusion changes considered diagnostic for associated stress-induced myocardial ischemia. 2. The gated Cardiolite study reports an LVEF of 66 %. This note was generated with [employer] software. It may contain incorrect words, spelling, and punctuation that were not noted in checking the note before signing.
== END ==
PROVIDERS: Family Provider Family Medicine; PCP Family Medicine; Referring Provider Internal Medicine Pulmonary Disease; Visit Provider Internal Medicine Pulmonary Disease
DX: R06.00 Dyspnea, unspecified (principal)
CPT/HCPCS: 78452; 93017; A9500; A4216; J2785

== ENCOUNTER 2019-05-08 16:42 | Emergency (ER) | payer BC, SELFPAY ==
[2018-04-14 11:33] VITALS: BMI 29.4
[2019-05-08] VITALS (7 sets, daily range): BP systolic 118–151; BP diastolic 71–95; PULSE 74–99; RESP 10–18; TEMP 36.6; O2SAT 98–100; BMI 32.1
--- NOTE | 2019-05-08 17:13 | RAD_ITS ---
STUDY: X-RAY CHEST REASON FOR EXAM: Male, 53 years old. INTERMITTENT CHEST PAIN, ABNORMAL EKG -- HX OF HTN, COPD, EMPHYSEMA, CIRRHOSIS TECHNIQUE: Single AP portable upright view of the chest. COMPARISON: Frontal chest x-ray included with right rib series December 23, 2018. FINDINGS: The lungs are clear and expanded. There is no demonstrated pleural abnormality. Normal size heart. Normal mediastinum and owen. Normal visualized pulmonary arteries. Normal visualized aortic arch and descending thoracic aorta. Normal visualized thoracic spine. There is a healing or healed posterolateral right sixth rib fracture. 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 There is no demonstrated abnormality of the visualized soft tissue structures of the upper abdomen. RAD/Chest 1 View (Portable) IMPRESSION: Healing/healed fracture of the posterolateral right sixth rib. No acute cardiopulmonary disease. Electronically Signed: Ethan Reich MD at 17:36 EST , Service support ,
--- NOTE | 2019-05-08 17:13 | EKG12_ITS ---
Test Reason : Blood Pressure : / mmHG Vent. Rate : 084 BPM Atrial Rate : 084 BPM P-R Int : 162 ms QRS Dur : 106 ms QT Int : 390 ms P-R-T Axes : 068 055 050 degrees QTc Int : 460 ms Normal sinus rhythm Low Voltage QRS (Limb Leads) Poor R- wave progrssion Confirmed by AMRIT TANNER, VALERI ([id number]), editor managing newspaper SHELLEY ALVARENGA ([id number]) on 05/10/2019 9:54:47 AM Referred By: DAMIAN Confirmed By:VALERI MARCUS MD
[2019-05-08 17:24] LABS: Absolute Lymphocyte Count 1.87 X10^3/uL (0.83-4.51); Absolute Neutrophil Count 2.8 X10^3/uL (2.0-7.7); Basophil# 0.05 X10^3/uL; Basophil% 0.9 % (0-1); Eosinophil# 0.18 X10^3/uL; Eosinophils% 3.3 % (0-5); Hematocrit 40.8 % (40-54); Hemoglobin 14.2 g/dL (13.0-16.5); Lymphocyte # 1.87 X10^3/ul (4.0); Lymphocyte % 34.6 % (19-41); Mean Corp Hgb Conc 34.8 g/dL (32-36); Mean Corpuscular Hgb 29.5 pg (27.0-32.0); Mean Corpuscular Volume 84.6 fL (80-94); Mean Platelet Vol. 10.3 fl (6.2-12.0); Monocyte% 9.2 % (0-10); NRBC Flagged by Analyzer 0 % (0-5); Neutrophil % 51.8 % (47-70); Platelet Count 106 K/mm3 (150-450); RBC Distribution Width CV 14.4 % (11.6-14.6); RBC Distribution Width SD 43.6 fl (35.1-43.9); Red Blood Count 4.82 M/mm3 (4.6-6.2); White Blood Count 5.4 K/mm3 (4.4-11.0)
[2019-05-08 17:41] LABS: Anion Gap 8 (5-15); BUN 29 mg/dL (7-18); BUN/Creat Ratio 13.3 RATIO (10-20); Calcium,Total 9.4 mg/dL (8.5-10.1); Chloride 114 mmol/L (98-107); Creatinine, Serum 2.18 mg/dL (0.70-1.30); EST Glomerular Filtration Rate 34 mL/min (>60); Est Glom Filt Rate - Afr Amer 41 mL/min (>60); Estimated Creatinine Clearance 41.39 ml/min; Glucose 81 mg/dL (74-106); Potassium 4.4 mmol/L (3.5-5.1); Sodium Level 143 mmol/L (136-145)
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
[2019-05-08] MEDS: HYDROcodone Bitartrate/Apap 5/325 Tablet PO (18:27)
[2019-05-08] MEDS: LORazepam 2 MG/ML Syringe 0.5 MG IV (18:27)
--- NOTE | 2019-05-08 19:51 | ED.RN ---
THIS NURSE REVIEWED D/C INSTRUCTIONS WITH PT AND VISITOR. PT VERBALIZED UNDERSTANDING OF INSTRUCTIONS. BOTH IV'S D/C. IV CATHETERS INTACT. PT TOLERATED WELL. PT DENIES FURTHER NEEDS OR QUESTIONS AT THIS TIME
== END 2019-05-08 19:52 | disposition home or self-care (01) ==
PROVIDERS: Emergency Provider Emergency Medicine; PCP Family Medicine
DX: M54.2 Cervicalgia (principal); G89.29 Other chronic pain; M79.2 Neuralgia and neuritis, unspecified; M79.604 Pain in right leg; M79.605 Pain in left leg; M79.602 Pain in left arm; R20.2 Paresthesia of skin; E11.22 Type 2 diabetes mellitus with diabetic chronic kidney disease; N18.2 Chronic kidney disease, stage 2 (mild); J44.9 Chronic obstructive pulmonary disease, unspecified; E78.5 Hyperlipidemia, unspecified; M10.9 Gout, unspecified; R94.31 Abnormal electrocardiogram [ECG] [EKG]; F17.200 Nicotine dependence, unspecified, uncomplicated; Z79.4 Long term (current) use of insulin; Z79.899 Other long term (current) drug therapy; Z88.0 Allergy status to penicillin; Z88.1 Allergy status to other antibiotic agents
CPT/HCPCS: 71045; 80048; 84484; 85025; 93005; 96374; 99285; J7030; A4216

== ENCOUNTER → 2019-05-18 14:05 | Outpatient (CLI) | payer BC, SELFPAY ==
[2019-05-17 12:36] VITALS: BMI 30.5
--- NOTE | 2019-05-18 14:08 | RAD_ITS ---
STUDY: X-RAY - CERVICAL SPINE REASON FOR EXAM: Male, 54 years old. cervical radiculopathy TECHNIQUE: 5 view(s) of the cervical spine were obtained. COMPARISON: None FINDINGS: Normal anterior atlantoaxial articulation. Normal odontoid process. There is straightening of the normal lordotic curvature. There is endplate spondylosis C5-C7. There is narrowing of the C5-6 and C6-7 disc spaces. There is bilateral foraminal narrowing at the C5-6 level. The soft tissue structures are unremarkable. RAD/Cerv Spine 4 or 5 Views IMPRESSION: Cervical degenerative changes as detailed above. Electronically Signed: Vikash Ross MD at 22:54 EST , Service support ,
--- NOTE | 2019-05-18 14:08 | RAD_ITS ---
STUDY: X-RAY CHEST REASON FOR EXAM: Male, 54 years old. COPD exacerbation TECHNIQUE: PA and lateral views of the chest. COMPARISON: Prior study of 04/14/2018 FINDINGS: The lungs are clear and expanded. There is no demonstrated pleural abnormality. Normal size heart. Normal mediastinum and owen. Normal visualized pulmonary arteries. Normal visualized aortic arch and descending thoracic aorta. Normal visualized thoracic spine. Normal visualized ribs, clavicles, and shoulders. There is no demonstrated abnormality of the visualized soft tissue structures of the upper abdomen. RAD/Chest PA and Lateral IMPRESSION: Normal x-ray examination of the chest. Electronically Signed: Vikash Ross MD at 22:47 EST , Service support ,
== END ==
PROVIDERS: PCP Family Medicine; Referring Provider Family Medicine; Visit Provider Family Medicine
DX: M54.12 Radiculopathy, cervical region (principal); J44.1 Chronic obstructive pulmonary disease with (acute) exacerbation
CPT/HCPCS: 71046; 72050

== ENCOUNTER → 2019-06-06 16:08 | Outpatient (CLI) | payer BC, SELFPAY ==
[2019-05-17 12:36] VITALS: BMI 30.5
[2019-06-06 16:14] LABS: Bacteria 0 SEEN /hpf (None Seen); Mucous, Urine 0 SEEN /hpf (<or=2+); Red Blood Cells-Urine 0 SEEN /hpf (0-5); Squamous Epithelial Cells - UA 0 SEEN /hpf (0-5); White Blood Cells 0 SEEN /hpf (0-5)
[2019-06-06 17:34] LABS: Absolute Lymphocyte Count 1.56 X10^3/uL (0.83-4.51); Basophil# 0.04 X10^3/uL; Basophil% 0.6 % (0-1); Eosinophil# 0.26 X10^3/uL; Eosinophils% 4.2 % (0-5); Hematocrit 40.6 % (40-54); Hemoglobin 14.5 g/dL (13.0-16.5); Lymphocyte # 1.56 X10^3/ul (4.0); Mean Corp Hgb Conc 35.7 g/dL (32-36); Mean Corpuscular Hgb 29.6 pg (27.0-32.0); Mean Corpuscular Volume 82.9 fL (80-94); Mean Platelet Vol. 11.6 fl (6.2-12.0); Monocyte% 6.4 % (0-10); NRBC Flagged by Analyzer 0 % (0-5); Neutrophil # 3.97 X10^3/uL (2.7-7.7); Neutrophil % 63.6 % (47-70); POSITIVE COUNT YES; Platelet Count 86 K/mm3 (150-450); RBC Distribution Width SD 42.4 fl (35.1-43.9); White Blood Count 6.2 K/mm3 (4.4-11.0)
[2019-06-06 17:37] LABS: Differential Indicated SCAN CRITERIA MET
[2019-06-06 17:44] LABS: Color, Urine Yellow (Yellow); Glucose, Dipstick 1000 mg/dl (Normal); Ketone-Dipstick Negative (Negative); Leukocyte Esterase-Dipstick Negative /ul (Negative); Nitrite-Dipstick Negative (Negative); Occult Blood-Urine Negative /ul (Negative); Protein-Dipstick 100 mg/dl (Negative); Urine Bilirubin Dipstick Negative (Negative); Urine Clarity Clear (Clear); Urine Urobilinogen Normal (Normal)
[2019-06-06 17:52] LABS: ALB/GLOB Ratio 0.8 RATIO (0.9-2.4); AST(SGOT) 31 U/L (15-37); Alanine Aminotransfer ALT/SGPT 44 U/L (16-61); Albumin, Serum 3.5 g/dL (3.2-5.0); Alkaline Phosphatase 136 U/L (45-117); Anion Gap 9 (5-15); BUN 36 mg/dL (7-18); BUN/Creat Ratio 22.8 RATIO (10-20); Calcium,Total 9.8 mg/dL (8.5-10.1); Chloride 109 mmol/L (98-107); Cholesterol 182 mg/dL (200); Creatinine, Serum 1.58 mg/dL (0.70-1.30); EST Glomerular Filtration Rate 49 mL/min (>60); Est Glom Filt Rate - Afr Amer 60 mL/min (>60); Globulin 4.4 g/dL (2.2-4.2); Glucose 396 mg/dL (74-106); High Density Lipoprotein 23 mg/dL; Potassium 4.4 mmol/L (3.5-5.1); Protein, Total 7.9 g/dL (6.4-8.2); Sodium Level 138 mmol/L (136-145); Triglycerides 363 mg/dL; Very Low Density Lipoprotein 73 mg/dL (5-40)
[2019-06-06 18:10] LABS: Platelet Estimate ADEQUATE (ADEQ); Red Cell Morphology NORM C+C NORMAL (NORM C&C)
[2019-06-06 18:26] LABS: Microalbumin:Creatinine Ratio 249.4 mg/g CRE (<30 mg/g CRE)
[2019-06-06 18:34] LABS: Hemoglobin A1c 8.5 % (4.2-6.3)
[2019-06-10 17:07] LABS: Vitamin B1, Thiamine 151.2 nmol/L (66.5-200.0)
== END ==
PROVIDERS: PCP Family Medicine; Visit Provider Family Medicine
DX: E11.65 Type 2 diabetes mellitus with hyperglycemia (principal); E51.9 Thiamine deficiency, unspecified; F17.200 Nicotine dependence, unspecified, uncomplicated
CPT/HCPCS: 36415; 80053; 80061; 81001; 82043; 82570; 83036; 84425; 85025

== ENCOUNTER → 2019-11-14 15:13 | Outpatient (CLI) | payer BC, SELFPAY ==
[2019-05-17 12:36] VITALS: BMI 30.5
[2019-11-14 17:33] LABS: Absolute Lymphocyte Count 1.58 X10^3/uL (0.83-4.51); Absolute Neutrophil Count 7.8 X10^3/uL (2.0-7.7); Basophil# 0.02 X10^3/uL; Basophil% 0.2 % (0-1); Eosinophil# 0.11 X10^3/uL; Eosinophils% 1.1 % (0-5); Hematocrit 37.2 % (40-54); Hemoglobin 12.7 g/dL (13.0-16.5); Lymphocyte # 1.58 X10^3/ul (4.0); Lymphocyte % 15.4 % (19-41); Mean Corp Hgb Conc 34.1 g/dL (32-36); Mean Corpuscular Hgb 31.4 pg (27.0-32.0); Mean Corpuscular Volume 91.9 fL (80-94); Mean Platelet Vol. 10.4 fl (6.2-12.0); Monocyte# 0.72 X10^3/uL; NRBC Flagged by Analyzer 0 % (0-5); Neutrophil # 7.77 X10^3/uL (2.7-7.7); Neutrophil % 75.9 % (47-70); POSITIVE COUNT YES; Platelet Count 85 K/mm3 (150-450); RBC Distribution Width CV 14.4 % (11.6-14.6); RBC Distribution Width SD 48.6 fl (35.1-43.9); Red Blood Count 4.05 M/mm3 (4.6-6.2); White Blood Count 10.2 K/mm3 (4.4-11.0)
[2019-11-14 17:43] LABS: ALB/GLOB Ratio 0.8 RATIO (0.9-2.4); AST(SGOT) 87 U/L (15-37); Alanine Aminotransfer ALT/SGPT 51 U/L (16-61); Albumin, Serum 3.5 g/dL (3.2-5.0); Alkaline Phosphatase 128 U/L (45-117); Anion Gap 7 (5-15); BUN 37 mg/dL (7-18); BUN/Creat Ratio 12.5 RATIO (10-20); Calcium,Total 8.6 mg/dL (8.5-10.1); Chloride 96 mmol/L (98-107); Creatinine, Serum 2.96 mg/dL (0.70-1.30); EST Glomerular Filtration Rate 24 mL/min (>60); Est Glom Filt Rate - Afr Amer 29 mL/min (>60); Globulin 4.3 g/dL (2.2-4.2); Glucose 168 mg/dL (74-106); Phosphorus 3.4 mg/dL (2.5-4.9); Potassium 3.3 mmol/L (3.5-5.1); Protein, Total 7.8 g/dL (6.4-8.2); Sodium Level 131 mmol/L (136-145)
[2019-11-14 17:58] LABS: Hemoglobin A1c 6.3 % (3.8-5.6)
[2019-11-14 18:21] LABS: Vitamin D,25 Hydroxy 28.6 ng/mL
== END ==
PROVIDERS: PCP Family Medicine; Referring Provider Family Medicine; Visit Provider Family Medicine
DX: E11.22 Type 2 diabetes mellitus with diabetic chronic kidney disease (principal); N18.3 Chronic kidney disease, stage 3 (moderate); E11.65 Type 2 diabetes mellitus with hyperglycemia; K74.60 Unspecified cirrhosis of liver
CPT/HCPCS: 36415; 80053; 82043; 82140; 82306; 82570; 83036; 84100; 84156; 84425; 85025

== ENCOUNTER → 2019-11-22 15:26 | Outpatient (CLI) | payer BC, SELFPAY ==
[2019-05-17 12:36] VITALS: BMI 30.5
[2019-11-22 18:18] LABS: Protein, Urine (Random) 90.2 mg/dL (<11.9); Protein:Creat Ratio 488 mg/g CRE (0-200); Urine Sodium 93 mmol/L (Not Establ.)
== END ==
PROVIDERS: PCP Family Medicine; Visit Provider Internal Medicine Nephrology
DX: E87.1 Hypo-osmolality and hyponatremia (principal); E11.22 Type 2 diabetes mellitus with diabetic chronic kidney disease
CPT/HCPCS: 82570; 84156; 84300

== ENCOUNTER → 2019-12-04 13:39 | Outpatient (CLI) | payer BC, SELFPAY ==
[2019-05-17 12:36] VITALS: BMI 30.5
[2019-12-04 16:36] LABS: Albumin, Serum 3.3 g/dL (3.2-5.0); BUN 22 mg/dL (7-18); BUN/Creat Ratio 14.2 RATIO (10-20); Calcium,Total 8.6 mg/dL (8.5-10.1); Chloride 108 mmol/L (98-107); Creatinine, Serum 1.55 mg/dL (0.70-1.30); EST Glomerular Filtration Rate 50 mL/min (>60); Est Glom Filt Rate - Afr Amer 61 mL/min (>60); Glucose 117 mg/dL (74-106); Phosphorus 3.1 mg/dL (2.5-4.9); Potassium 3.9 mmol/L (3.5-5.1); Sodium Level 137 mmol/L (136-145)
== END ==
PROVIDERS: PCP Family Medicine; Referring Provider Internal Medicine Nephrology; Visit Provider Internal Medicine Nephrology
DX: N17.9 Acute kidney failure, unspecified (principal)
CPT/HCPCS: 36415; 80069

== ENCOUNTER → 2020-05-08 13:52 | Outpatient (CLI) | payer BC, SELFPAY ==
[2019-05-17 12:36] VITALS: BMI 30.5
[2020-05-08 15:19] LABS: Absolute Lymphocyte Count 0.69 X10^3/uL (0.83-4.51); Basophil# 0.03 X10^3/uL; Eosinophil# 0.06 X10^3/uL; Hematocrit 29.2 % (40-54); Hemoglobin 9.5 g/dL (13.0-16.5); Lymphocyte # 0.69 X10^3/ul (4.0); Lymphocyte % 22.5 % (19-41); Mean Corp Hgb Conc 32.5 g/dL (32-36); Mean Corpuscular Hgb 32.6 pg (27.0-32.0); Mean Corpuscular Volume 100.3 fL (80-94); Mean Platelet Vol. 10.6 fl (6.2-12.0); Monocyte# 0.29 X10^3/uL; Monocyte% 9.4 % (0-10); NRBC Flagged by Analyzer 0 % (0-5); Neutrophil # 1.99 X10^3/uL (2.7-7.7); Neutrophil % 64.8 % (47-70); POSITIVE COUNT YES; Platelet Count 71 K/mm3 (150-450); RBC Distribution Width CV 13.2 % (11.6-14.6); RBC Distribution Width SD 49.1 fl (35.1-43.9); Red Blood Count 2.91 M/mm3 (4.6-6.2); White Blood Count 3.1 K/mm3 (4.4-11.0)
[2020-05-08 15:20] LABS: Differential Indicated SCAN CRITERIA MET
[2020-05-08 15:37] LABS: PTHIN 181.4 pg/mL (18.4-80.1)
[2020-05-08 15:44] LABS: ALB/GLOB Ratio 0.7 RATIO (0.9-2.4); AST(SGOT) 73 U/L (15-37); Alanine Aminotransfer ALT/SGPT 57 U/L (16-61); Albumin, Serum 2.7 g/dL (3.2-5.0); Alkaline Phosphatase 116 U/L (45-117); Anion Gap 4 (5-15); BUN 22 mg/dL (7-18); BUN/Creat Ratio 17.1 RATIO (10-20); Calcium,Total 7.5 mg/dL (8.5-10.1); Chloride 110 mmol/L (98-107); Cholesterol 112 mg/dL (200); Creatinine, Serum 1.29 mg/dL (0.70-1.30); Differential Comment SCANNED; EST Glomerular Filtration Rate 62 mL/min (>60); Est Glom Filt Rate - Afr Amer 75 mL/min (>60); Globulin 3.9 g/dL (2.2-4.2); Glucose 250 mg/dL (74-106); High Density Lipoprotein 31 mg/dL; Phosphorus 1.9 mg/dL (2.5-4.9); Platelet Estimate MOD DEC (ADEQ); Potassium 4.4 mmol/L (3.5-5.1); Protein, Total 6.6 g/dL (6.4-8.2); Sodium Level 139 mmol/L (136-145); Triglycerides 94 mg/dL; Very Low Density Lipoprotein 19 mg/dL (5-40)
[2020-05-08 16:18] LABS: Microalbumin:Creatinine Ratio 336.9 mg/g CRE (<30 mg/g CRE); Protein, Urine (Random) 80.9 mg/dL (<11.9); Protein:Creat Ratio 482 mg/g CRE (0-200)
== END ==
PROVIDERS: PCP Family Medicine; Referring Provider Family Medicine; Visit Provider Family Medicine
DX: E11.22 Type 2 diabetes mellitus with diabetic chronic kidney disease (principal); N18.30 Chronic kidney disease, stage 3 unspecified; E11.65 Type 2 diabetes mellitus with hyperglycemia; J44.9 Chronic obstructive pulmonary disease, unspecified
CPT/HCPCS: 36415; 80053; 80061; 82043; 82140; 82570; 83036; 83970; 84100; 84156; 84425; 85025

== ENCOUNTER → 2020-05-23 11:14 | Outpatient (CLI) | payer BC, SELFPAY ==
[2019-05-17 12:36] VITALS: BMI 30.5
== END ==
PROVIDERS: PCP Family Medicine; Referring Provider Family Medicine; Visit Provider Family Medicine
DX: K74.60 Unspecified cirrhosis of liver (principal)
CPT/HCPCS: 36415; 82140

== ENCOUNTER → 2020-05-31 12:57 | Outpatient (CLI) | payer BC, SELFPAY ==
[2019-05-17 12:36] VITALS: BMI 30.5
--- NOTE | 2020-05-31 12:59 | NM_ITS ---
CLINICAL: 55-year-old diabetic male with reported history of early satiety. SEMI-SOLID PHASE 99m Tc SULFUR COLLOID GASTRIC EMPTYING STUDY COMPARISON: None available FINDINGS: The patient was administered approximately 1.0 mCi of 99m Tc sulfur colloid mixed with oatmeal and consumed per os. Image acquisitions in the anterior-posterior projections for a total of 60 minutes. There is prompt visualization of the stomach. There is no gastroesophageal reflux identified. The T ? linear fit was calculated to be 35.80 minutes, (Normal: 12-56 minutes). NM/Gastric Emptying Study IMPRESSION: 1. NORMAL 99m Tc sulfur colloid semi-solid phase (oatmeal) gastric emptying imaging examination. A. There is normal and preserved semi-solid phase gastric emptying compared to normal controls. (Jose et al, J Nucl Med Tech 38: 186, 2010). Electronically Signed: Chandu Bah DO at 8:10 EST Tel , Service support ,
== END ==
PROVIDERS: PCP Family Medicine; Referring Provider Family Medicine; Visit Provider Family Medicine
DX: E11.65 Type 2 diabetes mellitus with hyperglycemia (principal)
CPT/HCPCS: 78264; A9541

== ENCOUNTER → 2020-10-16 13:46 | Outpatient (CLI) | payer BC, MEDICARE, SELFPAY ==
[2019-05-17 12:36] VITALS: BMI 30.5
[2020-10-16 13:50] LABS: Bacteria 0 SEEN /hpf (None Seen); Mucous, Urine 0 SEEN /hpf (<or=2+); Red Blood Cells-Urine 0 SEEN /hpf (0-5); Squamous Epithelial Cells - UA 0 SEEN /hpf (0-5); White Blood Cells 0 SEEN /hpf (0-5)
[2020-10-16 15:16] LABS: Absolute Lymphocyte Count 0.67 X10^3/uL (0.83-4.51); Absolute Neutrophil Count 1.7 X10^3/uL (2.0-7.7); Basophil# 0.02 X10^3/uL; Basophil% 0.7 % (0-1); Eosinophil# 0.06 X10^3/uL; Eosinophils% 2.1 % (0-5); Hematocrit 32.3 % (40-54); Hemoglobin 10.3 g/dL (13.0-16.5); Lymphocyte # 0.67 X10^3/ul (0.83-4.51); Lymphocyte % 23.6 % (19-41); Mean Corp Hgb Conc 31.9 g/dL (32-36); Mean Corpuscular Hgb 25.8 pg (27.0-32.0); Mean Platelet Vol. 10.7 fl (6.2-12.0); Monocyte# 0.34 X10^3/uL; NRBC Flagged by Analyzer 0 % (0-5); Neutrophil # 1.74 X10^3/uL (2.7-7.7); Neutrophil % 61.2 % (47-70); POSITIVE COUNT YES; Platelet Count 51 K/mm3 (150-450); RBC Distribution Width CV 16.7 % (11.6-14.6); RBC Distribution Width SD 49.5 fl (35.1-43.9); Red Blood Count 3.99 M/mm3 (4.6-6.2); White Blood Count 2.8 K/mm3 (4.4-11.0)
[2020-10-16 15:29] LABS: Protein:Creat Ratio 700 mg/g CRE (0-200)
[2020-10-16 15:30] LABS: Color, Urine Yellow (Yellow); Glucose, Dipstick 1000 mg/dl (Normal); Ketone-Dipstick 5 mg/dl (Negative); Leukocyte Esterase-Dipstick Negative /ul (Negative); Nitrite-Dipstick Negative (Negative); Occult Blood-Urine Negative /ul (Negative); Protein-Dipstick 30 mg/dl (Negative); Urine Bilirubin Dipstick Negative (Negative); Urine Clarity Clear (Clear); Urine Urobilinogen Normal (Normal)
[2020-10-16 15:41] LABS: ALB/GLOB Ratio 0.7 RATIO (0.9-2.4); AST(SGOT) 44 U/L (15-37); Alanine Aminotransfer ALT/SGPT 36 U/L (16-61); Albumin, Serum 3.2 g/dL (3.2-5.0); Alkaline Phosphatase 117 U/L (45-117); Anion Gap 9 (5-15); BUN 27 mg/dL (7-18); BUN/Creat Ratio 14.1 RATIO (10-20); Calcium,Total 9.2 mg/dL (8.5-10.1); Chloride 91 mmol/L (98-107); Cholesterol 115 mg/dL (200); Creatinine, Serum 1.91 mg/dL (0.70-1.30); EST Glomerular Filtration Rate 39 mL/min (>60); Est Glom Filt Rate - Afr Amer 48 mL/min (>60); Globulin 4.4 g/dL (2.2-4.2); Glucose 639 mg/dL (74-106); High Density Lipoprotein 11 mg/dL; Phosphorus 2.8 mg/dL (2.5-4.9); Potassium 4.1 mmol/L (3.5-5.1); Protein, Total 7.6 g/dL (6.4-8.2); Sodium Level 128 mmol/L (136-145); Triglycerides 529 mg/dL
[2020-10-16 15:50] LABS: Hemoglobin A1c 13.1 % (3.8-5.6)
[2020-10-16 16:16] LABS: PTHIN 17.7 pg/mL (18.4-80.1)
== END ==
PROVIDERS: PCP Family Medicine; Visit Provider Family Medicine
DX: E11.65 Type 2 diabetes mellitus with hyperglycemia (principal); E11.22 Type 2 diabetes mellitus with diabetic chronic kidney disease; N18.9 Chronic kidney disease, unspecified
CPT/HCPCS: 80053; 80061; 81001; 82140; 82570; 83036; 83970; 84100; 84156; 85025

== ENCOUNTER 2020-12-05 20:37 | Emergency (ER) | payer BC, MEDICARE, SELFPAY ==
[2020-12-05 20:38] VITALS: BP 145/95; PULSE 104; RESP 18; TEMP 36.2; O2SAT 87; O2SAT 93; BMI 29.0
[2020-12-05 20:48] VITALS: O2SAT 93
[2020-12-05 21:11] VITALS: BP 151/98; PULSE 94; RESP 16; O2SAT 95
[2020-12-05 21:43] LABS: Absolute Lymphocyte Count 1.55 X10^3/uL (0.83-4.51); Basophil# 0.03 X10^3/uL; Basophil% 0.8 % (0-1); Eosinophil# 0.11 X10^3/uL; Eosinophils% 2.8 % (0-5); Hematocrit 33.8 % (40-54); Hemoglobin 10.3 g/dL (13.0-16.5); Lymphocyte # 1.55 X10^3/ul (0.83-4.51); Lymphocyte % 39.1 % (19-41); Mean Corp Hgb Conc 30.5 g/dL (32-36); Mean Corpuscular Hgb 25.2 pg (27.0-32.0); Mean Corpuscular Volume 82.8 fL (80-94); Mean Platelet Vol. 10.6 fl (6.2-12.0); Monocyte# 0.24 X10^3/uL; Monocyte% 6.1 % (0-10); NRBC Flagged by Analyzer 0 % (0-5); Neutrophil # 2.01 X10^3/uL (2.7-7.7); Neutrophil % 50.7 % (47-70); POSITIVE COUNT YES; RBC Distribution Width CV 19.6 % (11.6-14.6); RBC Distribution Width SD 58.8 fl (35.1-43.9); Red Blood Count 4.08 M/mm3 (4.6-6.2)
[2020-12-05 21:47] LABS: Differential Indicated SCAN CRITERIA MET
[2020-12-05 21:48] LABS: Platelet Count 49 K/mm3 (150-450)
[2020-12-05 21:55] LABS: AST(SGOT) 197 U/L (15-37); Alanine Aminotransfer ALT/SGPT 74 U/L (16-61); Albumin, Serum 2.7 g/dL (3.2-5.0); Alkaline Phosphatase 127 U/L (45-117); Anion Gap 12 (5-15); BUN 24 mg/dL (7-18); BUN/Creat Ratio 16.6 RATIO (10-20); Calcium,Total 7.2 mg/dL (8.5-10.1); Chloride 112 mmol/L (98-107); Creatinine, Serum 1.45 mg/dL (0.70-1.30); EST Glomerular Filtration Rate 54 mL/min (>60); Est Glom Filt Rate - Afr Amer 65 mL/min (>60); Estimated Creatinine Clearance 62.75 ml/min; Globulin 4.5 g/dL (2.2-4.2); Glucose 243 mg/dL (74-106); Potassium 3.3 mmol/L (3.5-5.1); Protein, Total 7.2 g/dL (6.4-8.2); Sodium Level 142 mmol/L (136-145)
[2020-12-05 22:04] LABS: Platelet Estimate MKD DEC (ADEQ)
[2020-12-05 22:06] LABS: Anisocytosis RARE; Hypochromasia RARE; Red Cell Morphology N CHROM NORMAL (NORM C&C)
[2020-12-05 22:11] VITALS: BP 146/93; PULSE 94; RESP 16; O2SAT 99
[2020-12-05 22:31] LABS: Amphetamine Urine VISTA NEGATIVE (<1000 ng/mL); Barbiturate Urine VISTA NEGATIVE (< 200 ng/mL); Benzodiazepine Urine VISTA NEGATIVE (< 200 ng/mL); Cocaine Urine VISTA NEGATIVE (< 300 ng/mL); Ecstacy Urine VISTA NEGATIVE (< 500 ng/mL); Methadone Urine VISTA NEGATIVE (< 300 ng/mL); PCP Urine VISTA NEGATIVE (< 25 ng/mL); THC Urine VISTA POSITIVE (< 50 ng/mL); Vista UDS pH Range 5
--- NOTE | 2020-12-05 22:38 | EX.ED.DYSGE1 ---
HPI <Dr. Elham Downey MD - Last Filed: 12/07/20 15:44> History of Present Illness Chief Complaint: Overdose Informant: patient and EMS Narrative Narrative: Patient presents via EMS after overdose. Patient was found minimally responsive laying next to his pickup truck. Per EMS note law enforcement gave 2 mg of intranasal Narcan. Patient was bagged on EMS arrival and given an additional 2 mg of Narcan. Patient began to come around able to open eyes to voice. He states that he snorted some Valium and is unaware of what else may have been with it. Patient does admit to drinking 1 beer tonight. [facility] <Dr. Elham Downey MD - Last Filed: 12/07/20 15:44> [facility] Medical History (Updated 12/05/20 @ 22:[address] Elham Downey MD) CKD (chronic kidney disease) stage 2, GFR 60-89 ml/min COPD (chronic obstructive pulmonary disease) CRF (chronic renal failure) Diabetes mellitus, type II EtOH dependence Fatty liver Gout Hepatic cirrhosis History of positive PPD, untreated HLD (hyperlipidemia) Hyperuricemia Macrocytic anemia Nicotine dependence Pancytopenia Portal hypertension with esophageal varices Thrombocytopenia Home Medications albuterol sulfate 1 - 2 puff INHALATION Q4H PRN PRN 02/27/17 [History Last Taken 05/07/19] mometasone-formoterol 2 puff IH BID PRN PRN 07/26/17 [History Last Taken 05/07/19] insulin lispro 40 mg SUBCUT TID 05/08/19 [History Last Taken 05/07/19] tamsulosin 0.4 mg PO DAILY 05/08/19 [History Last Taken 05/07/19] tiotropium bromide 2 puff IH DAILY 05/08/19 [History Last Taken 05/07/19] tizanidine 2 mg PO Q8H PRN PRN 05/08/19 [History Last Taken 05/07/19] duloxetine 30 mg capsule,delayed release mg PO 05/16/19 [History Last Taken Unknown] fluticasone propionate 50 mcg/actuation nasal spray,suspension 2 spray INTRANASAL DAILY 05/16/19 [History Last Taken Unknown] hydroxyzine pamoate 50 mg capsule 100 mg PO QHS cap 05/16/19 [History Last Taken Unknown] insulin glargine U-300 conc 300 unit/mL (3 mL) subcutaneous pen 5 unit SC DAILY 05/16/19 [History Last Taken Unknown] Allergy/AdvReac Type Severity Reaction Status Date / Time Penicillins Allergy Anaphylaxis Verified 12/05/20 20:41 ciprofloxacin [From Cipro] AdvReac Other Verified 12/05/20 20:41 Family History Mother Cancer lung cancer Hypertension ETOH abuse Brother Kidney disease Surgical History S/P TIPS (transjugular intrahepatic portosystemic shunt) Social History Smoking Status: Current every day smoker tobacco type: cigarettes Tobacco: How many years used: 44 ROS <Dr. Elham Downey MD - Last Filed: 12/07/20 15:44> ROS ED Constitutional Constitutional ED: Denies chills or fever(s) Eyes Eyes: Denies change in vision ENT ENT ED: Denies sore throat Cardiovascular Cardiovascular: Denies chest pain Respiratory/Chest Respiratory/Chest: Denies cough or dyspnea Gastrointestinal Gastrointestinal: Denies abdominal pain, diarrhea, nausea or vomiting Musculoskeletal Musculoskeletal: Reports arthralgias; Denies back pain Integumentary Denies rash Neurologic Neurologic: Denies headache(s) Allergic/Immunologic Allergic/Immunologic ED: Denies urticaria EXAM <Dr. Elham Downey MD - Last Filed: 12/07/20 15:44> Physical Exam Const Vital Signs: 12/05/20 20:38 12/05/20 20:48 12/05/20 21:11 Temperature 97.1 F L Temperature Source Temporal Pulse Rate 104 H 94 Respiratory Rate 18 16 Blood Pressure 145/95 H 151/98 H Blood Pressure Mean 111 115 Pulse Ox 93 93 95 Oxygen Delivery Method Nasal Cannula Nasal Cannula Nasal Cannula Oxygen Flow Rate (L/min) 4 6 6 12/05/20 22:11 12/05/20 22:51 12/05/20 23:00 Temperature Temperature Source Pulse Rate 94 87 90 Respiratory Rate 16 15 15 Blood Pressure 146/93 H 153/95 H 148/91 H Blood Pressure Mean 110 114 110 Pulse Ox 99 97 97 Oxygen Delivery Method Nasal Cannula Nasal Cannula Nasal Cannula Oxygen Flow Rate (L/min) 4 2 2 12/06/20 00:02 Temperature Temperature Source Pulse Rate 89 Respiratory Rate 18 Blood Pressure 150/96 H Blood Pressure Mean 114 Pulse Ox 90 Oxygen Delivery Method Room Air Oxygen Flow Rate (L/min) Positive well nourished and well developed General Appearance ED: well developed HEENT Reports moist mucous membranes Eyes PERRL and EOMs intact bilaterally Neck supple Chest Wall inspection of chest normal and palpation of chest normal Resp normal respiratory effort Resp Narrative: Coarse breath sounds bilaterally. No wheezing noted. Cardio regular rate and regular rhythm GI normal to inspection, nondistended, normoactive bowel sounds and non-tender Palpation: soft Extremity Extremity Narrative: 2+ left lower extremity edema. 1+ right lower extremity edema. No focal tenderness. Neuro oriented x3 Sensorium / Orientation: alert Psych Psych Narrative: Patient is sleepy but will arouse to voice. He will answer questions appropriately. He will fall back asleep without stimulation. Skin no rashes or lesions noted <Dr. Nick Kwong MD - Last Filed: 12/06/20 01:32> Physical Exam Const Vital Signs: 12/05/20 20:38 12/05/20 20:48 12/05/20 21:11 Temperature 97.1 F L Temperature Source Temporal Pulse Rate 104 H 94 Respiratory Rate 18 16 Blood Pressure 145/95 H 151/98 H Blood Pressure Mean 111 115 Pulse Ox 93 93 95 Oxygen Delivery Method Nasal Cannula Nasal Cannula Nasal Cannula Oxygen Flow Rate (L/min) 4 6 6 12/05/20 22:11 12/05/20 22:51 12/05/20 23:00 Temperature Temperature Source Pulse Rate 94 87 90 Respiratory Rate 16 15 15 Blood Pressure 146/93 H 153/95 H 148/91 H Blood Pressure Mean 110 114 110 Pulse Ox 99 97 97 Oxygen Delivery Method Nasal Cannula Nasal Cannula Nasal Cannula Oxygen Flow Rate (L/min) 4 2 2 12/06/20 00:02 Temperature Temperature Source Pulse Rate 89 Respiratory Rate 18 Blood Pressure 150/96 H Blood Pressure Mean 114 Pulse Ox 90 Oxygen Delivery Method Room Air Oxygen Flow Rate (L/min) MDM <Dr. Elham Downey MD - Last Filed: 12/07/20 15:44> [facility] Narrative Medical decision making narrative: Patient is currently on nasal cannula. 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 Labs, urine tox screen obtained. Lab Data Attestation: I reviewed the patient's lab results. Labs: Laboratory Results - last 24 hr 12/05/20 12/05/20 12/05/20 20:43 20:43 20:43 WBC 4.0 L RBC 4.08 L Hgb 10.3 L Hct 33.8 L MCV 82.8 MCH 25.2 L MCHC 30.5 L RDW Std Deviation 58.8 H RDW Coeff of Phylicia 19.6 H Plt Count 49 L* MPV 10.6 Immature Gran % (Auto) 0.500 Neut % (Auto) 50.7 Lymph % (Auto) 39.1 Cottle % (Auto) 6.1 Eos % (Auto) 2.8 Baso % (Auto) 0.8 Absolute Neuts (auto) 2.0 Absolute Lymphs (auto) 1.55 Nucleated RBC % 0 [address] Review May foll Platelet Estimate MKD DEC RBC Morphology N CHROM Hypochromasia RARE Anisocytosis RARE Sodium 142 Potassium 3.3 L Chloride 112 H Carbon Dioxide 18.0 L Anion Gap 12 BUN 24 H Creatinine 1.45 H Estim Creat Clear Calc 62.75 Est GFR (MDRD) Af Amer 65 Est GFR (MDRD) Non-Af 54 L BUN/Creatinine Ratio 16.6 Glucose 243 H Calcium 7.2 L Total Bilirubin 1.50 H Direct Bilirubin 0.70 H AST 197 H ALT 74 H Alkaline Phosphatase 127 H Total Protein 7.2 Albumin 2.7 L Globulin 4.5 H Urine Opiates Screen Urine Methadone Screen Ur Barbiturates Screen Ur Phencyclidine Scrn Ur Amphetamines Screen U Methamphetamin-MDMA U Benzodiazepines Scrn Urine Cocaine Screen U Cannabinoids Screen Ur Drug Screen Comment Ethyl Alcohol 239.0 12/05/20 22:05 WBC RBC Hgb Hct MCV MCH MCHC RDW Std Deviation RDW Coeff of Phylicia Plt Count MPV Immature Gran % (Auto) Neut % (Auto) Lymph % (Auto) Cottle % (Auto) Eos % (Auto) Baso % (Auto) Absolute Neuts (auto) Absolute Lymphs (auto) Nucleated RBC % Diff Path Review Platelet Estimate RBC Morphology Hypochromasia Anisocytosis Sodium Potassium Chloride Carbon Dioxide Anion Gap BUN Creatinine Estim Creat Clear Calc Est GFR (MDRD) Af Amer Est GFR (MDRD) Non-Af BUN/Creatinine Ratio Glucose Calcium Total Bilirubin Direct Bilirubin AST ALT Alkaline Phosphatase Total Protein Albumin Globulin Urine Opiates Screen NEGATIVE Urine Methadone Screen NEGATIVE Ur Barbiturates Screen NEGATIVE Ur Phencyclidine Scrn NEGATIVE Ur Amphetamines Screen NEGATIVE U Methamphetamin-MDMA NEGATIVE U Benzodiazepines Scrn NEGATIVE Urine Cocaine Screen NEGATIVE U Cannabinoids Screen POSITIVE H Ur Drug Screen Comment Ethyl Alcohol Treatment and Re-Evaluation Comments:: Patient has chronic thrombocytopenia with platelet count of 49,000, not significantly changed from his baseline. Tox screen is positive for cannabinoids. EtOH level is 239. Patient will continue to be monitored until he clears the alcohol. This was sent to oncoming physician for further observation. I anticipate he will be able to be discharged once his alcohol is cleared. <Dr. Nick Kwong MD - Last Filed: 12/06/20 01:32> MDM MDM Narrative Medical decision making narrative: Patient observed for several hours on a reevaluation he is walking around the room coherent without ataxia wanting to call for a ride. He will be discharged as soon as he has a ride home or a taxi. Lab Data Attestation: I reviewed the patient's lab results. Labs: Laboratory Results - last 24 hr 12/05/20 12/05/20 12/05/20 20:43 20:43 20:43 WBC 4.0 L RBC 4.08 L Hgb 10.3 L Hct 33.8 L MCV 82.8 MCH 25.2 L MCHC 30.5 L RDW Std Deviation 58.8 H RDW Coeff of Phylicia 19.6 H Plt Count 49 L* MPV 10.6 Immature Gran % (Auto) 0.500 Neut % (Auto) 50.7 Lymph % (Auto) 39.1 Cottle % (Auto) 6.1 Eos % (Auto) 2.8 Baso % (Auto) 0.8 Absolute Neuts (auto) 2.0 Absolute Lymphs (auto) 1.55 Nucleated RBC % [address] Review May foll Platelet Estimate MKD DEC RBC Morphology N CHROM Hypochromasia RARE Anisocytosis RARE Sodium 142 Potassium 3.3 L Chloride 112 H Carbon Dioxide 18.0 L Anion Gap 12 BUN 24 H Creatinine 1.45 H Estim Creat Clear Calc 62.75 Est GFR (MDRD) Af Amer 65 Est GFR (MDRD) Non-Af 54 L BUN/Creatinine Ratio 16.6 Glucose 243 H Calcium 7.2 L Total Bilirubin 1.50 H Direct Bilirubin 0.70 H AST 197 H ALT 74 H Alkaline Phosphatase 127 H Total Protein 7.2 Albumin 2.7 L Globulin 4.5 H Urine Opiates Screen Urine Methadone Screen Ur Barbiturates Screen Ur Phencyclidine Scrn Ur Amphetamines Screen U Methamphetamin-MDMA U Benzodiazepines Scrn Urine Cocaine Screen U Cannabinoids Screen Ur Drug Screen Comment Ethyl Alcohol 239.0 12/05/20 22:05 WBC RBC Hgb Hct MCV MCH MCHC RDW Std Deviation RDW Coeff of Phylicia Plt Count MPV Immature Gran % (Auto) Neut % (Auto) Lymph % (Auto) Cottle % (Auto) Eos % (Auto) Baso % (Auto) Absolute Neuts (auto) Absolute Lymphs (auto) Nucleated RBC % Diff Path Review Platelet Estimate RBC Morphology Hypochromasia Anisocytosis Sodium Potassium Chloride Carbon Dioxide Anion Gap BUN Creatinine Estim Creat Clear Calc Est GFR (MDRD) Af Amer Est GFR (MDRD) Non-Af BUN/Creatinine Ratio Glucose Calcium Total Bilirubin Direct Bilirubin AST ALT Alkaline Phosphatase Total Protein Albumin Globulin Urine Opiates Screen NEGATIVE Urine Methadone Screen NEGATIVE Ur Barbiturates Screen NEGATIVE Ur Phencyclidine Scrn NEGATIVE Ur Amphetamines Screen NEGATIVE U Methamphetamin-MDMA NEGATIVE U Benzodiazepines Scrn NEGATIVE Urine Cocaine Screen NEGATIVE U Cannabinoids Screen POSITIVE H Ur Drug Screen Comment Ethyl Alcohol Discharge Plan Triage Chief Complaint: Overdose ED Provider: Elham Downey Dx/Rx/DC Orders Clinical Impression: Overdose Instructions: ED Alcohol Intoxication, ED Opiate Abuse Prescriptions: No Action hydroxyzine pamoate [Vistaril] 50 mg capsule 100 mg PO QHS RF: 0 fluticasone propionate [Flonase Allergy Relief] 50 mcg/actuation spray,suspension 2 spray INTRANASAL DAILY RF: 0 duloxetine 30 mg capsule,delayed release(DR/EC) PO RF: 0 Toujeo Max U-300 SoloStar 300 unit/mL (3 mL) insulin pen 5 unit SC DAILY RF: 0 albuterol sulfate 1 INHALER inhaler 1 - 2 puff inhalation Q4H PRN PRN (Reason: Sob &/Or Wheezing) RF: 0 mometasone-formoterol 8.8 GM HFA aerosol inhaler 2 puff IH BID PRN PRN (Reason: breathing) RF: 0 tamsulosin 0.4 MG capsule 0.4 mg PO DAILY RF: 0 insulin lispro 100 UNIT/ML insulin pen 40 mg subcut TID RF: 0 tiotropium bromide 18 MCG capsule, w/inhalation device 2 puff IH DAILY RF: 0 tizanidine 2 MG capsule 2 mg PO Q8H PRN PRN (Reason: Muscle Spasm) RF: 0 Primary Care Provider: Rene Mckee Referrals: Rene Mckee MD [Primary Care Provider] - [facility] [STAFF PHYSICIAN] - As Needed Disposition Disposition: Home, Self Care Discharge Date/Time: 12/06/20 05:21
[2020-12-05 22:51] VITALS: BP 153/95; PULSE 87; RESP 15; O2SAT 97
[2020-12-05 23:00] VITALS: BP 148/91; PULSE 90; RESP 15; O2SAT 97
[2020-12-06] VITALS (7 sets, daily range): BP systolic 132–150; BP diastolic 68–96; PULSE 80–89; RESP 17–18; O2SAT 90–93
--- NOTE | 2020-12-06 01:49 | ED.RN ---
called pt home but did not answer. pt unable to be d/c due etoh. Pt aware will take taxi when they run
[2020-12-06 14:05] LABS: Pathologist Review Reviewed
== END 2020-12-06 05:21 | disposition home or self-care (01) ==
PROVIDERS: Emergency Provider Emergency Medicine; PCP Family Medicine
DX: T42.4X1A Poisoning by benzodiazepines, accidental (unintentional), initial encounter (principal); R40.4 Transient alteration of awareness; Y92.9 Unspecified place or not applicable; F10.20 Alcohol dependence, uncomplicated; Y90.7 Blood alcohol level of 200-239 mg/100 ml; D69.6 Thrombocytopenia, unspecified; E11.22 Type 2 diabetes mellitus with diabetic chronic kidney disease; N18.2 Chronic kidney disease, stage 2 (mild); J44.9 Chronic obstructive pulmonary disease, unspecified; E78.5 Hyperlipidemia, unspecified; K76.6 Portal hypertension; I85.10 Secondary esophageal varices without bleeding; K74.60 Unspecified cirrhosis of liver; F17.210 Nicotine dependence, cigarettes, uncomplicated; Z79.4 Long term (current) use of insulin; Z79.899 Other long term (current) drug therapy
CPT/HCPCS: 80048; 80076; 80307; 82077; 85025; 99285; J7030; A4216

== ENCOUNTER 2021-03-28 11:52 | Inpatient (IN) | payer BC, MEDICARE, SELFPAY ==
[2021-03-28] VITALS (14 sets, daily range): BP systolic 109–153; BP diastolic 74–96; PULSE 81–109; RESP 12–29; TEMP 36.6–37.1; O2SAT 98–100; BMI 35.6; BMI 34.6
--- NOTE | 2021-03-28 12:01 | EKG12_ITS ---
Test Reason : CP Blood Pressure : / mmHG Vent. Rate : 101 BPM Atrial Rate : 101 BPM P-R Int : 192 ms QRS Dur : 094 ms QT Int : 362 ms P-R-T Axes : 030 014 042 degrees QTc Int : 469 ms Sinus tachycardia Low voltage QRS Borderline ECG Confirmed by JENNIFER TANNER, IAM ([id number]), newspaper photo editor JEANIE ARCEO ([id number]) on 03/31/2021 9:42:49 AM Referred By: DELORIS/MARTY Confirmed By:IAM RODRIGUEZ MD
--- NOTE | 2021-03-28 12:11 | RAD_ITS ---
STUDY: X-RAY CHEST REASON FOR EXAM: Male, 55 years old. SOB,CP TECHNIQUE: Single AP portable view of the chest. COMPARISON: Comparison is made with prior study dated 05/18/2019. FINDINGS: EKG electrodes are seen. The lungs are clear and expanded. There is no demonstrated pleural abnormality. Normal size heart. Normal mediastinum and owen. Normal visualized pulmonary arteries. Normal visualized aortic arch and descending thoracic aorta. Normal visualized thoracic spine. Normal visualized ribs, clavicles, and shoulders. There is no demonstrated abnormality of the visualized soft tissue structures of the upper abdomen. RAD/Chest 1 View (Portable) IMPRESSION: Normal x-ray examination of the chest. Electronically Signed: Raad Mcdonough MD at 12:36 EST , Service support ,
[2021-03-28 12:16] LABS: Absolute Neutrophil Count 1.8 X10^3/uL (2.0-7.7); Basophil# 0.04 X10^3/uL; Basophil% 1.3 % (0-1); Eosinophil# 0.07 X10^3/uL; Eosinophils% 2.2 % (0-5); Hematocrit 23.5 % (40-54); Hemoglobin 7.9 g/dL (13.0-16.5); Lymphocyte % 28.7 % (19-41); Mean Corp Hgb Conc 33.6 g/dL (32-36); Mean Corpuscular Hgb 28.4 pg (27.0-32.0); Mean Corpuscular Volume 84.5 fL (80-94); Mean Platelet Vol. 9.4 fl (6.2-12.0); Monocyte# 0.33 X10^3/uL; Monocyte% 10.5 % (0-10); NRBC Flagged by Analyzer 0 % (0-5); Neutrophil # 1.79 X10^3/uL (2.7-7.7); POSITIVE COUNT YES; POSITIVE MORPHOLOGY YES; Platelet Count 66 K/mm3 (150-450); RBC Distribution Width CV 15.7 % (11.6-14.6); RBC Distribution Width SD 46.7 fl (35.1-43.9); Red Blood Count 2.78 M/mm3 (4.6-6.2); White Blood Count 3.1 K/mm3 (4.4-11.0)
[2021-03-28 12:18] LABS: Differential Indicated SCAN CRITERIA MET
[2021-03-28 12:40] LABS: Anisocytosis 1+; Hypochromasia 1+; Platelet Estimate MOD DEC (ADEQ)
--- NOTE | 2021-03-28 13:06 | CT_ITS ---
STUDY: CT ABDOMEN AND PELVIS WITH CONTRAST REASON FOR EXAM: Male, 55 years old. Abdominal distention RADIATION DOSAGE (If Supplied By Facility): CTDIvol = ( 14.45 ) mGy, DLP = ( 1208.12 ) mGycm TECHNIQUE: Transaxial images were obtained from the dome of the diaphragm to the symphysis pubis without oral contrast. IV 100mL Isovue-300 was administered. Sagittal and coronal images were reconstructed. Individualized dose optimization techniques were used for this CT. COMPARISON: Comparison is made with prior study dated 11/13/2013. FINDINGS: The visualized lung bases are unremarkable. The visualized portions of the heart are within normal limits. There is a diffuse contour abnormality of the liver consistent with cirrhotic changes. There is evidence of a TIPS. There are multiple small gallstones. Normal spleen. Normal pancreas. Diffuse ascites. Normal bilateral adrenal glands. Normal right kidney. Normal left kidney. Normal visualized stomach. Normal small intestine. Normal colon. The appendix is visualized and appears normal. There is diffuse atherosclerotic calcification of the abdominal aorta, without a demonstrated aneurysm. Normal inferior vena cava. Normal retroperitoneum. Normal urinary bladder. Bilateral hydroceles. Prostatic calcification. Diffuse subcutaneous edema. Normal osseous structures. CT/Abdomen/Pelvis W IV Cont ONLY IMPRESSION: Diffuse ascites. There is evidence of cirrhosis of the liver. Small gallstones. There is evidence of a TIPS Electronically Signed: Raad Mcdonough MD at 13:50 EST , Service support ,
--- NOTE | 2021-03-28 13:09 | ED.VIS.CHEST ---
HPI History of Present Illness Chief Complaint: Chest Pain Narrative Narrative: 54-year-old male with history of hyperlipidemia, diabetes, cirrhosis presenting with left upper chest pain. He states is been on and off for about a week. He states he is a smoker and has a history of COPD. He does not have significant shortness of breath. He does have a mild cough. Today. His chest pain comes and goes often with no other symptoms associated. Patient states that his abdomen is also very distended. He states that initially when this happened it would come and go but now it is very distended and has not gone down. He states that he seen GI specialist in [place] somewhere he cannot recall his name. He states that he did not do anything for him. Patient has no history of paracentesis. He denies fever or chills. He is able to eat and drink and makes normal urine and stool. [facility] Medical History (Updated 03/28/21 @ 16:57 by Rene CASAREZ) CKD (chronic kidney disease) stage 2, GFR 60-89 ml/min COPD (chronic obstructive pulmonary disease) CRF (chronic renal failure) Diabetes mellitus, type II EtOH dependence Fatty liver Gout Hepatic cirrhosis History of positive PPD, untreated HLD (hyperlipidemia) Hyperuricemia Macrocytic anemia Nicotine dependence Pancytopenia Portal hypertension with esophageal varices Thrombocytopenia Home Medications albuterol sulfate 1 - 2 puff INHALATION Q4H PRN PRN 02/27/17 [History Last Taken 05/07/19] mometasone-formoterol 2 puff IH BID PRN PRN 07/26/17 [History Last Taken 05/07/19] insulin lispro 40 mg SUBCUT TID 05/08/19 [History Last Taken 05/07/19] tamsulosin 0.4 mg PO DAILY 05/08/19 [History Last Taken 05/07/19] tiotropium bromide 2 puff IH DAILY 05/08/19 [History Last Taken 05/07/19] tizanidine 2 mg PO Q8H PRN PRN 05/08/19 [History Last Taken 05/07/19] duloxetine 30 mg capsule,delayed release mg PO 05/16/19 [History Last Taken Unknown] fluticasone propionate 50 mcg/actuation nasal spray,suspension 2 spray INTRANASAL DAILY 05/16/19 [History Last Taken Unknown] hydroxyzine pamoate 50 mg capsule 100 mg PO QHS cap 05/16/19 [History Last Taken Unknown] insulin glargine U-300 conc 300 unit/mL (3 mL) subcutaneous pen 5 unit SC DAILY 05/16/19 [History Last Taken Unknown] Allergy/AdvReac Type Severity Reaction Status Date / Time Penicillins Allergy Anaphylaxis Verified 03/28/21 11:56 ciprofloxacin [From Cipro] AdvReac Other Verified 03/28/21 11:56 Family History (Updated 03/28/21 @ 16:45 by Rene CASAREZ) Mother Cancer lung cancer Hypertension ETOH abuse Heart disease Brother Kidney disease Family History no significant family his Surgical History S/P TIPS (transjugular intrahepatic portosystemic shunt) Social History (Updated 03/28/21 @ 16:47 by Rene CASAREZ) Smoking Status: Current every day smoker tobacco type: cigarettes Smoking packs per day: 1.5 Smoking cigarettes per day: 30.0 Years smoked: 40 Smoking pack-years: 60.00 Tobacco: How many years used: 44 alcohol intake: current alcohol intake frequency: 3 or more drinks per day Alcohol type: beer ROS ROS ED Constitutional Constitutional ED: Denies chills or fever(s) Eyes Eyes: Denies blurry vision or change in vision ENT ENT ED: Denies rhinorrhea or sore throat Cardiovascular Cardiovascular: Reports as per HPI Respiratory/Chest Respiratory/Chest: Reports cough and dyspnea Gastrointestinal Gastrointestinal: Reports abdominal pain; Denies constipation, diarrhea, nausea or vomiting Genitourinary Genitourinary ED: Denies dysuria or hematuria Musculoskeletal Musculoskeletal: Denies arthralgias or myalgias Integumentary Denies abscess or rash Neurologic Neurologic: Denies headache(s) or weakness Psychiatric Psychiatric: Denies anxiety or depression EXAM Physical Exam Const Vital Signs: 03/28/21 11:53 03/28/21 11:56 03/28/21 11:57 Temperature 98.7 F 98.7 F Temperature Source Oral Oral Pulse Rate 105 H 105 H Respiratory Rate 24 H 24 H Respiratory Effort Short of Breath Blood Pressure 153/86 H 153/86 H Blood Pressure Mean 108 108 Pulse Ox 98 98 Oxygen Delivery Method Room Air Room Air 03/28/21 12:52 03/28/21 13:30 03/28/21 13:41 Temperature Temperature Source Pulse Rate 97 89 Respiratory Rate 18 16 Respiratory Effort Blood Pressure 110/96 H 128/74 H Blood Pressure Mean 100 92 Pulse Ox 100 100 Oxygen Delivery Method Room Air Room Air Room Air 03/28/21 14:00 03/28/21 15:00 03/28/21 16:03 Temperature Temperature Source Pulse Rate 81 89 96 Respiratory Rate 17 15 18 Respiratory Effort Blood Pressure 125/87 H 135/87 H 130/81 H Blood Pressure Mean 99 103 97 Pulse Ox 99 100 99 Oxygen Delivery Method Room Air Room Air Room Air Positive obese General Appearance ED: NAD; Negative for pallor Nutritional Appearance: obese HEENT Reports moist mucous membranes normocephalic and atraumatic Eyes PERRL and EOMs intact bilaterally General Eye ED: Negative for scleral icterus Resp normal respiratory effort Auscultation: wheezes expiratory wheezes Cardio regular rhythm Rate: tachycardic GI GI Narrative: Abdomen distended and tense. No focal pain. Neuro oriented x3 Sensorium / Orientation: awake and alert Psych mental status grossly normal Skin General Skin Exam: Negative for jaundice or pallor Heart Score History: Slightly/Non-Suspicious ECG: Normal Age: >45 - <65 years Risk Factors: 1 or 2 Risk Factors Troponin: </= Normal Limit Score: 2 MDM MDM MDM Narrative Medical decision making narrative: Patient initially presenting with chest pain on the left upper chest wall. Does not have any radiation of the pain. No other associated symptoms with this. Its been intermittent. Patient EKG on my interpretation shows a sinus rhythm with a ventricular 101 bpm without sign of ischemic change. Chest x-ray my interpretation is no acute cardiopulmonary process and the radiologist agree. CBC shows his white blood cell count is 3.1, hemoglobin 10.9, platelets 66. He does have a history of pancytopenia. Hemoglobin has dropped this low in the past. Platelets are actually increased. I did do a Hemoccult stool which was negative. Patient does have a history of upper GI bleed and esophageal varices. He has not had any black or bloody stools nor has he had bloody emesis. Patient's CMP shows that his creatinine is slightly worse at 1.72. Potassium 3.3. Sodium 121. Total bilirubin 2.4. Direct bilirubin 1.39, AST 113, ALT normal. Alkaline phosphatase slightly elevated at 156. INR 1.6 initial high-sensitivity troponin is 23. 2-hour delta troponin is 20. I obtained a CT of the abdomen pelvis which shows the diffuse ascites, cirrhosis, previous TIPS procedure. Patient's alcohol level is 56. I discussed the patient with Dr. Polo and he felt that if the patient had a TIPS procedure he should not get ascites and there is actually probably a thrombosis in one of his stents. Patient states this was 2 to 3 years ago when he had this.he was lost to follow-up due to Covid initially. When he was reestablished he missed a few appointments and was dropped from practice with follow-up. Patient will likely need paracentesis and Dr. Polo was amenable to keeping him here at [facility] and performing this himself tomorrow. He stated that he did want to give vitamin K 5 mg IV as well as get an ultrasound of the right upper quadrant with Dopplers of his stents. From a chest pain standpoint ACS is ruled out. Patient was wheezing on examination and was given breathing treatments Solu-Medrol and his respiratory rate has improved from 2418. His pulse ox is 99. Pulse is now 96 from 105. He is normotensive. Patient was discussed with the hospitalist for admission. Dr. Moffett had me hold the patient in the ER pending a return call from Dr. Polo out of concern that the inability of the patient to have Doppler studies done in his right upper quadrant would affect his admission. And currently waiting a callback from Dr. Polo. Patient will be signed out to incoming ED physician for follow-up with Dr. Polo. Right upper quadrant ultrasound is pending without Dopplers. Impression: 1. Pancytopenia 2. History of cirrhosis 3. Hyponatremia 4. Chest pain 5. Ascites 6. Acute kidney injury 7. Elevated bilirubin Lab Data Attestation: I reviewed the patient's lab results. Labs: Laboratory Results - last 24 hr 03/28/21 03/28/21 03/28/21 12:00 12:00 12:00 WBC 3.1 L RBC 2.78 L Hgb 7.9 L Hct 23.5 L MCV 84.5 MCH 28.4 MCHC 33.6 RDW Std Deviation 46.7 H RDW Coeff of Phylicia 15.7 H Plt Count 66 L MPV 9.4 Immature Gran % (Auto) 0.300 Neut % (Auto) 57.0 Lymph % (Auto) 28.7 [place] % (Auto) 10.5 H Eos % (Auto) 2.2 Baso % (Auto) 1.3 H Absolute Neuts (auto) 1.8 L Absolute Lymphs (auto) 0.90 Nucleated RBC % 0 Platelet Estimate MOD DEC Hypochromasia 1+ Anisocytosis 1+ PT INR Sodium 121 L Potassium 3.3 L Chloride 83 L Carbon Dioxide 25.0 Anion Gap 13 BUN 10 Creatinine 1.72 H Estim Creat Clear Calc 51.28 Est GFR (MDRD) Af Amer 54 L Est GFR (MDRD) Non-Af 44 L BUN/Creatinine Ratio 5.8 L Glucose 132 H Calcium 8.2 L Total Bilirubin Direct Bilirubin AST ALT Alkaline Phosphatase Troponin I High Sens 23 Total Protein Albumin Globulin Lipase Ethyl Alcohol Blood Type Antibody Screen 03/28/21 03/28/21 03/28/21 12:00 12:00 12:00 WBC RBC Hgb Hct MCV MCH MCHC RDW Std Deviation RDW Coeff of Phylicia Plt Count MPV Immature Gran % (Auto) Neut % (Auto) Lymph % (Auto) [place] % (Auto) Eos % (Auto) Baso % (Auto) Absolute Neuts (auto) Absolute Lymphs (auto) Nucleated RBC % Platelet Estimate Hypochromasia Anisocytosis PT INR Sodium Potassium Chloride Carbon Dioxide Anion Gap BUN Creatinine Estim Creat Clear Calc Est GFR (MDRD) Af Amer Est GFR (MDRD) Non-Af BUN/Creatinine Ratio Glucose Calcium Total Bilirubin 2.40 H Direct Bilirubin 1.39 H AST 113 H ALT 28 Alkaline Phosphatase 156 H Troponin I High Sens Total Protein 7.1 Albumin 2.2 L Globulin 4.9 H Lipase 184 Ethyl Alcohol 56.0 Blood Type Antibody Screen 03/28/21 03/28/21 03/28/21 12:00 14:59 14:59 WBC RBC Hgb Hct MCV MCH MCHC RDW Std Deviation RDW Coeff of Phylicia Plt Count MPV Immature Gran % (Auto) Neut % (Auto) Lymph % (Auto) [place] % (Auto) Eos % (Auto) Baso % (Auto) Absolute Neuts (auto) Absolute Lymphs (auto) Nucleated RBC % Platelet Estimate Hypochromasia Anisocytosis PT 18.3 H INR 1.6 Sodium Potassium Chloride Carbon Dioxide Anion Gap BUN Creatinine Estim Creat Clear Calc Est GFR (MDRD) Af Amer Est GFR (MDRD) Non-Af BUN/Creatinine Ratio Glucose Calcium Total Bilirubin Direct Bilirubin AST ALT Alkaline Phosphatase Troponin I High Sens 20 Total Protein Albumin Globulin Lipase Ethyl Alcohol Blood Type B POSITIVE Antibody Screen NEGATIVE Radiography Diagnostic Testing: Clinical Impression(s) from Imaging Studies Chest X-Ray 03/28/21 12:11 IMPRESSION: Normal x-ray examination of the chest. Electronically Signed: Raad Mcdonough MD at 12:36 EST , Service support , Abdomen/Pelvis CT 03/28/21 13:06 IMPRESSION: Diffuse ascites. There is evidence of cirrhosis of the liver. Small gallstones. There is evidence of a TIPS Electronically Signed: Raad Mcdonough MD at 13:50 EST , Service support , Discharge Plan Triage Chief Complaint: Chest Pain ED Provider: Chavez Kramer Dx/Rx/DC Orders Prescriptions: No Action hydroxyzine pamoate [Vistaril] 50 mg capsule 100 mg PO QHS RF: 0 fluticasone propionate [Flonase Allergy Relief] 50 mcg/actuation spray,suspension 2 spray INTRANASAL DAILY RF: 0 duloxetine 30 mg capsule,delayed release(DR/EC) PO RF: 0 Toujeo Max U-300 SoloStar 300 unit/mL (3 mL) insulin pen 5 unit SC DAILY RF: 0 albuterol sulfate 1 INHALER inhaler 1 - 2 puff inhalation Q4H PRN PRN (Reason: Sob &/Or Wheezing) RF: 0 mometasone-formoterol 8.8 GM HFA aerosol inhaler 2 puff IH BID PRN PRN (Reason: breathing) RF: 0 tamsulosin 0.4 MG capsule 0.4 mg PO DAILY RF: 0 insulin lispro 100 UNIT/ML insulin pen 40 mg subcut TID RF: 0 tiotropium bromide 18 MCG capsule, w/inhalation device 2 puff IH DAILY RF: 0 tizanidine 2 MG capsule 2 mg PO Q8H PRN PRN (Reason: Muscle Spasm) RF: 0 Primary Care Provider: Care Physician,Magali Primary
[2021-03-28 13:14] LABS: Anion Gap 13 (5-15); BUN 10 mg/dL (7-18); BUN/Creat Ratio 5.8 RATIO (10-20); Calcium,Total 8.2 mg/dL (8.5-10.1); Chloride 83 mmol/L (98-107); Creatinine, Serum 1.72 mg/dL (0.70-1.30); EST Glomerular Filtration Rate 44 mL/min (>60); Est Glom Filt Rate - Afr Amer 54 mL/min (>60); Estimated Creatinine Clearance 51.28 ml/min; Glucose 132 mg/dL (74-106); Potassium 3.3 mmol/L (3.5-5.1); Sodium Level 121 mmol/L (136-145)
[2021-03-28 13:15] LABS: Troponin-I HS 23 pg/mL (3.0-78.0)
[2021-03-28] MEDS: Ipratropium/Albuterol Sulfate 3 ML AMPUL.NEB INHALATION (13:15)
[2021-03-28] MEDS: Albuterol 2.5 MG/3 ML VIAL.NEB. INHALATION (13:15)
[2021-03-28 13:20] LABS: International Normalized Ratio 1.6; Prothrombin Time (Protime)PT. 18.3 SECONDS (11.7-14.9)
[2021-03-28 13:25] LABS: Lipase 184 U/L (73-393)
[2021-03-28] MEDS: MethylPREDNISolone 125 MG/2 ML Vial IV (13:38)
[2021-03-28 13:41] LABS: AST(SGOT) 113 U/L (15-37); Alanine Aminotransfer ALT/SGPT 28 U/L (16-61); Albumin, Serum 2.2 g/dL (3.2-5.0); Alkaline Phosphatase 156 U/L (45-117); Bilirubin, Direct 1.39 mg/dL (0.00-0.30); Globulin 4.9 g/dL (2.2-4.2); Protein, Total 7.1 g/dL (6.4-8.2)
--- NOTE | 2021-03-28 15:29 | US_ITS ---
STUDY: ABDOMINAL ULTRASOUND - RIGHT UPPER QUADRANT REASON FOR VISIT: Male, 55 years old. ABDOMEN PAIN RUQ pain -- TECHNIQUE: Ultrasound evaluation of the right upper quadrant was performed with real-time and static lundberg-scale imaging. TECHNICAL QUALITY: Adequate. COMPARISON: CT of the same day FINDINGS: Liver: There is increased echogenicity consistent with fatty infiltration. The bile ducts are within normal limits. There is hepatic color flow. The direction of portal flow is hepatopetal. The liver is nodular in appearance. A focal mass is not identified. The finding is consistent for hepatic cirrhosis. Gallbladder: Normal distended gallbladder. The gallbladder wall measures 3 mm. There is a negative sonographic Delgado''s sign. There is no pericholecystic fluid. There are no gallstones. Common Bile Duct (C.B.D.): The common bile duct measures ( in mm): 6 Pancreas: It is not visualized. There is too much overlying bowel gas. Right Kidney: Normal size of the right kidney. The right kidney measures 10 cm. . Normal renal cortex. There is no demonstrated renal mass or cyst. There is no right hydronephrosis. Aorta: It is not visualized. There is too much overlying bowel gas. . Ascites. US/Gallbladder IMPRESSION: Fatty liver. Hepatic cirrhosis. Ascites. Gallstones. There is ringdown artifact in the gallbladder wall suggesting gallbladder wall calcifications. Porcelain gallbladder cannot be excluded. There is associated concern with Porcelain gallbladder and development of gallbladder carcinoma. Electronically Signed: Abimael Cortez MD at 18:21 EST , Service support ,
[2021-03-28 15:31] LABS: Troponin-I HS 20 pg/mL (3.0-78.0)
--- NOTE | 2021-03-28 16:29 | PCM.HP.STD ---
Documented by User: Rene CASAREZ 03/28/21 17:19 HPI - General HPI Narrative MARÍA HANLEY is a 55-year-old male who presents to the ED at [facility] on 03/28/2021 with a chief complaint of progressively worsening abdominal and lower extremity swelling. Patient reports that for the past 2 weeks his abdomen and lower extremities have gotten progressively more swollen. Patient's also reports that in the past month patient has been having increasing difficulty with not taking care of himself and has stopped taking his home medications, partially because he does not want to take his diabetic medications because it is a pain in the butt but also because he is ran out of his home medications due to having no primary care doctor. Patient's past medical history is significant for cirrhosis with prior TIPS procedure. Denies chest pain, shortness of breath, palpitations, hemoptysis, sputum production, fever, chills, N/V/D. Vital signs in the ED are temperature of 98.7 ?F, HR of 105, BP of 153/86, RR of 24 and patient is currently satting 98% on room air. CBC demonstrates WBCs at 3.1, hemoglobin of 7.9 and platelets are at 66. BMP shows sodium 121, potassium 3.3, creatinine at 1.7, calcium of 8.2, total bili of 2.4, AST of 113, ALT of 28 and alk phos at 156, albumin is 2.2. Ethyl alcohol is 56. Chest x-ray was unremarkable. CT of the abdomen/pelvis demonstrates diffuse ascites, evidence of cirrhotic liver, gallstones and evidence of prior TIPS. Patient was given breathing treatments, steroids and phytonadione in the ED. [facility] Medical History Ascites CKD (chronic kidney disease) stage 2, GFR 60-89 ml/min COPD (chronic obstructive pulmonary disease) CRF (chronic renal failure) Diabetes mellitus, type II EtOH dependence Fatty liver Gout Hepatic cirrhosis History of positive PPD, untreated HLD (hyperlipidemia) Hyperuricemia Macrocytic anemia Nicotine dependence Pancytopenia Portal hypertension with esophageal varices Thrombocytopenia Home Medications albuterol sulfate 1 - 2 puff INHALATION Q4H PRN PRN 02/27/17 [History Last Taken 05/07/19] mometasone-formoterol 2 puff IH BID PRN PRN 07/26/17 [History Last Taken 05/07/19] insulin lispro 40 mg SUBCUT TID 05/08/19 [History Last Taken 05/07/19] tamsulosin 0.4 mg PO DAILY 05/08/19 [History Last Taken 05/07/19] tiotropium bromide 2 puff IH DAILY 05/08/19 [History Last Taken 05/07/19] tizanidine 2 mg PO Q8H PRN PRN 05/08/19 [History Last Taken 05/07/19] duloxetine 30 mg capsule,delayed release mg PO 05/16/19 [History Last Taken Unknown] fluticasone propionate 50 mcg/actuation nasal spray,suspension 2 spray INTRANASAL DAILY 05/16/19 [History Last Taken Unknown] hydroxyzine pamoate 50 mg capsule 100 mg PO QHS cap 05/16/19 [History Last Taken Unknown] insulin glargine U-300 conc 300 unit/mL (3 mL) subcutaneous pen 5 unit SC DAILY 05/16/19 [History Last Taken Unknown] Allergy/AdvReac Type Severity Reaction Status Date / Time Penicillins Allergy Anaphylaxis Verified 03/28/21 11:56 ciprofloxacin [From Cipro] AdvReac Other Verified 03/28/21 11:56 Family History Mother Cancer lung cancer Hypertension ETOH abuse Heart disease Brother Kidney disease Family History no significant family his no significant family history (Unaware of any Paternal medical history. ) Surgical History S/P TIPS (transjugular intrahepatic portosystemic shunt) Social History Smoking Status: Current every day smoker tobacco type: cigarettes Tobacco: How many years used: 44 alcohol intake: current alcohol intake frequency: 3 or more drinks per day Alcohol type: beer ROS Constitutional Constitutional: Reports change in weight, fatigue and weakness; Denies anorexia, chills, fever(s), malaise, night sweats or other Eyes Eyes: Denies blurry vision, change in eye color, change in vision, discharge from eye(s), double vision, erythema, eye pain, loss of vision or other ENT HEENT: Denies abnormal hearing, dysphagia, ear pain, epistaxis, headache(s), hearing loss, nasal congestion, nasal discharge, post nasal drip, sinus pressure, sore throat or other Cardiovascular Cardiovascular: Denies chest pain, claudication, dyspnea on exertion, edema, lightheadedness, orthopnea, palpitations, paroxysmal nocturnal dyspnea, rapid heart rate, syncope or other Respiratory/Chest Respiratory/Chest: Denies cough, dyspnea, excessive phlegm production, hemoptysis, productive cough, shortness of breath at rest, shortness of breath with exertion, wheezing or other Gastrointestinal Gastrointestinal: Reports abdominal pain; Denies coffee ground emesis, constipation, diarrhea, dyspepsia, hematemesis, hematochezia, loose stools, melena, nausea, vomiting or other Genitourinary Genitourinary: Denies burning urination, difficulty urinating, dysuria, hematuria, nocturia, urinary frequency, urinary hesitancy, urinary incontinence, urinary urgency or other Musculoskeletal Musculoskeletal: Denies arthralgias, back pain, joint pain, joint stiffness, joint swelling, myalgias, neck pain or other Neurologic Neurologic: Denies abnormal gait, abnormal speech, confusion, disequilibrium, dizziness, focal weakness, headache(s), numbness, paresthesias, seizure-like activity, seizures, syncope, tingling, tremor(s) or other Psychiatric Psychiatric: Denies anxiety, depression, homicidal ideation, suicidal ideation or other Endocrine Endocrinology: Denies change in body appearance, cold intolerance, excessive sweating, heat intolerance, polydipsia, polyuria or other Hematologic/Lymphatic Hematologic/Lymphatic: Denies anemia, easy bleeding, easy bruising, lymphadenopathy or other Allergic/Immunologic Allergic/Immunologic: Denies rhinitis, hives, eczemia, asthma or other Vital Signs Vital Signs Vital Signs: 03/28/21 11:53 03/28/21 11:56 03/28/21 11:57 Temperature 98.7 F 98.7 F Temperature Source Oral Oral Pulse Rate 105 H 105 H Respiratory Rate 24 H 24 H Respiratory Effort Short of Breath Blood Pressure 153/86 H 153/86 H Blood Pressure Mean 108 108 Pulse Ox 98 98 Oxygen Delivery Method Room Air Room Air 03/28/21 12:52 03/28/21 13:30 03/28/21 13:41 Temperature Temperature Source Pulse Rate 97 89 Respiratory Rate 18 16 Respiratory Effort Blood Pressure 110/96 H 128/74 H Blood Pressure Mean 100 92 Pulse Ox 100 100 Oxygen Delivery Method Room Air Room Air Room Air 03/28/21 14:00 03/28/21 15:00 03/28/21 16:03 Temperature Temperature Source Pulse Rate 81 89 96 Respiratory Rate 17 15 18 Respiratory Effort Blood Pressure 125/87 H 135/87 H 130/81 H Blood Pressure Mean 99 103 97 Pulse Ox 99 100 99 Oxygen Delivery Method Room Air Room Air Room Air Weight Weight: 248 lb 7.375 oz Body Mass Index (BMI) 35.6 Physical Exam Const General Appearance: cooperative HEENT normocephalic, head/scalp atraumatic and hearing grossly normal bilaterally Eyes PERRL, EOMs intact bilaterally and conjunctivae normal Neck no lymphadenopathy, supple and no JVD Resp normal respiratory effort, no retractions and no use of accessory muscles Cardio regular rhythm, no murmurs and no JVD Rate: tachycardic GI Inspection: edema findings bilateral and abdominal distention Auscultation: hypoactive bowel sounds Palpation: rigid other (Throughout) Percussion: dullness to percussion Extremity normal to inspection, full ROM and no clubbing, cyanosis or edema Skin skin turgor normal General Skin Exam: jaundice Neuro CN's II-XII intact bilaterally Psych affect normal Results Lab / Micro Data Result Diagrams: 03/29/21 11:27 03/29/21 05:20 Labs: Laboratory Results - last 24 hr 03/28/21 12:00: WBC 3.1 L, RBC 2.78 L, Hgb 7.9 L, Hct 23.5 L, MCV 84.5, MCH 28.4, MCHC 33.6, RDW Std Deviation 46.7 H, RDW Coeff of Phylicia 15.7 H, Plt Count 66 L, MPV 9.4, Immature Gran % (Auto) 0.300, Neut % (Auto) 57.0, Lymph % (Auto) 28.7, [place] % (Auto) 10.5 H, Eos % (Auto) 2.2, Baso % (Auto) 1.3 H, Absolute Neuts (auto) 1.8 L, Absolute Lymphs (auto) 0.90, Nucleated RBC % 0, Platelet Estimate MOD DEC, Hypochromasia 1+, Anisocytosis 1+ 03/28/21 12:00: Sodium 121 L, Potassium 3.3 L, Chloride 83 L, Carbon Dioxide 25.0, Anion Gap 13, BUN 10, Creatinine 1.72 H, Estim Creat Clear Calc 51.28, Est GFR (MDRD) Af Amer 54 L, Est GFR (MDRD) Non-Af 44 L, BUN/Creatinine Ratio 5.8 L, Glucose 132 H, Calcium 8.2 L 03/28/21 12:00: Troponin I High Sens 23 03/28/21 12:00: Total Bilirubin 2.40 H, Direct Bilirubin 1.39 H, AST 113 H, ALT 28, Alkaline Phosphatase 156 H, Total Protein 7.1, Albumin 2.2 L, Globulin 4.9 H 03/28/21 12:00: Lipase 184 03/28/21 12:00: Ethyl Alcohol 56.0 03/28/21 12:00: PT 18.3 H, INR 1.6 03/28/21 14:59: Troponin I High Sens 20 03/28/21 14:59: Blood Type B POSITIVE, Antibody Screen NEGATIVE Micro: Microbiology 03/28/21 14:55 Stool Stool Occult Blood (MAGED) - Final Radiology Impression Chest X-Ray 03/28/21 12:11 IMPRESSION: Normal x-ray examination of the chest. Electronically Signed: Raad Mcdonough MD at 12:36 EST , Service support , Abdomen/Pelvis CT 03/28/21 13:06 IMPRESSION: Diffuse ascites. There is evidence of cirrhosis of the liver. Small gallstones. There is evidence of a TIPS Electronically Signed: Raad Mcdonough MD at 13:50 EST , Service support , Assessment & Plan Assessment/Plan (1) Adult failure to thrive: (2) Hepatic cirrhosis: PLAN: Patient is a 55-year-old male who presents to the ED at [facility] on 03/28/2021 with a chief complaint of progressively worsening swelling in the abdomen and lower extremities. Patient will be admitted for management and evaluation of acute decompensated cirrhosis. 1) acute decompensated cirrhosis Patient presents with a month-long history of progressively worsening ascites and lower extremity edema with progressively worsening weakness and fatigue. Abdomen extremely rigid and distended on examination. AST is 113, ALT 28, alk phos 156, total bili of 2.4, direct bili 1.39. Patient has prior history of cirrhosis with prior TIPS procedure. Plan; admit to PCU for cardiac monitoring, obtain gallbladder ultrasound, obtain ammonia level, CBC and CMP in a.m., initiate lactulose, initiate spironolactone, PT/OT eval ordered, case management consult ordered, initiate Lasix, hold parameters in place. 2) adult failure to thrive Patient's reports that her has has been getting progressively weak over the past couple months. Patient's also reports that patient no longer takes medications partially because he does not want to anymore and also because he is out of his home medications due to not having a primary care provider. PT/OT will evaluate patient and case management consult for discharge planning. 3) COPD Not in acute exacerbation. Patient and patient's unaware of what medications he takes at home, will bring in med list tomorrow. Initiate duo nebs and albuterol. 4) LIANE on CKD stage II Creatinine currently 1.7, baseline appears between 1.5 and 2. Continue to monitor BMP. 5) DM2 Accu-Cheks with sliding scale insulin ordered. 6) anemia of chronic disease Hemoglobin currently 7.9, baseline appears around 10. Plan is as above, continue to monitor CBC. 7) thrombocytopenia Platelets currently 66. Appears chronic, baseline appears between 50 and 100. Continue to monitor CBC. CODE STATUS: Full code Advance care planning: Patient's is patient's healthcare power of civil rights attorney and is to make decisions in the event the patient cannot himself. DVT prophylaxis - Lovenox Patient seen by Rene Short PA-C, under the supervision of Dr. Garza. Documented by User: Dr. Kadi Garza MD 03/29/21 12:09 HPI - General General Date of Admission: 03/28/21 [facility] Medical History Ascites CKD (chronic kidney disease) stage 2, GFR 60-89 ml/min COPD (chronic obstructive pulmonary disease) CRF (chronic renal failure) Diabetes mellitus, type II EtOH dependence Fatty liver Gout Hepatic cirrhosis History of positive PPD, untreated HLD (hyperlipidemia) Hyperuricemia Macrocytic anemia Nicotine dependence Pancytopenia Portal hypertension with esophageal varices Thrombocytopenia Home Medications albuterol sulfate 1 - 2 puff INHALATION Q4H PRN PRN 02/27/17 [History Last Taken 05/07/19] mometasone-formoterol 2 puff IH BID PRN PRN 07/26/17 [History Last Taken 05/07/19] insulin lispro 40 mg SUBCUT TID 05/08/19 [History Last Taken 05/07/19] tamsulosin 0.4 mg PO DAILY 05/08/19 [History Last Taken 05/07/19] tiotropium bromide 2 puff IH DAILY 05/08/19 [History Last Taken 05/07/19] tizanidine 2 mg PO Q8H PRN PRN 05/08/19 [History Last Taken 05/07/19] duloxetine 30 mg capsule,delayed release mg PO 05/16/19 [History Last Taken Unknown] fluticasone propionate 50 mcg/actuation nasal spray,suspension 2 spray INTRANASAL DAILY 05/16/19 [History Last Taken Unknown] hydroxyzine pamoate 50 mg capsule 100 mg PO QHS cap 05/16/19 [History Last Taken Unknown] insulin glargine U-300 conc 300 unit/mL (3 mL) subcutaneous pen 5 unit SC DAILY 05/16/19 [History Last Taken Unknown] Allergy/AdvReac Type Severity Reaction Status Date / Time Penicillins Allergy Anaphylaxis Verified 03/28/21 11:56 ciprofloxacin [From Cipro] AdvReac Other Verified 03/28/21 11:56 Family History Mother Cancer lung cancer Hypertension ETOH abuse Heart disease Brother Kidney disease Family History no significant family his Surgical History S/P TIPS (transjugular intrahepatic portosystemic shunt) Social History Smoking Status: Current every day smoker tobacco type: cigarettes Tobacco: How many years used: 44 alcohol intake: current alcohol intake frequency: 3 or more drinks per day Alcohol type: beer Results Lab / Micro Data Result Diagrams: 03/29/21 11:27 03/29/21 05:20 Charges/Coding Addendum Addendum: This patient was seen in conjunction with HERMEILNDO Weathers. I have independently interviewed and examined the patient and reviewed pertinent historical, laboratory, and other data. Please refer to HERMELINDO Weathers's note for his patient's presentation, findings, and recommendations. I have reviewed and his note and concur with his documentation 55-year-old male with past medical history of chronic alcohol use disorder, history of alcoholic cirrhosis status post TIPS who comes in with generalized weakness and abdominal distention. Patient has not seen any physician for more than 2 weeks. He denied any fever or chills. He denied any chest pain. Denied any abdominal discomfort or black stools or hematochezia. His admitting blood work in the ED showed anemia, hypokalemia Physical Exam: Gen: Looks in some discomfort, mildly jaundiced, not pale, not jaundiced CVS:HS I +II, regular, no murmurs RESP: Diminished at lung bases GI: Gross abdominal distention, ascites++, no ballotable organ EXT:No edema ASSESSMENT: 1. Ascites, questionable new onset 2. Liver cirrhosis, status post TIPS 3. Anemia 4. Thrombocytopenia 5. Hypokalemia 6. History of alcohol use disorder 7. Type II DM 8. Abnormal ultrasound Plan: GI consulted from the ED IV PPI twice daily Replace potassium Paracentesis in a.m. I discussed and explained in details the various types of CODE STATUS-full code, DNR CCA, DNR CC. Patient chose full code. Time spent discussing CODE STATUS 16 minutes Visit Charges Inpatient E&M: 52034 Init Hosp L3 Procedures Hospitalists Procedures: 73060 Advncd Care Plan 30 Min
--- NOTE | 2021-03-28 19:38 | CON.PCM.GI_ITS ---
HPI Consult Data Date of Consult: 03/28/21 HPI Narrative HPI Narrative: MARÍA HANLEY, is a 55 M with history of end-stage liver disease secondary to alcoholic cirrhosis complicated by varices, pancytopenia, diabetes, alcoholic hepatitis, alcoholism, chronic kidney disease who recently had a suicide attempt. He is status post TIPS procedure for varices. He comes to the hospital with worsening abdominal distention. He underwent ultrasound and showed a large amount of ascites. [facility] Medical History (Updated 03/28/21 @ 19:[address] Dodson Friend, DO) CKD (chronic kidney disease) stage 2, GFR 60-89 ml/min COPD (chronic obstructive pulmonary disease) CRF (chronic renal failure) Diabetes mellitus, type II EtOH dependence Fatty liver Gout Hepatic cirrhosis History of positive PPD, untreated HLD (hyperlipidemia) Hyperuricemia Macrocytic anemia Nicotine dependence Pancytopenia Portal hypertension with esophageal varices Thrombocytopenia Home Medications albuterol sulfate 1 - 2 puff INHALATION Q4H PRN PRN 02/27/17 [History Last Taken 05/07/19] mometasone-formoterol 2 puff IH BID PRN PRN 07/26/17 [History Last Taken 05/07/19] insulin lispro 40 mg SUBCUT TID 05/08/19 [History Last Taken 05/07/19] tamsulosin 0.4 mg PO DAILY 05/08/19 [History Last Taken 05/07/19] tiotropium bromide 2 puff IH DAILY 05/08/19 [History Last Taken 05/07/19] tizanidine 2 mg PO Q8H PRN PRN 05/08/19 [History Last Taken 05/07/19] duloxetine 30 mg capsule,delayed release mg PO 05/16/19 [History Last Taken Unknown] fluticasone propionate 50 mcg/actuation nasal spray,suspension 2 spray INTRANASAL DAILY 05/16/19 [History Last Taken Unknown] hydroxyzine pamoate 50 mg capsule 100 mg PO QHS cap 05/16/19 [History Last Taken Unknown] insulin glargine U-300 conc 300 unit/mL (3 mL) subcutaneous pen 5 unit SC DAILY 05/16/19 [History Last Taken Unknown] Allergy/AdvReac Type Severity Reaction Status Date / Time Penicillins Allergy Anaphylaxis Verified 03/28/21 11:56 ciprofloxacin [From Cipro] AdvReac Other Verified 03/28/21 11:56 Family History (Updated 03/28/21 @ 16:45 by Rene CASAREZ) Mother Cancer lung cancer Hypertension ETOH abuse Heart disease Brother Kidney disease Family History no significant family his Surgical History S/P TIPS (transjugular intrahepatic portosystemic shunt) Social History (Updated 03/28/21 @ 16:47 by Rene CASAREZ) Smoking Status: Current every day smoker tobacco type: cigarettes Smoking packs per day: 1.5 Smoking cigarettes per day: 30.0 Years smoked: 40 Smoking pack- years: 60.00 Tobacco: How many years used: 44 alcohol intake: current alcohol intake frequency: 3 or more drinks per day Alcohol type: beer ROS Constitutional Constitutional: Reports change in weight and weight gain Gastrointestinal Gastrointestinal: Reports other Details: Abdominal distention Physical Exam Const alert General Appearance: cooperative Orientation / Consciousness: oriented to person HEENT hearing grossly normal bilaterally Head and Scalp: normal to inspection Face and Sinus: face symmetric Nose: external nose normal Mouth: oral and palatal mucosa normal Eyes conjunctivae normal General Eye: normal appearance of both eyes Neck full ROM General: normal visual inspection Lymph Lymphatic: no lymphadenopathy noted Chest inspection of chest normal and palpation of chest normal Chest: symmetrical chest wall rise Resp normal respiratory effort Effort and Inspection: able to speak in complete sentences Cardio regular rate GI Inspection: fluid wave present Palpation: firm, hepatomegaly and splenomegaly Rectal Exam: deferred Neuro Speech: speech normal Gait (Neuro): normal gait Lab / Micro Data Result Diagrams: 03/28/21 12:00 03/28/21 12:00 Labs: Laboratory Results - last 24 hr 03/28/21 12:00: WBC 3.1 L, RBC 2.78 L, Hgb 7.9 L, Hct 23.5 L, MCV 84.5, MCH 28. 4, MCHC 33.6, RDW Std Deviation 46.7 H, RDW Coeff of Phylicia 15.7 H, Plt Count 66 L, MPV 9.4, Immature Gran % (Auto) 0.300, Neut % (Auto) 57.0, Lymph % (Auto) 28.7, [place] % (Auto) 10.5 H, Eos % (Auto) 2.2, Baso % (Auto) 1.3 H, Absolute Neuts (auto) 1.8 L, Absolute Lymphs (auto) 0.90, Nucleated RBC % 0, Platelet Estimate MOD DEC, Hypochromasia 1+, Anisocytosis 1+ 03/28/21 12:00: Sodium 121 L, Potassium 3.3 L, Chloride 83 L, Carbon Dioxide 25.0, Anion Gap 13, BUN 10, Creatinine 1.72 H, Estim Creat Clear Calc 51.28, Est GFR (MDRD) Af Amer 54 L, Est GFR (MDRD) Non-Af 44 L, BUN/Creatinine Ratio 5.8 L, Glucose 132 H, Calcium 8.2 L 03/28/21 12:00: Troponin I High Sens 23 03/28/21 12:00: Total Bilirubin 2.40 H, Direct Bilirubin 1.39 H, AST 113 H, ALT 28, Alkaline Phosphatase 156 H, Total Protein 7.1, Albumin 2.2 L, Globulin 4.9 H 03/28/21 12:00: Lipase 184 03/28/21 12:00: Ethyl Alcohol 56.0 03/28/21 12:00: PT 18.3 H, INR 1.6 03/28/21 14:59: Troponin I High Sens 20 03/28/21 14:59: Blood Type B POSITIVE, Antibody Screen NEGATIVE 03/28/21 18:50: Ammonia 45.0 H Micro: Microbiology 03/28/21 14:55 Stool Stool Occult Blood (MAGED) - Final Radiology Impression Chest X-Ray 03/28/21 12:11 IMPRESSION: Normal x-ray examination of the chest. Electronically Signed: Raad Mcdonough MD at 12:36 EST , Service support , Abdomen/Pelvis CT 03/28/21 13:06 IMPRESSION: Diffuse ascites. There is evidence of cirrhosis of the liver. Small gallstones. There is evidence of a TIPS Electronically Signed: Raad Mcdonough MD at 13:50 EST , Service support , Gallbladder Ultrasound 03/28/21 15:29 IMPRESSION: Fatty liver. Hepatic cirrhosis. Ascites. Gallstones. There is ringdown artifact in the gallbladder wall suggesting gallbladder wall calcifications. Porcelain gallbladder cannot be excluded. There is associated concern with Porcelain gallbladder and development of gallbladder carcinoma. Electronically Signed: Abimael Cortez MD at 18:21 EST , Service support , Assessment & Plan Assessment/Plan (1) Hepatic cirrhosis: PLAN: Patient has a history of alcoholic cirrhosis. He is not a tr ansplant candidate. I suspect that TIPS procedure was done for either decompression of esophageal or gastric varices. Patient said he is not have a history of ascites. He has clear ascites on exam and on imaging. He should undergo diagnostic and therapeutic paracentesis. (2) Porcelain gallbladder: PLAN: Per imaging radiologist suggest that there is a strong suspicion for gallbladder cancer. He should be seen by surgery. (3) Adult failure to thrive: PLAN: Failure to thrive secondary to alcoholism. (4) Alcoholic hepatitis: PLAN: Patient has a high MADRE score. However due to chronic kidney disease and the lack of encephalopathy I will not recommend steroids at this time. Charges/Coding Visit Charges Inpatient E&M: 58077 Init Hosp L3
--- NOTE | 2021-03-28 21:27 | PCS.PANDOC ---
PANDEMIC DOCUMENTATION INITIATED: Date: 12/02/2020 Time: 190
--- NOTE | 2021-03-28 21:59 | NURSING ---
this RN attempted to call pt's to verify pt's home med list as he states he does not know medications. no answer from .
[2021-03-28] MEDS: Lactulose 20 GM/30 ML UDC PO (22:14)
[2021-03-28] MEDS: Potassium Chloride Oral Tablet 20 MEQ 60 MEQ PO (22:14)
[2021-03-28] MEDS: MELATONIN 3 MG TABLET 5 MG PO (22:41)
[2021-03-29] VITALS (9 sets, daily range): BP systolic 109–127; BP diastolic 72–83; PULSE 88–105; RESP 16–20; TEMP 36.6–37.2; O2SAT 96–100
[2021-03-29] MEDS: Lactulose 20 GM/30 ML UDC PO ×3 (06:07→21:20)
[2021-03-29] MEDS: 0.9% Saline Lock 10 ML Syringe IV ×2 (06:07→10:16)
[2021-03-29 06:08] LABS: Absolute Lymphocyte Count 0.12 X10^3/uL (0.83-4.51); Absolute Neutrophil Count 1.3 X10^3/uL (2.0-7.7); Hematocrit 19.2 % (40-54); Hemoglobin 6.4 g/dL (13.0-16.5); Lymphocyte # 0.12 X10^3/ul (0.83-4.51); Lymphocyte % 8.2 % (19-41); Mean Corp Hgb Conc 33.3 g/dL (32-36); Mean Corpuscular Hgb 28.6 pg (27.0-32.0); Mean Corpuscular Volume 85.7 fL (80-94); Mean Platelet Vol. 9.8 fl (6.2-12.0); Monocyte# 0.09 X10^3/uL; Monocyte% 6.1 % (0-10); NRBC Flagged by Analyzer 0 % (0-5); Neutrophil # 1.25 X10^3/uL (2.7-7.7); POSITIVE COUNT YES; POSITIVE DIFFERENTIAL YES; RBC Distribution Width CV 16.2 % (11.6-14.6); RBC Distribution Width SD 49.1 fl (35.1-43.9); Red Blood Count 2.24 M/mm3 (4.6-6.2)
[2021-03-29 06:13] LABS: Differential Indicated SCAN CRITERIA MET; Platelet Count 28 K/mm3 (150-450); White Blood Count 1.5 K/mm3 (4.4-11.0)
[2021-03-29 06:41] LABS: ALB/GLOB Ratio 0.4 RATIO (0.9-2.4); AST(SGOT) 86 U/L (15-37); Alanine Aminotransfer ALT/SGPT 26 U/L (16-61); Albumin, Serum 1.8 g/dL (3.2-5.0); Alkaline Phosphatase 117 U/L (45-117); Anion Gap 13 (5-15); BUN 11 mg/dL (7-18); BUN/Creat Ratio 5.9 RATIO (10-20); Calcium,Total 7.9 mg/dL (8.5-10.1); Chloride 85 mmol/L (98-107); Creatinine, Serum 1.87 mg/dL (0.70-1.30); EST Glomerular Filtration Rate 40 mL/min (>60); Est Glom Filt Rate - Afr Amer 49 mL/min (>60); Estimated Creatinine Clearance 47.17 ml/min; Globulin 4.1 g/dL (2.2-4.2); Glucose 186 mg/dL (74-106); Potassium 4.1 mmol/L (3.5-5.1); Protein, Total 5.9 g/dL (6.4-8.2); Sodium Level 121 mmol/L (136-145)
[2021-03-29 07:04] LABS: Anisocytosis RARE; Differential Comment SCANNED; Hypochromasia 2+; Microcytosis RARE; Target Cells RARE
--- NOTE | 2021-03-29 09:24 | CASEMGMT ---
TERRI GILMORE Assessment: Face to Face with pt for initial transition planning/care coordination assessment. TERRI GILMORE introduced self and role at [facility], pt voices understanding and consents to assessment. Pt is A/O x4 and answers all questions appropriately at this time. Pt lying in bed with eyes closed, at bedside. Dr.Friend in room explaining severity of illness to at beginning of assessment. Care providers, pharmacy, and demographics verified/updated. Admitting Dx: Chest pain, cirrhosis PCP:Pt denies having PCP. Provided pt with a local healthcare provider directory. Specialists: Pt denies. [facility]erred [facility]acy: [facility] Insurance: [employer]ER Robb Prescription Benefit: yes LW/HPOA: Pt denies having a LW/DPOA and denies need for info regarding AD. LNOK: Avani Villafana, Living Arrangements: Pt lives with in a mobile home with 2 steps to enter. Pt reports he is I in ADL's and denies concerns at home. Transportation: Pt does not have a drivers license, transports pt to medical appts. DME/HHC/SNF: Pt has a cane and walker at home, he does not use except every once in awhile. Pt denies previous HHC or SNF stays. States he was in a SNF for approx 20 minutes. He and did not elaborate. Pt states he drinks 4 cans of beer per day, smokes 1.5 packs of cigarettes per day and denies use of street or illegal drugs. Pt states no concerns with going home at time of dc. He has fallen at home. Pt denies need for therapy at home or outpt. Pt would like pt to have therapy but he states he does not want it and was adamant about this. Pt states no further concerns/needs. CM to follow. Advised pt to ask CM if any further question/concerns/needs arise, voices understanding. Pt Goal: Home Plan: Home
[2021-03-29 09:45] LABS: Iron 44 ug/dL (65-175); Iron Binding Capacity,Total 307 ug/dL (250-450); PERCENT IRON SATURATION 14.3 % (15.0-55.0)
[2021-03-29 09:50] LABS: Immature Platelet Fraction 2.3 % (1.0-7.9); RET-HE 37.3 pg (30-35); Reticulocyte Count 3.24 % (0.5-1.5)
[2021-03-29 09:57] LABS: Platelet Count 25 K/mm3 (150-450)
--- NOTE | 2021-03-29 10:07 | EX.PCM.PN.GI ---
Subjective Subjective The patient is not showing any signs of DTs at this time. He has been sleeping a lot. He denies any nausea. He does complain of some abdominal distention but does not suffer from any shortness of breath. He is very weak and very fatigued. His is at the bedside. Objective Data Objective Data Vital Signs: Vital Signs Temp Pulse Resp BP Pulse Ox 98 F 102 H 20 H 127/79 H 98 03/29/21 09:48 03/29/21 09:48 03/29/21 09:48 03/29/21 09:48 03/29/21 09:48 Oxygen Delivery Method Room Air Weight: 241 lb 6.499 oz Body Mass Index (BMI) 34.6 Intake & Output: Intake and Output for Last 24 Hours 03/27/21 03/28/21 03/29/21 23:59 23:59 23:59 Intake Total 50.5 / 50.5 Balance 50.5 / 50.5 Lab / Micro Data Result Diagrams: 03/29/21 05:20 03/29/21 05:20 Labs: Laboratory Results - last 24 hr 03/28/21 12:00: WBC 3.1 L, RBC 2.78 L, Hgb 7.9 L, Hct 23.5 L, MCV 84.5, MCH 28.4, MCHC 33.6, RDW Std Deviation 46.7 H, RDW Coeff of Phylicia 15.7 H, Plt Count 66 L, MPV 9.4, Immature Gran % (Auto) 0.300, Neut % (Auto) 57.0, Lymph % (Auto) 28.7, Ware % (Auto) 10.5 H, Eos % (Auto) 2.2, Baso % (Auto) 1.3 H, Absolute Neuts (auto) 1.8 L, Absolute Lymphs (auto) 0.90, Nucleated RBC % 0, Diff Path Review May foll, Platelet Estimate MOD DEC, Hypochromasia 1+, Anisocytosis 1+ 03/28/21 12:00: Sodium 121 L, Potassium 3.3 L, Chloride 83 L, Carbon Dioxide 25.0, Anion Gap 13, BUN 10, Creatinine 1.72 H, Estim Creat Clear Calc 51.28, Est GFR (MDRD) Af Amer 54 L, Est GFR (MDRD) Non-Af 44 L, BUN/Creatinine Ratio 5.8 L, Glucose 132 H, Calcium 8.2 L 03/28/21 12:00: Troponin I High Sens 23 03/28/21 12:00: Total Bilirubin 2.40 H, Direct Bilirubin 1.39 H, AST 113 H, ALT 28, Alkaline Phosphatase 156 H, Total Protein 7.1, Albumin 2.2 L, Globulin 4.9 H 03/28/21 12:00: Lipase 184 03/28/21 12:00: Ethyl Alcohol 56.0 03/28/21 12:00: PT 18.3 H, INR 1.6 03/28/21 14:59: Troponin I High Sens 20 03/28/21 14:59: Blood Type B POSITIVE, Antibody Screen NEGATIVE 03/28/21 14:59: Crossmatch See Detail 03/28/21 18:50: Ammonia 45.0 H 03/29/21 05:20: WBC 1.5 L, RBC 2.24 L, Hgb 6.4 L, Hct 19.2 L, MCV 85.7, MCH 28.6, MCHC 33.3, RDW Std Deviation 49.1 H, RDW Coeff of Phylicia 16.2 H, Plt Count 28 L*, MPV 9.8, Immature Gran % (Auto) 0.700, Neut % (Auto) 85.0 H, Lymph % (Auto) 8.2 L, Ware % (Auto) 6.1, Eos % (Auto) 0.0, Baso % (Auto) 0.0, Absolute Neuts (auto) 1.3 L, Absolute Lymphs (auto) 0.12 L, Nucleated RBC % 0, Differential Comment SCANNED, Diff Path Review May foll, Hypochromasia 2+, Anisocytosis RARE, Microcytosis RARE, Target Cells RARE 03/29/21 05:20: Sodium 121 L, Potassium 4.1, Chloride 85 L, Carbon Dioxide 23.0, Anion Gap 13, BUN 11, Creatinine 1.87 H, Estim Creat Clear Calc 47.17, Est GFR (MDRD) Af Amer 49 L, Est GFR (MDRD) Non-Af 40 L, BUN/Creatinine Ratio 5.9 L, Glucose 186 H, Calcium 7.9 L, Total Bilirubin 2.50 H, AST 86 H, ALT 26, Alkaline Phosphatase 117, Total Protein 5.9 L, Albumin 1.8 L, Globulin 4.1, Albumin/Globulin Ratio 0.4 L 03/29/21 05:20: Iron 44 L, TIBC 307, Iron Saturation 14.3 L, Folate 1.60 L 03/29/21 09:25: Immature Plt Fraction 2.3, Retic Count 3.24 H, Immature Retic Fraction 15.10, Retic Hgb Equivalent 37.3 H Micro: Microbiology 03/28/21 14:55 Stool Stool Occult Blood (MAGED) - Final Radiography Diagnostic Testing: Radiology Impression Chest X-Ray 03/28/21 12:11 IMPRESSION: Normal x-ray examination of the chest. Electronically Signed: Raad Mcdonough MD at 12:36 EST , Service support , Abdomen/Pelvis CT 03/28/21 13:06 IMPRESSION: Diffuse ascites. There is evidence of cirrhosis of the liver. Small gallstones. There is evidence of a TIPS Electronically Signed: Raad Mcdonough MD at 13:50 EST , Service support , Gallbladder Ultrasound 03/28/21 15:29 IMPRESSION: Fatty liver. Hepatic cirrhosis. Ascites. Gallstones. There is ringdown artifact in the gallbladder wall suggesting gallbladder wall calcifications. Porcelain gallbladder cannot be excluded. There is associated concern with Porcelain gallbladder and development of gallbladder carcinoma. Electronically Signed: Abimael Cortez MD at 18:21 EST , Service support , Physical Exam Const alert General Appearance: cooperative Orientation / Consciousness: oriented to person HEENT hearing grossly normal bilaterally Head and Scalp: normal to inspection Face and Sinus: face symmetric Nose: external nose normal Mouth: oral and palatal mucosa normal Eyes conjunctivae normal General Eye: normal appearance of both eyes Neck full ROM General: normal visual inspection Lymph Lymphatic: no lymphadenopathy noted Chest inspection of chest normal and palpation of chest normal Chest: symmetrical chest wall rise Resp normal respiratory effort Effort and Inspection: able to speak in complete sentences Cardio regular rate GI non-distended GI Narrative: Less abdominal distention. Still with positive fluid wave. Percussion: normal to percussion Rectal Exam: deferred Neuro Speech: speech normal Gait (Neuro): normal gait Assessment & Plan Assessment/Plan (1) Porcelain gallbladder: PLAN: Patient will need to be seen by surgery regarding this finding of porcelain gallbladder. (2) Alcoholic hepatitis: PLAN: Patient is not overtly encephalopathic at this time and would not benefit from steroids despite the fact that his MADRE score is above 32 (3) Hepatic cirrhosis: PLAN: This is secondary to alcohol. Patient continues to drink. [facility] (4) Ascites: PLAN: Patient will need a diagnostic paracentesis to look for signs of SBP, cytology, peritoneal hemorrhage as an explanation for his new onset ascites and decrease in hemoglobin (5) Hyponatremia: PLAN: Secondary to hypervolemia from alcohol. Sodium restriction. (6) Thrombocytopenia: PLAN: We will have to keep an eye on his low platelet count. This is likely from alcohol toxicity to the bone marrow along with splenic sequestration from splenomegaly as a result of portal hypertension
[2021-03-29 10:16] LABS: Prothrombin Time (Protime)PT. 21.8 SECONDS (11.7-14.9)
[2021-03-29] MEDS: Spironolactone 25 MG Tablet PO (10:16)
[2021-03-29] MEDS: Furosemide 40 MG/4 ML Vial IV ×2 (10:16→15:41)
[2021-03-29] MEDS: Folic Acid 1 MG Tablet PO (10:26)
[2021-03-29] MEDS: hydrOXYzine PAM 25 MG Capsule 50 MG PO (10:26)
[2021-03-29] MEDS: Thiamine Hydrochloride 100 MG Tablet PO (10:26)
--- NOTE | 2021-03-29 10:35 | CON.PCM.SX_ITS ---
Assessment & Plan Assessment/Plan (1) Porcelain gallbladder: PLAN: At this point I really do not think this is sales [employer] of gallbladder cancer. He will however have to be evaluated at a tertiary referral center once he is discharged from [facility]. Candidate is not a surgical candidate here secondary to his multiple comorbidities. HPI Consult Data Date of Consult: 03/29/21 HPI Narrative HPI Narrative: MARÍA HANLEY, is a 55 M who presents to the ED at [facility] on 03/28/2021 with a chief complaint of progressively worsening abdominal and lower extremity swelling. Patient reports that for the past 2 weeks his abdomen and lower extremities have gotten progressively more swollen. Patient's also reports that in the past month patient has been having increasing difficulty with not taking care of himself and has stopped taking his home medications, partially because he does not want to take his diabetic medications because it is a pain in the butt but also because he is ran out of his home medications due to having no primary care doctor. Patient's past medical history is significant for cirrhosis with prior TIPS procedure. Denies chest pain, shortness of breath, palpitations, hemoptysis, sputum production, fever, chills, N/V/D. Vital signs in the ED are temperature of 98.7 ?F, HR of 105, BP of 153/86, RR of 24 and patient is currently satting 98% on room air. CBC demonstrates WBCs at 3.1, hemoglobin of 7.9 and platelets are at 66. BMP shows sodium 121, potassium 3.3, creatinine at 1.7, calcium of 8.2, total bili of 2.4, AST of 113, ALT of 28 and alk phos at 156, albumin is 2.2. Ethyl alcohol is 56. Chest x-ray was unremarkable. CT of the abdomen/pelvis demonstrates diffuse ascites, evidence of cirrhotic liver, gallstones and evidence of prior TIPS. Patient was given breathing treatments, steroids and phytonadione in the ED. Since being admitted he does complain of some slight tenderness in the left upper quadrant. No shortness of breath he has had no signs of DTs. [facility] Medical History Ascites CKD (chronic kidney disease) stage 2, GFR 60-89 ml/min COPD (chronic obstructive pulmonary disease) CRF (chronic renal failure) Diabetes mellitus, type II EtOH dependence Fatty liver Gout Hepatic cirrhosis History of positive PPD, untreated HLD (hyperlipidemia) Hyperuricemia Macrocytic anemia Nicotine dependence Pancytopenia Portal hypertension with esophageal varices Thrombocytopenia Home Medications albuterol sulfate 1 - 2 puff INHALATION Q4H PRN PRN 02/27/17 [History Last Taken 05/07/19] mometasone-formoterol 2 puff IH BID PRN PRN 07/26/17 [History Last Taken 05/07/19] insulin lispro 40 mg SUBCUT TID 05/08/19 [History Last Taken 05/07/19] tamsulosin 0.4 mg PO DAILY 05/08/19 [History Last Taken 05/07/19] tiotropium bromide 2 puff IH DAILY 05/08/19 [History Last Taken 05/07/19] tizanidine 2 mg PO Q8H PRN PRN 05/08/19 [History Last Taken 05/07/19] duloxetine 30 mg capsule,delayed release mg PO 05/16/19 [History Last Taken Unknown] fluticasone propionate 50 mcg/actuation nasal spray,suspension 2 spray INTRANASAL DAILY 05/16/19 [History Last Taken Unknown] hydroxyzine pamoate 50 mg capsule 100 mg PO QHS cap 05/16/19 [History Last Taken Unknown] insulin glargine U-300 conc 300 unit/mL (3 mL) subcutaneous pen 5 unit SC DAILY 05/16/19 [History Last Taken Unknown] Allergy/AdvReac Type Severity Reaction Status Date / Time Penicillins Allergy Anaphylaxis Verified 03/28/21 11:56 ciprofloxacin [From Cipro] AdvReac Other Verified 03/28/21 11:56 Family History Mother Cancer lung cancer Hypertension ETOH abuse Heart disease Brother Kidney disease Family History no significant family his Surgical History S/P TIPS (transjugular intrahepatic portosystemic shunt) Social History Smoking Status: Current every day smoker tobacco type: cigarettes Tobacco: How many years used: 44 alcohol intake: current alcohol intake frequency: 3 or more drinks per day Alcohol type: beer ROS Cardiovascular Cardiovascular: Denies chest pain Respiratory/Chest Respiratory/Chest: Denies cough Gastrointestinal Gastrointestinal: Reports abdominal pain; Denies coffee ground emesis, melena, nausea, rectal bleeding or vomiting Physical Exam Const alert, oriented x3 and no apparent distress General Appearance: cooperative HEENT normocephalic and head/scalp atraumatic Eyes PERRL and EOMs intact bilaterally Resp normal respiratory effort and clear to auscultation bilaterally Cardio Rate: regular rate Rhythm: regular rhythm GI non-tender Palpation: ascites; Negative for tender, guarding or hernia Lab / Micro Data Result Diagrams: 03/29/21 05:20 03/29/21 05:20 Labs: Laboratory Results - last 24 hr 03/28/21 12:00: WBC 3.1 L, RBC 2.78 L, Hgb 7.9 L, Hct 23.5 L, MCV 84.5, MCH 28.4, MCHC 33.6, RDW Std Deviation 46.7 H, RDW Coeff of Phylicia 15.7 H, Plt Count 66 L, MPV 9.4, Immature Gran % (Auto) 0.300, Neut % (Auto) 57.0, Lymph % (Auto) 28.7, Desha % (Auto) 10.5 H, Eos % (Auto) 2.2, Baso % (Auto) 1.3 H, Absolute Neuts (auto) 1.8 L, Absolute Lymphs (auto) 0.90, Nucleated RBC % 0, Diff Path R samantha gomez, Platelet Estimate MOD DEC, Hypochromasia 1+, Anisocytosis 1+ 03/28/21 12:00: Sodium 121 L, Potassium 3.3 L, Chloride 83 L, Carbon Dioxide 25.0, Anion Gap 13, BUN 10, Creatinine 1.72 H, Estim Creat Clear Calc 51.28, Est GFR (MDRD) Af Amer 54 L, Est GFR (MDRD) Non-Af 44 L, BUN/Creatinine Ratio 5.8 L, Glucose 132 H, Calcium 8.2 L 03/28/21 12:00: Troponin I High Sens 23 03/28/21 12:00: Total Bilirubin 2.40 H, Direct Bilirubin 1.39 H, AST 113 H, ALT 28, Alkaline Phosphatase 156 H, Total Protein 7.1, Albumin 2.2 L, Globulin 4.9 H 03/28/21 12:00: Lipase 184 03/28/21 12:00: Ethyl Alcohol 56.0 03/28/21 12:00: PT 18.3 H, INR 1.6 03/28/21 14:59: Troponin I High Sens 20 03/28/21 14:59: Blood Type B POSITIVE, Antibody Screen NEGATIVE 03/28/21 14:59: Crossmatch See Detail 03/28/21 18:50: Ammonia 45.0 H 03/29/21 05:20: WBC 1.5 L, RBC 2.24 L, Hgb 6.4 L, Hct 19.2 L, MCV 85.7, MCH 28.6, MCHC 33.3, RDW Std Deviation 49.1 H, RDW Coeff of Phylicia 16.2 H, Plt Count 28 L*, MPV 9.8, Immature Gran % (Auto) 0.700, Neut % (Auto) 85.0 H, Lymph % (Auto) 8.2 L, Desha % (Auto) 6.1, Eos % (Auto) 0.0, Baso % (Auto) 0.0, Absolute Neuts (auto) 1.3 L, Absolute Lymphs (auto) 0.12 L, Nucleated RBC % 0, Differential Comment SCANNED, Diff Path Review May foll, Hypochromasia 2+, Anisocytosis RARE, Microcytosis RARE, Target Cells RARE 03/29/21 05:20: Sodium 121 L, Potassium 4.1, Chloride 85 L, Carbon Dioxide 23.0, Anion Gap 13, BUN 11, Creatinine 1.87 H, Estim Creat Clear Calc 47.17, Est GFR (MDRD) Af Amer 49 L, Est GFR (MDRD) Non-Af 40 L, BUN/Creatinine Ratio 5.9 L, Glucose 186 H, Calcium 7.9 L, Total Bilirubin 2.50 H, AST 86 H, ALT 26, Alkaline Phosphatase 117, Total Protein 5.9 L, Albumin 1.8 L, Globulin 4.1, Albumin/Globulin Ratio 0.4 L 03/29/21 05:20: Iron 44 L, TIBC 307, Iron Saturation 14.3 L, Folate 1.60 L 03/29/21 09:25: Immature Plt Fraction 2.3, Retic Count 3.24 H, Immature Retic Fraction 15.10, Retic Hgb Equivalent 37.3 H 03/29/21 09:25: PT 21.8 H, INR 2.0 Micro: Microbiology 03/28/21 14:55 Stool Stool Occult Blood (MAGED) - Final Radiology Impression Chest X-Ray 03/28/21 12:11 IMPRESSION: Normal x-ray examination of the chest. Electronically Signed: Raad Mcdonough MD at 12:36 EST , Service support , Abdomen/Pelvis CT 03/28/21 13:06 IMPRESSION: Diffuse ascites. There is evidence of cirrhosis of the liver. Small gallstones. There is evidence of a TIPS Electronically Signed: Raad Mcdonough MD at 13:50 EST , Service support , Gallbladder Ultrasound 03/28/21 15:29 IMPRESSION: Fatty liver. Hepatic cirrhosis. Ascites. Gallstones. There is ringdown artifact in the gallbladder wall suggesting gallbladder wall calcifications. Porcelain gallbladder cannot be excluded. There is associated concern with Porcelain gallbladder and development of gallbladder carcinoma. Electronically Signed: Abimael Cortez MD at 18:21 EST , Service support ,
[2021-03-29 11:39] LABS: Hematocrit 19.2 % (40-54); Hemoglobin 6.5 g/dL (13.0-16.5)
--- NOTE | 2021-03-29 11:52 | PCM.PN.HOSP ---
Documented by User: Rene CASAREZ 03/29/21 12:10 Subjective Subjective Patient is a 55-year-old male lying in bed, alert and orient x3. Patient denies development of any new symptoms overnight. Does not appear in acute distress. Objective Data Objective Data Vital Signs: Vital Signs Temp Pulse Resp BP Pulse Ox 98 F 102 H 20 H 127/79 H 98 03/29/21 09:48 03/29/21 09:48 03/29/21 09:48 03/29/21 09:48 03/29/21 09:48 Oxygen Delivery Method Room Air Weight: 241 lb 6.499 oz Body Mass Index (BMI) 34.6 Intake & Output: Intake and Output for Last 24 Hours 03/27/21 03/28/21 03/29/21 23:59 23:59 23:59 Intake Total 50.5 / 50.5 110 / 110 Balance 50.5 / 50.5 110 / 110 Lab / Micro Data Result Diagrams: 03/29/21 11:27 03/29/21 05:20 Labs: Laboratory Results - last 24 hr 03/28/21 12:00: WBC 3.1 L, RBC 2.78 L, Hgb 7.9 L, Hct 23.5 L, MCV 84.5, MCH 28.4, MCHC 33.6, RDW Std Deviation 46.7 H, RDW Coeff of Phylicia 15.7 H, Plt Count 66 L, MPV 9.4, Immature Gran % (Auto) 0.300, Neut % (Auto) 57.0, Lymph % (Auto) 28.7, Bullock % (Auto) 10.5 H, Eos % (Auto) 2.2, Baso % (Auto) 1.3 H, Absolute Neuts (auto) 1.8 L, Absolute Lymphs (auto) 0.90, Nucleated RBC % 0, Diff Path Review May foll, Platelet Estimate MOD DEC, Hypochromasia 1+, Anisocytosis 1+ 03/28/21 12:00: Sodium 121 L, Potassium 3.3 L, Chloride 83 L, Carbon Dioxide 25.0, Anion Gap 13, BUN 10, Creatinine 1.72 H, Estim Creat Clear Calc 51.28, Est GFR (MDRD) Af Amer 54 L, Est GFR (MDRD) Non-Af 44 L, BUN/Creatinine Ratio 5.8 L, Glucose 132 H, Calcium 8.2 L 03/28/21 12:00: Troponin I High Sens 23 03/28/21 12:00: Total Bilirubin 2.40 H, Direct Bilirubin 1.39 H, AST 113 H, ALT 28, Alkaline Phosphatase 156 H, Total Protein 7.1, Albumin 2.2 L, Globulin 4.9 H 03/28/21 12:00: Lipase 184 03/28/21 12:00: Ethyl Alcohol 56.0 03/28/21 12:00: PT 18.3 H, INR 1.6 03/28/21 14:59: Troponin I High Sens 20 03/28/21 14:59: Blood Type B POSITIVE, Antibody Screen NEGATIVE 03/28/21 14:59: Crossmatch See Detail 03/28/21 18:50: Ammonia 45.0 H 03/29/21 05:20: WBC 1.5 L, RBC 2.24 L, Hgb 6.4 L, Hct 19.2 L, MCV 85.7, MCH 28.6, MCHC 33.3, RDW Std Deviation 49.1 H, RDW Coeff of Phylicia 16.2 H, Plt Count 28 L*, MPV 9.8, Immature Gran % (Auto) 0.700, Neut % (Auto) 85.0 H, Lymph % (Auto) 8.2 L, Bullock % (Auto) 6.1, Eos % (Auto) 0.0, Baso % (Auto) 0.0, Absolute Neuts (auto) 1.3 L, Absolute Lymphs (auto) 0.12 L, Nucleated RBC % 0, Differential Comment SCANNED, Diff Path Review May foll, Hypochromasia 2+, Anisocytosis RARE, Microcytosis RARE, Target Cells RARE 03/29/21 05:20: Sodium 121 L, Potassium 4.1, Chloride 85 L, Carbon Dioxide 23.0, Anion Gap 13, BUN 11, Creatinine 1.87 H, Estim Creat Clear Calc 47.17, Est GFR (MDRD) Af Amer 49 L, Est GFR (MDRD) Non-Af 40 L, BUN/Creatinine Ratio 5.9 L, Glucose 186 H, Calcium 7.9 L, Total Bilirubin 2.50 H, AST 86 H, ALT 26, Alkaline Phosphatase 117, Total Protein 5.9 L, Albumin 1.8 L, Globulin 4.1, Albumin/Globulin Ratio 0.4 L 03/29/21 05:20: Iron 44 L, TIBC 307, Iron Saturation 14.3 L, Folate 1.60 L 03/29/21 09:25: Immature Plt Fraction 2.3, Retic Count 3.24 H, Immature Retic Fraction 15.10, Retic Hgb Equivalent 37.3 H 03/29/21 09:25: PT 21.8 H, INR 2.0 03/29/21 11:27: Hgb 6.5 L, Hct 19.2 L Micro: Microbiology 03/28/21 14:55 Stool Stool Occult Blood (MAGED) - Final Radiography Diagnostic Testing: Radiology Impression Chest X-Ray 03/28/21 12:11 IMPRESSION: Normal x-ray examination of the chest. Electronically Signed: Raad Mcdonough MD at 12:36 EST , Service support , Abdomen/Pelvis CT 03/28/21 13:06 IMPRESSION: Diffuse ascites. There is evidence of cirrhosis of the liver. Small gallstones. There is evidence of a TIPS Electronically Signed: Raad Mcdonough MD at 13:50 EST , Service support , Gallbladder Ultrasound 03/28/21 15:29 IMPRESSION: Fatty liver. Hepatic cirrhosis. Ascites. Gallstones. There is ringdown artifact in the gallbladder wall suggesting gallbladder wall calcifications. Porcelain gallbladder cannot be excluded. There is associated concern with Porcelain gallbladder and development of gallbladder carcinoma. Electronically Signed: Abimael Cortez MD at 18:21 EST , Service support , Physical Exam Const alert, oriented x3 and no apparent distress HEENT head/scalp atraumatic and moist oral mucous membranes Head and Scalp: normocephalic Eyes PERRL, EOMs intact bilaterally and conjunctivae normal Neck no lymphadenopathy, supple and no JVD Resp normal respiratory effort, no retractions, no use of accessory muscles and clear to auscultation bilaterally Cardio regular rhythm, no murmurs and no JVD Rate: tachycardic GI Inspection: edema findings and abdominal distention Palpation: rigid Extremity normal to inspection, full ROM and no clubbing, cyanosis or edema Skin General Skin Exam: jaundice Neuro CN's II-XII intact bilaterally Psych affect normal Assessment & Plan Assessment/Plan (1) Thrombocytopenia: (2) Hyponatremia: (3) Ascites: (4) Alcoholic hepatitis: (5) Porcelain gallbladder: (6) Adult failure to thrive: PLAN: Day 1 Discharge planning: To be determined. 1) alcoholic hepatitis with hepatic cirrhosis and ascites. GI consulted and would like to proceed with a paracentesis to look for signs of spontaneous bacterial peritonitis as well as assess for peritoneal hemorrhage due to new onset ascites and decreased hemoglobin. Continue with PPI and albumin infusion, initiated meropenem. 2) pancytopenia WBCs at 1.5, hemoglobin is 6.4 and platelets at 28,000. To be transfused 1 unit of PRBCs. GI believes this is a result of alcohol toxicity and splenic sequestration due to portal hypertension. We will continue to monitor. 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 4) hyponatremia Stable at 121. Likely due to hypervolemia from alcohol. Proceed with sodium restriction and spironolactone. 5) COPD exacerbation Not in acute exacerbation. Patient and patient's unaware of what medications he takes at home, will bring in med list tomorrow. Initiate duo nebs and albuterol. 6) LIANE on CKD stage II Creatinine currently 1.7, baseline appears between 1.5 and 2. Continue to monitor BMP. 7) DM2 Continue Accu-Cheks with sliding scale insulin. DVT prophylaxis - SCD's Patient seen by Rene Short PA-C, under the supervision of Dr. Garza. Documented by User: Dr. Kadi Garza MD 03/29/21 15:27 Objective Data Lab / Micro Data Result Diagrams: 03/29/21 11:27 03/29/21 05:20 Charges/Coding Addendum Addendum: This patient was seen in conjunction with HERMELINDO Weathers. I have independently interviewed and examined the patient and reviewed pertinent historical, laboratory, and other data. Please refer to HERMELINDO Weathers's note for his patient's presentation, findings, and recommendations. I have reviewed and his note and concur with his documentation Patient was seen and examined. He denies any new complains. Paracentesis planned for today by GI. Physical Exam: Gen: Looks in some discomfort, mildly jaundiced, not pale, not jaundiced CVS:HS I +II, regular, no murmurs RESP: Diminished at lung bases GI: Gross abdominal distention, ascites++, no ballotable organ EXT:No edema ASSESSMENT: 1. Ascites, questionable new onset 2. Liver cirrhosis, status post TIPS 3. Anemia 4. Thrombocytopenia, worsening 5. Hypokalemia 6. History of alcohol use disorder 7. Type II DM 8. Abnormal ultrasound 9. Anemia Plan: Check iron stores Transfuse 1 unit of pRbC Start empiric ceftriaxone IV PPI twice daily Repeat blood work in am Visit Charges Inpatient E&M: 06186 Subs Hosp L2
[2021-03-29] MEDS: Albumin Human 25% (100 mL) 25 GM/100 ML BAG IV ×3 (12:25→23:52)
[2021-03-29] MEDS: Ipratropium/Albuterol Sulfate 3 ML AMPUL.NEB INHALATION ×2 (14:30→21:29)
[2021-03-29] MEDS: Phenobarbital 32.4 MG Tablet 64.8 MG PO ×3 (15:40→23:52)
[2021-03-29 17:25] LABS: Bedside Glucose 136 mg/dL (70-110)
[2021-03-29 17:49] LABS: Hematocrit 20.5 % (40-54); Hemoglobin 6.9 g/dL (13.0-16.5)
[2021-03-29 22:10] LABS: Bedside Glucose 127 mg/dL (70-110)
[2021-03-29 23:36] LABS: Hematocrit 19.6 % (40-54); Hemoglobin 6.6 g/dL (13.0-16.5)
[2021-03-30] VITALS (13 sets, daily range): BP systolic 106–146; BP diastolic 61–90; PULSE 94–104; RESP 16–24; TEMP 36.6–37.9; O2SAT 93–99
[2021-03-30] MEDS: Albuterol 2.5 MG/3 ML VIAL.NEB. INHALATION ×2 (02:21→13:52)
[2021-03-30] MEDS: Phenobarbital 32.4 MG Tablet 64.8 MG PO ×6 (03:40→22:55)
[2021-03-30] MEDS: Albumin Human 25% (100 mL) 25 GM/100 ML BAG IV ×4 (04:55→22:55)
[2021-03-30 05:59] LABS: Absolute Lymphocyte Count 0.38 X10^3/uL (0.83-4.51); Absolute Neutrophil Count 1.2 X10^3/uL (2.0-7.7); Eosinophil# 0.02 X10^3/uL; Eosinophils% 1.2 % (0-5); Hematocrit 18.3 % (40-54); Hemoglobin 6.1 g/dL (13.0-16.5); Lymphocyte # 0.38 X10^3/ul (0.83-4.51); Lymphocyte % 22.1 % (19-41); Mean Corp Hgb Conc 33.3 g/dL (32-36); Mean Corpuscular Hgb 28.9 pg (27.0-32.0); Mean Corpuscular Volume 86.7 fL (80-94); Mean Platelet Vol. 10.5 fl (6.2-12.0); Monocyte# 0.16 X10^3/uL; Monocyte% 9.3 % (0-10); NRBC Flagged by Analyzer 0 % (0-5); Neutrophil # 1.16 X10^3/uL (2.7-7.7); Neutrophil % 67.4 % (47-70); POSITIVE COUNT YES; POSITIVE DIFFERENTIAL YES; Platelet Count 24 K/mm3 (150-450); RBC Distribution Width CV 16.6 % (11.6-14.6); RBC Distribution Width SD 49.8 fl (35.1-43.9); Red Blood Count 2.11 M/mm3 (4.6-6.2); White Blood Count 1.7 K/mm3 (4.4-11.0)
[2021-03-30 06:02] LABS: Differential Indicated SCAN CRITERIA MET
[2021-03-30 06:24] LABS: ALB/GLOB Ratio 0.8 RATIO (0.9-2.4); AST(SGOT) 70 U/L (15-37); Alanine Aminotransfer ALT/SGPT 23 U/L (16-61); Albumin, Serum 2.7 g/dL (3.2-5.0); Alkaline Phosphatase 101 U/L (45-117); Anion Gap 10 (5-15); BUN 14 mg/dL (7-18); BUN/Creat Ratio 7.5 RATIO (10-20); Calcium,Total 8.2 mg/dL (8.5-10.1); Chloride 92 mmol/L (98-107); Creatinine, Serum 1.86 mg/dL (0.70-1.30); EST Glomerular Filtration Rate 41 mL/min (>60); Est Glom Filt Rate - Afr Amer 49 mL/min (>60); Estimated Creatinine Clearance 47.42 ml/min; Globulin 3.5 g/dL (2.2-4.2); Glucose 108 mg/dL (74-106); Potassium 3.3 mmol/L (3.5-5.1); Protein, Total 6.2 g/dL (6.4-8.2); Sodium Level 129 mmol/L (136-145)
[2021-03-30 06:56] LABS: Bedside Glucose 112 mg/dL (70-110)
[2021-03-30] MEDS: Spironolactone 25 MG Tablet PO (08:52)
[2021-03-30] MEDS: Folic Acid 1 MG Tablet PO (08:52)
[2021-03-30] MEDS: Thiamine Hydrochloride 100 MG Tablet PO (08:52)
[2021-03-30] MEDS: Furosemide 40 MG/4 ML Vial IV ×3 (09:02→18:45)
[2021-03-30] MEDS: hydrOXYzine PAM 25 MG Capsule 50 MG PO (09:02)
[2021-03-30 10:07] LABS: HEPATITIS B SURFACE AG Negative (Negative); Hepatitis A IgM Antibody Negative (Negative); Hepatitis B Core AB IgM Negative (Negative)
[2021-03-30 11:36] LABS: Bedside Glucose 124 mg/dL (70-110)
[2021-03-30] MEDS: Ferrous Sulfate 325 MG Tablet PO (11:53)
--- NOTE | 2021-03-30 12:25 | PCM.PN.HOSP ---
Documented by User: Rene CASAREZ 03/30/21 12:40 Subjective Subjective Patient is a 55-year-old male lying in bed, alert and orient x3. Patient denies development of any new symptoms overnight. Does not appear in acute distress. Objective Data Objective Data Vital Signs: Vital Signs Temp Pulse Resp BP Pulse Ox 100.2 F H 100 20 H 118/75 96 03/30/21 10:50 03/30/21 10:50 03/30/21 10:50 03/30/21 10:50 03/30/21 10:50 Oxygen Delivery Method Room Air Weight: 235 lb 3.732 oz Body Mass Index (BMI) 34.6 Intake & Output: Intake and Output for Last 24 Hours 03/28/21 03/29/21 03/30/21 23:59 23:59 23:59 Intake Total 50.5 / 50.5 1480 / 1480 1590 / 1590 Balance 50.5 / 50.5 1480 / 1480 1590 / 1590 Lab / Micro Data Result Diagrams: 03/30/21 05:16 03/30/21 05:16 Labs: Laboratory Results - last 24 hr 03/28/21 14:59: Crossmatch See Detail 03/28/21 14:59: Crossmatch See Detail 03/29/21 17:13: POC Glucose 136 H 03/29/21 17:31: Hgb 6.9 L, Hct 20.5 L 03/29/21 21:22: POC Glucose 127 H 03/29/21 23:16: Hgb 6.6 L, Hct 19.6 L 03/30/21 05:16: WBC 1.7 L, RBC 2.11 L, Hgb 6.1 L, Hct 18.3 L, MCV 86.7, MCH 28.9, MCHC 33.3, RDW Std Deviation 49.8 H, RDW Coeff of Phylicia 16.6 H, Plt Count 24 L*, MPV 10.5, Immature Gran % (Auto) 0.000, Neut % (Auto) 67.4, Lymph % (Auto) 22.1, [place] % (Auto) 9.3, Eos % (Auto) 1.2, Baso % (Auto) 0.0, Absolute Neuts (auto) 1.2 L, Absolute Lymphs (auto) 0.38 L, Nucleated RBC % 0, Diff Path Review August03/30/21 05:16: Sodium 129 L, Potassium 3.3 L, Chloride 92 L, Carbon Dioxide 27.0, Anion Gap 10, BUN 14, Creatinine 1.86 H, Estim Creat Clear Calc 47.42, Est GFR (MDRD) Af Amer 49 L, Est GFR (MDRD) Non-Af 41 L, BUN/Creatinine Ratio 7.5 L, Glucose 108 H, Calcium 8.2 L, Total Bilirubin 2.60 H, AST 70 H, ALT 23, Alkaline Phosphatase 101, Total Protein 6.2 L, Albumin 2.7 L, Globulin 3.5, Albumin/Globulin Ratio 0.8 L 03/30/21 06:36: POC Glucose 112 H 03/30/21 11:15: POC Glucose 124 H Micro: Microbiology 03/28/21 14:55 Stool Stool Occult Blood (MAGED) - Final Physical Exam Const alert, oriented x3 and no apparent distress HEENT head/scalp atraumatic and moist oral mucous membranes Head and Scalp: normocephalic Eyes PERRL, EOMs intact bilaterally and conjunctivae normal Neck no lymphadenopathy, supple and no JVD Resp normal respiratory effort, no retractions, no use of accessory muscles and clear to auscultation bilaterally Cardio regular rate, regular rhythm, no murmurs and no JVD GI Inspection: abdominal distention Palpation: firm Extremity normal to inspection, full ROM and no clubbing, cyanosis or edema Peripheral Pulses: Yes pulses 2+ throughout Skin no rashes or lesions noted, no wounds and skin turgor normal Neuro CN's II-XII intact bilaterally Psych affect normal Assessment & Plan Assessment/Plan (1) Thrombocytopenia: (2) Hyponatremia: (3) Ascites: (4) Alcoholic hepatitis: (5) Adult failure to thrive: (6) Hepatic cirrhosis: PLAN: Day 2 Discharge planning: To be determined. 1) alcoholic hepatitis with hepatic cirrhosis and ascites. GI consulted and would like to proceed with a paracentesis to look for signs of spontaneous bacterial peritonitis as well as assess for peritoneal hemorrhage due to new onset ascites and decreased hemoglobin. Ammonia level 45, although patient is not encephalopathic. Continue with PPI and albumin infusion, initiated meropenem, continue Lacutulose. 2) pancytopenia WBCs at 1.7, hemoglobin is 6.1 and platelets at 24,000. To be transfused 2 units of PRBC's on 03/30/21. GI believes this is a result of alcohol toxicity and splenic sequestration due to portal hypertension. Continue to monitor CBC. 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 4) hyponatremia Stable at 129. Likely due to hypervolemia from alcohol. Continue to monitor. 5) Hypokalemia Potassium currently 3.3. Oral replacement ordered, continue to monitor BMP, continue with spironolactone. 56 COPD exacerbation Not in acute exacerbation. Patient and patient's unaware of what medications he takes at home, will bring in med list tomorrow. Initiate duo nebs and albuterol. 7) LIANE on CKD stage II Creatinine currently 1.8, baseline appears between 1.5 and 2. Continue to monitor BMP. 8) DM2 Continue Accu-Cheks with sliding scale insulin. DVT prophylaxis - SCD's Patient seen by Rene Short PA-C, under the supervision of Dr. Garza. Documented by User: Dr. Kadi Garza MD 03/30/21 14:20 Objective Data Lab / Micro Data Result Diagrams: 03/30/21 05:16 03/30/21 05:16 Charges/Coding Addendum Addendum: This patient was seen in conjunction with HERMELINDO Weathers. I have independently interviewed and examined the patient and reviewed pertinent historical, laboratory, and other data. Please refer to HERMELINDO Weathers's note for his patient's presentation, findings, and recommendations. I have reviewed and his note and concur with his documentation Patient was seen and examined. He denies any new complains. His hemoglobin dropped further. He denied any Hematemesis or Hematochezia Physical Exam: Gen: Looks in some discomfort, mildly jaundiced, not pale, not jaundiced CVS:HS I +II, regular, no murmurs RESP: Diminished at lung bases GI: Gross abdominal distention, ascites++, no ballotable organ EXT:No edema ASSESSMENT: 1. Ascites, questionable new onset 2. Liver cirrhosis, status post TIPS 3. Anemia 4. Thrombocytopenia, worsening 5. Hypokalemia 6. History of alcohol use disorder 7. Type II DM 8. Abnormal ultrasound 9. Anemia, severe, On chronic iron deficiency 10. Pancytopenia Plan: Transfuse 2 units of packed RBCs Continue empiric ceftriaxone IV PPI twice daily Repeat blood work in am Visit Charges Inpatient E&M: 11544 [facility] Hosp L3
[2021-03-30 14:38] LABS: Hep C Antibodies <0.1 s/co ratio (0.0-0.9)
--- NOTE | 2021-03-30 15:36 | EX.PCM.PN.GI ---
Subjective Subjective Patient refused a breathing treatment this morning. He has been getting 2 units of packed red blood cells for decreasing hemoglobin. He did notice some blood in his stool today. He knows where he is at, he knows the year and he knows who the president is. He is still having dark in urine. He says that he is urinating a lot. Objective Data Objective Data Vital Signs: Vital Signs Temp Pulse Resp BP Pulse Ox 100 F H 102 H 16 141/62 H 99 03/30/21 11:44 03/30/21 13:50 03/30/21 13:50 03/30/21 11:44 03/30/21 11:44 Oxygen Delivery Method Room Air Weight: 235 lb 3.732 oz Body Mass Index (BMI) 34.6 Intake & Output: Intake and Output for Last 24 Hours 03/28/21 03/29/21 03/30/21 23:59 23:59 23:59 Intake Total 50.5 / 50.5 1480 / 1480 1974 Balance 50.5 / 50.5 1480 / 1480 1974 Lab / Micro Data Result Diagrams: 03/30/21 05:16 03/30/21 05:16 Labs: Laboratory Results - last 24 hr 03/28/21 14:59: Crossmatch See Detail 03/28/21 14:59: Crossmatch See Detail 03/29/21 09:25: Hepatitis A IgM Ab Negative, Hep Bs Antigen Negative, Hep B Core IgM Ab Negative, Hepatitis C Ab (EIA) <0.1 03/29/21 17:13: POC Glucose 136 H 03/29/21 17:31: Hgb 6.9 L, Hct 20.5 L 03/29/21 21:22: POC Glucose 127 H 03/29/21 23:16: Hgb 6.6 L, Hct 19.6 L 03/30/21 05:16: WBC 1.7 L, RBC 2.11 L, Hgb 6.1 L, Hct 18.3 L, MCV 86.7, MCH 28.9, MCHC 33.3, RDW Std Deviation 49.8 H, RDW Coeff of Phylicia 16.6 H, Plt Count 24 L*, MPV 10.5, Immature Gran % (Auto) 0.000, Neut % (Auto) 67.4, Lymph % (Auto) 22.1, [place] % (Auto) 9.3, Eos % (Auto) 1.2, Baso % (Auto) 0.0, Absolute Neuts (auto) 1.2 L, Absolute Lymphs (auto) 0.38 L, Nucleated RBC % 0, Diff Path Review August03/30/21 05:16: Sodium 129 L, Potassium 3.3 L, Chloride 92 L, Carbon Dioxide 27.0, Anion Gap 10, BUN 14, Creatinine 1.86 H, Estim Creat Clear Calc 47.42, Est GFR (MDRD) Af Amer 49 L, Est GFR (MDRD) Non-Af 41 L, BUN/Creatinine Ratio 7.5 L, Glucose 108 H, Calcium 8.2 L, Total Bilirubin 2.60 H, AST 70 H, ALT 23, Alkaline Phosphatase 101, Total Protein 6.2 L, Albumin 2.7 L, Globulin 3.5, Albumin/Globulin Ratio 0.8 L 03/30/21 06:36: POC Glucose 112 H 03/30/21 11:15: POC Glucose 124 H Micro: Microbiology 03/28/21 14:55 Stool Stool Occult Blood (MAGED) - Final Physical Exam Const alert General Appearance: cooperative Orientation / Consciousness: oriented to person HEENT hearing grossly normal bilaterally Head and Scalp: normal to inspection Face and Sinus: face symmetric Nose: external nose normal Mouth: oral and palatal mucosa normal Eyes conjunctivae normal General Eye: normal appearance of both eyes Neck full ROM General: normal visual inspection Lymph Lymphatic: no lymphadenopathy noted Chest inspection of chest normal and palpation of chest normal Chest: symmetrical chest wall rise Resp normal respiratory effort Effort and Inspection: able to speak in complete sentences Cardio regular rate GI non-distended Palpation: ascites and other Percussion: normal to percussion Rectal Exam: deferred Neuro Speech: speech normal Gait (Neuro): normal gait Assessment & Plan Assessment/Plan (1) Hepatorenal syndrome: PLAN: Suspect that he has hepatorenal syndrome type II as he does have chronic renal failure. Will be started on midodrine, continue albumin and we will start him on octreotide. Prognosis guarded at this time. 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 Slowly improving (4) Ascites: PLAN: Patient did not get a paracentesis yesterday secondary to coagulopathy and thrombocytopenia. May need to consult radiology in the future. However taking fluid out of his abdomen now could worsen his renal failure. (5) Alcoholic hepatitis: PLAN: MADRE score is very high. No benefit for Pentoxil filing at this time for steroids. Charges/Coding Visit Charges Inpatient E&M: 31200 Subs Hosp L3
[2021-03-30] MEDS: Potassium Chloride Oral Tablet 20 MEQ 40 MEQ PO (15:38)
[2021-03-30 16:11] LABS: Bedside Glucose 101 mg/dL (70-110)
[2021-03-30] MEDS: Midodrine HCl 5 MG Tablet 10 MG PO (18:45)
[2021-03-30] MEDS: 0.9% Saline Lock 10 ML Syringe IV ×2 (18:52→22:29)
[2021-03-30 19:39] LABS: Hematocrit 25.1 % (40-54); Hemoglobin 8.5 g/dL (13.0-16.5)
[2021-03-30] MEDS: Insulin Lispro 100 UNIT/ML INSULN.PEN SC (22:46)
[2021-03-30 22:55] LABS: Bedside Glucose 168 mg/dL (70-110)
[2021-03-30] MEDS: traZODone 100 MG Tablet PO (23:00)
[2021-03-30] MEDS: Gabapentin 300 MG Capsule PO (23:00)
[2021-03-31] VITALS (7 sets, daily range): BP systolic 147–164; BP diastolic 96–97; PULSE 99–112; RESP 18–24; TEMP 37.4–37.7; O2SAT 84–96; BMI 33.7
[2021-03-31] MEDS: Phenobarbital 32.4 MG Tablet 64.8 MG PO ×2 (02:53→06:33)
--- NOTE | 2021-03-31 04:02 | RAD_ITS ---
EXAM: XR CHEST, 1 VIEW CLINICAL INDICATION: sob TECHNIQUE: Frontal view of the chest. This report was created using [employer] report generation technology. COMPARISON: 01/26/2021 FINDINGS: LUNGS AND PLEURAL SPACES: Question subtle groundglass opacities involving the left perihilar region and right lower lung. Question of nodular fullness left hilar region. Blunting of the right lateral costophrenic angle which could represent a small pleural effusion versus pleural parenchymal scarring. Subsegmental atelectasis suspected at the right lung base. No left pleural effusion or pneumothorax. HEART: Unremarkable. Cardiac silhouette not enlarged. MEDIASTINUM: Central airways and mediastinal contour are unremarkable. BONES/JOINTS: No suspicious lytic or sclerotic lesions of bone. SOFT TISSUES: Unremarkable. RAD/Chest 1 View (Portable) IMPRESSION: Question subtle groundglass opacities involving the left perihilar region and right lower lung raising the possibility for infection in these regions. Electronically Signed: Keon Vaughn MD at 4:44 EST Tel , Service support ,
[2021-03-31] MEDS: Albuterol 2.5 MG/3 ML VIAL.NEB. INHALATION (04:24)
[2021-03-31 05:11] LABS: Absolute Neutrophil Count 1.7 X10^3/uL (2.0-7.7); Basophil# 0.02 X10^3/uL; Basophil% 0.9 % (0-1); Eosinophil# 0.03 X10^3/uL; Eosinophils% 1.3 % (0-5); Hematocrit 24.6 % (40-54); Hemoglobin 8.2 g/dL (13.0-16.5); Lymphocyte % 17.2 % (19-41); Mean Corp Hgb Conc 33.3 g/dL (32-36); Mean Corpuscular Hgb 29.6 pg (27.0-32.0); Mean Corpuscular Volume 88.8 fL (80-94); Mean Platelet Vol. 10.3 fl (6.2-12.0); Monocyte% 8.6 % (0-10); NRBC Flagged by Analyzer 0 % (0-5); Neutrophil # 1.66 X10^3/uL (2.7-7.7); Neutrophil % 71.6 % (47-70); POSITIVE COUNT YES; POSITIVE DIFFERENTIAL YES; Platelet Count 23 K/mm3 (150-450); RBC Distribution Width CV 16.9 % (11.6-14.6); RBC Distribution Width SD 51.9 fl (35.1-43.9); Red Blood Count 2.77 M/mm3 (4.6-6.2); White Blood Count 2.3 K/mm3 (4.4-11.0)
[2021-03-31 05:14] LABS: International Normalized Ratio 2.1
[2021-03-31 05:15] LABS: Partial Thromboplast Time 40.9 Seconds (24.1-36.2)
[2021-03-31 05:33] LABS: Phosphorus 2.1 mg/dL (2.5-4.9)
[2021-03-31 05:46] LABS: ALB/GLOB Ratio 1.1 RATIO (0.9-2.4); AST(SGOT) 52 U/L (15-37); Alanine Aminotransfer ALT/SGPT 22 U/L (16-61); Albumin, Serum 3.6 g/dL (3.2-5.0); Alkaline Phosphatase 89 U/L (45-117); Anion Gap 7 (5-15); BUN 15 mg/dL (7-18); BUN/Creat Ratio 7.6 RATIO (10-20); Bilirubin, Direct 1.95 mg/dL (0.00-0.30); Calcium,Total 8.5 mg/dL (8.5-10.1); Chloride 98 mmol/L (98-107); Creatinine, Serum 1.98 mg/dL (0.70-1.30); EST Glomerular Filtration Rate 38 mL/min (>60); Est Glom Filt Rate - Afr Amer 46 mL/min (>60); Estimated Creatinine Clearance 44.55 ml/min; Globulin 3.2 g/dL (2.2-4.2); Glucose 136 mg/dL (74-106); Magnesium 1.1 mg/dL (1.6-2.6); Potassium 3.8 mmol/L (3.5-5.1); Protein, Total 6.8 g/dL (6.4-8.2); Sodium Level 134 mmol/L (136-145)
--- NOTE | 2021-03-31 05:55 | EKG12_ITS ---
Test Reason : AM EKG Blood Pressure : / mmHG Vent. Rate : 100 BPM Atrial Rate : 100 BPM P-R Int : 172 ms QRS Dur : 098 ms QT Int : 350 ms P-R-T Axes : 030 058 021 degrees QTc Int : 451 ms Normal sinus rhythm Low voltage QRS Septal infarct , age undetermined Abnormal ECG When compared with ECG of 28-MAR-2021 12:00, MANUAL COMPARISON REQUIRED, DATA IS UNCONFIRMED Confirmed by JENNIFER TANNER, IAM ([id number]), mapping editor JEANIE ARCEO ([id number]) on 04/01/2021 7:38:19 AM Referred By: Anastacio Zuñiga Confirmed By:IAM RODRIGUEZ MD
[2021-03-31 07:05] LABS: Bedside Glucose 132 mg/dL (70-110)
[2021-03-31 07:14] LABS: Differential Indicated SCAN CRITERIA MET
[2021-03-31] MEDS: Albumin Human 25% (100 mL) 25 GM/100 ML BAG IV (07:23)
[2021-03-31 07:54] LABS: Anisocytosis 2+; Hypochromasia 1+; Platelet Estimate MKD DEC (ADEQ)
[2021-03-31 08:01] LABS: Hemoglobin A1c 5.9 % (3.8-5.6)
--- NOTE | 2021-03-31 08:21 | NURSING ---
pt requesting to leave AMA, stating he no longer wants to be here, pulled out IV, called and began getting dressed. Pt signed AMA paperwork and on chart, taken to front by [employer] where met patient, all belongings with pt. Physician notified of AMA by charge nurse
[2021-03-31 09:17] LABS: Vitamin B12 1928 pg/mL (211-911)
--- NOTE | 2021-03-31 14:54 | PCM.HOSP.N ---
Hospitalist Note Patient is a 55-year-old male who was admitted to the hospital on 03/28/2021 for management and evaluation of liver cirrhosis and ascites status post TIPS with pancytopenia. On the morning of 03/31/2021 patient expressed a desire to leave AGAINST MEDICAL ADVICE. Patient was advised by nursing staff that he should remain as leaving before his course of treatment is complete could result in worsening of his condition or possible . Patient chose to leave regardless of the associated risks. Patient left before morning rounds and was not evaluated by myself or Dr. Zuñiga. Patient seen by Rene Short PA-C, under the supervision of Dr. Zuñiga.
--- NOTE | 2021-03-31 15:28 | DS.PCM_ITS ---
Documented by User: Rene CASAREZ 03/31/21 15:29 Providers Date of Admission: 03/28/21 Primary Care Physician: No Primary Care Phys Consultations 03/29/21 08:50 Consult: General Surgery Routine Consulting Provider: Forrest Sterling Reason for Consult: Abnormal gall bladder USG; possible cancer EMERGENT Consult: No MD Notified: Yes Date Notified: 03/29/21 Time Notified: 08:50 Method of Notification: Text Reason For Visit: CHEST PAIN, CIRRHOSIS Diagnosis Discharge Diagnosis (1) Hepatorenal syndrome: Status: Acute Code(s): K76.7 - Hepatorenal syndrome (2) Thrombocytopenia: Status: Acute Code(s): D69.6 - Thrombocytopenia, unspecified (3) Hyponatremia: Status: Acute Code(s): E87.1 - Hypo-osmolality and hyponatremia (4) Ascites: Status: Acute Code(s): R18.8 - Other ascites (5) Alcoholic hepatitis: Status: Acute Code(s): K70.10 - Alcoholic hepatitis without ascites Medications at Discharge Home Medications albuterol sulfate 1 - 2 puff INHALATION Q4H PRN PRN 02/27/17 mometasone-formoterol 2 puff IH BID PRN PRN 07/26/17 insulin lispro 40 mg SUBCUT TID 05/08/19 tamsulosin 0.4 mg PO DAILY 05/08/19 tiotropium bromide 2 puff IH DAILY 05/08/19 tizanidine 2 mg PO Q8H PRN PRN 05/08/19 duloxetine 30 mg capsule,delayed release mg PO 05/16/19 fluticasone propionate 50 mcg/actuation nasal spray,suspension 2 spray INTRANASAL DAILY 05/16/19 hydroxyzine pamoate 50 mg capsule 100 mg PO QHS cap 05/16/19 insulin glargine U-300 conc 300 unit/mL (3 mL) subcutaneous pen 5 unit SC DAILY 05/16/19 Hospital Course Summary of Care Provided Minutes Spent on Discharge: 35 Hospital Course: Patient is a 55-year-old male who was admitted to the hospital on 03/28/2021 for management and evaluation of liver cirrhosis and ascites status post TIPS with pancytopenia. On the morning of 03/31/2021 patient expressed a desire to leave AGAINST MEDICAL ADVICE. Patient was advised by [facility] staff that he should remain as leaving before his course of treatment is complete could result in worsening of his condition or possible . Patient chose to leave regardless of the associated risks. Patient left before morning rounds and was not evaluated by myself or Dr. Zuñiga. Patient seen by Rene Short PA-C, under the supervision of Dr. Zuñiga. Physical Exam Narrative Physical exam was not completed on this patient as he left prior to morning rounds being complete where I could conducted examination. Please refer to progress note from 03/30/2021 for associated physical exam findings. Weight / BMI Weight Weight: 235 lb 7.259 oz Body Mass Index (BMI) 33.7 ABG / Lab / Microbiology Data Result Diagrams: 03/31/21 04:32 03/31/21 04:32 Laboratory: Laboratory Results - last 24 hr 03/29/21 09:25: Vitamin B12 1928 H 03/30/21 15:30: POC Glucose 101 03/30/21 19:30: Hgb 8.5 L, Hct 25.1 L 03/30/21 22:41: POC Glucose 168 H 03/31/21 04:32: WBC 2.3 L, RBC 2.77 L, Hgb 8.2 L, Hct 24.6 L, MCV 88.8, MCH 29.6, MCHC 33.3, RDW Std Deviation 51.9 H, RDW Coeff of Phylicia 16.9 H, Plt Count 23 L*, MPV 10.3, Immature Gran % (Auto) 0.400, Neut % (Auto) 71.6 H, Lymph % (Auto) 17.2 L, [place] % (Auto) 8.6, Eos % (Auto) 1.3, Baso % (Auto) 0.9, Absolute Neuts (auto) 1.7 L, Absolute Lymphs (auto) 0.40 L, Nucleated RBC % 0, Diff Path Review August, Platelet Estimate MKD DEC, Hypochromasia 1+, Anisocytosis 2+ 03/31/21 04:32: Sodium 134 L, Potassium 3.8, Chloride 98, Carbon Dioxide 29.0, Anion Gap 7, BUN 15, Creatinine 1.98 H, Estim Creat Clear Calc 44.55, Est GFR (MDRD) Af Amer 46 L, Est GFR (MDRD) Non-Af 38 L, BUN/Creatinine Ratio 7.6 L, Gl ucose 136 H, Calcium 8.5, Magnesium 1.1 L, Total Bilirubin 4.70 H, Direct Bilirubin 1.95 H, AST 52 H, ALT 22, Alkaline Phosphatase 89, Total Protein 6.8, Albumin 3.6, Globulin 3.2, Albumin/Globulin Ratio 1.1 03/31/21 04:32: PT 23.0 H, INR 2.1, APTT 40.9 H 03/31/21 04:32: Phosphorus 2.1 L 03/31/21 04:32: Hemoglobin A1c 5.9 H 03/31/21 06:32: POC Glucose 132 H Microbiology: Microbiology 03/31/21 05:15 Nasal Secretion SARS-CoV-2 Antigen (Rapid) - Final 03/28/21 14:55 Stool Stool Occult Blood (MAGED) - Final Radiography Diagnostic Testing: Radiology Impression Chest X-Ray 03/31/21 04:02 IMPRESSION: Question subtle groundglass opacities involving the left perihilar region and right lower lung raising the possibility for infection in these regions. Electronically Signed: Keon Vaughn MD at 4:44 EST Tel , Service support , Meaningful Use Info Meaningful Use Diagnoses (Choose all that apply): None applicable Discharge Plan Admission Admit Date/Time: 03/28/21 16:04 Attending Provider: Anastacio Zuñiga Primary Care Provider: Care Physician,No Primary Consulting Providers: Forrest Sterling Discharge Orders/Prescriptions Prescriptions: No Action hydroxyzine pamoate [Vistaril] 50 mg capsule 100 mg PO QHS RF: 0 fluticasone propionate [Flonase Allergy Relief] 50 mcg/actuation spray,suspension 2 spray INTRANASAL DAILY RF: 0 duloxetine 30 mg capsule,delayed release(DR/EC) PO RF: 0 Toujeo Max U-300 SoloStar 300 unit/mL (3 mL) insulin pen 5 unit SC DAILY RF: 0 albuterol sulfate 1 INHALER inhaler 1 - 2 puff inhalation Q4H PRN PRN (Reason: Sob &/Or Wheezing) RF: 0 mometasone-formoterol 8.8 GM HFA aerosol inhaler 2 puff IH BID PRN PRN (Reason: breathing) RF: 0 tamsulosin 0.4 MG capsule 0.4 mg PO DAILY RF: 0 insulin lispro 100 UNIT/ML insulin pen 40 mg subcut TID RF: 0 tiotropium bromide 18 MCG capsule, w/inhalation device 2 puff IH DAILY RF: 0 tizanidine 2 MG capsule 2 mg PO Q8H PRN PRN (Reason: Muscle Spasm) RF: 0 Referrals / Follow Up: Care Physician,No Primary [Primary Care Provider] - Documented by User: Dr. Anastacio Zuñiga MD 03/31/21 15:34 Providers Date of Admission: 03/28/21 Reason For Visit: CHEST PAIN, CIRRHOSIS Medications at Discharge Home Medications albuterol sulfate 1 - 2 puff INHALATION Q4H PRN PRN 02/27/17 mometasone-formoterol 2 puff IH BID PRN PRN 07/26/17 insulin lispro 40 mg SUBCUT TID 05/08/19 tamsulosin 0.4 mg PO DAILY 05/08/19 tiotropium bromide 2 puff IH DAILY 05/08/19 tizanidine 2 mg PO Q8H PRN PRN 05/08/19 duloxetine 30 mg capsule,delayed release mg PO 05/16/19 fluticasone propionate 50 mcg/actuation nasal spray,suspension 2 spray INTRANASAL DAILY 05/16/19 hydroxyzine pamoate 50 mg capsule 100 mg PO QHS cap 05/16/19 insulin glargine U-300 conc 300 unit/mL (3 mL) subcutaneous pen 5 unit SC DAILY 05/16/19 Hospital Course Operations None Summary of Care Provided Hospital Course: Please refer to Rene Short PA-C's note for details of this patient's presentation, findings, and recommendations. I have reviewed Rene Short PA-C's note and concur with documented findings. In brief, 55-year-old gentleman with history of decompensated liver disease admitted with with intermittent chest pain and multiple falls. Patient however elected to sign out AGAINST MEDICAL ADVICE before being evaluated personally by me. Attempts made by nursing staff to have patient resend his decision proved futile. Hospital course; as documented above ABG / Lab / Microbiology Data Result Diagrams: 03/31/21 04:32 03/31/21 04:32 Discharge Plan Admission Admit Date/Time: 03/28/21 16:04 Attending Provider: Anastacio Zuñiga Primary Care Provider: Care Physician,No Primary Consulting Providers: Forrest Sterling Discharge Orders/Prescriptions Prescriptions: No Action hydroxyzine pamoate [Vistaril] 50 mg capsule 100 mg PO QHS RF: 0 fluticasone propionate [Flonase Allergy Relief] 50 mcg/actuation spray,suspension 2 spray INTRANASAL DAILY RF: 0 duloxetine 30 mg capsule,delayed release(DR/EC) PO RF: 0 Toujeo Max U-300 SoloStar 300 unit/mL (3 mL) insulin pen 5 unit SC DAILY RF: 0 albuterol sulfate 1 INHALER inhaler 1 - 2 puff inhalation Q4H PRN PRN (Reason: Sob &/Or Wheezing) RF: 0 mometasone-formoterol 8.8 GM HFA aerosol inhaler 2 puff IH BID PRN PRN (Reason: breathing) RF: 0 tamsulosin 0.4 MG capsule 0.4 mg PO DAILY RF: 0 insulin lispro 100 UNIT/ML insulin pen 40 mg subcut TID RF: 0 tiotropium bromide 18 MCG capsule, w/inhalation device 2 puff IH DAILY RF: 0 tizanidine 2 MG capsule 2 mg PO Q8H PRN PRN (Reason: Muscle Spasm) RF: 0 Referrals / Follow Up: Care Physician,No Primary [Primary Care Provider] - Charges/Coding Visit Charges Inpatient E&M: 54933 Disch Hosp Hospital Course Consultations Consultations: Consultations 03/29/21 08:50 Consult: General Surgery Routine Consulting Provider: Forrest Sterling Reason for Consult: Abnormal gall bladder USG; possible cancer EMERGENT Consult: No MD Notified: Yes Date Notified: 03/29/21 Time Notified: 08:50 Method of Notification: Text Operations None
[2021-04-01 09:00] LABS: Pathologist Review Reviewed
[2021-04-01 09:07] LABS: Pathologist Review Reviewed
[2021-04-01 09:09] LABS: Pathologist Review Reviewed
[2021-04-01 09:19] LABS: Pathologist Review Reviewed
== END 2021-03-31 08:19 | disposition home or self-care (01) | DRG 432 ==
LOC: ED 17:13 → PCU 20:36
PROVIDERS: Anesthesiology; Internal Medicine Gastroenterology; Physician Assistant; Admitting Provider Internal Medicine; Emergency Provider Student in an Organized Health Care Education/Training Program; Referring Provider Internal Medicine; Visit Provider Internal Medicine
DX: K70.11 Alcoholic hepatitis with ascites (principal); K76.7 Hepatorenal syndrome; D61.818 Other pancytopenia; N17.9 Acute kidney failure, unspecified; E87.1 Hypo-osmolality and hyponatremia; K76.6 Portal hypertension; K92.1 Melena; E87.6 Hypokalemia; K82.8 Other specified diseases of gallbladder; K70.31 Alcoholic cirrhosis of liver with ascites; I12.9 Hypertensive chronic kidney disease with stage 1 through stage 4 chronic kidney disease, or unspecified chronic kidney disease; E11.22 Type 2 diabetes mellitus with diabetic chronic kidney disease; N18.2 Chronic kidney disease, stage 2 (mild); D50.9 Iron deficiency anemia, unspecified; J44.9 Chronic obstructive pulmonary disease, unspecified; E78.5 Hyperlipidemia, unspecified; F10.20 Alcohol dependence, uncomplicated; Y90.2 Blood alcohol level of 40-59 mg/100 ml; M10.9 Gout, unspecified; R62.7 Adult failure to thrive; D63.8 Anemia in other chronic diseases classified elsewhere; E87.70 Fluid overload, unspecified; F17.210 Nicotine dependence, cigarettes, uncomplicated; Z79.4 Long term (current) use of insulin; Z79.899 Other long term (current) drug therapy; R29.6 Repeated falls
CPT/HCPCS: 36415; 71045; 74177; 76705; 80048; 80053; 80074; 80076; 82077; 82140; 82274; 82607; 82746; 82962; 83036; 83540; 83550; 83690; 83735; 84100; 84484; 85014; 85018; 85025; 85045; 85610; 85730; 86850; 86900; 86901; 86920; 87426; 93005; 94640; 97162; 97165; 97802; 99251; 99285; 99406; J2185; J7040; P9016; P9040; P9047; Q9967; A4216; G0463; J1940; J3490

== ENCOUNTER 2021-05-08 06:55 | Inpatient (IN) | payer BC, MEDICARE, SELFPAY ==
[2021-05-08] VITALS (10 sets, daily range): BP systolic 113–143; BP diastolic 57–87; PULSE 82–106; RESP 14–23; TEMP 36.2–38; O2SAT 89–100; BMI 28.9; BMI 27.8
--- NOTE | 2021-05-08 07:01 | EKG12_ITS ---
Test Reason : Blood Pressure : / mmHG Vent. Rate : 093 BPM Atrial Rate : 093 BPM P-R Int : 166 ms QRS Dur : 094 ms QT Int : 368 ms P-R-T Axes : 027 000 039 degrees QTc Int : 457 ms Normal sinus rhythm Low voltage QRS Borderline ECG Confirmed by JENNIFER TANNER, IAM ([id number]), assistant production editor JEANIE ARCEO ([id number]) on 05/08/2021 1:35:10 PM Referred By: SISSY Confirmed By:IAM RODRIGUEZ MD
--- NOTE | 2021-05-08 07:11 | RAD_ITS ---
EXAM: XR CHEST, 1 VIEW : 1965 CLINICAL INDICATION: fever, cough, hypoxia TECHNIQUE: Frontal view of the chest. This report was created using [employer] report generation technology. COMPARISON: 03/31/2021 FINDINGS: LUNGS AND PLEURAL SPACES: Unremarkable. No consolidation or edema. No pneumothorax. No effusion. HEART: Unremarkable. Cardiac silhouette not enlarged. MEDIASTINUM: Central airways and mediastinal contour are unremarkable. BONES/JOINTS: Unremarkable. SOFT TISSUES: Unremarkable. RAD/Chest 1 View (Portable) IMPRESSION: No radiographic evidence of acute cardiopulmonary disease. at 0826 Reported and signed by: Derrick Rodriges MD Electronically Signed: Derrick Rodriges MD at 8:24 EST Tel , Service support ,
--- NOTE | 2021-05-08 07:14 | EDS_ITS ---
HPI History of Present Illness Chief Complaint: Alt LOC Detail of Chief Complaint: Decreased responsiveness this morning Informant: spouse/S.O. and family Narrative Narrative: Patient brought to the emergency department due to decreased level of consciousness this morning. Patient could not be woken up. He was noted to have a fever. states that after Ken he was admitted in [place] for liver failure and ascites. He has been at a jail. He has been coughing for about a week and a half. Patient is a smoker. Patient is not vaccinated against COVID-19 and has not had COVID-19 per . Most of the history does come from the who is with him. [facility] Medical History (Updated 05/08/21 @ 08:[address] Aysha Ford, ) Alcohol use Ascites Cirrhosis CKD (chronic kidney disease) stage 2, GFR 60-89 ml/min COPD (chronic obstructive pulmonary disease) CRF (chronic renal failure) Diabetes Diabetes mellitus, type II EtOH dependence Fatty liver Gout Hepatic cirrhosis History of positive PPD, untreated HLD (hyperlipidemia) Hyperuricemia Macrocytic anemia Nicotine dependence Pancytopenia Portal hypertension with esophageal varices Thrombocytopenia Home Medications albuterol sulfate 1 - 2 puff INHALATION Q4H PRN PRN 02/27/17 [History Last Taken 05/07/19] mometasone-formoterol 2 puff IH BID PRN PRN 07/26/17 [History Last Taken 05/07/19] insulin lispro 40 mg SUBCUT TID 05/08/19 [History Last Taken 05/07/19] tamsulosin 0.4 mg PO DAILY 05/08/19 [History Last Taken 05/07/19] tiotropium bromide 2 puff IH DAILY 05/08/19 [History Last Taken 05/07/19] tizanidine 2 mg PO Q8H PRN PRN 05/08/19 [History Last Taken 05/07/19] duloxetine 30 mg capsule,delayed release mg PO 05/16/19 [History Last Taken Unknown] fluticasone propionate 50 mcg/actuation nasal spray,suspension 2 spray INTRANASAL DAILY 05/16/19 [History Last Taken Unknown] hydroxyzine pamoate 50 mg capsule 100 mg PO QHS cap 05/16/19 [History Last Taken Unknown] insulin glargine U-300 conc 300 unit/mL (3 mL) subcutaneous pen 5 unit SC DAILY 05/16/19 [History Last Taken Unknown] Allergy/AdvReac Type Severity Reaction Status Date / Time Penicillins Allergy Anaphylaxis Verified 03/28/21 11:56 ciprofloxacin [From Cipro] AdvReac Other Verified 03/28/21 11:56 Family History Mother Cancer lung cancer Hypertension ETOH abuse Heart disease Brother Kidney disease Family History no significant family his Surgical History S/P TIPS (transjugular intrahepatic portosystemic shunt) Social History Smoking Status: Current every day smoker tobacco type: cigarettes Tobacco: How many years used: 44 alcohol intake: current alcohol intake frequency: 3 or more drinks per day Alcohol type: beer ROS ROS ED Review of Systems ROS Unobtainable: due to encephalopathy and due to mental status EXAM Physical Exam Const Vital Signs: 05/08/21 06:56 05/08/21 07:01 05/08/21 07:02 Temperature 100.4 F H 100.4 F H Temperature Source Temporal Temporal Pulse Rate 106 H 106 H Respiratory Rate 23 H 23 H Respiratory Effort Respiratory Pattern Blood Pressure 118/69 118/69 Blood Pressure Mean 85 85 Pulse Ox 89 94 94 Oxygen Delivery Method Room Air Nasal Cannula Nasal Cannula Oxygen Flow Rate (L/min) 2 2 05/08/21 07:03 05/08/21 07:30 05/08/21 07:47 Temperature 99.4 F H Temperature Source Core Pulse Rate 89 Respiratory Rate 19 H Respiratory Effort Normal Respiratory Pattern Normal Blood Pressure 120/68 Blood Pressure Mean 85 Pulse Ox 100 99 Oxygen Delivery Method Nasal Cannula Nasal Cannula Oxygen Flow Rate (L/min) 2 2 Positive well nourished and well developed General Appearance ED: well developed and NAD HEENT Reports TM's clear and moist mucous membranes normocephalic and atraumatic; Negative for trauma or tenderness Tympanic Membrane ED: Yes TM's clear Eyes PERRL and EOMs intact bilaterally General Eye ED: Negative for pale conjunctiva or scleral icterus Neck no lymphadenopathy, supple and no JVD General: Negative for tenderness Chest Wall inspection of chest normal and palpation of chest normal Chest: Negative for tenderness Resp normal respiratory effort Effort and Inspection: Negative for respiratory distress or pain with movement Auscultation: rhonchi; Negative for wheezes or diminished lung sounds Cardio regular rhythm, S1 normal heart sound, S2 normal heart sound and no murmurs Rate: tachycardic Peripheral Pulses: pulses 2+ throughout GI normal to inspection, nondistended, normoactive bowel sounds, soft to palpation, non-tender, non-distended and no masses Back/Spine no CVA tenderness and no thoracic nor lumbar tenderness Extremity normal to inspection General Extremety ED: Negative for edema General Extremity: Negative for edema Neuro CN's II-XII intact bilaterally, no sensory deficits noted and gait normal Neuro Narrative: Patient stuporous however he does arouse to sternal rub and answers some yes/no questions. Sensorium / Orientation: awake, oriented to person, oriented to place and oriented to time Motor Exam: strength 5/5 throughout and strength abnormal Psych mental status grossly normal Skin no rashes or lesions noted and no wounds MDM MDM MDM Narrative Medical decision making narrative: IV line established on arrival. Patient started on vancomycin and aztreonam empirically. He had blood cultures ordered. COVID-19 test was positive. Chest x-ray interpreted by myself as bilateral faint fluffy infiltrates. Lactate was normal. Patient was noted to have an ammonia level of 151. Patient was given lactulose 200 g rectally. He was given rectal Tylenol. Patient was given normal saline. Case discussed with hospitalist and he will be admitted for hepatic encephalopathy as well as COVID- 19 with hypoxemia. Patient did receive Decadron 6 mg IV. Lab Data Attestation: I reviewed the patient's lab results. Labs: Laboratory Results - last 24 hr 05/08/21 05/08/21 05/08/21 07:09 07:09 07:09 WBC 4.4 RBC 2.32 L Hgb 7.2 L Hct 22.6 L MCV 97.4 H MCH 31.0 MCHC 31.9 L RDW Std Deviation 56.3 H RDW Coeff of Phylicia 16.1 H Plt Count 57 L MPV 9.6 Immature Gran % (Auto) 0.500 Neut % (Auto) 61.3 Lymph % (Auto) 29.9 Evangeline % (Auto) 6.4 Eos % (Auto) 1.4 Baso % (Auto) 0.5 Absolute Neuts (auto) 2.7 Absolute Lymphs (auto) 1.30 Nucleated RBC % 0 Sodium 144 Potassium 4.9 Chloride 114 H Carbon Dioxide 26.0 Anion Gap 4 L BUN 45 H Creatinine 2.07 H Estim Creat Clear Calc 43.96 Est GFR (MDRD) Af Amer 43 L Est GFR (MDRD) Non-Af 36 L BUN/Creatinine Ratio 21.7 H Glucose 105 Lactic Acid 1.5 Calcium 8.4 L Total Bilirubin 1.40 H AST 48 H ALT 17 Alkaline Phosphatase 79 Ammonia Troponin I High Sens 16 Total Protein 6.4 Albumin 2.4 L Globulin 4.0 Albumin/Globulin Ratio 0.6 L 05/08/21 07:09 WBC RBC Hgb Hct MCV MCH MCHC RDW Std Deviation RDW Coeff of Phylicia Plt Count MPV Immature Gran % (Auto) Neut % (Auto) Lymph % (Auto) Evangeline % (Auto) Eos % (Auto) Baso % (Auto) Absolute Neuts (auto) Absolute Lymphs (auto) Nucleated RBC % Sodium Potassium Chloride Carbon Dioxide Anion Gap BUN Creatinine Estim Creat Clear Calc Est GFR (MDRD) Af Amer Est GFR (MDRD) Non-Af BUN/Creatinine Ratio Glucose Lactic Acid Calcium Total Bilirubin AST ALT Alkaline Phosphatase Ammonia 151.0 H Troponin I High Sens Total Protein Albumin Globulin Albumin/Globulin Ratio Radiography Chest X-Ray - ED: 1 View Diagnostic Testin view chest x-ray interpreted by myself as bilateral faint fluffy infiltrates. Official report from radiology pending. EKG Initial EKG: Attestation: I personally reviewed and interpreted this EKG as follows: Comments: Sinus rhythm with a ventricular rate of 93 bpm with no acute ST segment changes Critical Care Time Critical Care Time: Yes Critical care time (excluding procedures): Including time spent:, Discussing w/Patient &/or Family/Core Maker Helper, Discussing w/Consultants, Arranging Admission or Transfer, Performing Direct Patient Care at Bedside and - (20 minutes) Discharge Plan Triage Chief Complaint: Alt LOC ED Provider: Aysha Ford Dx/Rx/DC Orders Clinical Impression: Encephalopathy, hepatic, COVID-19, Hypoxemia Prescriptions: No Action hydroxyzine pamoate [Vistaril] 50 mg capsule 100 mg PO QHS RF: 0 fluticasone propionate [Flonase Allergy Relief] 50 mcg/actuation spray,suspension 2 spray INTRANASAL DAILY RF: 0 duloxetine 30 mg capsule,delayed release(DR/EC) PO RF: 0 Toujeo Max U-300 SoloStar 300 unit/mL (3 mL) insulin pen 5 unit SC DAILY RF: 0 albuterol sulfate 1 INHALER inhaler 1 - 2 puff inhalation Q4H PRN PRN (Reason: Sob &/Or Wheezing) RF: 0 mometasone-formoterol 8.8 GM HFA aerosol inhaler 2 puff IH BID PRN PRN (Reason: breathing) RF: 0 tamsulosin 0.4 MG capsule 0.4 mg PO DAILY RF: 0 insulin lispro 100 UNIT/ML insulin pen 40 mg subcut TID RF: 0 tiotropium bromide 18 MCG capsule, w/inhalation device 2 puff IH DAILY RF: 0 tizanidine 2 MG capsule 2 mg PO Q8H PRN PRN (Reason: Muscle Spasm) RF: 0 Primary Care Provider: Jody Branch NP Referrals: Jody Branch NP, [facility] [Primary Care Provider] - Disposition Disposition: Acute Care Hospital [facility]
[2021-05-08 07:30] LABS: Absolute Neutrophil Count 2.7 X10^3/uL (2.0-7.7); Basophil# 0.02 X10^3/uL; Basophil% 0.5 % (0-1); Eosinophil# 0.06 X10^3/uL; Eosinophils% 1.4 % (0-5); Hematocrit 22.6 % (40-54); Hemoglobin 7.2 g/dL (13.0-16.5); Lymphocyte % 29.9 % (19-41); Mean Corp Hgb Conc 31.9 g/dL (32-36); Mean Corpuscular Volume 97.4 fL (80-94); Mean Platelet Vol. 9.6 fl (6.2-12.0); Monocyte# 0.28 X10^3/uL; Monocyte% 6.4 % (0-10); NRBC Flagged by Analyzer 0 % (0-5); Neutrophil # 2.67 X10^3/uL (2.7-7.7); Neutrophil % 61.3 % (47-70); POSITIVE COUNT YES; POSITIVE MORPHOLOGY YES; Platelet Count 57 K/mm3 (150-450); RBC Distribution Width CV 16.1 % (11.6-14.6); RBC Distribution Width SD 56.3 fl (35.1-43.9); Red Blood Count 2.32 M/mm3 (4.6-6.2); White Blood Count 4.4 K/mm3 (4.4-11.0)
[2021-05-08] MEDS: Acetaminophen 650 MG Suppository RC (07:30)
[2021-05-08 07:33] LABS: Differential Indicated SCAN CRITERIA MET
[2021-05-08 07:48] LABS: Lactic Acid 1.5 mmol/L (0.4-1.9)
[2021-05-08 07:48] LABS: Mucous, Urine 0 SEEN /hpf (<or=2+); White Blood Cells 0 SEEN /hpf (0-5)
[2021-05-08 07:49] LABS: ALB/GLOB Ratio 0.6 RATIO (0.9-2.4); AST(SGOT) 48 U/L (15-37); Alanine Aminotransfer ALT/SGPT 17 U/L (16-61); Albumin, Serum 2.4 g/dL (3.2-5.0); Alkaline Phosphatase 79 U/L (45-117); Anion Gap 4 (5-15); BUN 45 mg/dL (7-18); BUN/Creat Ratio 21.7 RATIO (10-20); Calcium,Total 8.4 mg/dL (8.5-10.1); Chloride 114 mmol/L (98-107); Creatinine, Serum 2.07 mg/dL (0.70-1.30); EST Glomerular Filtration Rate 36 mL/min (>60); Est Glom Filt Rate - Afr Amer 43 mL/min (>60); Estimated Creatinine Clearance 43.96 ml/min; Glucose 105 mg/dL (74-106); Potassium 4.9 mmol/L (3.5-5.1); Protein, Total 6.4 g/dL (6.4-8.2); Sodium Level 144 mmol/L (136-145); Troponin-I HS 16 pg/mL (3.0-78.0)
[2021-05-08] MEDS: dexAMETHasone 10 MG/ML Vial 6 MG IV (08:02)
[2021-05-08 08:03] LABS: Color, Urine Yellow (Yellow); Glucose, Dipstick Normal (Normal); Ketone-Dipstick Negative (Negative); Leukocyte Esterase-Dipstick Negative /ul (Negative); Nitrite-Dipstick Negative (Negative); Occult Blood-Urine Negative /ul (Negative); Protein-Dipstick Negative (Negative); Urine Bilirubin Dipstick Negative (Negative); Urine Clarity Sl. Cloudy (Clear); Urine Urobilinogen Normal (Normal)
[2021-05-08] MEDS: 0.9% Normal Saline 1,000 ML 150 ML IV (08:05)
[2021-05-08 08:13] LABS: Bacteria RARE /hpf (None Seen); Red Blood Cells-Urine 0-5 SEEN /hpf (0-5); Squamous Epithelial Cells - UA 0-5 SEEN /hpf (0-5)
[2021-05-08 08:18] LABS: International Normalized Ratio 1.7; Prothrombin Time (Protime)PT. 19.1 SECONDS (11.7-14.9)
[2021-05-08 08:20] LABS: Differential Comment SCANNED; Platelet Estimate MKD DEC (ADEQ); Reactive Lymphocyte 1+
--- NOTE | 2021-05-08 08:31 | HP.PCM.HOS_ITS ---
HPI - General General Date of Admission: 05/08/21 Date of Service: 05/08/21 Chief Complaint: confusion HPI Narrative MARÍA HANLEY, is a 55 M who presents from [facility] with confusion. Patient apparently had a fever of 104 there. Patient had a low-grade temperature of 38 Celsius here. He was positive for COVID-19 and is unva ccinated. History is obtained through the emergency room physician as well as his as patient is obtunded and unable to provide any history. Patient did receive vancomycin and aztreonam as is unclear as to the etiology of his fever. Patient was admitted last month here for ascites. Patient left AGAINST MEDICAL ADVICE on the . Patient then presented to [facility] with ascites and wanted to get that drained. He did have a total of 22 L removed. Patient was then discharged to [facility] for rehab. Unclear if patient was checked for COVID-19 while he was there. thinks that he may have been sick for few days prior to coming in. [facility] Medical History Alcohol use Ascites Cirrhosis CKD (chronic kidney disease) stage 2, GFR 60-89 ml/min COPD (chronic obstructive pulmonary disease) CRF (chronic renal failure) Diabetes Diabetes mellitus, type II EtOH dependence Fatty liver Gout Hepatic cirrhosis History of positive PPD, untreated HLD (hyperlipidemia) Hyperuricemia Macrocytic anemia Nicotine dependence Pancytopenia Portal hypertension with esophageal varices Thrombocytopenia Home Medications albuterol sulfate 1 - 2 puff INHALATION Q4H PRN PRN 02/27/17 [History Last Taken 05/07/19] mometasone-formoterol 2 puff IH BID PRN PRN 07/26/17 [History Last Taken 05/07/19] insulin lispro 40 mg SUBCUT TID 05/08/19 [History Last Taken 05/07/19] tamsulosin 0.4 mg PO DAILY 05/08/19 [History Last Taken 05/07/19] tiotropium bromide 2 puff IH DAILY 05/08/19 [History Last Taken 05/07/19] tizanidine 2 mg PO Q8H PRN PRN 05/08/19 [History Last Taken 05/07/19] duloxetine 30 mg capsule,delayed release mg PO 05/16/19 [History Last Taken Unknown] fluticasone propionate 50 mcg/actuation nasal spray,suspension 2 spray INTRANASAL DAILY 05/16/19 [History Last Taken Unknown] hydroxyzine pamoate 50 mg capsule 100 mg PO QHS cap 05/16/19 [History Last Taken Unknown] insulin glargine U-300 conc 300 unit/mL (3 mL) subcutaneous pen 5 unit SC DAILY 05/16/19 [History Last Taken Unknown] Allergy/AdvReac Type Severity Reaction Status Date / Time Penicillins Allergy Anaphylaxis Verified 03/28/21 11:56 ciprofloxacin [From Cipro] AdvReac Other Verified 03/28/21 11:56 Family History Mother Cancer lung cancer Hypertension ETOH abuse Heart disease Brother Kidney disease Surgical History S/P TIPS (transjugular intrahepatic portosystemic shunt) Social History Smoking Status: Current every day smoker tobacco type: cigarettes Tobacco: How many years used: 44 alcohol intake: current alcohol intake frequency: 3 or more drinks per day Alcohol type: beer ROS Review of Systems ROS Unobtainable: due to encephalopathy Vital Signs Vital Signs Vital Signs: 05/08/21 06:56 05/08/21 07:01 05/08/21 07:02 Temperature 38.0 C H 38.0 C H Temperature Source Temporal Temporal Pulse Rate 106 H 106 H Respiratory Rate 23 H 23 H Respiratory Effort Respiratory Pattern Blood Pressure 118/69 118/69 Blood Pressure Mean 85 85 Pulse Ox 89 94 94 Oxygen Delivery Method Room Air Nasal Cannula Nasal Cannula Oxygen Flow Rate (L/min) 2 2 05/08/21 07:03 05/08/21 07:30 05/08/21 07:47 Temperature 37.4 C H Temperature Source Core Pulse Rate 89 Respiratory Rate 19 H Respiratory Effort Normal Respiratory Pattern Normal Blood Pressure 120/68 Blood Pressure Mean 85 Pulse Ox 100 99 Oxygen Delivery Method Nasal Cannula Nasal Cannula Oxygen Flow Rate (L/min) 2 2 05/08/21 08:06 Temperature 37.8 C H Temperature Source Core Pulse Rate 90 Respiratory Rate 17 Respiratory Effort Respiratory Pattern Blood Pressure 115/63 Blood Pressure Mean 80 Pulse Ox 100 Oxygen Delivery Method Nasal Cannula Oxygen Flow Rate (L/min) 2 Weight Weight: 94.1 kg Body Mass Index (BMI) 28.9 Physical Exam Const Constitutional Narrative: Does not follow commands. Orientation / Consciousness: confused HEENT normocephalic Eyes Eyes Narrative: Icterus Neck no lymphadenopathy Resp normal respiratory effort, no retractions, no use of accessory muscles and clear to auscultation bilaterally Cardio regular rate, regular rhythm, S1 normal heart sound and S2 normal heart sound GI normal to inspection, nondistended, normoactive bowel sounds and soft to palpation GI Narrative: No hepato-splenomegaly Extremity Extremity Narrative: Trace lower extremity edema Skin Skin Narrative: Slight jaundice Results Lab / Micro Data Attestation: I reviewed the patient's lab results. Result Diagrams: 05/08/21 07:09 05/08/21 07:09 Labs: Laboratory Results - last 24 hr 05/08/21 07:09: WBC 4.4, RBC 2.32 L, Hgb 7.2 L, Hct 22.6 L, MCV 97.4 H, MCH 31.0, MCHC 31.9 L, RDW Std Deviation 56.3 H, RDW Coeff of Phylicia 16.1 H, Plt Count 57 L, MPV 9.6, Immature Gran % (Auto) 0.500, Neut % (Auto) 61.3, Lymph % (Auto) 29.9, Hand % (Auto) 6.4, Eos % (Auto) 1.4, Baso % (Auto) 0.5, Absolute Neuts (auto) 2.7, Absolute Lymphs (auto) 1.30, Nucleated RBC % 0, Differential Comment SCANNED, Reactive Lymphocytes 1+, Platelet Estimate MKD 05/08/21 07:09: PT 19.1 H, INR 1.7 05/08/21 07:09: Sodium 144, Potassium 4.9, Chloride 114 H, Carbon Dioxide 26.0, Anion Gap 4 L, BUN 45 H, Creatinine 2.07 H, Estim Creat Clear Calc 43.96, Est GFR (MDRD) Af Amer 43 L, Est GFR (MDRD) Non-Af 36 L, BUN/Creatinine Ratio 21.7 H , Glucose 105, Calcium 8.4 L, Total Bilirubin 1.40 H, AST 48 H, ALT 17, Alkaline Phosphatase 79, Troponin I High Sens 16, Total Protein 6.4, Albumin 2.4 L, Globulin 4.0, Albumin/Globulin Ratio 0.6 L 05/08/21 07:09: Lactic Acid 1.5 05/08/21 07:09: Ammonia 151.0 H 05/08/21 07:40: Urine Color Yellow, Urine Clarity Sl. Cloudy, Urine pH 6.0, Ur Specific [place] 1.010, Urine Protein Negative, Urine Glucose (UA) Normal, Urine Ketones Negative, Urine Occult Blood Negative, Urine Nitrite Negative, Urine Bilirubin Negative, Urine Urobilinogen Normal, Ur Leukocyte Esterase Negative, Urine RBC 0-5 SEEN, Urine WBC 0 SEEN, Ur Squamous Epith Cells 0-5 SEEN, Urine Bacteria RARE, Urine Mucus 0 SEEN Micro: Microbiology 05/08/21 07:10 Nasal Secretion SARS-CoV-2 Antigen (Rapid) - Final SARS-CoV-2 (COVID 19) EKG Initial EKG: Attestation: I personally reviewed and interpreted this EKG as follows: Prior EKG tracings: available for review EKG Rhythm Intrepretation: Sinus Rhythm Radiology Impression Chest X-Ray 05/08/21 07:11 IMPRESSION: No radiographic evidence of acute cardiopulmonary disease. at 0826 Reported and signed by: Derrick Rodriges MD Electronically Signed: Derrick Rodriges MD at 8:24 EST Tel , Service support , Assessment & Plan Assessment/Plan (1) Anemia: QUALIFIERS: Anemia type: other cause Other causes of anemia: other cause, not classified Qualified Code(s): D64.89 - Other specified anemias (2) COVID-19: (3) Encephalopathy, hepatic: PLAN: 1. Acute hepatic encephalopathy Ammonia is 151 I do not see lactulose on his home medication list. Patient has been ordered at emergency room and will continue it rectally for now Once patient is alert switch over to p.o. but also add rifaximin 2. COVID-19 Unvaccinated Onset unclear so we will take this as day 0 and patient will need to quarantine through through May 29 Dexamethasone No remdesivir given cirrhosis 3. Alcoholic cirrhosis Last drink was Ken Meld score of 21, child Pruett score of grade C Patient has had TIPS for varices which complicates this hepatic encephalopathy 4. Hepatorenal syndrome type II monitor 5. Ascites mild at this time monitor, no need for paracentesis at this time. 6. DM2 continue basal insulin SSI 7. Anemia 2/2 cirrhosis no need for transfusion at this time. 8. VTE prophylaxis: SCDs. no chemical prophylaxis given anemia and thrombocytopenia 9. CODE STATUS: addressed with his . She states that he previously told her he wanted to be full code. Will need to readdress when he is more alert Charges/Coding Visit Charges Inpatient E&M: 30662 Init Hosp L3
[2021-05-08] MEDS: Lactulose 20 GM/30 ML UDC 200 GM RC ×2 (08:36→10:23)
--- NOTE | 2021-05-08 09:25 | NURSING ---
Pt resting in bed with eyes closed. patient had been incontinent of stool. attends changed on arrival to the unit. pt unable to answer most questions at this time. will monitor. med list to be completed once received from the [facility]. pulse 98% on 1L N/C.
--- NOTE | 2021-05-08 10:01 | PCS.PANDOC ---
PANDEMIC DOCUMENTATION INITIATED: Date: 12/02/2020 Time: 190
[2021-05-08 11:21] LABS: Bedside Glucose 118 mg/dL (70-110)
[2021-05-08] MEDS: Haloperidol Lactate 5 MG/ML Vial 1 MG IM ×2 (15:41→23:05)
[2021-05-08] MEDS: Insulin Lispro 100 UNIT/ML INSULN.PEN SC (16:50)
[2021-05-08 17:16] LABS: Bedside Glucose 228 mg/dL (70-110)
[2021-05-08] MEDS: Lidocaine 5% Patch 1 PATCH TOPICAL (17:48)
[2021-05-08] MEDS: Pantoprazole Sodium 40 MG Tablet PO (21:46)
[2021-05-08] MEDS: Lactulose 20 GM/30 ML UDC PO (21:46)
[2021-05-08] MEDS: rifAXIMin 550 MG Tablet PO (21:46)
[2021-05-08] MEDS: OLANZapine 2.5 MG Tablet 5 MG PO (21:46)
[2021-05-08] MEDS: Fluticasone/Salmeterol 232-14 Inhaler 1 PUFF INHALATION (21:48)
[2021-05-09] MEDS: Insulin Lispro 100 UNIT/ML INSULN.PEN SC ×3 (00:07→22:54)
[2021-05-09 00:41] LABS: Bedside Glucose 248 mg/dL (70-110)
[2021-05-09] MEDS: Haloperidol Lactate 5 MG/ML Vial 2 MG IM ×5 (02:36→22:53)
[2021-05-09 04:00] VITALS: BP 142/83; PULSE 102; RESP 15; TEMP 36.8; O2SAT 97; O2SAT 98
[2021-05-09] MEDS: Levothyroxine 175 MCG Tablet PO ×2 (06:06→20:23)
[2021-05-09] MEDS: Lactulose 20 GM/30 ML UDC PO ×3 (06:06→20:24)
[2021-05-09 06:28] LABS: Absolute Neutrophil Count 1.7 X10^3/uL (2.0-7.7); Hematocrit 20.9 % (40-54); Hemoglobin 6.7 g/dL (13.0-16.5); Lymphocyte % 9.5 % (19-41); Mean Corp Hgb Conc 32.1 g/dL (32-36); Mean Corpuscular Hgb 31.5 pg (27.0-32.0); Mean Corpuscular Volume 98.1 fL (80-94); Mean Platelet Vol. 9.6 fl (6.2-12.0); Monocyte# 0.18 X10^3/uL; Monocyte% 8.6 % (0-10); NRBC Flagged by Analyzer 0 % (0-5); Neutrophil # 1.68 X10^3/uL (2.7-7.7); POSITIVE COUNT YES; POSITIVE DIFFERENTIAL YES; RBC Distribution Width CV 15.8 % (11.6-14.6); RBC Distribution Width SD 55.9 fl (35.1-43.9); Red Blood Count 2.13 M/mm3 (4.6-6.2); White Blood Count 2.1 K/mm3 (4.4-11.0)
[2021-05-09 06:32] LABS: Differential Indicated SCAN CRITERIA MET; Platelet Count 38 K/mm3 (150-450)
[2021-05-09 06:47] LABS: Differential Comment SCANNED; Platelet Estimate MKD DEC (ADEQ)
[2021-05-09 06:56] LABS: Bedside Glucose 138 mg/dL (70-110)
[2021-05-09 06:57] LABS: ALB/GLOB Ratio 0.6 RATIO (0.9-2.4); AST(SGOT) 54 U/L (15-37); Alanine Aminotransfer ALT/SGPT 22 U/L (16-61); Albumin, Serum 2.6 g/dL (3.2-5.0); Alkaline Phosphatase 67 U/L (45-117); Anion Gap 4 (5-15); BUN 42 mg/dL (7-18); BUN/Creat Ratio 23.5 RATIO (10-20); Calcium,Total 8.8 mg/dL (8.5-10.1); Chloride 117 mmol/L (98-107); Creatinine, Serum 1.79 mg/dL (0.70-1.30); EST Glomerular Filtration Rate 42 mL/min (>60); Est Glom Filt Rate - Afr Amer 51 mL/min (>60); Estimated Creatinine Clearance 50.83 ml/min; Globulin 4.3 g/dL (2.2-4.2); Glucose 135 mg/dL (74-106); Potassium 4.6 mmol/L (3.5-5.1); Protein, Total 6.9 g/dL (6.4-8.2); Sodium Level 147 mmol/L (136-145)
[2021-05-09] MEDS: Sodium Ferric Gluconat 250 MG in 0.9% Normal Saline 250 ML 135 MG IV (08:49)
[2021-05-09 09:00] VITALS: BP 155/95; PULSE 98; RESP 16; TEMP 36; O2SAT 100
--- NOTE | 2021-05-09 10:15 | CASEMGMT ---
Social Work Note Pt is listed as being from [facility]. Pt is COVID+. SW reviewed chart. Pt received Haldol last night and still has a sitter. SW placed a call to Shy at [facility] and left message regarding pt. SW waiting for call back from [facility]. Maranda Carrillo GUITAR TEACHER, CALL OR CONTACT CENTRE MANAGER
--- NOTE | 2021-05-09 11:01 | PCM.PN.HOSP ---
Subjective Subjective Talking about she, but doesn't know who she is. More alert overall. Objective Data Objective Data Vital Signs: Vital Signs Temp Pulse Resp BP Pulse Ox 36.8 C 102 H 15 142/83 H 97 05/09/21 04:00 05/09/21 04:00 05/09/21 04:00 05/09/21 04:00 05/09/21 04:00 Oxygen Flow Rate (L/min) 1.5 Oxygen Delivery Method Room Air Weight: 90.7 kg Body Mass Index (BMI) 27.8 Intake & Output: Intake and Output for Last 24 Hours 05/07/21 05/08/21 05/09/21 23:59 23:59 23:59 Intake Total 2130 / 2130 250 / 250 Output Total 550 / 550 Balance 2130 / 0 -300 / -300 Lab / Micro Data Result Diagrams: 05/09/21 05:40 05/09/21 05:40 Labs: Laboratory Results - last 24 hr 05/08/21 11:10: POC Glucose 118 H 05/08/21 16:38: POC Glucose 228 H 05/09/21 00:06: POC Glucose 248 H 05/09/21 05:40: WBC 2.1 L, RBC 2.13 L, Hgb 6.7 L, Hct 20.9 L, MCV 98.1 H, MCH 31.5, MCHC 32.1, RDW Std Deviation 55.9 H, RDW Coeff of Phylicia 15.8 H, Plt Count 38 L*, MPV 9.6, Immature Gran % (Auto) 1.900 H, Neut % (Auto) 80.0 H, Lymph % (Auto) 9.5 L, [place] % (Auto) 8.6, Eos % (Auto) 0.0, Baso % (Auto) 0.0, Absolute Neuts (auto) 1.7 L, Absolute Lymphs (auto) 0.20 L, Nucleated RBC % 0, Differential Comment SCANNED, Diff Path Review August jason, Platelet Estimate MKD 05/09/21 05:40: Sodium 147 H, Potassium 4.6, Chloride 117 H, Carbon Dioxide 26.0, Anion Gap 4 L, BUN 42 H, Creatinine 1.79 H, Estim Creat Clear Calc 50.83, Est GFR (MDRD) Af Amer 51 L, Est GFR (MDRD) Non-Af 42 L, BUN/Creatinine Ratio 23.5 H, Glucose 135 H, Calcium 8.8, Total Bilirubin 2.00 H, AST 54 H, ALT 22, Alkaline Phosphatase 67, Total Protein 6.9, Albumin 2.6 L, Globulin 4.3 H, Albumin/Globulin Ratio 0.6 L 05/09/21 06:09: POC Glucose 138 H 05/09/21 07:06: Crossmatch See Detail Micro: Microbiology 05/08/21 07:40 Urine Catheter - Catheter Urine Culture - Preliminary Culture exhibits no growth. 05/08/21 10:00 Urine Catheter - Catheter Legionella Antigen - Final 05/08/21 10:00 Urine Catheter - Catheter Streptococcus pneumoniae Antigen (M - Final 05/08/21 07:10 Nasal Secretion SARS-CoV-2 Antigen (Rapid) - Final SARS-CoV-2 (COVID 19) Physical Exam Const Orientation / Consciousness: confused Resp normal respiratory effort, no retractions, no use of accessory muscles and clear to auscultation bilaterally Cardio regular rate, regular rhythm, S1 normal heart sound and S2 normal heart sound GI normal to inspection, nondistended, normoactive bowel sounds, soft to palpation, non-tender and non-distended Neuro Neuro Narrative: no asterixis. Assessment & Plan Assessment/Plan (1) Anemia: QUALIFIERS: Anemia type: other cause Other causes of anemia: other cause, not classified Qualified Code(s): D64.89 - Other specified anemias (2) COVID-19: (3) Encephalopathy, hepatic: PLAN: 1. Acute hepatic encephalopathy improved, but still confused overall Admission ammonia is 151 Continue lactulose and rifaxamin 2. COVID-19 Unvaccinated Onset unclear so we will take this as day 0 and patient will need to quarantine through through May 29 Dexamethasone No remdesivir given cirrhosis 3. Alcoholic cirrhosis Last drink was Ken Meld score of 21, child Pruett score of grade C Patient has had TIPS for varices which complicates this hepatic encephalopathy 4. Hepatorenal syndrome type II monitor 5. Ascites mild at this time monitor, no need for paracentesis at this time. 6. DM2 continue basal insulin SSI 7. Anemia 2/2 cirrhosis Hg 6.7 given national blood shortage, overall poor long-term prognosis and pt apparently has an antibody will hold off on transfusion at this time iron sucrose 8. VTE prophylaxis: SCDs. no chemical prophylaxis given anemia and thrombocytopenia 9. CODE STATUS: addressed with his . She states that he previously told her he wanted to be full code. Will need to readdress when he is more alert Charges/Coding Visit Charges Inpatient E&M: 32886 Subs Hosp L2
[2021-05-09] MEDS: dexAMETHasone 10 MG/ML Vial 6 MG IV (11:07)
[2021-05-09] MEDS: 0.9% Saline Lock 10 ML Syringe IV (11:07)
[2021-05-09] MEDS: rifAXIMin 550 MG Tablet PO ×2 (11:08→20:23)
[2021-05-09] MEDS: Thiamine Hydrochloride 100 MG Tablet PO (11:08)
[2021-05-09] MEDS: Folic Acid 1 MG Tablet PO (11:08)
[2021-05-09] MEDS: Pantoprazole Sodium 40 MG Tablet PO ×2 (11:08→20:23)
[2021-05-09] MEDS: Tamsulosin HCl 0.4 MG Capsule PO (11:08)
[2021-05-09] MEDS: Furosemide 20 MG Tablet PO (11:08)
[2021-05-09 11:25] LABS: Bedside Glucose 163 mg/dL (70-110)
--- NOTE | 2021-05-09 14:29 | CASEMGMT ---
Addendum entered by Maranda Carrillo 05/09/21 14:40: Pt is skilled at [facility] and will be returning skilled. Original Note: Social Work Note SW placed a call to Shy at [facility] again regarding pt. Shy aware that pt is COVID+ and they are able to accept pt back being COVID+. Shy states pre-cert is not needed and pt can return when he is medically cleared and pt has been Haldol/Sitter free for 24 hours. JAILENE faxed updated clinicals to [facility]. JAILENE placed a call to pt's Avani. Avani confirms pt came from [facility] and plan is to return. SW informed Avani that [facility] is able to accept pt. Plan: Return to [facility] when medically cleared Pt has to be Haldol Free and Sitter free for 24 hours before he can return to [facility]. Maranda Carrillo SALES ORDER ADMINISTRATOR, SUTURE GAUGER
[2021-05-09 14:48] VITALS: BP 151/92; PULSE 94; RESP 16; TEMP 35.9; O2SAT 100
[2021-05-09 16:00] VITALS: O2SAT 100
[2021-05-09 18:21] LABS: Bedside Glucose 297 mg/dL (70-110)
[2021-05-09 20:16] VITALS: BP 133/82; PULSE 103; RESP 18; TEMP 36; O2SAT 99
[2021-05-09] MEDS: OLANZapine 2.5 MG Tablet 5 MG PO (20:23)
[2021-05-09] MEDS: Fluticasone/Salmeterol 232-14 Inhaler 1 PUFF INHALATION (20:24)
[2021-05-09 21:25] VITALS: O2SAT 97
[2021-05-09 23:01] LABS: Bedside Glucose 194 mg/dL (70-110)
[2021-05-10] VITALS (9 sets, daily range): BP systolic 117–140; BP diastolic 67–78; PULSE 72–102; RESP 16–18; TEMP 35.1–36.6; O2SAT 94–99
[2021-05-10] MEDS: Insulin Lispro 100 UNIT/ML INSULN.PEN SC ×4 (06:15→20:54)
[2021-05-10 06:29] LABS: Absolute Lymphocyte Count 0.31 X10^3/uL (0.83-4.51); Absolute Neutrophil Count 1.4 X10^3/uL (2.0-7.7); Hematocrit 19.1 % (40-54); Lymphocyte # 0.31 X10^3/ul (0.83-4.51); Lymphocyte % 16.4 % (19-41); Mean Corp Hgb Conc 30.9 g/dL (32-36); Mean Corpuscular Hgb 30.7 pg (27.0-32.0); Mean Corpuscular Volume 99.5 fL (80-94); Monocyte% 10.6 % (0-10); NRBC Flagged by Analyzer 1.1 % (0-5); Neutrophil # 1.35 X10^3/uL (2.7-7.7); Neutrophil % 71.4 % (47-70); POSITIVE COUNT YES; POSITIVE DIFFERENTIAL YES; RBC Distribution Width CV 15.9 % (11.6-14.6); RBC Distribution Width SD 57.2 fl (35.1-43.9); Red Blood Count 1.92 M/mm3 (4.6-6.2); White Blood Count 1.9 K/mm3 (4.4-11.0)
[2021-05-10 06:32] LABS: Hemoglobin 5.9 g/dL (13.0-16.5)
[2021-05-10 06:33] LABS: Differential Indicated SCAN CRITERIA MET; Platelet Count 37 K/mm3 (150-450)
[2021-05-10 06:35] LABS: Bedside Glucose 163 mg/dL (70-110)
[2021-05-10 06:46] LABS: Differential Comment SCANNED; Hypochromasia 2+; Platelet Estimate MKD DEC (ADEQ)
[2021-05-10 06:54] LABS: ALB/GLOB Ratio 0.6 RATIO (0.9-2.4); AST(SGOT) 58 U/L (15-37); Alanine Aminotransfer ALT/SGPT 23 U/L (16-61); Albumin, Serum 2.3 g/dL (3.2-5.0); Alkaline Phosphatase 60 U/L (45-117); Anion Gap 3 (5-15); BUN 41 mg/dL (7-18); BUN/Creat Ratio 24.1 RATIO (10-20); Calcium,Total 8.5 mg/dL (8.5-10.1); Chloride 116 mmol/L (98-107); EST Glomerular Filtration Rate 45 mL/min (>60); Est Glom Filt Rate - Afr Amer 54 mL/min (>60); Estimated Creatinine Clearance 53.52 ml/min; Glucose 172 mg/dL (74-106); Potassium 4.2 mmol/L (3.5-5.1); Protein, Total 6.3 g/dL (6.4-8.2); Sodium Level 146 mmol/L (136-145)
[2021-05-10] MEDS: Furosemide 20 MG Tablet PO (10:56)
[2021-05-10] MEDS: Folic Acid 1 MG Tablet PO (10:56)
[2021-05-10] MEDS: rifAXIMin 550 MG Tablet PO ×2 (10:56→20:53)
[2021-05-10] MEDS: 0.9% Saline Lock 10 ML Syringe IV ×3 (10:56→17:16)
[2021-05-10] MEDS: Pantoprazole Sodium 40 MG Tablet PO ×2 (10:56→20:53)
[2021-05-10] MEDS: dexAMETHasone 10 MG/ML Vial 6 MG IV (10:57)
[2021-05-10] MEDS: Thiamine Hydrochloride 100 MG Tablet PO (10:57)
[2021-05-10] MEDS: Tamsulosin HCl 0.4 MG Capsule PO (10:57)
[2021-05-10] MEDS: Umeclidinium Bromide Inhaler 1 PUFF INHALATION (10:58)
[2021-05-10] MEDS: Fluticasone/Salmeterol 232-14 Inhaler 1 PUFF INHALATION ×2 (10:58→20:44)
[2021-05-10] MEDS: Lactulose 20 GM/30 ML UDC PO ×2 (11:01→20:53)
--- NOTE | 2021-05-10 11:15 | PCM.PN.HOSP ---
Subjective Subjective More alert today. Complains of abdominal pain. Objective Data Objective Data Vital Signs: Vital Signs Temp Pulse Resp BP Pulse Ox 36.1 C L 91 18 140/75 H 99 05/10/21 10:00 05/10/21 10:00 05/10/21 10:00 05/10/21 10:00 05/10/21 10:00 Oxygen Flow Rate (L/min) 96 Oxygen Delivery Method Room Air Weight: 90.7 kg Body Mass Index (BMI) 27.8 Intake & Output: Intake and Output for Last 24 Hours 05/08/21 05/09/21 05/10/21 23:59 23:59 23:59 Intake Total 2130 / 2130 1120 / 1120 360 / 360 Output Total 2150 / 2150 750 / 750 Balance 0 / 0 -1030 / -1030 -390 / -390 Lab / Micro Data Result Diagrams: 05/10/21 06:10 05/10/21 06:10 Labs: Laboratory Results - last 24 hr 05/09/21 07:06: Blood Type B POSITIVE, Antibody Screen POSITIVE H, Antibody Identification ANTI-E, Antigen Identification E ANTIGEN - NEGATIVE, Crossmatch See Detail 05/09/21 11:18: POC Glucose 163 H 05/09/21 18:05: POC Glucose 297 H 05/09/21 22:51: POC Glucose 194 H 05/10/21 06:05: POC Glucose 163 H 05/10/21 06:10: WBC 1.9 L, RBC 1.92 L, Hgb 5.9 L*, Hct 19.1 L, MCV 99.5 H, MCH 30.7, MCHC 30.9 L, RDW Std Deviation 57.2 H, RDW Coeff of Phylicia 15.9 H, Plt Count 37 L*, MPV 9.0, Immature Gran % (Auto) 1.600 H, Neut % (Auto) 71.4 H, Lymph % (Auto) 16.4 L, [place] % (Auto) 10.6 H, Eos % (Auto) 0.0, Baso % (Auto) 0.0, Absolute Neuts (auto) 1.4 L, Absolute Lymphs (auto) 0.31 L, Nucleated RBC % 1.1, Differential Comment SCANNED, Diff Path Review May jason, Platelet Estimate MKD DEC, Hypochromasia 2+ 05/10/21 06:10: Sodium 146 H, Potassium 4.2, Chloride 116 H, Carbon Dioxide 27.0, Anion Gap 3 L, BUN 41 H, Creatinine 1.70 H, Estim Creat Clear Calc 53.52, Est GFR (MDRD) Af Amer 54 L, Est GFR (MDRD) Non-Af 45 L, BUN/Creatinine Ratio 24.1 H, Glucose 172 H, Calcium 8.5, Total Bilirubin 1.30 H, AST 58 H, ALT 23, Alkaline Phosphatase 60, Total Protein 6.3 L, Albumin 2.3 L, Globulin 4.0, Albumin/Globulin Ratio 0.6 L Micro: Microbiology 05/08/21 07:40 Urine Catheter - Catheter Urine Culture - Final Culture exhibits no growth. 05/08/21 10:00 Urine Catheter - Catheter Legionella Antigen - Final 05/08/21 10:00 Urine Catheter - Catheter Streptococcus pneumoniae Antigen (M - Final 05/08/21 07:10 Nasal Secretion SARS-CoV-2 Antigen (Rapid) - Final SARS-CoV-2 (COVID 19) Physical Exam Const alert, oriented x3 and no apparent distress Exam Limitations: no limitations Neck no lymphadenopathy Resp normal respiratory effort, no retractions, no use of accessory muscles and clear to auscultation bilaterally Cardio regular rate, regular rhythm, S1 normal heart sound and S2 normal heart sound GI GI Narrative: distended minimal tenderness Extremity normal to inspection and full ROM Assessment & Plan Assessment/Plan (1) Anemia: QUALIFIERS: Anemia type: other cause Other causes of anemia: other cause, not classified Qualified Code(s): D64.89 - Other specified anemias (2) COVID-19: (3) Encephalopathy, hepatic: PLAN: 1. Acute hepatic encephalopathy improved, but still confused overall Admission ammonia is 151 Continue lactulose and rifaxamin 2. COVID-19 Unvaccinated Onset unclear so we will take this as day 0 and patient will need to quarantine through through May 29 Dexamethasone No remdesivir given cirrhosis 3. Alcoholic cirrhosis Last drink was [place] Meld score of 21, child Pruett score of grade C Patient has had TIPS for varices which complicates this hepatic encephalopathy 4. Hepatorenal syndrome type II monitor 5. Ascites mild at this time monitor, no need for paracentesis at this time. 6. DM2 continue basal insulin SSI 7. Anemia 2/2 cirrhosis Hg 5.9 Will transfuse 1 unit at this time. 8. VTE prophylaxis: SCDs. no chemical prophylaxis given anemia and thrombocytopenia 9. CODE STATUS: Addressed with the patient on the . DNR Comfort Care arrest no intubation. Advance care planning: Spent additional 20 minutes discussing with the patient about goals of care, I told him that my concern for his life expectancy is 6 months or less. I told him he would be hospice appropriate. I recommended hospice for him. He is agreeable. I discussed with his as well and stated that we could get him medically stabilized but overall with his liver cirrhosis that his long-term prognosis is still poor and he is having issues and will may continue to have issues moving forward. She is agreeable to hospice consult at this time. Charges/Coding Visit Charges Inpatient E&M: 03090 Subs Hosp L2 Procedures Hospitalists Procedures: 21344 Advncd Care Plan 30 Min
[2021-05-10 13:51] LABS: Bedside Glucose 137 mg/dL (70-110)
[2021-05-10 17:40] LABS: Bedside Glucose 183 mg/dL (70-110)
[2021-05-10] MEDS: LORazepam 2 MG/ML Bottle 1 MG PO ×2 (18:57→20:55)
[2021-05-10] MEDS: morphine (oral solution) 10MG/0.5ML Syringe 10 MG SL/PO (19:29)
[2021-05-10] MEDS: OLANZapine 2.5 MG Tablet 5 MG PO (20:53)
[2021-05-10 21:05] LABS: Bedside Glucose 196 mg/dL (70-110)
[2021-05-11] MEDS: morphine (oral solution) 10MG/0.5ML Syringe 10 MG SL/PO ×2 (00:12→04:16)
[2021-05-11] MEDS: LORazepam 2 MG/ML Bottle 1 MG PO ×3 (00:13→04:18)
[2021-05-11 04:09] VITALS: BP 139/76; PULSE 76; RESP 16; TEMP 36.4; O2SAT 100
[2021-05-11] MEDS: Lactulose 20 GM/30 ML UDC PO (05:31)
[2021-05-11] MEDS: Levothyroxine 175 MCG Tablet PO (05:31)
[2021-05-11 06:25] LABS: Bedside Glucose 115 mg/dL (70-110)
[2021-05-11 07:28] LABS: Absolute Lymphocyte Count 0.27 X10^3/uL (0.83-4.51); Absolute Neutrophil Count 1.7 X10^3/uL (2.0-7.7); Hematocrit 22.1 % (40-54); Lymphocyte # 0.27 X10^3/ul (0.83-4.51); Mean Corp Hgb Conc 31.7 g/dL (32-36); Mean Corpuscular Hgb 31.4 pg (27.0-32.0); Mean Corpuscular Volume 99.1 fL (80-94); Mean Platelet Vol. 9.6 fl (6.2-12.0); Monocyte# 0.23 X10^3/uL; Monocyte% 10.2 % (0-10); NRBC Flagged by Analyzer 1.3 % (0-5); Neutrophil # 1.69 X10^3/uL (2.7-7.7); Neutrophil % 75.1 % (47-70); POSITIVE COUNT YES; POSITIVE DIFFERENTIAL YES; Platelet Count 35 K/mm3 (150-450); RBC Distribution Width CV 16.2 % (11.6-14.6); RBC Distribution Width SD 57.9 fl (35.1-43.9); Red Blood Count 2.23 M/mm3 (4.6-6.2); White Blood Count 2.3 K/mm3 (4.4-11.0)
[2021-05-11 07:30] LABS: Differential Indicated SCAN CRITERIA MET
[2021-05-11 07:58] LABS: Burr Cells 1+; Hypochromasia 3+; Platelet Estimate MKD DEC (ADEQ)
[2021-05-11 07:59] LABS: Microcytosis RARE
--- NOTE | 2021-05-11 10:10 | NURSING ---
Spoke with Hector at [facility], aware that patient is medically ready for discharge today. Hector will reach out to his geothermal plant manager for any further concerns and will call back to ms3.
--- NOTE | 2021-05-11 10:32 | PCM.TXEXTCAR ---
Diet 05/08/21 14:30 Diet: Cardiac - Heart Healthy Dietary Modifications:: Sodium Restricted Is pt able to select menu?: No Fluid restriction:: 1500 mL Routine Orders/Code Status Code Status: DNRCC-A (no intubation) Therapies Weight Bearing: Full weight bearing Problem/Diagnosis (1) Anemia: Status: Acute (2) COVID-19: Status: Acute (3) Encephalopathy, hepatic: Status: Acute Allergies/Procedures Done in Hospital Allergies Penicillins Allergy (Verified 03/28/21 11:56) Anaphylaxis ciprofloxacin [From Cipro] Adverse Reaction (Verified 03/28/21 11:56) Other Type of Care/Length of Stay Estimated LOS: Convalescent Care Less Than 30 days Type of Care Needed: Skilled Rehab Potential: Poor Prognosis: Poor Additional Orders/Day of Discharge Additional Orders: Hospice Consult. Self isolate for at least 20 days since symptoms began (quarantine through 05/29/2021) AND at least one day (24 hours) have passed since resolution of fever without the use of fever-reducing agents AND improvement of symptoms (e.g., cough, shortness of breath) When around people in the same room, wear a face mask. Individuals also in the room should wear a mask. If possible, use a different bathroom and bedroom. Perform adequate hand hygiene. Avoid sharing dishes, glasses, etc. Day of Discharge: 05/11/21 Dietary and Speech Recommendations Dietitian Recommendations/Changes: Will adjust diet to Cardiac/Sodium-Restricted with 1500ml FR. No oral nutrition supplements due to high ammonia---monitor need to further restrict dietary protein. Discharge Plan Admission Admit Date/Time: 05/08/21 08:23 Primary Reason for Your Visit: hepatic encephalopathy Attending Provider: Steven Montaño Primary Care Provider: Jody Branch NP Consulting Providers: Debbie Monique ; Anastacio Mariscal ; Joana Nieto ; Tram Rose ; Lindsey Roach ; Stacey Langley QUALITY CONTROL CLERK Discharge Orders/Prescriptions Prescriptions: New lorazepam 2 mg/mL Concentrate 1 mg PO Q2H PRN PRN (Reason: Agitation) 3 Days Qty: 30 RF: 0 morphine concentrate 10 mg/0.5 mL Syringe 10 mg PO/SL Q4H PRN PRN (Reason: Pain Score 6-10) 3 Days Qty: 3 RF: 0 Continued albuterol sulfate 1 INHALER inhaler 1 puff inhalation Q4H PRN PRN (Reason: Sob &/Or Wheezing) RF: 0 nicotine 14 mg/24 hr Patch 24 Hour 1 patch TRANSDERMAL Q24H RF: 0 lidocaine [Lidocaine Pain Relief] 4 % Adhesive Patch,Medicated 1 patch TOPICAL DAILY PRN (Reason: Pain) RF: 0 olanzapine 5 mg Tablet 5 mg PO QHS RF: 0 Dulera 100-5 mcg/actuation Hfa Aerosol Inhaler 2 puff INHALATION DAILY RF: 0 lactulose 10 gram/15 mL Solution 30 ml PO TID RF: 0 rifaximin 550 mg Tablet 550 mg PO BID RF: 0 ondansetron 4 mg Film 4 mg PO Q6H PRN (Reason: Nausea) RF: 0 aluminum-magnesium hydroxide 225-200 mg/5 mL Suspension 30 ml PO Q4H PRN PRN (Reason: gi distress) RF: 0 Discontinued thiamine HCl (vitamin B1) 100 mg Tablet 100 mg PO DAILY RF: 0 tamsulosin 0.4 mg Capsule 0.4 mg PO DAILY RF: 0 folic acid 1 mg Tablet 1 mg PO DAILY RF: 0 furosemide 20 mg Tablet 20 mg PO DAILY RF: 0 Spiriva with HandiHaler 18 mcg Capsule, W/Inhalation Device 1 cap INHALATION BID RF: 0 gabapentin 400 mg Tablet 400 mg PO QHS RF: 0 levothyroxine 175 mcg Capsule 175 mcg PO DAILY RF: 0 acetaminophen 325 mg Tablet 650 mg PO Q4H PRN (Reason: Fever) RF: 0 pantoprazole 40 mg Tablet,Delayed Release (Dr/Ec) 40 mg PO BID RF: 0 gabapentin 300 mg Capsule 300 mg PO BID RF: 0 oxycodone [OxyIR] 5 mg Capsule 10 mg PO Q6H PRN (Reason: Pain) RF: 0 insulin lispro [Humalog KwikPen Insulin] 100 unit/mL Insulin Pen See Protocol unit SUBCUT BIDCM RF: 0 bisacodyl 10 mg Suppository 10 mg CA DAILY PRN (Reason: Constipation) RF: 0 Fleet Enema 19-7 gram/118 mL Enema 118 ml CA DAILY PRN (Reason: Constipation) RF: 0 guaifenesin 200 mg/5 mL Liquid 200 mg PO Q4H PRN (Reason: Cough) RF: 0 Referrals / Follow Up: Jody Branch NP, QUALITY CONTROL CLERK-C [Primary Care Provider] - Disposition Disposition (needs filled in before D/C Order can be placed): Long Term Facility
--- NOTE | 2021-05-11 11:41 | PCM.DC.SUM ---
Providers Date of Admission: 05/08/21 Primary Care Physician: TEGAN Calvo Consultations 05/10/21 10:47 Consult: Hospice / Palliative Care Routine Consulting Provider: [facility] Reason for Consult: cirrhosis EMERGENT Consult: No MD Notified: Yes Date Notified: 05/10/21 Time Notified: 11:53 Method of Notification: nurse nutrition intern Reason For Visit: HEPATIC ENCEPHALOPATHY, COVID-19, HYPOXIA Diagnosis Discharge Diagnosis (1) Anemia: Status: Acute Code(s): D64.9 - Anemia, unspecified Qualifiers: Anemia type: other cause Other causes of anemia: other cause, not classified Qualified Code(s): D64.89 - Other specified anemias (2) COVID-19: Status: Acute Code(s): U07.1 - COVID-19 (3) Encephalopathy, hepatic: Status: Acute Code(s): K72.90 - Hepatic failure, unspecified without coma Medications at Discharge Home Medications albuterol sulfate 1 puff INHALATION Q4H PRN PRN 02/27/17 Dulera 2 puff INHALATION DAILY 05/08/21 aluminum-magnesium hydroxide 30 ml PO Q4H PRN PRN 05/08/21 lactulose 30 ml PO TID 05/08/21 lidocaine [Lidocaine Pain Relief] 1 patch TOPICAL DAILY PRN 05/08/21 nicotine 1 patch TRANSDERMAL Q24H 05/08/21 olanzapine 5 mg PO QHS 05/08/21 ondansetron 4 mg PO Q6H PRN 05/08/21 rifaximin 550 mg PO BID 05/08/21 lorazepam 1 mg PO Q2H PRN PRN 3 Days #30 ml 05/11/21 morphine concentrate 10 mg PO/SL Q4H PRN PRN 3 Days #3 ea 05/11/21 Hospital Course Operations None Procedures None Summary of Care Provided Minutes Spent on Discharge: 35 Hospital Course: Is a 56-year-old male presents with confusion. Found to have hepatic encephalopathy due to ammonia level of 151. Started on lactulose and resumed on his rifaximin. Mental status improved overall. Patient still remained agitated at times. When patient did have period of more lucidity was able to address his CODE STATUS and he was to be DNR Comfort Care arrest no intubation. Discussed also with his and hospice did evaluate the patient. So the plan is for the patient to [facility] with hospice services. 1. Acute hepatic encephalopathy improved, but still confused overall Admission ammonia is 151 Continue lactulose and rifaxamin 2. COVID-19 Unvaccinated Onset unclear so we will take this as day 0 and patient will need to quarantine through through May 29 Dexamethasone No remdesivir given cirrhosis 3. Alcoholic cirrhosis Last drink was [place] Meld score of 21, child Pruett score of grade C Patient has had TIPS for varices which complicates this hepatic encephalopathy 4. Hepatorenal syndrome type II monitor 5. Ascites mild at this time monitor, no need for paracentesis at this time. 6. DM2 continue basal insulin SSI 7. Anemia 2/2 cirrhosis Hg 5.9 Will transfuse 1 unit at this time. 8. VTE prophylaxis: SCDs. no chemical prophylaxis given anemia and thrombocytopenia 9. CODE STATUS: Addressed with the patient on the . DNR Comfort Care arrest no intubation. Physical Exam Const Constitutional Narrative: confused Resp normal respiratory effort, no retractions, no use of accessory muscles and clear to auscultation bilaterally Cardio regular rate, regular rhythm, S1 normal heart sound and S2 normal heart sound GI normal to inspection, nondistended, normoactive bowel sounds, soft to palpation, non-tender and non-distended Extremity normal to inspection and full ROM Weight / BMI Weight Weight: 90.7 kg Body Mass Index (BMI) 27.8 ABG / Lab / Microbiology Data Result Diagrams: 05/11/21 07:15 05/10/21 06:10 Laboratory: Laboratory Results - last 24 hr 05/09/21 07:06: Blood Type B POSITIVE, Antibody Screen POSITIVE H, Antibody Identification ANTI-E, Antigen Identification E ANTIGEN - NEGATIVE, Crossmatch See Detail 05/10/21 13:18: POC Glucose 137 H 05/10/21 17:13: POC Glucose 183 H 05/10/21 20:51: POC Glucose 196 H 05/11/21 06:20: POC Glucose 115 H 05/11/21 07:15: WBC 2.3 L, RBC 2.23 L, Hgb 7.0 L, Hct 22.1 L, MCV 99.1 H, MCH 31.4, MCHC 31.7 L, RDW Std Deviation 57.9 H, RDW Coeff of Phylicia 16.2 H, Plt Count 35 L*, MPV 9.6, Immature Gran % (Auto) 2.700 H, Neut % (Auto) 75.1 H, Lymph % (Auto) 12.0 L, [place] % (Auto) 10.2 H, Eos % (Auto) 0.0, Baso % (Auto) 0.0, Absolute Neuts (auto) 1.7 L, Absolute Lymphs (auto) 0.27 L, Nucleated RBC % 1.3, Diff Path Review May foll, Platelet Estimate MKD DEC, Hypochromasia 3+, Microcytosis RARE, [place] Cells 1+ Microbiology: Microbiology 05/08/21 07:27 Blood Culture (Wb) - Left Hand Blood Culture - Preliminary No growth in 48 hours. 05/08/21 07:09 Blood Culture (Wb) - Anticubital Right Blood Culture - Preliminary No growth in 48 hours. 05/08/21 07:40 Urine Catheter - Catheter Urine Culture - Final Culture exhibits no growth. 05/08/21 10:00 Urine Catheter - Catheter Legionella Antigen - Final 05/08/21 10:00 Urine Catheter - Catheter Streptococcus pneumoniae Antigen (M - Final 05/08/21 07:10 Nasal Secretion SARS-CoV-2 Antigen (Rapid) - Final SARS-CoV-2 (COVID 19) D/C Instructions Discharge Diet: No restrictions Meaningful Use Info Meaningful Use Diagnoses (Choose all that apply): None applicable Discharge Plan Admission Admit Date/Time: 05/08/21 08:23 Primary Reason for Your Visit: hepatic encephalopathy Attending Provider: Steven Montaño Primary Care Provider: Jody Branch NP Consulting Providers: Debbie Monique ; Anastacio Mariscal ; Joana Nieto ; Tram Rose ; Lindsey Roach ; Stacey Langley MANUFACTURING QUALITY TECHNICIAN Discharge Orders/Prescriptions Prescriptions: New lorazepam 2 mg/mL Concentrate 1 mg PO Q2H PRN PRN (Reason: Agitation) 3 Days Qty: 30 RF: 0 morphine concentrate 10 mg/0.5 mL Syringe 10 mg PO/SL Q4H PRN PRN (Reason: Pain Score 6-10) 3 Days Qty: 3 RF: 0 Continued albuterol sulfate 1 INHALER inhaler 1 puff inhalation Q4H PRN PRN (Reason: Sob &/Or Wheezing) RF: 0 nicotine 14 mg/24 hr Patch 24 Hour 1 patch TRANSDERMAL Q24H RF: 0 lidocaine [Lidocaine Pain Relief] 4 % Adhesive Patch,Medicated 1 patch TOPICAL DAILY PRN (Reason: Pain) RF: 0 olanzapine 5 mg Tablet 5 mg PO QHS RF: 0 Dulera 100-5 mcg/actuation Hfa Aerosol Inhaler 2 puff INHALATION DAILY RF: 0 lactulose 10 gram/15 mL Solution 30 ml PO TID RF: 0 rifaximin 550 mg Tablet 550 mg PO BID RF: 0 ondansetron 4 mg Film 4 mg PO Q6H PRN (Reason: Nausea) RF: 0 aluminum-magnesium hydroxide 225-200 mg/5 mL Suspension 30 ml PO Q4H PRN PRN (Reason: gi distress) RF: 0 Discontinued thiamine HCl (vitamin B1) 100 mg Tablet 100 mg PO DAILY RF: 0 tamsulosin 0.4 mg Capsule 0.4 mg PO DAILY RF: 0 folic acid 1 mg Tablet 1 mg PO DAILY RF: 0 furosemide 20 mg Tablet 20 mg PO DAILY RF: 0 Spiriva with HandiHaler 18 mcg Capsule, W/Inhalation Device 1 cap INHALATION BID RF: 0 gabapentin 400 mg Tablet 400 mg PO QHS RF: 0 levothyroxine 175 mcg Capsule 175 mcg PO DAILY RF: 0 acetaminophen 325 mg Tablet 650 mg PO Q4H PRN (Reason: Fever) RF: 0 pantoprazole 40 mg Tablet,Delayed Release (Dr/Ec) 40 mg PO BID RF: 0 gabapentin 300 mg Capsule 300 mg PO BID RF: 0 oxycodone [OxyIR] 5 mg Capsule 10 mg PO Q6H PRN (Reason: Pain) RF: 0 insulin lispro [Humalog KwikPen Insulin] 100 unit/mL Insulin Pen See Protocol unit SUBCUT BIDCM RF: 0 bisacodyl 10 mg Suppository 10 mg NE DAILY PRN (Reason: Constipation) RF: 0 Fleet Enema 19-7 gram/118 mL Enema 118 ml NE DAILY PRN (Reason: Constipation) RF: 0 guaifenesin 200 mg/5 mL Liquid 200 mg PO Q4H PRN (Reason: Cough) RF: 0 Referrals / Follow Up: Jody Branch NP, MANUFACTURING QUALITY TECHNICIAN-C [Primary Care Provider] - Disposition Disposition (needs filled in before D/C Order can be placed): [facility] Facility Charges/Coding Visit Charges Inpatient E&M: 26624 Disch Hosp
[2021-05-11 12:20] VITALS: BP 136/97; PULSE 78; RESP 18; TEMP 36.6; O2SAT 98
[2021-05-11] MEDS: dexAMETHasone 10 MG/ML Vial 6 MG IV (12:27)
[2021-05-11] MEDS: 0.9% Saline Lock 10 ML Syringe IV (12:28)
--- NOTE | 2021-05-11 12:30 | NURSING ---
Report called to Hector at [facility]. , Avani also updated on transport time.
[2021-05-12 09:11] LABS: Pathologist Review Reviewed
[2021-05-13 10:03] LABS: Pathologist Review Reviewed
[2021-05-13 10:04] LABS: Pathologist Review Reviewed
== END 2021-05-11 13:12 | DRG 177 ==
LOC: ED 08:09 → MS3 09:40
PROVIDERS: Emergency Provider Emergency Medicine; PCP Nurse Practitioner Adult Health
DX: U07.1 COVID-19 (principal); K76.7 Hepatorenal syndrome; K72.00 Acute and subacute hepatic failure without coma; K70.31 Alcoholic cirrhosis of liver with ascites; D69.6 Thrombocytopenia, unspecified; E11.22 Type 2 diabetes mellitus with diabetic chronic kidney disease; D64.89 Other specified anemias; Z79.4 Long term (current) use of insulin; J44.9 Chronic obstructive pulmonary disease, unspecified; E78.5 Hyperlipidemia, unspecified; F17.210 Nicotine dependence, cigarettes, uncomplicated; N18.2 Chronic kidney disease, stage 2 (mild); R09.02 Hypoxemia; Z66 Do not resuscitate
CPT/HCPCS: 36415; 51702; 71045; 80053; 81001; 82140; 82962; 83605; 84484; 85025; 85610; 86850; 86870; 86900; 86901; 86902; 86905; 86920; 86922; 87040; 87086; 87426; 87449; 93005; 99285; 99406; J7030; J7040; J7050; P9016; A4216; J2916

== ENCOUNTER 2021-05-11 15:01 | Emergency (ER) | payer BC, MEDICARE, SELFPAY ==
[2021-05-11 15:01] VITALS: BP 142/98; PULSE 67; RESP 10; TEMP 36.1; O2SAT 97; BMI 29.6
--- NOTE | 2021-05-11 15:14 | CT_ITS ---
INDICATION: fall EXAMINATION: CT BRAIN - CT Head or Brain W/O Contrast Injection TECHNIQUE: Multiple axial images were obtained of the head without intravenous contrast. A radiation dose optimization technique was used for this scan. IV Contrast dosage and agent: None. COMPARISON: No previous for comparison FINDINGS: FINDINGS: HEMISPHERES: 1. The cerebral parenchyma, ventricular system, subarachnoid spaces have normal configuration. 2. Minimal involutional change, hemispheric white matter has normal appearance. 3. No intraparenchymal mass, hemorrhage, or acute territorial infarct. CEREBELLUM - BRAINSTEM: The cerebellum, brainstem, basilar and suprasellar cisterns have normal appearance. No Chiari malformation. PITUITARY: Infundibulum and pituitary have normal configuration. Midline structures appear normal. CSF SPACES: Appropriate for age. No hydrocephalus. Basal cisterns are patent. VESSELS: 1. No significant vascular calcifications in the cavernous carotid vessels. 2. No hyperdense vascular signs noted.. ORBITS AND PARANASAL SINUSES: 1. Normal appearance of the bony orbits. Normal appearance of the globes and retrobulbar soft tissues.. 2. Chronic appearing mucosal thickening LEFT maxillary antrum, remaining paranasal sinuses are clear. No fluid or blood in the paranasal sinuses middle ear cavities or mastoid air cells. BONY ELEMENTS: Bony elements of the cranial vault, facial skeleton and skull base have normal appearance. SCALP AND SOFT TISSUES: Normal appearance of the soft tissues of the scalp and the visualized face OTHER: None ASPECTS Score for Acute Strokes: 10 CT/Brain/Head without Contrast IMPRESSION: 1. Minimal involutional changes. No intracranial mass, hemorrhage, or acute territorial infarct. 2. No intracranial evidence of acute traumatic injury. 3. Chronic appearing sinus disease involving the LEFT maxillary antrum. 4. No evidence of fluid or blood in the paranasal sinuses middle ear cavities or mastoid air cells. No fractures noted Electronically Signed: Chandu Sheridan MD at 16:00 EST Tel , Service support ,
--- NOTE | 2021-05-11 15:14 | EKG12_ITS ---
Test Reason : UNRESPONSIVE Blood Pressure : / mmHG Vent. Rate : 065 BPM Atrial Rate : 065 BPM P-R Int : 146 ms QRS Dur : 090 ms QT Int : 412 ms P-R-T Axes : 021 007 019 degrees QTc Int : 428 ms Normal sinus rhythm Normal ECG Confirmed by JENNIFER TANNER, IAM ([id number]), loan expeditor JEANIE ARCEO ([id number]) on 05/13/2021 9:47:42 AM Referred By: DAMIAN Confirmed By:IAM RODRIGUEZ MD
[2021-05-11 15:28] LABS: Absolute Lymphocyte Count 0.43 X10^3/uL (0.83-4.51); Absolute Neutrophil Count 2.6 X10^3/uL (2.0-7.7); Hemoglobin 8.2 g/dL (13.0-16.5); Lymphocyte # 0.43 X10^3/ul (0.83-4.51); Lymphocyte % 12.9 % (19-41); Mean Corp Hgb Conc 32.8 g/dL (32-36); Mean Corpuscular Hgb 31.1 pg (27.0-32.0); Mean Corpuscular Volume 94.7 fL (80-94); Mean Platelet Vol. 9.7 fl (6.2-12.0); Monocyte# 0.21 X10^3/uL; Monocyte% 6.3 % (0-10); NRBC Flagged by Analyzer 0.6 % (0-5); Neutrophil # 2.64 X10^3/uL (2.7-7.7); Neutrophil % 79.3 % (47-70); POSITIVE COUNT YES; POSITIVE DIFFERENTIAL YES; RBC Distribution Width SD 55.1 fl (35.1-43.9); Red Blood Count 2.64 M/mm3 (4.6-6.2); White Blood Count 3.3 K/mm3 (4.4-11.0)
[2021-05-11 15:31] LABS: International Normalized Ratio 1.5; Partial Thromboplast Time 35.5 Seconds (24.1-36.2); Prothrombin Time (Protime)PT. 17.6 SECONDS (11.7-14.9)
[2021-05-11 15:32] VITALS: PULSE 76; RESP 9
[2021-05-11 15:35] LABS: Anion Gap 7 (5-15); BUN 38 mg/dL (7-18); BUN/Creat Ratio 23.2 RATIO (10-20); Calcium,Total 9.3 mg/dL (8.5-10.1); Chloride 114 mmol/L (98-107); Creatinine, Serum 1.64 mg/dL (0.70-1.30); EST Glomerular Filtration Rate 47 mL/min (>60); Est Glom Filt Rate - Afr Amer 57 mL/min (>60); Estimated Creatinine Clearance 49.82 ml/min; Glucose 141 mg/dL (74-106); Potassium 4.3 mmol/L (3.5-5.1); Sodium Level 147 mmol/L (136-145)
[2021-05-11] MEDS: Ipratropium/Albuterol Sulfate 3 ML AMPUL.NEB INHALATION (15:35)
--- NOTE | 2021-05-11 15:38 | RAD_ITS ---
INDICATION: sob EXAMINATION/TECHNIQUE: X-RAY - XR Chest 1 View COMPARISON: 05/08/2021 FINDINGS: LIFE-SUPPORT AND LINES: 1. None HEART AND VESSELS: Cardiac silhouette is unchanged. No evidence congestive failure. LUNGS AND PLEURAL SPACES: Shallow inspiration crowding of bronchovascular markings however no infiltrate consolidation or effusion noted. No pulmonary mass is noted. MEDIASTINUM AND HILAR REGIONS: No masses adenopathy noted. No areas of calcification. Visualized upper airway is normal in position. BONY ELEMENTS: No acute bony changes noted. RAD/Chest 1 View (Portable) IMPRESSION: 1. Shallow aspiration with crowding of bronchovascular markings. No focal infiltrate, consolidation, congestive failure or effusion. Electronically Signed: Chandu Sheridan MD at 15:54 EST Tel , Service support ,
[2021-05-11 15:53] LABS: Platelet Count 43 K/mm3 (150-450)
[2021-05-11 15:54] LABS: Differential Indicated SCAN CRITERIA MET
[2021-05-11 15:56] LABS: Anisocytosis 1+; Hypochromasia 1+; Macrocytosis 1+; Platelet Estimate MKD DEC (ADEQ); Red Cell Morphology N CHROM NORMAL (NORM C&C)
[2021-05-11 16:38] VITALS: BP 123/87; PULSE 73; RESP 7; O2SAT 97
--- NOTE | 2021-05-11 17:31 | EX.ED.DYSGE1 ---
HPI History of Present Illness Chief Complaint: Alt LOC Informant: EMS Narrative Narrative: Patient presents after fall at [facility]. Patient was discharged from the hospital today to local retirement. Hospice was supposed to be seeing him there. Reportedly patient was placed into the bed at the [facility]. The nurse left to get a wheelchair for another patient when she came back the patient was on the floor. He has decreased level of consciousness. There is dried blood noted on his face. On review of records the patient had been seen with elevated ammonia levels. He has a history of cirrhosis and alcoholic hepatitis. In review of the notes from upstairs patient has had decreased level of consciousness with intermittent agitation. Nursing staff spoke with the floor and it appears that his mental status now is consistent with what he has been. I spoke with the patient's on the phone. She also confirms that he has not been awake and verbal. We discussed DNR status. At this time he will remain DNR CCA no intubation. does note that hospice is currently at her house and they are getting ready to go through paperwork. [facility] Medical History Alcohol use Ascites Cirrhosis CKD (chronic kidney disease) stage 2, GFR 60-89 ml/min COPD (chronic obstructive pulmonary disease) CRF (chronic renal failure) Diabetes mellitus, type II EtOH dependence Fatty liver Gout Hepatic cirrhosis History of positive PPD, untreated HLD (hyperlipidemia) Hyperuricemia Macrocytic anemia Nicotine dependence Pancytopenia Portal hypertension with esophageal varices Thrombocytopenia Home Medications albuterol sulfate 1 puff INHALATION Q4H PRN PRN 02/27/17 [History Last Taken 05/07/19] Dulera 2 puff INHALATION DAILY 05/08/21 [History Last Taken Unknown] aluminum-magnesium hydroxide 30 ml PO Q4H PRN PRN 05/08/21 [History Last Taken Unknown] lactulose 30 ml PO TID 05/08/21 [History Last Taken Unknown] lidocaine [Lidocaine Pain Relief] 1 patch TOPICAL DAILY PRN 05/08/21 [History Last Taken Unknown] nicotine 1 patch TRANSDERMAL Q24H 05/08/21 [History Last Taken Unknown] olanzapine 5 mg PO QHS 05/08/21 [History Last Taken Unknown] ondansetron 4 mg PO Q6H PRN 05/08/21 [History Last Taken Unknown] rifaximin 550 mg PO BID 05/08/21 [History Last Taken Unknown] lorazepam 1 mg PO Q2H PRN PRN 3 Days #30 ml 05/11/21 [Rx Last Taken Unknown] morphine concentrate 10 mg PO/SL Q4H PRN PRN 3 Days #3 ea 05/11/21 [Rx Last Taken Unknown] Allergy/AdvReac Type Severity Reaction Status Date / Time Penicillins Allergy Anaphylaxis Verified 05/11/21 16:07 ciprofloxacin [From Cipro] AdvReac Other Verified 05/11/21 16:07 Family History Mother Cancer lung cancer Hypertension ETOH abuse Heart disease Brother Kidney disease Surgical History S/P TIPS (transjugular intrahepatic portosystemic shunt) Social History Smoking Status: Current every day smoker tobacco type: cigarettes Tobacco: How many years used: 44 alcohol intake: current alcohol intake frequency: 3 or more drinks per day Alcohol type: beer ROS ROS ED Review of Systems ROS Unobtainable: due to mental condition EXAM Physical Exam Narrative Exam Narrative: Patient will raise his eyebrows to voice but will not open his eyes. He will open eyes to command. When asked to move his left arm he would not follow through. He would mumble I was thinking about it. Const Vital Signs: 05/11/21 15:01 05/11/21 15:20 05/11/21 15:32 Temperature 97 F L Temperature Source Temporal Pulse Rate 67 76 Respiratory Rate 10 L 9 L Respiratory Effort Non-Labored Blood Pressure 142/98 H Blood Pressure Mean 112 Pulse Ox 97 Oxygen Delivery Method Room Air 05/11/21 16:38 Temperature Temperature Source Pulse Rate 73 Respiratory Rate 7 L Respiratory Effort Blood Pressure 123/87 H Blood Pressure Mean 99 Pulse Ox 97 Oxygen Delivery Method Room Air Positive well nourished and well developed General Appearance ED: well developed HEENT HEENT Narrative: Pupils 2 mm bilaterally. Dried blood noted on the right side of the face. No blood noted in the nares. Intraoral examination unremarkable. Neck no lymphadenopathy and supple Chest Wall inspection of chest normal and palpation of chest normal Resp normal respiratory effort and clear to auscultation bilaterally Cardio regular rate and regular rhythm GI non-tender Palpation: soft Extremity Extremity Narrative: Large ecchymotic area noted to the lateral left hip. This appears old. Psych Psych Narrative: Sleeping with eyes closed. Will open eyes to voice command. MDM MDM MDM Narrative Medical decision making narrative: Lab work and head CT obtained. Lab Data Attestation: I reviewed the patient's lab results. Labs: Laboratory Results - last 24 hr 05/11/21 05/11/21 05/11/21 15:10 15:10 15:10 WBC 3.3 L RBC 2.64 L Hgb 8.2 L Hct 25.0 L MCV 94.7 H MCH 31.1 MCHC 32.8 RDW Std Deviation 55.1 H RDW Coeff of Phylicia 16.0 H Plt Count 43 L* MPV 9.7 Immature Gran % (Auto) 1.500 H Neut % (Auto) 79.3 H Lymph % (Auto) 12.9 L Nuckolls % (Auto) 6.3 Eos % (Auto) 0.0 Baso % (Auto) 0.0 Absolute Neuts (auto) 2.6 Absolute Lymphs (auto) 0.43 L Nucleated RBC % 0.6 Differential Comment SEE COMMENT Platelet Estimate MKD DEC RBC Morphology N CHROM Hypochromasia 1+ Anisocytosis 1+ Macrocytosis 1+ PT 17.6 H INR 1.5 APTT 35.5 Sodium 147 H Potassium 4.3 Chloride 114 H Carbon Dioxide 26.0 Anion Gap 7 BUN 38 H Creatinine 1.64 H Estim Creat Clear Calc 49.82 Est GFR (MDRD) Af Amer 57 L Est GFR (MDRD) Non-Af 47 L BUN/Creatinine Ratio 23.2 H Glucose 141 H Calcium 9.3 Radiography Chest X-Ray - ED: 1 View, Read by ED Physician and Chronic Changes Diagnostic Testing: Clinical Impression(s) from Imaging Studies Brain CT 05/11/21 15:14 IMPRESSION: 1. Minimal involutional changes. No intracranial mass, hemorrhage, or acute territorial infarct. 2. No intracranial evidence of acute traumatic injury. 3. Chronic appearing sinus disease involving the LEFT maxillary antrum. 4. No evidence of fluid or blood in the paranasal sinuses middle ear cavities or mastoid air cells. No fractures noted Electronically Signed: Chandu Sheridan MD at 16:00 EST Tel , Service support , Chest X-Ray 05/11/21 15:38 IMPRESSION: 1. Shallow aspiration with crowding of bronchovascular markings. No focal infiltrate, consolidation, congestive failure or effusion. Electronically Signed: Chandu Sheridan MD at 15:54 EST Tel , Service support , EKG Initial EKG: Attestation: I personally reviewed and interpreted this EKG as follows: Interpretation: Sinus Rhythm (Sinus at 65 with no acute ischemia.) Treatment and Re-Evaluation Comments:: Lab work not significantly changed from prior. He has chronic anemia with a hemoglobin of 8.2. Platelet count is 43,000. Chemistry studies reveal creatinine 1.64. Head CT shows no acute findings. Chest x-ray reveals no focal infiltrate. Patient was given a DuoNeb treatment here for wheezing. HEALTH EDUCATION AIDE did check the patient's scalp. There is an abrasion posteriorly with no laceration. We were notified by hospice that the has signed all the paperwork necessary for hospice care. At this time he is qualifying for inpatient hospice. Plan will be to discharge to the inpatient hospice unit. Discharge Plan Triage Chief Complaint: Alt LOC ED Provider: Elham Downey Dx/Rx/DC Orders Clinical Impression: Fall Prescriptions: No Action albuterol sulfate 1 INHALER inhaler 1 puff inhalation Q4H PRN PRN (Reason: Sob &/Or Wheezing) RF: 0 nicotine 14 mg/24 hr Patch 24 Hour 1 patch TRANSDERMAL Q24H RF: 0 lidocaine [Lidocaine Pain Relief] 4 % Adhesive Patch,Medicated 1 patch TOPICAL DAILY PRN (Reason: Pain) RF: 0 olanzapine 5 mg Tablet 5 mg PO QHS RF: 0 Dulera 100-5 mcg/actuation Hfa Aerosol Inhaler 2 puff INHALATION DAILY RF: 0 lactulose 10 gram/15 mL Solution 30 ml PO TID RF: 0 rifaximin 550 mg Tablet 550 mg PO BID RF: 0 ondansetron 4 mg Film 4 mg PO Q6H PRN (Reason: Nausea) RF: 0 aluminum-magnesium hydroxide 225-200 mg/5 mL Suspension 30 ml PO Q4H PRN PRN (Reason: gi distress) RF: 0 lorazepam 2 mg/mL Concentrate 1 mg PO Q2H PRN PRN (Reason: Agitation) 3 Days Qty: 30 RF: 0 morphine concentrate 10 mg/0.5 mL Syringe 10 mg PO/SL Q4H PRN PRN (Reason: Pain Score 6-10) 3 Days Qty: 3 RF: 0 Primary Care Provider: Jody Branch NP Referrals: Jody Branch NP, [facility] [Primary Care Provider] - Disposition Disposition: Transfer to Another Type HCF
[2021-05-11 17:55] VITALS: BP 121/87; PULSE 75; RESP 8; O2SAT 91
[2021-05-13 10:04] LABS: Pathologist Review Reviewed
== END 2021-05-11 18:36 | disposition other institution (70) ==
PROVIDERS: Emergency Provider Emergency Medicine; PCP Nurse Practitioner Adult Health; Visit Provider Emergency Medicine
DX: R40.4 Transient alteration of awareness (principal); J44.9 Chronic obstructive pulmonary disease, unspecified; N18.2 Chronic kidney disease, stage 2 (mild); F17.210 Nicotine dependence, cigarettes, uncomplicated; W19.XXXA Unspecified fall, initial encounter; Z79.899 Other long term (current) drug therapy
CPT/HCPCS: 70450; 71045; 80048; 85025; 85610; 85730; 93005; 94640; 99285; A4216